=== PATIENT | female | born 1950 | race Caucasian/White ===

== ENCOUNTER 2018-02-04 14:48 | Inpatient (IN) | payer MEDICARE, OTHER, SELFPAY ==
[2018-02-04 14:49] VITALS: BP 133/80; PULSE 98; RESP 16; TEMP 36.8; O2SAT 98; BMI 31.1
--- NOTE | 2018-02-04 15:10 | RAD_ITS ---
STUDY: X-RAY - RIGHT FOOT CLINICAL: Female, 67 years old. Soft tissue wound involving the first metatarsophalangeal joint. TECHNIQUE: 3 view(s) of the foot. COMPARISON: None. FINDINGS: There is a plantar calcaneal spur. Normal visualized subtalar, talonavicular, calcaneocuboid, tarsal and tarsometatarsal articulations. Normal metatarsi. Normal metatarsophalangeal joint of the great toe. Normal tibial and fibular sesamoid bones. Normal interphalangeal joint of the great toe. Normal phalanges of the great toe. Normal second through fifth metatarsophalangeal joints. Normal interphalangeal joints and phalanges of the lesser toes. Soft tissue swelling overlying the medial aspect of the proximal phalanx of the great toe and dorsal aspect of the foot.. RAD/Foot min 3 Views IMPRESSION: Soft tissue swelling overlying the medial aspect of the proximal phalanx of the great toe and dorsal aspect of the foot. Electronically Signed: Mack Browne MD at 16:07 EDT Tel [phone], Service support ,
--- NOTE | 2018-02-04 15:14 | ED.RN ---
REDDNESS TO RT GREAT TOE YESTERDAY. THIS MORNING TOE SWOLLEN AND SORE.
[2018-02-04 15:44] LABS: Absolute Neutrophil Count 8.3 X10^3/uL (2.0-7.7); Basophil# 0.01 X10^3/uL; Basophil% 0.1 % (0-1); Hematocrit 36.9 % (37-47); Lymphocyte % 10.5 % (19-41); Mean Corp Hgb Conc 29.8 g/gl (32-36); Mean Corpuscular Hgb 24.6 pg (27.0-32.0); Mean Corpuscular Volume 82.4 fL (81-99); Mean Platelet Vol. 8.3 fl (6.2-12.0); Monocyte# 1.04 X10^3/uL; Monocyte% 9.9 % (0-10); Neutrophil # 8.25 X10^3/uL (2.7-7.7); Neutrophil % 78.3 % (47-70); Platelet Count 312 K/mm3 (150-450); RBC Distribution Width CV 15.8 % (11.6-14.6); RBC Distribution Width SD 47.7 fl (35.1-43.9); Red Blood Count 4.48 M/mm3 (4.2-5.4); White Blood Count 10.5 K/mm3 (4.4-11.0)
[2018-02-04 15:54] LABS: Anion Gap 7 (5-15); BUN 12 mg/dL (7-18); BUN/Creat Ratio 16.1 RATIO (10-20); Calcium,Total 9.3 mg/dL (8.5-10.1); Chloride 98 mmol/L (98-107); Creatinine, Serum 0.74 mg/dL (0.55-1.02); EST Glomerular Filtration Rate 82 mL/min (>60); Est Glom Filt Rate - Afr Amer 100 mL/min (>60); Estimated Creatinine Clearance 42.59 ml/min; Glucose 198 mg/dL (74-106); Sodium Level 136 mmol/L (136-145)
[2018-02-04 16:07] LABS: POSITIVE COUNT NO; POSITIVE DIFFERENTIAL NO; POSITIVE MORPHOLOGY NO
--- NOTE | 2018-02-04 16:25 | ED.VISSUMM ---
- ER Visit Summary Date of Service: 02/04/18 Chief Complaint: Right foot redness and pain History of Present Illness: The patient is a 67 F diabetic female who presents with redness swelling and pain of her right foot. She first noticed it yesterday but it is significantly worse today. She has noticed redness pain and swelling over her right foot at the base of the great toe. She has also noted some mild redness overlying the left foot at the base of the great toe as well as over the left elbow. No history of prior similar symptoms. She denies any systemic symptoms such as fevers nausea vomiting diarrhea. She does not recall any injuries. No history of gout. Physical Examination: Afebrile vitals are stable Moist mucous membranes Heart regular rate and rhythm Lungs are clear Abdomen soft Patient has bilateral symmetric pedal edema she has palpable dorsalis pedis pulses there is significant erythema overlying the right first MTP joint and an area of fluctuance concerning for abscess over the medial side of the right great toe and first MTP she does have good short arc range of motion There is mild erythema over the medial left foot and first MTP as well with mild tenderness but active full range of motion brisk capillary refill Mild erythema over the left elbow active full range of motion without pain no swelling Normal right upper extremity Test Results: Laboratory studies notable for CRP of 65.8. White blood cell count normal. ESR and uric acid are pending at the time of this dictation. Right foot x-ray shows soft tissue swelling of the medial side of the proximal phalanx of the great toe and dorsum of the foot Emergency Department Course and Treatment: Patient has a polyarthritis. Given her exam findings at the right first MTP I am concerned for possible septic arthritis. The patient was empirically treated with Zosyn. Cultures were also obtained. I spoke to Dr. Hammond, podiatry ultrasound sonographer who will see the patient in consult and patient will be admitted to the hospitalist service. Treatment Plan: [] Disposition: Admit Impression: Polyarthritis Cellulitis right foot Possible septic arthritis of right first MTP This note was generated with [employer] dictation software. It may contain incorrect words, spelling, and punctuation that were not noted in review of the chart prior to signing ED Disposition - Plan for ED Patient: Chief Complaint: Wound Referrals: Baron Pike Chi, MD [Primary Care Provider] -
[2018-02-04 16:26] LABS: Erythrocyte Sedimentation Rate 42 mm/hr (0-30)
--- NOTE | 2018-02-04 16:28 | PCM.HP.STD ---
Problem List (1) Infectious arthritis Status: Acute (2) Obesity (BMI 30.0-34.9) Status: Chronic (3) ELDER (obstructive sleep apnea) Status: Chronic (4) COPD (chronic obstructive pulmonary disease) Status: Chronic Qualifiers: COPD type: unspecified COPD Qualified Code(s): J44.9 - Chronic obstructive pulmonary disease, unspecified (5) Neuropathic pain Status: Chronic (6) Allergic rhinitis Status: Chronic Qualifiers: Allergic rhinitis trigger: unspecified Allergic rhinitis seasonality: unspecified seasonality Qualified Code(s): J30.9 - Allergic rhinitis, unspecified (7) Asthma Status: Chronic Qualifiers: Asthma severity: unspecified severity Asthma persistence: unspecified Asthma complication type: unspecified Qualified Code(s): J45.909 - Unspecified asthma, uncomplicated (8) Osteoarthritis Status: Chronic Qualifiers: Osteoarthritis location: unspecified site Osteoarthritis type: unspecified Qualified Code(s): M19.90 - Unspecified osteoarthritis, unspecified site (9) Hyperlipidemia Status: Chronic Qualifiers: Hyperlipidemia type: unspecified Qualified Code(s): E78.5 - Hyperlipidemia, unspecified (10) Hypertension Status: Chronic Qualifiers: Hypertension type: essential hypertension Qualified Code(s): I10 - Essential (primary) hypertension (11) Type 2 diabetes mellitus Status: Chronic Qualifiers: 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: with punch press operator use Diabetes mellitus complication status: with unspecified complications Qualified Code(s): E11.8 - Type 2 diabetes mellitus with unspecified complications; Z79.4 - transaction processor (current) use of insulin History of Present Illness Date of Admission: 02/04/18 Chief Complaint: BL 1st MTP redness, pain, edema, L elbow pain The patient is a 67 y/o F w/ PMHx: Obesity, Chronic COPD/Asthma, HTN, HLD, Allergic Rhinitis, ELDER, GERD, Tobacco use who presents to the [facility] ED on 02/04/18 with history of onset over the last 48 hours of initially R 1st MTP edema, pain, redness and mildly fluctuant region followed by onset L 1st MTP redness, pain, edema in addition to L elbow pain although no associated redness or marked edema without fever or chills. In the ED work-up included T 98.3, heart rate 98, BP 133/80, respiratory rate 16, 98% on room air, CBC with WBC 10.5, hemoglobin 11, platelet 312 with left shift, ESR 42, BMP with glucose 198, CRP 65.8, blood culture ?2 pending per ED, Plain film of the foot with soft tissue edema overlying the medial aspect of the proximal phalanx of the great toe and dorsal aspect of the foot. In the ED patient administered Zosyn therapy. In the ED podiatry consulted and planned in ED aspiration of R 1st MTP and I+D of fluctuant region. Past Medical History Past Medical History (Chronic Problems): Chronic Problems (Last Reviewed 11/22/17 @ 13:19 by Sherie Alves) Obesity (BMI 30.0-34.9) (Chronic) HERNANDEZ (dyspnea on exertion) (Chronic) ELDER (obstructive sleep apnea) (Chronic) COPD (chronic obstructive pulmonary disease) (Chronic) Neuropathic pain (Chronic) Allergic rhinitis (Chronic) Asthma (Chronic) Mild asthma (Chronic) Osteoarthritis (Chronic) Hyperlipidemia (Chronic) Hypertension (Chronic) Type 2 diabetes mellitus (Chronic) Allergies No Known Allergies Allergy (Verified 02/04/18 14:51) Home Medications: Ambulatory Orders Medication Instructions Recorded Atorvastatin Calcium [Lipitor] 80 mg PO QHS 01/18/17 Cyanocobalamin [Vitamin B12] 1,000 mcg PO DAILY@0800 01/18/17 Estropipate [Ogen (G)] 0.75 mg PO DAILY 01/18/17 Lisinopril [Prinivil] 10 mg PO DAILY 01/18/17 Montelukast [Singulair] 10 mg PO DAILY 01/18/17 Triamterene 37.5MG/Hctz 25MG 1 cap PO DAILY 01/18/17 [Dyazide (G)] Verapamil HCl [Verapamil ER] 240 mg PO DAILY 01/18/17 gabapentin 300 mg capsule 600 mg PO TID cap 08/23/17 metformin 1,000 mg tablet 1,000 mg PO BIDCM tab 08/23/17 multivitamin tablet 1 tab PO QAM 08/23/17 Glimepiride [Amaryl] 4 mg PO BID 09/18/17 Hydrocodone/Acetaminophen [[place] 1 each PO BID 09/18/17 5-325 Tablet] Loratadine 10 mg PO DAILY 09/18/17 Ibuprofen [Motrin] 800 mg PO TID PRN PRN 02/04/18 Lidocaine [Lidoderm Patch] 1 patch TRANSDERM. DAILY 02/04/18 Methenamine Hippurate 1 tab PO QHS 02/04/18 Novolin N 35 - 40 units SQ DINNER 02/04/18 Omeprazole [Omeprazole] 20 mg PO DAILY 02/04/18 Victoza 1.2 units SQ BREAKFAST 02/04/18 Surgical History: - - Hysterectomy, tonsillectomy, appendectomy, BLTL. 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 Tobacco Use: Non-smoker Alcohol: None Drugs: None - *Family History Maternal History Items: Diabetes, Pulmonary Disease Paternal History Items: - - Patient notes father with possible history of Crohn's disease. Sibling History Items: Diabetes, Heart Disease, - - ELDER Review of Systems Constitutional: Reports: Malaise, Weakness, Fatigue. Denies: Chills, Fever, Weight Change HEENT: Denies: Head Aches, Sinus Congestion, Sinus Drainage Cardiovascular: Denies: Chest Pain, Palpitations Respiratory: Denies: Cough, Shortness of breath at rest, Sputum production Gastrointestinal: Denies: Abdominal Pain, Nausea, Vomiting Genitourinary: Denies: Dysuria Musculoskeletal: Reports: Arm Pain, Foot Pain, Joint stiffness, Joint swelling, Joint Tenderness. Denies: Joint Pain Skin: Reports: Skin Changes. Denies: Rash, Wounds Neurological: Denies: Numbness, Tingling, Focal weakness Psychiatric: Denies: Anxiety, Depression, Homicidal Ideations, Suicidal Ideations Hematologic/ Lymphatic: Denies: Easy Bruising, Easy Bleeding VTE Information - Inpt Only VTE Present on Admission: No VTE Mechan Device Prophylaxis: SCD's VTE Pharm Prophylaxis ordered?: Yes Patient Problems: Active and Suspected Problems (Last Reviewed 11/22/17 @ 13:19 by Sherie Alves) Infectious arthritis (Acute) Subjective: Seated upright in the ED bed, ongoing pain to the extremities. Objective: Physical Examination: General: awake, alert, oriented x 3 and cooperative, seated upright in the ED bed in no apparent distress. Skin: normal color, turgor, no icterus, cyanosis except BL, 1st MTP redness, edema, TTP, R>L, fluctuant region over the R 1st MTP, extremity primarily upper diffuse various staged ecchymoses. HEENT: AT/NC, EOMI, PERRLA, MMM, no carotid bruits or JVD noted. Lungs: CTA bilaterally, moderate effort, mild decrease BL bases, no rales, ronchi or wheezing. Heart: Regular rate and rhythm; no gallop, rub audible. Abdomen: soft, obese, NTTP, ND, normal BS, no HSM. Extremities: no cyanosis, clubbing, see skin, 2+ edema, BL LE ankle to distal barboza, R>L, L elbow TTP and movement, no redness or edema or fluctuance. Neurological: patient awake, alert, oriented x 3; cognitive function intact; pupils equally reactive to light and accomodation; cranial nerves II-XII grossly normal, moving all 4 extremities, no focal deficits, strength moderately globally decreased to severely globally decreased secondary to acute presentation. Psychiatric: affect appears normal, no acute evidence of depressive or anxiety feelings. - Physical Exam Vital Signs Temp Pulse Resp BP Pulse Ox 98.3 F 98 16 133/80 H 98 02/04/18 14:49 02/04/18 14:49 02/04/18 14:49 02/04/18 14:49 02/04/18 14:49 Oxygen Delivery Method Room Air Weight: 170 lb Body Mass Index (BMI) 31.1 Laboratory Tests Past 24 Hrs 02/04/18 02/04/18 15:20 15:20 WBC 10.5 RBC 4.48 Hgb 11.0 L Hct 36.9 L MCV 82.4 MCH 24.6 L MCHC 29.8 L RDW 15.8 H RDW Differential 47.7 H Plt Count 312 MPV 8.3 Immature Gran % (Auto) 0.200 Neut % (Auto) 78.3 H Lymph % (Auto) 10.5 L Wallace % (Auto) 9.9 Eos % (Auto) 1.0 Baso % (Auto) 0.1 Absolute Neuts (auto) 8.3 H Absolute Lymphs (auto) 1.10 Total Counted Not Reportable ESR 42 H Sodium 136 Potassium 4.0 Chloride 98 Carbon Dioxide 31.0 Anion Gap 7 BUN 12 Creatinine 0.74 Estim Creat Clear Calc 42.59 Est GFR (MDRD) Af Amer 100 Est GFR (MDRD) Non-Af 82 BUN/Creatinine Ratio 16.1 Glucose 198 H Calcium 9.3 C-React Prot Ext Range 65.80 H Assessment/Plan Active and Suspected Problems (Last Reviewed 11/22/17 @ 13:19 by Sherie Alves) Infectious arthritis (Acute) The patient is a 67 y/o F w/ PMHx: Obesity, Chronic COPD/Asthma, HTN, HLD, Allergic Rhinitis, ELDER, GERD, Tobacco use who presents to the [facility] ED on 02/04/18 with history of onset over the last 48 hours of initially R 1st MTP edema, pain, redness and mildly fluctuant region followed by onset L 1st MTP redness, pain, edema in addition to L elbow pain although no associated redness or marked edema without fever or chills. (1) Infectious Arthritis, RLE R 1st MTP, L 1st MTP, L Elbow Edema, Redness, Pain complicated by Diabetes mellitus type II, Possible Osteomyelitis: Elevated ESR, CRP, plain film with edema. Pending podiatry aspiration and I+D fluctuant region. Will admit to [facility], maintain on IV vanc and zosyn, requested podiatry to also obtain Wound Cx/MRSA, plan repeat CBC in AM, continue affected extremity elevation above heart when seated and in bed, monitor erythema outline with VS checks, obtain Wound RN consultation, obtain Dr. Hammond consultation, obtain ID consultation, obtain DVT US BL LE. Uric acid pending. (2) Hypertension: Continue home regimen including lisinopril, triamterene, hydrochlorothiazide, verapamil, PRN hydralazine. (3) Hyperlipidemia: Continue home statin regimen. (4) Diabetes mellitus type II w/ neuropathy: Hold oral home regimen, continue home insulin regimen, ADA diet, accu checks w/ ISS, continue home gabapentin regimen, HgbA1c pending. (5) Chronic COPD/Asthma: ATC duonebs, PRN albuterol, HOB, IS parameters, continue home Singulair regimen. (6) Hx Tobacco Abuse: Encouraged continued cessation. (7) Obesity: Weight loss and lifestyle changes encouraged. (8) ELDER: CPAP nightly. (9) DVT Prophylaxis: SCDs, lovenox. Code Visit Inpatient E&M: 53707 Init Hosp L3
--- NOTE | 2018-02-04 16:29 | ED.DCSUM_ITS ---
- ER Visit Summary Date of Service: 02/04/18 Chief Complaint: Right foot redness and pain History of Present Illness: The patient is a 67 F diabetic female who presents with redness swelling and pain of her right foot. She first noticed it yesterday but it is significantly worse today. She has noticed redness pain and swelling over her right foot at the base of the great toe. She has also noted some mild redness overlying the left foot at the base of the great toe as well as over the left elbow. No history of prior similar symptoms. She denies any systemic symptoms such as fevers nausea vomiting diarrhea. She does not recall any injuries. No history of gout. Physical Examination: Afebrile vitals are stable Moist mucous membranes Heart regular rate and rhythm Lungs are clear Abdomen soft Patient has bilateral symmetric pedal edema she has palpable dorsalis pedis pulses there is significant erythema overlying the right first MTP joint and an area of fluctuance concerning for abscess over the medial side of the right great toe and first MTP she does have good short arc range of motion There is mild erythema over the medial left foot and first MTP as well with mild tenderness but active full range of motion brisk capillary refill Mild erythema over the left elbow active full range of motion without pain no swelling Normal right upper extremity Test Results: Laboratory studies notable for CRP of 65.8. White blood cell count normal. ESR and uric acid are pending at the time of this dictation. Right foot x-ray shows soft tissue swelling of the medial side of the proximal phalanx of the great toe and dorsum of the foot Emergency Department Course and Treatment: Patient has a polyarthritis. Given her exam findings at the right first MTP I am concerned for possible septic arthritis. The patient was empirically treated with Zosyn. Cultures were also obtained. I spoke to Dr. Hammond, podiatry youth probation officer who will see the patient in consult and patient will be admitted to the hospitalist service. Treatment Plan: [] Disposition: Admit Impression: Polyarthritis Cellulitis right foot Possible septic arthritis of right first MTP This note was generated with [employer] dictation software. It may contain incorrect words, spelling, and punctuation that were not noted in review of the chart prior to signing ED Disposition - Plan for ED Patient: Chief Complaint: Wound Referrals: Baron Pike Chi, MD [Primary Care Provider] -
--- NOTE | 2018-02-04 16:45 | HP.PCM_ITS ---
Problem List (1) Infectious arthritis Status: Acute (2) Obesity (BMI 30.0-34.9) Status: Chronic (3) ELDER (obstructive sleep apnea) Status: Chronic (4) COPD (chronic obstructive pulmonary disease) Status: Chronic Qualifiers: COPD type: unspecified COPD Qualified Code(s): J44.9 - Chronic obstructive pulmonary disease, unspecified (5) Neuropathic pain Status: Chronic (6) Allergic rhinitis Status: Chronic Qualifiers: Allergic rhinitis trigger: unspecified Allergic rhinitis seasonality: unspecified seasonality Qualified Code(s): J30.9 - Allergic rhinitis, unspecified (7) Asthma Status: Chronic Qualifiers: Asthma severity: unspecified severity Asthma persistence: unspecified Asthma complication type: unspecified Qualified Code(s): J45.909 - Unspecified asthma, uncomplicated (8) Osteoarthritis Status: Chronic Qualifiers: Osteoarthritis location: unspecified site Osteoarthritis type: unspecified Qualified Code(s): M19.90 - Unspecified osteoarthritis, unspecified site (9) Hyperlipidemia Status: Chronic Qualifiers: Hyperlipidemia type: unspecified Qualified Code(s): E78.5 - Hyperlipidemia , unspecified (10) Hypertension Status: Chronic Qualifiers: Hypertension type: essential hypertension Qualified Code(s): I10 - Essential (primary) hypertension (11) Type 2 diabetes mellitus Status: Chronic Qualifiers: Diabetes mellitus mcc insulin use: with mcc use Diabetes mellitus complication status: with unspecified complications Qualified Code(s) : E11.8 - Type 2 diabetes mellitus with unspecified complications; 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 In the ED work-up included T 98.3, heart rate 98 , BP 133/80, respiratory rate 16, 98% on room air, CBC with WBC 10.5, hemoglobin 11, platelet 312 with left shift, ESR 42, BMP with glucose 198, CRP 65.8, blood culture ?2 pending per ED, Plain film of the foot with soft tissue edema overlying the medial aspect of the proximal phalanx of the great toe and dorsal aspect of the foot. In the ED patient administered Zosyn therapy. In the ED podiatry consulted and planned in ED aspiration of R 1st MTP and I+D of fluctuant region. Past Medical History Past Medical History (Chronic Problems): Chronic Problems (Last Reviewed 11/22/17 @ 13:19 by Sherie Alves) Obesity (BMI 30.0-34.9) (Chronic) HERNANDEZ (dyspnea on exertion) (Chronic) ELDER (obstructive sleep apnea) (Chronic) COPD (chronic obstructive pulmonary disease) (Chronic) Neuropathic pain (Chronic) Allergic rhinitis (Chronic) Asthma (Chronic) Mild asthma (Chronic) Osteoarthritis (Chronic) Hyperlipidemia (Chronic) Hypertension (Chronic) Type 2 diabetes mellitus (Chronic) Allergies No Known Allergies Allergy (Verified 02/04/18 14:51) Home Medications: Ambulatory Orders Medication Instructions Recorded Atorvastatin Calcium [Lipitor] 80 mg PO QHS 01/18/17 Cyanocobalamin [Vitamin B12] 1,000 mcg PO DAILY@0800 01/18/17 Estropipate [Ogen (G)] 0.75 mg PO DAILY 01/18/17 Lisinopril [Prinivil] 10 mg PO DAILY 01/18/17 Montelukast [Singulair] 10 mg PO DAILY 01/18/17 Triamterene 37.5MG/Hctz 25MG 1 cap PO DAILY 01/18/17 [Dyazide (G)] Verapamil HCl [Verapamil ER] 240 mg PO DAILY 01/18/17 gabapentin 300 mg capsule 600 mg PO TID cap 08/23/17 metformin 1,000 mg tablet 1,000 mg PO BIDCM tab 08/23/17 multivitamin tablet 1 tab PO QAM 08/23/17 Glimepiride [Amaryl] 4 mg PO BID 09/18/17 Hydrocodone/Acetaminophen [Holbrook 1 each PO BID 09/18/17 5-325 Tablet] Loratadine 10 mg PO DAILY 09/18/17 Ibuprofen [Motrin] 800 mg PO TID PRN PRN 02/04/18 Lidocaine [Lidoderm Patch] 1 patch TRANSDERM. DAILY 02/04/18 Methenamine Hippurate 1 tab PO QHS 02/04/18 Novolin N 35 - 40 units SQ DINNER 02/04/18 Omeprazole [Omeprazole] 20 mg PO DAILY 02/04/18 Victoza 1.2 units SQ BREAKFAST 02/04/18 Surgical History: - - Hysterectomy, tonsillectomy, appendectomy, BLTL. Psychiatric History: No pertinent psych hx RN INFORMATICS History: No pertinent RN INFORMATICS history Lives: Alone Smoking Status: Former smoker - Patient quit in the mid , at least one pack per day since youth prior to this. Tobacco Use: Non-smoker Alcohol: None Drugs: None - *Family History Maternal History Items: Diabetes, Pulmonary Disease Paternal History Items: - - Patient notes father with possible history of Crohn's disease. Sibling History Items: Diabetes, Heart Disease, - - ELDER Review of Systems Constitutional: Reports: Malaise, Weakness, Fatigue. Denies: Chills, Fever, Weight Change HEENT: Denies: Head Aches, Sinus Congestion, Sinus Drainage Cardiovascular: Denies: Chest Pain, Palpitations Respiratory: Denies: Cough, Shortness of breath at rest, Sputum production Gastrointestinal: Denies: Abdominal Pain, Nausea, Vomiting Genitourinary: Denies: Dysuria Musculoskeletal: Reports: Arm Pain, Foot Pain, Joint stiffness, Joint swelling, Joint Tenderness. Denies: Joint Pain Skin: Reports: Skin Changes. Denies: Rash, Wounds Neurological: Denies: Numbness, Tingling, Focal weakness Psychiatric: Denies: Anxiety, Depression, Homicidal Ideations, Suicidal Ideations Hematologic/ Lymphatic: Denies: Easy Bruising, Easy Bleeding VTE Information - Inpt Only VTE Present on Admission: No VTE Mechan Device Prophylaxis: SCD's VTE Pharm Prophylaxis ordered?: Yes Patient Problems: Active and Suspected Problems (Last Reviewed 11/22/17 @ 13:19 by Sherie Alves ) Infectious arthritis (Acute) Subjective: Seated upright in the ED bed, ongoing pain to the extremities. Objective: Physical Examination: General: awake, alert, oriented x 3 and cooperative, seated upright in the ED bed in no apparent distress. Skin: normal color, turgor, no icterus, cyanosis except BL, 1st MTP redness, edema, TTP, R>L, fluctuant region over the R 1st MTP, extremity primarily upper diffuse various staged ecchymoses. HEENT: AT/NC, EOMI, PERRLA, MMM, no carotid bruits or JVD noted. Lungs: CTA bilaterally, moderate effort, mild decrease BL bases, no rales, ronchi or wheezing. Heart: Regular rate and rhythm; no gallop, rub audible. Abdomen: soft, obese, NTTP, ND, normal BS, no HSM. Extremities: no cyanosis, clubbing, see skin, 2+ edema, BL LE ankle to distal barboza, R>L, L elbow TTP and movement, no redness or edema or fluctuance. Neurological: patient awake, alert, oriented x 3; cognitive function intact; pupils equally reactive to light and accomodation; cranial nerves II-XII grossly normal, moving all 4 extremities, no focal deficits, strength moderately globally decreased to severely globally decreased secondary to acute presentation. Psychiatric: affect appears normal, no acute evidence of depressive or anxiety feelings. - Physical Exam Vital Signs Temp Pulse Resp BP Pulse Ox 98.3 F 98 16 133/80 H 98 02/04/18 14:49 02/04/18 14:49 02/04/18 14:49 02/04/18 14:49 02/04/18 14:49 Oxygen Delivery Method Room Air Weight: 170 lb Body Mass Index (BMI) 31.1 Laboratory Tests Past 24 Hrs 02/04/18 02/04/18 15:20 15:20 WBC 10.5 RBC 4.48 Hgb 11.0 L Hct 36.9 L MCV 82.4 MCH 24.6 L MCHC 29.8 L RDW 15.8 H RDW Differential 47.7 H Plt Count 312 MPV 8.3 Immature Gran % (Auto) 0.200 Neut % (Auto) 78.3 H Lymph % (Auto) 10.5 L Cole % (Auto) 9.9 Eos % (Auto) 1.0 Baso % (Auto) 0.1 Absolute Neuts (auto) 8.3 H Absolute Lymphs (auto) 1.10 Total Counted Not Reportable ESR 42 H Sodium 136 Potassium 4.0 Chloride 98 Carbon Dioxide 31.0 Anion Gap 7 BUN 12 Creatinine 0.74 Estim Creat Clear Calc 42.59 Est GFR (MDRD) Af Amer 100 Est GFR (MDRD) Non-Af 82 BUN/Creatinine Ratio 16.1 Glucose 198 H Calcium 9.3 C-React Prot Ext Range 65.80 H Assessment/Plan Active and Suspected Problems (Last Reviewed 11/22/17 @ 13:19 by Sherie Alves ) Infectious arthritis (Acute) The patient is a 67 y/o F w/ PMHx: Obesity, Chronic COPD/Asthma, HTN, HLD, Allergic Rhinitis, ELDER, GERD, Tobacco use who presents to the [facility] ED on 02/04/18 with history of onset over the last 48 hours of initially R 1st MTP edema, pain , redness and mildly fluctuant region followed by onset L 1st MTP redness, pain , edema in addition to L elbow pain although no associated redness or marked edema without fever or chills. (1) Infectious Arthritis, RLE R 1st MTP, L 1st MTP, L Elbow Edema, Redness, Pain complicated by Diabetes mellitus type II, Possible Osteomyelitis: Elevated ESR, CRP, plain film with edema. Pending podiatry aspiration and I+D fluctuant region. Will admit to [facility], maintain on IV vanc and zosyn, requested podiatry to also obtain Wound Cx/MRSA, plan repeat CBC in AM, continue affected extremity elevation above heart when seated and in bed, monitor erythema outline with VS checks, obtain Wound RN consultation, obtain Dr. Hammond consultation, obtain ID consultation, obtain DVT US BL LE. Uric acid pending. (2) Hypertension: Continue home regimen including lisinopril, triamterene, hydrochlorothiazide, verapamil, PRN hydralazine. (3) Hyperlipidemia: Continue home statin regimen. (4) Diabetes mellitus type II w/ neuropathy: Hold oral home regimen, continue home insulin regimen, ADA diet, accu checks w/ ISS, continue home gabapentin regimen, HgbA1c pending. (5) Chronic COPD/Asthma: ATC duonebs, PRN albuterol, HOB, IS parameters, continue home Singulair regimen. (6) Hx Tobacco Abuse: Encouraged continued cessation. (7) Obesity: Weight loss and lifestyle changes encouraged. (8) ELDER: CPAP nightly. (9) DVT Prophylaxis: SCDs, lovenox. Code Visit Inpatient E&M: 17728 Init Hosp L3
[2018-02-04 16:55] LABS: Uric Acid 3.6 mg/dL (2.6-6.0)
--- NOTE | 2018-02-04 18:27 | PN_ITS ---
Patient Problems: Active and Suspected Problems (Last Reviewed 11/22/17 @ 13:19 by Sherie Alves ) Type 2 diabetes mellitus (Acute) Abscess of toe of right foot (Acute) Cellulitis of right foot (Acute) Pain in right toe(s) (Acute) Subjective: This 67 year old diabetic female was consulted to podiatry for red, swollen, and painful right great first toe. Patient's son is in room as well. Patient says she noticed her right great toe becoming slightly red and slightly painful yesterday. However, she says the area got much more red and painful today. She denies any injury to the area or any other history of any wounds or blisters to the area. She does relate she has had gout in her hand in the past, but never in her feet. She has not done anything to treat on her own yet other than take some ibuprofen. She says she has never had anything like this happen in the past either. She denies any feelings currently of nausea, vomiting, fever, or chills. - Physical Exam General: Alert, Oriented x3, Cooperative Extremities: Capillary Refill Less than 3 Seconds - to distal digits of the right foot, No Calf Tenderness - negative gentry and kazt sign, Edema - slight pitting lower extremity edema noted, Peripheral Pulses Normal - DP pulse palpable and PT pulse faintly palpable due to perimalleolar edema Skin: - - Cellulitis to skin overlying proximal half of right hallux and distal 1st metatarsal. There appears to be small area of fluctuance overlying the medial proximal phalanx of the hallux. There are no visible open wounds or ulcers prior to bedside i&d. No increase in warmth appreciated. Musculoskeletal: Tenderness - to cellulitis area and with range of motion of right hallux Neurological: Sensory exam intact to light touch and pain - to lower extremity Psych/Mental Status: Normal Affect, Appropriate Vital Signs Temp Pulse Resp BP Pulse Ox 98.3 F 98 16 133/80 H 98 02/04/18 14:49 02/04/18 14:49 02/04/18 14:49 02/04/18 14:49 02/04/18 14:49 Medical Necessity - Tobacco Use Smoking Status: Former smoker - Patient quit in the mid , at least one pack per day since youth prior to this. Tobacco Use: Non-smoker Assessment/Plan Active and Suspected Problems (Last Reviewed 11/22/17 @ 13:19 by Sherie Alves ) Type 2 diabetes mellitus (Acute) Abscess of toe of right foot (Acute) Cellulitis of right foot (Acute) Pain in right toe(s) (Acute) Abscess right great toe Cellulitis right toe/foot DM2 Pain right great toe/foot Patient was carefully examined and evaluated in the ER with son by her side. Vital signs are currently stable and the patient does not have a raised white count currently. ESR is 42 and CRP is 65.8. Uric acid is within the nomal range. After verbal consent was obtained by the patient, a fulton block was performed using 10 mL of 1% lidocaine plain around the 1st ray. Once complete, the first MPJ was aspirated using a 20 cc syringe. Aerobic and anaerobic cultures were sent from some of the joint fluid for further evaluation as well as MRSA pcr. The remaining fluid in the syringe was then sent for crystal evaluation. Next, attention was directed to the medial area over the fluctuant area overlying the medial proximal phalanx of the hallux. A small stab incision was made with an 11 blade. Some purulence was expressed from the area. Aerobic and anaerobic cultures were taken of this as well and also sent for further evaluation as well as MRSA pcr. The area was then carefully flushed with normal sterile saline after all of the purulence had been expressed. Next the area was packed with 1/4 '' iodoform packing, followed by a dry sterile dressing consisting of gauze and aaron. The area of cellulitis was marked prior to dressing being applied in order to better monitor. X-rays taken of the right foot showed only soft tissue swelling to the area and no signs of soft tissue emphysema. This patient was discussed with both the ER physician as well as the hospitalist. Patient is going to be admitted for further evaluation and IV antibiotics. Hospitalist says she will consult infectious disease, their input is appreciated. Will continue to monitor for culture results. Podiatry will continue to follow this patient while in house. Please contact with any questions or concerns.
--- NOTE | 2018-02-04 18:41 | VDLE_ITS ---
Reason For Study: swelling RIGHT LEFT GSV is normal. GSV is normal. CFV is compressible, spontaneous, phasic, CFV is compressible, spontaneous, phasic, competent and demonstrates normal competent, and demonstrates normal augmentation. augmentation. FV is compressible, spontaneous, phasic, FV is compressible, spontaneous, phasic, competent and demonstrates normal competent and demonstrates normal augmentation. augmentation. POP V is compressible, spontaneous, phasic, POP V is compressible, spontaneous, phasic, competent and demonstrates normal competent and demonstrates normal augmentation. augmentation. T/P Trunk is compressible. T/P Trunk is compressible. PTV is compressible. PTV is compressible. RT PerV is compressible. LT PerV is compressible. Procedure Exam performed portable in patient room. The exam was diagnostic. A preliminary report was called and/or faxed to Laureen WOLFF. Interpretation Summary No evidence for acute deep venous thrombosis bilateral lower extremities with patent and compressible bilateral great saphenous veins. Ordering Physician: Milena Nielson Performed By: Florin Salcedo RVT
[2018-02-04 19:00] LABS: Bedside Glucose 119 mg/dL (70-110)
[2018-02-04 19:03] LABS: Body Fluid QC Type(s) BF2Q
[2018-02-04 19:04] LABS: Source- Body Fluid SYNOVIAL
[2018-02-04 19:09] VITALS: BMI 31.1
[2018-02-04 19:17] VITALS: BMI 30.1
[2018-02-04 19:17] LABS: Magnesium 1.3 mg/dL (1.6-2.6)
[2018-02-04 19:18] VITALS: BP 166/87; PULSE 100; RESP 18; TEMP 36.8; O2SAT 94
[2018-02-04 19:31] VITALS: PULSE 91; RESP 18
[2018-02-04 19:31] LABS: Hemoglobin A1c 8.9 % (4.2-6.3)
[2018-02-04] MEDS: Ipratropium/Albuterol Sulfate 3 ML AMPUL.NEB INHALATION (19:31)
[2018-02-04 20:07] LABS: M R Staph aureus DNA By PCR Negative (Negative); Staph aureus DNA By PCR NEGATIVE (Negative)
[2018-02-04 20:08] LABS: Probe Check PASS; Specimen Processing Control PASS
[2018-02-04] MEDS: 0.9% Normal Saline 1,000 ML 100 ML IV (20:20)
[2018-02-04 20:32] VITALS: BP 137/73; PULSE 98; RESP 16; TEMP 36.9; O2SAT 95
[2018-02-04] MEDS: Morphine 4 MG/ML Syringe IV (20:40)
[2018-02-04] MEDS: Piperacil/Tazobactam 3.375 GM/50 ML ML IV (22:21)
[2018-02-04] MEDS: Atorvastatin Calcium 80 MG Tablet PO (22:21)
--- NOTE | 2018-02-04 22:35 | NURSING ---
BG 64, 4oz and OJ given and peanut butter and crackers given at this time, will recheck BG.
[2018-02-04 22:36] LABS: Bedside Glucose 64 mg/dL (70-110)
[2018-02-04 23:06] LABS: Bedside Glucose 89 mg/dL (70-110)
[2018-02-05] VITALS (26 sets, daily range): BP systolic 98–153; BP diastolic 58–101; PULSE 85–126; RESP 12–35; TEMP 36.3–37.3; O2SAT 82–100
[2018-02-05] MEDS: HYDROcodone Bitartrate/Apap 5/325 Tablet PO ×2 (02:14→07:59)
[2018-02-05 02:31] LABS: Bedside Glucose 109 mg/dL (70-110)
[2018-02-05] MEDS: Ipratropium/Albuterol Sulfate 3 ML AMPUL.NEB INHALATION ×4 (06:28→23:04)
[2018-02-05] MEDS: Piperacil/Tazobactam 3.375 GM/50 ML ML IV ×3 (06:43→21:27)
[2018-02-05] MEDS: Insulin Lispro 100 UNIT/ML INSULN.PEN SC ×4 (06:44→21:41)
[2018-02-05 06:51] LABS: Bedside Glucose 209 mg/dL (70-110)
[2018-02-05] MEDS: Multivitamins,Therapeutic Tablet 1 TABLET PO (07:58)
[2018-02-05] MEDS: Cyanocobalamin 500 MCG Tablet 1000 MCG PO (07:58)
[2018-02-05] MEDS: Gabapentin 300 MG Capsule 600 MG PO ×3 (07:59→17:20)
[2018-02-05 09:54] LABS: Absolute Neutrophil Count 8.8 X10^3/uL (2.0-7.7); Basophil# 0.02 X10^3/uL; Basophil% 0.2 % (0-1); Differential Indicated SCAN CRITERIA MET; Eosinophil# 0.09 X10^3/uL; Eosinophils% 0.9 % (0-5); Hematocrit 33.7 % (37-47); Hemoglobin 10.2 g/dl (12.0-15.0); Lymphocyte % 5.7 % (19-41); Mean Corp Hgb Conc 30.3 g/gl (32-36); Mean Corpuscular Volume 82.6 fL (81-99); Mean Platelet Vol. 8.3 fl (6.2-12.0); Monocyte# 1.02 X10^3/uL; Monocyte% 9.7 % (0-10); Neutrophil # 8.79 X10^3/uL (2.7-7.7); Neutrophil % 83.2 % (47-70); POSITIVE COUNT NO; POSITIVE DIFFERENTIAL YES; POSITIVE MORPHOLOGY NO; Platelet Count 302 K/mm3 (150-450); RBC Distribution Width CV 15.7 % (11.6-14.6); RBC Distribution Width SD 46.7 fl (35.1-43.9); Red Blood Count 4.08 M/mm3 (4.2-5.4); White Blood Count 10.6 K/mm3 (4.4-11.0)
[2018-02-05] MEDS: Verapamil SR 240 MG Tablet PO (10:01)
[2018-02-05] MEDS: Loratadine 10 MG Tablet PO (10:01)
[2018-02-05] MEDS: Pantoprazole Sodium 40 MG Tablet PO (10:01)
[2018-02-05] MEDS: Lidocaine 5% Patch 1 PATCH TOPICAL (10:01)
[2018-02-05] MEDS: Montelukast 10 MG Tablet PO (10:01)
[2018-02-05] MEDS: Triamterene 37.5MG/Hctz 25MG Capsule 1 CAP PO (10:01)
--- NOTE | 2018-02-05 10:01 | PCM.PROGNOTE ---
Patient Problems: Active and Suspected Problems (Last Reviewed 11/22/17 @ 13:19 by Sherie Alves) Pain in right toe(s) (Acute) Cellulitis of right foot (Acute) Abscess of toe of right foot (Acute) Type 2 diabetes mellitus (Acute) Subjective: This 67 year old diabetic female was seen bedside this morning resting comfortably in her bed after being admitted last evening through the ER for cellulitis of the right hallux and distal medial foot as well as abscess overlying medial aspect of proximal phalanx of the hallux. She says she had no issues though the night. 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 She says she has an appetite and continues to deny any feelings of nausea, vomiting, fever, or chills. - Physical Exam General: Alert, Oriented x3, Cooperative Extremities: Capillary Refill Less than 3 Seconds - to distal digits of the right foot, No Calf Tenderness - negative gentry and katz sign, Edema - slight pitting lower extremity edema noted, Peripheral Pulses Normal - DP pulses palpable and PT pulses faintly palpable due to perimalleolar edema Skin: - - Cellulitis still present today in the same area as last evening, but is not as intense as last evening. The area of cellulitis has not spread over night. No purulence was noted today from the bedside I&D site from last evening. Small amount of drainage appreciated to the dressing. No significant increase in warmth noted. No malodor. Musculoskeletal: Tenderness - to area of cellulitis Neurological: Sensory exam intact to light touch and pain - to lower extremity Psych/Mental Status: Normal Affect, Appropriate Vital Signs Temp Pulse Resp BP Pulse Ox 98.6 F 110 H 18 149/71 H 98 02/05/18 08:30 02/05/18 08:30 02/05/18 08:30 02/05/18 08:30 02/05/18 08:30 Oxygen Flow Rate (L/min) 2 Oxygen Delivery Method Nasal Cannula Weight: 74.8 kg Body Mass Index (BMI) 30.1 Intake and Output for Last 24 Hours 02/03/18 02/04/18 02/05/18 23:59 23:59 23:59 Intake Total 944 / 944 1020 / 1020 Output Total 100 / 100 Balance 944 / 944 920 / 920 Microbiology Past 72 Hours 02/04/18 18:08 Gram Stain - Final Fluid - Bursa Body Fluid Culture - Preliminary No growth-Final to follow 02/04/18 18:08 Gram Stain - Final Wound - Right Foot Wound Culture - Preliminary No growth-Final to follow Laboratory Tests Past 24 Hrs 02/04/18 02/04/18 02/05/18 18:08 18:08 09:30 WBC 10.6 RBC 4.08 L Hgb 10.2 L Hct 33.7 L MCV 82.6 MCH 25.0 L MCHC 30.3 L RDW 15.7 H RDW Differential 46.7 H Plt Count 302 MPV 8.3 Immature Gran % (Auto) 0.300 Neut % (Auto) 83.2 H Lymph % (Auto) 5.7 L Charlotte % (Auto) 9.7 Eos % (Auto) 0.9 Baso % (Auto) 0.2 Absolute Neuts (auto) 8.8 H Absolute Lymphs (auto) 0.60 L Total Counted Pending Fluid Crystals SEE PATH REV Fluid Crystal Source SYNOVIAL Fl Crystal Path Review Will follow S.aureus Protein A PCR NEGATIVE MRSA (PCR) Negative POC Glucose 02/05/18 02/05/18 02/04/18 06:38 02:13 22:58 POC Glucose 209 H 109 89 02/04/18 02/04/18 22:20 18:58 POC Glucose 64 L 119 H Medical Necessity - Tobacco Use Smoking Status: Former smoker Tobacco Use: Cigarettes Assessment/Plan Active and Suspected Problems (Last Reviewed 11/22/17 @ 13:19 by Sherie Alves) Pain in right toe(s) (Acute) Cellulitis of right foot (Acute) Abscess of toe of right foot (Acute) Type 2 diabetes mellitus (Acute) Abscess right great toe Cellulitis right toe/foot DM2 Pain right great toe/foot Patient was carefully examined and evaluated bedside again today. Patient remains afebrile. CBC w/diff was ordered this morning and will monitor for results. ESR was 42 and CRP was 65.8 when tested last evening. Uric acid was within the normal range. Area surrounding right great toe was carefully inspected and evaluated again today. The site was carefully cleansed with normal sterile saline. Next, a small amount of 1/4'' iodoform packing was placed in the site of I&D, followed by adaptic, 4x4s, and kerlix. Aerobic and anaerobic cultures from both the 1st MPJ as well as the small abscess to the medial hallux are still pending. Crystal analysis of the 1st MPJ is pending as well. Patient is currently on Vanc and Zosyn. MRSA pcr negative. Infectious disease is on consult and will monitor for report. Medical management per primary team is appreciated. Podiatry will continue to follow this patient and continue to monitor for results. Please contact with any questions or concerns.
--- NOTE | 2018-02-05 10:04 | NURSING ---
wound photo: right great toe
[2018-02-05 10:28] LABS: Pathologist Review Reviewed
[2018-02-05] MEDS: Lisinopril 10 MG Tablet PO (10:42)
[2018-02-05] MEDS: 0.9% Normal Saline 1,000 ML 100 ML IV ×2 (10:42→21:27)
[2018-02-05 10:51] LABS: Bedside Glucose 284 mg/dL (70-110)
--- NOTE | 2018-02-05 11:19 | PCM.HP.ID ---
Problem List (1) Abscess of toe of right foot Status: Acute Reason for Consult: toe infection Consulted by: Dr. Nielson History of Present Illness: The patient is a 67 year old F with h/o DM and presumed gout in hand in past who presented 02/04 with 2 days of progressive R 1st toe redness, pain, swelling, warmth. No inciting trauma. Pain was severe. No drainage. No h/o MRSA infection. No recent abx. Came to ED, podiatry consulted. Aspiration done and purulent abscess was debrided. No fever, some chills prior to admit. Not feeling too much better this AM. On vanc/zosyn. Full ROS performed and neg except as noted above. - Medical History Past Medical History (Chronic Problems): Chronic Problems (Last Reviewed 11/22/17 @ 13:19 by Sherie Alves) Obesity (BMI 30.0-34.9) (Chronic) HERNANDEZ (dyspnea on exertion) (Chronic) ELDER (obstructive sleep apnea) (Chronic) COPD (chronic obstructive pulmonary disease) (Chronic) Neuropathic pain (Chronic) Allergic rhinitis (Chronic) Asthma (Chronic) Mild asthma (Chronic) Osteoarthritis (Chronic) Hyperlipidemia (Chronic) Hypertension (Chronic) Type 2 diabetes mellitus (Chronic) Allergies/Adverse Reactions: Allergies No Known Allergies Allergy (Verified 02/04/18 14:51) Home Medications: Ambulatory Orders Medication Instructions Recorded Atorvastatin Calcium [Lipitor] 80 mg PO QHS 01/18/17 Cyanocobalamin [Vitamin B12] 1,000 mcg PO DAILY@0800 01/18/17 Estropipate [Ogen (G)] 0.75 mg PO DAILY 01/18/17 Lisinopril [Prinivil] 10 mg PO DAILY 01/18/17 Triamterene 37.5MG/Hctz 25MG 1 cap PO DAILY 01/18/17 [Dyazide (G)] Verapamil HCl [Verapamil ER] 240 mg PO DAILY 01/18/17 gabapentin 300 mg capsule 600 mg PO TID cap 08/23/17 metformin 1,000 mg tablet 1,000 mg PO BIDCM tab 08/23/17 multivitamin tablet 1 tab PO DAILY 08/23/17 Glimepiride [Amaryl] 4 mg PO BID 09/18/17 Hydrocodone/Acetaminophen [[place] 1 each PO BID 09/18/17 5-325 Tablet] Loratadine 10 mg PO DAILY 09/18/17 Ascorbic Acid [Vitamin C] 1,000 mg PO QHS 02/04/18 Ibuprofen [Motrin] 800 mg PO TID PRN PRN 02/04/18 Lidocaine [Lidoderm Patch] 1 patch TRANSDERM. DAILY 02/04/18 Methenamine Hippurate 1 tab PO QHS 02/04/18 Novolin N 35 - 40 units SQ DINNER 02/04/18 Omeprazole [Omeprazole] 20 mg PO DAILY 02/04/18 Victoza 1.2 units SQ BREAKFAST 02/04/18 - Social History SMOKING STATUS:: Former smoker Vital Signs Temp Pulse Resp BP Pulse Ox 98.6 F 110 H 18 149/71 H 98 02/05/18 08:30 02/05/18 08:30 02/05/18 08:30 02/05/18 08:30 02/05/18 08:30 Oxygen Flow Rate (L/min) 2 Oxygen Delivery Method Nasal Cannula Weight: 74.8 kg Body Mass Index (BMI) 30.1 Microbiology Past 72 Hours 02/04/18 18:08 Gram Stain - Final Fluid - Bursa Body Fluid Culture - Preliminary No growth-Final to follow 02/04/18 18:08 Gram Stain - Final Wound - Right Foot Wound Culture - Preliminary No growth-Final to follow Laboratory Tests Past 24 Hrs 02/04/18 02/04/18 02/05/18 18:08 18:08 09:30 WBC 10.6 RBC 4.08 L Hgb 10.2 L Hct 33.7 L MCV 82.6 MCH 25.0 L MCHC 30.3 L RDW 15.7 H RDW Differential 46.7 H Plt Count 302 MPV 8.3 Immature Gran % (Auto) 0.300 Neut % (Auto) 83.2 H Lymph % (Auto) 5.7 L [place] % (Auto) 9.7 Eos % (Auto) 0.9 Baso % (Auto) 0.2 Absolute Neuts (auto) 8.8 H Absolute Lymphs (auto) 0.60 L Total Counted Not Reportable Differential Comment COMMENT Fluid Crystals SEE PATH REV Fluid Crystal Source SYNOVIAL Fl Crystal Path Review Reviewed S.aureus Protein A PCR NEGATIVE MRSA (PCR) Negative - Other Studies Radiology: [] reviewed Other Studies: [] Route of nutrition/ use of supplements: [] Nutritional Intake: [] IV Site: [] Allen Catheter: [] - Physical Exam General: Alert, Oriented x3, Cooperative, No apparent distress HEENT: Atraumatic, PERRLA, EOMI Neck: Supple, No Nodes Lungs: Clear to auscultation, Normal air movement Cardiovascular: Regular rate, Regular Rhythm Abdomen: Soft, Non Tender, Non-Distended Extremities: Edema - mild Skin: - - R 1st MTP with redness, swelling. Reviewed photo. IV Site: Peripheral, without redness Neurological: Cranial nerves II-XII grossly intact - Assessment/Plan Antibiotics: [] Assessment/Plan: [] Active and Suspected Problems (Last Reviewed 11/22/17 @ 13:19 by Sherie Alves) Pain in right toe(s) (Acute) Cellulitis of right foot (Acute) Abscess of toe of right foot (Acute) Type 2 diabetes mellitus (Acute) Aspiration and I&D done by Dr. Hammond 02/04 of R 1st toe. Some crystals seen. Gram stain neg for bacteria. Staph aureus pcr neg. On vanc/zosyn. Will continue abx for now while cxs pending. 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 Uric acid was normal. ESR elevated at 42. Will follow, thank you.
--- NOTE | 2018-02-05 11:25 | CON.PCM_ITS ---
Problem List (1) Abscess of toe of right foot Status: Acute Reason for Consult: toe infection Consulted by: Dr. Nielson History of Present Illness: The patient is a 67 year old F with h/o DM and presumed gout in hand in past who presented 02/04 with 2 days of progressive R 1st toe redness, pain, swelling , warmth. No inciting trauma. Pain was severe. No drainage. No h/o MRSA infection. No recent abx. Came to ED, podiatry consulted. Aspiration done and purulent abscess was debrided. No fever, some chills prior to admit. Not feeling too much better this AM. On vanc/zosyn. Full ROS performed and neg except as noted above. - Medical History Past Medical History (Chronic Problems): Chronic Problems (Last Reviewed 11/22/17 @ 13:19 by Sherie Alves) Obesity (BMI 30.0-34.9) (Chronic) HERNANDEZ (dyspnea on exertion) (Chronic) ELDER (obstructive sleep apnea) (Chronic) COPD (chronic obstructive pulmonary disease) (Chronic) Neuropathic pain (Chronic) Allergic rhinitis (Chronic) Asthma (Chronic) Mild asthma (Chronic) Osteoarthritis (Chronic) Hyperlipidemia (Chronic) Hypertension (Chronic) Type 2 diabetes mellitus (Chronic) Allergies/Adverse Reactions: Allergies No Known Allergies Allergy (Verified 02/04/18 14:51) Home Medications: Ambulatory Orders Medication Instructions Recorded Atorvastatin Calcium [Lipitor] 80 mg PO QHS 01/18/17 Cyanocobalamin [Vitamin B12] 1,000 mcg PO DAILY@0800 01/18/17 Estropipate [Ogen (G)] 0.75 mg PO DAILY 01/18/17 Lisinopril [Prinivil] 10 mg PO DAILY 01/18/17 Triamterene 37.5MG/Hctz 25MG 1 cap PO DAILY 01/18/17 [Dyazide (G)] Verapamil HCl [Verapamil ER] 240 mg PO DAILY 01/18/17 gabapentin 300 mg capsule 600 mg PO TID cap 08/23/17 metformin 1,000 mg tablet 1,000 mg PO BIDCM tab 08/23/17 multivitamin tablet 1 tab PO DAILY 08/23/17 Glimepiride [Amaryl] 4 mg PO BID 09/18/17 Hydrocodone/Acetaminophen [[place] 1 each PO BID 09/18/17 5-325 Tablet] Loratadine 10 mg PO DAILY 09/18/17 Ascorbic Acid [Vitamin C] 1,000 mg PO QHS 02/04/18 Ibuprofen [Motrin] 800 mg PO TID PRN PRN 02/04/18 Lidocaine [Lidoderm Patch] 1 patch TRANSDERM. DAILY 02/04/18 Methenamine Hippurate 1 tab PO QHS 02/04/18 Novolin N 35 - 40 units SQ DINNER 02/04/18 Omeprazole [Omeprazole] 20 mg PO DAILY 02/04/18 Victoza 1.2 units SQ BREAKFAST 02/04/18 - Social History SMOKING STATUS:: Former smoker Vital Signs Temp Pulse Resp BP Pulse Ox 98.6 F 110 H 18 149/71 H 98 02/05/18 08:30 02/05/18 08:30 02/05/18 08:30 02/05/18 08:30 02/05/18 08:30 Oxygen Flow Rate (L/min) 2 Oxygen Delivery Method Nasal Cannula Weight: 74.8 kg Body Mass Index (BMI) 30.1 Microbiology Past 72 Hours 02/04/18 18:08 Gram Stain - Final Fluid - Bursa Body Fluid Culture - Preliminary No growth-Final to follow 02/04/18 18:08 Gram Stain - Final Wound - Right Foot Wound Culture - Preliminary No growth-Final to follow Laboratory Tests Past 24 Hrs 02/04/18 02/04/18 02/05/18 18:08 18:08 09:30 WBC 10.6 RBC 4.08 L Hgb 10.2 L Hct 33.7 L MCV 82.6 MCH 25.0 L MCHC 30.3 L RDW 15.7 H RDW Differential 46.7 H Plt Count 302 MPV 8.3 Immature Gran % (Auto) 0.300 Neut % (Auto) 83.2 H Lymph % (Auto) 5.7 L [place] % (Auto) 9.7 Eos % (Auto) 0.9 Baso % (Auto) 0.2 Absolute Neuts (auto) 8.8 H Absolute Lymphs (auto) 0.60 L Total Counted Not Reportable Differential Comment COMMENT Fluid Crystals SEE PATH REV Fluid Crystal Source SYNOVIAL Fl Crystal Path Review Reviewed S.aureus Protein A PCR NEGATIVE MRSA (PCR) Negative - Other Studies Radiology: [] reviewed Other Studies: [] Route of nutrition/ use of supplements: [] Nutritional Intake: [] IV Site: [] Allen Catheter: [] - Physical Exam General: Alert, Oriented x3, Cooperative, No apparent distress HEENT: Atraumatic, PERRLA, EOMI Neck: Supple, No Nodes Lungs: Clear to auscultation, Normal air movement Cardiovascular: Regular rate, Regular Rhythm Abdomen: Soft, Non Tender, Non-Distended Extremities: Edema - mild Skin: - - R 1st MTP with redness, swelling. Reviewed photo. IV Site: Peripheral, without redness Neurological: Cranial nerves II-XII grossly intact - Assessment/Plan Antibiotics: [] Assessment/Plan: [] Active and Suspected Problems (Last Reviewed 11/22/17 @ 13:19 by Sherie Alves ) Pain in right toe(s) (Acute) Cellulitis of right foot (Acute) Abscess of toe of right foot (Acute) Type 2 diabetes mellitus (Acute) Aspiration and I&D done by Dr. Hammond 02/04 of R 1st toe. Some crystals seen. Gram stain neg for bacteria. Staph aureus pcr neg. On vanc/zosyn. Will continue abx for now while cxs pending. 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 Uric acid was normal. ESR elevated at 42. Will follow, thank you.
--- NOTE | 2018-02-05 12:22 | CASEMGMT ---
[facility] Assessment completed. DC PLAN: undetermined. -Pt would like to return home. Awaiting cultures, I/D and podiatry determinations. -Pt has been in TCU in past. May be agreeable to return if wound care/IV antibiotics would be required. -Pt was independent prior to admission, drove. As R foot is affected, [facility] let pt know she may be on driving restriction on dc. Pt states she has friends who can assist. -on Home O2 @ night through [employer]. If oxygen testing shows pt needs 24 hr oxygen, will need new prescription faxed and portability arranged.
--- NOTE | 2018-02-05 13:05 | PN_ITS ---
Patient Problems: Active and Suspected Problems (Last Reviewed 11/22/17 @ 13:19 by Sherie Alves ) Pain in right toe(s) (Acute) Cellulitis of right foot (Acute) Abscess of toe of right foot (Acute) Type 2 diabetes mellitus (Acute) Subjective: Day #2 antibiotics-Vanco and Zosyn All events of the past 24 hours of been reviewed. Afebrile since admission. Straight is high today and for the past almost 12 hours has ranged from 102-110. All lab was personally reviewed. Count at admission was 10.5 with 78% neutrophils. Hemoglobin was 11.0 with an MCV of 82.4 and an RDW of 15.8. The MCV has been decreasing over the past year. ESR is 42. BMP is unremarkable and the creatinine is 0.74. Globin A1c is not adequately controlled at 8.9. Magnesium is low at 1.3. CRP is 65.8. PCR on the wound drainage is negative for staph aureus and negative for MRSA. Gram stain has no organisms of the drainage. Were no cells seen and there were a few crystals. Foot x-ray showed no bony involvement. Today she is complaining of pain in both feet and also pain on the medial aspect of the left elbow in the soft tissue. She has been told in the past she does not have gout because her uric acid was normal. She does not know of any family history of gout. She is On a diuretic. The left forefoot is reddened and warm to touch and she is very tender at the first MTP. Objective: PHYSICAL EXAM: GENERAL: alert, oriented X 3, Cooperative, appears to be having some pain ORAL: dry mucosa, no mucosal lesions NECK: No JVD, supple, trachea midline LUNGS: CTA, symmetric chest expansion HEART: RRR, Normal S1 and S2, no rub, no gallop, NO mm ABDOMEN: soft, NT, ND, BS present, no guarding with palpation EXTREMITIES: no edema, no cyanosis, no calf tenderness SKIN: No rashes, no breakdown. The right foot has been examined twice today by Dr. Palmer and Dr. Hammond and I did not take the dressing down. There is no erythema extending above the dressing which stops at the ankle. The left forefoot is red and and warm to touch. There are no openings in the skin. Patient is very tender to palpation at the first left MTP joint. She has a small area left antecubital fossa medially which is mildly erythematous and tender to palpation. There is no fluctuance. There is no mass. She has good joint movement with no pain. There is no olecranon bursitis present. The redness is in the superficial tissue and not the joint. NEUROLOGIC: no focal neurologic deficits PSYCH: appropriate, normal affect, pleasant - Physical Exam Vital Signs Temp Pulse Resp BP Pulse Ox 98.6 F 110 H 18 149/71 H 98 02/05/18 08:30 02/05/18 08:30 02/05/18 08:30 02/05/18 08:30 02/05/18 08:30 Oxygen Flow Rate (L/min) 2 Oxygen Delivery Method Nasal Cannula Weight: 164 lb 14.492 oz Body Mass Index (BMI) 30.1 Intake and Output for Last 24 Hours 02/03/18 02/04/18 02/05/18 23:59 23:59 23:59 Intake Total 944 / 944 1020 / 1020 Output Total 100 / 100 Balance 944 / 944 920 / 920 Microbiology Past 72 Hours 02/04/18 18:08 Gram Stain - Final Fluid - Bursa Body Fluid Culture - Preliminary No growth-Final to follow 02/04/18 18:08 Gram Stain - Final Wound - Right Foot Wound Culture - Preliminary No growth-Final to follow Laboratory Tests Past 24 Hrs 02/04/18 02/04/18 02/05/18 18:08 18:08 09:30 WBC 10.6 RBC 4.08 L Hgb 10.2 L Hct 33.7 L MCV 82.6 MCH 25.0 L MCHC 30.3 L RDW 15.7 H RDW Differential 46.7 H Plt Count 302 MPV 8.3 Immature Gran % (Auto) 0.300 Neut % (Auto) 83.2 H Lymph % (Auto) 5.7 L [place] % (Auto) 9.7 Eos % (Auto) 0.9 Baso % (Auto) 0.2 Absolute Neuts (auto) 8.8 H Absolute Lymphs (auto) 0.60 L Total Counted Not Reportable Differential Comment COMMENT Fluid Crystals SEE PATH REV Fluid Crystal Source SYNOVIAL Fl Crystal Path Review Reviewed S.aureus Protein A PCR NEGATIVE MRSA (PCR) Negative POC Glucose 02/05/18 02/05/18 02/05/18 10:40 06:38 02:13 POC Glucose 284 H 209 H 109 02/04/18 02/04/18 02/04/18 22:58 22:20 18:58 POC Glucose 89 64 L 119 H Medical Necessity - Tobacco Use Smoking Status: Former smoker Tobacco Use: Cigarettes Assessment/Plan Active and Suspected Problems (Last Reviewed 11/22/17 @ 13:19 by Sherie Alves ) Pain in right toe(s) (Acute) Cellulitis of right foot (Acute) Abscess of toe of right foot (Acute) Type 2 diabetes mellitus (Acute) Impressions 1. Cellulitis of the R foot 2. Acute gout Left foot 3. DM II 4. Obesity 5. COPD 6. Diabetic neuropathy 7. Allergic rhinitis 8. Osteoarthritis 9. Hyperlipidemia 10. Hypertension 11. GERD 12. ELDER Continue current antibiotics-await the final blood and wound cultures to de- escalate antibiotic regimen. Heart a probiotic Prednisone 20 mg daily ?3 days for acute gouty arthritis left foot Toradol 15 mg IV every 6 hours as needed pain-maximum dose of 8 Recheck BMP in the a.m. Start Lovenox for DVT prophylaxis Code Visit Inpatient E&M: 66315 Subs Hosp L2
[2018-02-05 13:25] LABS: Ferritin 63 ng/mL (8-252); Iron 20 ug/dL (50-170); Iron Binding Capacity,Total 323 ug/dL (250-450); PERCENT IRON SATURATION 6.2 % (15.0-55.0)
[2018-02-05] MEDS: Ketorolac 15 MG/ML Vial IV (13:53)
[2018-02-05] MEDS: predniSONE 20 MG Tablet PO (13:54)
[2018-02-05 14:31] LABS: Bedside Glucose 239 mg/dL (70-110)
[2018-02-05 16:50] LABS: Bedside Glucose 257 mg/dL (70-110)
[2018-02-05 20:01] LABS: Bedside Glucose 408 mg/dL (70-110)
--- NOTE | 2018-02-05 20:04 | RRT_ITS ---
Rapid Response Note Rapid response was called about 8:35 PM. Patient seen and examined She looks drowsy, lethargic, very short of breath and respiratory distress. Patient is very hypoxic and put on 100% rebreather. Patient has history of COPD and admitted for right lower extremity infectious arthritis at left first MTP joint with history of obstructive sleep apnea, chronic tobacco use and allergic rhinitis. On exam Patient looks dehydrated with cold and clammy skin. Blood pressure was 153/80, heart rate in 120s. On auscultation, air entry diminished in bilateral lungs. Very dyspneic, tachypneic and hypoxic. Patient was immediately put on BiPAP. DuoNeb, IV Solu-Medrol and ABG gas ordered. ABG shows 7.12, 80/116 at 100% FiO2 14/8, respiratory rate 22 on BiPAP. Discussed with respiratory therapist. Increased IPAP to 18/8. Gradually decreased FiO2 to keep pulse ox more than 90%. Repeat ABG in 1 hour. Labs CBC, CMP, magnesium, d-dimer, chest x-ray portable, EKG and troponin ordered. Patient on Lovenox since admission. Transferred to ICU. IV fluid normal saline 500 bilious bolus ordered In ICU, lactic acid 2.1, troponin 5.67 and second 8.34 . Patient already got Lovenox 1 mg/kg body weight for suspicion of possible PE. Repeat ABG shows 7.37/40 7/139 at 70% FiO2, 20/10; respiratory rate 12/min Advised change BiPAP parameter 15/5 at 50% FiO2 titrated to keep pulse ox more than 90% Lead EKG done shows normal sinus rhythm with no significant ST-T changes suggestive of ischemia. Her previous EKG from January 2017 similar except sinus tachycardia 207 bpm. She had echo in January 2017 shows normal LV size and systolic function with EF 60% no regional wall motion abnormalities. Normal right and left atria. Mild eccentric MR, moderate 2+ TR with PA SP 51 images as to mild pulmonary hypertension. IV fluid normal saline 500 bolus and then 100 mL/h Patient looks comfortable on 2 L of nasal cannula. Denies any chest pain from the beginning. Patient of BiPAP soon will go for CTPA Discussed with Dr. Gonzalez, Plavix loading dose 300 mg, aspirin 325 mg. Patient Problems: Active and Suspected Problems (Last Reviewed 11/22/17 @ 13:19 by Sherie Alves ) Pain in right toe(s) (Acute) Cellulitis of right foot (Acute) Abscess of toe of right foot (Acute) Type 2 diabetes mellitus (Acute) - Physical Exam Vital Signs Temp Pulse Resp BP Pulse Ox 98.3 F 126 H 32 H 153/74 H 98 02/05/18 19:42 02/05/18 19:42 02/05/18 19:48 02/05/18 19:42 02/05/18 19:48 Oxygen Flow Rate (L/min) 2 Oxygen Delivery Method Bi-pap Weight: 164 lb 14.492 oz Body Mass Index (BMI) 30.1 Intake and Output for Last 24 Hours 02/03/18 02/04/18 02/05/18 23:59 23:59 23:59 Intake Total 944 / 944 3770 / 3770 Output Total 850 / 850 Balance 944 / 944 2920 / 2920 Microbiology Past 72 Hours 02/04/18 18:08 Gram Stain - Final Fluid - Bursa Body Fluid Culture - Preliminary No growth-Final to follow 02/04/18 18:08 Gram Stain - Final Wound - Right Foot Wound Culture - Preliminary No growth-Final to follow Laboratory Tests Past 24 Hrs 02/04/18 02/04/18 02/05/18 18:08 18:08 09:30 WBC 10.6 RBC 4.08 L Hgb 10.2 L Hct 33.7 L MCV 82.6 MCH 25.0 L MCHC 30.3 L RDW 15.7 H RDW Differential 46.7 H Plt Count 302 MPV 8.3 Immature Gran % (Auto) 0.300 Neut % (Auto) 83.2 H Lymph % (Auto) 5.7 L [place] % (Auto) 9.7 Eos % (Auto) 0.9 Baso % (Auto) 0.2 Absolute Neuts (auto) 8.8 H Absolute Lymphs (auto) 0.60 L Total Counted Not Reportable Differential Comment COMMENT Iron TIBC Iron Saturation Ferritin Fl Crystal Path Review Reviewed S.aureus Protein A PCR NEGATIVE MRSA (PCR) Negative 02/05/18 09:30 WBC RBC Hgb Hct MCV MCH MCHC RDW RDW Differential Plt Count MPV Immature Gran % (Auto) Neut % (Auto) Lymph % (Auto) [place] % (Auto) Eos % (Auto) Baso % (Auto) Absolute Neuts (auto) Absolute Lymphs (auto) Total Counted Differential Comment Iron 20 L TIBC 323 Iron Saturation 6.2 L Ferrit[place] 63 Fl Crystal Path Review S.aureus Protein A PCR MRSA (PCR) POC Glucose 02/05/18 02/05/18 02/05/18 16:47 14:25 10:40 POC Glucose 257 H 239 H 284 H 02/05/18 02/05/18 02/04/18 06:38 02:13 22:58 POC Glucose 209 H 109 89 02/04/18 22:20 POC Glucose 64 L Assessment/Plan Active and Suspected Problems (Last Reviewed 11/22/17 @ 13:19 by Sherie Alves ) Pain in right toe(s) (Acute) Cellulitis of right foot (Acute) Abscess of toe of right foot (Acute) Type 2 diabetes mellitus (Acute)
[2018-02-05 20:06] LABS: Allen Test POS; Base Excess -3 mmol/L (-2 to +2); Bicarbonate 26.1 mmol/L (22-26); Blood Gas Specimen Type ART; EPAP 8; FI02 100; IPAP 14; PO2 116 mmHG (75-100); RR 22; SITE L Radial; SO2 96 % (95-99); Time Given 1955; Total Carbon Dioxide 28 mmol/L; pH 7.12 (7.35-7.45)
--- NOTE | 2018-02-05 20:20 | EKG12_ITS ---
Test Reason : DYSRHYTHMIA Blood Pressure : / mmHG Vent. Rate : 092 BPM Atrial Rate : 092 BPM P-R Int : 152 ms QRS Dur : 080 ms QT Int : 392 ms P-R-T Axes : 038 040 090 degrees QTc Int : 484 ms Normal sinus rhythm Normal ECG Confirmed by FELIX HOYOS, CHANTE ([id number]), assistant film editor JEFFREY ANGLIN ([id number]) on 02/13/2018 3:33:45 PM Referred By: NANCY Confirmed By:CHANTE WASHINGTON MD
--- NOTE | 2018-02-05 20:20 | NURSING ---
Keisha RN called to let me know that pt. c/o SOB and that pulse ox both on finger and on toe was 50% even when turned up to 5L NC. This nurse went in to evaluate patient who was clearly in respiratory distress. Respirations 28, lethargic, diaphoretic. LS were very tight and very wheezy. CORPORATION OFFICER called at 1938. Dr. Roman ordered 500cc bolus and Patient placed on BiPAP. Transferred to ICU awake, alert and in stable condition.
--- NOTE | 2018-02-05 20:21 | NURSING ---
Pt call light answered by this RN. PT complaining of SOB this RN in to assess pt. PT cyanotic, tachypneic and hypoxic when vital signs taken. Oxygen increased with no relief for PT. Primary RN notified along with RT. Rapid response team called at 1938. See [employer] OPERATOR documentation for further detail.
[2018-02-05] MEDS: Albuterol 2.5 MG/3 ML VIAL.NEB. INHALATION (20:23)
--- NOTE | 2018-02-05 20:30 | RAD_ITS ---
STUDY: X-RAY CHEST REASON FOR EXAM: Female, 67 years old. Respiratory distress TECHNIQUE: Single AP portable view of the chest. COMPARISON: January 18, 2017 chest x-ray FINDINGS: Since prior study there is been interval development of patchy interstitial densities within the right upper lobe predominance in the lung bases. There is no demonstrated pleural abnormality. Normal size heart. Normal mediastinum and cristofer. Normal visualized pulmonary arteries. There is atherosclerotic calcification of the aortic arch with tortuosity. Normal visualized thoracic spine. Normal visualized ribs, clavicles, and shoulders. There is no demonstrated abnormality of the visualized soft tissue structures of the upper abdomen. RAD/Chest 1 View (Portable) IMPRESSION: Interval development of patchy interstitial densities consider asymmetric edema and/or atypical infiltrates. Electronically Signed: Faye Rojas MD at 21:34 EDT Tel , Service support ,
[2018-02-05 20:56] LABS: Absolute Neutrophil Count 13.1 X10^3/uL (2.0-7.7); Basophil# 0.01 X10^3/uL; Basophil% 0.1 % (0-1); Eosinophil# 0.02 X10^3/uL; Eosinophils% 0.1 % (0-5); Hematocrit 35.6 % (37-47); Hemoglobin 10.6 g/dl (12.0-15.0); Lymphocyte % 2.9 % (19-41); Mean Corp Hgb Conc 29.8 g/gl (32-36); Mean Corpuscular Hgb 24.5 pg (27.0-32.0); Mean Corpuscular Volume 82.2 fL (81-99); Mean Platelet Vol. 8.4 fl (6.2-12.0); Monocyte# 0.49 X10^3/uL; Monocyte% 3.5 % (0-10); Neutrophil # 13.07 X10^3/uL (2.7-7.7); Neutrophil % 93.3 % (47-70); Platelet Count 324 K/mm3 (150-450); RBC Distribution Width CV 15.8 % (11.6-14.6); RBC Distribution Width SD 48.1 fl (35.1-43.9); Red Blood Count 4.33 M/mm3 (4.2-5.4)
[2018-02-05 20:57] LABS: Differential Indicated SCAN CRITERIA MET; POSITIVE COUNT NO; POSITIVE DIFFERENTIAL YES; POSITIVE MORPHOLOGY NO
[2018-02-05 21:03] LABS: D-Dimer Quantitative (DVT/PE) 1.88 FEU/ug/m (0.27-0.49)
[2018-02-05 21:22] LABS: ALB/GLOB Ratio 0.5 RATIO (0.9-2.4); AST(SGOT) 44 U/L (15-37); Alanine Aminotransfer ALT/SGPT 19 U/L (13-56); Albumin, Serum 2.3 g/dL (3.2-5.0); Alkaline Phosphatase 96 U/L (45-117); Anion Gap 8 (5-15); BUN 12 mg/dL (7-18); BUN/Creat Ratio 13.7 RATIO (10-20); Calcium,Total 8.1 mg/dL (8.5-10.1); Chloride 99 mmol/L (98-107); Creatinine, Serum 0.88 mg/dL (0.55-1.02); EST Glomerular Filtration Rate 68 mL/min (>60); Est Glom Filt Rate - Afr Amer 82 mL/min (>60); Estimated Creatinine Clearance 48.39 ml/min; Globulin 4.9 g/dL (2.2-4.2); Glucose 363 mg/dL (74-106); Magnesium 2.3 mg/dL (1.6-2.6); Potassium 4.4 mmol/L (3.5-5.1); Protein, Total 7.2 g/dL (6.4-8.2); Sodium Level 134 mmol/L (136-145)
[2018-02-05 21:24] LABS: Anisocytosis 1+; Differential Comment SCANNED; Lactic Acid 2.1 mmol/L (0.4-2.0); Platelet Estimate ADEQUATE (ADEQ); Poikilocytosis RARE
[2018-02-05] MEDS: Menthol/Lanolin/Calamine/Znox 113 GM Tube 1 APPLIC TOPICAL (21:28)
[2018-02-05 21:31] LABS: Allen Test POS; Base Excess 3 mmol/L (-2 to +2); Bicarbonate 27.8 mmol/L (22-26); Blood Gas Specimen Type ART; EPAP 10; FI02 70; IPAP 20; PO2 139 mmHG (75-100); RR 12; SITE L Radial; SO2 99 % (95-99); Time Given 2120; Total Carbon Dioxide 29 mmol/L; pH 7.38 (7.35-7.45)
[2018-02-05] MEDS: MethylPREDNISolone 125 MG/2 ML Vial 60 MG IV (21:40)
[2018-02-05] MEDS: 0.9% NaCl Peripheral Flush Adult/Peds IV (21:43)
[2018-02-05 21:46] LABS: Bedside Glucose 387 mg/dL (70-110)
--- NOTE | 2018-02-05 21:59 | NURSING ---
will address hygiene when pt is more stable, at this time pt still has SOB and Tachypnea.
[2018-02-05] MEDS: Enoxaparin 80 MG/0.8 ML Syringe 70 MG SC (22:02)
[2018-02-05 22:09] LABS: M R Staph aureus DNA By PCR POSITIVE (Negative); Probe Check PASS
[2018-02-06] VITALS (25 sets, daily range): BP systolic 108–145; BP diastolic 59–91; PULSE 84–102; RESP 12–30; TEMP 36.6–36.8; O2SAT 89–100
[2018-02-06 00:46] LABS: Reflex Lactate? Y
[2018-02-06] MEDS: Aspirin E.C. 325 MG Tablet PO (00:56)
[2018-02-06] MEDS: Clopidogrel Bisulfate 300 MG Tablet PO (01:09)
[2018-02-06 01:44] LABS: Lactic Acid 1.9 mmol/L (0.4-2.0)
--- NOTE | 2018-02-06 01:56 | NURSING ---
Pt taken to CT scan by this RN at 0135 and returned to the floor at 0150, pt tolerated the procedure well.
[2018-02-06] MEDS: Ipratropium/Albuterol Sulfate 3 ML AMPUL.NEB INHALATION ×2 (02:41→06:42)
[2018-02-06] MEDS: MethylPREDNISolone 125 MG/2 ML Vial 60 MG IV (05:52)
[2018-02-06] MEDS: Piperacil/Tazobactam 3.375 GM/50 ML ML IV ×2 (05:52→13:42)
[2018-02-06] MEDS: 0.9% NaCl Peripheral Flush Adult/Peds IV ×4 (05:53→09:37)
--- NOTE | 2018-02-06 05:55 | ECHOD_ITS ---
Reason For Study: HIGH TROPONIN Procedure This was a 2D Doppler, Color Flow transthoracic echocardiogram. Exam performed portable in ICU/CCU. Left Ventricle Normal LV size. Mild concentric left ventricular hypertrophy. Left ventricular systolic function is normal. The estimated ejection fraction is 55 %. Transmitral diastolic flow velocities suggest mild (stage 1) diastolic dysfunction (reversed pattern). No regional wall motion abnormalities noted. Right Ventricle Normal RV size. Normal systolic function. Atria Normal left atrium. Normal right atrium. Mitral Valve There is mild mitral annular calcification. Moderate (2+) eccentric mitral valve insufficiency. Tricuspid Valve Normal tricuspid valve. Mild to moderate (1-2+) tricuspid valve insufficiency. Pulmonary artery systolic pressure is 45 mmHg. Mild pulmonary hypertension. Aortic Valve Trisinus/trileaflet aortic valve. Mild focal aortic valve calcification. Mild (1+) eccentric aortic valve insufficiency. Pulmonic Valve Normal pulmonic valve. Great Vessels Calcified aortic root. The pulmonary artery is normal size. Normal inferior vena cava. Pericardium/Pleural No pericardial effusion. MMode/2D Measurements & Calculations LVIDd: 4.6 cm IVSd: 1.2 cm LVOT diam: 2.0 cm LVIDs: 3.8 cm LVPWd: 1.2 cm LVOT area: 3.2 cm2 RVDd: 2.8 cm FS: 17.6 % Ao root diam: 3.3 cm LAV(MOD-bp): 46.8 ml LVAd ap4: 31.6 cm2 LAV(MOD-bp) Indexed: 26.7 ml/m2 EDV(MOD-sp4): 96.6 ml LAV(MOD-sp2): 48.2 ml EDV(sp4-el): 100.4 ml LAV(MOD-sp4): 45.3 ml LVAs ap4: 18.9 cm2 ESV(MOD-sp4): 41.1 ml ESV(sp4-el): 43.3 ml EF(MOD-sp4): 57.5 % EF(sp4-el): 56.9 % SV(MOD-sp4): 55.6 ml SV(sp4-el): 57.1 ml LA A4 area: 17.4 cm2 RA A4 area: 11.6 cm2 Doppler Measurements & Calculations MV E max hernando: 111.2 cm/sec Lat Peak E' Hernando: 9.9 cm/sec Med Peak E' Hernando: 6.2 cm/sec MV A max hernando: 135.4 cm/sec E/E' lat: 11.2 E/E' med: 17.9 MV E/A: 0.82 Ao V2 max: 170.1 cm/sec LV V1 max: 104.0 cm/sec PA V2 max: 109.8 cm/sec Ao max P.6 mmHg LV V1 max P.3 mmHg SAJI(V,D): 2.0 cm2 TR max hernando: 317.2 cm/sec TR max P.4 mmHg Interpretation Summary Normal LV size. Left ventricular systolic function is normal. The estimated ejection fraction is 55 %. Moderate (2+) eccentric mitral valve insufficiency. Pulmonary artery systolic pressure is 45 mmHg. Mild pulmonary hypertension. Mild concentric left ventricular hypertrophy. Ordering Physician: Ryan Roman Referring Physician: KINSEY JOHNSTON CHI Performed By: Karen Whiteside RDCS
[2018-02-06 07:00] LABS: Bedside Glucose 377 mg/dL (70-110)
--- NOTE | 2018-02-06 07:06 | PCM.CONS.C ---
Reason for Consult Date of Consultation: 02/06/18 Reason for Consultation: Abnormal cardiac enzymes and shortness of breath History of Present Illness: The patient is a 67 y/o F w/ PMHx: Obesity, Chronic COPD/Asthma, HTN, HLD, Allergic Rhinitis, ELDER, GERD, Tobacco use who presents to the [facility] ED on 02/04/18 with history of onset over the last 48 hours of initially R 1st MTP edema, pain, redness and mildly fluctuant region followed by onset L 1st MTP redness, pain, edema in addition to L elbow pain although no associated redness or marked edema without fever or chills. In the ED work-up included T 98.3, heart rate 98, BP 133/80, respiratory rate 16, 98% on room air, CBC with WBC 10.5, hemoglobin 11, platelet 312 with left shift, ESR 42, BMP with glucose 198, CRP 65.8, blood culture ?2 pending per ED, Plain film of the foot with soft tissue edema overlying the medial aspect of the proximal phalanx of the great toe and dorsal aspect of the foot. In the ED patient administered Zosyn therapy. In the ED podiatry consulted and planned in ED aspiration of R 1st MTP and I+D of fluctuant region. Patient was noted in the middle of the night to get suddenly short of breath after she went to the bathroom and had to be transferred to the intensive care unit. Cardiac enzymes were obtained and were noted to be elevated to approximately 8. There were no EKG changes and the patient did not complain of any chest pain. Patient had previously been diagnosed with pulmonary hypertension with pulmonary to systolic pressure about 51 mmHg. This morning she is pain-free she is breathing better after having been on BiPAP through the night with occasional rales at the bases. Past Medical History Allergies/Adverse Reactions: Allergies No Known Allergies Allergy (Verified 02/04/18 14:51) Home Medications: Ambulatory Orders Medication Instructions Recorded Atorvastatin Calcium [Lipitor] 80 mg PO QHS 01/18/17 Cyanocobalamin [Vitamin B12] 1,000 mcg PO DAILY@0800 01/18/17 Estropipate [Ogen (G)] 0.75 mg PO DAILY 01/18/17 Lisinopril [Prinivil] 10 mg PO DAILY 01/18/17 Triamterene 37.5MG/Hctz 25MG 1 cap PO DAILY 01/18/17 [Dyazide (G)] Verapamil HCl [Verapamil ER] 240 mg PO DAILY 01/18/17 gabapentin 300 mg capsule 600 mg PO TID cap 08/23/17 metformin 1,000 mg tablet 1,000 mg PO BIDCM tab 08/23/17 multivitamin tablet 1 tab PO DAILY 08/23/17 Glimepiride [Amaryl] 4 mg PO BID 09/18/17 Hydrocodone/Acetaminophen [[place] 1 each PO BID 09/18/17 5-325 Tablet] Loratadine 10 mg PO DAILY 09/18/17 Ascorbic Acid [Vitamin C] 1,000 mg PO QHS 02/04/18 Ibuprofen [Motrin] 800 mg PO TID PRN PRN 02/04/18 Lidocaine [Lidoderm Patch] 1 patch TRANSDERM. DAILY 02/04/18 Methenamine Hippurate 1 tab PO QHS 02/04/18 Novolin N 35 - 40 units SQ DINNER 02/04/18 Omeprazole [Omeprazole] 20 mg PO DAILY 02/04/18 Victoza 1.2 units SQ BREAKFAST 02/04/18 Past Medical History (Chronic Problems): Chronic Problems (Last Reviewed 11/22/17 @ 13:19 by Sherie Alves) Obesity (BMI 30.0-34.9) (Chronic) HERNANDEZ (dyspnea on exertion) (Chronic) ELDER (obstructive sleep apnea) (Chronic) COPD (chronic obstructive pulmonary disease) (Chronic) Neuropathic pain (Chronic) Allergic rhinitis (Chronic) Asthma (Chronic) Mild asthma (Chronic) Osteoarthritis (Chronic) Hyperlipidemia (Chronic) Hypertension (Chronic) Type 2 diabetes mellitus (Chronic) Surgical History: - - Hysterectomy, tonsillectomy, appendectomy, BLTL. 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 Sibling Family History: Family History (Last Reviewed 11/22/17 @ 13:19 by Sherie Alves) Mother Colon cancer History Items: Diabetes, Heart Disease, - - ELDER Lives: Alone Smoking Status: Former smoker Tobacco Use: Cigarettes Alcohol: None Drugs: None Review of Systems - Review of Systems General: Denies: Fever, Night Sweats, Fatigue Cardiovascular: Reports: Shortness of Breath, Shortness of Breath at Rest. Denies: Chest Discomfort, Orthopnea, PND, Peripheral Edema, Palpitations, Lightheadedness, Dizziness, Near Syncope, Syncope Respiratory: Denies: Cough, Sputum Production, Hemoptysis Gastrointestinal: Denies: Hematemesis, Hematochezia, Melena Genitourinary: Denies: Dysuria, Hematuria Skin: Denies: Rash Subjectve: Pleasant lady in no distress Objective: Vital Signs Temp Pulse Resp BP Pulse Ox 97.8 F 102 H 16 145/91 H 99 02/06/18 04:00 02/06/18 07:00 02/06/18 07:00 02/06/18 07:00 02/06/18 07:00 Oxygen Flow Rate (L/min) 4 Oxygen Delivery Method Nasal Cannula Weight: 166 lb 7.184 oz Body Mass Index (BMI) 30.1 Intake and Output for Last 24 Hours 02/04/18 02/05/18 02/06/18 23:59 23:59 23:59 Intake Total 944 / 944 3770 / 3770 2348.6 / 2348.6 Output Total 850 / 850 600 / 600 Balance 944 / 944 2920 / 2920 1748.6 / 1748.6 General: Awake, Alert, Oriented x 3 HEENT: PERRL, EOMI, Sclera Non Icteric Neck: Supple, Good ROM, No Lymph Node Enlargement Lungs: Rales - Alfredo Bases Cardiovascular: Regular Rhythm, Normal S1, Normal S2, No Murmurs, No Rubs, No Gallops Vascular: No Carotid Bruits, Normal Femoral Pulses, Normal Radial Pulses, Normal Dorsalis Pedal Pulse, Normal Posterior Tibial Pulses Abdomen: Bowel Sounds Present, Soft, Non Tender, No HSM, No Organomegaly Extremities: No Cyanosis, No Clubbing, No edema, - - 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 Neurological: No Focal Motor or Sensory Deficit 02/05/18 09:30: WBC 10.6, RBC 4.08 L, Hgb 10.2 L, Hct 33.7 L, MCV 82.6, MCH 25.0 L, MCHC 30.3 L, RDW 15.7 H, RDW Differential 46.7 H, Plt Count 302, MPV 8.3, Immature Gran % (Auto) 0.300, Neut % (Auto) 83.2 H, Lymph % (Auto) 5.7 L, [place] % (Auto) 9.7, Eos % (Auto) 0.9, Baso % (Auto) 0.2, Absolute Neuts (auto) 8.8 H, Total Counted Not Reportable 02/05/18 09:30: Iron 20 L, TIBC 323, Iron Saturation 6.2 L, Ferritin 63 02/05/18 19:54: pH 7.12 L*, Bicarbonate Actual 26.1 H, POC Total CO2 28, Base Excess -3 L, O2 Saturation 96, ABG pCO2 80.0 H*, ABG pO2 116 H, [place] Test POS 02/05/18 20:34: WBC 14.0 H, RBC 4.33, Hgb 10.6 L, Hct 35.6 L, MCV 82.2, MCH 24.5 L, MCHC 29.8 L, RDW 15.8 H, RDW Differential 48.1 H, Plt Count 324, MPV 8.4, Immature Gran % (Auto) 0.100, Neut % (Auto) 93.3 H, Lymph % (Auto) 2.9 L, [place] % (Auto) 3.5, Eos % (Auto) 0.1, Baso % (Auto) 0.1, Absolute Neuts (auto) 13.1 H, Total Counted Not Reportable 02/05/18 20:34: Sodium 134 L, Potassium 4.4, Chloride 99, Carbon Dioxide 27.0, Anion Gap 8, BUN 12, Creatinine 0.88, Est GFR (MDRD) Af Amer 82, Est GFR (MDRD) Non-Af 68, BUN/Creatinine Ratio 13.7, Glucose 363 H, Calcium 8.1 L, Magnesium 2.3, Total Bilirubin 0.50, Troponin I 5.670 H* 02/05/18 20:34: Lactic Acid 2.1 H 02/05/18 20:34: D-Dimer Quant (PE/DVT) 1.88 H* 02/05/18 21:26: pH 7.38, Bicarbonate Actual 27.8 H, POC Total CO2 29, Base Excess 3 H, O2 Saturation 99, ABG pCO2 47.0 H, ABG pO2 139 H, [place] Test POS 02/05/18 23:31: Troponin I 8.340 H* 02/06/18 01:10: Lactic Acid 1.9 02/06/18 03:50: Troponin I 7.690 H* Rhythm: EKG: Sinus rhythm with no acute changes ECHO: Stress Test: Cardiac Cath: PCI: CT Surgery: Holter monitor: EPS: PPM: CXR: Chest CT Scan: No evidence of pulmonary embolism Assessment/Plan 1. Non-ST elevation myocardial infarction. Patient developed acute shortness of breath with evidence of mild pulmonary edema and evidence of non-ST elevation myocardial infarction. Based on this it was felt that the patient should undergo evaluation with a cardiac catheterization. The risk benefits alternatives have been explained to the patient she understands and agrees to proceed this has also been discussed with her son. The patient was loaded with oral clopidogrel as well as aspirin. Depending on the findings further recommendations will be made. 2. Acute pulmonary edema. It appears from the CT scan as well as her physical exam that she may have had an acute pulmonary edema and one needs to exclude significant coronary artery disease as a possible etiology of the above. She will be diuresed with intravenous Lasix and depending on the heart catheterization further recommendations made. 3. Obstructive lung disease pulmonary hypertension. The patient has known pulmonary hypertension by previous echocardiogram the underlying etiology is not entirely clear. She will continue with diuresis and I have taken the liberty of obtaining a pulmonary consultation. Will inform the hospitalist. Thank you for allowing me to participate in the care of your patient. Please don't hesitate to call if any issues arise Addendum. Patient underwent cardiac catheterization this morning which demonstrated the following: Calcified aorta. Calcified left main coronary artery. Distal 70% left main coronary artery stenosis. Proximal high-grade circumflex and then mid total occlusion Left anterior descending artery with 60-70% proximal, and 6070% mid Right coronary artery with 70% mid calcified stenosis and subtotally occluded posterolateral vessel with right to left collaterals Preserved left ventricular systolic function with moderate mitral regurgitation Based on the above angiographic findings it would be preferable for the patient to undergo coronary artery bypass surgery and if that is not possible then high risk intervention would be attempted. The above has been discussed with the interventionalist as well as the cardiac surgeon. The patient will be transferred back to the intensive care unit and then subsequently transferred to [facility] later today.
[2018-02-06] MEDS: Verapamil SR 240 MG Tablet PO (07:12)
[2018-02-06] MEDS: Lisinopril 10 MG Tablet PO (07:12)
--- NOTE | 2018-02-06 07:13 | CON.PCM_ITS ---
Reason for Consult Date of Consultation: 02/06/18 Reason for Consultation: Abnormal cardiac enzymes and shortness of breath History of Present Illness: The patient is a 67 y/o F w/ PMHx: Obesity, Chronic COPD/Asthma, HTN, HLD, Allergic Rhinitis, ELDER, GERD, Tobacco use who presents to the [facility] ED on 02/04/18 with history of onset over the last 48 hours of initially R 1st MTP edema, pain , redness and mildly fluctuant region followed by onset L 1st MTP redness, pain , edema in addition to L elbow pain although no associated redness or marked edema without fever or chills. In the ED work-up included T 98.3, heart rate 98 , BP 133/80, respiratory rate 16, 98% on room air, CBC with WBC 10.5, hemoglobin 11, platelet 312 with left shift, ESR 42, BMP with glucose 198, CRP 65.8, blood culture ?2 pending per ED, Plain film of the foot with soft tissue edema overlying the medial aspect of the proximal phalanx of the great toe and dorsal aspect of the foot. In the ED patient administered Zosyn therapy. In the ED podiatry consulted and planned in ED aspiration of R 1st MTP and I+D of fluctuant region. Patient was noted in the middle of the night to get suddenly short of breath after she went to the bathroom and had to be transferred to the intensive care unit. Cardiac enzymes were obtained and were noted to be elevated to approximately 8. There were no EKG changes and the patient did not complain of any chest pain. Patient had previously been diagnosed with pulmonary hypertension with pulmonary to systolic pressure about 51 mmHg. This morning she is pain-free she is breathing better after having been on BiPAP through the night with occasional rales at the bases. Past Medical History Allergies/Adverse Reactions: Allergies No Known Allergies Allergy (Verified 02/04/18 14:51) Home Medications: Ambulatory Orders Medication Instructions Recorded Atorvastatin Calcium [Lipitor] 80 mg PO QHS 01/18/17 Cyanocobalamin [Vitamin B12] 1,000 mcg PO DAILY@0800 01/18/17 Estropipate [Ogen (G)] 0.75 mg PO DAILY 01/18/17 Lisinopril [Prinivil] 10 mg PO DAILY 01/18/17 Triamterene 37.5MG/Hctz 25MG 1 cap PO DAILY 01/18/17 [Dyazide (G)] Verapamil HCl [Verapamil ER] 240 mg PO DAILY 01/18/17 gabapentin 300 mg capsule 600 mg PO TID cap 08/23/17 metformin 1,000 mg tablet 1,000 mg PO BIDCM tab 08/23/17 multivitamin tablet 1 tab PO DAILY 08/23/17 Glimepiride [Amaryl] 4 mg PO BID 09/18/17 Hydrocodone/Acetaminophen [[place] 1 each PO BID 09/18/17 5-325 Tablet] Loratadine 10 mg PO DAILY 09/18/17 Ascorbic Acid [Vitamin C] 1,000 mg PO QHS 02/04/18 Ibuprofen [Motrin] 800 mg PO TID PRN PRN 02/04/18 Lidocaine [Lidoderm Patch] 1 patch TRANSDERM. DAILY 02/04/18 Methenamine Hippurate 1 tab PO QHS 02/04/18 Novolin N 35 - 40 units SQ DINNER 02/04/18 Omeprazole [Omeprazole] 20 mg PO DAILY 02/04/18 Victoza 1.2 units SQ BREAKFAST 02/04/18 Past Medical History (Chronic Problems): Chronic Problems (Last Reviewed 11/22/17 @ 13:19 by Sherie Alves) Obesity (BMI 30.0-34.9) (Chronic) HERNANDEZ (dyspnea on exertion) (Chronic) ELDER (obstructive sleep apnea) (Chronic) COPD (chronic obstructive pulmonary disease) (Chronic) Neuropathic pain (Chronic) Allergic rhinitis (Chronic) Asthma (Chronic) Mild asthma (Chronic) Osteoarthritis (Chronic) Hyperlipidemia (Chronic) Hypertension (Chronic) Type 2 diabetes mellitus (Chronic) Surgical History: - - Hysterectomy, tonsillectomy, appendectomy, BLTL. 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 Sibling Family History: Family History (Last Reviewed 11/22/17 @ 13:19 by Sherie Alves) Mother Colon cancer History Items: Diabetes, Heart Disease, - - ELDER Lives: Alone Smoking Status: Former smoker Tobacco Use: Cigarettes Alcohol: None Drugs: None Review of Systems - Review of Systems General: Denies: Fever, Night Sweats, Fatigue Cardiovascular: Reports: Shortness of Breath, Shortness of Breath at Rest. Denies: Chest Discomfort, Orthopnea, PND, Peripheral Edema, Palpitations, Lightheadedness, Dizziness, Near Syncope, Syncope Respiratory: Denies: Cough, Sputum Production, Hemoptysis Gastrointestinal: Denies: Hematemesis, Hematochezia, Melena Genitourinary: Denies: Dysuria, Hematuria Skin: Denies: Rash Subjectve: Pleasant lady in no distress Objective: Vital Signs Temp Pulse Resp BP Pulse Ox 97.8 F 102 H 16 145/91 H 99 02/06/18 04:00 02/06/18 07:00 02/06/18 07:00 02/06/18 07:00 02/06/18 07:00 Oxygen Flow Rate (L/min) 4 Oxygen Delivery Method Nasal Cannula Weight: 166 lb 7.184 oz Body Mass Index (BMI) 30.1 Intake and Output for Last 24 Hours 02/04/18 02/05/18 02/06/18 23:59 23:59 23:59 Intake Total 944 / 944 3770 / 3770 2348.6 / 2348.6 Output Total 850 / 850 600 / 600 Balance 944 / 944 2920 / 2920 1748.6 / 1748.6 General: Awake, Alert, Oriented x 3 HEENT: PERRL, EOMI, Sclera Non Icteric Neck: Supple, Good ROM, No Lymph Node Enlargement Lungs: Rales - Alfredo Bases Cardiovascular: Regular Rhythm, Normal S1, Normal S2, No Murmurs, No Rubs, No Gallops Vascular: No Carotid Bruits, Normal Femoral Pulses, Normal Radial Pulses, Normal Dorsalis Pedal Pulse, Normal Posterior Tibial Pulses Abdomen: Bowel Sounds Present, Soft, Non Tender, No HSM, No Organomegaly Extremities: No Cyanosis, No Clubbing, No edema, - - 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 Neurological: No Focal Motor or Sensory Deficit 02/05/18 09:30: WBC 10.6, RBC 4.08 L, Hgb 10.2 L, Hct 33.7 L, MCV 82.6, MCH 25.0 L, MCHC 30.3 L, RDW 15.7 H, RDW Differential 46.7 H, Plt Count 302, MPV 8.3 , Immature Gran % (Auto) 0.300, Neut % (Auto) 83.2 H, Lymph % (Auto) 5.7 L, [place] % (Auto) 9.7, Eos % (Auto) 0.9, Baso % (Auto) 0.2, Absolute Neuts (auto) 8.8 H, Total Counted Not Reportable 02/05/18 09:30: Iron 20 L, TIBC 323, Iron Saturation 6.2 L, Ferritin 63 02/05/18 19:54: pH 7.12 L*, Bicarbonate Actual 26.1 H, POC Total CO2 28, Base Excess -3 L, O2 Saturation 96, ABG pCO2 80.0 H*, ABG pO2 116 H, [place] Test POS 02/05/18 20:34: WBC 14.0 H, RBC 4.33, Hgb 10.6 L, Hct 35.6 L, MCV 82.2, MCH 24.5 L, MCHC 29.8 L, RDW 15.8 H, RDW Differential 48.1 H, Plt Count 324, MPV 8.4 , Immature Gran % (Auto) 0.100, Neut % (Auto) 93.3 H, Lymph % (Auto) 2.9 L, [place] % (Auto) 3.5, Eos % (Auto) 0.1, Baso % (Auto) 0.1, Absolute Neuts (auto) 13.1 H, Total Counted Not Reportable 02/05/18 20:34: Sodium 134 L, Potassium 4.4, Chloride 99, Carbon Dioxide 27.0, Anion Gap 8, BUN 12, Creatinine 0.88, Est GFR (MDRD) Af Amer 82, Est GFR (MDRD) Non-Af 68, BUN/Creatinine Ratio 13.7, Glucose 363 H, Calcium 8.1 L, Magnesium 2.3, Total Bilirubin 0.50, Troponin I 5.670 H* 02/05/18 20:34: Lactic Acid 2.1 H 02/05/18 20:34: D-Dimer Quant (PE/DVT) 1.88 H* 02/05/18 21:26: pH 7.38, Bicarbonate Actual 27.8 H, POC Total CO2 29, Base Excess 3 H, O2 Saturation 99, ABG pCO2 47.0 H, ABG pO2 139 H, [place] Test POS 02/05/18 23:31: Troponin I 8.340 H* 02/06/18 01:10: Lactic Acid 1.9 02/06/18 03:50: Troponin I 7.690 H* Rhythm: EKG: Sinus rhythm with no acute changes ECHO: Stress Test: Cardiac Cath: PCI: CT Surgery: Holter monitor: EPS: PPM: CXR: Chest CT Scan: No evidence of pulmonary embolism Assessment/Plan 1. Non-ST elevation myocardial infarction. Patient developed acute shortness of breath with evidence of mild pulmonary edema and evidence of non-ST elevation myocardial infarction. Based on this it was felt that the patient should undergo evaluation with a cardiac catheterization. The risk benefits alternatives have been explained to the patient she understands and agrees to proceed this has also been discussed with her son. The patient was loaded with oral clopidogrel as well as aspirin. Depending on the findings further recommendations will be made. 2. Acute pulmonary edema. It appears from the CT scan as well as her physical exam that she may have had an acute pulmonary edema and one needs to exclude significant coronary artery disease as a possible etiology of the above. She will be diuresed with intravenous Lasix and depending on the heart catheterization further recommendations made. 3. Obstructive lung disease pulmonary hypertension. The patient has known pulmonary hypertension by previous echocardiogram the underlying etiology is not entirely clear. She will continue with diuresis and I have taken the liberty of obtaining a pulmonary consultation. Will inform the hospitalist. Thank you for allowing me to participate in the care of your patient. Please don't hesitate to call if any issues arise Addendum. Patient underwent cardiac catheterization this morning which demonstrated the following: Calcified aorta. Calcified left main coronary artery. Distal 70% left main coronary artery stenosis. Proximal high-grade circumflex and then mid total occlusion Left anterior descending artery with 60-70% proximal, and 6070% mid Right coronary artery with 70% mid calcified stenosis and subtotally occluded posterolateral vessel with right to left collaterals Preserved left ventricular systolic function with moderate mitral regurgitation Based on the above angiographic findings it would be preferable for the patient to undergo coronary artery bypass surgery and if that is not possible then high risk intervention would be attempted. The above has been discussed with the interventionalist as well as the cardiac surgeon. The patient will be transferred back to the intensive care unit and then subsequently transferred to [facility] later today.
[2018-02-06] MEDS: Furosemide 40 MG/4 ML Vial IV (07:14)
--- NOTE | 2018-02-06 07:27 | PN_ITS ---
Patient Problems: Active and Suspected Problems (Last Reviewed 11/22/17 @ 13:19 by Sherie Alves ) Pain in right toe(s) (Acute) Cellulitis of right foot (Acute) Abscess of toe of right foot (Acute) Type 2 diabetes mellitus (Acute) Subjective: All events of the past 24 hours of been reviewed. 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 Patient denied any chest pain. She did become diaphoretic. She required BiPAP rescue to keep her oxygen saturation above 90% . EKG showed no ST segment elevation. Chest x-ray showed acute pulmonary edema. CTA of the chest showed no pulmonary embolism. Also showed cholelithiasis and small bilateral pleural effusions. Initial troponin was 5.67 and peaked at 8.34. She was transferred to the intensive care unit and Dr. Gonzalez was consulted. She was given a loading dose of clopidogrel and started on Lovenox 1 mg/kg subcu every 12 hours. Antibiotic Day #3-Zosyn and vancomycin TMAX: Afebrile since admission Vital signs: Current vital signs heart rate 102, blood pressure 145/91, respiratory rate 16 she is 99% saturated on a 4 L nasal cannula. Is somewhat anxious and being prepped for cardiac catheterization. Fluid balance: 600 CC overnight, prior to that no I&O ordered Urine output: Weight: 166 pounds and 7.2 ounces All radiologic testing was reviewed: Flash pulmonary edema on stat portable chest x-ray obtained last night All labs were personally reviewed: Microbiology: No growth on the wound culture from the right foot, final pending Telemetry: ECHO: EKG: Subjective: Chest pain or shortness of breath. She is lying flat in bed without any conversational dyspnea or tachypnea. Nice palpitations. Tells me that the throbbing pain in her right great toe has resolved. She has no pain in the left foot today and the left elbow pain has also resolved. She was treated with 1 dose of prednisone and 1 dose of Toradol yesterday. Objective: General: alert, oriented X3, NAD, appropriate with normal affect Neck: supple, trachea midline, carotids have brisk upstroke and normal pulse volume, no JVD, no carotid bruits Lungs: She has crackles in the right base today, symmetric chest expansion, not tachypneic, able to lie flat with no respiratory distress Heart: Regular rate and rhythm, normal S1, normal S2, no murmur, no gallop, no rub, PMI is on the midclavicular line Abdomen: soft, NT, ND, BS's present Extremities: no edema, no calf tenderness, femoral pulses are 3/3 Skin: The redness over the left forefoot is resolving and there is no longer warmth to touch. I can palpate the left first MTP joint without pain. The erythema over the medial left elbow has resolved and she has no pain. I did not examine the wound on the right foot because she is being prepped for a cardiac catheterization. Will examine following the procedure. She tells me the throbbing pain in her right great toe has resolved. - Physical Exam Vital Signs Temp Pulse Resp BP Pulse Ox 97.8 F 102 H 16 145/91 H 99 02/06/18 04:00 02/06/18 07:00 02/06/18 07:00 02/06/18 07:00 02/06/18 07:00 Oxygen Flow Rate (L/min) 4 Oxygen Delivery Method Nasal Cannula Weight: 166 lb 7.184 oz Body Mass Index (BMI) 30.1 Intake and Output for Last 24 Hours 02/04/18 02/05/18 02/06/18 23:59 23:59 23:59 Intake Total 944 / 944 3770 / 3770 2348.6 / 2348.6 Output Total 850 / 850 600 / 600 Balance 944 / 944 2920 / 2920 1748.6 / 1748.6 Microbiology Past 72 Hours 02/04/18 18:08 Gram Stain - Final Fluid - Bursa Body Fluid Culture - Preliminary No growth-Final to follow 02/04/18 18:08 Gram Stain - Final Wound - Right Foot Wound Culture - Preliminary No growth-Final to follow Laboratory Tests Past 24 Hrs 02/04/18 02/05/18 02/05/18 18:08 09:30 09:30 WBC 10.6 RBC 4.08 L Hgb 10.2 L Hct 33.7 L MCV 82.6 MCH 25.0 L MCHC 30.3 L RDW 15.7 H RDW Differential 46.7 H Plt Count 302 MPV 8.3 Immature Gran % (Auto) 0.300 Neut % (Auto) 83.2 H Lymph % (Auto) 5.7 L [place] % (Auto) 9.7 Eos % (Auto) 0.9 Baso % (Auto) 0.2 Absolute Neuts (auto) 8.8 H Absolute Lymphs (auto) 0.60 L Total Counted Not Reportable Differential Comment COMMENT Platelet Estimate Poikilocytosis Anisocytosis D-Dimer Quant (PE/DVT) Specimen Type Sample Site pH Bicarbonate Actual POC Total CO2 Base Excess O2 Saturation O2 % ABG pCO2 ABG pO2 [place] Test Respiration Rate O2 Delivery Device EPAP IPAP Blood Gas Notified Whom Blood Gas Notified Time Sodium Potassium Chloride Carbon Dioxide Anion Gap BUN Creatinine Estim Creat Clear Calc Est GFR (MDRD) Af Amer Est GFR (MDRD) Non-Af BUN/Creatinine Ratio Glucose Lactic Acid Calcium Magnesium Iron 20 L TIBC 323 Iron Saturation 6.2 L Ferritin 63 Total Bilirubin AST ALT Alkaline Phosphatase Troponin I Total Protein Albumin Globulin Albumin/Globulin Ratio Fl Crystal Path Review Reviewed MRSA (PCR) 02/05/18 02/05/18 02/05/18 19:54 20:25 20:34 WBC 14.0 H RBC 4.33 Hgb 10.6 L Hct 35.6 L MCV 82.2 MCH 24.5 L MCHC 29.8 L RDW 15.8 H RDW Differential 48.1 H Plt Count 324 MPV 8.4 Immature Gran % (Auto) 0.100 Neut % (Auto) 93.3 H Lymph % (Auto) 2.9 L [place] % (Auto) 3.5 Eos % (Auto) 0.1 Baso % (Auto) 0.1 Absolute Neuts (auto) 13.1 H Absolute Lymphs (auto) 0.40 L Total Counted Not Reportable Differential Comment SCANNED Platelet Estimate ADEQUATE Poikilocytosis RARE Anisocytosis 1+ D-Dimer Quant (PE/DVT) Specimen Type ART Sample Site L Radial pH 7.12 L* Bicarbonate Actual 26.1 H POC Total CO2 28 Base Excess -3 L O2 Saturation 96 O2 % 100 ABG pCO2 80.0 H* ABG pO2 116 H [place] Test POS Respiration Rate 22 O2 Delivery Device Bi / C PAP EPAP 8 IPAP 14 Blood Gas Notified Whom [facility] Blood Gas Notified Time 1954 Sodium Potassium Chloride Carbon Dioxide Anion Gap BUN Creatinine Estim Creat Clear Calc Est GFR (MDRD) Af Amer Est GFR (MDRD) Non-Af BUN/Creatinine Ratio Glucose Lactic Acid Calcium Magnesium Iron TIBC Iron Saturation Ferritin Total Bilirubin AST ALT Alkaline Phosphatase Troponin I Total Protein Albumin Globulin Albumin/Globulin Ratio Fl Crystal Path Review MRSA (PCR) POSITIVE H 02/05/18 02/05/18 02/05/18 20:34 20:34 20:34 WBC RBC Hgb Hct MCV MCH MCHC RDW RDW Differential Plt Count MPV Immature Gran % (Auto) Neut % (Auto) Lymph % (Auto) [place] % (Auto) Eos % (Auto) Baso % (Auto) Absolute Neuts (auto) Absolute Lymphs (auto) Total Counted Differential Comment Platelet Estimate Poikilocytosis Anisocytosis D-Dimer Quant (PE/DVT) 1.88 H* Specimen Type Sample Site pH Bicarbonate Actual POC Total CO2 Base Excess O2 Saturation O2 % ABG pCO2 ABG pO2 [place] Test Respiration Rate O2 Delivery Device EPAP IPAP Blood Gas Notified Whom Blood Gas Notified Time Sodium 134 L Potassium 4.4 Chloride 99 Carbon Dioxide 27.0 Anion Gap 8 BUN 12 Creatinine 0.88 Estim Creat Clear Calc 48.39 Est GFR (MDRD) Af Amer 82 Est GFR (MDRD) Non-Af 68 BUN/Creatinine Ratio 13.7 Glucose 363 H Lactic Acid 2.1 H Calcium 8.1 L Magnesium 2.3 Iron TIBC Iron Saturation Ferritin Total Bilirubin 0.50 AST 44 H ALT 19 Alkaline Phosphatase 96 Troponin I 5.670 H* Total Protein 7.2 Albumin 2.3 L Globulin 4.9 H Albumin/Globulin Ratio 0.5 L Fl Crystal Path Review MRSA (PCR) 02/05/18 02/05/18 02/06/18 21:26 23:31 01:10 WBC RBC Hgb Hct MCV MCH MCHC RDW RDW Differential Plt Count MPV Immature Gran % (Auto) Neut % (Auto) Lymph % (Auto) [place] % (Auto) Eos % (Auto) Baso % (Auto) Absolute Neuts (auto) Absolute Lymphs (auto) Total Counted Differential Comment Platelet Estimate Poikilocytosis Anisocytosis D-Dimer Quant (PE/DVT) Specimen Type ART Sample Site L Radial pH 7.38 Bicarbonate Actual 27.8 H POC Total CO2 29 Base Excess 3 H O2 Saturation 99 O2 % 70 ABG pCO2 47.0 H ABG pO2 139 H [place] Test POS Respiration Rate 12 O2 Delivery Device Bi / C PAP EPAP 10 IPAP 20 Blood Gas Notified Whom [facility] Blood Gas Notified Time 2120 Sodium Potassium Chloride Carbon Dioxide Anion Gap BUN Creatinine Estim Creat Clear Calc Est GFR (MDRD) Af Amer Est GFR (MDRD) Non-Af BUN/Creatinine Ratio Glucose Lactic Acid 1.9 Calcium Magnesium Iron TIBC Iron Saturation Ferritin Total Bilirubin AST ALT Alkaline Phosphatase Troponin I 8.340 H* Total Protein Albumin Globulin Albumin/Globulin Ratio Fl Crystal Path Review MRSA (PCR) 02/06/18 03:50 WBC RBC Hgb Hct MCV MCH MCHC RDW RDW Differential Plt Count MPV Immature Gran % (Auto) Neut % (Auto) Lymph % (Auto) [place] % (Auto) Eos % (Auto) Baso % (Auto) Absolute Neuts (auto) Absolute Lymphs (auto) Total Counted Differential Comment Platelet Estimate Poikilocytosis Anisocytosis D-Dimer Quant (PE/DVT) Specimen Type Sample Site pH Bicarbonate Actual POC Total CO2 Base Excess O2 Saturation O2 % ABG pCO2 ABG pO2 [place] Test Respiration Rate O2 Delivery Device EPAP IPAP Blood Gas Notified Whom Blood Gas Notified Time Sodium Potassium Chloride Carbon Dioxide Anion Gap BUN Creatinine Estim Creat Clear Calc Est GFR (MDRD) Af Amer Est GFR (MDRD) Non-Af BUN/Creatinine Ratio Glucose Lactic Acid Calcium Magnesium Iron TIBC Iron Saturation Ferritin Total Bilirubin AST ALT Alkaline Phosphatase Troponin I 7.690 H* Total Protein Albumin Globulin Albumin/Globulin Ratio Fl Crystal Path Review MRSA (PCR) POC Glucose 02/06/18 02/05/18 02/05/18 06:55 21:40 19:39 POC Glucose 377 H 387 H 408 H 02/05/18 02/05/18 02/05/18 16:47 14:25 10:40 POC Glucose 257 H 239 H 284 H Medical Necessity - Tobacco Use Smoking Status: Former smoker Tobacco Use: Cigarettes Assessment/Plan Active and Suspected Problems (Last Reviewed 11/22/17 @ 13:19 by Sherie Alves ) Pain in right toe(s) (Acute) Cellulitis of right foot (Acute) Abscess of toe of right foot (Acute) Type 2 diabetes mellitus (Acute) Impressions 1. Cellulitis of the R foot 2. Acute gouty arthritis 3. DM II 4. Obesity 5. COPD 6. Diabetic neuropathy 7. Allergic rhinitis 8. Osteoarthritis 9. Hyperlipidemia 10. Hypertension 11. GERD 12. ELDER 13. NSTEMI with Flash pulmonary edema Continue current antibiotics Patient is being sent for cardiac catheterization today. Will discontinue estrogen supplementation as she has multiple risk factors for coronary artery disease and now and NSTEMI. Will see her again once the cath is concluded and examine the wound. Code Visit Inpatient E&M: 54675 Subs Hosp L3
[2018-02-06] MEDS: 0.9% Normal Saline 1,000 ML 15 ML IV (07:28)
--- NOTE | 2018-02-06 07:54 | PCM.CON.CC ---
Reason for Consult Date of Consultation: 02/06/18 Reason for Consultation: Acute respiratory failure History of Present Illness: The patient is a 67-year-old female, with a history as outlined below, who initially presented to the emergency department on February 04 with right great toe swelling, erythema and pain. The patient was evaluated by podiatry and infectious diseases. Aspiration was completed of an abscess identified in the right great toe. She is currently on antibiotics for the aforementioned along with cellulitis. She also has noted gouty arthritis of her left foot. The patient's hospital course had been uncomplicated until the evening of February 05, at which time, a rapid response was called in response to acute onset shortness of breath/respiratory distress. The patient required initiation of bilevel therapy after an initial arterial blood gas revealed a pH of 7.12 with a corresponding PCO2 of 80. She was noted to have an elevated d-dimer level to 1.88, along with an elevated troponin which peaked at 8.34. A subsequent CTA chest revealed no evidence for pulmonary embolism. There was evidence of both pulmonary edema and small bilateral pleural effusions. The patient was subsequently transferred to the medical intensive care unit. She was evaluated by cardiology this morning. A Allen catheter was placed and she was administered IV Lasix. The patient was then taken to the cardiac catheterization lab for coronary angiography. The patient has a history of COPD and obstructive sleep apnea, for which she follows with me in the pulmonary medicine clinic. I last saw her in November 2017. Pulmonary function testing completed in March 2017 revealed the presence of a mild large airways obstructive ventilatory defect with an associated significant response to aerosolized bronchodilators, hyperinflation, air trapping and a mild reduction in diffuse opacity. The patient was reportedly seen previously by an pharmaceutical analyst and diagnosed with asthma. 6 minute walk test did reveal evidence of significant exertional oxygen desaturation, but did not meet inclusion criteria with use of supplemental oxygen. Patient does have a limited smoking history, having quit completely 24 years ago. She also underwent evaluation with a polysomnogram, which revealed evidence of obstructive sleep apnea. She is currently prescribed bilevel therapy with a pressure setting of 13/9 cm of water with medication. At her last office visit with me, she had demonstrated 100% compliance with its use. The patient does not use supplemental oxygen at her baseline. She is currently prescribed only a rescue inhaler at her baseline. Past Medical History Past Medical History (Chronic Problems): Chronic Problems (Last Reviewed 11/22/17 @ 13:19 by Sherie Alves) Obesity (BMI 30.0-34.9) (Chronic) HERNANDEZ (dyspnea on exertion) (Chronic) ELDER (obstructive sleep apnea) (Chronic) COPD (chronic obstructive pulmonary disease) (Chronic) Neuropathic pain (Chronic) Allergic rhinitis (Chronic) Asthma (Chronic) Mild asthma (Chronic) Osteoarthritis (Chronic) Hyperlipidemia (Chronic) Hypertension (Chronic) Type 2 diabetes mellitus (Chronic) Allergies No Known Allergies Allergy (Verified 02/04/18 14:51) Home Medications: Ambulatory Orders Medication Instructions Recorded Atorvastatin Calcium [Lipitor] 80 mg PO QHS 01/18/17 Cyanocobalamin [Vitamin B12] 1,000 mcg PO DAILY@0800 01/18/17 Estropipate [Ogen (G)] 0.75 mg PO DAILY 01/18/17 Lisinopril [Prinivil] 10 mg PO DAILY 01/18/17 Triamterene 37.5MG/Hctz 25MG 1 cap PO DAILY 01/18/17 [Dyazide (G)] Verapamil HCl [Verapamil ER] 240 mg PO DAILY 01/18/17 gabapentin 300 mg capsule 600 mg PO TID cap 08/23/17 metformin 1,000 mg tablet 1,000 mg PO BIDCM tab 08/23/17 multivitamin tablet 1 tab PO DAILY 08/23/17 Glimepiride [Amaryl] 4 mg PO BID 09/18/17 Hydrocodone/Acetaminophen [[place] 1 each PO BID 09/18/17 5-325 Tablet] Loratadine 10 mg PO DAILY 09/18/17 Ascorbic Acid [Vitamin C] 1,000 mg PO QHS 02/04/18 Ibuprofen [Motrin] 800 mg PO TID PRN PRN 02/04/18 Lidocaine [Lidoderm Patch] 1 patch TRANSDERM. DAILY 02/04/18 Methenamine Hippurate 1 tab PO QHS 02/04/18 Novolin N 35 - 40 units SQ DINNER 02/04/18 Omeprazole [Omeprazole] 20 mg PO DAILY 02/04/18 Victoza 1.2 units SQ BREAKFAST 02/04/18 Surgical History: - - Hysterectomy, tonsillectomy, appendectomy, BLTL. 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 Sibling History Items: Diabetes, Heart Disease, - - ELDER Review of Systems Constitutional: Denies: Chills, Fever, Night Sweats Eyes: Denies: Blurred vision, Double vision HEENT: Denies: Head Aches, Sinus Congestion, Sinus Drainage Cardiovascular: Denies: Chest Pain, Palpitations Respiratory: Reports: Cough, Shortness of Breath. Denies: Shortness of breath at rest, Sputum production Gastrointestinal: Denies: Abdominal Pain, Nausea, Vomiting Genitourinary: Denies: Dysuria Musculoskeletal: Reports: Foot Pain Skin: Reports: Skin Changes Neurological: Denies: Numbness, Tingling, Focal weakness Psychiatric: Denies: Anxiety, Depression, Homicidal Ideations, Suicidal Ideations Hematologic/ Lymphatic: Denies: Easy Bruising, Easy Bleeding Patient Problems: Active and Suspected Problems (Last Reviewed 11/22/17 @ 13:19 by Sherie Alves) Pain in right toe(s) (Acute) Cellulitis of right foot (Acute) Abscess of toe of right foot (Acute) Type 2 diabetes mellitus (Acute) Objective: The patient's most recent lab work, culture data and imaging studies have all been personally reviewed. Wound and blood cultures are pending. Surface echocardiogram dated January 2017 revealed evidence of diastolic dysfunction with preserved ejection fraction. Pulmonary artery systolic pressure was estimated to be 51 mmHg. CTA chest revealed no evidence of pulmonary embolism. There was, nonetheless, evidence of pulmonary edema and small bilateral pleural effusions. - Physical Exam General: Alert, Oriented x3, Cooperative, No apparent distress HEENT: Atraumatic, PERRLA, Normocephalic Oral: No Gingival or Mucosal Lesions/ Ulcerations Neck: Supple, Negative Hepatojugular Reflux, Trachea Midline Lungs: Diminished, - - Bibasilar rales Cardiovascular: Normal S1, Normal S2, No murmurs, No rub noted, No Gallop, Tachycardic Abdomen: Bowel Sounds Present, Soft, Non Tender Extremities: No clubbing, No cyanosis, No edema Skin: - - Wrapped right lower extremity Musculoskeletal: No Muscle Wasting Lymphatic: No Cervical, Supraclavicular, or Inguinal Adenopathy Neurological: Neuro grossly intact Psych/Mental Status: Alert and oriented to time, place, person, mood and affect Vital Signs Temp Pulse Resp BP Pulse Ox 97.8 F 102 H 16 145/91 H 99 02/06/18 04:00 02/06/18 07:00 02/06/18 07:00 02/06/18 07:00 02/06/18 07:00 Oxygen Flow Rate (L/min) 4 Oxygen Delivery Method Nasal Cannula Weight: 166 lb 7.184 oz Body Mass Index (BMI) 30.1 Intake and Output for Last 24 Hours 02/04/18 02/05/18 02/06/18 23:59 23:59 23:59 Intake Total 944 / 944 3770 / 3770 2348.6 / 2348.6 Output Total 850 / 850 600 / 600 Balance 944 / 944 2920 / 2920 1748.6 / 1748.6 Microbiology Past 72 Hours 02/04/18 18:08 Gram Stain - Final Fluid - Bursa Body Fluid Culture - Preliminary No growth-Final to follow 02/04/18 18:08 Gram Stain - Final Wound - Right Foot Wound Culture - Preliminary No growth-Final to follow Laboratory Tests Past 24 Hrs 02/04/18 02/05/18 02/05/18 18:08 09:30 09:30 WBC 10.6 RBC 4.08 L Hgb 10.2 L Hct 33.7 L MCV 82.6 MCH 25.0 L MCHC 30.3 L RDW 15.7 H RDW Differential 46.7 H Plt Count 302 MPV 8.3 Immature Gran % (Auto) 0.300 Neut % (Auto) 83.2 H Lymph % (Auto) 5.7 L [place] % (Auto) 9.7 Eos % (Auto) 0.9 Baso % (Auto) 0.2 Absolute Neuts (auto) 8.8 H Absolute Lymphs (auto) 0.60 L Total Counted Not Reportable Differential Comment COMMENT Platelet Estimate Poikilocytosis Anisocytosis D-Dimer Quant (PE/DVT) Specimen Type Sample Site pH Bicarbonate Actual POC Total CO2 Base Excess O2 Saturation O2 % ABG pCO2 ABG pO2 [place] Test Respiration Rate O2 Delivery Device EPAP IPAP Blood Gas Notified Whom Blood Gas Notified Time Sodium Potassium Chloride Carbon Dioxide Anion Gap BUN Creatinine Estim Creat Clear Calc Est GFR (MDRD) Af Amer Est GFR (MDRD) Non-Af BUN/Creatinine Ratio Glucose Lactic Acid Calcium Magnesium Iron 20 L TIBC 323 Iron Saturation 6.2 L Ferritin 63 Total Bilirubin AST ALT Alkaline Phosphatase Troponin I Total Protein Albumin Globulin Albumin/Globulin Ratio Fl Crystal Path Review Reviewed MRSA (PCR) 02/05/18 02/05/18 02/05/18 19:54 20:25 20:34 WBC 14.0 H RBC 4.33 Hgb 10.6 L Hct 35.6 L MCV 82.2 MCH 24.5 L MCHC 29.8 L RDW 15.8 H RDW Differential 48.1 H Plt Count 324 MPV 8.4 Immature Gran % (Auto) 0.100 Neut % (Auto) 93.3 H Lymph % (Auto) 2.9 L [place] % (Auto) 3.5 Eos % (Auto) 0.1 Baso % (Auto) 0.1 Absolute Neuts (auto) 13.1 H Absolute Lymphs (auto) 0.40 L Total Counted Not Reportable Differential Comment SCANNED Platelet Estimate ADEQUATE Poikilocytosis RARE Anisocytosis 1+ D-Dimer Quant (PE/DVT) Specimen Type ART Sample Site L Radial pH 7.12 L* Bicarbonate Actual 26.1 H POC Total CO2 28 Base Excess -3 L O2 Saturation 96 O2 % 100 ABG pCO2 80.0 H* ABG pO2 116 H [place] Test POS Respiration Rate 22 O2 Delivery Device Bi / C PAP EPAP 8 IPAP 14 Blood Gas Notified Whom HOSP Blood Gas Notified Time 1954 Sodium Potassium Chloride Carbon Dioxide Anion Gap BUN Creatinine Estim Creat Clear Calc Est GFR (MDRD) Af Amer Est GFR (MDRD) Non-Af BUN/Creatinine Ratio Glucose Lactic Acid Calcium Magnesium Iron TIBC Iron Saturation Ferritin Total Bilirubin AST ALT Alkaline Phosphatase Troponin I Total Protein Albumin Globulin Albumin/Globulin Ratio Fl Crystal Path Review MRSA (PCR) POSITIVE H 02/05/18 02/05/18 02/05/18 20:34 20:34 20:34 WBC RBC Hgb Hct MCV MCH MCHC RDW RDW Differential Plt Count MPV Immature Gran % (Auto) Neut % (Auto) Lymph % (Auto) [place] % (Auto) Eos % (Auto) Baso % (Auto) Absolute Neuts (auto) Absolute Lymphs (auto) Total Counted Differential Comment Platelet Estimate Poikilocytosis Anisocytosis D-Dimer Quant (PE/DVT) 1.88 H* Specimen Type Sample Site pH Bicarbonate Actual POC Total CO2 Base Excess O2 Saturation O2 % ABG pCO2 ABG pO2 [place] Test Respiration Rate O2 Delivery Device EPAP IPAP Blood Gas Notified Whom Blood Gas Notified Time Sodium 134 L Potassium 4.4 Chloride 99 Carbon Dioxide 27.0 Anion Gap 8 BUN 12 Creatinine 0.88 Estim Creat Clear Calc 48.39 Est GFR (MDRD) Af Amer 82 Est GFR (MDRD) Non-Af 68 BUN/Creatinine Ratio 13.7 Glucose 363 H Lactic Acid 2.1 H Calcium 8.1 L Magnesium 2.3 Iron TIBC Iron Saturation Ferritin Total Bilirubin 0.50 AST 44 H ALT 19 Alkaline Phosphatase 96 Troponin I 5.670 H* Total Protein 7.2 Albumin 2.3 L Globulin 4.9 H Albumin/Globulin Ratio 0.5 L Fl Crystal Path Review MRSA (PCR) 02/05/18 02/05/18 02/06/18 21:26 23:31 01:10 WBC RBC Hgb Hct MCV MCH MCHC RDW RDW Differential Plt Count MPV Immature Gran % (Auto) Neut % (Auto) Lymph % (Auto) [place] % (Auto) Eos % (Auto) Baso % (Auto) Absolute Neuts (auto) Absolute Lymphs (auto) Total Counted Differential Comment Platelet Estimate Poikilocytosis Anisocytosis D-Dimer Quant (PE/DVT) Specimen Type ART Sample Site L Radial pH 7.38 Bicarbonate Actual 27.8 H POC Total CO2 29 Base Excess 3 H O2 Saturation 99 O2 % 70 ABG pCO2 47.0 H ABG pO2 139 H [place] Test POS Respiration Rate 12 O2 Delivery Device Bi / C PAP EPAP 10 IPAP 20 Blood Gas Notified Whom [facility] Blood Gas Notified Time 212 Sodium Potassium Chloride Carbon Dioxide Anion Gap BUN Creatinine Estim Creat Clear Calc Est GFR (MDRD) Af Amer Est GFR (MDRD) Non-Af BUN/Creatinine Ratio Glucose Lactic Acid 1.9 Calcium Magnesium Iron TIBC Iron Saturation Ferritin Total Bilirubin AST ALT Alkaline Phosphatase Troponin I 8.340 H* Total Protein Albumin Globulin Albumin/Globulin Ratio Fl Crystal Path Review MRSA (PCR) 02/06/18 03:50 WBC RBC Hgb Hct MCV MCH MCHC RDW RDW Differential Plt Count MPV Immature Gran % (Auto) Neut % (Auto) Lymph % (Auto) [place] % (Auto) Eos % (Auto) Baso % (Auto) Absolute Neuts (auto) Absolute Lymphs (auto) Total Counted Differential Comment Platelet Estimate Poikilocytosis Anisocytosis D-Dimer Quant (PE/DVT) Specimen Type Sample Site pH Bicarbonate Actual POC Total CO2 Base Excess O2 Saturation O2 % ABG pCO2 ABG pO2 [place] Test Respiration Rate O2 Delivery Device EPAP IPAP Blood Gas Notified Whom Blood Gas Notified Time Sodium Potassium Chloride Carbon Dioxide Anion Gap BUN Creatinine Estim Creat Clear Calc Est GFR (MDRD) Af Amer Est GFR (MDRD) Non-Af BUN/Creatinine Ratio Glucose Lactic Acid Calcium Magnesium Iron TIBC Iron Saturation Ferritin Total Bilirubin AST ALT Alkaline Phosphatase Troponin I 7.690 H* Total Protein Albumin Globulin Albumin/Globulin Ratio Fl Crystal Path Review MRSA (PCR) POC Glucose 02/06/18 02/05/18 02/05/18 06:55 21:40 19:39 POC Glucose 377 H 387 H 408 H 02/05/18 02/05/18 02/05/18 16:47 14:25 10:40 POC Glucose 257 H 239 H 284 H Clinical Impression(s) from Imaging Studies Foot X-Ray 02/04/18 15:10 IMPRESSION: Soft tissue swelling overlying the medial aspect of the proximal phalanx of the great toe and dorsal aspect of the foot. Electronically Signed: Mack Browne MD at 16:07 EDT Tel [phone], Service support , Chest X-Ray 02/05/18 20:30 IMPRESSION: Interval development of patchy interstitial densities consider asymmetric edema and/or atypical infiltrates. Electronically Signed: Faye Rojas MD at 21:34 EDT Tel , Service support , Chest CTA 02/06/18 21:22 IMPRESSION: No demonstrated pulmonary embolism or arterial dissection. Pulmonary edema and small bilateral pleural effusions. Cholelithiasis. Electronically Signed: Eugenio Novak MD at 2:53 EDT Tel , Service support , Assessment/Plan Active and Suspected Problems (Last Reviewed 11/22/17 @ 13:19 by Sherie Alves) Pain in right toe(s) (Acute) Cellulitis of right foot (Acute) Abscess of toe of right foot (Acute) Type 2 diabetes mellitus (Acute) RECOMMENDATIONS: 1. Proceed with cardiac catheterization 2. As needed aerosol treatments 3. Continue antibiotics 4. Start home BiPAP therapy 13/9 cm of water with naps and nightly 5. Wean supplemental oxygen as tolerated 6. Continue attempts at diuresis IMPRESSIONS: 1. Acute hypoxemic and hypercarbic respiratory failure secondary to flash pulmonary edema The patient had appears to have responded appropriately to the use of bilevel therapy along with diuretics. Her oxygen requirement has been weaned accordingly. Supplemental oxygen can continue to be weaned to maintain a saturation at or above 90%. Continue medical management per cardiology recommendations. 2. Non-ST elevation myocardial infarction Plans for cardiac catheterization this morning. Further recommendations will be forthcoming depending on the outcome of the patient's coronary angiography. 3. Personal history of mild COPD/obstructive sleep apnea Continue as needed aerosol treatments. The patient only utilizes an albuterol rescue inhaler in her home environment. She does not have a baseline supplemental oxygen requirement. Patient does utilize bilevel therapy on a nocturnal basis with a pressure setting of 13/9 cm of water with the modification. Orders have been placed for BiPAP to be utilized with naps and nightly. 4. Right foot abscess/cellulitis Continue antibiotics and local wound care as ordered. 5. Obesity/diabetes/neuropathy/hypertension/hyperlipidemia Complicates care, management, recovery and prognosis. Continue Accu-Cheks and current insulin regimen. ADDENDUM: Cardiac catheterization revealed severe triple-vessel coronary artery disease, which will require surgical intervention. The patient is currently being considered for transfer to a tertiary care facility accordingly. This note was generated with [employer] dictation software. It may contain incorrect words, spelling, and punctuation that were not noted in checking the note before signing. Code Visit Inpatient E&M: 12967 Init Hosp L3
--- NOTE | 2018-02-06 08:04 | CON.PCM_ITS ---
Reason for Consult Date of Consultation: 02/06/18 Reason for Consultation: Acute respiratory failure History of Present Illness: The patient is a 67-year-old female, with a history as outlined below, who initially presented to the emergency department on February 04 with right great toe swelling, erythema and pain. The patient was evaluated by podiatry and infectious diseases. Aspiration was completed of an abscess identified in the right great toe. She is currently on antibiotics for the aforementioned along with cellulitis. She also has noted gouty arthritis of her left foot. The patient's hospital course had been uncomplicated until the evening of February 05, at which time, a rapid response was called in response to acute onset shortness of breath/respiratory distress. The patient required initiation of bilevel therapy after an initial arterial blood gas revealed a pH of 7.12 with a corresponding PCO2 of 80. She was noted to have an elevated d-dimer level to 1.88, along with an elevated troponin which peaked at 8.34. A subsequent CTA chest revealed no evidence for pulmonary embolism. There was evidence of both pulmonary edema and small bilateral pleural effusions. The patient was subsequently transferred to the medical intensive care unit. She was evaluated by cardiology this morning. A Allen catheter was placed and she was administered IV Lasix. The patient was then taken to the cardiac catheterization lab for coronary angiography. The patient has a history of COPD and obstructive sleep apnea, for which she follows with me in the pulmonary medicine clinic. I last saw her in November 2017. Pulmonary function testing completed in March 2017 revealed the presence of a mild large airways obstructive ventilatory defect with an associated significant response to aerosolized bronchodilators, hyperinflation, air trapping and a mild reduction in diffuse opacity. The patient was reportedly seen previously by an leather shaver and diagnosed with asthma. 6 minute walk test did reveal evidence of significant exertional oxygen desaturation, but did not meet inclusion criteria with use of supplemental oxygen. Patient does have a limited smoking history, having quit completely 24 years ago. She also underwent evaluation with a polysomnogram, which revealed evidence of obstructive sleep apnea. She is currently prescribed bilevel therapy with a pressure setting of 13/9 cm of water with medication. At her last office visit with me, she had demonstrated 100% compliance with its use. The patient does not use supplemental oxygen at her baseline. She is currently prescribed only a rescue inhaler at her baseline. Past Medical History Past Medical History (Chronic Problems): Chronic Problems (Last Reviewed 11/22/17 @ 13:19 by Sherie Alves) Obesity (BMI 30.0-34.9) (Chronic) HERNANDEZ (dyspnea on exertion) (Chronic) ELDER (obstructive sleep apnea) (Chronic) COPD (chronic obstructive pulmonary disease) (Chronic) Neuropathic pain (Chronic) Allergic rhinitis (Chronic) Asthma (Chronic) Mild asthma (Chronic) Osteoarthritis (Chronic) Hyperlipidemia (Chronic) Hypertension (Chronic) Type 2 diabetes mellitus (Chronic) Allergies No Known Allergies Allergy (Verified 02/04/18 14:51) Home Medications: Ambulatory Orders Medication Instructions Recorded Atorvastatin Calcium [Lipitor] 80 mg PO QHS 01/18/17 Cyanocobalamin [Vitamin B12] 1,000 mcg PO DAILY@0800 01/18/17 Estropipate [Ogen (G)] 0.75 mg PO DAILY 01/18/17 Lisinopril [Prinivil] 10 mg PO DAILY 01/18/17 Triamterene 37.5MG/Hctz 25MG 1 cap PO DAILY 01/18/17 [Dyazide (G)] Verapamil HCl [Verapamil ER] 240 mg PO DAILY 01/18/17 gabapentin 300 mg capsule 600 mg PO TID cap 08/23/17 metformin 1,000 mg tablet 1,000 mg PO BIDCM tab 08/23/17 multivitamin tablet 1 tab PO DAILY 08/23/17 Glimepiride [Amaryl] 4 mg PO BID 09/18/17 Hydrocodone/Acetaminophen [[place] 1 each PO BID 09/18/17 5-325 Tablet] Loratadine 10 mg PO DAILY 09/18/17 Ascorbic Acid [Vitamin C] 1,000 mg PO QHS 02/04/18 Ibuprofen [Motrin] 800 mg PO TID PRN PRN 02/04/18 Lidocaine [Lidoderm Patch] 1 patch TRANSDERM. DAILY 02/04/18 Methenamine Hippurate 1 tab PO QHS 02/04/18 Novolin N 35 - 40 units SQ DINNER 02/04/18 Omeprazole [Omeprazole] 20 mg PO DAILY 02/04/18 Victoza 1.2 units SQ BREAKFAST 02/04/18 Surgical History: - - Hysterectomy, tonsillectomy, appendectomy, BLTL. 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 Sibling History Items: Diabetes, Heart Disease, - - ELDER Review of Systems Constitutional: Denies: Chills, Fever, Night Sweats Eyes: Denies: Blurred vision, Double vision HEENT: Denies: Head Aches, Sinus Congestion, Sinus Drainage Cardiovascular: Denies: Chest Pain, Palpitations Respiratory: Reports: Cough, Shortness of Breath. Denies: Shortness of breath at rest, Sputum production Gastrointestinal: Denies: Abdominal Pain, Nausea, Vomiting Genitourinary: Denies: Dysuria Musculoskeletal: Reports: Foot Pain Skin: Reports: Skin Changes Neurological: Denies: Numbness, Tingling, Focal weakness Psychiatric: Denies: Anxiety, Depression, Homicidal Ideations, Suicidal Ideations Hematologic/ Lymphatic: Denies: Easy Bruising, Easy Bleeding Patient Problems: Active and Suspected Problems (Last Reviewed 11/22/17 @ 13:19 by Sherie Alves ) Pain in right toe(s) (Acute) Cellulitis of right foot (Acute) Abscess of toe of right foot (Acute) Type 2 diabetes mellitus (Acute) Objective: The patient's most recent lab work, culture data and imaging studies have all been personally reviewed. Wound and blood cultures are pending. Surface echocardiogram dated January 2017 revealed evidence of diastolic dysfunction with preserved ejection fraction. Pulmonary artery systolic pressure was estimated to be 51 mmHg. CTA chest revealed no evidence of pulmonary embolism. There was , nonetheless, evidence of pulmonary edema and small bilateral pleural effusions. - Physical Exam General: Alert, Oriented x3, Cooperative, No apparent distress HEENT: Atraumatic, PERRLA, Normocephalic Oral: No Gingival or Mucosal Lesions/ Ulcerations Neck: Supple, Negative Hepatojugular Reflux, Trachea Midline Lungs: Diminished, - - Bibasilar rales Cardiovascular: Normal S1, Normal S2, No murmurs, No rub noted, No Gallop, Tachycardic Abdomen: Bowel Sounds Present, Soft, Non Tender Extremities: No clubbing, No cyanosis, No edema Skin: - - Wrapped right lower extremity Musculoskeletal: No Muscle Wasting Lymphatic: No Cervical, Supraclavicular, or Inguinal Adenopathy Neurological: Neuro grossly intact Psych/Mental Status: Alert and oriented to time, place, person, mood and affect Vital Signs Temp Pulse Resp BP Pulse Ox 97.8 F 102 H 16 145/91 H 99 02/06/18 04:00 02/06/18 07:00 02/06/18 07:00 02/06/18 07:00 02/06/18 07:00 Oxygen Flow Rate (L/min) 4 Oxygen Delivery Method Nasal Cannula Weight: 166 lb 7.184 oz Body Mass Index (BMI) 30.1 Intake and Output for Last 24 Hours 02/04/18 02/05/18 02/06/18 23:59 23:59 23:59 Intake Total 944 / 944 3770 / 3770 2348.6 / 2348.6 Output Total 850 / 850 600 / 600 Balance 944 / 944 2920 / 2920 1748.6 / 1748.6 Microbiology Past 72 Hours 02/04/18 18:08 Gram Stain - Final Fluid - Bursa Body Fluid Culture - Preliminary No growth-Final to follow 02/04/18 18:08 Gram Stain - Final Wound - Right Foot Wound Culture - Preliminary No growth-Final to follow Laboratory Tests Past 24 Hrs 02/04/18 02/05/18 02/05/18 18:08 09:30 09:30 WBC 10.6 RBC 4.08 L Hgb 10.2 L Hct 33.7 L MCV 82.6 MCH 25.0 L MCHC 30.3 L RDW 15.7 H RDW Differential 46.7 H Plt Count 302 MPV 8.3 Immature Gran % (Auto) 0.300 Neut % (Auto) 83.2 H Lymph % (Auto) 5.7 L [place] % (Auto) 9.7 Eos % (Auto) 0.9 Baso % (Auto) 0.2 Absolute Neuts (auto) 8.8 H Absolute Lymphs (auto) 0.60 L Total Counted Not Reportable Differential Comment COMMENT Platelet Estimate Poikilocytosis Anisocytosis D-Dimer Quant (PE/DVT) Specimen Type Sample Site pH Bicarbonate Actual POC Total CO2 Base Excess O2 Saturation O2 % ABG pCO2 ABG pO2 [place] Test Respiration Rate O2 Delivery Device EPAP IPAP Blood Gas Notified Whom Blood Gas Notified Time Sodium Potassium Chloride Carbon Dioxide Anion Gap BUN Creatinine Estim Creat Clear Calc Est GFR (MDRD) Af Amer Est GFR (MDRD) Non-Af BUN/Creatinine Ratio Glucose Lactic Acid Calcium Magnesium Iron 20 L TIBC 323 Iron Saturation 6.2 L Ferritin 63 Total Bilirubin AST ALT Alkaline Phosphatase Troponin I Total Protein Albumin Globulin Albumin/Globulin Ratio Fl Crystal Path Review Reviewed MRSA (PCR) 02/05/18 02/05/18 02/05/18 19:54 20:25 20:34 WBC 14.0 H RBC 4.33 Hgb 10.6 L Hct 35.6 L MCV 82.2 MCH 24.5 L MCHC 29.8 L RDW 15.8 H RDW Differential 48.1 H Plt Count 324 MPV 8.4 Immature Gran % (Auto) 0.100 Neut % (Auto) 93.3 H Lymph % (Auto) 2.9 L [place] % (Auto) 3.5 Eos % (Auto) 0.1 Baso % (Auto) 0.1 Absolute Neuts (auto) 13.1 H Absolute Lymphs (auto) 0.40 L Total Counted Not Reportable Differential Comment SCANNED Platelet Estimate ADEQUATE Poikilocytosis RARE Anisocytosis 1+ D-Dimer Quant (PE/DVT) Specimen Type ART Sample Site L Radial pH 7.12 L* Bicarbonate Actual 26.1 H POC Total CO2 28 Base Excess -3 L O2 Saturation 96 O2 % 100 ABG pCO2 80.0 H* ABG pO2 116 H [place] Test POS Respiration Rate 22 O2 Delivery Device Bi / C PAP EPAP 8 IPAP 14 Blood Gas Notified Whom HOSP Blood Gas Notified Time 1954 Sodium Potassium Chloride Carbon Dioxide Anion Gap BUN Creatinine Estim Creat Clear Calc Est GFR (MDRD) Af Amer Est GFR (MDRD) Non-Af BUN/Creatinine Ratio Glucose Lactic Acid Calcium Magnesium Iron TIBC Iron Saturation Ferritin Total Bilirubin AST ALT Alkaline Phosphatase Troponin I Total Protein Albumin Globulin Albumin/Globulin Ratio Fl Crystal Path Review MRSA (PCR) POSITIVE H 02/05/18 02/05/18 02/05/18 20:34 20:34 20:34 WBC RBC Hgb Hct MCV MCH MCHC RDW RDW Differential Plt Count MPV Immature Gran % (Auto) Neut % (Auto) Lymph % (Auto) Cid[place] % (Auto) Eos % (Auto) Baso % (Auto) Absolute Neuts (auto) Absolute Lymphs (auto) Total Counted Differential Comment Platelet Estimate Poikilocytosis Anisocytosis D-Dimer Quant (PE/DVT) 1.88 H* Specimen Type Sample Site pH Bicarbonate Actual POC Total CO2 Base Excess O2 Saturation O2 % ABG pCO2 ABG pO2 Wil[place] Test Respiration Rate O2 Delivery Device EPAP IPAP Blood Gas Notified Whom Blood Gas Notified Time Sodium 134 L Potassium 4.4 Chloride 99 Carbon Dioxide 27.0 Anion Gap 8 BUN 12 Creatinine 0.88 Estim Creat Clear Calc 48.39 Est GFR (MDRD) Af Amer 82 Est GFR (MDRD) Non-Af 68 BUN/Creatinine Ratio 13.7 Glucose 363 H Lactic Acid 2.1 H Calcium 8.1 L Magnesium 2.3 Iron TIBC Iron Saturation Ferritin Total Bilirubin 0.50 AST 44 H ALT 19 Alkaline Phosphatase 96 Troponin I 5.670 H* Total Protein 7.2 Albumin 2.3 L Globulin 4.9 H Albumin/Globulin Ratio 0.5 L Fl Crystal Path Review MRSA (PCR) 02/05/18 02/05/18 02/06/18 21:26 23:31 01:10 WBC RBC Hgb Hct MCV MCH MCHC RDW RDW Differential Plt Count MPV Immature Gran % (Auto) Neut % (Auto) Lymph % (Auto) C[place] % (Auto) Eos % (Auto) Baso % (Auto) Absolute Neuts (auto) Absolute Lymphs (auto) Total Counted Differential Comment Platelet Estimate Poikilocytosis Anisocytosis D-Dimer Quant (PE/DVT) Specimen Type ART Sample Site L Radial pH 7.38 Bicarbonate Actual 27.8 H POC Total CO2 29 Base Excess 3 H O2 Saturation 99 O2 % 70 ABG pCO2 47.0 H ABG pO2 139 H Wil[place] Test POS Respiration Rate 12 O2 Delivery Device Bi / C PAP EPAP 10 IPAP 20 Blood Gas Notified Whom [facility] Blood Gas Notified Time 212 Sodium Potassium Chloride Carbon Dioxide Anion Gap BUN Creatinine Estim Creat Clear Calc Est GFR (MDRD) Af Amer Est GFR (MDRD) Non-Af BUN/Creatinine Ratio Glucose Lactic Acid 1.9 Calcium Magnesium Iron TIBC Iron Saturation Ferritin Total Bilirubin AST ALT Alkaline Phosphatase Troponin I 8.340 H* Total Protein Albumin Globulin Albumin/Globulin Ratio Fl Crystal Path Review MRSA (PCR) 02/06/18 03:50 WBC RBC Hgb Hct MCV MCH MCHC RDW RDW Differential Plt Count MPV Immature Gran % (Auto) Neut % (Auto) Lymph % (Auto) C[place] % (Auto) Eos % (Auto) Baso % (Auto) Absolute Neuts (auto) Absolute Lymphs (auto) Total Counted Differential Comment Platelet Estimate Poikilocytosis Anisocytosis D-Dimer Quant (PE/DVT) Specimen Type Sample Site pH Bicarbonate Actual POC Total CO2 Base Excess O2 Saturation O2 % ABG pCO2 ABG pO2 [place] Test Respiration Rate O2 Delivery Device EPAP IPAP Blood Gas Notified Whom Blood Gas Notified Time Sodium Potassium Chloride Carbon Dioxide Anion Gap BUN Creatinine Estim Creat Clear Calc Est GFR (MDRD) Af Amer Est GFR (MDRD) Non-Af BUN/Creatinine Ratio Glucose Lactic Acid Calcium Magnesium Iron TIBC Iron Saturation Ferritin Total Bilirubin AST ALT Alkaline Phosphatase Troponin I 7.690 H* Total Protein Albumin Globulin Albumin/Globulin Ratio Fl Crystal Path Review MRSA (PCR) POC Glucose 02/06/18 02/05/18 02/05/18 06:55 21:40 19:39 POC Glucose 377 H 387 H 408 H 02/05/18 02/05/18 02/05/18 16:47 14:25 10:40 POC Glucose 257 H 239 H 284 H Clinical Impression(s) from Imaging Studies Foot X-Ray 02/04/18 15:10 IMPRESSION: Soft tissue swelling overlying the medial aspect of the proximal phalanx of the great toe and dorsal aspect of the foot. Electronically Signed: Mack Browne MD at 16:07 EDT Tel [phone], Service support , Chest X-Ray 02/05/18 20:30 IMPRESSION: Interval development of patchy interstitial densities consider asymmetric edema and/or atypical infiltrates. Electronically Signed: Faye Rojas MD at 21:34 EDT Tel , Service support , Chest CTA 02/06/18 21:22 IMPRESSION: No demonstrated pulmonary embolism or arterial dissection. Pulmonary edema and small bilateral pleural effusions. Cholelithiasis. Electronically Signed: Eugenio Novak MD at 2:53 EDT Tel , Service support , Assessment/Plan Active and Suspected Problems (Last Reviewed 11/22/17 @ 13:19 by Sherie Alves ) Pain in right toe(s) (Acute) Cellulitis of right foot (Acute) Abscess of toe of right foot (Acute) Type 2 diabetes mellitus (Acute) RECOMMENDATIONS: 1. Proceed with cardiac catheterization 2. As needed aerosol treatments 3. Continue antibiotics 4. Start home BiPAP therapy 13/9 cm of water with naps and nightly 5. Wean supplemental oxygen as tolerated 6. Continue attempts at diuresis IMPRESSIONS: 1. Acute hypoxemic and hypercarbic respiratory failure secondary to flash pulmonary edema The patient had appears to have responded appropriately to the use of bilevel therapy along with diuretics. Her oxygen requirement has been weaned accordingly. Supplemental oxygen can continue to be weaned to maintain a saturation at or above 90%. Continue medical management per cardiology recommendations. 2. Non-ST elevation myocardial infarction Plans for cardiac catheterization this morning. Further recommendations will be forthcoming depending on the outcome of the patient's coronary angiography. 3. Personal history of mild COPD/obstructive sleep apnea Continue as needed aerosol treatments. The patient only utilizes an albuterol rescue inhaler in her home environment. She does not have a baseline supplemental oxygen requirement. Patient does utilize bilevel therapy on a nocturnal basis with a pressure setting of 13/9 cm of water with the modification. Orders have been placed for BiPAP to be utilized with naps and nightly. 4. Right foot abscess/cellulitis Continue antibiotics and local wound care as ordered. 5. Obesity/diabetes/neuropathy/hypertension/hyperlipidemia Complicates care, management, recovery and prognosis. Continue Accu-Cheks and current insulin regimen. ADDENDUM: Cardiac catheterization revealed severe triple-vessel coronary artery disease, which will require surgical intervention. The patient is currently being considered for transfer to a tertiary care facility accordingly. This note was generated with [employer] dictation software. It may contain incorrect words, spelling, and punctuation that were not noted in checking the note before signing. Code Visit Inpatient E&M: 57556 Init Hosp L3
--- NOTE | 2018-02-06 08:33 | CL.D_ITS ---
Patient Name: MARIA LUISA BURGESS Study Date: 02/06/2018 Performing: Brennan Gonzalez MD Ht: 62 inches 157 cm : 1950 Wt: 167.8 lbs 76 kg Age: 67 Gender: female BSA: 1.77 PROCEDURE(S) PERFORMED [id number] CLINICAL PROFILE AND INDICATIONS Indications: ACS <= 24 hrs Heart Failure: Newly Diagnosed: Yes, NYHA Class: 3, Heart Failure Type: Diastolic CONCLUSIONS Severe triple-vessel disease with distal left main disease and preserved ejection fraction with moder ate mitral regurgitation and calcified aorta RECOMMENDATIONS Surgery consult for coronary revascularization DESCRIPTION OF PROCEDURE The patient arrived to the procedure lab. The risks and benefits of the procedure as well as a full d escription of our services here and current unavailability of surgical backup were fully explained to the patient and/or their significant other prior to the catheterization. The Timeout was completed, verifying the correct patient and procedure. The patient's procedural site was prepped and draped in the usual fashion. Local anesthetic was given subcutaneously to right groin region with Lidocaine 2%. Using a modified Seldinger technique, arterial access was obtained via the right femoral artery, a 5 Fr sheath was inserted. Left Coronary Artery selective angiography was performed in multiple views u sing a 5 Fr. JL4 catheter. Right Coronary Artery selective angiography was then performed in multiple views using a 5 Fr. 3DRC (Rudy) catheter. Left Ventriculography was performed in BRADY projection using a 5 Fr. Pigtail catheter. LV to AO pullback pressures were then recorded.The arterial sheath wa s sutured in place with heparinized normal saline under pressure CORONARY ANGIOGRAPHY DOMINANCE: Right Dominant LEFT HEART ASSESSMENT Left Ventricular Ejection Fraction: by LV Gram 55 % Normal LV wall motion Normal Left Ventricular systolic function Moderate mitral regurgitation LEFT MAIN: Moderate calcification, Distal 70% stenosis LEFT ANTERIOR DECENDING ARTERY: Proximal 60-70% stenosis mid 50% stenosis CIRCUMFLEX ARTERY: OSTIAL CIRC: Severe calcification, 70 % Stenosis MID CIRC: is occluded RIGHT CORONARY ARTERY: Moderate calcification MID RCA: 70 % Stenosis RT PLV: is occluded COLLATERAL FLOW: Collateral flow from Right to Left COMPLICATIONS No Complications PROCEDURE MEDICATIONS Versed 1 mg IV Oxygen: 4 L/min via nasal cannula SUMMARY OF HEMODYNAMIC DATA Time AIR REST ECG 07:43:20 AO 135/81 (106) SA 07:55:24 LV 140/4, 25 08:05:03 LV 138/3, 08:05:09 LV 137/6, 31 08:06:23 LVp 137/6, 31 08:06:32 AOp 130/69 (98) 08:06:37 Signed By Brennan Gonzalez MD On 02/06/2018 08:32:30 Brennan Gonzalez MD
--- NOTE | 2018-02-06 08:59 | DS.PCM_ITS ---
Discharge Date and Diagnosis - Problem List Patient Problems: Active and Suspected Problems (Last Reviewed 11/22/17 @ 13:19 by Sherie Alves ) Pain in right toe(s) (Acute) Cellulitis of right foot (Acute) Abscess of toe of right foot (Acute) Type 2 diabetes mellitus (Acute) Date of Admission: 02/04/18 Date of Discharge: 02/06/18 - Primary Discharge Diagnosis Active and Suspected Problems (Last Reviewed 11/22/17 @ 13:19 by Sherie Alves ) NSTEMI Flash pulmonary edema Acute respiratory failure secondary to flash pulmonary edema Triple-vessel coronary artery disease on cardiac catheterization Cellulitis of right foot (Acute) Abscess of toe of right great toe (Acute) Acute gouty arthritis R great toe, Left foot, Left elbow - Secondary Discharge Diagnosis Chronic Problems (Last Reviewed 11/22/17 @ 13:19 by Sherie Alves) Obesity (BMI 30.0-34.9) (Chronic) ELDER (obstructive sleep apnea) (Chronic) compliant with CPAP COPD (chronic obstructive pulmonary disease) (Chronic) Neuropathic pain (Chronic) Allergic rhinitis (Chronic) Asthma (Chronic) Osteoarthritis (Chronic) Hyperlipidemia (Chronic) Hypertension (Chronic) Type 2 diabetes mellitus (Chronic) Hospital Course and Treatment Imaging Results: 02/06/18 05:55 Echo Complete [ECHO] AM (NON MEDS) 02/06/18 21:22 CTA Chest W/WO Contrast [CT] Urgent Consultations 02/04/18 18:41 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 She was started on Vancomycin and Zosyn and consultation was obtained with podiatry. The wound on the R foot was debrided and the drainage was sent for culture and crystals. A PCR on the wound drainage was negative for staph aureus and negative for MRSA. Gram stain had no organisms and no white blood cells. There were a few nondescript crystals on pathology report, no evidence of monosodium urate crystals. She developed redness of the L forefoot with First MTP pain and L medial elbow pain on 02/05/18 and was treated for suspected acute gouty arthritis with 1 dose of Toradol 15 mg and prednisone 20 mg. She had good relief of pain and the erythema and warmth to touch regressed with treatment. Late in the evening on 02/05 she was walking back from the [place] and experienced sudden onset of SOB. She denied CP. CXR showed acute pulmonary edema. EKG showed no ST elevation and troponin was increased at 5.67. She was given 325 mg of aspirin and transferred to the intensive care unit. He was treated with intravenous Lasix but did require BIPAP rescue for a period of time. She had a cardiac catheterization on 02/06 and this showed Severe triple-vessel disease with distal left main disease and preserved ejection fraction of 55%. There was moderate mitral regurgitation. Atrial 4 he was in contact with cardiology at [facility] and she will be transferred for coronary artery bypass grafting. Troponin peaked at 8.34 and is now trending down. There has been no significant cardiac dysrhythmia or ectopy. This note was generated with [employer] dictation software. It may contain incorrect words, spelling, and punctuation that were not noted in checking the note before signing. Home Medications: Medications to take at Discharge Atorvastatin Calcium [Lipitor] 80 mg PO QHS 01/18/17 Cyanocobalamin [Vitamin B12] 1,000 mcg PO DAILY@0800 01/18/17 Estropipate [Ogen (G)] 0.75 mg PO DAILY 01/18/17 Lisinopril [Prinivil] 10 mg PO DAILY 01/18/17 Triamterene 37.5MG/Hctz 25MG [Dyazide (G)] 1 cap PO DAILY 01/18/17 Verapamil HCl [Verapamil ER] 240 mg PO DAILY 01/18/17 gabapentin 300 mg capsule 600 mg PO TID cap 08/23/17 metformin 1,000 mg tablet 1,000 mg PO BIDCM tab 08/23/17 multivitamin tablet 1 tab PO DAILY 08/23/17 Glimepiride [Amaryl] 4 mg PO BID 09/18/17 Hydrocodone/Acetaminophen [[place] 5-325 Tablet] 1 each PO BID 09/18/17 Loratadine 10 mg PO DAILY 09/18/17 Ascorbic Acid [Vitamin C] 1,000 mg PO QHS 02/04/18 Ibuprofen [Motrin] 800 mg PO TID PRN PRN 02/04/18 Lidocaine [Lidoderm Patch] 1 patch TRANSDERM. DAILY 02/04/18 Methenamine Hippurate 1 tab PO QHS 02/04/18 Novolin N 35 - 40 units SQ DINNER 02/04/18 Omeprazole [Omeprazole] 20 mg PO DAILY 02/04/18 Victoza 1.2 units SQ BREAKFAST 02/04/18 Primary Care Physician: Baron Pike Chi, MD [Primary Care Provider] - Disposition: [facility] Minutes spent on discharge:: 45 Patient Condition:: Guarded Medical Necessity - Tobacco Use Smoking Status: Former smoker Tobacco Use: Cigarettes Meaningful Use Info Meaningful Use Diagnoses (Choose all that apply): AMI, CHF - AMI Aspirin given w/in 24hrs of arrival?: Yes ASA at discharge?: Yes Statins at discharge?: Yes Darren/ARB at discharge?: Yes Beta Dao at discharge?: Yes Done w/ Acute PA measure.: Yes - CHF DARREN/ARB ordered at discharge?: Yes Documented LVEF (%): 55 Code Visit Inpatient E&M: 24872 Disch Hosp
[2018-02-06] MEDS: Gabapentin 300 MG Capsule 600 MG PO (09:37)
[2018-02-06] MEDS: Multivitamins,Therapeutic Tablet 1 TABLET PO (09:38)
[2018-02-06] MEDS: Clopidogrel Bisulfate 75 MG Tablet PO (09:38)
[2018-02-06] MEDS: Pantoprazole Sodium 40 MG Tablet PO (09:38)
[2018-02-06] MEDS: Loratadine 10 MG Tablet PO (09:39)
[2018-02-06] MEDS: Montelukast 10 MG Tablet PO (09:39)
[2018-02-06] MEDS: Cyanocobalamin 500 MCG Tablet 1000 MCG PO (09:40)
[2018-02-06] MEDS: Menthol/Lanolin/Calamine/Znox 113 GM Tube 1 APPLIC TOPICAL (09:41)
[2018-02-06] MEDS: Magnesium Oxide 400 MG Tablet PO (09:42)
[2018-02-06] MEDS: predniSONE 20 MG Tablet PO (09:42)
[2018-02-06] MEDS: Enoxaparin 80 MG/0.8 ML Syringe 70 MG SC (09:42)
[2018-02-06] MEDS: Metoprolol Tartrate 25 MG Tablet PO (09:43)
[2018-02-06 10:33] LABS: Vancomycin, Trough Level 8.3 ug/mL (5.0-15.0)
--- NOTE | 2018-02-06 11:25 | PCM.RX.CS ---
Consult Pharmacy has been consulted to manage selected antiobiotic: Vancomycin Type of Consult: Follow-up Suspected Infection: Skin/Soft tissue Prior Doses of Antibiotics Received/Current Regimen: Medications Vancomycin HCl () 500 mg in 100 mls @ 100 mls/hr IV Q12H CAILIN Last Admin: 02/06/18 09:37 Dose: 100 mls/hr Labs: Sodium 134 mmol/L (136-145) L 02/05/18 20:34 Potassium 4.4 mmol/L (3.5-5.1) 02/05/18 20:34 Chloride 99 mmol/L (98-107) 02/05/18 20:34 Carbon Dioxide 27.0 mmol/L (21.0-32.0) 02/05/18 20:34 Anion Gap 8 (5-15) 02/05/18 20:34 BUN 12 mg/dL (7-18) 02/05/18 20:34 Creatinine 0.88 mg/dL (0.55-1.02) 02/05/18 20:34 Est GFR (MDRD) Af Amer 82 mL/min (>60) 02/05/18 20:34 Est GFR (MDRD) Non-Af 68 mL/min (>60) 02/05/18 20:34 BUN/Creatinine Ratio 13.7 RATIO (10-20) 02/05/18 20:34 Glucose 363 mg/dL (74-106) H 02/05/18 20:34 Vancomycin Trough 8.3 ug/mL (5.0-15.0) 02/06/18 09:30 Microbiology: Microbiology 02/04/18 18:08 Wound - Right Foot Gram Stain - Final 02/04/18 18:08 Wound - Right Foot Wound Culture - Preliminary No growth-Final to follow 02/04/18 18:08 Fluid - Bursa Gram Stain - Final 02/04/18 18:08 Fluid - Bursa Body Fluid Culture - Preliminary No growth-Final to follow Weight used for dosin kg Estimated Creatinine Clearance: 48 mL/min Goal Trough: 10-15 mcg/mL Pharmacy Plan for Drug Dosing: Vancomycin trough below goal. Recommend to increase to vancomycin 750mg IV q12h. No re-check ordered for now, patient to be transferred to another facility. Pharmacy Service will continue to monitor and adjust dosing as required.
[2018-02-06] MEDS: Insulin Lispro 100 UNIT/ML INSULN.PEN SC (11:27)
[2018-02-06 11:36] LABS: Bedside Glucose 416 mg/dL (70-110)
--- NOTE | 2018-02-06 15:58 | NURSING ---
report called to Casie WOLFF at [facility] at [phone]
--- NOTE | 2018-02-06 21:22 | CT_ITS ---
STUDY: CTA CHEST REASON FOR EXAM: Female, 67 years old. Dyspnea. Elevated d-dimer RADIATION DOSAGE (If Supplied By Facility): CTDIvol = ( 13.29 ) mGy, DLP = ( 654.43 ) mGycm TECHNIQUE: The examination was performed with the intravenous administration of 75ML ml of Isovue 370 contrast material. Post-processing of the angiographic images was performed, with multiplanar reformation and 3D reconstruction. Individualized dose optimization techniques were used for this CT. COMPARISON: None. FINDINGS: Normal enhancement of the main pulmonary artery and right and left pulmonary arteries. Normal enhancement of the bilateral peripheral pulmonary arteries. There is no demonstrated pulmonary embolism. Normal thoracic aorta and visualized great vessels. There is no demonstrated aortic dissection. Normal heart and pericardium. Normal mediastinum. Normal hilar regions. Normal visualized trachea and bronchi. There is partial atelectasis in the right and left lung lower lobes. There is interstitial thickening in both lungs more prominent in lung bases suggesting pulmonary edema. Small bilateral pleural effusions are noted Normal chest wall structures. There are degenerative changes of thoracic spine. There is a small stone in the gallbladder CT/CTA Chest W/WO Contrast IMPRESSION: No demonstrated pulmonary embolism or arterial dissection. Pulmonary edema and small bilateral pleural effusions. Cholelithiasis. Electronically Signed: Eugenio Novak MD at 2:53 EDT Tel , Service support ,
== END 2018-02-06 16:15 | disposition short-term general hospital (02) | DRG 987 ==
LOC: ED 15:16 → MS2 17:03 → ICU 02-05 20:06
PROVIDERS: Family Medicine; Internal Medicine; Podiatrist; Admitting Provider Internal Medicine; Emergency Provider Emergency Medicine; Family Provider Family Medicine Geriatric Medicine; PCP Family Medicine Geriatric Medicine; Visit Provider Internal Medicine
DX: L02.611 Cutaneous abscess of right foot (principal); I21.4 Non-ST elevation (NSTEMI) myocardial infarction; J81.0 Acute pulmonary edema; J96.01 Acute respiratory failure with hypoxia; I50.30 Unspecified diastolic (congestive) heart failure; L03.031 Cellulitis of right toe; E11.40 Type 2 diabetes mellitus with diabetic neuropathy, unspecified; G47.33 Obstructive sleep apnea (adult) (pediatric); J44.9 Chronic obstructive pulmonary disease, unspecified; E78.5 Hyperlipidemia, unspecified; M19.90 Unspecified osteoarthritis, unspecified site; E66.9 Obesity, unspecified; Z87.891 Personal history of nicotine dependence; Z68.30 Body mass index [BMI] 30.0-30.9, adult; Z71.3 Dietary counseling and surveillance; Z79.899 Other long term (current) drug therapy; Z79.84 Long term (current) use of oral hypoglycemic drugs; K21.9 Gastro-esophageal reflux disease without esophagitis; M10.072 Idiopathic gout, left ankle and foot; I25.10 Atherosclerotic heart disease of native coronary artery without angina pectoris; I11.0 Hypertensive heart disease with heart failure; I34.0 Nonrheumatic mitral (valve) insufficiency
CPT/HCPCS: 36415; 36600; 71045; 71275; 73630; 80048; 80053; 80202; 82728; 82803; 82962; 83036; 83540; 83550; 83605; 83735; 84484; 84550; 85025; 85379; 85652; 86140; 87040; 87070; 87075; 87205; 87640; 87641; 89060; 93005; 93306; 93458; 93970; 94002; 94003; 94640; 99152; 99153; 99283; 99406; J7030; J7040; J7050; Q9967; A4216; C1769; J1940

== ENCOUNTER 2018-02-25 16:45 | Inpatient (IN) | payer MEDICARE, OTHER, SELFPAY ==
--- NOTE | 2018-02-25 16:45 | DT_ITS ---
This patient was seen during an EMR downtime February 18, 2018 - February 25, 2018. This patient may have a combination of paper and electronic documentation or all paper documentation. All documentation is viewable within the e-chart portion of [employer] for each patient visit.
[2018-02-25 17:35] LABS: Bedside Glucose 194 mg/dL (70-110)
[2018-02-25 18:20] VITALS: BP 154/51; PULSE 81; PULSE 89; RESP 18; TEMP 36.8; O2SAT 96; BMI 31.5
--- NOTE | 2018-02-25 18:48 | PCM.HP.STD ---
Problem List (1) Osteomyelitis of left foot Status: Acute (2) Coronary artery disease Status: Acute (3) Diabetes mellitus Status: Chronic (4) Obesity Status: Chronic (5) Neuropathic pain Status: Chronic (6) ELDER (obstructive sleep apnea) Status: Chronic (7) COPD (chronic obstructive pulmonary disease) Status: Chronic Qualifiers: (8) Allergic rhinitis Status: Chronic Qualifiers: (9) Asthma Status: Chronic Qualifiers: (10) Osteoarthritis Status: Chronic Qualifiers: (11) Hyperlipidemia Status: Chronic Qualifiers: (12) Hypertension Status: Chronic Qualifiers: History of Present Illness Date of Admission: 02/25/18 Chief Complaint: Here for rehabilitation, strengthening, wound care, intravenous antibiotics, prior to discharge home. The patient is a 67 year old Female with below past medical history with followin02/06/2018 Heart cath at [facility] showed severe triple vessel disease, peak troponin 8.34. Transferred to [facility] for consideration of bypass surgery. ERNESTO showed mild to moderate mitral regurgitation. Left great toe repeat incision and drainage, bone cultures sent. 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 02/15/2018 Dr. Ludwig performed CABG x 3. Post-operative course complicated by anemia requiring 5 units PRBC transfusion. Left upper extremity doppler ultrasound showed left upper extremity DVT treated with coumadin. ?Rectovaginal fistula on CT scan of abdomen/pelvis, recommended colonoscopy as outpatient. 02/25/2018 Admit to TCU for rehabilitation, strengthening, wound care, intravenous antibiotics, prior to discharge home alone. Past Medical History Past Medical History (Chronic Problems): Chronic Problems (Last Reviewed 11/22/17 @ 13:19 by Sherie Alves) Diabetes mellitus (Chronic) Obesity (Chronic) Neuropathic pain (Chronic) Obesity (BMI 30.0-34.9) (Chronic) HERNANDEZ (dyspnea on exertion) (Chronic) ELDER (obstructive sleep apnea) (Chronic) COPD (chronic obstructive pulmonary disease) (Chronic) Neuropathic pain (Chronic) Allergic rhinitis (Chronic) Asthma (Chronic) Mild asthma (Chronic) Osteoarthritis (Chronic) Hyperlipidemia (Chronic) Hypertension (Chronic) Type 2 diabetes mellitus (Chronic) Medical History: Medical History (Last Reviewed 11/22/17 @ 13:19 by Sherie Alves) Suspected sleep apnea (Acute) G47.30 Fall (Acute) W19.XXXA COPD (chronic obstructive pulmonary disease) (Chronic) J44.9 Neuropathic pain (Chronic) Allergic rhinitis (Chronic) J30.9 Asthma (Chronic) J45.909 Community acquired pneumonia (Acute) J18.9 Rhabdomyolysis (Acute) M62.82 Acute kidney injury (Acute) N17.9 Mild asthma (Chronic) J45.998 Osteoarthritis (Chronic) M19.90 Hyperlipidemia (Chronic) E78.5 Hypertension (Chronic) I10 Type 2 diabetes mellitus (Chronic) E11.9 Abnormal echocardiogram R93.1 Cardiomegaly I51.7 GERD (gastroesophageal reflux disease) K21.9 Hypertriglyceridemia E78.1 Hypoxia R09.02 ELDER (obstructive sleep apnea) G47.33 Tobacco use Z72.0 Vitamin D deficiency E55.9 Allergies No Known Allergies Allergy (Verified 02/04/18 14:51) Home Medications: Ambulatory Orders Medication Instructions Recorded Atorvastatin Calcium [Lipitor] 80 mg PO QHS 01/18/17 Cyanocobalamin [Vitamin B12] 1,000 mcg PO DAILY@0800 01/18/17 Estropipate [Ogen (G)] 0.75 mg PO DAILY 01/18/17 Lisinopril [Prinivil] 10 mg PO DAILY 01/18/17 Triamterene 37.5MG/Hctz 25MG 1 cap PO DAILY 01/18/17 [Dyazide (G)] Verapamil HCl [Verapamil ER] 240 mg PO DAILY 01/18/17 gabapentin 300 mg capsule 600 mg PO TID cap 08/23/17 metformin 1,000 mg tablet 1,000 mg PO BIDCM tab 08/23/17 multivitamin tablet 1 tab PO DAILY 08/23/17 Glimepiride [Amaryl] 4 mg PO BID 09/18/17 Hydrocodone/Acetaminophen [Pinon 1 each PO BID 09/18/17 5-325 Tablet] Loratadine 10 mg PO DAILY 09/18/17 Ascorbic Acid [Vitamin C] 1,000 mg PO QHS 02/04/18 Ibuprofen [Motrin] 800 mg PO TID PRN PRN 02/04/18 Lidocaine [Lidoderm Patch] 1 patch TRANSDERM. DAILY 02/04/18 Methenamine Hippurate 1 tab PO QHS 02/04/18 Novolin N 35 - 40 units SQ DINNER 02/04/18 Omeprazole [Omeprazole] 20 mg PO DAILY 02/04/18 Victoza 1.2 units SQ BREAKFAST 02/04/18 Surgical History: Surgical History (Last Reviewed 11/22/17 @ 13:19 by Sherie Alves) H/O adenoidectomy Z90.89 History of appendectomy Z90.49 History of carpal tunnel release Z98.890 History of hysterectomy Z90.710 History of tonsillectomy Z90.89 Surgical History: appendectomy, coronary bypass surgery - X 5., hysterectomy, tonsillectomy, - - Bilateral tubal ligation. 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 Sibling Family History: Family History (Last Reviewed 11/22/17 @ 13:19 by Sherie Alves) Mother Colon cancer History Items: Diabetes, Heart Disease, - - ELDER Review of Systems Constitutional: Denies: Chills, Fever, Weight Change HEENT: Denies: Head Aches, Sinus Congestion, Sinus Drainage Cardiovascular: Denies: Chest Pain, Palpitations Respiratory: Denies: Cough, Shortness of breath at rest, Sputum production Gastrointestinal: Denies: Abdominal Pain, Nausea, Vomiting Genitourinary: Denies: Dysuria Musculoskeletal: Denies: Joint Pain, Joint Tenderness Skin: Denies: Rash, Wounds Neurological: Denies: Numbness, Tingling, Focal weakness Psychiatric: Denies: Anxiety, Depression, Homicidal Ideations, Suicidal Ideations Hematologic/ Lymphatic: Denies: Easy Bruising, Easy Bleeding VTE Information - Inpt Only VTE Present on Admission: Yes VTE Mechan Device Prophylaxis: Knee High JAMIN Hose VTE Pharm Prophylaxis ordered?: No Reason prophylaxis not ordered:: Treatment Not Indicated Patient Problems: Active and Suspected Problems (Last Reviewed 11/22/17 @ 13:19 by Sherie Alves) Osteomyelitis of left foot (Acute) Coronary artery disease (Acute) - Physical Exam General: Alert, Oriented x3, Cooperative HEENT: Atraumatic, PERRLA, EOMI, Normocephalic Neck: Supple, No JVD, Negative Carotid Bruits Lungs: Clear to auscultation, Normal air movement Cardiovascular: Regular rate, No murmurs Abdomen: Bowel Sounds Present, Soft, Non Tender Extremities: No edema, Capillary Refill Less than 3 Seconds Skin: Ulcer/ Wound - Per Wound Team., Skin Tear - per Wound Team., Incision - Per Wound Team. Musculoskeletal: No Tenderness to Palpation of Joints or Extremities Neurological: Cranial nerves II-XII grossly intact Psych/Mental Status: Normal Affect, Appropriate Vital Signs Temp Pulse Resp BP Pulse Ox 98.3 F 81 18 154/51 H 96 02/25/18 18:20 02/25/18 18:20 02/25/18 18:20 02/25/18 18:20 02/25/18 18:20 Oxygen Flow Rate (L/min) 2 Oxygen Delivery Method Nasal Cannula Weight: 80.739 kg Body Mass Index (BMI) 31.5 POC Glucose 02/25/18 17:32 POC Glucose 194 H Assessment/Plan All Active Problems (Last Reviewed 11/22/17 @ 13:19 by Sherie Alves) Osteomyelitis of left foot (Acute) Coronary artery disease (Acute) Pain in right toe(s) (Acute) Cellulitis of right foot (Acute) Abscess of toe of right foot (Acute) Type 2 diabetes mellitus (Acute) Infectious arthritis (Acute) Hypoxia (Acute) Suspected sleep apnea (Acute) Fall (Acute) Community acquired pneumonia (Acute) Rhabdomyolysis (Acute) Acute kidney injury (Acute) 67 year old female with below past medical history hospitalized for CABG x 3, complicated by post-operative anemia, left foot osteomyelitis, admitted to TCU with debility, here for rehabilitation, strengthening, prior to discharge home alone. Debility - PT/OT. Pain - Tylenol 1000MG Q8H PRN mild pain, Oxycodone 5MG Q6H PRN severe pain, Lidoderm 1 patch daily to right lower back. Bowel - Miralax 17GM daily, Senna/colace 2 tablets BID, Dulcolax 10MG DC daily PRN. Pneumonia vaccination - Administer Prevnar 13 and/or Pneumovax 23 as necessary. DVT prophylaxis - Not necessary, already on warfarin. Vitamin C deficiency - Vitamin C 500MG BID. Coronary Artery Disease s/p CABG x 5 - Coreg 6.25MG BID, Lisinopril 5MG daily, Aspirin 81MG daily, Plavix 75MG daily. Left foot osteomyelitis - Cefazolin 2GM IV Q8H, Voriconazole 200MG Q12H, ID following. Vitamin B12 deficiency - B12 1000MCG daily. Iron deficiency anemia - Ferrex 150MG twice daily. COPD - Advair 250/50MG 1 puff BID, Duoneb 3ML TID. Folate deficiency - Folic Acid 1MG daily. Edema - Lasix 40MG daily. Neuropathic pain - Gabapentin 600MG TID. Diabetes Mellitus II - Glimepiride 8MG daily, Levemir 20 units QHS, Humalog 22, 18, 18. Allergic Rhinitis - Loratadine 10MG daily. Insomnia - Melatonin 3MG QHS. Recurrent UTI - Methenamine 1GM QHS. Tinea corporis - Nystatin powder BID groin. GERD - Pantoprazole 40MG daily. LUE DVT - Warfarin 2.5MG daily, follow INR.
--- NOTE | 2018-02-25 18:59 | HP.PCM_ITS ---
Problem List (1) Osteomyelitis of left foot Status: Acute (2) Coronary artery disease Status: Acute (3) Diabetes mellitus Status: Chronic (4) Obesity Status: Chronic (5) Neuropathic pain Status: Chronic (6) ELDER (obstructive sleep apnea) Status: Chronic (7) COPD (chronic obstructive pulmonary disease) Status: Chronic Qualifiers: (8) Allergic rhinitis Status: Chronic Qualifiers: (9) Asthma Status: Chronic Qualifiers: (10) Osteoarthritis Status: Chronic Qualifiers: (11) Hyperlipidemia Status: Chronic Qualifiers: (12) Hypertension Status: Chronic Qualifiers: History of Present Illness Date of Admission: 02/25/18 Chief Complaint: Here for rehabilitation, strengthening, wound care, intravenous antibiotics, prior to discharge home. The patient is a 67 year old Female with below past medical history with followin02/06/2018 Heart cath at [facility] showed severe triple vessel disease, peak troponin 8.34. Transferred to [facility] for consideration of bypass surgery. ERNESTO showed mild to moderate mitral regurgitation. Left great toe repeat incision and drainage, bone cultures sent. 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 02/15/2018 Dr. Ludwig performed CABG x 3. Post-operative course complicated by anemia requiring 5 units PRBC transfusion. Left upper extremity doppler ultrasound showed left upper extremity DVT treated with coumadin. ?Rectovaginal fistula on CT scan of abdomen/pelvis, recommended colonoscopy as outpatient. 02/25/2018 Admit to TCU for rehabilitation, strengthening, wound care, intravenous antibiotics, prior to discharge home alone. Past Medical History Past Medical History (Chronic Problems): Chronic Problems (Last Reviewed 11/22/17 @ 13:19 by Sherie Alves) Diabetes mellitus (Chronic) Obesity (Chronic) Neuropathic pain (Chronic) Obesity (BMI 30.0-34.9) (Chronic) HERNANDEZ (dyspnea on exertion) (Chronic) ELDER (obstructive sleep apnea) (Chronic) COPD (chronic obstructive pulmonary disease) (Chronic) Neuropathic pain (Chronic) Allergic rhinitis (Chronic) Asthma (Chronic) Mild asthma (Chronic) Osteoarthritis (Chronic) Hyperlipidemia (Chronic) Hypertension (Chronic) Type 2 diabetes mellitus (Chronic) Medical History: Medical History (Last Reviewed 11/22/17 @ 13:19 by Sherie Alves) Suspected sleep apnea (Acute) G47.30 Fall (Acute) W19.XXXA COPD (chronic obstructive pulmonary disease) (Chronic) J44.9 Neuropathic pain (Chronic) Allergic rhinitis (Chronic) J30.9 Asthma (Chronic) J45.909 Community acquired pneumonia (Acute) J18.9 Rhabdomyolysis (Acute) M62.82 Acute kidney injury (Acute) N17.9 Mild asthma (Chronic) J45.998 Osteoarthritis (Chronic) M19.90 Hyperlipidemia (Chronic) E78.5 Hypertension (Chronic) I10 Type 2 diabetes mellitus (Chronic) E11.9 Abnormal echocardiogram R93.1 Cardiomegaly I51.7 GERD (gastroesophageal reflux disease) K21.9 Hypertriglyceridemia E78.1 Hypoxia R09.02 ELDER (obstructive sleep apnea) G47.33 Tobacco use Z72.0 Vitamin D deficiency E55.9 Allergies No Known Allergies Allergy (Verified 02/04/18 14:51) Home Medications: Ambulatory Orders Medication Instructions Recorded Atorvastatin Calcium [Lipitor] 80 mg PO QHS 01/18/17 Cyanocobalamin [Vitamin B12] 1,000 mcg PO DAILY@0800 01/18/17 Estropipate [Ogen (G)] 0.75 mg PO DAILY 01/18/17 Lisinopril [Prinivil] 10 mg PO DAILY 01/18/17 Triamterene 37.5MG/Hctz 25MG 1 cap PO DAILY 01/18/17 [Dyazide (G)] Verapamil HCl [Verapamil ER] 240 mg PO DAILY 01/18/17 gabapentin 300 mg capsule 600 mg PO TID cap 08/23/17 metformin 1,000 mg tablet 1,000 mg PO BIDCM tab 08/23/17 multivitamin tablet 1 tab PO DAILY 08/23/17 Glimepiride [Amaryl] 4 mg PO BID 09/18/17 Hydrocodone/Acetaminophen [[place] 1 each PO BID 09/18/17 5-325 Tablet] Loratadine 10 mg PO DAILY 09/18/17 Ascorbic Acid [Vitamin C] 1,000 mg PO QHS 02/04/18 Ibuprofen [Motrin] 800 mg PO TID PRN PRN 02/04/18 Lidocaine [Lidoderm Patch] 1 patch TRANSDERM. DAILY 02/04/18 Methenamine Hippurate 1 tab PO QHS 02/04/18 Novolin N 35 - 40 units SQ DINNER 02/04/18 Omeprazole [Omeprazole] 20 mg PO DAILY 02/04/18 Victoza 1.2 units SQ BREAKFAST 02/04/18 Surgical History: Surgical History (Last Reviewed 11/22/17 @ 13:19 by Sherie Alves) H/O adenoidectomy Z90.89 History of appendectomy Z90.49 History of carpal tunnel release Z98.890 History of hysterectomy Z90.710 History of tonsillectomy Z90.89 Surgical History: appendectomy, coronary bypass surgery - X 5., hysterectomy, tonsillectomy, - - Bilateral tubal ligation. 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 Sibling Family History: Family History (Last Reviewed 11/22/17 @ 13:19 by Sherie Alves) Mother Colon cancer History Items: Diabetes, Heart Disease, - - ELDER Review of Systems Constitutional: Denies: Chills, Fever, Weight Change HEENT: Denies: Head Aches, Sinus Congestion, Sinus Drainage Cardiovascular: Denies: Chest Pain, Palpitations Respiratory: Denies: Cough, Shortness of breath at rest, Sputum production Gastrointestinal: Denies: Abdominal Pain, Nausea, Vomiting Genitourinary: Denies: Dysuria Musculoskeletal: Denies: Joint Pain, Joint Tenderness Skin: Denies: Rash, Wounds Neurological: Denies: Numbness, Tingling, Focal weakness Psychiatric: Denies: Anxiety, Depression, Homicidal Ideations, Suicidal Ideations Hematologic/ Lymphatic: Denies: Easy Bruising, Easy Bleeding VTE Information - Inpt Only VTE Present on Admission: Yes VTE Mechan Device Prophylaxis: Knee High JAMIN Hose VTE Pharm Prophylaxis ordered?: No Reason prophylaxis not ordered:: Treatment Not Indicated Patient Problems: Active and Suspected Problems (Last Reviewed 11/22/17 @ 13:19 by Sherie Alves ) Osteomyelitis of left foot (Acute) Coronary artery disease (Acute) - Physical Exam General: Alert, Oriented x3, Cooperative HEENT: Atraumatic, PERRLA, EOMI, Normocephalic Neck: Supple, No JVD, Negative Carotid Bruits Lungs: Clear to auscultation, Normal air movement Cardiovascular: Regular rate, No murmurs Abdomen: Bowel Sounds Present, Soft, Non Tender Extremities: No edema, Capillary Refill Less than 3 Seconds Skin: Ulcer/ Wound - Per Wound Team., Skin Tear - per Wound Team., Incision - Per Wound Team. Musculoskeletal: No Tenderness to Palpation of Joints or Extremities Neurological: Cranial nerves II-XII grossly intact Psych/Mental Status: Normal Affect, Appropriate Vital Signs Temp Pulse Resp BP Pulse Ox 98.3 F 81 18 154/51 H 96 02/25/18 18:20 02/25/18 18:20 02/25/18 18:20 02/25/18 18:20 02/25/18 18:20 Oxygen Flow Rate (L/min) 2 Oxygen Delivery Method Nasal Cannula Weight: 80.739 kg Body Mass Index (BMI) 31.5 POC Glucose 02/25/18 17:32 POC Glucose 194 H Assessment/Plan All Active Problems (Last Reviewed 11/22/17 @ 13:19 by Sherie Alves) Osteomyelitis of left foot (Acute) Coronary artery disease (Acute) Pain in right toe(s) (Acute) Cellulitis of right foot (Acute) Abscess of toe of right foot (Acute) Type 2 diabetes mellitus (Acute) Infectious arthritis (Acute) Hypoxia (Acute) Suspected sleep apnea (Acute) Fall (Acute) Community acquired pneumonia (Acute) Rhabdomyolysis (Acute) Acute kidney injury (Acute) 67 year old female with below past medical history hospitalized for CABG x 3, complicated by post-operative anemia, left foot osteomyelitis, admitted to TCU with debility, here for rehabilitation, strengthening, prior to discharge home alone. * Debility - PT/OT. * Pain - Tylenol 1000MG Q8H PRN mild pain, Oxycodone 5MG Q6H PRN severe pain, Lidoderm 1 patch daily to right lower back. * Bowel - Miralax 17GM daily, Senna/colace 2 tablets BID, Dulcolax 10MG MT daily PRN. * Pneumonia vaccination - Administer Prevnar 13 and/or Pneumovax 23 as necessary. * DVT prophylaxis - Not necessary, already on warfarin. * Vitamin C deficiency - Vitamin C 500MG BID. * Coronary Artery Disease s/p CABG x 5 - Coreg 6.25MG BID, Lisinopril 5MG daily , Aspirin 81MG daily, Plavix 75MG daily. * Left foot osteomyelitis - Cefazolin 2GM IV Q8H, Voriconazole 200MG Q12H, ID following. * Vitamin B12 deficiency - B12 1000MCG daily. * Iron deficiency anemia - Ferrex 150MG twice daily. * COPD - Advair 250/50MG 1 puff BID, Duoneb 3ML TID. * Folate deficiency - Folic Acid 1MG daily. * Edema - Lasix 40MG daily. * Neuropathic pain - Gabapentin 600MG TID. * Diabetes Mellitus II - Glimepiride 8MG daily, Levemir 20 units QHS, Humalog 22 , 18, 18. * Allergic Rhinitis - Loratadine 10MG daily. * Insomnia - Melatonin 3MG QHS. * Recurrent UTI - Methenamine 1GM QHS. * Tinea corporis - Nystatin powder BID groin. * GERD - Pantoprazole 40MG daily. * LUE DVT - Warfarin 2.5MG daily, follow INR.
[2018-02-25 21:05] LABS: Bedside Glucose 303 mg/dL (70-110)
[2018-02-25] MEDS: MELATONIN 3 MG TABLET PO (21:16)
[2018-02-25] MEDS: oxyCODONE 5 MG Tablet PO (21:16)
[2018-02-25] MEDS: Cefazolin 2 GM in 0.9% Normal Saline 100 ML IV (21:35)
[2018-02-25] MEDS: Gabapentin 300 MG Capsule 600 MG PO (21:43)
[2018-02-25] MEDS: Carvedilol 6.25 MG Tablet PO (21:43)
[2018-02-25] MEDS: Ascorbic Acid 500 MG Tablet PO (21:43)
[2018-02-25 21:48] VITALS: BMI 31.5
[2018-02-25] MEDS: Voriconazole 200 MG Tablet PO (22:51)
[2018-02-26] MEDS: Cefazolin 2 GM in 0.9% Normal Saline 100 ML IV ×3 (04:55→22:22)
[2018-02-26] MEDS: 0.9% NaCl PICC Flush IV ×3 (04:56→22:22)
[2018-02-26 05:22] LABS: Absolute Lymphocyte Count 0.72 X10^3/ul (0.83-4.51); Absolute Neutrophil Count 5.2 X10^3/uL (2.0-7.7); Basophil# 0.01 X10^3/uL; Basophil% 0.1 % (0-1); Eosinophil# 0.05 X10^3/uL; Eosinophils% 0.7 % (0-5); Hematocrit 22.7 % (37-47); Hemoglobin 6.7 g/dl (12.0-15.0); Lymphocyte # 0.72 X10^3/ul (4.0); Lymphocyte % 10.3 % (19-41); Mean Corp Hgb Conc 29.5 g/gl (32-36); Mean Corpuscular Hgb 26.7 pg (27.0-32.0); Mean Corpuscular Volume 90.4 fL (81-99); Mean Platelet Vol. 7.7 fl (6.2-12.0); Monocyte# 1.02 X10^3/uL; Monocyte% 14.6 % (0-10); Neutrophil # 5.18 X10^3/uL (2.7-7.7); Neutrophil % 73.9 % (47-70); Platelet Count 460 K/mm3 (150-450); RBC Distribution Width SD 53.5 fl (35.1-43.9); Red Blood Count 2.51 M/mm3 (4.2-5.4)
[2018-02-26 05:29] LABS: International Normalized Ratio 1.3; Prothrombin Time (Protime)PT. 16.6 SECONDS (11.7-14.9)
[2018-02-26 05:35] LABS: POSITIVE COUNT NO; POSITIVE DIFFERENTIAL NO; POSITIVE MORPHOLOGY NO
[2018-02-26 05:46] LABS: Anion Gap 8 (5-15); BUN 14 mg/dL (7-18); BUN/Creat Ratio 26.5 RATIO (10-20); Chloride 101 mmol/L (98-107); Creatinine, Serum 0.53 mg/dL (0.55-1.02); EST Glomerular Filtration Rate 122 mL/min (>60); Est Glom Filt Rate - Afr Amer 148 mL/min (>60); Glucose 172 mg/dL (74-106); Potassium 3.7 mmol/L (3.5-5.1); Sodium Level 141 mmol/L (136-145)
[2018-02-26] MEDS: Carvedilol 6.25 MG Tablet PO ×2 (05:54→18:41)
[2018-02-26] MEDS: Loratadine 10 MG Tablet PO (05:54)
[2018-02-26] MEDS: Ascorbic Acid 500 MG Tablet PO ×2 (05:54→22:21)
[2018-02-26] MEDS: Glimepiride 4 MG Tablet 8 MG PO (05:55)
[2018-02-26] MEDS: Pantoprazole Sodium 40 MG Tablet PO (05:55)
[2018-02-26] MEDS: Clopidogrel Bisulfate 75 MG Tablet PO (05:55)
[2018-02-26] MEDS: Lisinopril 5 MG Tablet PO (05:55)
[2018-02-26] MEDS: Furosemide 40 MG Tablet PO (05:59)
[2018-02-26] MEDS: Lidocaine 5% Patch 1 PATCH TOPICAL (06:01)
[2018-02-26] MEDS: oxyCODONE 5 MG Tablet PO ×3 (06:05→23:14)
[2018-02-26] MEDS: Nystatin Powder 15gm Bottle 1 APPLIC TOPICAL ×2 (06:05→22:32)
[2018-02-26 06:55] LABS: Bedside Glucose 171 mg/dL (70-110)
[2018-02-26] MEDS: Ipratropium/Albuterol Sulfate 3 ML AMPUL.NEB INHALATION (07:35)
[2018-02-26 07:57] VITALS: PULSE 78; RESP 21; O2SAT 95
[2018-02-26] MEDS: Aspirin E.C. 81 MG Tablet PO (08:07)
[2018-02-26] MEDS: Gabapentin 300 MG Capsule 600 MG PO ×3 (08:08→18:41)
[2018-02-26] MEDS: Cyanocobalamin 500 MCG Tablet 1000 MCG PO (08:08)
[2018-02-26] MEDS: Voriconazole 200 MG Tablet PO ×2 (08:08→22:22)
[2018-02-26] MEDS: Folic Acid 1 MG Tablet PO (08:08)
[2018-02-26] MEDS: Iron Polysaccharide Complex 150 MG CAPSULE PO ×2 (08:09→22:20)
[2018-02-26] MEDS: Insulin Lispro 100 UNIT/ML INSULN.PEN 18 UNIT SC ×2 (08:16→14:13)
--- NOTE | 2018-02-26 08:26 | RAD_ITS ---
STUDY: X-RAY CHEST REASON FOR EXAM: Female, 67 years old. CONGESTION AND CRACKLING SOUNDS. HX OF RECENT BYPASS SURGERY ABOUT 1 1/2 WEEKS AGO. HX OF RECENT HEART ATTACK. TECHNIQUE: Single AP portable view of the chest. COMPARISON: February 05, 2018 FINDINGS: There is a new right PICC line in place. There are new bilateral pleural effusions, small. There is improved aeration of the lungs with residual mildly prominent interstitial markings in the right upper lobe. There is bibasilar atelectasis. Normal size heart. Normal mediastinum and cristofer. Normal visualized pulmonary arteries. There is atherosclerotic calcification of the aortic arch with tortuosity. Normal visualized thoracic spine. Normal visualized ribs, clavicles, and shoulders. There is no demonstrated abnormality of the visualized soft tissue structures of the upper abdomen. RAD/Chest 1 View (Portable) IMPRESSION: There are new bilateral pleural effusions, small. There is improved aeration of the lungs with residual mildly prominent interstitial markings in the right upper lobe. There is bibasilar atelectasis. Electronically Signed: Karishma Hidalgo MD at 9:07 EDT , Service support ,
--- NOTE | 2018-02-26 08:49 | NURSING ---
Addendum entered by Lucrecia Scott 02/26/18 11:14: Dr. Pike made aware of CXR results, NNO. 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 Abdirahman Rhodes CNP from cardiology dept at [facility] called and updated on LLE incision, stated to have wound care nurse follow wound and continue to monitor for any worsening. Also updated on blood transfusion and cxr results. NO for CBC, CMP and itraconazole level to be drawn tomorrow and results faxed to ID physician, Dr. Cordero @ . May call Abdirahman Rhodes CNP (cardiology) with any changes at , fax . Original Note: Pt. CBC results reviewed by Dr. Pike, NO to infuse 2 units PRBC with 40units lasix in between units. Patient also has crackles throughout BL lungs, Dr. Pike made aware, NO for CXR. Dressing changed to Right foot and LLE, incision to LLE with areas of bruising, edema, warmth and tenderness, area to distal end of incision, near ankle, small open areas draining small amount of sanguinous drainage. pulses palpable, extremity warm and pink. Wound nurse consulted. Will continue to monitor.
[2018-02-26] MEDS: Tuberculin,Purif.prot.deriv. 50 TU/ML Vial 5 ML ID (11:26)
[2018-02-26 11:36] LABS: Bedside Glucose 155 mg/dL (70-110)
--- NOTE | 2018-02-26 11:43 | NURSING ---
Addendum entered by Casie Hartman 02/26/18 22:33: Patient returned from TN3 at this time via bed. Patient received 2 units of blood with lasix in between. No issues with transfusion. BP 137/69 P 84 R 18 &97.8 O2 98 on 2 liters. Original Note: 16f conroy catheter inserted with 10mL balloon. Patient tolerated procedure well. Clear, light yellow urine return in tubing. Sterile technique maintained. Report called to NEW Fermin on MS3. Patient left via bed to [facility] at 1145.
[2018-02-26] MEDS: Insulin Lispro 100 UNIT/ML INSULN.PEN 22 UNIT SC (12:33)
[2018-02-26] MEDS: Senna/Docusate Sodium 1 Tablet 2 TABLET PO (18:41)
[2018-02-26] MEDS: MELATONIN 3 MG TABLET PO (22:21)
[2018-02-26 22:26] LABS: Bedside Glucose 284 mg/dL (70-110)
[2018-02-26] MEDS: Fluticasone/Salmeterol 232-14 Inhaler 1 PUFF IH (22:31)
[2018-02-26 22:35] VITALS: BP 137/69; PULSE 84; RESP 18; TEMP 36.6; O2SAT 98
[2018-02-27] MEDS: Cefazolin 2 GM in 0.9% Normal Saline 100 ML IV ×3 (06:40→22:00)
[2018-02-27] MEDS: 0.9% NaCl PICC Flush IV ×3 (06:40→22:00)
[2018-02-27] MEDS: 0.9% NaCl IVPB Med Flush (250 mL) 15 ML IV (06:40)
[2018-02-27] MEDS: Ascorbic Acid 500 MG Tablet PO ×2 (06:51→18:29)
[2018-02-27] MEDS: Carvedilol 6.25 MG Tablet PO ×2 (06:51→18:29)
[2018-02-27] MEDS: Clopidogrel Bisulfate 75 MG Tablet PO (06:52)
[2018-02-27] MEDS: Glimepiride 4 MG Tablet 8 MG PO (06:52)
[2018-02-27] MEDS: Furosemide 40 MG Tablet PO (06:52)
[2018-02-27] MEDS: Lisinopril 5 MG Tablet PO (06:52)
[2018-02-27] MEDS: Lidocaine 5% Patch 1 PATCH TOPICAL (06:53)
[2018-02-27] MEDS: Loratadine 10 MG Tablet PO (06:53)
[2018-02-27] MEDS: Pantoprazole Sodium 40 MG Tablet PO (06:53)
[2018-02-27] MEDS: Voriconazole 200 MG Tablet PO ×2 (06:57→18:29)
[2018-02-27] MEDS: Fluticasone/Salmeterol 232-14 Inhaler 1 PUFF IH ×2 (06:58→18:30)
[2018-02-27] MEDS: Nystatin Powder 15gm Bottle 1 APPLIC TOPICAL ×2 (06:58→17:10)
[2018-02-27] MEDS: oxyCODONE 5 MG Tablet PO ×3 (07:01→22:05)
[2018-02-27 07:05] VITALS: BP 170/77; PULSE 81
[2018-02-27 07:11] LABS: Bedside Glucose 202 mg/dL (70-110)
[2018-02-27 07:17] LABS: International Normalized Ratio 1.2; Prothrombin Time (Protime)PT. 15.3 SECONDS (11.7-14.9)
[2018-02-27 07:20] VITALS: PULSE 79; RESP 20; O2SAT 96
[2018-02-27] MEDS: Ipratropium/Albuterol Sulfate 3 ML AMPUL.NEB INHALATION ×3 (07:25→20:00)
[2018-02-27 07:38] LABS: Absolute Lymphocyte Count 0.68 X10^3/ul (0.83-4.51); Absolute Neutrophil Count 5.5 X10^3/uL (2.0-7.7); Basophil# 0.01 X10^3/uL; Basophil% 0.1 % (0-1); Eosinophil# 0.03 X10^3/uL; Eosinophils% 0.4 % (0-5); Hematocrit 28.3 % (37-47); Hemoglobin 8.7 g/dl (12.0-15.0); Lymphocyte # 0.68 X10^3/ul (4.0); Lymphocyte % 9.4 % (19-41); Mean Corp Hgb Conc 30.7 g/gl (32-36); Mean Corpuscular Hgb 27.4 pg (27.0-32.0); Mean Platelet Vol. 8.3 fl (6.2-12.0); Monocyte# 1.01 X10^3/uL; Monocyte% 13.9 % (0-10); Neutrophil # 5.52 X10^3/uL (2.7-7.7); Neutrophil % 75.9 % (47-70); Platelet Count 423 K/mm3 (150-450); RBC Distribution Width CV 17.9 % (11.6-14.6); RBC Distribution Width SD 52.8 fl (35.1-43.9); Red Blood Count 3.18 M/mm3 (4.2-5.4); White Blood Count 7.3 K/mm3 (4.4-11.0)
[2018-02-27 07:41] LABS: ALB/GLOB Ratio 0.5 RATIO (0.9-2.4); AST(SGOT) 12 U/L (15-37); Alanine Aminotransfer ALT/SGPT < 6 U/L (13-56); Albumin, Serum 1.9 g/dL (3.2-5.0); Alkaline Phosphatase 74 U/L (45-117); Anion Gap 5 (5-15); BUN 12 mg/dL (7-18); BUN/Creat Ratio 22.7 RATIO (10-20); Calcium,Total 8.3 mg/dL (8.5-10.1); Chloride 101 mmol/L (98-107); Creatinine, Serum 0.53 mg/dL (0.55-1.02); EST Glomerular Filtration Rate 122 mL/min (>60); Est Glom Filt Rate - Afr Amer 148 mL/min (>60); Globulin 3.8 g/dL (2.2-4.2); Glucose 197 mg/dL (74-106); Potassium 3.9 mmol/L (3.5-5.1); Protein, Total 5.7 g/dL (6.4-8.2); Sodium Level 141 mmol/L (136-145)
[2018-02-27 07:42] LABS: POSITIVE COUNT NO; POSITIVE DIFFERENTIAL NO; POSITIVE MORPHOLOGY NO
[2018-02-27] MEDS: Folic Acid 1 MG Tablet PO (08:40)
[2018-02-27] MEDS: Aspirin E.C. 81 MG Tablet PO (08:40)
[2018-02-27] MEDS: Cyanocobalamin 500 MCG Tablet 1000 MCG PO (08:40)
[2018-02-27] MEDS: Gabapentin 300 MG Capsule 600 MG PO ×3 (08:41→18:28)
[2018-02-27] MEDS: Insulin Lispro 100 UNIT/ML INSULN.PEN 18 UNIT SC ×2 (08:41→11:51)
[2018-02-27] MEDS: Iron Polysaccharide Complex 150 MG CAPSULE PO ×2 (08:41→18:29)
[2018-02-27] MEDS: Insulin Lispro 100 UNIT/ML INSULN.PEN 22 UNIT SC (08:44)
[2018-02-27] MEDS: Acetaminophen 500 MG Tablet 1000 MG PO (11:32)
[2018-02-27 11:56] LABS: Bedside Glucose 164 mg/dL (70-110)
[2018-02-27 13:38] VITALS: PULSE 73; RESP 18
[2018-02-27 15:51] VITALS: BP 169/61; PULSE 84; RESP 20; TEMP 36.7; O2SAT 98
[2018-02-27 17:06] LABS: Bedside Glucose 149 mg/dL (70-110)
[2018-02-27] MEDS: Menthol/Lanolin/Calamine/Znox 113 GM Tube 1 APPLIC TOPICAL ×2 (17:10→22:00)
--- NOTE | 2018-02-27 17:50 | NURSING ---
Dr Pike aware of 1.2. orders to increase Coumadin to 3mg.
[2018-02-27 20:00] VITALS: PULSE 76; RESP 18
[2018-02-27 21:01] LABS: Bedside Glucose 280 mg/dL (70-110)
[2018-02-27] MEDS: MELATONIN 3 MG TABLET PO (22:00)
[2018-02-28] MEDS: Cefazolin 2 GM in 0.9% Normal Saline 100 ML IV ×3 (05:14→21:06)
[2018-02-28] MEDS: 0.9% NaCl IVPB Med Flush (250 mL) 15 ML IV (05:14)
[2018-02-28] MEDS: 0.9% NaCl PICC Flush IV ×3 (05:14→21:06)
[2018-02-28] MEDS: Fluticasone/Salmeterol 232-14 Inhaler 1 PUFF IH ×2 (05:15→17:17)
[2018-02-28] MEDS: Loratadine 10 MG Tablet PO (05:22)
[2018-02-28] MEDS: Furosemide 40 MG Tablet PO (05:23)
[2018-02-28] MEDS: Pantoprazole Sodium 40 MG Tablet PO (05:23)
[2018-02-28] MEDS: Lisinopril 5 MG Tablet PO (05:23)
[2018-02-28] MEDS: Glimepiride 4 MG Tablet 8 MG PO (05:23)
[2018-02-28] MEDS: Carvedilol 6.25 MG Tablet PO ×2 (05:23→17:17)
[2018-02-28] MEDS: Clopidogrel Bisulfate 75 MG Tablet PO (05:23)
[2018-02-28] MEDS: Menthol/Lanolin/Calamine/Znox 113 GM Tube 1 APPLIC TOPICAL ×3 (05:23→20:18)
[2018-02-28] MEDS: Nystatin Powder 15gm Bottle 1 APPLIC TOPICAL ×2 (05:23→17:22)
[2018-02-28] MEDS: Ascorbic Acid 500 MG Tablet PO ×2 (05:23→17:18)
[2018-02-28] MEDS: Lidocaine 5% Patch 1 PATCH TOPICAL (05:24)
[2018-02-28] MEDS: Voriconazole 200 MG Tablet PO ×2 (05:30→20:17)
[2018-02-28 06:31] LABS: International Normalized Ratio 1.3
[2018-02-28 06:56] LABS: Bedside Glucose 192 mg/dL (70-110)
[2018-02-28 07:20] VITALS: PULSE 75; RESP 16; O2SAT 98
[2018-02-28] MEDS: Ipratropium/Albuterol Sulfate 3 ML AMPUL.NEB INHALATION ×2 (07:20→15:30)
[2018-02-28] MEDS: oxyCODONE 5 MG Tablet PO ×3 (08:24→22:10)
[2018-02-28] MEDS: Folic Acid 1 MG Tablet PO (08:29)
[2018-02-28] MEDS: Cyanocobalamin 500 MCG Tablet 1000 MCG PO (08:29)
[2018-02-28] MEDS: Aspirin E.C. 81 MG Tablet PO (08:30)
[2018-02-28] MEDS: Insulin Lispro 100 UNIT/ML INSULN.PEN 22 UNIT SC (08:30)
[2018-02-28] MEDS: Gabapentin 300 MG Capsule 600 MG PO ×3 (08:30→17:16)
[2018-02-28] MEDS: Iron Polysaccharide Complex 150 MG CAPSULE PO ×2 (08:30→17:15)
--- NOTE | 2018-02-28 08:36 | NURSING ---
pain to lle 610, oxyir adm
[2018-02-28 11:15] LABS: Bedside Glucose 189 mg/dL (70-110)
[2018-02-28] MEDS: Insulin Lispro 100 UNIT/ML INSULN.PEN 18 UNIT SC ×2 (11:57→17:21)
[2018-02-28] MEDS: Acetaminophen 500 MG Tablet 1000 MG PO (12:02)
--- NOTE | 2018-02-28 13:15 | CASEMGMT ---
Plan of care meeting held. Resident present as well as resident family. No discharge date set at this time. Resident to continue with further care and treatment on the Transitional Care Unit at this time. Resident plans to discharge home alone at time of discharge. Support given. Will continue to follow. Skye MILLER, DUAL RATE DEALER
[2018-02-28 15:15] VITALS: BP 133/72; PULSE 90; RESP 18; TEMP 37.1
[2018-02-28 15:34] VITALS: PULSE 90; RESP 18; O2SAT 98
[2018-02-28 16:55] LABS: Bedside Glucose 194 mg/dL (70-110)
[2018-02-28] MEDS: Senna/Docusate Sodium 1 Tablet 2 TABLET PO (17:17)
[2018-02-28 20:46] LABS: Bedside Glucose 208 mg/dL (70-110)
[2018-02-28] MEDS: MELATONIN 3 MG TABLET PO (21:13)
[2018-03-01] MEDS: Fluticasone/Salmeterol 232-14 Inhaler 1 PUFF IH ×2 (05:07→17:23)
[2018-03-01] MEDS: Clopidogrel Bisulfate 75 MG Tablet PO (05:08)
[2018-03-01] MEDS: Glimepiride 4 MG Tablet 8 MG PO (05:09)
[2018-03-01] MEDS: Loratadine 10 MG Tablet PO (05:09)
[2018-03-01] MEDS: Carvedilol 6.25 MG Tablet PO ×2 (05:09→17:23)
[2018-03-01] MEDS: Senna/Docusate Sodium 1 Tablet 2 TABLET PO ×2 (05:09→17:22)
[2018-03-01] MEDS: Furosemide 40 MG Tablet PO (05:09)
[2018-03-01] MEDS: Ascorbic Acid 500 MG Tablet PO ×2 (05:10→17:22)
[2018-03-01] MEDS: Lisinopril 5 MG Tablet PO (05:10)
[2018-03-01] MEDS: Menthol/Lanolin/Calamine/Znox 113 GM Tube 1 APPLIC TOPICAL ×3 (05:11→21:08)
[2018-03-01] MEDS: Lidocaine 5% Patch 1 PATCH TOPICAL (05:11)
[2018-03-01] MEDS: Pantoprazole Sodium 40 MG Tablet PO (05:11)
[2018-03-01] MEDS: Nystatin Powder 15gm Bottle 1 APPLIC TOPICAL ×2 (05:11→17:23)
[2018-03-01] MEDS: 0.9% NaCl PICC Flush IV ×4 (05:12→21:09)
[2018-03-01 05:30] LABS: International Normalized Ratio 1.4; Prothrombin Time (Protime)PT. 17.1 SECONDS (11.7-14.9)
[2018-03-01] MEDS: Cefazolin 2 GM in 0.9% Normal Saline 100 ML IV ×3 (05:34→21:12)
[2018-03-01] MEDS: Voriconazole 200 MG Tablet PO ×2 (05:34→18:00)
[2018-03-01] MEDS: 0.9% NaCl IVPB Med Flush (250 mL) 15 ML IV ×2 (05:35→14:14)
[2018-03-01 06:47] VITALS: PULSE 84; RESP 16; O2SAT 97
[2018-03-01] MEDS: Ipratropium/Albuterol Sulfate 3 ML AMPUL.NEB INHALATION ×3 (06:47→19:35)
[2018-03-01 06:51] LABS: Bedside Glucose 238 mg/dL (70-110)
[2018-03-01] MEDS: Cyanocobalamin 500 MCG Tablet 1000 MCG PO (08:06)
[2018-03-01] MEDS: Iron Polysaccharide Complex 150 MG CAPSULE PO ×2 (08:06→17:20)
[2018-03-01] MEDS: Folic Acid 1 MG Tablet PO (08:06)
[2018-03-01] MEDS: Aspirin E.C. 81 MG Tablet PO (08:06)
[2018-03-01] MEDS: Gabapentin 300 MG Capsule 600 MG PO ×3 (08:06→17:21)
[2018-03-01] MEDS: Insulin Lispro 100 UNIT/ML INSULN.PEN 22 UNIT SC (08:07)
[2018-03-01] MEDS: oxyCODONE 5 MG Tablet PO ×3 (08:09→21:07)
--- NOTE | 2018-03-01 10:40 | CASEMGMT ---
Brief interview for mental status (BIMS) and resident mood interview (PHQ-9) completed on this day. BIMS score 15. PHQ-9 score 11/13.
[2018-03-01 11:16] LABS: Bedside Glucose 225 mg/dL (70-110)
[2018-03-01] MEDS: Insulin Lispro 100 UNIT/ML INSULN.PEN 18 UNIT SC ×2 (11:34→17:21)
[2018-03-01 13:00] VITALS: PULSE 81; RESP 16
[2018-03-01] MEDS: Acetaminophen 500 MG Tablet 1000 MG PO (13:01)
[2018-03-01 15:27] VITALS: BP 112/54; PULSE 86; RESP 18; TEMP 36.2; O2SAT 97
[2018-03-01 16:51] LABS: Bedside Glucose 165 mg/dL (70-110)
[2018-03-01 19:35] VITALS: PULSE 101; RESP 16; O2SAT 94
[2018-03-01 20:32] VITALS: O2SAT 91
[2018-03-01 20:51] LABS: Bedside Glucose 270 mg/dL (70-110)
[2018-03-01] MEDS: MELATONIN 3 MG TABLET PO (21:08)
[2018-03-02] MEDS: 0.9% NaCl PICC Flush IV ×5 (05:06→21:23)
[2018-03-02] MEDS: Lidocaine 5% Patch 1 PATCH TOPICAL (05:12)
[2018-03-02] MEDS: Loratadine 10 MG Tablet PO (05:13)
[2018-03-02] MEDS: Menthol/Lanolin/Calamine/Znox 113 GM Tube 1 APPLIC TOPICAL ×3 (05:13→21:23)
[2018-03-02] MEDS: Carvedilol 6.25 MG Tablet PO ×2 (05:13→17:09)
[2018-03-02] MEDS: Furosemide 40 MG Tablet PO (05:13)
[2018-03-02] MEDS: Glimepiride 4 MG Tablet 8 MG PO (05:13)
[2018-03-02] MEDS: Fluticasone/Salmeterol 232-14 Inhaler 1 PUFF IH ×2 (05:13→17:09)
[2018-03-02] MEDS: Nystatin Powder 15gm Bottle 1 APPLIC TOPICAL ×2 (05:13→17:11)
[2018-03-02] MEDS: Pantoprazole Sodium 40 MG Tablet PO (05:14)
[2018-03-02] MEDS: Clopidogrel Bisulfate 75 MG Tablet PO (05:14)
[2018-03-02] MEDS: Lisinopril 5 MG Tablet PO (05:14)
[2018-03-02] MEDS: Senna/Docusate Sodium 1 Tablet 2 TABLET PO ×2 (05:14→17:12)
[2018-03-02] MEDS: Ascorbic Acid 500 MG Tablet PO ×2 (05:14→17:13)
[2018-03-02] MEDS: Cefazolin 2 GM in 0.9% Normal Saline 100 ML IV ×3 (05:27→21:23)
[2018-03-02 05:30] LABS: International Normalized Ratio 1.4; Prothrombin Time (Protime)PT. 16.9 SECONDS (11.7-14.9)
[2018-03-02 06:56] LABS: Bedside Glucose 190 mg/dL (70-110)
[2018-03-02 07:08] VITALS: PULSE 76; RESP 18; O2SAT 99
[2018-03-02] MEDS: Ipratropium/Albuterol Sulfate 3 ML AMPUL.NEB INHALATION ×2 (07:08→13:26)
[2018-03-02] MEDS: Aspirin E.C. 81 MG Tablet PO (07:58)
[2018-03-02] MEDS: Cyanocobalamin 500 MCG Tablet 1000 MCG PO (07:58)
[2018-03-02] MEDS: Folic Acid 1 MG Tablet PO (07:58)
[2018-03-02] MEDS: Gabapentin 300 MG Capsule 600 MG PO ×3 (07:58→17:08)
[2018-03-02] MEDS: Voriconazole 200 MG Tablet PO ×2 (07:59→21:23)
[2018-03-02] MEDS: Iron Polysaccharide Complex 150 MG CAPSULE PO ×2 (07:59→17:07)
[2018-03-02] MEDS: Insulin Lispro 100 UNIT/ML INSULN.PEN 22 UNIT SC (08:00)
[2018-03-02] MEDS: oxyCODONE 5 MG Tablet PO ×3 (09:04→21:35)
[2018-03-02 12:01] LABS: Bedside Glucose 124 mg/dL (70-110)
[2018-03-02] MEDS: Insulin Lispro 100 UNIT/ML INSULN.PEN 18 UNIT SC (12:02)
[2018-03-02] MEDS: Acetaminophen 500 MG Tablet 1000 MG PO ×2 (12:09→20:15)
[2018-03-02 13:26] VITALS: PULSE 88; RESP 18
[2018-03-02] MEDS: 0.9% NaCl IVPB Med Flush (250 mL) 15 ML IV (15:43)
[2018-03-02 15:44] VITALS: BP 146/72; PULSE 89; RESP 20; TEMP 36.8; O2SAT 93
[2018-03-02 17:01] LABS: Bedside Glucose 104 mg/dL (70-110)
[2018-03-02 19:55] VITALS: PULSE 88; RESP 17
[2018-03-02 20:11] LABS: Bedside Glucose 264 mg/dL (70-110)
[2018-03-02] MEDS: MELATONIN 3 MG TABLET PO (21:24)
[2018-03-03] MEDS: oxyCODONE 5 MG Tablet PO (04:04)
[2018-03-03] MEDS: 0.9% NaCl PICC Flush IV ×2 (04:11→05:45)
[2018-03-03 04:31] LABS: International Normalized Ratio 1.4; Prothrombin Time (Protime)PT. 16.9 SECONDS (11.7-14.9)
[2018-03-03] MEDS: Lidocaine 5% Patch 1 PATCH TOPICAL (05:42)
[2018-03-03] MEDS: Fluticasone/Salmeterol 232-14 Inhaler 1 PUFF IH (05:42)
[2018-03-03] MEDS: Furosemide 40 MG Tablet PO (05:44)
[2018-03-03] MEDS: Glimepiride 4 MG Tablet 8 MG PO (05:44)
[2018-03-03] MEDS: Loratadine 10 MG Tablet PO (05:44)
[2018-03-03] MEDS: Carvedilol 6.25 MG Tablet PO (05:44)
[2018-03-03] MEDS: Menthol/Lanolin/Calamine/Znox 113 GM Tube 1 APPLIC TOPICAL ×2 (05:44→13:20)
[2018-03-03] MEDS: Lisinopril 5 MG Tablet PO (05:45)
[2018-03-03] MEDS: Voriconazole 200 MG Tablet PO (05:45)
[2018-03-03] MEDS: Clopidogrel Bisulfate 75 MG Tablet PO (05:45)
[2018-03-03] MEDS: Pantoprazole Sodium 40 MG Tablet PO (05:45)
[2018-03-03] MEDS: Nystatin Powder 15gm Bottle 1 APPLIC TOPICAL (05:45)
[2018-03-03] MEDS: Ascorbic Acid 500 MG Tablet PO (05:45)
[2018-03-03] MEDS: Senna/Docusate Sodium 1 Tablet 2 TABLET PO (05:45)
[2018-03-03] MEDS: Cefazolin 2 GM in 0.9% Normal Saline 100 ML IV ×2 (05:52→13:43)
[2018-03-03 06:50] LABS: Bedside Glucose 198 mg/dL (70-110)
[2018-03-03 07:24] VITALS: PULSE 94; RESP 18; O2SAT 94
[2018-03-03] MEDS: Ipratropium/Albuterol Sulfate 3 ML AMPUL.NEB INHALATION ×2 (07:24→13:33)
[2018-03-03] MEDS: Folic Acid 1 MG Tablet PO (08:16)
[2018-03-03] MEDS: Aspirin E.C. 81 MG Tablet PO (08:16)
[2018-03-03] MEDS: Iron Polysaccharide Complex 150 MG CAPSULE PO (08:16)
[2018-03-03] MEDS: Gabapentin 300 MG Capsule 600 MG PO ×2 (08:16→11:49)
[2018-03-03] MEDS: Cyanocobalamin 500 MCG Tablet 1000 MCG PO (08:18)
[2018-03-03] MEDS: Insulin Lispro 100 UNIT/ML INSULN.PEN 22 UNIT SC (08:18)
[2018-03-03 11:21] LABS: Bedside Glucose 140 mg/dL (70-110)
[2018-03-03] MEDS: Insulin Lispro 100 UNIT/ML INSULN.PEN 18 UNIT SC (11:47)
[2018-03-03 13:33] VITALS: PULSE 98; RESP 18
[2018-03-03] MEDS: 0.9% NaCl IVPB Med Flush (250 mL) 15 ML IV (13:43)
[2018-03-03 13:51] LABS: Bedside Glucose 161 mg/dL (70-110)
--- NOTE | 2018-03-03 14:17 | NURSING ---
Addendum entered by Lucrecia Scott 03/03/18 17:51: Patient admitted to MS 308 for dx of BL pleural effusions, UTI, osteomyelitis and febrile infection. Original Note: Upon entering patient's room patient appears flushed and respirations rapid. Vitals 151/87, 105, 89% 2L, 22, 101.0. LSCTA, diminished in bases. HR regular rhythm and tachycardic. 2+ edema to BLLE, patient feels hot to touch and is diaphoretic. Patient denies any nausea, coughing or malaise. C/O lethargy. Dr. Pike made aware, order to sent to ER for evaluation. Patient left via bed to ER at 1410. Patients son, Saurabh, made aware. Report called to NEW Brunner in ER. Orders sent.
--- NOTE | 2018-03-04 07:57 | PCM.DC.SUM ---
Discharge Date and Diagnosis Date of Admission: 02/25/18 Date of Discharge: 03/03/18 - Primary Discharge Diagnosis Fever. - Secondary Discharge Diagnosis Chronic Problems (Last Reviewed 11/22/17 @ 13:19 by Sherie Alves) Coronary artery disease (Chronic) Diabetes mellitus (Chronic) Obesity (Chronic) Neuropathic pain (Chronic) Obesity (BMI 30.0-34.9) (Chronic) HERNANDEZ (dyspnea on exertion) (Chronic) ELDER (obstructive sleep apnea) (Chronic) COPD (chronic obstructive pulmonary disease) (Chronic) Neuropathic pain (Chronic) Allergic rhinitis (Chronic) Asthma (Chronic) Mild asthma (Chronic) Osteoarthritis (Chronic) Hyperlipidemia (Chronic) Hypertension (Chronic) Type 2 diabetes mellitus (Chronic) Hospital Course and Treatment Consultations 02/25/18 Consult: Onc/Wound/demolitionist Routine Comment: Reason for Consult:: rt toe abcess post i&d, lt leg hematoma, stage III pressure ulcer Operations: None Procedures: None Summary of Care Provided: The patient is a 67 year old Female with below past medical history hospitalized for CABG x 3, complicated by post-operative anemia, left foot osteomyelitis, admitted to TCU with debility, here for rehabilitation, strengthening, prior to discharge home alone. 03/03/2018 Resident developed fever, already on intravenous antibiotics for cellulitis of leg. Discharge to [facility] Emergency Department for admission to hospital. Discharge Diet: No Restrictions Discharge Activity: Use Walker Weight Bearing Status: Weight bearing as tolerated Call your doctor if you observe: Fever of 101 or Higher, Inability to urinate, Inability to have a bowel movement, Shortness of breath, Chest pain, Uncontrolled pain Home Medications: Medications to take at Discharge Cyanocobalamin [Vitamin B12] 1,000 mcg PO DAILY@0800 01/18/17 Lisinopril [Prinivil] 5 mg PO DAILY 01/18/17 gabapentin 300 mg capsule 600 mg PO TID cap 08/23/17 Glimepiride [Amaryl] 8 mg PO DAILY 09/18/17 Loratadine 10 mg PO DAILY 09/18/17 Lidocaine [Lidoderm Patch] 1 patch TRANSDERM. DAILY 02/04/18 Acetaminophen [Non-Aspirin Pain Relief] 1,000 mg PO Q8 03/04/18 Ascorbic Acid [Vitamin C] 500 mg PO BIDCM 03/04/18 Aspirin E.C. [Ecotrin] 81 mg PO DAILY@0800 03/04/18 Benzocaine/Menthol [Cepacol Sore Throat Lozenge] 1 lozenge MM Q2H PRN PRN 03/04/18 Bisacodyl [Dulcolax] 10 mg RECTAL DAILY PRN PRN 03/04/18 Carvedilol [Coreg] 6.25 mg PO BID 03/04/18 Cefazolin Sodium in 0.9 % NaCl [Cefazolin 2 G/100 ml-0.9% NaCl] 2 gm IV Q8 03/04/18 Clopidogrel Bisulfate [Plavix] 75 mg PO DAILY 03/04/18 Fluticasone/Salmeterol [Fluticasone-Salmeterol 232-14] 1 each IH BID 03/04/18 Folic Acid 1 mg PO DAILY@0800 03/04/18 Furosemide [Lasix] 40 mg PO DAILY 03/04/18 Glucagon [(None)] 1 mg IM X1 PRN 03/04/18 Insulin Detemir [Levemir (BKC)] 20 units SC QHS 03/04/18 Insulin Lispro [Humalog KwikPen] 18 unit SQ DAILY@1200 03/04/18 Insulin Lispro [Humalog KwikPen] 18 unit SQ DAILY@1700 03/04/18 Insulin Lispro [Humalog KwikPen] 22 unit SQ BREAKFAST 03/04/18 Ipratropium/Albuterol Sulfate [Duoneb] 3 ml INHALATION TID 03/04/18 Iron Polysaccharide Complex [Ferrex 150] 150 mg PO BID 03/04/18 Melatonin 3 mg PO QHS 03/04/18 Menthol/Lanolin/Calamine/Znox [Calmoseptine Ointment] 1 applic TP TID 03/04/18 Nystatin Powder [Mycostatin Powder] 1 applic TOPICAL BID 03/04/18 Oxycodone [Oxyir] 5 mg PO Q6H PRN PRN 03/04/18 Pantoprazole Sodium [Protonix] 40 mg PO DAILY 03/04/18 Polyethylene Glycol 3350 [Miralax] 17 gm PO DAILY 03/04/18 Senna/Docusate Sodium [Senokot-S, Iqra-Colace] 2 tablet PO BID 03/04/18 Voriconazole [Vfend] 200 mg PO Q12H 03/04/18 Warfarin [Coumadin (PBKC)] 3 mg PO DAILY 03/04/18 Primary Care Physician: Baron Pike Chi, MD [Primary Care Provider] - Please follow up with your Primary Care Physician in: After Hospitalization/TCU. Please Follow Up With: Mehran Rhodes When: 2 weeks Please Follow Up With: Dr. Saurabh Cordero III When: 2 weeks Please Follow Up With: Dr Gonzalez Disposition: Acute care Hospital Minutes spent on discharge:: 30 Patient Condition:: Guarded Medical Necessity - Tobacco Use Smoking Status: Former smoker Tobacco Use: Non-smoker Meaningful Use Info Meaningful Use Diagnoses (Choose all that apply): None applicable
--- NOTE | 2018-03-07 09:38 | MDS.RN ---
Information for the mds was obtained from review of the clinical record, interview of resident, staff, and direct observation of resident's care.
== END 2018-03-03 17:45 | disposition short-term general hospital (02) | DRG 949 ==
PROVIDERS: Admitting Provider Family Medicine Geriatric Medicine; Family Provider Family Medicine Geriatric Medicine; PCP Family Medicine Geriatric Medicine; Visit Provider Family Medicine Geriatric Medicine
DX: Z48.812 Encounter for surgical aftercare following surgery on the circulatory system (principal); L89.893 Pressure ulcer of other site, stage 3; M86.8X7 Other osteomyelitis, ankle and foot; I82.622 Acute embolism and thrombosis of deep veins of left upper extremity; I25.10 Atherosclerotic heart disease of native coronary artery without angina pectoris; E11.621 Type 2 diabetes mellitus with foot ulcer; D50.9 Iron deficiency anemia, unspecified; B35.4 Tinea corporis; K21.9 Gastro-esophageal reflux disease without esophagitis; J44.9 Chronic obstructive pulmonary disease, unspecified; E66.9 Obesity, unspecified; G47.33 Obstructive sleep apnea (adult) (pediatric); E78.5 Hyperlipidemia, unspecified; I10 Essential (primary) hypertension; M19.90 Unspecified osteoarthritis, unspecified site; Z95.1 Presence of aortocoronary bypass graft; Z68.31 Body mass index [BMI] 31.0-31.9, adult; Z71.3 Dietary counseling and surveillance; Z87.891 Personal history of nicotine dependence
CPT/HCPCS: 36430; 71045; 80048; 80053; 82962; 85025; 85610; 86850; 86900; 86920; 86922; 94640; 97110; 97116; 97162; 97166; 97530; 97535; 97802; J7040; J7050; P9016; A4216; J1940

== ENCOUNTER 2018-02-26 12:01 | Outpatient (CLI) | payer SELFPAY ==
[2018-02-26] VITALS (10 sets, daily range): BP systolic 137–153; BP diastolic 53–71; PULSE 84–92; RESP 17–22; TEMP 36.2–37.5; O2SAT 97–99
[2018-02-26] MEDS: 0.9% NaCl PICC Flush IV ×3 (14:11→21:35)
--- NOTE | 2018-02-26 14:24 | NURSING ---
blood initiated at 1411 and this RN stayed in room with pt. for first 15 minutes while blood infused at 15cc/hr. Then, rate increased to 120cc/hr
--- NOTE | 2018-02-26 17:10 | NURSING ---
1st unit PRBC transfused. Antibiotic that was due at 1400 now hung. Lasix will be given followed by another unit of PRBC's.
[2018-02-26] MEDS: Furosemide 40 MG/4 ML Vial IV (18:33)
--- NOTE | 2018-02-26 19:38 | NURSING ---
This RN checked pt's BGT prior to eating dinner. Humalog not on unit for patient to be given. also, noted on NOV that 1799 Humalog had been charted on previously by another nurse. This RN called TCU and spoke with NEW Mccurdy and notified her of same. also notified that last unit is up and running and pt will return when completed.
--- NOTE | 2018-02-26 21:46 | NURSING ---
report called to gabi in tcu
[2018-03-05 12:15] LABS: Bedside Glucose 161 mg/dL (70-110)
== END 2018-02-26 21:55 | disposition skilled nursing facility (03) ==
LOC: MS3OUT 12:03 → MS3 12:03
PROVIDERS: Family Provider Family Medicine Geriatric Medicine; PCP Family Medicine Geriatric Medicine; Visit Provider Family Medicine Geriatric Medicine
DX: D64.9 Anemia, unspecified (principal); R32 Unspecified urinary incontinence; L89.90 Pressure ulcer of unspecified site, unspecified stage
CPT/HCPCS: 36430; 82962; 86850; 86900; 86920; 86922; J7040; P9016; A4216; J1940

== ENCOUNTER 2018-03-03 14:14 | Inpatient (IN) | payer MEDICARE, OTHER, SELFPAY ==
[2018-03-03] VITALS (11 sets, daily range): BP systolic 127–161; BP diastolic 46–56; PULSE 86–101; RESP 24–28; TEMP 36.9–38.6; O2SAT 90–98; BMI 29.5; BMI 29.2
--- NOTE | 2018-03-03 14:43 | EKG12_ITS ---
Test Reason : GEN ILL Blood Pressure : / mmHG Vent. Rate : 100 BPM Atrial Rate : 100 BPM P-R Int : 150 ms QRS Dur : 080 ms QT Int : 356 ms P-R-T Axes : 046 082 088 degrees QTc Int : 459 ms Normal sinus rhythm Nonspecific ST and T wave abnormality Abnormal ECG Confirmed by BRITTON HOYOS, ARASELI ([id number]), sports editor JEFFREY ANGLIN ([id number]) on 03/06/2018 3:53:11 PM Referred By: SUSY Confirmed By:ARASELI JARQUIN MD
--- NOTE | 2018-03-03 14:43 | RAD_ITS ---
STUDY: X-RAY CHEST REASON FOR EXAM: Female, 67 years old. Pre-op open heart with fever TECHNIQUE: Single AP portable view of the chest. COMPARISON: February 26, 2018 chest x-ray FINDINGS: There is persistent blunting of the left costophrenic angle. There is persistent hazy appearance of the right cardiophrenic angle. Sternotomy wires are seen midline. Normal mediastinum and cristofer. Normal visualized pulmonary arteries. There is atherosclerotic calcification of the aortic arch with tortuosity. There are diffuse degenerative changes of the visualized thoracic spine. Normal visualized ribs, clavicles, and shoulders. There is no demonstrated abnormality of the visualized soft tissue structures of the upper abdomen. RAD/Chest 1 View (Portable) IMPRESSION: Findings are suspicious for persistent bilateral pleural effusions lower lobe atelectasis. Status post sternotomy. Electronically Signed: Faye Rojas MD at 15:13 EDT Tel , Service support ,
--- NOTE | 2018-03-03 14:49 | ED.VISSUMM ---
- ER Visit Summary Date of Service: 03/03/18 Chief Complaint: Fever History of Present Illness: The patient is a 67 F presenting with fever, hypoxia. Patient was admitted to the TCU on 02/25/2018. She had CABG on February 15 at [facility]. This was complicated by anemia, osteomyelitis left foot, left upper extremity DVT. She is on IV antibiotics and is being followed by ID. Today noted that she was 88% on 2 L with a temperature of 101. She was sent to the ED for further evaluation. Physical Examination: Vitals are stable. Patient is afebrile. Alert no acute distress. HEENT exam is unremarkable. Neck is supple. Lungs are clear and equal bilaterally. Incision clean dry intact Heart is regular rate and rhythm. Abdomen is soft nontender nondistended. Extremities left calf incision with surrounding erythema, right foot ulcerations. Skin is warm and dry. No focal neurologic deficit. Remainder of exam is unremarkable. Emergency Department Course and Treatment: EKG is sinus rate of 100. Chest x-ray shows bilateral effusions. CBC showed hemoglobin 8.5, hematocrit 27.5. This is stable from previous. Chemistry show sodium 133, glucose 149. INR is 1.5. Urinalysis shows 10-25 white blood cells positive bacteria. Troponin is 0.019. Lactic acid is normal. Blood and urine cultures were sent. Discussed with ID recommends switching cefazolin to cefepime. Discussed with Dr. Hairston for admission. Disposition: Admission Impression: Febrile illness, UTI, right foot osteomyelitis, left lower extremity cellulitis This note was generated with [employer] dictation software. It may contain incorrect words, spelling, and punctuation that were not noted in review of the chart prior to signing ED Disposition - Plan for ED Patient: Chief Complaint: General Illness Referrals: Baron Pike Chi, MD [Primary Care Provider] -
--- NOTE | 2018-03-03 14:52 | ED.DCSUM_ITS ---
- ER Visit Summary Date of Service: 03/03/18 Chief Complaint: Fever History of Present Illness: The patient is a 67 F presenting with fever, hypoxia. Patient was admitted to the TCU on 02/25/2018. She had CABG on February 15 at [facility]. This was complicated by anemia, osteomyelitis left foot, left upper extremity DVT. She is on IV antibiotics and is being followed by ID. Today noted that she was 88% on 2 L with a temperature of 101. She was sent to the ED for further evaluation. Physical Examination: Vitals are stable. Patient is afebrile. Alert no acute distress. HEENT exam is unremarkable. Neck is supple. Lungs are clear and equal bilaterally. Incision clean dry intact Heart is regular rate and rhythm. Abdomen is soft nontender nondistended. Extremities left calf incision with surrounding erythema, right foot ulcerations. Skin is warm and dry. No focal neurologic deficit. Remainder of exam is unremarkable. Emergency Department Course and Treatment: EKG is sinus rate of 100. Chest x- ray shows bilateral effusions. CBC showed hemoglobin 8.5, hematocrit 27.5. This is stable from previous. Chemistry show sodium 133, glucose 149. INR is 1.5. Urinalysis shows 10-25 white blood cells positive bacteria. Troponin is 0.019. Lactic acid is normal. Blood and urine cultures were sent. Discussed with ID recommends switching cefazolin to cefepime. Discussed with Dr. Hairston for admission. Disposition: Admission Impression: Febrile illness, UTI, right foot osteomyelitis, left lower extremity cellulitis This note was generated with [employer] dictation software. It may contain incorrect words, spelling, and punctuation that were not noted in review of the chart prior to signing ED Disposition - Plan for ED Patient: Chief Complaint: General Illness Referrals: Baron Pike Chi, MD [Primary Care Provider] -
[2018-03-03 15:10] LABS: Mucous, Urine 0 SEEN /hpf (<or=2+); Red Blood Cells-Urine 0 SEEN /hpf (0-5)
[2018-03-03 15:18] LABS: Color, Urine Yellow (Yellow); Glucose, Dipstick Normal (Normal); Ketone-Dipstick 5 mg/dl (Negative); Leukocyte Esterase-Dipstick 100 /ul (Negative); Nitrite-Dipstick Negative (Negative); Occult Blood-Urine 25 /ul (Negative); Protein-Dipstick 100 mg/dl (Negative); Specific Gravity, Urine 1.015 (1.002-1.030); Urine Bilirubin Dipstick Negative (Negative); Urine Clarity Clear (Clear); Urine Urobilinogen 4 mg/dl (Normal)
[2018-03-03 15:25] LABS: International Normalized Ratio 1.5; Prothrombin Time (Protime)PT. 18.2 SECONDS (11.7-14.9)
[2018-03-03 15:27] LABS: Absolute Neutrophil Count 8.8 X10^3/uL (2.0-7.7); Basophil# 0.01 X10^3/uL; Basophil% 0.1 % (0-1); Eosinophil# 0.01 X10^3/uL; Eosinophils% 0.1 % (0-5); Hematocrit 27.5 % (37-47); Hemoglobin 8.5 g/dl (12.0-15.0); Lymphocyte % 6.6 % (19-41); Mean Corp Hgb Conc 30.9 g/gl (32-36); Mean Corpuscular Volume 87.3 fL (81-99); Mean Platelet Vol. 8.3 fl (6.2-12.0); Monocyte# 1.08 X10^3/uL; Monocyte% 10.2 % (0-10); Neutrophil # 8.79 X10^3/uL (2.7-7.7); Neutrophil % 82.8 % (47-70); POSITIVE COUNT NO; POSITIVE DIFFERENTIAL NO; POSITIVE MORPHOLOGY NO; Platelet Count 252 K/mm3 (150-450); RBC Distribution Width CV 18.1 % (11.6-14.6); RBC Distribution Width SD 57.2 fl (35.1-43.9); Red Blood Count 3.15 M/mm3 (4.2-5.4); White Blood Count 10.6 K/mm3 (4.4-11.0)
[2018-03-03 15:36] LABS: Bacteria 1+ /hpf (None Seen); Squamous Epithelial Cells - UA 0-5 SEEN /hpf (5-10); White Blood Cells 10-25 SEEN /hpf (0-5)
[2018-03-03 15:44] LABS: Anion Gap 7 (5-15); BUN 12 mg/dL (7-18); BUN/Creat Ratio 21.1 RATIO (10-20); Calcium,Total 8.1 mg/dL (8.5-10.1); Chloride 95 mmol/L (98-107); Creatinine, Serum 0.57 mg/dL (0.55-1.02); EST Glomerular Filtration Rate 112 mL/min (>60); Est Glom Filt Rate - Afr Amer 136 mL/min (>60); Estimated Creatinine Clearance 44.54 ml/min; Glucose 149 mg/dL (74-106); Potassium 3.4 mmol/L (3.5-5.1); Sodium Level 133 mmol/L (136-145)
[2018-03-03 15:51] LABS: Lactic Acid 0.7 mmol/L (0.4-2.0)
--- NOTE | 2018-03-03 18:50 | PCM.HP.STD ---
Problem List (1) Osteomyelitis of left foot Status: Acute Qualifiers: Osteomyelitis type: unspecified type Qualified Code(s): M86.9 - Osteomyelitis, unspecified (2) Coronary artery disease Status: Chronic Qualifiers: Coronary Disease-Associated Artery/Lesion type: unspecified vessel or lesion type Associated angina: without angina (3) Diabetes mellitus Status: Chronic Qualifiers: Diabetes mellitus type: type 2 Diabetes mellitus halfway insulin use: unspecified middle or intermediate school principal insulin use status Diabetes mellitus complication status: with unspecified complications Qualified Code(s): E11.8 - Type 2 diabetes mellitus with unspecified complications (4) Obesity Status: Chronic Qualifiers: Obesity type: unspecified obesity type (5) Neuropathic pain Status: Chronic (6) Cellulitis of right foot Status: Acute (7) Hyperlipidemia Status: Chronic Qualifiers: Hyperlipidemia type: unspecified Qualified Code(s): E78.5 - Hyperlipidemia, unspecified History of Present Illness Date of Admission: 03/03/18 Chief Complaint: Fever and hypoxia The patient is a 67 year old F with past medical history of CAD status post CABG(3 vessel, done in [facility] after transfer from [facility] on February 15), left lower extremity cellulitis as well as right foot osteomyelitis. Patient was admitted to the TCU on 02/25/2018 for rehab. She is being managed with anemia, osteomyelitis of the left foot, left upper extremity DVT. She was brought to the ED with complaints of fever and hypoxia. She is on cefazolin and is being followed by infectious disease. Patient was noted today to have SPO2 of 88% on 2 L of oxygen and with a temperature of 101. She was sent to the ED for evaluation. On arrival to the ED, temperature 98.4, heart rate is 101, blood pressure 153/56, respiratory rate was 28, saturating 93% on 3 L of oxygen. Lab Investigation appeared stable with WBC count of 10.6, Hb 8.5, platelets of 252. INR is 1.5, sodium 133, potassium 3.4 chloride 95, bicarb 31, BUN 12, creatinine 0.57. Lactic acid was 0.7. Urine cultures have been taking in the ED. Past Medical History Past Medical History (Chronic Problems): Chronic Problems (Last Reviewed 11/22/17 @ 13:19 by Sherie Alves) Coronary artery disease (Chronic) Diabetes mellitus (Chronic) Obesity (Chronic) Neuropathic pain (Chronic) Obesity (BMI 30.0-34.9) (Chronic) HERNANDEZ (dyspnea on exertion) (Chronic) ELDER (obstructive sleep apnea) (Chronic) COPD (chronic obstructive pulmonary disease) (Chronic) Neuropathic pain (Chronic) Allergic rhinitis (Chronic) Asthma (Chronic) Mild asthma (Chronic) Osteoarthritis (Chronic) Hyperlipidemia (Chronic) Hypertension (Chronic) Type 2 diabetes mellitus (Chronic) Medical History: Medical History (Last Reviewed 11/22/17 @ 13:19 by Sherie Alves) Suspected sleep apnea (Acute) G47.30 Fall (Acute) W19.XXXA COPD (chronic obstructive pulmonary disease) (Chronic) J44.9 Neuropathic pain (Chronic) Allergic rhinitis (Chronic) J30.9 Asthma (Chronic) J45.909 Community acquired pneumonia (Acute) J18.9 Rhabdomyolysis (Acute) M62.82 Acute kidney injury (Acute) N17.9 Mild asthma (Chronic) J45.998 Osteoarthritis (Chronic) M19.90 Hyperlipidemia (Chronic) E78.5 Hypertension (Chronic) I10 Type 2 diabetes mellitus (Chronic) E11.9 Abnormal echocardiogram R93.1 Cardiomegaly I51.7 GERD (gastroesophageal reflux disease) K21.9 Hypertriglyceridemia E78.1 Hypoxia R09.02 ELDER (obstructive sleep apnea) G47.33 Tobacco use Z72.0 Vitamin D deficiency E55.9 Allergies lisinopril Adverse Reaction (Verified 02/26/18 11:13) Other metronidazole Adverse Reaction (Verified 02/26/18 11:13) Other Home Medications: Ambulatory Orders Medication Instructions Recorded Atorvastatin Calcium [Lipitor] 80 mg PO QHS 01/18/17 Cyanocobalamin [Vitamin B12] 1,000 mcg PO DAILY@0800 01/18/17 Estropipate [Ogen (G)] 0.75 mg PO DAILY 01/18/17 Lisinopril [Prinivil] 10 mg PO DAILY 01/18/17 Triamterene 37.5MG/Hctz 25MG 1 cap PO DAILY 01/18/17 [Dyazide (G)] Verapamil HCl [Verapamil ER] 240 mg PO DAILY 01/18/17 gabapentin 300 mg capsule 600 mg PO TID cap 08/23/17 metformin 1,000 mg tablet 1,000 mg PO BIDCM tab 08/23/17 multivitamin tablet 1 tab PO DAILY 08/23/17 Glimepiride [Amaryl] 4 mg PO BID 09/18/17 Hydrocodone/Acetaminophen [Spencer 1 each PO BID 09/18/17 5-325 Tablet] Loratadine 10 mg PO DAILY 09/18/17 Ascorbic Acid [Vitamin C] 1,000 mg PO QHS 02/04/18 Ibuprofen [Motrin] 800 mg PO TID PRN PRN 02/04/18 Lidocaine [Lidoderm Patch] 1 patch TRANSDERM. DAILY 02/04/18 Methenamine Hippurate 1 tab PO QHS 02/04/18 Novolin N 35 - 40 units SQ DINNER 02/04/18 Omeprazole [Omeprazole] 20 mg PO DAILY 02/04/18 Victoza 1.2 units SQ BREAKFAST 02/04/18 Surgical History: Surgical History (Last Reviewed 11/22/17 @ 13:19 by Sherie Alves) H/O adenoidectomy Z90.89 History of appendectomy Z90.49 History of carpal tunnel release Z98.890 History of hysterectomy Z90.710 History of tonsillectomy Z90.89 Surgical History: appendectomy, coronary bypass surgery - X 5., hysterectomy, tonsillectomy, - - Bilateral tubal ligation. Psychiatric History: No pertinent psych hx HEALTH AND SAFETY COORDINATOR History: No pertinent HEALTH AND SAFETY COORDINATOR history Lives: Care Home Smoking Status: Former smoker Tobacco Use: Non-smoker Alcohol: None Drugs: None - *Family History Maternal Family History: Family History (Last Reviewed 11/22/17 @ 13:19 by Sherie Alves) Mother Colon cancer History Items: Diabetes, Pulmonary Disease Paternal Family History: Family History (Last Reviewed 11/22/17 @ 13:19 by Sherie Alves) Mother Colon cancer History Items: - - Patient notes father with possible history of Crohn's disease. Sibling Family History: Family History (Last Reviewed 11/22/17 @ 13:19 by Sherie Alves) Mother Colon cancer History Items: Diabetes, Heart Disease, - - ELDER Review of Systems Constitutional: Reports: Weakness. Denies: Anorexia, Chills, Fever, Weight Change Eyes: Denies: Blurred vision, Cataracts, Conjunctivae Inflammation, Double vision, Pain, Redness HEENT: Denies: Difficulty Hearing, Difficulty Swallowing, Head Aches, Hearing Changes, Sinus Congestion, Sinus Drainage, Sore Throat Cardiovascular: Reports: Edema. Denies: Chest Pain, Claudication, Orthopnea, Palpitations Respiratory: Denies: Cough, Shortness of breath at rest, Sputum production Gastrointestinal: Denies: Abdominal Pain, Constipation, Hematemesis, Nausea, Vomiting Genitourinary: Denies: Dysuria, Frequency Gynecological: Denies: Breast symptoms, Excessively long or heavy periods Musculoskeletal: Denies: Joint Pain, Joint Tenderness Skin: Denies: Rash, Wounds Neurological: Denies: Numbness, Tingling, Focal weakness Psychiatric: Denies: Anxiety, Depression, Homicidal Ideations, Suicidal Ideations Hematologic/ Lymphatic: Denies: Easy Bruising, Easy Bleeding VTE Information - Inpt Only VTE Present on Admission: No VTE Pharm Prophylaxis ordered?: Yes - Physical Exam General: Alert, Oriented x3, Cooperative, No apparent distress HEENT: Atraumatic, PERRLA, EOMI, Normocephalic Oral: Moist Mucosa Neck: Supple Lungs: Clear to auscultation, Normal air movement Cardiovascular: Regular rate, Regular Rhythm, Normal S1, Normal S2, No murmurs Abdomen: Bowel Sounds Present, Soft, Non Tender, Non-Distended, No Hepato-splenomegaly Extremities: Edema - Bilateral leg edema +3, open wounds on both with dressing, ecchymoses, no purulent discharge. LUE edema Skin: No rashes, No breakdown Musculoskeletal: No Tenderness to Palpation of Joints or Extremities Neurological: Cranial nerves II-XII grossly intact Psych/Mental Status: Normal Affect, Appropriate Vital Signs Temp Pulse Resp BP Pulse Ox 99.9 F H 94 26 H 142/46 H 93 03/03/18 18:29 03/03/18 18:29 03/03/18 18:29 03/03/18 18:29 03/03/18 18:29 Oxygen Flow Rate (L/min) 3 Oxygen Delivery Method Nasal Cannula Weight: 75 kg Body Mass Index (BMI) 29.2 Assessment/Plan All Active Problems (Last Reviewed 11/22/17 @ 13:19 by Sherie Alves) Osteomyelitis of left foot (Acute) Pain in right toe(s) (Acute) Cellulitis of right foot (Acute) Abscess of toe of right foot (Acute) Type 2 diabetes mellitus (Acute) Infectious arthritis (Acute) Hypoxia (Acute) Suspected sleep apnea (Acute) Fall (Acute) Community acquired pneumonia (Acute) Rhabdomyolysis (Acute) Acute kidney injury (Acute) 67 year old F with past medical history of CAD status post CABG(3 vessel, done in [facility] after transfer from [facility] on February 15), left lower extremity cellulitis as well as right foot osteomyelitis. Patient was admitted to the TCU on 02/25/2018 for rehab. She is being managed with anemia, osteomyelitis of the left foot, left upper extremity DVT. She was brought to the ED with complaints of fever and hypoxia. 1. Fever, likely source is from bilateral leg cellulitis with left osteomyelitis, cultures taken by the ED, patient was on cefazolin, discussion of patient by the ED physician with ID, patient to be switched to cefepime Plan: Admit to [facility], monitor on telemetry, IV cefepime and vancomycin(since patient has been admitted in the hospital for almost a week), ID consult, wound consult 2. Left foot osteomyelitis, per records, bone cultures grew coagulase-negative staph aureus, aspergillosis, will continue IV antibiotics, 3. CAD status post three-vessel CABG, continue post CABG precautions and medications 4. Postoperative anemia, status post multiple blood transfusions, hemoglobin is stable at 8.5 5. Left upper extremity DVT, on Coumadin, INR is 1.5, will put on therapeutic Lovenox until INR is therapeutic, continue Coumadin 6. Type 2 DM, will continue home regimen, Accu-Cheks with insulin sliding scale 7. DVT prophylaxis - on coumadin/therapeutic lovenox. Code Visit Inpatient E&M: 15010 Init Hosp L3
[2018-03-03 19:21] LABS: Bedside Glucose 145 mg/dL (70-110)
[2018-03-03] MEDS: Acetaminophen 325 MG Tablet 650 MG PO (19:40)
--- NOTE | 2018-03-03 20:37 | PCM.RX.CS ---
Consult Pharmacy has been consulted to manage selected antiobiotic: Vancomycin Type of Consult: New start Suspected Infection: Osteomyelitis Prior Doses of Antibiotics Received/Current Regimen: Medications Vancomycin HCl 500 mg in 100 mls @ 100 mls/hr IV Q12H CAILIN Vancomycin HCl 1,250 mg/ (Sodium Chloride) 275 mls @ 183.333 mls/hr IV X1 ONE Stop: 03/03/18 21:29 Last Admin: 03/03/18 20:22 Dose: 183.333 mls/hr Labs: Sodium 133 mmol/L (136-145) L 03/03/18 15:07 Potassium 3.4 mmol/L (3.5-5.1) L 03/03/18 15:07 Chloride 95 mmol/L (98-107) L 03/03/18 15:07 Carbon Dioxide 31.0 mmol/L (21.0-32.0) 03/03/18 15:07 Anion Gap 7 (5-15) 03/03/18 15:07 BUN 12 mg/dL (7-18) 03/03/18 15:07 Creatinine 0.57 mg/dL (0.55-1.02) 03/03/18 15:07 Est GFR (MDRD) Af Amer 136 mL/min (>60) 03/03/18 15:07 Est GFR (MDRD) Non-Af 112 mL/min (>60) 03/03/18 15:07 BUN/Creatinine Ratio 21.1 RATIO (10-20) H 03/03/18 15:07 Glucose 149 mg/dL (74-106) H 03/03/18 15:07 Weight used for dosin kg Estimated Creatinine Clearance: 44 Goal Trough: 15-20 mcg/mL Pharmacy Plan for Drug Dosing: Pharmacy Service will continue to monitor and adjust dosing as required. Follow-Up Labs: Trough Vancomycin Labs to be done on [date and time ordered]: 03/05/18 @0516
[2018-03-03] MEDS: Glucerna Shake 120 ML LIQUID PO (21:28)
[2018-03-03 21:30] LABS: Bedside Glucose 140 mg/dL (70-110)
[2018-03-03] MEDS: Enoxaparin 80 MG/0.8 ML Syringe 70 MG SC (21:30)
[2018-03-04] VITALS (13 sets, daily range): BP systolic 137–159; BP diastolic 59–99; PULSE 83–102; RESP 18–24; TEMP 36.6–37.7; O2SAT 95–99
[2018-03-04] MEDS: 0.9% NaCl PICC Flush 10 ML IV (06:52)
[2018-03-04 07:09] LABS: Absolute Lymphocyte Count 0.52 X10^3/ul (0.83-4.51); Absolute Neutrophil Count 8.1 X10^3/uL (2.0-7.7); Differential Indicated SCAN CRITERIA MET; Hematocrit 29.7 % (37-47); Hemoglobin 8.9 g/dl (12.0-15.0); Lymphocyte # 0.52 X10^3/ul (4.0); Lymphocyte % 5.3 % (19-41); Mean Corpuscular Hgb 26.3 pg (27.0-32.0); Mean Corpuscular Volume 87.9 fL (81-99); Monocyte# 1.11 X10^3/uL; Monocyte% 11.4 % (0-10); Neutrophil # 8.12 X10^3/uL (2.7-7.7); Neutrophil % 83.2 % (47-70); POSITIVE COUNT NO; POSITIVE DIFFERENTIAL YES; POSITIVE MORPHOLOGY NO; Platelet Count 245 K/mm3 (150-450); RBC Distribution Width CV 18.1 % (11.6-14.6); RBC Distribution Width SD 57.8 fl (35.1-43.9); Red Blood Count 3.38 M/mm3 (4.2-5.4); White Blood Count 9.8 K/mm3 (4.4-11.0)
[2018-03-04 07:30] LABS: Anion Gap 9 (5-15); BUN 12 mg/dL (7-18); BUN/Creat Ratio 26.5 RATIO (10-20); Calcium,Total 8.3 mg/dL (8.5-10.1); Chloride 99 mmol/L (98-107); Creatinine, Serum 0.45 mg/dL (0.55-1.02); EST Glomerular Filtration Rate 146 mL/min (>60); Est Glom Filt Rate - Afr Amer 177 mL/min (>60); Estimated Creatinine Clearance 44.54 ml/min; Glucose 196 mg/dL (74-106); Potassium 3.7 mmol/L (3.5-5.1); Sodium Level 139 mmol/L (136-145)
[2018-03-04 09:12] LABS: International Normalized Ratio 1.4; Prothrombin Time (Protime)PT. 17.6 SECONDS (11.7-14.9)
--- NOTE | 2018-03-04 09:20 | NURSING ---
LATE ENTRY - 2156 - CAUSEY CATHETER DC'D PER ORDER
--- NOTE | 2018-03-04 09:29 | PCM.PN.HOSP ---
Subjective: Patient with no acute events overnight per self and per nursing report. Patient overnight had no further remarkable fevers. She states ongoing discomfort to bilateral lower extremities which has been similar to prior but otherwise denies any new complaints. Upon further discussion she does deny any worsened pain to the right lower extremity as there was concerns for etiology of her fever as the osteomyelitis. Upon evaluation of other recent issues there was notable ecchymoses and duskiness of the harvesting incisions to the left lower extremity in addition to a very ballotable fluctuant hematoma which has been there for several days per patient report on the anterior barboza lateral to the harvest incisions with patient admitted notable tenderness to palpation of the left lower extremity. Patient does have Conroy catheter in and she states that this has been ongoing secondary to the stage II coccyx ulcer and last change per review of Conroy on 26 February with patient being amenable to discontinuation. Patient denies chills, nausea, emesis, abdominal pain, chest pain or dyspnea. Objective: Physical Examination: General: awake, alert, oriented x 3 and cooperative, seated upright in bed in no apparent distress. Skin: Diffuse thorax and extremity ecchymoses various staged, right lower extremity with great toe wounds with no drainage with tenderness to palpation with chronic osteo-on IV antibiotic therapy, left lower extremity with dusky harvest incisions and lateral to these a very large ballotable fluctuant hematoma, extremely tender to palpation, no current drainage from these incisions, midline chest CABG incision fortunately well-appearing, coccyx with stage II-III ulceration, mild slough. Mildly dryo HEENT: AT/NC, EOMI, PERRLA, mildly dry MM. Lungs: Diminished BS BL, > bases, no rales, ronchi or wheezing. Heart: Regular rate and rhythm; no gallop, rub audible, CABG incision well appearing, SM. Abdomen: soft, NTTP, ND, normal BS, no HSM. Extremities: no cyanosis, clubbing, see skin. Neurological: patient awake, alert, oriented x 3; cognitive function intact; pupils equally reactive to light and accomodation; cranial nerves II-XII grossly normal, moving all 4 extremities except limited secondary to BL LE pain and debility, strength severely globally decreased secondary to recent acute interventions and acute presentation. Psychiatric: affect appears normal, no acute evidence of depressive or anxiety feelings. Vitals/I&O's: Vital Signs Temp Pulse Resp BP Pulse Ox 98.9 F 98 22 H 149/99 H 97 03/04/18 08:51 03/04/18 08:51 03/04/18 08:51 03/04/18 08:51 03/04/18 08:51 Oxygen Flow Rate (L/min) 3 Oxygen Delivery Method Nasal Cannula Weight: 165 lb 5.547 oz Body Mass Index (BMI) 29.2 Intake and Output for Last 24 Hours 03/02/18 03/03/18 03/04/18 23:59 23:59 23:59 Intake Total 784.4 / 784.4 Output Total 1200 / 1200 Balance -415.6 / -415.6 Laboratory Results 03/03/18 19:11: POC Glucose 145 H 03/03/18 21:27: POC Glucose 140 H 03/04/18 06:50: WBC 9.8, RBC 3.38 L, Hgb 8.9 L, Hct 29.7 L, MCV 87.9, MCH 26.3 L, MCHC 30.0 L, RDW 18.1 H, RDW Differential 57.8 H, Plt Count 245, MPV 8.0, Immature Gran % (Auto) 0.100, Neut % (Auto) 83.2 H, Lymph % (Auto) 5.3 L, [place] % (Auto) 11.4 H, Eos % (Auto) 0.0, Baso % (Auto) 0.0, Absolute Neuts (auto) 8.1 H, Absolute Lymphs (auto) 0.52 L, Total Counted Not Reportable, Differential Comment COMMENT 03/04/18 06:50: Sodium 139, Potassium 3.7, Chloride 99, Carbon Dioxide 31.0, Anion Gap 9, BUN 12, Creatinine 0.45 L, Estim Creat Clear Calc 44.54, Est GFR (MDRD) Af Amer 177, Est GFR (MDRD) Non-Af 146, BUN/Creatinine Ratio 26.5 H, Glucose 196 H, Calcium 8.3 L 03/04/18 08:25: PT 17.6 H, INR 1.4 Current Medications Acetaminophen (Tylenol) 650 mg PO Q6H PRN PRN PRN Reason: Mild Pain (1-3)/Temp > 100.7 F Last Admin: 03/03/18 19:40 Dose: 650 mg Albuterol/Ipratropium (Duoneb) 3 ml INHALATION Q4HWA.RT [facility] Last Admin: 03/04/18 06:35 Dose: Not Given Ascorbic Acid (Vitamin C) 500 mg PO BIDCM [facility] Aspirin (Ecotrin) 81 mg PO DAILY@0800 [facility] Bisacodyl (Dulcolax) 5 mg PO DAILY PRN PRN PRN Reason: Constipation Calamine/Phenol (Calmoseptine Ointment) 1 applic TOPICAL TID [facility] PRN Reason: Protocol Carvedilol (Coreg) 6.25 mg PO BID [facility] Clopidogrel Bisulfate (Plavix) 75 mg PO DAILY [facility] Cyanocobalamin (Vitamin B12) 1,000 mcg PO DAILY@0800 [facility] Dextrose (D50w Syringe) 0 gm IV X1 PRN; Protocol PRN Reason: Hypoglycemia Enoxaparin Sodium (Lovenox) 70 mg SC Q12 [facility] Last Admin: 03/03/18 21:30 Dose: 70 mg Folic Acid (Folic Acid) 1 mg PO DAILY@0800 [facility] Furosemide (Lasix) 40 mg PO DAILY [facility] Gabapentin (Neurontin) 600 mg PO TID [facility] Glucagon () 1 mg IM .X1 PRN PRN Reason: Hypoglycemia Vancomycin HCl () 500 mg in 100 mls @ 100 mls/hr IV Q12H [facility] Last Admin: 03/04/18 09:13 Dose: 100 mls/hr Cefepime HCl 2 gm/ Sodium (Chloride) 100 mls @ 200 mls/hr IV Q12 [facility] Insulin Detemir (Levemir (Bkc)) 20 units SC QHS [facility] Insulin Human Lispro (Humalog Kwikpen (Bkc)) 18 unit SC DAILY@1200 [facility] Insulin Human Lispro (Humalog Kwikpen (Bkc)) 0 unit SC ACHS [facility] PRN Reason: Protocol Insulin Human Lispro (Humalog Kwikpen (Bkc)) 18 unit SC DAILY@1700 [facility] Insulin Human Lispro (Humalog Kwikpen (Bkc)) 22 unit SC BREAKFAST [facility] Lidocaine (Lidoderm Patch) 1 patch TOPICAL DAILY [facility] PRN Reason: Protocol Lisinopril (Zestril) 5 mg PO DAILY [facility] Magnesium Hydroxide (Milk Of Magnesia) 30 ml PO DAILY PRN PRN PRN Reason: Constipation Melatonin (Melatonin) 3 mg PO QHS [facility] Non-Formulary Medication (Loratadine [Loratadine]) 10 mg PO DAILY [facility] Nutritional Formula (Lactose Free) (Glucerna Shake) 120 ml PO 4X/DAY [facility] Last Admin: 03/03/18 21:28 Dose: 120 ml Nystatin (Mycostatin Powder) 1 applic TOPICAL BID [facility] PRN Reason: Protocol Ondansetron HCl (Zofran) 4 mg IV Q8H PRN PRN PRN Reason: NAUSEA Oxycodone HCl (Oxyir) 5 mg PO Q6H PRN PRN PRN Reason: PAIN Pantoprazole Sodium (Protonix) 40 mg PO DAILY [facility] Polyethylene Glycol (Miralax) 17 gm PO DAILY [facility] Polysaccharide Iron Complex (Ferrex 150) 150 mg PO BID [facility] Psyllium Hydrophilic Mucilloid (Metamucil) 1 packet PO DAILY PRN PRN PRN Reason: CONSTIPATION Senna/Docusate Sodium (Senokot-S, Iqra-Colace) 2 tablet PO BID [facility] Sodium Chloride () 10 ml IV UD PRN PRN Reason: PICC FLUSH Last Admin: 03/04/18 06:52 Dose: 10 ml Voriconazole (Vfend) 200 mg PO Q12H [facility] Warfarin Sodium (Coumadin (Pbkc)) 3 mg PO DAILY [facility] Medical Necessity - Tobacco Use Smoking Status: Former smoker Tobacco Use: Non-smoker Assessment/Plan All Active Problems (Last Reviewed 11/22/17 @ 13:19 by Sherie Alves) Osteomyelitis of left foot (Acute) Pain in right toe(s) (Acute) Cellulitis of right foot (Acute) Abscess of toe of right foot (Acute) Type 2 diabetes mellitus (Acute) Infectious arthritis (Acute) Hypoxia (Acute) Suspected sleep apnea (Acute) Fall (Acute) Community acquired pneumonia (Acute) Rhabdomyolysis (Acute) Acute kidney injury (Acute) The patient is a 67 y/o F w/ PMHx: Obesity, Chronic COPD/Asthma, HTN, HLD, Allergic Rhinitis, ELDER, GERD, Tobacco use recently quit, Gouty Arthritis, Recent RLE Abscess s/p I+D, Noted TCU LLL ([facility] Osteo, suspect may be in error and RLE especially since grafts harvested LLE), Recent LUE DVT, Recent CAD s/p CABG [facility] 3-vessel 02/15/18 who presents to the [facility] ED from TCU on 03/03/18 w/ onset fever and mild hypoxia while in TCU. (1) Fever, Concern for Acute on Chronic Osteoarthritis, Noted LLE; however, RLE w/ recent I+D and abscess, maintained from [facility] on ancef and voriconazole, re-admitted to [facility] for concern for fever secondary to osteomyelitis, transitioned per ID recommendation to vanc, cefepime and voriconazole continued pending their evaluation; however several possible etiologies for fever while in TCU including LLE hematoma possibly infected, possible infected LLE harvest incisions, possible UTI w/ recently indwelling conroy secondary to stage II-III decubitous ulcer as well as onset loose stools. Dr. Ivory consulted for evaluation of the LLE as concern for harvest incisions and also assessment of possible infected hematoma. May need transfer to [facility] if concern for proximity to harvest incisions. Will await his evaluation, discontinue conroy catheter w/ pending UCx w/ mildly appearing UA, encourage OOB, wound RN evaluation, barrier cream and dressing changes to coccyx, BL LE dressing changes, PRN pain regimen, pending c-diff assay, PT, OT, CM for discharge planning. (2) CAD: Cardiac catheterization [facility] 02/06 w/ severe triple-vessel disease with distal left main disease and preserved ejection fraction of 55% w/ moderate mitral regurgitation, incision well appearing, maintain on aspirin, Plavix, Coreg, lisinopril. (3) Recent LUE DVT: Maintained on coumadin w/ lovenox bridge, obtain INR, site from LLE w/ no increased size of hematoma thus continue this regimen, hold if any concerns per Dr. Ivory. (4) Recent UTI, Noted on TCU Note: Unclear organism: As noted on BSA, d/c conroy, straight cath if needed w/ replacement conroy on if >/=3. (5) Recent Acute Anemia, Blood loss secondary to surgical intervention, Fe deficiency anemia: Admission Hgb 8.5, repeat 8.9, continue Fe supplementation. (6) Hypertension: Continue home regimen including lisinopril, Coreg, Lasix, PRN hydralazine. (7) Hyperlipidemia: Continue home statin regimen. (8) Diabetes mellitus type II w/ neuropathy: Hold oral home regimen, continue home insulin regimen, ADA diet, accu checks w/ ISS, continue home gabapentin regimen. (9) Chronic COPD/Asthma: ATC duonebs, PRN albuterol, HOB, IS parameters, continue home Singulair regimen. (10) Hx Tobacco Abuse: Encouraged continued cessation. (11) Obesity: Weight loss and lifestyle changes encouraged. (12) ELDER: CPAP nightly. (13) GERD: PPI. (14) DVT Prophylaxis: SCDs, lovenox therapeutic regimen and Coumadin bridge. (15) CODE status: Discussed CODE status at length including difference between FULL code, DNR-CCA and DNR-CC status. Following discussions about the differences in these status, requested Full Code. Advanced Care Planning Face to Face Time: 20 minutes. Code Visit Inpatient E&M: 94102 Subs Hosp L3 Procedures: 38155 Advncd Care Plan 30 Min
--- NOTE | 2018-03-04 09:43 | CASEMGMT ---
Addendum entered by Yusra Pierre 03/04/18 10:05: SW spoke w/Joanne in TCU, pt can return to TCU whenever she is ready. SW let pt know, SW let physician know as well. SW will continue to follow. RACHEL Boles, DEZ Original Note: Pt is here from TCU. SW called TCU and left a message. SW spoke w/pt in room in regard to plan. Pt would like to return to TCU at discharge. Pt was here, transferred to [facility], and came to TCU from [facility]. Pt has been there since 02/25/18. SW explained will make sure she is able to return to TCU when ready to leave the hospital. SW will continue to follow. RACHEL Boles, [employer]
[2018-03-04] MEDS: Loratadine 10 MG Tablet PO (10:26)
[2018-03-04] MEDS: Cyanocobalamin 500 MCG Tablet 1000 MCG PO (10:26)
[2018-03-04] MEDS: Aspirin E.C. 81 MG Tablet PO (10:26)
[2018-03-04] MEDS: Ascorbic Acid 500 MG Tablet PO ×2 (10:26→18:26)
[2018-03-04] MEDS: Folic Acid 1 MG Tablet PO (10:26)
[2018-03-04] MEDS: Carvedilol 6.25 MG Tablet PO ×2 (10:27→22:42)
[2018-03-04] MEDS: Furosemide 40 MG Tablet PO (10:27)
[2018-03-04] MEDS: Glucerna Shake 120 ML LIQUID PO ×4 (10:27→22:42)
[2018-03-04] MEDS: Lidocaine 5% Patch 1 PATCH TOPICAL (10:27)
[2018-03-04] MEDS: Iron Polysaccharide Complex 150 MG CAPSULE PO ×2 (10:27→22:42)
[2018-03-04] MEDS: Enoxaparin 80 MG/0.8 ML Syringe 70 MG SC ×2 (10:27→22:43)
[2018-03-04] MEDS: Voriconazole 200 MG Tablet PO ×2 (10:28→22:42)
[2018-03-04] MEDS: Clopidogrel Bisulfate 75 MG Tablet PO (10:28)
[2018-03-04] MEDS: Nystatin Powder 15gm Bottle 1 APPLIC TOPICAL ×2 (10:28→22:45)
[2018-03-04] MEDS: Pantoprazole Sodium 40 MG Tablet PO (10:28)
[2018-03-04] MEDS: Lisinopril 5 MG Tablet PO (10:29)
[2018-03-04] MEDS: Ipratropium/Albuterol Sulfate 3 ML AMPUL.NEB INHALATION ×2 (10:50→19:04)
[2018-03-04 11:20] LABS: Bedside Glucose 192 mg/dL (70-110)
[2018-03-04 12:10] LABS: Bedside Glucose 249 mg/dL (70-110)
[2018-03-04] MEDS: Gabapentin 600 MG Tablet PO ×2 (13:03→18:26)
[2018-03-04] MEDS: Insulin Lispro 100 UNIT/ML INSULN.PEN 18 UNIT SC ×2 (13:04→17:35)
[2018-03-04] MEDS: Insulin Lispro 100 UNIT/ML INSULN.PEN SC ×3 (13:04→22:44)
--- NOTE | 2018-03-04 13:48 | CON.PCM_ITS ---
Problem List (1) Osteomyelitis of left foot Status: Acute Qualifiers: Osteomyelitis type: unspecified type Qualified Code(s): M86.9 - Osteomyelitis, unspecified Reason for Consult: fever Consulted by: Dr. Hairston History of Present Illness: The patient is a 67 year old F with recent admission here and then transfer to [facility] for R foot osteo and CAD requiring CABG. Cxs here of foot were negative. Had surg debridement done there and reported cxs (+) for CoNS and aspergillus, so discharged on ancef and vori to TCU here. Had been doing ok, no issues with chest. R foot healing ok. Developed fever 101.5, hypoxia, and noticed swelling at LLE vein donor site. Transferred to ED and admitted on vanc, cefepime, and vori. Feeling better today. Denies cough or SOB. No abd pain or n/v/d. Full ROS performed and neg except as noted above. - Medical History Past Medical History (Chronic Problems): Chronic Problems (Last Reviewed 11/22/17 @ 13:19 by Sherie Alves) Coronary artery disease (Chronic) Diabetes mellitus (Chronic) Obesity (Chronic) Neuropathic pain (Chronic) Obesity (BMI 30.0-34.9) (Chronic) HERNANDEZ (dyspnea on exertion) (Chronic) ELDER (obstructive sleep apnea) (Chronic) COPD (chronic obstructive pulmonary disease) (Chronic) Neuropathic pain (Chronic) Allergic rhinitis (Chronic) Asthma (Chronic) Mild asthma (Chronic) Osteoarthritis (Chronic) Hyperlipidemia (Chronic) Hypertension (Chronic) Type 2 diabetes mellitus (Chronic) Allergies/Adverse Reactions: Allergies lisinopril Adverse Reaction (Verified 02/26/18 11:13) Other metronidazole Adverse Reaction (Verified 02/26/18 11:13) Other Home Medications: Ambulatory Orders Medication Instructions Recorded Cyanocobalamin [Vitamin B12] 1,000 mcg PO DAILY@0800 01/18/17 Lisinopril [Prinivil] 5 mg PO DAILY 01/18/17 gabapentin 300 mg capsule 600 mg PO TID cap 08/23/17 Glimepiride [Amaryl] 8 mg PO DAILY 09/18/17 Loratadine 10 mg PO DAILY 09/18/17 Lidocaine [Lidoderm Patch] 1 patch TRANSDERM. DAILY 02/04/18 Acetaminophen [Non-Aspirin Pain 1,000 mg PO Q8 03/04/18 Relief] Ascorbic Acid [Vitamin C] 500 mg PO BIDCM 03/04/18 Aspirin E.C. [Ecotrin] 81 mg PO DAILY@0800 03/04/18 Benzocaine/Menthol [Cepacol Sore 1 lozenge MM Q2H PRN PRN 03/04/18 Throat Lozenge] Bisacodyl [Dulcolax] 10 mg RECTAL DAILY PRN PRN 03/04/18 Carvedilol [Coreg] 6.25 mg PO BID 03/04/18 Cefazolin Sodium in 0.9 % NaCl 2 gm IV Q8 03/04/18 [Cefazolin 2 G/100 ml-0.9% NaCl] Clopidogrel Bisulfate [Plavix] 75 mg PO DAILY 03/04/18 Fluticasone/Salmeterol 1 each IH BID 03/04/18 [Fluticasone-Salmeterol 232-14] Folic Acid 1 mg PO DAILY@0800 03/04/18 Furosemide [Lasix] 40 mg PO DAILY 03/04/18 Glucagon [(None)] 1 mg IM X1 PRN 03/04/18 Insulin Detemir [Levemir (BKC)] 20 units SC QHS 03/04/18 Insulin Lispro [Humalog KwikPen] 18 unit SQ DAILY@1200 03/04/18 Insulin Lispro [Humalog KwikPen] 18 unit SQ DAILY@1700 03/04/18 Insulin Lispro [Humalog KwikPen] 22 unit SQ BREAKFAST 03/04/18 Ipratropium/Albuterol Sulfate 3 ml INHALATION TID 03/04/18 [Duoneb] Iron Polysaccharide Complex 150 mg PO BID 03/04/18 [Ferrex 150] Melatonin 3 mg PO QHS 03/04/18 Menthol/Lanolin/Calamine/Znox 1 applic TP TID 03/04/18 [Calmoseptine Ointment] Nystatin Powder [Mycostatin Powder] 1 applic TOPICAL BID 03/04/18 Oxycodone [Oxyir] 5 mg PO Q6H PRN PRN 03/04/18 Pantoprazole Sodium [Protonix] 40 mg PO DAILY 03/04/18 Polyethylene Glycol 3350 [Miralax] 17 gm PO DAILY 03/04/18 Senna/Docusate Sodium [Senokot-S, 2 tablet PO BID 03/04/18 Iqra-Colace] Voriconazole [Vfend] 200 mg PO Q12H 03/04/18 Warfarin [Coumadin (PBKC)] 3 mg PO DAILY 03/04/18 - Social History SMOKING STATUS:: Former smoker Vital Signs Temp Pulse Resp BP Pulse Ox 98.9 F 88 20 H 149/99 H 97 03/04/18 08:51 03/04/18 10:50 03/04/18 10:50 03/04/18 08:51 03/04/18 10:50 Oxygen Flow Rate (L/min) 3 Oxygen Delivery Method Nasal Cannula Weight: 75 kg Body Mass Index (BMI) 29.2 Microbiology Past 72 Hours 03/04/18 08:45 Enteric Bacteriology - Final Stool Laboratory Tests Past 24 Hrs 03/04/18 03/04/18 03/04/18 06:50 06:50 08:25 WBC 9.8 RBC 3.38 L Hgb 8.9 L Hct 29.7 L MCV 87.9 MCH 26.3 L MCHC 30.0 L RDW 18.1 H RDW Differential 57.8 H Plt Count 245 MPV 8.0 Immature Gran % (Auto) 0.100 Neut % (Auto) 83.2 H Lymph % (Auto) 5.3 L [place] % (Auto) 11.4 H Eos % (Auto) 0.0 Baso % (Auto) 0.0 Absolute Neuts (auto) 8.1 H Absolute Lymphs (auto) 0.52 L Total Counted Not Reportable Differential Comment COMMENT PT 17.6 H INR 1.4 Sodium 139 Potassium 3.7 Chloride 99 Carbon Dioxide 31.0 Anion Gap 9 BUN 12 Creatinine 0.45 L Estim Creat Clear Calc 44.54 Est GFR (MDRD) Af Amer 177 Est GFR (MDRD) Non-Af 146 BUN/Creatinine Ratio 26.5 H Glucose 196 H Calcium 8.3 L - Other Studies Radiology: []reviewed Other Studies: [] Route of nutrition/ use of supplements: [] Nutritional Intake: [] IV Site: [] Allen Catheter: [] - Physical Exam General: Alert, Oriented x3, Cooperative, No apparent distress HEENT: Atraumatic, PERRLA, EOMI Neck: Supple, No Nodes Lungs: Clear to auscultation, Normal air movement Cardiovascular: Regular rate, Regular Rhythm Abdomen: Bowel Sounds Present, Soft, Non Tender, Non-Distended Extremities: Peripheral Pulses Normal Skin: Ulcer/ Wound - R foot wound., - - L barboza with large bulla IV Site: PICC Musculoskeletal: No Tenderness to Palpation of Joints or Extremities Neurological: Cranial nerves II-XII grossly intact - Assessment/Plan Antibiotics: [] Assessment/Plan: [] Fever with hypoxia - recent surgery for R foot osteo, cxs from [facility] reportedly ( +) for CoNS and aspergillus, discharged to TCU on ancef/vori. Normal wbc. Feeling better. CXR relatively clear except for some effusions/atelectasis. L barboza with large bulla at vein donor site, Dr. Ivory consulted. Large hematoma could be source of fever as well as nidus of infection. May need debridement. Continue broad empiric coverage with vanc/cefepime/vori. Will follow, thank you.
[2018-03-04] MEDS: Menthol/Lanolin/Calamine/Znox 113 GM Tube 1 APPLIC TOPICAL ×2 (13:56→22:45)
--- NOTE | 2018-03-04 14:41 | CON.PCM_ITS ---
Reason for Consult Date of Consultation: 03/04/18 Reason for Consultation: Hematoma left anteromedial leg with skin necrosis and sacral pressure sore, unstageable, with skin necrosis. REFERRING PHYSICIAN: Dr. Nielson. TAPE FOLDING MACHINE OPERATOR: Dr. Ivory. History of Present Illness: The patient is a 67 year old F who was admitted from TCU because of fever and hypoxia. She had a CABG on 02/15/17 in [place]. She lives in [place] and was sent to TCU post discharge. She has recent history of right osteomyelitis and aspergillus and was sent to TCU on Ancef and Voriconazole. It was noted she had a hematoma left leg in the area of the vein harvesting with skin necrosis. She also has a sacral pressure sore that is unstageable at the present time with overlying skin necrosis. Infectious Diseases is involved and her antibiotics have been changed to Vancomycin, Cefepime, and Voriconazole. I was asked to evaluate this patient for surgical options for treatment. Past Medical History Past Medical History (Chronic Problems): Chronic Problems (Last Reviewed 11/22/17 @ 13:19 by Sherie Alves) Unstageable pressure ulcer of sacral region (Chronic) Coronary artery disease (Chronic) Obesity (Chronic) Neuropathic pain (Chronic) S/P CABG (coronary artery bypass graft) (Chronic) Recent CABG [facility] on 02/15/18, team contact SOUMYA Rhodes. Acute deep vein thrombosis (DVT) of left upper extremity (Chronic) Recent LUE DVT while [facility] s/p CABG. On therapeutic lovenox/coumadin bridge awaiting INR to be therapeutic. Foot osteomyelitis, right (Chronic) Recent R Foot Osteomyelitis, maintained on meropenem and voriconazole for planned addition 6 weeks of treatment per Dr. Palmer direction. Type 2 diabetes mellitus (Chronic) Obesity (BMI 30.0-34.9) (Chronic) HERNANDEZ (dyspnea on exertion) (Chronic) ELDER (obstructive sleep apnea) (Chronic) COPD (chronic obstructive pulmonary disease) (Chronic) Neuropathic pain (Chronic) Allergic rhinitis (Chronic) Asthma (Chronic) Mild asthma (Chronic) Osteoarthritis (Chronic) Hyperlipidemia (Chronic) Hypertension (Chronic) Type 2 diabetes mellitus (Chronic) Medical History: Medical History (Last Reviewed 11/22/17 @ 13:19 by Sherie Alves) Suspected sleep apnea (Acute) G47.30 Fall (Acute) W19.XXXA COPD (chronic obstructive pulmonary disease) (Chronic) J44.9 Neuropathic pain (Chronic) Allergic rhinitis (Chronic) J30.9 Asthma (Chronic) J45.909 Community acquired pneumonia (Acute) J18.9 Rhabdomyolysis (Acute) M62.82 Acute kidney injury (Acute) N17.9 Mild asthma (Chronic) J45.998 Osteoarthritis (Chronic) M19.90 Hyperlipidemia (Chronic) E78.5 Hypertension (Chronic) I10 Type 2 diabetes mellitus (Chronic) E11.9 Abnormal echocardiogram R93.1 Cardiomegaly I51.7 GERD (gastroesophageal reflux disease) K21.9 Hypertriglyceridemia E78.1 Hypoxia R09.02 ELDER (obstructive sleep apnea) G47.33 Tobacco use Z72.0 Vitamin D deficiency E55.9 Allergies lisinopril Adverse Reaction (Verified 02/26/18 11:13) Other metronidazole Adverse Reaction (Verified 02/26/18 11:13) Other Current Medications Acetaminophen (Tylenol) 650 mg PO Q6H PRN PRN PRN Reason: Mild Pain (1-3)/Temp > 100.7 F Last Admin: 03/03/18 19:40 Dose: 650 mg Albuterol/Ipratropium (Duoneb) 3 ml INHALATION Q4HWA.RT [facility] Last Admin: 03/04/18 10:50 Dose: 3 ml [facility]orbic [facility]amin C) [facility] Last Admin: 03/04/18 10:26 Dose: 500 mg Aspirin (Ecotrin) 81 mg PO DAILY@0800 [facility] Last Admin: 03/04/18 10:26 Dose: 81 mg Bisacodyl (Dulcolax) 5 mg PO DAILY PRN PRN PRN Reason: Constipation Calamine/Phenol (Calmoseptine Ointment) 1 applic TOPICAL TID [facility] PRN Reason: Protocol Last Admin: 03/04/18 13:56 Dose: 1 applicatio Carvedilol (Coreg) 6.25 mg PO BID [facility] Last Admin: 03/04/18 10:27 Dose: 6.25 mg Clopidogrel Bisulfate (Plavix) 75 mg PO DAILY [facility] Last Admin: 03/04/18 10:28 Dose: 75 mg Cyanocobalamin (Vitamin B12) 1,000 mcg PO DAILY@0800 [facility] Last Admin: 03/04/18 10:26 Dose: 1,000 mcg Dextrose (D50w Syringe) 0 gm IV X1 PRN; Protocol PRN Reason: Hypoglycemia Enoxaparin Sodium (Lovenox) 70 mg SC Q12 [facility] Last Admin: 03/04/18 10:27 Dose: 70 mg Folic Acid (Folic Acid) 1 mg PO DAILY@0800 [facility] Last Admin: 03/04/18 10:26 Dose: 1 mg Furosemide (Lasix) 40 mg PO DAILY [facility] Last Admin: 03/04/18 10:27 Dose: 40 mg Gabapentin (Neurontin) 600 mg PO TIDCM [facility] Last Admin: 03/04/18 13:03 Dose: 600 mg Glucagon () 1 mg IM .X1 PRN PRN Reason: Hypoglycemia Vancomycin HCl () 500 mg in 100 mls @ 100 mls/hr IV Q12H [facility] Last Admin: 03/04/18 09:13 Dose: 100 mls/hr Cefepime HCl 2 gm/ Sodium (Chloride) 100 mls @ 200 mls/hr IV Q24 [facility] Last Admin: 03/04/18 10:48 Dose: 200 mls/hr Insulin Detemir (Levemir (Bkc)) 20 units SC QHS [facility] Insulin Human Lispro (Humalog Kwikpen (Bkc)) 18 unit SC DAILY@1200 [facility] Last Admin: 03/04/18 13:04 Dose: 18 units Insulin Human Lispro (Humalog Kwikpen (Bkc)) 0 unit SC ACHS [facility] PRN Reason: Protocol Last Admin: 03/04/18 13:04 Dose: 4 units Insulin Human Lispro (Humalog Kwikpen (Bkc)) 18 unit SC DAILY@1700 [facility] Insulin Human Lispro (Humalog Kwikpen (Bkc)) 22 unit SC BREAKFAST [facility] Lidocaine (Lidoderm Patch) 1 patch TOPICAL DAILY [facility] PRN Reason: Protocol Last Admin: 03/04/18 10:27 Dose: 1 patch Lisinopril (Zestril) 5 mg PO DAILY [facility] Last Admin: 03/04/18 10:29 Dose: 5 mg Loratadine (Claritin) 10 mg PO DAILY [facility] Last Admin: 03/04/18 10:26 Dose: 10 mg Magnesium Hydroxide (Milk Of Magnesia) 30 ml PO DAILY PRN PRN PRN Reason: Constipation Melatonin (Melatonin) 3 mg PO QHS [facility] Nutritional Formula (Lactose Free) (Glucerna Shake) 120 ml PO 4X/DAY [facility] Last Admin: 03/04/18 13:56 Dose: 120 ml Nystatin (Mycostatin Powder) 1 applic TOPICAL BID [facility] PRN Reason: Protocol Last Admin: 03/04/18 10:28 Dose: 1 applicatio Ondansetron HCl (Zofran) 4 mg IV Q8H PRN PRN PRN Reason: NAUSEA Oxycodone HCl (Oxyir) 5 mg PO Q6H PRN PRN PRN Reason: PAIN Pantoprazole Sodium (Protonix) 40 mg PO DAILY [facility] Last Admin: 03/04/18 10:28 Dose: 40 mg Polysaccharide Iron Complex (Ferrex 150) 150 mg PO BID [facility] Last Admin: 03/04/18 10:27 Dose: 150 mg Psyllium Hydrophilic Mucilloid (Metamucil) 1 packet PO DAILY PRN PRN PRN Reason: CONSTIPATION Senna/Docusate Sodium (Senokot-S, Iqra-Colace) 2 tablet PO BID [facility] Last Admin: 03/04/18 10:18 Dose: Not Given Sodium Chloride () 10 ml IV UD PRN PRN Reason: PICC FLUSH Last Admin: 03/04/18 06:52 Dose: 10 ml Voriconazole (Vfend) 200 mg PO Q12 [facility] Last Admin: 03/04/18 10:28 Dose: 200 mg Warfarin Sodium (Coumadin (Pbkc)) 3 mg PO DAILY@1700 [facility] Home Medications: Ambulatory Orders Medication Instructions Recorded Cyanocobalamin [Vitamin B12] 1,000 mcg PO DAILY@0800 01/18/17 Lisinopril [Prinivil] 5 mg PO DAILY 01/18/17 gabapentin 300 mg capsule 600 mg PO TID cap 08/23/17 Glimepiride [Amaryl] 8 mg PO DAILY 09/18/17 Loratadine 10 mg PO DAILY 09/18/17 Lidocaine [Lidoderm Patch] 1 patch TRANSDERM. DAILY 02/04/18 Ascorbic Acid [Vitamin C] 500 mg PO BIDCM 03/04/18 Aspirin E.C. [Ecotrin] 81 mg PO DAILY@0800 03/04/18 Carvedilol [Coreg] 6.25 mg PO BID 03/04/18 Clopidogrel Bisulfate [Plavix] 75 mg PO DAILY 03/04/18 Fluticasone/Salmeterol 1 each IH BID 03/04/18 [Fluticasone-Salmeterol 232-14] Folic Acid 1 mg PO DAILY@0800 03/04/18 Furosemide [Lasix] 40 mg PO DAILY 03/04/18 Insulin Detemir [Levemir FlexPen] 20 units SC QHS 03/04/18 Insulin Lispro [Humalog KwikPen] 18 unit SQ DAILY@1200 03/04/18 Insulin Lispro [Humalog KwikPen] 18 unit SQ DAILY@1700 03/04/18 Insulin Lispro [Humalog KwikPen] 22 unit SQ BREAKFAST 03/04/18 Ipratropium/Albuterol Sulfate 3 ml INHALATION TID 03/04/18 [Duoneb] Iron Polysaccharide Complex 150 mg PO BID 03/04/18 [Ferrex 150] Melatonin 3 mg PO QHS 03/04/18 Menthol/Lanolin/Calamine/Znox 1 applic TP TID 03/04/18 [Calmoseptine Ointment] Nystatin Powder [Mycostatin Powder] 1 applic TOPICAL BID 03/04/18 Oxycodone [Oxyir] 5 mg PO Q6H PRN PRN 03/04/18 Pantoprazole Sodium [Protonix] 40 mg PO DAILY 03/04/18 Voriconazole [Vfend] 200 mg PO Q12H 03/04/18 Warfarin [Coumadin] 3 mg PO DAILY 03/04/18 montelukast 10 mg tablet 10 mg PO QPM #30 tab 03/07/18 Acetaminophen [Tylenol Tablet] 650 mg PO Q4H PRN PRN tablet 03/08/18 Enoxaparin [Lovenox] 70 mg SC Q12 syringe 03/08/18 Glucerna Shake 120 ml PO 4X/DAY liquid 03/08/18 Insulin Lispro [Humalog KwikPen] See Protocol SC ACHS insuln.pen 03/08/18 Meropenem [Merrem] 500 mg IV Q6 vial 03/08/18 Nutritional Supplement [Radames - 1 packet PO BIDCM packet 03/08/18 [place]ANGE FLAVOR] Surgical History: Surgical History (Last Reviewed 11/22/17 @ 13:19 by Sherie Alves) H/O adenoidectomy Z90.89 History of appendectomy Z90.49 History of carpal tunnel release Z98.890 History of hysterectomy Z90.710 History of tonsillectomy Z90.89 Surgical History: appendectomy, coronary bypass surgery - X 5., hysterectomy, tonsillectomy, - - Bilateral tubal ligation. Psychiatric History: No pertinent psych hx [employer] WORK[employer] GENER[employer] History: No pertinent [employer] WORK[employer] GENER[employer] history Lives: Jail Smoking Status: Former smoker Tobacco Use: Non-smoker Alcohol: None Drugs: None - *Family History Maternal Family History: Family History (Last Reviewed 11/22/17 @ 13:19 by Sherie Alves) Mother Colon cancer History Items: Diabetes, Pulmonary Disease Paternal Family History: Family History (Last Reviewed 11/22/17 @ 13:19 by Sherie Alves) Mother Colon cancer History Items: - - Patient notes father with possible history of Crohn's disease. Sibling Family History: Family History (Last Reviewed 11/22/17 @ 13:19 by Sherie Alves) Mother Colon cancer History Items: Diabetes, Heart Disease, - - ELDER Review of Systems Comment: Eyes: Denies: Blurred vision, Cataracts, Conjunctivae Inflammation, Double vision, Pain, Redness. HEENT: Denies: Difficulty Hearing, Difficulty Swallowing, Head Aches, Hearing Changes, Sinus Congestion, Sinus Drainage, Sore Throat. Cardiovascular: Reports: Edema. Denies: Chest Pain, Claudication, Orthopnea, Palpitations. Respiratory: Denies: Cough, Shortness of breath at rest, Sputum production. Gastrointestinal: Denies: Abdominal Pain, Constipation , Hematemesis, Nausea, Vomiting. Genitourinary: Denies: Dysuria, Frequency. Gynecological: Denies: Breast symptoms, Excessively long or heavy periods. Musculoskeletal: Denies: Joint Pain, Joint Tenderness. Skin: has hematoma left anterolateral leg with skin necrosis and sacral pressure sore, unstageable, with skin necrosis. Neurological: Denies: Numbness, Tingling, Focal weakness. Psychiatric: Denies: Anxiety, Depression, Homicidal Ideations, Suicidal Ideations. Hematologic/ Lymphatic: Denies: Easy Bruising, Easy Bleeding - Physical Exam General: awake, alert, oriented x 3. Skin: Large hematoma left anteromedial leg with skin necrosis. Involves the recent incision to harvest vein grafts for a CABG. Tender to palpation. No purulent drainage seen. Mild redness seen. Hematoma measures 10 x 6 cm. There is some compromised skin flaps in the area of the incision from the vein harvest. Some skin necrosis seen. On the sacral area is a pressure sore that is unstageable at present. Centrally there is some nonviable tissue and skin necrosis. The periwound area shows some erythema. Measures 9 x 5 cm. No purulent drainage noted. HEENT: EOMI, PERRLA. Throat is clear. Lungs: Diminished breath sounds at the bases. Heart: Regular rate and rhythm. Abdomen: soft, nondistended. Extremities: no cyanosis, clubbing. Mild edema in lower extremities. Has wound dorsum right foot where bone biopsy showed osteomyelitis. Neurological: cranial nerves II-XII grossly intact. Psychiatric: affect appears normal, no acute evidence of depressive or anxiety feelings. Vital Signs Temp Pulse Resp BP Pulse Ox 99.9 F H 102 H 18 159/59 H 95 03/04/18 13:54 03/04/18 13:54 03/04/18 13:54 03/04/18 13:54 03/04/18 13:54 Oxygen Flow Rate (L/min) 3 Oxygen Delivery Method Nasal Cannula Weight: 165 lb 5.547 oz Body Mass Index (BMI) 29.2 Intake and Output for Last 24 Hours 03/02/18 03/03/18 03/04/18 23:59 23:59 23:59 Intake Total 1488.4 / 1488.4 Output Total 1300 / 1300 Balance 188.4 / 188.4 Microbiology Past 72 Hours 03/04/18 08:45 Enteric Bacteriology - Final Stool Laboratory Tests Past 24 Hrs 03/04/18 03/04/18 03/04/18 06:50 06:50 08:25 WBC 9.8 RBC 3.38 L Hgb 8.9 L Hct 29.7 L MCV 87.9 MCH 26.3 L MCHC 30.0 L RDW 18.1 H RDW Differential 57.8 H Plt Count 245 MPV 8.0 Immature Gran % (Auto) 0.100 Neut % (Auto) 83.2 H Lymph % (Auto) 5.[address] [place] % (Auto) 11.4 H Eos % (Auto) 0.0 Baso % (Auto) 0.0 Absolute Neuts (auto) 8.1 H Absolute Lymphs (auto) 0.52 L Total Counted Not Reportable Differential Comment COMMENT PT 17.6 H INR 1.4 Sodium 139 Potassium 3.7 Chloride 99 Carbon Dioxide 31.0 Anion Gap 9 BUN 12 Creatinine 0.45 L Estim Creat Clear Calc 44.54 Est GFR (MDRD) Af Amer 177 Est GFR (MDRD) Non-Af 146 BUN/Creatinine Ratio 26.5 H Glucose 196 H Calcium 8.3 L POC Glucose 03/04/18 03/04/18 03/03/18 11:47 06:40 21:27 POC Glucose 249 H 192 H 140 H 03/03/18 19:11 POC Glucose 145 H Assessment/Plan All Active Problems (Last Reviewed 11/22/17 @ 13:19 by Sherie Alves) Traumatic hematoma of left thigh (Acute) Traumatic hematoma of left lower leg (Acute) Skin necrosis (Acute) Osteomyelitis of left foot (Acute) Acute anemia (Acute) Decubitus ulcer (Acute) Hematoma (Acute) Pain in right toe(s) (Acute) Cellulitis of right foot (Acute) Abscess of toe of right foot (Acute) Infectious arthritis (Acute) Hypoxia (Acute) Suspected sleep apnea (Acute) Fall (Acute) Community acquired pneumonia (Acute) Rhabdomyolysis (Acute) Acute kidney injury (Acute) 1. Hematoma left anteromedial leg with skin necrosis. 2. Sacral pressure sore, Unstageable, with skin necrosis. 3. Recent CABG. 4. Diabetes mellitus. 5. Former smoker. Continue antibiotics with Vancomycin, Cefepime, and Voriconazole. Recommend operative intervention with incision and drainage and excisional debridement of the hematoma and skin necrosis. Will leave the wound open and proceed with wound care with the [facility]. Will send tissue to Pathology for analysis and to Microbiology for culture. If there is a plateau in the healing process, can proceed with delayed closure with skin grafting. Am also concerned about the sacral pressure sore with overlying skin necrosis. It is unstageable at present but I suspect it may involve the underlying muscle. Hopefully not the bone. If bone is involved, a partial ostectomy would be done to evaluate for osteomyelitis. I suspect a Stage IV pressure sore. Tissue that is removed will be sent to Pathology for analysis to rule out carcinoma and to Microbiology for culture. A positive culture may necessitate antibiotic modification. Postop wound care will be with the VAC. Since she is ambulatory, this pressure sore should heal with wound care and antibiotics and nutrition without the need for flap closure in the future. After discharge, can followup at the [facility]ound Center. Anticipate increased metabolic demands from the wounds and the infection. Will check a Prealbumin and encourage nutritional supplementation with protein to help the healing process. Urgent operative intervention is necessary because of the concerns of the recent CABG. Patient is diabetic and is on Coumadin. She is at increased risk for developing wound healing problems in her sternal wound and a sternal wound infection. If so debridement and muscle flap reconstruction may be necessary. That complex surgery would need to be done at a tertiary center ([facility] where the CABG was done). Should alert the Cardiac Surgery team in [place] about the need to proceed with these debridements of the left leg and sacral area. They may want this patient transferred for closer followup of her sternal wound after these debridements. I will plan on the surgery tomorrow. Right now the sternal incision is dry and intact without evidence of any problems at this time. Patient was informed of the risks and complications of the procedure including alternatives to surgery. These were discussed with the patient personally. Patient voices understanding and wishes to proceed. Code Visit Inpatient E&M: 75548 Init Hosp L2 - ICD-10 - S80.12xA, I96, L89.150, Z95.1, E11.9, Z87.891
[2018-03-04] MEDS: Acetaminophen 325 MG Tablet 650 MG PO ×2 (16:37→22:43)
[2018-03-04 16:45] LABS: Bedside Glucose 192 mg/dL (70-110)
[2018-03-04] MEDS: MELATONIN 3 MG TABLET PO (22:42)
[2018-03-04 23:15] LABS: Bedside Glucose 154 mg/dL (70-110)
[2018-03-05] VITALS (18 sets, daily range): BP systolic 122–155; BP diastolic 53–90; PULSE 77–102; RESP 16–20; TEMP 36.3–37.3; O2SAT 95–100; BMI 29.2; BMI 29.5
[2018-03-05] MEDS: oxyCODONE 5 MG Tablet PO ×3 (01:56→23:21)
[2018-03-05 05:49] LABS: International Normalized Ratio 1.4
[2018-03-05 05:54] LABS: Anion Gap 6 (5-15); BUN 10 mg/dL (7-18); BUN/Creat Ratio 28.7 RATIO (10-20); Calcium,Total 8.1 mg/dL (8.5-10.1); Chloride 101 mmol/L (98-107); Creatinine, Serum 0.35 mg/dL (0.55-1.02); EST Glomerular Filtration Rate 197 mL/min (>60); Est Glom Filt Rate - Afr Amer 239 mL/min (>60); Estimated Creatinine Clearance 44.54 ml/min; Glucose 114 mg/dL (74-106); Potassium 3.2 mmol/L (3.5-5.1); Sodium Level 142 mmol/L (136-145)
[2018-03-05] MEDS: Acetaminophen 325 MG Tablet 650 MG PO ×2 (06:10→21:46)
[2018-03-05] MEDS: Menthol/Lanolin/Calamine/Znox 113 GM Tube 1 APPLIC TOPICAL ×3 (06:10→21:41)
[2018-03-05 06:23] LABS: Absolute Lymphocyte Count 0.48 X10^3/ul (0.83-4.51); Basophil# 0.01 X10^3/uL; Basophil% 0.1 % (0-1); Eosinophil# 0.04 X10^3/uL; Eosinophils% 0.5 % (0-5); Hematocrit 29.8 % (37-47); Lymphocyte # 0.48 X10^3/ul (4.0); Lymphocyte % 5.6 % (19-41); Mean Corp Hgb Conc 30.2 g/gl (32-36); Mean Corpuscular Volume 89.5 fL (81-99); Mean Platelet Vol. 8.4 fl (6.2-12.0); Monocyte% 12.8 % (0-10); Neutrophil # 6.98 X10^3/uL (2.7-7.7); Neutrophil % 80.9 % (47-70); Platelet Count 314 K/mm3 (150-450); RBC Distribution Width CV 17.6 % (11.6-14.6); RBC Distribution Width SD 54.5 fl (35.1-43.9); Red Blood Count 3.33 M/mm3 (4.2-5.4); White Blood Count 8.6 K/mm3 (4.4-11.0)
[2018-03-05 06:31] LABS: Differential Indicated SCAN CRITERIA MET; POSITIVE COUNT NO; POSITIVE DIFFERENTIAL YES; POSITIVE MORPHOLOGY NO
[2018-03-05] MEDS: Ipratropium/Albuterol Sulfate 3 ML AMPUL.NEB INHALATION ×2 (06:41→19:07)
--- NOTE | 2018-03-05 07:27 | PCM.PN.HOSP ---
Subjective: Patient overnight with no acute events per self or nursing report aside from difficulty sleeping and continued small loose, soft stools with negative C. difficile assay performed. Patient remains amenable to surgical intervention of the left lower extremity hematoma in addition to the decubitus coccyx ulcer per Dr. Ivory this morning. She notes that her bilateral lower extremity discomfort is constant stable. 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 Patient denies fevers, chills, nausea, emesis, abdominal pain, chest pain or dyspnea. Objective: Physical Examination: General: awake, alert, oriented x 3 and cooperative, seated upright in bed in no apparent distress. Skin: Diffuse thorax and extremity ecchymoses various staged, right lower extremity w/ dressing place (great toe wounds with no drainage), left lower extremity w/ dressing in place (dusky harvest incisions and lateral large ballotable fluctuant hematoma, tender to palpation), midline chest CABG incision well-appearing, coccyx with stage II-III ulceration, mild slough. HEENT: AT/NC, EOMI, PERRLA, MMM. Lungs: Diminished BS BL, > bases, no rales, ronchi or wheezing. Heart: Regular rate and rhythm; no gallop, rub audible, CABG incision well appearing, SM. Abdomen: soft, NTTP, ND, normal BS, no HSM. Extremities: no cyanosis, clubbing, see skin. Neurological: patient awake, alert, oriented x 3; cognitive function intact; pupils equally reactive to light and accomodation; cranial nerves II-XII grossly normal, moving all 4 extremities except limited secondary to BL LE pain and debility, strength severely globally decreased. Psychiatric: affect appears normal, no acute evidence of depressive or anxiety feelings. Vitals/I&O's: Vital Signs Temp Pulse Resp BP Pulse Ox 99.1 F 102 H 20 H 149/90 H 95 03/05/18 02:06 03/05/18 02:06 03/05/18 02:06 03/05/18 02:06 03/05/18 02:06 Oxygen Flow Rate (L/min) 3 Oxygen Delivery Method Nasal Cannula Weight: 165 lb 5.547 oz Body Mass Index (BMI) 29.2 Intake and Output for Last 24 Hours 06/03/04/18 03/05/18 23:59 23:59 23:59 Intake Total 2251.4 / 2251.4 756 / 756 Output Total 1300 / 1300 Balance 951.4 / 951.4 756 / 756 Microbiology Past 72 Hours 03/04/18 16:36 Stool C. difficile DNA Amplification - Final 03/04/18 08:45 Stool Enteric Bacteriology - Final Laboratory Results 03/04/18 06:40: POC Glucose 192 H 03/04/18 06:50: Total Counted Not Reportable, Differential Comment COMMENT 03/04/18 06:50: Sodium 139, Potassium 3.7, Chloride 99, Carbon Dioxide 31.0, Anion Gap 9, BUN 12, Creatinine 0.45 L, Estim Creat Clear Calc 44.54, Est GFR (MDRD) Af Amer 177, Est GFR (MDRD) Non-Af 146, BUN/Creatinine Ratio 26.5 H, Glucose 196 H, Calcium 8.3 L 03/04/18 08:25: PT 17.6 H, INR 1.4 03/04/18 11:47: POC Glucose 249 H 03/04/18 16:23: POC Glucose 192 H 03/04/18 22:34: POC Glucose 154 H 03/05/18 05:18: WBC 8.6, RBC 3.33 L, Hgb 9.0 L, Hct 29.8 L, MCV 89.5, MCH 27.0, MCHC 30.2 L, RDW 17.6 H, RDW Differential 54.5 H, Plt Count 314, MPV 8.4, Immature Gran % (Auto) 0.100, Neut % (Auto) 80.9 H, Lymph % (Auto) 5.6 L, Motley % (Auto) 12.8 H, Eos % (Auto) 0.5, Baso % (Auto) 0.1, Absolute Neuts (auto) 7.0, Absolute Lymphs (auto) 0.48 L, Total Counted Not Reportable 03/05/18 05:18: PT 17.0 H, INR 1.4 03/05/18 05:18: Sodium 142, Potassium 3.2 L, Chloride 101, Carbon Dioxide 35.0 H, Anion Gap 6, BUN 10, Creatinine 0.35 L, Estim Creat Clear Calc 44.54, Est GFR (MDRD) Af Amer 239, Est GFR (MDRD) Non-Af 197, BUN/Creatinine Ratio 28.7 H, Glucose 114 H, Calcium 8.1 L Current Medications Acetaminophen (Tylenol) 650 mg PO Q6H PRN PRN PRN Reason: Mild Pain (1-3)/Temp > 100.7 F Last Admin: 03/05/18 06:10 Dose: 650 mg Albuterol/Ipratropium (Duoneb) 3 ml INHALATION Q4HWA.RT [facility] Last Admin: 03/05/18 06:41 Dose: 3 ml Ascorbic Acid (Vitamin C) 500 mg PO BIDCM [facility] Last Admin: 03/04/18 18:26 Dose: 500 mg Aspirin (Ecotrin) 81 mg PO DAILY@0800 [facility] Last Admin: 03/04/18 10:26 Dose: 81 mg Bisacodyl (Dulcolax) 5 mg PO DAILY PRN PRN PRN Reason: Constipation Calamine/Phenol (Calmoseptine Ointment) 1 applic TOPICAL TID [facility] PRN Reason: Protocol Last Admin: 03/05/18 06:10 Dose: 1 applicatio Carvedilol (Coreg) 6.25 mg PO BID [facility] Last Admin: 03/04/18 22:42 Dose: 6.25 mg Clopidogrel Bisulfate (Plavix) 75 mg PO DAILY [facility] Last Admin: 03/04/18 10:28 Dose: 75 mg Cyanocobalamin (Vitamin B12) 1,000 mcg PO DAILY@0800 [facility] Last Admin: 03/04/18 10:26 Dose: 1,000 mcg Dextrose (D50w Syringe) 0 gm IV X1 PRN; Protocol PRN Reason: Hypoglycemia Enoxaparin Sodium (Lovenox) 70 mg SC Q12 [facility] Last Admin: 03/04/18 22:43 Dose: 70 mg Folic Acid (Folic Acid) 1 mg PO DAILY@0800 [facility] Last Admin: 03/04/18 10:26 Dose: 1 mg Furosemide (Lasix) 40 mg PO DAILY [facility] Last Admin: 03/04/18 10:27 Dose: 40 mg Gabapentin (Neurontin) 600 mg PO TIDCM [facility] Last Admin: 03/04/18 18:26 Dose: 600 mg Glucagon () 1 mg IM .X1 PRN PRN Reason: Hypoglycemia Vancomycin HCl () 500 mg in 100 mls @ 100 mls/hr IV Q12H [facility] Last Admin: 03/04/18 20:48 Dose: 100 mls/hr Cefepime HCl 2 gm/ Sodium (Chloride) 100 mls @ 200 mls/hr IV Q24 [facility] Last Admin: 03/04/18 10:48 Dose: 200 mls/hr Insulin Detemir (Levemir (Bkc)) 20 units SC QHS [facility] Last Admin: 03/04/18 22:44 Dose: 20 u Insulin Human Lispro (Humalog Kwikpen (Bkc)) 18 unit SC DAILY@1200 [facility] Last Admin: 03/04/18 13:04 Dose: 18 units Insulin Human Lispro (Humalog Kwikpen (Bkc)) 0 unit SC ACHS [facility] PRN Reason: Protocol Last Admin: 03/04/18 22:44 Dose: 2 units Insulin Human Lispro (Humalog Kwikpen (Bkc)) 18 unit SC DAILY@1700 [facility] Last Admin: 03/04/18 17:35 Dose: 18 units Insulin Human Lispro (Humalog Kwikpen (Bkc)) 22 unit SC BREAKFAST [facility] Lidocaine (Lidoderm Patch) 1 patch TOPICAL DAILY [facility] PRN Reason: Protocol Last Admin: 03/04/18 10:27 Dose: 1 patch Lisinopril (Zestril) 5 mg PO DAILY [facility] Last Admin: 03/04/18 10:29 Dose: 5 mg Loratadine (Claritin) 10 mg PO DAILY [facility] Last Admin: 03/04/18 10:26 Dose: 10 mg Magnesium Hydroxide (Milk Of Magnesia) 30 ml PO DAILY PRN PRN PRN Reason: Constipation Melatonin (Melatonin) 3 mg PO QHS [facility] Last Admin: 03/04/18 22:42 Dose: 3 mg Nutritional Formula (Lactose Free) (Glucerna Shake) 120 ml PO 4X/DAY [facility] Last Admin: 03/04/18 22:42 Dose: 120 ml Nystatin (Mycostatin Powder) 1 applic TOPICAL BID [facility] PRN Reason: Protocol Last Admin: 03/04/18 22:45 Dose: 1 applicatio Ondansetron HCl (Zofran) 4 mg IV Q8H PRN PRN PRN Reason: NAUSEA Oxycodone HCl (Oxyir) 5 mg PO Q6H PRN PRN PRN Reason: PAIN Last Admin: 03/05/18 01:56 Dose: 5 mg Pantoprazole Sodium (Protonix) 40 mg PO DAILY [facility] Last Admin: 03/04/18 10:28 Dose: 40 mg Polysaccharide Iron Complex (Ferrex 150) 150 mg PO BID [facility] Last Admin: 03/04/18 22:42 Dose: 150 mg Psyllium Hydrophilic Mucilloid (Metamucil) 1 packet PO DAILY PRN PRN PRN Reason: CONSTIPATION Senna/Docusate Sodium (Senokot-S, Iqra-Colace) 2 tablet PO BID [facility] Last Admin: 03/04/18 22:45 Dose: Not Given Sodium Chloride () 10 ml IV UD PRN PRN Reason: PICC FLUSH Last Admin: 03/04/18 06:52 Dose: 10 ml Voriconazole (Vfend) 200 mg PO Q12 [facility] Last Admin: 03/04/18 22:42 Dose: 200 mg Warfarin Sodium (Coumadin (Pbkc)) 3 mg PO DAILY@1700 [facility] Last Admin: 03/04/18 17:34 Dose: 3 mg Medical Necessity - Tobacco Use Smoking Status: Former smoker Tobacco Use: Non-smoker Assessment/Plan All Active Problems (Last Reviewed 11/22/17 @ 13:19 by Sherie Alves) Osteomyelitis of left foot (Acute) Pain in right toe(s) (Acute) Cellulitis of right foot (Acute) Abscess of toe of right foot (Acute) Type 2 diabetes mellitus (Acute) Infectious arthritis (Acute) Hypoxia (Acute) Suspected sleep apnea (Acute) Fall (Acute) Community acquired pneumonia (Acute) Rhabdomyolysis (Acute) Acute kidney injury (Acute) The patient is a 67 y/o F w/ PMHx: Obesity, Chronic COPD/Asthma, HTN, HLD, Allergic Rhinitis, ELDER, GERD, Tobacco use recently quit, Gouty Arthritis, Recent RLE Abscess s/p I+D, Noted TCU LLL ([facility] Osteo, suspect may be in error and RLE especially since grafts harvested LLE), Recent LUE DVT, Recent CAD s/p CABG [facility] 3-vessel 02/15/18 who presents to the [facility] ED from TCU on 03/03/18 w/ onset fever and mild hypoxia while in TCU. (1) Fever, Concern for Acute on Chronic Osteoarthritis, Noted LLE; however, RLE w/ recent I+D and abscess, maintained from [facility] on ancef and voriconazole, re-admitted to [place] for concern for fever secondary to osteomyelitis, transitioned per ID recommendation to vanc, cefepime and voriconazole continued; however several possible etiologies for fever while in TCU including LLE hematoma, possibly infected, possible infected LLE harvest incisions, possible UTI w/ recently indwelling conroy secondary to stage II-III decubitous ulcer as well as onset loose stools with negative follow-up c-diff, likely secondary to abx therapy. Dr. Ivory consulted for evaluation of the LLE as concern for harvest incisions and also assessment of possible infected hematoma w/ planned OR 03/05/18 AM for intervention which was cleared/discussed w/ [facility] CT Surgery Team. 03/04/18 conroy discontinued, wound RN consulted, encourage OOB, barrier cream and dressing changes to coccyx pending surgical intervention, BL LE dressing changes, PRN pain regimen. PT, OT, CM for discharge planning. (2) CAD: Cardiac catheterization [facility] 02/06 w/ severe triple-vessel disease with distal left main disease and preserved ejection fraction of 55% w/ moderate mitral regurgitation, incision well appearing, maintain on aspirin, Plavix, Coreg, lisinopril. (3) Recent LUE DVT: Maintained on coumadin w/ lovenox bridge, obtain INR, site from LLE w/ no increased size of hematoma thus continue this regimen, hold if any concerns per Dr. Ivory. 03/05/18 INR 1.4. (4) Recent UTI, Noted on TCU Note: Unclear organism: As noted on BSA, 03/04/18 d/c conroy, straight cath if needed w/ replacement conroy on if >/=3 or with pending OR. (5) Recent Acute Anemia, Blood loss secondary to surgical intervention, Fe deficiency anemia: Admission Hgb 8.5, repeat 8.9, continue Fe supplementation. (6) Hypertension: Continue home regimen including lisinopril, Coreg, Lasix, PRN hydralazine. (7) Hyperlipidemia: Continue home statin regimen. (8) Diabetes mellitus type II w/ neuropathy: Hold oral home regimen, continue home insulin regimen, ADA diet, accu checks w/ ISS, continue home gabapentin regimen. (9) Chronic COPD/Asthma: ATC duonebs, PRN albuterol, HOB, IS parameters, continue home Singulair regimen. (10) Hx Tobacco Abuse: Encouraged continued cessation. (11) Obesity: Weight loss and lifestyle changes encouraged. (12) ELDER: CPAP nightly. (13) GERD: PPI. (14) DVT Prophylaxis: SCDs, lovenox therapeutic regimen and Coumadin bridge. 03/05/18 INR 1.4. (15) CODE status: Full Code. Code Visit Inpatient E&M: 03370 Subs Hosp L2
--- NOTE | 2018-03-05 07:33 | PN_ITS ---
Subjective: Patient overnight with no acute events per self or nursing report aside from difficulty sleeping and continued small loose, soft stools with negative C. difficile assay performed. Patient remains amenable to surgical intervention of the left lower extremity hematoma in addition to the decubitus coccyx ulcer per Dr. Ivory this morning. She notes that her bilateral lower extremity discomfort is constant stable. 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 Patient denies fevers, chills, nausea, emesis, abdominal pain, chest pain or dyspnea. Objective: Physical Examination: General: awake, alert, oriented x 3 and cooperative, seated upright in bed in no apparent distress. Skin: Diffuse thorax and extremity ecchymoses various staged, right lower extremity w/ dressing place (great toe wounds with no drainage), left lower extremity w/ dressing in place (dusky harvest incisions and lateral large ballotable fluctuant hematoma, tender to palpation), midline chest CABG incision well-appearing, coccyx with stage II-III ulceration, mild slough. HEENT: AT/NC, EOMI, PERRLA, MMM. Lungs: Diminished BS BL, > bases, no rales, ronchi or wheezing. Heart: Regular rate and rhythm; no gallop, rub audible, CABG incision well appearing, SM. Abdomen: soft, NTTP, ND, normal BS, no HSM. Extremities: no cyanosis, clubbing, see skin. Neurological: patient awake, alert, oriented x 3; cognitive function intact; pupils equally reactive to light and accomodation; cranial nerves II-XII grossly normal, moving all 4 extremities except limited secondary to BL LE pain and debility, strength severely globally decreased. Psychiatric: affect appears normal, no acute evidence of depressive or anxiety feelings. Vitals/I&O's: Vital Signs Temp Pulse Resp BP Pulse Ox 99.1 F 102 H 20 H 149/90 H 95 03/05/18 02:06 03/05/18 02:06 03/05/18 02:06 03/05/18 02:06 03/05/18 02:06 Oxygen Flow Rate (L/min) 3 Oxygen Delivery Method Nasal Cannula Weight: 165 lb 5.547 oz Body Mass Index (BMI) 29.2 Intake and Output for Last 24 Hours 06/03/04/18 03/05/18 23:59 23:59 23:59 Intake Total 2251.4 / 2251.4 756 / 756 Output Total 1300 / 1300 Balance 951.4 / 951.4 756 / 756 Microbiology Past 72 Hours 03/04/18 16:36 Stool C. difficile DNA Amplification - Final 03/04/18 08:45 Stool Enteric Bacteriology - Final Laboratory Results 03/04/18 06:40: POC Glucose 192 H 03/04/18 06:50: Total Counted Not Reportable, Differential Comment COMMENT 03/04/18 06:50: Sodium 139, Potassium 3.7, Chloride 99, Carbon Dioxide 31.0, Anion Gap 9, BUN 12, Creatinine 0.45 L, Estim Creat Clear Calc 44.54, Est GFR ( MDRD) Af Amer 177, Est GFR (MDRD) Non-Af 146, BUN/Creatinine Ratio 26.5 H, Glucose 196 H, Calcium 8.3 L 03/04/18 08:25: PT 17.6 H, INR 1.4 03/04/18 11:47: POC Glucose 249 H 03/04/18 16:23: POC Glucose 192 H 03/04/18 22:34: POC Glucose 154 H 03/05/18 05:18: WBC 8.6, RBC 3.33 L, Hgb 9.0 L, Hct 29.8 L, MCV 89.5, MCH 27.0, MCHC 30.2 L, RDW 17.6 H, RDW Differential 54.5 H, Plt Count 314, MPV 8.4, Immature Gran % (Auto) 0.100, Neut % (Auto) 80.9 H, Lymph % (Auto) 5.6 L, Arroyo % (Auto) 12.8 H, Eos % (Auto) 0.5, Baso % (Auto) 0.1, Absolute Neuts (auto) 7.0 , Absolute Lymphs (auto) 0.48 L, Total Counted Not Reportable 03/05/18 05:18: PT 17.0 H, INR 1.4 03/05/18 05:18: Sodium 142, Potassium 3.2 L, Chloride 101, Carbon Dioxide 35.0 H , Anion Gap 6, BUN 10, Creatinine 0.35 L, Estim Creat Clear Calc 44.54, Est GFR (MDRD) Af Amer 239, Est GFR (MDRD) Non-Af 197, BUN/Creatinine Ratio 28.7 H, Glucose 114 H, Calcium 8.1 L Current Medications Acetaminophen (Tylenol) 650 mg PO Q6H PRN PRN PRN Reason: Mild Pain (1-3)/Temp > 100.7 F Last Admin: 03/05/18 06:10 Dose: 650 mg Albuterol/Ipratropium (Duoneb) 3 ml INHALATION Q4HWA.RT [facility] Last Admin: 03/05/18 06:41 Dose: 3 ml Ascorbic Acid (Vitamin C) 500 mg PO BIDCM [facility] Last Admin: 03/04/18 18:26 Dose: 500 mg Aspirin (Ecotrin) 81 mg PO DAILY@0800 [facility] Last Admin: 03/04/18 10:26 Dose: 81 mg Bisacodyl (Dulcolax) 5 mg PO DAILY PRN PRN PRN Reason: Constipation Calamine/Phenol (Calmoseptine Ointment) 1 applic TOPICAL TID [facility] PRN Reason: Protocol Last Admin: 03/05/18 06:10 Dose: 1 applicatio Carvedilol (Coreg) 6.25 mg PO BID [facility] Last Admin: 03/04/18 22:42 Dose: 6.25 mg Clopidogrel Bisulfate (Plavix) 75 mg PO DAILY [facility] Last Admin: 03/04/18 10:28 Dose: 75 mg Cyanocobalamin (Vitamin B12) 1,000 mcg PO DAILY@0800 [facility] Last Admin: 03/04/18 10:26 Dose: 1,000 mcg Dextrose (D50w Syringe) 0 gm IV X1 PRN; Protocol PRN Reason: Hypoglycemia Enoxaparin Sodium (Lovenox) 70 mg SC Q12 [facility] Last Admin: 03/04/18 22:43 Dose: 70 mg Folic Acid (Folic Acid) 1 mg PO DAILY@0800 [facility] Last Admin: 03/04/18 10:26 Dose: 1 mg Furosemide (Lasix) 40 mg PO DAILY [facility] Last Admin: 03/04/18 10:27 Dose: 40 mg Gabapentin (Neurontin) 600 mg PO TIDCM [facility] Last Admin: 03/04/18 18:26 Dose: 600 mg Glucagon () 1 mg IM .X1 PRN PRN Reason: Hypoglycemia Vancomycin HCl () 500 mg in 100 mls @ 100 mls/hr IV Q12H [facility] Last Admin: 03/04/18 20:48 Dose: 100 mls/hr Cefepime HCl 2 gm/ Sodium (Chloride) 100 mls @ 200 mls/hr IV Q24 [facility] Last Admin: 03/04/18 10:48 Dose: 200 mls/hr Insulin Detemir (Levemir (Bkc)) 20 units SC QHS [facility] Last Admin: 03/04/18 22:44 Dose: 20 u Insulin Human Lispro (Humalog Kwikpen (Bkc)) 18 unit SC DAILY@1200 [facility] Last Admin: 03/04/18 13:04 Dose: 18 units Insulin Human Lispro (Humalog Kwikpen (Bkc)) 0 unit SC ACHS [facility] PRN Reason: Protocol Last Admin: 03/04/18 22:44 Dose: 2 units Insulin Human Lispro (Humalog Kwikpen (Bkc)) 18 unit SC DAILY@1700 [facility] Last Admin: 03/04/18 17:35 Dose: 18 units Insulin Human Lispro (Humalog Kwikpen (Bkc)) 22 unit SC BREAKFAST [facility] Lidocaine (Lidoderm Patch) 1 patch TOPICAL DAILY [facility] PRN Reason: Protocol Last Admin: 03/04/18 10:27 Dose: 1 patch Lisinopril (Zestril) 5 mg PO DAILY [facility] Last Admin: 03/04/18 10:29 Dose: 5 mg Loratadine (Claritin) 10 mg PO DAILY [facility] Last Admin: 03/04/18 10:26 Dose: 10 mg Magnesium Hydroxide (Milk Of Magnesia) 30 ml PO DAILY PRN PRN PRN Reason: Constipation Melatonin (Melatonin) 3 mg PO QHS [facility] Last Admin: 03/04/18 22:42 Dose: 3 mg Nutritional Formula (Lactose Free) (Glucerna Shake) 120 ml PO 4X/DAY [facility] Last Admin: 03/04/18 22:42 Dose: 120 ml Nystatin (Mycostatin Powder) 1 applic TOPICAL BID [facility] PRN Reason: Protocol Last Admin: 03/04/18 22:45 Dose: 1 applicatio Ondansetron HCl (Zofran) 4 mg IV Q8H PRN PRN PRN Reason: NAUSEA Oxycodone HCl (Oxyir) 5 mg PO Q6H PRN PRN PRN Reason: PAIN Last Admin: 03/05/18 01:56 Dose: 5 mg Pantoprazole Sodium (Protonix) 40 mg PO DAILY [facility] Last Admin: 03/04/18 10:28 Dose: 40 mg Polysaccharide Iron Complex (Ferrex 150) 150 mg PO BID [facility] Last Admin: 03/04/18 22:42 Dose: 150 mg Psyllium Hydrophilic Mucilloid (Metamucil) 1 packet PO DAILY PRN PRN PRN Reason: CONSTIPATION Senna/Docusate Sodium (Senokot-S, Iqra-Colace) 2 tablet PO BID [facility] Last Admin: 03/04/18 22:45 Dose: Not Given Sodium Chloride () 10 ml IV UD PRN PRN Reason: PICC FLUSH Last Admin: 03/04/18 06:52 Dose: 10 ml Voriconazole (Vfend) 200 mg PO Q12 [facility] Last Admin: 03/04/18 22:42 Dose: 200 mg Warfarin Sodium (Coumadin (Pbkc)) 3 mg PO DAILY@1700 [facility] Last Admin: 03/04/18 17:34 Dose: 3 mg Medical Necessity - Tobacco Use Smoking Status: Former smoker Tobacco Use: Non-smoker Assessment/Plan All Active Problems (Last Reviewed 11/22/17 @ 13:19 by Sherie Alves) Osteomyelitis of left foot (Acute) Pain in right toe(s) (Acute) Cellulitis of right foot (Acute) Abscess of toe of right foot (Acute) Type 2 diabetes mellitus (Acute) Infectious arthritis (Acute) Hypoxia (Acute) Suspected sleep apnea (Acute) Fall (Acute) Community acquired pneumonia (Acute) Rhabdomyolysis (Acute) Acute kidney injury (Acute) The patient is a 67 y/o F w/ PMHx: Obesity, Chronic COPD/Asthma, HTN, HLD, Allergic Rhinitis, ELDER, GERD, Tobacco use recently quit, Gouty Arthritis, Recent RLE Abscess s/p I+D, Noted TCU LLL ([facility] Osteo, suspect may be in error and RLE especially since grafts harvested LLE), Recent LUE DVT, Recent CAD s/p CABG [facility] 3-vessel 02/15/18 who presents to the [facility] ED from TCU on 03/03/18 w/ onset fever and mild hypoxia while in TCU. (1) Fever, Concern for Acute on Chronic Osteoarthritis, Noted LLE; however, RLE w/ recent I+D and abscess, maintained from [facility] on ancef and voriconazole, re- admitted to [place] for concern for fever secondary to osteomyelitis, transitioned per ID recommendation to vanc, cefepime and voriconazole continued; however several possible etiologies for fever while in TCU including LLE hematoma, possibly infected, possible infected LLE harvest incisions, possible UTI w/ recently indwelling conroy secondary to stage II-III decubitous ulcer as well as onset loose stools with negative follow-up c-diff, likely secondary to abx therapy. Dr. Ivory consulted for evaluation of the LLE as concern for harvest incisions and also assessment of possible infected hematoma w/ planned OR AM for intervention which was cleared/discussed w/ [facility] CT Surgery Team. 03/04 conroy discontinued, wound RN consulted, encourage OOB, barrier cream and dressing changes to coccyx pending surgical intervention, BL LE dressing changes , PRN pain regimen. PT, OT, CM for discharge planning. (2) CAD: Cardiac catheterization [facility] 02/06 w/ severe triple-vessel disease with distal left main disease and preserved ejection fraction of 55% w/ moderate mitral regurgitation, incision well appearing, maintain on aspirin, Plavix, Coreg, lisinopril. (3) Recent LUE DVT: Maintained on coumadin w/ lovenox bridge, obtain INR, site from LLE w/ no increased size of hematoma thus continue this regimen, hold if any concerns per Dr. Ivory. 03/05/18 INR 1.4. (4) Recent UTI, Noted on TCU Note: Unclear organism: As noted on BSA, 03/04/18 d/ c conroy, straight cath if needed w/ replacement conroy on if >/=3 or with pending OR. (5) Recent Acute Anemia, Blood loss secondary to surgical intervention, Fe deficiency anemia: Admission Hgb 8.5, repeat 8.9, continue Fe supplementation. (6) Hypertension: Continue home regimen including lisinopril, Coreg, Lasix, PRN hydralazine. (7) Hyperlipidemia: Continue home statin regimen. (8) Diabetes mellitus type II w/ neuropathy: Hold oral home regimen, continue home insulin regimen, ADA diet, accu checks w/ ISS, continue home gabapentin regimen. (9) Chronic COPD/Asthma: ATC duonebs, PRN albuterol, HOB, IS parameters, continue home Singulair regimen. (10) Hx Tobacco Abuse: Encouraged continued cessation. (11) Obesity: Weight loss and lifestyle changes encouraged. (12) ELDER: CPAP nightly. (13) GERD: PPI. (14) DVT Prophylaxis: SCDs, lovenox therapeutic regimen and Coumadin bridge. INR 1.4. (15) CODE status: Full Code. Code Visit Inpatient E&M: 75647 Subs Hosp L2
[2018-03-05 08:08] LABS: Vancomycin, Trough Level 6.8 ug/mL (5.0-15.0)
[2018-03-05 08:30] LABS: Bedside Glucose 109 mg/dL (70-110)
--- NOTE | 2018-03-05 09:21 | NURSING ---
report given to Elodia in [facility] for pre-op.
--- NOTE | 2018-03-05 09:44 | NURSING ---
Pt is currently off unit in surgery per Dr Ivory.
--- NOTE | 2018-03-05 10:00 | PCM.RX.CS ---
Consult Pharmacy has been consulted to manage selected antiobiotic: Vancomycin Type of Consult: Follow-up Suspected Infection: Osteomyelitis Prior Doses of Antibiotics Received/Current Regimen: Vancomycin 500mg IV q12h x4 doses Labs: Sodium 142 mmol/L (136-145) 03/05/18 05:18 Potassium 3.2 mmol/L (3.5-5.1) L 03/05/18 05:18 Chloride 101 mmol/L (98-107) 03/05/18 05:18 Carbon Dioxide 35.0 mmol/L (21.0-32.0) H 03/05/18 05:18 Anion Gap 6 (5-15) 03/05/18 05:18 BUN 10 mg/dL (7-18) 03/05/18 05:18 Creatinine 0.35 mg/dL (0.55-1.02) L 03/05/18 05:18 Est GFR (MDRD) Af Amer 239 mL/min (>60) 03/05/18 05:18 Est GFR (MDRD) Non-Af 197 mL/min (>60) 03/05/18 05:18 BUN/Creatinine Ratio 28.7 RATIO (10-20) H 03/05/18 05:18 Glucose 114 mg/dL (74-106) H 03/05/18 05:18 Vancomycin Trough 6.8 ug/mL (5.0-15.0) 03/05/18 07:30 Microbiology: Microbiology 03/04/18 16:36 Stool C. difficile DNA Amplification - Final 03/04/18 08:45 Stool Enteric Bacteriology - Final Weight used for dosin kg Estimated Creatinine Clearance: 44ml/min Goal Trough: 15-20 mcg/mL Pharmacy Plan for Drug Dosing: Trough came back at 6.8. Recommend increasing Vancomycin dose to 1250mg IV q12h (at 0800,1999) and rechecking trough before the 4th dose Pharmacy Service will continue to monitor and adjust dosing as required. Follow-Up Labs: Trough Vancomycin - 03/07/18 @ 0730 Labs to be done on [date and time ordered]: trough level 03/07/18 at 0730
--- NOTE | 2018-03-05 10:15 | SOF_PTH ---
PATIENT: Venita Smith LOC: [facility] U#:[id number] AGE/SX: 67/F [place] [facility] [place]: Dr. Milena Nielson MD : 1950 BED: 1 DIS: 03/08/2018 SPEC #: [id number] RECD: 03/06/18 06:14 STATUS: MILENA REGlenn #: [id number] MARIA E: 03/05/18 10:[address]: Jermaine Ivory DEPT: SURGICAL PATHOLOGY RECD BY: Dimitri Kraus ENTERED: 03/06/18 06:14 SP TYPE: SOFT TISS OTHR DR: MD Dr. Milena Bagley MD Dr. Robert Leininger, MD Dr. Tai Chi Kwok, MD Tissues: A - Soft tissues, NOS B - Soft tissues, NOS Procedures: Special Stain Group I Surgery Specimen Level III AFB Stain (control) GMS Stain (control) Comments: @ Ordering doctor for BRIDGER edited from to @ jenn BENITEZ at 03/06/18 0615 @ Submitting doctor edited from to @ jenn BENITEZ at 03/06/18 0615 HEADER OPERATION: Excision, pressure sore; surgical preparation left leg PRE-OP DIAGNOSIS: Sacral pressure sore, left leg hematoma with skin necrosis TISSUE SUBMITTED: A ? Soft tissue sacral pressure sore, B ? Soft tissue left leg and thigh MICROSCOPIC DIAGNOSIS A. Soft tissue sacral pressure sore: Pieces of skin and underlying tissue with focal ulceration, acute and chronic inflammation, granulation tissue reaction and abscess formation. Special stains for acid fast bacilli and fungi are negative for organisms; matched controls are appropriate. B. Soft tissue left leg and thigh: Pieces of skin and soft tissue with acute and chronic inflammation, fat necrosis and hemorrhage, clinically hematoma. SJ:renetta 03/07/18 MICROSCOPIC DESCRIPTION Slides are reviewed. GROSS DESCRIPTION A - Received in fixative is one container labeled with the patient's name and designated soft tissue sacral pressure sore. The specimen consists of four variable sized pieces of skin with underlying tissue measuring in aggregate 7 x 6 x 3 cm. Sections do not reveal any mass lesion. Surveyor Helper sections are submitted in two cassettes. B - Received in fixative is one container labeled with the patient's name and designated soft tissue left leg and thigh. The specimen consists of multiple pieces of skin with underlying tissue mixed with blood clot measuring in aggregate 15 x 12 x 4 cm. A few of the pieces show blood clot in the deeper portion of the tissue. Sections reveal focally hemorrhagic cut surfaces. Surveyor Helper sections are submitted in two cassettes. / LACI:renetta 03/06/18 TC:2 CPT: 52313 x2, 21658 x2
--- NOTE | 2018-03-05 13:39 | PCM.IMDPSTOP ---
Immediate Post-Op Note Date of Procedure: 03/05/18 Primary Surgeon/Physician: Jermaine Ivory exceptional student education aide: None Pre-Operative Diagnosis: 1. Hematoma left anteromedial leg with skin necrosis. 2. Sacral pressure sore, Unstageable, with skin necrosis. 3. Recent CABG. 4. Diabetes mellitus. 5. Former smoker. Post-Operative Diagnosis: 1. Hematoma left anteromedial leg with skin necrosis. 2. Sacral pressure sore, Stage IV, with underlying muscle necrosis. 3. Hematoma left medial thigh. 3. Recent CABG. 4. Diabetes mellitus. 5. Former smoker. Surgery/Procedure Performed:: 1. Surgical preparation left anteromedial leg with incison and drainage and excisional debridement hematoma with skin necrosis (286 cm2). 2. Excision sacral pressure sore, Stage IV, with underlying muscle necrosis (64 cm2). 3. Surgical preparation left medial thigh with incision and drainage and excisional debridement hematoma (52 cm2). Description of Surgical Findings:: The patient is a 67 year old F who was admitted from TCU because of fever and hypoxia. She had a CABG on 02/15/17 in [place]. She lives in [place] and was sent to TCU post discharge. She has recent history of right osteomyelitis and aspergillus and was sent to TCU on Ancef and Voriconazole. It was noted she had a hematoma left leg in the area of the vein harvesting with skin necrosis. She also has a sacral pressure sore that is unstageable at the present time with overlying skin necrosis. Infectious Diseases is involved and her antibiotics have been changed to Vancomycin, Cefepime, and Voriconazole. I was asked to evaluate this patient for surgical options for treatment. Today the patient underwent surgical preparation left anteromedial leg with incison and drainage and excisional debridement hematoma with skin necrosis (286 cm2) and excision sacral pressure sore, Stage IV, with underlying muscle necrosis (64 cm2) and surgical preparation left medial thigh with incision and drainage and excisional debridement hematoma (52 cm2). I used Gerald absorbable hemostat (2 vials, one in the left leg and one in the sacral area). Reference Number - [id number]. Lot Number - [id number]. Expiration - October 14, 2022. Size of defect left anteromedial leg - 26 x 11 x 1.5 cm. Size of defect left medial thigh - 13 x 4 x 3 cm. Size of defect sacral area - 8 x 8 x 2 cm. Estimated Blood Loss: 250 ml. Specimen's removed: 1. Hematoma with skin necrosis left anteromedial leg and left medial thigh to Pathology and Microbiology. 2. MRSA Wound DNA by PCR left leg. 3. Sacral pressure sore soft tissue to Pathology and Microbiology. 4. MRSA Wound DNA by PCR sacral area. Drains: None. Type of Anesthesia:: General - Admit VTE Documentation VTE Present on Admission: Yes - Patient is on Coumadin for recent CABG and left arm DVT. VTE Mechan Device Prophylaxis: SCD's VTE Pharm Prophylaxis ordered?: Yes
[2018-03-05 15:07] LABS: Hematocrit 28.3 % (37-47); Hemoglobin 8.4 g/dl (12.0-15.0)
[2018-03-05 15:31] LABS: Bedside Glucose 129 mg/dL (70-110)
[2018-03-05 16:06] LABS: M R Staph aureus DNA By PCR Negative (Negative); Probe Check PASS; Specimen Processing Control PASS; Staph aureus DNA By PCR NEGATIVE (Negative)
[2018-03-05] MEDS: Lisinopril 5 MG Tablet PO (17:42)
[2018-03-05] MEDS: Ascorbic Acid 500 MG Tablet PO (17:42)
[2018-03-05] MEDS: Pantoprazole Sodium 40 MG Tablet PO (17:42)
[2018-03-05] MEDS: Gabapentin 600 MG Tablet PO (17:43)
[2018-03-05] MEDS: Furosemide 40 MG Tablet PO (17:43)
--- NOTE | 2018-03-05 18:45 | PCM.OPRPT ---
Report of Operation Date of Procedure: 03/05/18 Pre-Operative Diagnosis: 1. Hematoma left anteromedial leg with skin necrosis. 2. Sacral pressure sore, Unstageable, with skin necrosis. 3. Recent CABG. 4. Diabetes mellitus. 5. Former smoker. Post-Operative Diagnosis: 1. Hematoma left anteromedial leg with skin necrosis. 2. Sacral pressure sore, Stage IV, with underlying muscle necrosis. 3. Hematoma left medial thigh. 3. Recent CABG. 4. Diabetes mellitus. 5. Former smoker. Surgery/Procedure Performed:: 1. Surgical preparation left anteromedial leg with incison and drainage and excisional debridement hematoma with skin necrosis (286 cm2). 2. Excision sacral pressure sore, Stage IV, with underlying muscle necrosis (64 cm2). 3. Surgical preparation left medial thigh with incision and drainage and excisional debridement hematoma (52 cm2). Description of Surgical Findings:: The patient is a 67 year old F who was admitted from TCU because of fever and hypoxia. She had a CABG on 02/15/17 in [place]. She lives in [place] and was sent to TCU post discharge. She has recent history of right osteomyelitis and aspergillus and was sent to TCU on Ancef and Voriconazole. It was noted she had a hematoma left leg in the area of the vein harvesting with skin necrosis. She also has a sacral pressure sore that is unstageable at the present time with overlying skin necrosis. Infectious Diseases is involved and her antibiotics have been changed to Vancomycin, Cefepime, and Voriconazole. I was asked to evaluate this patient for surgical options for treatment. Patient was informed of the risks and complications of the procedure including alternatives to surgery. These were discussed with the patient personally. Patient voices understanding and wishes to proceed. I used Gerald absorbable hemostat (2 vials, one in the left leg and one in the sacral area). Reference Number - [id number]. Lot Number - [id number]. Expiration - October 14, 2022. Size of defect left anteromedial leg - 26 x 11 x 1.5 cm. Size of defect left medial thigh - 13 x 4 x 3 cm. Size of defect sacral area - 8 x 8 x 2 cm. stone gang sawyer: None Type of Anesthesia:: General Specimen's removed: 1. Hematoma with skin necrosis left anteromedial leg and left medial thigh to Pathology and Microbiology. 2. MRSA Wound DNA by PCR left leg. 3. Sacral pressure sore soft tissue to Pathology and Microbiology. 4. MRSA Wound DNA by PCR sacral area. Drains: None. Estimated Blood Loss (mL): 250 ml. Description of Procedure: Patient was taken to OR in supine position and was placed under general anesthesia. She was then placed in the lateral position and her sacral area and left leg were prepped and draped in the usual fashion. SCD's were placed for DVT prophylaxis. Perioperative antibiotics were given intravenously. Using a scalpel, I excised the sacral pressure around the area of skin necrosis down through the subcutaneous tissue until the underlying muscle was seen. There was evidence of muscle necrosis which was excised. The bone was palpable but not exposed. A layer of viable soft tissue was covering the underlying bone. So no bone was removed today. Half the soft tissue was sent to Pathology for analysis to rule out carcinoma and half the soft tissue was sent to Microbiology for culture. A positive culture may necessitate antibiotic modification. The wound was irrigated with saline. Hemostasis was obtained with electrocautery. The size of the sacral pressure sore defect after excision including necrotic muscle was 8 x 8 x 2 cm. I sprayed Gerald absorbable hemostat into the sacral wound to help minimize drainage issues. Mepitel nonadherent dressing was applied to the wound followed by Kerlix gauze with Betadine followed by dry Kerlix gauze and ABD pad compression dressing. I then made an incision into the hematoma left leg with overlying skin necrosis. A large hematoma clot was evacuated along with some blood. Dissection went down to the muscular fascia. The fascia and muscle were inflamed but viable and there was no evidence of necrotizing process. Some of the fascia was debrided with the rest of the tissue. Hemostasis obtained with electrocautery. The overlying necrotic skin was sharply excised and debrided to make the wound care easier and to minimize infection. I then temporarily placed a sterile towel over the wound as it was difficult to get access to the medial leg where the incisions were located from the current lateral position. At this time the patient was placed in the supine position and the left leg was prepped and draped in the usual fashion. Palpating the incision on the medial aspect of the left leg showed a hematoma with drainage through various areas of the incision. There was some necrotic skin edges as well. The sutures were removed. A large hematoma clot was evacuated along with some blood. Dissection went down to the muscular fascia. The fascia and muscle were inflamed but viable and there was no evidence of necrotizing process. Some of the fascia was debrided with the rest of the tissue. Hemostasis was obtained with electrocautery. There was some fat necrosis that was sharply excised and debrided. The necrotic skin edges were also sharply excised and debrided. The remaining tissue showed good bleeding and viability. There was some bruised skin with a very small skin bridge between the incision wound and the recently debrided hematoma wound. That small bruised skin bridge was also excised to make it one wound instead of two wounds. It will make the VAC placement easier. The size of the complex hematoma wound left anteromedial leg was 26 x 11 x 1.5 cm. There was no exposed bone. When I was getting ready to dress the left leg wound, I checked the proximal aspect of the wound and noted there was a large extension of the hematoma into the medial thigh extending up the groin area. It was suctioned out. However it would be difficult to pack the wound postop which would increase risk of infection. Therefore a separate incision was made in the left medial thigh. This included some bruised skin as well that sharply excised and debrided. Dissection went down to the muscular fascia. The fascia and muscle were inflamed but viable as there was no evidence of necrotizing process. Some of the fascia was debrided with the rest of the tissue. Hemostasis was obtained with electrocautery. Both the left anteromedial leg and left medial thigh wounds were irrigated with saline. The size of the complex hematoma wound left medial thigh was 13 x 4 x 3 cm. I then sprayed Gerald absorbable hemostat into both the leg and thigh wounds to help minimize drainage issues. I then dressed both the leg and thigh wounds with Mepitel nonadherent dressing followed by Kerlix gauze and Betadine followed by dry Kerlix gauze and ABD pads and compression ERAN wraps to help minimize bleeding issues postop. Tissue that was removed was sent to Pathology for analysis to rule out carcinoma as well as to Microbiology for culture. A positive culture may necessitate antibiotic modification. Patient tolerated the procedure well and was sent to PACU in satisfactory condition. She will be sent upstairs for continued postop care. She will continue IV antibiotics. Also encourage nutritional supplementation with protein to help the healing process. Will have her evaluated for an ECF since her wounds are too complex for TCU at this time. After discharge, can followup [facility]. If there is a plateau in the healing process, can proceed with delayed closure with skin grafting. For the sacral pressure sore, fasciocutaneous flaps can also be used. Don't want to use muscles that have to be detached since she is still ambulatory, even though it is done slowly. Grafts/Implants Used: None. - Complications None. - Admit VTE Documentation VTE Present on Admission: Yes - Patient is on Coumadin after recent CABG and left arm DVT. VTE Mechan Device Prophylaxis: SCD's VTE Pharm Prophylaxis ordered?: Yes Code Visit Surgery Charges CPT - 00998 ICD-10 - S80.12xA, I96, Z95.1, E11.9, Z87.891 85907 S81.802A, S80.12xA, I96, Z95.1, E11.9, Z87.891 06571 S81.802A, S80.12xA, I96, Z95.1, E11.9, Z87.891 79145 S81.802A, S80.12xA, I96, Z95.1, E11.9, Z87.891 12999 S71.102A, S70.12xA, Z95.1, E11.9, Z87.891 64930 S70.12xA, Z95.1, E11.9, Z87.891 38662 L89.154, I96, Z95.1, E11.9, Z87.891
--- NOTE | 2018-03-05 20:22 | NURSING ---
Called lab. H&H at 2030 & 0230. Please send vials.
[2018-03-05 21:04] LABS: Hematocrit 26.3 % (37-47); Hemoglobin 7.8 g/dl (12.0-15.0)
[2018-03-05] MEDS: 0.9% NaCl PICC Flush 10 ML IV ×4 (21:40→23:22)
[2018-03-05] MEDS: Carvedilol 6.25 MG Tablet PO (21:41)
[2018-03-05] MEDS: Glucerna Shake 120 ML LIQUID PO (21:41)
[2018-03-05] MEDS: Nystatin Powder 15gm Bottle 1 APPLIC TOPICAL (21:41)
[2018-03-05] MEDS: Voriconazole 200 MG Tablet PO (21:42)
[2018-03-05] MEDS: MELATONIN 3 MG TABLET PO (21:42)
[2018-03-05] MEDS: Insulin Lispro 100 UNIT/ML INSULN.PEN SC (21:42)
[2018-03-05] MEDS: Iron Polysaccharide Complex 150 MG CAPSULE PO (21:42)
[2018-03-05 22:16] LABS: Bedside Glucose 162 mg/dL (70-110)
[2018-03-06] VITALS (19 sets, daily range): BP systolic 100–144; BP diastolic 45–81; PULSE 76–100; RESP 16–18; TEMP 36.7–38.7; O2SAT 92–99
[2018-03-06 03:05] LABS: Absolute Lymphocyte Count 0.52 X10^3/ul (0.83-4.51); Absolute Neutrophil Count 4.8 X10^3/uL (2.0-7.7); Eosinophil# 0.04 X10^3/uL; Eosinophils% 0.7 % (0-5); Hematocrit 24.9 % (37-47); Hemoglobin 7.4 g/dl (12.0-15.0); Lymphocyte # 0.52 X10^3/ul (4.0); Lymphocyte % 8.6 % (19-41); Mean Corp Hgb Conc 29.7 g/gl (32-36); Mean Corpuscular Hgb 26.8 pg (27.0-32.0); Mean Corpuscular Volume 90.2 fL (81-99); Mean Platelet Vol. 8.1 fl (6.2-12.0); Monocyte# 0.68 X10^3/uL; Monocyte% 11.3 % (0-10); Neutrophil % 79.4 % (47-70); POSITIVE COUNT NO; POSITIVE DIFFERENTIAL YES; POSITIVE MORPHOLOGY NO; Platelet Count 217 K/mm3 (150-450); RBC Distribution Width SD 58.5 fl (35.1-43.9); Red Blood Count 2.76 M/mm3 (4.2-5.4)
[2018-03-06 03:06] LABS: Differential Indicated SCAN CRITERIA MET
[2018-03-06 03:17] LABS: International Normalized Ratio 1.3; Prothrombin Time (Protime)PT. 16.2 SECONDS (11.7-14.9)
[2018-03-06] MEDS: oxyCODONE 5 MG Tablet PO ×3 (03:19→23:58)
[2018-03-06] MEDS: 0.9% NaCl PICC Flush 10 ML IV ×7 (03:22→16:57)
[2018-03-06 03:33] LABS: Anion Gap 5 (5-15); BUN 21 mg/dL (7-18); Calcium,Total 7.8 mg/dL (8.5-10.1); Chloride 103 mmol/L (98-107); Creatinine, Serum 0.52 mg/dL (0.55-1.02); EST Glomerular Filtration Rate 123 mL/min (>60); Est Glom Filt Rate - Afr Amer 149 mL/min (>60); Estimated Creatinine Clearance 44.54 ml/min; Glucose 103 mg/dL (74-106); Potassium 4.3 mmol/L (3.5-5.1); Prealbumin 5.9 mg/dL (20.0-40.0); Sodium Level 141 mmol/L (136-145)
[2018-03-06] MEDS: Menthol/Lanolin/Calamine/Znox 113 GM Tube 1 APPLIC TOPICAL ×3 (05:40→22:33)
[2018-03-06] MEDS: Ipratropium/Albuterol Sulfate 3 ML AMPUL.NEB INHALATION ×2 (06:45→14:53)
[2018-03-06 07:31] LABS: Bedside Glucose 66 mg/dL (70-110)
[2018-03-06 07:51] LABS: Bedside Glucose 57 mg/dL (70-110)
[2018-03-06] MEDS: Ascorbic Acid 500 MG Tablet PO ×2 (07:57→16:19)
[2018-03-06] MEDS: Folic Acid 1 MG Tablet PO (07:57)
[2018-03-06] MEDS: Gabapentin 600 MG Tablet PO ×3 (07:58→16:19)
[2018-03-06] MEDS: Aspirin E.C. 81 MG Tablet PO (07:58)
[2018-03-06] MEDS: Cyanocobalamin 500 MCG Tablet 1000 MCG PO (07:58)
[2018-03-06 08:11] LABS: Bedside Glucose 69 mg/dL (70-110)
[2018-03-06 08:31] LABS: Bedside Glucose 70 mg/dL (70-110)
--- NOTE | 2018-03-06 08:44 | PCM.PN.HOSP ---
Subjective: Patient overnight with actually improved pain following intervention surgically day prior with extensive debridement with hemoglobin dropping overnight to low 7.4 with 2 unit PRBC ordered this morning yesterday. Given extensive nature of debridement, patient Plavix, Coumadin and Lovenox were held per discussion with surgeon with plan for evaluation today with VAC placement and restart of regimen especially given recent CABG and DVT if no obvious bleeding. Patient denies fevers, chills, nausea, emesis, abdominal pain, chest pain or dyspnea. Objective: Physical Examination: General: awake, alert, oriented x 3 and cooperative, seated upright in bed, notes actually feeling improved since operative intervention despite extensive nature. Skin: Diffuse thorax and extremity ecchymoses various staged, right lower extremity w/ dressing place (great toe wounds with no drainage), left lower extremity w/ dressing in place (status post I&D and excisional debridement of left anterior medial leg hematoma with skin necrosis 286 cm2 and left medial thigh with I&D and excisional debridement hematoma which extended upward 52 cm2), midline chest CABG incision well-appearing, coccyx with stage IV ulceration upon presentation w/ dressing in place (s/p excisional debridement with noting underlying tissue necrosis 64 cm2). HEENT: AT/NC, EOMI, PERRLA, MMM. Lungs: Diminished BS BL, > bases, no rales, ronchi or wheezing. Heart: Regular rate and rhythm; no gallop, rub audible, CABG incision well appearing, SM. Abdomen: soft, NTTP, ND, normal BS, no HSM. Extremities: no cyanosis, clubbing, see skin. Neurological: patient awake, alert, oriented x 3; cognitive function intact; pupils equally reactive to light and accomodation; cranial nerves II-XII grossly normal, moving all 4 extremities except severely limited secondary to recent OR, dressings, strength severely globally decreased. Psychiatric: affect appears normal, no acute evidence of depressive or anxiety feelings. Vitals/I&O's: Vital Signs Temp Pulse Resp BP Pulse Ox 98.0 F 84 16 112/52 L 92 03/06/18 03:22 03/06/18 07:20 03/06/18 06:46 03/06/18 03:22 03/06/18 06:46 Oxygen Flow Rate (L/min) 2 Oxygen Delivery Method Nasal Cannula Weight: 165 lb 5.547 oz Body Mass Index (BMI) 29.2 Intake and Output for Last 24 Hours 03/04/18 03/05/18 03/06/18 23:59 23:59 23:59 Intake Total 2251.4 / 2251.4 2879 / 2879 192 / 192 Output Total 1300 / 1300 1050 / 1050 100 / 100 Balance 951.4 / 951.4 1829 / 1829 92 / 92 Microbiology Past 72 Hours 03/04/18 16:36 Stool C. difficile DNA Amplification - Final 03/04/18 08:45 Stool Enteric Bacteriology - Final Laboratory Results 03/05/18 14:58: Hgb 8.4 L, Hct 28.3 L 03/05/18 15:20: POC Glucose 129 H 03/05/18 20:44: Hgb 7.8 L, Hct 26.3 L 03/05/18 21:32: POC Glucose 162 H 03/05/18 : S.aureus Protein A PCR NEGATIVE, MRSA (PCR) Negative 03/05/18 : S.aureus Protein A PCR NEGATIVE, MRSA (PCR) Negative 03/06/18 02:40: WBC 6.0, RBC 2.76 L, Hgb 7.4 L, Hct 24.9 L, MCV 90.2, MCH 26.8 L, MCHC 29.7 L, RDW 18.0 H, RDW Differential 58.5 H, Plt Count 217, MPV 8.1, Immature Gran % (Auto) 0.000, Neut % (Auto) 79.4 H, Lymph % (Auto) 8.6 L, [place]ne % (Auto) 11.3 H, Eos % (Auto) 0.7, Baso % (Auto) 0.0, Absolute Neuts (auto) 4.8, Absolute Lymphs (auto) 0.52 L, Total Counted Not Reportable 03/06/18 02:40: PT 16.2 H, INR 1.3 03/06/18 02:40: Sodium 141, Potassium 4.3, Chloride 103, Carbon Dioxide 33.0 H, Anion Gap 5, BUN 21 H, Creatinine 0.52 L, Estim Creat Clear Calc 44.54, Est GFR (MDRD) Af Amer 149, Est GFR (MDRD) Non-Af 123, BUN/Creatinine Ratio 40.0 H, Glucose 103, Calcium 7.8 L, Prealbumin 5.9 L 03/06/18 07:00: Blood Type A POSITIVE, Antibody Screen NEGATIVE, Crossmatch See Detail 03/06/18 07:26: POC Glucose 66 L 03/06/18 07:43: POC Glucose 57 L 03/06/18 08:04: POC Glucose 69 L 03/06/18 08:24: POC Glucose 70 Current Medications Acetaminophen (Tylenol) 650 mg PO Q6H PRN PRN PRN Reason: Mild Pain (1-3)/Temp > 100.7 F Last Admin: 03/05/18 21:46 Dose: 650 mg Albuterol/Ipratropium (Duoneb) 3 ml INHALATION Q4HWA.RT [facility] Last Admin: 03/06/18 06:45 Dose: 3 ml Ascorbic Acid (Vitamin C) 500 mg PO BIDCM [facility] Last Admin: 03/06/18 07:57 Dose: 500 mg Aspirin (Ecotrin) 81 mg PO DAILY@0800 [facility] Last Admin: 03/06/18 07:58 Dose: 81 mg Bisacodyl (Dulcolax) 5 mg PO DAILY PRN PRN PRN Reason: Constipation Calamine/Phenol (Calmoseptine Ointment) 1 applic TOPICAL TID [facility] PRN Reason: Protocol Last Admin: 03/06/18 05:40 Dose: 1 applicatio Carvedilol (Coreg) 6.25 mg PO BID [facility] Last Admin: 03/05/18 21:41 Dose: 6.25 mg Clopidogrel Bisulfate (Plavix) 75 mg PO DAILY [facility] Last Admin: 03/04/18 10:28 Dose: 75 mg Cyanocobalamin (Vitamin B12) 1,000 mcg PO DAILY@0800 [facility] Last Admin: 03/06/18 07:58 Dose: 1,000 mcg Dextrose (D50w Syringe) 0 gm IV X1 PRN; Protocol PRN Reason: Hypoglycemia Enoxaparin Sodium (Lovenox) 70 mg SC Q12 [facility] Last Admin: 03/05/18 14:15 Dose: Not Given Folic Acid (Folic Acid) 1 mg PO DAILY@0800 [facility] Last Admin: 03/06/18 07:57 Dose: 1 mg Furosemide (Lasix) 40 mg PO DAILY [facility] Last Admin: 03/05/18 17:43 Dose: 40 mg Gabapentin (Neurontin) 600 mg PO TIDCM [facility] Last Admin: 03/06/18 07:58 Dose: 600 mg Glucagon () 1 mg IM .X1 PRN PRN Reason: Hypoglycemia Hydromorphone HCl (Dilaudid Inj) 1 mg IV Q4H PRN PRN PRN Reason: SEVERE PAIN (6-06/26) Cefepime HCl 2 gm/ Sodium (Chloride) 100 mls @ 200 mls/hr IV Q12 [facility] Last Admin: 03/05/18 21:42 Dose: 200 mls/hr Vancomycin HCl 1,250 mg/ (Sodium Chloride) 275 mls @ 183.333 mls/hr IV Q12H [facility] Last Admin: 03/06/18 07:55 Dose: 183.333 mls/hr Insulin Detemir (Levemir (Bkc)) 20 units SC QHS [facility] Last Admin: 03/05/18 21:42 Dose: 20 u Insulin Human Lispro (Humalog Kwikpen (Bkc)) 18 unit SC DAILY@1200 [facility] Last Admin: 03/05/18 15:33 Dose: Not Given Insulin Human Lispro (Humalog Kwikpen (Bkc)) 0 unit SC ACHS [facility] PRN Reason: Protocol Last Admin: 03/06/18 07:31 Dose: Not Given Insulin Human Lispro (Humalog Kwikpen (Bkc)) 18 unit SC DAILY@1700 [facility] Last Admin: 03/05/18 15:34 Dose: Not Given Insulin Human Lispro (Humalog Kwikpen (Bkc)) 22 unit SC BREAKFAST [facility] Last Admin: 03/06/18 07:31 Dose: Not Given Lidocaine (Lidoderm Patch) 1 patch TOPICAL DAILY [facility] PRN Reason: Protocol Last Admin: 03/05/18 15:51 Dose: Not Given Lisinopril (Zestril) 5 mg PO DAILY [facility] Last Admin: 03/05/18 17:42 Dose: 5 mg Loratadine (Claritin) 10 mg PO DAILY [facility] Last Admin: 03/05/18 15:52 Dose: Not Given Magnesium Hydroxide (Milk Of Magnesia) 30 ml PO DAILY PRN PRN PRN Reason: Constipation Melatonin (Melatonin) 3 mg PO QHS [facility] Last Admin: 03/05/18 21:42 Dose: 3 mg Nutritional Formula (Radames - [place] Flavor) 1 packet PO BIDCM [facility] Last Admin: 03/06/18 07:57 Dose: 1 packet Nutritional Formula (Lactose Free) (Glucerna Shake) 120 ml PO 4X/DAY [facility] Last Admin: 03/05/18 21:41 Dose: 120 ml Nystatin (Mycostatin Powder) 1 applic TOPICAL BID [facility] PRN Reason: Protocol Last Admin: 03/05/18 21:41 Dose: 1 applicatio Ondansetron HCl (Zofran) 4 mg IV Q8H PRN PRN PRN Reason: NAUSEA Oxycodone HCl (Oxyir) 5 - 10 mg PO Q4H PRN PRN PRN Reason: PAIN Last Admin: 03/06/18 03:19 Dose: 10 mg Pantoprazole Sodium (Protonix) 40 mg PO DAILY [facility] Last Admin: 03/05/18 17:42 Dose: 40 mg Polysaccharide Iron Complex (Ferrex 150) 150 mg PO BID [facility] Last Admin: 03/05/18 21:42 Dose: 150 mg Psyllium Hydrophilic Mucilloid (Metamucil) 1 packet PO DAILY PRN PRN PRN Reason: CONSTIPATION Senna/Docusate Sodium (Senokot-S, Iqra-Colace) 2 tablet PO BID [facility] Last Admin: 03/05/18 21:43 Dose: Not Given Sodium Chloride () 10 ml IV UD PRN PRN Reason: PICC FLUSH Last Admin: 03/06/18 03:25 Dose: 10 ml Voriconazole (Vfend) 200 mg PO Q12 [facility] Last Admin: 03/05/18 21:42 Dose: 200 mg Warfarin Sodium (Coumadin (Pbkc)) 3 mg PO DAILY@1700 [facility] Last Admin: 03/04/18 17:34 Dose: 3 mg Medical Necessity - Tobacco Use Smoking Status: Former smoker Tobacco Use: Non-smoker Assessment/Plan All Active Problems (Last Reviewed 11/22/17 @ 13:19 by Sherie Alves) Osteomyelitis of left foot (Acute) Pain in right toe(s) (Acute) Cellulitis of right foot (Acute) Abscess of toe of right foot (Acute) Type 2 diabetes mellitus (Acute) Infectious arthritis (Acute) Hypoxia (Acute) Suspected sleep apnea (Acute) Fall (Acute) Community acquired pneumonia (Acute) Rhabdomyolysis (Acute) Acute kidney injury (Acute) The patient is a 67 y/o F w/ PMHx: Obesity, Chronic COPD/Asthma, HTN, HLD, Allergic Rhinitis, ELDER, GERD, Tobacco use recently quit, Gouty Arthritis, Recent RLE Abscess s/p I+D, Noted TCU LLL ([facility] Osteo, suspect may be in error and RLE especially since grafts harvested LLE), Recent LUE DVT, Recent CAD s/p CABG [facility] 3-vessel 02/15/18 who presents to the [facility] ED from TCU on 03/03/18 w/ onset fever and mild hypoxia while in TCU. (1) Fever suspected Secondary to Coccyx Decubitous Ulcer Stage IV and Potentially Infected LLE Anteriomedial and Left Medial Thigh Hematoma: Initially upon admission suspected secondary to RLE recently noted osteomyelitis; however, upon further evaluation more concern for above noted. Patient transitioned per ID recommendation to vanc, cefepime and voriconazole, Dr. Ivory consulted for evaluation of the LLE as concern for harvest incisions and also assessment of possible infected hematoma, OR 03/05/18 AM with extensive debridements with I&D and excisional debridement of hematoma of the left anterior medial leg and left medial thigh secondary to extension of hematoma upward in addition to excision of coccyx pressure sore stage IV with noted underlying muscle necrosis, wound RN consulted with planned VAC placement, postoperative anemia acute on chronic with 2 unit PRBC to be ordered now, will await wound RN evaluation of sites to assure no bleeding prior to restart Lovenox and Coumadin bridge as well as Plavix which was reviewed with Dr. Ivory. Conroy currently in place secondary to extensive nature of coccyx debridement. Encourage out of bed, barrier cream, pain regimen, PT, OT, CM for plan discharge to TCU once clinically appropriate. Will await operative cultures to determine alterations to antibiotic therapy, possibly transition back to Ancef and voriconazole for osteomyelitis of the right great toe and foot. (2) Acute on Chronic Anemia/Fe Deficiency anemia secondary to Operative Blood Loss: Hemoglobin postoperatively 7.4, given recent cardiac interventions to unit PRBC ordered and pending for demonstration, wound RN will closely evaluate regions following dressing takedown prior to initiating Plavix, Coumadin and Lovenox bridge which was discussed with Dr. Ivory. Patient is high risk given recent CABG and DVT if necessary to remain off these agents. Continue iron supplementation. (3) CAD: Cardiac catheterization [facility] 02/06 w/ severe triple-vessel disease with distal left main disease and preserved ejection fraction of 55% w/ moderate mitral regurgitation, incision well appearing, currently holding Plavix given recent severity of operative intervention and anemia but given recent CABG will need to restart once dressing takedown this morning. Continue aspirin, Coreg, lisinopril. (3) Recent LUE DVT: Early holding Coumadin w/ lovenox bridge in [place] to recent severity of operative intervention needs and anemia, 03/05/18 INR 1.4-->03/06/18 INR 1.3, held dose 03/05/18 secondary to OR. Pending dressing takedown and plan to restart if appearance appropriate as discussed with Dr. Ivory and wound RN. (4) Recent UTI, Noted on TCU Note: Unclear organism in outside hospital, 03/04/18 d/c conroy, however, extensive debridement of the coccyx region performed therefore Conroy replaced on 03/05/18. (5) Hypertension: Continue home regimen including lisinopril, Coreg, Lasix, PRN hydralazine. (6) Hyperlipidemia: Continue home statin regimen. (7) Diabetes mellitus type II w/ neuropathy: Hold oral home regimen, continue home insulin regimen, ADA diet, accu checks w/ ISS, continue home gabapentin regimen. (8) Chronic COPD/Asthma: ATC duonebs, PRN albuterol, HOB, IS parameters, continue home Singulair regimen. (9) Hx Tobacco Abuse: Encouraged continued cessation. (10) Obesity: Weight loss and lifestyle changes encouraged. (11) ELDER: CPAP nightly. (12) GERD: PPI. (13) DVT Prophylaxis: SCDs, hold bridge pending dressing takedown this AM, restart if well appearing given high risk w/ recent DVT and CABG. (14) CODE status: Full Code. Code Visit Inpatient E&M: 02415 Subs Hosp L3
--- NOTE | 2018-03-06 08:57 | PN_ITS ---
Subjective: Patient overnight with actually improved pain following intervention surgically day prior with extensive debridement with hemoglobin dropping overnight to low 7.4 with 2 unit PRBC ordered this morning yesterday. Given extensive nature of debridement, patient Plavix, Coumadin and Lovenox were held per discussion with surgeon with plan for evaluation today with VAC placement and restart of regimen especially given recent CABG and DVT if no obvious bleeding. Patient denies fevers, chills, nausea, emesis, abdominal pain, chest pain or dyspnea. Objective: Physical Examination: General: awake, alert, oriented x 3 and cooperative, seated upright in bed, notes actually feeling improved since operative intervention despite extensive nature. Skin: Diffuse thorax and extremity ecchymoses various staged, right lower extremity w/ dressing place (great toe wounds with no drainage), left lower extremity w/ dressing in place (status post I&D and excisional debridement of left anterior medial leg hematoma with skin necrosis 286 cm2 and left medial thigh with I&D and excisional debridement hematoma which extended upward 52 cm2) , midline chest CABG incision well-appearing, coccyx with stage IV ulceration upon presentation w/ dressing in place (s/p excisional debridement with noting underlying tissue necrosis 64 cm2). HEENT: AT/NC, EOMI, PERRLA, MMM. Lungs: Diminished BS BL, > bases, no rales, ronchi or wheezing. Heart: Regular rate and rhythm; no gallop, rub audible, CABG incision well appearing, SM. Abdomen: soft, NTTP, ND, normal BS, no HSM. Extremities: no cyanosis, clubbing, see skin. Neurological: patient awake, alert, oriented x 3; cognitive function intact; pupils equally reactive to light and accomodation; cranial nerves II-XII grossly normal, moving all 4 extremities except severely limited secondary to recent OR, dressings, strength severely globally decreased. Psychiatric: affect appears normal, no acute evidence of depressive or anxiety feelings. Vitals/I&O's: Vital Signs Temp Pulse Resp BP Pulse Ox 98.0 F 84 16 112/52 L 92 03/06/18 03:22 03/06/18 07:20 03/06/18 06:46 03/06/18 03:22 03/06/18 06:46 Oxygen Flow Rate (L/min) 2 Oxygen Delivery Method Nasal Cannula Weight: 165 lb 5.547 oz Body Mass Index (BMI) 29.2 Intake and Output for Last 24 Hours 03/04/18 03/05/18 03/06/18 23:59 23:59 23:59 Intake Total 2251.4 / 2251.4 2879 / 2879 192 / 192 Output Total 1300 / 1300 1050 / 1050 100 / 100 Balance 951.4 / 951.4 1829 / 1829 92 / 92 Microbiology Past 72 Hours 03/04/18 16:36 Stool C. difficile DNA Amplification - Final 03/04/18 08:45 Stool Enteric Bacteriology - Final Laboratory Results 03/05/18 14:58: Hgb 8.4 L, Hct 28.3 L 03/05/18 15:20: POC Glucose 129 H 03/05/18 20:44: Hgb 7.8 L, Hct 26.3 L 03/05/18 21:32: POC Glucose 162 H 03/05/18 : S.aureus Protein A PCR NEGATIVE, MRSA (PCR) Negative 03/05/18 : S.aureus Protein A PCR NEGATIVE, MRSA (PCR) Negative 03/06/18 02:40: WBC 6.0, RBC 2.76 L, Hgb 7.4 L, Hct 24.9 L, MCV 90.2, MCH 26.8 L , MCHC 29.7 L, RDW 18.0 H, RDW Differential 58.5 H, Plt Count 217, MPV 8.1, Immature Gran % (Auto) 0.000, Neut % (Auto) 79.4 H, Lymph % (Auto) 8.6 L, Garland % (Auto) 11.3 H, Eos % (Auto) 0.7, Baso % (Auto) 0.0, Absolute Neuts (auto) 4.8 , Absolute Lymphs (auto) 0.52 L, Total Counted Not Reportable 03/06/18 02:40: PT 16.2 H, INR 1.3 03/06/18 02:40: Sodium 141, Potassium 4.3, Chloride 103, Carbon Dioxide 33.0 H, Anion Gap 5, BUN 21 H, Creatinine 0.52 L, Estim Creat Clear Calc 44.54, Est GFR (MDRD) Af Amer 149, Est GFR (MDRD) Non-Af 123, BUN/Creatinine Ratio 40.0 H, Glucose 103, Calcium 7.8 L, Prealbumin 5.9 L 03/06/18 07:00: Blood Type A POSITIVE, Antibody Screen NEGATIVE, Crossmatch See Detail 03/06/18 07:26: POC Glucose 66 L 03/06/18 07:43: POC Glucose 57 L 03/06/18 08:04: POC Glucose 69 L 03/06/18 08:24: POC Glucose 70 Current Medications Acetaminophen (Tylenol) 650 mg PO Q6H PRN PRN PRN Reason: Mild Pain (1-3)/Temp > 100.7 F Last Admin: 03/05/18 21:46 Dose: 650 mg Albuterol/Ipratropium (Duoneb) 3 ml INHALATION Q4HWA.RT [facility] Last Admin: 03/06/18 06:45 Dose: 3 ml Ascorbic Acid (Vitamin C) 500 mg PO BIDCM [facility] Last Admin: 03/06/18 07:57 Dose: 500 mg Aspirin (Ecotrin) 81 mg PO DAILY@0800 [facility] Last Admin: 03/06/18 07:58 Dose: 81 mg Bisacodyl (Dulcolax) 5 mg PO DAILY PRN PRN PRN Reason: Constipation Calamine/Phenol (Calmoseptine Ointment) 1 applic TOPICAL TID [facility] PRN Reason: Protocol Last Admin: 03/06/18 05:40 Dose: 1 applicatio Carvedilol (Coreg) 6.25 mg PO BID [facility] Last Admin: 03/05/18 21:41 Dose: 6.25 mg Clopidogrel Bisulfate (Plavix) 75 mg PO DAILY [facility] Last Admin: 03/04/18 10:28 Dose: 75 mg Cyanocobalamin (Vitamin B12) 1,000 mcg PO DAILY@0800 [facility] Last Admin: 03/06/18 07:58 Dose: 1,000 mcg Dextrose (D50w Syringe) 0 gm IV X1 PRN; Protocol PRN Reason: Hypoglycemia Enoxaparin Sodium (Lovenox) 70 mg SC Q12 [facility] Last Admin: 03/05/18 14:15 Dose: Not Given Folic Acid (Folic Acid) 1 mg PO DAILY@0800 [facility] Last Admin: 03/06/18 07:57 Dose: 1 mg Furosemide (Lasix) 40 mg PO DAILY [facility] Last Admin: 03/05/18 17:43 Dose: 40 mg Gabapentin (Neurontin) 600 mg PO TIDCM [facility] Last Admin: 03/06/18 07:58 Dose: 600 mg Glucagon () 1 mg IM .X1 PRN PRN Reason: Hypoglycemia Hydromorphone HCl (Dilaudid Inj) 1 mg IV Q4H PRN PRN PRN Reason: SEVERE PAIN (6-06/26) Cefepime HCl 2 gm/ Sodium (Chloride) 100 mls @ 200 mls/hr IV Q12 [facility] Last Admin: 03/05/18 21:42 Dose: 200 mls/hr Vancomycin HCl 1,250 mg/ (Sodium Chloride) 275 mls @ 183.333 mls/hr IV Q12H [facility] Last Admin: 03/06/18 07:55 Dose: 183.333 mls/hr Insulin Detemir (Levemir (Bkc)) 20 units SC QHS [facility] Last Admin: 03/05/18 21:42 Dose: 20 u Insulin Human Lispro (Humalog Kwikpen (Bkc)) 18 unit SC DAILY@1200 [facility] Last Admin: 03/05/18 15:33 Dose: Not Given Insulin Human Lispro (Humalog Kwikpen (Bkc)) 0 unit SC ACHS [facility] PRN Reason: Protocol Last Admin: 03/06/18 07:31 Dose: Not Given Insulin Human Lispro (Humalog Kwikpen (Bkc)) 18 unit SC DAILY@1700 [facility] Last Admin: 03/05/18 15:34 Dose: Not Given Insulin Human Lispro (Humalog Kwikpen (Bkc)) 22 unit SC BREAKFAST [facility] Last Admin: 03/06/18 07:31 Dose: Not Given Lidocaine (Lidoderm Patch) 1 patch TOPICAL DAILY [facility] PRN Reason: Protocol Last Admin: 03/05/18 15:51 Dose: Not Given Lisinopril (Zestril) 5 mg PO DAILY [facility] Last Admin: 03/05/18 17:42 Dose: 5 mg Loratadine (Claritin) 10 mg PO DAILY [facility] Last Admin: 03/05/18 15:52 Dose: Not Given Magnesium Hydroxide (Milk Of Magnesia) 30 ml PO DAILY PRN PRN PRN Reason: Constipation Melatonin (Melatonin) 3 mg PO QHS [facility] Last Admin: 03/05/18 21:42 Dose: 3 mg Nutritional Formula (Radames - [place] Flavor) 1 packet PO BIDCM [facility] Last Admin: 03/06/18 07:57 Dose: 1 packet Nutritional Formula (Lactose Free) (Glucerna Shake) 120 ml PO 4X/DAY [facility] Last Admin: 03/05/18 21:41 Dose: 120 ml Nystatin (Mycostatin Powder) 1 applic TOPICAL BID [facility] PRN Reason: Protocol Last Admin: 03/05/18 21:41 Dose: 1 applicatio Ondansetron HCl (Zofran) 4 mg IV Q8H PRN PRN PRN Reason: NAUSEA Oxycodone HCl (Oxyir) 5 - 10 mg PO Q4H PRN PRN PRN Reason: PAIN Last Admin: 03/06/18 03:19 Dose: 10 mg Pantoprazole Sodium (Protonix) 40 mg PO DAILY [facility] Last Admin: 03/05/18 17:42 Dose: 40 mg Polysaccharide Iron Complex (Ferrex 150) 150 mg PO BID [facility] Last Admin: 03/05/18 21:42 Dose: 150 mg Psyllium Hydrophilic Mucilloid (Metamucil) 1 packet PO DAILY PRN PRN PRN Reason: CONSTIPATION Senna/Docusate Sodium (Senokot-S, Iqra-Colace) 2 tablet PO BID [facility] Last Admin: 03/05/18 21:43 Dose: Not Given Sodium Chloride () 10 ml IV UD PRN PRN Reason: PICC FLUSH Last Admin: 03/06/18 03:25 Dose: 10 ml Voriconazole (Vfend) 200 mg PO Q12 [facility] Last Admin: 03/05/18 21:42 Dose: 200 mg Warfarin Sodium (Coumadin (Pbkc)) 3 mg PO DAILY@1700 [facility] Last Admin: 03/04/18 17:34 Dose: 3 mg Medical Necessity - Tobacco Use Smoking Status: Former smoker Tobacco Use: Non-smoker Assessment/Plan All Active Problems (Last Reviewed 11/22/17 @ 13:19 by Sherie Alves) Osteomyelitis of left foot (Acute) Pain in right toe(s) (Acute) Cellulitis of right foot (Acute) Abscess of toe of right foot (Acute) Type 2 diabetes mellitus (Acute) Infectious arthritis (Acute) Hypoxia (Acute) Suspected sleep apnea (Acute) Fall (Acute) Community acquired pneumonia (Acute) Rhabdomyolysis (Acute) Acute kidney injury (Acute) The patient is a 67 y/o F w/ PMHx: Obesity, Chronic COPD/Asthma, HTN, HLD, Allergic Rhinitis, ELDER, GERD, Tobacco use recently quit, Gouty Arthritis, Recent RLE Abscess s/p I+D, Noted TCU LLL ([facility] Osteo, suspect may be in error and RLE especially since grafts harvested LLE), Recent LUE DVT, Recent CAD s/p CABG [facility] 3-vessel 02/15/18 who presents to the [facility] ED from TCU on 03/03/18 w/ onset fever and mild hypoxia while in TCU. (1) Fever suspected Secondary to Coccyx Decubitous Ulcer Stage IV and Potentially Infected LLE Anteriomedial and Left Medial Thigh Hematoma: Initially upon admission suspected secondary to RLE recently noted osteomyelitis ; however, upon further evaluation more concern for above noted. Patient transitioned per ID recommendation to vanc, cefepime and voriconazole, Dr. Ivory consulted for evaluation of the LLE as concern for harvest incisions and also assessment of possible infected hematoma, OR 03/05/18 AM with extensive debridements with I&D and excisional debridement of hematoma of the left anterior medial leg and left medial thigh secondary to extension of hematoma upward in addition to excision of coccyx pressure sore stage IV with noted underlying muscle necrosis, wound RN consulted with planned VAC placement, postoperative anemia acute on chronic with 2 unit PRBC to be ordered now, will await wound RN evaluation of sites to assure no bleeding prior to restart Lovenox and Coumadin bridge as well as Plavix which was reviewed with Dr. Ivory. Conroy currently in place secondary to extensive nature of coccyx debridement. Encourage out of bed, barrier cream, pain regimen, PT, OT, CM for plan discharge to TCU once clinically appropriate. Will await operative cultures to determine alterations to antibiotic therapy, possibly transition back to Ancef and voriconazole for osteomyelitis of the right great toe and foot. (2) Acute on Chronic Anemia/Fe Deficiency anemia secondary to Operative Blood Loss: Hemoglobin postoperatively 7.4, given recent cardiac interventions to unit PRBC ordered and pending for demonstration, wound RN will closely evaluate regions following dressing takedown prior to initiating Plavix, Coumadin and Lovenox bridge which was discussed with Dr. Ivory. Patient is high risk given recent CABG and DVT if necessary to remain off these agents. Continue iron supplementation. (3) CAD: Cardiac catheterization [facility] 02/06 w/ severe triple-vessel disease with distal left main disease and preserved ejection fraction of 55% w/ moderate mitral regurgitation, incision well appearing, currently holding Plavix given recent severity of operative intervention and anemia but given recent CABG will need to restart once dressing takedown this morning. Continue aspirin, Coreg, lisinopril. (3) Recent LUE DVT: Early holding Coumadin w/ lovenox bridge in [place] to recent severity of operative intervention needs and anemia, 03/05/18 INR 1.4-->03/06/18 INR 1.3, held dose 03/05/18 secondary to OR. Pending dressing takedown and plan to restart if appearance appropriate as discussed with Dr. Ivory and wound RN. (4) Recent UTI, Noted on TCU Note: Unclear organism in outside hospital, d/c conroy, however, extensive debridement of the coccyx region performed therefore Conroy replaced on 03/05/18. (5) Hypertension: Continue home regimen including lisinopril, Coreg, Lasix, PRN hydralazine. (6) Hyperlipidemia: Continue home statin regimen. (7) Diabetes mellitus type II w/ neuropathy: Hold oral home regimen, continue home insulin regimen, ADA diet, accu checks w/ ISS, continue home gabapentin regimen. (8) Chronic COPD/Asthma: ATC duonebs, PRN albuterol, HOB, IS parameters, continue home Singulair regimen. (9) Hx Tobacco Abuse: Encouraged continued cessation. (10) Obesity: Weight loss and lifestyle changes encouraged. (11) ELDER: CPAP nightly. (12) GERD: PPI. (13) DVT Prophylaxis: SCDs, hold bridge pending dressing takedown this AM, restart if well appearing given high risk w/ recent DVT and CABG. (14) CODE status: Full Code. Code Visit Inpatient E&M: 27742 Subs Hosp L3
[2018-03-06] MEDS: Carvedilol 6.25 MG Tablet PO (09:18)
[2018-03-06] MEDS: Lidocaine 5% Patch 1 PATCH TOPICAL (09:18)
[2018-03-06] MEDS: Furosemide 40 MG Tablet PO (09:19)
[2018-03-06] MEDS: Pantoprazole Sodium 40 MG Tablet PO (09:19)
[2018-03-06] MEDS: Loratadine 10 MG Tablet PO (09:19)
[2018-03-06] MEDS: Iron Polysaccharide Complex 150 MG CAPSULE PO ×2 (09:20→22:27)
[2018-03-06] MEDS: Lisinopril 5 MG Tablet PO (09:20)
[2018-03-06] MEDS: Voriconazole 200 MG Tablet PO ×2 (09:20→22:26)
[2018-03-06] MEDS: Nystatin Powder 15gm Bottle 1 APPLIC TOPICAL ×2 (09:21→22:36)
[2018-03-06] MEDS: Glucerna Shake 120 ML LIQUID PO ×3 (09:23→22:39)
[2018-03-06] MEDS: Enoxaparin 80 MG/0.8 ML Syringe 70 MG SC ×2 (11:47→22:26)
[2018-03-06] MEDS: Insulin Lispro 100 UNIT/ML INSULN.PEN SC ×3 (11:48→22:34)
[2018-03-06] MEDS: Clopidogrel Bisulfate 75 MG Tablet PO (11:49)
--- NOTE | 2018-03-06 11:56 | NURSING ---
wound photo: left medial thigh
--- NOTE | 2018-03-06 11:56 | NURSING ---
wound photo: left medial lower leg
[2018-03-06] MEDS: HYDROmorphone 1 MG/ML Syringe IV (11:57)
--- NOTE | 2018-03-06 11:57 | NURSING ---
wound photo: left lateral lower leg
--- NOTE | 2018-03-06 11:57 | NURSING ---
wound photo: right great toe
--- NOTE | 2018-03-06 11:58 | NURSING ---
wound photo: sacrum
[2018-03-06 12:01] LABS: Bedside Glucose 171 mg/dL (70-110)
--- NOTE | 2018-03-06 12:13 | CASEMGMT ---
Social Work Note RN Julia and NEW Erazo updated this worker that Dr. Nielson is agreeable for pt to go to LTACH at discharge. SW updated NEW Guzman of this. NEW Guzman states understanding and she will meet with pt. Plan: LTACH vs. TCU Angely Juan [employer]ICATION[employer] ENGINE[employer], [employer]ER
--- NOTE | 2018-03-06 12:46 | OP.PCM_ITS ---
Report of Operation Date of Procedure: 03/05/18 Pre-Operative Diagnosis: 1. Hematoma left anteromedial leg with skin necrosis. 2. Sacral pressure sore, Unstageable, with skin necrosis. 3. Recent CABG. 4. Diabetes mellitus. 5. Former smoker. Post-Operative Diagnosis: 1. Hematoma left anteromedial leg with skin necrosis. 2. Sacral pressure sore, Stage IV, with underlying muscle necrosis. 3. Hematoma left medial thigh. 3. Recent CABG. 4. Diabetes mellitus. 5. Former smoker. Surgery/Procedure Performed:: 1. Surgical preparation left anteromedial leg with incison and drainage and excisional debridement hematoma with skin necrosis (286 cm2). 2. Excision sacral pressure sore, Stage IV, with underlying muscle necrosis (64 cm2). 3. Surgical preparation left medial thigh with incision and drainage and excisional debridement hematoma (52 cm2). Description of Surgical Findings:: The patient is a 67 year old F who was admitted from TCU because of fever and hypoxia. She had a CABG on 02/15/17 in [place]. She lives in [place] and was sent to TCU post discharge. She has recent history of right osteomyelitis and aspergillus and was sent to TCU on Ancef and Voriconazole. It was noted she had a hematoma left leg in the area of the vein harvesting with skin necrosis. She also has a sacral pressure sore that is unstageable at the present time with overlying skin necrosis. Infectious Diseases is involved and her antibiotics have been changed to Vancomycin, Cefepime, and Voriconazole. I was asked to evaluate this patient for surgical options for treatment. Patient was informed of the risks and complications of the procedure including alternatives to surgery. These were discussed with the patient personally. Patient voices understanding and wishes to proceed. I used Gerald absorbable hemostat (2 vials, one in the left leg and one in the sacral area). Reference Number - [id number]. Lot Number - [id number]. Expiration - October 14, 2022. Size of defect left anteromedial leg - 26 x 11 x 1.5 cm. Size of defect left medial thigh - 13 x 4 x 3 cm. Size of defect sacral area - 8 x 8 x 2 cm. pilot manager: None Type of Anesthesia:: General Specimen's removed: 1. Hematoma with skin necrosis left anteromedial leg and left medial thigh to Pathology and Microbiology. 2. MRSA Wound DNA by PCR left leg. 3. Sacral pressure sore soft tissue to Pathology and Microbiology. 4. MRSA Wound DNA by PCR sacral area. Drains: None. Estimated Blood Loss (mL): 250 ml. Description of Procedure: Patient was taken to OR in supine position and was placed under general anesthesia. She was then placed in the lateral position and her sacral area and left leg were prepped and draped in the usual fashion. SCD's were placed for DVT prophylaxis. Perioperative antibiotics were given intravenously. Using a scalpel, I excised the sacral pressure around the area of skin necrosis down through the subcutaneous tissue until the underlying muscle was seen. There was evidence of muscle necrosis which was excised. The bone was palpable but not exposed. A layer of viable soft tissue was covering the underlying bone. So no bone was removed today. Half the soft tissue was sent to Pathology for analysis to rule out carcinoma and half the soft tissue was sent to Microbiology for culture. A positive culture may necessitate antibiotic modification. The wound was irrigated with saline. Hemostasis was obtained with electrocautery. The size of the sacral pressure sore defect after excision including necrotic muscle was 8 x 8 x 2 cm. I sprayed Gerald absorbable hemostat into the sacral wound to help minimize drainage issues. Mepitel nonadherent dressing was applied to the wound followed by Kerlix gauze with Betadine followed by dry Kerlix gauze and ABD pad compression dressing. I then made an incision into the hematoma left leg with overlying skin necrosis. A large hematoma clot was evacuated along with some blood. Dissection went down to the muscular fascia. The fascia and muscle were inflamed but viable and there was no evidence of necrotizing process. Some of the fascia was debrided with the rest of the tissue. Hemostasis obtained with electrocautery. The overlying necrotic skin was sharply excised and debrided to make the wound care easier and to minimize infection. I then temporarily placed a sterile towel over the wound as it was difficult to get access to the medial leg where the incisions were located from the current lateral position. At this time the patient was placed in the supine position and the left leg was prepped and draped in the usual fashion. Palpating the incision on the medial aspect of the left leg showed a hematoma with drainage through various areas of the incision. There was some necrotic skin edges as well. The sutures were removed. A large hematoma clot was evacuated along with some blood. Dissection went down to the muscular fascia. The fascia and muscle were inflamed but viable and there was no evidence of necrotizing process. Some of the fascia was debrided with the rest of the tissue. Hemostasis was obtained with electrocautery. There was some fat necrosis that was sharply excised and debrided. The necrotic skin edges were also sharply excised and debrided. The remaining tissue showed good bleeding and viability. There was some bruised skin with a very small skin bridge between the incision wound and the recently debrided hematoma wound. That small bruised skin bridge was also excised to make it one wound instead of two wounds. It will make the VAC placement easier. The size of the complex hematoma wound left anteromedial leg was 26 x 11 x 1.5 cm. There was no exposed bone. When I was getting ready to dress the left leg wound, I checked the proximal aspect of the wound and noted there was a large extension of the hematoma into the medial thigh extending up the groin area. It was suctioned out. However it would be difficult to pack the wound postop which would increase risk of infection. Therefore a separate incision was made in the left medial thigh. This included some bruised skin as well that sharply excised and debrided. Dissection went down to the muscular fascia. The fascia and muscle were inflamed but viable as there was no evidence of necrotizing process. Some of the fascia was debrided with the rest of the tissue. Hemostasis was obtained with electrocautery. Both the left anteromedial leg and left medial thigh wounds were irrigated with saline. The size of the complex hematoma wound left medial thigh was 13 x 4 x 3 cm. I then sprayed Gerald absorbable hemostat into both the leg and thigh wounds to help minimize drainage issues. I then dressed both the leg and thigh wounds with Mepitel nonadherent dressing followed by Kerlix gauze and Betadine followed by dry Kerlix gauze and ABD pads and compression ERAN wraps to help minimize bleeding issues postop. Tissue that was removed was sent to Pathology for analysis to rule out carcinoma as well as to Microbiology for culture. A positive culture may necessitate antibiotic modification. Patient tolerated the procedure well and was sent to PACU in satisfactory condition. She will be sent upstairs for continued postop care. She will continue IV antibiotics. Also encourage nutritional supplementation with protein to help the healing process. Will have her evaluated for an ECF since her wounds are too complex for TCU at this time. After discharge, can followup at the [facility]. If there is a plateau in the healing process, can proceed with delayed closure with skin grafting. For the sacral pressure sore, fasciocutaneous flaps can also be used. Don't want to use muscles that have to be detached since she is still ambulatory, even though it is done slowly. Grafts/Implants Used: None. - Complications None. - Admit VTE Documentation VTE Present on Admission: Yes - Patient is on Coumadin after recent CABG and left arm DVT. VTE Mechan Device Prophylaxis: SCD's VTE Pharm Prophylaxis ordered?: Yes Code Visit Surgery Charges CPT - 45648 ICD-10 - S80.12xA, I96, Z95.1, E11.9, Z87.891 94503 S81.802A, S80.12xA, I96, Z95.1, E11.9, Z87.891 75151 S81.802A, S80.12xA, I96, Z95.1, E11.9, Z87.891 84976 S81.802A, S80.12xA, I96, Z95.1, E11.9, Z87.891 29472 S71.102A, S70.12xA, Z95.1, E11.9, Z87.891 76160 S70.12xA, Z95.1, E11.9, Z87.891 03481 L89.154, I96, Z95.1, E11.9, Z87.891
--- NOTE | 2018-03-06 13:26 | CASEMGMT ---
RN CM Note. Referral received for LTAC evaluation by physician. Attempted to discuss LTAC options with pt, however she is sleepy, arouses to verbal stimulus, but falls back asleep. unable to participate at this time. -LTAC Packet printed. -Will attempt to see pt again later today to discuss LTAC referral. Zane VERAS RN ACM
--- NOTE | 2018-03-06 13:46 | PCM.PN.ID ---
Subjective: Pain controlled s/p debridement. Low fever this afternoon. Feeling ok. - Physical Exam General: Alert, Cooperative Lungs: Clear to auscultation, Normal air movement Cardiovascular: Regular rate, Regular Rhythm Abdomen: Soft, Non Tender, Non-Distended Skin: Ulcer/ Wound - reviewed photos Vital Signs Temp Pulse Resp BP Pulse Ox 100.3 F H 94 16 105/52 L 94 03/06/18 13:10 03/06/18 13:10 03/06/18 13:10 03/06/18 13:10 03/06/18 13:10 Oxygen Flow Rate (L/min) 2 Oxygen Delivery Method Nasal Cannula Weight: 75 kg Body Mass Index (BMI) 29.2 Intake and Output for Last 24 Hours 03/04/18 03/05/18 03/06/18 23:59 23:59 23:59 Intake Total 2251.4 / 2251.4 2879 / 2879 992 / 992 Output Total 1300 / 1300 1050 / 1050 275 / 275 Balance 951.4 / 951.4 1829 / 1829 717 / 717 Microbiology Past 72 Hours 03/05/18 Unknown Gram Stain - Final Biopsy - Leg, Left Wound Culture - Preliminary No growth-Final to follow 03/05/18 Unknown Gram Stain - Final Biopsy - Other Wound Culture - Preliminary GNR lactose loading unit operator powder charging 03/04/18 16:36 C. difficile DNA Amplification - Final Stool 03/04/18 08:45 Enteric Bacteriology - Final Stool Laboratory Tests Past 24 Hrs 03/05/18 03/05/18 03/05/18 14:58 20:44 Unknown WBC RBC Hgb 8.4 L 7.8 L Hct 28.3 L 26.3 L MCV MCH MCHC RDW RDW Differential Plt Count MPV Immature Gran % (Auto) Neut % (Auto) Lymph % (Auto) [place] % (Auto) Eos % (Auto) Baso % (Auto) Absolute Neuts (auto) Absolute Lymphs (auto) Total Counted PT INR Sodium Potassium Chloride Carbon Dioxide Anion Gap BUN Creatinine Estim Creat Clear Calc Est GFR (MDRD) Af Amer Est GFR (MDRD) Non-Af BUN/Creatinine Ratio Glucose Calcium Prealbumin S.aureus Protein A PCR NEGATIVE MRSA (PCR) Negative Blood Type Antibody Screen Crossmatch 03/05/18 03/06/18 03/06/18 Unknown 02:40 02:40 WBC 6.0 RBC 2.76 L Hgb 7.4 L Hct 24.9 L MCV 90.2 MCH 26.8 L MCHC 29.7 L RDW 18.0 H RDW Differential 58.5 H Plt Count 217 MPV 8.1 Immature Gran % (Auto) 0.000 Neut % (Auto) 79.4 H Lymph % (Auto) 8.6 L [place] % (Auto) 11.3 H Eos % (Auto) 0.7 Baso % (Auto) 0.0 Absolute Neuts (auto) 4.8 Absolute Lymphs (auto) 0.52 L Total Counted Not Reportable PT 16.2 H INR 1.3 Sodium Potassium Chloride Carbon Dioxide Anion Gap BUN Creatinine Estim Creat Clear Calc Est GFR (MDRD) Af Amer Est GFR (MDRD) Non-Af BUN/Creatinine Ratio Glucose Calcium Prealbumin S.aureus Protein A PCR NEGATIVE MRSA (PCR) Negative Blood Type Antibody Screen Crossmatch 03/06/18 03/06/18 02:40 07:00 WBC RBC Hgb Hct MCV MCH MCHC RDW RDW Differential Plt Count MPV Immature Gran % (Auto) Neut % (Auto) Lymph % (Auto) [place] % (Auto) Eos % (Auto) Baso % (Auto) Absolute Neuts (auto) Absolute Lymphs (auto) Total Counted PT INR Sodium 141 Potassium 4.3 Chloride 103 Carbon Dioxide 33.0 H Anion Gap 5 BUN 21 H Creatinine 0.52 L Estim Creat Clear Calc 44.54 Est GFR (MDRD) Af Amer 149 Est GFR (MDRD) Non-Af 123 BUN/Creatinine Ratio 40.0 H Glucose 103 Calcium 7.8 L Prealbumin 5.9 L S.aureus Protein A PCR MRSA (PCR) Blood Type A POSITIVE Antibody Screen NEGATIVE Crossmatch See Detail POC Glucose 03/06/18 03/06/18 03/06/18 11:46 08:24 08:04 POC Glucose 171 H 70 69 L 03/06/18 03/06/18 03/05/18 07:43 07:26 21:32 POC Glucose 57 L 66 L 162 H 03/05/18 15:20 POC Glucose 129 H Medical Necessity - Tobacco Use Smoking Status: Former smoker Tobacco Use: Non-smoker Route of nutrition/ use of supplements: [] Nutritional Intake: [] IV Site: [] Allen Catheter: [] - Assessment/Plan Antibiotics: [] Assessment/Plan: [] Fever with hypoxia - recent surgery for R foot osteo, cxs from [facility] (+) for CoNS and aspergillus, discharged to TCU on ancef/vori. Now s/p debridement 03/[address] Ivory of sacral ulcer with necrotic tissue seen and LLE for hematoma around vein donor site. Cxs pending. Cont vanc and vori. Will change cefepime to zosyn for anaerobic coverage given depth of sacral involvement Will follow, d/w Dr. Nielson
--- NOTE | 2018-03-06 14:34 | CASEMGMT ---
NEW Note: second attempt to discuss LTAC with pt. She is arousable but falls back to sleep quickly. Unable to participate fully in conversation @ this time. Will defer until tomorrow am. Zane VERAS RN ACM
[2018-03-06] MEDS: Acetaminophen 325 MG Tablet 650 MG PO (15:26)
[2018-03-06 15:30] LABS: Bedside Glucose 146 mg/dL (70-110)
[2018-03-06] MEDS: Piperacil/Tazobactam 3.375 GM/50 ML ML IV ×2 (15:31→22:26)
[2018-03-06 16:29] LABS: Lactic Acid 0.7 mmol/L (0.4-2.0)
[2018-03-06 16:50] LABS: Bedside Glucose 169 mg/dL (70-110)
--- NOTE | 2018-03-06 19:35 | PCM.PN.SRG ---
Subjective: Postop #1 Patient is resting quietly. VAC is applied. - Physical Exam General: Alert, Oriented x3 HEENT: PERRLA, EOMI Neck: Supple Skin: Ulcer/ Wound - multiple wounds are stable. No further evidence of bleeding. VAC applied today., Incision - Sternal incision is dry and intact. Neurological: Cranial nerves II-XII grossly intact Psych/Mental Status: Normal Affect, Appropriate Vital Signs Temp Pulse Resp BP Pulse Ox 99.6 F H 87 18 100/49 L 94 03/06/18 18:30 03/06/18 18:30 03/06/18 18:30 03/06/18 18:30 03/06/18 18:30 Oxygen Flow Rate (L/min) 2 Oxygen Delivery Method Nasal Cannula Weight: 165 lb 5.547 oz Body Mass Index (BMI) 29.2 Intake and Output for Last 24 Hours 03/04/18 03/05/18 03/06/18 23:59 23:59 23:59 Intake Total 2251.4 / 2251.4 2879 / 2879 2903 / 2903 Output Total 1300 / 1300 1050 / 1050 475 / 475 Balance 951.4 / 951.4 1829 / 1829 2428 / 2428 Microbiology Past 72 Hours 03/05/18 Unknown Gram Stain - Final Biopsy - Leg, Left Wound Culture - Preliminary No growth-Final to follow 03/05/18 Unknown Gram Stain - Final Biopsy - Other Wound Culture - Preliminary GNR lactose soap inspector 03/04/18 16:36 C. difficile DNA Amplification - Final Stool 03/04/18 08:45 Enteric Bacteriology - Final Stool Laboratory Tests Past 24 Hrs 03/05/18 03/06/18 03/06/18 20:44 02:40 02:40 WBC 6.0 RBC 2.76 L Hgb 7.8 L 7.4 L Hct 26.3 L 24.9 L MCV 90.2 MCH 26.8 L MCHC 29.7 L RDW 18.0 H RDW Differential 58.5 H Plt Count 217 MPV 8.1 Immature Gran % (Auto) 0.000 Neut % (Auto) 79.4 H Lymph % (Auto) 8.6 L [place] % (Auto) 11.3 H Eos % (Auto) 0.7 Baso % (Auto) 0.0 Absolute Neuts (auto) 4.8 Absolute Lymphs (auto) 0.52 L Total Counted Not Reportable PT 16.2 H INR 1.3 Sodium Potassium Chloride Carbon Dioxide Anion Gap BUN Creatinine Estim Creat Clear Calc Est GFR (MDRD) Af Amer Est GFR (MDRD) Non-Af BUN/Creatinine Ratio Glucose Lactic Acid Calcium Prealbumin Blood Type Antibody Screen Crossmatch 03/06/18 03/06/18 03/06/18 02:40 07:00 15:30 WBC RBC Hgb Hct MCV MCH MCHC RDW RDW Differential Plt Count MPV Immature Gran % (Auto) Neut % (Auto) Lymph % (Auto) [place] % (Auto) Eos % (Auto) Baso % (Auto) Absolute Neuts (auto) Absolute Lymphs (auto) Total Counted PT INR Sodium 141 Potassium 4.3 Chloride 103 Carbon Dioxide 33.0 H Anion Gap 5 BUN 21 H Creatinine 0.52 L Estim Creat Clear Calc 44.54 Est GFR (MDRD) Af Amer 149 Est GFR (MDRD) Non-Af 123 BUN/Creatinine Ratio 40.0 H Glucose 103 Lactic Acid 0.7 Calcium 7.8 L Prealbumin 5.9 L Blood Type A POSITIVE Antibody Screen NEGATIVE Crossmatch See Detail POC Glucose 03/06/18 03/06/18 03/06/18 16:17 15:25 11:46 POC Glucose 169 H 146 H 171 H 03/06/18 03/06/18 03/06/18 08:24 08:04 07:43 POC Glucose 70 69 L 57 L 03/06/18 03/05/18 07:26 21:32 POC Glucose 66 L 162 H Medical Necessity - Tobacco Use Smoking Status: Former smoker Tobacco Use: Non-smoker Assessment/Plan All Active Problems (Last Reviewed 11/22/17 @ 13:19 by Sherie Alves) Osteomyelitis of left foot (Acute) Pain in right toe(s) (Acute) Cellulitis of right foot (Acute) Abscess of toe of right foot (Acute) Type 2 diabetes mellitus (Acute) Infectious arthritis (Acute) Hypoxia (Acute) Suspected sleep apnea (Acute) Fall (Acute) Community acquired pneumonia (Acute) Rhabdomyolysis (Acute) Acute kidney injury (Acute) 1. Hematoma left anteromedial leg with skin necrosis. 2. Sacral pressure sore, Stage IV, with underlying muscle necrosis. 3. Hematoma left medial thigh. 4. Recent CABG. 5. Diabetes mellitus. 6. Former smoker. 7. s/p surgical preparation left anteromedial leg with incison and drainage and excisional debridement hematoma with skin necrosis (286 cm2) and excision sacral pressure sore, Stage IV, with underlying muscle necrosis (64 cm2) and surgical preparation left medial thigh with incision and drainage and excisional debridement hematoma (52 cm2). 8. Anemia of chronic disease, acute on chronic. Patient has extensive wounds and infected sacral pressure sore. Continue antibiotics with Vancomycin and Voriconazole. The Cefepime was stopped and Zosyn was added. Her sternal incision is dry and intact. She is at increased risk for wound healing problems and sternal wound infection. Will observe closely. If so debridement and muscle flap reconstruction may be necessary. That complex surgery would need to be done at a tertiary center ([facility] where the CABG was done). VAC was applied today. To be changed three times per week at 150 mmHg continuous suction. Prealbumin very low at 5.9. Encourage nutritional supplementation with protein to help the healing process. Her care is too complex to go back to TCU at this time. Recommend a skilled facility. LTAC evaluation in process. Her Hgb this morning was low at 7.4. She had extensive hematoma blood loss and operative blood loss along with IV dilution. Receiving PRBC today.
[2018-03-06 21:21] LABS: Bedside Glucose 159 mg/dL (70-110)
[2018-03-07] VITALS (12 sets, daily range): BP systolic 104–157; BP diastolic 58–65; PULSE 80–98; RESP 16–18; TEMP 36.7–37.3; O2SAT 94–96
[2018-03-07 05:36] LABS: International Normalized Ratio 1.4; Prothrombin Time (Protime)PT. 17.1 SECONDS (11.7-14.9)
[2018-03-07 05:46] LABS: Anion Gap 6 (5-15); BUN 30 mg/dL (7-18); BUN/Creat Ratio 42.8 RATIO (10-20); Calcium,Total 7.7 mg/dL (8.5-10.1); Chloride 101 mmol/L (98-107); EST Glomerular Filtration Rate 88 mL/min (>60); Est Glom Filt Rate - Afr Amer 107 mL/min (>60); Estimated Creatinine Clearance 44.54 ml/min; Glucose 150 mg/dL (74-106); Potassium 4.4 mmol/L (3.5-5.1); Sodium Level 137 mmol/L (136-145)
[2018-03-07] MEDS: Menthol/Lanolin/Calamine/Znox 113 GM Tube 1 APPLIC TOPICAL ×2 (06:01→14:45)
[2018-03-07] MEDS: Piperacil/Tazobactam 3.375 GM/50 ML ML IV (06:01)
[2018-03-07] MEDS: 0.9% NaCl PICC Flush 10 ML IV ×4 (06:02→09:58)
[2018-03-07 06:50] LABS: Absolute Lymphocyte Count 0.58 X10^3/ul (0.83-4.51); Absolute Neutrophil Count 6.9 X10^3/uL (2.0-7.7); Basophil# 0.01 X10^3/uL; Basophil% 0.1 % (0-1); Eosinophil# 0.05 X10^3/uL; Eosinophils% 0.6 % (0-5); Hematocrit 28.9 % (37-47); Hemoglobin 8.7 g/dl (12.0-15.0); Lymphocyte # 0.58 X10^3/ul (4.0); Lymphocyte % 6.8 % (19-41); Mean Corp Hgb Conc 30.1 g/gl (32-36); Mean Corpuscular Hgb 27.4 pg (27.0-32.0); Mean Corpuscular Volume 90.9 fL (81-99); Mean Platelet Vol. 8.3 fl (6.2-12.0); Monocyte# 0.99 X10^3/uL; Monocyte% 11.6 % (0-10); Neutrophil % 80.7 % (47-70); Platelet Count 229 K/mm3 (150-450); RBC Distribution Width CV 17.4 % (11.6-14.6); RBC Distribution Width SD 54.6 fl (35.1-43.9); Red Blood Count 3.18 M/mm3 (4.2-5.4); White Blood Count 8.6 K/mm3 (4.4-11.0)
[2018-03-07 06:53] LABS: Differential Indicated SCAN CRITERIA MET; POSITIVE COUNT NO; POSITIVE DIFFERENTIAL YES; POSITIVE MORPHOLOGY NO
[2018-03-07 06:56] LABS: Bedside Glucose 124 mg/dL (70-110)
[2018-03-07] MEDS: Folic Acid 1 MG Tablet PO (08:13)
[2018-03-07] MEDS: Gabapentin 600 MG Tablet PO ×3 (08:13→17:08)
[2018-03-07] MEDS: Ascorbic Acid 500 MG Tablet PO ×2 (08:14→17:08)
[2018-03-07] MEDS: Cyanocobalamin 500 MCG Tablet 1000 MCG PO (08:15)
[2018-03-07] MEDS: Aspirin E.C. 81 MG Tablet PO (08:15)
[2018-03-07 08:30] LABS: Bedside Glucose 117 mg/dL (70-110)
[2018-03-07 09:25] LABS: Vancomycin, Trough Level 21.6 ug/mL (5.0-15.0)
[2018-03-07] MEDS: oxyCODONE 5 MG Tablet PO ×2 (09:54→22:14)
[2018-03-07] MEDS: Glucerna Shake 120 ML LIQUID PO ×4 (09:54→22:17)
[2018-03-07] MEDS: Carvedilol 6.25 MG Tablet PO ×2 (09:54→22:18)
[2018-03-07] MEDS: Lidocaine 5% Patch 1 PATCH TOPICAL (09:54)
[2018-03-07] MEDS: Pantoprazole Sodium 40 MG Tablet PO (09:55)
[2018-03-07] MEDS: Loratadine 10 MG Tablet PO (09:55)
[2018-03-07] MEDS: Iron Polysaccharide Complex 150 MG CAPSULE PO ×2 (09:55→22:14)
[2018-03-07] MEDS: Furosemide 40 MG Tablet PO (09:55)
[2018-03-07] MEDS: Clopidogrel Bisulfate 75 MG Tablet PO (09:56)
[2018-03-07] MEDS: Voriconazole 200 MG Tablet PO ×2 (09:56→22:13)
[2018-03-07] MEDS: Nystatin Powder 15gm Bottle 1 APPLIC TOPICAL ×2 (09:56→22:15)
[2018-03-07] MEDS: Lisinopril 5 MG Tablet PO (09:57)
[2018-03-07] MEDS: Enoxaparin 80 MG/0.8 ML Syringe 70 MG SC ×2 (09:57→22:16)
--- NOTE | 2018-03-07 10:28 | PCM.PN.HOSP ---
Subjective: Patient overnight no acute events per self and per nursing report. With improvement of vital signs following PRBC administration in addition to improve mental status following de-escalation of IV narcotic therapy. Some concern day prior for possible sepsis however patient as noted vital signs improved and mental status improved following IV narcotic therapy alterations. Fever did occur during PRBC administration but patient has been afebrile since evening prior now. Patient denies chills, nausea, emesis, abdominal pain, chest pain or dyspnea. Still loose stools but negative c-diff assay, likely secondary to abx with changes today, monitor for improvement. Objective: Physical Examination: General: awake, alert, oriented x 3 and cooperative, seated upright in bed, NAD. Skin: Diffuse thorax and extremity ecchymoses various staged, right lower extremity w/ dressing in place (great toe wounds with no drainage), left lower extremity w/ VAC in place (status post I&D and excisional debridement of left anterior medial leg hematoma with skin necrosis 286 cm2 and left medial thigh with I&D and excisional debridement hematoma which extended upward 52 cm2), midline chest CABG incision well-appearing, coccyx with stage IV ulceration upon presentation w/ now VAC in place (s/p excisional debridement with noting underlying tissue necrosis 64 cm2). HEENT: AT/NC, EOMI, PERRLA, MMM. Lungs: Diminished BS BL, > bases, no rales, ronchi or wheezing. Heart: Regular rate and rhythm; no gallop, rub audible, CABG incision well appearing, SM. Abdomen: soft, NTTP, ND, normal BS, no HSM. Extremities: no cyanosis, clubbing, see skin. Neurological: patient awake, alert, oriented x 3; cognitive function intact; pupils equally reactive to light and accomodation; cranial nerves II-XII grossly normal, moving all 4 extremities except severely limited secondary to recent OR, dressings, strength severely globally decreased. Psychiatric: affect appears normal, no acute evidence of depressive or anxiety feelings. Vitals/I&O's: Vital Signs Temp Pulse Resp BP Pulse Ox 98.7 F 98 18 157/65 H 95 03/07/18 09:50 03/07/18 09:50 03/07/18 09:50 03/07/18 09:50 03/07/18 09:50 Oxygen Flow Rate (L/min) 2 Oxygen Delivery Method Nasal Cannula Weight: 165 lb 5.547 oz Body Mass Index (BMI) 29.2 Intake and Output for Last 24 Hours 03/05/18 03/06/18 03/07/18 23:59 23:59 23:59 Intake Total 2879 / 2879 2903 / 2903 1046 / 1046 Output Total 1050 / 1050 475 / 475 500 / 500 Balance 1829 / 1829 2428 / 2428 546 / 546 Microbiology Past 72 Hours 03/05/18 Unknown Biopsy - Other Gram Stain - Final 03/05/18 Unknown Biopsy - Other Wound Culture - Preliminary Escherichia coli 03/05/18 Unknown Biopsy - Other Anaerobic Culture - Preliminary Checking for anaerobes, further studies to follow. 03/05/18 Unknown Biopsy - Leg, Left Gram Stain - Final 03/05/18 Unknown Biopsy - Leg, Left Wound Culture - Preliminary No growth-Final to follow 03/05/18 Unknown Biopsy - Leg, Left Anaerobic Culture - Preliminary No growth in 48 hours. 03/04/18 16:36 Stool C. difficile DNA Amplification - Final 03/04/18 08:45 Stool Enteric Bacteriology - Final Laboratory Results 03/06/18 07:00: Blood Type A POSITIVE, Antibody Screen NEGATIVE, Crossmatch See Detail 03/06/18 11:46: POC Glucose 171 H 03/06/18 15:25: POC Glucose 146 H 03/06/18 15:30: Lactic Acid 0.7 03/06/18 16:17: POC Glucose 169 H 03/06/18 21:12: POC Glucose 159 H 03/07/18 05:10: WBC 8.6, RBC 3.18 L, Hgb 8.7 L, Hct 28.9 L, MCV 90.9, MCH 27.4, MCHC 30.1 L, RDW 17.4 H, RDW Differential 54.6 H, Plt Count 229, MPV 8.3, Immature Gran % (Auto) 0.200, Neut % (Auto) 80.7 H, Lymph % (Auto) 6.8 L, [place] % (Auto) 11.6 H, Eos % (Auto) 0.6, Baso % (Auto) 0.1, Absolute Neuts (auto) 6.9, Absolute Lymphs (auto) 0.58 L, Total Counted Not Reportable 03/07/18 05:10: PT 17.1 H, INR 1.4 03/07/18 05:10: Sodium 137, Potassium 4.4, Chloride 101, Carbon Dioxide 30.0, Anion Gap 6, BUN 30 H, Creatinine 0.70, Estim Creat Clear Calc 44.54, Est GFR (MDRD) Af Amer 107, Est GFR (MDRD) Non-Af 88, BUN/Creatinine Ratio 42.8 H, Glucose 150 H, Calcium 7.7 L 03/07/18 06:35: POC Glucose 124 H 03/07/18 08:11: POC Glucose 117 H 03/07/18 08:34: Vancomycin Trough 21.6 H Current Medications Acetaminophen (Tylenol) 650 mg PO Q4H PRN PRN PRN Reason: fever, pain Albuterol/Ipratropium (Duoneb) 3 ml INHALATION Q4HWA.RT [facility] Last Admin: 03/07/18 07:10 Dose: Not Given Ascorbic Acid (Vitamin C) 500 mg PO BIDCM [facility] Last Admin: 03/07/18 08:14 Dose: 500 mg Aspirin (Ecotrin) 81 mg PO DAILY@0800 [facility] Last Admin: 03/07/18 08:15 Dose: 81 mg Bisacodyl (Dulcolax) 5 mg PO DAILY PRN PRN PRN Reason: Constipation Calamine/Phenol (Calmoseptine Ointment) 1 applic TOPICAL TID [facility] PRN Reason: Protocol Last Admin: 03/07/18 06:01 Dose: 1 applicatio Carvedilol (Coreg) 6.25 mg PO BID [facility] Last Admin: 03/07/18 09:54 Dose: 6.25 mg Clopidogrel Bisulfate (Plavix) 75 mg PO DAILY [facility] Last Admin: 03/07/18 09:56 Dose: 75 mg Cyanocobalamin (Vitamin B12) 1,000 mcg PO DAILY@0800 [facility] Last Admin: 03/07/18 08:15 Dose: 1,000 mcg Dextrose (D50w Syringe) 0 gm IV X1 PRN; Protocol PRN Reason: Hypoglycemia Enoxaparin Sodium (Lovenox) 70 mg SC Q12 [facility] Last Admin: 03/07/18 09:57 Dose: 70 mg Folic Acid (Folic Acid) 1 mg PO DAILY@0800 [facility] Last Admin: 03/07/18 08:13 Dose: 1 mg Furosemide (Lasix) 40 mg PO DAILY [facility] Last Admin: 03/07/18 09:55 Dose: 40 mg Gabapentin (Neurontin) 600 mg PO TIDCM [facility] Last Admin: 03/07/18 08:13 Dose: 600 mg Glucagon () 1 mg IM .X1 PRN PRN Reason: Hypoglycemia Hydromorphone HCl (Dilaudid Inj) 0.5 mg IV Q4H PRN PRN PRN Reason: SEVERE PAIN (6-10/10) Meropenem 500 mg/ Sodium (Chloride) 60 mls @ 100 mls/hr IV Q8 [facility] Insulin Detemir (Levemir (Bkc)) 20 units SC QHS [facility] Last Admin: 03/06/18 22:40 Dose: 20 u Insulin Human Lispro (Humalog Kwikpen (Bkc)) 18 unit SC DAILY@1200 [facility] Last Admin: 03/06/18 11:48 Dose: Not Given Insulin Human Lispro (Humalog Kwikpen (Bkc)) 0 unit SC ACHS [facility] PRN Reason: Protocol Last Admin: 03/07/18 08:14 Dose: Not Given Insulin Human Lispro (Humalog Kwikpen (Bkc)) 18 unit SC DAILY@1700 [facility] Last Admin: 03/06/18 16:18 Dose: Not Given Insulin Human Lispro (Humalog Kwikpen (Bkc)) 22 unit SC BREAKFAST [facility] Last Admin: 03/07/18 08:14 Dose: Not Given Lidocaine (Lidoderm Patch) 1 patch TOPICAL DAILY [facility] PRN Reason: Protocol Last Admin: 03/07/18 09:54 Dose: 1 patch Lisinopril (Zestril) 5 mg PO DAILY [facility] Last Admin: 03/07/18 09:57 Dose: 5 mg Loratadine (Claritin) 10 mg PO DAILY [facility] Last Admin: 03/07/18 09:55 Dose: 10 mg Magnesium Hydroxide (Milk Of Magnesia) 30 ml PO DAILY PRN PRN PRN Reason: Constipation Melatonin (Melatonin) 3 mg PO QHS [facility] Last Admin: 03/07/18 00:01 Dose: Not Given Nutritional Formula (Radames - Walsh Flavor) 1 packet PO BIDCM [facility] Last Admin: 03/07/18 08:13 Dose: 1 packet Nutritional Formula (Lactose Free) (Glucerna Shake) 120 ml PO 4X/DAY [facility] Last Admin: 03/07/18 09:54 Dose: 120 ml Nystatin (Mycostatin Powder) 1 applic TOPICAL BID [facility] PRN Reason: Protocol Last Admin: 03/07/18 09:56 Dose: 1 applicatio Ondansetron HCl (Zofran) 4 mg IV Q8H PRN PRN PRN Reason: NAUSEA Oxycodone HCl (Oxyir) 5 - 10 mg PO Q4H PRN PRN PRN Reason: PAIN Last Admin: 03/07/18 09:54 Dose: 5 mg Pantoprazole Sodium (Protonix) 40 mg PO DAILY [facility] Last Admin: 03/07/18 09:55 Dose: 40 mg Polysaccharide Iron Complex (Ferrex 150) 150 mg PO BID [facility] Last Admin: 03/07/18 09:55 Dose: 150 mg Psyllium Hydrophilic Mucilloid (Metamucil) 1 packet PO DAILY PRN PRN PRN Reason: CONSTIPATION Senna/Docusate Sodium (Senokot-S, Iqra-Colace) 2 tablet PO BID [facility] Last Admin: 03/07/18 09:56 Dose: Not Given Sodium Chloride () 10 ml IV UD PRN PRN Reason: PICC FLUSH Last Admin: 03/07/18 09:58 Dose: 10 ml Voriconazole (Vfend) 200 mg PO Q12 [facility] Last Admin: 03/07/18 09:56 Dose: 200 mg Warfarin Sodium (Coumadin (Pbkc)) 3 mg PO DAILY@1700 [facility] Last Admin: 03/06/18 16:19 Dose: 3 mg Medical Necessity - Tobacco Use Smoking Status: Former smoker Tobacco Use: Non-smoker Assessment/Plan All Active Problems (Last Reviewed 11/22/17 @ 13:19 by Sherie Alves) Osteomyelitis of left foot (Acute) Pain in right toe(s) (Acute) Cellulitis of right foot (Acute) Abscess of toe of right foot (Acute) Type 2 diabetes mellitus (Acute) Infectious arthritis (Acute) Hypoxia (Acute) Suspected sleep apnea (Acute) Fall (Acute) Community acquired pneumonia (Acute) Rhabdomyolysis (Acute) Acute kidney injury (Acute) The patient is a 67 y/o F w/ PMHx: Obesity, Chronic COPD/Asthma, HTN, HLD, Allergic Rhinitis, ELDER, GERD, Tobacco use recently quit, Gouty Arthritis, Recent RLE Abscess s/p I+D, Noted TCU LLL ([facility], suspect may be in error and RLE especially since grafts harvested LLE), Recent LUE DVT, Recent CAD s/p CABG [facility] 3-vessel 02/15/18 who presents to the [facility] ED from TCU on 03/03/18 w/ onset fever and mild hypoxia while in TCU. (1) Fever suspected Secondary to ESBL Coccyx Decubitous Ulcer Stage IV and LLE Anteriomedial and Left Medial Thigh Hematoma (Currently appears non-infected hematoma): Initially upon admission suspected secondary to RLE recently noted osteomyelitis; however, upon further evaluation more concern for above noted. Patient transitioned per ID recommendation to vanc, cefepime and voriconazole, Dr. Ivory consulted for evaluation of the LLE as concern for harvest incisions and also assessment of possible infected hematoma, OR 03/05/18 AM with extensive debridements with I&D and excisional debridement of hematoma of the left anterior medial leg and left medial thigh secondary to extension of hematoma upward in addition to excision of coccyx pressure sore stage IV with noted underlying muscle necrosis, wound RN consulted with planned VAC placement, postoperative anemia acute on chronic with 2 unit PRBC administered w/ improvement, Wound RN 03/06/18 VAC placement w/ dressing take down without any evidence acute bleeding, restarted on coumadin/lovenox bridge and also plavix. CC CT team updated on extent of intervention based on visualization of tissue damage in the OR and again deferred transfer to [facility]. Wound Cx currently Coccyx regimen w/ ESBL-->given concurrent R foot osteomyelitis-->per ID transition 03/07/18 to meropenem and continued voriconazole, discontinued vanc and zosyn (had been transitioned day prior from cefepime). Conroy currently in place secondary to extensive nature of coccyx debridement. Encourage out of bed, barrier cream, pain regimen, PT, OT, CM for plan discharge to LTAC given extent of needs. (2) Acute on Chronic Anemia/Fe Deficiency anemia secondary to Operative Blood Loss: Hemoglobin postoperatively 7.4, given recent cardiac interventions 03/06/18 PRBC 2 u administered, 03/07/18 Hgb 8.7 improved, BP improved. Wound RN 03/06/18 VAC placement w/ dressing take down without any evidence acute bleeding, restarted on coumadin/lovenox bridge and also plavix. Continue iron supplementation. Trend CBC. (3) CAD: Cardiac catheterization [facility] 02/06 w/ severe triple-vessel disease with distal left main disease and preserved ejection fraction of 55% w/ moderate mitral regurgitation, incision well appearing. Wound RN 03/06/18 VAC placement w/ dressing take down without any evidence acute bleeding, restarted on coumadin/lovenox bridge and also plavix, continue aspirin, Coreg, lisinopril also. (3) Recent LUE DVT: Early holding Coumadin w/ lovenox bridge in [place] to recent severity of operative intervention needs and anemia, 03/05/18 INR 1.4-->03/06/18 INR 1.3, held dose 03/05/18 secondary to OR. Wound RN 03/06/18 VAC placement w/ dressing take down without any evidence acute bleeding, restarted on coumadin/lovenox bridge and also plavix. (4) Recent UTI, Noted on TCU Note: Unclear organism in outside hospital, 03/04/18 d/c conroy, however, extensive debridement of the coccyx region performed therefore Conroy replaced on 03/05/18. (5) Hypertension: Continue home regimen including lisinopril, Coreg, Lasix, PRN hydralazine. (6) Hyperlipidemia: Continue home statin regimen. (7) Diabetes mellitus type II w/ neuropathy: Hold oral home regimen, continue home insulin regimen, ADA diet, accu checks w/ ISS, continue home gabapentin regimen. (8) Chronic COPD/Asthma: ATC duonebs, PRN albuterol, HOB, IS parameters, continue home Singulair regimen. (9) Hx Tobacco Abuse: Encouraged continued cessation. (10) Obesity: Weight loss and lifestyle changes encouraged. (11) ELDER: CPAP nightly. (12) GERD: PPI. (13) DVT Prophylaxis: SCDs, Wound RN 03/06/18 VAC placement w/ dressing take down without any evidence acute bleeding, restarted on coumadin/lovenox bridge and also plavix. (14) CODE status: Full Code.
--- NOTE | 2018-03-07 10:35 | PN_ITS ---
Subjective: Patient overnight no acute events per self and per nursing report. With improvement of vital signs following PRBC administration in addition to improve mental status following de-escalation of IV narcotic therapy. Some concern day prior for possible sepsis however patient as noted vital signs improved and mental status improved following IV narcotic therapy alterations. Fever did occur during PRBC administration but patient has been afebrile since evening prior now. Patient denies chills, nausea, emesis, abdominal pain, chest pain or dyspnea. Still loose stools but negative c-diff assay, likely secondary to abx with changes today, monitor for improvement. Objective: Physical Examination: General: awake, alert, oriented x 3 and cooperative, seated upright in bed, NAD. Skin: Diffuse thorax and extremity ecchymoses various staged, right lower extremity w/ dressing in place (great toe wounds with no drainage), left lower extremity w/ VAC in place (status post I&D and excisional debridement of left anterior medial leg hematoma with skin necrosis 286 cm2 and left medial thigh with I&D and excisional debridement hematoma which extended upward 52 cm2), midline chest CABG incision well-appearing, coccyx with stage IV ulceration upon presentation w/ now VAC in place (s/p excisional debridement with noting underlying tissue necrosis 64 cm2). HEENT: AT/NC, EOMI, PERRLA, MMM. Lungs: Diminished BS BL, > bases, no rales, ronchi or wheezing. Heart: Regular rate and rhythm; no gallop, rub audible, CABG incision well appearing, SM. Abdomen: soft, NTTP, ND, normal BS, no HSM. Extremities: no cyanosis, clubbing, see skin. Neurological: patient awake, alert, oriented x 3; cognitive function intact; pupils equally reactive to light and accomodation; cranial nerves II-XII grossly normal, moving all 4 extremities except severely limited secondary to recent OR, dressings, strength severely globally decreased. Psychiatric: affect appears normal, no acute evidence of depressive or anxiety feelings. Vitals/I&O's: Vital Signs Temp Pulse Resp BP Pulse Ox 98.7 F 98 18 157/65 H 95 03/07/18 09:50 03/07/18 09:50 03/07/18 09:50 03/07/18 09:50 03/07/18 09:50 Oxygen Flow Rate (L/min) 2 Oxygen Delivery Method Nasal Cannula Weight: 165 lb 5.547 oz Body Mass Index (BMI) 29.2 Intake and Output for Last 24 Hours 03/05/18 03/06/18 03/07/18 23:59 23:59 23:59 Intake Total 2879 / 2879 2903 / 2903 1046 / 1046 Output Total 1050 / 1050 475 / 475 500 / 500 Balance 1829 / 1829 2428 / 2428 546 / 546 Microbiology Past 72 Hours 03/05/18 Unknown Biopsy - Other Gram Stain - Final 03/05/18 Unknown Biopsy - Other Wound Culture - Preliminary Escherichia coli 03/05/18 Unknown Biopsy - Other Anaerobic Culture - Preliminary Checking for anaerobes, further studies to follow. 03/05/18 Unknown Biopsy - Leg, Left Gram Stain - Final 03/05/18 Unknown Biopsy - Leg, Left Wound Culture - Preliminary No growth-Final to follow 03/05/18 Unknown Biopsy - Leg, Left Anaerobic Culture - Preliminary No growth in 48 hours. 03/04/18 16:36 Stool C. difficile DNA Amplification - Final 03/04/18 08:45 Stool Enteric Bacteriology - Final Laboratory Results 03/06/18 07:00: Blood Type A POSITIVE, Antibody Screen NEGATIVE, Crossmatch See Detail 03/06/18 11:46: POC Glucose 171 H 03/06/18 15:25: POC Glucose 146 H 03/06/18 15:30: Lactic Acid 0.7 03/06/18 16:17: POC Glucose 169 H 03/06/18 21:12: POC Glucose 159 H 03/07/18 05:10: WBC 8.6, RBC 3.18 L, Hgb 8.7 L, Hct 28.9 L, MCV 90.9, MCH 27.4, MCHC 30.1 L, RDW 17.4 H, RDW Differential 54.6 H, Plt Count 229, MPV 8.3, Immature Gran % (Auto) 0.200, Neut % (Auto) 80.7 H, Lymph % (Auto) 6.8 L, [place] % (Auto) 11.6 H, Eos % (Auto) 0.6, Baso % (Auto) 0.1, Absolute Neuts (auto) 6.9 , Absolute Lymphs (auto) 0.58 L, Total Counted Not Reportable 03/07/18 05:10: PT 17.1 H, INR 1.4 03/07/18 05:10: Sodium 137, Potassium 4.4, Chloride 101, Carbon Dioxide 30.0, Anion Gap 6, BUN 30 H, Creatinine 0.70, Estim Creat Clear Calc 44.54, Est GFR ( MDRD) Af Amer 107, Est GFR (MDRD) Non-Af 88, BUN/Creatinine Ratio 42.8 H, Glucose 150 H, Calcium 7.7 L 03/07/18 06:35: POC Glucose 124 H 03/07/18 08:11: POC Glucose 117 H 03/07/18 08:34: Vancomycin Trough 21.6 H Current Medications Acetaminophen (Tylenol) 650 mg PO Q4H PRN PRN PRN Reason: fever, pain Albuterol/Ipratropium (Duoneb) 3 ml INHALATION Q4HWA.RT [facility] Last Admin: 03/07/18 07:10 Dose: Not Given Ascorbic Acid (Vitamin C) 500 mg PO BIDCM [facility] Last Admin: 03/07/18 08:14 Dose: 500 mg Aspirin (Ecotrin) 81 mg PO DAILY@0800 [facility] Last Admin: 03/07/18 08:15 Dose: 81 mg Bisacodyl (Dulcolax) 5 mg PO DAILY PRN PRN PRN Reason: Constipation Calamine/Phenol (Calmoseptine Ointment) 1 applic TOPICAL TID [facility] PRN Reason: Protocol Last Admin: 03/07/18 06:01 Dose: 1 applicatio Carvedilol (Coreg) 6.25 mg PO BID [facility] Last Admin: 03/07/18 09:54 Dose: 6.25 mg Clopidogrel Bisulfate (Plavix) 75 mg PO DAILY [facility] Last Admin: 03/07/18 09:56 Dose: 75 mg Cyanocobalamin (Vitamin B12) 1,000 mcg PO DAILY@0800 [facility] Last Admin: 03/07/18 08:15 Dose: 1,000 mcg Dextrose (D50w Syringe) 0 gm IV X1 PRN; Protocol PRN Reason: Hypoglycemia Enoxaparin Sodium (Lovenox) 70 mg SC Q12 [facility] Last Admin: 03/07/18 09:57 Dose: 70 mg Folic Acid (Folic Acid) 1 mg PO DAILY@0800 [facility] Last Admin: 03/07/18 08:13 Dose: 1 mg Furosemide (Lasix) 40 mg PO DAILY [facility] Last Admin: 03/07/18 09:55 Dose: 40 mg Gabapentin (Neurontin) 600 mg PO TIDCM [facility] Last Admin: 03/07/18 08:13 Dose: 600 mg Glucagon () 1 mg IM .X1 PRN PRN Reason: Hypoglycemia Hydromorphone HCl (Dilaudid Inj) 0.5 mg IV Q4H PRN PRN PRN Reason: SEVERE PAIN (6-10/10) Meropenem 500 mg/ Sodium (Chloride) 60 mls @ 100 mls/hr IV Q8 [facility] Insulin Detemir (Levemir (Bkc)) 20 units SC QHS [facility] Last Admin: 03/06/18 22:40 Dose: 20 u Insulin Human Lispro (Humalog Kwikpen (Bkc)) 18 unit SC DAILY@1200 [facility] Last Admin: 03/06/18 11:48 Dose: Not Given Insulin Human Lispro (Humalog Kwikpen (Bkc)) 0 unit SC ACHS [facility] PRN Reason: Protocol Last Admin: 03/07/18 08:14 Dose: Not Given Insulin Human Lispro (Humalog Kwikpen (Bkc)) 18 unit SC DAILY@1700 [facility] Last Admin: 03/06/18 16:18 Dose: Not Given Insulin Human Lispro (Humalog Kwikpen (Bkc)) 22 unit SC BREAKFAST [facility] Last Admin: 03/07/18 08:14 Dose: Not Given Lidocaine (Lidoderm Patch) 1 patch TOPICAL DAILY [facility] PRN Reason: Protocol Last Admin: 03/07/18 09:54 Dose: 1 patch Lisinopril (Zestril) 5 mg PO DAILY [facility] Last Admin: 03/07/18 09:57 Dose: 5 mg Loratadine (Claritin) 10 mg PO DAILY [facility] Last Admin: 03/07/18 09:55 Dose: 10 mg Magnesium Hydroxide (Milk Of Magnesia) 30 ml PO DAILY PRN PRN PRN Reason: Constipation Melatonin (Melatonin) 3 mg PO QHS [facility] Last Admin: 03/07/18 00:01 Dose: Not Given Nutritional Formula (Radames - [place] Flavor) 1 packet PO BIDCM [facility] Last Admin: 03/07/18 08:13 Dose: 1 packet Nutritional Formula (Lactose Free) (Glucerna Shake) 120 ml PO 4X/DAY [facility] Last Admin: 03/07/18 09:54 Dose: 120 ml Nystatin (Mycostatin Powder) 1 applic TOPICAL BID [facility] PRN Reason: Protocol Last Admin: 03/07/18 09:56 Dose: 1 applicatio Ondansetron HCl (Zofran) 4 mg IV Q8H PRN PRN PRN Reason: NAUSEA Oxycodone HCl (Oxyir) 5 - 10 mg PO Q4H PRN PRN PRN Reason: PAIN Last Admin: 03/07/18 09:54 Dose: 5 mg Pantoprazole Sodium (Protonix) 40 mg PO DAILY [facility] Last Admin: 03/07/18 09:55 Dose: 40 mg Polysaccharide Iron Complex (Ferrex 150) 150 mg PO BID [facility] Last Admin: 03/07/18 09:55 Dose: 150 mg Psyllium Hydrophilic Mucilloid (Metamucil) 1 packet PO DAILY PRN PRN PRN Reason: CONSTIPATION Senna/Docusate Sodium (Senokot-S, Iqra-Colace) 2 tablet PO BID [facility] Last Admin: 03/07/18 09:56 Dose: Not Given Sodium Chloride () 10 ml IV UD PRN PRN Reason: PICC FLUSH Last Admin: 03/07/18 09:58 Dose: 10 ml Voriconazole (Vfend) 200 mg PO Q12 [facility] Last Admin: 03/07/18 09:56 Dose: 200 mg Warfarin Sodium (Coumadin (Pbkc)) 3 mg PO DAILY@1700 [facility] Last Admin: 03/06/18 16:19 Dose: 3 mg Medical Necessity - Tobacco Use Smoking Status: Former smoker Tobacco Use: Non-smoker Assessment/Plan All Active Problems (Last Reviewed 11/22/17 @ 13:19 by Sherie Alves) Osteomyelitis of left foot (Acute) Pain in right toe(s) (Acute) Cellulitis of right foot (Acute) Abscess of toe of right foot (Acute) Type 2 diabetes mellitus (Acute) Infectious arthritis (Acute) Hypoxia (Acute) Suspected sleep apnea (Acute) Fall (Acute) Community acquired pneumonia (Acute) Rhabdomyolysis (Acute) Acute kidney injury (Acute) The patient is a 67 y/o F w/ PMHx: Obesity, Chronic COPD/Asthma, HTN, HLD, Allergic Rhinitis, ELDER, GERD, Tobacco use recently quit, Gouty Arthritis, Recent RLE Abscess s/p I+D, Noted TCU LLL ([facility] Osteo, suspect may be in error and RLE especially since grafts harvested LLE), Recent LUE DVT, Recent CAD s/p CABG [facility] 3-vessel 02/15/18 who presents to the [facility] ED from TCU on 03/03/18 w/ onset fever and mild hypoxia while in TCU. (1) Fever suspected Secondary to ESBL Coccyx Decubitous Ulcer Stage IV and LLE Anteriomedial and Left Medial Thigh Hematoma (Currently appears non-infected hematoma): Initially upon admission suspected secondary to RLE recently noted osteomyelitis; however, upon further evaluation more concern for above noted. Patient transitioned per ID recommendation to vanc, cefepime and voriconazole, Dr. Ivory consulted for evaluation of the LLE as concern for harvest incisions and also assessment of possible infected hematoma, OR 03/05/18 AM with extensive debridements with I&D and excisional debridement of hematoma of the left anterior medial leg and left medial thigh secondary to extension of hematoma upward in addition to excision of coccyx pressure sore stage IV with noted underlying muscle necrosis, wound RN consulted with planned VAC placement, postoperative anemia acute on chronic with 2 unit PRBC administered w/ improvement, Wound RN 03/06/18 VAC placement w/ dressing take down without any evidence acute bleeding, restarted on coumadin/lovenox bridge and also plavix. CC CT team updated on extent of intervention based on visualization of tissue damage in the OR and again deferred transfer to [facility]. Wound Cx currently Coccyx regimen w/ ESBL-->given concurrent R foot osteomyelitis-->per ID transition 03/07 to meropenem and continued voriconazole, discontinued vanc and zosyn (had been transitioned day prior from cefepime). Conroy currently in place secondary to extensive nature of coccyx debridement. Encourage out of bed, barrier cream , pain regimen, PT, OT, CM for plan discharge to LTAC given extent of needs. (2) Acute on Chronic Anemia/Fe Deficiency anemia secondary to Operative Blood Loss: Hemoglobin postoperatively 7.4, given recent cardiac interventions PRBC 2 u administered, 03/07/18 Hgb 8.7 improved, BP improved. Wound RN VAC placement w/ dressing take down without any evidence acute bleeding, restarted on coumadin/lovenox bridge and also plavix. Continue iron supplementation. Trend CBC. (3) CAD: Cardiac catheterization [facility] 02/06 w/ severe triple-vessel disease with distal left main disease and preserved ejection fraction of 55% w/ moderate mitral regurgitation, incision well appearing. Wound RN 03/06/18 VAC placement w / dressing take down without any evidence acute bleeding, restarted on coumadin/ lovenox bridge and also plavix, continue aspirin, Coreg, lisinopril also. (3) Recent LUE DVT: Early holding Coumadin w/ lovenox bridge in [place] to recent severity of operative intervention needs and anemia, 03/05/18 INR 1.4-->03/06/18 INR 1.3, held dose 03/05/18 secondary to OR. Wound RN 03/06/18 VAC placement w/ dressing take down without any evidence acute bleeding, restarted on coumadin/ lovenox bridge and also plavix. (4) Recent UTI, Noted on TCU Note: Unclear organism in outside hospital, d/c conroy, however, extensive debridement of the coccyx region performed therefore Conroy replaced on 03/05/18. (5) Hypertension: Continue home regimen including lisinopril, Coreg, Lasix, PRN hydralazine. (6) Hyperlipidemia: Continue home statin regimen. (7) Diabetes mellitus type II w/ neuropathy: Hold oral home regimen, continue home insulin regimen, ADA diet, accu checks w/ ISS, continue home gabapentin regimen. (8) Chronic COPD/Asthma: ATC duonebs, PRN albuterol, HOB, IS parameters, continue home Singulair regimen. (9) Hx Tobacco Abuse: Encouraged continued cessation. (10) Obesity: Weight loss and lifestyle changes encouraged. (11) ELDER: CPAP nightly. (12) GERD: PPI. (13) DVT Prophylaxis: SCDs, Wound RN 03/06/18 VAC placement w/ dressing take down without any evidence acute bleeding, restarted on coumadin/lovenox bridge and also plavix. (14) CODE status: Full Code.
--- NOTE | 2018-03-07 10:37 | PCM.PN.ID ---
Subjective: Pain controlled, no fever, no n/v/d with iv abx. - Physical Exam General: Alert, Cooperative Lungs: Clear to auscultation, Normal air movement Cardiovascular: Regular rate, Regular Rhythm Abdomen: Soft, Non Tender, Non-Distended Skin: Ulcer/ Wound - wound vac in place Vital Signs Temp Pulse Resp BP Pulse Ox 98.7 F 98 18 157/65 H 95 03/07/18 09:50 03/07/18 09:50 03/07/18 09:50 03/07/18 09:50 03/07/18 09:50 Oxygen Flow Rate (L/min) 2 Oxygen Delivery Method Nasal Cannula Weight: 75 kg Body Mass Index (BMI) 29.2 Intake and Output for Last 24 Hours 03/05/18 03/06/18 03/07/18 23:59 23:59 23:59 Intake Total 2879 / 2879 2903 / 2903 1046 / 1046 Output Total 1050 / 1050 475 / 475 500 / 500 Balance 1829 / 1829 2428 / 2428 546 / 546 Microbiology Past 72 Hours 03/05/18 Unknown Gram Stain - Final Biopsy - Other Wound Culture - Preliminary Escherichia coli Anaerobic Culture - Preliminary Checking for anaerobes, further studies to follow. 03/05/18 Unknown Gram Stain - Final Biopsy - Leg, Left Wound Culture - Preliminary No growth-Final to follow Anaerobic Culture - Preliminary No growth in 48 hours. 03/04/18 16:36 C. difficile DNA Amplification - Final Stool 03/04/18 08:45 Enteric Bacteriology - Final Stool Laboratory Tests Past 24 Hrs 03/06/18 03/06/18 03/07/18 07:00 15:30 05:10 WBC 8.6 RBC 3.18 L Hgb 8.7 L Hct 28.9 L MCV 90.9 MCH 27.4 MCHC 30.1 L RDW 17.4 H RDW Differential 54.6 H Plt Count 229 MPV 8.3 Immature Gran % (Auto) 0.200 Neut % (Auto) 80.7 H Lymph % (Auto) 6.8 L [place] % (Auto) 11.6 H Eos % (Auto) 0.6 Baso % (Auto) 0.1 Absolute Neuts (auto) 6.9 Absolute Lymphs (auto) 0.58 L Total Counted Not Reportable PT INR Sodium Potassium Chloride Carbon Dioxide Anion Gap BUN Creatinine Estim Creat Clear Calc Est GFR (MDRD) Af Amer Est GFR (MDRD) Non-Af BUN/Creatinine Ratio Glucose Lactic Acid 0.7 Calcium Vancomycin Trough Blood Type A POSITIVE Antibody Screen NEGATIVE Crossmatch See Detail 03/07/18 03/07/18 03/07/18 05:10 05:10 08:34 WBC RBC Hgb Hct MCV MCH MCHC RDW RDW Differential Plt Count MPV Immature Gran % (Auto) Neut % (Auto) Lymph % (Auto) [place] % (Auto) Eos % (Auto) Baso % (Auto) Absolute Neuts (auto) Absolute Lymphs (auto) Total Counted PT 17.1 H INR 1.4 Sodium 137 Potassium 4.4 Chloride 101 Carbon Dioxide 30.0 Anion Gap 6 BUN 30 H Creatinine 0.70 Estim Creat Clear Calc 44.54 Est GFR (MDRD) Af Amer 107 Est GFR (MDRD) Non-Af 88 BUN/Creatinine Ratio 42.8 H Glucose 150 H Lactic Acid Calcium 7.7 L Vancomycin Trough 21.6 H Blood Type Antibody Screen Crossmatch POC Glucose 03/07/18 03/07/18 03/06/18 08:11 06:35 21:12 POC Glucose 117 H 124 H 159 H 03/06/18 03/06/18 03/06/18 16:17 15:25 11:46 POC Glucose 169 H 146 H 171 H Medical Necessity - Tobacco Use Smoking Status: Former smoker Tobacco Use: Non-smoker Route of nutrition/ use of supplements: [] Nutritional Intake: [] IV Site: [] Allen Catheter: [] - Assessment/Plan Antibiotics: [] Assessment/Plan: [] Fever with hypoxia - recent surgery for R foot osteo, cxs from [facility] (+) for CoNS and aspergillus, discharged to TCU on ancef/vori. Now s/p debridement 03/[address] Ivory of sacral ulcer with necrotic tissue seen and LLE for hematoma around vein donor site. Cx from sacrum with ESBL ecoli. No growth of MRSA. Will stop vanc. Change zosyn to meropenem. Will follow, d/w Dr. Nielson
--- NOTE | 2018-03-07 10:46 | CASEMGMT ---
NEW RUBALCAVA discussed discharge plans with the patient. Patient is agreeable to LTACH [facility]. Referral sent to [facility]. Patient requested RN CM update her son. VM left requesting return call to son. NEW CM will continue to follow this patient and plan for a safe discharge.
[2018-03-07] MEDS: Insulin Lispro 100 UNIT/ML INSULN.PEN SC ×3 (11:40→22:17)
[2018-03-07 11:50] LABS: Bedside Glucose 278 mg/dL (70-110)
--- NOTE | 2018-03-07 11:50 | CASEMGMT ---
Social Work Note Pt is now going to LTACH at discharge. SW placed a call to Joanne in TCU and left her a message to update her that pt will be going to LTACH at discharge. Plan: [facility] [employer], [employer]
[2018-03-07] MEDS: Acetaminophen 325 MG Tablet 650 MG PO (11:51)
[2018-03-07 17:15] LABS: Bedside Glucose 164 mg/dL (70-110)
[2018-03-07] MEDS: MELATONIN 3 MG TABLET PO (22:14)
[2018-03-07 22:35] LABS: Bedside Glucose 235 mg/dL (70-110)
[2018-03-08] VITALS (7 sets, daily range): BP systolic 145–154; BP diastolic 58–63; PULSE 76–85; RESP 16–18; TEMP 36.8–37.2; O2SAT 77–99
[2018-03-08] MEDS: 0.9% NaCl PICC Flush 10 ML IV ×3 (06:11→06:13)
[2018-03-08 06:39] LABS: Absolute Lymphocyte Count 0.64 X10^3/ul (0.83-4.51); Eosinophil# 0.05 X10^3/uL; Eosinophils% 0.8 % (0-5); Hematocrit 29.3 % (37-47); Hemoglobin 8.7 g/dl (12.0-15.0); Lymphocyte # 0.64 X10^3/ul (4.0); Mean Corp Hgb Conc 29.7 g/gl (32-36); Mean Corpuscular Hgb 26.6 pg (27.0-32.0); Mean Corpuscular Volume 89.6 fL (81-99); Mean Platelet Vol. 8.2 fl (6.2-12.0); Monocyte# 0.73 X10^3/uL; Monocyte% 11.4 % (0-10); Neutrophil # 4.97 X10^3/uL (2.7-7.7); Neutrophil % 77.6 % (47-70); Platelet Count 215 K/mm3 (150-450); RBC Distribution Width CV 17.2 % (11.6-14.6); RBC Distribution Width SD 55.9 fl (35.1-43.9); Red Blood Count 3.27 M/mm3 (4.2-5.4); White Blood Count 6.4 K/mm3 (4.4-11.0)
[2018-03-08 06:47] LABS: POSITIVE COUNT NO; POSITIVE DIFFERENTIAL NO; POSITIVE MORPHOLOGY NO
[2018-03-08 06:54] LABS: International Normalized Ratio 1.4; Prothrombin Time (Protime)PT. 16.7 SECONDS (11.7-14.9)
[2018-03-08 06:57] LABS: Anion Gap 5 (5-15); BUN 28 mg/dL (7-18); BUN/Creat Ratio 51.9 RATIO (10-20); Chloride 100 mmol/L (98-107); Creatinine, Serum 0.54 mg/dL (0.55-1.02); EST Glomerular Filtration Rate 119 mL/min (>60); Est Glom Filt Rate - Afr Amer 145 mL/min (>60); Estimated Creatinine Clearance 44.54 ml/min; Glucose 139 mg/dL (74-106); Potassium 4.6 mmol/L (3.5-5.1); Sodium Level 138 mmol/L (136-145)
--- NOTE | 2018-03-08 09:50 | TREXTCAR_ITS ---
- Diet 03/05/18 13:52 Diet: Carbohydrate Controlled Is pt able to select menu?: Yes - Routine Orders/Code Status Enema Type: Fleetz Enema Frequency: Daily PRN Suppository Type: Dulcolax 10mg Suppository Frequency: Daily PRN O2 Liters per Minute: 2 O2 Frequency: Continuous Keep PO Greater than or Equal to (%): 92 Routine Lab Work: - - Repeat CBC, BMP weekly and fax to Dr. Palmer Infectious Disease. Code Status: Full Code - Wound(s) coccyx Wound Type: Surgical Incision Dressing Change: ABDs/ Kerlix/ Mepitel left great toe Wound Type: post op incision and suture punctures left barboza donor site Wound Type: Surgical Incision Dressing Change: Now with wound VAC s/p I+D bottom of left leg precious Wound Type: Stasis Ulcer Dressing Change: Now with wound VAC s/p I+D close to stitched/stapled area mid barboza lateral Dressing Change: Now with Wound VAC s/p I+D lateral to stitched area left barboza Dressing Change: Now w/ Wound VAC s/p I+D large raised ecchymotic area left lateral barboza Wound Type: Hematoma Dressing Change: Now w/ Wound VAC s/p I+D midline/chest Wound Type: Surgical Incision sub sternal/ 2 old lilliana sites Wound Type: Puncture left elbow crease Wound Type: scab rt wrist Wound Type: Abrasion rt posterior upper arm Wound Type: Skin Tear left leg Wound Type: Surgical Incision Dressing Change: Now w/ Wound VAC s/p I+D Rt foot Wound Type: Surgical Incision Dressing Change: Dry dressing. Lt upper arm Wound Type: Skin Tear sacrum Wound Type: Pressure Injury Dressing Change: applied KCI wound VAC left medial thigh Wound Type: open surgical wound s/p excision hematoma Dressing Change: applied KCI wound VAC left lower leg Wound Type: open surgical wound s/p excision hematoma Dressing Change: KCI wound VAC right great toe Wound Type: Neuropathic/Diabetic Foot Ulcer Dressing Change: Dry Sterile Dressing RIGHT ELBOW Wound Type: Skin Tear - Suggestions for Active Care Change Position every (hours): 2 Hours to sit in a chair: 6 Times a day to sit in chair: 3 - Therapies Weight Bearing: Full weight bearing Physical Therapy: Eval and Treat Occupational Therapy: Eval and Treat - Problem/Diagnosis (1) Hematoma Status: Acute Comment: LLE Anteriomedial and Left Medial Thigh Hematoma ( Currently appears non-infected hematoma, operative cultures without growth) s/p notable I+D w/ VAC placement. Current Visit: Yes (2) Decubitus ulcer Status: Acute Comment: ESBL Coccyx Decubitous Ulcer Stage IV s/p I+D with VAC placement. Continued on Meropenem regimen per ID recommendation x 6 weeks additional to concurrently treat R Foot Osteomyelitis. Current Visit: Yes (3) Acute anemia Status: Acute Comment: Post-operatively Hgb decrease, s/p 2 u PRBC. Current Visit: Yes (4) Foot osteomyelitis, right Status: Chronic Comment: Recent R Foot Osteomyelitis, maintained on meropenem and voriconazole for planned addition 6 weeks of treatment per Dr. Palmer direction. Current Visit: Yes (5) S/P CABG (coronary artery bypass graft) Status: Chronic Comment: Recent CABG [facility] on 02/15/18, team contact SOUMYA Rhodes. Current Visit: Yes (6) Acute deep vein thrombosis (DVT) of left upper extremity Status: Chronic Comment: Recent LUE DVT while at [facility] s/p CABG. On therapeutic lovenox/coumadin bridge awaiting INR to be therapeutic. Current Visit: Yes (7) Coronary artery disease Status: Chronic Current Visit: No (8) Obesity Status: Chronic Current Visit: No (9) Neuropathic pain Status: Chronic Current Visit: No (10) Type 2 diabetes mellitus Status: Chronic Current Visit: No (11) Obesity (BMI 30.0-34.9) Status: Chronic Current Visit: No (12) ELDER (obstructive sleep apnea) Status: Chronic Current Visit: No (13) COPD (chronic obstructive pulmonary disease) Status: Chronic Current Visit: No (14) Allergic rhinitis Status: Chronic Current Visit: No (15) Asthma Status: Chronic Current Visit: No (16) Hyperlipidemia Status: Chronic Current Visit: No (17) Hypertension Status: Chronic Current Visit: No - Allergies/Procedures Done in Hospital Allergies/Adverse Reactions: Allergies lisinopril Adverse Reaction (Verified 02/26/18 11:13) Other metronidazole Adverse Reaction (Verified 02/26/18 11:13) Other Procedures: - - 1. Surgical preparation left anteromedial leg with incison and drainage and excisional debridement hematoma with skin necrosis (286 cm2). 2. Excision sacral pressure sore, Stage IV, with underlying muscle necrosis (64 cm2). 3. Surgical preparation left medial thigh with incision and drainage and excisional debridement hematoma (52 cm2). - Type of Care/Length of Stay Estimated LOS: Convalescent Care Less Than 30 days Type of Care Needed: LTAC Rehab Potential: Fair Prognosis: Fair - Additional Orders/Day of Discharge Additional Orders: (1) Wound care directions: Coccyx Wound VAC: 150 mmHg low continuous suction (LCS) MWF regimen (place upon admission). LLE and Thigh Wound VAC: 150 mmHg LCS MWF regimen (place upon admission). R Foot: Dry dressing daily. Midline chest s/p CABG: Open to air. (2) Fall precautions. (3 ) HOB > 30. (4) q 2 position changes, off loading coccyx regimen, heel protector boots, continue to maintain on low airloss mattress, OOB-->chair with all meals and OOB with therapies. (5) CPAP q HS. (6) Antibiotic regimen: Planned continuation Voriconazole and Meropenem per ID Dr. Palmer recommendation x 6 weeks (may contact him if any questions or concerns). (7) Continue power port care per facility protocol. (8) Continue INR trending w/ coumadin/lovenox bridging AND discontinue lovenox once INR therapeutic for recent LUE DVT while at [facility] for CABG. (9) UPDATE: Patient has had loose stools with antibiotic therapies and c-diff assays obtained were negative of note. H&P will serve as current which was dated: 03/03/18 Day of Discharge: 03/08/18 - Dietary and Speech Recommendations Dietitian Recommendations/Changes: Recommend continuing carbohydrate controlled diet. Continue 1 packet Radames BID for wound healing- must be ordered from pharmacy. - Follow Up Care Primary Care Physician: Baron Pike Chi, MD [Primary Care Provider] - Please follow up with your Primary Care Physician in: Follow-up within 1-2 days LTAC discharge. Please Follow Up With: Abdirahman Rhodes (GEOLOGICAL TECHNICIAN [facility] Cardi[facility]oracic Team) When: Follow-up 1 week. Please Follow Up With: Saurabh Pike III When: Follow-up 1 week. Please Follow Up With: Brennan Gonzalez MD When: Follow-up 4 weeks. Please Follow Up With: Jermaine Ivory MD When: Follow-up 2-4 weeks.
--- NOTE | 2018-03-08 10:05 | PCM.DC.SUM ---
Discharge Date and Diagnosis - Problem List Patient Problems: Active and Suspected Problems (Last Reviewed 11/22/17 @ 13:19 by Sherie Alves) Acute anemia (Acute) Post-operatively Hgb decrease, s/p 2 u PRBC. Decubitus ulcer (Acute) ESBL Coccyx Decubitous Ulcer Stage IV s/p I+D with VAC placement. Continued on Meropenem regimen per ID recommendation x 6 weeks additional to concurrently treat R Foot Osteomyelitis. Hematoma (Acute) LLE Anteriomedial and Left Medial Thigh Hematoma (Currently appears non-infected hematoma, operative cultures without growth) s/p notable I+D w/ VAC placement. Date of Admission: 03/03/18 Date of Discharge: 03/08/18 - Primary Discharge Diagnosis Active and Suspected Problems (Last Reviewed 11/22/17 @ 13:19 by Sherie Alves) (1) Fever suspected Secondary to ESBL Coccyx Decubitous Ulcer Stage IV and LLE Anteriomedial and Left Medial Thigh Hematoma (Non-infected, cultures without growth) (2) Acute on Chronic Anemia/Fe Deficiency anemia secondary to Operative Blood Loss (3) CAD s/p recent CABG x 3 02/06/18 [facility] (3) Recent LUE DVT on Coumadin/Lovenox bridge (4) Recent UTI, Noted on TCU Note, Unclear organism in outside hospital (5) Hypertension (6) Hyperlipidemia (7) Diabetes mellitus type II w/ neuropathy (8) Chronic COPD/Asthma (9) Hx Tobacco Abuse (10) Obesity (11) ELDER (12) GERD - Secondary Discharge Diagnosis Chronic Problems (Last Reviewed 11/22/17 @ 13:19 by Sherie Alves) Coronary artery disease (Chronic) Obesity (Chronic) Neuropathic pain (Chronic) S/P CABG (coronary artery bypass graft) (Chronic) Recent CABG Main on 02/15/18, team contact SOUMYA Rhodes. Acute deep vein thrombosis (DVT) of left upper extremity (Chronic) Recent LUE DVT while at [facility] s/p CABG. On therapeutic lovenox/coumadin bridge awaiting INR to be therapeutic. Foot osteomyelitis, right (Chronic) Recent R Foot Osteomyelitis, maintained on meropenem and voriconazole for planned addition 6 weeks of treatment per Dr. Palmer direction. Type 2 diabetes mellitus (Chronic) Obesity (BMI 30.0-34.9) (Chronic) HERNANDEZ (dyspnea on exertion) (Chronic) ELDER (obstructive sleep apnea) (Chronic) COPD (chronic obstructive pulmonary disease) (Chronic) Neuropathic pain (Chronic) Allergic rhinitis (Chronic) Asthma (Chronic) Mild asthma (Chronic) Osteoarthritis (Chronic) Hyperlipidemia (Chronic) Hypertension (Chronic) Type 2 diabetes mellitus (Chronic) Hospital Course and Treatment Consultations 03/03/18 19:16 Consult: Onc/Wound/music promoter Routine Comment: Plastic Surgery Dr. Ivory Operations: None, - - 03/05/18 Dr. Ivory: 1. Surgical preparation left anteromedial leg with incison and drainage and excisional debridement hematoma with skin necrosis (286 cm2). 2. Excision sacral pressure sore, Stage IV, with underlying muscle necrosis (64 cm2). 3. Surgical preparation left medial thigh with incision and drainage and excisional debridement hematoma (52 cm2). Procedures: Blood transfusion Summary of Care Provided: The patient is a 67 y/o F w/ PMHx: Obesity, Chronic COPD/Asthma, HTN, HLD, Allergic Rhinitis, ELDER, GERD, Tobacco use recently quit, Gouty Arthritis, Recent RLE Abscess s/p I+D, Noted TCU LLL ([facility] Osteo, suspect may be in error and RLE especially since grafts harvested LLE), Recent LUE DVT, Recent CAD s/p CABG [facility] 3-vessel 02/15/18 who presented to the [facility] ED from TCU on 03/03/18 w/ onset fever and mild hypoxia while in TCU. Initially upon admission suspected secondary to RLE recently noted osteomyelitis; however, upon further evaluation more concern for above noted. Patient transitioned per ID recommendation to vanc, cefepime and voriconazole, Dr. Ivory consulted for evaluation of the LLE as concern for harvest incisions and also assessment of possible infected hematoma, OR 03/05/18 AM with extensive debridements with I&D and excisional debridement of hematoma of the left anterior medial leg and left medial thigh secondary to extension of hematoma upward in addition to excision of coccyx pressure sore stage IV with noted underlying muscle necrosis, wound RN consulted with planned VAC placement, postoperative anemia acute on chronic with 2 unit PRBC administered w/ improvement, Wound RN 03/06/18 VAC placement w/ dressing take down without any evidence acute bleeding, restarted on coumadin/lovenox bridge and also plavix. CC CT team updated on extent of intervention based on visualization of tissue damage in the OR and again deferred transfer to [facility]. Wound Cx currently Coccyx regimen w/ ESBL-->given concurrent R foot osteomyelitis-->per ID transition 03/07/18 to meropenem and continued voriconazole for planned 6 weeks additional treatment w/ discontinued vanc and zosyn (had been transitioned day prior from cefepime). Allen currently in place secondary to extensive nature of coccyx debridement. Hemoglobin postoperatively 7.4, given recent cardiac interventions 03/06/18 PRBC 2 u administered, 03/07/18 Hgb 8.7 improved, BP improved. Wound RN 03/06/18 VAC placement w/ dressing take down without any evidence acute bleeding, restarted on coumadin/lovenox bridge and also plavix. Continued iron supplementation. Recent LUE DVT, held 03/05 dosing plavix, coumadin and lovenox for OR w/ Wound RN 03/06/18 VAC placement w/ dressing take down without any evidence acute bleeding, restarted on coumadin/lovenox bridge and also plavix. Patient evaluated per CM, SW, PT, OT with decision for LTAC transition given complexity of patient wounds, VAC change needs and prolonged antibiotic therapies. DAY OF DISCHARGE PROGRESS NOTE: Subjective: Patient without acute event overnight per self and nursing report. Patient notes pain to the left lower extremity and coccyx region is manageable and she is using oral pain regimen. She has had no fevers over the last 24 hours, pain controlled, no evidence of bleeding w/ stable Hgb s/p PRBC following OR. Patient denies fever, chills, nausea, emesis, abdominal pain, chest pain or dyspnea. Patient agreeable to discharge to LTAC. Patient will be discharged with follow-up with primary care physician, her [facility] Cardiothoracic team in addition to local [facility] for shelter and Dr. Ivory, Plastic Surgery. Objective: T 98.9, heart rate 80, BP 151/58, respiratory rate 16, 99% on 2 L nasal cannula. Physical Examination: General: awake, alert, oriented x 3 and cooperative, seated upright in bed, NAD. Skin: Diffuse thorax and extremity ecchymoses various staged, right lower extremity w/ dressing in place (great toe wounds with no drainage), left lower extremity w/ VAC in place (status post I&D and excisional debridement of left anterior medial leg hematoma with skin necrosis 286 cm2 and left medial thigh with I&D and excisional debridement hematoma which extended upward 52 cm2), midline chest CABG incision well-appearing, coccyx with stage IV ulceration upon presentation w/ now VAC in place (s/p excisional debridement with noting underlying tissue necrosis 64 cm2). HEENT: AT/NC, EOMI, PERRLA, MMM. Lungs: Diminished BS BL, > bases, no rales, ronchi or wheezing. Heart: Regular rate and rhythm; no gallop, rub audible, CABG incision well appearing, SM. Abdomen: soft, NTTP, ND, normal BS, no HSM. Extremities: no cyanosis, clubbing, see skin. Neurological: patient awake, alert, oriented x 3; cognitive function intact; pupils equally reactive to light and accomodation; cranial nerves II-XII grossly normal, moving all 4 extremities except severely limited secondary to recent OR, dressings, strength severely globally decreased. Psychiatric: affect appears normal, no acute evidence of depressive or anxiety feelings. Assessment and Plan: Please see hospital summary above. Home Medications: Medications to take at Discharge Cyanocobalamin [Vitamin B12] 1,000 mcg PO DAILY@0800 01/18/17 Lisinopril [Prinivil] 5 mg PO DAILY 01/18/17 gabapentin 300 mg capsule 600 mg PO TID cap 08/23/17 Glimepiride [Amaryl] 8 mg PO DAILY 09/18/17 Loratadine 10 mg PO DAILY 09/18/17 Lidocaine [Lidoderm Patch] 1 patch TRANSDERM. DAILY 02/04/18 Ascorbic Acid [Vitamin C] 500 mg PO BIDCM 03/04/18 Aspirin E.C. [Ecotrin] 81 mg PO DAILY@0800 03/04/18 Carvedilol [Coreg] 6.25 mg PO BID 03/04/18 Clopidogrel Bisulfate [Plavix] 75 mg PO DAILY 03/04/18 Fluticasone/Salmeterol [Fluticasone-Salmeterol 232-14] 1 each IH BID 03/04/18 Folic Acid 1 mg PO DAILY@0800 03/04/18 Furosemide [Lasix] 40 mg PO DAILY 03/04/18 Insulin Detemir [Levemir FlexPen] 20 units SC QHS 03/04/18 Insulin Lispro [Humalog KwikPen] 18 unit SQ DAILY@1200 03/04/18 Insulin Lispro [Humalog KwikPen] 18 unit SQ DAILY@1700 03/04/18 Insulin Lispro [Humalog KwikPen] 22 unit SQ BREAKFAST 03/04/18 Ipratropium/Albuterol Sulfate [Duoneb] 3 ml INHALATION TID 03/04/18 Iron Polysaccharide Complex [Ferrex 150] 150 mg PO BID 03/04/18 Melatonin 3 mg PO QHS 03/04/18 Menthol/Lanolin/Calamine/Znox [Calmoseptine Ointment] 1 applic TP TID 03/04/18 Nystatin Powder [Mycostatin Powder] 1 applic TOPICAL BID 03/04/18 Oxycodone [Oxyir] 5 mg PO Q6H PRN PRN 03/04/18 Pantoprazole Sodium [Protonix] 40 mg PO DAILY 03/04/18 Voriconazole [Vfend] 200 mg PO Q12H 03/04/18 Warfarin [Coumadin] 3 mg PO DAILY 03/04/18 montelukast 10 mg tablet 10 mg PO QPM #30 tab 03/07/18 Acetaminophen [Tylenol Tablet] 650 mg PO Q4H PRN PRN tablet 03/08/18 Enoxaparin [Lovenox] 70 mg SC Q12 syringe 03/08/18 Glucerna Shake 120 ml PO 4X/DAY liquid 03/08/18 Insulin Lispro [Humalog KwikPen] See Protocol SC ACHS insuln.pen 03/08/18 Meropenem [Merrem] 500 mg IV Q6 vial 03/08/18 Nutritional Supplement [Radames - ORANGE FLAVOR] 1 packet PO BIDCM packet 03/08/18 Primary Care Physician: Baron Pike Chi, MD [Primary Care Provider] - Please follow up with your Primary Care Physician in: Follow-up within 1-2 days LTAC discharge. Please Follow Up With: Abdirahman Rhodes (WEATHER ALGORITHM SCIENTIST [facility] Cardiothoracic Team) When: Follow-up 1 week. Please Follow Up With: Saurabh Pike III When: Follow-up 1 week. Please Follow Up With: Brennan Gonzalez MD When: Follow-up 4 weeks. Please Follow Up With: Jermaine Ivory MD When: Follow-up 2-4 weeks. Disposition: [facility] Minutes spent on discharge:: 40 Patient Condition:: Fair Medical Necessity - Tobacco Use Smoking Status: Former smoker Tobacco Use: Non-smoker Meaningful Use Info Meaningful Use Diagnoses (Choose all that apply): None applicable Code Visit Inpatient E&M: 10546 Disch Hosp
--- NOTE | 2018-03-08 10:08 | NURSING ---
bS WAS 139 PER LAB DRAW THIS MORNING.
[2018-03-08] MEDS: Pantoprazole Sodium 40 MG Tablet PO (10:09)
[2018-03-08] MEDS: Aspirin E.C. 81 MG Tablet PO (10:09)
[2018-03-08] MEDS: Carvedilol 6.25 MG Tablet PO (10:12)
[2018-03-08] MEDS: Clopidogrel Bisulfate 75 MG Tablet PO (10:12)
[2018-03-08] MEDS: Folic Acid 1 MG Tablet PO (10:12)
[2018-03-08] MEDS: Lisinopril 5 MG Tablet PO (10:12)
[2018-03-08] MEDS: Loratadine 10 MG Tablet PO (10:12)
[2018-03-08] MEDS: Enoxaparin 80 MG/0.8 ML Syringe 70 MG SC (10:13)
[2018-03-08] MEDS: Nystatin Powder 15gm Bottle 1 APPLIC TOPICAL (10:15)
[2018-03-08] MEDS: Glucerna Shake 120 ML LIQUID PO (10:15)
[2018-03-08] MEDS: Iron Polysaccharide Complex 150 MG CAPSULE PO (10:16)
[2018-03-08] MEDS: Furosemide 40 MG Tablet PO (10:16)
[2018-03-08] MEDS: Voriconazole 200 MG Tablet PO (10:17)
[2018-03-08] MEDS: Gabapentin 600 MG Tablet PO ×2 (10:18→13:14)
[2018-03-08] MEDS: Ascorbic Acid 500 MG Tablet PO (10:19)
--- NOTE | 2018-03-08 10:29 | CASEMGMT ---
Social Work Note Pt is being discharged to [facility] today. DENNY set up transportation through [facility] via ambulance/cot for 1:00pm. Transportation form on folder and copy in pt's chart. NEW Vazquez updated pt that pt will be discharged today and of transportation time. DENNY updated Charge Nurse Madina and NEW Blanc of transportation time. DENNY placed a call to pt's son Saurabh to update him that pt will be transferred today and of transportation time. Saurabh asked this worker to send him an email with address of [facility]. aSurabh provided his email [email or web address]. DENNY sent Pollo an email informing him on [facility] address and phone number. Saurabh denied additional needs or concerns at this time. Plan: Pt to discharge to [facility] today through [facility] via ambulance/cot at 1:00pm. Angely Juan MSW, MACHINE FEEDER [employer]OCK
--- NOTE | 2018-03-08 10:32 | CASEMGMT ---
Patient to be discharged today to LTACH. Odalis Baez updated and here at facility. Discharge instructions faxed to Annita Jacobo. DENNY Juan setup transport and updated cynthia Wiley regarding discharge to LTACH and transport setup for at 1300. RN CM updated patient regarding discharge to LTACH and transport setup for 1300. RN CM will continue to monitor patient and plan for a safe discharge.
--- NOTE | 2018-03-08 10:44 | CASEMGMT ---
Social Work Note DENNY received call from Vanesa who is covering for TCU today and for next week. Vanesa asked this worker when pt should be able to come back to TCU. DENNY informed Vanesa that this worker had called Joanne yesterday and left her a message informing her that pt will be going to LTACH at discharge. DENNY informed Vanesa as well that pt will be discharged to LTACH today. Vanesa states understanding and that she will take pt off TCU list. Plan: Pt to discharge to [facility] at 1:00pm through [facility] via ambulance/cot Angely Juan MSW, CAPONIZER
[2018-03-08] MEDS: Insulin Lispro 100 UNIT/ML INSULN.PEN 18 UNIT SC (13:11)
[2018-03-08] MEDS: Insulin Lispro 100 UNIT/ML INSULN.PEN SC (13:12)
[2018-03-08] MEDS: oxyCODONE 5 MG Tablet PO (13:13)
--- NOTE | 2018-03-08 13:28 | NURSING ---
Was heading in to remove the wound VAC prior to patient going to the LTAC. Squad here now. Since wound VAC dressing needs changed today anyway, left dressing in place. Just unhooked wound VAC. dressing will be removed and changed at the LTAC. NEW Blanc states she will be calling report to the LTAC and will let them know that the dressings will need changed. They will need to assess the wounds anyway.
[2018-03-08 13:31] LABS: Bedside Glucose 225 mg/dL (70-110)
--- NOTE | 2018-03-08 13:53 | NURSING ---
This nurse gave report to Liz WOLFF at [facility] at approximately 1320. Dr. Acosta wanted pt to leave with rafiq, to keep in.
== END 2018-03-08 13:30 | DRG 901 ==
LOC: ED 16:50 → MS3 17:33
PROVIDERS: Surgery; Admitting Provider Internal Medicine; Emergency Provider Emergency Medicine; Family Provider Family Medicine Geriatric Medicine; PCP Family Medicine Geriatric Medicine; Visit Provider Family Medicine
PROC: 0JBP0ZZ Excision of Left Lower Leg Subcutaneous Tissue and Fascia, Open Approach (ICD-10-PCS; CPT 15999; principal; 2018-03-05 10:00)
PROC: 0JBP0ZZ Excision of Left Lower Leg Subcutaneous Tissue and Fascia, Open Approach (ICD-10-PCS; 2018-03-05 10:00)
DX: L76.32 Postprocedural hematoma of skin and subcutaneous tissue following other procedure (principal); L89.154 Pressure ulcer of sacral region, stage 4; M86.671 Other chronic osteomyelitis, right ankle and foot; D62 Acute posthemorrhagic anemia; I96 Gangrene, not elsewhere classified; I82.622 Acute embolism and thrombosis of deep veins of left upper extremity; E11.40 Type 2 diabetes mellitus with diabetic neuropathy, unspecified; E11.69 Type 2 diabetes mellitus with other specified complication; J44.9 Chronic obstructive pulmonary disease, unspecified; M10.9 Gout, unspecified; I10 Essential (primary) hypertension; K21.9 Gastro-esophageal reflux disease without esophagitis; I25.10 Atherosclerotic heart disease of native coronary artery without angina pectoris; E78.5 Hyperlipidemia, unspecified; Z79.01 Long term (current) use of anticoagulants; G47.33 Obstructive sleep apnea (adult) (pediatric); Z79.4 Long term (current) use of insulin; Z95.1 Presence of aortocoronary bypass graft; Z87.891 Personal history of nicotine dependence; D50.9 Iron deficiency anemia, unspecified; E66.9 Obesity, unspecified; Z68.29 Body mass index [BMI] 29.0-29.9, adult; Z79.899 Other long term (current) drug therapy; Z87.440 Personal history of urinary (tract) infections
CPT/HCPCS: 36415; 71045; 80048; 80202; 81001; 82962; 83605; 84134; 84484; 85014; 85018; 85025; 85610; 86850; 86900; 86920; 86922; 87040; 87070; 87075; 87076; 87077; 87086; 87102; 87106; 87186; 87205; 87206; 87493; 87506; 87640; 88304; 88305; 88312; 93005; 94640; 97162; 97166; 97530; 97802; 99282; J2185; J7040; J7050; P9016; A4216; J2405

== ENCOUNTER 2018-05-03 20:03 | Inpatient (IN) | payer MEDICARE, OTHER, SELFPAY ==
[2018-05-03] VITALS (8 sets, daily range): BP systolic 84–108; BP diastolic 44–57; PULSE 97–110; RESP 18–24; TEMP 37.5–38.4; O2SAT 93–99; BMI 28.0
[2018-05-03] MEDS: Acetaminophen 500 MG Tablet 1000 MG PO (20:51)
[2018-05-03] MEDS: 0.9% Normal Saline 1,000 ML 999 ML IV ×2 (20:51→21:34)
[2018-05-03] MEDS: fentaNYL 100 MCG/2 ML Ampul 25 MCG IV (20:51)
[2018-05-03 21:11] LABS: ALB/GLOB Ratio 0.3 RATIO (0.9-2.4); AST(SGOT) 13 U/L (15-37); Alanine Aminotransfer ALT/SGPT 9 U/L (13-56); Albumin, Serum 1.6 g/dL (3.2-5.0); Alkaline Phosphatase 102 U/L (45-117); Anion Gap 10 (5-15); BUN 31 mg/dL (7-18); BUN/Creat Ratio 46.7 RATIO (10-20); Calcium,Total 8.2 mg/dL (8.5-10.1); Chloride 103 mmol/L (98-107); Creatinine, Serum 0.66 mg/dL (0.55-1.02); EST Glomerular Filtration Rate 94 mL/min (>60); Est Glom Filt Rate - Afr Amer 114 mL/min (>60); Estimated Creatinine Clearance 40.63 ml/min; Globulin 4.6 g/dL (2.2-4.2); Glucose 179 mg/dL (74-106); Potassium 4.2 mmol/L (3.5-5.1); Protein, Total 6.2 g/dL (6.4-8.2); Sodium Level 136 mmol/L (136-145)
[2018-05-03 21:41] LABS: Mucous, Urine 0 SEEN /hpf (<or=2+); Squamous Epithelial Cells - UA 0 SEEN /hpf (5-10)
[2018-05-03 21:45] LABS: Absolute Lymphocyte Count 1.29 X10^3/ul (0.83-4.51); Absolute Neutrophil Count 10.2 X10^3/uL (2.0-7.7); Basophil# 0.02 X10^3/uL; Basophil% 0.2 % (0-1); Eosinophil# 0.02 X10^3/uL; Eosinophils% 0.2 % (0-5); Hematocrit 24.8 % (37-47); Hemoglobin 7.4 g/dl (12.0-15.0); Lymphocyte # 1.29 X10^3/ul (4.0); Lymphocyte % 10.2 % (19-41); Mean Corp Hgb Conc 29.8 g/gl (32-36); Mean Platelet Vol. 8.1 fl (6.2-12.0); Monocyte% 7.9 % (0-10); Neutrophil # 10.23 X10^3/uL (2.7-7.7); Platelet Count 498 K/mm3 (150-450); RBC Distribution Width CV 18.1 % (11.6-14.6); RBC Distribution Width SD 55.8 fl (35.1-43.9); Red Blood Count 2.85 M/mm3 (4.2-5.4); White Blood Count 12.6 K/mm3 (4.4-11.0)
[2018-05-03 21:46] LABS: Color, Urine Brown (Yellow); Glucose, Dipstick Normal (Normal); Ketone-Dipstick 15 mg/dl (Negative); Leukocyte Esterase-Dipstick 500 /ul (Negative); Nitrite-Dipstick Negative (Negative); Occult Blood-Urine 250 /ul (Negative); Protein-Dipstick 500 mg/dl (Negative); Urine Bilirubin Dipstick Negative (Negative); Urine Clarity Turbid (Clear); Urine Urobilinogen Normal (Normal); Urine pH 6.5 (5.0 - 8.0)
[2018-05-03 21:46] LABS: POSITIVE COUNT NO; POSITIVE DIFFERENTIAL NO; POSITIVE MORPHOLOGY NO
[2018-05-03 21:50] LABS: International Normalized Ratio 1.6; Prothrombin Time (Protime)PT. 18.6 SECONDS (11.7-14.9)
[2018-05-03 21:51] LABS: Partial Thromboplast Time 28.9 Seconds (24.1-36.2)
[2018-05-03 22:08] LABS: Red Blood Cells-Urine > 100 SEEN /hpf (0-5)
[2018-05-03 22:13] LABS: Bacteria 4+ /hpf (None Seen); Calcium Oxalate Crystals Ur 1+ /hpf (<or=2+); White Blood Cells >100 SEEN /hpf (0-5)
[2018-05-03 22:37] LABS: Lactic Acid 1.4 mmol/L (0.4-2.0)
--- NOTE | 2018-05-03 22:38 | ED.VISSUMM ---
- ER Visit Summary Date of Service: 05/03/18 Chief Complaint: Fever History of Present Illness: The patient is a [address] Pike. She has a very complicated recent medical history. She had been admitted to the hospital and found to have osteomyelitis of her right foot. During this hospitalization she had an [place] and was transferred to [facility] where she underwent a 5 vessel bypass on February 15. Following this the graft site in her left leg became infected and she had a hematoma. She has essentially been bedridden since that time and has had a decubitus ulcer that is required debridement and has been infected. Patient reports that she has had a fever that began today. She has had a poor appetite for 1-2 weeks. She denies any obvious source for the fever. She does not have a sore throat or cough. No chest pain or shortness of breath. No abdominal pain, nausea, vomiting, or diarrhea. She is a catheter in place. She denies any headache. She does complain of generalized weakness. Physical Examination: Vitals: 101.2, 88/44, 110, 20, 93% on room air which is not hypoxic. General: Well-nourished and well-developed. Chronically ill-appearing. Head: Normocephalic atraumatic. Neck: Supple, no lymphadenopathy. No JVD. Nontender. Cardiovascular: Tachycardic regular rhythm with no murmur. No murmurs. Respiratory: No respiratory distress. Clear to auscultation bilaterally. Her sternotomy incision is clean, dry, intact. There is no erythema. Abdominal: Soft, nontender, nondistended, normal bowel sounds. No guarding, rebound, or peritoneal signs. Back: Nontender. Extremities: Nontender, no edema. Skin: 10 x 10 cm decubitus ulcer with purulent drainage. She has incision to the medial left leg that is healing well with minimal erythema. There is an healing wound to her right great toe that is healing well with minimal erythema.. Neurologic: Alert and oriented ?3. Cranial nerves II through XII are intact. Normal strength and sensation. Psych: Normal affect. Test Results: EKG sinus tachycardia [address] changes. CBC is more for a hemoglobin of 7.4 hematocrit 24.8, white count of 12.6, platelets of 498, segmented neutrophils 81, lymphs at the 10. Chem-7 is more for glucose 179, BUN 31, calcium 8.2. LFTs marked for an albumin 1.6, 4.6, protein 6.2, AST of 13. INR is 1.6. PTT is 28.9. Allen catheter was changed to temperature catheter and urine was obtained following this. There are greater than 100 white blood cells, greater than 100 red blood cells, 4+ bacteria, and calcium oxalate crystals. Troponin is negative. Chest x-ray shows poor inspiration. Bibasilar airspace disease which could represent infiltrate. Lactic acid was 1.4. Emergency Department Course and Treatment: Patient was given 30 cc/kg bolus of normal saline. She is given Zosyn and vancomycin IV. She was given Tylenol p.o. She was typed and crossed for 2 units of packed red blood cells. Had a prolonged discussion with the patient and the family about her wishes if she was worsening. At this time she does want to be full code. Treatment Plan: Patient was discussed with Dr. Holder. She will be admitted to the hospital for further relation and treatment. Disposition: Admitted in serious condition. Impression: 1. Severe sepsis. 2. UTI. 3. Decubitus ulcer. 4. Anemia. 5. Critical care time 30 minutes. This note was generated with [employer] dictation software. It may contain incorrect words, spelling, and punctuation that were not noted in review of the chart prior to signing ED Disposition - Plan for ED Patient: Chief Complaint: Alt LOC Referrals: Baron Pike Chi, MD [Primary Care Provider] -
--- NOTE | 2018-05-03 22:45 | ED.DCSUM_ITS ---
- ER Visit Summary Date of Service: 05/03/18 Chief Complaint: Fever History of Present Illness: The patient is a [address] Pike. She has a very complicated recent medical history. She had been admitted to the hospital and found to have osteomyelitis of her right foot. During this hospitalization she had an [place] and was transferred to [facility] where she underwent a 5 vessel bypass on February 15. Following this the graft site in her left leg became infected and she had a hematoma. She has essentially been bedridden since that time and has had a decubitus ulcer that is required debridement and has been infected. Patient reports that she has had a fever that began today. She has had a poor appetite for 1-2 weeks. She denies any obvious source for the fever. She does not have a sore throat or cough. No chest pain or shortness of breath. No abdominal pain, nausea, vomiting, or diarrhea. She is a catheter in place. She denies any headache. She does complain of generalized weakness. Physical Examination: Vitals: 101.2, 88/44, 110, 20, 93% on room air which is not hypoxic. General: Well-nourished and well-developed. Chronically ill-appearing. Head: Normocephalic atraumatic. Neck: Supple, no lymphadenopathy. No JVD. Nontender. Cardiovascular: Tachycardic regular rhythm with no murmur. No murmurs. Respiratory: No respiratory distress. Clear to auscultation bilaterally. Her sternotomy incision is clean, dry, intact. There is no erythema. Abdominal: Soft, nontender, nondistended, normal bowel sounds. No guarding, rebound, or peritoneal signs. Back: Nontender. Extremities: Nontender, no edema. Skin: 10 x 10 cm decubitus ulcer with purulent drainage. She has incision to the medial left leg that is healing well with minimal erythema. There is an healing wound to her right great toe that is healing well with minimal erythema.. Neurologic: Alert and oriented ?3. Cranial nerves II through XII are intact. Normal strength and sensation. Psych: Normal affect. Test Results: EKG sinus tachycardia [address] changes. CBC is more for a hemoglobin of 7.4 hematocrit 24.8, white count of 12.6, platelets of 498, segmented neutrophils 81, lymphs at the 10. Chem-7 is more for glucose 179 , BUN 31, calcium 8.2. LFTs marked for an albumin 1.6, 4.6, protein 6.2 , AST of 13. INR is 1.6. PTT is 28.9. Allen catheter was changed to temperature catheter and urine was obtained following this. There are greater than 100 white blood cells, greater than 100 red blood cells, 4+ bacteria, and calcium oxalate crystals. Troponin is negative. Chest x-ray shows poor inspiration. Bibasilar airspace disease which could represent infiltrate. Lactic acid was 1.4. Emergency Department Course and Treatment: Patient was given 30 cc/kg bolus of normal saline. She is given Zosyn and vancomycin IV. She was given Tylenol p.o. She was typed and crossed for 2 units of packed red blood cells. Had a prolonged discussion with the patient and the family about her wishes if she was worsening. At this time she does want to be full code. Treatment Plan: Patient was discussed with Dr. Holder. She will be admitted to the hospital for further relation and treatment. Disposition: Admitted in serious condition. Impression: 1. Severe sepsis. 2. UTI. 3. Decubitus ulcer. 4. Anemia. 5. Critical care time 30 minutes. This note was generated with [employer] dictation software. It may contain incorrect words, spelling, and punctuation that were not noted in review of the chart prior to signing ED Disposition - Plan for ED Patient: Chief Complaint: Alt LOC Referrals: Baron Pike Chi, MD [Primary Care Provider] -
[2018-05-03] MEDS: 0.9% Normal Saline 1,000 ML 250 ML IV (23:20)
--- NOTE | 2018-05-03 23:35 | PCM.HP.STD ---
Problem List (1) Sepsis associated hypotension Status: Acute (2) UTI (urinary tract infection) Status: Acute (3) Anemia Status: Acute (4) DVT (deep venous thrombosis) Status: Acute (5) CAD (coronary artery disease) Status: Acute History of Present Illness Date of Admission: 05/03/18 Chief Complaint: Sepsis secondary to UTI The patient is a 67 year old female w/ h/o CAD s/p 5-vessel CABG, LUE DVT, anemia, and osteomyelitis of right foot admitted for sepsis secondary to UTI. She is unable to provide any history and history is provided by her family. They found her minimally responsive at the [facility]. They also noted that she has been having decrease PO intake for the past few days. She chose not to eat because food did not fit her taste. Nothing appeared to make her more or less responsive despite encourage from family. Her remained minimally responsive until arrival in the ED s/p treatment with IVF. She recently had NV and was transferred to [facility] where she had 5 vessel bypass in February which was complicated by graft site infection and hematoma. She has been bedbound and developed decubitus ulcer s/p debridement. Past Medical History Past Medical History (Chronic Problems): Chronic Problems (Last Updated 03/19/18 @ 16:03 by Liz Hawkins) Atherosclerotic heart disease of [place] coronary artery without angina pectoris (Chronic) CABG x5 - LE to LAD, SVG to diag, SVG to OM1, SVG to OM2, SVG to PDA @[facility] Main on 02/15/18 Nonrheumatic mitral valve regurgitation (Chronic) Stage IV pressure ulcer of sacral region (Chronic) Unstageable pressure ulcer of sacral region (Chronic) Obesity (Chronic) Neuropathic pain (Chronic) S/P CABG (coronary artery bypass graft) (Chronic ~02/15/18) Recent CABG x5 - LE to LAD, SVG to diag, SVG to OM1, SVG to OM2, SVG to PDA @[facility] Main on 02/15/18, team contact SOUMYA Rhodes. Acute deep vein thrombosis (DVT) of left upper extremity (Chronic) Recent LUE DVT while at [facility] s/p CABG. On therapeutic lovenox/coumadin bridge awaiting INR to be therapeutic. Foot osteomyelitis, right (Chronic) Recent R Foot Osteomyelitis, maintained on meropenem and voriconazole for planned addition 6 weeks of treatment per Dr. Palmer direction. Type 2 diabetes mellitus (Chronic) Obesity (BMI 30.0-34.9) (Chronic) HERNANDEZ (dyspnea on exertion) (Chronic) ELDER (obstructive sleep apnea) (Chronic) COPD (chronic obstructive pulmonary disease) (Chronic) Neuropathic pain (Chronic) Allergic rhinitis (Chronic) Asthma (Chronic) Mild asthma (Chronic) Osteoarthritis (Chronic) Hyperlipidemia (Chronic) Hypertension (Chronic) Type 2 diabetes mellitus (Chronic) Medical History: Medical History (Last Reviewed 05/04/18 @ 02:22 by Lorne Holder MD) Atherosclerotic heart disease of [place] coronary artery without angina pectoris (Chronic) I25.10 CABG x5 - LE to LAD, SVG to diag, SVG to OM1, SVG to OM2, SVG to PDA @[facility] Main on 02/15/18 Nonrheumatic mitral valve regurgitation (Chronic) I34.0 Suspected sleep apnea (Acute) G47.30 COPD (chronic obstructive pulmonary disease) (Chronic) J44.9 Neuropathic pain (Chronic) Allergic rhinitis (Chronic) J30.9 Asthma (Chronic) J45.909 Acute kidney injury (Acute) N17.9 Mild asthma (Chronic) J45.998 Osteoarthritis (Chronic) M19.90 Hyperlipidemia (Chronic) E78.5 Hypertension (Chronic) I10 Type 2 diabetes mellitus (Chronic) E11.9 Abnormal echocardiogram R93.1 Cardiomegaly I51.7 GERD (gastroesophageal reflux disease) K21.9 Hypertriglyceridemia E78.1 Hypoxia R09.02 ELDER (obstructive sleep apnea) G47.33 Tobacco use Z72.0 Vitamin D deficiency E55.9 Community acquired pneumonia (Inactive) J18.9 Fall (Inactive) W19.XXXA Rhabdomyolysis (Inactive) M62.82 Allergies lisinopril Adverse Reaction (Verified 02/26/18 11:13) Other metronidazole Adverse Reaction (Verified 02/26/18 11:13) Other Home Medications: Ambulatory Orders Medication Instructions Recorded Lisinopril [Prinivil] 5 mg PO DAILY 01/18/17 gabapentin 300 mg capsule 600 mg PO TID cap 08/23/17 Loratadine 10 mg PO DAILY 09/18/17 Ascorbic Acid [Vitamin C] 500 mg PO BIDCM 03/04/18 Carvedilol [Coreg] 6.25 mg PO BID 03/04/18 Clopidogrel Bisulfate [Plavix] 75 mg PO DAILY 03/04/18 Folic Acid 1 mg PO DAILY@0800 03/04/18 Furosemide [Lasix] 40 mg PO DAILY 03/04/18 Insulin Detemir [Levemir FlexPen] 10 units SC QHS 03/04/18 Insulin Lispro [Humalog KwikPen] 9 unit SQ DAILY@1200 03/04/18 Insulin Lispro [Humalog KwikPen] 9 unit SQ DAILY@1700 03/04/18 Insulin Lispro [Humalog KwikPen] 11 unit SQ BREAKFAST 03/04/18 Ipratropium/Albuterol Sulfate 3 ml INHALATION Q2H PRN 03/04/18 [Duoneb] Iron Polysaccharide Complex 150 mg PO BID 03/04/18 [Ferrex 150] Melatonin 3 mg PO QHS 03/04/18 Nystatin Powder [Mycostatin Powder] 1 applic TOPICAL BID 03/04/18 Oxycodone [Oxyir] 5 mg PO Q4H PRN PRN 03/04/18 Benzocaine/Menthol [Cepacol Sore 1 lozenge MM PRN PRN 05/03/18 Throat Lozenge] Bisacodyl 10 mg RC PRN PRN 05/03/18 Ciprofloxacin [Cipro] 500 mg PO Q12H 05/03/18 Cyanocobalamin (Vitamin B-12) 1,000 mcg PO DAILY 05/03/18 [B-12] Dicyclomine HCl 10 mg PO Q6H PRN 05/03/18 Fluticasone/Vilanterol [Breo 1 puff PO DAILY 05/03/18 Ellipta 200-25 Mcg INH] Glipizide [Glucotrol] 20 mg PO DAILY 05/03/18 Insulin Lispro [Humalog KwikPen] See Protocol SC ACHS 05/03/18 Megestrol Acetate 10 ml PO BID 05/03/18 Metronidazole 500 mg PO TID 05/03/18 Mirtazapine 7.5 mg PO QHS 05/03/18 Nutritional Supplement [Radames - 1 packet PO BIDCM 05/03/18 ORANGE FLAVOR] Warfarin Sodium [Coumadin] 5 mg PO DAILY 05/03/18 Surgical History: Surgical History (Last Reviewed 05/04/18 @ 02:23 by Lorne Holder MD) S/P CABG (coronary artery bypass graft) (Chronic) Onset Date: ~02/15/18 Z95.1 Recent CABG x5 - LE to LAD, SVG to diag, SVG to OM1, SVG to OM2, SVG to PDA @[facility] on 02/15/18, team contact SOUMYA Rhodes. H/O adenoidectomy Z90.89 History of appendectomy Z90.49 History of carpal tunnel release Z98.890 History of hysterectomy Z90.710 History of tonsillectomy Z90.89 Surgical History: appendectomy, coronary bypass surgery - X 5., hysterectomy, tonsillectomy, - - Bilateral tubal ligation. 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 Sibling Family History: Family History (Last Reviewed 11/22/17 @ 13:19 by Sherie Alves) Mother Colon cancer History Items: Diabetes, Heart Disease, - - ELDER Review of Systems Constitutional: Reports: Malaise, Fatigue. Denies: Chills, Fever, Weight Change HEENT: Denies: Head Aches, Sinus Congestion, Sinus Drainage Cardiovascular: Denies: Chest Pain, Palpitations Respiratory: Denies: Cough, Shortness of breath at rest, Sputum production Gastrointestinal: Denies: Abdominal Pain, Nausea, Vomiting Genitourinary: Denies: Dysuria Musculoskeletal: Denies: Joint Pain, Joint Tenderness Skin: Denies: Rash, Wounds Neurological: Denies: Numbness, Tingling, Focal weakness Psychiatric: Denies: Anxiety, Depression, Homicidal Ideations, Suicidal Ideations Hematologic/ Lymphatic: Denies: Easy Bruising, Easy Bleeding VTE Information - Inpt Only VTE Present on Admission: No VTE Mechan Device Prophylaxis: SCD's VTE Pharm Prophylaxis ordered?: Yes Patient Problems: Active and Suspected Problems (Last Updated 03/19/18 @ 16:03 by Liz Hawkins) Sepsis associated hypotension (Acute) UTI (urinary tract infection) (Acute) Anemia (Acute) DVT (deep venous thrombosis) (Acute) CAD (coronary artery disease) (Acute) - Physical Exam General: Alert, Cooperative, - - Ill-appearing HEENT: Atraumatic, PERRLA, EOMI, Normocephalic Neck: Supple, No JVD, Negative Carotid Bruits Lungs: Clear to auscultation, Normal air movement Cardiovascular: No murmurs, Murmur - II/ systolic murmur, Tachycardic Abdomen: Bowel Sounds Present, Soft, Non Tender Extremities: No edema, Capillary Refill Less than 3 Seconds Skin: No rashes, Ulcer/ Wound - 10x10 decubitus ulcer with drainage, Skin Tear - Left medial incision with tissue granulation Musculoskeletal: No Tenderness to Palpation of Joints or Extremities Neurological: Cranial nerves II-XII grossly intact Psych/Mental Status: Normal Affect, Appropriate Vital Signs Temp Pulse Resp BP Pulse Ox 99.5 F H 97 18 108/55 L 99 05/03/18 23:15 05/03/18 23:14 05/03/18 23:14 05/03/18 23:14 05/03/18 23:14 Oxygen Flow Rate (L/min) 2 Oxygen Delivery Method Nasal Cannula Weight: 67.4 kg Body Mass Index (BMI) 28.0 Laboratory Tests Past 24 Hrs 05/03/18 05/03/18 05/03/18 20:15 21:34 21:36 WBC 12.6 H RBC 2.85 L Hgb 7.4 L Hct 24.8 L MCV 87.0 MCH 26.0 L MCHC 29.8 L RDW 18.1 H RDW Differential 55.8 H Plt Count 498 H MPV 8.1 Immature Gran % (Auto) 0.500 Neut % (Auto) 81.0 H Lymph % (Auto) 10.2 L [place] % (Auto) 7.9 Eos % (Auto) 0.2 Baso % (Auto) 0.2 Absolute Neuts (auto) 10.2 H Absolute Lymphs (auto) 1.29 Total Counted Not Reportable PT INR APTT Sodium 136 Potassium 4.2 Chloride 103 Carbon Dioxide 23.0 Anion Gap 10 BUN 31 H Creatinine 0.66 Estim Creat Clear Calc 40.63 Est GFR (MDRD) Af Amer 114 Est GFR (MDRD) Non-Af 94 BUN/Creatinine Ratio 46.7 H Glucose 179 H Lactic Acid Calcium 8.2 L Total Bilirubin 0.40 AST 13 L ALT 9 L Alkaline Phosphatase 102 Troponin I < 0.015 Total Protein 6.2 L Albumin 1.6 L Globulin 4.6 H Albumin/Globulin Ratio 0.3 L Urine Color Brown Urine Clarity Turbid Urine pH 6.5 Ur Specific [place] 1.020 Urine Protein 500 H Urine Glucose (UA) Normal Urine Ketones 15 H Urine Occult Blood 250 H Urine Nitrite Negative Urine Bilirubin Negative Urine Urobilinogen Normal Ur Leukocyte Esterase 500 H Urine RBC > 100 SEEN Urine WBC >100 SEEN Ur Squamous Epith Cells 0 SEEN Calcium Oxalate Crystal 1+ Urine Bacteria 4+ Urine Mucus 0 SEEN Blood Type Antibody Screen Crossmatch 05/03/18 05/03/18 05/03/18 21:36 21:36 22:18 WBC RBC Hgb Hct MCV MCH MCHC RDW RDW Differential Plt Count MPV Immature Gran % (Auto) Neut % (Auto) Lymph % (Auto) [place] % (Auto) Eos % (Auto) Baso % (Auto) Absolute Neuts (auto) Absolute Lymphs (auto) Total Counted PT 18.6 H INR 1.6 APTT 28.9 Sodium Potassium Chloride Carbon Dioxide Anion Gap BUN Creatinine Estim Creat Clear Calc Est GFR (MDRD) Af Amer Est GFR (MDRD) Non-Af BUN/Creatinine Ratio Glucose Lactic Acid 1.4 Calcium Total Bilirubin AST ALT Alkaline Phosphatase Troponin I Total Protein Albumin Globulin Albumin/Globulin Ratio Urine Color Urine Clarity Urine pH Ur Specific [place] Urine Protein Urine Glucose (UA) Urine Ketones Urine Occult Blood Urine Nitrite Urine Bilirubin Urine Urobilinogen Ur Leukocyte Esterase Urine RBC Urine WBC Ur Squamous Epith Cells Calcium Oxalate Crystal Urine Bacteria Urine Mucus Blood Type Cancelled Antibody Screen Cancelled Crossmatch See Detail 05/03/18 22:50 WBC RBC Hgb Hct MCV MCH MCHC RDW RDW Differential Plt Count MPV Immature Gran % (Auto) Neut % (Auto) Lymph % (Auto) [place] % (Auto) Eos % (Auto) Baso % (Auto) Absolute Neuts (auto) Absolute Lymphs (auto) Total Counted PT INR APTT Sodium Potassium Chloride Carbon Dioxide Anion Gap BUN Creatinine Estim Creat Clear Calc Est GFR (MDRD) Af Amer Est GFR (MDRD) Non-Af BUN/Creatinine Ratio Glucose Lactic Acid Calcium Total Bilirubin AST ALT Alkaline Phosphatase Troponin I Total Protein Albumin Globulin Albumin/Globulin Ratio Urine Color Urine Clarity Urine pH Ur Specific [place] Urine Protein Urine Glucose (UA) Urine Ketones Urine Occult Blood Urine Nitrite Urine Bilirubin Urine Urobilinogen Ur Leukocyte Esterase Urine RBC Urine WBC Ur Squamous Epith Cells Calcium Oxalate Crystal Urine Bacteria Urine Mucus Blood Type Pending Antibody Screen Pending Crossmatch See Detail Assessment/Plan All Active Problems (Last Updated 03/19/18 @ 16:03 by Liz Hawkins) Sepsis associated hypotension (Acute) UTI (urinary tract infection) (Acute) Anemia (Acute) DVT (deep venous thrombosis) (Acute) CAD (coronary artery disease) (Acute) Open wound of left thigh (Acute) Open wound of left lower extremity (Acute) Traumatic hematoma of left thigh (Acute) Traumatic hematoma of left lower leg (Acute) Skin necrosis (Acute) Osteomyelitis of left foot (Acute) Acute anemia (Acute) Decubitus ulcer (Acute) Hematoma (Acute) Pain in right toe(s) (Acute) Cellulitis of right foot (Acute) Abscess of toe of right foot (Acute) Infectious arthritis (Acute) Hypoxia (Acute) Suspected sleep apnea (Acute) Acute kidney injury (Acute) 67 year old female w/ h/o CAD s/p 5-vessel CABG, LUE DVT, anemia, and osteomyelitis of right foot admitted for sepsis secondary to UTI. 1) Sepsis secondary UTI: Hypotension is responsive to aggressive fluid resuscitation. S/p 30cc/kg NS bolus. Lactate wnl Cultures pending. C/w zosyn and vancomycin given recent hospitalization / [facility]dc / [place]roy cath. 2) Acute on chronic normocytic anemia: No e/o bleeding. Suspect secondary to critical illness. Transfuse 2 units PRBC. Will get retic, iron, B12 / folate. Serial H and H. 3) LUE DVT: C/w coumadin. Will get INR in AM. 4) CAD s/p CABG: Resume home meds. Monitor.
[2018-05-03] MEDS: Morphine 4 MG/ML Syringe IV (23:37)
[2018-05-03] MEDS: Vancomycin IV 1,000 MG/200 ML BAG 200 MG IV (23:37)
--- NOTE | 2018-05-03 23:53 | NURSING ---
Rut sanchez rn aware that pt ok for floor at this time.
[2018-05-04] VITALS (26 sets, daily range): BP systolic 77–130; BP diastolic 38–70; PULSE 75–98; RESP 16–20; TEMP 36.4–36.9; O2SAT 98–100; BMI 25.4
[2018-05-04 02:41] LABS: Immature Platelet Fraction 0.5 % (1.0-7.9); RET-HE 24.4 pg (30-35); Reticulocyte Count 1.68 % (0.5-1.5)
--- NOTE | 2018-05-04 03:36 | PCM.RX.CS ---
Consult Pharmacy has been consulted to manage selected antiobiotic: Vancomycin Type of Consult: New start Suspected Infection: Sepsis Labs: Sodium 136 mmol/L (136-145) 05/03/18 20:15 Potassium 4.2 mmol/L (3.5-5.1) 05/03/18 20:15 Chloride 103 mmol/L (98-107) 05/03/18 20:15 Carbon Dioxide 23.0 mmol/L (21.0-32.0) 05/03/18 20:15 Anion Gap 10 (5-15) 05/03/18 20:15 BUN 31 mg/dL (7-18) H 05/03/18 20:15 Creatinine 0.66 mg/dL (0.55-1.02) 05/03/18 20:15 Est GFR (MDRD) Af Amer 114 mL/min (>60) 05/03/18 20:15 Est GFR (MDRD) Non-Af 94 mL/min (>60) 05/03/18 20:15 BUN/Creatinine Ratio 46.7 RATIO (10-20) H 05/03/18 20:15 Glucose 179 mg/dL (74-106) H 05/03/18 20:15 Estimated Creatinine Clearance: 40.63 Goal Trough: 15-20 mcg/mL Pharmacy Plan for Drug Dosing: Pharmacy Service will continue to monitor and adjust dosing as required. Medications Piperacillin Sod/Tazobactam Sod (Zosyn) 3.375 gm in 50 mls @ 12.5 mls/hr IV Q8 CAILIN Vancomycin HCl () 500 mg in 100 mls @ 100 mls/hr IV Q12H CAILIN Follow-Up Labs: Trough Vancomycin Labs to be done on [date and time ordered]: 05/05 @ 1130
[2018-05-04 03:51] LABS: Iron 23 ug/dL (50-170); Iron Binding Capacity,Total 223 ug/dL (250-450); PERCENT IRON SATURATION 10.3 % (15.0-55.0)
[2018-05-04] MEDS: 0.9% Normal Saline 1,000 ML 100 ML IV ×3 (06:03→22:20)
[2018-05-04] MEDS: Albuterol 2.5 MG/3 ML VIAL.NEB. INHALATION ×3 (06:42→19:23)
[2018-05-04] MEDS: Budesonide Respules 0.5 MG/2 ML AMPUL.NEB. INHALATION ×2 (06:44→19:23)
[2018-05-04] MEDS: Piperacil/Tazobactam 3.375 GM/50 ML ML IV ×3 (07:16→22:22)
[2018-05-04] MEDS: Gabapentin 300 MG Capsule 600 MG PO ×2 (07:16→22:22)
[2018-05-04 07:31] LABS: Bedside Glucose 209 mg/dL (70-110)
--- NOTE | 2018-05-04 07:40 | NURSING ---
Pt RT arm IV noted to be leaking, difficult to flush, d/c at this time.
[2018-05-04 09:02] LABS: Absolute Lymphocyte Count 0.93 X10^3/ul (0.83-4.51); Basophil# 0.02 X10^3/uL; Basophil% 0.2 % (0-1); Eosinophil# 0.04 X10^3/uL; Eosinophils% 0.5 % (0-5); Hemoglobin 10.3 g/dl (12.0-15.0); Lymphocyte # 0.93 X10^3/ul (4.0); Lymphocyte % 10.6 % (19-41); Mean Corp Hgb Conc 31.2 g/gl (32-36); Mean Corpuscular Hgb 27.1 pg (27.0-32.0); Mean Corpuscular Volume 86.8 fL (81-99); Mean Platelet Vol. 8.1 fl (6.2-12.0); Monocyte# 0.84 X10^3/uL; Monocyte% 9.5 % (0-10); Neutrophil # 6.95 X10^3/uL (2.7-7.7); Neutrophil % 78.9 % (47-70); Platelet Count 418 K/mm3 (150-450); RBC Distribution Width CV 17.3 % (11.6-14.6); RBC Distribution Width SD 52.9 fl (35.1-43.9); White Blood Count 8.8 K/mm3 (4.4-11.0)
[2018-05-04 09:03] LABS: POSITIVE COUNT NO; POSITIVE DIFFERENTIAL NO; POSITIVE MORPHOLOGY NO
[2018-05-04 09:08] LABS: International Normalized Ratio 1.5; Prothrombin Time (Protime)PT. 18.1 SECONDS (11.7-14.9)
[2018-05-04 09:12] LABS: Anion Gap 10 (5-15); BUN 28 mg/dL (7-18); Calcium,Total 7.9 mg/dL (8.5-10.1); Chloride 107 mmol/L (98-107); Creatinine, Serum 0.56 mg/dL (0.55-1.02); EST Glomerular Filtration Rate 114 mL/min (>60); Est Glom Filt Rate - Afr Amer 138 mL/min (>60); Estimated Creatinine Clearance 44.54 ml/min; Glucose 217 mg/dL (74-106); Potassium 3.9 mmol/L (3.5-5.1); Sodium Level 138 mmol/L (136-145)
--- NOTE | 2018-05-04 10:21 | CASEMGMT ---
Addendum entered by Angely Juan 05/04/18 11:05: Green sheet on pt's chart in the event pt is medically cleared to discharge over the weekend. Original Note: Addendum entered by Angely Juan 05/04/18 10:48: DENNY placed a call to [facility] and spoke with Vin WOLFF. Vin WOLFF states that pt was on skilled side at [facility]. Vin states that pt hasn't been at [facility] for very long. He states less than two weeks. DENNY informed Vin that pt plans to return to [facility] once medically cleared. Vin states understanding. Original Note: Social Work Note Pt is listed as being from [facility]. SW in to speak with pt. Pt confirms that she is from [facility] and her plan is to return there at discharge. Plan: Return to [facility] Angely Juan SPIRAL [employer] WINDER, DENTAL SERVICE CHIEF
[2018-05-04] MEDS: Folic Acid 1 MG Tablet PO (10:36)
[2018-05-04] MEDS: glipiZIDE 10 MG Tablet 20 MG PO (10:37)
[2018-05-04] MEDS: Ascorbic Acid 500 MG Tablet PO ×2 (10:37→19:51)
[2018-05-04] MEDS: Iron Polysaccharide Complex 150 MG CAPSULE PO ×2 (10:38→22:22)
[2018-05-04] MEDS: Megestrol Acetate 400 MG/10 ML UDC PO ×2 (10:38→22:23)
[2018-05-04] MEDS: Loratadine 10 MG Tablet PO (10:38)
[2018-05-04] MEDS: Carvedilol 6.25 MG Tablet PO ×2 (10:38→22:22)
[2018-05-04] MEDS: Cyanocobalamin 500 MCG Tablet 1000 MCG PO (10:39)
[2018-05-04] MEDS: Clopidogrel Bisulfate 75 MG Tablet PO (10:39)
[2018-05-04] MEDS: Lisinopril 5 MG Tablet PO (10:39)
[2018-05-04] MEDS: oxyCODONE 5 MG Tablet PO (11:03)
--- NOTE | 2018-05-04 13:14 | PCM.PROGNOTE ---
<Galina Balderas - Last Filed: 05/04/18 14:04> Patient Problems: Active and Suspected Problems (Last Reviewed 05/04/18 @ 02:22 by Lorne Holder MD) Sepsis associated hypotension (Acute) UTI (urinary tract infection) (Acute) Anemia (Acute) DVT (deep venous thrombosis) (Acute) CAD (coronary artery disease) (Acute) Subjective: Patient seen and examined. Denies current complaints. Denies fever, chills. Denies nausea. Denies urinary symptoms. - Physical Exam General: Alert, Oriented x3, Cooperative, No apparent distress HEENT: Atraumatic, PERRLA, EOMI, Normocephalic Oral: Moist Mucosa Neck: Supple, No JVD, Negative Carotid Bruits Lungs: Clear to auscultation, Normal air movement Cardiovascular: Regular rate, Regular Rhythm, Normal S1, Normal S2, Murmur Abdomen: Bowel Sounds Present, Soft, Non Tender, Non-Distended Extremities: No edema, Capillary Refill Less than 3 Seconds Skin: - - Coccyx decubital ulcer, dressing clean dry and intact. Musculoskeletal: No Tenderness to Palpation of Joints or Extremities Neurological: Cranial nerves II-XII grossly intact, Neuro grossly intact Psych/Mental Status: Normal Affect, Appropriate Vital Signs Temp Pulse Resp BP Pulse Ox 97.5 F L 87 18 130/70 H 100 05/04/18 09:06 05/04/18 09:06 05/04/18 09:06 05/04/18 09:06 05/04/18 09:08 Oxygen Flow Rate (L/min) 2 Oxygen Delivery Method Nasal Cannula Weight: 143 lb 4.807 oz Body Mass Index (BMI) 25.4 Intake and Output for Last 24 Hours 05/02/18 05/03/18 05/04/18 23:59 23:59 23:59 Intake Total 902 / 902 Output Total 150 / 150 Balance 752 / 752 Microbiology Past 72 Hours 05/04/18 10:30 Stool Occult Blood (YANCY) - Final Stool Occult Blood Positive Laboratory Tests Past 24 Hrs 05/04/18 05/04/18 05/04/18 08:46 08:46 08:46 WBC 8.8 RBC 3.80 L Hgb 10.3 L Hct 33.0 L MCV 86.8 MCH 27.1 MCHC 31.2 L RDW 17.3 H RDW Differential 52.9 H Plt Count 418 MPV 8.1 Immature Gran % (Auto) 0.300 Neut % (Auto) 78.9 H Lymph % (Auto) 10.6 L Hall % (Auto) 9.5 Eos % (Auto) 0.5 Baso % (Auto) 0.2 Absolute Neuts (auto) 7.0 Absolute Lymphs (auto) 0.93 Total Counted Not Reportable PT 18.1 H INR 1.5 Sodium 138 Potassium 3.9 Chloride 107 Carbon Dioxide 21.0 Anion Gap 10 BUN 28 H Creatinine 0.56 Estim Creat Clear Calc 44.54 Est GFR (MDRD) Af Amer 138 Est GFR (MDRD) Non-Af 114 BUN/Creatinine Ratio 50.0 H Glucose 217 H Calcium 7.9 L Vitamin B12 05/04/18 08:46 WBC RBC Hgb Hct MCV MCH MCHC RDW RDW Differential Plt Count MPV Immature Gran % (Auto) Neut % (Auto) Lymph % (Auto) Hall % (Auto) Eos % (Auto) Baso % (Auto) Absolute Neuts (auto) Absolute Lymphs (auto) Total Counted PT INR Sodium Potassium Chloride Carbon Dioxide Anion Gap BUN Creatinine Estim Creat Clear Calc Est GFR (MDRD) Af Amer Est GFR (MDRD) Non-Af BUN/Creatinine Ratio Glucose Calcium Vitamin B12 Pending POC Glucose 05/04/18 07:22 POC Glucose 209 H Medical Necessity - Tobacco Use Smoking Status: Former smoker Assessment/Plan All Active Problems (Last Reviewed 05/04/18 @ 02:22 by Lorne Holder MD) Sepsis associated hypotension (Acute) UTI (urinary tract infection) (Acute) Anemia (Acute) DVT (deep venous thrombosis) (Acute) CAD (coronary artery disease) (Acute) Open wound of left thigh (Acute) Open wound of left lower extremity (Acute) Traumatic hematoma of left thigh (Acute) Traumatic hematoma of left lower leg (Acute) Skin necrosis (Acute) Osteomyelitis of left foot (Acute) Acute anemia (Acute) Decubitus ulcer (Acute) Hematoma (Acute) Pain in right toe(s) (Acute) Cellulitis of right foot (Acute) Abscess of toe of right foot (Acute) Infectious arthritis (Acute) Hypoxia (Acute) Suspected sleep apnea (Acute) Acute kidney injury (Acute) 1. Acute sepsis secondary to gram-negative UTI vs chronic decubital coccyx ulcer-Allen changed out in ER. Continue IV Zosyn. Urine cultures showing gram-negative stevenson, final pending. Blood cultures pending. Leukocytosis resolved. Patient has been afebrile overnight. Patient has chronic Allen due to chronic coccyx decubital ulcer which is extensive. 2. Chronic coccyx decubital ulcer, present on admission-patient has multiple other areas of wounds as well including right heel, left medial barboza. Continue daily and as needed dressing changes. Wound RN consult. Frequent position changing. Nursing notes drainage from coccyx ulcer which was previously debrided by Dr. Ivory 03/05/2018. Consult Dr. Ivory. Send culture. Patient has a history of ESBL positive wound culture from coccyx. Consult infectious disease. 3. Acute on chronic iron deficiency anemia, anemia of chronic disease-transfused with 2 units packed red blood cells. Stool positive for occult blood. Trend CBC. If hemoglobin continues to drop, consider surgery consult. Continue Coumadin for now. Patient's hemoglobin has ranged from 68 since February 2018. Prior to this, her hemoglobin was 10-13. Continue iron supplementation. 4. Recent left upper extremity DVT-continue Coumadin. Unclear when DVT was initially diagnosed. 5. CAD status post three-vessel CABG-Continue Plavix, carvedilol, Coumadin. 6. Hypertension-continue home regimen including lisinopril, carvedilol, Lasix. 7. Hyperlipidemia-continue statin. 8. Type 2 diabetes mellitus-hold home oral regimen. Accu-Cheks before meals at bedtime with sliding scale insulin. 9. Diabetic neuropathy-continue home gabapentin regimen. 10. Chronic COPD/asthma-DuoNeb aerosols as needed. Continue home Singulair regimen. 11. Tobacco dependence-encourage smoking cessation. 12. Obstructive sleep apnea-continue CPAP nightly. 13. GERD-continue PPI. DVT prophylaxis-Coumadin. This patient was seen by LUCIE Jim under the supervision of Dr. Landrum. <Scott Landrum - Last Filed: 05/04/18 15:18> - Physical Exam Vital Signs Temp Pulse Resp BP Pulse Ox 97.8 F 86 16 97/49 L 99 05/04/18 14:42 05/04/18 14:42 05/04/18 14:42 05/04/18 14:42 08/18/18 14:42 Oxygen Flow Rate (L/min) 2 Oxygen Delivery Method Nasal Cannula Weight: 65 kg Body Mass Index (BMI) 25.4 Intake and Output for Last 24 Hours 05/02/18 05/03/18 05/04/18 23:59 23:59 23:59 Intake Total 2257 / 2257 Output Total 400 / 400 Balance 1857 / 1857 Microbiology Past 72 Hours 05/04/18 10:30 Stool Occult Blood (YANCY) - Final Stool Occult Blood Positive Laboratory Tests Past 24 Hrs 05/04/18 05/04/18 05/04/18 08:46 08:46 08:46 WBC 8.8 RBC 3.80 L Hgb 10.3 L Hct 33.0 L MCV 86.8 MCH 27.1 MCHC 31.2 L RDW 17.3 H RDW Differential 52.9 H Plt Count 418 MPV 8.1 Immature Gran % (Auto) 0.300 Neut % (Auto) 78.9 H Lymph % (Auto) 10.6 L Hall % (Auto) 9.5 Eos % (Auto) 0.5 Baso % (Auto) 0.2 Absolute Neuts (auto) 7.0 Absolute Lymphs (auto) 0.93 Total Counted Not Reportable PT 18.1 H INR 1.5 Sodium 138 Potassium 3.9 Chloride 107 Carbon Dioxide 21.0 Anion Gap 10 BUN 28 H Creatinine 0.56 Estim Creat Clear Calc 44.54 Est GFR (MDRD) Af Amer 138 Est GFR (MDRD) Non-Af 114 BUN/Creatinine Ratio 50.0 H Glucose 217 H Calcium 7.9 L Vitamin B12 05/04/18 08:46 WBC RBC Hgb Hct MCV MCH MCHC RDW RDW Differential Plt Count MPV Immature Gran % (Auto) Neut % (Auto) Lymph % (Auto) Hall % (Auto) Eos % (Auto) Baso % (Auto) Absolute Neuts (auto) Absolute Lymphs (auto) Total Counted PT INR Sodium Potassium Chloride Carbon Dioxide Anion Gap BUN Creatinine Estim Creat Clear Calc Est GFR (MDRD) Af Amer Est GFR (MDRD) Non-Af BUN/Creatinine Ratio Glucose Calcium Vitamin B12 Pending POC Glucose 05/04/18 07:22 POC Glucose 209 H Assessment/Plan This patient was seen in conjunction with LUCIE Jim. I have independently interviewed and examined the patient and reviewed pertinent historical, laboratory, and other data. Please refer to LUCIE Jim note for details of this patient's presentation, findings, and recommendations. I have reviewed LUCIE Jim note and concur with documented findings. In brief, patient 67-year-old F with multiple comorbidities admitted admitted with progressive generalized weakness and fever and assessment of sepsis secondary to UTI was made. Patient admitted to a monitored bed for subsequent management Physical Examination: GENERAL: Flat affect HEENT: Clear conjunctiva, NECK; supple, normal thyroid, CHEST: Diminished to auscultation HEART: Regular S1 S2, BOXING PROMOTER: Awake; no lateralizing signs. Assessment: 1. Sepsis secondary to UTI due to the presence of Allen catheter present on admission 2. Stage III coccyx decubitus ulcer 3. Anemia secondary to anemia of chronic disorder 4. DVT involving the left upper extremity diagnosed in February 2018 5. CAD with previous three-vessel CABG currently recommended medication 6. Essential hypertension 7. Dyslipidemia 8. Diabetes mellitus type 2 with complications including diabetic nephropathy 9. COPD 10. Bronchial asthma 11. Tobacco dependence 12. Obstructive sleep apnea 13. GERD 14. Tobacco dependence 15. DVT prophylaxis is on Coumadin no need for additional measures Advanced planning: Patient CODE STATUS was discussed with him she wishes to remain full code at this point time spent on discussion 16 minutes Recommendations: 1. I have discussed the results of my overview and impressions with the patient 2. Options for management were reviewed Code Visit Inpatient E&M: 16917 Subs Hosp L3 Procedures: 62825 Advncd Care Plan 30 Min
[2018-05-04] MEDS: Glucerna Shake 120 ML LIQUID PO ×3 (13:46→22:21)
[2018-05-04] MEDS: Vancomycin IV 500 MG/100 ML BAG 100 MG IV (13:46)
[2018-05-04 17:00] LABS: Bedside Glucose 266 mg/dL (70-110)
[2018-05-04] MEDS: Insulin Lispro 100 UNIT/ML INSULN.PEN SC ×2 (19:53→22:23)
[2018-05-04] MEDS: Mirtazapine 15 MG Tablet 7.5 MG PO (22:22)
[2018-05-04] MEDS: MELATONIN 3 MG TABLET PO (22:23)
[2018-05-04 23:11] LABS: Bedside Glucose 277 mg/dL (70-110)
[2018-05-05] VITALS (12 sets, daily range): BP systolic 113–142; BP diastolic 65–69; PULSE 84–100; RESP 16–20; TEMP 36.6–37.3; O2SAT 95–96
[2018-05-05] MEDS: 0.9% NaCl Peripheral Flush Adult/Peds IV ×2 (00:08→17:33)
[2018-05-05] MEDS: Vancomycin IV 500 MG/100 ML BAG 100 MG IV ×2 (00:08→12:11)
[2018-05-05 06:31] LABS: Hematocrit 27.7 % (37-47); Hemoglobin 8.6 g/dl (12.0-15.0); Mean Corpuscular Hgb 26.7 pg (27.0-32.0); Mean Platelet Vol. 8.3 fl (6.2-12.0); Platelet Count 393 K/mm3 (150-450); RBC Distribution Width CV 17.2 % (11.6-14.6); RBC Distribution Width SD 51.9 fl (35.1-43.9); Red Blood Count 3.22 M/mm3 (4.2-5.4); White Blood Count 7.3 K/mm3 (4.4-11.0)
[2018-05-05 06:36] LABS: Anion Gap 9 (5-15); BUN 22 mg/dL (7-18); BUN/Creat Ratio 59.1 RATIO (10-20); Calcium,Total 7.6 mg/dL (8.5-10.1); Chloride 109 mmol/L (98-107); Creatinine, Serum 0.37 mg/dL (0.55-1.02); EST Glomerular Filtration Rate 183 mL/min (>60); Est Glom Filt Rate - Afr Amer 222 mL/min (>60); Estimated Creatinine Clearance 44.54 ml/min; Glucose 230 mg/dL (74-106); Potassium 3.4 mmol/L (3.5-5.1); Sodium Level 139 mmol/L (136-145)
[2018-05-05] MEDS: Gabapentin 300 MG Capsule 600 MG PO ×3 (06:38→22:16)
[2018-05-05] MEDS: 0.9% Normal Saline 1,000 ML 100 ML IV ×2 (06:39→17:35)
[2018-05-05] MEDS: Piperacil/Tazobactam 3.375 GM/50 ML ML IV ×3 (06:39→22:08)
[2018-05-05 06:44] LABS: Scan Indicated on CBC? Y/N NO
[2018-05-05 07:00] LABS: Bedside Glucose 210 mg/dL (70-110)
[2018-05-05] MEDS: Albuterol 2.5 MG/3 ML VIAL.NEB. INHALATION ×2 (07:09→12:55)
[2018-05-05] MEDS: Budesonide Respules 0.5 MG/2 ML AMPUL.NEB. INHALATION (07:09)
[2018-05-05] MEDS: Clopidogrel Bisulfate 75 MG Tablet PO (09:17)
[2018-05-05] MEDS: Loratadine 10 MG Tablet PO (09:17)
[2018-05-05] MEDS: Lisinopril 5 MG Tablet PO (09:17)
[2018-05-05] MEDS: Carvedilol 6.25 MG Tablet PO ×2 (09:17→22:13)
[2018-05-05] MEDS: glipiZIDE 10 MG Tablet 20 MG PO (09:17)
[2018-05-05] MEDS: Cyanocobalamin 500 MCG Tablet 1000 MCG PO (09:17)
[2018-05-05] MEDS: Ascorbic Acid 500 MG Tablet PO ×2 (09:17→17:35)
[2018-05-05] MEDS: Folic Acid 1 MG Tablet PO (09:17)
[2018-05-05] MEDS: Glucerna Shake 120 ML LIQUID PO ×2 (09:18→22:13)
[2018-05-05] MEDS: Insulin Lispro 100 UNIT/ML INSULN.PEN SC ×4 (09:18→22:13)
[2018-05-05] MEDS: Megestrol Acetate 400 MG/10 ML UDC PO ×2 (09:18→22:15)
--- NOTE | 2018-05-05 09:45 | PCM.PROGNOTE ---
<Galina Balderas - Last Filed: 05/05/18 11:41> Patient Problems: Active and Suspected Problems (Last Reviewed 05/04/18 @ 02:22 by Lorne Holder MD) Sepsis associated hypotension (Acute) UTI (urinary tract infection) (Acute) Anemia (Acute) DVT (deep venous thrombosis) (Acute) CAD (coronary artery disease) (Acute) Subjective: Patient seen and examined. Drowsy on assessment. States she is supple overnight. Denies current complaints. Denies fever, chills. - Physical Exam General: - - Drowsy, no apparent distress. HEENT: Atraumatic, PERRLA, EOMI, Normocephalic Neck: Supple, No JVD, Negative Carotid Bruits Lungs: Clear to auscultation, Normal air movement Cardiovascular: Regular rate, Regular Rhythm, Normal S1, Normal S2, Murmur Abdomen: Bowel Sounds Present, Soft, Non Tender, Non-Distended Extremities: No clubbing, No cyanosis, No edema, Capillary Refill Less than 3 Seconds Skin: - - Sacral ulcer clean, dry, intact. Multiple wounds including left lower extremity, bilateral heels, bilateral arms. Musculoskeletal: No Tenderness to Palpation of Joints or Extremities Neurological: Cranial nerves II-XII grossly intact, Neuro grossly intact Psych/Mental Status: Normal Affect, Appropriate Vital Signs Temp Pulse Resp BP Pulse Ox 98.5 F 89 18 115/65 96 05/05/18 09:00 05/05/18 09:00 05/05/18 09:00 05/05/18 09:00 05/05/18 09:00 Oxygen Flow Rate (L/min) 1 Oxygen Delivery Method Nasal Cannula Weight: 143 lb 4.807 oz Body Mass Index (BMI) 25.4 Intake and Output for Last 24 Hours 05/03/18 05/04/18 05/05/18 23:59 23:59 23:59 Intake Total 3297 / 3297 1146 / 1146 Output Total 650 / 650 1230 / 1230 Balance 2647 / 2647 -84 / -84 Microbiology Past 72 Hours 05/04/18 15:00 C. difficile DNA Amplification - Final Stool 05/04/18 10:30 Stool Occult Blood (YANCY) - Final Stool Occult Blood Positive Laboratory Tests Past 24 Hrs 05/05/18 05/05/18 05:00 05:00 WBC 7.3 RBC 3.22 L Hgb 8.6 L Hct 27.7 L MCV 86.0 MCH 26.7 L MCHC 31.0 L RDW 17.2 H RDW Differential 51.9 H Plt Count 393 MPV 8.3 Sodium 139 Potassium 3.4 L Chloride 109 H Carbon Dioxide 21.0 Anion Gap 9 BUN 22 H Creatinine 0.37 L Estim Creat Clear Calc 44.54 Est GFR (MDRD) Af Amer 222 Est GFR (MDRD) Non-Af 183 BUN/Creatinine Ratio 59.1 H Glucose 230 H Calcium 7.6 L POC Glucose 05/05/18 05/04/18 05/04/18 06:43 22:17 16:58 POC Glucose 210 H 277 H 266 H Medical Necessity - Tobacco Use Smoking Status: Former smoker Assessment/Plan All Active Problems (Last Reviewed 05/04/18 @ 02:22 by Lorne Holder MD) Sepsis associated hypotension (Acute) UTI (urinary tract infection) (Acute) Anemia (Acute) DVT (deep venous thrombosis) (Acute) CAD (coronary artery disease) (Acute) Open wound of left thigh (Acute) Open wound of left lower extremity (Acute) Traumatic hematoma of left thigh (Acute) Traumatic hematoma of left lower leg (Acute) Skin necrosis (Acute) Osteomyelitis of left foot (Acute) Acute anemia (Acute) Decubitus ulcer (Acute) Hematoma (Acute) Pain in right toe(s) (Acute) Cellulitis of right foot (Acute) Abscess of toe of right foot (Acute) Infectious arthritis (Acute) Hypoxia (Acute) Suspected sleep apnea (Acute) Acute kidney injury (Acute) 1. Acute sepsis secondary to gram-negative UTI vs chronic decubital coccyx ulcer-Allen changed out in ER. Continue IV Zosyn. Urine cultures showing gram-negative stevenson, final pending. Blood cultures pending. Leukocytosis resolved. Patient has been afebrile overnight. Patient has chronic Allen due to chronic coccyx decubital ulcer which is extensive. 2. Chronic stage III coccyx decubital ulcer, present on admission-patient has multiple other areas of wounds as well including right heel, left medial barboza. Continue daily and as needed dressing changes. Wound RN consult. Frequent position changing. Nursing notes drainage from coccyx ulcer which was previously debrided by Dr. Ivory 03/05/2018. Consult Dr. Ivory. Wound culture pending. Patient has a history of ESBL positive wound culture from coccyx. Consult infectious disease. 3. Acute on chronic iron deficiency anemia, anemia of chronic disease-transfused with 2 units packed red blood cells. Stool positive for occult blood. Trend CBC. If hemoglobin continues to drop, consider surgery consult. Continue Coumadin for now. Patient's hemoglobin has ranged from 6-8 since February 2018. Prior to this, her hemoglobin was 10-13. Continue iron supplementation. 4. Recent left upper extremity DVT-continue Coumadin. Unclear when DVT was initially diagnosed, appears to be in February 2018. 5. CAD status post three-vessel CABG-Continue Plavix, carvedilol, Coumadin. 6. Hypertension-continue home regimen including lisinopril, carvedilol, Lasix. 7. Hyperlipidemia-continue statin. 8. Type 2 diabetes mellitus-hold home oral regimen. Accu-Cheks before meals at bedtime with sliding scale insulin. 9. Diabetic neuropathy-continue home gabapentin regimen. 10. Chronic COPD/asthma-DuoNeb aerosols as needed. Continue home Singulair regimen. 11. Tobacco dependence-encourage smoking cessation. 12. Obstructive sleep apnea-continue CPAP nightly. 13. GERD-continue PPI. DVT prophylaxis-Coumadin. This patient was seen by LUCIE Jim under the supervision of Dr. Landrum. <Scott Landrum - Last Filed: 05/05/18 11:52> - Physical Exam Vital Signs Temp Pulse Resp BP Pulse Ox 98.5 F 94 18 115/65 96 05/05/18 09:00 05/05/18 11:06 05/05/18 09:00 05/05/18 09:00 05/05/18 09:00 Oxygen Flow Rate (L/min) 1 Oxygen Delivery Method Nasal Cannula Weight: 65 kg Body Mass Index (BMI) 25.4 Intake and Output for Last 24 Hours 05/03/18 05/04/18 05/05/18 23:59 23:59 23:59 Intake Total 3297 / 3297 1146 / 1146 Output Total 650 / 650 1230 / 1230 Balance 2647 / 2647 -84 / -84 Microbiology Past 72 Hours 05/04/18 14:50 Gram Stain - Final Wound - Sacral Wound Culture - Preliminary GNR lactose brewmaster GNR lactose brewmaster#2 05/04/18 15:00 C. difficile DNA Amplification - Final Stool 05/04/18 10:30 Stool Occult Blood (YANCY) - Final Stool Occult Blood Positive Laboratory Tests Past 24 Hrs 05/05/18 05/05/18 05/05/18 05:00 05:00 11:05 WBC 7.3 RBC 3.22 L Hgb 8.6 L Hct 27.7 L MCV 86.0 MCH 26.7 L MCHC 31.0 L RDW 17.2 H RDW Differential 51.9 H Plt Count 393 MPV 8.3 Sodium 139 Potassium 3.4 L Chloride 109 H Carbon Dioxide 21.0 Anion Gap 9 BUN 22 H Creatinine 0.37 L Estim Creat Clear Calc 44.54 Est GFR (MDRD) Af Amer 222 Est GFR (MDRD) Non-Af 183 BUN/Creatinine Ratio 59.1 H Glucose 230 H Calcium 7.6 L Vancomycin Trough Pending POC Glucose 05/05/18 05/04/18 05/04/18 06:43 22:17 16:58 POC Glucose 210 H 277 H 266 H Assessment/Plan This patient was seen in conjunction with LUCIE Jim. I have independently interviewed and examined the patient and reviewed pertinent historical, laboratory, and other data. Please refer to LUCIE Jim note for details of this patient's presentation, findings, and recommendations. I have reviewed LUCIE Jim note and concur with documented findings. In brief, patient 67-year-old F with multiple comorbidities admitted admitted with progressive generalized weakness and fever and assessment of sepsis secondary to UTI was made. Patient admitted to a monitored bed for subsequent management 05/05/2019; patient wound cultures and urine cultures both growing gram negative rods final identification and sensitivities pending Physical Examination: GENERAL: Flat affect HEENT: Clear conjunctiva, NECK; supple, normal thyroid, CHEST: Diminished to auscultation HEART: Regular S1 S2, WASHERY ENGINEER: Awake; no lateralizing signs. Assessment: 1. Sepsis secondary to UTI due to the presence of Allen catheter present on admission 2. Stage III coccyx decubitus ulcer 3. Anemia secondary to anemia of chronic disorder 4. DVT involving the left upper extremity diagnosed in February 2018 5. CAD with previous three-vessel CABG currently recommended medication 6. Essential hypertension 7. Dyslipidemia 8. Diabetes mellitus type 2 with complications including diabetic nephropathy 9. COPD 10. Bronchial asthma 11. Tobacco dependence 12. Obstructive sleep apnea 13. GERD 14. Tobacco dependence 15. DVT prophylaxis is on Coumadin no need for additional measures Advanced planning: Patient CODE STATUS was discussed with him she wishes to remain full code at this point time spent on discussion 16 minutes Recommendations: 1. I have discussed the results of my overview and impressions with the patient 2. Options for management were reviewed Code Visit Inpatient E&M: 11469 Subs Hosp L3
[2018-05-05 12:08] LABS: Vancomycin, Trough Level 6.7 ug/mL (5.0-15.0)
[2018-05-05] MEDS: oxyCODONE 5 MG Tablet PO ×3 (12:11→22:18)
[2018-05-05 12:35] LABS: Bedside Glucose 263 mg/dL (70-110)
[2018-05-05 16:36] LABS: Bedside Glucose 231 mg/dL (70-110)
[2018-05-05 17:28] LABS: Hematocrit 30.8 % (37-47); Hemoglobin 9.6 g/dl (12.0-15.0)
[2018-05-05] MEDS: Ferrous Sulfate 325 MG Tablet PO (17:38)
--- NOTE | 2018-05-05 21:09 | PCM.RX.CS ---
Consult Pharmacy has been consulted to manage selected antiobiotic: Vancomycin Type of Consult: Follow-up Suspected Infection: Sepsis Labs: Sodium 139 mmol/L (136-145) 05/05/18 05:00 Potassium 3.4 mmol/L (3.5-5.1) L 05/05/18 05:00 Chloride 109 mmol/L (98-107) H 05/05/18 05:00 Carbon Dioxide 21.0 mmol/L (21.0-32.0) 05/05/18 05:00 Anion Gap 9 (5-15) 05/05/18 05:00 BUN 22 mg/dL (7-18) H 05/05/18 05:00 Creatinine 0.37 mg/dL (0.55-1.02) L 05/05/18 05:00 Est GFR (MDRD) Af Amer 222 mL/min (>60) 05/05/18 05:00 Est GFR (MDRD) Non-Af 183 mL/min (>60) 05/05/18 05:00 BUN/Creatinine Ratio 59.1 RATIO (10-20) H 05/05/18 05:00 Glucose 230 mg/dL (74-106) H 05/05/18 05:00 Vancomycin Trough 6.7 ug/mL (5.0-15.0) 05/05/18 11:05 Microbiology: Microbiology 05/04/18 14:50 Wound - Sacral Gram Stain - Final 05/04/18 14:50 Wound - Sacral Wound Culture - Preliminary GNR lactose feather shaper GNR lactose feather shaper#2 05/04/18 15:00 Stool C. difficile DNA Amplification - Final 05/04/18 10:30 Stool Stool Occult Blood (YANCY) - Final Occult Blood Positive Estimated Creatinine Clearance: 44.54 Goal Trough: 15-20 mcg/mL Pharmacy Plan for Drug Dosing: Pharmacy Service will continue to monitor and adjust dosing as required. Medications Vancomycin HCl 1,250 mg/ (Sodium Chloride) 275 mls @ 167 mls/hr IV Q12H [facility] Follow-Up Labs: Trough Vancomycin Labs to be done on [date and time ordered]: 05/07 @ 1400
[2018-05-05] MEDS: MELATONIN 3 MG TABLET PO (22:16)
[2018-05-05] MEDS: Mirtazapine 15 MG Tablet 7.5 MG PO (22:16)
[2018-05-05 22:30] LABS: Bedside Glucose 301 mg/dL (70-110)
[2018-05-06] VITALS (8 sets, daily range): BP systolic 114–138; BP diastolic 65–76; PULSE 87–97; RESP 16–20; TEMP 36.4–36.9; O2SAT 95–97
[2018-05-06 05:33] LABS: Mean Corpuscular Hgb 26.8 pg (27.0-32.0); Mean Corpuscular Volume 86.3 fL (81-99); Mean Platelet Vol. 8.1 fl (6.2-12.0); Platelet Count 379 K/mm3 (150-450); RBC Distribution Width CV 17.4 % (11.6-14.6); RBC Distribution Width SD 53.4 fl (35.1-43.9); Red Blood Count 3.36 M/mm3 (4.2-5.4); White Blood Count 7.2 K/mm3 (4.4-11.0)
[2018-05-06 05:43] LABS: Scan Indicated on CBC? Y/N NO
[2018-05-06 05:45] LABS: Anion Gap 10 (5-15); BUN 15 mg/dL (7-18); BUN/Creat Ratio 53.8 RATIO (10-20); Calcium,Total 7.7 mg/dL (8.5-10.1); Chloride 112 mmol/L (98-107); Creatinine, Serum 0.28 mg/dL (0.55-1.02); EST Glomerular Filtration Rate 255 mL/min (>60); Est Glom Filt Rate - Afr Amer 309 mL/min (>60); Estimated Creatinine Clearance 44.54 ml/min; Glucose 264 mg/dL (74-106); Potassium 4.1 mmol/L (3.5-5.1); Sodium Level 141 mmol/L (136-145)
[2018-05-06] MEDS: 0.9% Normal Saline 1,000 ML 100 ML IV ×2 (06:03→16:46)
[2018-05-06] MEDS: 0.9% NaCl Peripheral Flush Adult/Peds IV (06:05)
[2018-05-06] MEDS: Piperacil/Tazobactam 3.375 GM/50 ML ML IV (06:07)
[2018-05-06] MEDS: Gabapentin 300 MG Capsule 600 MG PO ×2 (06:10→14:27)
[2018-05-06] MEDS: Albuterol 2.5 MG/3 ML VIAL.NEB. INHALATION (06:58)
[2018-05-06] MEDS: Budesonide Respules 0.5 MG/2 ML AMPUL.NEB. INHALATION (06:58)
[2018-05-06 07:01] LABS: Bedside Glucose 271 mg/dL (70-110)
[2018-05-06] MEDS: glipiZIDE 10 MG Tablet 20 MG PO (08:30)
[2018-05-06] MEDS: Folic Acid 1 MG Tablet PO (08:30)
[2018-05-06] MEDS: Ferrous Sulfate 325 MG Tablet PO ×2 (08:30→16:51)
[2018-05-06] MEDS: Ascorbic Acid 500 MG Tablet PO ×2 (08:31→16:51)
[2018-05-06] MEDS: Carvedilol 6.25 MG Tablet PO (08:31)
[2018-05-06] MEDS: Megestrol Acetate 400 MG/10 ML UDC PO (08:31)
[2018-05-06] MEDS: Loratadine 10 MG Tablet PO (08:31)
[2018-05-06] MEDS: oxyCODONE 5 MG Tablet PO ×2 (08:32→14:41)
[2018-05-06] MEDS: Clopidogrel Bisulfate 75 MG Tablet PO (08:32)
[2018-05-06] MEDS: Lisinopril 5 MG Tablet PO (08:32)
[2018-05-06] MEDS: Cyanocobalamin 500 MCG Tablet 1000 MCG PO (08:32)
[2018-05-06] MEDS: Insulin Lispro 100 UNIT/ML INSULN.PEN SC ×2 (08:34→16:47)
[2018-05-06] MEDS: Glucerna Shake 120 ML LIQUID PO ×3 (08:45→16:51)
[2018-05-06 09:31] LABS: Vitamin B12 > 2000 pg/mL (211-911)
--- NOTE | 2018-05-06 09:51 | NURSING ---
wound photo: left leg
--- NOTE | 2018-05-06 09:52 | NURSING ---
wound photo: left lateral lower leg
--- NOTE | 2018-05-06 09:52 | NURSING ---
wound photo: sacrum
--- NOTE | 2018-05-06 09:53 | NURSING ---
wound photo: right heel
--- NOTE | 2018-05-06 11:17 | CASEMGMT ---
Addendum entered by Angely Foster 05/06/18 11:41: This RN CM received call back from Colette at [facility] and she states that Dr. Antunez, plastic surgeon, is who debrided pt's wounds while at [facility]. Pt states that that is correct at this time. Seble DOOLEY aware at this time and voices understanding. Rossy WOLFF CM Original Note: Per Seble DOOLEY, pt may need to go to [facility] instead of back to SNF. This RN CM to room to speak with pt regarding same and pt states that she was discharged from there a week ago and is not sure that she would like to go back at this time. Pt states that she had a debridement with a plastic surgeon while at [facility] and states would like that physician to do the debridement that Seble DOOLEY and Phillip Wound nurse, state that pt needs again at this time. Pt states adamantly that she does not want Dr. Ivory to be consulted here. Pt cannot remember the name of the physician at [facility] at this time. This RN CM placed call to [facility] to verify which physician completed debridement there and they are to call this RN CM back. Rossy WOLFF CM
[2018-05-06 11:36] LABS: Bedside Glucose 303 mg/dL (70-110)
--- NOTE | 2018-05-06 11:58 | PCM.HP.ID ---
Problem List (1) UTI (urinary tract infection) Status: Acute (2) Stage IV pressure ulcer of sacral region Status: Chronic Reason for Consult: fever Consulted by: Dr. Soto History of Present Illness: The patient is a 67 year old F with DM and CAD and recent prolonged hospital stays. Got CABG. Treated for R foot osteo, then infections in LLE and sacrum. Had ESBL in sacrum from cx here at [facility]. At [facility] in [place], completed course of meropenem and voriconazole. Treated for LLE infection wound cx (+) Acinetobacter. CT scans at [facility] showed possible cholecystitis and possible intra-abd abscess near bladder. Surgery followed, abd exam was benign, and no intervention was thought to be necessary. Discharged on po abx to [facility]. Now with several days of poor appetite, acute onset confusion, sent to ED. Cxs sent, started on vanc/zosyn. Feeling better today. Full ROS performed and neg except as noted above. - Medical History Past Medical History (Chronic Problems): Chronic Problems (Last Reviewed 05/04/18 @ 02:22 by Lorne Holder MD) Atherosclerotic heart disease of [place] coronary artery without angina pectoris (Chronic) CABG x5 - LE to LAD, SVG to diag, SVG to OM1, SVG to OM2, SVG to PDA @[facility] on 02/15/18 Nonrheumatic mitral valve regurgitation (Chronic) Stage IV pressure ulcer of sacral region (Chronic) Unstageable pressure ulcer of sacral region (Chronic) Obesity (Chronic) Neuropathic pain (Chronic) S/P CABG (coronary artery bypass graft) (Chronic ~02/15/18) Recent CABG x5 - LE to LAD, SVG to diag, SVG to OM1, SVG to OM2, SVG to PDA @[facility] on 02/15/18, team contact SOUMYA Rhodes. Acute deep vein thrombosis (DVT) of left upper extremity (Chronic) Recent LUE DVT while at [facility] s/p CABG. On therapeutic lovenox/coumadin bridge awaiting INR to be therapeutic. Foot osteomyelitis, right (Chronic) Recent R Foot Osteomyelitis, maintained on meropenem and voriconazole for planned addition 6 weeks of treatment per Dr. Palmer direction. Type 2 diabetes mellitus (Chronic) Obesity (BMI 30.0-34.9) (Chronic) HERNANDEZ (dyspnea on exertion) (Chronic) ELDER (obstructive sleep apnea) (Chronic) COPD (chronic obstructive pulmonary disease) (Chronic) Neuropathic pain (Chronic) Allergic rhinitis (Chronic) Asthma (Chronic) Mild asthma (Chronic) Osteoarthritis (Chronic) Hyperlipidemia (Chronic) Hypertension (Chronic) Type 2 diabetes mellitus (Chronic) Allergies/Adverse Reactions: Allergies lisinopril Adverse Reaction (Verified 02/26/18 11:13) Other metronidazole Adverse Reaction (Verified 02/26/18 11:13) Other Home Medications: Ambulatory Orders Medication Instructions Recorded Lisinopril [Prinivil] 5 mg PO DAILY 01/18/17 gabapentin 300 mg capsule 600 mg PO TID cap 08/23/17 Loratadine 10 mg PO DAILY 09/18/17 Ascorbic Acid [Vitamin C] 500 mg PO BIDCM 03/04/18 Carvedilol [Coreg] 6.25 mg PO BID 03/04/18 Clopidogrel Bisulfate [Plavix] 75 mg PO DAILY 03/04/18 Folic Acid 1 mg PO DAILY@0800 03/04/18 Furosemide [Lasix] 40 mg PO DAILY 03/04/18 Insulin Detemir [Levemir FlexPen] 10 units SC QHS 03/04/18 Insulin Lispro [Humalog KwikPen] 9 unit SQ DAILY@1200 03/04/18 Insulin Lispro [Humalog KwikPen] 9 unit SQ DAILY@1700 03/04/18 Insulin Lispro [Humalog KwikPen] 11 unit SQ BREAKFAST 03/04/18 Ipratropium/Albuterol Sulfate 3 ml INHALATION Q2H PRN 03/04/18 [Duoneb] Iron Polysaccharide Complex 150 mg PO BID 03/04/18 [Ferrex 150] Melatonin 3 mg PO QHS 03/04/18 Nystatin Powder [Mycostatin Powder] 1 applic TOPICAL BID 03/04/18 Oxycodone [Oxyir] 5 mg PO Q4H PRN PRN 03/04/18 Benzocaine/Menthol [Cepacol Sore 1 lozenge MM PRN PRN 05/03/18 Throat Lozenge] Bisacodyl 10 mg RC PRN PRN 05/03/18 Ciprofloxacin [Cipro] 500 mg PO Q12H 05/03/18 Cyanocobalamin (Vitamin B-12) 1,000 mcg PO DAILY 05/03/18 [B-12] Dicyclomine HCl 10 mg PO Q6H PRN 05/03/18 Fluticasone/Vilanterol [Breo 1 puff PO DAILY 05/03/18 Ellipta 200-25 Mcg INH] Glipizide [Glucotrol] 20 mg PO DAILY 05/03/18 Insulin Lispro [Humalog KwikPen] See Protocol SC ACHS 05/03/18 Megestrol Acetate 10 ml PO BID 05/03/18 Metronidazole 500 mg PO TID 05/03/18 Mirtazapine 7.5 mg PO QHS 05/03/18 Nutritional Supplement [Radames - 1 packet PO BIDCM 05/03/18 ORANGE FLAVOR] Warfarin Sodium [Coumadin] 5 mg PO DAILY 05/03/18 - Social History SMOKING STATUS:: Former smoker Vital Signs Temp Pulse Resp BP Pulse Ox 97.6 F L 94 20 H 136/76 H 96 05/06/18 08:55 05/06/18 11:00 05/06/18 08:55 05/06/18 08:55 05/06/18 08:55 Oxygen Flow Rate (L/min) 1 Oxygen Delivery Method Nasal Cannula Weight: 65 kg Body Mass Index (BMI) 25.4 Microbiology Past 72 Hours 05/04/18 14:50 Gram Stain - Final Wound - Sacral Wound Culture - Preliminary GNR lactose grease remover Gram negative stevenson 05/04/18 15:00 C. difficile DNA Amplification - Final Stool 05/04/18 10:30 Stool Occult Blood (YANCY) - Final Stool Occult Blood Positive Laboratory Tests Past 24 Hrs 05/04/18 05/05/18 05/05/18 08:46 11:05 17:15 WBC RBC Hgb 9.6 L Hct 30.8 L MCV MCH MCHC RDW RDW Differential Plt Count MPV Sodium Potassium Chloride Carbon Dioxide Anion Gap BUN Creatinine Estim Creat Clear Calc Est GFR (MDRD) Af Amer Est GFR (MDRD) Non-Af BUN/Creatinine Ratio Glucose Calcium Vitamin B12 > 2000 H Vancomycin Trough 6.7 05/06/18 05/06/18 05:05 05:05 WBC 7.2 RBC 3.36 L Hgb 9.0 L Hct 29.0 L MCV 86.3 MCH 26.8 L MCHC 31.0 L RDW 17.4 H RDW Differential 53.4 H Plt Count 379 MPV 8.1 Sodium 141 Potassium 4.1 Chloride 112 H Carbon Dioxide 19.0 L Anion Gap 10 BUN 15 Creatinine 0.28 L Estim Creat Clear Calc 44.54 Est GFR (MDRD) Af Amer 309 Est GFR (MDRD) Non-Af 255 BUN/Creatinine Ratio 53.8 H Glucose 264 H Calcium 7.7 L Vitamin B12 Vancomycin Trough - Other Studies Radiology: [] reviewed Other Studies: [] Route of nutrition/ use of supplements: [] Nutritional Intake: [] IV Site: [] Allen Catheter: [] - Physical Exam General: Alert, Oriented x3, Cooperative, No apparent distress HEENT: Atraumatic, PERRLA, EOMI Neck: Supple, No Nodes Lungs: Clear to auscultation, Normal air movement Cardiovascular: Regular rate, Regular Rhythm Abdomen: Soft, Non Tender, Non-Distended Extremities: No edema Skin: - - Reviewed photos of sacrum, LLE, and R foot IV Site: Peripheral, without redness Musculoskeletal: No Tenderness to Palpation of Joints or Extremities Neurological: Cranial nerves II-XII grossly intact - Assessment/Plan Antibiotics: [] Assessment/Plan: [] Active and Suspected Problems (Last Reviewed 05/04/18 @ 02:22 by Lorne Holder MD) Sepsis associated hypotension (Acute) UTI (urinary tract infection) (Acute) Anemia (Acute) DVT (deep venous thrombosis) (Acute) CAD (coronary artery disease) (Acute) Infected sacral ulcer -check CT scan of abd/pelvis which will also check her ? abd abscess. Will need surg debridement, transferred planned. Wound cx with GNR. Stop vanc. Change zosyn to meropenem given h/o ESBL. complicated uti - Ucx with esbl ecoli and MDR klebs, possible CRE. Will treat with meropenem and give dose of fosfomycin. Will follow, thank you.
--- NOTE | 2018-05-06 14:50 | PCM.PROGNOTE ---
<Glaina Balderas - Last Filed: 05/06/18 15:14> Patient Problems: Active and Suspected Problems (Last Reviewed 05/04/18 @ 02:22 by Lorne Holder MD) Sepsis associated hypotension (Acute) UTI (urinary tract infection) (Acute) Anemia (Acute) DVT (deep venous thrombosis) (Acute) CAD (coronary artery disease) (Acute) Subjective: Patient seen and examined. Denies current complaints. Wishes to return to [facility] if she requires debridement or LTAC. - Physical Exam General: Oriented x3, Cooperative HEENT: Atraumatic, PERRLA, EOMI, Normocephalic Neck: Supple, No JVD, Negative Carotid Bruits Lungs: Clear to auscultation, Normal air movement Cardiovascular: Regular rate, Regular Rhythm, Normal S1, Normal S2, Murmur Abdomen: Bowel Sounds Present, Soft, Non Tender, Non-Distended Extremities: No clubbing, No cyanosis, No edema, Capillary Refill Less than 3 Seconds Skin: - - Sacral ulcer clean, dry, intact. Multiple wounds including left lower extremity, bilateral heels, bilateral arms. Musculoskeletal: No Tenderness to Palpation of Joints or Extremities Neurological: Cranial nerves II-XII grossly intact, Neuro grossly intact Psych/Mental Status: Flat Affect Vital Signs Temp Pulse Resp BP Pulse Ox 97.6 F L 94 20 H 136/76 H 96 05/06/18 08:55 05/06/18 11:00 05/06/18 08:55 05/06/18 08:55 05/06/18 08:55 Oxygen Flow Rate (L/min) 1 Oxygen Delivery Method Nasal Cannula Weight: 143 lb 4.807 oz Body Mass Index (BMI) 25.4 Intake and Output for Last 24 Hours 05/04/18 05/05/18 05/06/18 23:59 23:59 23:59 Intake Total 3297 / 3297 4143 / 4143 876.7 / 876.7 Output Total 650 / 650 2405 / 2405 670 / 670 Balance 2647 / 2647 1738 / 1738 206.7 / 206.7 Microbiology Past 72 Hours 05/04/18 14:50 Gram Stain - Final Wound - Sacral Wound Culture - Preliminary GNR lactose business banking officer Gram negative stevenson 05/04/18 15:00 C. difficile DNA Amplification - Final Stool 05/04/18 10:30 Stool Occult Blood (YANCY) - Final Stool Occult Blood Positive Laboratory Tests Past 24 Hrs 05/04/18 05/05/18 05/06/18 08:46 17:15 05:05 WBC 7.2 RBC 3.36 L Hgb 9.6 L 9.0 L Hct 30.8 L 29.0 L MCV 86.3 MCH 26.8 L MCHC 31.0 L RDW 17.4 H RDW Differential 53.4 H Plt Count 379 MPV 8.1 Sodium Potassium Chloride Carbon Dioxide Anion Gap BUN Creatinine Estim Creat Clear Calc Est GFR (MDRD) Af Amer Est GFR (MDRD) Non-Af BUN/Creatinine Ratio Glucose Calcium Vitamin B12 > 2000 H 05/06/18 05:05 WBC RBC Hgb Hct MCV MCH MCHC RDW RDW Differential Plt Count MPV Sodium 141 Potassium 4.1 Chloride 112 H Carbon Dioxide 19.0 L Anion Gap 10 BUN 15 Creatinine 0.28 L Estim Creat Clear Calc 44.54 Est GFR (MDRD) Af Amer 309 Est GFR (MDRD) Non-Af 255 BUN/Creatinine Ratio 53.8 H Glucose 264 H Calcium 7.7 L Vitamin B12 POC Glucose 05/06/18 05/06/18 05/05/18 11:24 06:53 22:11 POC Glucose 303 H 271 H 301 H 05/05/18 16:30 POC Glucose 231 H Medical Necessity - Tobacco Use Smoking Status: Former smoker Assessment/Plan All Active Problems (Last Reviewed 05/04/18 @ 02:22 by Lorne Holder MD) Sepsis associated hypotension (Acute) UTI (urinary tract infection) (Acute) Anemia (Acute) DVT (deep venous thrombosis) (Acute) CAD (coronary artery disease) (Acute) Open wound of left thigh (Acute) Open wound of left lower extremity (Acute) Traumatic hematoma of left thigh (Acute) Traumatic hematoma of left lower leg (Acute) Skin necrosis (Acute) Osteomyelitis of left foot (Acute) Acute anemia (Acute) Decubitus ulcer (Acute) Hematoma (Acute) Pain in right toe(s) (Acute) Cellulitis of right foot (Acute) Abscess of toe of right foot (Acute) Infectious arthritis (Acute) Hypoxia (Acute) Suspected sleep apnea (Acute) Acute kidney injury (Acute) 1. Acute sepsis secondary to E. coli, Klebsiella, positive ESBL UTI vs chronic decubital coccyx ulcer-Allen changed out in ER. Patient has chronic Allen due to chronic coccyx decubital ulcer which is extensive. ID following. Fosfomycin ?1. IV meropenem. 2. 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 Continue daily and as needed dressing changes. Wound RN consult. Frequent position changing. Nursing notes drainage from coccyx ulcer which was previously debrided by Dr. Ivory 03/05/2018. Dr. Ivory not available for consult. Dr. Antunez at [facility] performed original debridement and patient wishes to return to [facility] to see him for further debridement. Infectious disease consulted. Antibiotics changed to IV meropenem. Wound culture showing GNR. Begin transfer to [facility] for further wound debridement. Anticipate further need for LTAC following debridement. 3. Acute on chronic iron deficiency anemia, anemia of chronic disease-transfused with 2 units packed red blood cells. Stool positive for occult blood. Trend CBC. If hemoglobin continues to drop, consider surgery consult. Continue Coumadin for now. Patient's hemoglobin has ranged from 6-8 since February 2018. Prior to this, her hemoglobin was 10-13. Continue iron supplementation. 4. Recent left upper extremity DVT-continue Coumadin. Unclear when DVT was initially diagnosed, appears to be in February 2018. 5. CAD status post three-vessel CABG-Continue Plavix, carvedilol, Coumadin. 6. Hypertension-continue home regimen including lisinopril, carvedilol, Lasix. 7. Hyperlipidemia-continue statin. 8. Type 2 diabetes mellitus-hold home oral regimen. Accu-Cheks before meals at bedtime with sliding scale insulin. 9. Diabetic neuropathy-continue home gabapentin regimen. 10. Chronic COPD/asthma-DuoNeb aerosols as needed. Continue home Singulair regimen. 11. Tobacco dependence-encourage smoking cessation. 12. Obstructive sleep apnea-continue CPAP nightly. 13. GERD-continue PPI. DVT prophylaxis-Coumadin. This patient was seen by Galina Balderas NP-Mihaela under the supervision of Dr. Soto. <Ravi Soto - Last Filed: 05/06/18 15:40> - Physical Exam General: Oriented x3, Cooperative HEENT: Atraumatic, PERRLA, Normocephalic Lungs: Clear to auscultation, Normal air movement, No rhonchi, No wheeze Cardiovascular: Regular rate, Regular Rhythm, Normal S1, Normal S2 Abdomen: Bowel Sounds Present, Non Tender, Non-Distended Extremities: No edema, No Calf Tenderness Skin: - Musculoskeletal: No Tenderness to Palpation of Joints or Extremities, No Muscle Wasting Neurological: Cranial nerves II-XII grossly intact, Neuro grossly intact Vital Signs Temp Pulse Resp BP Pulse Ox 36.4 C L 94 20 H 136/76 H 96 05/06/18 08:55 05/06/18 11:00 05/06/18 08:55 05/06/18 08:55 05/06/18 08:55 Oxygen Flow Rate (L/min) 1 Oxygen Delivery Method Nasal Cannula Weight: 65 kg Body Mass Index (BMI) 25.4 Intake and Output for Last 24 Hours 05/04/18 05/05/18 05/06/18 23:59 23:59 23:59 Intake Total 3297 / 3297 4143 / 4143 876.7 / 876.7 Output Total 650 / 650 2405 / 2405 670 / 670 Balance 2647 / 2647 1738 / 1738 206.7 / 206.7 Microbiology Past 72 Hours 05/04/18 14:50 Gram Stain - Final Wound - Sacral Wound Culture - Preliminary GNR lactose business banking officer Gram negative stevenson 05/04/18 15:00 C. difficile DNA Amplification - Final Stool 05/04/18 10:30 Stool Occult Blood (YANCY) - Final Stool Occult Blood Positive Laboratory Tests Past 24 Hrs 05/04/18 05/05/18 05/06/18 08:46 17:15 05:05 WBC 7.2 RBC 3.36 L Hgb 9.6 L 9.0 L Hct 30.8 L 29.0 L MCV 86.3 MCH 26.8 L MCHC 31.0 L RDW 17.4 H RDW Differential 53.4 H Plt Count 379 MPV 8.1 Sodium Potassium Chloride Carbon Dioxide Anion Gap BUN Creatinine Estim Creat Clear Calc Est GFR (MDRD) Af Amer Est GFR (MDRD) Non-Af BUN/Creatinine Ratio Glucose Calcium Vitamin B12 > 2000 H 05/06/18 05:05 WBC RBC Hgb Hct MCV MCH MCHC RDW RDW Differential Plt Count MPV Sodium 141 Potassium 4.1 Chloride 112 H Carbon Dioxide 19.0 L Anion Gap 10 BUN 15 Creatinine 0.28 L Estim Creat Clear Calc 44.54 Est GFR (MDRD) Af Amer 309 Est GFR (MDRD) Non-Af 255 BUN/Creatinine Ratio 53.8 H Glucose 264 H Calcium 7.7 L Vitamin B12 POC Glucose 05/06/18 05/06/18 05/05/18 11:24 06:53 22:11 POC Glucose 303 H 271 H 301 H 05/05/18 16:30 POC Glucose 231 H Assessment/Plan Patient seen and examined independently. Data reviewed. I agree with the above note by the nurse practitioner. 1. Sepsis: 2/2 infected decubitus ulcer 2. Infected stage III-IV decubitus ulcer +GNR x2, ID and sensitivities pending. on Meropenam patient needs further debridement. Patient declining to see Dr. Ivory again, preferring Dr. Antunez at [facility]. Called [facility] and patient was accepted by Dr. Calderon, hospitalist, once PRS coverage ensured. 3. Anemia: likely d/t chronic dz (decubitus ulcer and healing leg wounds) transfused 2 units iron low. B12 and Folate ok. ferritin 63 (on 02/05/18) started on FeSO4 on the . no acute transfusion needs at this time 4.Debility patient has essentially been bed-bound since her CABG in January pt asked if her healing will occur faster at [facility] rather than here. I told her it will be months before her decubitus ulcer heals and that she will have a long period of getting stronger. I told her that she will need to be an active participant in her therapy recovery once released by surgery to do so. Greater than 40 minutes of which greater than 50% of the time was coordinating her care for transfer to [facility]. Code Visit Inpatient E&M: 29583 Subs Hosp L3
--- NOTE | 2018-05-06 15:25 | PCM.DC.SUM ---
<Galina Balderas - Last Filed: 05/06/18 15:38> Discharge Date and Diagnosis Date of Admission: 05/03/18 Date of Discharge: 05/06/18 - Primary Discharge Diagnosis Active and Suspected Problems (Last Reviewed 05/04/18 @ 02:22 by Lorne Holder MD) 1. Acute sepsis secondary to E. coli, Klebsiella, positive ESBL UTI 2. Chronic stage III-IV coccyx decubitus ulcer, Gram neg +, present on admission 3. 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 Acute deep vein thrombosis (DVT) of left upper extremity (Chronic) Recent LUE DVT while at [facility] s/p CABG. On therapeutic lovenox/coumadin bridge awaiting INR to be therapeutic. Foot osteomyelitis, right (Chronic) Recent R Foot Osteomyelitis, maintained on meropenem and voriconazole for planned addition 6 weeks of treatment per Dr. Palmer direction. Type 2 diabetes mellitus (Chronic) Obesity (BMI 30.0-34.9) (Chronic) HERNANDEZ (dyspnea on exertion) (Chronic) ELDER (obstructive sleep apnea) (Chronic) COPD (chronic obstructive pulmonary disease) (Chronic) Neuropathic pain (Chronic) Allergic rhinitis (Chronic) Asthma (Chronic) Mild asthma (Chronic) Osteoarthritis (Chronic) Hyperlipidemia (Chronic) Hypertension (Chronic) Type 2 diabetes mellitus (Chronic) Hospital Course and Treatment Imaging Results: Diagnostic Data Chest X-Ray 05/03/18 20:34 IMPRESSION: Bibasilar airspace disease could represent infiltrate Electronically Signed: Sekou Aguirre DO at 21:17 EDT Tel , Service support , Consultations 05/04/18 13:28 Consult: Onc/Wound/optical instrument inspector Routine Comment: Reason for Consult:: mult wounds, large coccyx wound Dr. Palmer- ID Operations: None Procedures: None Summary of Care Provided: The patient is a 67 year old F admitted 05/03/2018 due to sepsis secondary to UTI. 1. Acute sepsis secondary to E. coli, Klebsiella, positive ESBL UTI vs chronic decubital coccyx ulcer-Allen changed out in ER. Patient has chronic Allen due to chronic coccyx decubital ulcer which is extensive. ID following. Fosfomycin ?1. IV meropenem. 2. 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 Continue daily and as needed dressing changes. Wound RN consult. Frequent position changing. Nursing notes drainage from coccyx ulcer which was previously debrided by Dr. Ivory 03/05/2018. Dr. Ivory not available for consult. Dr. Antunez at [facility] performed original debridement and patient wishes to return to [facility] to see him for further debridement. Infectious disease consulted. Antibiotics changed to IV meropenem. Wound culture showing GNR. Begin transfer to [facility] for further wound debridement. Anticipate further need for LTAC following debridement. 3. Acute on chronic iron deficiency anemia, anemia of chronic disease-transfused with 2 units packed red blood cells. Stool positive for occult blood. Trend CBC. If hemoglobin continues to drop, consider surgery consult. Continue Coumadin for now. Patient's hemoglobin has ranged from 6-8 since February 2018. Prior to this, her hemoglobin was 10-13. Continue iron supplementation. 4. Recent left upper extremity DVT-continue Coumadin. Unclear when DVT was initially diagnosed, appears to be in February 2018. 5. CAD status post three-vessel CABG-Continue Plavix, carvedilol, Coumadin. 6. Hypertension-continue home regimen including lisinopril, carvedilol, Lasix. 7. Hyperlipidemia-continue statin. 8. Type 2 diabetes mellitus-hold home oral regimen. Accu-Cheks before meals at bedtime with sliding scale insulin. 9. Diabetic neuropathy-continue home gabapentin regimen. 10. Chronic COPD/asthma-DuoNeb aerosols as needed. Continue home Singulair regimen. 11. Tobacco dependence-encourage smoking cessation. 12. Obstructive sleep apnea-continue CPAP nightly. 13. GERD-continue PPI. General: Oriented x3, Cooperative HEENT: Atraumatic, PERRLA, EOMI, Normocephalic Neck: Supple, No JVD, Negative Carotid Bruits Lungs: Clear to auscultation, Normal air movement Cardiovascular: Regular rate, Regular Rhythm, Normal S1, Normal S2, Murmur Abdomen: Bowel Sounds Present, Soft, Non Tender, Non-Distended Extremities: No clubbing, No cyanosis, No edema, Capillary Refill Less than 3 Seconds Skin: - - Sacral ulcer clean, dry, intact. Multiple wounds including left lower extremity, bilateral heels, bilateral arms. Musculoskeletal: No Tenderness to Palpation of Joints or Extremities Neurological: Cranial nerves II-XII grossly intact, Neuro grossly intact Psych/Mental Status: Flat Affect Patient seen exam prior to discharge. Physical assessment as above. Patient stable for transfer to [facility] for further evaluation and treatment. This patient was seen by LUCIE Jim under the supervision of Dr. Soto. Home Medications: Medications to take at Discharge Lisinopril [Prinivil] 5 mg PO DAILY 01/18/17 gabapentin 300 mg capsule 600 mg PO TID cap 08/23/17 Loratadine 10 mg PO DAILY 09/18/17 Ascorbic Acid [Vitamin C] 500 mg PO BIDCM 03/04/18 Carvedilol [Coreg] 6.25 mg PO BID 03/04/18 Clopidogrel Bisulfate [Plavix] 75 mg PO DAILY 03/04/18 Folic Acid 1 mg PO DAILY@0800 03/04/18 Furosemide [Lasix] 40 mg PO DAILY 03/04/18 Insulin Detemir [Levemir FlexPen] 10 units SC QHS 03/04/18 Insulin Lispro [Humalog KwikPen] 9 unit SQ DAILY@1200 03/04/18 Insulin Lispro [Humalog KwikPen] 9 unit SQ DAILY@1700 03/04/18 Insulin Lispro [Humalog KwikPen] 11 unit SQ BREAKFAST 03/04/18 Ipratropium/Albuterol Sulfate [Duoneb] 3 ml INHALATION Q2H PRN 03/04/18 Iron Polysaccharide Complex [Ferrex 150] 150 mg PO BID 03/04/18 Melatonin 3 mg PO QHS 03/04/18 Nystatin Powder [Mycostatin Powder] 1 applic TOPICAL BID 03/04/18 Oxycodone [Oxyir] 5 mg PO Q4H PRN PRN 03/04/18 Benzocaine/Menthol [Cepacol Sore Throat Lozenge] 1 lozenge MM PRN PRN 05/03/18 Bisacodyl 10 mg RC PRN PRN 05/03/18 Ciprofloxacin [Cipro] 500 mg PO Q12H 05/03/18 Cyanocobalamin (Vitamin B-12) [B-12] 1,000 mcg PO DAILY 05/03/18 Dicyclomine HCl 10 mg PO Q6H PRN 05/03/18 Fluticasone/Vilanterol [Breo Ellipta 200-25 Mcg INH] 1 puff PO DAILY 05/03/18 Glipizide [Glucotrol] 20 mg PO DAILY 05/03/18 Insulin Lispro [Humalog KwikPen] See Protocol SC ACHS 05/03/18 Megestrol Acetate 10 ml PO BID 05/03/18 Metronidazole 500 mg PO TID 05/03/18 Mirtazapine 7.5 mg PO QHS 05/03/18 Nutritional Supplement [Radames - ORANGE FLAVOR] 1 packet PO BIDCM 05/03/18 Warfarin Sodium [Coumadin] 5 mg PO DAILY 05/03/18 Primary Care Physician: Baron Pike Chi, MD [Primary Care Provider] - Within 2 Weeks Disposition: Acute care Hospital Minutes spent on discharge:: 35 Patient Condition:: Stable Medical Necessity - Tobacco Use Smoking Status: Former smoker Meaningful Use Info Meaningful Use Diagnoses (Choose all that apply): None applicable <Ravi Soto - Last Filed: 05/06/18 15:43> Discharge Date and Diagnosis - Primary Discharge Diagnosis Active and Suspected Problems (Last Reviewed 05/04/18 @ 02:22 by Lorne Holder MD) Sepsis associated hypotension (Acute) UTI (urinary tract infection) (Acute) Anemia (Acute) DVT (deep venous thrombosis) (Acute) CAD (coronary artery disease) (Acute) - Secondary Discharge Diagnosis Chronic Problems (Last Reviewed 05/04/18 @ 02:22 by Lorne Holder MD) Atherosclerotic heart disease of [place] coronary artery without angina pectoris (Chronic) CABG x5 - LE to LAD, SVG to diag, SVG to OM1, SVG to OM2, SVG to PDA @[facility] on 02/15/18 Nonrheumatic mitral valve regurgitation (Chronic) Stage IV pressure ulcer of sacral region (Chronic) Unstageable pressure ulcer of sacral region (Chronic) Obesity (Chronic) Neuropathic pain (Chronic) S/P CABG (coronary artery bypass graft) (Chronic ~02/15/18) Recent CABG x5 - LE to LAD, SVG to diag, SVG to OM1, SVG to OM2, SVG to PDA @[facility] on 02/15/18, team contact CH[employer] PROGRAM MANAGER Abdirahman Rhodes. Acute deep vein thrombosis (DVT) of left upper extremity (Chronic) Recent LUE DVT while at [facility] s/p CABG. On therapeutic lovenox/coumadin bridge awaiting INR to be therapeutic. Foot osteomyelitis, right (Chronic) Recent R Foot Osteomyelitis, maintained on meropenem and voriconazole for planned addition 6 weeks of treatment per Dr. Palmer direction. Type 2 diabetes mellitus (Chronic) Obesity (BMI 30.0-34.9) (Chronic) HERNANDEZ (dyspnea on exertion) (Chronic) ELDER (obstructive sleep apnea) (Chronic) COPD (chronic obstructive pulmonary disease) (Chronic) Neuropathic pain (Chronic) Allergic rhinitis (Chronic) Asthma (Chronic) Mild asthma (Chronic) Osteoarthritis (Chronic) Hyperlipidemia (Chronic) Hypertension (Chronic) Type 2 diabetes mellitus (Chronic) Hospital Course and Treatment Imaging Results: 05/06/18 10:12 CT Abd [Abdomen/Pelvis WITH Contrast] [CT] Routine Consultations 05/04/18 13:28 Consult: Onc/Wound/optical instrument inspector Routine Comment: Reason for Consult:: mult wounds, large coccyx wound Operations: None Procedures: None Summary of Care Provided: Patient seen and examined independently. Data reviewed. I agree with the above note by the nurse practitioner. The patient is a 67 year old F presents with sepsis. 1. Sepsis: 2/2 infected decubitus ulcer 2. Infected stage III-IV decubitus ulcer +GNR x2, ID and sensitivities pending. on Meropenam patient needs further debridement. Patient declining to see Dr. Ivory again, preferring Dr. Antunez at [facility]. Called [facility] and patient was accepted by Dr. Calderon, hospitalist, once PRS coverage ensured. 3. Anemia: likely d/t chronic dz (decubitus ulcer and healing leg wounds) transfused 2 units iron low. B12 and Folate ok. ferritin 63 (on 02/05/18) started on FeSO4 on the . no acute transfusion needs at this time 4.Debility patient has essentially been bed-bound since her CABG in January pt asked if her healing will occur faster at [facility] rather than here. I told her it will be months before her decubitus ulcer heals and that she will have a long period of getting stronger. I told her that she will need to be an active participant in her therapy recovery once released by surgery to do so.[] Discharge Diet: No Restrictions Discharge Activity: - - activity as tolerated Weight Bearing Status: Weight bearing as tolerated Call your doctor if your incision/area has: Continuous Slow Oozing, Sudden Increased Bleeding, Increased Pain/ Swelling, Increased Redness, Foul Smelling Discharge Call your doctor if you observe: Fever of 101 or Higher Disposition: Acute care Hospital Minutes spent on discharge:: 45 Patient Condition:: Stable Meaningful Use Info Meaningful Use Diagnoses (Choose all that apply): None applicable Code Visit Inpatient E&M: 07902 Disch Hosp
--- NOTE | 2018-05-06 16:22 | NURSING ---
called and gave report to Kina @ [facility].
[2018-05-06 17:05] LABS: Bedside Glucose 294 mg/dL (70-110)
== END 2018-05-06 17:53 | disposition short-term general hospital (02) | DRG 698 ==
LOC: ED 23:44 → PCU 23:52
PROVIDERS: Internal Medicine; Nurse Practitioner Family; Admitting Provider Internal Medicine; Emergency Provider Emergency Medicine; Family Provider Family Medicine Geriatric Medicine; PCP Family Medicine Geriatric Medicine
DX: T83.511A Infection and inflammatory reaction due to indwelling urethral catheter, initial encounter (principal); A41.9 Sepsis, unspecified organism; L89.154 Pressure ulcer of sacral region, stage 4; M86.8X7 Other osteomyelitis, ankle and foot; N39.0 Urinary tract infection, site not specified; I25.10 Atherosclerotic heart disease of native coronary artery without angina pectoris; Z95.1 Presence of aortocoronary bypass graft; Z79.4 Long term (current) use of insulin; Z87.891 Personal history of nicotine dependence; Z86.718 Personal history of other venous thrombosis and embolism; D50.9 Iron deficiency anemia, unspecified; I10 Essential (primary) hypertension; E78.5 Hyperlipidemia, unspecified; E11.40 Type 2 diabetes mellitus with diabetic neuropathy, unspecified; G47.33 Obstructive sleep apnea (adult) (pediatric); I25.2 Old myocardial infarction; R19.5 Other fecal abnormalities; B96.20 Unspecified Escherichia coli [E. coli] as the cause of diseases classified elsewhere; B96.1 Klebsiella pneumoniae [K. pneumoniae] as the cause of diseases classified elsewhere; E11.69 Type 2 diabetes mellitus with other specified complication; J44.9 Chronic obstructive pulmonary disease, unspecified; M19.90 Unspecified osteoarthritis, unspecified site; Z79.01 Long term (current) use of anticoagulants; Z79.899 Other long term (current) drug therapy; K21.9 Gastro-esophageal reflux disease without esophagitis
CPT/HCPCS: 36415; 51702; 71045; 74177; 80048; 80053; 80202; 81001; 82274; 82607; 82746; 82962; 83540; 83550; 83605; 84484; 85014; 85018; 85025; 85027; 85045; 85610; 85730; 86850; 86900; 86920; 86922; 87040; 87070; 87077; 87086; 87088; 87186; 87205; 87493; 93005; 94640; 94762; 97110; 97163; 97166; 97802; 99285; J1756; J2185; J7030; J7040; J7050; P9016; Q9967; A4216

== ENCOUNTER 2018-10-04 06:39 | Inpatient (IN) | payer MEDICARE, OTHER, SELFPAY ==
[2018-10-04] VITALS (35 sets, daily range): BP systolic 98–140; BP diastolic 50–72; PULSE 67–87; RESP 12–33; TEMP 35.9–38.5; O2SAT 80–100; BMI 35.9; BMI 32.4
--- NOTE | 2018-10-04 06:53 | EKG12_ITS ---
Test Reason : SOB Blood Pressure : / mmHG Vent. Rate : 083 BPM Atrial Rate : 083 BPM P-R Int : 164 ms QRS Dur : 090 ms QT Int : 374 ms P-R-T Axes : 042 062 052 degrees QTc Int : 439 ms Normal sinus rhythm RSR' or QR pattern in V1 suggests right ventricular conduction delay Borderline ECG Confirmed by BRITTON HOYOS, ARASELI ([id number]), acquisition editor BRANDEE GRACIA ([id number]) on 10/07/2018 9:41:15 AM Referred By: MARTHA Confirmed By:ARASELI JARQUIN MD
[2018-10-04 07:10] LABS: Bedside Glucose 165 mg/dL (70-110)
--- NOTE | 2018-10-04 07:10 | RAD_ITS ---
STUDY: X-RAY CHEST REASON FOR EXAM: Female, 68 years old. Sepsis TECHNIQUE: 1 view COMPARISON: May 03, 2018 FINDINGS: Platelike atelectatic changes in the right lung base and a small right-sided effusion. Mild cardiomegaly. Evidence of previous CABG with median sternotomy wires. A PICC line through the right subclavian vein has its tip in the superior vena cava. Normal visualized thoracic spine. Normal visualized ribs, clavicles, and shoulders. There is no demonstrated abnormality of the visualized soft tissue structures of the upper abdomen. RAD/Chest 1 View (Portable) IMPRESSION: Platelike atelectatic changes in the right lung base and a small right-sided pleural effusion. Electronically Signed: Johan Garcia MD at 7:42 EST Tel , Service support ,
[2018-10-04 07:24] LABS: Absolute Lymphocyte Count 0.81 X10^3/ul (0.83-4.51); Absolute Neutrophil Count 4.4 X10^3/uL (2.0-7.7); Basophil# 0.01 X10^3/uL; Basophil% 0.2 % (0-1); Eosinophil# 0.07 X10^3/uL; Eosinophils% 1.2 % (0-5); Hematocrit 29.9 % (37-47); Hemoglobin 9.2 g/dl (12.0-15.0); Lymphocyte # 0.81 X10^3/ul (4.0); Lymphocyte % 13.6 % (19-41); Mean Corp Hgb Conc 30.8 g/gl (32-36); Mean Corpuscular Hgb 31.4 pg (27.0-32.0); Mean Platelet Vol. 8.6 fl (6.2-12.0); Monocyte# 0.63 X10^3/uL; Monocyte% 10.6 % (0-10); Neutrophil # 4.41 X10^3/uL (2.7-7.7); Neutrophil % 74.1 % (47-70); Platelet Count 210 K/mm3 (150-450); RBC Distribution Width CV 15.6 % (11.6-14.6); RBC Distribution Width SD 58.1 fl (35.1-43.9); Red Blood Count 2.93 M/mm3 (4.2-5.4)
[2018-10-04 07:25] LABS: POSITIVE COUNT NO; POSITIVE DIFFERENTIAL NO; POSITIVE MORPHOLOGY NO
[2018-10-04 07:26] LABS: International Normalized Ratio 1.9; Prothrombin Time (Protime)PT. 21.5 SECONDS (11.7-14.9)
[2018-10-04 07:27] LABS: Partial Thromboplast Time 48.8 Seconds (24.1-36.2)
[2018-10-04 07:37] LABS: ALB/GLOB Ratio 0.5 RATIO (0.9-2.4); AST(SGOT) 8 U/L (15-37); Alanine Aminotransfer ALT/SGPT 13 U/L (13-56); Alkaline Phosphatase 245 U/L (45-117); Anion Gap 7 (5-15); BUN 46 mg/dL (7-18); Calcium,Total 9.1 mg/dL (8.5-10.1); Chloride 108 mmol/L (98-107); Creatinine, Serum 0.51 mg/dL (0.55-1.02); EST Glomerular Filtration Rate 127 mL/min (>60); Est Glom Filt Rate - Afr Amer 153 mL/min (>60); Estimated Creatinine Clearance 43.92 ml/min; Globulin 3.9 g/dL (2.2-4.2); Glucose 159 mg/dL (74-106); Potassium 4.6 mmol/L (3.5-5.1); Protein, Total 5.9 g/dL (6.4-8.2); Sodium Level 144 mmol/L (136-145)
[2018-10-04 07:40] LABS: Lactic Acid 0.3 mmol/L (0.4-2.0)
[2018-10-04] MEDS: Piperacil/Tazobactam 3.375 GM/50 ML ML IV ×3 (07:44→21:08)
[2018-10-04] MEDS: 0.9% Normal Saline 1,000 ML IV.SOLN. 1000 ML IV (07:44)
[2018-10-04 07:50] LABS: Base Excess 3 mmol/L (-2 to +2); Bicarbonate 30.1 mmol/L (22-26); Blood Gas Specimen Type ART; O2 Delivery Device Nasal Can; PO2 85 mmHG (75-100); SITE R Radial; SO2 94 % (95-99); Time Given 739; Total Carbon Dioxide 32 mmol/L; pCO2 68.4 mmHg (35-45); pH 7.25 (7.35-7.45)
--- NOTE | 2018-10-04 08:11 | ED.VISSUMM ---
- ER Visit Summary Date of Service: 10/04/18 Chief Complaint: Altered mental status History of Present Illness: The patient is a 68 F who presents from [facility]. She has a history of diabetes, hypertension, hyperlipidemia, coronary disease, COPD, obstructive sleep apnea, bilateral leg and sacral ulcers as well as cellulitis and right foot osteomyelitis. She was previously admitted at [facility]. I am awaiting records from that facility. It sounds like she has had multiple infections with multidrug-resistant organisms. She has a PICC line in place, but is not currently on IV antibiotics. Patient had an altered mental status which came on gradually over the night last night. Family says this is a departure from her new baseline since admission at [facility]. History is limited due to patient lethargy. It sounds like she had a fever and some trouble breathing. Family says she is DNR Comfort Care arrest, DO NOT INTUBATE. Physical Examination: Blood pressure 127/66 and heart rate 85. Respiratory rate 33. 95% on 6 L nasal cannula. Temperature is 101.3. Patient is lethargic. She is awake but only oriented to person. She moves all extremities. Mucous membranes are dry. HEENT exam otherwise unremarkable. Lungs are diminished in all baeza. Abdomen soft and nontender. Patient has a colostomy that appears unremarkable. Multiple skin ulcers and wounds including her bilateral arms, bilateral lower legs, worse on the left side as well as her sacral region. Allen catheter is in place and there is cloudy yellow urine in the catheter. Test Results: EKG showed sinus rhythm at a rate of 83. Hemoglobin 9.2, glucose 159, BUN 46, creatinine 0.51. Alkaline phosphatase 245, INR 1.9, PTT 48.8. Urinalysis pending. Troponin normal. Lactate normal. Cultures pending. ABG showed a pH of 7.25, CO2 was 68 and O2 is 94. Chest x-ray showed right-sided atelectasis and a small pleural effusion but was otherwise unremarkable. Emergency Department Course and Treatment: Patient triggered a sepsis alert based on her temperature and respiratory rate. She was placed on a monitor. She was placed on 6 L by nasal cannula and her oxygen saturation improved to 95%. Allen catheter was exchanged. Records from [facility] were requested. I initiated the sepsis orders and fluid bolus. She was started on Zosyn and vancomycin. Patient's ABG showed a respiratory acidosis and she was treated with BiPAP. She tolerated this well. Fever resolved. Patient did not have a leukocytosis and her lactate was normal. Troponin normal. Workup was all fairly unremarkable. Urinalysis and cultures are pending. Again, patient is DNR Comfort Care arrest, DO NOT INTUBATE. Patient was discussed with the hospitalist and will be admitted to the PCU for further care. Treatment Plan: As above Disposition: Admission Impression: 1. Respiratory failure 2. Sepsis 3. UTI 4. Sacral and lower extremity ulcers 5. Anemia 6. Right upper extremity DVT history 7. Diabetes This note was generated with [employer] dictation software. It may contain incorrect words, spelling, and punctuation that were not noted in review of the chart prior to signing ED Disposition - Plan for ED Patient: Chief Complaint: Shortness of Breath Referrals: Tong Willis MD [Primary Care Provider] -
--- NOTE | 2018-10-04 08:16 | NURSING ---
DR PARVIN JACINTO
[2018-10-04 08:22] LABS: Mucous, Urine 0 SEEN /hpf (<or=2+)
--- NOTE | 2018-10-04 08:24 | ED.DCSUM_ITS ---
- ER Visit Summary Date of Service: 10/04/18 Chief Complaint: Altered mental status History of Present Illness: The patient is a 68 F who presents from [facility]. She has a history of diabetes, hypertension, hyperlipidemia, coronary disease, COPD, obstructive sleep apnea, bilateral leg and sacral ulcers as well as cellulitis and right foot osteomyelitis. She was previously admitted at [facility]. I am awaiting records from that facility. It sounds like she has had multiple infections with multidrug-resistant organisms. She has a PICC line in place, but is not currently on IV antibiotics. Patient had an altered mental status which came on gradually over the night last night. Family says this is a departure from her new baseline since admission at [facility]. History is limited due to patient lethargy. It sounds like she had a fever and some trouble breathing. Family says she is DNR Comfort Care arrest, DO NOT INTUBATE. Physical Examination: Blood pressure 127/66 and heart rate 85. Respiratory rate 33. 95% on 6 L nasal cannula. Temperature is 101.3. Patient is lethargic. She is awake but only oriented to person. She moves all extremities. Mucous membranes are dry. HEENT exam otherwise unremarkable. Lungs are diminished in all baeza. Abdomen soft and nontender. Patient has a colostomy that appears unremarkable. Multiple skin ulcers and wounds including her bilateral arms, bilateral lower legs, worse on the left side as well as her sacral region. Allen catheter is in place and there is cloudy yellow urine in the catheter. Test Results: EKG showed sinus rhythm at a rate of 83. Hemoglobin 9.2, glucose 159, BUN 46, creatinine 0.51. Alkaline phosphatase 245, INR 1.9, PTT 48.8. Urinalysis pending. Troponin normal. Lactate normal. Cultures pending. ABG showed a pH of 7.25, CO2 was 68 and O2 is 94. Chest x-ray showed right-sided atelectasis and a small pleural effusion but was otherwise unremarkable. Emergency Department Course and Treatment: Patient triggered a sepsis alert based on her temperature and respiratory rate. She was placed on a monitor. She was placed on 6 L by nasal cannula and her oxygen saturation improved to 95%. Allen catheter was exchanged. Records from [facility] were requested. I initiated the sepsis orders and fluid bolus. She was started on Zosyn and vancomycin. Patient's ABG showed a respiratory acidosis and she was treated with BiPAP. She tolerated this well. Fever resolved. Patient did not have a leukocytosis and her lactate was normal. Troponin normal. Workup was all fairly unremarkable. Urinalysis and cultures are pending. Again, patient is DNR Comfort Care arrest, DO NOT INTUBATE. Patient was discussed with the hospitalist and will be admitted to the PCU for further care. Treatment Plan: As above Disposition: Admission Impression: 1. Respiratory failure 2. Sepsis 3. UTI 4. Sacral and lower extremity ulcers 5. Anemia 6. Right upper extremity DVT history 7. Diabetes This note was generated with [employer] dictation software. It may contain incorrect words, spelling, and punctuation that were not noted in review of the chart prio r to signing ED Disposition - Plan for ED Patient: Chief Complaint: Shortness of Breath Referrals: Tong Willis MD [Primary Care Provider] -
--- NOTE | 2018-10-04 08:26 | HP.PCM_ITS ---
Problem List (1) Sepsis associated hypotension Status: Acute (2) UTI (urinary tract infection) Status: Acute (3) Anemia Status: Chronic (4) DVT (deep venous thrombosis) Status: Chronic (5) CAD (coronary artery disease) Status: Chronic (6) Atherosclerotic heart disease of [place] coronary artery without angina pectoris Status: Chronic Comment: CABG x5 - LE to LAD, SVG to diag, SVG to OM1, SVG to OM2, SVG to PDA @[facility] on 02/15/18 (7) Nonrheumatic mitral valve regurgitation Status: Chronic (8) Stage IV pressure ulcer of sacral region Status: Chronic (9) Open wound of left thigh Status: Acute Comment: open surgical hematoma wound left medial thigh (10) Open wound of left lower extremity Status: Acute Comment: open surgical hematoma wound left anteromedial leg (11) Traumatic hematoma of left thigh Status: Chronic (12) Traumatic hematoma of left lower leg Status: Chronic (13) Skin necrosis Status: Acute (14) Unstageable pressure ulcer of sacral region Status: Chronic (15) Osteomyelitis of left foot Status: Chronic Qualifiers: Osteomyelitis type: unspecified type Qualified Code(s): M86.9 - Osteomyelitis, unspecified (16) Obesity Status: Chronic Qualifiers: Obesity type: unspecified obesity type (17) Neuropathic pain Status: Chronic (18) S/P CABG (coronary artery bypass graft) Status: Chronic Comment: Recent CABG x5 - LE to LAD, SVG to diag, SVG to OM1, SVG to OM2, SVG to PDA @[facility] on 02/15/18, team contact SOUMYA Rhodes. (19) Acute deep vein thrombosis (DVT) of left upper extremity Status: Chronic Comment: Recent LUE DVT while at [facility] s/p CABG. On therapeutic lovenox/coumadin bridge awaiting INR to be therapeutic. (20) Acute anemia Status: Chronic Comment: Post-operatively Hgb decrease, s/p 2 u PRBC. (21) Decubitus ulcer Status: Chronic Comment: ESBL Coccyx Decubitous Ulcer Stage IV s/p I+D with VAC placement. Continued on Meropenem regimen per ID recommendation x 6 weeks additional to concurrently treat R Foot Osteomyelitis. (22) Foot osteomyelitis, right Status: Chronic Comment: Recent R Foot Osteomyelitis, maintained on meropenem and voriconazole for planned addition 6 weeks of treatment per Dr. Palmer direction. (23) Pain in right toe(s) Status: Chronic (24) Abscess of toe of right foot Status: Acute (25) Type 2 diabetes mellitus Status: Chronic (26) Obesity (BMI 30.0-34.9) Status: Chronic (27) Infectious arthritis Status: Acute (28) Hypoxia Status: Acute (29) HERNANDEZ (dyspnea on exertion) Status: Chronic (30) ELDER (obstructive sleep apnea) Status: Chronic (31) Suspected sleep apnea Status: Acute (32) COPD (chronic obstructive pulmonary disease) Status: Chronic Qualifiers: (33) Neuropathic pain Status: Chronic (34) Allergic rhinitis Status: Chronic Qualifiers: (35) Asthma Status: Chronic Qualifiers: (36) Acute kidney injury Status: Chronic (37) Mild asthma Status: Chronic (38) Osteoarthritis Status: Chronic Qualifiers: (39) Hyperlipidemia Status: Chronic Qualifiers: Hyperlipidemia type: unspecified Qualified Code(s): E78.5 - Hyperlipidemia, unspecified (40) Hypertension Status: Chronic Qualifiers: (41) Type 2 diabetes mellitus Status: Chronic Qualifiers: Diabetes mellitus prison insulin use: with superintendent [employer] use Diabetes mellitus complication status: with unspecified complications Qualified Code(s): E11.8 - Type 2 diabetes mellitus with unspecified complications; Z79.4 - USP (current) use of insulin History of Present Illness Date of Admission: 10/04/18 Chief Complaint: Decreased level of sensorium The patient is a 68 year old F with multiple significant comorbidities including CAD status post CABG, 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 Patient was found to be significantly lethargic on admission with hypercapnia was placed on BiPAP. Urinalysis was consistent with acute cystitis. Chest x-ray demonstrated Platelike atelectatic changes in the right lung base and a small right-sided pleural effusion the patient was also found to have multiple infected skin excoriations. Admitted to a monitored bed for subsequent management Past Medical History Past Medical History (Chronic Problems): Chronic Problems (Last Reviewed 05/04/18 @ 02:22 by Lorne Holder MD) Anemia (Chronic) DVT (deep venous thrombosis) (Chronic) CAD (coronary artery disease) (Chronic) Atherosclerotic heart disease of [place] coronary artery without angina pectoris (Chronic) CABG x5 - LE to LAD, SVG to diag, SVG to OM1, SVG to OM2, SVG to PDA @[facility] on 02/15/18 Nonrheumatic mitral valve regurgitation (Chronic) Stage IV pressure ulcer of sacral region (Chronic) Traumatic hematoma of left thigh (Chronic) Traumatic hematoma of left lower leg (Chronic) Unstageable pressure ulcer of sacral region (Chronic) Osteomyelitis of left foot (Chronic) Obesity (Chronic) Neuropathic pain (Chronic) S/P CABG (coronary artery bypass graft) (Chronic ~02/15/18) Recent CABG x5 - LE to LAD, SVG to diag, SVG to OM1, SVG to OM2, SVG to PDA @[facility] on 02/15/18, team contact ORDER ENTRY Abdirahman Rhodes. Acute deep vein thrombosis (DVT) of left upper extremity (Chronic) Recent LUE DVT while at [facility] s/p CABG. On therapeutic lovenox/coumadin bridge awaiting INR to be therapeutic. Acute anemia (Chronic) Post-operatively Hgb decrease, s/p 2 u PRBC. Decubitus ulcer (Chronic) ESBL Coccyx Decubitous Ulcer Stage IV s/p I+D with VAC placement. Continued on Meropenem regimen per ID recommendation x 6 weeks additional to concurrently treat R Foot Osteomyelitis. Foot osteomyelitis, right (Chronic) Recent R Foot Osteomyelitis, maintained on meropenem and voriconazole for planned addition [address] weeks of treatment per Dr. Palmer direction. Pain in right toe(s) (Chronic) Type 2 diabetes mellitus (Chronic) Obesity (BMI 30.0-34.9) (Chronic) HERNANDEZ (dyspnea on exertion) (Chronic) ELDER (obstructive sleep apnea) (Chronic) COPD (chronic obstructive pulmonary disease) (Chronic) Neuropathic pain (Chronic) Allergic rhinitis (Chronic) Asthma (Chronic) Acute kidney injury (Chronic) Mild asthma (Chronic) Osteoarthritis (Chronic) Hyperlipidemia (Chronic) Hypertension (Chronic) Type 2 diabetes mellitus (Chronic) Medical History: Medical History (Last Reviewed 05/04/18 @ 02:22 by Lorne Holder MD) Atherosclerotic heart disease of [place] coronary artery without angina pectoris (Chronic) I25.10 CABG x5 - LE to LAD, SVG to diag, SVG to OM1, SVG to OM2, SVG to PDA @[facility] on 02/15/18 Nonrheumatic mitral valve regurgitation (Chronic) I34.0 Suspected sleep apnea (Acute) G47.30 COPD (chronic obstructive pulmonary disease) (Chronic) J44.9 Neuropathic pain (Chronic) Allergic rhinitis (Chronic) J30.9 Asthma (Chronic) J45.909 Acute kidney injury (Chronic) N17.9 Mild asthma (Chronic) J45.998 Osteoarthritis (Chronic) M19.90 Hyperlipidemia (Chronic) E78.5 Hypertension (Chronic) I10 Type 2 diabetes mellitus (Chronic) E11.9 Abnormal echocardiogram R93.1 Cardiomegaly I51.7 GERD (gastroesophageal reflux disease) K21.9 Hypertriglyceridemia E78.1 Hypoxia R09.02 ELDER (obstructive sleep apnea) G47.33 Tobacco use Z72.0 Vitamin D deficiency E55.9 History of hysterectomy Z90.710 Community acquired pneumonia (Inactive) J18.9 Fall (Inactive) W19.XXXA Rhabdomyolysis (Inactive) M62.82 Allergies lisinopril Adverse Reaction (Verified 02/26/18 11:13) Other metronidazole Adverse Reaction (Verified 10/04/18 06:47) Other Home Medications: Ambulatory Orders Medication Instructions Recorded gabapentin 300 mg capsule 600 mg PO TID cap 08/23/17 Ascorbic Acid [Vitamin C] 500 mg PO BIDCM 03/04/18 Carvedilol [Coreg] 12.5 mg PO BID 03/04/18 Folic Acid 1 mg PO DAILY@0800 03/04/18 Iron Polysaccharide Complex 150 mg PO BID 03/04/18 [Ferrex 150] Melatonin 3 mg PO QHS 03/04/18 Bisacodyl 10 mg RC PRN PRN 05/03/18 Glipizide [Glucotrol] 20 mg PO DAILY 05/03/18 Insulin Lispro [Humalog KwikPen] See Protocol SC ACHS 05/03/18 Megestrol Acetate 10 ml PO BID 05/03/18 Mirtazapine 7.5 mg PO QHS 05/03/18 Nutritional Supplement [Radames - 1 packet PO BIDCM 05/03/18 ORANGE FLAVOR] Warfarin Sodium [Coumadin] 3 mg PO DAILY 05/03/18 Amiodarone HCl 400 mg PO DAILY 10/04/18 Dextrose [Glucose Gel] 37.5 gm PO PRN PRN 10/04/18 Docusate Sodium [Colace] 100 mg PO BID 10/04/18 Fentanyl 1 each TD QODAY 10/04/18 Gluc Cerda/Chondro Cerda A/Vit C/Mn 3 each PO DAILY 10/04/18 [Glucosamine Chondroitin Tab] Glucagon,Human Recombinant 1 mg IJ PRN PRN 10/04/18 [Glucagen] Insulin Glargine,Hum.rec.anlog 10 unit SQ DAILY 10/04/18 [Lantus] Insulin Glargine,Hum.rec.anlog 25 unit SQ QHS 10/04/18 [Lantus] Ipratropium/Albuterol Sulfate 3 ml IH Q2H PRN PRN 10/04/18 [Iprat-Albut 0.5-3(2.5) mg/3 ml] Magnesium Hydroxide [Milk of 30 ml PO DAILY PRN PRN 10/04/18 Magnesia] Mineral Oil 133 ml RC DAILY PRN PRN 10/04/18 Multivitamin [Once Daily] 1 each PO DAILY 10/04/18 Oxycodone HCl/Acetaminophen 2 tablet PO Q4H PRN PRN 10/04/18 [Percocet 5/325] Polyethylene Glycol 1450 17 gm PO DAILY 10/04/18 Zinc Sulfate 220 mg PO DAILY 10/04/18 Surgical History: Surgical History (Last Reviewed 05/04/18 @ 02:23 by Lorne Holder MD) S/P CABG (coronary artery bypass graft) (Chronic) Onset Date: ~02/15/18 Z95.1 Recent CABG x5 - LE to LAD, SVG to diag, SVG to OM1, SVG to OM2, SVG to PDA @[facility] on 02/15/18, team contact SOUMYA Rhodes. H/O adenoidectomy Z90.89 History of appendectomy Z90.49 History of carpal tunnel release Z98.890 History of tonsillectomy Z90.89 Surgical History: appendectomy, coronary bypass surgery - X 5., hysterectomy, tonsillectomy, - - Bilateral tubal ligation. Psychiatric History: No pertinent psych hx DIE BARBER History: No pertinent DIE BARBER history Smoking Status: Former smoker - *Family History Maternal Family History: Family History (Last Reviewed 10/04/18 @ 13:47 by Scott Landrum MD) Mother Colon cancer History Items: Diabetes, Pulmonary Disease Paternal Family History: Family History (Last Reviewed 10/04/18 @ 13:47 by Scott Landrum MD) Mother Colon cancer History Items: - - Patient notes father with possible history of Crohn's disease. Sibling Family History: Family History (Last Reviewed 10/04/18 @ 13:47 by Scott Landrum MD) Mother Colon cancer History Items: Diabetes, Heart Disease, - - ELDER Review of Systems Unable to obtain accurate/complete ROS d/t: Increased level of sensorium VTE Information - Inpt Only VTE Present on Admission: No Objective: GENERAL: Dyspneic at rest on BiPAP HEENT: Atraumatic; moist oral mucosa EYES; Anicteric, Normal Conjunctiva NECK; supple, normal thyroid, no distended JVD. RESPIRATORY: Diminished to auscultation bilaterally, CARDIOVASCULAR: Regular S1 S2, GI: soft, non-tender, normoactive bowel sounds, : No Renal angle tenderness; EXTREMITIES: No edema, no clubbing, no cyanosis. MUSCULOSKELETAL: No Joint Tenderness; no muscle waisting NEURO: Awake; no lateralizing signs. SKIN: Areas of sleeping wounds on both lower extremities as well as the lower part of her sternum at the site of her CABG incision PSYCH; Normal affect - Physical Exam Vital Signs Temp Pulse Resp BP Pulse Ox 98.9 F 78 27 H 117/60 98 10/04/18 07:41 10/04/18 07:40 10/04/18 07:40 10/04/18 07:40 10/04/18 07:40 Oxygen Flow Rate (L/min) 6 Oxygen Delivery Method Nasal Cannula Weight: 92 kg Body Mass Index (BMI) 35.9 Finger Stick Blood Glucose 165 Laboratory Tests Past 24 Hrs 10/04/18 10/04/18 10/04/18 06:50 06:50 06:50 WBC 6.0 RBC 2.93 L Hgb 9.2 L Hct 29.9 L MCV 102.0 H MCH 31.4 MCHC 30.8 L RDW 15.6 H RDW Differential 58.1 H Plt Count 210 MPV 8.6 Immature Gran % (Auto) 0.300 Neut % (Auto) 74.1 H Lymph % (Auto) 13.6 L Glynn % (Auto) 10.6 H Eos % (Auto) 1.2 Baso % (Auto) 0.2 Absolute Neuts (auto) 4.4 Absolute Lymphs (auto) 0.81 L Total Counted Not Reportable PT 21.5 H INR 1.9 APTT 48.8 H Specimen Type Sample Site pH Bicarbonate Actual POC Total CO2 Base Excess O2 Saturation ABG pCO2 ABG pO2 O2 Delivery Device Liter Flow Blood Gas Notified Whom Blood Gas Notified Time Sodium 144 Potassium 4.6 Chloride 108 H Carbon Dioxide 29.0 Anion Gap 7 BUN 46 H Creatinine 0.51 L Estim Creat Clear Calc 43.92 Est GFR (MDRD) Af Amer 153 Est GFR (MDRD) Non-Af 127 BUN/Creatinine Ratio 90.0 H Glucose 159 H Lactic Acid Calcium 9.1 Total Bilirubin 0.30 AST 8 L ALT 13 Alkaline Phosphatase 245 H Troponin I 0.033 Total Protein 5.9 L Albumin 2.0 L Globulin 3.9 Albumin/Globulin Ratio 0.5 L Urine Color Urine Clarity Urine pH Ur Specific [place] Urine Protein Urine Glucose (UA) Urine Ketones Urine Occult Blood Urine Nitrite Urine Bilirubin Urine Urobilinogen Ur Leukocyte Esterase Urine RBC Urine WBC Ur Squamous Epith Cells Urine Bacteria Urine Mucus 10/04/18 10/04/18 10/04/18 07:10 07:40 08:05 WBC RBC Hgb Hct MCV MCH MCHC RDW RDW Differential Plt Count MPV Immature Gran % (Auto) Neut % (Auto) Lymph % (Auto) Glynn % (Auto) Eos % (Auto) Baso % (Auto) Absolute Neuts (auto) Absolute Lymphs (auto) Total Counted PT INR APTT Specimen Type ART Sample Site R Radial pH 7.25 L Bicarbonate Actual 30.1 H POC Total CO2 32 Base Excess 3 H O2 Saturation 94 L ABG pCO2 68.4 H* ABG pO2 85 O2 Delivery Device Nasal Can Liter Flow 6.0 Blood Gas Notified Whom ED Blood Gas Notified Time 739 Sodium Potassium Chloride Carbon Dioxide Anion Gap BUN Creatinine Estim Creat Clear Calc Est GFR (MDRD) Af Amer Est GFR (MDRD) Non-Af BUN/Creatinine Ratio Glucose Lactic Acid 0.3 L Calcium Total Bilirubin AST ALT Alkaline Phosphatase Troponin I Total Protein Albumin Globulin Albumin/Globulin Ratio Urine Color Pending Urine Clarity Pending Urine pH Pending Ur Specific [place] Pending Urine Protein Pending Urine Glucose (UA) Pending Urine Ketones Pending Urine Occult Blood Pending Urine Nitrite Pending Urine Bilirubin Pending Urine Urobilinogen Pending Ur Leukocyte Esterase Pending Urine RBC Pending Urine WBC Pending Ur Squamous Epith Cells Pending Urine Bacteria Pending Urine Mucus Pending POC Glucose 10/04/18 06:55 POC Glucose 165 H Assessment/Plan All Active Problems (Last Reviewed 05/04/18 @ 02:22 by Lorne Holder MD) Sepsis associated hypotension (Acute) UTI (urinary tract infection) (Acute) Open wound of left thigh (Acute) Open wound of left lower extremity (Acute) Skin necrosis (Acute) Hematoma (Resolved) Cellulitis of right foot (Resolved) Abscess of toe of right foot (Acute) Infectious arthritis (Acute) Hypoxia (Acute) Suspected sleep apnea (Acute) Patient is a 68-year-old lady with multiple comorbidities admitted with decreased level of sensorium 1. Acute metabolic encephalopathy secondary to respiratory failure with hypercapnia patient placed on noninvasive ventilation BiPAP 2. Hypoxemic and hypercapnic respiratory failure possibly precipitated by patient multiple psychotropic medications in the setting of COPD, obstructive sleep apnea and possible obesity hypoventilation,patient was placed on noninvasive ventilation consult placed to Dr. Barnes with pulmonary/critical care. His notes and recommendations reviewed 3. Sepsis secondary to UTI due to the presence of Allen catheter present on admission 4. Stage III coccyx decubitus ulcer: Consult placed to wound care nurse dressing changes 5. Anemia secondary to anemia of chronic disorder: Monitoring H&H with plans to transfuse if patient becomes symptomatic or hemoglobin falls below 7 6. DVT involving the left upper extremity diagnosed in February 2018; patient is on systemic anticoagulation with warfarin 7. CAD with previous three-vessel CABG currently recommended medication 8. Essential hypertension-blood pressure controlled, home medications continued with dose adjustment as needed 9. Dyslipidemia 10. 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 COPD 12. Obstructive sleep apnea 13. Obesity hypoventilation syndrome 14. GERD 15. DVT prophylaxis on Coumadin Advance planning; did discuss with the family regarding her advanced directives as well as CODE STATUS. Did explain the various modalities involved ( FULL CODE, DNR CCA, DNR CCA with no intubation, and DNR CC ) family wishes for patient to remain DNR CCA no intubation do also like us to consider hospice consultation if patient condition does not improve within 48 hours of her admission. Time spent on [id number] discussion 22 minutes. Code Visit Inpatient E&M: 89198 Init Hosp L3 Procedures: 65796 Advncd Care Plan 30 Min
--- NOTE | 2018-10-04 08:30 | NURSING ---
PCU STEPDOWN KITTOE RESP FAILURE, SEPSIS
[2018-10-04 08:33] LABS: Color, Urine Yellow (Yellow); Glucose, Dipstick Normal (Normal); Ketone-Dipstick Negative (Negative); Leukocyte Esterase-Dipstick 500 /ul (Negative); Nitrite-Dipstick Negative (Negative); Occult Blood-Urine 150 /ul (Negative); Protein-Dipstick 30 mg/dl (Negative); Specific Gravity, Urine 1.015 (1.002-1.030); Urine Bilirubin Dipstick Negative (Negative); Urine Clarity Sl. Cloudy (Clear); Urine Urobilinogen Normal (Normal)
[2018-10-04 08:49] LABS: Bacteria 1+ /hpf (None Seen); Red Blood Cells-Urine 10-25 SEEN /hpf (0-5); Squamous Epithelial Cells - UA 0-5 SEEN /hpf (5-10); White Blood Cells 25-50 SEEN /hpf (0-5)
--- NOTE | 2018-10-04 08:54 | PCM.CONS.GEN ---
Reason for Consult Date of Consultation: 10/04/18 History of Present Illness: The patient is a 68-year-old female, with a history as outlined below, who presented to the emergency department on October 04 in an encephalopathic state. 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 The patient is currently residing in a intermediate facility. The patient's family reported that she was less responsive beginning yesterday evening. While the patient does have known obstructive sleep apnea and was previously prescribed nocturnal BiPAP therapy, they admit that she has been noncompliant with its use. On presentation to the emergency department, the patient was noted to be febrile with a temperature of 38.5 ?C. She was, nevertheless, hemodynamically stable. Initial laboratory evaluation revealed no evidence of a leukocytosis. INR was noted to be 1.9. Arterial blood gas obtained on 6 L/min revealed a pH of 7.25 with a corresponding PCO2 of 68 and PO2 of 85. Chemistry profile was largely unremarkable. Lactate was within normal limits. Troponin was negative. Urinalysis revealed negative nitrites, positive leukocyte esterase, 25-50 white blood cells and 1+ urine bacteria. The patient does currently have a right upper extremity PICC line in place. The patient has a history of COPD and obstructive sleep apnea, for which she follows with me in the pulmonary medicine clinic. I last saw her in November 2017. Pulmonary function testing completed in March 2017 revealed the presence of a mild large airways obstructive ventilatory defect with an associated significant response to aerosolized bronchodilators, hyperinflation, air trapping and a mild reduction in diffuse opacity. The patient was reportedly seen previously by an bar staff and diagnosed with asthma. 6 minute walk test did reveal evidence of significant exertional oxygen desaturation, but did not meet inclusion criteria with use of supplemental oxygen. The patient does have a limited smoking history, having quit completely 24 years ago. She also underwent evaluation with a polysomnogram, which revealed evidence of obstructive sleep apnea. She is currently prescribed bilevel therapy with a pressure setting of 13/9 cm of water with medication. At her last office visit with me, she had demonstrated 100% compliance with its use. Past Medical History Past Medical History (Chronic Problems): Chronic Problems (Last Reviewed 05/04/18 @ 02:22 by Lorne Holder MD) Atherosclerotic heart disease of [place] coronary artery without angina pectoris (Chronic) CABG x5 - LE to LAD, SVG to diag, SVG to OM1, SVG to OM2, SVG to PDA @[facility] on 02/15/18 Nonrheumatic mitral valve regurgitation (Chronic) Stage IV pressure ulcer of sacral region (Chronic) Unstageable pressure ulcer of sacral region (Chronic) Obesity (Chronic) Neuropathic pain (Chronic) S/P CABG (coronary artery bypass graft) (Chronic ~02/15/18) Recent CABG x5 - LE to LAD, SVG to diag, SVG to OM1, SVG to OM2, SVG to PDA @[facility] on 02/15/18, team contact SOUMYA Rhodes. Acute deep vein thrombosis (DVT) of left upper extremity (Chronic) Recent LUE DVT while at [facility] s/p CABG. On therapeutic lovenox/coumadin bridge awaiting INR to be therapeutic. Foot osteomyelitis, right (Chronic) Recent R Foot Osteomyelitis, maintained on meropenem and voriconazole for planned addition 6 weeks of treatment per Dr. Palmer direction. Type 2 diabetes mellitus (Chronic) Obesity (BMI 30.0-34.9) (Chronic) HERNANDEZ (dyspnea on exertion) (Chronic) ELDER (obstructive sleep apnea) (Chronic) COPD (chronic obstructive pulmonary disease) (Chronic) Neuropathic pain (Chronic) Allergic rhinitis (Chronic) Asthma (Chronic) Mild asthma (Chronic) Osteoarthritis (Chronic) Hyperlipidemia (Chronic) Hypertension (Chronic) Type 2 diabetes mellitus (Chronic) Medical History: Medical History (Last Reviewed 05/04/18 @ 02:22 by Lorne Holder MD) Atherosclerotic heart disease of [place] coronary artery without angina pectoris (Chronic) I25.10 CABG x5 - LE to LAD, SVG to diag, SVG to OM1, SVG to OM2, SVG to PDA @[facility] on 02/15/18 Nonrheumatic mitral valve regurgitation (Chronic) I34.0 Suspected sleep apnea (Acute) G47.30 COPD (chronic obstructive pulmonary disease) (Chronic) J44.9 Neuropathic pain (Chronic) Allergic rhinitis (Chronic) J30.9 Asthma (Chronic) J45.909 Acute kidney injury (Acute) N17.9 Mild asthma (Chronic) J45.998 Osteoarthritis (Chronic) M19.90 Hyperlipidemia (Chronic) E78.5 Hypertension (Chronic) I10 Type 2 diabetes mellitus (Chronic) E11.9 Abnormal echocardiogram R93.1 Cardiomegaly I51.7 GERD (gastroesophageal reflux disease) K21.9 Hypertriglyceridemia E78.1 Hypoxia R09.02 ELDER (obstructive sleep apnea) G47.33 Tobacco use Z72.0 Vitamin D deficiency E55.9 History of hysterectomy Z90.710 Community acquired pneumonia (Inactive) J18.9 Fall (Inactive) W19.XXXA Rhabdomyolysis (Inactive) M62.82 Allergies lisinopril Adverse Reaction (Verified 10/04/18 08:46) Other metronidazole Adverse Reaction (Verified 10/04/18 08:46) Other Home Medications: Ambulatory Orders Medication Instructions Recorded gabapentin 300 mg capsule 600 mg PO TID cap 08/23/17 Ascorbic Acid [Vitamin C] 500 mg PO BIDCM 03/04/18 Carvedilol [Coreg] 12.5 mg PO BID 03/04/18 Folic Acid 1 mg PO DAILY@0800 03/04/18 Iron Polysaccharide Complex 150 mg PO BID 03/04/18 [Ferrex 150] Melatonin 3 mg PO QHS 03/04/18 Bisacodyl 10 mg RC PRN PRN 05/03/18 Glipizide [Glucotrol] 20 mg PO DAILY 05/03/18 Insulin Lispro [Humalog KwikPen] See Protocol SC ACHS 05/03/18 Megestrol Acetate 10 ml PO BID 05/03/18 Mirtazapine 7.5 mg PO QHS 05/03/18 Nutritional Supplement [Radames - 1 packet PO BIDCM 05/03/18 ORANGE FLAVOR] Warfarin Sodium [Coumadin] 3 mg PO DAILY 05/03/18 Amiodarone HCl 400 mg PO DAILY 10/04/18 Dextrose [Glucose Gel] 37.5 gm PO PRN PRN 10/04/18 Docusate Sodium [Colace] 100 mg PO BID 10/04/18 Fentanyl 1 each TD QODAY 10/04/18 Gluc Cerda/Chondro Cerda A/Vit C/Mn 3 each PO DAILY 10/04/18 [Glucosamine Chondroitin Tab] Glucagon,Human Recombinant 1 mg IJ PRN PRN 10/04/18 [Glucagen] Insulin Glargine,Hum.rec.anlog 10 unit SQ DAILY 10/04/18 [Lantus] Insulin Glargine,Hum.rec.anlog 25 unit SQ QHS 10/04/18 [Lantus] Ipratropium/Albuterol Sulfate 3 ml IH Q2H PRN PRN 10/04/18 [Iprat-Albut 0.5-3(2.5) mg/3 ml] Magnesium Hydroxide [Milk of 30 ml PO DAILY PRN PRN 10/04/18 Magnesia] Mineral Oil 133 ml RC DAILY PRN PRN 10/04/18 Multivitamin [Once Daily] 1 each PO DAILY 10/04/18 Oxycodone HCl/Acetaminophen 2 tablet PO Q4H PRN PRN 10/04/18 [Percocet 5/325] Polyethylene Glycol 1450 17 gm PO DAILY 10/04/18 Zinc Sulfate 220 mg PO DAILY 10/04/18 Surgical History: Surgical History (Last Reviewed 05/04/18 @ 02:23 by Lorne Holder MD) S/P CABG (coronary artery bypass graft) (Chronic) Onset Date: ~02/15/18 Z95.1 Recent CABG x5 - LE to LAD, SVG to diag, SVG to OM1, SVG to OM2, SVG to PDA @[facility] on 02/15/18, team contact SOUMYA Rhodes. H/O adenoidectomy Z90.89 History of appendectomy Z90.49 History of carpal tunnel release Z98.890 History of tonsillectomy Z90.89 Surgical History: appendectomy, coronary bypass surgery - X 5., hysterectomy, tonsillectomy, - - Bilateral tubal ligation. Psychiatric History: No pertinent psych hx CS ASSOCIATE History: No pertinent CS ASSOCIATE history Smoking Status: Former smoker - *Family History Maternal Family History: Family History (Last Reviewed 11/22/17 @ 13:19 by Sherie Alves) Mother Colon cancer History Items: Diabetes, Pulmonary Disease Paternal Family History: Family History (Last Reviewed 11/22/17 @ 13:19 by Sherie Alves) Mother Colon cancer History Items: - - Patient notes father with possible history of Crohn's disease. Sibling Family History: Family History (Last Reviewed 11/22/17 @ 13:19 by Sherie Alves) Mother Colon cancer History Items: Diabetes, Heart Disease, - - ELDER Review of Systems Unable to obtain accurate/complete ROS d/t: Due to the patient's encephalopathic state Objective: The patient's most recent lab work, culture data and imaging studies have all been personally reviewed. - Physical Exam General: Lethargic, - - Will open eyes transiently and attempt to answer questions, only to fall quickly back to sleep. Quite ill in appearance HEENT: Atraumatic, PERRLA, Normocephalic Oral: Dry Mucosa Neck: Supple, No Nodes, Trachea Midline Lungs: No rhonchi, No wheeze, No rales, Diminished Cardiovascular: Regular rate, Regular Rhythm, Normal S1, Normal S2 Abdomen: Bowel Sounds Present, Soft, Non Tender, Obese Extremities: No clubbing, No cyanosis, No edema Skin: - - Multiple skin ulcers/wounds noted on bilateral upper extremities, lower extremities and sacrum. Musculoskeletal: No Muscle Wasting Lymphatic: No Cervical, Supraclavicular, or Inguinal Adenopathy Neurological: - - No focal neurological deficits. Vital Signs Temp Pulse Resp BP Pulse Ox 36.8 C 77 21 H 140/68 H 100 10/04/18 08:27 10/04/18 08:46 10/04/18 08:46 10/04/18 08:46 10/04/18 08:46 Oxygen Flow Rate (L/min) 6 Oxygen Delivery Method Bi-pap Weight: 202 lb 13.204 oz Body Mass Index (BMI) 35.9 Finger Stick Blood Glucose 165 Laboratory Tests Past 24 Hrs 10/04/18 10/04/18 10/04/18 06:50 06:50 06:50 WBC 6.0 RBC 2.93 L Hgb 9.2 L Hct 29.9 L MCV 102.0 H MCH 31.4 MCHC 30.8 L RDW 15.6 H RDW Differential 58.1 H Plt Count 210 MPV 8.6 Immature Gran % (Auto) 0.300 Neut % (Auto) 74.1 H Lymph % (Auto) 13.6 L Cecil % (Auto) 10.6 H Eos % (Auto) 1.2 Baso % (Auto) 0.2 Absolute Neuts (auto) 4.4 Absolute Lymphs (auto) 0.81 L Total Counted Not Reportable PT 21.5 H INR 1.9 APTT 48.8 H Specimen Type Sample Site pH Bicarbonate Actual POC Total CO2 Base Excess O2 Saturation ABG pCO2 ABG pO2 O2 Delivery Device Liter Flow Blood Gas Notified Whom Blood Gas Notified Time Sodium 144 Potassium 4.6 Chloride 108 H Carbon Dioxide 29.0 Anion Gap 7 BUN 46 H Creatinine 0.51 L Estim Creat Clear Calc 43.92 Est GFR (MDRD) Af Amer 153 Est GFR (MDRD) Non-Af 127 BUN/Creatinine Ratio 90.0 H Glucose 159 H Lactic Acid Calcium 9.1 Total Bilirubin 0.30 AST 8 L ALT 13 Alkaline Phosphatase 245 H Troponin I 0.033 Total Protein 5.9 L Albumin 2.0 L Globulin 3.9 Albumin/Globulin Ratio 0.5 L Urine Color Urine Clarity Urine pH Ur Specific Maud Urine Protein Urine Glucose (UA) Urine Ketones Urine Occult Blood Urine Nitrite Urine Bilirubin Urine Urobilinogen Ur Leukocyte Esterase Urine RBC Urine WBC Ur Squamous Epith Cells Urine Bacteria Urine Mucus 10/04/18 10/04/18 10/04/18 07:10 07:40 08:05 WBC RBC Hgb Hct MCV MCH MCHC RDW RDW Differential Plt Count MPV Immature Gran % (Auto) Neut % (Auto) Lymph % (Auto) Cecil % (Auto) Eos % (Auto) Baso % (Auto) Absolute Neuts (auto) Absolute Lymphs (auto) Total Counted PT INR APTT Specimen Type ART Sample Site R Radial pH 7.25 L Bicarbonate Actual 30.1 H POC Total CO2 32 Base Excess 3 H O2 Saturation 94 L ABG pCO2 68.4 H* ABG pO2 85 O2 Delivery Device Nasal Can Liter Flow 6.0 Blood Gas Notified Whom ED Blood Gas Notified Time 739 Sodium Potassium Chloride Carbon Dioxide Anion Gap BUN Creatinine Estim Creat Clear Calc Est GFR (MDRD) Af Amer Est GFR (MDRD) Non-Af BUN/Creatinine Ratio Glucose Lactic Acid 0.3 L Calcium Total Bilirubin AST ALT Alkaline Phosphatase Troponin I Total Protein Albumin Globulin Albumin/Globulin Ratio Urine Color Yellow Urine Clarity Sl. Cloudy Urine pH 6.0 Ur Specific Maud 1.015 Urine Protein 30 H Urine Glucose (UA) Normal Urine Ketones Negative Urine Occult Blood 150 H Urine Nitrite Negative Urine Bilirubin Negative Urine Urobilinogen Normal Ur Leukocyte Esterase 500 H Urine RBC 10-25 SEEN Urine WBC 25-50 SEEN Ur Squamous Epith Cells 0-5 SEEN Urine Bacteria 1+ Urine Mucus 0 SEEN POC Glucose 10/04/18 06:55 POC Glucose 165 H Clinical Impression(s) from Imaging Studies Chest X-Ray 10/04/18 07:10 IMPRESSION: Platelike atelectatic changes in the right lung base and a small right-sided pleural effusion. Electronically Signed: Johan Garcia MD at 7:42 EST Tel , Service support , Assessment/Plan All Active Problems (Last Reviewed 05/04/18 @ 02:22 by Lorne Holder MD) Sepsis associated hypotension (Acute) UTI (urinary tract infection) (Acute) Anemia (Acute) DVT (deep venous thrombosis) (Acute) CAD (coronary artery disease) (Acute) Open wound of left thigh (Acute) Open wound of left lower extremity (Acute) Traumatic hematoma of left thigh (Acute) Traumatic hematoma of left lower leg (Acute) Skin necrosis (Acute) Osteomyelitis of left foot (Acute) Acute anemia (Acute) Decubitus ulcer (Acute) Hematoma (Acute) Pain in right toe(s) (Acute) Cellulitis of right foot (Acute) Abscess of toe of right foot (Acute) Infectious arthritis (Acute) Hypoxia (Acute) Suspected sleep apnea (Acute) Acute kidney injury (Acute) RECOMMENDATIONS: 1. Transition from BiPAP to AVAPS with a target tidal volume of 400 mL's. 2. Continue broad-spectrum antibiotics, pending repeat infectious workup. 3. Wean supplemental oxygen as tolerated. 4. Avoid sedating medications. 5. Consider removal of right upper extremity PICC line 6. Continue scheduled bronchodilators. IMPRESSIONS: 1. Acute hypoxemic and hypercarbic respiratory failure While the patient does have known mild COPD, obstructive sleep apnea and possible obesity hypoventilation, she was not previously known by me to require supplemental oxygen. However, the patient's family reported to me this morning, that she has been utilizing supplemental oxygen in the intermediate facility on a continuous basis. The patient's plain film chest x-ray did not reveal findings concerning for an acute infectious process. I agree with continuing BiPAP support. However, I am going to transition the patient over to AVAPS to ensure adequate minute ventilation. Continue to wean supplemental oxygen. 2. Sepsis with sources that include urinary tract and necrotic soft tissue ulcers The patient has been placed on broad-spectrum antibiotics. She is currently hemodynamically stable. Would ask wound nurse to come evaluate patient. I am concerned that she has progressive necrotic soft tissue infections along with a potential urinary source of infection. Continue supplemental IV fluids for now, given the patient's encephalopathic state. 3. Metabolic encephalopathy Likely secondary to underlying infectious processes along with relative state of hypercarbia on presentation. Anticipate improvement in the patient's CO2 retention with AVAPS utilization. Antibiotics will be continued to address the patient's possible infectious processes. Would recommend holding sedating medications, including the patient's transdermal fentanyl patch. 4. Personal history of mild obstructive lung disease and obstructive sleep apnea Continue scheduled bronchodilators and noninvasive positive pressure ventilation as noted above. 5. Coronary artery disease status post CABG/obesity/neuropathy/chronic pain syndrome/diabetes mellitus/chronic anticoagulation Complicates care, management, recovery and prognosis. Recommend holding sedating medications, including transdermal fentanyl patch. Agree with Lantus and sliding scale insulin coverage. 6. CODE STATUS I did discuss this with the patient's family at the bedside. They have again confirmed that the patient is in fact a DNR CCA without plans for intubation. They also indicated to me that if the patient does not improve clinically over the next 24-48 hours with antibiotics, that they would then consider potential referral to hospice with subsequent implementation of comfort care measures. This note was generated with [employer] dictation software. It may contain incorrect words, spelling, and punctuation that were not noted in checking the note before signing. Code Visit Inpatient E&M: 82301 Init Hosp L3
--- NOTE | 2018-10-04 08:58 | CON.PCM_ITS ---
Reason for Consult Date of Consultation: 10/04/18 History of Present Illness: The patient is a 68-year-old female, with a history as outlined below, who presented to the emergency department on October 04 in an encephalopathic state. 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 The patient is currently residing in a longterm facility. The patient's family reported that she was less responsive beginning yesterday evening. While the patient does have known obstructive sleep apnea and was previously prescribed nocturnal BiPAP therapy, they admit that she has been noncompliant with its use. On presentation to the emergency department, the patient was noted to be febrile with a temperature of 38.5 ?C. She was, nevertheless, hemodynamically stable. Initial laboratory evaluation revealed no evidence of a leukocytosis. INR was noted to be 1.9. Arterial blood gas obtained on 6 L/min revealed a pH of 7.25 with a corresponding PCO2 of 68 and PO2 of 85. Chemistry profile was largely un remarkable. Lactate was within normal limits. Troponin was negative. Urinalysis revealed negative nitrites, positive leukocyte esterase, 25-50 white blood cells and 1+ urine bacteria. The patient does currently have a right upper extremity PICC line in place. The patient has a history of COPD and obstructive sleep apnea, for which she follows with me in the pulmonary medicine clinic. I last saw her in November 2017. Pulmonary function testing completed in March 2017 revealed the presence of a mild large airways obstructive ventilatory defect with an associated significant response to aerosolized bronchodilators, hyperinflation, air trapping and a mild reduction in diffuse opacity. The patient was reportedly seen previously by an licensed optical dispenser and diagnosed with asthma. 6 minute walk test did reveal evidence of significant exertional oxygen desaturation, but did not meet inclusion criteria with use of supplemental oxygen. The patient does have a limited smoking history, having quit completely 24 years ago. She also underwent evaluation with a polysomnogram, which revealed evidence of obstructive sleep apnea. She is currently prescribed bilevel therapy with a pressure setting of 13/9 cm of water with medication. At her last office visit with me, she had demonstrated 100% compliance with its use. 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 Acute deep vein thrombosis (DVT) of left upper extremity (Chronic) Recent LUE DVT while at [facility] s/p CABG. On therapeutic lovenox/coumadin bridge awaiting INR to be therapeutic. Foot osteomyelitis, right (Chronic) Recent R Foot Osteomyelitis, maintained on meropenem and voriconazole for planned addition 6 weeks of treatment per Dr. Palmer direction. Type 2 diabetes mellitus (Chronic) Obesity (BMI 30.0-34.9) (Chronic) HERNANDEZ (dyspnea on exertion) (Chronic) ELDER (obstructive sleep apnea) (Chronic) COPD (chronic obstructive pulmonary disease) (Chronic) Neuropathic pain (Chronic) Allergic rhinitis (Chronic) Asthma (Chronic) Mild asthma (Chronic) Osteoarthritis (Chronic) Hyperlipidemia (Chronic) Hypertension (Chronic) Type 2 diabetes mellitus (Chronic) Medical History: Medical History (Last Reviewed 05/04/18 @ 02:22 by Lorne Holder MD) Atherosclerotic heart disease of [place] coronary artery without angina pectoris (Chronic) I25.10 CABG x5 - LE to LAD, SVG to diag, SVG to OM1, SVG to OM2, SVG to PDA @[facility] on 02/15/18 Nonrheumatic mitral valve regurgitation (Chronic) I34.0 Suspected sleep apnea (Acute) G47.30 COPD (chronic obstructive pulmonary disease) (Chronic) J44.9 Neuropathic pain (Chronic) Allergic rhinitis (Chronic) J30.9 Asthma (Chronic) J45.909 Acute kidney injury (Acute) N17.9 Mild asthma (Chronic) J45.998 Osteoarthritis (Chronic) M19.90 Hyperlipidemia (Chronic) E78.5 Hypertension (Chronic) I10 Type 2 diabetes mellitus (Chronic) E11.9 Abnormal echocardiogram R93.1 Cardiomegaly I51.7 GERD (gastroesophageal reflux disease) K21.9 Hypertriglyceridemia E78.1 Hypoxia R09.02 ELDER (obstructive sleep apnea) G47.33 Tobacco use Z72.0 Vitamin D deficiency E55.9 History of hysterectomy Z90.710 Community acquired pneumonia (Inactive) J18.9 Fall (Inactive) W19.XXXA Rhabdomyolysis (Inactive) M62.82 Allergies lisinopril Adverse Reaction (Verified 10/04/18 08:46) Other metronidazole Adverse Reaction (Verified 10/04/18 08:46) Other Home Medications: Ambulatory Orders Medication Instructions Recorded gabapentin 300 mg capsule 600 mg PO TID cap 08/23/17 Ascorbic Acid [Vitamin C] 500 mg PO BIDCM 03/04/18 Carvedilol [Coreg] 12.5 mg PO BID 03/04/18 Folic Acid 1 mg PO DAILY@0800 03/04/18 Iron Polysaccharide Complex 150 mg PO BID 03/04/18 [Ferrex 150] Melatonin 3 mg PO QHS 03/04/18 Bisacodyl 10 mg RC PRN PRN 05/03/18 Glipizide [Glucotrol] 20 mg PO DAILY 05/03/18 Insulin Lispro [Humalog KwikPen] See Protocol SC ACHS 05/03/18 Megestrol Acetate 10 ml PO BID 05/03/18 Mirtazapine 7.5 mg PO QHS 05/03/18 Nutritional Supplement [Radames - 1 packet PO BIDCM 05/03/18 ORANGE FLAVOR] Warfarin Sodium [Coumadin] 3 mg PO DAILY 05/03/18 Amiodarone HCl 400 mg PO DAILY 10/04/18 Dextrose [Glucose Gel] 37.5 gm PO PRN PRN 10/04/18 Docusate Sodium [Colace] 100 mg PO BID 10/04/18 Fentanyl 1 each TD QODAY 10/04/18 Gluc Cerda/Chondro Cerda A/Vit C/Mn 3 each PO DAILY 10/04/18 [Glucosamine Chondroitin Tab] Glucagon,Human Recombinant 1 mg IJ PRN PRN 10/04/18 [Glucagen] Insulin Glargine,Hum.rec.anlog 10 unit SQ DAILY 10/04/18 [Lantus] Insulin Glargine,Hum.rec.anlog 25 unit SQ QHS 10/04/18 [Lantus] Ipratropium/Albuterol Sulfate 3 ml IH Q2H PRN PRN 10/04/18 [Iprat-Albut 0.5-3(2.5) mg/3 ml] Magnesium Hydroxide [Milk of 30 ml PO DAILY PRN PRN 10/04/18 Magnesia] Mineral Oil 133 ml RC DAILY PRN PRN 10/04/18 Multivitamin [Once Daily] 1 each PO DAILY 10/04/18 Oxycodone HCl/Acetaminophen 2 tablet PO Q4H PRN PRN 10/04/18 [Percocet 5/325] Polyethylene Glycol 1450 17 gm PO DAILY 10/04/18 Zinc Sulfate 220 mg PO DAILY 10/04/18 Surgical History: Surgical History (Last Reviewed 05/04/18 @ 02:23 by Lorne Holder MD) S/P CABG (coronary artery bypass graft) (Chronic) Onset Date: ~02/15/18 Z95.1 Recent CABG x5 - LE to LAD, SVG to diag, SVG to OM1, SVG to OM2, SVG to PDA @[facility] on 02/15/18, team contact SOUMYA Rhodes. H/O adenoidectomy Z90.89 History of appendectomy Z90.49 History of carpal tunnel release Z98.890 History of tonsillectomy Z90.89 Surgical History: appendectomy, coronary bypass surgery - X 5., hysterectomy, tonsillectomy, - - Bilateral tubal ligation. Psychiatric History: No pertinent psych hx [employer] History: No pertinent [employer] history Smoking Status: Former smoker - *Family History Maternal Family History: Family History (Last Reviewed 11/22/17 @ 13:19 by Sherie Alves) Mother Colon cancer History Items: Diabetes, Pulmonary Disease Paternal Family History: Family History (Last Reviewed 11/22/17 @ 13:19 by Sherie Alves) Mother Colon cancer History Items: - - Patient notes father with possible history of Crohn's disease. Sibling Family History: Family History (Last Reviewed 11/22/17 @ 13:19 by Sherie Alves) Mother Colon cancer History Items: Diabetes, Heart Disease, - - ELDER Review of Systems Unable to obtain accurate/complete ROS d/t: Due to the patient's encephalopathic state Objective: The patient's most recent lab work, culture data and imaging studies have all been personally reviewed. - Physical Exam General: Lethargic, - - Will open eyes transiently and attempt to answer questions, only to fall quickly back to sleep. Quite ill in appearance HEENT: Atraumatic, PERRLA, Normocephalic Oral: Dry Mucosa Neck: Supple, No Nodes, Trachea Midline Lungs: No rhonchi, No wheeze, No rales, Diminished Cardiovascular: Regular rate, Regular Rhythm, Normal S1, Normal S2 Abdomen: Bowel Sounds Present, Soft, Non Tender, Obese Extremities: No clubbing, No cyanosis, No edema Skin: - - Multiple skin ulcers/wounds noted on bilateral upper extremities, lower extremities and sacrum. Musculoskeletal: No Muscle Wasting Lymphatic: No Cervical, Supraclavicular, or Inguinal Adenopathy Neurological: - - No focal neurological deficits. Vital Signs Temp Pulse Resp BP Pulse Ox 36.8 C 77 21 H 140/68 H 100 10/04/18 08:27 10/04/18 08:46 10/04/18 08:46 10/04/18 08:46 10/04/18 08:46 Oxygen Flow Rate (L/min) 6 Oxygen Delivery Method Bi-pap Weight: 202 lb 13.204 oz Body Mass Index (BMI) 35.9 Finger Stick Blood Glucose 165 Laboratory Tests Past 24 Hrs 10/04/18 10/04/18 10/04/18 06:50 06:50 06:50 WBC 6.0 RBC 2.93 L Hgb 9.2 L Hct 29.9 L MCV 102.0 H MCH 31.4 MCHC 30.8 L RDW 15.6 H RDW Differential 58.1 H Plt Count 210 MPV 8.6 Immature Gran % (Auto) 0.300 Neut % (Auto) 74.1 H Lymph % (Auto) 13.6 L [place] % (Auto) 10.6 H Eos % (Auto) 1.2 Baso % (Auto) 0.2 Absolute Neuts (auto) 4.4 Absolute Lymphs (auto) 0.81 L Total Counted Not Reportable PT 21.5 H INR 1.9 APTT 48.8 H Specimen Type Sample Site pH Bicarbonate Actual POC Total CO2 Base Excess O2 Saturation ABG pCO2 ABG pO2 O2 Delivery Device Liter Flow Blood Gas Notified Whom Blood Gas Notified Time Sodium 144 Potassium 4.6 Chloride 108 H Carbon Dioxide 29.0 Anion Gap 7 BUN 46 H Creatinine 0.51 L Estim Creat Clear Calc 43.92 Est GFR (MDRD) Af Amer 153 Est GFR (MDRD) Non-Af 127 BUN/Creatinine Ratio 90.0 H Glucose 159 H Lactic Acid Calcium 9.1 Total Bilirubin 0.30 AST 8 L ALT 13 Alkaline Phosphatase 245 H Troponin I 0.033 Total Protein 5.9 L Albumin 2.0 L Globulin 3.9 Albumin/Globulin Ratio 0.5 L Urine Color Urine Clarity Urine pH Ur Specific Paia Urine Protein Urine Glucose (UA) Urine Ketones Urine Occult Blood Urine Nitrite Urine Bilirubin Urine Urobilinogen Ur Leukocyte Esterase Urine RBC Urine WBC Ur Squamous Epith Cells Urine Bacteria Urine Mucus 10/04/18 10/04/18 10/04/18 07:10 07:40 08:05 WBC RBC Hgb Hct MCV MCH MCHC RDW RDW Differential Plt Count MPV Immature Gran % (Auto) Neut % (Auto) Lymph % (Auto) [place] % (Auto) Eos % (Auto) Baso % (Auto) Absolute Neuts (auto) Absolute Lymphs (auto) Total Counted PT INR APTT Specimen Type ART Sample Site R Radial pH 7.25 L Bicarbonate Actual 30.1 H POC Total CO2 32 Base Excess 3 H O2 Saturation 94 L ABG pCO2 68.4 H* ABG pO2 85 O2 Delivery Device Nasal Can Liter Flow 6.0 Blood Gas Notified Whom ED Blood Gas Notified Time 739 Sodium Potassium Chloride Carbon Dioxide Anion Gap BUN Creatinine Estim Creat Clear Calc Est GFR (MDRD) Af Amer Est GFR (MDRD) Non-Af BUN/Creatinine Ratio Glucose Lactic Acid 0.3 L Calcium Total Bilirubin AST ALT Alkaline Phosphatase Troponin I Total Protein Albumin Globulin Albumin/Globulin Ratio Urine Color Yellow Urine Clarity Sl. Cloudy Urine pH 6.0 Ur Specific Paia 1.015 Urine Protein 30 H Urine Glucose (UA) Normal Urine Ketones Negative Urine Occult Blood 150 H Urine Nitrite Negative Urine Bilirubin Negative Urine Urobilinogen Normal Ur Leukocyte Esterase 500 H Urine RBC 10-25 SEEN Urine WBC 25-50 SEEN Ur Squamous Epith Cells 0-5 SEEN Urine Bacteria 1+ Urine Mucus 0 SEEN POC Glucose 10/04/18 06:55 POC Glucose 165 H Clinical Impression(s) from Imaging Studies Chest X-Ray 10/04/18 07:10 IMPRESSION: Platelike atelectatic changes in the right lung base and a small right-sided pleural effusion. Electronically Signed: Johan Garcia MD at 7:42 EST Tel , Service support , Assessment/Plan All Active Problems (Last Reviewed 05/04/18 @ 02:22 by Lorne Holder MD) Sepsis associated hypotension (Acute) UTI (urinary tract infection) (Acute) Anemia (Acute) DVT (deep venous thrombosis) (Acute) CAD (coronary artery disease) (Acute) Open wound of left thigh (Acute) Open wound of left lower extremity (Acute) Traumatic hematoma of left thigh (Acute) Traumatic hematoma of left lower leg (Acute) Skin necrosis (Acute) Osteomyelitis of left foot (Acute) Acute anemia (Acute) Decubitus ulcer (Acute) Hematoma (Acute) Pain in right toe(s) (Acute) Cellulitis of right foot (Acute) Abscess of toe of right foot (Acute) Infectious arthritis (Acute) Hypoxia (Acute) Suspected sleep apnea (Acute) Acute kidney injury (Acute) RECOMMENDATIONS: 1. Transition from BiPAP to AVAPS with a target tidal volume of 400 mL's. 2. Continue broad-spectrum antibiotics, pending repeat infectious workup. 3. Wean supplemental oxygen as tolerated. 4. Avoid sedating medications. 5. Consider removal of right upper extremity PICC line 6. Continue scheduled bronchodilators. IMPRESSIONS: 1. Acute hypoxemic and hypercarbic respiratory failure While the patient does have known mild COPD, obstructive sleep apnea and possible obesity hypoventilation, she was not previously known by me to require supplemental oxygen. However, the patient's family reported to me this morning, that she has been utilizing supplemental oxygen in the longterm facility on a continuous basis. The patient's plain film chest x-ray did not reveal findings concerning for an acute infectious process. I agree with continuing BiPAP support. However, I am going to transition the patient over to AVAPS to ensure adequate minute ventilation. Continue to wean supplemental oxygen. 2. Sepsis with sources that include urinary tract and necrotic soft tissue ulcers The patient has been placed on broad-spectrum antibiotics. She is currently hemodynamically stable. Would ask wound nurse to come evaluate patient. I am concerned that she has progressive necrotic soft tissue infections along with a potential urinary source of infection. Continue supplemental IV fluids for now, given the patient's encephalopathic state. 3. Metabolic encephalopathy Likely secondary to underlying infectious processes along with relative state of hypercarbia on presentation. Anticipate improvement in the patient's CO2 retention with AVAPS utilization. Antibiotics will be continued to address the patient's possible infectious processes. Would recommend holding sedating medications, including the patient's transdermal fentanyl patch. 4. Personal history of mild obstructive lung disease and obstructive sleep apnea Continue scheduled bronchodilators and noninvasive positive pressure ventilation as noted above. 5. Coronary artery disease status post CABG/obesity/neuropathy/chronic pain syndrome/diabetes mellitus/chronic anticoagulation Complicates care, management, recovery and prognosis. Recommend holding sedatin g medications, including transdermal fentanyl patch. Agree with Lantus and sliding scale insulin coverage. 6. CODE STATUS I did discuss this with the patient's family at the bedside. They have again confirmed that the patient is in fact a DNR CCA without plans for intubation. They also indicated to me that if the patient does not improve clinically over the next 24-48 hours with antibiotics, that they would then consider potential referral to hospice with subsequent implementation of comfort care measures. This note was generated with [employer]ung[employer] dictation software. It may contain incorrect words, spelling, and punctuation that were not noted in checking the note before signing. Code Visit Inpatient E&M: 88786 Init Hosp L3
--- NOTE | 2018-10-04 10:25 | RAD_ITS ---
STUDY: X-RAY CHEST REASON FOR EXAM: Female, 68 years old. PICC line placement. TECHNIQUE: Single AP portable view of the chest. COMPARISON: Comparison is made with prior examination dated October 04, 2018 at 7:21 AM. FINDINGS: A right-sided PICC line catheter is in situ. The tip is at the junction of the superior vena cava and right. This is unchanged. EKG electrodes are seen as well. Stable appearance of the atelectasis and/or infiltrate in the right lower lobe with a blunting of the right costophrenic angle. Stable changes of left lung base as well. Sternal cerclage wires and vascular clips are present from a prior sternotomy and coronary artery bypass graft procedure (CABG). Normal mediastinum and cristofer. Normal visualized pulmonary arteries. There is atherosclerotic calcification of the aortic arch with tortuosity. Normal visualized thoracic spine. Calcific tendinitis of the right shoulder joint. Degenerative changes of the left shoulder joint. There is no demonstrated abnormality of the visualized soft tissue structures of the upper abdomen. RAD/CXR for Line Placement IMPRESSION: Stable examination. The PICC line catheter is unchanged. Electronically Signed: Mack Browne MD at 10:57 EST Tel [phone], Service support ,
--- NOTE | 2018-10-04 11:00 | PCM.RX.CS ---
Consult Pharmacy has been consulted to manage selected antiobiotic: Vancomycin Type of Consult: New start Suspected Infection: Other Prior Doses of Antibiotics Received/Current Regimen: Received 1500mg IV x1 in E.R. today at 08:41 Labs: Sodium 144 mmol/L (136-145) 10/04/18 06:50 Potassium 4.6 mmol/L (3.5-5.1) 10/04/18 06:50 Chloride 108 mmol/L (98-107) H 10/04/18 06:50 Carbon Dioxide 29.0 mmol/L (21.0-32.0) 10/04/18 06:50 Anion Gap 7 (5-15) 10/04/18 06:50 BUN 46 mg/dL (7-18) H 10/04/18 06:50 Creatinine 0.51 mg/dL (0.55-1.02) L 10/04/18 06:50 Est GFR (MDRD) Af Amer 153 mL/min (>60) 10/04/18 06:50 Est GFR (MDRD) Non-Af 127 mL/min (>60) 10/04/18 06:50 BUN/Creatinine Ratio 90.0 RATIO (10-20) H 10/04/18 06:50 Glucose 159 mg/dL (74-106) H 10/04/18 06:50 Microbiology: Microbiology 10/04/18 08:50 Mucosa - Nose Influenza Types A,B Direct FA (YANCY) - Final 10/04/18 08:35 Urine Catheter - Catheter Legionella Antigen - Final 10/04/18 08:35 Urine Catheter - Catheter Streptococcus pneumoniae Antigen (M - Final Weight used for dosin kg Estimated Creatinine Clearance: 44 ml/min Goal Trough: 15-20 mcg/mL Pharmacy Plan for Drug Dosing: Plan is to continue with 500mg IV q12h to start 12 hours after the dose given in E.R. Obtain a trough before the 4th total dose. Pharmacy Service will continue to monitor and adjust dosing as required. Follow-Up Labs: Trough Vancomycin Labs to be done on [date and time ordered]: 10/05/18 20:30
--- NOTE | 2018-10-04 11:03 | NURSING ---
Hx of [id number]- Strict Contact Precautions through entirety of stay.
--- NOTE | 2018-10-04 11:27 | CASEMGMT ---
Addendum entered by Rut Macdonald 10/04/18 14:27: SW called Dilcia at [facility] and let her know the plan. Rut SAUCEDO PROTOTYPE MACHINIST Original Note: Patient is from [facility]. Per Dr Barnes the plan is to see if patient improves in 24 hours and if not Hospice may be consulted. Rut SAUCEDO MSW
[2018-10-04 11:41] LABS: Bedside Glucose 133 mg/dL (70-110)
--- NOTE | 2018-10-04 13:00 | NURSING ---
pt remains on continuous bipap, pulse ox mainting 99-100%. Pt is very drowsy, she will awaken to her name but falls back to sleep quickly. pt unable to comprehend teaching at this time. will monitor. vss. SR on tele. safety precautions maintained.
[2018-10-04] MEDS: Ipratropium/Albuterol Sulfate 3 ML AMPUL.NEB INHALATION ×2 (13:42→18:46)
--- NOTE | 2018-10-04 14:07 | NURSING ---
wound photo: sacrum
--- NOTE | 2018-10-04 14:08 | NURSING ---
wound photo: left lower leg
--- NOTE | 2018-10-04 14:09 | NURSING ---
wound photo: Left lower leg
--- NOTE | 2018-10-04 14:10 | NURSING ---
wound photo: sternum
--- NOTE | 2018-10-04 14:11 | NURSING ---
wound photo: left posterior lower leg
--- NOTE | 2018-10-04 14:12 | NURSING ---
wound photo: left hand and wrist
--- NOTE | 2018-10-04 15:39 | PCM.RX.CS ---
Consult Pharmacy has been consulted to manage selected antiobiotic: Tobramycin Type of Consult: New start Suspected Infection: Other Labs: Sodium 144 mmol/L (136-145) 10/04/18 06:50 Potassium 4.6 mmol/L (3.5-5.1) 10/04/18 06:50 Chloride 108 mmol/L (98-107) H 10/04/18 06:50 Carbon Dioxide 29.0 mmol/L (21.0-32.0) 10/04/18 06:50 Anion Gap 7 (5-15) 10/04/18 06:50 BUN 46 mg/dL (7-18) H 10/04/18 06:50 Creatinine 0.51 mg/dL (0.55-1.02) L 10/04/18 06:50 Est GFR (MDRD) Af Amer 153 mL/min (>60) 10/04/18 06:50 Est GFR (MDRD) Non-Af 127 mL/min (>60) 10/04/18 06:50 BUN/Creatinine Ratio 90.0 RATIO (10-20) H 10/04/18 06:50 Glucose 159 mg/dL (74-106) H 10/04/18 06:50 Microbiology: Microbiology 10/04/18 12:10 Wound - Sacral Gram Stain - Final 10/04/18 08:56 Mucosa - Nasopharyngeal Respiratory Panel (PCR) - Final 10/04/18 08:50 Mucosa - Nose Influenza Types A,B Direct FA (YANCY) - Final 10/04/18 08:35 Urine Catheter - Catheter Legionella Antigen - Final 10/04/18 08:35 Urine Catheter - Catheter Streptococcus pneumoniae Antigen (M - Final Weight used for dosin.4 kg - IDEAL BODY WEIGHT Estimated Creatinine Clearance: 44 ML/MIN Goal Trough: Other - UNDETECTABLE LEVEL DESIRED Pharmacy Plan for Drug Dosing: Tobramycin initially dosed at the once daily 5 mg/kg (using ideal body weight of 52.4kg) IV q24h. A trough will be obtained 30 minutes prior to the 2nd dose tomorrow. An undetectable level is desired so that dosing can proceed at q24h. Pharmacy Service will continue to monitor and adjust dosing as required. Follow-Up Labs: Trough Tobramycin - ONCE DAILY TROUGH Labs to be done on [date and time ordered]: 10/05/18 at 11:00 before the dose at 11:30
--- NOTE | 2018-10-04 15:41 | NURSING ---
Addendum entered by Magi Grant 10/04/18 16:33: pt is also much more awake and alert, sitting up in the bed, talking to her family. she answers questions appropriately. she denies any shortness of breath or pain. Original Note: Pt transferred onto a [facility] specialty mattress per wound care recommendations. Pt also taken off of bipap and placed on 3L NC, pulse ox has maintained at 100% for 10 minutes so far. will monitor.
[2018-10-04 16:15] LABS: Bedside Glucose 137 mg/dL (70-110)
[2018-10-04] MEDS: Amiodarone 200 MG Tablet 400 MG PO (16:39)
[2018-10-04] MEDS: Ascorbic Acid 500 MG Tablet PO (16:40)
[2018-10-04] MEDS: Famotidine 20 MG Tablet PO (16:40)
[2018-10-04] MEDS: 0.9% Normal Saline 1,000 ML 100 ML IV (19:44)
[2018-10-04] MEDS: Vancomycin IV 500 MG/100 ML BAG 100 MG IV (21:08)
[2018-10-04] MEDS: Insulin Lispro 100 UNIT/ML INSULN.PEN SC (21:34)
[2018-10-04] MEDS: Megestrol Acetate 400 MG/10 ML UDC PO (21:35)
[2018-10-04] MEDS: Iron Polysaccharide Complex 150 MG CAPSULE PO (21:35)
[2018-10-04] MEDS: Carvedilol 12.5 MG Tablet PO (21:35)
[2018-10-04] MEDS: MELATONIN 3 MG TABLET PO (21:35)
[2018-10-04] MEDS: Mirtazapine 15 MG Tablet 7.5 MG PO (21:35)
[2018-10-04] MEDS: guaiFENesin 1,200 MG Tablet 1200 MG PO (21:35)
[2018-10-04 21:56] LABS: Bedside Glucose 206 mg/dL (70-110)
[2018-10-05] VITALS (17 sets, daily range): BP systolic 92–122; BP diastolic 52–64; PULSE 64–83; RESP 12–18; TEMP 36.6–36.9; O2SAT 94–99
[2018-10-05] MEDS: Ipratropium/Albuterol Sulfate 3 ML AMPUL.NEB INHALATION ×4 (00:41→19:16)
[2018-10-05] MEDS: Piperacil/Tazobactam 3.375 GM/50 ML ML IV ×3 (05:04→21:43)
[2018-10-05 05:28] LABS: International Normalized Ratio 2.4; Prothrombin Time (Protime)PT. 26.5 SECONDS (11.7-14.9)
[2018-10-05 05:29] LABS: Anion Gap 6 (5-15); BUN 48 mg/dL (7-18); BUN/Creat Ratio 99.4 RATIO (10-20); Calcium,Total 8.5 mg/dL (8.5-10.1); Chloride 110 mmol/L (98-107); Creatinine, Serum 0.48 mg/dL (0.55-1.02); EST Glomerular Filtration Rate 135 mL/min (>60); Est Glom Filt Rate - Afr Amer 164 mL/min (>60); Estimated Creatinine Clearance 43.92 ml/min; Glucose 119 mg/dL (74-106); Magnesium 1.7 mg/dL (1.6-2.6); Potassium 4.3 mmol/L (3.5-5.1); Sodium Level 144 mmol/L (136-145)
--- NOTE | 2018-10-05 06:06 | PN_ITS ---
Subjective: The patient was seen and examined at the bedside this morning. Events from the last 24 hours have been reviewed. The patient is currently afebrile, hemodynamically stable and maintaining appropriate oxygen saturations on 2 L/min via nasal cannula. The patient did tolerate BiPAP overnight. She is more alert and interactive as compared to previous. Objective: The patient's most recent lab work, culture data and imaging studies have all been personally reviewed. VRE was identified for the patient's blood culture da medardo October 04. Urine culture is currently pending. Strep and urine Legionella antigens were both negative. Respiratory viral panel was negative. Wound culture is currently pending. - Physical Exam General: Alert, Cooperative, No apparent distress HEENT: Atraumatic, PERRLA, Normocephalic Oral: No Gingival or Mucosal Lesions/ Ulcerations Neck: Supple, No Nodes, Trachea Midline Lungs: No rhonchi, No wheeze, No rales, Diminished Cardiovascular: Regular rate, Regular Rhythm, Normal S1, Normal S2, No murmurs Abdomen: Bowel Sounds Present, Soft, Non Tender, Obese Extremities: No clubbing, No cyanosis, No edema Skin: - - No significant change from previous. Wounds are currently wrapped/dressed. Musculoskeletal: No Muscle Wasting Lymphatic: No Cervical, Supraclavicular, or Inguinal Adenopathy Neurological: Neuro grossly intact Psych/Mental Status: Normal Affect, Appropriate Vital Signs Temp Pulse Resp BP Pulse Ox 36.9 C 65 18 92/52 L 96 10/05/18 02:13 10/05/18 03:26 10/05/18 03:09 10/05/18 02:13 10/05/18 03:09 Oxygen Flow Rate (L/min) 2 Oxygen Delivery Method Bi-pap Weight: 182 lb 15.739 oz Body Mass Index (BMI) 32.4 Finger Stick Blood Glucose 165 Intake and Output for Last 24 Hours 10/03/18 10/04/18 10/05/18 23:59 23:59 23:59 Intake Total 1920 / 1920 2104.7 / 2104.7 Output Total 275 / 275 400 / 400 Balance 1645 / 1645 1704.7 / 1704.7 Microbiology Past 72 Hours 10/04/18 07:10 Bacteria Detection (PCR) - Preliminary Blood Culture (Wb) - Central Line Enterococcus faecium Monika/vanB Resistance Marker Blood Culture - Preliminary 10/04/18 12:10 Gram Stain - Final Wound - Sacral 10/04/18 08:56 Respiratory Panel (PCR) - Final Mucosa - Nasopharyngeal 10/04/18 08:50 Influenza Types A,B Direct FA (YANCY) - Final Mucosa - Nose 10/04/18 08:35 Legionella Antigen - Final Urine Catheter - Catheter 10/04/18 08:35 Streptococcus pneumoniae Antigen (M - Final Urine Catheter - Catheter Laboratory Tests Past 24 Hrs 10/04/18 10/04/18 10/04/18 06:50 06:50 06:50 WBC 6.0 RBC 2.93 L Hgb 9.2 L Hct 29.9 L MCV 102.0 H MCH 31.4 MCHC 30.8 L RDW 15.6 H RDW Differential 58.1 H Plt Count 210 MPV 8.6 Immature Gran % (Auto) 0.300 Neut % (Auto) 74.1 H Lymph % (Auto) 13.6 L [place] % (Auto) 10.6 H Eos % (Auto) 1.2 Baso % (Auto) 0.2 Absolute Neuts (auto) 4.4 Absolute Lymphs (auto) 0.81 L Total Counted Not Reportable PT 21.5 H INR 1.9 APTT 48.8 H Specimen Type Sample Site pH Bicarbonate Actual POC Total CO2 Base Excess O2 Saturation ABG pCO2 ABG pO2 O2 Delivery Device Liter Flow Blood Gas Notified Whom Blood Gas Notified Time Sodium 144 Potassium 4.6 Chloride 108 H Carbon Dioxide 29.0 Anion Gap 7 BUN 46 H Creatinine 0.51 L Estim Creat Clear Calc 43.92 Est GFR (MDRD) Af Amer 153 Est GFR (MDRD) Non-Af 127 BUN/Creatinine Ratio 90.0 H Glucose 159 H Lactic Acid Calcium 9.1 Magnesium Total Bilirubin 0.30 AST 8 L ALT 13 Alkaline Phosphatase 245 H Troponin I 0.033 Total Protein 5.9 L Albumin 2.0 L Globulin 3.9 Albumin/Globulin Ratio 0.5 L Urine Color Urine Clarity Urine pH Ur Specific [place] Urine Protein Urine Glucose (UA) Urine Ketones Urine Occult Blood Urine Nitrite Urine Bilirubin Urine Urobilinogen Ur Leukocyte Esterase Urine RBC Urine WBC Ur Squamous Epith Cells Urine Bacteria Urine Mucus 10/04/18 10/04/18 10/04/18 07:10 07:40 08:05 WBC RBC Hgb Hct MCV MCH MCHC RDW RDW Differential Plt Count MPV Immature Gran % (Auto) Neut % (Auto) Lymph % (Auto) [place] % (Auto) Eos % (Auto) Baso % (Auto) Absolute Neuts (auto) Absolute Lymphs (auto) Total Counted PT INR APTT Specimen Type ART Sample Site R Radial pH 7.25 L Bicarbonate Actual 30.1 H POC Total CO2 32 Base Excess 3 H O2 Saturation 94 L ABG pCO2 68.4 H* ABG pO2 85 O2 Delivery Device Nasal Can Liter Flow 6.0 Blood Gas Notified Whom ED MD Blood Gas Notified Time 739 Sodium Potassium Chloride Carbon Dioxide Anion Gap BUN Creatinine Estim Creat Clear Calc Est GFR (MDRD) Af Amer Est GFR (MDRD) Non-Af BUN/Creatinine Ratio Glucose Lactic Acid 0.3 L Calcium Magnesium Total Bilirubin AST ALT Alkaline Phosphatase Troponin I Total Protein Albumin Globulin Albumin/Globulin Ratio Urine Color Yellow Urine Clarity Sl. Cloudy Urine pH 6.0 Ur Specific [place] 1.015 Urine Protein 30 H Urine Glucose (UA) Normal Urine Ketones Negative Urine Occult Blood 150 H Urine Nitrite Negative Urine Bilirubin Negative Urine Urobilinogen Normal Ur Leukocyte Esterase 500 H Urine RBC 10-25 SEEN Urine WBC 25-50 SEEN Ur Squamous Epith Cells 0-5 SEEN Urine Bacteria 1+ Urine Mucus 0 SEEN 10/05/18 10/05/18 05:00 05:00 WBC RBC Hgb Hct MCV MCH MCHC RDW RDW Differential Plt Count MPV Immature Gran % (Auto) Neut % (Auto) Lymph % (Auto) [place] % (Auto) Eos % (Auto) Baso % (Auto) Absolute Neuts (auto) Absolute Lymphs (auto) Total Counted PT 26.5 H INR 2.4 APTT Specimen Type Sample Site pH Bicarbonate Actual POC Total CO2 Base Excess O2 Saturation ABG pCO2 ABG pO2 O2 Delivery Device Liter Flow Blood Gas Notified Whom Blood Gas Notified Time Sodium 144 Potassium 4.3 Chloride 110 H Carbon Dioxide 28.0 Anion Gap 6 BUN 48 H Creatinine 0.48 L Estim Creat Clear Calc 43.92 Est GFR (MDRD) Af Amer 164 Est GFR (MDRD) Non-Af 135 BUN/Creatinine Ratio 99.4 H Glucose 119 H Lactic Acid Calcium 8.5 Magnesium 1.7 Total Bilirubin AST ALT Alkaline Phosphatase Troponin I Total Protein Albumin Globulin Albumin/Globulin Ratio Urine Color Urine Clarity Urine pH Ur Specific [place] Urine Protein Urine Glucose (UA) Urine Ketones Urine Occult Blood Urine Nitrite Urine Bilirubin Urine Urobilinogen Ur Leukocyte Esterase Urine RBC Urine WBC Ur Squamous Epith Cells Urine Bacteria Urine Mucus POC Glucose 10/04/18 10/04/18 10/04/18 21:33 16:08 11:17 POC Glucose 206 H 137 H 133 H 10/04/18 06:55 POC Glucose 165 H Clinical Impression(s) from Imaging Studies Chest X-Ray 10/04/18 07:10 IMPRESSION: Platelike atelectatic changes in the right lung base and a small right-sided pleural effusion. Electronically Signed: Johan Garcia MD at 7:42 EST Tel , Service support , Chest X-Ray 10/04/18 10:25 IMPRESSION: Stable examination. The PICC line catheter is unchanged. Electronically Signed: Mack Browne MD at 10:57 EST Tel [phone], Service support , Medical Necessity - Tobacco Use Smoking Status: Former smoker Assessment/Plan All Active Problems (Last Reviewed 05/04/18 @ 02:22 by Lorne Holder MD) Sepsis associated hypotension (Acute) UTI (urinary tract infection) (Acute) Open wound of left thigh (Acute) Open wound of left lower extremity (Acute) Skin necrosis (Acute) Hematoma (Resolved) Cellulitis of right foot (Resolved) Abscess of toe of right foot (Acute) Infectious arthritis (Acute) Hypoxia (Acute) Suspected sleep apnea (Acute) RECOMMENDATIONS: 1. Continue PAP therapy with naps and nightly. 2. Recommend continuation of antibiotics under the discretion of infectious diseases. 3. Wean supplemental oxygen as tolerated. Encourage incentive spirometer use. 4. Avoid sedating medications. 5. Continue scheduled bronchodilators. 6. Discontinue supplemental IV fluids. IMPRESSIONS: 1. Acute hypoxemic and hypercarbic respiratory failure While the patient does have known mild COPD, obstructive sleep apnea and possible obesity hypoventilation, she was not previously known by me to require supplemental oxygen. However, the patient's family reported to me this morning, that she has been utilizing supplemental oxygen in the [facility] facility on a continuous basis. The patient's plain film chest x-ray did not reveal findings concerning for an acute infectious process. Hypoxia and CO2 retention may have been the consequence of increased metabolic demands in the setting of #2. This has since improved with noninvasive positive pressure ventilation and by addressing the patient's underlying infectious processes. 2. Sepsis with sources that include urinary tract and necrotic soft tissue ulcers The patient has been placed on broad-spectrum antibiotics. She is currently hemodynamically stable. She does have a positive blood culture for VRE. I would strongly recommend discussing antimicrobial coverage with infectious diseases at this time. Continue supplemental IV fluids can be discontinued. 3. Metabolic encephalopathy Improved. Likely secondary to underlying infectious processes along with relative state of hypercarbia on presentation. The patient has responded to noninvasive positive pressure ventilation and antibiotics accordingly. Would plan to continue to hold sedating medications. 4. Personal history of mild obstructive lung disease and obstructive sleep apnea Continue scheduled bronchodilators and noninvasive positive pressure ventilation as noted above. 5. Coronary artery disease status post CABG/obesity/neuropathy/chronic pain syndrome/diabetes mellitus/chronic anticoagulation Complicates care, management, recovery and prognosis. Recommend holding sedating medications, including transdermal fentanyl patch. Agree with Lantus and sliding scale insulin coverage. 6. CODE STATUS I did discuss this with the patient's family at the bedside. They have again confirmed that the patient is in fact a DNR CCA without plans for intubation. They also indicated to me that if the patient does not improve clinically over the next 24-48 hours with antibiotics, that they would then consider potential referral to hospice with subsequent implementation of comfort care measures. This note was generated with [employer] dictation software. It may contain incorrect words, spelling, and punctuation that were not noted in checking the note before signing. Code Visit Inpatient E&M: 64755 Subs Hosp L2
[2018-10-05] MEDS: 0.9% Normal Saline 1,000 ML 100 ML IV ×2 (06:26→21:44)
[2018-10-05 07:00] LABS: Bedside Glucose 101 mg/dL (70-110)
[2018-10-05] MEDS: Vancomycin IV 500 MG/100 ML BAG 100 MG IV (09:12)
[2018-10-05] MEDS: Polyethylene Glycol 3350 17 GM PACKET PO (09:30)
[2018-10-05] MEDS: Amiodarone 200 MG Tablet 400 MG PO (09:32)
[2018-10-05] MEDS: Multivitamins,Therapeutic Tablet 1 TABLET PO (09:32)
[2018-10-05] MEDS: guaiFENesin 1,200 MG Tablet 1200 MG PO ×2 (09:32→21:39)
[2018-10-05] MEDS: Famotidine 20 MG Tablet PO (09:32)
[2018-10-05] MEDS: Megestrol Acetate 400 MG/10 ML UDC PO ×2 (09:32→21:40)
[2018-10-05] MEDS: Iron Polysaccharide Complex 150 MG CAPSULE PO ×2 (09:32→21:40)
[2018-10-05] MEDS: Folic Acid 1 MG Tablet PO (09:32)
[2018-10-05] MEDS: Docusate Sodium 100 MG Capsule PO (09:32)
[2018-10-05] MEDS: Carvedilol 12.5 MG Tablet PO ×2 (09:32→21:40)
[2018-10-05] MEDS: Ascorbic Acid 500 MG Tablet PO ×2 (09:33→18:18)
--- NOTE | 2018-10-05 10:02 | CASEMGMT ---
SW spoke w/physician, if pt does not need hospice referral, will still be here through the weekend. RACHEL Boles, LACQUERER
--- NOTE | 2018-10-05 11:00 | CON.PCM_ITS ---
Problem List (1) Sepsis Status: Acute Reason for Consult: sepsis Consulted by: Dr. Landrum History of Present Illness: The patient is a 68 year old F who presented from [facility] with several days of lethargy, not feeling well. She had prolonged hospital stay, starting in [place] around January with R heel osteo, then transfer to [place] for CABG, complicated by LLE vein donor site infection, then complicated by sacral osteo. 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 That ostomy-associated infection was also infected for a period of time. Throughout this 7-8 month-long course she has had XDR bacteria including CRE klebsiella, AcB, and VRE. Was treated with vabomere, minocycline, and linezolid as well as many other abx. Had some thrombocytopenia with linezolid. Ultimately given lack of improvement and limited other surgical options, pt was discharged from [facility] to [facility] closer to family in [place] area, to take 2 more weeks of minocycline and augmentin. Per family, wounds have shown slow improvement and overall has been doing well. Now admitted to [place], started on vanc/tobra/zosyn, remains lethargic and unable to answer questions. ROS unobtainable. Fever over 101 here. Family reports picc remains in place from previous hospital stay. 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 on 02/15[facility], team contact SOUMYA Rhodes. Acute deep vein thrombosis (DVT) of left upper extremity (Chronic) Recent LUE DVT while at [facility] s/p CABG. On therapeutic lovenox/coumadin bridge awaiting INR to be therapeutic. Acute anemia (Chronic) Post-operatively Hgb decrease, s/p 2 u PRBC. Decubitus ulcer (Chronic) ESBL Coccyx Decubitous Ulcer Stage IV s/p I+D with VAC placement. Continued on Meropenem regimen per ID recommendation x 6 weeks additional to concurrently treat R Foot Osteomyelitis. Foot osteomyelitis, right (Chronic) Recent R Foot Osteomyelitis, maintained on meropenem and voriconazole for planned addition 6 weeks of treatment per Dr. Palmer direction. Pain in right toe(s) (Chronic) Type 2 diabetes mellitus (Chronic) Obesity (BMI 30.0-34.9) (Chronic) HERNANDEZ (dyspnea on exertion) (Chronic) ELDER (obstructive sleep apnea) (Chronic) COPD (chronic obstructive pulmonary disease) (Chronic) Neuropathic pain (Chronic) Allergic rhinitis (Chronic) Asthma (Chronic) Acute kidney injury (Chronic) Mild asthma (Chronic) Osteoarthritis (Chronic) Hyperlipidemia (Chronic) Hypertension (Chronic) Type 2 diabetes mellitus (Chronic) Allergies/Adverse Reactions: Allergies lisinopril Adverse Reaction (Verified 10/04/18 08:46) Other metronidazole Adverse Reaction (Verified 10/04/18 08:46) Other Home Medications: Ambulatory Orders Medication Instructions Recorded gabapentin 300 mg capsule 600 mg PO TID cap 08/23/17 Ascorbic Acid [Vitamin C] 500 mg PO BIDCM 03/04/18 Carvedilol [Coreg] 12.5 mg PO BID 03/04/18 Folic Acid 1 mg PO DAILY@0800 03/04/18 Iron Polysaccharide Complex 150 mg PO BID 03/04/18 [Ferrex 150] Melatonin 3 mg PO QHS 03/04/18 Bisacodyl 10 mg RC PRN PRN 05/03/18 Glipizide [Glucotrol] 20 mg PO DAILY 05/03/18 Insulin Lispro [Humalog KwikPen] See Protocol SC ACHS 05/03/18 Megestrol Acetate 10 ml PO BID 05/03/18 Mirtazapine 7.5 mg PO QHS 05/03/18 Nutritional Supplement [Radames - 1 packet PO BIDCM 05/03/18 ORANGE FLAVOR] Warfarin Sodium [Coumadin] 3 mg PO DAILY 05/03/18 Amiodarone HCl 400 mg PO DAILY 10/04/18 Dextrose [Glucose Gel] 37.5 gm PO PRN PRN 10/04/18 Docusate Sodium [Colace] 100 mg PO BID 10/04/18 Fentanyl 1 each TD QODAY 10/04/18 Gluc Cerda/Chondro Cerda A/Vit C/Mn 3 each PO DAILY 10/04/18 [Glucosamine Chondroitin Tab] Glucagon,Human Recombinant 1 mg IJ PRN PRN 10/04/18 [Glucagen] Insulin Glargine,Hum.rec.anlog 10 unit SQ DAILY 10/04/18 [Lantus] Insulin Glargine,Hum.rec.anlog 25 unit SQ QHS 10/04/18 [Lantus] Ipratropium/Albuterol Sulfate 3 ml IH Q2H PRN PRN 10/04/18 [Iprat-Albut 0.5-3(2.5) mg/3 ml] Magnesium Hydroxide [Milk of 30 ml PO DAILY PRN PRN 10/04/18 Magnesia] Mineral Oil 133 ml RC DAILY PRN PRN 10/04/18 Multivitamin [Once Daily] 1 each PO DAILY 10/04/18 Oxycodone HCl/Acetaminophen 2 tablet PO Q4H PRN PRN 10/04/18 [Percocet 5/325] Polyethylene Glycol 1450 17 gm PO DAILY 10/04/18 Zinc Sulfate 220 mg PO DAILY 10/04/18 - Social History SMOKING STATUS:: Former smoker Vital Signs Temp Pulse Resp BP Pulse Ox 98 F 70 16 105/55 L 98 10/05/18 09:17 10/05/18 09:17 10/05/18 09:17 10/05/18 09:17 10/05/18 09:17 Oxygen Flow Rate (L/min) 2 Oxygen Delivery Method Nasal Cannula Weight: 83 kg Body Mass Index (BMI) 32.4 Finger Stick Blood Glucose 165 Microbiology Past 72 Hours 10/04/18 07:10 Bacteria Detection (PCR) - Final Blood Culture (Wb) - Central Line Enterococcus faecium Monika/vanB Resistance Marker Blood Culture - Preliminary Enterococcus faecium 10/04/18 12:10 Gram Stain - Final Wound - Sacral 10/04/18 08:56 Respiratory Panel (PCR) - Final Mucosa - Nasopharyngeal 10/04/18 08:50 Influenza Types A,B Direct FA (YANCY) - Final Mucosa - Nose 10/04/18 08:35 Legionella Antigen - Final Urine Catheter - Catheter 10/04/18 08:35 Streptococcus pneumoniae Antigen (M - Final Urine Catheter - Catheter Laboratory Tests Past 24 Hrs 10/05/18 10/05/18 05:00 05:00 PT 26.5 H INR 2.4 Sodium 144 Potassium 4.3 Chloride 110 H Carbon Dioxide 28.0 Anion Gap 6 BUN 48 H Creatinine 0.48 L Estim Creat Clear Calc 43.92 Est GFR (MDRD) Af Amer 164 Est GFR (MDRD) Non-Af 135 BUN/Creatinine Ratio 99.4 H Glucose 119 H Calcium 8.5 Magnesium 1.7 - Other Studies Radiology: [] reviewed Other Studies: [] Route of nutrition/ use of supplements: [] Nutritional Intake: [] IV Site: [] Allen Catheter: [] - Physical Exam General: Lethargic HEENT: Atraumatic, PERRLA, EOMI Neck: Supple, No Nodes Lungs: Clear to auscultation, Normal air movement, Diminished Cardiovascular: No murmurs, Tachycardic Abdomen: Soft, Non Tender, Non-Distended Extremities: Edema Skin: Ulcer/ Wound - reviewed photos, sacral ulcer is largest, does show overall improvement IV Site: PICC, without redness Musculoskeletal: No Tenderness to Palpation of Joints or Extremities Neurological: Cranial nerves II-XII grossly intact - Assessment/Plan Antibiotics: [] Assessment/Plan: [] sepsis with h/o prolonged hospital stay recently for XDR sacral osteo and abd fistula which was surgically repaired and ostomy placed - worsening at [facility] does correlate with her completing her course of minocycline and augmentin, but sacral wound overall improved. CXR relatively clear, UA with some inflammation. Primary concern would be for deeper intra-abd or pelvic infection, new urinary infection, or line infection related to picc having been left in place for what appears to be a very extended period of time. Vanc/tobra/zosyn are reasonable at this time. Thank you, will follow, d/w her family at bedside.
--- NOTE | 2018-10-05 11:06 | PCM.PN.ID ---
Patient Problems: Active and Suspected Problems (Last Reviewed 05/04/18 @ 02:22 by Lorne Holder MD) Sepsis (Acute) - Physical Exam Vital Signs Temp Pulse Resp BP Pulse Ox 98 F 70 16 105/55 L 98 10/05/18 09:17 10/05/18 09:17 10/05/18 09:17 10/05/18 09:17 10/05/18 09:17 Oxygen Flow Rate (L/min) 2 Oxygen Delivery Method Nasal Cannula Weight: 83 kg Body Mass Index (BMI) 32.4 Finger Stick Blood Glucose 165 Intake and Output for Last 24 Hours 10/03/18 10/04/18 10/05/18 23:59 23:59 23:59 Intake Total 1920 / 1920 2104.7 / 2104.7 Output Total 275 / 275 400 / 400 Balance 1645 / 1645 1704.7 / 1704.7 Microbiology Past 72 Hours 10/04/18 07:10 Bacteria Detection (PCR) - Final Blood Culture (Wb) - Central Line Enterococcus faecium Monika/vanB Resistance Marker Blood Culture - Preliminary Enterococcus faecium 10/04/18 12:10 Gram Stain - Final Wound - Sacral 10/04/18 08:56 Respiratory Panel (PCR) - Final Mucosa - Nasopharyngeal 10/04/18 08:50 Influenza Types A,B Direct FA (YANCY) - Final Mucosa - Nose 10/04/18 08:35 Legionella Antigen - Final Urine Catheter - Catheter 10/04/18 08:35 Streptococcus pneumoniae Antigen (M - Final Urine Catheter - Catheter Laboratory Tests Past 24 Hrs 10/05/18 10/05/18 05:00 05:00 PT 26.5 H INR 2.4 Sodium 144 Potassium 4.3 Chloride 110 H Carbon Dioxide 28.0 Anion Gap 6 BUN 48 H Creatinine 0.48 L Estim Creat Clear Calc 43.92 Est GFR (MDRD) Af Amer 164 Est GFR (MDRD) Non-Af 135 BUN/Creatinine Ratio 99.4 H Glucose 119 H Calcium 8.5 Magnesium 1.7 POC Glucose 10/05/18 10/04/18 10/04/18 06:53 21:33 16:08 POC Glucose 101 206 H 137 H 10/04/18 11:17 POC Glucose 133 H Medical Necessity - Tobacco Use Smoking Status: Former smoker Route of nutrition/ use of supplements: [] Nutritional Intake: [] IV Site: [] Allen Catheter: [] - Assessment/Plan Antibiotics: [] Assessment/Plan: [] Reviewed cx data which shows VRE in Bcx. Will stop vanc and tobra. Start dapto at 8mg/kg. Check CK with AM labs. Will order picc removal if peripheral access can be obtained, send tip for cx and check repeat bcx. If family wishes to continue aggressive care over the next few days, would also recommend ERNESTO and abd/pelvic CT w/wo contrast. D/w nursing.
[2018-10-05 11:36] LABS: Bedside Glucose 198 mg/dL (70-110)
[2018-10-05 11:42] LABS: Tobramycin Once Daily Trough 1.4 ug/mL (<1.0)
[2018-10-05] MEDS: Insulin Lispro 100 UNIT/ML INSULN.PEN SC ×3 (12:06→21:41)
--- NOTE | 2018-10-05 12:19 | PN_ITS ---
<Galina Balderas - Last Filed: 10/05/18 12:40> Patient Problems: Active and Suspected Problems (Last Reviewed 05/04/18 @ 02:22 by Lorne Holder MD) Sepsis (Acute) Subjective: Patient seen and examined. More alert. Denies current complaints. Family at bedside. - Physical Exam General: Alert, Oriented x3, Cooperative HEENT: Atraumatic, PERRLA, EOMI, Normocephalic Neck: Supple, No JVD, Negative Carotid Bruits Lungs: Clear to auscultation, Diminished Cardiovascular: Regular rate, Regular Rhythm, Normal S1, Normal S2, No murmurs Abdomen: Bowel Sounds Present, Soft, Non Tender, Non-Distended, Obese Extremities: No clubbing, No cyanosis, No edema, Capillary Refill Less than 3 Seconds Skin: - - Chronic sacral ulcer, dressing intact. Left lower extremity dressings clean dry and intact. Left hand and wrist skin tears. Musculoskeletal: No Tenderness to Palpation of Joints or Extremities Neurological: Cranial nerves II-XII grossly intact, Neuro grossly intact Psych/Mental Status: Normal Affect, Appropriate Vital Signs Temp Pulse Resp BP Pulse Ox 98 F 70 16 105/55 L 98 10/05/18 09:17 10/05/18 09:17 10/05/18 09:17 10/05/18 09:17 10/05/18 09:17 Oxygen Flow Rate (L/min) 2 Oxygen Delivery Method Nasal Cannula Weight: 182 lb 15.739 oz Body Mass Index (BMI) 32.4 Finger Stick Blood Glucose 165 Intake and Output for Last 24 Hours 10/03/18 10/04/18 10/05/18 23:59 23:59 23:59 Intake Total 1920 / 1920 3340.7 / 3340.7 Output Total 275 / 275 400 / 400 Balance 1645 / 1645 2940.7 / 2940.7 Microbiology Past 72 Hours 10/04/18 07:10 Bacteria Detection (PCR) - Final Blood Culture (Wb) - Central Line Enterococcus faecium Monika/vanB Resistance Marker Blood Culture - Preliminary Enterococcus faecium 10/04/18 12:10 Gram Stain - Final Wound - Sacral 10/04/18 08:56 Respiratory Panel (PCR) - Final Mucosa - Nasopharyngeal 10/04/18 08:50 Influenza Types A,B Direct FA (YANCY) - Final Mucosa - Nose 10/04/18 08:35 Legionella Antigen - Final Urine Catheter - Catheter 10/04/18 08:35 Streptococcus pneumoniae Antigen (M - Final Urine Catheter - Catheter Laboratory Tests Past 24 Hrs 10/05/18 10/05/18 10/05/18 05:00 05:00 11:00 PT 26.5 H INR 2.4 Sodium 144 Potassium 4.3 Chloride 110 H Carbon Dioxide 28.0 Anion Gap 6 BUN 48 H Creatinine 0.48 L Estim Creat Clear Calc 43.92 Est GFR (MDRD) Af Amer 164 Est GFR (MDRD) Non-Af 135 BUN/Creatinine Ratio 99.4 H Glucose 119 H Calcium 8.5 Magnesium 1.7 Tobramycin Trough 1.4 H* POC Glucose 10/05/18 10/05/18 10/04/18 11:15 06:53 21:33 POC Glucose 198 H 101 206 H 10/04/18 16:08 POC Glucose 137 H Medical Necessity - Tobacco Use Smoking Status: Former smoker Assessment/Plan All Active Problems (Last Reviewed 05/04/18 @ 02:22 by Lorne Holder MD) Sepsis (Acute) Sepsis associated hypotension (Acute) UTI (urinary tract infection) (Acute) Open wound of left thigh (Acute) Open wound of left lower extremity (Acute) Skin necrosis (Acute) Hematoma (Resolved) Cellulitis of right foot (Resolved) Abscess of toe of right foot (Acute) Infectious arthritis (Acute) Hypoxia (Acute) Suspected sleep apnea (Acute) 1. Acute sepsis secondary to enterococcus faecium/VRE bacteremia with suspected source UTI-ID following. Started on daptomycin 8 mg/kg and IV zosyn. . Follow labs. PICC line to be removed. Send PICC line tip for cultures and repeat blood cultures. ID recommending ERNESTO and abdomen/pelvic CT w/wo contrast if fam tim wishes to continue aggressive treatment. Wound and urine cultures pending. 2. Acute on chronic hypoxic and hypercarbic respiratory failure-patient has recently been using supplemental oxygen at [facility]. Chest x-ray unremarkable. Influenza a and respiratory panel negative. Suspect respiratory failure due to increased metabolic demands secondary to #1. Continue to treat underlying infectious process. Continue supplement oxygen to maintain O2 at or above 90%. Avoid sedating regimen. Albuterol DuoNeb aerosol. BiPAP nightly and with naps. Respiratory status complicated by obesity hypoventilation syndrome, chronic COPD, ELDER. 3. Acute metabolic encephalopathy secondary to #1/#2-improved. Continue treatment as noted above. 4. Chronic stage III coccyx decubital ulcer, present on admission-patient underwent debridement in the past followed by LTAC stay which she was discharge to SNF 09/09/18. Wound RN consult. Dressing changes per orders. Wound culture pending. 5. Acute on chronic recurrent UTI with chronic conroy-history of cultures positive for E. coli, Klebsiella, +ESBL. Urine culture pending. Continue antibiotics per #1. 6. Chronic iron deficiency anemia, anemia of chronic disease-Stable. Continue iron supplementation. 4. History of left upper extremity DVT, February 2018-continue Coumadin. 5. CAD status post three-vessel CABG-Continue Plavix, carvedilol, Coumadin. 6. Hypertension-stable, continue home regimen. 7. Hyperlipidemia-continue statin. 8. Type 2 diabetes mellitus-hold home oral regimen. Accu-Cheks before meals at bedtime with sliding scale insulin. 9. Diabetic neuropathy-continue home gabapentin regimen. 10. Chronic COPD/asthma-DuoNeb aerosols as needed. Continue home Singulair regimen. 11. Tobacco dependence-encourage smoking cessation. 12. Obstructive sleep apnea-continue BIPAP nightly. 13. GERD-continue PPI. DVT prophylaxis-coumadin This patient was seen by LUCIE Jim under the supervision of Dr. Landrum. <Scott Landrum - Last Filed: 10/05/18 14:42> - Physical Exam Vital Signs Temp Pulse Resp BP Pulse Ox 98 F 70 16 105/55 L 97 10/05/18 09:17 10/05/18 13:30 10/05/18 13:30 10/05/18 09:17 10/05/18 13:30 Oxygen Flow Rate (L/min) 2 Oxygen Delivery Method Nasal Cannula Weight: 83 kg Body Mass Index (BMI) 32.4 Finger Stick Blood Glucose 165 Intake and Output for Last 24 Hours 10/03/18 10/04/18 10/05/18 23:59 23:59 23:59 Intake Total 1920 / 1920 3340.7 / 3340.7 Output Total 275 / 275 400 / 400 Balance 1645 / 1645 2940.7 / 2940.7 Microbiology Past 72 Hours 10/04/18 12:10 Gram Stain - Final Wound - Sacral Wound Culture - Preliminary Mixed Gram Pos & Gram Neg Org 10/04/18 07:10 Bacteria Detection (PCR) - Final Blood Culture (Wb) - Central Line Enterococcus faecium Monika/vanB Resistance Marker Blood Culture - Preliminary Enterococcus faecium 10/04/18 08:56 Respiratory Panel (PCR) - Final Mucosa - Nasopharyngeal 10/04/18 08:50 Influenza Types A,B Direct FA (YANCY) - Final Mucosa - Nose 10/04/18 08:35 Legionella Antigen - Final Urine Catheter - Catheter 10/04/18 08:35 Streptococcus pneumoniae Antigen (M - Final Urine Catheter - Catheter Laboratory Tests Past 24 Hrs 10/05/18 10/05/18 10/05/18 05:00 05:00 11:00 PT 26.5 H INR 2.4 Sodium 144 Potassium 4.3 Chloride 110 H Carbon Dioxide 28.0 Anion Gap 6 BUN 48 H Creatinine 0.48 L Estim Creat Clear Calc 43.92 Est GFR (MDRD) Af Amer 164 Est GFR (MDRD) Non-Af 135 BUN/Creatinine Ratio 99.4 H Glucose 119 H Calcium 8.5 Magnesium 1.7 Tobramycin Trough 1.4 H* POC Glucose 10/05/18 10/05/18 10/04/18 11:15 06:53 21:33 POC Glucose 198 H 101 206 H 10/04/18 16:08 POC Glucose 137 H Assessment/Plan This patient was seen in conjunction with LUCIE Jim . I have independently interviewed and examined the patient and reviewed pertinent historical, laboratory, and other data. Please refer to LUCIE Jim note for details of this patient's presentation, findings, and recommendations. I have reviewed LUCIE Jim note and concur with documented findings. In brief, patient is a 68-year-old lady with multiple comorbidities admitted with decreased level of sensorium Physical Examination: GENERAL: Not in distress HEENT: Atraumatic; moist oral mucosa EYES; Anicteric, Normal Conjunctiva NECK; supple, normal thyroid, no distended JVD. RESPIRATORY: Diminished to auscultation bilaterally, CARDIOVASCULAR: Regular S1 S2, SKIN: Areas of sleeping wounds on both lower extremities as well as the lower part of her sternum at the site of her CABG incision Assessment: 1. Acute metabolic encephalopathy secondary to respiratory failure with hypercapnia patient placed on noninvasive ventilation BiPAP 2. Hypoxemic and hypercapnic respiratory failure possibly precipitated by sivakumar torres multiple psychotropic medications in the setting of COPD, obstructive sleep apnea and possible obesity hypoventilation, 3. Sepsis secondary to UTI due to the presence of Conroy catheter present on admission 4. Stage III coccyx decubitus ulcer: Consult placed to wound care nurse dressing changes 5. Anemia secondary to anemia of chronic disorder 6. DVT involving the left upper extremity diagnosed in February 2018 7. CAD with previous three-vessel CABG 8. Essential hypertension-blood pressure controlled 9. Dyslipidemia 10. 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 COPD 12. Obstructive sleep apnea 13. Obesity hypoventilation syndrome 14. GERD 15. DVT prophylaxis on Coumadin Recommendations: 1. I have discussed the results of my overview and impressions with the patient 2. Options for management were reviewed Microbiology 10/04/18 12:10 Gram Stain - Final Wound - Sacral Wound Culture - Preliminary Mixed Gram Pos & Gram Neg Org 10/04/18 07:10 Bacteria Detection (PCR) - Final Blood Culture (Wb) - Central Line Enterococcus faecium Monika/vanB Resistance Marker Blood Culture - Preliminary Enterococcus faecium 10/04/18 08:56 Respiratory Panel (PCR) - Final Mucosa - Nasopharyngeal Code Visit Inpatient E&M: 30236 Subs Hosp L3
--- NOTE | 2018-10-05 12:41 | NURSING ---
Called [facility] for PICC placement. Due to weather patient will not be able to receive new PICC line until tomorrow.
[2018-10-05] MEDS: Acetaminophen 325 MG Tablet 650 MG PO (15:36)
[2018-10-05 18:26] LABS: Bedside Glucose 172 mg/dL (70-110)
[2018-10-05] MEDS: MELATONIN 3 MG TABLET PO (21:39)
[2018-10-05] MEDS: Mirtazapine 15 MG Tablet 7.5 MG PO (21:39)
[2018-10-05 21:50] LABS: Bedside Glucose 254 mg/dL (70-110)
[2018-10-06] VITALS (16 sets, daily range): BP systolic 115–163; BP diastolic 56–78; PULSE 67–95; RESP 12–32; TEMP 36.6–37.6; O2SAT 94–98
[2018-10-06] MEDS: Ipratropium/Albuterol Sulfate 3 ML AMPUL.NEB INHALATION ×3 (01:03→20:06)
[2018-10-06 06:21] LABS: Hematocrit 26.9 % (37-47); Hemoglobin 8.3 g/dl (12.0-15.0); Mean Corp Hgb Conc 30.9 g/gl (32-36); Mean Corpuscular Volume 100.4 fL (81-99); Mean Platelet Vol. 8.7 fl (6.2-12.0); Platelet Count 220 K/mm3 (150-450); RBC Distribution Width CV 15.5 % (11.6-14.6); RBC Distribution Width SD 56.3 fl (35.1-43.9); Red Blood Count 2.68 M/mm3 (4.2-5.4)
[2018-10-06 06:23] LABS: Scan Indicated on CBC? Y/N NO
[2018-10-06 06:31] LABS: Anion Gap 8 (5-15); BUN 43 mg/dL (7-18); BUN/Creat Ratio 92.1 RATIO (10-20); CPK Total, Creatine Kinase 34 U/L (26-192); Calcium,Total 8.3 mg/dL (8.5-10.1); Chloride 110 mmol/L (98-107); Creatinine, Serum 0.47 mg/dL (0.55-1.02); EST Glomerular Filtration Rate 141 mL/min (>60); Est Glom Filt Rate - Afr Amer 170 mL/min (>60); Estimated Creatinine Clearance 43.92 ml/min; Glucose 172 mg/dL (74-106); Potassium 4.3 mmol/L (3.5-5.1); Sodium Level 144 mmol/L (136-145)
[2018-10-06] MEDS: Piperacil/Tazobactam 3.375 GM/50 ML ML IV ×3 (06:59→22:06)
[2018-10-06 07:02] LABS: International Normalized Ratio 2.7; Prothrombin Time (Protime)PT. 28.5 SECONDS (11.7-14.9)
[2018-10-06 07:16] LABS: Bedside Glucose 152 mg/dL (70-110)
--- NOTE | 2018-10-06 07:25 | PCM.PROGNOTE ---
Patient Problems: Active and Suspected Problems (Last Reviewed 05/04/18 @ 02:22 by Lorne Holder MD) Sepsis (Acute) Subjective: The patient was seen and examined at the bedside this morning. Events from the last 24 hours have been reviewed. The patient is currently afebrile, hemodynamically stable and maintaining appropriate oxygen saturations on 2 L/min via nasal cannula. The patient tolerated BiPAP overnight. She is currently resting comfortably in bed. Objective: The patient's most recent lab work, culture data and imaging studies have all been personally reviewed. VRE was identified for the patient's blood culture dated October 04. Urine culture is currently pending. Strep and urine Legionella antigens were both negative. Respiratory viral panel was negative. Wound culture is currently pending. - Physical Exam General: Alert, Cooperative, No apparent distress HEENT: Atraumatic, PERRLA, Normocephalic Oral: No Gingival or Mucosal Lesions/ Ulcerations Neck: Supple, No Nodes, Trachea Midline Lungs: No rhonchi, No wheeze, No rales, Diminished Cardiovascular: Regular rate, Regular Rhythm, Normal S1, Normal S2, No murmurs Abdomen: Bowel Sounds Present, Soft, Non Tender, Obese Extremities: No clubbing, No cyanosis, No edema Skin: - - No significant change from previous. Musculoskeletal: No Muscle Wasting Lymphatic: No Cervical, Supraclavicular, or Inguinal Adenopathy Neurological: Cranial nerves II-XII grossly intact, Neuro grossly intact Psych/Mental Status: Normal Affect, Appropriate Vital Signs Temp Pulse Resp BP Pulse Ox 36.6 C 69 18 115/56 L 98 10/06/18 03:25 10/06/18 03:25 10/06/18 03:25 10/06/18 03:25 10/06/18 04:54 Oxygen Flow Rate (L/min) 2 Oxygen Delivery Method Nasal Cannula Weight: 182 lb 15.739 oz Body Mass Index (BMI) 32.4 Finger Stick Blood Glucose 165 Intake and Output for Last 24 Hours 10/04/18 10/05/18 10/06/18 23:59 23:59 23:59 Intake Total 0 / 1920 5206.7 / 5206.7 745 / 745 Output Total 275 / 275 1925 / 1925 600 / 600 Balance 1645 / 1645 3281.7 / 3281.7 145 / 145 Microbiology Past 72 Hours 10/04/18 12:10 Gram Stain - Final Wound - Sacral Wound Culture - Preliminary Mixed Gram Pos & Gram Neg Org 10/04/18 07:10 Bacteria Detection (PCR) - Final Blood Culture (Wb) - Central Line Enterococcus faecium Monika/vanB Resistance Marker Blood Culture - Preliminary Enterococcus faecium 10/04/18 08:56 Respiratory Panel (PCR) - Final Mucosa - Nasopharyngeal 10/04/18 08:50 Influenza Types A,B Direct FA (YANCY) - Final Mucosa - Nose 10/04/18 08:35 Legionella Antigen - Final Urine Catheter - Catheter 10/04/18 08:35 Streptococcus pneumoniae Antigen (M - Final Urine Catheter - Catheter Laboratory Tests Past 24 Hrs 10/05/18 10/06/18 10/06/18 11:00 05:02 05:02 WBC RBC Hgb Hct MCV MCH MCHC RDW RDW Differential Plt Count MPV PT 28.5 H INR 2.7 Sodium 144 Potassium 4.3 Chloride 110 H Carbon Dioxide 26.0 Anion Gap 8 BUN 43 H Creatinine 0.47 L Estim Creat Clear Calc 43.92 Est GFR (MDRD) Af Amer 170 Est GFR (MDRD) Non-Af 141 BUN/Creatinine Ratio 92.1 H Glucose 172 H Calcium 8.3 L Total Creatine Kinase 34 Tobramycin Trough 1.4 H* 10/06/18 05:02 WBC 5.0 RBC 2.68 L Hgb 8.3 L Hct 26.9 L MCV 100.4 H MCH 31.0 MCHC 30.9 L RDW 15.5 H RDW Differential 56.3 H Plt Count 220 MPV 8.7 PT INR Sodium Potassium Chloride Carbon Dioxide Anion Gap BUN Creatinine Estim Creat Clear Calc Est GFR (MDRD) Af Amer Est GFR (MDRD) Non-Af BUN/Creatinine Ratio Glucose Calcium Total Creatine Kinase Tobramycin Trough POC Glucose 10/06/18 10/05/18 10/05/18 07:03 21:23 17:18 POC Glucose 152 H 254 H 172 H 10/05/18 11:15 POC Glucose 198 H Clinical Impression(s) from Imaging Studies Chest X-Ray 10/04/18 07:10 IMPRESSION: Platelike atelectatic changes in the right lung base and a small right-sided pleural effusion. Electronically Signed: Johan Garcia MD at 7:42 EST Tel , Service support , Chest X-Ray 10/04/18 10:25 IMPRESSION: Stable examination. The PICC line catheter is unchanged. Electronically Signed: Mack Browne MD at 10:57 EST Tel [phone], Service support , Medical Necessity - Tobacco Use Smoking Status: Former smoker Assessment/Plan All Active Problems (Last Reviewed 05/04/18 @ 02:22 by Lorne Holder MD) Sepsis (Acute) Sepsis associated hypotension (Acute) UTI (urinary tract infection) (Acute) Open wound of left thigh (Acute) Open wound of left lower extremity (Acute) Skin necrosis (Acute) Hematoma (Resolved) Cellulitis of right foot (Resolved) Abscess of toe of right foot (Acute) Infectious arthritis (Acute) Hypoxia (Acute) Suspected sleep apnea (Acute) RECOMMENDATIONS: 1. Continue PAP therapy with naps and nightly. 2. Recommend continuation of antibiotics under the discretion of infectious diseases. 3. Wean supplemental oxygen as tolerated. Encourage incentive spirometer use. 4. Avoid sedating medications. 5. Continue scheduled bronchodilators. IMPRESSIONS: 1. Acute hypoxemic and hypercarbic respiratory failure While the patient does have known mild COPD, obstructive sleep apnea and possible obesity hypoventilation, she was not previously known by me to require supplemental oxygen. However, the patient's family reported to me this morning, that she has been utilizing supplemental oxygen in the long term facility on a continuous basis. The patient's plain film chest x-ray did not reveal findings concerning for an acute infectious process. Hypoxia and CO2 retention may have been the consequence of increased metabolic demands in the setting of #2. This has since improved with noninvasive positive pressure ventilation and by addressing the patient's underlying infectious processes. 2. Sepsis with sources that include urinary tract and necrotic soft tissue ulcers The patient has been placed on broad-spectrum antibiotics. She is currently hemodynamically stable. She does have a positive blood culture for VRE. Continue antimicrobial coverage per infectious diseases recommendations. 3. Metabolic encephalopathy Improved. Likely secondary to underlying infectious processes along with relative state of hypercarbia on presentation. The patient has responded to noninvasive positive pressure ventilation and antibiotics accordingly. Would plan to continue to hold sedating medications. 4. Personal history of mild obstructive lung disease and obstructive sleep apnea Continue scheduled bronchodilators and noninvasive positive pressure ventilation as noted above. 5. Coronary artery disease status post CABG/obesity/neuropathy/chronic pain syndrome/diabetes mellitus/chronic anticoagulation Complicates care, management, recovery and prognosis. Recommend holding sedating medications, including transdermal fentanyl patch. Agree with Lantus and sliding scale insulin coverage. 6. CODE STATUS DNR CCA without intubation. This note was generated with [employer] dictation software. It may contain incorrect words, spelling, and punctuation that were not noted in checking the note before signing. Code Visit Inpatient E&M: 87020 Subs Hosp L2
--- NOTE | 2018-10-06 07:29 | PN_ITS ---
Patient Problems: Active and Suspected Problems (Last Reviewed 05/04/18 @ 02:22 by Lorne Holder MD) Sepsis (Acute) Subjective: The patient was seen and examined at the bedside this morning. Events from the last 24 hours have been reviewed. The patient is currently afebrile, hemodynamically stable and maintaining appropriate oxygen saturations on 2 L/min via nasal cannula. The patient tolerated BiPAP overnight. She is currently resting comfortably in bed. Objective: The patient's most recent lab work, culture data and imaging studies have all been personally reviewed. VRE was identified for the patient's blood culture dated October 04. Urine culture is currently pending. Strep and urine Legion bryn antigens were both negative. Respiratory viral panel was negative. Wound culture is currently pending. - Physical Exam General: Alert, Cooperative, No apparent distress HEENT: Atraumatic, PERRLA, Normocephalic Oral: No Gingival or Mucosal Lesions/ Ulcerations Neck: Supple, No Nodes, Trachea Midline Lungs: No rhonchi, No wheeze, No rales, Diminished Cardiovascular: Regular rate, Regular Rhythm, Normal S1, Normal S2, No murmurs Abdomen: Bowel Sounds Present, Soft, Non Tender, Obese Extremities: No clubbing, No cyanosis, No edema Skin: - - No significant change from previous. Musculoskeletal: No Muscle Wasting Lymphatic: No Cervical, Supraclavicular, or Inguinal Adenopathy Neurological: Cranial nerves II-XII grossly intact, Neuro grossly intact Psych/Mental Status: Normal Affect, Appropriate Vital Signs Temp Pulse Resp BP Pulse Ox 36.6 C 69 18 115/56 L 98 10/06/18 03:25 10/06/18 03:25 10/06/18 03:25 10/06/18 03:25 10/06/18 04:54 Oxygen Flow Rate (L/min) 2 Oxygen Delivery Method Nasal Cannula Weight: 182 lb 15.739 oz Body Mass Index (BMI) 32.4 Finger Stick Blood Glucose 165 Intake and Output for Last 24 Hours 10/04/18 10/05/18 10/06/18 23:59 23:59 23:59 Intake Total 1919 / 0 5206.7 / 5206.7 745 / 745 Output Total 275 / 275 192 / 1925 600 / 600 Balance 1645 / 1645 3281.7 / 3281.7 145 / 145 Microbiology Past 72 Hours 10/04/18 12:10 Gram Stain - Final Wound - Sacral Wound Culture - Preliminary Mixed Gram Pos & Gram Neg Org 10/04/18 07:10 Bacteria Detection (PCR) - Final Blood Culture (Wb) - Central Line Enterococcus faecium Monika/vanB Resistance Marker Blood Culture - Preliminary Enterococcus faecium 10/04/18 08:56 Respiratory Panel (PCR) - Final Mucosa - Nasopharyngeal 10/04/18 08:50 Influenza Types A,B Direct FA (YANCY) - Final Mucosa - Nose 10/04/18 08:35 Legionella Antigen - Final Urine Catheter - Catheter 10/04/18 08:35 Streptococcus pneumoniae Antigen (M - Final Urine Catheter - Catheter Laboratory Tests Past 24 Hrs 10/05/18 10/06/18 10/06/18 11:00 05:02 05:02 WBC RBC Hgb Hct MCV MCH MCHC RDW RDW Differential Plt Count MPV PT 28.5 H INR 2.7 Sodium 144 Potassium 4.3 Chloride 110 H Carbon Dioxide 26.0 Anion Gap 8 BUN 43 H Creatinine 0.47 L Estim Creat Clear Calc 43.92 Est GFR (MDRD) Af Amer 170 Est GFR (MDRD) Non-Af 141 BUN/Creatinine Ratio 92.1 H Glucose 172 H Calcium 8.3 L Total Creatine Kinase 34 Tobramycin Trough 1.4 H* 10/06/18 05:02 WBC 5.0 RBC 2.68 L Hgb 8.3 L Hct 26.9 L MCV 100.4 H MCH 31.0 MCHC 30.9 L RDW 15.5 H RDW Differential 56.3 H Plt Count 220 MPV 8.7 PT INR Sodium Potassium Chloride Carbon Dioxide Anion Gap BUN Creatinine Estim Creat Clear Calc Est GFR (MDRD) Af Amer Est GFR (MDRD) Non-Af BUN/Creatinine Ratio Glucose Calcium Total Creatine Kinase Tobramycin Trough POC Glucose 10/06/18 10/05/18 10/05/18 07:03 21:23 17:18 POC Glucose 152 H 254 H 172 H 10/05/18 11:15 POC Glucose 198 H Clinical Impression(s) from Imaging Studies Chest X-Ray 10/04/18 07:10 IMPRESSION: Platelike atelectatic changes in the right lung base and a small right-sided pleural effusion. Electronically Signed: Johan Garcia MD at 7:42 EST Tel , Service support , Chest X-Ray 10/04/18 10:25 IMPRESSION: Stable examination. The PICC line catheter is unchanged. Electronically Signed: Mack Browne MD at 10:57 EST Tel [phone], Service support , Medical Necessity - Tobacco Use Smoking Status: Former smoker Assessment/Plan All Active Problems (Last Reviewed 05/04/18 @ 02:22 by Lorne Holder MD) Sepsis (Acute) Sepsis associated hypotension (Acute) UTI (urinary tract infection) (Acute) Open wound of left thigh (Acute) Open wound of left lower extremity (Acute) Skin necrosis (Acute) Hematoma (Resolved) Cellulitis of right foot (Resolved) Abscess of toe of right foot (Acute) Infectious arthritis (Acute) Hypoxia (Acute) Suspected sleep apnea (Acute) RECOMMENDATIONS: 1. Continue PAP therapy with naps and nightly. 2. Recommend continuation of antibiotics under the discretion of infectious diseases. 3. Wean supplemental oxygen as tolerated. Encourage incentive spirometer use. 4. Avoid sedating medications. 5. Continue scheduled bronchodilators. IMPRESSIONS: 1. Acute hypoxemic and hypercarbic respiratory failure While the patient does have known mild COPD, obstructive sleep apnea and possible obesity hypoventilation, she was not previously known by me to require supplemental oxygen. However, the patient's family reported to me this morning, that she has been utilizing supplemental oxygen in the alf facility on a continuous basis. The patient's plain film chest x-ray did not reveal findings concerning for an acute infectious process. Hypoxia and CO2 retention may have been the consequence of increased metabolic demands in the setting of #2. This has since improved with noninvasive positive pressure ventilation and by addressing the patient's underlying infectious processes. 2. Sepsis with sources that include urinary tract and necrotic soft tissue ulcers The patient has been placed on broad-spectrum antibiotics. She is currently hemodynamically stable. She does have a positive blood culture for VRE. Continue antimicrobial coverage per infectious diseases recommendations. 3. Metabolic encephalopathy Improved. Likely secondary to underlying infectious processes along with relative state of hypercarbia on presentation. The patient has responded to noninvasive positive pressure ventilation and antibiotics accordingly. Would plan to continue to hold sedating medications. 4. Personal history of mild obstructive lung disease and obstructive sleep apnea Continue scheduled bronchodilators and noninvasive positive pressure ventilation as noted above. 5. Coronary artery disease status post CABG/obesity/neuropathy/chronic pain syndrome/diabetes mellitus/chronic anticoagulation Complicates care, management, recovery and prognosis. Recommend holding sedating medications, including transdermal fentanyl patch. Agree with Lantus and sliding scale insulin coverage. 6. CODE STATUS DNR CCA without intubation. This note was generated with [employer] dictation software. It may contain incorrect words, spelling, and punctuation that were not noted in checking the note before signing. Code Visit Inpatient E&M: 90863 Subs Hosp L2
[2018-10-06] MEDS: Iron Polysaccharide Complex 150 MG CAPSULE PO ×2 (09:37→22:03)
[2018-10-06] MEDS: Folic Acid 1 MG Tablet PO (09:37)
[2018-10-06] MEDS: Amiodarone 200 MG Tablet 400 MG PO (09:37)
[2018-10-06] MEDS: guaiFENesin 1,200 MG Tablet 1200 MG PO ×2 (09:37→22:05)
[2018-10-06] MEDS: Megestrol Acetate 400 MG/10 ML UDC PO ×2 (09:37→22:05)
[2018-10-06] MEDS: Carvedilol 12.5 MG Tablet PO ×2 (09:37→22:03)
[2018-10-06] MEDS: Multivitamins,Therapeutic Tablet 1 TABLET PO (09:37)
[2018-10-06] MEDS: Ascorbic Acid 500 MG Tablet PO ×2 (09:37→16:11)
[2018-10-06] MEDS: Famotidine 20 MG Tablet PO (09:37)
[2018-10-06] MEDS: Polyethylene Glycol 3350 17 GM PACKET PO (09:37)
[2018-10-06] MEDS: Insulin Lispro 100 UNIT/ML INSULN.PEN SC ×4 (09:38→22:03)
[2018-10-06 11:11] LABS: Bedside Glucose 211 mg/dL (70-110)
--- NOTE | 2018-10-06 12:10 | NURSING ---
Roly RN phoned to place PICC. Per answering service, they are unable to come out d/t weather. They will phone tomorrow with ETA.
--- NOTE | 2018-10-06 12:24 | PCM.PROGNOTE ---
<Galina Balderas - Last Filed: 10/06/18 12:28> Patient Problems: Active and Suspected Problems (Last Reviewed 05/04/18 @ 02:22 by Lorne Holder MD) Sepsis (Acute) Subjective: Patient seen and examined. Feels well. No acute events overnight. Denies current complaints. - Physical Exam General: Alert, Oriented x3, Cooperative, No apparent distress HEENT: Atraumatic, PERRLA, EOMI, Normocephalic Neck: Supple, No JVD, Negative Carotid Bruits Lungs: Clear to auscultation, Diminished Cardiovascular: Regular rate, Regular Rhythm, Normal S1, Normal S2, No murmurs Abdomen: Bowel Sounds Present, Soft, Non Tender, Non-Distended, Obese Extremities: No clubbing, No cyanosis, No edema, Capillary Refill Less than 3 Seconds Skin: - - Chronic sacral ulcer, dressing intact. Left lower extremity dressings clean dry and intact. Left hand and wrist skin tears. Musculoskeletal: No Tenderness to Palpation of Joints or Extremities Neurological: Cranial nerves II-XII grossly intact, Neuro grossly intact Psych/Mental Status: Normal Affect, Appropriate Vital Signs Temp Pulse Resp BP Pulse Ox 98.0 F 77 14 144/78 H 96 10/06/18 09:40 10/06/18 11:00 10/06/18 09:40 10/06/18 09:40 10/06/18 09:40 Oxygen Flow Rate (L/min) 2 Oxygen Delivery Method Nasal Cannula Weight: 182 lb 15.739 oz Body Mass Index (BMI) 32.4 Finger Stick Blood Glucose 165 Intake and Output for Last 24 Hours 10/04/18 10/05/18 10/06/18 23:59 23:59 23:59 Intake Total 1919 / 1919 5206.7 / 5206.7 1199.9 / 1199.9 Output Total 275 / 275 1925 / 1925 1000 / 1000 Balance 1645 / 1645 3281.7 / 3281.7 199.9 / 199.9 Microbiology Past 72 Hours 10/04/18 12:10 Gram Stain - Final Wound - Sacral Wound Culture - Preliminary Gram negative stevenson Gram negative stevenson#2 Gram negative stevenson#3 Gram positive organism Gram positive organism#2 10/04/18 07:10 Bacteria Detection (PCR) - Final Blood Culture (Wb) - Central Line Enterococcus faecium Monika/vanB Resistance Marker Blood Culture - Final Vancomycin Resist. E. faecium 10/04/18 08:56 Respiratory Panel (PCR) - Final Mucosa - Nasopharyngeal 10/04/18 08:50 Influenza Types A,B Direct FA (YANCY) - Final Mucosa - Nose 10/04/18 08:35 Legionella Antigen - Final Urine Catheter - Catheter 10/04/18 08:35 Streptococcus pneumoniae Antigen (M - Final Urine Catheter - Catheter Laboratory Tests Past 24 Hrs 10/06/18 10/06/18 10/06/18 05:02 05:02 05:02 WBC 5.0 RBC 2.68 L Hgb 8.3 L Hct 26.9 L MCV 100.4 H MCH 31.0 MCHC 30.9 L RDW 15.5 H RDW Differential 56.3 H Plt Count 220 MPV 8.7 PT 28.5 H INR 2.7 Sodium 144 Potassium 4.3 Chloride 110 H Carbon Dioxide 26.0 Anion Gap 8 BUN 43 H Creatinine 0.47 L Estim Creat Clear Calc 43.92 Est GFR (MDRD) Af Amer 170 Est GFR (MDRD) Non-Af 141 BUN/Creatinine Ratio 92.1 H Glucose 172 H Calcium 8.3 L Total Creatine Kinase 34 POC Glucose 10/06/18 10/06/18 10/05/18 11:00 07:03 21:23 POC Glucose 211 H 152 H 254 H 10/05/18 17:18 POC Glucose 172 H Medical Necessity - Tobacco Use Smoking Status: Former smoker Assessment/Plan All Active Problems (Last Reviewed 05/04/18 @ 02:22 by Lorne Holder MD) Sepsis (Acute) Sepsis associated hypotension (Acute) UTI (urinary tract infection) (Acute) Open wound of left thigh (Acute) Open wound of left lower extremity (Acute) Skin necrosis (Acute) Hematoma (Resolved) Cellulitis of right foot (Resolved) Abscess of toe of right foot (Acute) Infectious arthritis (Acute) Hypoxia (Acute) Suspected sleep apnea (Acute) 1. Acute sepsis secondary to enterococcus faecium/VRE bacteremia with suspected multi source including UTI/central line/sacral wound-ID following. Started on daptomycin 8 mg/kg and IV zosyn. . Follow labs. PICC line to be removed. Send PICC line tip for cultures and repeat blood cultures. ID recommending ERNESTO and abdomen/pelvic CT w/wo contrast if family wishes to continue aggressive treatment. Wound culture preliminary showing multiple gram-negative and gram-positive organisms. Urine culture pending. 2. Acute on chronic hypoxic and hypercarbic respiratory failure-patient has recently been using supplemental oxygen at [facility]. Chest x-ray unremarkable. Influenza a and respiratory panel negative. Suspect respiratory failure due to increased metabolic demands secondary to #1. Continue to treat underlying infectious process. Continue supplement oxygen to maintain O2 at or above 90%. Avoid sedating regimen. Albuterol DuoNeb aerosol. BiPAP nightly and with naps. Respiratory status complicated by obesity hypoventilation syndrome, chronic COPD, ELDER. 3. Acute metabolic encephalopathy secondary to #1/#2-improved. Continue treatment as noted above. 4. Chronic stage III coccyx decubital ulcer, present on admission-patient underwent debridement in the past followed by LTAC stay which she was discharge to [facility] 09/09/18. Wound RN consult. Dressing changes per orders. Wound culture preliminary result with multiple gram-negative and gram-positive organisms. 5. Acute on chronic recurrent UTI with chronic conroy-history of cultures positive for E. coli, Klebsiella, +ESBL. Urine culture pending. Continue antibiotics per #1. 6. Chronic iron deficiency anemia, anemia of chronic disease-Stable. Continue iron supplementation. 4. History of left upper extremity DVT, February 2018-continue Coumadin. 5. CAD status post three-vessel CABG-Continue Plavix, carvedilol, Coumadin. 6. Hypertension-stable, continue home regimen. 7. Hyperlipidemia-continue statin. 8. Type 2 diabetes mellitus-hold home oral regimen. Accu-Cheks before meals at bedtime with sliding scale insulin. 9. Diabetic neuropathy-continue home gabapentin regimen. 10. Chronic COPD/asthma-DuoNeb aerosols as needed. Continue home Singulair regimen. 11. Tobacco dependence-encourage smoking cessation. 12. Obstructive sleep apnea-continue BIPAP nightly. 13. GERD-continue PPI. DVT prophylaxis-coumadin This patient was seen by LUCIE Jim under the supervision of Dr. Landrum. <Scott Landrum - Last Filed: 10/06/18 13:04> - Physical Exam Vital Signs Temp Pulse Resp BP Pulse Ox 98.0 F 77 14 144/78 H 96 10/06/18 09:40 10/06/18 11:00 10/06/18 09:40 10/06/18 09:40 10/06/18 09:40 Oxygen Flow Rate (L/min) 2 Oxygen Delivery Method Nasal Cannula Weight: 83 kg Body Mass Index (BMI) 32.4 Finger Stick Blood Glucose 165 Intake and Output for Last 24 Hours 10/04/18 10/05/18 10/06/18 23:59 23:59 23:59 Intake Total 0 / 1920 5206.7 / 5206.7 1199.9 / 1199.9 Output Total 275 / 275 5 / 1925 1000 / 1000 Balance 1645 / 1645 3281.7 / 3281.7 199.9 / 199.9 Microbiology Past 72 Hours 10/04/18 07:45 Blood Culture - Preliminary Blood Culture (Wb) - Left Forearm No growth in 48 hours. 10/04/18 12:10 Gram Stain - Final Wound - Sacral Wound Culture - Preliminary Gram negative stevenson Gram negative stevenson#2 Gram negative stevenson#3 Gram positive organism Gram positive organism#2 10/04/18 07:10 Bacteria Detection (PCR) - Final Blood Culture (Wb) - Central Line Enterococcus faecium Monika/vanB Resistance Marker Blood Culture - Final Vancomycin Resist. E. faecium 10/04/18 08:56 Respiratory Panel (PCR) - Final Mucosa - Nasopharyngeal 10/04/18 08:50 Influenza Types A,B Direct FA (YANCY) - Final Mucosa - Nose 10/04/18 08:35 Legionella Antigen - Final Urine Catheter - Catheter 10/04/18 08:35 Streptococcus pneumoniae Antigen (M - Final Urine Catheter - Catheter Laboratory Tests Past 24 Hrs 10/06/18 10/06/18 10/06/18 05:02 05:02 05:02 WBC 5.0 RBC 2.68 L Hgb 8.3 L Hct 26.9 L MCV 100.4 H MCH 31.0 MCHC 30.9 L RDW 15.5 H RDW Differential 56.3 H Plt Count 220 MPV 8.7 PT 28.5 H INR 2.7 Sodium 144 Potassium 4.3 Chloride 110 H Carbon Dioxide 26.0 Anion Gap 8 BUN 43 H Creatinine 0.47 L Estim Creat Clear Calc 43.92 Est GFR (MDRD) Af Amer 170 Est GFR (MDRD) Non-Af 141 BUN/Creatinine Ratio 92.1 H Glucose 172 H Calcium 8.3 L Total Creatine Kinase 34 POC Glucose 10/06/18 10/06/18 10/05/18 11:00 07:03 21:23 POC Glucose 211 H 152 H 254 H 10/05/18 17:18 POC Glucose 172 H Assessment/Plan This patient was seen in conjunction with LUCIE Jim . I have independently interviewed and examined the patient and reviewed pertinent historical, laboratory, and other data. Please refer to LUCIE Jim note for details of this patient's presentation, findings, and recommendations. I have reviewed LUCIE Jim note and concur with documented findings. In brief, patient is a 68-year-old lady with multiple comorbidities admitted with decreased level of sensorium and assessment of sepsis as well as acute metabolic encephalopathy with respiratory failure made admitted to monitored bed 10/06/2018: Patient blood cultures so far positive for VRE antibiotic regimen adjusted by Dr. Palmer with infectious disease with discontinuation of vancomycin and initiation of daptomycin. Recommended for patient undergo further evaluation with a ERNESTO as well as CT of the abdomen and pelvis Physical Examination: GENERAL: Not in distress HEENT: Atraumatic; moist oral mucosa EYES; Anicteric, Normal Conjunctiva NECK; supple, normal thyroid, no distended JVD. RESPIRATORY: Diminished to auscultation bilaterally, CARDIOVASCULAR: Regular S1 S2, SKIN: Areas of sleeping wounds on both lower extremities as well as the lower part of her sternum at the site of her CABG incision Assessment: 1. Acute metabolic encephalopathy secondary to respiratory failure with hypercapnia patient placed on noninvasive ventilation BiPAP 2. Hypoxemic and hypercapnic respiratory failure possibly precipitated by patient multiple psychotropic medications in the setting of COPD, obstructive sleep apnea and possible obesity hypoventilation, 3. Sepsis secondary to UTI due to the presence of Conroy catheter present on admission 4. Stage III coccyx decubitus ulcer: Consult placed to wound care nurse dressing changes 5. Anemia secondary to anemia of chronic disorder 6. DVT involving the left upper extremity diagnosed in February 2018 7. CAD with previous three-vessel CABG 8. Essential hypertension-blood pressure controlled 9. Dyslipidemia 10. 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 COPD 12. Obstructive sleep apnea 13. Obesity hypoventilation syndrome 14. GERD 15. DVT prophylaxis on Coumadin Recommendations: 1. I have discussed the results of my overview and impressions with the patient 2. Options for management were reviewed Microbiology 10/04/18 07:45 Blood Culture - Preliminary Blood Culture (Wb) - Left Forearm No growth in 48 hours. 10/04/18 12:10 Gram Stain - Final Wound - Sacral Wound Culture - Preliminary Gram negative stevenson Gram negative stevenson#2 Gram negative stevenson#3 Gram positive organism Gram positive organism#2 10/04/18 07:10 Bacteria Detection (PCR) - Final Blood Culture (Wb) - Central Line Enterococcus faecium Monika/vanB Resistance Marker Blood Culture - Final Vancomycin Resist. E. faecium Code Visit Inpatient E&M: 60485 Subs Hosp L3
--- NOTE | 2018-10-06 12:30 | CT_ITS ---
STUDY: CT ABDOMEN AND PELVIS WITH AND WITHOUT CONTRAST REASON FOR EXAM: Female, 68 years old. Sepsis, bacteremia. Unknown source RADIATION DOSAGE (If Supplied By Facility): CTDIvol = ( 22.45 ) mGy, DLP = ( 2114.34 ) mGycm TECHNIQUE: Transaxial images were obtained from the dome of the diaphragm to the symphysis pubis without oral contrast. 100 ml of Isovue 300 contrast was administered. Sagittal and coronal images were reconstructed. Individualized dose optimization techniques were used for this CT. COMPARISON: 05/06/2018 FINDINGS: Airspace disease bilaterally; right greater than left. Bilateral compressive consolidation. Mild to moderate cardiomegaly Hepatomegaly is noted. There is a hypodense rounded structure in the left lobe measuring 4 x 3.8 cm. Probable hemangioma. There are multiple gallstones. Normal spleen. Normal pancreas. Normal bilateral adrenal glands. Mild atrophy of both kidneys with prominent bilateral perinephric fat stranding, likely age-related. Stable from prior exam. Exophytic left renal cyst in the upper pole, stable. No evidence of stones or obstruction. There is a small hiatal hernia. Visualized small and large bowel are within normal limits. Stable diverticulosis. Left lower quadrant ostomy. Nonvisualized appendix There is diffuse atherosclerotic calcification of the abdominal aorta, without a demonstrated aneurysm. Normal inferior vena cava. Normal retroperitoneum. Bladder demonstrates Allen catheter. Underdistended. Possible wall thickening. Diffuse mild anasarca There are diffuse degenerative changes of the visualized lumbar spine. CT/CT Abd/Pelvis W/WO Contrast IMPRESSION: 1. Stable liver hemangioma. Otherwise, unremarkable liver 2. Stable left renal cyst. Continued bilateral perinephric fat stranding however, likely age-related in nature. No evidence of acute obstruction 3. Bibasilar airspace disease; right greater than left with small effusion 4. Left lower quadrant ostomy 5. Under distended bladder with Allen catheter. Wall thickening. 6. Anasarca Electronically Signed: Sekou Aguirre DO at 15:31 EST Tel , Service support ,
[2018-10-06 16:50] LABS: Bedside Glucose 161 mg/dL (70-110)
[2018-10-06] MEDS: 0.9% Normal Saline 1,000 ML 100 ML IV (22:03)
[2018-10-06] MEDS: Docusate Sodium 100 MG Capsule PO (22:03)
[2018-10-06] MEDS: Mirtazapine 15 MG Tablet 7.5 MG PO (22:05)
[2018-10-06] MEDS: MELATONIN 3 MG TABLET PO (22:05)
[2018-10-06] MEDS: Acetaminophen 325 MG Tablet 650 MG PO (22:06)
[2018-10-06 22:20] LABS: Bedside Glucose 160 mg/dL (70-110)
[2018-10-07] VITALS (11 sets, daily range): BP systolic 120–183; BP diastolic 60–86; PULSE 67–86; RESP 16–20; TEMP 36–36.6; O2SAT 94–99; BMI 32.4
--- NOTE | 2018-10-07 02:46 | CPS ---
pt refused bipap tonight , offered x2
[2018-10-07] MEDS: Piperacil/Tazobactam 3.375 GM/50 ML ML IV ×3 (05:57→21:06)
[2018-10-07] MEDS: 0.9% Normal Saline 1,000 ML 100 ML IV ×2 (05:57→17:44)
[2018-10-07 06:30] LABS: Hematocrit 29.3 % (37-47); Hemoglobin 9.2 g/dl (12.0-15.0); Mean Corp Hgb Conc 31.4 g/gl (32-36); Mean Corpuscular Hgb 31.4 pg (27.0-32.0); Mean Platelet Vol. 8.4 fl (6.2-12.0); Platelet Count 275 K/mm3 (150-450); RBC Distribution Width SD 52.6 fl (35.1-43.9); Red Blood Count 2.93 M/mm3 (4.2-5.4); White Blood Count 6.1 K/mm3 (4.4-11.0)
[2018-10-07 06:38] LABS: Anion Gap 8 (5-15); BUN 29 mg/dL (7-18); BUN/Creat Ratio 73.6 RATIO (10-20); Calcium,Total 8.3 mg/dL (8.5-10.1); Chloride 111 mmol/L (98-107); Creatinine, Serum 0.39 mg/dL (0.55-1.02); EST Glomerular Filtration Rate 171 mL/min (>60); Est Glom Filt Rate - Afr Amer 207 mL/min (>60); Estimated Creatinine Clearance 43.92 ml/min; Glucose 91 mg/dL (74-106); Potassium 3.7 mmol/L (3.5-5.1); Sodium Level 144 mmol/L (136-145)
[2018-10-07 06:43] LABS: Scan Indicated on CBC? Y/N NO
[2018-10-07 06:47] LABS: International Normalized Ratio 3.1; Prothrombin Time (Protime)PT. 32.3 SECONDS (11.7-14.9)
[2018-10-07 07:56] LABS: Bedside Glucose 81 mg/dL (70-110)
--- NOTE | 2018-10-07 09:46 | ECHOL_ITS ---
Version 2 Reason For Study: Bacteremia Procedure This was a limited 2D transthoracic echocardiogram. Exam performed portable in patient room. Left Ventricle Normal LV size. Left ventricular systolic function is normal. The estimated ejection fraction is 60 %. No regional wall motion abnormalities noted. Right Ventricle Normal RV size. Normal systolic function. Atria Normal left atrium. Normal right atrium. Mitral Valve Normal mitral valve. Mild (1+) eccentric mitral valve insufficiency. Tricuspid Valve Normal tricuspid valve. Aortic Valve Trisinus/trileaflet aortic valve. Mild focal aortic valve calcification. Pulmonic Valve Normal pulmonic valve. Great Vessels Normal aortic root. The pulmonary artery is normal size. Normal inferior vena cava. Pericardium/Pleural No pericardial effusion. MMode/2D Measurements & Calculations LVIDd: 5.1 cm IVSd: 1.2 cm LA dimension: 4.1 cm LVIDs: 3.9 cm LVPWd: 0.94 cm FS: 24.9 % Interpretation Summary Normal LV size. Left ventricular systolic function is normal. The estimated ejection fraction is 60 %. Mild focal aortic valve calcification. There is no evidence of a mass or vegetation. This does not rule out endocarditis. Ordering Physician: LUCIE Jim Referring Physician: Tong Willis Performed By: Michael South RCS
[2018-10-07] MEDS: Famotidine 20 MG Tablet PO (10:42)
[2018-10-07] MEDS: Folic Acid 1 MG Tablet PO (10:42)
[2018-10-07] MEDS: Iron Polysaccharide Complex 150 MG CAPSULE PO ×2 (10:42→21:06)
[2018-10-07] MEDS: guaiFENesin 1,200 MG Tablet 1200 MG PO ×2 (10:42→21:06)
[2018-10-07] MEDS: Amiodarone 200 MG Tablet 400 MG PO (10:43)
[2018-10-07] MEDS: Multivitamins,Therapeutic Tablet 1 TABLET PO (10:43)
[2018-10-07] MEDS: Ascorbic Acid 500 MG Tablet PO ×2 (10:43→18:24)
[2018-10-07] MEDS: Carvedilol 12.5 MG Tablet PO ×2 (10:43→21:06)
[2018-10-07] MEDS: Docusate Sodium 100 MG Capsule PO ×2 (10:43→21:06)
[2018-10-07] MEDS: Megestrol Acetate 400 MG/10 ML UDC PO ×2 (10:44→21:06)
[2018-10-07] MEDS: Polyethylene Glycol 3350 17 GM PACKET PO (10:44)
--- NOTE | 2018-10-07 10:54 | PCM.PROGNOTE ---
Patient Problems: Active and Suspected Problems (Last Reviewed 05/04/18 @ 02:22 by Lorne Holder MD) Sepsis (Acute) Subjective: Patient did okay overnight. Patient has remained afebrile and saturating well on 2-3 L nasal cannula. Patient did not use BiPAP therapy overnight. Patient reports she is subjectively unchanged compared to previous. - Physical Exam General: Alert, Oriented x3, Cooperative, No apparent distress, - - Obese. No conversational dyspnea HEENT: Atraumatic, PERRLA, EOMI, Normocephalic, - - No scleral icterus or injection noted. Oral: Moist Mucosa, No Gingival or Mucosal Lesions/ Ulcerations Neck: Supple, No JVD, No Nodes, Trachea Midline Lungs: No rhonchi, No wheeze, No rales, Diminished Cardiovascular: Regular rate, Regular Rhythm, Normal S1, Normal S2, No murmurs, No rub noted, No Gallop Abdomen: Bowel Sounds Present, Soft, Non Tender, Non-Distended, Obese Extremities: No clubbing, No cyanosis, No edema Skin: - - Ecchymosis with multiple layers of healing. Dermal atrophy appreciated. Musculoskeletal: No Tenderness to Palpation of Joints or Extremities Lymphatic: No Cervical, Supraclavicular, or Inguinal Adenopathy Neurological: Cranial nerves II-XII grossly intact, Neuro grossly intact Psych/Mental Status: Normal Affect, Appropriate Vital Signs Temp Pulse Resp BP Pulse Ox 36.1 C L 72 18 183/86 H 94 10/07/18 08:00 10/07/18 08:00 10/07/18 08:00 10/07/18 08:00 10/07/18 08:19 Oxygen Flow Rate (L/min) 3 Oxygen Delivery Method Nasal Cannula Weight: 83 kg Body Mass Index (BMI) 32.4 Finger Stick Blood Glucose 165 Intake and Output for Last 24 Hours 10/05/18 10/06/18 10/07/18 23:59 23:59 23:59 Intake Total 5206.7 / 5206.7 2682.8 / 2682.8 659.4 / 659.4 Output Total 1925 / 1925 2650 / 2650 625 / 625 Balance 3281.7 / 3281.7 32.8 / 32.8 34.4 / 34.4 Microbiology Past 72 Hours 10/04/18 12:10 Gram Stain - Final Wound - Sacral Wound Culture - Preliminary Klebsiella pneumoniae sp pneum Acinetobacter baumannii Escherichia coli Staphylococcus haemolyticus Corynebacterium striatum 10/04/18 08:05 Urine Culture - Final Urine Catheter - Catheter GNR lactose retail visual merchandiser GNR lactose retail visual merchandiser#2 Gram positive organism Gram positive organism#2 Yeast Like Organism 10/04/18 07:45 Blood Culture - Preliminary Blood Culture (Wb) - Left Forearm No growth in 48 hours. 10/04/18 07:10 Bacteria Detection (PCR) - Final Blood Culture (Wb) - Central Line Enterococcus faecium Monika/vanB Resistance Marker Blood Culture - Final Vancomycin Resist. E. faecium 10/04/18 08:56 Respiratory Panel (PCR) - Final Mucosa - Nasopharyngeal 10/04/18 08:50 Influenza Types A,B Direct FA (YANCY) - Final Mucosa - Nose 10/04/18 08:35 Legionella Antigen - Final Urine Catheter - Catheter 10/04/18 08:35 Streptococcus pneumoniae Antigen (M - Final Urine Catheter - Catheter Laboratory Tests Past 24 Hrs 10/07/18 10/07/18 10/07/18 05:47 05:47 05:47 WBC 6.1 RBC 2.93 L Hgb 9.2 L Hct 29.3 L MCV 100.0 H MCH 31.4 MCHC 31.4 L RDW 15.0 H RDW Differential 52.6 H Plt Count 275 MPV 8.4 PT 32.3 H INR 3.1 Sodium 144 Potassium 3.7 Chloride 111 H Carbon Dioxide 25.0 Anion Gap 8 BUN 29 H Creatinine 0.39 L Estim Creat Clear Calc 43.92 Est GFR (MDRD) Af Amer 207 Est GFR (MDRD) Non-Af 171 BUN/Creatinine Ratio 73.6 H Glucose 91 Calcium 8.3 L POC Glucose 10/07/18 10/06/18 10/06/18 06:55 22:01 16:11 POC Glucose 81 160 H 161 H 10/06/18 11:00 POC Glucose 211 H Clinical Impression(s) from Imaging Studies Abdomen/Pelvis CT 10/06/18 12:30 IMPRESSION: 1. Stable liver hemangioma. Otherwise, unremarkable liver 2. Stable left renal cyst. Continued bilateral perinephric fat stranding however, likely age-related in nature. No evidence of acute obstruction 3. Bibasilar airspace disease; right greater than left with small effusion 4. Left lower quadrant ostomy 5. Under distended bladder with Allen catheter. Wall thickening. 6. Anasarca Electronically Signed: Sekou Aguirre DO at 15:31 EST Tel , Service support , Medical Necessity - Tobacco Use Smoking Status: Former smoker Assessment/Plan All Active Problems (Last Reviewed 05/04/18 @ 02:22 by Lorne Holder MD) Sepsis (Acute) Sepsis associated hypotension (Acute) UTI (urinary tract infection) (Acute) Open wound of left thigh (Acute) Open wound of left lower extremity (Acute) Skin necrosis (Acute) Hematoma (Resolved) Cellulitis of right foot (Resolved) Abscess of toe of right foot (Acute) Infectious arthritis (Acute) Hypoxia (Acute) Suspected sleep apnea (Acute) RECOMMENDATIONS: 1. Continue PAP therapy with naps and nightly. 2. Recommend continuation of antibiotics under the discretion of infectious diseases. 3. Wean supplemental oxygen as tolerated. Encourage incentive spirometer use. 4. Avoid sedating medications. 5. Continue scheduled bronchodilators. IMPRESSIONS: 1. Acute hypoxemic and hypercarbic respiratory failure While the patient does have known mild COPD, obstructive sleep apnea and possible obesity hypoventilation, she was not previously known by me to require supplemental oxygen. However, the patient's family reported to me this morning, that she has been utilizing supplemental oxygen in the long term facility on a continuous basis. The patient's plain film chest x-ray did not reveal findings concerning for an acute infectious process. Patient did not use BiPAP overnight. Stressed to the patient the importance of using BiPAP to avoid future complications. 2. Sepsis with sources that include urinary tract and necrotic soft tissue ulcers The patient has been placed on broad-spectrum antibiotics. She is currently hemodynamically stable. She does have a positive blood culture for VRE. Continue antimicrobial coverage per infectious diseases recommendations. Patient reportedly to have a transthoracic echocardiogram for evaluation later this morning. 3. Metabolic encephalopathy Resolved. She did appear to be at baseline mentation during my evaluation. Likely secondary to underlying infectious processes along with relative state of hypercarbia on presentation. The patient has responded to noninvasive positive pressure ventilation and antibiotics accordingly. Would continue to hold sedating medications if possible. Delirium protocol. 4. Personal history of mild obstructive lung disease and obstructive sleep apnea Continue scheduled bronchodilators and noninvasive positive pressure ventilation as noted above. 5. Coronary artery disease status post CABG/obesity/neuropathy/chronic pain syndrome/diabetes mellitus/chronic anticoagulation Complicates care, management, recovery and prognosis. Recommend holding sedating medications, including transdermal fentanyl patch. Agree with Lantus and sliding scale insulin coverage. 6. CODE STATUS DNR CCA without intubation. Code Visit Inpatient E&M: 61821 Subs Hosp L2
--- NOTE | 2018-10-07 11:00 | PN_ITS ---
Patient Problems: Active and Suspected Problems (Last Reviewed 05/04/18 @ 02:22 by Lorne Holder MD) Sepsis (Acute) Subjective: Patient did okay overnight. Patient has remained afebrile and saturating well on 2-3 L nasal cannula. Patient did not use BiPAP therapy overnight. Patient reports she is subjectively unchanged compared to previous. - Physical Exam General: Alert, Oriented x3, Cooperative, No apparent distress, - - Obese. No conversational dyspnea HEENT: Atraumatic, PERRLA, EOMI, Normocephalic, - - No scleral icterus or injection noted. Oral: Moist Mucosa, No Gingival or Mucosal Lesions/ Ulcerations Neck: Supple, No JVD, No Nodes, Trachea Midline Lungs: No rhonchi, No wheeze, No rales, Diminished Cardiovascular: Regular rate, Regular Rhythm, Normal S1, Normal S2, No murmurs, No rub noted, No Gallop Abdomen: Bowel Sounds Present, Soft, Non Tender, Non-Distended, Obese Extremities: No clubbing, No cyanosis, No edema Skin: - - Ecchymosis with multiple layers of healing. Dermal atrophy appreciated. Musculoskeletal: No Tenderness to Palpation of Joints or Extremities Lymphatic: No Cervical, Supraclavicular, or Inguinal Adenopathy Neurological: Cranial nerves II-XII grossly intact, Neuro grossly intact Psych/Mental Status: Normal Affect, Appropriate Vital Signs Temp Pulse Resp BP Pulse Ox 36.1 C L 72 18 183/86 H 94 10/07/18 08:00 10/07/18 08:00 10/07/18 08:00 10/07/18 08:00 10/07/18 08:19 Oxygen Flow Rate (L/min) 3 Oxygen Delivery Method Nasal Cannula Weight: 83 kg Body Mass Index (BMI) 32.4 Finger Stick Blood Glucose 165 Intake and Output for Last 24 Hours 10/05/18 10/06/18 10/07/18 23:59 23:59 23:59 Intake Total 5206.7 / 5206.7 2682.8 / 2682.8 659.4 / 659.4 Output Total 1925 / 1925 2650 / 2650 625 / 625 Balance 3281.7 / 3281.7 32.8 / 32.8 34.4 / 34.4 Microbiology Past 72 Hours 10/04/18 12:10 Gram Stain - Final Wound - Sacral Wound Culture - Preliminary Klebsiella pneumoniae sp pneum Acinetobacter baumannii Escherichia coli Staphylococcus haemolyticus Corynebacterium striatum 10/04/18 08:05 Urine Culture - Final Urine Catheter - Catheter GNR lactose continuous yarn dyeing machine operator GNR lactose continuous yarn dyeing machine operator#2 Gram positive organism Gram positive organism#2 Yeast Like Organism 10/04/18 07:45 Blood Culture - Preliminary Blood Culture (Wb) - Left Forearm No growth in 48 hours. 10/04/18 07:10 Bacteria Detection (PCR) - Final Blood Culture (Wb) - Central Line Enterococcus faecium Monika/vanB Resistance Marker Blood Culture - Final Vancomycin Resist. E. faecium 10/04/18 08:56 Respiratory Panel (PCR) - Final Mucosa - Nasopharyngeal 10/04/18 08:50 Influenza Types A,B Direct FA (YANCY) - Final Mucosa - Nose 10/04/18 08:35 Legionella Antigen - Final Urine Catheter - Catheter 10/04/18 08:35 Streptococcus pneumoniae Antigen (M - Final Urine Catheter - Catheter Laboratory Tests Past 24 Hrs 10/07/18 10/07/18 10/07/18 05:47 05:47 05:47 WBC 6.1 RBC 2.93 L Hgb 9.2 L Hct 29.3 L MCV 100.0 H MCH 31.4 MCHC 31.4 L RDW 15.0 H RDW Differential 52.6 H Plt Count 275 MPV 8.4 PT 32.3 H INR 3.1 Sodium 144 Potassium 3.7 Chloride 111 H Carbon Dioxide 25.0 Anion Gap 8 BUN 29 H Creatinine 0.39 L Estim Creat Clear Calc 43.92 Est GFR (MDRD) Af Amer 207 Est GFR (MDRD) Non-Af 171 BUN/Creatinine Ratio 73.6 H Glucose 91 Calcium 8.3 L POC Glucose 10/07/18 10/06/18 10/06/18 06:55 22:01 16:11 POC Glucose 81 160 H 161 H 10/06/18 11:00 POC Glucose 211 H Clinical Impression(s) from Imaging Studies Abdomen/Pelvis CT 10/06/18 12:30 IMPRESSION: 1. Stable liver hemangioma. Otherwise, unremarkable liver 2. Stable left renal cyst. Continued bilateral perinephric fat stranding however, likely age-related in nature. No evidence of acute obstruction 3. Bibasilar airspace disease; right greater than left with small effusion 4. Left lower quadrant ostomy 5. Under distended bladder with Allen catheter. Wall thickening. 6. Anasarca Electronically Signed: Sekou Aguirre DO at 15:31 EST Tel , Service support , Medical Necessity - Tobacco Use Smoking Status: Former smoker Assessment/Plan All Active Problems (Last Reviewed 05/04/18 @ 02:22 by Lorne Holder MD) Sepsis (Acute) Sepsis associated hypotension (Acute) UTI (urinary tract infection) (Acute) Open wound of left thigh (Acute) Open wound of left lower extremity (Acute) Skin necrosis (Acute) Hematoma (Resolved) Cellulitis of right foot (Resolved) Abscess of toe of right foot (Acute) Infectious arthritis (Acute) Hypoxia (Acute) Suspected sleep apnea (Acute) RECOMMENDATIONS: 1. Continue PAP therapy with naps and nightly. 2. Recommend continuation of antibiotics under the discretion of infectious diseases. 3. Wean supplemental oxygen as tolerated. Encourage incentive spirometer use. 4. Avoid sedating medications. 5. Continue scheduled bronchodilators. IMPRESSIONS: 1. Acute hypoxemic and hypercarbic respiratory failure While the patient does have known mild COPD, obstructive sleep apnea and possible obesity hypoventilation, she was not previously known by me to require supplemental oxygen. However, the patient's family reported to me this morning, that she has been utilizing supplemental oxygen in the assisted facility on a continuous basis. The patient's plain film chest x-ray did not reveal findings concerning for an acute infectious process. Patient did not use BiPAP overnight. Stressed to the patient the importance of using BiPAP to avoid future complications. 2. Sepsis with sources that include urinary tract and necrotic soft tissue ulcers The patient has been placed on broad-spectrum antibiotics. She is currently hemodynamically stable. She does have a positive blood culture for VRE. Continue antimicrobial coverage per infectious diseases recommendations. Patient reportedly to have a transthoracic echocardiogram for evaluation later this morning. 3. Metabolic encephalopathy Resolved. She did appear to be at baseline mentation during my evaluation. Likely secondary to underlying infectious processes along with relative state of hypercarbia on presentation. The patient has responded to noninvasive positive pressure ventilation and antibiotics accordingly. Would continue to hold sedating medications if possible. Delirium protocol. 4. Personal history of mild obstructive lung disease and obstructive sleep apnea Continue scheduled bronchodilators and noninvasive positive pressure ventilation as noted above. 5. Coronary artery disease status post CABG/obesity/neuropathy/chronic pain syndrome/diabetes mellitus/chronic anticoagulation Complicates care, management, recovery and prognosis. Recommend holding sedating medications, including transdermal fentanyl patch. Agree with Lantus and sliding scale insulin coverage. 6. CODE STATUS DNR CCA without intubation. Code Visit Inpatient E&M: 47944 Subs Hosp L2
[2018-10-07 12:10] LABS: Bedside Glucose 81 mg/dL (70-110)
--- NOTE | 2018-10-07 13:20 | PN.ID_ITS ---
Patient Problems: Active and Suspected Problems (Last Reviewed 05/04/18 @ 02:22 by Lorne Holder MD) Sepsis (Acute) Subjective: Feeling better, no fever, denies abd pain. Picc to be removed and new one placed today. - Physical Exam General: Alert, Cooperative, No apparent distress Lungs: Clear to auscultation, Normal air movement Cardiovascular: Regular rate, Regular Rhythm Abdomen: Soft, Non Tender, Non-Distended Extremities: Edema Skin: Ulcer/ Wound - reviewed photos Vital Signs Temp Pulse Resp BP Pulse Ox 97.0 F L 72 18 183/86 H 94 10/07/18 08:00 10/07/18 08:00 10/07/18 08:00 10/07/18 08:00 10/07/18 08:19 Oxygen Flow Rate (L/min) 3 Oxygen Delivery Method Nasal Cannula Weight: 83 kg Body Mass Index (BMI) 32.4 Finger Stick Blood Glucose 165 Intake and Output for Last 24 Hours 10/05/18 10/06/18 10/07/18 23:59 23:59 23:59 Intake Total 5206.7 / 5206.7 2682.8 / 2682.8 659.4 / 659.4 Output Total 1925 / 1925 2650 / 2650 625 / 625 Balance 3281.7 / 3281.7 32.8 / 32.8 34.4 / 34.4 Microbiology Past 72 Hours 10/04/18 12:10 Gram Stain - Final Wound - Sacral Wound Culture - Preliminary Klebsiella pneumoniae sp pneum Acinetobacter baumannii Escherichia coli Staphylococcus haemolyticus Corynebacterium striatum Anaerobic Culture - Preliminary Checking for anaerobes, further studies to follow. 10/04/18 08:05 Urine Culture - Final Urine Catheter - Catheter GNR lactose transmission maintenance supervisor GNR lactose transmission maintenance supervisor#2 Gram positive organism Gram positive organism#2 Yeast Like Organism 10/04/18 07:45 Blood Culture - Preliminary Blood Culture (Wb) - Left Forearm No growth in 48 hours. 10/04/18 07:10 Bacteria Detection (PCR) - Final Blood Culture (Wb) - Central Line Enterococcus faecium Monika/vanB Resistance Marker Blood Culture - Final Vancomycin Resist. E. faecium 10/04/18 08:56 Respiratory Panel (PCR) - Final Mucosa - Nasopharyngeal 10/04/18 08:50 Influenza Types A,B Direct FA (YANCY) - Final Mucosa - Nose 10/04/18 08:35 Legionella Antigen - Final Urine Catheter - Catheter 10/04/18 08:35 Streptococcus pneumoniae Antigen (M - Final Urine Catheter - Catheter Laboratory Tests Past 24 Hrs 10/07/18 10/07/18 10/07/18 05:47 05:47 05:47 WBC 6.1 RBC 2.93 L Hgb 9.2 L Hct 29.3 L MCV 100.0 H MCH 31.4 MCHC 31.4 L RDW 15.0 H RDW Differential 52.6 H Plt Count 275 MPV 8.4 PT 32.3 H INR 3.1 Sodium 144 Potassium 3.7 Chloride 111 H Carbon Dioxide 25.0 Anion Gap 8 BUN 29 H Creatinine 0.39 L Estim Creat Clear Calc 43.92 Est GFR (MDRD) Af Amer 207 Est GFR (MDRD) Non-Af 171 BUN/Creatinine Ratio 73.6 H Glucose 91 Calcium 8.3 L POC Glucose 10/07/18 10/07/18 10/06/18 11:52 06:55 22:01 POC Glucose 81 81 160 H 10/06/18 16:11 POC Glucose 161 H Medical Necessity - Tobacco Use Smoking Status: Former smoker Route of nutrition/ use of supplements: [] Nutritional Intake: [] IV Site: [] Allen Catheter: [] - Assessment/Plan Antibiotics: [] Assessment/Plan: [] VRE bacteremia associated with picc - picc removal today. New picc placed at same time. Will check repeat bcx. Continue dapto at 8mg/kg qday. Clinically much improved. CK normal on last check. CT does not show any intra-abd abscess. TTE pending. May need ERNESTO this admit depending on goals of care. 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 Wound cx here with mild purulence and growth of klebs, ESBL ecoli, CoNS, and AcB. On zosyn. Will talk with pharmacy to see if we can add oral minocycline which has helped for the AcB in the past and may still be effective. Will follow, d/w Dr. Alvarez and wound care
--- NOTE | 2018-10-07 14:25 | PCM.PROGNOTE ---
<Galina Balderas - Last Filed: 10/07/18 14:32> Patient Problems: Active and Suspected Problems (Last Reviewed 05/04/18 @ 02:22 by Lorne Holder MD) Sepsis (Acute) Subjective: Patient seen and examined. No acute events overnight. Patient denies current complaints. Discussed with patient palliative/hospice services. She is open to this however once to see what infectious disease recommends regarding prognosis. Denies current complaints. - Physical Exam General: Alert, Oriented x3, Cooperative HEENT: Atraumatic, PERRLA, EOMI, Normocephalic Neck: Supple, No JVD, Negative Carotid Bruits Lungs: Clear to auscultation, Diminished Cardiovascular: Regular rate, Regular Rhythm, Normal S1, Normal S2, No murmurs Abdomen: Bowel Sounds Present, Soft, Non Tender, Non-Distended, Obese Extremities: No clubbing, No cyanosis, No edema, Capillary Refill Less than 3 Seconds Skin: - - Chronic sacral ulcer, dressing intact. Left lower extremity dressings clean dry and intact. Left hand and wrist skin tears. Musculoskeletal: No Tenderness to Palpation of Joints or Extremities Neurological: Cranial nerves II-XII grossly intact, Motor Exam 5/5 strength throughout Psych/Mental Status: Normal Affect, Appropriate Vital Signs Temp Pulse Resp BP Pulse Ox 97.0 F L 72 18 183/86 H 94 10/07/18 08:00 10/07/18 08:00 10/07/18 08:00 10/07/18 08:00 10/07/18 08:19 Oxygen Flow Rate (L/min) 3 Oxygen Delivery Method Nasal Cannula Weight: 182 lb 15.739 oz Body Mass Index (BMI) 32.4 Finger Stick Blood Glucose 165 Intake and Output for Last 24 Hours 10/05/18 10/06/18 10/07/18 23:59 23:59 23:59 Intake Total 5206.7 / 5206.7 2682.8 / 2682.8 659.4 / 659.4 Output Total 1925 / 1925 2650 / 2650 625 / 625 Balance 3281.7 / 3281.7 32.8 / 32.8 34.4 / 34.4 Microbiology Past 72 Hours 10/04/18 12:10 Gram Stain - Final Wound - Sacral Wound Culture - Preliminary Klebsiella pneumoniae sp pneum Acinetobacter baumannii Escherichia coli Staphylococcus haemolyticus Corynebacterium striatum Anaerobic Culture - Preliminary Checking for anaerobes, further studies to follow. 10/04/18 08:05 Urine Culture - Final Urine Catheter - Catheter GNR lactose document management consultant GNR lactose document management consultant#2 Gram positive organism Gram positive organism#2 Yeast Like Organism 10/04/18 07:45 Blood Culture - Preliminary Blood Culture (Wb) - Left Forearm No growth in 48 hours. 10/04/18 07:10 Bacteria Detection (PCR) - Final Blood Culture (Wb) - Central Line Enterococcus faecium Monika/vanB Resistance Marker Blood Culture - Final Vancomycin Resist. E. faecium 10/04/18 08:56 Respiratory Panel (PCR) - Final Mucosa - Nasopharyngeal Laboratory Tests Past 24 Hrs 10/07/18 10/07/18 10/07/18 05:47 05:47 05:47 WBC 6.1 RBC 2.93 L Hgb 9.2 L Hct 29.3 L MCV 100.0 H MCH 31.4 MCHC 31.4 L RDW 15.0 H RDW Differential 52.6 H Plt Count 275 MPV 8.4 PT 32.3 H INR 3.1 Sodium 144 Potassium 3.7 Chloride 111 H Carbon Dioxide 25.0 Anion Gap 8 BUN 29 H Creatinine 0.39 L Estim Creat Clear Calc 43.92 Est GFR (MDRD) Af Amer 207 Est GFR (MDRD) Non-Af 171 BUN/Creatinine Ratio 73.6 H Glucose 91 Calcium 8.3 L POC Glucose 10/07/18 10/07/18 10/06/18 11:52 06:55 22:01 POC Glucose 81 81 160 H 10/06/18 16:11 POC Glucose 161 H Medical Necessity - Tobacco Use Smoking Status: Former smoker Assessment/Plan All Active Problems (Last Reviewed 05/04/18 @ 02:22 by Lorne Holder MD) Sepsis (Acute) Sepsis associated hypotension (Acute) UTI (urinary tract infection) (Acute) Open wound of left thigh (Acute) Open wound of left lower extremity (Acute) Skin necrosis (Acute) Hematoma (Resolved) Cellulitis of right foot (Resolved) Abscess of toe of right foot (Acute) Infectious arthritis (Acute) Hypoxia (Acute) Suspected sleep apnea (Acute) 1. Acute sepsis secondary to enterococcus faecium/VRE bacteremia with suspected multi source including UTI/central line/sacral wound-ID following. ID suspecting PICC line source. Started on daptomycin 8 mg/kg and IV zosyn. . Follow labs. PICC line removed today. PICC sent for cultures. Repeat blood cultures pending. ID recommending TTE and abdomen/pelvic CT w/wo contrast if family wishes to continue aggressive treatment. CT does not show intra-abdominal abscess. Wound culture preliminary showing multiple organisms including Klebsiella, Acinetobacter, E. coli, Staphylococcus hemolyticus, Corynebacterium. Urine culture growing multiple organisms, preliminary gram-positive, GNR lactose document management consultant, yeastlike organism. 2. Acute on chronic hypoxic and hypercarbic respiratory failure-patient has recently been using supplemental oxygen at [facility]. Chest x-ray unremarkable. Influenza a and respiratory panel negative. Suspect respiratory failure due to increased metabolic demands secondary to #1. Continue to treat underlying infectious process. Continue supplement oxygen to maintain O2 at or above 90%. Avoid sedating regimen. Albuterol DuoNeb aerosol. BiPAP nightly and with naps. Respiratory status complicated by obesity hypoventilation syndrome, chronic COPD, ELDER. 3. Acute metabolic encephalopathy secondary to #1/#2-improved. Continue treatment as noted above. 4. Chronic stage III coccyx decubital ulcer, present on admission-patient underwent debridement in the past followed by LTAC stay which she was discharge to [facility] 09/09/18. Wound RN consult. Dressing changes per orders. Wound culture preliminary showing multiple organisms including Klebsiella, Acinetobacter, E. coli, Staphylococcus hemolyticus, Corynebacterium. 5. Acute on chronic recurrent UTI with chronic conroy-history of cultures positive for E. coli, Klebsiella, +ESBL. Urine culture pending. Continue antibiotics per #1. 6. Chronic iron deficiency anemia, anemia of chronic disease-Stable. Continue iron supplementation. 4. History of left upper extremity DVT, February 2018-continue Coumadin. 5. CAD status post three-vessel CABG-Continue Plavix, carvedilol, Coumadin. 6. Hypertension-stable, continue home regimen. 7. Hyperlipidemia-continue statin. 8. Type 2 diabetes mellitus-hold home oral regimen. Accu-Cheks before meals at bedtime with sliding scale insulin. 9. Diabetic neuropathy-continue home gabapentin regimen. 10. Chronic COPD/asthma-DuoNeb aerosols as needed. Continue home Singulair regimen. 11. Tobacco dependence-encourage smoking cessation. 12. Obstructive sleep apnea-continue BIPAP nightly. 13. GERD-continue PPI. DVT prophylaxis-coumadin Discharge planning: Discussed with patient palliative/hospice services. She is going to think about this, will discuss further. This patient was seen by LUCIE Jim under the supervision of Dr. Alvarez. <Han Alvarez F - Last Filed: 10/07/18 16:29> - Physical Exam Vital Signs Temp Pulse Resp BP Pulse Ox 97.0 F L 69 18 183/86 H 94 10/07/18 08:00 10/07/18 15:00 10/07/18 08:00 10/07/18 08:00 10/07/18 08:19 Oxygen Flow Rate (L/min) 3 Oxygen Delivery Method Nasal Cannula Weight: 182 lb 15.739 oz Body Mass Index (BMI) 32.4 Finger Stick Blood Glucose 165 Intake and Output for Last 24 Hours 10/05/18 10/06/18 10/07/18 23:59 23:59 23:59 Intake Total 5206.7 / 5206.7 2682.8 / 2682.8 659.4 / 659.4 Output Total 1925 / 1925 2650 / 2650 625 / 625 Balance 3281.7 / 3281.7 32.8 / 32.8 34.4 / 34.4 Microbiology Past 72 Hours 10/07/18 12:05 Gram Stain - Final Other - Pic 10/04/18 12:10 Gram Stain - Final Wound - Sacral Wound Culture - Preliminary Klebsiella pneumoniae sp pneum Acinetobacter baumannii Escherichia coli Staphylococcus haemolyticus Corynebacterium striatum Anaerobic Culture - Preliminary Checking for anaerobes, further studies to follow. 10/04/18 08:05 Urine Culture - Final Urine Catheter - Catheter GNR lactose document management consultant GNR lactose document management consultant#2 Gram positive organism Gram positive organism#2 Yeast Like Organism 10/04/18 07:45 Blood Culture - Preliminary Blood Culture (Wb) - Left Forearm No growth in 48 hours. 10/04/18 07:10 Bacteria Detection (PCR) - Final Blood Culture (Wb) - Central Line Enterococcus faecium Monika/vanB Resistance Marker Blood Culture - Final Vancomycin Resist. E. faecium 10/04/18 08:56 Respiratory Panel (PCR) - Final Mucosa - Nasopharyngeal Laboratory Tests Past 24 Hrs 10/07/18 10/07/1810/07/19 05:47 05:47 05:47 WBC 6.1 RBC 2.93 L Hgb 9.2 L Hct 29.3 L MCV 100.0 H MCH 31.4 MCHC 31.4 L RDW 15.0 H RDW Differential 52.6 H Plt Count 275 MPV 8.4 PT 32.3 H INR 3.1 Sodium 144 Potassium 3.7 Chloride 111 H Carbon Dioxide 25.0 Anion Gap 8 BUN 29 H Creatinine 0.39 L Estim Creat Clear Calc 43.92 Est GFR (MDRD) Af Amer 207 Est GFR (MDRD) Non-Af 171 BUN/Creatinine Ratio 73.6 H Glucose 91 Calcium 8.3 L POC Glucose 10/07/18 10/07/18 10/06/18 11:52 06:55 22:01 POC Glucose 81 81 160 H 10/06/18 16:11 POC Glucose 161 H Code Visit Addendum: Dr. Alvarez I personally examined the patient and reviewed the chart. I agree with the above. 68-year-old female with an extensive past medical history, presenting with multiple non-healing wounds on her sternum from her previous sternotomy, as well as her buttock. Cultures from these wounds are growing Acinetobacter as well as a resistant E. coli and a Klebsiella. Blood cultures on 10/04/2018 grew VRE. She had her PICC line replaced and her old removed and the tip sent for culture and if she is currently on daptomycin and Zosyn per infectious disease. She will likely need long-term antibiotics as well as wound care and given her other chronic comorbidities she is unlikely to achieve any meaningful healing. For the moment we will plan to continue IV antibiotics via PICC and monitor for clearance and improvement of infections [facility]. Inpatient E&M: 61380 Subs Hosp L2
--- NOTE | 2018-10-07 14:31 | PN_ITS ---
<Galina Balderas - Last Filed: 10/07/18 14:32> Patient Problems: Active and Suspected Problems (Last Reviewed 05/04/18 @ 02:22 by Lorne Holder MD) Sepsis (Acute) Subjective: Patient seen and examined. No acute events overnight. Patient denies current complaints. Discussed with patient palliative/hospice services. She is open to this however once to see what infectious disease recommends regarding prognosis. Denies current complaints. - Physical Exam General: Alert, Oriented x3, Cooperative HEENT: Atraumatic, PERRLA, EOMI, Normocephalic Neck: Supple, No JVD, Negative Carotid Bruits Lungs: Clear to auscultation, Diminished Cardiovascular: Regular rate, Regular Rhythm, Normal S1, Normal S2, No murmurs Abdomen: Bowel Sounds Present, Soft, Non Tender, Non-Distended, Obese Extremities: No clubbing, No cyanosis, No edema, Capillary Refill Less than 3 Seconds Skin: - - Chronic sacral ulcer, dressing intact. Left lower extremity dressings clean dry and intact. Left hand and wrist skin tears. Musculoskeletal: No Tenderness to Palpation of Joints or Extremities Neurological: Cranial nerves II-XII grossly intact, Motor Exam 5/5 strength throughout Psych/Mental Status: Normal Affect, Appropriate Vital Signs Temp Pulse Resp BP Pulse Ox 97.0 F L 72 18 183/86 H 94 10/07/18 08:00 10/07/18 08:00 10/07/18 08:00 10/07/18 08:00 10/07/18 08:19 Oxygen Flow Rate (L/min) 3 Oxygen Delivery Method Nasal Cannula Weight: 182 lb 15.739 oz Body Mass Index (BMI) 32.4 Finger Stick Blood Glucose 165 Intake and Output for Last 24 Hours 10/05/18 10/06/18 10/07/18 23:59 23:59 23:59 Intake Total 5206.7 / 5206.7 2682.8 / 2682.8 659.4 / 659.4 Output Total 1925 / 1925 2650 / 2650 625 / 625 Balance 3281.7 / 3281.7 32.8 / 32.8 34.4 / 34.4 Microbiology Past 72 Hours 10/04/18 12:10 Gram Stain - Final Wound - Sacral Wound Culture - Preliminary Klebsiella pneumoniae sp pneum Acinetobacter baumannii Escherichia coli Staphylococcus haemolyticus Corynebacterium striatum Anaerobic Culture - Preliminary Checking for anaerobes, further studies to follow. 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 10/04/18 07:10 Bacteria Detection (PCR) - Final Blood Culture (Wb) - Central Line Enterococcus faecium Monika/vanB Resistance Marker Blood Culture - Final Vancomycin Resist. E. faecium 10/04/18 08:56 Respiratory Panel (PCR) - Final Mucosa - Nasopharyngeal Laboratory Tests Past 24 Hrs 10/07/18 10/07/18 10/07/18 05:47 05:47 05:47 WBC 6.1 RBC 2.93 L Hgb 9.2 L Hct 29.3 L MCV 100.0 H MCH 31.4 MCHC 31.4 L RDW 15.0 H RDW Differential 52.6 H Plt Count 275 MPV 8.4 PT 32.3 H INR 3.1 Sodium 144 Potassium 3.7 Chloride 111 H Carbon Dioxide 25.0 Anion Gap 8 BUN 29 H Creatinine 0.39 L Estim Creat Clear Calc 43.92 Est GFR (MDRD) Af Amer 207 Est GFR (MDRD) Non-Af 171 BUN/Creatinine Ratio 73.6 H Glucose 91 Calcium 8.3 L POC Glucose 10/07/18 10/07/18 10/06/18 11:52 06:55 22:01 POC Glucose 81 81 160 H 10/06/18 16:11 POC Glucose 161 H Medical Necessity - Tobacco Use Smoking Status: Former smoker Assessment/Plan All Active Problems (Last Reviewed 05/04/18 @ 02:22 by Lorne Holder MD) Sepsis (Acute) Sepsis associated hypotension (Acute) UTI (urinary tract infection) (Acute) Open wound of left thigh (Acute) Open wound of left lower extremity (Acute) Skin necrosis (Acute) Hematoma (Resolved) Cellulitis of right foot (Resolved) Abscess of toe of right foot (Acute) Infectious arthritis (Acute) Hypoxia (Acute) Suspected sleep apnea (Acute) 1. Acute sepsis secondary to enterococcus faecium/VRE bacteremia with suspected multi source including UTI/central line/sacral wound-ID following. ID suspecting PICC line source. Started on daptomycin 8 mg/kg and IV zosyn. . Follow labs. PICC line removed today. PICC sent for cultures. Repeat blood cultures pending. ID recommending TTE and abdomen/pelvic CT w/wo contrast if family wishes to continue aggressive treatment. CT does not show intra- abdominal abscess. Wound culture preliminary showing multiple organisms including Klebsiella, Acinetobacter, E. coli, Staphylococcus hemolyticus, Cor ynebacterium. 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 2. Acute on chronic hypoxic and hypercarbic respiratory failure-patient has recently been using supplemental oxygen at [facility]. Chest x-ray unremarkable. Influenza a and respiratory panel negative. Suspect respiratory failure due to increased metabolic demands secondary to #1. Continue to treat underlying infectious process. Continue supplement oxygen to maintain O2 at or above 90%. Avoid sedating regimen. Albuterol DuoNeb aerosol. BiPAP nightly and with naps. Respiratory status complicated by obesity hypoventilation syndrome, chronic COPD, ELDER. 3. Acute metabolic encephalopathy secondary to #1/#2-improved. Continue treatment as noted above. 4. Chronic stage III coccyx decubital ulcer, present on admission-patient underwent debridement in the past followed by LT[facility] stay which she was discharge to [facility] 09/09/18. Wound RN consult. Dressing changes per orders. Wound culture preliminary showing multiple organisms including Klebsiella, Acinetobacter, E. coli, Staphylococcus hemolyticus, Corynebacterium. 5. Acute on chronic recurrent UTI with chronic conroy-history of cultures positive for E. coli, Klebsiella, +ESBL. Urine culture pending. Continue antibiotics per #1. 6. Chronic iron deficiency anemia, anemia of chronic disease-Stable. Continue iron supplementation. 4. History of left upper extremity DVT, February 2018-continue Coumadin. 5. CAD status post three-vessel CABG-Continue Plavix, carvedilol, Coumadin. 6. Hypertension-stable, continue home regimen. 7. Hyperlipidemia-continue statin. 8. Type 2 diabetes mellitus-hold home oral regimen. Accu-Cheks before meals at bedtime with sliding scale insulin. 9. Diabetic neuropathy-continue home gabapentin regimen. 10. Chronic COPD/asthma-DuoNeb aerosols as needed. Continue home Singulair regimen. 11. Tobacco dependence-encourage smoking cessation. 12. Obstructive sleep apnea-continue BIPAP nightly. 13. GERD-continue PPI. DVT prophylaxis-coumadin Discharge planning: Discussed with patient palliative/hospice services. She is going to think about this, will discuss further. This patient was seen by LUCIE Jim under the supervision of Dr. Alvarez. <Han Alvarez F - Last Filed: 10/07/18 16:29> - Physical Exam Vital Signs Temp Pulse Resp BP Pulse Ox 97.0 F L 69 18 183/86 H 94 10/07/18 08:00 10/07/18 15:00 10/07/18 08:00 10/07/18 08:00 10/07/18 08:19 Oxygen Flow Rate (L/min) 3 Oxygen Delivery Method Nasal Cannula Weight: 182 lb 15.739 oz Body Mass Index (BMI) 32.4 Finger Stick Blood Glucose 165 Intake and Output for Last 24 Hours 10/05/18 10/06/18 10/07/18 23:59 23:59 23:59 Intake Total 5206.7 / 5206.7 2682.8 / 2682.8 659.4 / 659.4 Output Total 1925 / 1925 2650 / 2650 625 / 625 Balance 3281.7 / 3281.7 32.8 / 32.8 34.4 / 34.4 Microbiology Past 72 Hours 10/07/18 12:05 Gram Stain - Final Other - Pic 10/04/18 12:10 Gram Stain - Final Wound - Sacral Wound Culture - Preliminary Klebsiella pneumoniae sp pneum Acinetobacter baumannii Escherichia coli Staphylococcus haemolyticus Corynebacterium striatum Anaerobic Culture - Preliminary Checking for anaerobes, further studies to follow. 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 10/04/18 07:10 Bacteria Detection (PCR) - Final Blood Culture (Wb) - Central Line Enterococcus faecium Monika/vanB Resistance Marker Blood Culture - Final Vancomycin Resist. E. faecium 10/04/18 08:56 Respiratory Panel (PCR) - Final Mucosa - Nasopharyngeal Laboratory Tests Past 24 Hrs 01/10/07/18 10/07/18 05:47 05:47 05:47 WBC 6.1 RBC 2.93 L Hgb 9.2 L Hct 29.3 L MCV 100.0 H MCH 31.4 MCHC 31.4 L RDW 15.0 H RDW Differential 52.6 H Plt Count 275 MPV 8.4 PT 32.3 H INR 3.1 Sodium 144 Potassium 3.7 Chloride 111 H Carbon Dioxide 25.0 Anion Gap 8 BUN 29 H Creatinine 0.39 L Estim Creat Clear Calc 43.92 Est GFR (MDRD) Af Amer 207 Est GFR (MDRD) Non-Af 171 BUN/Creatinine Ratio 73.6 H Glucose 91 Calcium 8.3 L POC Glucose 10/07/18 10/07/18 10/06/18 11:52 06:55 22:01 POC Glucose 81 81 160 H 10/06/18 16:11 POC Glucose 161 H Code Visit Addendum: Dr. Alvarez I personally examined the patient and reviewed the chart. I agree with the above . 68-year-old female with an extensive past medical history, presenting with multiple non-healing wounds on her sternum from her previous sternotomy, as well as her buttock. Cultures from these wounds are growing Acinetobacter as well as a resistant E. coli and a Klebsiella. Blood cultures on 10/04/2018 grew VRE. She had her PICC line replaced and her old removed and the tip sent for culture and if she is currently on daptomycin and Zosyn per infectious disease. She will likely need long-term antibiotics as well as wound care and given her other chronic comorbidities she is unlikely to achieve any meaningful healing. For the moment we will plan to continue IV antibiotics via PICC and monitor for clearance and improvement of infections prior to discharging back to the [facility] facility. Inpatient E&M: 06074 Subs Hosp L2
--- NOTE | 2018-10-07 14:54 | NURSING ---
venus in place
[2018-10-07] MEDS: Acetaminophen 325 MG Tablet 650 MG PO (15:03)
--- NOTE | 2018-10-07 15:24 | NURSING ---
wound photo: left lower leg (anterior/medial)
--- NOTE | 2018-10-07 15:25 | NURSING ---
wound photo: left lower leg (anterior/lateral)
--- NOTE | 2018-10-07 15:26 | NURSING ---
wound photo: left lower leg (posterior)
--- NOTE | 2018-10-07 15:27 | NURSING ---
wound photo: sacrum
[2018-10-07] MEDS: Ipratropium/Albuterol Sulfate 3 ML AMPUL.NEB INHALATION (15:36)
[2018-10-07] MEDS: oxyCODONE 5 MG Tablet PO ×2 (16:05→22:41)
[2018-10-07] MEDS: Minocycline 100 MG Capsule 200 MG PO (16:06)
[2018-10-07 17:31] LABS: Bedside Glucose 63 mg/dL (70-110)
[2018-10-07 18:21] LABS: Bedside Glucose 95 mg/dL (70-110)
[2018-10-07] MEDS: MELATONIN 3 MG TABLET PO (21:06)
[2018-10-07] MEDS: Mirtazapine 15 MG Tablet 7.5 MG PO (21:06)
[2018-10-07 23:06] LABS: Bedside Glucose 143 mg/dL (70-110)
[2018-10-08 02:58] VITALS: PULSE 64
[2018-10-08 03:05] VITALS: BP 119/59; PULSE 65; RESP 22; TEMP 36.8; O2SAT 99
[2018-10-08] MEDS: 0.9% Normal Saline 1,000 ML 100 ML IV (03:26)
[2018-10-08 04:48] LABS: Hematocrit 29.8 % (37-47); Hemoglobin 9.1 g/dl (12.0-15.0); Mean Corp Hgb Conc 30.5 g/gl (32-36); Mean Corpuscular Volume 101.4 fL (81-99); Mean Platelet Vol. 8.3 fl (6.2-12.0); Platelet Count 257 K/mm3 (150-450); RBC Distribution Width CV 15.4 % (11.6-14.6); RBC Distribution Width SD 54.5 fl (35.1-43.9); Red Blood Count 2.94 M/mm3 (4.2-5.4); White Blood Count 5.4 K/mm3 (4.4-11.0)
[2018-10-08 04:57] LABS: Anion Gap 5 (5-15); BUN 30 mg/dL (7-18); BUN/Creat Ratio 82.2 RATIO (10-20); Calcium,Total 8.2 mg/dL (8.5-10.1); Chloride 110 mmol/L (98-107); Creatinine, Serum 0.36 mg/dL (0.55-1.02); EST Glomerular Filtration Rate 187 mL/min (>60); Est Glom Filt Rate - Afr Amer 226 mL/min (>60); Estimated Creatinine Clearance 43.92 ml/min; Glucose 102 mg/dL (74-106); Potassium 3.8 mmol/L (3.5-5.1); Sodium Level 144 mmol/L (136-145)
[2018-10-08 04:58] LABS: International Normalized Ratio 3.8
[2018-10-08 04:59] LABS: Scan Indicated on CBC? Y/N NO
[2018-10-08] MEDS: 0.9% NaCl PICC Flush IV ×2 (05:01→14:52)
[2018-10-08] MEDS: Piperacil/Tazobactam 3.375 GM/50 ML ML IV ×2 (05:23→13:33)
[2018-10-08] MEDS: oxyCODONE 5 MG Tablet PO ×2 (05:23→13:20)
--- NOTE | 2018-10-08 05:32 | CPS ---
refused all night
[2018-10-08 06:53] VITALS: PULSE 61
[2018-10-08 06:55] LABS: Bedside Glucose 84 mg/dL (70-110)
--- NOTE | 2018-10-08 09:51 | PCM.PROGNOTE ---
Patient Problems: Active and Suspected Problems (Last Reviewed 05/04/18 @ 02:22 by Lorne Holder MD) Sepsis (Acute) Subjective: Patient did okay overnight from a respiratory standpoint. Patient did refuse placement of BiPAP therapy. Patient reports no subjective change compared to previous. Objective: Echocardiogram showed an EF of 60% with no evidence of mass or vegetation. - Physical Exam General: Alert, Oriented x3, Cooperative, No apparent distress, - - Obese. No conversational dyspnea noted. HEENT: Atraumatic, PERRLA, EOMI, Normocephalic, - - Nasal cannula in place Oral: Moist Mucosa, No Gingival or Mucosal Lesions/ Ulcerations, - - Crowded posterior pharynx Neck: Supple, No Nodes, Trachea Midline Lungs: No rhonchi, No wheeze, No rales, Diminished Cardiovascular: Regular rate, Regular Rhythm, Normal S1, Normal S2, No murmurs, No rub noted, No Gallop Abdomen: Bowel Sounds Present, Soft, Non Tender, Obese Extremities: No cyanosis, Edema Skin: - - No significant change compared to previous Musculoskeletal: No Tenderness to Palpation of Joints or Extremities Lymphatic: No Cervical, Supraclavicular, or Inguinal Adenopathy Neurological: Cranial nerves II-XII grossly intact, Neuro grossly intact Psych/Mental Status: Appropriate, Flat Affect Vital Signs Temp Pulse Resp BP Pulse Ox 36.8 C 61 22 H 119/59 L 99 10/08/18 03:05 10/08/18 06:53 10/08/18 03:05 10/08/18 03:05 10/08/18 03:05 Oxygen Flow Rate (L/min) 3 Oxygen Delivery Method Nasal Cannula Weight: 83 kg Body Mass Index (BMI) 32.4 Finger Stick Blood Glucose 165 Intake and Output for Last 24 Hours 10/06/18 10/07/18 10/08/18 23:59 23:59 23:59 Intake Total 2682.8 / 2682.8 2476.4 / 2476.4 1740 / 1740 Output Total 2650 / 2650 1600 / 1600 600 / 600 Balance 32.8 / 32.8 876.4 / 876.4 1140 / 1140 Microbiology Past 72 Hours 10/04/18 12:10 Gram Stain - Final Wound - Sacral Wound Culture - Final Klebsiella pneumoniae sp pneum Acinetobacter baumannii Escherichia coli Staphylococcus haemolyticus Corynebacterium striatum Anaerobic Culture - Preliminary Checking for anaerobes, further studies to follow. 10/07/18 12:05 Gram Stain - Final Other - Pic 10/04/18 08:05 Urine Culture - Final Urine Catheter - Catheter GNR lactose systems analysis manager GNR lactose systems analysis manager#2 Gram positive organism Gram positive organism#2 Yeast Like Organism 10/04/18 07:45 Blood Culture - Preliminary Blood Culture (Wb) - Left Forearm No growth in 48 hours. 10/04/18 07:10 Bacteria Detection (PCR) - Final Blood Culture (Wb) - Central Line Enterococcus faecium Monika/vanB Resistance Marker Blood Culture - Final Vancomycin Resist. E. faecium Laboratory Tests Past 24 Hrs 10/08/18 10/08/18 10/08/18 04:30 04:30 04:30 WBC 5.4 RBC 2.94 L Hgb 9.1 L Hct 29.8 L MCV 101.4 H MCH 31.0 MCHC 30.5 L RDW 15.4 H RDW Differential 54.5 H Plt Count 257 MPV 8.3 PT 38.0 H INR 3.8 H* Sodium 144 Potassium 3.8 Chloride 110 H Carbon Dioxide 29.0 Anion Gap 5 BUN 30 H Creatinine 0.36 L Estim Creat Clear Calc 43.92 Est GFR (MDRD) Af Amer 226 Est GFR (MDRD) Non-Af 187 BUN/Creatinine Ratio 82.2 H Glucose 102 Calcium 8.2 L POC Glucose 10/08/18 10/07/18 10/07/18 06:50 20:48 18:07 POC Glucose 84 143 H 95 10/07/18 10/07/18 17:16 11:52 POC Glucose 63 L 81 Medical Necessity - Tobacco Use Smoking Status: Former smoker Assessment/Plan All Active Problems (Last Reviewed 05/04/18 @ 02:22 by Lorne Holder MD) Sepsis (Acute) Sepsis associated hypotension (Acute) UTI (urinary tract infection) (Acute) Open wound of left thigh (Acute) Open wound of left lower extremity (Acute) Skin necrosis (Acute) Hematoma (Resolved) Cellulitis of right foot (Resolved) Abscess of toe of right foot (Acute) Infectious arthritis (Acute) Hypoxia (Acute) Suspected sleep apnea (Acute) RECOMMENDATIONS: 1. Continue PAP therapy with naps and nightly. 2. Recommend continuation of antibiotics under the discretion of infectious diseases. 3. Wean supplemental oxygen as tolerated. Encourage incentive spirometer use. 4. Avoid sedating medications. 5. Continue scheduled bronchodilators. IMPRESSIONS: 1. Acute hypoxemic and hypercarbic respiratory failure While the patient does have known mild COPD, obstructive sleep apnea and possible obesity hypoventilation, she was not previously known to require supplemental oxygen. Stressed to the patient the importance of using BiPAP to assist in recruitment and to address probable sleep apnea to aid in recovery. Patient voiced understanding, but does not appear to be motivated to use it at this time. 2. Sepsis with sources that include urinary tract and necrotic soft tissue ulcers The patient has been placed on broad-spectrum antibiotics. She is currently hemodynamically stable. She does have a positive blood culture for VRE. Continue antimicrobial coverage per infectious diseases recommendations. Patient may require a ERNESTO if aggressive measures are continued. 3. Metabolic encephalopathy Resolved. She did appear to be at baseline mentation during my evaluation. Likely secondary to underlying infectious processes along with relative state of hypercarbia on presentation. The patient has responded to noninvasive positive pressure ventilation and antibiotics accordingly. Would continue to hold sedating medications if possible. Delirium protocol. 4. Personal history of mild obstructive lung disease and obstructive sleep apnea Continue scheduled bronchodilators and noninvasive positive pressure ventilation as noted above. 5. Coronary artery disease status post CABG/obesity/neuropathy/chronic pain syndrome/diabetes mellitus/chronic anticoagulation Complicates care, management, recovery and prognosis. Recommend holding sedating medications, including transdermal fentanyl patch. Agree with Lantus and sliding scale insulin coverage. 6. CODE STATUS DNR CCA without intubation. Code Visit Inpatient E&M: 52365 Subs Hosp L2
--- NOTE | 2018-10-08 10:18 | PCM.PN.ID ---
Patient Problems: Active and Suspected Problems (Last Reviewed 05/04/18 @ 02:22 by Lorne Holder MD) Sepsis (Acute) Subjective: Feeling better, no fever, no abd pain. - Physical Exam General: Alert, Cooperative, No apparent distress Lungs: Clear to auscultation, Normal air movement Cardiovascular: Regular rate, Regular Rhythm Abdomen: Soft, Non Tender, Non-Distended, - - ostomy in place Skin: Ulcer/ Wound - reviewed photos Vital Signs Temp Pulse Resp BP Pulse Ox 98.2 F 61 22 H 119/59 L 99 10/08/18 03:05 10/08/18 06:53 10/08/18 03:05 10/08/18 03:05 10/08/18 03:05 Oxygen Flow Rate (L/min) 3 Oxygen Delivery Method Nasal Cannula Weight: 83 kg Body Mass Index (BMI) 32.4 Finger Stick Blood Glucose 165 Intake and Output for Last 24 Hours 10/06/18 10/07/18 10/08/18 23:59 23:59 23:59 Intake Total 2682.8 / 2682.8 2476.4 / 2476.4 1740 / 1740 Output Total 2650 / 2650 1600 / 1600 600 / 600 Balance 32.8 / 32.8 876.4 / 876.4 1140 / 1140 Microbiology Past 72 Hours 10/04/18 12:10 Gram Stain - Final Wound - Sacral Wound Culture - Final Klebsiella pneumoniae sp pneum Acinetobacter baumannii Escherichia coli Staphylococcus haemolyticus Corynebacterium striatum Anaerobic Culture - Preliminary Checking for anaerobes, further studies to follow. 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 10/04/18 07:10 Bacteria Detection (PCR) - Final Blood Culture (Wb) - Central Line Enterococcus faecium Monika/vanB Resistance Marker Blood Culture - Final Vancomycin Resist. E. faecium Laboratory Tests Past 24 Hrs 10/08/18 10/08/18 10/08/18 04:30 04:30 04:30 WBC 5.4 RBC 2.94 L Hgb 9.1 L Hct 29.8 L MCV 101.4 H MCH 31.0 MCHC 30.5 L RDW 15.4 H RDW Differential 54.5 H Plt Count 257 MPV 8.3 PT 38.0 H INR 3.8 H* Sodium 144 Potassium 3.8 Chloride 110 H Carbon Dioxide 29.0 Anion Gap 5 BUN 30 H Creatinine 0.36 L Estim Creat Clear Calc 43.92 Est GFR (MDRD) Af Amer 226 Est GFR (MDRD) Non-Af 187 BUN/Creatinine Ratio 82.2 H Glucose 102 Calcium 8.2 L POC Glucose 10/08/18 10/07/18 10/07/18 06:50 20:48 18:07 POC Glucose 84 143 H 95 10/07/18 10/07/18 17:16 11:52 POC Glucose 63 L 81 Medical Necessity - Tobacco Use Smoking Status: Former smoker Route of nutrition/ use of supplements: [] Nutritional Intake: [] IV Site: [] Allen Catheter: [] - Assessment/Plan Antibiotics: [] Assessment/Plan: [] VRE bacteremia associated with picc - picc removal 10/07. New picc placed at same time. Repeat bcx neg since 10/05. Continue dapto at 8mg/kg qday. Clinically much improved. CK normal on last check. CT does not show any intra-abd abscess. TTE showed no veg. Ok for d/c back to facility on dapto with stop date 10/21/18. Weekly bmp, cbc, LFT, CK while on iv abx. Picc to be pulled when iv abx stop. 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 Wound cx here with mild purulence and growth of klebs, ESBL ecoli, CoNS, and AcB. On zosyn, added minocycline. Ok for d/c to facility with po minocycline and augmentin for 4 more weeks (assuming her klebs was sensitive to tetracycline; the micro lab will eval). Will follow, d/w case management social worker and Dr. Alvarez
--- NOTE | 2018-10-08 10:25 | PN.ID_ITS ---
Patient Problems: Active and Suspected Problems (Last Reviewed 05/04/18 @ 02:22 by Lorne Holder MD) Sepsis (Acute) Subjective: Feeling better, no fever, no abd pain. - Physical Exam General: Alert, Cooperative, No apparent distress Lungs: Clear to auscultation, Normal air movement Cardiovascular: Regular rate, Regular Rhythm Abdomen: Soft, Non Tender, Non-Distended, - - ostomy in place Skin: Ulcer/ Wound - reviewed photos Vital Signs Temp Pulse Resp BP Pulse Ox 98.2 F 61 22 H 119/59 L 99 10/08/18 03:05 10/08/18 06:53 10/08/18 03:05 10/08/18 03:05 10/08/18 03:05 Oxygen Flow Rate (L/min) 3 Oxygen Delivery Method Nasal Cannula Weight: 83 kg Body Mass Index (BMI) 32.4 Finger Stick Blood Glucose 165 Intake and Output for Last 24 Hours 10/06/18 10/07/18 10/08/18 23:59 23:59 23:59 Intake Total 2682.8 / 2682.8 2476.4 / 2476.4 1740 / 1740 Output Total 2650 / 2650 1600 / 1600 600 / 600 Balance 32.8 / 32.8 876.4 / 876.4 1140 / 1140 Microbiology Past 72 Hours 10/04/18 12:10 Gram Stain - Final Wound - Sacral Wound Culture - Final Klebsiella pneumoniae sp pneum Acinetobacter baumannii Escherichia coli Staphylococcus haemolyticus Corynebacterium striatum Anaerobic Culture - Preliminary Checking for anaerobes, further studies to follow. 10/07/18 12:05 Gram Stain - Final Other - Pic 10/04/18 08:05 Urine Culture - Final Urine Catheter - Catheter GNR lactose motion picture operator GNR lactose motion picture operator#2 Gram positive organism Gram positive organism#2 Yeast Like Organism 10/04/18 07:45 Blood Culture - Preliminary Blood Culture (Wb) - Left Forearm No growth in 48 hours. 10/04/18 07:10 Bacteria Detection (PCR) - Final Blood Culture (Wb) - Central Line Enterococcus faecium Monika/vanB Resistance Marker Blood Culture - Final Vancomycin Resist. E. faecium Laboratory Tests Past 24 Hrs 10/08/18 10/08/18 10/08/18 04:30 04:30 04:30 WBC 5.4 RBC 2.94 L Hgb 9.1 L Hct 29.8 L MCV 101.4 H MCH 31.0 MCHC 30.5 L RDW 15.4 H RDW Differential 54.5 H Plt Count 257 MPV 8.3 PT 38.0 H INR 3.8 H* Sodium 144 Potassium 3.8 Chloride 110 H Carbon Dioxide 29.0 Anion Gap 5 BUN 30 H Creatinine 0.36 L Estim Creat Clear Calc 43.92 Est GFR (MDRD) Af Amer 226 Est GFR (MDRD) Non-Af 187 BUN/Creatinine Ratio 82.2 H Glucose 102 Calcium 8.2 L POC Glucose 10/08/18 10/07/18 10/07/18 06:50 20:48 18:07 POC Glucose 84 143 H 95 10/07/18 10/07/18 17:16 11:52 POC Glucose 63 L 81 Medical Necessity - Tobacco Use Smoking Status: Former smoker Route of nutrition/ use of supplements: [] Nutritional Intake: [] IV Site: [] Allen Catheter: [] - Assessment/Plan Antibiotics: [] Assessment/Plan: [] VRE bacteremia associated with picc - picc removal 10/07. New picc placed at same time. Repeat bcx neg since 10/05. Continue dapto at 8mg/kg qday. Cli nically much improved. CK normal on last check. CT does not show any intra-abd abscess. TTE showed no veg. Ok for d/c back to facility on dapto with stop date 10/21/18. Weekly bmp, cbc, LFT, CK while on iv abx. Picc to be pulled when iv abx stop. 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 Wound cx here with mild purulence and growth of klebs, ESBL ecoli, CoNS, and AcB. On zosyn, added minocycline. Ok for d/c to facility with po minocycline and augmentin for 4 more weeks (assuming her klebs was sensitive to tetracycline; the micro lab will eval). Will follow, d/w onsite case manager and Dr. Alvarez
[2018-10-08] MEDS: Multivitamins,Therapeutic Tablet 1 TABLET PO (11:12)
[2018-10-08] MEDS: Docusate Sodium 100 MG Capsule PO (11:12)
[2018-10-08] MEDS: Folic Acid 1 MG Tablet PO (11:12)
[2018-10-08] MEDS: Ascorbic Acid 500 MG Tablet PO (11:12)
[2018-10-08] MEDS: Amiodarone 200 MG Tablet 400 MG PO (11:13)
[2018-10-08] MEDS: Polyethylene Glycol 3350 17 GM PACKET PO (11:13)
[2018-10-08] MEDS: Carvedilol 12.5 MG Tablet PO (11:13)
[2018-10-08] MEDS: guaiFENesin 1,200 MG Tablet 1200 MG PO (11:13)
[2018-10-08] MEDS: Iron Polysaccharide Complex 150 MG CAPSULE PO (11:14)
[2018-10-08] MEDS: Megestrol Acetate 400 MG/10 ML UDC PO (11:14)
[2018-10-08] MEDS: Famotidine 20 MG Tablet PO (11:14)
[2018-10-08 11:15] VITALS: BP 136/71; PULSE 65; RESP 15; TEMP 36.8; O2SAT 100
--- NOTE | 2018-10-08 11:16 | PCM.EXTCARCO ---
- Diet 10/07/18 10:23 ADA [Diet: Cardiac: Calorie-Controlled] Is pt able to select menu?: No How many daily calories?: 1800 calorie - Routine Orders/Code Status Enema Type: Fleetz Enema Frequency: Daily PRN Suppository Type: Dulcolax 10mg Suppository Frequency: Daily PRN O2 Liters per Minute: 2-4 O2 Frequency: Continuous Keep PO Greater than or Equal to (%): 90 - Ween as tolerated Routine Lab Work: CBC, BMP, INR, - - Daily INR, BMP, CBC X3 days then Q Week. [facility] - Wound(s) left barboza Wound Type: Pressure Injury right heel Wound Type: Stasis Ulcer coccyx Wound Type: Pressure Injury Dressing Change: Wet to Dry Dressing Left Medial Lower Leg Wound Type: Hematoma Dressing Change: Adaptic Left Post Calf Wound Type: Pressure Injury Dressing Change: AntiMicrobial (Aquacel AG, etc) Left Ant Barboza Wound Type: healing wound Dressing Change: Adaptic Left Inner Thigh Wound Type: healing incision Dressing Change: Adaptic Left Medial Calf Wound Type: healing incision Dressing Change: Adaptic Chest Wound Type: healing surgical incision Dressing Change: adaptic Left Hand Wound Type: Skin Tear Dressing Change: adaptic Left Wrist Wound Type: Skin Tear Dressing Change: adaptic - Suggestions for Active Care Change Position every (hours): 2 - Therapies Physical Therapy: Eval and Treat Occupational Therapy: Eval and Treat - Problem/Diagnosis (1) PICC line infection Status: Acute Current Visit: Yes (2) Sepsis Status: Acute Current Visit: Yes (3) UTI (urinary tract infection) Status: Acute Current Visit: Yes (4) Anemia Status: Chronic Current Visit: No (5) DVT (deep venous thrombosis) Status: Chronic Current Visit: No (6) CAD (coronary artery disease) Status: Chronic Current Visit: No (7) Stage IV pressure ulcer of sacral region Status: Chronic Current Visit: No (8) Obesity Status: Chronic Current Visit: No (9) Type 2 diabetes mellitus Status: Chronic Current Visit: No (10) ELDER (obstructive sleep apnea) Status: Chronic Current Visit: No (11) COPD (chronic obstructive pulmonary disease) Status: Chronic Current Visit: No (12) Hyperlipidemia Status: Chronic Current Visit: No (13) Hypertension Status: Chronic Current Visit: No - Allergies/Procedures Done in Hospital Allergies/Adverse Reactions: Allergies lisinopril Adverse Reaction (Verified 10/04/18 08:46) Other metronidazole Adverse Reaction (Verified 10/04/18 08:46) Other Procedures: 2-D Echocardiogram - Type of Care/Length of Stay Estimated LOS: More Than 30 Days Type of Care Needed: Skilled Rehab Potential: Fair Prognosis: Fair - Additional Orders/Day of Discharge Additional Orders: Hold coumadin 10/08/18 and 10/09/18. Repeat INR X3 days. INR 3.8 at discharge. Resume when less than 3. H&P will serve as current which was dated: 10/04/18 Day of Discharge: 10/08/18 - Dietary and Speech Recommendations Dietitian Recommendations/Changes: Continue cardiac/1800 calorie controlled diet - add low sodium and fluid restriction as indicated. Cont. Radames 1 pkt PO BID at [facility]. - Follow Up Care Primary Care Physician: Tong Willis MD [Primary Care Provider] - Please follow up with your Primary Care Physician in: 1 Week Please Follow Up With: Wound Center When: 1 Week Please Follow Up With: Scott Varghese DO When: Please call to arrange meeting with pt & family regarding palliative/hospic
--- NOTE | 2018-10-08 11:20 | TREXTCA.CO_ITS ---
Addendum entered and electronically signed by LUCIE Jim 10/08/18 11:50: Code Visit Add weekly LFT and CK to labs during IV daptomycin. Can discontinue following completion of IV antibiotics. Wound care: Cleanse all wounds with saline, pat dry. Adaptic to left lower leg wounds. Left hand, wrist and chest. Change Daily. Aquacel AG to sacrum daily. Cover with dry dressing. Mepilex to left post lower leg. Change every 5 days and PRN. Addendum entered and electronically signed by LUCIE Jim 10/08/18 1 1:37: Code Visit Please remove PICC line following IV antibiotic completion 10/21/2018. Original Note: - Diet 10/07/18 10:23 ADA [Diet: Cardiac: Calorie-Controlled] Is pt able to select menu?: No How many daily calories?: 1800 calorie - Routine Orders/Code Status Enema Type: Fleetz Enema Frequency: Daily PRN Suppository Type: Dulcolax 10mg Suppository Frequency: Daily PRN O2 Liters per Minute: 2-4 O2 Frequency: Continuous Keep PO Greater than or Equal to (%): 90 - Ween as tolerated Routine Lab Work: CBC, BMP, INR, - - Daily INR, BMP, CBC X3 days then Q Week. Code Status: [facility] - Wound(s) left cosme Wound Type: Pressure Injury right heel Wound Type: Stasis Ulcer coccyx Wound Type: Pressure Injury Dressing Change: Wet to Dry Dressing Left Medial Lower Leg Wound Type: Hematoma Dressing Change: Adaptic Left Post Calf Wound Type: Pressure Injury Dressing Change: AntiMicrobial (Aquacel AG, etc) Left Ant Cosme Wound Type: healing wound Dressing Change: Adaptic Left Inner Thigh Wound Type: healing incision Dressing Change: Adaptic Left Medial Calf Wound Type: healing incision Dressing Change: Adaptic Chest Wound Type: healing surgical incision Dressing Change: adaptic Left Hand Wound Type: Skin Tear Dressing Change: adaptic Left Wrist Wound Type: Skin Tear Dressing Change: adaptic - Suggestions for Active Care Change Position every (hours): 2 - Therapies Physical Therapy: Eval and Treat Occupational Therapy: Eval and Treat - Problem/Diagnosis (1) PICC line infection Status: Acute Current Visit: Yes (2) Sepsis Status: Acute Current Visit: Yes (3) UTI (urinary tract infection) Status: Acute Current Visit: Yes (4) Anemia Status: Chronic Current Visit: No (5) DVT (deep venous thrombosis) Status: Chronic Current Visit: No (6) CAD (coronary artery disease) Status: Chronic Current Visit: No (7) Stage IV pressure ulcer of sacral region Status: Chronic Current Visit: No (8) Obesity Status: Chronic Current Visit: No (9) Type 2 diabetes mellitus Status: Chronic Current Visit: No (10) ELDER (obstructive sleep apnea) Status: Chronic Current Visit: No (11) COPD (chronic obstructive pulmonary disease) Status: Chronic Current Visit: No (12) Hyperlipidemia Status: Chronic Current Visit: No (13) Hypertension Status: Chronic Current Visit: No - Allergies/Procedures Done in Hospital Allergies/Adverse Reactions: Allergies lisinopril Adverse Reaction (Verified 10/04/18 08:46) Other metronidazole Adverse Reaction (Verified 10/04/18 08:46) Other Procedures: 2-D Echocardiogram - Type of Care/Length of Stay Estimated LOS: More Than 30 Days Type of Care Needed: Skilled Rehab Potential: Fair Prognosis: Fair - Additional Orders/Day of Discharge Additional Orders: Hold coumadin 10/08/18 and 10/09/18. Repeat INR X3 days. INR 3.8 at discharge. Resume when less than 3. H&P will serve as current which was dated: 10/04/18 Day of Discharge: 10/08/18 - Dietary and Speech Recommendations Dietitian Recommendations/Changes: Continue cardiac/1800 calorie controlled diet - add low sodium and fluid restriction as indicated. Cont. Radames 1 pkt [facility] at [facility]. - Follow Up Care Primary Care Physician: Tong Willis MD [Primary Care Provider] - Please follow up with your Primary Care Physician in: 1 Week Please Follow Up With: Wound Center When: 1 Week Please Follow Up With: Scott Varghese DO When: Please call to arrange meeting with pt & family regarding palliative/hospic
--- NOTE | 2018-10-08 11:28 | PCM.DC.SUM ---
<Galina Balderas - Last Filed: 10/08/18 11:53> Discharge Date and Diagnosis Date of Admission: 10/04/18 Date of Discharge: 10/08/18 - Primary Discharge Diagnosis Active and Suspected Problems (Last Reviewed 05/04/18 @ 02:22 by Lorne Holder MD) 1. Acute sepsis secondary to enterococcus faecium/VRE bacteremia as a result of infected PICC line 2. Acute on chronic hypoxic and hypercarbic respiratory failure suspected secondary to increased metabolic demands as a result of #1 complicated by obesity hypoventilation syndrome, chronic COPD, ELDER 3. Acute metabolic encephalopathy secondary to #1/#2 4. Chronic stage III coccyx decubital ulcer, present on admission 5. 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 Acute deep vein thrombosis (DVT) of left upper extremity (Chronic) Recent LUE DVT while at [facility] s/p CABG. On therapeutic lovenox/coumadin bridge awaiting INR to be therapeutic. Acute anemia (Chronic) Post-operatively Hgb decrease, s/p 2 u PRBC. Decubitus ulcer (Chronic) ESBL Coccyx Decubitous Ulcer Stage IV s/p I+D with VAC placement. Continued on Meropenem regimen per ID recommendation x 6 weeks additional to concurrently treat R Foot Osteomyelitis. Foot osteomyelitis, right (Chronic) Recent R Foot Osteomyelitis, maintained on meropenem and voriconazole for planned addition 6 weeks of treatment per Dr. Palmer direction. Pain in right toe(s) (Chronic) Type 2 diabetes mellitus (Chronic) Obesity (BMI 30.0-34.9) (Chronic) HERNANDEZ (dyspnea on exertion) (Chronic) ELDER (obstructive sleep apnea) (Chronic) COPD (chronic obstructive pulmonary disease) (Chronic) Neuropathic pain (Chronic) Allergic rhinitis (Chronic) Asthma (Chronic) Acute kidney injury (Chronic) Mild asthma (Chronic) Osteoarthritis (Chronic) Hyperlipidemia (Chronic) Hypertension (Chronic) Type 2 diabetes mellitus (Chronic) Hospital Course and Treatment Imaging Results: Diagnostic Data Chest X-Ray 10/04/18 10:25 IMPRESSION: Stable examination. The PICC line catheter is unchanged. Electronically Signed: Mack Browne MD at 10:57 EST Tel [phone], Service support , Abdomen/Pelvis CT 10/06/18 12:30 IMPRESSION: 1. Stable liver hemangioma. Otherwise, unremarkable liver 2. Stable left renal cyst. Continued bilateral perinephric fat stranding however, likely age-related in nature. No evidence of acute obstruction 3. Bibasilar airspace disease; right greater than left with small effusion 4. Left lower quadrant ostomy 5. Under distended bladder with Conroy catheter. Wall thickening. 6. Anasarca Electronically Signed: Sekou Aguirre DO at 15:31 EST Tel , Service support , Consultations 10/04/18 09:31 Consult: Onc/Wound/test engineering technician Routine Comment: WOUNDS TO ARM, LEGS, CHEST, COCCYX Reason for Consult:: WOUNDS Dr. Palmer- ID Dr. Barnes/Dr. Coello- Pulmonary Medicine Operations: None Procedures: 2-D Echocardiogram, PICC line placement Summary of Care Provided: The patient is a 68 year old F admitted 10/04/2018 due to decreased level of consciousness. 1. Acute sepsis secondary to enterococcus faecium/VRE bacteremia with PICC line source-ID following. New PICC line placed. Previous PICC line removed 10/07/2018. Repeat blood culture is negative. Patient will continue daptomycin 8 mg/kg with stop date 10/21/2018. PICC line to be removed following IV antibiotic completion. CT abdomen does not show intra-abdominal abscess. Echocardiogram with EF 60%, no evidence of mass or vegetation. Sepsis resolved. 2. Acute on chronic hypoxic and hypercarbic respiratory failure-patient has recently been using supplemental oxygen at . Chest x-ray unremarkable. Influenza and respiratory panel negative. Suspect respiratory failure due to increased metabolic demands secondary to #1. Continue supplement oxygen to maintain O2 at or above 90%. Avoid sedating regimen. Previous fentanyl regimen discontinued. Patient can continue as needed Percocet. Albuterol/DuoNeb aerosol. BiPAP nightly and with naps. Respiratory status complicated by obesity hypoventilation syndrome, chronic COPD, ELDER. 3. Acute metabolic encephalopathy secondary to #1/#2-resolved. 4. Chronic stage III coccyx decubital ulcer, chronic left lower leg wounds, present on admission-patient underwent debridement in the past followed by LTAC stay which she was discharge to 09/09/18. Coccyx wound culture preliminary showing multiple organisms including Klebsiella, Acinetobacter, E. coli, Staphylococcus hemolyticus, Corynebacterium. Cleanse all wounds with saline, pat dry. Adaptic to left lower leg wounds. Left hand, wrist and chest. Change Daily. Aquacel AG to sacrum daily. Cover with dry dressing. Mepilex to left post lower leg. Change every 5 days and PRN. Follow-up with wound center in 1 week. Continue antibiotics at discharge per ID. 5. Acute on chronic recurrent UTI with chronic conryo-history of cultures positive for E. coli, Klebsiella, +ESBL. Urine culture pending. Continue antibiotics per ID. 6. Chronic iron deficiency anemia, anemia of chronic disease-Stable. Continue iron supplementation. 4. History of left upper extremity DVT, February 2018-continue Coumadin. 5. CAD status post three-vessel CABG-Continue Plavix, carvedilol, Coumadin. 6. Hypertension-stable, continue home regimen. 7. Hyperlipidemia-continue statin. 8. Type 2 diabetes mellitus-continue previous oral insulin regimen. 9. Diabetic neuropathy-continue home gabapentin regimen. 10. Chronic COPD/asthma-DuoNeb aerosols as needed. Continue home Singulair regimen. 11. Tobacco dependence-encourage smoking cessation. 12. Obstructive sleep apnea-continue BIPAP nightly. 13. GERD-continue PPI. General: Alert, Oriented x3, Cooperative HEENT: Atraumatic, PERRLA, EOMI, Normocephalic Neck: Supple, No JVD, Negative Carotid Bruits Lungs: Clear to auscultation, Diminished Cardiovascular: Regular rate, Regular Rhythm, Normal S1, Normal S2, No murmurs Abdomen: Bowel Sounds Present, Soft, Non Tender, Non-Distended, Obese Extremities: No clubbing, No cyanosis, No edema, Capillary Refill Less than 3 Seconds Skin: - - Chronic sacral ulcer, dressing intact. Left lower extremity dressings clean dry and intact. Left hand and wrist skin tears. Chronic left lower extremity wounds. Musculoskeletal: No Tenderness to Palpation of Joints or Extremities Neurological: Cranial nerves II-XII grossly intact, Motor Exam 5/5 strength throughout Psych/Mental Status: Normal Affect, Appropriate Patient seen and examined prior to discharge. Physical assessment as noted above. Patient is stable for discharge with follow up recommendations as noted above. Referral made to palliative/hospice at discharge. Long discussion with patient regarding quality of life. Patient agreeable to discussion with palliate/hospice services however would like her family to be present for discussion. This patient was seen by LUCIE Jim under the supervision of Dr. Alvarez. - Physical Exam Vital Signs Temp Pulse Resp BP Pulse Ox 98.2 F 65 15 136/71 H 100 10/08/18 11:15 10/08/18 11:15 10/08/18 11:15 10/08/18 11:15 10/08/18 11:15 Oxygen Flow Rate (L/min) 3 Oxygen Delivery Method Nasal Cannula Weight: 182 lb 15.739 oz Body Mass Index (BMI) 32.4 Finger Stick Blood Glucose 165 Intake and Output for Last 24 Hours 10/06/18 10/07/18 10/08/18 23:59 23:59 23:59 Intake Total 2682.8 / 2682.8 2476.4 / 2476.4 1740 / 1740 Output Total 2650 / 2650 1600 / 1600 600 / 600 Balance 32.8 / 32.8 876.4 / 876.4 1140 / 1140 Microbiology Past 72 Hours 10/04/18 12:10 Gram Stain - Final Wound - Sacral Wound Culture - Final Klebsiella pneumoniae sp pneum Acinetobacter baumannii Escherichia coli Staphylococcus haemolyticus Corynebacterium striatum Anaerobic Culture - Preliminary Checking for anaerobes, further studies to follow. 10/07/18 12:05 Gram Stain - Final Other - Pic 10/04/18 08:05 Urine Culture - Final Urine Catheter - Catheter GNR lactose advertising supervisor GNR lactose advertising supervisor#2 Gram positive organism Gram positive organism#2 Yeast Like Organism 10/04/18 07:45 Blood Culture - Preliminary Blood Culture (Wb) - Left Forearm No growth in 48 hours. 10/04/18 07:10 Bacteria Detection (PCR) - Final Blood Culture (Wb) - Central Line Enterococcus faecium Monika/vanB Resistance Marker Blood Culture - Final Vancomycin Resist. E. faecium Laboratory Tests Past 24 Hrs 10/08/18 10/08/18 10/08/18 04:30 04:30 04:30 WBC 5.4 RBC 2.94 L Hgb 9.1 L Hct 29.8 L MCV 101.4 H MCH 31.0 MCHC 30.5 L RDW 15.4 H RDW Differential 54.5 H Plt Count 257 MPV 8.3 PT 38.0 H INR 3.8 H* Sodium 144 Potassium 3.8 Chloride 110 H Carbon Dioxide 29.0 Anion Gap 5 BUN 30 H Creatinine 0.36 L Estim Creat Clear Calc 43.92 Est GFR (MDRD) Af Amer 226 Est GFR (MDRD) Non-Af 187 BUN/Creatinine Ratio 82.2 H Glucose 102 Calcium 8.2 L POC Glucose 10/08/18 10/07/18 10/07/18 06:50 20:48 18:07 POC Glucose 84 143 H 95 10/07/18 10/07/18 17:16 11:52 POC Glucose 63 L 81 Home Medications: Medications to take at Discharge gabapentin 300 mg capsule 600 mg PO TID cap 08/23/17 Ascorbic Acid [Vitamin C] 500 mg PO BIDCM 03/04/18 Carvedilol [Coreg] 12.5 mg PO BID 03/04/18 Folic Acid 1 mg PO DAILY@0800 03/04/18 Iron Polysaccharide Complex [Ferrex 150] 150 mg PO BID 03/04/18 Melatonin 3 mg PO QHS 03/04/18 Bisacodyl 10 mg RC PRN PRN 05/03/18 Glipizide [Glucotrol] 20 mg PO DAILY 05/03/18 Insulin Lispro [Humalog KwikPen] See Protocol SC ACHS 05/03/18 Megestrol Acetate 10 ml PO BID 05/03/18 Mirtazapine 7.5 mg PO QHS 05/03/18 Nutritional Supplement [Radames - ORANGE FLAVOR] 1 packet PO BIDCM 05/03/18 Warfarin Sodium [Coumadin] 3 mg PO DAILY 05/03/18 Amiodarone HCl 400 mg PO DAILY 10/04/18 Dextrose [Glucose Gel] 37.5 gm PO PRN PRN 10/04/18 Docusate Sodium [Colace] 100 mg PO BID 10/04/18 Gluc Cerda/Chondro Cerda A/Vit C/Mn [Glucosamine Chondroitin Tab] 3 each PO DAILY 10/04/18 Glucagon,Human Recombinant [Glucagen] 1 mg IJ PRN PRN 10/04/18 Insulin Glargine,Hum.rec.anlog [Lantus] 10 unit SQ DAILY 10/04/18 Insulin Glargine,Hum.rec.anlog [Lantus] 25 unit SQ QHS 10/04/18 Ipratropium/Albuterol Sulfate [Iprat-Albut 0.5-3(2.5) mg/3 ml] 3 ml IH Q2H PRN PRN 10/04/18 Magnesium Hydroxide [Milk of Magnesia] 30 ml PO DAILY PRN PRN 10/04/18 Mineral Oil 133 ml RC DAILY PRN PRN 10/04/18 Multivitamin [Once Daily] 1 each PO DAILY 10/04/18 Oxycodone HCl/Acetaminophen [Percocet 5-325] 2 tablet PO Q4H PRN PRN 10/04/18 Polyethylene Glycol 1450 17 gm PO DAILY 10/04/18 Zinc Sulfate 220 mg PO DAILY 10/04/18 Albuterol Aerosols [Ventolin Aerosols] 2.5 mg INHALATION Q2H PRN PRN #0 vial.neb. 10/08/18 Amox/Clavulanate Tablet [Augmentin Tablet] 875 mg PO Q12H #56 tab 10/08/18 DAPTOmycin [Cubicin] 600 mg IV Q24 #12 vial 10/08/18 Ipratropium/Albuterol Sulfate [Duoneb] 3 ml INHALATION Q6H.RT ampul.neb 10/08/18 Minocycline [Minocin] 100 mg PO DAILY #56 cap 10/08/18 Following Prescrptions Were Given to Patient: Amox/Clavulanate Tablet [Augmentin Tablet] 875 mg PO Q12H #56 tab DAPTOmycin [Cubicin] 600 mg IV Q24 #12 vial Minocycline [Minocin] 100 mg PO DAILY #56 cap Primary Care Physician: Tong Willis MD [Primary Care Provider] - Please follow up with your Primary Care Physician in: 1 Week Please Follow Up With: Wound Center When: 1 Week Please Follow Up With: Soctt Varghese DO When: Please call to arrange meeting with pt & family regarding palliative/hospic Disposition: Long-Term facility Minutes spent on discharge:: 35 Patient Condition:: Stable Medical Necessity - Tobacco Use Smoking Status: Former smoker Meaningful Use Info Meaningful Use Diagnoses (Choose all that apply): None applicable <Han Alvarez - Last Filed: 10/08/18 12:22> Discharge Date and Diagnosis - Secondary Discharge Diagnosis Chronic Problems (Last Reviewed 05/04/18 @ 02:22 by Lorne Holder MD) Anemia (Chronic) DVT (deep venous thrombosis) (Chronic) CAD (coronary artery disease) (Chronic) Atherosclerotic heart disease of [place] coronary artery without angina pectoris (Chronic) CABG x5 - LE to LAD, SVG to diag, SVG to OM1, SVG to OM2, SVG to PDA @[facility] on 02/15/18 Nonrheumatic mitral valve regurgitation (Chronic) 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 Acute deep vein thrombosis (DVT) of left upper extremity (Chronic) Recent LUE DVT while at [facility] s/p CABG. On therapeutic lovenox/coumadin bridge awaiting INR to be therapeutic. Acute anemia (Chronic) Post-operatively Hgb decrease, s/p 2 u PRBC. Decubitus ulcer (Chronic) ESBL Coccyx Decubitous Ulcer Stage IV s/p I+D with VAC placement. Continued on Meropenem regimen per ID recommendation x 6 weeks additional to concurrently treat R Foot Osteomyelitis. Foot osteomyelitis, right (Chronic) Recent R Foot Osteomyelitis, maintained on meropenem and voriconazole for planned addition 6 weeks of treatment per Dr. Palmer direction. Pain in right toe(s) (Chronic) Type 2 diabetes mellitus (Chronic) Obesity (BMI 30.0-34.9) (Chronic) HERNANDEZ (dyspnea on exertion) (Chronic) ELDER (obstructive sleep apnea) (Chronic) COPD (chronic obstructive pulmonary disease) (Chronic) Neuropathic pain (Chronic) Allergic rhinitis (Chronic) Asthma (Chronic) Acute kidney injury (Chronic) Mild asthma (Chronic) Osteoarthritis (Chronic) Hyperlipidemia (Chronic) Hypertension (Chronic) Type 2 diabetes mellitus (Chronic) Hospital Course and Treatment Consultations 10/04/18 09:31 Consult: Onc/Wound/test engineering technician Routine Comment: WOUNDS TO ARM, LEGS, CHEST, COCCYX Reason for Consult:: WOUNDS Summary of Care Provided: The patient is a 68 year old F [] - Physical Exam Vital Signs Temp Pulse Resp BP Pulse Ox 98.2 F 65 15 136/71 H 100 10/08/18 11:15 10/08/18 11:15 10/08/18 11:15 10/08/18 11:15 10/08/18 11:15 Oxygen Flow Rate (L/min) 3 Oxygen Delivery Method Nasal Cannula Weight: 182 lb 15.739 oz Body Mass Index (BMI) 32.4 Finger Stick Blood Glucose 165 Intake and Output for Last 24 Hours 10/06/18 10/07/18 10/08/18 23:59 23:59 23:59 Intake Total 2682.8 / 2682.8 2476.4 / 2476.4 1740 / 1740 Output Total 2650 / 2650 1600 / 1600 600 / 600 Balance 32.8 / 32.8 876.4 / 876.4 1140 / 1140 Microbiology Past 72 Hours 10/04/18 12:10 Gram Stain - Final Wound - Sacral Wound Culture - Final Klebsiella pneumoniae sp pneum Acinetobacter baumannii Escherichia coli Staphylococcus haemolyticus Corynebacterium striatum Anaerobic Culture - Preliminary Checking for anaerobes, further studies to follow. 10/07/18 12:05 Gram Stain - Final Other - Pic 10/04/18 08:05 Urine Culture - Final Urine Catheter - Catheter GNR lactose advertising supervisor GNR lactose advertising supervisor#2 Gram positive organism Gram positive organism#2 Yeast Like Organism 10/04/18 07:45 Blood Culture - Preliminary Blood Culture (Wb) - Left Forearm No growth in 48 hours. 10/04/18 07:10 Bacteria Detection (PCR) - Final Blood Culture (Wb) - Central Line Enterococcus faecium Monika/vanB Resistance Marker Blood Culture - Final Vancomycin Resist. E. faecium Laboratory Tests Past 24 Hrs 10/08/18 10/08/18 10/08/18 04:30 04:30 04:30 WBC 5.4 RBC 2.94 L Hgb 9.1 L Hct 29.8 L MCV 101.4 H MCH 31.0 MCHC 30.5 L RDW 15.4 H RDW Differential 54.5 H Plt Count 257 MPV 8.3 PT 38.0 H INR 3.8 H* Sodium 144 Potassium 3.8 Chloride 110 H Carbon Dioxide 29.0 Anion Gap 5 BUN 30 H Creatinine 0.36 L Estim Creat Clear Calc 43.92 Est GFR (MDRD) Af Amer 226 Est GFR (MDRD) Non-Af 187 BUN/Creatinine Ratio 82.2 H Glucose 102 Calcium 8.2 L POC Glucose 10/08/18 10/07/18 10/07/18 06:50 20:48 18:07 POC Glucose 84 143 H 95 10/07/18 17:16 POC Glucose 63 L Code Visit Addendum: Dr. Alvarez I personally examined the patient and reviewed the chart. I agree with the above. 68-year-old female with an extensive past medical history, presenting with multiple non-healing wounds on her sternum from her previous sternotomy, as well as her buttock. Cultures from these wounds are growing Acinetobacter as well as a resistant E. coli and a Klebsiella. Blood cultures on 10/04/2018 grew VRE. She had her PICC line replaced and her old removed and the tip sent for culture and if she is currently on daptomycin and Zosyn per infectious disease. She was cleared by ID for transfer back to her SNF on daptomycin, minocycline and augmentin as described above. I did have a long conversation with her over the last few days about the success of therapy. We discussed hospice as an option which she is receptive to in the future. Inpatient E&M: 47027 Disch Hosp
--- NOTE | 2018-10-08 11:32 | DS.PCM_ITS ---
<Galina Balderas - Last Filed: 10/08/18 11:53> Discharge Date and Diagnosis Date of Admission: 10/04/18 Date of Discharge: 10/08/18 - Primary Discharge Diagnosis Active and Suspected Problems (Last Reviewed 05/04/18 @ 02:22 by Lorne Holder MD) 1. Acute sepsis secondary to enterococcus faecium/VRE bacteremia as a result of infected PICC line 2. Acute on chronic hypoxic and hypercarbic respiratory failure suspected secondary to increased metabolic demands as a result of #1 complicated by obesity hypoventilation syndrome, chronic COPD, ELDER 3. Acute metabolic encephalopathy secondary to #1/#2 4. Chronic stage III coccyx decubital ulcer, present on admission 5. 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 Acute deep vein thrombosis (DVT) of left upper extremity (Chronic) Recent LUE DVT while at [facility] s/p CABG. On therapeutic lovenox/coumadin bridge awaiting INR to be therapeutic. Acute anemia (Chronic) Post-operatively Hgb decrease, s/p 2 u PRBC. Decubitus ulcer (Chronic) ESBL Coccyx Decubitous Ulcer Stage IV s/p I+D with VAC placement. Continued on Meropenem regimen per ID recommendation x 6 weeks additional to concurrently treat R Foot Osteomyelitis. Foot osteomyelitis, right (Chronic) Recent R Foot Osteomyelitis, maintained on meropenem and voriconazole for planned addition 6 weeks of treatment per Dr. Palmer direction. Pain in right toe(s) (Chronic) Type 2 diabetes mellitus (Chronic) Obesity (BMI 30.0-34.9) (Chronic) HERNANDEZ (dyspnea on exertion) (Chronic) ELDER (obstructive sleep apnea) (Chronic) COPD (chronic obstructive pulmonary disease) (Chronic) Neuropathic pain (Chronic) Allergic rhinitis (Chronic) Asthma (Chronic) Acute kidney injury (Chronic) Mild asthma (Chronic) Osteoarthritis (Chronic) Hyperlipidemia (Chronic) Hypertension (Chronic) Type 2 diabetes mellitus (Chronic) Hospital Course and Treatment Imaging Results: Diagnostic Data Chest X-Ray 10/04/18 10:25 IMPRESSION: Stable examination. The PICC line catheter is unchanged. Electronically Signed: Mack Browne MD at 10:57 EST Tel [phone], Service support , Abdomen/Pelvis CT 10/06/18 12:30 IMPRESSION: 1. Stable liver hemangioma. Otherwise, unremarkable liver 2. Stable left renal cyst. Continued bilateral perinephric fat stranding however, likely age-related in nature. No evidence of acute obstruction 3. Bibasilar airspace disease; right greater than left with small effusion 4. Left lower quadrant ostomy 5. Under distended bladder with Conroy catheter. Wall thickening. 6. Anasarca Electronically Signed: Sekou Aguirre DO at 15:31 EST Tel , Service support , Consultations 10/04/18 09:31 Consult: Onc/Wound/rotary envelope machine operator Routine Comment: WOUNDS TO ARM, LEGS, CHEST, COCCYX Reason for Consult:: WOUNDS Dr. Palmer- ID Dr. Barnes/Dr. Coello- Pulmonary Medicine Operations: None Procedures: 2-D Echocardiogram, PICC line placement Summary of Care Provided: The patient is a 68 year old F admitted 10/04/2018 due to decreased level of consciousness. 1. Acute sepsis secondary to enterococcus faecium/VRE bacteremia with PICC line source-ID following. New PICC line placed. Previous PICC line removed 10/07/2018. Repeat blood culture is negative. Patient will continue daptomycin 8 mg/kg with stop date 10/21/2018. PICC line to be removed following IV antibiotic completion. CT abdomen does not show intra-abdominal abscess. Echocardiogram with EF 60%, no evidence of mass or vegetation. Sepsis resolved. 2. Acute on chronic hypoxic and hypercarbic respiratory failure-patient has recently been using supplemental oxygen at [facility]. Chest x-ray unremarkable. Influenza and respiratory panel negative. Suspect respiratory failure due to increased metabolic demands secondary to #1. Continue supplement oxygen to maintain O2 at or above 90%. Avoid sedating regimen. Previous fentanyl regimen discontinued. Patient can continue as needed Percocet. Albuterol/DuoNeb aerosol. BiPAP nightly and with naps. Respiratory status complicated by obesity hypoventilation syndrome, chronic COPD, ELDER. 3. Acute metabolic encephalopathy secondary to #1/#2-resolved. 4. Chronic stage III coccyx decubital ulcer, chronic left lower leg wounds, present on admission-patient underwent debridement in the past followed by LTAC stay which she was discharge to [facility] 09/09/18. Coccyx wound culture preliminary showing multiple organisms including Klebsiella, Acinetobacter, E. coli, Staphylococcus hemolyticus, Corynebacterium. Cleanse all wounds with saline, pat dry. Adaptic to left lower leg wounds. Left hand, wrist and chest. Change Daily. Aquacel AG to sacrum daily. Cover with dry dressing. Mepilex to left post lower leg. Change every 5 days and PRN. Follow-up with wound center in 1 week. Continue antibiotics at discharge per ID. 5. Acute on chronic recurrent UTI with chronic conroy-history of cultures positive for E. coli, Klebsiella, +ESBL. Urine culture pending. Continue antibiotics per ID. 6. Chronic iron deficiency anemia, anemia of chronic disease-Stable. Continue iron supplementation. 4. History of left upper extremity DVT, February 2018-continue Coumadin. 5. CAD status post three-vessel CABG-Continue Plavix, carvedilol, Coumadin. 6. Hypertension-stable, continue home regimen. 7. Hyperlipidemia-continue statin. 8. Type 2 diabetes mellitus-continue previous oral insulin regimen. 9. Diabetic neuropathy-continue home gabapentin regimen. 10. Chronic COPD/asthma-DuoNeb aerosols as needed. Continue home Singulair regimen. 11. Tobacco dependence-encourage smoking cessation. 12. Obstructive sleep apnea-continue BIPAP nightly. 13. GERD-continue PPI. General: Alert, Oriented x3, Cooperative HEENT: Atraumatic, PERRLA, EOMI, Normocephalic Neck: Supple, No JVD, Negative Carotid Bruits Lungs: Clear to auscultation, Diminished Cardiovascular: Regular rate, Regular Rhythm, Normal S1, Normal S2, No murmurs Abdomen: Bowel Sounds Present, Soft, Non Tender, Non-Distended, Obese Extremities: No clubbing, No cyanosis, No edema, Capillary Refill Less than 3 Seconds Skin: - - Chronic sacral ulcer, dressing intact. Left lower extremity dressings clean dry and intact. Left hand and wrist skin tears. Chronic left lower extremity wounds. Musculoskeletal: No Tenderness to Palpation of Joints or Extremities Neurological: Cranial nerves II-XII grossly intact, Motor Exam 5/5 strength throughout Psych/Mental Status: Normal Affect, Appropriate Patient seen and examined prior to discharge. Physical assessment as noted above. Patient is stable for discharge with follow up recommendations as noted above. Referral made to palliative/hospice at discharge. Long discussion with patient regarding quality of life. Patient agreeable to discussion with palliate/hospice services however would like her family to be present for discussion. This patient was seen by LUCIE Jim under the supervision of Dr. Alvarez. - Physical Exam Vital Signs Temp Pulse Resp BP Pulse Ox 98.2 F 65 15 136/71 H 100 10/08/18 11:15 10/08/18 11:15 10/08/18 11:15 10/08/18 11:15 10/08/18 11:15 Oxygen Flow Rate (L/min) 3 Oxygen Delivery Method Nasal Cannula Weight: 182 lb 15.739 oz Body Mass Index (BMI) 32.4 Finger Stick Blood Glucose 165 Intake and Output for Last 24 Hours 10/06/18 10/07/18 10/08/18 23:59 23:59 23:59 Intake Total 2682.8 / 2682.8 2476.4 / 2476.4 1740 / 1740 Output Total 2650 / 2650 1600 / 1600 600 / 600 Balance 32.8 / 32.8 876.4 / 876.4 1140 / 1140 Microbiology Past 72 Hours 10/04/18 12:10 Gram Stain - Final Wound - Sacral Wound Culture - Final Klebsiella pneumoniae sp pneum Acinetobacter baumannii Escherichia coli Staphylococcus haemolyticus Corynebacterium striatum Anaerobic Culture - Preliminary Checking for anaerobes, further studies to follow. 10/07/18 12:05 Gram Stain - Final Other - Pic 10/04/18 08:05 Urine Culture - Final Urine Catheter - Catheter GNR lactose assembly lead person GNR lactose assembly lead person#2 Gram positive organism Gram positive organism#2 Yeast Like Organism 10/04/18 07:45 Blood Culture - Preliminary Blood Culture (Wb) - Left Forearm No growth in 48 hours. 10/04/18 07:10 Bacteria Detection (PCR) - Final Blood Culture (Wb) - Central Line Enterococcus faecium Monika/vanB Resistance Marker Blood Culture - Final Vancomycin Resist. E. faecium Laboratory Tests Past 24 Hrs 10/08/18 10/08/18 10/08/18 04:30 04:30 04:30 WBC 5.4 RBC 2.94 L Hgb 9.1 L Hct 29.8 L MCV 101.4 H MCH 31.0 MCHC 30.5 L RDW 15.4 H RDW Differential 54.5 H Plt Count 257 MPV 8.3 PT 38.0 H INR 3.8 H* Sodium 144 Potassium 3.8 Chloride 110 H Carbon Dioxide 29.0 Anion Gap 5 BUN 30 H Creatinine 0.36 L Estim Creat Clear Calc 43.92 Est GFR (MDRD) Af Amer 226 Est GFR (MDRD) Non-Af 187 BUN/Creatinine Ratio 82.2 H Glucose 102 Calcium 8.2 L POC Glucose 10/08/18 10/07/18 10/07/18 06:50 20:48 18:07 POC Glucose 84 143 H 95 10/07/18 10/07/18 17:16 11:52 POC Glucose 63 L 81 Home Medications: Medications to take at Discharge gabapentin 300 mg capsule 600 mg PO TID cap 08/23/17 Ascorbic Acid [Vitamin C] 500 mg PO BIDCM 03/04/18 Carvedilol [Coreg] 12.5 mg PO BID 03/04/18 Folic Acid 1 mg PO DAILY@0800 03/04/18 Iron Polysaccharide Complex [Ferrex 150] 150 mg PO BID 03/04/18 Melatonin 3 mg PO QHS 03/04/18 Bisacodyl 10 mg RC PRN PRN 05/03/18 Glipizide [Glucotrol] 20 mg PO DAILY 05/03/18 Insulin Lispro [Humalog KwikPen] See Protocol SC ACHS 05/03/18 Megestrol Acetate 10 ml PO BID 05/03/18 Mirtazapine 7.5 mg PO QHS 05/03/18 Nutritional Supplement [Radames - ORANGE FLAVOR] 1 packet PO BIDCM 05/03/18 Warfarin Sodium [Coumadin] 3 mg PO DAILY 05/03/18 Amiodarone HCl 400 mg PO DAILY 10/04/18 Dextrose [Glucose Gel] 37.5 gm PO PRN PRN 10/04/18 Docusate Sodium [Colace] 100 mg PO BID 10/04/18 Gluc Cerda/Chondro Cerda A/Vit C/Mn [Glucosamine Chondroitin Tab] 3 each PO DAILY 10/04/18 Glucagon,Human Recombinant [Glucagen] 1 mg IJ PRN PRN 10/04/18 Insulin Glargine,Hum.rec.anlog [Lantus] 10 unit SQ DAILY 10/04/18 Insulin Glargine,Hum.rec.anlog [Lantus] 25 unit SQ QHS 10/04/18 Ipratropium/Albuterol Sulfate [Iprat-Albut 0.5-3(2.5) mg/3 ml] 3 ml IH Q2H PRN PRN 10/04/18 Magnesium Hydroxide [Milk of Magnesia] 30 ml PO DAILY PRN PRN 10/04/18 Mineral Oil 133 ml RC DAILY PRN PRN 10/04/18 Multivitamin [Once Daily] 1 each PO DAILY 10/04/18 Oxycodone HCl/Acetaminophen [Percocet 5-325] 2 tablet PO Q4H PRN PRN 10/04/18 Polyethylene Glycol 1450 17 gm PO DAILY 10/04/18 Zinc Sulfate 220 mg PO DAILY 10/04/18 Albuterol Aerosols [Ventolin Aerosols] 2.5 mg INHALATION Q2H PRN PRN #0 vial.neb. 10/08/18 Amox/Clavulanate Tablet [Augmentin Tablet] 875 mg PO Q12H #56 tab 10/08/18 DAPTOmycin [Cubicin] 600 mg IV Q24 #12 vial 10/08/18 Ipratropium/Albuterol Sulfate [Duoneb] 3 ml INHALATION Q6H.RT ampul.neb 10/08/18 Minocycline [Minocin] 100 mg PO DAILY #56 cap 10/08/18 Following Prescrptions Were Given to Patient: Amox/Clavulanate Tablet [Augmentin Tablet] 875 mg PO Q12H #56 tab DAPTOmycin [Cubicin] 600 mg IV Q24 #12 vial Minocycline [Minocin] 100 mg PO DAILY #56 cap Primary Care Physician: Tong Willis MD [Primary Care Provider] - Please follow up with your Primary Care Physician in: 1 Week Please Follow Up With: Wound Center When: 1 Week Please Follow Up With: Scott Varghese DO When: Please call to arrange meeting with pt & family regarding pall iative/hospic Disposition: Care Home facility Minutes spent on discharge:: 35 Patient Condition:: Stable Medical Necessity - Tobacco Use Smoking Status: Former smoker Meaningful Use Info Meaningful Use Diagnoses (Choose all that apply): None applicable <Han Alvarez - Last Filed: 10/08/18 12:22> Discharge Date and Diagnosis - Secondary Discharge Diagnosis Chronic Problems (Last Reviewed 05/04/18 @ 02:22 by Lorne Holder MD) Anemia (Chronic) DVT (deep venous thrombosis) (Chronic) CAD (coronary artery disease) (Chronic) Atherosclerotic heart disease of [place] coronary artery without angina pectoris (Chronic) CABG x5 - LE to LAD, SVG to diag, SVG to OM1, SVG to OM2, SVG to PDA @[facility] on 02/15/18 Nonrheumatic mitral valve regurgitation (Chronic) Stage 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 Acute deep vein thrombosis (DVT) of left upper extremity (Chronic) Recent LUE DVT while at [facility] s/p CABG. On therapeutic lovenox/coumadin bridge awaiting INR to be therapeutic. Acute anemia (Chronic) Post-operatively Hgb decrease, s/p 2 u PRBC. Decubitus ulcer (Chronic) ESBL Coccyx Decubitous Ulcer Stage IV s/p I+D with VAC placement. Continued on Meropenem regimen per ID recommendation x 6 weeks additional to concurrently treat R Foot Osteomyelitis. Foot osteomyelitis, right (Chronic) Recent R Foot Osteomyelitis, maintained on meropenem and voriconazole for planned addition 6 weeks of treatment per Dr. Palmer direction. Pain in right toe(s) (Chronic) Type 2 diabetes mellitus (Chronic) Obesity (BMI 30.0-34.9) (Chronic) HERNANDEZ (dyspnea on exertion) (Chronic) ELDER (obstructive sleep apnea) (Chronic) COPD (chronic obstructive pulmonary disease) (Chronic) Neuropathic pain (Chronic) Allergic rhinitis (Chronic) Asthma (Chronic) Acute kidney injury (Chronic) Mild asthma (Chronic) Osteoarthritis (Chronic) Hyperlipidemia (Chronic) Hypertension (Chronic) Type 2 diabetes mellitus (Chronic) Hospital Course and Treatment Consultations 10/04/18 09:31 Consult: Onc/Wound/rotary envelope machine operator Routine Comment: WOUNDS TO ARM, LEGS, CHEST, COCCYX Reason for Consult:: WOUNDS Summary of Care Provided: The patient is a 68 year old F [] - Physical Exam Vital Signs Temp Pulse Resp BP Pulse Ox 98.2 F 65 15 136/71 H 100 10/08/18 11:15 10/08/18 11:15 10/08/18 11:15 10/08/18 11:15 10/08/18 11:15 Oxygen Flow Rate (L/min) 3 Oxygen Delivery Method Nasal Cannula Weight: 182 lb 15.739 oz Body Mass Index (BMI) 32.4 Finger Stick Blood Glucose 165 Intake and Output for Last 24 Hours 10/06/18 10/07/18 10/08/18 23:59 23:59 23:59 Intake Total 2682.8 / 2682.8 2476.4 / 2476.4 1740 / 1740 Output Total 2650 / 2650 1600 / 1600 600 / 600 Balance 32.8 / 32.8 876.4 / 876.4 1140 / 1140 Microbiology Past 72 Hours 10/04/18 12:10 Gram Stain - Final Wound - Sacral Wound Culture - Final Klebsiella pneumoniae sp pneum Acinetobacter baumannii Escherichia coli Staphylococcus haemolyticus Corynebacterium striatum Anaerobic Culture - Preliminary Checking for anaerobes, further studies to follow. 10/07/18 12:05 Gram Stain - Final Other - Pic 10/04/18 08:05 Urine Culture - Final Urine Catheter - Catheter GNR lactose assembly lead person GNR lactose assembly lead person#2 Gram positive organism Gram positive organism#2 Yeast Like Organism 10/04/18 07:45 Blood Culture - Preliminary Blood Culture (Wb) - Left Forearm No growth in 48 hours. 10/04/18 07:10 Bacteria Detection (PCR) - Final Blood Culture (Wb) - Central Line Enterococcus faecium Monika/vanB Resistance Marker Blood Culture - Final Vancomycin Resist. E. faecium Laboratory Tests Past 24 Hrs 10/08/18 10/08/18 10/08/18 04:30 04:30 04:30 WBC 5.4 RBC 2.94 L Hgb 9.1 L Hct 29.8 L MCV 101.4 H MCH 31.0 MCHC 30.5 L RDW 15.4 H RDW Differential 54.5 H Plt Count 257 MPV 8.3 PT 38.0 H INR 3.8 H* Sodium 144 Potassium 3.8 Chloride 110 H Carbon Dioxide 29.0 Anion Gap 5 BUN 30 H Creatinine 0.36 L Estim Creat Clear Calc 43.92 Est GFR (MDRD) Af Amer 226 Est GFR (MDRD) Non-Af 187 BUN/Creatinine Ratio 82.2 H Glucose 102 Calcium 8.2 L POC Glucose 10/08/18 10/07/18 10/07/18 06:50 20:48 18:07 POC Glucose 84 143 H 95 10/07/18 17:16 POC Glucose 63 L Code Visit Addendum: Dr. Alvarez I personally examined the patient and reviewed the chart. I agree with the above. 68-year-old female with an extensive past medical history, presenting with multiple non-healing wounds on her sternum from her previous sternotomy, as well as her buttock. Cultures from these wounds are growing Acinetobacter as well as a resistant E. coli and a Klebsiella. Blood cultures on 10/04/2018 grew VRE. She had her PICC line replaced and her old removed and the tip sent for culture and if she is currently on daptomycin and Zosyn per infectious disease. She was cleared by ID for transfer back to her SNF on daptomycin, minocycline and augmentin as described above. I did have a long conversation with her over the last few days about the success of therapy. We discussed hospice as an option which she is receptive to in the future. Inpatient E&M: 61969 Disch Hosp
--- NOTE | 2018-10-08 11:56 | PHA.DC.MR ---
Pharmacy Service has performed discharge medication reconciliation for this patient upon transfer to [facility]. The patient's discharge medication list was reviewed for discrepancies and discrepancies were resolved. Home Medications gabapentin 300 mg capsule 600 mg PO TID cap 08/23/17 Ascorbic Acid [Vitamin C] 500 mg PO BIDCM 03/04/18 Carvedilol [Coreg] 12.5 mg PO BID 03/04/18 Folic Acid 1 mg PO DAILY@0800 03/04/18 Iron Polysaccharide Complex [Ferrex 150] 150 mg PO BID 03/04/18 Melatonin 3 mg PO QHS 03/04/18 Bisacodyl 10 mg RC PRN PRN 05/03/18 Glipizide [Glucotrol] 20 mg PO DAILY 05/03/18 Insulin Lispro [Humalog KwikPen] See Protocol SC ACHS 05/03/18 Megestrol Acetate 10 ml PO BID 05/03/18 Mirtazapine 7.5 mg PO QHS 05/03/18 Nutritional Supplement [Radames - [place] FLAVOR] 1 packet PO BIDCM 05/03/18 Warfarin Sodium [Coumadin] 3 mg PO DAILY 05/03/18 Amiodarone HCl 400 mg PO DAILY 10/04/18 Dextrose [Glucose Gel] 37.5 gm PO PRN PRN 10/04/18 Docusate Sodium [Colace] 100 mg PO BID 10/04/18 Gluc Cerda/Chondro Cerda A/Vit C/Mn [Glucosamine Chondroitin Tab] 3 each PO DAILY 10/04/18 Glucagon,Human Recombinant [Glucagen] 1 mg IJ PRN PRN 10/04/18 Insulin Glargine,Hum.rec.anlog [Lantus] 10 unit SQ DAILY 10/04/18 Insulin Glargine,Hum.rec.anlog [Lantus] 25 unit SQ QHS 10/04/18 Ipratropium/Albuterol Sulfate [Iprat-Albut 0.5-3(2.5) mg/3 ml] 3 ml IH Q2H PRN PRN 10/04/18 Magnesium Hydroxide [Milk of Magnesia] 30 ml PO DAILY PRN PRN 10/04/18 Mineral Oil 133 ml RC DAILY PRN PRN 10/04/18 Multivitamin [Once Daily] 1 each PO DAILY 10/04/18 Oxycodone HCl/Acetaminophen [Percocet 5-325] 2 tablet PO Q4H PRN PRN 10/04/18 Polyethylene Glycol 1450 17 gm PO DAILY 10/04/18 Zinc Sulfate 220 mg PO DAILY 10/04/18 Albuterol Aerosols [Ventolin Aerosols] 2.5 mg INHALATION Q2H PRN PRN #0 vial.neb. 10/08/18 Amox/Clavulanate Tablet [Augmentin Tablet] 875 mg PO Q12H #56 tab 10/08/18 DAPTOmycin [Cubicin] 600 mg IV Q24 #12 vial 10/08/18 Ipratropium/Albuterol Sulfate [Duoneb] 3 ml INHALATION Q6H.RT ampul.neb 10/08/18 Minocycline [Minocin] 100 mg PO DAILY #56 cap 10/08/18
--- NOTE | 2018-10-08 13:06 | CASEMGMT ---
Social Work DENNY spoke with physician and pt is ready for d/c today with recommendations for hospice/paliative care consult once pt gets to facility. Pt currently residing in the [facility] [place]. DENNY met with pt in room and discussed d/c planning. Pt is agreeable to return to [facility] and has no preference on ambulance company used for transport. DENNY spoke with pt regarding hospice/ palliative consult and pt is agreeable to speak with them but uncertain if she would like services at this time. With permission from pt, son Saurabh called and informed that pt would be d/c today and discussed hospice/palliative referral and pt son is agreeable to this and states he has talked to pt about this in the past. Transportation arranged with [facility] for 3:00 cherry picker operator. Referral made to Perry at [facility] and clinicals faxed. Perry to contact pt son to set up an appointment. Orders faxed to [facility]. Phone call to Chen at [facility] and explained pt will be d/c today at 3pm. Chen is agreeable that pt can return today. DENNY informed Chen of Hospice referral and of physician request for pt to be seen in the wound clinic. Nurse and pt son notified of d/c time. Plan: [facility]
[2018-10-08 13:40] LABS: Bedside Glucose 77 mg/dL (70-110)
[2018-10-08] MEDS: Minocycline 100 MG Capsule PO (14:52)
--- NOTE | 2018-10-08 15:16 | NURSING ---
TRIED TO [facility] REPORT NO ANSWER FROM NURSE SHANK BURNISHER SAID THAT THEY WILL CALL BACK
--- NOTE | 2018-10-08 15:55 | NURSING ---
report called to brenda kamara rn at [facility]
--- OUTSIDE RECORDS SUMMARY | 2018-12-08 14:17 | XMS RPT_ITS ---
:1950 Author Organization [place] Support Name Relationship Address Phone R Unavailable Unavailable Unavailable Karen Smith Unavailable JULES JONES + [place] [address] Street, Gloria Unavailable Unavailable + [place] [address] R Unavailable Unavailable Unavailable Karen Smith Unavailable JULES JONES + [place] [address] Street, Gloria Unavailable Unavailable + [place] [address] R Unavailable Unavailable Unavailable KAREN SMITH Unavailable JULES JONES + [place] [address] [address], GLORIA Unavailable Unavailable + [place] [address] R Unavailable Unavailable Unavailable KAREN SMITH Unavailable JULES JONES + [place] [address] [address], GLORIA Unavailable Unavailable + [place] [address] R Unavailable Unavailable Unavailable KAREN SMITH Unavailable JULES JONES + [place] [address] [address], [place]ORIA Unavailable Unavailable + [place] [address] R Unavailable Unavailable Unavailable KAREN SMITH Unavailable JULES JONES + [place] [address] [address], [place]ORIA Unavailable Unavailable + [place] [address] R Unavailable Unavailable Unavailable KAREN SMITH Unavailable JULES JONES + [place] [address] [address], GLORIA Unavailable Unavailable + [place] [address] R Unavailable Unavailable Unavailable STREET, KAREN Unavailable JULES JONES + [place] [address] [address], GLORIA Unavailable Unavailable + [place] [address] R Unavailable Unavailable Unavailable STREET, KAREN Unavailable JULES [address] + [place] [address] STREET, GLORIA Unavailable Unavailable + [place] [address] R Unavailable Unavailable Unavailable STREET, KAREN Unavailable JULES [address] + [place] [address] [address], GLORIA Unavailable Unavailable + [place] [address] R Unavailable Unavailable Unavailable STREET, KAREN Unavailable JULES [address] + [place] [address] [address], GLORIA Unavailable Unavailable + [place] [address] R Unavailable Unavailable Unavailable STREET, KAREN Unavailable JULES [address] + [place] [address] [address], GLORIA Unavailable Unavailable + [place] [address] R Unavailable Unavailable Unavailable Street, Karen Unavailable JULES [address] + [place] [address] Street, Gloria Unavailable Unavailable + [place] [address] R Unavailable Unavailable Unavailable STREET, KAREN Unavailable JULES DR + [place] [address] [address], GLORIA Unavailable Unavailable + [place] [address] R Unavailable Unavailable Unavailable Street, Karen Unavailable JULES [address] + [place] [address] Street, Gloria Unavailable . + [place] [address] R Unavailable Unavailable Unavailable Street, Karen Unavailable JULES [address] + [place] [address] Street, Gloria Unavailable . + [place] [address] R Unavailable Unavailable Unavailable Street, Karen Unavailable JULES [address] + [place] [address] Street, Gloria Unavailable . + [place] [address] [address], [place] Unavailable Unavailable + STREET, [place] Unavailable Unavailable + STREET, [place] Unavailable Unavailable + STREET, [place] Unavailable Unavailable + STREET, [place] Unavailable Unavailable + R Unavailable Unavailable Unavailable Street, Karen Unavailable JULES JONES + [place] [address] Street, Gloria Unavailable . + [place] [address] [address], [place] Unavailable Unavailable + STREET, [place] Unavailable Unavailable + R Unavailable Unavailable Unavailable Street, Karen Unavailable JULES JONES + [place] [address] Street, Gloria Unavailable Unavailable + [place] [address] R Unavailable Unavailable Unavailable Street, Karen Unavailable JULES JONES + [place] [address] Street, Gloria Unavailable Unavailable + [place] [address] R Unavailable Unavailable Unavailable Street, Karen Unavailable JULES JONES + [place] [address] Street, Gloria Unavailable Unavailable + [place] [address] R Unavailable Unavailable Unavailable Street, Karen Unavailable JULES JONES + [place] [address] Street, Gloria Unavailable Unavailable + [place] [address] R Unavailable Unavailable Unavailable Street, Karen Unavailable JULES JONES + [place] [address] Street, Gloria Unavailable Unavailable + [place] [address] R Unavailable Unavailable Unavailable Street, Karen Unavailable JULES JONES + [place] [address] Street, Gloria Unavailable Unavailable + [place] [address] R Unavailable Unavailable Unavailable Street, Karen Unavailable JULES JONES + [place] [address] Street, Gloria Unavailable Unavailable + [place] [address] R Unavailable Unavailable Unavailable Street, Karen Unavailable JULES JONES + [place] [address] Street, Gloria Unavailable Unavailable + [place] [address] R Unavailable Unavailable Unavailable Street, Karen Unavailable JULES JONES + [place] [address] Street, Gloria Unavailable Unavailable + [place] [address] R Unavailable Unavailable Unavailable Street, aKren Unavailable JULES JONES + [place] [address] Street, Gloria Unavailable Unavailable + [place] [address] R Unavailable Unavailable Unavailable Street, Karen Unavailable JULES JONES + [place] [address] Street, Gloria Unavailable Unavailable + [place] [address] R Unavailable Unavailable Unavailable Street, Karen Unavailable JULES JONES + [place] [address] Street, Gloria Unavailable Unavailable + [place] [address] R Unavailable Unavailable Unavailable Street, Karen Unavailable JULES JONES + [place] [address] Street, Gloria Unavailable Unavailable + [place] [address] [address], [place] Unavailable Unavailable + R Unavailable Unavailable Unavailable STREET, KAREN Unavailable JULES JONES + [place] [address] [address], GLORIA Unavailable Unavailable + [place] [address] [address], [place] Unavailable Unavailable + R Unavailable Unavailable Unavailable STREET, KAREN Unavailable JULES JONES + [place] [address] [address], GLORIA Unavailable Unavailable + [place] [address] R Unavailable Unavailable Unavailable STREET, KAREN Unavailable JULES JONES [phone] [place] [address] [address], GLORIA Unavailable Unavailable + [place] [address] R Unavailable Unavailable Unavailable STREET, KAREN Unavailable JULES DR [phone] [place] [address] [address], GLORIA Unavailable Unavailable + [place] [address] R Unavailable Unavailable Unavailable STREET, KAREN Unavailable JULES [address] + [place] [address] [address], GLORIA Unavailable Unavailable + [place] [address] R Unavailable Unavailable Unavailable STREET, KAREN Unavailable JULES [address] + [place] [address] [address], GLORIA Unavailable Unavailable + [place] [address] R Unavailable Unavailable Unavailable STREET, KAREN Unavailable JULES [address] + [place] [address] [address], GLORIA Unavailable Unavailable + [place] [address] R Unavailable Unavailable Unavailable STREET, KAREN Unavailable JULES [address] + [place] [address] [address], GLORIA Unavailable Unavailable + [place] [address] R Unavailable Unavailable Unavailable STREET, KAREN Unavailable JULES JONES + [place] [address] [address], GLORIA Unavailable Unavailable + [place] [address] R Unavailable Unavailable Unavailable STREET, KAREN Unavailable JULES [address] + [place] [address] STRE[address], GLORIA Unavailable Unavailable + [place] [address] R Unavailable Unavailable Unavailable STREET, KAREN Unavailable JULES DR [phone] [place] [address] [address], GLORIA Unavailable Unavailable + [place] [address] R Unavailable Unavailable Unavailable STREET, KAREN Unavailable JULES [address] + [place] [address] STRE[address], GLORIA Unavailable Unavailable + [place] [address] R Unavailable Unavailable Unavailable Street, Alpa Unavailable Unavailable + [place] [address] [address], KAREN Unavailable JULES JONES [phone] [place] [address] R Unavailable Unavailable Unavailable KAREN SMITH Unavailable JULES JONES + [place] [address] R Unavailable Unavailable Unavailable KAREN SMITH Unavailable JULES JONES + [place] [address] R Unavailable Unavailable Unavailable KAREN SMITH Unavailable JULES JONES [phone] [place] [address] R Unavailable Unavailable Unavailable KAREN SMITH Unavailable JULES DR [phone] [place] [address] R Unavailable Unavailable Unavailable KAREN SMITH Unavailable JULES DR [phone] [place] [address] R Unavailable Unavailable Unavailable Alpa Smith Unavailable Unavailable + [place] [address] KAREN SMITH Unavailable JULES DR [phone] [place] [address] R Unavailable Unavailable Unavailable KAREN SMITH Unavailable JULES JONES + [place] [address] ALPA SMITHE Unavailable Unavailable + [place] [address] R Unavailable Unavailable Unavailable KAREN SMITH Unavailable JULES JONES + [place] [address] R Unavailable Unavailable Unavailable KAREN SMITH Unavailable JULSE JONES + [place] [address] Care Team Providers Name Role Phone Nurse, Surgery Attending Unavailable Shahzad, Baron Chi Referring Unavailable Shahzad, Baron Chi Primary Care Unavailable Al Barnes D.O. Attending Unavailable Shahzad, Barno Chi Referring Unavailable Shahzad, Baron Chi Primary Care Unavailable Rupert Hammond Consulting Unavailable Abel, Ryan Admitting Unavailable Abel, Ryan Attending Unavailable Syeda Palmer Consulting Unavailable Brennan Gonzalez Consulting Unavailable Al Barnes D.O. Consulting Unavailable White, Milena Admitting Unavailable White, Milena Attending Unavailable Shahzad, Baron Chi Primary Care Unavailable White, Milena Consulting Unavailable White, Milena Admitting Unavailable Sementi, Doris Attending Unavailable Shahzad, Baron Chi Primary Care Unavailable Rupert Hammond Consulting Unavailable Syeda Palmer Consulting Unavailable Semenbelen, Doris Consulting Unavailable Abel, Ryan Admitting Unavailable Sementi, Doris Attending Unavailable Shahzad, Baron Chi Primary Care Unavailable Rupert Hammond Consulting Unavailable Spencer, Syeda Consulting Unavailable Carlos, Brennan Consulting Unavailable Al Barnes D.O. Consulting Unavailable Abel, Ryan Consulting Unavailable Abel, Ryan Admitting Unavailable Carlos, Brennan Attending Unavailable Shahzad, Baron Chi Primary Care Unavailable Rupert Hammond Consulting Unavailable Spencer, Syeda Consulting Unavailable Carlos, Brennan Consulting Unavailable Priscila [place].O. Consulting Unavailable Abel, Ryan Consulting Unavailable Abel, Ryan Admitting Unavailable Al Barnes D.O. Attending Unavailable Shahzad, Baron Chi Primary Care Unavailable Rupert Hammond Consulting Unavailable Spencer, Syeda Consulting Unavailable Carlos, [place] Consulting Unavailable Al Barnes D.O. Consulting Unavailable Abel, Ryan Consulting Unavailable Cebul, Syeda Attending Unavailable Shahzad, Baron Chi Admitting Unavailable Shahzad, Baron Chi Attending Unavailable Shahzad, Baron Chi Referring Unavailable Shahzad, Baron Chi Primary Care Unavailable Shahzad, Baron Chi Attending Unavailable Shahzad, Baron Chi Referring Unavailable Shahzad, Baron Chi Primary Care Unavailable Shahzad, Baron Chi Primary Care Unavailable Paintsil, [place] Admitting Unavailable White, Milena Attending Unavailable Spencer, Syeda Consulting Unavailable Slaby, Jermaine Consulting Unavailable Paintsil, [place] Admitting Unavailable Paintsil, [place] Attending Unavailable Shahzad, Baron Chi Primary Care Unavailable Paintsil, [place] Consulting Unavailable Paintsil, [place] Admitting Unavailable White, Milena Attending Unavailable Shahzad, Baron Chi Primary Care Unavailable Spencer, Syeda Consulting Unavailable Slaby, Jermaine Consulting Unavailable White, Milena Consulting Unavailable Paintsil, [place] Admitting Unavailable White, Milena Attending Unavailable Shahzad, Baron Chi Primary Care Unavailable Spencer, Syeda Consulting Unavailable Slaby, Jermaine Consulting Unavailable White, Milena Consulting Unavailable Paintsil, [place] Admitting Unavailable White, Milena Attending Unavailable Shahzad, Baron Chi Primary Care Unavailable Spencer, Syeda Consulting Unavailable Slaby, Jermaine Consulting Unavailable White, Milena Consulting Unavailable Paintsil, [place] Admitting Unavailable Slaby, Jermaine Attending Unavailable Shahzad, Baron Chi Primary Care Unavailable Spencer, Syeda Consulting Unavailable Slaby, Jermaine Consulting Unavailable White, Milena Consulting Unavailable Paintsil, [place] Admitting Unavailable White, Milena Attending Unavailable Shahzad, Baron Chi Primary Care Unavailable Spencer, Syeda Consulting Unavailable Slaby, Jermaine Consulting Unavailable White, Milena Consulting Unavailable Paintsil, [place] Admitting Unavailable White, Milena Attending Unavailable Shahzad, Baron Chi Primary Care Unavailable Spencer, Syeda Consulting Unavailable Slaby, Jermaine Consulting Unavailable White, Milena Consulting Unavailable Brennan Gonzalez Attending Unavailable Paintsil, [place] Admitting Unavailable Slaby, Jermaine Attending Unavailable Shahzad, Baron Chi Primary Care Unavailable Spencer, Syeda Consulting Unavailable Slaby, Jermaine Consulting Unavailable White, Milena Consulting Unavailable Liz Hawkins Attending Unavailable Willis, Tong Attending Unavailable Willis, Tong Attending Unavailable Willis, Tong Attending Unavailable Willis, Tong Attending Unavailable at [facility] Attending Unavailable Willis, Tong Attending Unavailable Willis, Tong Attending Unavailable Willis, Tong Attending Unavailable Shahzad, Baron Chi Primary Care Unavailable Glory, Lorne Admitting Unavailable Spencer, Syeda Consulting Unavailable Ravi Soto Attending Unavailable Glory, Lorne Admitting Unavailable Shahzad, Baron Chi Primary Care Unavailable Glory, Lorne Consulting Unavailable Doris Moulton Attending Unavailable Glory, Lorne Admitting Unavailable Shahzad, Baron Chi Primary Care Unavailable Johnny Landrum Consulting Unavailable Diallo, Johnny Attending Unavailable Glory, Lorne Admitting Unavailable Shahzad, Baron Chi Primary Care Unavailable Johnny Landrum Consulting Unavailable Diallo, Johnny Attending Unavailable Glory, Lorne Admitting Unavailable Shahzad, Baron Chi Primary Care Unavailable Spencer, Syeda Consulting Unavailable Ravi Soto Attending Unavailable Ravi Soto Consulting Unavailable Wendi Melo Attending Unavailable Shahzad, Baron Chi Referring Unavailable Lazaro, Tong Attending Unavailable Willis, Tong Attending Unavailable Willis, Tong Attending Unavailable Willis, Tong Attending Unavailable Lazaro, Tong Primary Care Unavailable Johnny Landrum Admitting Unavailable Al Barnes D.O. Consulting Unavailable Han Alvarez Attending Unavailable Syeda Palmer Consulting Unavailable Johnny Landrum Admitting Unavailable Al Barnes D.O. Attending Unavailable Lazaro, Tong Primary Care Unavailable Al Barnes D.O. Consulting Unavailable Johnny Landrum Consulting Unavailable Johnny Landrum Admitting Unavailable Johnny Landrum Attending Unavailable Lazaro, Tong Primary Care Unavailable Al Barnes D.O. Consulting Unavailable Johnny Landrum Consulting Unavailable Johnny Landrum Admitting Unavailable Al Barnes D.O. Attending Unavailable Lazaro, Tong Primary Care Unavailable Al Barnes D.O. Consulting Unavailable Syeda Palmer Consulting Unavailable Johnny Landrum Consulting Unavailable Diallo, Johnny Admitting Unavailable Galina Balderas NP-C Attending Unavailable [facility] Primary Care Unavailable Priscila [place].O. Consulting Unavailable Syeda Palmer Consulting Unavailable Johnny Landrum Consulting Unavailable Walie, Johnny Admitting Unavailable Al Barnes D.O. Attending Unavailable [facility] Primary Care Unavailable Priscila [place].Zara. Consulting Unavailable Syeda Palmer Consulting Unavailable Johnny Landrum Consulting Unavailable Walie, Johnny Admitting Unavailable LUCIE Jim Attending Unavailable [facility] Primary Care Unavailable Priscila [place].Zara. Consulting Unavailable Syeda Palmer Consulting Unavailable Johnny Landrum Consulting Unavailable Diallo, Johnny Admitting Unavailable LUCIE Jim Attending Unavailable [facility] Primary Care Unavailable Priscila [place].Zara. Consulting Unavailable Syeda Palmer Consulting Unavailable Han Alvarez Consulting Unavailable Johnny Landrum Admitting Unavailable Mario Coello Attending Unavailable [facility] Primary Care Unavailable Priscila [place].Zara. Consulting Unavailable Syeda Palmer Consulting Unavailable Han Alvarez Consulting Unavailable Johnny Landrum Admitting Unavailable Galina Balderas NP-Mihaela Attending Unavailable [facility] Primary Care Unavailable Priscila [place].Zara. Consulting Unavailable Syeda Palmer Consulting Unavailable Han Alvarez Consulting Unavailable Tong Willis Attending Unavailable Johnny Landrum Admitting Unavailable Mario Coello Attending Unavailable [facility] Primary Care Unavailable Priscila [place].Zara. Consulting Unavailable Syeda Palmer Consulting Unavailable Han Alvarez Consulting Unavailable Lazaro Tong Attending Unavailable Shilpa DOSS Admitting Unavailable SHAHZAD, BARON-CHI Primary Care Unavailable ADIN BUSBY Consulting Unavailable NADIR JAMES Attending Unavailable NADIR JAMES Consulting Unavailable CRICKET BEAR Consulting Unavailable Leonor DUARTE Consulting Unavailable EZRA DICKINSON Consulting Unavailable KAREN CORDERO III Consulting Unavailable FABBY KAUR T Consulting Unavailable SAMANTHA BERRIOS Consulting Unavailable LETITIA WILSON Consulting Unavailable CAROLINA CASEY Consulting Unavailable NIC WEI Attending Unavailable SHAHZAD, BARON-CHI Referring Unavailable SHAHZAD, BARON-CHI Primary Care Unavailable Dimitri Smith Attending Unavailable Herbert Antunez Attending Unavailable Frankie Snell Admitting Unavailable Shahzad, Baron-Chi Primary Care Unavailable Antonia Dalal Attending Unavailable Colette Sloan Attending Unavailable Herbert [place] Attending Unavailable Mert Narayanan Attending Unavailable Mert Narayanan Attending Unavailable Mert Narayanan Admitting Unavailable Colette Sloan Attending Unavailable Herbert [place] Attending Unavailable No Family Physician given Primary Care Unavailable PROBLEMS PROBLEMS DATE TYPE CONDITION / CODE ATTENDING STATUS SOURCE 03/18/2018 Unknown R50.9 - Fever, Slaby Jermaine Active [place] unspecified / Community R50.9(ICD-10) Hospital Repository 03/19/2018 Unknown Z48.812 - Shahzad, Baron Chi Active [place] Encounter for [facility] aftercare Repository following surgery on the circulatory system / Z48.812(ICD-10) 02/25/2018 Admitting Unknown / NADIR JAMES Active [place] [facility] UNK[facility] 02/14/2018 Unknown M79.89 - Other Syeda Hayes Active [place] specified soft Community tissue disorders Hospital / M79.89(ICD-10) Repository PROCEDURES PROCEDURES No Procedure Records FoundRESULTS RESULTS CBC W/DIFF Collected: 09/09/2018 Status: F Source: [facility] 4:23 AM [facility] REPOSITORY Order Comment: [place]: M TYPE CODE TESTS RESULT OUT OF RANGE REFERENCE UNITS LAB L200.23120 4.5-11.0 K/CUMM WBC Normal 5.4 LAB L200.74650 3.90-5.30 M/CU MM Low RBC 2.50 LAB L200.10558 11.5-15.5 G/DL Low HGB 8.2 LAB L200.59304 35.0-47.0 % Low HCT 25.6 LAB L200.55109 80.0-99.0 fl High MCV 102.4 LAB L200.64259 32.0-36.0 GM/DL MCHC Normal 32.0 LAB L200.37282 11-14.5 High RDW 17.6 LAB L200.92899 9.4-12.4 Low MPV 9.0 LAB L200.35289 150-450 K/CU MM PLT Normal 232 LAB L200.24473 45-75 % NEUTROPHILS Normal % 72.6 LAB L200.24948 Less than 2 % IMMATURE Normal GRAN % 0.7 LAB L200.07259 20-40 % Low LYMPH % 13.8 LAB L200.46320 2-10 % High MONOCYTE % 10.1 LAB L200.54516 0-5 % EOSINOPHIL Normal % 2.6 LAB L200.41945 0-2 % BASOPHIL % Normal 0.2 LAB L200.90221 2.0-8.3 K/CU MM NEUTROPHIL Normal ABS 3.90 LAB L200.98756 Less than 2 K/CU MM IMMATR GRAN Normal ABS 0.00 LAB L200.46021 0.9-4.4 K/CU MM Low LYMPH ABS 0.80 LAB L200.66136 0.1-1.1 K/CU MM MONO ABS Normal 0.60 LAB L200.89012 0-0.5 K/CU MM EOS ABS Normal 0.10 LAB L200.55037 0-0.2 K/CU MM BASO ABS Normal 0.00 LAB L200.83409 Less than 1 % NRBC Normal 0.0 Performed By: #### L200.83056 #### [facility] [place] [address] CMP Collected: 09/09/2018 Status: F Source: [facility] 4:23 AM [facility] REPOSITORY Order Comment: [place]: TYPE CODE TESTS RESULT OUT OF RANGE REFERENCE UNITS LAB L500.57498 136-145 MMOL/L Normal NA 143 LAB L500.78629 3.5-5.1 MMOL/L Normal K 4.4 LAB L500.81453 98-107 MMOL/L High CL 108 LAB L500.28550 21-32 MMOL/L Normal CO2 29 LAB L500.13209 5-16 MMOL/L Normal AGAP 7 LAB L500.93556 70-100 MG/DL High GLU 251 Result Comment: 70-100- Normal Fasting; 100-125 Impaired Fasting; greater than 126 on more than one result- Diabetes. ADA guidelines. Results may be falsely elevated after the administration of Sulfapyridine. Results may be falsely depressed after the administration of Sulfasalazine. LAB L500.41577 7-26 MG/DL High BUN 68 LAB L500.52794 0.510-0.950 MG/DL Normal CREAT 0.615 Result Comment: Patients receiving either N-Acetylcysteine (NAC) or Metamizole prior to venipuncture, may have falsely depressed results. LAB L500.13075 15-24 High BUN/CREA 111 LAB L500.51986 6.0-8.5 GM/DL Low TP 4.9 LAB L500.91816 3.2-5.0 GM/DL Low ALBUMIN 1.8 LAB L500.89068 2.2-4.2 GM/DL Normal GLOBULIN 3.1 LAB L500.70387 0.8-2.0 Low A/G RATIO 0.6 LAB L500.04092 8.5-10.1 MG/DL Low CALCIUM TOTAL 7.7 LAB L500.60827 0.2-1.0 MG/DL Normal BILI TOTAL 0.2 LAB L500.69642 8-34 U/L Normal SGOT (AST) 23 Result Comment: RESULTS MAY BE FALSELY DEPRESSED AFTER THE ADMINISTRATION OF SULFASALAZINE AND/OR SULFAPYRIDINE. LAB L500.18749 13-61 IU/L Normal SGPT (ALT) 44 Result Comment: RESULTS MAY BE FALSELY DEPRESSED AFTER THE ADMINISTRATION OF SULFASALAZINE AND/OR SULFAPYRIDINE. LAB L500.37277 45-117 U/L High ALK PHOS 248 Performed By: #### L500.74773, L500.04752, L500.21735, L500.91541 #### [facility] [place] [address] GFR EST Collected: 09/09/2018 Status: F Source: [facility] 4:23 AM [facility] REPOSITORY Order Comment: [place]: M TYPE CODE TESTS RESULT OUT OF RANGE REFERENCE UNITS LAB L500.05557 ML/MIN Normal IF non-AFR Greater than AMER 60 LAB L500.10737 ML/MIN Normal IF Greater than AMER 60 Performed By: #### L500.79782, L500.11731, L500.33913, L500.73876 #### [facility] [address] [place] [address] PHOS Collected: 09/09/2018 Status: F Source: [facility] 4:23 AM [facility] REPOSITORY Order Comment: [place]: M TYPE CODE TESTS RESULT OUT OF RANGE REFERENCE UNITS LAB L500.33758 2.5-4.9 MG/DL Normal PHOS 2.8 Performed By: #### L500.92383, L500.49668, L500.39977, L500.73389 #### [facility] [address] [place] [address] MAGNESIUM Collected: 09/09/2018 Status: F Source: [facility] 4:23 AM [facility] REPOSITORY Order Comment: [place]: M TYPE CODE TESTS RESULT OUT OF RANGE REFERENCE UNITS LAB L500.19786 1.6-2.6 MG/DL Normal MAGNESIUM 1.6 Performed By: #### L500.14761, L500.42977, L500.71988, L500.63502 #### [facility] [place] [address] CBC W/DIFF Collected: 09/08/2018 Status: F Source: [facility] 6:28 AM [facility] REPOSITORY Order Comment: [place]: M TYPE CODE TESTS RESULT OUT OF RANGE REFERENCE UNITS LAB L200.47591 4.5-11.0 K/CUMM WBC Normal 5.5 LAB L200.52794 3.90-5.30 M/CU MM Low RBC 2.51 LAB L200.89829 11.5-15.5 G/DL Low HGB 8.3 LAB L200.85502 35.0-47.0 % Low HCT 26.4 LAB L200.12858 80.0-99.0 fl High MCV 105.2 LAB L200.10007 32.0-36.0 GM/DL Low MCHC 31.4 LAB L200.41664 11-14.5 High RDW 18.6 LAB L200.05876 9.4-12.4 Low MPV 9.0 LAB L200.37808 150-450 K/CU MM PLT Normal 203 LAB L200.01984 45-75 % NEUTROPHILS Normal % 72.7 LAB L200.62840 Less than 2 % IMMATURE Normal GRAN % 0.5 LAB L200.60411 20-40 % Low LYMPH % 13.4 LAB L200.27852 2-10 % High MONOCYTE % 11.0 LAB L200.08413 0-5 % EOSINOPHIL Normal % 2.2 LAB L200.61812 0-2 % BASOPHIL % Normal 0.2 LAB L200.78966 2.0-8.3 K/CU MM NEUTROPHIL Normal ABS 4.00 LAB L200.28087 Less than 2 K/CU MM IMMATR GRAN Normal ABS 0.00 LAB L200.85704 0.9-4.4 K/CU MM Low LYMPH ABS 0.70 LAB L200.67021 0.1-1.1 K/CU MM MONO ABS Normal 0.60 LAB L200.18809 0-0.5 K/CU MM EOS ABS Normal 0.10 LAB L200.56087 0-0.2 K/CU MM BASO ABS Normal 0.00 LAB L200.20987 Less than 1 % NRBC Normal 0.0 Performed By: #### L200.49653 #### [facility] [address] [place] [address] PT Collected: 09/08/2018 Status: F Source: [facility] 6:28 AM [facility] REPOSITORY Order Comment: [place]: M TYPE CODE TESTS RESULT OUT OF RANGE REFERENCE UNITS LAB L300.84626 0.9-1.1 High INR 2.85 Result Comment: Recommended PT INR therapeutic range for detention and prophylactic therapy is 2.0 - 3.0. For heart valve and shunt patients the range is 2.5 - 3.5. LAB L300.84664 9.5-12.0 SECONDS High 28.0 PTS Performed By: #### L300.30054 #### [facility] [address] [place] [address] CMP Collected: 09/08/2018 Status: F Source: [facility] 6:28 AM [facility] REPOSITORY Order Comment: [place]: M TYPE CODE TESTS RESULT OUT OF RANGE REFERENCE UNITS LAB L500.88467 136-145 MMOL/L Normal NA 143 LAB L500.65802 3.5-5.1 MMOL/L Normal K 4.7 LAB L500.52191 98-107 MMOL/L Normal CL 107 LAB L500.01717 21-32 MMOL/L Normal CO2 28 LAB L500.36903 5-16 MMOL/L Normal AGAP 8 LAB L500.29266 70-100 MG/DL High GLU 192 Result Comment: 70-100- Normal Fasting; 100-125 Impaired Fasting; greater than 126 on more than one result- Diabetes. ADA guidelines. Results may be falsely elevated after the administration of Sulfapyridine. Results may be falsely depressed after the administration of Sulfasalazine. LAB L500.22479 7-26 MG/DL High BUN 66 LAB L500.89792 0.510-0.950 MG/DL Normal CREAT 0.767 Result Comment: Patients receiving either N-Acetylcysteine (NAC) or Metamizole prior to venipuncture, may have falsely depressed results. LAB L500.60284 15-24 High BUN/CREA 86 LAB L500.69444 6.0-8.5 GM/DL Low TP 4.9 LAB L500.86709 3.2-5.0 GM/DL Low ALBUMIN 1.8 LAB L500.00540 2.2-4.2 GM/DL Normal GLOBULIN 3.1 LAB L500.08507 0.8-2.0 Low A/G RATIO 0.6 LAB L500.69349 8.5-10.1 MG/DL Low CALCIUM TOTAL 8.0 LAB L500.97000 0.2-1.0 MG/DL Normal BILI TOTAL 0.2 LAB L500.40504 8-34 U/L Normal SGOT (AST) 23 Result Comment: RESULTS MAY BE FALSELY DEPRESSED AFTER THE ADMINISTRATION OF SULFASALAZINE AND/OR SULFAPYRIDINE. LAB L500.15191 13-61 IU/L Normal SGPT (ALT) 50 Result Comment: RESULTS MAY BE FALSELY DEPRESSED AFTER THE ADMINISTRATION OF SULFASALAZINE AND/OR SULFAPYRIDINE. LAB L500.19912 45-117 U/L High ALK PHOS 239 Performed By: #### L500.23819, L500.24922 #### [facility] [address] [place] [address] GFR EST Collected: 09/08/2018 Status: F Source: [facility] 6:28 AM [facility] REPOSITORY Order Comment: [place]: M TYPE CODE TESTS RESULT OUT OF RANGE REFERENCE UNITS LAB L500.09505 ML/MIN Normal IF non-AFR Greater than AMER 60 LAB L500.70527 ML/MIN Normal IF Greater than AMER 60 Performed By: #### L500.94685, L500.15401 #### [facility] [address] [place] [address] CBC W/DIFF Collected: 09/07/2018 Status: F Source: [facility] 7:45 AM [facility] REPOSITORY Order Comment: [place]: M TYPE CODE TESTS RESULT OUT OF RANGE REFERENCE UNITS LAB L200.04684 4.5-11.0 K/CUMM WBC Normal 7.3 LAB L200.13152 3.90-5.30 M/CU MM Low RBC 2.42 LAB L200.86029 11.5-15.5 G/DL Low HGB 8.1 LAB L200.08681 35.0-47.0 % Low HCT 25.0 LAB L200.47089 80.0-99.0 fl High MCV 103.3 LAB L200.65663 32.0-36.0 GM/DL MCHC Normal 32.4 LAB L200.96709 11-14.5 High RDW 19.2 LAB L200.88731 9.4-12.4 Low MPV 8.9 LAB L200.07579 150-450 K/CU MM PLT Normal 197 LAB L200.72376 45-75 % High NEUTROPHILS % 77.3 LAB L200.35764 Less than 2 % IMMATURE Normal GRAN % 0.7 LAB L200.60970 20-40 % Low LYMPH % 9.5 LAB L200.08420 2-10 % High MONOCYTE % 10.3 LAB L200.90897 0-5 % EOSINOPHIL Normal % 2.1 LAB L200.18395 0-2 % BASOPHIL % Normal 0.1 LAB L200.72183 2.0-8.3 K/CU MM NEUTROPHIL Normal ABS 5.60 LAB L200.79990 Less than 2 K/CU MM IMMATR GRAN Normal ABS 0.10 LAB L200.16451 0.9-4.4 K/CU MM Low LYMPH ABS 0.70 LAB L200.94438 0.1-1.1 K/CU MM MONO ABS Normal 0.80 LAB L200.05145 0-0.5 K/CU MM EOS ABS Normal 0.20 LAB L200.72826 0-0.2 K/CU MM BASO ABS Normal 0.00 LAB L200.90487 Less than 1 % NRBC Normal 0.0 Performed By: #### L200.42334 #### [facility] [address] [place] [address] PT Collected: 09/07/2018 Status: F Source: [facility] 7:45 AM [facility] REPOSITORY Order Comment: [place]: M TYPE CODE TESTS RESULT OUT OF RANGE REFERENCE UNITS LAB L300.60037 0.9-1.1 High INR 3.58 Result Comment: 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 For heart valve and shunt patients the range is 2.5 - 3.5. LAB L300.28640 9.5-12.0 SECONDS High 34.5 PTS Performed By: #### L300.22331 #### [facility] [address] [place] [address] CMP Collected: 09/07/2018 Status: F Source: [facility] 7:45 AM [facility] REPOSITORY Order Comment: [place]: M TYPE CODE TESTS RESULT OUT OF RANGE REFERENCE UNITS LAB L500.49592 136-145 MMOL/L Normal NA 143 LAB L500.75335 3.5-5.1 MMOL/L Normal K 5.1 LAB L500.20049 98-107 MMOL/L Normal CL 106 LAB L500.01765 21-32 MMOL/L Normal CO2 28 LAB L500.77433 5-16 MMOL/L Normal AGAP 8 LAB L500.18974 70-100 MG/DL Normal GLU 87 Result Comment: 70-100- Normal Fasting; 100-125 Impaired Fasting; greater than 126 on more than one result- Diabetes. ADA guidelines. Results may be falsely elevated after the administration of Sulfapyridine. Results may be falsely depressed after the administration of Sulfasalazine. LAB L500.32878 7-26 MG/DL High BUN 74 LAB L500.51825 0.510-0.950 MG/DL Normal CREAT 0.939 Result Comment: Patients receiving either N-Acetylcysteine (NAC) or Metamizole prior to venipuncture, may have falsely depressed results. LAB L500.24279 15-24 High BUN/CREA 78 LAB L500.88782 6.0-8.5 GM/DL Low TP 4.4 LAB L500.11235 3.2-5.0 GM/DL Low ALBUMIN 1.6 LAB L500.40842 2.2-4.2 GM/DL Normal GLOBULIN 2.8 LAB L500.72164 0.8-2.0 Low A/G RATIO 0.6 LAB L500.81617 8.5-10.1 MG/DL Low CALCIUM TOTAL 8.0 LAB L500.02377 0.2-1.0 MG/DL Normal BILI TOTAL 0.3 LAB L500.59832 8-34 U/L Normal SGOT (AST) 32 Result Comment: RESULTS MAY BE FALSELY DEPRESSED AFTER THE ADMINISTRATION OF SULFASALAZINE AND/OR SULFAPYRIDINE. LAB L500.62358 13-61 IU/L Normal SGPT (ALT) 55 Result Comment: RESULTS MAY BE FALSELY DEPRESSED AFTER THE ADMINISTRATION OF SULFASALAZINE AND/OR SULFAPYRIDINE. LAB L500.58503 45-117 U/L High ALK PHOS 214 Performed By: #### L500.17645, L500.40531 #### [facility] [address] [place] [address] GFR EST Collected: 09/07/2018 Status: F Source: [facility] 7:45 AM [facility] REPOSITORY Order Comment: [place]: TYPE CODE TESTS RESULT OUT OF RANGE REFERENCE UNITS LAB L500.61227 ML/MIN Normal IF non-AFR 59 AMER LAB L500.00511 ML/MIN Normal IF Greater than AMER 60 Performed By: #### L500.14998, L500.93583 #### [facility] [address] [place] [address] PROG.NOTE Observed: 09/06/2018 Status: UNK Source: [facility] 12:06 PM [facility] REPOSITORY [facility] Patient Name: VENITA SMITH [address] [place] [address] Date of : [address] [place] [address] Unit Number: [id number] Progress Note-Physician Patient Status: REG RCR Attending Doctor: Colette Sloan DO Service Date: 09/06/18 1206 Subjective S: (2 ROS minimum) No fever, resting comfortably. Objective (ROS) Physical Exam Neurological / Psychiatric NAD Respiratory Normal Breathing Effort, Clear Lungs Cardiovascular Heart RRR, No M / R / G Gastrointestinal Non Tender, No Mass Skin No Rash, wounds covered Assessment and Plan Conclusion 1. 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 No growth of MRSA. 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 AcB was I to minocycline per [facility] micro lab, but very limited other options. Discharged to [facility] for planned 6 week course but course has been extended. At [facility], taken for partial flap placement 05/31. Bone cx with ESBL ecoli, CRE klebs, E faecium, diphtheroids. No Acinetobacter seen. Wound worsened. 06/07 changed bactrim to vanc. Both CRE and ESBL still sensitive to tetracycline. Gen surg consulted; CT abd/ pelvis showed fistula. Taken to OR 06/24 for resection and ostomy placement by Dr. Sanon. Sacral wound is overall much improved s/p ostomy and TPN. Has been on vanc, meropenem, and minocycline. Abd midline incision started to have persistent inflammation and draining pus. Wound cx with heavy purulence, cx with VRE and CRE klebs. Developed additional sites of pus able to be expressed from incision. CT showed no deeper abscess. 07/10 stopped vanc and meropenem, started linezolid and vabomere for additional coverage. Continuing minocycline. 07/10 overnight developed septic shock complicated by shock liver; LFTs improving but alk phos remains elevated with slower improved. Abd incision doing well now. Cxs neg except for single bcx with CoNS. Now off pressors. Wbc back to normal. Stop date for abx was 08/04/18; this would be a 6 week course starting from her fistula repair and diverting ostomy placement. Now s/p flap placement by Dr. Antunez on 11/16 without gross purulence seen in OR. Surg cx now with XDR AcB, CRE, and C.albicans. Wound with bloody drainage. Given cx and minimal improvement s/p OR, 08/07 restarted abx with colistin, vabomere, and lesli. Requested micro lab do AcB testing for minocycline and colistin. 08/14, more edema, worsened sacral and posterior thigh wounds with some purulence. She is nearly out of antibiotic options and wounds are only worsening. Abx also seem to be causing CA, hyperkalemia. Neph consulted. Added linezolid. 08/15 now with ileus. Breathing better. Stopped colistin. CXR with no new changes. Since then remains on linezolid, vabomere, and fluconazole. Now DNR-CCA. Cr and K doing better off of colistin. Had a long discussion with her son Karen 08/28/18. Wounds on sacrum and calf have worsened overall since her last surgery. She was unable to tolerate colistin. From the infection perspective, I think we are reaching the point of futility. It does not seem there are any other further surgical or medical options. Chance of cure and her resuming a normal life are minimal. It would be reasonable to focus more on quality of life and try to get her closer to home on oral abx (possibly with hospice care). This is made more complicated by her age, good mental status, minimal focal symptoms, and high expectations. 08/30 platelets continue to drop, so stopped linezolid. Discharge plan would be for her to go to [facility] on po minocycline 100mg bid with 200mg loading dose and flagyl 500mg tid for 2 week course. Wounds relatively stable at this point. Rx written and placed in chart. Will continue to follow. D/w wound care nurse. Disclaimer This dictation was created using voice recognition software. Phonetic and/or minor grammatical errors may exist. eSign Date and Time Syeda Palmer MD Verified/Reviewed by 09/06/18 1207 PT Collected: 09/06/2018 Status: F Source: [facility] 5:37 AM [facility] REPOSITORY Order Comment: [place]: M TYPE CODE TESTS RESULT OUT OF RANGE REFERENCE UNITS LAB L300.77663 0.9-1.1 High INR 2.50 Result Comment: Recommended PT INR therapeutic range for detention and prophylactic therapy is 2.0 - 3.0. For heart valve and shunt patients the range is 2.5 - 3.5. LAB L300.26147 9.5-12.0 SECONDS High 24.8 PTS Performed By: #### L300.07863 #### [facility] [address] [place] [id number] CBC W/DIFF Collected: 2018 Status: F Source: [facility] 5:09 AM [facility] REPOSITORY Order Comment: [place]: TYPE CODE TESTS RESULT OUT OF RANGE REFERENCE UNITS LAB L200.17853 4.5-11.0 K/CUMM WBC Normal 7.2 LAB L200.99746 3.90-5.30 M/CU MM Low RBC 2.64 LAB L200.36139 11.5-15.5 G/DL Low HGB 8.8 LAB L200.32349 35.0-47.0 % Low HCT 27.3 LAB L200.21925 80.0-99.0 fl High MCV 103.4 LAB L200.20480 32.0-36.0 GM/DL MCHC Normal 32.2 LAB L200.00633 11-14.5 High RDW 19.9 LAB L200.24198 9.4-12.4 Low MPV 8.6 LAB L200.23604 150-450 K/CU MM PLT Normal 202 LAB L200.69645 45-75 % NEUTROPHILS Normal % 69.4 LAB L200.90347 Less than 2 % IMMATURE Normal GRAN % 0.7 LAB L200.13299 20-40 % Low LYMPH % 16.4 LAB L200.59696 2-10 % High MONOCYTE % 11.4 LAB L200.61116 0-5 % EOSINOPHIL Normal % 1.8 LAB L200.27197 0-2 % BASOPHIL % Normal 0.3 LAB L200.81731 2.0-8.3 K/CU MM NEUTROPHIL Normal ABS 5.00 LAB L200.51030 Less than 2 K/CU MM IMMATR GRAN Normal ABS 0.10 LAB L200.11425 0.9-4.4 K/CU MM LYMPH ABS Normal 1.20 LAB L200.56463 0.1-1.1 K/CU MM MONO ABS Normal 0.80 LAB L200.12210 0-0.5 K/CU MM EOS ABS Normal 0.10 LAB L200.15904 0-0.2 K/CU MM BASO ABS Normal 0.00 LAB L200.42442 Less than 1 % NRBC Normal 0.0 Performed By: #### L200.72518 #### [facility] [address] [place] [address] PT Collected: 2018 Status: F Source: [facility] 5:09 AM [facility] REPOSITORY Order Comment: [place]: M TYPE CODE TESTS RESULT OUT OF RANGE REFERENCE UNITS LAB L300.25892 0.9-1.1 High INR 1.86 Result Comment: 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 For heart valve and shunt patients the range is 2.5 - 3.5. LAB L300.29106 9.5-12.0 SECONDS High 18.8 PTS Performed By: #### L300.36074 #### [facility] [address] [place] [address] CMP Collected: 2018 Status: F Source: [facility] 5:09 AM [facility] REPOSITORY Order Comment: [place]: M TYPE CODE TESTS RESULT OUT OF RANGE REFERENCE UNITS LAB L500.57466 136-145 MMOL/L Normal NA 145 LAB L500.51655 3.5-5.1 MMOL/L Normal K 5.0 LAB L500.88208 98-107 MMOL/L High CL 109 LAB L500.25578 21-32 MMOL/L Normal CO2 28 LAB L500.56630 5-16 MMOL/L Normal AGAP 8 LAB L500.26577 70-100 MG/DL High GLU 116 Result Comment: 70-100- Normal Fasting; 100-125 Impaired Fasting; greater than 126 on more than one result- Diabetes. ADA guidelines. Results may be falsely elevated after the administration of Sulfapyridine. Results may be falsely depressed after the administration of Sulfasalazine. LAB L500.93336 7-26 MG/DL High BUN 61 LAB L500.48692 0.510-0.950 MG/DL Normal CREAT 0.603 Result Comment: Patients receiving either N-Acetylcysteine (NAC) or Metamizole prior to venipuncture, may have falsely depressed results. LAB L500.50049 15-24 High BUN/CREA 102 LAB L500.50469 6.0-8.5 GM/DL Low TP 5.2 LAB L500.77603 3.2-5.0 GM/DL Low ALBUMIN 2.1 LAB L500.74935 2.2-4.2 GM/DL Normal GLOBULIN 3.1 LAB L500.45480 0.8-2.0 Low A/G RATIO 0.7 LAB L500.32484 8.5-10.1 MG/DL Low CALCIUM TOTAL 8.0 LAB L500.64177 0.2-1.0 MG/DL Normal BILI TOTAL 0.2 LAB L500.17848 8-34 U/L Normal SGOT (AST) 24 Result Comment: RESULTS MAY BE FALSELY DEPRESSED AFTER THE ADMINISTRATION OF SULFASALAZINE AND/OR SULFAPYRIDINE. LAB L500.85376 13-61 IU/L Normal SGPT (ALT) 51 Result Comment: RESULTS MAY BE FALSELY DEPRESSED AFTER THE ADMINISTRATION OF SULFASALAZINE AND/OR SULFAPYRIDINE. LAB L500.68863 45-117 U/L High ALK PHOS 231 Performed By: #### L500.84446, L500.78610, L500.95801, L500.91132 #### [facility] [address] [place] [address] GFR EST Collected: 2018 Status: F Source: [facility] 5:09 AM [facility] REPOSITORY Order Comment: [place]: M TYPE CODE TESTS RESULT OUT OF RANGE REFERENCE UNITS LAB L500.43717 ML/MIN Normal IF non-AFR Greater than AMER 60 LAB L500.88768 ML/MIN Normal IF Greater than AMER 60 Performed By: #### L500.05589, L500.41325, L500.55670, L500.17752 #### [facility] [address] [place] [address] PHOS Collected: 2018 Status: F Source: [facility] 5:09 AM [facility] REPOSITORY Order Comment: [place]: M TYPE CODE TESTS RESULT OUT OF RANGE REFERENCE UNITS LAB L500.43661 2.5-4.9 MG/DL Normal PHOS 3.4 Performed By: #### L500.03623, L500.72182, L500.73896, L500.84060 #### [facility] [place] [address] MAGNESIUM Collected: 2018 Status: F Source: [facility] 5:09 AM [facility] REPOSITORY Order Comment: [place]: TYPE CODE TESTS RESULT OUT OF RANGE REFERENCE UNITS LAB L500.04957 1.6-2.6 MG/DL Normal MAGNESIUM 1.7 Performed By: #### L500.02113, L500.77600, L500.61752, L500.09374 #### [facility] [address] [place] [address] PROG.NOTE Observed: 09/04/2018 Status: UNK Source: [facility] 10:39 AM [facility] REPOSITORY [facility] Patient Name: VENITA SMITH [address] [place] [address] Date of : [address] [place], [place] [address] Unit Number: [id number] Progress Note-Physician Patient Status: REG RCR Attending Doctor: Colette Sloan DO Service Date: 09/04/18 1039 Subjective S: (2 ROS minimum) Wound care reports heavy drainage on bed pad today. No fever, no events overnight. Objective (ROS) Physical Exam Neurological / Psychiatric Alert Respiratory Normal Breathing Effort, Clear Lungs Cardiovascular Heart RRR, No M / R / G Gastrointestinal Non Tender, No Mass Skin No Rash (no new rash) Assessment and Plan Conclusion 1. 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 No growth of MRSA. 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 AcB was I to minocycline per [facility] lab, but very limited other options. Discharged to [facility] for planned 6 week course but course has been extended. At [facility], taken for partial flap placement 05/31. Bone cx with ESBL ecoli, CRE klebs, E faecium, diphtheroids. No Acinetobacter seen. Wound worsened. 06/07 changed bactrim to vanc. Both CRE and ESBL still sensitive to tetracycline. Gen surg consulted; CT abd/ pelvis showed fistula. Taken to OR 06/24 for resection and ostomy placement by Dr. Sanon. Sacral wound is overall much improved s/p ostomy and TPN. Has been on vanc, meropenem, and minocycline. Abd midline incision started to have persistent inflammation and draining pus. Wound cx with heavy purulence, cx with VRE and CRE klebs. Developed additional sites of pus able to be expressed from incision. CT showed no deeper abscess. 07/10 stopped vanc and meropenem, started linezolid and vabomere for additional coverage. Continuing minocycline. 07/10 overnight developed septic shock complicated by shock liver; LFTs improving but alk phos remains elevated with slower improved. Abd incision doing well now. Cxs neg except for single bcx with CoNS. Now off pressors. Wbc back to normal. Stop date for abx was 08/04/18; this would be a 6 week course starting from her fistula repair and diverting ostomy placement. Now s/p flap placement by Dr. Antunez on 08/02 without gross purulence seen in OR. Surg cx now with XDR AcB, CRE, and C.albicans. Wound with bloody drainage. Given cx and minimal improvement s/p OR, 08/07 restarted abx with colistin, vabomere, and lesli. Requested micro lab do AcB testing for minocycline and colistin. 08/14, more edema, worsened sacral and posterior thigh wounds with some purulence. She is nearly out of antibiotic options and wounds are only worsening. Abx also seem to be causing CA, hyperkalemia. Neph consulted. Added linezolid. 08/15 now with ileus. Breathing better. Stopped colistin. CXR with no new changes. Since then remains on linezolid, vabomere, and fluconazole. Now DNR-CCA. Cr and K doing better off of colistin. Had a long discussion with her son Karen 08/28/18. Wounds on sacrum and calf have worsened overall since her last surgery. She was unable to tolerate colistin. From the infection perspective, I think we are reaching the point of futility. It does not seem there are any other further surgical or medical options. Chance of cure and her resuming a normal life are minimal. It would be reasonable to focus more on quality of life and try to get her closer to home on oral abx (possibly with hospice care). This is made more complicated by her age, good mental status, minimal focal symptoms, and high expectations. 08/30 platelets continue to drop, so stopped linezolid. Discharge plan would be for her to go to [facility] on po minocycline 100mg bid with 200mg loading dose and flagyl 500mg tid for 2 week course. Wounds relatively stable at this point. Will continue to follow. D/w wound care nurse and block and case maker. Disclaimer This dictation was created using voice recognition software. Phonetic and/or minor grammatical errors may exist. eSign Date and Time Syeda Palmer MD Verified/Reviewed by 09/04/18 1041 PT Collected: 09/04/2018 Status: F Source: [facility] 4:37 AM [facility] REPOSITORY Order Comment: [place]: M TYPE CODE TESTS RESULT OUT OF RANGE REFERENCE UNITS LAB L300.59446 0.9-1.1 High INR 1.58 Result Comment: 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 For heart valve and shunt patients the range is 2.5 - 3.5. LAB L300.64141 9.5-12.0 SECONDS High 16.2 PTS Performed By: #### L300.37006 #### [facility] [place] [address] PT Collected: 09/03/2018 Status: F Source: [facility] 4:11 AM [facility] REPOSITORY Order Comment: [place]: M TYPE CODE TESTS RESULT OUT OF RANGE REFERENCE UNITS LAB L300.98910 0.9-1.1 High INR 1.47 Result Comment: 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 For heart valve and shunt patients the range is 2.5 - 3.5. LAB L300.58960 9.5-12.0 SECONDS High 15.1 PTS Performed By: #### L300.81270 #### [facility] [place] [address] PROG.NOTE Observed: 09/02/2018 Status: UNK Source: [facility] 10:15 AM [facility] REPOSITORY [facility] Patient Name: VENITA SMITH [address] Date of : [address] [place] [address] Unit Number: [id number] Progress Note-Physician Patient Status: REG RCR Attending Doctor: Colette Sloan DO Service Date: 09/02/18 1015 Subjective S: (2 ROS minimum) Feeling ok, wants to be transferred soon if possible. No fever, no abd pain, no SOB. Objective (ROS) Physical Exam Neurological / Psychiatric Alert Respiratory Normal Breathing Effort, Clear Lungs Cardiovascular Heart RRR, No M / R / G Gastrointestinal Non Tender, No Mass Skin ulcers bandaged Assessment and Plan Conclusion 1. 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 No growth of MRSA. 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 AcB was I to minocycline per [facility] micro lab, but very limited other options. Discharged to [facility] for planned 6 week course but course has been extended. At [facility], taken for partial flap placement 05/31. Bone cx with ESBL ecoli, CRE klebs, E faecium, diphtheroids. No Acinetobacter seen. Wound worsened. 06/07 changed bactrim to vanc. Both CRE and ESBL still sensitive to tetracycline. Gen surg consulted; CT abd/ pelvis showed fistula. Taken to OR 06/24 for resection and ostomy placement by Dr. Sanon. Sacral wound is overall much improved s/p ostomy and TPN. Has been on vanc, meropenem, and minocycline. Abd midline incision started to have persistent inflammation and draining pus. Wound cx with heavy purulence, cx with VRE and CRE klebs. Developed additional sites of pus able to be expressed from incision. CT showed no deeper abscess. 07/10 stopped vanc and meropenem, started linezolid and vabomere for additional coverage. Continuing minocycline. 07/10 overnight developed septic shock complicated by shock liver; LFTs improving but alk phos remains elevated with slower improved. Abd incision doing well now. Cxs neg except for single bcx with CoNS. Now off pressors. Wbc back to normal. Stop date for abx was 08/04/18; this would be a 6 week course starting from her fistula repair and diverting ostomy placement. Now s/p flap placement by Dr. Antunez on 08/02 without gross purulence seen in OR. Surg cx now with XDR AcB, CRE, and C.albicans. Wound with bloody drainage. Given cx and minimal improvement s/p OR, 08/07 restarted abx with colistin, vabomere, and lesli. Requested micro lab do AcB testing for minocycline and colistin. 08/14, more edema, worsened sacral and posterior thigh wounds with some purulence. She is nearly out of antibiotic options and wounds are only worsening. Abx also seem to be causing CA, hyperkalemia. Neph consulted. Added linezolid. 08/15 now with ileus. Breathing better. Stopped colistin. CXR with no new changes. Since then remains on linezolid, vabomere, and fluconazole. Now DNR-CCA. Cr and K doing better off of colistin. Had a long discussion with her son Karen 08/28/18. Wounds on sacrum and calf have worsened overall since her last surgery. She was unable to tolerate colistin. From the infection perspective, I think we are reaching the point of futility. It does not seem there are any other further surgical or medical options. Chance of cure and her resuming a normal life are minimal. It would be reasonable to focus more on quality of life and try to get her closer to home on oral abx (possibly with hospice care). This is made more complicated by her age, good mental status, minimal focal symptoms, and high expectations. The son will talk with his mother about overall plan and goals of care. 08/30 platelets continue to drop, so stopped linezolid. Discharge plan would be for her to go to [facility] on po minocycline 100mg bid with 200mg loading dose and flagyl 500mg tid for 2 week course. Wounds relatively stable at this point. Will continue to follow. D/w wound care nurse and block and case maker. Disclaimer This dictation was created using voice recognition software. Phonetic and/or minor grammatical errors may exist. eSign Date and Time Syeda Palmer MD Verified/Reviewed by 09/02/18 1020 CBC W/DIFF Collected: 09/02/2018 Status: F Source: [facility] 4:44 AM [facility] REPOSITORY Order Comment: [place]: M TYPE CODE TESTS RESULT OUT OF RANGE REFERENCE UNITS LAB L200.56620 4.5-11.0 K/CU MM WBC Normal 6.7 LAB L200.26309 3.90-5.30 M/CU MM Low RBC 2.61 LAB L200.96933 11.5-15.5 G/DL Low HGB 8.7 LAB L200.22578 35.0-47.0 % Low HCT 27.3 LAB L200.27473 80.0-99.0 fl High MCV 104.6 LAB L200.20196 32.0-36.0 GM/DL Low MCHC 31.9 LAB L200.64172 11-14.5 High RDW 19.5 LAB L200.68918 9.4-12.4 Low MPV 8.9 LAB L200.75252 150-450 K/CU MM PLT Normal 156 LAB L200.68344 45-75 % NEUTROPHILS Normal % 70.3 LAB L200.64160 Less than 2 % IMMATURE Normal GRAN % 0.6 LAB L200.96509 20-40 % Low LYMPH % 15.8 LAB L200.90172 2-10 % High MONOCYTE % 10.1 LAB L200.03741 0-5 % EOSINOPHIL Normal % 2.5 LAB L200.03489 0-2 % BASOPHIL % Normal 0.7 LAB L200.67252 2.0-8.3 K/CU MM NEUTROPHIL Normal ABS 4.70 LAB L200.10459 Less than 2 K/CU MM IMMATR GRAN Normal ABS 0.00 LAB L200.19451 0.9-4.4 K/CU MM LYMPH ABS Normal 1.10 LAB L200.73229 0.1-1.1 K/CU MM MONO ABS Normal 0.70 LAB L200.00517 0-0.5 K/CU MM EOS ABS Normal 0.20 LAB L200.22572 0-0.2 K/CU MM BASO ABS Normal 0.10 LAB L200.24968 Less than 1 % NRBC Normal 0.0 Performed By: #### L200.11428 #### [facility] [address] [place] [address] PT Collected: 09/02/2018 Status: F Source: [facility] 4:44 AM [facility] REPOSITORY Order Comment: [place]: M TYPE CODE TESTS RESULT OUT OF RANGE REFERENCE UNITS LAB L300.51334 0.9-1.1 High INR 1.47 Result Comment: Recommended PT INR therapeutic range for detention and prophylactic therapy is 2.0 - 3.0. For heart valve and shunt patients the range is 2.5 - 3.5. LAB L300.65068 9.5-12.0 SECONDS High 15.1 PTS Performed By: #### L300.78720 #### [facility] [address] [place] [address] CMP Collected: 09/02/2018 Status: F Source: [facility] 4:44 AM [facility] REPOSITORY Order Comment: [place]: M TYPE CODE TESTS RESULT OUT OF RANGE REFERENCE UNITS LAB L500.69013 136-145 MMOL/L Normal NA 145 LAB L500.83010 3.5-5.1 MMOL/L High K 5.4 LAB L500.55738 98-107 MMOL/L High CL 109 LAB L500.95184 21-32 MMOL/L Normal CO2 27 LAB L500.75302 5-16 MMOL/L Normal AGAP 9 LAB L500.26955 70-100 MG/DL High GLU 103 Result Comment: 70-100- Normal Fasting; 100-125 Impaired Fasting; greater than 126 on more than one result- Diabetes. ADA guidelines. Results may be falsely elevated after the administration of Sulfapyridine. Results may be falsely depressed after the administration of Sulfasalazine. LAB L500.03360 7-26 MG/DL High BUN 61 LAB L500.38941 0.510-0.950 MG/DL Normal CREAT 0.594 Result Comment: Patients receiving either N-Acetylcysteine (NAC) or Metamizole prior to venipuncture, may have falsely depressed results. LAB L500.85875 15-24 High BUN/CREA 102 LAB L500.98880 6.0-8.5 GM/DL Low TP 5.2 LAB L500.02299 3.2-5.0 GM/DL Low ALBUMIN 2.0 LAB L500.16747 2.2-4.2 GM/DL Normal GLOBULIN 3.2 LAB L500.83228 0.8-2.0 Low A/G RATIO 0.6 LAB L500.91302 8.5-10.1 MG/DL Low CALCIUM TOTAL 8.3 LAB L500.78255 0.2-1.0 MG/DL Normal BILI TOTAL 0.2 LAB L500.36402 8-34 U/L High SGOT (AST) 39 Result Comment: RESULTS MAY BE FALSELY DEPRESSED AFTER THE ADMINISTRATION OF SULFASALAZINE AND/OR SULFAPYRIDINE. LAB L500.04239 13-61 IU/L Normal SGPT (ALT) 61 Result Comment: RESULTS MAY BE FALSELY DEPRESSED AFTER THE ADMINISTRATION OF SULFASALAZINE AND/OR SULFAPYRIDINE. LAB L500.54161 45-117 U/L High ALK PHOS 260 Performed By: #### L500.19727, L500.61918, L500.76339, L500.72581, L500.12263 #### [facility] [address] [place] [address] GFR EST Collected: 09/02/2018 Status: F Source: [facility] 4:44 AM [facility] REPOSITORY Order Comment: [place]: M TYPE CODE TESTS RESULT OUT OF RANGE REFERENCE UNITS LAB L500.53987 ML/MIN Normal IF non-AFR Greater than AMER 60 LAB L500.75250 ML/MIN Normal IF Greater than AMER 60 Performed By: #### L500.05222, L500.40110, L500.42273, L500.78187, L500.38983 #### [facility] [address] [place] [address] PHOS Collected: 09/02/2018 Status: F Source: [facility] 4:44 AM [facility] REPOSITORY Order Comment: [place]: M TYPE CODE TESTS RESULT OUT OF RANGE REFERENCE UNITS LAB L500.99188 2.5-4.9 MG/DL Normal PHOS 3.1 Performed By: #### L500.13268, L500.74259, L500.06123, L500.36520, L500.41396 #### [facility] [address] [place] [address] MAGNESIUM Collected: 09/02/2018 Status: F Source: [facility] 4:44 AM [facility] REPOSITORY Order Comment: [place]: M TYPE CODE TESTS RESULT OUT OF RANGE REFERENCE UNITS LAB L500.99658 1.6-2.6 MG/DL Normal MAGNESIUM 1.8 Performed By: #### L500.34181, L500.95728, L500.65840, L500.18385, L500.25619 #### [facility] [address] [place] [id number] TRIG Collected: 09/02/2018 Status: F Source: [facility] 4:44 AM [facility] REPOSITORY Order Comment: [place]: M TYPE CODE TESTS RESULT OUT OF RANGE REFERENCE UNITS LAB L500.17710 30-149 MG/DL High TRIG 200 Result Comment: Patients receiving either N-Acetylcysteine (NAC) or Metamizole prior to venipuncture, may have falsely depressed results. Performed By: #### L500.24546, L500.10572, L500.38317, L500.49311, L500.98957 #### [facility] [address] [place] [address] CBC W/DIFF Collected: 08/31/2018 Status: F Source: [facility] 4:41 AM [facility] REPOSITORY Order Comment: [place]: M TYPE CODE TESTS RESULT OUT OF RANGE REFERENCE UNITS LAB L200.14972 4.5-11.0 K/CU MM WBC Normal 6.9 LAB L200.11696 3.90-5.30 M/CU MM Low RBC 2.54 LAB L200.14477 11.5-15.5 G/DL Low HGB 8.3 LAB L200.35828 35.0-47.0 % Low HCT 26.2 LAB L200.78999 80.0-99.0 fl High MCV 103.1 LAB L200.88755 32.0-36.0 GM/DL Low MCHC 31.7 LAB L200.02180 11-14.5 High RDW 19.2 LAB L200.29123 9.4-12.4 Low MPV 8.8 LAB L200.72860 150-450 K/CU MM PLT Normal 156 LAB L200.67935 45-75 % NEUTROPHILS Normal % 72.1 LAB L200.99354 Less than 2 % IMMATURE Normal GRAN % 0.6 LAB L200.59401 20-40 % Low LYMPH % 15.1 LAB L200.06042 2-10 % MONOCYTE % Normal 9.0 LAB L200.86228 0-5 % EOSINOPHIL Normal % 2.8 LAB L200.23737 0-2 % BASOPHIL % Normal 0.4 LAB L200.39596 2.0-8.3 K/CU MM NEUTROPHIL Normal ABS 5.00 LAB L200.91337 Less than 2 K/CU MM IMMATR GRAN Normal ABS 0.00 LAB L200.85801 0.9-4.4 K/CU MM LYMPH ABS Normal 1.00 LAB L200.84305 0.1-1.1 K/CU MM MONO ABS Normal 0.60 LAB L200.10090 0-0.5 K/CU MM EOS ABS Normal 0.20 LAB L200.73359 0-0.2 K/CU MM BASO ABS Normal 0.00 LAB L200.17470 Less than 1 % NRBC Normal 0.0 Performed By: #### L200.04125 #### [facility] [address] [place] [address] PT Collected: 08/31/2018 Status: F Source: [facility] 4:41 AM [facility] REPOSITORY Order Comment: [place]: M TYPE CODE TESTS RESULT OUT OF RANGE REFERENCE UNITS LAB L300.38086 0.9-1.1 High INR 1.54 Result Comment: Recommended PT INR therapeutic range for detention and prophylactic therapy is 2.0 - 3.0. For heart valve and shunt patients the range is 2.5 - 3.5. LAB L300.10965 9.5-12.0 SECONDS High 15.8 PTS Performed By: #### L300.47102 #### [facility] [address] [place] [address] CMP Collected: 08/31/2018 Status: F Source: [facility] 4:41 AM [facility] REPOSITORY Order Comment: [place]: M TYPE CODE TESTS RESULT OUT OF RANGE REFERENCE UNITS LAB L500.78631 136-145 MMOL/L Normal NA 144 LAB L500.27320 3.5-5.1 MMOL/L High K 5.2 LAB L500.01112 98-107 MMOL/L High CL 109 LAB L500.76674 21-32 MMOL/L Normal CO2 29 LAB L500.32365 5-16 MMOL/L Normal AGAP 6 LAB L500.86794 70-100 MG/DL High GLU 127 Result Comment: 70-100- Normal Fasting; 100-125 Impaired Fasting; greater than 126 on more than one result- Diabetes. ADA guidelines. Results may be falsely elevated after the administration of Sulfapyridine. Results may be falsely depressed after the administration of Sulfasalazine. LAB L500.42222 7-26 MG/DL High BUN 66 LAB L500.30761 0.510-0.950 MG/DL Normal CREAT 0.634 Result Comment: Patients receiving either N-Acetylcysteine (NAC) or Metamizole prior to venipuncture, may have falsely depressed results. LAB L500.66399 15-24 High BUN/CREA 104 LAB L500.14754 6.0-8.5 GM/DL Low TP 5.0 LAB L500.33310 3.2-5.0 GM/DL Low ALBUMIN 2.0 LAB L500.63687 2.2-4.2 GM/DL Normal GLOBULIN 3.0 LAB L500.95663 0.8-2.0 Low A/G RATIO 0.6 LAB L500.04019 8.5-10.1 MG/DL Low CALCIUM TOTAL 8.0 LAB L500.47734 0.2-1.0 MG/DL Normal BILI TOTAL 0.2 LAB L500.79733 8-34 U/L Normal SGOT (AST) 26 Result Comment: RESULTS MAY BE FALSELY DEPRESSED AFTER THE ADMINISTRATION OF SULFASALAZINE AND/OR SULFAPYRIDINE. LAB L500.10932 13-61 IU/L Normal SGPT (ALT) 43 Result Comment: RESULTS MAY BE FALSELY DEPRESSED AFTER THE ADMINISTRATION OF SULFASALAZINE AND/OR SULFAPYRIDINE. LAB L500.26441 45-117 U/L High ALK PHOS 239 Performed By: #### L500.50343, L500.58483 #### [facility] [address] [place] [address] GFR EST Collected: 08/31/2018 Status: F Source: [facility] 4:41 AM [facility] REPOSITORY Order Comment: [place]: M TYPE CODE TESTS RESULT OUT OF RANGE REFERENCE UNITS LAB L500.28195 ML/MIN Normal IF non-AFR Greater than AMER 60 LAB L500.17509 ML/MIN Normal IF Greater than AMER 60 Performed By: #### L500.18892, L500.62717 #### [facility] [address] [place] [address] PROG.NOTE Observed: 08/30/2018 Status: UNK Source: [facility] 9:56 AM [facility] REPOSITORY [facility] Patient Name: VENITA SMITH [facility] Date of : [address] [address] Unit Number: [id number] Progress Note-Physician Patient Status: REG RCR Attending Doctor: Colette Sloan DO Service Date: 08/30/18 0956 Subjective S: (2 ROS minimum) Feeling ok, no fever, no SOB or abd pain. Objective (ROS) Physical Exam Neurological / Psychiatric Alert Respiratory Normal Breathing Effort, Clear Lungs Cardiovascular Heart RRR, No M / R / G Gastrointestinal Non Tender, No Mass Skin wounds stable. Redness on face improved. Assessment and Plan Conclusion 1. 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 No growth of MRSA. 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 AcB was I to minocycline per [facility] lab, but very limited other options. Discharged to [facility] for planned 6 week course but course has been extended. At [facility], taken for partial flap placement 05/31. Bone cx with ESBL ecoli, CRE klebs, E faecium, diphtheroids. No Acinetobacter seen. Wound worsened. 06/07 changed bactrim to vanc. Both CRE and ESBL still sensitive to tetracycline. Gen surg consulted; CT abd/ pelvis showed fistula. Taken to OR 06/24 for resection and ostomy placement by Dr. Sanon. Sacral wound is overall much improved s/p ostomy and TPN. Has been on vanc, meropenem, and minocycline. Abd midline incision started to have persistent inflammation and draining pus. Wound cx with heavy purulence, cx with VRE and CRE klebs. Developed additional sites of pus able to be expressed from incision. CT showed no deeper abscess. 07/10 stopped vanc and meropenem, started linezolid and vabomere for additional coverage. Continuing minocycline. 07/10 overnight developed septic shock complicated by shock liver; LFTs improving but alk phos remains elevated with slower improved. Abd incision doing well now. Cxs neg except for single bcx with CoNS. Now off pressors. Wbc back to normal. Stop date for abx was 08/04/18; this would be a 6 week course starting from her fistula repair and diverting ostomy placement. Now s/p flap placement by Dr. Antunez on 08/02 without gross purulence seen in OR. Surg cx now with XDR AcB, CRE, and C.albicans. Wound with bloody drainage. Given cx and minimal improvement s/p OR, 08/07 restarted abx with colistin, vabomere, and lesli. Requested micro lab do AcB testing for minocycline and colistin. 08/14, more edema, worsened sacral and posterior thigh wounds with some purulence. She is nearly out of antibiotic options and wounds are only worsening. Abx also seem to be causing CA, hyperkalemia. Neph consulted. Added linezolid. 08/15 now with ileus. Breathing better. Stopped colistin. CXR with no new changes. Since then remains on linezolid, vabomere, and fluconazole. Now DNR-CCA. Cr and K doing better off of colistin. Had a long discussion with her son Karen 08/28/18. Wounds on sacrum and calf have worsened since her last surgery. She was unable to tolerate colistin. From the infection perspective, I think we are reaching the point of futility. It does not seem there are any other further surgical or medical options. Chance of cure and her resuming a normal life are minimal. It would be reasonable to focus more on quality of life and try to get her closer to home on oral abx (possibly with hospice care). This is made more complicated by her age, good mental status, minimal focal symptoms, and high expectations. The son will talk with his mother about overall plan and goals of care. 08/30 platelets continue to drop, so will stop linezolid. Will continue to follow. D/w wound care nurse. Disclaimer This dictation was created using voice recognition software. Phonetic and/or minor grammatical errors may exist. eSign Date and Time Syeda Palmer MD Verified/Reviewed by 08/30/18 0958 PT Collected: 08/30/2018 Status: F Source: [facility] 4:19 AM [facility] REPOSITORY Order Comment: [place]: M TYPE CODE TESTS RESULT OUT OF RANGE REFERENCE UNITS LAB L300.98275 0.9-1.1 High INR 1.86 Result Comment: 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 For heart valve and shunt patients the range is 2.5 - 3.5. LAB L300.03592 9.5-12.0 SECONDS High 18.8 PTS Performed By: #### L300.70663 #### [facility] [address] [place] [address] PROG.NOTE Observed: 08/29/2018 Status: UNK Source: [facility] 12:11 PM [facility] REPOSITORY [facility] Patient Name: VENITA SMITH [address] [place] [address] [place] Date of : [address] [address] Unit Number: [id number] Progress Note-Physician Patient Status: REG RCR Attending Doctor: Colette Sloan DO Service Date: 08/29/18 1211 Subjective S: (2 ROS minimum) Feeling about the same today. Denies fever, cough, SOB, pain. Objective (ROS) Physical Exam Neurological / Psychiatric Alert Respiratory Normal Breathing Effort, Clear Lungs Cardiovascular Heart RRR, No M / R / G Gastrointestinal Non Tender, No Mass Skin No Rash, wounds stable Assessment and Plan Conclusion 1. 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 No growth of MRSA. 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 AcB was I to minocycline per [facility] lab, but very limited other options. Discharged to [facility] for planned 6 week course but course has been extended. At [facility], taken for partial flap placement 05/31. Bone cx with ESBL ecoli, CRE klebs, E faecium, diphtheroids. No Acinetobacter seen. Wound worsened. 06/07 changed bactrim to vanc. Both CRE and ESBL still sensitive to tetracycline. Gen surg consulted; CT abd/ pelvis showed fistula. Taken to OR 06/24 for resection and ostomy placement by Dr. Sanon. Sacral wound is overall much improved s/p ostomy and TPN. Has been on vanc, meropenem, and minocycline. Abd midline incision started to have persistent inflammation and draining pus. Wound cx with heavy purulence, cx with VRE and CRE klebs. Developed additional sites of pus able to be expressed from incision. CT showed no deeper abscess. 07/10 stopped vanc and meropenem, started linezolid and vabomere for additional coverage. Continuing minocycline. 07/10 overnight developed septic shock complicated by shock liver; LFTs improving but alk phos remains elevated with slower improved. Abd incision doing well now. Cxs neg except for single bcx with CoNS. Now off pressors. Wbc back to normal. Stop date for abx was 08/04/18; this would be a 6 week course starting from her fistula repair and diverting ostomy placement. Now s/p flap placement by Dr. Antunez on 08/02 without gross purulence seen in OR. Surg cx now with XDR AcB, CRE, and C.albicans. Wound with bloody drainage. Given cx and minimal improvement s/p OR, 08/07 restarted abx with colistin, vabomere, and lesli. Requested micro lab do AcB testing for minocycline and colistin. 08/14, more edema, worsened sacral and posterior thigh wounds with some purulence. She is nearly out of antibiotic options and wounds are only worsening. Abx also seem to be causing CA, hyperkalemia. Neph consulted. Added linezolid. 08/15 now with ileus. Breathing better. Stopped colistin. CXR with no new changes. Since then remains on linezolid, vabomere, and fluconazole. Now DNR-CCA. Cr and K doing better off of colistin. Had a long discussion with her son Karen 08/28/18. Wounds on sacrum and calf have worsened since her last surgery. She was unable to tolerate colistin. From the infection perspective, I think we are reaching the point of futility. It does not seem there are any other further surgical or medical options. Chance of cure and her resuming a normal life are minimal. It would be reasonable to focus more on quality of life and try to get her closer to home on oral abx (possibly with hospice care). This is made more complicated by her age, good mental status, minimal focal symptoms, and high expectations. The son will talk with his mother about overall plan and goals of care. Will continue to follow. D/w wound care nurse and block and case maker. Disclaimer This dictation was created using voice recognition software. Phonetic and/or minor grammatical errors may exist. eSign Date and Time Syeda Palmer MD Verified/Reviewed by 08/29/18 1212 PT Collected: 08/29/2018 Status: F Source: [facility] 5:02 AM [facility] REPOSITORY Order Comment: [place]: M TYPE CODE TESTS RESULT OUT OF RANGE REFERENCE UNITS LAB L300.13194 0.9-1.1 High INR 1.92 Result Comment: Recommended PT INR therapeutic range for detention and prophylactic therapy is 2.0 - 3.0. For heart valve and shunt patients the range is 2.5 - 3.5. LAB L300.24646 9.5-12.0 SECONDS High 19.4 PTS Performed By: #### L300.08642 #### [facility] [address] [place] [address] CBC Collected: 08/29/2018 Status: F Source: [facility] 5:02 AM [facility] REPOSITORY Order Comment: [place]: M TYPE CODE TESTS RESULT OUT OF RANGE REFERENCE UNITS LAB L200.37995 4.5-11.0 K/CU MM Normal WBC 7.7 LAB L200.60485 3.90-5.30 M/CU MM Low RBC 2.69 LAB L200.72571 11.5-15.5 G/DL Low HGB 8.9 LAB L200.97152 35.0-47.0 % Low HCT 27.7 LAB L200.90939 80.0-99.0 fl High MCV 103.0 LAB L200.35539 32.0-36.0 GM/DL Normal MCHC 32.1 LAB L200.02478 11-14.5 High RDW 19.5 LAB L200.62902 9.4-12.4 Low MPV 8.8 LAB L200.49259 150-450 K/CU MM Normal PLT 156 LAB L200.60703 Less than 1 % Normal NRBC 0.0 Performed By: #### L200.62873 #### [facility] [address] [place] [address] BMP Collected: 08/29/2018 Status: F Source: [facility] 5:02 AM [facility] REPOSITORY Order Comment: [place]: M TYPE CODE TESTS RESULT OUT OF RANGE REFERENCE UNITS LAB L500.88310 136-145 MMOL/L Normal NA 143 LAB L500.13672 3.5-5.1 MMOL/L Normal K 5.0 LAB L500.03637 98-107 MMOL/L High CL 108 LAB L500.97056 21-32 MMOL/L Normal CO2 29 LAB L500.84265 5-16 MMOL/L Normal AGAP 7 LAB L500.74298 70-100 MG/DL High GLU 181 Result Comment: 70-100- Normal Fasting; 100-125 Impaired Fasting; greater than 126 on more than one result- Diabetes. ADA guidelines. Results may be falsely elevated after the administration of Sulfapyridine. Results may be falsely depressed after the administration of Sulfasalazine. LAB L500.39203 7-26 MG/DL High BUN 62 LAB L500.31341 0.510-0.950 MG/DL Normal CREAT 0.673 Result Comment: Patients receiving either N-Acetylcysteine (NAC) or Metamizole prior to venipuncture, may have falsely depressed results. LAB L500.50651 15-24 BUN/CREA High 93 LAB L500.19095 8.5-10.1 MG/DL Low CALCIUM TOTAL 8.0 Performed By: #### L500.46862, L500.63615, L500.66202, L500.95638 #### [facility] [address] [place] [address] GFR EST Collected: 08/29/2018 Status: F Source: [facility] 5:02 AM [facility] REPOSITORY Order Comment: [place]: M TYPE CODE TESTS RESULT OUT OF RANGE REFERENCE UNITS LAB L500.90976 ML/MIN Normal IF non-AFR Greater than AMER 60 LAB L500.41342 ML/MIN Normal IF Greater than AMER 60 Performed By: #### L500.44852, L500.42484, L500.01244, L500.10529 #### [facility] [address] [place] [address] PHOS Collected: 08/29/2018 Status: F Source: [facility] 5:02 AM [facility] REPOSITORY Order Comment: [place]: M TYPE CODE TESTS RESULT OUT OF RANGE REFERENCE UNITS LAB L500.63594 2.5-4.9 MG/DL Normal PHOS 3.0 Performed By: #### L500.27828, L500.93088, L500.94246, L500.09161 #### [facility] [address] [place] [address] MAGNESIUM Collected: 08/29/2018 Status: F Source: [facility] 5:02 AM [facility] REPOSITORY Order Comment: [place]: M TYPE CODE TESTS RESULT OUT OF RANGE REFERENCE UNITS LAB L500.78242 1.6-2.6 MG/DL Normal MAGNESIUM 1.7 Performed By: #### L500.77010, L500.67193, L500.58738, L500.08347 #### [facility] [address] [place] [address] PROG.NOTE Observed: 08/28/2018 Status: UNK Source: [facility] 2:49 PM [facility] Patient Name: VENITA SMITH [address] [place] [address] Date of : [address] [address] Unit Number: [id number] Progress Note-Physician Patient Status: REG RCR Attending Doctor: Colette Sloan DO Service Date: 08/28/18 1449 Subjective S: (2 ROS minimum) Feeling ok, no fever, no pain. Eating lunch with no issue. Objective (ROS) Physical Exam Neurological / Psychiatric Alert Respiratory Normal Breathing Effort, Clear Lungs Cardiovascular Heart RRR, No M / R / G Gastrointestinal Non Tender, No Mass Skin reviewed photos Assessment and Plan Conclusion 1. 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 No growth of MRSA. 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 AcB was I to minocycline per [facility], but very limited other options. Discharged to [facility] for planned 6 week course but course has been extended. At [facility], taken for partial flap placement 05/31. Bone cx with ESBL ecoli, CRE klebs, E faecium, diphtheroids. No Acinetobacter seen. Wound worsened. 06/07 changed bactrim to vanc. Both CRE and ESBL still sensitive to tetracycline. Gen surg consulted; CT abd/ pelvis showed fistula. Taken to OR 06/24 for resection and ostomy placement by Dr. Sanon. Sacral wound is overall much improved s/p ostomy and TPN. Has been on vanc, meropenem, and minocycline. Abd midline incision started to have persistent inflammation and draining pus. Wound cx with heavy purulence, cx with VRE and CRE klebs. Developed additional sites of pus able to be expressed from incision. CT showed no deeper abscess. 07/10 stopped vanc and meropenem, started linezolid and vabomere for additional coverage. Continuing minocycline. 07/10 overnight developed septic shock complicated by shock liver; LFTs improving but alk phos remains elevated with slower improved. Abd incision doing well now. Cxs neg except for single bcx with CoNS. Now off pressors. Wbc back to normal. Stop date for abx was 08/04/18; this would be a 6 week course starting from her fistula repair and diverting ostomy placement. Now s/p flap placement by Dr. Antunez on 08/02 without gross purulence seen in OR. Surg cx now with XDR AcB, CRE, and C.albicans. Wound with bloody drainage. Given cx and minimal improvement s/p OR, 08/07 restarted abx with colistin, vabomere, and lesli. Requested micro lab do AcB testing for minocycline and colistin. 08/14, more edema, worsened sacral and posterior thigh wounds with some purulence. She is nearly out of antibiotic options and wounds are only worsening. Abx also seem to be causing CA, hyperkalemia. Neph consulted. Added linezolid. 08/15 now with ileus. Breathing better. Stopped colistin. CXR with no new changes. Since then remains on linezolid, vabomere, and fluconazole. Now DNR-CCA. Cr and K doing better off of colistin. Had a long discussion with her son Karen. Wounds on sacrum and calf have worsened since her last surgery. She was unable to tolerate colistin. From the infection perspective, I think we are reaching the point of futility. It does not seem there are any other further surgical or medical options. Chance of cure and her resuming a normal life are minimal. It would be reasonable to focus more on quality of life and try to get her closer to home on oral abx (possibly with hospice care). This is made more complicated by her age, good mental status, minimal focal symptoms, and high expectations. The son will talk with his mother about overall plan and goals of care. Will continue to follow. D/w wound care nurse and block and case maker. Disclaimer This dictation was created using voice recognition software. Phonetic and/or minor grammatical errors may exist. eSign Date and Time Syeda Palmer MD Verified/Reviewed by 08/28/18 1509 PT Collected: 08/27/2018 Status: F Source: [facility] 4:09 AM [facility] REPOSITORY Order Comment: [place]: M TYPE CODE TESTS RESULT OUT OF RANGE REFERENCE UNITS LAB L300.60681 0.9-1.1 High INR 2.54 Result Comment: 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 For heart valve and shunt patients the range is 2.5 - 3.5. LAB L300.82336 9.5-12.0 SECONDS High 25.1 PTS Performed By: #### L300.28049 #### [facility] [address] [place] [address] MAGNESIUM Collected: 08/27/2018 Status: F Source: [facility] 4:09 AM [facility] REPOSITORY Order Comment: [place]: M TYPE CODE TESTS RESULT OUT OF RANGE REFERENCE UNITS LAB L500.37654 1.6-2.6 MG/DL Normal MAGNESIUM 1.6 Performed By: #### L500.65113 #### [facility] [address] [place] [address] PROG.NOTE Observed: 08/26/2018 Status: UNK Source: [facility] 11:22 AM [facility] Patient Name: VENITA SMITH [address] [facility] [address] Date of : [address] [address] Unit Number: [id number] Progress Note-Physician Patient Status: REG RCR Attending Doctor: Colette Sloan DO Service Date: 08/26/18 1122 Subjective S: (2 ROS minimum) Feeling ok, no fever, no n/v. Objective (ROS) Physical Exam Neurological / Psychiatric Alert Respiratory Normal Breathing Effort, Clear Lungs Cardiovascular Heart RRR, No M / R / G Gastrointestinal Non Tender, No Mass Skin reviewed photos of wounds Assessment and Plan Conclusion 1. 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 No growth of MRSA. 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 AcB was I to minocycline per [facility] lab, but very limited other options. Discharged to [facility] for planned 6 week course but course has been extended. At [facility], taken for partial flap placement 05/31. Bone cx with ESBL ecoli, CRE klebs, E faecium, diphtheroids. No Acinetobacter seen. Wound worsened. 06/07 changed bactrim to vanc. Both CRE and ESBL still sensitive to tetracycline. Gen surg consulted; CT abd/ pelvis showed fistula. Taken to OR 06/24 for resection and ostomy placement by Dr. Sanon. Sacral wound is overall much improved s/p ostomy and TPN. Has been on vanc, meropenem, and minocycline. Abd midline incision started to have persistent inflammation and draining pus. Wound cx with heavy purulence, cx with VRE and CRE klebs. Developed additional sites of pus able to be expressed from incision. CT showed no deeper abscess. 07/10 stopped vanc and meropenem, started linezolid and vabomere for additional coverage. Continuing minocycline. 07/10 overnight developed septic shock complicated by shock liver; LFTs improving but alk phos remains elevated with slower improved. Abd incision doing well now. Cxs neg except for single bcx with CoNS. Now off pressors. Wbc back to normal. Stop date for abx was 08/04/18; this would be a 6 week course starting from her fistula repair and diverting ostomy placement. Now s/p flap placement by Dr. Antunez on 08/02 without gross purulence seen in OR. Surg cx now with XDR AcB, CRE, and C.albicans. Wound with bloody drainage. Given cx and minimal improvement s/p OR, 08/07 restarted abx with colistin, vabomere, and lesli. Requested micro lab do AcB testing for minocycline and colistin. 08/14, more edema, worsened sacral and posterior thigh wounds with some purulence. She is nearly out of antibiotic options and wounds are only worsening. Abx also seem to be causing CA, hyperkalemia. Neph consulted. Added linezolid. 08/15 now with ileus. Breathing better. Stopped colistin. Adjust fluconazole dose. CXR with no new changes. Since then remains on linezolid, vabomere, and fluconazole. Now DNR-CCA. Cr and K doing better off of colistin. Will continue to follow. D/w wound care nurse. Disclaimer This dictation was created using voice recognition software. Phonetic and/or minor grammatical errors may exist. eSign Date and Time Syeda Palmer MD Verified/Reviewed by 08/26/18 1123 CBC W/DIFF Collected: 08/26/2018 Status: F Source: [facility] 4:41 AM [facility] REPOSITORY Order Comment: [place]: M TYPE CODE TESTS RESULT OUT OF RANGE REFERENCE UNITS LAB L200.98974 4.5-11.0 K/CU MM WBC Normal 6.3 LAB L200.14410 3.90-5.30 M/CU MM Low RBC 2.77 LAB L200.12898 11.5-15.5 G/DL Low HGB 8.9 LAB L200.26369 35.0-47.0 % Low HCT 27.7 LAB L200.47019 80.0-99.0 fl High MCV 100.0 LAB L200.24072 32.0-36.0 GM/DL MCHC Normal 32.1 LAB L200.49677 11-14.5 High RDW 19.3 LAB L200.53067 9.4-12.4 Low MPV 8.7 LAB L200.64378 150-450 K/CU MM PLT Normal 170 LAB L200.87812 45-75 % NEUTROPHILS Normal % 67.8 LAB L200.56989 Less than 2 % IMMATURE Normal GRAN % 0.6 LAB L200.17563 20-40 % Low LYMPH % 19.4 LAB L200.80614 2-10 % MONOCYTE % Normal 8.4 LAB L200.16839 0-5 % EOSINOPHIL Normal % 3.3 LAB L200.86899 0-2 % BASOPHIL % Normal 0.5 LAB L200.45783 2.0-8.3 K/CU MM NEUTROPHIL Normal ABS 4.30 LAB L200.88181 Less than 2 K/CU MM IMMATR GRAN Normal ABS 0.00 LAB L200.78332 0.9-4.4 K/CU MM LYMPH ABS Normal 1.20 LAB L200.03465 0.1-1.1 K/CU MM MONO ABS Normal 0.50 LAB L200.06607 0-0.5 K/CU MM EOS ABS Normal 0.20 LAB L200.43252 0-0.2 K/CU MM BASO ABS Normal 0.00 LAB L200.82555 Less than 1 % NRBC Normal 0.0 Performed By: #### L200.83184 #### [facility] [place] [address] PT Collected: 08/26/2018 Status: F Source: [facility] 4:41 AM [facility] REPOSITORY Order Comment: [place]: M TYPE CODE TESTS RESULT OUT OF RANGE REFERENCE UNITS LAB L300.34064 0.9-1.1 High INR 3.30 Result Comment: 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 For heart valve and shunt patients the range is 2.5 - 3.5. LAB L300.25079 9.5-12.0 SECONDS High 32.0 PTS Performed By: #### L300.46149 #### [facility] [place] [address] CMP Collected: 08/26/2018 Status: F Source: [facility] 4:41 AM [facility] REPOSITORY Order Comment: [place]: M TYPE CODE TESTS RESULT OUT OF RANGE REFERENCE UNITS LAB L500.33997 136-145 MMOL/L Normal NA 141 LAB L500.67763 3.5-5.1 MMOL/L Normal K 4.6 LAB L500.68355 98-107 MMOL/L Normal CL 104 LAB L500.48684 21-32 MMOL/L Normal CO2 28 LAB L500.51968 5-16 MMOL/L Normal AGAP 9 LAB L500.35209 70-100 MG/DL High GLU 137 Result Comment: 70-100- Normal Fasting; 100-125 Impaired Fasting; greater than 126 on more than one result- Diabetes. ADA guidelines. Results may be falsely elevated after the administration of Sulfapyridine. Results may be falsely depressed after the administration of Sulfasalazine. LAB L500.65665 7-26 MG/DL High BUN 41 LAB L500.75682 0.510-0.950 MG/DL Normal CREAT 0.606 Result Comment: Patients receiving either N-Acetylcysteine (NAC) or Metamizole prior to venipuncture, may have falsely depressed results. LAB L500.35859 15-24 High BUN/CREA 67 LAB L500.88836 6.0-8.5 GM/DL Low TP 5.2 LAB L500.58007 3.2-5.0 GM/DL Low ALBUMIN 2.0 LAB L500.98414 2.2-4.2 GM/DL Normal GLOBULIN 3.2 LAB L500.96294 0.8-2.0 Low A/G RATIO 0.6 LAB L500.29095 8.5-10.1 MG/DL Low CALCIUM TOTAL 8.1 LAB L500.43040 0.2-1.0 MG/DL Normal BILI TOTAL 0.2 LAB L500.45168 8-34 U/L Normal SGOT (AST) 32 Result Comment: RESULTS MAY BE FALSELY DEPRESSED AFTER THE ADMINISTRATION OF SULFASALAZINE AND/OR SULFAPYRIDINE. LAB L500.94526 13-61 IU/L Normal SGPT (ALT) 40 Result Comment: RESULTS MAY BE FALSELY DEPRESSED AFTER THE ADMINISTRATION OF SULFASALAZINE AND/OR SULFAPYRIDINE. LAB L500.53915 45-117 U/L High ALK PHOS 317 Performed By: #### L500.93315, L500.07711, L500.15926, L500.94728, L500.84882 #### [facility] [address] [place] [address] GFR EST Collected: 08/26/2018 Status: F Source: [facility] 4:41 AM [facility] REPOSITORY Order Comment: [place]: M TYPE CODE TESTS RESULT OUT OF RANGE REFERENCE UNITS LAB L500.02365 ML/MIN Normal IF non-AFR Greater than AMER 60 LAB L500.08937 ML/MIN Normal IF Greater than AMER 60 Performed By: #### L500.82052, L500.94579, L500.45055, L500.45275, L500.22943 #### [facility] [address] [place] [address] PHOS Collected: 08/26/2018 Status: F Source: [facility] 4:41 AM [facility] REPOSITORY Order Comment: [place]: M TYPE CODE TESTS RESULT OUT OF RANGE REFERENCE UNITS LAB L500.25582 2.5-4.9 MG/DL Normal PHOS 3.0 Performed By: #### L500.02291, L500.46280, L500.89601, L500.07099, L500.79952 #### [facility] [address] [place] [address] MAGNESIUM Collected: 08/26/2018 Status: F Source: [facility] 4:41 AM [facility] REPOSITORY Order Comment: [place]: M TYPE CODE TESTS RESULT OUT OF REFERENCE UNITS RANGE LAB L500.45123 1.6-2.6 MG/DL Low MAGNESIUM 1.5 Performed By: #### L500.10135, L500.23437, L500.44500, L500.26470, L500.69418 #### [facility] [address] [place] [address] TRIG Collected: 08/26/2018 Status: F Source: [facility] 4:41 AM [facility] REPOSITORY Order Comment: [place]: M TYPE CODE TESTS RESULT OUT OF RANGE REFERENCE UNITS LAB L500.68862 30-149 MG/DL High TRIG 241 Result Comment: Patients receiving either N-Acetylcysteine (NAC) or Metamizole prior to venipuncture, may have falsely depressed results. Performed By: #### L500.61400, L500.01677, L500.18412, L500.12436, L500.59919 #### [facility] [address] [place] [address] PT Collected: 08/25/2018 Status: F Source: [facility] 5:57 AM [facility] REPOSITORY Order Comment: [place]: M TYPE CODE TESTS RESULT OUT OF RANGE REFERENCE UNITS LAB L300.17928 0.9-1.1 High INR 2.93 Result Comment: 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 For heart valve and shunt patients the range is 2.5 - 3.5. LAB L300.44354 9.5-12.0 SECONDS High 28.7 PTS Performed By: #### L300.59269 #### [facility] [address] [place] [address] CBC W/DIFF Collected: 08/24/2018 Status: F Source: [facility] 4:51 AM [facility] REPOSITORY Order Comment: [place]: M TYPE CODE TESTS RESULT OUT OF RANGE REFERENCE UNITS LAB L200.57461 4.5-11.0 K/CU MM WBC Normal 6.2 LAB L200.23505 3.90-5.30 M/CU MM Low RBC 2.73 LAB L200.37833 11.5-15.5 G/DL Low HGB 9.0 LAB L200.32749 35.0-47.0 % Low HCT 27.1 LAB L200.07610 80.0-99.0 fl High MCV 99.3 LAB L200.48981 32.0-36.0 GM/DL MCHC Normal 33.2 LAB L200.17965 11-14.5 High RDW 19.9 LAB L200.55569 9.4-12.4 Low MPV 8.7 LAB L200.80418 150-450 K/CU MM PLT Normal 192 LAB L200.43904 45-75 % NEUTROPHILS Normal % 67.6 LAB L200.80997 Less than 2 % IMMATURE Normal GRAN % 1.0 LAB L200.24166 20-40 % Low LYMPH % 15.4 LAB L200.42392 2-10 % High MONOCYTE % 11.9 LAB L200.55164 0-5 % EOSINOPHIL Normal % 3.8 LAB L200.55328 0-2 % BASOPHIL % Normal 0.3 LAB L200.44981 2.0-8.3 K/CU MM NEUTROPHIL Normal ABS 4.20 LAB L200.25622 Less than 2 K/CU MM IMMATR GRAN Normal ABS 0.10 LAB L200.77758 0.9-4.4 K/CU MM LYMPH ABS Normal 1.00 LAB L200.51231 0.1-1.1 K/CU MM MONO ABS Normal 0.70 LAB L200.90700 0-0.5 K/CU MM EOS ABS Normal 0.20 LAB L200.35680 0-0.2 K/CU MM BASO ABS Normal 0.00 LAB L200.48858 Less than 1 % NRBC Normal 0.0 Performed By: #### L200.66826 #### [facility] [address] [place] [address] PT Collected: 08/24/2018 Status: F Source: [facility] 4:51 AM [facility] REPOSITORY Order Comment: [place]: M TYPE CODE TESTS RESULT OUT OF RANGE REFERENCE UNITS LAB L300.76481 0.9-1.1 High INR 3.48 Result Comment: Recommended PT INR therapeutic range for detention and prophylactic therapy is 2.0 - 3.0. For heart valve and shunt patients the range is 2.5 - 3.5. LAB L300.24012 9.5-12.0 SECONDS High 33.6 PTS Performed By: #### L300.06975 #### [facility] [address] [place] [address] CMP Collected: 08/24/2018 Status: F Source: [facility] 4:51 AM [facility] REPOSITORY Order Comment: [place]: M TYPE CODE TESTS RESULT OUT OF RANGE REFERENCE UNITS LAB L500.50373 136-145 MMOL/L Normal NA 141 LAB L500.76727 3.5-5.1 MMOL/L Normal K 4.6 LAB L500.02055 98-107 MMOL/L Normal CL 105 LAB L500.20212 21-32 MMOL/L Normal CO2 30 LAB L500.69748 5-16 MMOL/L Normal AGAP 6 LAB L500.56366 70-100 MG/DL High GLU 117 Result Comment: 70-100- Normal Fasting; 100-125 Impaired Fasting; greater than 126 on more than one result- Diabetes. ADA guidelines. Results may be falsely elevated after the administration of Sulfapyridine. Results may be falsely depressed after the administration of Sulfasalazine. LAB L500.18455 7-26 MG/DL High BUN 44 LAB L500.19369 0.510-0.950 MG/DL Normal CREAT 0.735 Result Comment: Patients receiving either N-Acetylcysteine (NAC) or Metamizole prior to venipuncture, may have falsely depressed results. LAB L500.02211 15-24 High BUN/CREA 60 LAB L500.78289 6.0-8.5 GM/DL Low TP 5.3 LAB L500.31154 3.2-5.0 GM/DL Low ALBUMIN 2.0 LAB L500.42862 2.2-4.2 GM/DL Normal GLOBULIN 3.4 LAB L500.31045 0.8-2.0 Low A/G RATIO 0.6 LAB L500.64845 8.5-10.1 MG/DL Low CALCIUM TOTAL 8.1 LAB L500.77194 0.2-1.0 MG/DL Normal BILI TOTAL 0.2 LAB L500.30709 8-34 U/L Normal SGOT (AST) 27 Result Comment: RESULTS MAY BE FALSELY DEPRESSED AFTER THE ADMINISTRATION OF SULFASALAZINE AND/OR SULFAPYRIDINE. LAB L500.29485 13-61 IU/L Normal SGPT (ALT) 28 Result Comment: RESULTS MAY BE FALSELY DEPRESSED AFTER THE ADMINISTRATION OF SULFASALAZINE AND/OR SULFAPYRIDINE. LAB L500.40676 45-117 U/L High ALK PHOS 344 Performed By: #### L500.07624, L500.45921 #### [facility] [address] [place] [address] GFR EST Collected: 08/24/2018 Status: F Source: [facility] 4:51 AM [facility] REPOSITORY Order Comment: [place]: M TYPE CODE TESTS RESULT OUT OF RANGE REFERENCE UNITS LAB L500.59789 ML/MIN Normal IF non-AFR Greater than AMER 60 LAB L500.43066 ML/MIN Normal IF Greater than AMER 60 Performed By: #### L500.62187, L500.15158 #### [facility] [address] [place] [address] PROG.NOTE Observed: 08/23/2018 Status: UNK Source: [facility] 10:05 AM [facility] Patient Name: VENITA SMITH [address] [place] [address] Date of : [address] [address] Unit Number: [id number] Progress Note-Physician Patient Status: REG RCR Attending Doctor: Colette Sloan DO Service Date: 08/23/18 1005 Subjective S: (2 ROS minimum) Feels ok. Ate well this morning. No f/c. Objective (ROS) Nursing Vitals AF 97.1 70 21 158/77 Physical Exam Physical Examination Notes NAD RRR No wheezes. Abd soft, NT No pedal edema RUE PICC with no redness or discharge at the site. Wound pictures from 08/21 reviewed. Diagnostic Data: Lab 24hr (CBC/BMP [facility]) 08/23/18 0415: INR 3.62 H, PT Normal Mean Secs 34.9 H Laboratory Tests Test Result Date Time Blood Gas Specimen Type ARTERIAL 08/14 123 Sample Site R RADIAL 08/14 1238 Patient Temperature (C) 36.4 08/14 1238 pH (7.35 - 7.45) 7.36 08/14 1238 pCO2 (35 - 45 MMHG) 51.5 H 08/14 1238 pO2 (80 - 100 MMHG) 167 H 08/14 1238 HCO3 (22 - 26 MMOL/L) 28.6 H 08/14 1238 Base Excess (-2.0 - 2.0 MMOL/L) 2.4 H 08/14 1238 ABG O2 Sat (Measured) (90 - 100 %) 98.0 08/14 1238 ABG Hemoglobin (11.5 - 15.5 GM/DL) 9.6 L 08/14 1238 ABG Reduced Hgb (0 - 5 %) 0.5 08/14 1238 ABG Carboxyhemoglobin (0 - 10 %) 1.3 08/14 1238 ABG Methemoglobin (0.4 - 1.5 %) 0.2 L 08/14 123 ABG O2 Capacity (mL/dL) 13.1 08/14 123 Adonay Test POSITIVE 08/14 1238 Respiration Rate (PER MIN) 20 08/14 123 Patient Equipment BIPAP 08/14 1238 FiO2 % (%) 55 08/14 1238 Tidal Volume (LITERS) 08/14 123 Chemistry Sodium (136 - 145 MMOL/L) 139 08/22 410 Potassium (3.5 - 5.1 MMOL/L) 4.3 08/22 410 Chloride (98 - 107 MMOL/L) 102 08/22 410 Carbon Dioxide (21 - 32 MMOL/L) 29 08/22 410 Anion Gap (5 - 16 MMOL/L) 7 08/22 410 BUN (7 - 26 MG/DL) 46 H 08/22 410 Creatinine (0.510 - 0.950 MG/DL) 0.779 08/22 410 Est GFR ( Amer) (ML/MIN) Greater than 60 08/22 410 Est GFR (Non-Af Amer) (ML/MIN) Greater than 60 08/22 410 BUN/Creatinine Ratio (15 - 24) 60 H 08/22 410 Glucose (70 - 100 MG/DL) 126 H 08/22 410 Lactic Acid (0.40 - 2.00 MMOL/L) 1.82 07/11 0506 Total Calcium (8.5 - 10.1 MG/DL) 8.2 L 08/22 410 Phosphorus (2.5 - 4.9 MG/DL) 3.0 08/22 410 Magnesium (1.6 - 2.6 MG/DL) 1.6 08/22 410 Total Bilirubin (0.2 - 1.0 MG/DL) 0.3 08/19 435 Direct Bilirubin (0.00 - 0.20 MG/DL) 0.08 08/11 0529 AST (8 - 34 U/L) 19 08/19 435 ALT (13 - 61 IU/L) 14 08/19 435 Alkaline Phosphatase (45 - 117 U/L) 278 H 08/19 435 Troponin I (0.000 - 0.045 NG/ML) 0.025 07/11 1645 Serum Total Protein (6.0 - 8.5 GM/DL) 4.8 L 12/03 0435 Albumin (3.2 - 5.0 GM/DL) 1.7 L 08/19 435 Globulin (2.2 - 4.2 GM/DL) 3.1 08/19 435 Albumin/Globulin Ratio (0.8 - 2.0) 0.6 L 08/19 435 Triglycerides (30 - 149 MG/DL) 214 H 08/19 435 Procalcitonin (0.00 - 0.50 NG/ML) 41.19 H 07/11 0506 Coagulation INR (0.9 - 1.1) 3.62 H 08/23 415 PT Normal Mean Secs (9.5 - 12.0 SECONDS) 34.9 H 08/23 415 APTT (22.0 - 31.5 SECONDS) 39.2 H 07/23 413 Hematology WBC (4.5 - 11.0 K/CU MM) 7.1 08/22 410 RBC (3.90 - 5.30 M/CU MM) 2.79 L 08/22 410 Hgb (11.5 - 15.5 G/DL) 8.9 L 08/22 410 Hct (35.0 - 47.0 %) 27.8 L 08/22 410 MCV (80.0 - 99.0 fl) 99.6 H 08/220 MCHC (32.0 - 36.0 GM/DL) 32.0 08/220 RDW (11 - 14.5) 19.8 H 08/22 410 Plt Count (150 - 450 K/CU MM) 233 08/22 410 MPV (9.4 - 12.4) 8.4 L 08/22 410 Immature Gran % (Auto) (Less than 2 %) 0.7 08/19 435 Abs Immat Gran (auto) (Less than 2 K/CU MM) 0.00 08/19 435 Seg Neutrophils % (45 - 75 %) 67.8 08/19 435 Lymphocytes % (20 - 40 %) 15.5 L 08/19 435 Monocytes % (2 - 10 %) 13.1 H 08/19 435 Eosinophils % (0 - 5 %) 2.5 08/19 435 Basophils % (0 - 2 %) 0.4 08/19 435 Neutrophils # (2.0 - 8.3 K/CU MM) 3.80 08/19 435 Lymphocytes # (0.9 - 4.4 K/CU MM) 0.90 08/19 043 Monocytes # (0.1 - 1.1 K/CU MM) 0.70 08/19 043 Eosinophils # (0 - 0.5 K/CU MM) 0.10 08/19 435 Basophils # (0 - 0.2 K/CU MM) 0.00 08/19 043 Nucleated RBCs (Less than 1 %) 0.0 08/22 0410 Toxicology Vancomycin Trough (15.0 - 20.0 MCG/ML) 16.1 07/09 1456 Random Vancomycin Cancelled 07/09 1400 Zinc (56 - 134 ug/dL) 49 L 08/02 405 Urines Urine Color Rachel 07/11 734 Urine Appearance (CLEAR) Turbid 07/11 734 Urine pH 5.0 07/11 734 Ur Specific [place] (1.005 - 1.030) 1.019 07/11 734 Urine Protein (NEGATIVE) 100 07/11 734 Urine Glucose (UA) 50 07/11 734 Urine Ketones 5 07/11 734 Urine Blood (NEGATIVE) MOD 07/11 734 Urine Nitrite (NEGATIVE) NEGATIVE 07/11 734 Urine Bilirubin NEGATIVE 07/11 734 Urine Urobilinogen NEG 07/11 734 Ur Leukocyte Esterase (NEGATIVE) 500 07/11 734 Urine RBC (0 - 3 RBC/HPF) 47 H 07/11 734 Urine WBC (0 - 5 WBC/HPF) 952 H 07/11 734 Urine WBC Clumps (HPF) MANY 07/11 734 Ur Squamous Epith Cells (0 - 5 EPI/HPF) 2 07/11 734 Urine Bacteria (NONE /HPF) 1+ 07/11 734 Urine Mucus TRACE 07/11 734 Urine Yeast (NONE /HPF) MANY 07/11 734 Recent Impressions RADIOLOGY - PORTABLE CHEST 08/17 0539 Report Impression - Status: SIGNED Entered: 08/17/2018 0649 IMPRESSION: Slight improved aeration left lung base no other change with the exception of mild elevation right hemidiaphragm. Impression By: ALONA ROWAN M.D. RADIOLOGY - ABDOMEN OR KUB 08/21 1306 Report Impression - Status: SIGNED Entered: 08/21/2018 1344 IMPRESSION: No significant interval change. Impression By: ARTURO WARE M.D. Assessment and Plan Conclusion 1. Osteomyelitis 2. Sacral decubitus ulcer, stage IV Pt looks clinically stable. Continue current antibiotics. Will follow. Disclaimer This dictation was created using voice recognition software. Phonetic and/or minor grammatical errors may exist. eSign Date and Time Goldy Chen MD Verified/Reviewed by 08/23/18 1007 PT Collected: 08/23/2018 Status: F Source: [facility] 4:15 AM [facility] REPOSITORY Order Comment: [place]: M TYPE CODE TESTS RESULT OUT OF RANGE REFERENCE UNITS LAB L300.60888 0.9-1.1 High INR 3.62 Result Comment: 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 For heart valve and shunt patients the range is 2.5 - 3.5. LAB L300.05587 9.5-12.0 SECONDS High 34.9 PTS Performed By: #### L300.97606 #### [facility] [place] [address] CBC Collected: 08/22/2018 Status: F Source: [facility] 4:10 AM [facility] REPOSITORY Order Comment: [place]: M TYPE CODE TESTS RESULT OUT OF RANGE REFERENCE UNITS LAB L200.07223 4.5-11.0 K/CU MM Normal WBC 7.1 LAB L200.12441 3.90-5.30 M/CU MM Low RBC 2.79 LAB L200.82617 11.5-15.5 G/DL Low HGB 8.9 LAB L200.38345 35.0-47.0 % Low HCT 27.8 LAB L200.12302 80.0-99.0 fl High MCV 99.6 LAB L200.31171 32.0-36.0 GM/DL Normal MCHC 32.0 LAB L200.01520 11-14.5 High RDW 19.8 LAB L200.71931 9.4-12.4 Low MPV 8.4 LAB L200.14571 150-450 K/CU MM Normal PLT 233 LAB L200.99310 Less than 1 % Normal NRBC 0.0 Performed By: #### L200.22046 #### [facility] [address] [place] [address] PT Collected: 08/22/2018 Status: F Source: [facility] 4:10 AM [facility] REPOSITORY Order Comment: [place]: M TYPE CODE TESTS RESULT OUT OF RANGE REFERENCE UNITS LAB L300.47429 0.9-1.1 High INR 2.99 Result Comment: Recommended PT INR therapeutic range for detention and prophylactic therapy is 2.0 - 3.0. For heart valve and shunt patients the range is 2.5 - 3.5. LAB L300.20977 9.5-12.0 SECONDS High 29.2 PTS Performed By: #### L300.71722 #### [facility] [address] [place] [address] BMP Collected: 08/22/2018 Status: F Source: [facility] 4:10 AM [facility] REPOSITORY Order Comment: [place]: M TYPE CODE TESTS RESULT OUT OF RANGE REFERENCE UNITS LAB L500.18790 136-145 MMOL/L Normal NA 139 LAB L500.07589 3.5-5.1 MMOL/L Normal K 4.3 LAB L500.24004 98-107 MMOL/L Normal CL 102 LAB L500.12607 21-32 MMOL/L Normal CO2 29 LAB L500.13019 5-16 MMOL/L Normal AGAP 7 LAB L500.81510 70-100 MG/DL High GLU 126 Result Comment: 70-100- Normal Fasting; 100-125 Impaired Fasting; greater than 126 on more than one result- Diabetes. ADA guidelines. Results may be falsely elevated after the administration of Sulfapyridine. Results may be falsely depressed after the administration of Sulfasalazine. LAB L500.93951 7-26 MG/DL High BUN 46 LAB L500.01599 0.510-0.950 MG/DL Normal CREAT 0.779 Result Comment: Patients receiving either N-Acetylcysteine (NAC) or Metamizole prior to venipuncture, may have falsely depressed results. LAB L500.33697 15-24 BUN/CREA High 60 LAB L500.91083 8.5-10.1 MG/DL Low CALCIUM TOTAL 8.2 Performed By: #### L500.00918, L500.22197, L500.42194, L500.36128 #### [facility] [address] [place] [address] GFR EST Collected: 08/22/2018 Status: F Source: [facility] 4:10 AM [facility] REPOSITORY Order Comment: [place]: M TYPE CODE TESTS RESULT OUT OF RANGE REFERENCE UNITS LAB L500.48159 ML/MIN Normal IF non-AFR Greater than AMER 60 LAB L500.42259 ML/MIN Normal IF Greater than AMER 60 Performed By: #### L500.45942, L500.51118, L500.74578, L500.35870 #### [facility] [address] [place] [address] PHOS Collected: 08/22/2018 Status: F Source: [facility] 4:10 AM [facility] REPOSITORY Order Comment: [place]: M TYPE CODE TESTS RESULT OUT OF RANGE REFERENCE UNITS LAB L500.40216 2.5-4.9 MG/DL Normal PHOS 3.0 Performed By: #### L500.62702, L500.21771, L500.31433, L500.74903 #### [facility] [address] [place] [address] MAGNESIUM Collected: 08/22/2018 Status: F Source: [facility] 4:10 AM [facility] REPOSITORY Order Comment: [place]: M TYPE CODE TESTS RESULT OUT OF RANGE REFERENCE UNITS LAB L500.73337 1.6-2.6 MG/DL Normal MAGNESIUM 1.6 Performed By: #### L500.22075, L500.69175, L500.82291, L500.57727 #### [facility] [address] [place] [address] PT Collected: 08/21/2018 Status: F Source: [facility] 3:44 PM [facility] REPOSITORY Order Comment: [place]: M TYPE CODE TESTS RESULT OUT OF RANGE REFERENCE UNITS LAB L300.06204 0.9-1.1 High INR 2.79 Result Comment: Recommended PT INR therapeutic range for detention and prophylactic therapy is 2.0 - 3.0. For heart valve and shunt patients the range is 2.5 - 3.5. LAB L300.55827 9.5-12.0 SECONDS High 27.4 PTS Performed By: #### L300.08635 #### [facility] [address] [place] [address] K Collected: 08/20/2018 Status: F Source: [facility] 8:41 AM [facility] REPOSITORY Order Comment: [place]: M TYPE CODE TESTS RESULT OUT OF RANGE REFERENCE UNITS LAB L500.14169 3.5-5.1 MMOL/L High K 5.3 Performed By: #### L500.72678 #### [facility] [address] [place] [address] PT Collected: 08/20/2018 Status: F Source: [facility] 4:07 AM [facility] REPOSITORY Order Comment: [place]: M TYPE CODE TESTS RESULT OUT OF RANGE REFERENCE UNITS LAB L300.82426 0.9-1.1 High INR 2.54 Result Comment: 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 For heart valve and shunt patients the range is 2.5 - 3.5. LAB L300.66423 9.5-12.0 SECONDS High 25.1 PTS Performed By: #### L300.66458 #### [facility] [address] [place] [address] MAGNESIUM Collected: 08/19/2018 Status: F Source: [facility] 8:31 PM [facility] REPOSITORY Order Comment: [place]: M TYPE CODE TESTS RESULT OUT OF RANGE REFERENCE UNITS LAB L500.35511 1.6-2.6 MG/DL Normal MAGNESIUM 2.1 Performed By: #### L500.59789 #### [facility] [address] [place] [address] PROG.NOTE Observed: 08/19/2018 Status: UNK Source: [facility] 11:40 AM [facility] REPOSITORY [facility] Patient Name: VENITA SMITH [address] [place] [address] Date of : [address] [address] Unit Number: [id number] Progress Note-Physician Patient Status: REG RCR Attending Doctor: Colette Sloan DO Service Date: 08/19/18 1140 Subjective S: (2 ROS minimum) Covering for Dr. Palmer. Pt denies f/c. No shortness of breath. Denies abdominal pain. No current complaints. Objective (ROS) Nursing Vitals 97.8 70 20 150/73 98% 2L Physical Exam Physical Examination Notes Alert, oriented, NAD RRR RUE PICC intact. No redness or pus at the PICC site. No w/r/r anterolaterally Abd soft. No tenderness. No pedal edema. Diagnostic Data: Lab 24hr (CBC/BMP [facility]) 08/19/18 0435: [Embedded Image Not Available] Anion Gap 8, Est GFR ( Amer) Greater than 60, Est GFR (Non-Af Amer) Greater than 60 , BUN/Creatinine Ratio 45 H, Glucose 77, Total Calcium 7.8 L, Phosphorus 2.9, Magnesium 1.2 L, Total Bilirubin 0.3, AST 19, ALT 14, Alkaline Phosphatase 278 H, Serum Total Protein 4.8 L, Albumin 1.7 L, Globulin 3.1, Albumin/Globulin Ratio 0.6 L, Triglycerides 214 H, INR 2.10 H, PT Normal Mean Secs 21.1 H, RBC 2.46 L, MCV 98.4, MCHC 33.1, RDW 20.0 H , MPV 8.6 L, Immature Gran % (Auto) 0.7, Abs Immat Gran (auto) 0.00, Seg Neutrophils % 67.8, Lymphocytes % 15.5 L, Monocytes % 13.1 H, Eosinophils % 2.5, Basophils % 0.4, Neutrophils # 3.80, Lymphocytes # 0.90, Monocytes # 0.70, Eosinophils # 0.10, Basophils # 0.00, Nucleated RBCs 0.0 Microbiology (Last) Date/Time Procedure - Status Source Growth 08/15 400 Sputum Culture - CAN SPUTUM Cancelled: NO SPECIMEN RECEIVED 08/15 400 Gram Stain - CAN SPUTUM Cancelled: NO SPECIMEN RECEIVED Assessment and Plan Conclusion 1. Osteomyelitis 2. Sacral decubitus ulcer, stage IV Pt looks clinically stable. Continue current antibiotics. Orders for renewal written. Will follow periodically. Disclaimer This dictation was created using voice recognition software. Phonetic and/or minor grammatical errors may exist. eSign Date and Time Goldy Chen MD Verified/Reviewed by 08/19/18 1146 CBC W/DIFF Collected: 08/19/2018 Status: F Source: [facility] 4:35 AM [facility] REPOSITORY Order Comment: [place]: M TYPE CODE TESTS RESULT OUT OF RANGE REFERENCE UNITS LAB L200.52020 4.5-11.0 K/CU MM WBC Normal 5.7 LAB L200.06044 3.90-5.30 M/CU MM Low RBC 2.46 LAB L200.60538 11.5-15.5 G/DL Low HGB 8.0 LAB L200.87206 35.0-47.0 % Low HCT 24.2 LAB L200.96887 80.0-99.0 fl MCV Normal 98.4 LAB L200.30155 32.0-36.0 GM/DL MCHC Normal 33.1 LAB L200.55270 11-14.5 High RDW 20.0 LAB L200.66132 9.4-12.4 Low MPV 8.6 LAB L200.47997 150-450 K/CU MM PLT Normal 250 LAB L200.01465 45-75 % NEUTROPHILS Normal % 67.8 LAB L200.06956 Less than 2 % IMMATURE Normal GRAN % 0.7 LAB L200.48111 20-40 % Low LYMPH % 15.5 LAB L200.89413 2-10 % High MONOCYTE % 13.1 LAB L200.52607 0-5 % EOSINOPHIL Normal % 2.5 LAB L200.32726 0-2 % BASOPHIL % Normal 0.4 LAB L200.85693 2.0-8.3 K/CU MM NEUTROPHIL Normal ABS 3.80 LAB L200.08198 Less than 2 K/CU MM IMMATR GRAN Normal ABS 0.00 LAB L200.00590 0.9-4.4 K/CU MM LYMPH ABS Normal 0.90 LAB L200.68690 0.1-1.1 K/CU MM MONO ABS Normal 0.70 LAB L200.69341 0-0.5 K/CU MM EOS ABS Normal 0.10 LAB L200.41915 0-0.2 K/CU MM BASO ABS Normal 0.00 LAB L200.08409 Less than 1 % NRBC Normal 0.0 Performed By: #### L200.78679 #### [facility] [address] [place] [address] PT Collected: 08/19/2018 Status: F Source: [facility] 4:35 AM [facility] REPOSITORY Order Comment: [place]: M TYPE CODE TESTS RESULT OUT OF RANGE REFERENCE UNITS LAB L300.25352 0.9-1.1 High INR 2.10 Result Comment: Recommended PT INR therapeutic range for detention and prophylactic therapy is 2.0 - 3.0. For heart valve and shunt patients the range is 2.5 - 3.5. LAB L300.26815 9.5-12.0 SECONDS High 21.1 PTS Performed By: #### L300.67227 #### [facility] [place] [address] CMP Collected: 08/19/2018 Status: F Source: [facility] 4:35 AM [facility] REPOSITORY Order Comment: [place]: M TYPE CODE TESTS RESULT OUT OF RANGE REFERENCE UNITS LAB L500.59747 136-145 MMOL/L Normal NA 140 LAB L500.41433 3.5-5.1 MMOL/L Low K 3.4 LAB L500.52167 98-107 MMOL/L Normal CL 101 LAB L500.71586 21-32 MMOL/L Normal CO2 31 LAB L500.91558 5-16 MMOL/L Normal AGAP 8 LAB L500.84256 70-100 MG/DL Normal GLU 77 Result Comment: 70-100- Normal Fasting; 100-125 Impaired Fasting; greater than 126 on more than one result- Diabetes. ADA guidelines. Results may be falsely elevated after the administration of Sulfapyridine. Results may be falsely depressed after the administration of Sulfasalazine. LAB L500.67177 7-26 MG/DL High BUN 41 LAB L500.61179 0.510-0.950 MG/DL Normal CREAT 0.902 Result Comment: Patients receiving either N-Acetylcysteine (NAC) or Metamizole prior to venipuncture, may have falsely depressed results. LAB L500.65930 15-24 High BUN/CREA 45 LAB L500.35843 6.0-8.5 GM/DL Low TP 4.8 LAB L500.61730 3.2-5.0 GM/DL Low ALBUMIN 1.7 LAB L500.37061 2.2-4.2 GM/DL Normal GLOBULIN 3.1 LAB L500.27237 0.8-2.0 Low A/G RATIO 0.6 LAB L500.15433 8.5-10.1 MG/DL Low CALCIUM TOTAL 7.8 LAB L500.59236 0.2-1.0 MG/DL Normal BILI TOTAL 0.3 LAB L500.57915 8-34 U/L Normal SGOT (AST) 19 Result Comment: RESULTS MAY BE FALSELY DEPRESSED AFTER THE ADMINISTRATION OF SULFASALAZINE AND/OR SULFAPYRIDINE. LAB L500.14866 13-61 IU/L Normal SGPT (ALT) 14 Result Comment: RESULTS MAY BE FALSELY DEPRESSED AFTER THE ADMINISTRATION OF SULFASALAZINE AND/OR SULFAPYRIDINE. LAB L500.49061 45-117 U/L High ALK PHOS 278 Performed By: #### L500.63788, L500.17403, L500.37691, L500.30606, L500.69549 #### [facility] [address] [place] [address] GFR EST Collected: 08/19/2018 Status: F Source: [facility] 4:35 AM [facility] REPOSITORY Order Comment: [place]: M TYPE CODE TESTS RESULT OUT OF RANGE REFERENCE UNITS LAB L500.33604 ML/MIN Normal IF non-AFR Greater than AMER 60 LAB L500.38403 ML/MIN Normal IF Greater than AMER 60 Performed By: #### L500.22332, L500.33913, L500.64899, L500.97945, L500.62823 #### [facility] [address] [place] [address] PHOS Collected: 08/19/2018 Status: F Source: [facility] 4:35 AM [facility] REPOSITORY Order Comment: [place]: M TYPE CODE TESTS RESULT OUT OF RANGE REFERENCE UNITS LAB L500.06471 2.5-4.9 MG/DL Normal PHOS 2.9 Performed By: #### L500.64248, L500.84478, L500.09414, L500.08063, L500.42597 #### [facility] [address] [place] [address] MAGNESIUM Collected: 08/19/2018 Status: F Source: [facility] 4:35 AM [facility] REPOSITORY Order Comment: [place]: M TYPE CODE TESTS RESULT OUT OF REFERENCE UNITS RANGE LAB L500.74051 1.6-2.6 MG/DL Low MAGNESIUM 1.2 Performed By: #### L500.69613, L500.94665, L500.67368, L500.35137, L500.31050 #### [facility] [address] [place] [address] TRIG Collected: 08/19/2018 Status: F Source: [facility] 4:35 AM [facility] REPOSITORY Order Comment: [place]: M TYPE CODE TESTS RESULT OUT OF RANGE REFERENCE UNITS LAB L500.15427 30-149 MG/DL High TRIG 214 Result Comment: Patients receiving either N-Acetylcysteine (NAC) or Metamizole prior to venipuncture, may have falsely depressed results. Performed By: #### L500.65056, L500.19160, L500.92204, L500.23422, L500.19439 #### [facility] [address] [place] [address] PT Collected: 08/18/2018 Status: F Source: [facility] 4:37 AM [facility] REPOSITORY Order Comment: [place]: M TYPE CODE TESTS RESULT OUT OF RANGE REFERENCE UNITS LAB L300.13899 0.9-1.1 High INR 1.91 Result Comment: Recommended PT INR therapeutic range for detention and prophylactic therapy is 2.0 - 3.0. For heart valve and shunt patients the range is 2.5 - 3.5. LAB L300.17416 9.5-12.0 SECONDS High 19.3 PTS Performed By: #### L300.85450 #### [facility] [address] [place] [address] CBC W/DIFF Collected: 08/17/2018 Status: F Source: [facility] 5:44 AM [facility] REPOSITORY Order Comment: [place]: M TYPE CODE TESTS RESULT OUT OF RANGE REFERENCE UNITS LAB L200.72118 4.5-11.0 K/CU MM WBC Normal 5.1 LAB L200.19012 3.90-5.30 M/CU MM Low RBC 2.51 LAB L200.53857 11.5-15.5 G/DL Low HGB 7.9 LAB L200.01019 35.0-47.0 % Low HCT 25.5 LAB L200.18680 80.0-99.0 fl High MCV 101.6 LAB L200.44221 32.0-36.0 GM/DL Low MCHC 31.0 LAB L200.39406 11-14.5 High RDW 21.2 LAB L200.80427 9.4-12.4 Low MPV 8.7 LAB L200.70735 150-450 K/CU MM PLT Normal 265 LAB L200.11256 45-75 % NEUTROPHILS Normal % 70.7 LAB L200.92920 Less than 2 % IMMATURE Normal GRAN % 0.6 LAB L200.58275 20-40 % Low LYMPH % 17.1 LAB L200.88189 2-10 % MONOCYTE % Normal 9.2 LAB L200.65883 0-5 % EOSINOPHIL Normal % 2.0 LAB L200.03110 0-2 % BASOPHIL % Normal 0.4 LAB L200.89890 2.0-8.3 K/CU MM NEUTROPHIL Normal ABS 3.60 LAB L200.16177 Less than 2 K/CU MM IMMATR GRAN Normal ABS 0.00 LAB L200.70134 0.9-4.4 K/CU MM LYMPH ABS Normal 0.90 LAB L200.69288 0.1-1.1 K/CU MM MONO ABS Normal 0.50 LAB L200.48917 0-0.5 K/CU MM EOS ABS Normal 0.10 LAB L200.42709 0-0.2 K/CU MM BASO ABS Normal 0.00 LAB L200.47931 Less than 1 % NRBC Normal 0.0 Performed By: #### L200.94348 #### [facility] [address] [place] [address] PT Collected: 08/17/2018 Status: F Source: [facility] 5:44 AM [facility] REPOSITORY Order Comment: [place]: M TYPE CODE TESTS RESULT OUT OF RANGE REFERENCE UNITS LAB L300.64480 0.9-1.1 High INR 2.44 Result Comment: 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 For heart valve and shunt patients the range is 2.5 - 3.5. LAB L300.68801 9.5-12.0 SECONDS High 24.2 PTS Performed By: #### L300.28945 #### [facility] [address] [place] [address] CMP Collected: 08/17/2018 Status: F Source: [facility] 5:44 AM [facility] REPOSITORY Order Comment: [place]: M TYPE CODE TESTS RESULT OUT OF RANGE REFERENCE UNITS LAB L500.39353 136-145 MMOL/L Normal NA 142 LAB L500.60479 3.5-5.1 MMOL/L Low K 3.3 LAB L500.95433 98-107 MMOL/L Normal CL 103 LAB L500.29544 21-32 MMOL/L Normal CO2 31 LAB L500.89571 5-16 MMOL/L Normal AGAP 8 LAB L500.40533 70-100 MG/DL Normal GLU 97 Result Comment: 70-100- Normal Fasting; 100-125 Impaired Fasting; greater than 126 on more than one result- Diabetes. ADA guidelines. Results may be falsely elevated after the administration of Sulfapyridine. Results may be falsely depressed after the administration of Sulfasalazine. LAB L500.98878 7-26 MG/DL High BUN 37 LAB L500.21265 0.510-0.950 MG/DL Normal CREAT 0.935 Result Comment: Patients receiving either N-Acetylcysteine (NAC) or Metamizole prior to venipuncture, may have falsely depressed results. LAB L500.64086 15-24 High BUN/CREA 40 LAB L500.06710 6.0-8.5 GM/DL Low TP 4.8 LAB L500.36444 3.2-5.0 GM/DL Low ALBUMIN 1.7 LAB L500.75876 2.2-4.2 GM/DL Normal GLOBULIN 3.1 LAB L500.38601 0.8-2.0 Low A/G RATIO 0.6 LAB L500.70866 8.5-10.1 MG/DL Low CALCIUM TOTAL 8.0 LAB L500.79951 0.2-1.0 MG/DL Normal BILI TOTAL 0.3 LAB L500.72389 8-34 U/L Normal SGOT (AST) 20 Result Comment: RESULTS MAY BE FALSELY DEPRESSED AFTER THE ADMINISTRATION OF SULFASALAZINE AND/OR SULFAPYRIDINE. LAB L500.87365 13-61 IU/L Normal SGPT (ALT) 19 Result Comment: RESULTS MAY BE FALSELY DEPRESSED AFTER THE ADMINISTRATION OF SULFASALAZINE AND/OR SULFAPYRIDINE. LAB L500.52395 45-117 U/L High ALK PHOS 256 Performed By: #### L500.32355, L500.84969 #### [facility] [address] [place] [address] GFR EST Collected: 08/17/2018 Status: F Source: [facility] 5:44 AM [facility] REPOSITORY Order Comment: [place]: TYPE CODE TESTS RESULT OUT OF RANGE REFERENCE UNITS LAB L500.78706 ML/MIN Normal IF non-AFR 60 AMER LAB L500.36736 ML/MIN Normal IF Greater than AMER 60 Performed By: #### L500.89353, L500.02135 #### [facility] [address] [place] [address] PROG.NOTE Observed: 08/16/2018 Status: UNK Source: [facility] 10:53 AM [facility] REPOSITORY [facility] Patient Name: VENITA SMITH [address] [place] [address] Date of : [address] [address] Unit Number: [id number] Progress Note-Physician Patient Status: REG RCR Attending Doctor: Colette Sloan DO Service Date: 08/16/18 1053 Subjective S: (2 ROS minimum) Feeling ok. No abd pain. On TPN. Code status changed. No fever. Objective (ROS) Physical Exam Neurological / Psychiatric Alert Respiratory Normal Breathing Effort, Clear Lungs, diminished Cardiovascular tachy Gastrointestinal Non Tender, No Mass Skin sacral ulcer open with mild drainage Assessment and Plan Conclusion 1. 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 No growth of MRSA. 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 AcB was I to minocycline per [facility] lab, but very limited other options. Discharged to [facility] for planned 6 week course but course has been extended. At [facility], taken for partial flap placement 05/31. Bone cx with ESBL ecoli, CRE klebs, E faecium, diphtheroids. No Acinetobacter seen. Wound worsened. 06/07 changed bactrim to vanc. Both CRE and ESBL still sensitive to tetracycline. Gen surg consulted; CT abd/ pelvis showed fistula. Taken to OR 06/24 for resection and ostomy placement by Dr. Sanon. Sacral wound is overall much improved s/p ostomy and TPN. Has been on vanc, meropenem, and minocycline. Abd midline incision started to have persistent inflammation and draining pus. Wound cx with heavy purulence, cx with VRE and CRE klebs. Developed additional sites of pus able to be expressed from incision. CT showed no deeper abscess. 07/10 stopped vanc and meropenem, started linezolid and vabomere for additional coverage. Continuing minocycline. 07/10 overnight developed septic shock complicated by shock liver; LFTs improving but alk phos remains elevated with slower improved. Abd incision doing well now. Cxs neg except for single bcx with CoNS. Now off pressors. Wbc back to normal. Stop date for abx was 08/04/18; this would be a 6 week course starting from her fistula repair and diverting ostomy placement. Now s/p flap placement by Dr. Antunez on 08/02 without gross purulence seen in OR. Surg cx now with XDR AcB, CRE, and C.albicans. Wound with bloody drainage. Given cx and minimal improvement s/p OR, 08/07 restarted abx with colistin, vabomere, and lelsi. Requested micro lab do AcB testing for minocycline and colistin. As she grew the AcB while on lia, doubt this will be an option. Will need close Cr monitoring while on colistin, cr now higher than baseline with elevated K. 08/14, more edema, worsened sacral and posterior thigh wounds with some purulence. She is nearly out of antibiotic options and wounds are only worsening. Abx also seem to be causing CA, hyperkalemia. Neph consulted. Added linezolid. 08/15 now with ileus. Breathing better. Stopped colistin. Adjust fluconazole dose. CXR with no new changes. 08/16 Remains on linezolid, vabomere, and fluconazole. TPN was added. Now DNR-CCA. Cr and K doing better off of colistin. Will continue to follow. D/w wound care nurse. Disclaimer This dictation was created using voice recognition software. Phonetic and/or minor grammatical errors may exist. eSign Date and Time Syeda Palmer MD Verified/Reviewed by 08/16/18 1056 PROG.NEPH Observed: 08/16/2018 Status: UNK Source: [facility] 10:19 AM [facility] Patient Name: VENITA SMITH [facility] [employer] [facility] Date of : [address] [address] Unit Number: [id number] Progress Note-Nephrology Patient Status: REG RCR Attending Doctor: Colette Sloan DO Service Date: 08/16/18 1019 Progress Note-Nephrology([facility]) Subjective Subjective: Resting comfortably. On TPN. No acute events overnight. Objective Vital Signs: Stable Exam: Lungs-clear anteriorly Heart-regular Lower extremity-trace edema Medications: Review Lab Results: Lab 24hr (CBC/BMP [facility]) 08/16/18 0431: [Embedded Image Not Available] Anion Gap 7, Est GFR ( Amer) Greater than 60, Est GFR (Non-Af Amer) 53, BUN/ Creatinine Ratio 37 H, Glucose 67 L, Total Calcium 7.7 L, INR 4.47 H, PT Normal Mean Secs 42.4 H 08/15/18 1350: [Embedded Image Not Available] Assessment/Plan Assessment/Problem List: 1. CA (acute kidney injury) o improved; good urine output o nothing more to add. I will sign off. Please call for questions 2. Hyperkalemia o resolved. o okay to add (standard) potassium in next TPN bag Disclaimer This dictation was created using voice recognition software. Phonetic and/or minor grammatical errors may exist. eSign Date and Time Holden Thrasher MD Verified/Reviewed by 08/16/18 1021 PT Collected: 08/16/2018 Status: F Source: [facility] 4:31 AM [facility] REPOSITORY Order Comment: [place]: M TYPE CODE TESTS RESULT OUT OF RANGE REFERENCE UNITS LAB L300.24788 0.9-1.1 High INR 4.47 Result Comment: Recommended PT INR therapeutic range for detention and prophylactic therapy is 2.0 - 3.0. For heart valve and shunt patients the range is 2.5 - 3.5. LAB L300.79109 9.5-12.0 SECONDS High 42.4 PTS Performed By: #### L300.16197 #### [facility] [address] [place] [address] BMP Collected: 08/16/2018 Status: F Source: [facility] 4:31 AM [facility] REPOSITORY Order Comment: [place]: M TYPE CODE TESTS RESULT OUT OF RANGE REFERENCE UNITS LAB L500.21278 136-145 MMOL/L Normal NA 145 LAB L500.32134 3.5-5.1 MMOL/L Normal K 3.9 LAB L500.07074 98-107 MMOL/L High CL 108 LAB L500.48599 21-32 MMOL/L Normal CO2 30 LAB L500.25595 5-16 MMOL/L Normal AGAP 7 LAB L500.58027 70-100 MG/DL Low GLU 67 Result Comment: 70-100- Normal Fasting; 100-125 Impaired Fasting; greater than 126 on more than one result- Diabetes. ADA guidelines. Results may be falsely elevated after the administration of Sulfapyridine. Results may be falsely depressed after the administration of Sulfasalazine. LAB L500.55214 7-26 MG/DL High BUN 38 LAB L500.16316 0.510-0.950 MG/DL High CREAT 1.040 Result Comment: Patients receiving either N-Acetylcysteine (NAC) or Metamizole prior to venipuncture, may have falsely depressed results. LAB L500.80963 15-24 BUN/CREA High 37 LAB L500.79561 8.5-10.1 MG/DL Low CALCIUM TOTAL 7.7 Performed By: #### L500.62075, L500.34086 #### [facility] [address] [place] [address] GFR EST Collected: 08/16/2018 Status: F Source: [facility] 4:31 AM [facility] REPOSITORY Order Comment: [place]: M TYPE CODE TESTS RESULT OUT OF RANGE REFERENCE UNITS LAB L500.67078 ML/MIN Normal IF non-AFR 53 AMER LAB L500.79862 ML/MIN Normal IF Greater than AMER 60 Performed By: #### L500.80815, L500.42815 #### [facility] [address] [place] [address] PROG.NOTE Observed: 08/15/2018 Status: UNK Source: [facility] 5:01 PM [facility] REPOSITORY [facility] Patient Name: VENITA SMITH [address] [place] [address] Date of : [address] [address] Unit Number: [id number] Progress Note-Physician Patient Status: REG RCR Attending Doctor: Colette Sloan DO Service Date: 08/15/18 1701 Subjective S: (2 ROS minimum) Feeling better, c/o being thirsty. Denies abd pain, no fever. Objective (ROS) Physical Exam Neurological / Psychiatric Alert Respiratory Normal Breathing Effort, Clear Lungs Cardiovascular tachy Gastrointestinal Non Tender, No Mass Skin sacral wound Assessment and Plan Conclusion 1. 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 No growth of MRSA. 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 AcB was I to minocycline per [facility] micro lab, but very limited other options. Discharged to [facility] for planned 6 week course but course has been extended. At [facility], taken for partial flap placement 05/31. Bone cx with ESBL ecoli, CRE klebs, E faecium, diphtheroids. No Acinetobacter seen. Wound worsened. 06/07 changed bactrim to vanc. Both CRE and ESBL still sensitive to tetracycline. Gen surg consulted; CT abd/ pelvis showed fistula. Taken to OR 06/24 for resection and ostomy placement by Dr. Sanon. Sacral wound is overall much improved s/p ostomy and TPN. Has been on vanc, meropenem, and minocycline. Abd midline incision started to have persistent inflammation and draining pus. Wound cx with heavy purulence, cx with VRE and CRE klebs. Developed additional sites of pus able to be expressed from incision. CT showed no deeper abscess. 07/10 stopped vanc and meropenem, started linezolid and vabomere for additional coverage. Continuing minocycline. 07/10 overnight developed septic shock complicated by shock liver; LFTs improving but alk phos remains elevated with slower improved. Abd incision doing well now. Cxs neg except for single bcx with CoNS. Now off pressors. Wbc back to normal. Stop date for abx was 08/04/18; this would be a 6 week course starting from her fistula repair and diverting ostomy placement. Now s/p flap placement by Dr. Antunez on 08/02 without gross purulence seen in OR. Surg cx now with XDR AcB, CRE, and C.albicans. Wound with bloody drainage. Given cx and minimal improvement s/p OR, 08/07 restarted abx with colistin, vabomere, and lesli. Requested micro lab do AcB testing for minocycline and colistin. As she grew the AcB while on lia, doubt this will be an option. Will need close Cr monitoring while on colistin, cr now higher than baseline with elevated K. 08/14, more edema, worsened sacral and posterior thigh wounds with some purulence. She is nearly out of antibiotic options and wounds are only worsening. Abx also seem to be causing CA, hyperkalemia. Neph consulted. Added linezolid. 08/15 now with ileus. Breathing better. Will stop colistin. Adjust fluconazole dose. CXR with no new changes. Will continue to follow. Disclaimer This dictation was created using voice recognition software. Phonetic and/or minor grammatical errors may exist. eSign Date and Time Syeda Palmer MD Verified/Reviewed by 08/15/18 1702 K Collected: 08/15/2018 Status: F Source: [facility] 1:50 PM [facility] REPOSITORY Order Comment: [place]: M TYPE CODE TESTS RESULT OUT OF RANGE REFERENCE UNITS LAB L500.05895 3.5-5.1 MMOL/L Normal K 5.1 Performed By: #### L500.64782 #### [facility] [address] [place] [address] PROG.NEPH Observed: 08/15/2018 Status: UNK Source: [facility] 1:18 PM [facility] REPOSITORY [facility] Patient Name: VENITA SMITH [address] [facility] Date of : [address] [address] Unit Number: [id number] Progress Note-Nephrology Patient Status: REG RCR Attending Doctor: Colette Sloan DO Service Date: 08/15/18 1318 Progress Note-Nephrology([facility]) Subjective Subjective: Seen and examined. Comfortable. Denies shortness of breath. Abdominal distention Objective Vital Signs: Stable Exam: Lungs-decreased at bases Heart-regular Abdomen-distended; bowel sounds sluggish Lower extremity-trace edema Medications: Reviewed Radiology Impressions: Recent Impressions (LAST) RADIOLOGY - ABDOMEN OR KUB 08/15 525 Report Impression - Status: SIGNED Entered: 08/15/2018 0800 IMPRESSION: Gaseous distention of the stomach and small bowel which has progressed. The findings may be related to functional ileus or developing obstruction. Impression By: JAMESON MALLOY M.D. RADIOLOGY - PORTABLE CHEST 08/15 525 Report Impression - Status: SIGNED Entered: 08/15/2018 0754 IMPRESSION: No significant interval change. Impression By: ALEJANDRA HAMMOND M.D. Lab Results: Lab 24hr (CBC/BMP Fishbone) 08/15/18 0437: [Embedded Image Not Available] Anion Gap 8, Est GFR ( Amer) Greater than 60, Est GFR (Non-Af Amer) 51, BUN/ Creatinine Ratio 40 H, Glucose 84, Total Calcium 7.8 L, Phosphorus 5.2 H, Magnesium 1.6, Total Bilirubin 0.3, AST 33, ALT 31, Alkaline Phosphatase 312 H, Serum Total Protein 4.9 L , Albumin 1.8 L, Globulin 3.1, Albumin/Globulin Ratio 0.6 L, INR 7.68 *H, PT Normal Mean Secs 70.0 H, RBC 2.53 L, MCV 105.5 H, MCHC 30.7 L, RDW 23.6 H, MPV 8.9 L, Immature Gran % (Auto) 0.9, Abs Immat Gran (auto) 0.10, Seg Neutrophils % 69.4, Lymphocytes % 15.8 L, Monocytes % 12.1 H, Eosinophils % 1.5, Basophils % 0.3, Neutrophils # 4.50, Lymphocytes # 1.00, Monocytes # 0.80, Eosinophils # 0.10, Basophils # 0.00, Nucleated RBCs 0.0 08/14/18 1350: [Embedded Image Not Available] Assessment/Plan Assessment/Problem List: 1. CA (acute kidney injury) o prerenal, secondary to ERAN inhibitors/diuretics o stable azotemia o off lisinopril o check a.m. labs 2. Hyperkalemia o secondary to ERAN inhibitor/CA/dietary intake o mild/moderate o lisinopril discontinued yesterday o DC potassium in TPN if initiated o recheck potassium now; may consider Kayexalate enema if needed Communication Today with: Discussed with RN Disclaimer This dictation was created using voice recognition software. Phonetic and/or minor grammatical errors may exist. eSign Date and Time Holden Thrasher MD Verified/Reviewed by 08/15/18 1324 FFPL Collected: 08/15/2018 Status: F Source: [facility] 6:45 AM [facility] REPOSITORY TYPE CODE TESTS RESULT OUT OF REFERENCE UNITS RANGE LAB U800.0003 FFPL TRANSFUSED PRODUCT: FRESH FROZEN PLASMA COUNT: 2 CBC W/DIFF Collected: 08/15/2018 Status: F Source: [facility] 4:37 AM [facility] REPOSITORY Order Comment: [place]: TYPE CODE TESTS RESULT OUT OF RANGE REFERENCE UNITS LAB L200.71064 4.5-11.0 K/CU MM WBC Normal 6.5 LAB L200.23793 3.90-5.30 M/CU MM Low RBC 2.53 LAB L200.28371 11.5-15.5 G/DL Low HGB 8.2 LAB L200.87200 35.0-47.0 % Low HCT 26.7 LAB L200.16725 80.0-99.0 fl High MCV 105.5 LAB L200.95817 32.0-36.0 GM/DL Low MCHC 30.7 LAB L200.95301 11-14.5 High RDW 23.6 LAB L200.15195 9.4-12.4 Low MPV 8.9 LAB L200.28452 150-450 K/CU MM PLT Normal 229 LAB L200.30520 45-75 % NEUTROPHILS Normal % 69.4 LAB L200.37293 Less than 2 % IMMATURE Normal GRAN % 0.9 LAB L200.48076 20-40 % Low LYMPH % 15.8 LAB L200.65325 2-10 % High MONOCYTE % 12.1 LAB L200.61270 0-5 % EOSINOPHIL Normal % 1.5 LAB L200.69741 0-2 % BASOPHIL % Normal 0.3 LAB L200.13171 2.0-8.3 K/CU MM NEUTROPHIL Normal ABS 4.50 LAB L200.71071 Less than 2 K/CU MM IMMATR GRAN Normal ABS 0.10 LAB L200.69119 0.9-4.4 K/CU MM LYMPH ABS Normal 1.00 LAB L200.82942 0.1-1.1 K/CU MM MONO ABS Normal 0.80 LAB L200.93183 0-0.5 K/CU MM EOS ABS Normal 0.10 LAB L200.48115 0-0.2 K/CU MM BASO ABS Normal 0.00 LAB L200.42364 Less than 1 % NRBC Normal 0.0 Performed By: #### L200.76260 #### [facility] [address] [place] [address] PT Collected: 08/15/2018 Status: F Source: [facility] 4:37 AM [facility] REPOSITORY Order Comment: [place]: M TYPE CODE TESTS RESULT OUT OF RANGE REFERENCE UNITS LAB L300.76841 0.9-1.1 High alert INR 7.68 Result Comment: CRITICAL VALUE(S) VERIFIED AND CALLED TO AND READ BACK BY TERRIE AGUIRRE AT 0526 08/15/18 BY ANGELIQUE LIM Recommended PT INR therapeutic range for detention and prophylactic therapy is 2.0 - 3.0. For heart valve and shunt patients the range is 2.5 - 3.5. LAB L300.64016 9.5-12.0 SECONDS High 70.0 PTS Performed By: #### L300.88724 #### [facility] [address] [place] [address] CMP Collected: 08/15/2018 Status: F Source: [facility] 4:37 AM [facility] REPOSITORY Order Comment: [place]: TYPE CODE TESTS RESULT OUT OF RANGE REFERENCE UNITS LAB L500.37917 136-145 MMOL/L Normal NA 144 LAB L500.30348 3.5-5.1 MMOL/L High K 5.7 LAB L500.57466 98-107 MMOL/L Normal CL 107 LAB L500.87941 21-32 MMOL/L Normal CO2 28 LAB L500.04659 5-16 MMOL/L Normal AGAP 8 LAB L500.58313 70-100 MG/DL Normal GLU 84 Result Comment: 70-100- Normal Fasting; 100-125 Impaired Fasting; greater than 126 on more than one result- Diabetes. ADA guidelines. Results may be falsely elevated after the administration of Sulfapyridine. Results may be falsely depressed after the administration of Sulfasalazine. LAB L500.48176 7-26 MG/DL High BUN 43 LAB L500.67828 0.510-0.950 MG/DL High CREAT 1.070 Result Comment: Patients receiving either N-Acetylcysteine (NAC) or Metamizole prior to venipuncture, may have falsely depressed results. LAB L500.42528 15-24 High BUN/CREA 40 LAB L500.25009 6.0-8.5 GM/DL Low TP 4.9 LAB L500.81296 3.2-5.0 GM/DL Low ALBUMIN 1.8 LAB L500.66674 2.2-4.2 GM/DL Normal GLOBULIN 3.1 LAB L500.30163 0.8-2.0 Low A/G RATIO 0.6 LAB L500.78980 8.5-10.1 MG/DL Low CALCIUM TOTAL 7.8 LAB L500.07228 0.2-1.0 MG/DL Normal BILI TOTAL 0.3 LAB L500.60170 8-34 U/L Normal SGOT (AST) 33 Result Comment: RESULTS MAY BE FALSELY DEPRESSED AFTER THE ADMINISTRATION OF SULFASALAZINE AND/OR SULFAPYRIDINE. LAB L500.82991 13-61 IU/L Normal SGPT (ALT) 31 Result Comment: RESULTS MAY BE FALSELY DEPRESSED AFTER THE ADMINISTRATION OF SULFASALAZINE AND/OR SULFAPYRIDINE. LAB L500.04677 45-117 U/L High ALK PHOS 312 Performed By: #### L500.32042, L500.19413, L500.97011, L500.86531 #### [facility] [address] [place] [address] GFR EST Collected: 08/15/2018 Status: F Source: [facility] 4:37 AM [facility] REPOSITORY Order Comment: [place]: M TYPE CODE TESTS RESULT OUT OF RANGE REFERENCE UNITS LAB L500.77971 ML/MIN Normal IF non-AFR 51 AMER LAB L500.67895 ML/MIN Normal IF Greater than AMER 60 Performed By: #### L500.77930, L500.68481, L500.52886, L500.04331 #### [facility] [address] [place] [address] PHOS Collected: 08/15/2018 Status: F Source: [facility] 4:37 AM [facility] REPOSITORY Order Comment: [place]: M TYPE CODE TESTS RESULT OUT OF RANGE REFERENCE UNITS LAB L500.94057 2.5-4.9 MG/DL High PHOS 5.2 Performed By: #### L500.01667, L500.35593, L500.54489, L500.50462 #### [facility] [address] [place] [address] MAGNESIUM Collected: 08/15/2018 Status: F Source: [facility] 4:37 AM [facility] REPOSITORY Order Comment: [place]: M TYPE CODE TESTS RESULT OUT OF RANGE REFERENCE UNITS LAB L500.02359 1.6-2.6 MG/DL Normal MAGNESIUM 1.6 Performed By: #### L500.09660, L500.10834, L500.44083, L500.55996 #### [facility] [address] [place] [address] Observed: 08/15/2018 Status: CANCELLED Source: [facility] RESP/SPUT CULT 4:00 AM [facility] REPOSITORY Order Comment: NO SPECIMEN RECEIVED This report has been cancelled K Collected: 08/14/2018 Status: F Source: [facility] 1:50 PM [facility] REPOSITORY Order Comment: [place]: M TYPE CODE TESTS RESULT OUT OF RANGE REFERENCE UNITS LAB L500.76377 3.5-5.1 MMOL/L High K 5.6 Performed By: #### L500.12492 #### [facility] [address] [place] [address] ABGP Collected: 08/14/2018 Status: F Source: [facility] 12:38 PM [facility] REPOSITORY Order Comment: [place]: M Patient's Anticoagulant? UNKNOWN TYPE CODE TESTS RESULT OUT OF RANGE REFERENCE UNITS LAB L100.43849 11.5-15.5 GM/DL Low ABG HGB 9.6 LAB L100.63063 7.35-7.45 ABG Normal PH 7.36 LAB L100.05209 35-45 MMHG High ABG PCO2 51.5 LAB L100.82305 80-100 MMHG High ABG PO2 167 LAB L100.15545 22-26 MMOL/L High ABG HCO3 28.6 LAB L100.05641 -2.0-2.0 MMOL/L High ABG BE 2.4 LAB L100.65019 90-100 % ABG Normal O2HB SAT 98.0 LAB L100.31263 0-10 % ABG Normal COHBA 1.3 LAB L100.84011 0.4-1.5 % Low ABG MET 0.2 LAB L100.00802 0-5 % ABG Normal REDUCED HGB 0.5 LAB L100.35308 mL/dL ABG Normal O2 CAPACITY 13.1 LAB L100.08979 C PT Normal TEMP 36.4 LAB L100.81294 Normal SAMPLE TYPE ARTERIAL LAB L100.42610 R Normal SAMPLE SITE RADIAL LAB L100.54891 Normal EQUIPMENT BIPAP LAB L100.88021 % FIO2 55 Normal LAB L100.05737 PER MIN RESP. 20 Normal RATE LAB L100.59305 TIDAL Normal VOLUME Result Comment: AVAPS 09/07/10 LAB L100.85293 Normal POSITIVE ADONAY TEST Performed By: #### L100.43850 #### [facility] [place] [address] PROG.NOTE Observed: 08/14/2018 Status: UNK Source: [facility] 10:39 AM [facility] REPOSITORY [facility] Patient Name: VENITA SMITH0 [facility] Date of : [address] [address] Unit Number: [id number] Progress Note-Physician Patient Status: REG RCR Attending Doctor: Colette Sloan DO Service Date: 08/14/18 1039 Subjective S: (2 ROS minimum) Required narcan this AM after morphine for wound eval. Now tachypneic. Objective (ROS) Physical Exam Neurological / Psychiatric Dec. Lvl of Conciousness Respiratory diminished, coarse Cardiovascular tachy Gastrointestinal Non Tender, No Mass (ostomy in place) Skin worsened sacral and posterior thigh wound Assessment and Plan Conclusion 1. 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 No growth of MRSA. 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 AcB was I to minocycline per [facility] lab, but very limited other options. Discharged to [facility] for planned 6 week course but course has been extended. At [facility], taken for partial flap placement 05/31. Bone cx with ESBL ecoli, CRE klebs, E faecium, diphtheroids. No Acinetobacter seen. Wound worsened. 06/07 changed bactrim to vanc. Both CRE and ESBL still sensitive to tetracycline. Gen surg consulted; CT abd/ pelvis showed fistula. Taken to OR 06/24 for resection and ostomy placement by Dr. Sanon. Sacral wound is overall much improved s/p ostomy and TPN. Has been on vanc, meropenem, and minocycline. Abd midline incision started to have persistent inflammation and draining pus. Wound cx with heavy purulence, cx with VRE and CRE klebs. Developed additional sites of pus able to be expressed from incision. CT showed no deeper abscess. 07/10 stopped vanc and meropenem, started linezolid and vabomere for additional coverage. Continuing minocycline. 07/10 overnight developed septic shock complicated by shock liver; LFTs improving but alk phos remains elevated with slower improved. Abd incision doing well now. Cxs neg except for single bcx with CoNS. Now off pressors. Wbc back to normal. Stop date for abx was 08/04/18; this would be a 6 week course starting from her fistula repair and diverting ostomy placement. Now s/p flap placement by Dr. Antunez on 08/02 without gross purulence seen in OR. Surg cx now with XDR AcB, CRE, and C.albicans. Wound with bloody drainage. Given cx and minimal improvement s/p OR, 08/07 restarted abx with colistin, vabomere, and lesli. Requested micro lab do AcB testing for minocycline and colistin. As she grew the AcB while on lia, doubt this will be an option. Will need close Cr monitoring while on colistin, cr now higher than baseline with elevated K. This AM, more edema, worsened sacral and posterior thigh wounds with some purulence. She is nearly out of antibiotic options and wounds are only worsening. Abx also seem to be causing CA, hyperkalemia. Neph is being consulted. Now in respiratory distress related to edema and morphine. 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 Will add linezolid, requested wound cx. Will continue to follow. D/w nursing and wound care. Disclaimer This dictation was created using voice recognition software. Phonetic and/or minor grammatical errors may exist. eSign Date and Time Syeda Palmer MD Verified/Reviewed by 08/14/18 1045 ABGP Collected: 08/14/2018 Status: F Source: [facility] 10:04 AM [facility] REPOSITORY Order Comment: [place]: M Patient's Anticoagulant? COUMADIN TYPE CODE TESTS RESULT OUT OF RANGE REFERENCE UNITS LAB L100.80704 11.5-15.5 GM/DL Low ABG HGB 11.4 LAB L100.35602 7.35-7.45 Low alert ABG PH 7.18 Result Comment: CRITICAL VALUE(S) VERIFIED AND CALLED TO AND READ BACK BY Cal GUNN RN AT 1021 08/14/18 BY CORONA PURVIS LAB L100.87846 35-45 MMHG High ABG alert PCO2 82.1 LAB L100.54108 80-100 MMHG Low ABG 57 PO2 LAB L100.96813 22-26 MMOL/L High ABG HCO3 30.5 LAB L100.47746 -2.0-2.0 MMOL/L ABG Normal BE 0.2 LAB L100.32272 90-100 % Low ABG alert O2HB SAT 82.0 LAB L100.16959 0-10 % ABG Normal COHBA 1.9 LAB L100.05294 0.4-1.5 % Low ABG MET 0.1 LAB L100.55754 0-5 % High ABG alert REDUCED HGB 16.0 LAB L100.55399 mL/dL ABG Normal O2 CAPACITY 15.5 LAB L100.61868 C PT Normal TEMP 36.2 LAB L100.85918 Normal SAMPLE TYPE ARTERIAL LAB L100.44969 R Normal SAMPLE SITE RADIAL LAB L100.74133 Normal EQUIPMENT VENTURI MASK LAB L100.25376 % FIO2 50 Normal LAB L100.94593 ADONAY Normal TEST POSITIVE Performed By: #### L100.35744 #### [facility] [address] [place] [address] PT Collected: 08/14/2018 Status: F Source: [facility] 4:37 AM [facility] REPOSITORY Order Comment: [place]: M TYPE CODE TESTS RESULT OUT OF RANGE REFERENCE UNITS LAB L300.90623 0.9-1.1 High alert INR 5.48 Result Comment: CRITICAL VALUE(S) VERIFIED AND CALLED TO AND READ BACK BY TERRIE AGUIRRE AT 0515 08/14/18 BY ANGELIQUE LIM 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 For heart valve and shunt patients the range is 2.5 - 3.5. LAB L300.68531 9.5-12.0 SECONDS High 51.2 PTS Performed By: #### L300.51586 #### [facility] [address] [place] [address] BMP Collected: 08/14/2018 Status: F Source: [facility] 4:37 AM [facility] REPOSITORY Order Comment: [place]: M TYPE CODE TESTS RESULT OUT OF RANGE REFERENCE UNITS LAB L500.23514 136-145 MMOL/L Normal NA 142 LAB L500.90659 3.5-5.1 MMOL/L High K 6.0 LAB L500.03036 98-107 MMOL/L Normal CL 105 LAB L500.64441 21-32 MMOL/L Normal CO2 30 LAB L500.67088 5-16 MMOL/L Normal AGAP 7 LAB L500.96497 70-100 MG/DL High GLU 123 Result Comment: 70-100- Normal Fasting; 100-125 Impaired Fasting; greater than 126 on more than one result- Diabetes. ADA guidelines. Results may be falsely elevated after the administration of Sulfapyridine. Results may be falsely depressed after the administration of Sulfasalazine. LAB L500.16129 7-26 MG/DL High BUN 43 LAB L500.70924 0.510-0.950 MG/DL High CREAT 1.100 Result Comment: Patients receiving either N-Acetylcysteine (NAC) or Metamizole prior to venipuncture, may have falsely depressed results. LAB L500.92911 15-24 BUN/CREA High 39 LAB L500.95612 8.5-10.1 MG/DL Low CALCIUM TOTAL 8.3 Performed By: #### L500.32256, L500.15458 #### [facility] [address] [place] [address] GFR EST Collected: 08/14/2018 Status: F Source: [facility] 4:37 AM [facility] REPOSITORY Order Comment: [place]: M TYPE CODE TESTS RESULT OUT OF RANGE REFERENCE UNITS LAB L500.91007 ML/MIN Normal IF non-AFR 49 AMER LAB L500.10947 ML/MIN Normal IF 60 AMER Performed By: #### L500.22155, L500.76042 #### [facility] [address] [place] [address] FFPL Collected: 08/13/2018 Status: F Source: [facility] 8:13 AM [facility] REPOSITORY TYPE CODE TESTS RESULT OUT OF REFERENCE UNITS RANGE LAB U800.0003 FFPL TRANSFUSED PRODUCT: FRESH FROZEN PLASMA COUNT: 2 PT Collected: 08/13/2018 Status: F Source: [facility] 6:27 AM [facility] REPOS[facility] Order Comment: 0414 SPECIMEN NEEDS REDRAWN; QUESTIONABLE RESULTS TYPE CODE TESTS RESULT OUT OF RANGE REFERENCE UNITS LAB L300.38909 0.9-1.1 High alert INR 9.27 Result Comment: CRITICAL VALUE(S) VERIFIED AND CALLED TO AND READ BACK BY JOANN AT 0716 08/13/18 BY RODRIGUE LANGLEY Recommended PT INR therapeutic range for detention and prophylactic therapy is 2.0 - 3.0. For heart valve and shunt patients the range is 2.5 - 3.5. LAB L300.01164 9.5-12.0 SECONDS High 83.3 PTS Performed By: #### L300.86558 #### [facility] [address] [place] [address] BMP Collected: 08/13/2018 Status: F Source: [facility] 4:14 AM [facility] REPOSITORY Order Comment: [place]: TYPE CODE TESTS RESULT OUT OF RANGE REFERENCE UNITS LAB L500.98659 136-145 MMOL/L Normal NA 142 LAB L500.55592 3.5-5.1 MMOL/L High K 5.8 LAB L500.08304 98-107 MMOL/L Normal CL 107 LAB L500.05431 21-32 MMOL/L Normal CO2 28 LAB L500.03742 5-16 MMOL/L Normal AGAP 7 LAB L500.17067 70-100 MG/DL High GLU 250 Result Comment: 70-100- Normal Fasting; 100-125 Impaired Fasting; greater than 126 on more than one result- Diabetes. ADA guidelines. Results may be falsely elevated after the administration of Sulfapyridine. Results may be falsely depressed after the administration of Sulfasalazine. LAB L500.75623 7-26 MG/DL High BUN 42 LAB L500.01908 0.510-0.950 MG/DL High CREAT 1.100 Result Comment: Patients receiving either N-Acetylcysteine (NAC) or Metamizole prior to venipuncture, may have falsely depressed results. LAB L500.35993 15-24 BUN/CREA High 38 LAB L500.93895 8.5-10.1 MG/DL Low CALCIUM TOTAL 8.0 Performed By: #### L500.76113, L500.81879 #### [facility] [address] [place] [id number] GFR EST Collected: 08/13/2018 Status: F Source: [facility] 4:14 AM [facility] REPOSITORY Order Comment: [place]: M TYPE CODE TESTS RESULT OUT OF RANGE REFERENCE UNITS LAB L500.79742 ML/MIN Normal IF non-AFR 49 AMER LAB L500.42643 ML/MIN Normal IF 60 AMER Performed By: #### L500.32160, L500.92875 #### [facility] [address] [place] [address] PROG.NOTE Observed: 08/12/2018 Status: UNK Source: [facility] 11:35 AM [facility] REPOSITORY [facility] Patient Name: VENITA SMITH [address] [place] [address] Date of : [address] [address] Unit Number: [id number] Progress Note-Physician Patient Status: REG RCR Attending Doctor: Colette Sloan DO Service Date: 08/12/18 1135 Subjective S: (2 ROS minimum) Feeling ok, no fever, no n/v. Wound vac removed. Objective (ROS) Physical Exam Neurological / Psychiatric Alert Respiratory Normal Breathing Effort, Clear Lungs Cardiovascular Heart RRR, No M / R / G Gastrointestinal Non Tender, No Mass Skin No Rash (no new rash) Assessment and Plan Conclusion 1. 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 No growth of MRSA. 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 AcB was I to minocycline per [facility] micro lab, but very limited other options. Discharged to [facility] for planned 6 week course but course has been extended. At [facility], taken for partial flap placement 05/31. Bone cx with ESBL ecoli, CRE klebs, E faecium, diphtheroids. No Acinetobacter seen. Wound worsened. 06/07 changed bactrim to vanc. Both CRE and ESBL still sensitive to tetracycline. Gen surg consulted; CT abd/ pelvis showed fistula. Taken to OR 06/24 for resection and ostomy placement by Dr. Sanon. Sacral wound is overall much improved s/p ostomy and TPN. Has been on vanc, meropenem, and minocycline. Abd midline incision started to have persistent inflammation and draining pus. Wound cx with heavy purulence, cx with VRE and CRE klebs. Developed additional sites of pus able to be expressed from incision. CT showed no deeper abscess. 07/10 stopped vanc and meropenem, started linezolid and vabomere for additional coverage. Continuing minocycline. 07/10 overnight developed septic shock complicated by shock liver; LFTs improving but alk phos remains elevated with slower improved. Abd incision doing well now. Cxs neg except for single bcx with CoNS. Now off pressors. Wbc back to normal. Stop date for abx was 08/04/18; this would be a 6 week course starting from her fistula repair and diverting ostomy placement. Now s/p flap placement by Dr. Antunez on 08/02 without gross purulence seen in OR. Surg cx now with XDR AcB, CRE, and C.albicans. Wound with bloody drainage. Given cx and minimal improvement s/p OR, 08/07 restarted abx with colistin, vabomere, and lesli. Requested micro lab do AcB testing for minocycline and colistin. As she grew the AcB while on lia, doubt this will be an option. Will need close Cr monitoring while on colistin, cr now higher than baseline but stable today Will continue to follow. D/w wound care. Disclaimer This dictation was created using voice recognition software. Phonetic and/or minor grammatical errors may exist. eSign Date and Time Syeda Palmer MD Verified/Reviewed by 08/12/18 1136 CBC W/DIFF Collected: 08/12/2018 Status: F Source: [facility] 4:47 AM [facility] REPOSITORY Order Comment: [place]: M TYPE CODE TESTS RESULT OUT OF RANGE REFERENCE UNITS LAB L200.50770 4.5-11.0 K/CU MM WBC Normal 8.3 LAB L200.14513 3.90-5.30 M/CU MM Low RBC 2.84 LAB L200.37179 11.5-15.5 G/DL Low HGB 9.2 LAB L200.91271 35.0-47.0 % Low HCT 29.3 LAB L200.05290 80.0-99.0 fl High MCV 103.2 LAB L200.52608 32.0-36.0 GM/DL Low MCHC 31.4 LAB L200.16547 11-14.5 High RDW 23.9 LAB L200.89366 9.4-12.4 Low MPV 8.8 LAB L200.33879 150-450 K/CU MM PLT Normal 218 LAB L200.57271 45-75 % NEUTROPHILS Normal % 74.3 LAB L200.60573 Less than 2 % IMMATURE Normal GRAN % 1.7 LAB L200.00369 20-40 % Low LYMPH % 11.9 LAB L200.73123 2-10 % High MONOCYTE % 10.8 LAB L200.91432 0-5 % EOSINOPHIL Normal % 1.1 LAB L200.23276 0-2 % BASOPHIL % Normal 0.2 LAB L200.47963 2.0-8.3 K/CU MM NEUTROPHIL Normal ABS 6.10 LAB L200.56719 Less than 2 K/CU MM IMMATR GRAN Normal ABS 0.10 LAB L200.73914 0.9-4.4 K/CU MM LYMPH ABS Normal 1.00 LAB L200.92937 0.1-1.1 K/CU MM MONO ABS Normal 0.90 LAB L200.01249 0-0.5 K/CU MM EOS ABS Normal 0.10 LAB L200.17498 0-0.2 K/CU MM BASO ABS Normal 0.00 LAB L200.59901 Less than 1 % NRBC Normal 0.0 Performed By: #### L200.35662 #### [facility] [place] [address] CMP Collected: 08/12/2018 Status: F Source: [facility] 4:47 AM [facility] REPOSITORY Order Comment: [place]: TYPE CODE TESTS RESULT OUT OF RANGE REFERENCE UNITS LAB L500.61145 136-145 MMOL/L Normal NA 140 LAB L500.13365 3.5-5.1 MMOL/L High K 5.8 LAB L500.10215 98-107 MMOL/L High CL 108 LAB L500.81302 21-32 MMOL/L Normal CO2 26 LAB L500.78955 5-16 MMOL/L Normal AGAP 6 LAB L500.68437 70-100 MG/DL Low GLU 55 Result Comment: 70-100- Normal Fasting; 100-125 Impaired Fasting; greater than 126 on more than one result- Diabetes. ADA guidelines. Results may be falsely elevated after the administration of Sulfapyridine. Results may be falsely depressed after the administration of Sulfasalazine. LAB L500.51959 7-26 MG/DL High BUN 39 LAB L500.90715 0.510-0.950 MG/DL High CREAT 1.000 Result Comment: Patients receiving either N-Acetylcysteine (NAC) or Metamizole prior to venipuncture, may have falsely depressed results. LAB L500.79075 15-24 High BUN/CREA 39 LAB L500.93590 6.0-8.5 GM/DL Low TP 5.3 LAB L500.94889 3.2-5.0 GM/DL Low ALBUMIN 1.9 LAB L500.30926 2.2-4.2 GM/DL Normal GLOBULIN 3.4 LAB L500.53499 0.8-2.0 Low A/G RATIO 0.6 LAB L500.24384 8.5-10.1 MG/DL Normal CALCIUM TOTAL 8.7 LAB L500.32285 0.2-1.0 MG/DL Normal BILI TOTAL 0.2 LAB L500.13220 8-34 U/L Normal SGOT (AST) 30 Result Comment: RESULTS MAY BE FALSELY DEPRESSED AFTER THE ADMINISTRATION OF SULFASALAZINE AND/OR SULFAPYRIDINE. LAB L500.53756 13-61 IU/L Normal SGPT (ALT) 42 Result Comment: RESULTS MAY BE FALSELY DEPRESSED AFTER THE ADMINISTRATION OF SULFASALAZINE AND/OR SULFAPYRIDINE. LAB L500.45593 45-117 U/L High ALK PHOS 341 Performed By: #### L500.28305, L500.41787, L500.57337, L500.05402 #### [facility] [address] [place] [address] GFR EST Collected: 08/12/2018 Status: F Source: [facility] 4:47 AM [facility] REPOSITORY Order Comment: [place]: M TYPE CODE TESTS RESULT OUT OF RANGE REFERENCE UNITS LAB L500.88496 ML/MIN Normal IF non-AFR 55 AMER LAB L500.84749 ML/MIN Normal IF Greater than AMER 60 Performed By: #### L500.76614, L500.99526, L500.14343, L500.79244 #### [facility] [place] [address] PHOS Collected: 08/12/2018 Status: F Source: [facility] 4:47 AM [facility] REPOSITORY Order Comment: [place]: M TYPE CODE TESTS RESULT OUT OF RANGE REFERENCE UNITS LAB L500.49560 2.5-4.9 MG/DL High PHOS 5.2 Performed By: #### L500.85349, L500.06293, L500.42869, L500.55778 #### [facility] [address] [place] [address] MAGNESIUM Collected: 08/12/2018 Status: F Source: [facility] 4:47 AM [facility] REPOSITORY Order Comment: [place]: M TYPE CODE TESTS RESULT OUT OF RANGE REFERENCE UNITS LAB L500.90788 1.6-2.6 MG/DL Normal MAGNESIUM 1.9 Performed By: #### L500.15733, L500.25307, L500.13139, L500.79756 #### [facility] [address] [place] [address] PT Collected: 08/12/2018 Status: F Source: [facility] 4:47 AM [facility] REPOSITORY Order Comment: [place]: M TYPE CODE TESTS RESULT OUT OF RANGE REFERENCE UNITS LAB L300.67717 0.9-1.1 High alert INR 5.39 Result Comment: CRITICAL VALUE(S) VERIFIED AND CALLED TO AND READ BACK BY AMIE ARVIZU AT 0702 08/12/18 BY NUNO GARCIA 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 For heart valve and shunt patients the range is 2.5 - 3.5. LAB L300.74371 9.5-12.0 SECONDS High 50.4 PTS Performed By: #### L300.53273 #### [facility] [place] [address] PROG.NOTE Observed: 08/11/2018 Status: UNK Source: [facility] 10:27 AM [facility] Patient Name: VENITA SMITH [address] [facility] [address] Date of : [address] [address] Unit Number: [id number] Progress Note-Physician Patient Status: REG RCR Attending Doctor: Colette Sloan DO Service Date: 08/11/18 1027 Subjective S: (2 ROS minimum) Feeling ok, denies fever, no abd pain or n/v. Objective (ROS) Physical Exam Neurological / Psychiatric Alert Respiratory Normal Breathing Effort, Clear Lungs Cardiovascular Heart RRR, No M / R / G Gastrointestinal Non Tender, No Mass Skin No Rash (wound vac over sacrum) Assessment and Plan Conclusion 1. 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 No growth of MRSA. 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 AcB was I to minocycline per [facility] lab, but very limited other options. Discharged to [facility] for planned 6 week course but course has been extended. At [facility], taken for partial flap placement 05/31. Bone cx with ESBL ecoli, CRE klebs, E faecium, diphtheroids. No Acinetobacter seen. Wound worsened. 06/07 changed bactrim to vanc. Both CRE and ESBL still sensitive to tetracycline. Gen surg consulted; CT abd/ pelvis showed fistula. Taken to OR 06/24 for resection and ostomy placement by Dr. Sanon. Sacral wound is overall much improved s/p ostomy and TPN. Has been on vanc, meropenem, and minocycline. Abd midline incision started to have persistent inflammation and draining pus. Wound cx with heavy purulence, cx with VRE and CRE klebs. Developed additional sites of pus able to be expressed from incision. CT showed no deeper abscess. 07/10 stopped vanc and meropenem, started linezolid and vabomere for additional coverage. Continuing minocycline. 07/10 overnight developed septic shock complicated by shock liver; LFTs improving but alk phos remains elevated with slower improved. Abd incision doing well now. Cxs neg except for single bcx with CoNS. Now off pressors. Wbc back to normal. Stop date for abx was 08/04/18; this would be a 6 week course starting from her fistula repair and diverting ostomy placement. Now s/p flap placement by Dr. Antunez on 08/02 without gross purulence seen in OR. Surg cx now with XDR AcB, CRE, and C.albicans. Wound with bloody drainage. Given cx and minimal improvement s/p OR, 08/07 restarted abx with colistin, vabomere, and lesli. Requested micro lab do AcB testing for minocycline and colistin. As she grew the AcB while on lia, doubt this will be an option. Will need close Cr monitoring while on colistin, cr now higher than baseline. Repeat bmp in AM, would consider adding maintenance iv fluids particularly with poor po intake. Will continue to follow. D/w nursing. Disclaimer This dictation was created using voice recognition software. Phonetic and/or minor grammatical errors may exist. eSign Date and Time Syeda Palmer MD Verified/Reviewed by 08/11/18 1029 PT Collected: 08/11/2018 Status: F Source: [facility] 5:29 AM [facility] REPOSITORY Order Comment: [place]: M TYPE CODE TESTS RESULT OUT OF RANGE REFERENCE UNITS LAB L300.50258 0.9-1.1 High INR 3.40 Result Comment: Recommended PT INR therapeutic range for detention and prophylactic therapy is 2.0 - 3.0. For heart valve and shunt patients the range is 2.5 - 3.5. LAB L300.77156 9.5-12.0 SECONDS High 32.9 PTS Performed By: #### L300.31548 #### [facility] [place] [address] BMP Collected: 08/11/2018 Status: F Source: [facility] 5:29 AM [facility] REPOSITORY Order Comment: [place]: M TYPE CODE TESTS RESULT OUT OF RANGE REFERENCE UNITS LAB L500.76902 136-145 MMOL/L Normal NA 140 LAB L500.29744 3.5-5.1 MMOL/L High K 5.7 LAB L500.90384 98-107 MMOL/L Normal CL 106 LAB L500.76970 21-32 MMOL/L Normal CO2 25 LAB L500.01753 5-16 MMOL/L Normal AGAP 10 LAB L500.56092 70-100 MG/DL High GLU 146 Result Comment: 70-100- Normal Fasting; 100-125 Impaired Fasting; greater than 126 on more than one result- Diabetes. ADA guidelines. Results may be falsely elevated after the administration of Sulfapyridine. Results may be falsely depressed after the administration of Sulfasalazine. LAB L500.16154 7-26 MG/DL High BUN 37 LAB L500.18256 0.510-0.950 MG/DL High CREAT 0.951 Result Comment: Patients receiving either N-Acetylcysteine (NAC) or Metamizole prior to venipuncture, may have falsely depressed results. LAB L500.12906 15-24 BUN/CREA High 39 LAB L500.98367 8.5-10.1 MG/DL Low CALCIUM TOTAL 8.2 Performed By: #### L500.27343, L500.99606, L500.85174 #### [facility] [address] [place] [address] GFR EST Collected: 08/11/2018 Status: F Source: [facility] 5:29 AM [facility] REPOSITORY Order Comment: [place]: M TYPE CODE TESTS RESULT OUT OF RANGE REFERENCE UNITS LAB L500.68170 ML/MIN Normal IF non-AFR 58 AMER LAB L500.01283 ML/MIN Normal IF Greater than AMER 60 Performed By: #### L500.81040, L500.74059, L500.66805 #### [facility] [address] [place] [address] LIVER Collected: 08/11/2018 Status: F Source: [facility] 5:29 AM [facility] REPOSITORY Order Comment: [place]: M TYPE CODE TESTS RESULT OUT OF RANGE REFERENCE UNITS LAB L500.52468 6.0-8.5 GM/DL Low TP 5.1 LAB L500.13535 3.2-5.0 GM/DL Low ALBUMIN 1.8 LAB L500.86783 2.2-4.2 GM/DL Normal GLOBULIN 3.3 LAB L500.76424 0.8-2.0 Low A/G RATIO 0.5 LAB L500.24137 0.2-1.0 MG/DL Normal BILI TOTAL 0.2 LAB L500.33967 0.00-0.20 MG/DL Normal BILI DIRECT 0.08 LAB L500.30687 8-34 U/L Normal SGOT (AST) 33 Result Comment: RESULTS MAY BE FALSELY DEPRESSED AFTER THE ADMINISTRATION OF SULFASALAZINE AND/OR SULFAPYRIDINE. LAB L500.57462 13-61 IU/L Normal SGPT (ALT) 42 Result Comment: RESULTS MAY BE FALSELY DEPRESSED AFTER THE ADMINISTRATION OF SULFASALAZINE AND/OR SULFAPYRIDINE. LAB L500.73148 45-117 U/L High ALK PHOS 331 Performed By: #### L500.31103, L500.71198, L500.39953 #### [facility] [address] [place] [address] CBC Collected: 08/10/2018 Status: F Source: [facility] 5:12 AM [facility] REPOSITORY Order Comment: [place]: M TYPE CODE TESTS RESULT OUT OF RANGE REFERENCE UNITS LAB L200.96196 4.5-11.0 K/CU MM Normal WBC 8.3 LAB L200.34247 3.90-5.30 M/CU MM Low RBC 2.49 LAB L200.81275 11.5-15.5 G/DL Low HGB 8.1 LAB L200.63025 35.0-47.0 % Low HCT 25.1 LAB L200.11598 80.0-99.0 fl High MCV 100.8 LAB L200.19679 32.0-36.0 GM/DL Normal MCHC 32.3 LAB L200.13804 11-14.5 High RDW 24.2 LAB L200.42170 9.4-12.4 Low MPV 9.0 LAB L200.84465 150-450 K/CU MM Normal PLT 203 LAB L200.64768 Less than 1 % Normal NRBC 0.5 Performed By: #### L200.71767 #### [facility] [address] [place] [address] PT Collected: 08/10/2018 Status: F Source: [facility] 5:12 AM [facility] REPOSITORY Order Comment: [place]: M TYPE CODE TESTS RESULT OUT OF RANGE REFERENCE UNITS LAB L300.66601 0.9-1.1 High INR 2.65 Result Comment: Recommended PT INR therapeutic range for detention and prophylactic therapy is 2.0 - 3.0. For heart valve and shunt patients the range is 2.5 - 3.5. LAB L300.48792 9.5-12.0 SECONDS High 26.1 PTS Performed By: #### L300.69801 #### [facility] [address] [place] [address] PROG.NOTE Observed: 08/09/2018 Status: UNK Source: [facility] 1:58 PM [facility] REPOSITORY [facility] Patient Name: VENITA SMITH [address] [place] [address] Date of : [address] [address] Unit Number: [id number] Progress Note-Physician Patient Status: REG RCR Attending Doctor: Colette Sloan DO Service Date: 08/09/18 1358 Subjective S: (2 ROS minimum) Resting comfortably, no fever. Objective (ROS) Physical Exam Neurological / Psychiatric NAD Respiratory Normal Breathing Effort, Clear Lungs Cardiovascular tachy Gastrointestinal Non Tender, No Mass Skin wound vac in place Assessment and Plan Conclusion 1. 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 No growth of MRSA. 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 AcB was I to minocycline per [facility] lab, but very limited other options. Discharged to [facility] for planned 6 week course but course has been extended. At [facility], taken for partial flap placement 05/31. Bone cx with ESBL ecoli, CRE klebs, E faecium, diphtheroids. No Acinetobacter seen. Wound worsened. 06/07 changed bactrim to vanc. Both CRE and ESBL still sensitive to tetracycline. Gen surg consulted; CT abd/ pelvis showed fistula. Taken to OR 06/24 for resection and ostomy placement by Dr. Sanon. Sacral wound is overall much improved s/p ostomy and TPN. Has been on vanc, meropenem, and minocycline. Abd midline incision started to have persistent inflammation and draining pus. Wound cx with heavy purulence, cx with VRE and CRE klebs. Developed additional sites of pus able to be expressed from incision. CT showed no deeper abscess. 07/10 stopped vanc and meropenem, started linezolid and vabomere for additional coverage. Continuing minocycline. 07/10 overnight developed septic shock complicated by shock liver; LFTs improving but alk phos remains elevated with slower improved. Abd incision doing well now. Cxs neg except for single bcx with CoNS. Now off pressors. Wbc back to normal. Stop date for abx was 08/04/18; this would be a 6 week course starting from her fistula repair and diverting ostomy placement. Now s/p flap placement by Dr. Antunez on 08/02 without gross purulence seen in OR. Surg cx now with XDR AcB and C.albicans. Wound with bloody drainage. Given cx and minimal improvement s/p OR, 08/07 restarted abx with colistin, vabomere, and lesli. Requested micro lab do AcB testing for minocycline and colistin. As she grew the AcB while on lia, doubt this will be an option. Will need close Cr monitoring while on colistin, so far cr stable Will continue to follow. Disclaimer This dictation was created using voice recognition software. Phonetic and/or minor grammatical errors may exist. eSign Date and Time Syeda Palmer MD Verified/Reviewed by 08/09/18 1359 PT Collected: 08/09/2018 Status: F Source: [facility] 4:03 AM [facility] REPOSITORY Order Comment: [place]: M TYPE CODE TESTS RESULT OUT OF RANGE REFERENCE UNITS LAB L300.79378 0.9-1.1 High INR 1.96 Result Comment: Recommended PT INR therapeutic range for detention and prophylactic therapy is 2.0 - 3.0. For heart valve and shunt patients the range is 2.5 - 3.5. LAB L300.01636 9.5-12.0 SECONDS High 19.8 PTS Performed By: #### L300.54020 #### [facility] [address] [place] [address] CBC W/DIFF Collected: 08/08/2018 Status: F Source: [facility] 4:33 AM [facility] REPOSITORY Order Comment: [place]: M TYPE CODE TESTS RESULT OUT OF RANGE REFERENCE UNITS LAB L200.78795 4.5-11.0 K/CU MM WBC Normal 7.3 LAB L200.14143 3.90-5.30 M/CU MM Low RBC 2.33 LAB L200.82894 11.5-15.5 G/DL Low HGB 7.6 LAB L200.71735 35.0-47.0 % Low HCT 23.3 LAB L200.27419 80.0-99.0 fl High MCV 100.0 LAB L200.93351 32.0-36.0 GM/DL MCHC Normal 32.6 LAB L200.15307 11-14.5 High RDW 22.2 LAB L200.48195 9.4-12.4 Low MPV 9.0 LAB L200.15608 150-450 K/CU MM PLT Normal 166 LAB L200.50130 45-75 % NEUTROPHILS Normal % 67.6 LAB L200.27598 Less than 2 % IMMATURE Normal GRAN % 3.7 LAB L200.57748 20-40 % Low LYMPH % 14.9 LAB L200.88621 2-10 % High MONOCYTE % 12.2 LAB L200.32270 0-5 % EOSINOPHIL Normal % 1.0 LAB L200.65385 0-2 % BASOPHIL % Normal 0.6 LAB L200.60490 2.0-8.3 K/CU MM NEUTROPHIL Normal ABS 4.90 LAB L200.26386 Less than 2 K/CU MM IMMATR GRAN Normal ABS 0.30 LAB L200.04924 0.9-4.4 K/CU MM LYMPH ABS Normal 1.10 LAB L200.80535 0.1-1.1 K/CU MM MONO ABS Normal 0.90 LAB L200.38292 0-0.5 K/CU MM EOS ABS Normal 0.10 LAB L200.33400 0-0.2 K/CU MM BASO ABS Normal 0.00 LAB L200.57075 Less than 1 % NRBC Normal 2.3 Performed By: #### L200.22628 #### [facility] [place] [address] PT Collected: 08/08/2018 Status: F Source: [facility] 4:33 AM [facility] REPOSITORY Order Comment: [place]: M TYPE CODE TESTS RESULT OUT OF RANGE REFERENCE UNITS LAB L300.80792 0.9-1.1 High INR 1.35 Result Comment: Recommended PT INR therapeutic range for detention and prophylactic therapy is 2.0 - 3.0. For heart valve and shunt patients the range is 2.5 - 3.5. LAB L300.11985 9.5-12.0 SECONDS High 14.0 PTS Performed By: #### L300.91298 #### [facility] [address] [place] [address] CMP Collected: 08/08/2018 Status: F Source: [facility] 4:33 AM [facility] REPOSITORY Order Comment: [place]: M TYPE CODE TESTS RESULT OUT OF RANGE REFERENCE UNITS LAB L500.92646 136-145 MMOL/L Normal NA 139 LAB L500.36379 3.5-5.1 MMOL/L High K 5.2 LAB L500.80953 98-107 MMOL/L Normal CL 106 LAB L500.54694 21-32 MMOL/L Normal CO2 27 LAB L500.13801 5-16 MMOL/L Normal AGAP 6 LAB L500.82100 70-100 MG/DL High GLU 198 Result Comment: 70-100- Normal Fasting; 100-125 Impaired Fasting; greater than 126 on more than one result- Diabetes. ADA guidelines. Results may be falsely elevated after the administration of Sulfapyridine. Results may be falsely depressed after the administration of Sulfasalazine. LAB L500.16507 7-26 MG/DL High BUN 28 LAB L500.16648 0.510-0.950 MG/DL Normal CREAT 0.568 Result Comment: Patients receiving either N-Acetylcysteine (NAC) or Metamizole prior to venipuncture, may have falsely depressed results. LAB L500.46955 15-24 High BUN/CREA 48 LAB L500.73440 6.0-8.5 GM/DL Low TP 4.7 LAB L500.16824 3.2-5.0 GM/DL Low ALBUMIN 1.7 LAB L500.03015 2.2-4.2 GM/DL Normal GLOBULIN 3.0 LAB L500.20362 0.8-2.0 Low A/G RATIO 0.6 LAB L500.71388 8.5-10.1 MG/DL Low CALCIUM TOTAL 7.9 LAB L500.92525 0.2-1.0 MG/DL Normal BILI TOTAL 0.2 LAB L500.41309 8-34 U/L Normal SGOT (AST) 22 Result Comment: RESULTS MAY BE FALSELY DEPRESSED AFTER THE ADMINISTRATION OF SULFASALAZINE AND/OR SULFAPYRIDINE. LAB L500.34486 13-61 IU/L Normal SGPT (ALT) 37 Result Comment: RESULTS MAY BE FALSELY DEPRESSED AFTER THE ADMINISTRATION OF SULFASALAZINE AND/OR SULFAPYRIDINE. LAB L500.75108 45-117 U/L High ALK PHOS 339 Performed By: #### L500.90474, L500.77871 #### [facility] [address] [place] [address] GFR EST Collected: 08/08/2018 Status: F Source: [facility] 4:33 AM [facility] REPOSITORY Order Comment: [place]: TYPE CODE TESTS RESULT OUT OF RANGE REFERENCE UNITS LAB L500.47911 ML/MIN Normal IF non-AFR Greater than AMER 60 LAB L500.20916 ML/MIN Normal IF Greater than AMER 60 Performed By: #### L500.32488, L500.35860 #### [facility] [address] [place] [address] PROG.NOTE Observed: 08/07/2018 Status: UNK Source: [facility] 10:08 AM [facility] REPOSITORY [facility] Patient Name: VENITA SMITH [address] [place] [address] Date of : [address] [address] Unit Number: [id number] Progress Note-Physician Patient Status: REG RCR Attending Doctor: Colette Sloan DO Service Date: 08/07/18 1008 Subjective S: (2 ROS minimum) Feeling a little better, no fever, no abd pain or n/v. Objective (ROS) Physical Exam Neurological / Psychiatric Alert Respiratory Normal Breathing Effort, Clear Lungs Cardiovascular tachycardia Gastrointestinal Non Tender, No Mass, ostomy in place Skin reviewed wound photos Assessment and Plan Conclusion 1. 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 No growth of MRSA. 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 AcB was I to minocycline per [facility] lab, but very limited other options. Discharged to [facility] for planned 6 week course but course has been extended. At [facility], taken for partial flap placement 05/31. Bone cx with ESBL ecoli, CRE klebs, E faecium, diphtheroids. No Acinetobacter seen. Wound worsened. 06/07 changed bactrim to vanc. Both CRE and ESBL still sensitive to tetracycline. Gen surg consulted; CT abd/ pelvis showed fistula. Taken to OR 06/24 for resection and ostomy placement by Dr. Sanon. Sacral wound is overall much improved s/p ostomy and TPN. Has been on vanc, meropenem, and minocycline. Abd midline incision started to have persistent inflammation and draining pus. Wound cx with heavy purulence, cx with VRE and CRE klebs. Developed additional sites of pus able to be expressed from incision. CT showed no deeper abscess. 07/10 stopped vanc and meropenem, started linezolid and vabomere for additional coverage. Continuing minocycline. 07/10 overnight developed septic shock complicated by shock liver; LFTs improving but alk phos remains elevated with slower improved. Abd incision doing well now. Cxs neg except for single bcx with CoNS. Now off pressors. Wbc back to normal. Stop date for abx was 08/04/18; this would be a 6 week course starting from her fistula repair and diverting ostomy placement. Now s/p flap placement by Dr. Antunez on 08/02 without gross purulence seen in OR. Surg cx now with XDR AcB and C.albicans. Wound with bloody drainage. Given cx and minimal improvement s/p OR, will restart abx with colistin, vabomere, and lesli. Requested micro lab do AcB testing for minocycline and colistin. As she grew the AcB while on lia, doubt this will be an option. Will need close Cr monitoring while on colistin. Will continue to follow. D/w wound care nurse. Disclaimer This dictation was created using voice recognition software. Phonetic and/or minor grammatical errors may exist. eSign Date and Time Syeda Palmer MD Verified/Reviewed by 08/07/18 1011 PT Collected: 08/07/2018 Status: F Source: [facility] 4:06 AM [facility] REPOSITORY Order Comment: [place]: M TYPE CODE TESTS RESULT OUT OF RANGE REFERENCE UNITS LAB L300.09002 0.9-1.1 High INR 1.18 Result Comment: 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 For heart valve and shunt patients the range is 2.5 - 3.5. LAB L300.53750 9.5-12.0 SECONDS High 12.4 PTS Performed By: #### L300.04633 #### [facility] [address] [place] [address] PT Collected: 08/06/2018 Status: F Source: [facility] 3:56 AM [facility] REPOSITORY Order Comment: [place]: TYPE CODE TESTS RESULT OUT OF RANGE REFERENCE UNITS LAB L300.49181 0.9-1.1 Normal INR 1.08 Result Comment: Recommended PT INR therapeutic range for detention and prophylactic therapy is 2.0 - 3.0. For heart valve and shunt patients the range is 2.5 - 3.5. LAB L300.98438 9.5-12.0 SECONDS Normal PTS 11.4 Performed By: #### L300.24709 #### [facility] [address] [place] [address] PROG.NOTE Observed: 08/05/2018 Status: UNK Source: [facility] 11:09 AM [facility] REPOSITORY [facility] Patient Name: VENITA SMITH [address] [place] [address] Date of : [address] [address] Unit Number: [id number] Progress Note-Physician Patient Status: REG RCR Attending Doctor: Colette Sloan DO Service Date: 08/05/18 1109 Subjective S: (2 ROS minimum) Feeling ok, pain stable, wound vac in place, no fever. Objective (ROS) Physical Exam Neurological / Psychiatric Alert Respiratory Normal Breathing Effort, Clear Lungs Cardiovascular Heart RRR, No M / R / G Gastrointestinal Non Tender, No Mass Skin No Rash Assessment and Plan Conclusion 1. 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 No growth of MRSA. 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 AcB was I to minocycline per [facility], but very limited other options. Discharged to [facility] for planned 6 week course but course has been extended. At [facility], taken for partial flap placement 05/31. Bone cx with ESBL ecoli, CRE klebs, E faecium, diphtheroids. No Acinetobacter seen. Wound worsened. 06/07 changed bactrim to vanc. Both CRE and ESBL still sensitive to tetracycline. Gen surg consulted; CT abd/ pelvis showed fistula. Taken to OR 06/24 for resection and ostomy placement by Dr. Sanon. Sacral wound is overall much improved s/p ostomy and TPN. Has been on vanc, meropenem, and minocycline. Abd midline incision started to have persistent inflammation and draining pus. Wound cx with heavy purulence, cx with VRE and CRE klebs. Developed additional sites of pus able to be expressed from incision. CT showed no deeper abscess. 07/10 stopped vanc and meropenem, started linezolid and vabomere for additional coverage. Continuing minocycline. 07/10 overnight developed septic shock complicated by shock liver; LFTs improving but alk phos remains elevated with slower improved. Abd incision doing well now. Cxs neg except for single bcx with CoNS. Now off pressors. Wbc back to normal. Stop date for abx was 08/04/18; this would be a 6 week course starting from her fistula repair and diverting ostomy placement. Now s/p flap placement by Dr. Antunez on 08/02 without gross purulence seen in OR. Following off of abx. Will continue to follow. D/w wound care nurse. Disclaimer This dictation was created using voice recognition software. Phonetic and/or minor grammatical errors may exist. eSign Date and Time Syeda Palmer MD Verified/Reviewed by 08/05/18 1111 CBC W/DIFF Collected: 08/05/2018 Status: F Source: [facility] 4:55 AM [facility] REPOSITORY Order Comment: [place]: M TYPE CODE TESTS RESULT OUT OF RANGE REFERENCE UNITS LAB L200.16689 4.5-11.0 K/CU MM WBC Normal 6.2 LAB L200.98477 3.90-5.30 M/CU MM Low RBC 2.51 LAB L200.34087 11.5-15.5 G/DL Low HGB 8.0 LAB L200.14109 35.0-47.0 % Low HCT 24.1 LAB L200.60499 80.0-99.0 fl MCV Normal 96.0 LAB L200.48512 32.0-36.0 GM/DL MCHC Normal 33.2 LAB L200.29171 11-14.5 High RDW 20.3 LAB L200.25314 9.4-12.4 Low MPV 8.7 LAB L200.57979 150-450 K/CU MM Low PLT 118 LAB L200.16559 45-75 % NEUTROPHILS Normal % 67.7 LAB L200.26431 Less than 2 % IMMATURE Normal GRAN % 1.0 LAB L200.49473 20-40 % Low LYMPH % 16.8 LAB L200.96282 2-10 % High MONOCYTE % 12.3 LAB L200.46201 0-5 % EOSINOPHIL Normal % 1.9 LAB L200.17780 0-2 % BASOPHIL % Normal 0.3 LAB L200.44886 2.0-8.3 K/CU MM NEUTROPHIL Normal ABS 4.20 LAB L200.61884 Less than 2 K/CU MM IMMATR GRAN Normal ABS 0.10 LAB L200.69900 0.9-4.4 K/CU MM LYMPH ABS Normal 1.00 LAB L200.97465 0.1-1.1 K/CU MM MONO ABS Normal 0.80 LAB L200.65558 0-0.5 K/CU MM EOS ABS Normal 0.10 LAB L200.53290 0-0.2 K/CU MM BASO ABS Normal 0.00 LAB L200.82013 Less than 1 % NRBC Normal 0.0 Performed By: #### L200.69273 #### [facility] [address] [place] [address] PT Collected: 08/05/2018 Status: F Source: [facility] 4:55 AM [facility] REPOSITORY Order Comment: [place]: TYPE CODE TESTS RESULT OUT OF RANGE REFERENCE UNITS LAB L300.18904 0.9-1.1 Normal INR 1.04 Result Comment: 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 For heart valve and shunt patients the range is 2.5 - 3.5. LAB L300.86246 9.5-12.0 SECONDS Normal PTS 11.1 Performed By: #### L300.33091 #### [facility] [address] [place] [address] CMP Collected: 08/05/2018 Status: F Source: [facility] 4:55 AM [facility] REPOSITORY Order Comment: [place]: TYPE CODE TESTS RESULT OUT OF RANGE REFERENCE UNITS LAB L500.31098 136-145 MMOL/L Normal NA 142 LAB L500.53755 3.5-5.1 MMOL/L Normal K 4.8 LAB L500.65722 98-107 MMOL/L Normal CL 107 LAB L500.18465 21-32 MMOL/L Normal CO2 28 LAB L500.13215 5-16 MMOL/L Normal AGAP 7 LAB L500.98466 70-100 MG/DL Low GLU 55 Result Comment: 70-100- Normal Fasting; 100-125 Impaired Fasting; greater than 126 on more than one result- Diabetes. ADA guidelines. Results may be falsely elevated after the administration of Sulfapyridine. Results may be falsely depressed after the administration of Sulfasalazine. LAB L500.51873 7-26 MG/DL High BUN 32 LAB L500.30880 0.510-0.950 MG/DL Low CREAT 0.507 Result Comment: Patients receiving either N-Acetylcysteine (NAC) or Metamizole prior to venipuncture, may have falsely depressed results. LAB L500.66155 15-24 High BUN/CREA 62 LAB L500.92016 6.0-8.5 GM/DL Low TP 4.5 LAB L500.73481 3.2-5.0 GM/DL Low ALBUMIN 1.6 LAB L500.68004 2.2-4.2 GM/DL Normal GLOBULIN 2.9 LAB L500.52340 0.8-2.0 Low A/G RATIO 0.5 LAB L500.51691 8.5-10.1 MG/DL Low CALCIUM TOTAL 7.7 LAB L500.74121 0.2-1.0 MG/DL Normal BILI TOTAL 0.2 LAB L500.94469 8-34 U/L Normal SGOT (AST) 26 Result Comment: RESULTS MAY BE FALSELY DEPRESSED AFTER THE ADMINISTRATION OF SULFASALAZINE AND/OR SULFAPYRIDINE. LAB L500.65128 13-61 IU/L Normal SGPT (ALT) 39 Result Comment: RESULTS MAY BE FALSELY DEPRESSED AFTER THE ADMINISTRATION OF SULFASALAZINE AND/OR SULFAPYRIDINE. LAB L500.69894 45-117 U/L High ALK PHOS 334 Performed By: #### L500.10598, L500.41159, L500.76830, L500.87976, L500.19468 #### [facility] [place] [address] GFR EST Collected: 08/05/2018 Status: F Source: [facility] 4:55 AM [facility] REPOSITORY Order Comment: [place]: M TYPE CODE TESTS RESULT OUT OF RANGE REFERENCE UNITS LAB L500.66816 ML/MIN Normal IF non-AFR Greater than AMER 60 LAB L500.91435 ML/MIN Normal IF Greater than AMER 60 Performed By: #### L500.88452, L500.65923, L500.68841, L500.89642, L500.44045 #### [facility] [address] [place] [address] PHOS Collected: 08/05/2018 Status: F Source: [facility] 4:55 AM [facility] REPOSITORY Order Comment: [place]: M TYPE CODE TESTS RESULT OUT OF RANGE REFERENCE UNITS LAB L500.49015 2.5-4.9 MG/DL Normal PHOS 3.0 Performed By: #### L500.40906, L500.49529, L500.42754, L500.79134, L500.70485 #### [facility] [address] [place] [address] MAGNESIUM Collected: 08/05/2018 Status: F Source: [facility] 4:55 AM [facility] REPOSITORY Order Comment: [place]: M TYPE CODE TESTS RESULT OUT OF RANGE REFERENCE UNITS LAB L500.08558 1.6-2.6 MG/DL Normal MAGNESIUM 2.1 Performed By: #### L500.67688, L500.50108, L500.40312, L500.92861, L500.52687 #### [facility] [address] [place] [address] TRIG Collected: 08/05/2018 Status: F Source: [facility] 4:55 AM [facility] REPOSITORY Order Comment: [place]: M TYPE CODE TESTS RESULT OUT OF RANGE REFERENCE UNITS LAB L500.61733 30-149 MG/DL Normal TRIG 117 Result Comment: Patients receiving either N-Acetylcysteine (NAC) or Metamizole prior to venipuncture, may have falsely depressed results. Performed By: #### L500.93754, L500.38377, L500.36441, L500.41122, L500.38973 #### [facility] [address] [place] [address] PT Collected: 08/04/2018 Status: F Source: [facility] 4:23 AM [facility] REPOSITORY Order Comment: [place]: TYPE CODE TESTS RESULT OUT OF RANGE REFERENCE UNITS LAB L300.31389 0.9-1.1 Normal INR 1.05 Result Comment: 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 For heart valve and shunt patients the range is 2.5 - 3.5. LAB L300.68813 9.5-12.0 SECONDS Normal PTS 11.2 Performed By: #### L300.49518 #### [facility] [address] [place] [address] CBC W/DIFF Collected: 08/03/2018 Status: F Source: [facility] 7:12 AM [facility] REPOSITORY Order Comment: [place]: M TYPE CODE TESTS RESULT OUT OF RANGE REFERENCE UNITS LAB L200.85825 4.5-11.0 K/CU MM WBC Normal 5.5 LAB L200.96496 3.90-5.30 M/CU MM Low RBC 2.55 LAB L200.24891 11.5-15.5 G/DL Low HGB 8.0 LAB L200.87719 35.0-47.0 % Low HCT 24.5 LAB L200.37591 80.0-99.0 fl MCV Normal 96.1 LAB L200.87871 32.0-36.0 GM/DL MCHC Normal 32.7 LAB L200.49343 11-14.5 High RDW 20.9 LAB L200.41927 9.4-12.4 Low MPV 8.2 LAB L200.55557 150-450 K/CU MM Low PLT 125 LAB L200.00695 45-75 % NEUTROPHILS Normal % 68.6 LAB L200.39175 Less than 2 % IMMATURE Normal GRAN % 0.5 LAB L200.34935 20-40 % Low LYMPH % 18.4 LAB L200.31387 2-10 % High MONOCYTE % 10.5 LAB L200.73287 0-5 % EOSINOPHIL Normal % 1.8 LAB L200.10551 0-2 % BASOPHIL % Normal 0.2 LAB L200.32230 2.0-8.3 K/CU MM NEUTROPHIL Normal ABS 3.80 LAB L200.18175 Less than 2 K/CU MM IMMATR GRAN Normal ABS 0.00 LAB L200.77355 0.9-4.4 K/CU MM LYMPH ABS Normal 1.00 LAB L200.41998 0.1-1.1 K/CU MM MONO ABS Normal 0.60 LAB L200.59976 0-0.5 K/CU MM EOS ABS Normal 0.10 LAB L200.77793 0-0.2 K/CU MM BASO ABS Normal 0.00 LAB L200.00504 Less than 1 % NRBC Normal 0.0 Performed By: #### L200.58257 #### [facility] [address] [place] [address] PT Collected: 08/03/2018 Status: F Source: [facility] 7:12 AM [facility] REPOSITORY Order Comment: [place]: TYPE CODE TESTS RESULT OUT OF RANGE REFERENCE UNITS LAB L300.03159 0.9-1.1 Normal INR 1.09 Result Comment: 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 For heart valve and shunt patients the range is 2.5 - 3.5. LAB L300.44035 9.5-12.0 SECONDS Normal PTS 11.7 Performed By: #### L300.10473 #### [facility] [address] [place] [address] CMP Collected: 08/03/2018 Status: F Source: [facility] 5:17 AM [facility] REPOSITORY Order Comment: [place]: M TYPE CODE TESTS RESULT OUT OF RANGE REFERENCE UNITS LAB L500.61070 136-145 MMOL/L Normal NA 140 LAB L500.77694 3.5-5.1 MMOL/L High K 5.2 LAB L500.02660 98-107 MMOL/L High CL 108 LAB L500.53008 21-32 MMOL/L Normal CO2 24 LAB L500.44285 5-16 MMOL/L Normal AGAP 8 LAB L500.61145 70-100 MG/DL High GLU 116 Result Comment: 70-100- Normal Fasting; 100-125 Impaired Fasting; greater than 126 on more than one result- Diabetes. ADA guidelines. Results may be falsely elevated after the administration of Sulfapyridine. Results may be falsely depressed after the administration of Sulfasalazine. LAB L500.62178 7-26 MG/DL High BUN 44 LAB L500.72205 0.510-0.950 MG/DL Low CREAT 0.493 Result Comment: Patients receiving either N-Acetylcysteine (NAC) or Metamizole prior to venipuncture, may have falsely depressed results. LAB L500.27898 15-24 High BUN/CREA 89 LAB L500.44077 6.0-8.5 GM/DL Low TP 4.4 LAB L500.21161 3.2-5.0 GM/DL Low ALBUMIN 1.5 LAB L500.88077 2.2-4.2 GM/DL Normal GLOBULIN 2.9 LAB L500.16797 0.8-2.0 Low A/G RATIO 0.5 LAB L500.52502 8.5-10.1 MG/DL Low CALCIUM TOTAL 7.5 LAB L500.41944 0.2-1.0 MG/DL Normal BILI TOTAL 0.3 LAB L500.29818 8-34 U/L Normal SGOT (AST) 29 Result Comment: RESULTS MAY BE FALSELY DEPRESSED AFTER THE ADMINISTRATION OF SULFASALAZINE AND/OR SULFAPYRIDINE. LAB L500.32732 13-61 IU/L Normal SGPT (ALT) 43 Result Comment: RESULTS MAY BE FALSELY DEPRESSED AFTER THE ADMINISTRATION OF SULFASALAZINE AND/OR SULFAPYRIDINE. LAB L500.48581 45-117 U/L High ALK PHOS 324 Performed By: #### L500.30951, L500.49192 #### [facility] [address] [place] [address] GFR EST Collected: 08/03/2018 Status: F Source: [facility] 5:17 AM [facility] REPOSITORY Order Comment: [place]: M TYPE CODE TESTS RESULT OUT OF RANGE REFERENCE UNITS LAB L500.42422 ML/MIN Normal IF non-AFR Greater than AMER 60 LAB L500.85586 ML/MIN Normal IF Greater than AMER 60 Performed By: #### L500.27497, L500.10016 #### [facility] [address] [place] [address] OR Observed: 08/02/2018 Status: UNK Source: [facility] 1:00 PM [facility] REPOSITORY DATE OF SERVICE: 08/02/2018 PREOPERATIVE DIAGNOSIS: Pressure ulcer sacral area, stage 4. POSTOPERATIVE DIAGNOSIS: Pressure ulcer sacral area, stage 4. OPERATION: 1. Excisional debridement and pulse lavage. 2. Application of an extra-large TheraSkin graft. 3. Application of a wound VAC. SURGEON: Herbert Antunez MD ANESTHESIA: Local with IV sedation. MANAGER SIMULATION: Herbert Antunez MD and Mario Hall ND OPERATIVE FINDING AND INDICATION: The patient has multiple problems. Postoperatively she has been in the hospital since February of this year with multiple pressure ulcers, sacral area, both legs following open heart surgery. She is diabetic with multiple health problems. She first transferred from [facility]. At that time, she had very large open wounds, which included secondary closure on the left leg with application of TheraSkin. She had developed a very large pressure ulcer, which was debrided 1 time and then partially closed. 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 Since the colostomy was performed, the wound started to clean up much better and we treated this sacral area with a few debridements and application of Clorpactin dressings. Wound appeared much alley cleaner and there are some areas where the bone was exposed making it a stage 4 ulcer and measuring about 8 x 10 cm with a depth of about 2 cm with some undermining at the 9 o'clock position for about 3 cm. DESCRIPTION OF PROCEDURE: The patient was brought to the operating room in her own bed, stabilized on the operating table with a beanbag in the left lateral position. The hip and back areas were prepared with Betadine scrub and draped with sterile towels. She was mildly sedated with medications. Xylocaine 1% with epinephrine with 0.5% Marcaine was then infiltrated around the edges and into the base; a total of about 20 mL were used. Once satisfactory anesthesia was obtained, using a sharp curette, all the hyper granulating wound was excised down to the underlying bleeding surfaces. Some of the necrotic slough and tissues were removed. Once the area appeared to be fairly clean, a pulse lavage was carried out to clean up the entire wound. Afterwards, additional debridement was carried out and a second application of pulse lavage was used to clean up the wound. Once the area appeared to be fairly clean, it was partially closed to cover the bone on the sacral area. The rest of the area, which measured about 8 x 10 cm was then covered with an extra-large TheraSkin graft, which was taught in normal saline and then held in place with multiple [facility] PATIENT NAME: VENITA SMITH [address] [place]ner MEDICAL REC #: [id number] [place] [address] ADMIT DATE: DISCHARGE DATE: OPERATIVE REPORT ATTENDING PHY: Herbert Antunez MD precious. Several stabilizing precious were used to keep the graft in position. Satisfactory closure was obtained. Adaptic dressing with a wound VAC was applied to the area and was set at 125 mmHg. ESTIMATED BLOOD LOSS: Estimated blood loss during the procedure was about 20 mL. The patient is now being transferred back to [facility] where she will be followed by her own medications and dressing changes. NARRATION SUMMARY: This is a 67-year-old white female who had undergone an open heart surgery in February of this year, developed multiple medical problems following surgery. Pressure ulcers in the legs as well as heel and sacral area, which had been treated in the past with debridements with secondary closures. The leg wound healed fairly well but the back wounds never closed. The patient had a very large pressure ulcer measuring 10 x 8 cm in size with exposed bone and she was brought to the operating room for secondary closure of the wound. She has been on multiple anticoagulants; her skin is extremely thin and has evidence of areas where she has been ecchymotic all over her body as a result of multiple anticoagulation that she has received. She underwent excisional debridement of the ulcer and application of TheraSkin graft with wound VAC application. She tolerated the procedure well and was kept in the recovery room for some time and later was transferred over to [facility] for further care and treatment. She will be continuing her own medications and dressing changes will be done by the wound nurse in about 4 to 5 days. No complications apparent. General condition improved. Herbert Antunez MD [id number] SSI File#: [id number] Verified/Reviewed by 08/05/18 Abraham LOZANO [facility] PATIENT NAME: VENITA SMITH [facility] Dr. [facility] MEDICAL REC #: [id number] [place] [address] ADMIT DATE: DISCHARGE DATE: OPERATIVE REPORT ATTENDING PHY: Herbert Antunez MD GLUCOSE METER Collected: 08/02/2018 Status: F Source: [facility] 10:29 AM [facility] REPOSITORY TYPE CODE TESTS RESULT OUT OF RANGE REFERENCE UNITS LAB L500.60444 85-125 MG/DL Normal GLUCOSE METER 88 Performed By: #### L500.97191 #### [facility] [address] [place] [address] GLUCOSE METER Collected: 08/02/2018 Status: F Source: [facility] 9:52 AM [facility] REPOSITORY TYPE CODE TESTS RESULT OUT OF REFERENCE UNITS RANGE LAB L500.31471 85-125 MG/DL Low GLUCOSE METER 63 Performed By: #### L500.79143 #### [facility] [address] [place] [address] Observed: 08/02/2018 Status: P Source: [facility] SURG TISSUE 9:21 AM [facility] REPOSITORY Order Comment: [place]: M : SACRAL WOUND RESULTS CALLED TO AND READ BACK BY YOKO WOLFF 6M AT [facility] 08/06/18 BY KIMBERLY DAVIS. THE PATIENT NEEDS TO BE PUT IN ISOLATION RESULTS CALLED TO AND READ BACK BY YOKO WOLFF 6M AT [facility] 08/06/18 BY KIMBERLY DAVIS. THE PATIENT NEEDS TO BE PUT IN ISOLATION RESULTS CALLED TO AND READ BACK BY YOKO WOLFF 6M AT [facility] 08/06/18 BY KIMBERLY DAVIS. THE PATIENT NEEDS TO BE PUT IN ISOLATION RESULTS CALLED TO AND READ BACK BY YOKO WOLFF 6M AT [facility] 08/06/18 BY KIMBERLY DAVIS. THE PATIENT NEEDS TO BE PUT IN ISOLATION THIS BACTERIAL ISOLATE HAS BEEN DETERMINED TO BE A POSSIBLE CRE BY CDC DEFINITION CRE: CARBAPENEN RESISTANT ENTEROBACTERIACEAE REPORT FAXED TO DR. PALMER 08/07/18 1045 BY ASHLYN GRAM STAIN FEW WBC'S NO ORGANISMS SEEN ORGANISM 1: ACINETOBACTER BAUMANNII/HAEMOL QUANTITATION MODERATE ACINETOBACTER BAUMANNII/HAEMOL: REACTION AMIKACIN >32 R AMP/SULBACTAM (UNASYN) >16/8 R CEFEPIME 16 I CEFOTAXIME 32 I CIPROFLOXACIN >4 R GENTAMICIN 8 I TETRACYCLINE >8 R TOBRAMYCIN >8 R TRIMETH/SULFA >2/38 R LEVOFLOXACIN >4 R MEROPENEM >8 R ORGANISM 2: LESLI ALBICANS QUANTITATION RARE ORGANISM 3: KLEBSIELLA PNEUMONIAE QUANTITATION FROM LIQUID MEDIA ONLY CRE POSITIVE KLEBSIELLA PNEUMONIAE: REACTION AMIKACIN 32 I AMPICILLIN >16 R AMP/SULBACTAM (UNASYN) >16/8 R AUGMENTIN (AMOX/K CLVULANATE) >16/8 R CEFAZOLIN >16 R CEFEPIME >16 R CEFOTAXIME >32 R CEFUROXIME >16 R CIPROFLOXACIN >4 R GENTAMICIN <4 S IMIPENEM >8 R ERTAPENEM >4 R PIPERACILLIN/TAZOBACTAM >64 R TETRACYCLINE <4 S TOBRAMYCIN >8 R TRIMETH/SULFA >2/38 R LEVOFLOXACIN >4 R MEROPENEM >8 R MOXIFLOXACIN >4 R Performed By: #### M100.94969, M100.17274 #### [facility] [address] [place] [address] Observed: 08/02/2018 Status: F Source: [facility] CULTURE 9:21 AM [facility] REPOSITORY Order Comment: [place]: M : SACRAL WOUND RESULTS CALLED TO AND READ BACK BY YOKO WOLFF 6M AT [facility] 08/06/18 BY KIMBERLY DAVIS. THE PATIENT NEEDS TO BE PUT IN ISOLATION RESULTS CALLED TO AND READ BACK BY YOKO WOLFF 6M AT [facility] 08/06/18 BY KIMBERLY DAVIS. THE PATIENT NEEDS TO BE PUT IN ISOLATION RESULTS CALLED TO AND READ BACK BY YOKO WOLFF 6M AT [facility] 08/06/18 BY KIMBERLY DAVIS. THE PATIENT NEEDS TO BE PUT IN ISOLATION RESULTS CALLED TO AND READ BACK BY YOKO WOLFF 6M AT [facility] 08/06/18 BY KIMBERLY DAVIS. THE PATIENT NEEDS TO BE PUT IN ISOLATION THIS BACTERIAL ISOLATE HAS BEEN DETERMINED TO BE A POSSIBLE CRE BY CDC DEFINITION CRE: CARBAPENEN RESISTANT ENTEROBACTERIACEAE REPORT FAXED TO DR. PALMER 08/07/18 1045 BY ASHLYN RESULT NO GROWTH OF ANAEROBES Performed By: #### M100.47045, M100.89936 #### [facility] [address] [place] [address] GLUCOSE METER Collected: 08/02/2018 Status: F Source: [facility] 9:12 AM [facility] REPOSITORY TYPE CODE TESTS RESULT OUT OF REFERENCE UNITS RANGE LAB L500.59096 85-125 MG/DL Low GLUCOSE METER 52 Performed By: #### L500.11515 #### [facility] [address] [place] [address] GLUCOSE METER Collected: 08/02/2018 Status: F Source: [facility] 7:01 AM [facility] REPOSITORY TYPE CODE TESTS RESULT OUT OF RANGE REFERENCE UNITS LAB L500.18387 85-125 MG/DL Normal GLUCOSE METER 85 Performed By: #### L500.87329 #### [facility] [place] [address] PT Collected: 08/02/2018 Status: F Source: [facility] 4:05 AM [facility] REPOSITORY Order Comment: [place]: M TYPE CODE TESTS RESULT OUT OF RANGE REFERENCE UNITS LAB L300.46677 0.9-1.1 High INR 1.36 Result Comment: 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 For heart valve and shunt patients the range is 2.5 - 3.5. LAB L300.66864 9.5-12.0 SECONDS High 14.6 PTS Performed By: #### L300.74913 #### [facility] [address] [place] [address] ZINC Collected: 08/02/2018 Status: F Source: [facility] 4:05 AM [facility] REPOSITORY Order Comment: [place]: M TYPE CODE TESTS RESULT OUT OF RANGE REFERENCE UNITS LAB L550.91270 56-134 ug/dL Low ZINC 49 Result Comment: Detection Limit = 5 Performed At: [facility] [address] [id number] Nehemiah Tang [place] [id number] Performed By: #### L550.62489 #### [facility] [address] [id number] CBC W/DIFF Collected: 08/01/2018 Status: F Source: [facility] 4:30 AM [facility] [place] REPOSITORY Order Comment: [place]: M TYPE CODE TESTS RESULT OUT OF RANGE REFERENCE UNITS LAB L200.52476 4.5-11.0 K/CU MM WBC Normal 6.3 LAB L200.95348 3.90-5.30 M/CU MM Low RBC 2.91 LAB L200.23063 11.5-15.5 G/DL Low HGB 9.0 LAB L200.12409 35.0-47.0 % Low HCT 28.7 LAB L200.56180 80.0-99.0 fl MCV Normal 98.6 LAB L200.23113 32.0-36.0 GM/DL Low MCHC 31.4 LAB L200.70840 11-14.5 High RDW 21.4 LAB L200.29556 9.4-12.4 Low MPV 8.5 LAB L200.02727 150-450 K/CU MM PLT Normal 151 LAB L200.11734 45-75 % NEUTROPHILS Normal % 70.5 LAB L200.01694 Less than 2 % IMMATURE Normal GRAN % 0.3 LAB L200.65187 20-40 % Low LYMPH % 18.8 LAB L200.50504 2-10 % MONOCYTE % Normal 8.4 LAB L200.16993 0-5 % EOSINOPHIL Normal % 1.7 LAB L200.79574 0-2 % BASOPHIL % Normal 0.3 LAB L200.04774 2.0-8.3 K/CU MM NEUTROPHIL Normal ABS 4.50 LAB L200.88762 Less than 2 K/CU MM IMMATR GRAN Normal ABS 0.00 LAB L200.32241 0.9-4.4 K/CU MM LYMPH ABS Normal 1.20 LAB L200.87330 0.1-1.1 K/CU MM MONO ABS Normal 0.50 LAB L200.38927 0-0.5 K/CU MM EOS ABS Normal 0.10 LAB L200.72150 0-0.2 K/CU MM BASO ABS Normal 0.00 LAB L200.15492 Less than 1 % NRBC Normal 0.0 Performed By: #### L200.52533 #### [facility] [place] [address] PT Collected: 08/01/2018 Status: F Source: [facility] 4:30 AM [facility] REPOSITORY Order Comment: [place]: TYPE CODE TESTS RESULT OUT OF RANGE REFERENCE UNITS LAB L300.03843 0.9-1.1 High INR 1.43 Result Comment: Recommended PT INR therapeutic range for detention and prophylactic therapy is 2.0 - 3.0. For heart valve and shunt patients the range is 2.5 - 3.5. LAB L300.49869 9.5-12.0 SECONDS High 15.3 PTS Performed By: #### L300.02735 #### [facility] [address] [place] [address] CMP Collected: 08/01/2018 Status: F Source: [facility] 4:30 AM [facility] REPOSITORY Order Comment: [place]: TYPE CODE TESTS RESULT OUT OF RANGE REFERENCE UNITS LAB L500.31444 136-145 MMOL/L Normal NA 141 LAB L500.89172 3.5-5.1 MMOL/L High K 5.2 LAB L500.43738 98-107 MMOL/L Normal CL 105 LAB L500.13320 21-32 MMOL/L Normal CO2 29 LAB L500.12074 5-16 MMOL/L Normal AGAP 6 LAB L500.21686 70-100 MG/DL Low GLU 63 Result Comment: 70-100- Normal Fasting; 100-125 Impaired Fasting; greater than 126 on more than one result- Diabetes. ADA guidelines. Results may be falsely elevated after the administration of Sulfapyridine. Results may be falsely depressed after the administration of Sulfasalazine. LAB L500.02198 7-26 MG/DL High BUN 54 LAB L500.58256 0.510-0.950 MG/DL Normal CREAT 0.537 Result Comment: Patients receiving either N-Acetylcysteine (NAC) or Metamizole prior to venipuncture, may have falsely depressed results. LAB L500.30135 15-24 High BUN/CREA 101 LAB L500.85969 6.0-8.5 GM/DL Low TP 4.8 LAB L500.24563 3.2-5.0 GM/DL Low ALBUMIN 1.7 LAB L500.57214 2.2-4.2 GM/DL Normal GLOBULIN 3.1 LAB L500.38520 0.8-2.0 Low A/G RATIO 0.5 LAB L500.56534 8.5-10.1 MG/DL Low CALCIUM TOTAL 8.1 LAB L500.82717 0.2-1.0 MG/DL Normal BILI TOTAL 0.3 LAB L500.80981 8-34 U/L High SGOT (AST) 36 Result Comment: RESULTS MAY BE FALSELY DEPRESSED AFTER THE ADMINISTRATION OF SULFASALAZINE AND/OR SULFAPYRIDINE. LAB L500.31319 13-61 IU/L Normal SGPT (ALT) 59 Result Comment: RESULTS MAY BE FALSELY DEPRESSED AFTER THE ADMINISTRATION OF SULFASALAZINE AND/OR SULFAPYRIDINE. LAB L500.93048 45-117 U/L High ALK PHOS 383 Performed By: #### L500.82429, L500.55182, L500.75078, L500.95339 #### [facility] [address] [place] [address] GFR EST Collected: 08/01/2018 Status: F Source: [facility] 4:30 AM [facility] REPOSITORY Order Comment: [place]: M TYPE CODE TESTS RESULT OUT OF RANGE REFERENCE UNITS LAB L500.73156 ML/MIN Normal IF non-AFR Greater than AMER 60 LAB L500.12582 ML/MIN Normal IF Greater than AMER 60 Performed By: #### L500.32972, L500.44364, L500.43869, L500.73474 #### [facility] [address] [place] [address] PHOS Collected: 08/01/2018 Status: F Source: [facility] 4:30 AM [facility] REPOSITORY Order Comment: [place]: M TYPE CODE TESTS RESULT OUT OF RANGE REFERENCE UNITS LAB L500.65239 2.5-4.9 MG/DL Normal PHOS 2.8 Performed By: #### L500.69154, L500.71719, L500.71743, L500.03616 #### [facility] [address] [place] [address] MAGNESIUM Collected: 08/01/2018 Status: F Source: [facility] 4:30 AM [facility] REPOSITORY Order Comment: [place]: M TYPE CODE TESTS RESULT OUT OF RANGE REFERENCE UNITS LAB L500.52121 1.6-2.6 MG/DL Normal MAGNESIUM 2.2 Performed By: #### L500.46947, L500.44155, L500.73865, L500.80693 #### [facility] [address] [place] [address] PROG.NOTE Observed: 07/31/2018 Status: UNK Source: [facility] 9:24 AM [facility] [place] REPOSITORY [facility] Patient Name: VENITA SMITH [address] Date of : 48 [address] Unit Number: [id number] Progress Note-Physician Patient Status: REG RCR Attending Doctor: Colette Sloan DO Service Date: 07/31/18923 Subjective S: (2 ROS minimum) Feeling ok, surgery planned for Sunday. No fever, no abd pain. Objective (ROS) Physical Exam Neurological / Psychiatric Alert Respiratory Normal Breathing Effort, Clear Lungs Cardiovascular Heart RRR, No M / R / G Gastrointestinal Non Tender, No Mass Skin No Rash Assessment and Plan Conclusion 1. 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 No growth of MRSA. 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 AcB was I to minocycline per [facility] micro lab, but very limited other options. Discharged to [facility] for planned 6 week course but course has been extended. At [facility], taken for partial flap placement 05/31. Bone cx with ESBL ecoli, CRE klebs, E faecium, diphtheroids. No Acinetobacter seen. Wound worsened. 06/07 changed bactrim to vanc. Both CRE and ESBL still sensitive to tetracycline. Gen surg consulted; CT abd/ pelvis showed fistula. Taken to OR 06/24 for resection and ostomy placement by Dr. Sanon. Sacral wound is overall much improved s/p ostomy and TPN. Has been on vanc, meropenem, and minocycline. Abd midline incision started to have persistent inflammation and draining pus. Wound cx with heavy purulence, cx with VRE and CRE klebs. Developed additional sites of pus able to be expressed from incision. CT showed no deeper abscess. 07/10 stopped vanc and meropenem, started linezolid and vabomere for additional coverage. Continuing minocycline. 07/10 overnight developed septic shock complicated by shock liver; LFTs improving but alk phos remains elevated with slower improved. Abd incision doing well now. Cxs neg except for single bcx with CoNS. Now off pressors. Wbc back to normal. Tentative stop date for abx will be 08/04/18; this would be a 6 week course starting from her fistula repair and diverting ostomy placement. May not be able to tolerate linezolid for that long, will monitor platelets which may be starting to trend down. Any coverage that can be done of her sacral ulcer may help prevent recurrence after discharge; planned for Sunday. Will continue to follow. D/w wound care nurse. Disclaimer This dictation was created using voice recognition software. Phonetic and/or minor grammatical errors may exist. eSign Date and Time Syeda Palmer MD Verified/Reviewed by 07/31/18 0925 PT Collected: 07/31/2018 Status: F Source: [facility] 4:30 AM [facility] REPOSITORY Order Comment: [place]: M TYPE CODE TESTS RESULT OUT OF RANGE REFERENCE UNITS LAB L300.08845 0.9-1.1 High INR 1.80 Result Comment: 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 For heart valve and shunt patients the range is 2.5 - 3.5. LAB L300.47151 9.5-12.0 SECONDS High 19.3 PTS Performed By: #### L300.77081 #### [facility] [address] [place] [address] PT Collected: 07/30/2018 Status: F Source: [facility] 4:14 AM [facility] REPOSITORY Order Comment: [place]: M TYPE CODE TESTS RESULT OUT OF RANGE REFERENCE UNITS LAB L300.16102 0.9-1.1 High INR 2.32 Result Comment: 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 For heart valve and shunt patients the range is 2.5 - 3.5. LAB L300.74176 9.5-12.0 SECONDS High 24.8 PTS Performed By: #### L300.93932 #### [facility] [address] [place] [address] PROG.NOTE Observed: 07/29/2018 Status: UNK Source: [facility] 9:50 AM [facility] REPOSITORY [facility] Patient Name: VENITA SMITH [address] [place] [address] Date of : [address] [place] [id number] Unit Number: [id number] Progress Note-Physician Patient Status: REG RCR Attending Doctor: Colette Sloan DO Service Date: 07/29/18 0950 Subjective S: (2 ROS minimum) Feeling well, no fever, no abd pain. Objective (ROS) Physical Exam Neurological / Psychiatric Alert Respiratory Normal Breathing Effort, Clear Lungs Cardiovascular Heart RRR, No M / R / G Gastrointestinal Non Tender, No Mass, ostomy in place Skin No Rash, decub ulcer bandaged Assessment and Plan Conclusion 1. 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 No growth of MRSA. 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 AcB was I to minocycline per [facility] lab, but very limited other options. Discharged to [facility] for planned 6 week course but course has been extended. At [facility], taken for partial flap placement 05/31. Bone cx with ESBL ecoli, CRE klebs, E faecium, diphtheroids. No Acinetobacter seen. Wound worsened. 06/07 changed bactrim to vanc. Both CRE and ESBL still sensitive to tetracycline. Gen surg consulted; CT abd/ pelvis showed fistula. Taken to OR 06/24 for resection and ostomy placement by Dr. Sanon. Sacral wound is overall much improved s/p ostomy and TPN. Has been on vanc, meropenem, and minocycline. Abd midline incision started to have persistent inflammation and draining pus. Wound cx with heavy purulence, cx with VRE and CRE klebs. Developed additional sites of pus able to be expressed from incision. CT showed no deeper abscess. 07/10 stopped vanc and meropenem, started linezolid and vabomere for additional coverage. Continuing minocycline. 07/10 overnight developed septic shock complicated by shock liver; LFTs improving but alk phos remains elevated with slower improved. Abd incision doing well now. Cxs neg except for single bcx with CoNS. Now off pressors. Wbc back to normal. Tentative stop date for abx will be 08/04/18; this would be a 6 week course starting from her fistula repair and diverting ostomy placement. May not be able to tolerate linezolid for that long, will monitor platelets which may be starting to trend down. Any coverage that can be done of her sacral ulcer may help prevent recurrence after discharge. Will continue to follow. D/w wound care nurse. Disclaimer This dictation was created using voice recognition software. Phonetic and/or minor grammatical errors may exist. eSign Date and Time Syeda Palmer MD Verified/Reviewed by 07/29/18 0951 CBC W/DIFF Collected: 07/29/2018 Status: F Source: [facility] 4:21 AM [facility] REPOSITORY Order Comment: [place]: TYPE CODE TESTS RESULT OUT OF RANGE REFERENCE UNITS LAB L200.26652 4.5-11.0 K/CU MM WBC Normal 5.2 LAB L200.14311 3.90-5.30 M/CU MM Low RBC 2.88 LAB L200.01487 11.5-15.5 G/DL Low HGB 8.9 LAB L200.11613 35.0-47.0 % Low HCT 27.8 LAB L200.31804 80.0-99.0 fl MCV Normal 96.5 LAB L200.15336 32.0-36.0 GM/DL MCHC Normal 32.0 LAB L200.88475 11-14.5 High RDW 20.7 LAB L200.04440 9.4-12.4 Low MPV 8.7 LAB L200.70496 150-450 K/CU MM PLT Normal 160 LAB L200.15299 45-75 % NEUTROPHILS Normal % 62.4 LAB L200.58015 Less than 2 % IMMATURE Normal GRAN % 0.4 LAB L200.33303 20-40 % LYMPH % Normal 23.1 LAB L200.35911 2-10 % High MONOCYTE % 11.4 LAB L200.38288 0-5 % EOSINOPHIL Normal % 2.3 LAB L200.55037 0-2 % BASOPHIL % Normal 0.4 LAB L200.38727 2.0-8.3 K/CU MM NEUTROPHIL Normal ABS 3.20 LAB L200.58253 Less than 2 K/CU MM IMMATR GRAN Normal ABS 0.00 LAB L200.23211 0.9-4.4 K/CU MM LYMPH ABS Normal 1.20 LAB L200.54995 0.1-1.1 K/CU MM MONO ABS Normal 0.60 LAB L200.92525 0-0.5 K/CU MM EOS ABS Normal 0.10 LAB L200.78814 0-0.2 K/CU MM BASO ABS Normal 0.00 LAB L200.06753 Less than 1 % NRBC Normal 0.0 Performed By: #### L200.94637 #### [facility] [address] [place] [address] PT Collected: 07/29/2018 Status: F Source: [facility] 4:21 AM [facility] REPOSITORY Order Comment: [place]: M TYPE CODE TESTS RESULT OUT OF RANGE REFERENCE UNITS LAB L300.07536 0.9-1.1 High INR 2.51 Result Comment: 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 For heart valve and shunt patients the range is 2.5 - 3.5. LAB L300.98293 9.5-12.0 SECONDS High 26.9 PTS Performed By: #### L300.92645 #### [facility] [address] [place] [address] CMP Collected: 07/29/2018 Status: F Source: [facility] 4:21 AM [facility] REPOSITORY Order Comment: [place]: M TYPE CODE TESTS RESULT OUT OF RANGE REFERENCE UNITS LAB L500.86949 136-145 MMOL/L Normal NA 140 LAB L500.74675 3.5-5.1 MMOL/L High K 5.3 LAB L500.72501 98-107 MMOL/L Normal CL 107 LAB L500.57717 21-32 MMOL/L Normal CO2 26 LAB L500.24986 5-16 MMOL/L Normal AGAP 7 LAB L500.20179 70-100 MG/DL High GLU 154 Result Comment: 70-100- Normal Fasting; 100-125 Impaired Fasting; greater than 126 on more than one result- Diabetes. ADA guidelines. Results may be falsely elevated after the administration of Sulfapyridine. Results may be falsely depressed after the administration of Sulfasalazine. LAB L500.15009 7-26 MG/DL High BUN 44 LAB L500.14623 0.510-0.950 MG/DL Normal CREAT 0.519 Result Comment: Patients receiving either N-Acetylcysteine (NAC) or Metamizole prior to venipuncture, may have falsely depressed results. LAB L500.00510 15-24 High BUN/CREA 85 LAB L500.13103 6.0-8.5 GM/DL Low TP 4.7 LAB L500.07930 3.2-5.0 GM/DL Low ALBUMIN 1.6 LAB L500.10481 2.2-4.2 GM/DL Normal GLOBULIN 3.1 LAB L500.78027 0.8-2.0 Low A/G RATIO 0.5 LAB L500.97540 8.5-10.1 MG/DL Low CALCIUM TOTAL 7.8 LAB L500.66520 0.2-1.0 MG/DL Normal BILI TOTAL 0.2 LAB L500.68053 8-34 U/L High SGOT (AST) 51 Result Comment: RESULTS MAY BE FALSELY DEPRESSED AFTER THE ADMINISTRATION OF SULFASALAZINE AND/OR SULFAPYRIDINE. LAB L500.99323 13-61 IU/L High SGPT (ALT) 74 Result Comment: RESULTS MAY BE FALSELY DEPRESSED AFTER THE ADMINISTRATION OF SULFASALAZINE AND/OR SULFAPYRIDINE. LAB L500.69657 45-117 U/L High ALK PHOS 388 Performed By: #### L500.33414, L500.55317, L500.13026, L500.52513, L500.74316 #### [facility] [address] [place] [address] GFR EST Collected: 07/29/2018 Status: F Source: [facility] 4:21 AM [facility] REPOSITORY Order Comment: [place]: M TYPE CODE TESTS RESULT OUT OF RANGE REFERENCE UNITS LAB L500.09799 ML/MIN Normal IF non-AFR Greater than AMER 60 LAB L500.41908 ML/MIN Normal IF Greater than AMER 60 Performed By: #### L500.32774, L500.04554, L500.74992, L500.09455, L500.05245 #### [facility] [address] [place], [place] [id number] PHOS Collected: 07/29/2018 Status: F Source: [facility] 4:21 AM [facility] REPOSITORY Order Comment: [place]: M TYPE CODE TESTS RESULT OUT OF RANGE REFERENCE UNITS LAB L500.04446 2.5-4.9 MG/DL Normal PHOS 2.5 Performed By: #### L500.37742, L500.68467, L500.34252, L500.79250, L500.49240 #### [facility] [address] [place] [address] MAGNESIUM Collected: 07/29/2018 Status: F Source: [facility] 4:21 AM [facility] REPOSITORY Order Comment: [place]: M TYPE CODE TESTS RESULT OUT OF RANGE REFERENCE UNITS LAB L500.67340 1.6-2.6 MG/DL Normal MAGNESIUM 2.0 Performed By: #### L500.39781, L500.77517, L500.05001, L500.59245, L500.85355 #### [facility] [address] [place] [address] TRIG Collected: 07/29/2018 Status: F Source: [facility] 4:21 AM [facility] REPOSITORY Order Comment: [place]: M TYPE CODE TESTS RESULT OUT OF RANGE REFERENCE UNITS LAB L500.45670 30-149 MG/DL High TRIG 214 Result Comment: Patients receiving either N-Acetylcysteine (NAC) or Metamizole prior to venipuncture, may have falsely depressed results. Performed By: #### L500.46385, L500.68500, L500.43341, L500.91530, L500.25704 #### [facility] [address] [place] [address] CBC W/DIFF Collected: 07/27/2018 Status: F Source: [facility] 6:39 AM [facility] REPOSITORY Order Comment: [place]: M TYPE CODE TESTS RESULT OUT OF RANGE REFERENCE UNITS LAB L200.57087 4.5-11.0 K/CU MM WBC Normal 6.9 LAB L200.52032 3.90-5.30 M/CU MM Low RBC 3.42 LAB L200.35908 11.5-15.5 G/DL Low HGB 10.5 LAB L200.53693 35.0-47.0 % Low HCT 33.1 LAB L200.08631 80.0-99.0 fl MCV Normal 96.8 LAB L200.55299 32.0-36.0 GM/DL Low MCHC 31.7 LAB L200.66983 11-14.5 High RDW 21.1 LAB L200.97976 9.4-12.4 Low MPV 8.5 LAB L200.35849 150-450 K/CU MM PLT Normal 210 LAB L200.64498 45-75 % NEUTROPHILS Normal % 65.2 LAB L200.78045 Less than 2 % IMMATURE Normal GRAN % 0.6 LAB L200.93271 20-40 % LYMPH % Normal 20.4 LAB L200.49718 2-10 % High MONOCYTE % 10.9 LAB L200.96894 0-5 % EOSINOPHIL Normal % 2.5 LAB L200.36149 0-2 % BASOPHIL % Normal 0.4 LAB L200.91259 2.0-8.3 K/CU MM NEUTROPHIL Normal ABS 4.50 LAB L200.02740 Less than 2 K/CU MM IMMATR GRAN Normal ABS 0.00 LAB L200.98632 0.9-4.4 K/CU MM LYMPH ABS Normal 1.40 LAB L200.87626 0.1-1.1 K/CU MM MONO ABS Normal 0.80 LAB L200.82778 0-0.5 K/CU MM EOS ABS Normal 0.20 LAB L200.25743 0-0.2 K/CU MM BASO ABS Normal 0.00 LAB L200.11393 Less than 1 % NRBC Normal 0.0 Performed By: #### L200.76702 #### [facility] [address] [place] [address] PT Collected: 07/27/2018 Status: F Source: [facility] 6:39 AM [facility] REPOSITORY Order Comment: [place]: M TYPE CODE TESTS RESULT OUT OF RANGE REFERENCE UNITS LAB L300.59595 0.9-1.1 High INR 3.38 Result Comment: Recommended PT INR therapeutic range for detention and prophylactic therapy is 2.0 - 3.0. For heart valve and shunt patients the range is 2.5 - 3.5. LAB L300.40509 9.5-12.0 SECONDS High 36.2 PTS Performed By: #### L300.66279 #### [facility] [address] [place] [address] CMP Collected: 07/27/2018 Status: F Source: [facility] 6:39 AM [facility] REPOSITORY Order Comment: [place]: M TYPE CODE TESTS RESULT OUT OF RANGE REFERENCE UNITS LAB L500.85277 136-145 MMOL/L Normal NA 140 LAB L500.77605 3.5-5.1 MMOL/L Normal K 5.0 LAB L500.22462 98-107 MMOL/L Normal CL 106 LAB L500.78222 21-32 MMOL/L Normal CO2 25 LAB L500.51898 5-16 MMOL/L Normal AGAP 9 LAB L500.09805 70-100 MG/DL Low alert GLU 47 Result Comment: Critical Result(s) Called at: 07:39:42 on 07/27/2018 by: josafat Padron to and read back by: RENARD SHAH RN 70-100- Normal Fasting; 100-125 Impaired Fasting; greater than 126 on more than one result- Diabetes. ADA guidelines. Results may be falsely elevated after the administration of Sulfapyridine. Results may be falsely depressed after the administration of Sulfasalazine. LAB L500.30213 7-26 MG/DL High BUN 37 LAB L500.07158 0.510-0.950 MG/DL Normal CREAT 0.548 Result Comment: Patients receiving either N-Acetylcysteine (NAC) or Metamizole prior to venipuncture, may have falsely depressed results. LAB L500.15167 15-24 High BUN/CREA 68 LAB L500.31482 6.0-8.5 GM/DL Low TP 5.4 LAB L500.61161 3.2-5.0 GM/DL Low ALBUMIN 1.9 LAB L500.39160 2.2-4.2 GM/DL Normal GLOBULIN 3.5 LAB L500.67488 0.8-2.0 Low A/G RATIO 0.5 LAB L500.55225 8.5-10.1 MG/DL Low CALCIUM TOTAL 8.4 LAB L500.33882 0.2-1.0 MG/DL Normal BILI TOTAL 0.4 LAB L500.16340 8-34 U/L High SGOT (AST) 39 Result Comment: RESULTS MAY BE FALSELY DEPRESSED AFTER THE ADMINISTRATION OF SULFASALAZINE AND/OR SULFAPYRIDINE. LAB L500.36788 13-61 IU/L High SGPT (ALT) 68 Result Comment: RESULTS MAY BE FALSELY DEPRESSED AFTER THE ADMINISTRATION OF SULFASALAZINE AND/OR SULFAPYRIDINE. LAB L500.53488 45-117 U/L High ALK PHOS 456 Performed By: #### L500.80622, L500.90380 #### [facility] [address] [place] [address] GFR EST Collected: 07/27/2018 Status: F Source: [facility] 6:39 AM [facility] REPOSITORY Order Comment: [place]: M TYPE CODE TESTS RESULT OUT OF RANGE REFERENCE UNITS LAB L500.91919 ML/MIN Normal IF non-AFR Greater than AMER 60 LAB L500.00385 ML/MIN Normal IF Greater than AMER 60 Performed By: #### L500.75195, L500.23340 #### [facility] [address] [place] [address] K Collected: 07/26/2018 Status: F Source: [facility] 10:25 AM [facility] REPOSITORY Order Comment: [place]: M TYPE CODE TESTS RESULT OUT OF RANGE REFERENCE UNITS LAB L500.83515 3.5-5.1 MMOL/L High K 5.2 Result Comment: Slight Hemolysis, Result may be falsely increased. Performed By: #### L500.39981 #### [facility] [address] [place] [address] PT Collected: 07/26/2018 Status: F Source: [facility] 4:16 AM [facility] REPOSITORY Order Comment: [place]: M TYPE CODE TESTS RESULT OUT OF RANGE REFERENCE UNITS LAB L300.12352 0.9-1.1 High INR 2.50 Result Comment: 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 For heart valve and shunt patients the range is 2.5 - 3.5. LAB L300.88079 9.5-12.0 SECONDS High 26.8 PTS Performed By: #### L300.65827 #### [facility] [address] [place] [address] PROG.NOTE Observed: 07/25/2018 Status: UNK Source: [facility] 4:59 PM [facility] [place] REPOSITORY [facility] Patient Name: VENITA SMITH [facility] Date of : [address] [address] Unit Number: [id number] Progress Note-Physician Patient Status: REG RCR Attending Doctor: Colette Sloan DO Service Date: 07/25/18 7895 Subjective S: (2 ROS minimum) Feeling well no abd pain, no n/v/d. Objective (ROS) Physical Exam Neurological / Psychiatric Alert Respiratory Normal Breathing Effort, Clear Lungs Cardiovascular tachy Gastrointestinal Non Tender, No Mass Skin abd incision dry and no swelling. Ostomy in place. Assessment and Plan Conclusion 1. 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 No growth of MRSA. 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 AcB was I to minocycline per [facility] micro lab, but very limited other options. Discharged to [facility] for planned 6 week course but course has been extended. At [facility], taken for partial flap placement 05/31. Bone cx with ESBL ecoli, CRE klebs, E faecium, diphtheroids. No Acinetobacter seen. Wound worsened. 06/07 changed bactrim to vanc. Both CRE and ESBL still sensitive to tetracycline. Gen surg consulted; CT abd/ pelvis showed fistula. Taken to OR 06/24 for resection and ostomy placement by Dr. Sanon. Sacral wound is overall much improved s/p ostomy and TPN. Has been on vanc, meropenem, and minocycline. Abd midline incision started to have persistent inflammation and draining pus. Wound cx with heavy purulence, cx with VRE and CRE klebs. Developed additional sites of pus able to be expressed from incision. CT showed no deeper abscess. 07/10 stopped vanc and meropenem, started linezolid and vabomere for additional coverage. Continuing minocycline. 07/10 overnight developed septic shock complicated by shock liver; LFTs improving but alk phos remains elevated with slower improved. Abd incision doing well now. Cxs neg except for single bcx with CoNS. Now off pressors. Wbc back to normal. Tentative stop date for abx will be 08/05/18; this would be a 6 week course starting from her fistula repair and diverting ostomy placement. May not be able to tolerate linezolid for that long, will monitor platelets which may be starting to trend down. Any coverage that can be done of her sacral ulcer may help prevent recurrence after discharge. Will continue to follow. Disclaimer This dictation was created using voice recognition software. Phonetic and/or minor grammatical errors may exist. eSign Date and Time Syeda Palmer MD Verified/Reviewed by 07/25/18 1701 CBC W/DIFF Collected: 07/25/2018 Status: F Source: [facility] 4:41 AM [facility] REPOSITORY Order Comment: [place]: TYPE CODE TESTS RESULT OUT OF RANGE REFERENCE UNITS LAB L200.42369 4.5-11.0 K/CU MM WBC Normal 5.1 LAB L200.80343 3.90-5.30 M/CU MM Low RBC 3.08 LAB L200.97700 11.5-15.5 G/DL Low HGB 9.5 LAB L200.12287 35.0-47.0 % Low HCT 29.3 LAB L200.49790 80.0-99.0 fl MCV Normal 95.1 LAB L200.08569 32.0-36.0 GM/DL MCHC Normal 32.4 LAB L200.60351 11-14.5 High RDW 19.4 LAB L200.70334 9.4-12.4 Low MPV 8.8 LAB L200.23232 150-450 K/CU MM PLT Normal 166 LAB L200.96416 45-75 % NEUTROPHILS Normal % 61.4 LAB L200.80753 Less than 2 % IMMATURE Normal GRAN % 0.8 LAB L200.24724 20-40 % LYMPH % Normal 23.0 LAB L200.50730 2-10 % High MONOCYTE % 12.5 LAB L200.90236 0-5 % EOSINOPHIL Normal % 2.1 LAB L200.42396 0-2 % BASOPHIL % Normal 0.2 LAB L200.21138 2.0-8.3 K/CU MM NEUTROPHIL Normal ABS 3.20 LAB L200.46202 Less than 2 K/CU MM IMMATR GRAN Normal ABS 0.00 LAB L200.32585 0.9-4.4 K/CU MM LYMPH ABS Normal 1.20 LAB L200.71945 0.1-1.1 K/CU MM MONO ABS Normal 0.60 LAB L200.82899 0-0.5 K/CU MM EOS ABS Normal 0.10 LAB L200.64647 0-0.2 K/CU MM BASO ABS Normal 0.00 LAB L200.46470 Less than 1 % NRBC Normal 0.0 Performed By: #### L200.11706 #### [facility] [address] [place] [address] PT Collected: 07/25/2018 Status: F Source: [facility] 4:41 AM [facility] REPOSITORY Order Comment: [place]: M TYPE CODE TESTS RESULT OUT OF RANGE REFERENCE UNITS LAB L300.97819 0.9-1.1 High INR 2.33 Result Comment: 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 For heart valve and shunt patients the range is 2.5 - 3.5. LAB L300.63069 9.5-12.0 SECONDS High 24.9 PTS Performed By: #### L300.06518 #### [facility] [address] [place] [address] CMP Collected: 07/25/2018 Status: F Source: [facility] 4:41 AM [facility] REPOSITORY Order Comment: [place]: M TYPE CODE TESTS RESULT OUT OF RANGE REFERENCE UNITS LAB L500.47283 136-145 MMOL/L Normal NA 138 LAB L500.68701 3.5-5.1 MMOL/L High K 5.4 LAB L500.44586 98-107 MMOL/L Normal CL 105 LAB L500.99912 21-32 MMOL/L Normal CO2 24 LAB L500.40687 5-16 MMOL/L Normal AGAP 8 LAB L500.71179 70-100 MG/DL High GLU 203 Result Comment: 70-100- Normal Fasting; 100-125 Impaired Fasting; greater than 126 on more than one result- Diabetes. ADA guidelines. Results may be falsely elevated after the administration of Sulfapyridine. Results may be falsely depressed after the administration of Sulfasalazine. LAB L500.52315 7-26 MG/DL High BUN 52 LAB L500.58017 0.510-0.950 MG/DL Normal CREAT 0.541 Result Comment: Patients receiving either N-Acetylcysteine (NAC) or Metamizole prior to venipuncture, may have falsely depressed results. LAB L500.63784 15-24 High BUN/CREA 97 LAB L500.00992 6.0-8.5 GM/DL Low TP 4.9 LAB L500.34868 3.2-5.0 GM/DL Low ALBUMIN 1.6 LAB L500.54581 2.2-4.2 GM/DL Normal GLOBULIN 3.2 LAB L500.13470 0.8-2.0 Low A/G RATIO 0.5 LAB L500.99118 8.5-10.1 MG/DL Low CALCIUM TOTAL 8.2 LAB L500.39148 0.2-1.0 MG/DL Normal BILI TOTAL 0.3 LAB L500.82876 8-34 U/L High SGOT (AST) 44 Result Comment: RESULTS MAY BE FALSELY DEPRESSED AFTER THE ADMINISTRATION OF SULFASALAZINE AND/OR SULFAPYRIDINE. LAB L500.09995 13-61 IU/L High SGPT (ALT) 75 Result Comment: RESULTS MAY BE FALSELY DEPRESSED AFTER THE ADMINISTRATION OF SULFASALAZINE AND/OR SULFAPYRIDINE. LAB L500.02498 45-117 U/L High ALK PHOS 483 Performed By: #### L500.80633, L500.12185, L500.10674, L500.13515 #### [facility] [address] [place] [address] GFR EST Collected: 07/25/2018 Status: F Source: [facility] 4:41 AM [facility] REPOSITORY Order Comment: [place]: M TYPE CODE TESTS RESULT OUT OF RANGE REFERENCE UNITS LAB L500.65389 ML/MIN Normal IF non-AFR Greater than AMER 60 LAB L500.50204 ML/MIN Normal IF Greater than AMER 60 Performed By: #### L500.68331, L500.16954, L500.70960, L500.27560 #### [facility] [address] [place] [address] PHOS Collected: 07/25/2018 Status: F Source: [facility] 4:41 AM [facility] REPOSITORY Order Comment: [place]: M TYPE CODE TESTS RESULT OUT OF RANGE REFERENCE UNITS LAB L500.24678 2.5-4.9 MG/DL Normal PHOS 3.3 Performed By: #### L500.84502, L500.44871, L500.51273, L500.87020 #### [facility] [address] [place] [address] MAGNESIUM Collected: 07/25/2018 Status: F Source: [facility] 4:41 AM [facility] REPOSITORY Order Comment: [place]: M TYPE CODE TESTS RESULT OUT OF RANGE REFERENCE UNITS LAB L500.72632 1.6-2.6 MG/DL Normal MAGNESIUM 2.2 Performed By: #### L500.36446, L500.43336, L500.66040, L500.02540 #### [facility] [address] [place] [address] PT Collected: 07/24/2018 Status: F Source: [facility] 4:32 AM [facility] REPOSITORY Order Comment: [place]: M TYPE CODE TESTS RESULT OUT OF RANGE REFERENCE UNITS LAB L300.03335 0.9-1.1 High INR 2.02 Result Comment: Recommended PT INR therapeutic range for detention and prophylactic therapy is 2.0 - 3.0. For heart valve and shunt patients the range is 2.5 - 3.5. LAB L300.23646 9.5-12.0 SECONDS High 21.6 PTS Performed By: #### L300.79894 #### [facility] [address] [place], [place] [address] PT Collected: 07/23/2018 Status: F Source: [facility] 4:13 AM [facility] REPOSITORY Order Comment: [place]: M TYPE CODE TESTS RESULT OUT OF RANGE REFERENCE UNITS LAB L300.92981 0.9-1.1 High INR 2.02 Result Comment: 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 For heart valve and shunt patients the range is 2.5 - 3.5. LAB L300.82843 9.5-12.0 SECONDS High 21.6 PTS Performed By: #### L300.31035, L300.73929 #### [facility] [address] [place] [address] PTT Collected: 07/23/2018 Status: F Source: [facility] 4:13 AM [facility] REPOSITORY Order Comment: [place]: M TYPE CODE TESTS RESULT OUT OF REFERENCE UNITS RANGE LAB L300.87009 22.0-31.5 SECONDS High PTT 39.2 Result Comment: Therapeutic Heparin Reference Range: High Dose: 46-75 seconds (DVT/PE) Low Dose: 39-60 seconds (Acute Coronary Syndrome) For low molecular weight heparin or danaparoid, monitoring is often NOT necessary, but the heparin assay, Xa inhibition assay (send-out) may be used in certain circumstances, as the PTT is generally insensitive to the effect of these agents. Direct thrombin inhibitors are becoming more widely utilized and these drugs are often monitored using the PTT. Performed By: #### L300.24771, L300.38854 #### [facility] [address] [place] [address] PTT Collected: 07/22/2018 Status: F Source: [facility] 5:35 PM [facility] REPOSITORY Order Comment: [place]: M TYPE CODE TESTS RESULT OUT OF REFERENCE UNITS RANGE LAB L300.51131 22.0-31.5 SECONDS High PTT 55.2 Result Comment: Therapeutic Heparin Reference Range: High Dose: 46-75 seconds (DVT/PE) Low Dose: 39-60 seconds (Acute Coronary Syndrome) For low molecular weight heparin or danaparoid, monitoring is often NOT necessary, but the heparin assay, Xa inhibition assay (send-out) may be used in certain circumstances, as the PTT is generally insensitive to the effect of these agents. Direct thrombin inhibitors are becoming more widely utilized and these drugs are often monitored using the PTT. Performed By: #### L300.55670 #### [facility] [address] [place] [address] PT Collected: 07/22/2018 Status: F Source: [facility] 5:35 PM [facility] REPOSITORY Order Comment: [place]: M TYPE CODE TESTS RESULT OUT OF RANGE REFERENCE UNITS LAB L300.95648 0.9-1.1 High INR 2.04 Result Comment: 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 For heart valve and shunt patients the range is 2.5 - 3.5. LAB L300.36292 9.5-12.0 SECONDS High 21.8 PTS Performed By: #### L300.84146 #### [facility] [place] [address] PROG.NOTE Observed: 07/22/2018 Status: UNK Source: [facility] 11:16 AM [facility] Patient Name: VENITA SMITH [address] [place] [address] Date of : [address] [address] Unit Number: [id number] Progress Note-Physician Patient Status: REG RCR Attending Doctor: Colette Sloan DO Service Date: 07/22/18 1116 Subjective S: (2 ROS minimum) Feeling pretty good, no abd pain. No fever. Objective (ROS) Physical Exam Neurological / Psychiatric Alert Respiratory Normal Breathing Effort, Clear Lungs Cardiovascular Heart RRR, No M / R / G Gastrointestinal Non Tender, No Mass Skin Abd incision dry, no swelling. Ostomy in place. Assessment and Plan Conclusion 1. 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 No growth of MRSA. 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 AcB was I to minocycline per [facility] micro lab, but very limited other options. Discharged to [facility] for planned 6 week course but course has been extended. At [facility], taken for partial flap placement 05/31. Bone cx with ESBL ecoli, CRE klebs, E faecium, diphtheroids. No Acinetobacter seen. Wound worsened. 06/07 changed bactrim to vanc. Both CRE and ESBL still sensitive to tetracycline. Gen surg consulted; CT abd/ pelvis showed fistula. Taken to OR 06/24 for resection and ostomy placement by Dr. Sanon. Sacral wound is overall much improved s/p ostomy and TPN. Has been on vanc, meropenem, and minocycline. Abd midline incision started to have persistent inflammation and draining pus. Wound cx with heavy purulence, cx with VRE and CRE klebs. Developed additional sites of pus able to be expressed from incision. CT showed no deeper abscess. 07/10 stopped vanc and meropenem, started linezolid and vabomere for additional coverage. Continuing minocycline. 07/10 overnight developed septic shock complicated by shock liver; LFTs improving but alk phos remains elevated with slower improved. Abd incision doing well now. Cxs neg except for single bcx with CoNS. Now off pressors. Wbc back to normal. Tentative stop date for abx will be 08/05/18; this would be a 6 week course starting from her fistula repair and diverting ostomy placement. May not be able to tolerate linezolid for that long, will monitor platelets. Any coverage that can be done of her sacral ulcer may help prevent recurrence after discharge. Will continue to follow. D/w wound care nurse. Disclaimer This dictation was created using voice recognition software. Phonetic and/or minor grammatical errors may exist. eSign Date and Time Syeda Palmer MD Verified/Reviewed by 07/22/18 1118 PTT Collected: 07/22/2018 Status: F Source: [facility] 11:13 AM [facility] REPOSITORY Order Comment: [place]: M : PLEASE COLLECT CLOSE POSSIBLE TO THE SELECTED TIME : TITRATING A HEPARIN GTT TYPE CODE TESTS RESULT OUT OF REFERENCE UNITS RANGE LAB L300.17526 22.0-31.5 SECONDS High PTT 66.1 Result Comment: Therapeutic Heparin Reference Range: High Dose: 46-75 seconds (DVT/PE) Low Dose: 39-60 seconds (Acute Coronary Syndrome) For low molecular weight heparin or danaparoid, monitoring is often NOT necessary, but the heparin assay, Xa inhibition assay (send-out) may be used in certain circumstances, as the PTT is generally insensitive to the effect of these agents. Direct thrombin inhibitors are becoming more widely utilized and these drugs are often monitored using the PTT. Performed By: #### L300.80605 #### [facility] [place] [address] CBC W/DIFF Collected: 07/22/2018 Status: F Source: [facility] 4:55 AM [facility] REPOSITORY Order Comment: [place]: M TYPE CODE TESTS RESULT OUT OF RANGE REFERENCE UNITS LAB L200.08745 4.5-11.0 K/CU MM WBC Normal 7.1 LAB L200.50370 3.90-5.30 M/CU MM Low RBC 3.11 LAB L200.31578 11.5-15.5 G/DL Low HGB 9.4 LAB L200.60089 35.0-47.0 % Low HCT 29.2 LAB L200.12498 80.0-99.0 fl MCV Normal 93.9 LAB L200.64552 32.0-36.0 GM/DL MCHC Normal 32.2 LAB L200.17772 11-14.5 High RDW 18.8 LAB L200.30737 9.4-12.4 Low MPV 9.2 LAB L200.10539 150-450 K/CU MM PLT Normal 192 LAB L200.37249 45-75 % High NEUTROPHILS % 79.9 LAB L200.03823 Less than 2 % IMMATURE Normal GRAN % 0.6 LAB L200.52172 20-40 % Low LYMPH % 12.5 LAB L200.46762 2-10 % MONOCYTE % Normal 5.5 LAB L200.99438 0-5 % EOSINOPHIL Normal % 1.4 LAB L200.48211 0-2 % BASOPHIL % Normal 0.1 LAB L200.00928 2.0-8.3 K/CU MM NEUTROPHIL Normal ABS 5.70 LAB L200.60887 Less than 2 K/CU MM IMMATR GRAN Normal ABS 0.00 LAB L200.62541 0.9-4.4 K/CU MM LYMPH ABS Normal 0.90 LAB L200.76557 0.1-1.1 K/CU MM MONO ABS Normal 0.40 LAB L200.94275 0-0.5 K/CU MM EOS ABS Normal 0.10 LAB L200.08339 0-0.2 K/CU MM BASO ABS Normal 0.00 LAB L200.58803 Less than 1 % NRBC Normal 0.0 Performed By: #### L200.21329 #### [facility] [address] [place] [address] PTT Collected: 07/22/2018 Status: F Source: [facility] 4:55 AM [facility] REPOSITORY Order Comment: [place]: M : PLEASE DRAW THIS LAB CLOSE TO 0500 POSSIBLE,HEP DRI TYPE CODE TESTS RESULT OUT OF REFERENCE UNITS RANGE LAB L300.12365 22.0-31.5 SECONDS High alert PTT 80.3 Result Comment: CRITICAL VALUE(S) VERIFIED AND CALLED TO AND READ BACK BY BLAYNE WOLFF AT 0559 07/22/18 BY JUANY CARTER Therapeutic Heparin Reference Range: High Dose: 46-75 seconds (DVT/PE) Low Dose: 39-60 seconds (Acute Coronary Syndrome) For low molecular weight heparin or danaparoid, monitoring is often NOT necessary, but the heparin assay, Xa inhibition assay (send-out) may be used in certain circumstances, as the PTT is generally insensitive to the effect of these agents. Direct thrombin inhibitors are becoming more widely utilized and these drugs are often monitored using the PTT. Performed By: #### L300.26949 #### [facility] [address] [place] [address] CMP Collected: 07/22/2018 Status: F Source: [facility] 4:55 AM [facility] REPOSITORY Order Comment: [place]: M TYPE CODE TESTS RESULT OUT OF RANGE REFERENCE UNITS LAB L500.02222 136-145 MMOL/L Normal NA 137 LAB L500.82443 3.5-5.1 MMOL/L Normal K 4.9 LAB L500.05938 98-107 MMOL/L Normal CL 104 LAB L500.49619 21-32 MMOL/L Normal CO2 26 LAB L500.86899 5-16 MMOL/L Normal AGAP 7 LAB L500.35687 70-100 MG/DL High GLU 204 Result Comment: 70-100- Normal Fasting; 100-125 Impaired Fasting; greater than 126 on more than one result- Diabetes. ADA guidelines. Results may be falsely elevated after the administration of Sulfapyridine. Results may be falsely depressed after the administration of Sulfasalazine. LAB L500.67639 7-26 MG/DL High BUN 53 LAB L500.14518 0.510-0.950 MG/DL Normal CREAT 0.646 Result Comment: Patients receiving either N-Acetylcysteine (NAC) or Metamizole prior to venipuncture, may have falsely depressed results. LAB L500.75742 15-24 High BUN/CREA 82 LAB L500.98008 6.0-8.5 GM/DL Low TP 4.7 LAB L500.01610 3.2-5.0 GM/DL Low ALBUMIN 1.6 LAB L500.87848 2.2-4.2 GM/DL Normal GLOBULIN 3.0 LAB L500.70130 0.8-2.0 Low A/G RATIO 0.5 LAB L500.55650 8.5-10.1 MG/DL Low CALCIUM TOTAL 7.8 LAB L500.36587 0.2-1.0 MG/DL Normal BILI TOTAL 0.3 LAB L500.16013 8-34 U/L High SGOT (AST) 52 Result Comment: RESULTS MAY BE FALSELY DEPRESSED AFTER THE ADMINISTRATION OF SULFASALAZINE AND/OR SULFAPYRIDINE. LAB L500.88300 13-61 IU/L High SGPT (ALT) 112 Result Comment: RESULTS MAY BE FALSELY DEPRESSED AFTER THE ADMINISTRATION OF SULFASALAZINE AND/OR SULFAPYRIDINE. LAB L500.29840 45-117 U/L High ALK PHOS 604 Performed By: #### L500.17311, L500.80209, L500.81350, L500.97568 #### [facility] [address] [place] [address] GFR EST Collected: 07/22/2018 Status: F Source: [facility] 4:55 AM [facility] REPOSITORY Order Comment: [place]: M TYPE CODE TESTS RESULT OUT OF RANGE REFERENCE UNITS LAB L500.49357 ML/MIN Normal IF non-AFR Greater than AMER 60 LAB L500.98402 ML/MIN Normal IF Greater than AMER 60 Performed By: #### L500.05481, L500.61141, L500.01046, L500.46030 #### [facility] [address] [place] [address] PHOS Collected: 07/22/2018 Status: F Source: [facility] 4:55 AM [facility] REPOSITORY Order Comment: [place]: M TYPE CODE TESTS RESULT OUT OF RANGE REFERENCE UNITS LAB L500.61725 2.5-4.9 MG/DL Normal PHOS 3.7 Performed By: #### L500.43037, L500.81475, L500.51416, L500.85548 #### [facility] [address] [place], [place] [address] MAGNESIUM Collected: 07/22/2018 Status: F Source: [facility] 4:55 AM [facility] REPOSITORY Order Comment: [place]: M TYPE CODE TESTS RESULT OUT OF RANGE REFERENCE UNITS LAB L500.89908 1.6-2.6 MG/DL Normal MAGNESIUM 2.1 Performed By: #### L500.40498, L500.17272, L500.21940, L500.14768 #### [facility] [address] [place] [address] PTT Collected: 07/21/2018 Status: F Source: [facility] 10:10 PM [facility] REPOSITORY Order Comment: [place]: M TYPE CODE TESTS RESULT OUT OF REFERENCE UNITS RANGE LAB L300.19666 22.0-31.5 SECONDS High alert PTT 84.8 Result Comment: CRITICAL VALUE(S) VERIFIED AND CALLED TO AND READ BACK BY TERRIE AGUIRRE AT 2300 07/21/18 BY VANESSA ENGEL Therapeutic Heparin Reference Range: High Dose: 46-75 seconds (DVT/PE) Low Dose: 39-60 seconds (Acute Coronary Syndrome) For low molecular weight heparin or danaparoid, monitoring is often NOT necessary, but the heparin assay, Xa inhibition assay (send-out) may be used in certain circumstances, as the PTT is generally insensitive to the effect of these agents. Direct thrombin inhibitors are becoming more widely utilized and these drugs are often monitored using the PTT. Performed By: #### L300.69787 #### [facility] [address] [place] [address] PTT Collected: 07/21/2018 Status: F Source: [facility] 2:21 PM [facility] REPOSITORY Order Comment: [place]: M TYPE CODE TESTS RESULT OUT OF REFERENCE UNITS RANGE LAB L300.51373 22.0-31.5 SECONDS High PTT 53.3 Result Comment: Therapeutic Heparin Reference Range: High Dose: 46-75 seconds (DVT/PE) Low Dose: 39-60 seconds (Acute Coronary Syndrome) For low molecular weight heparin or danaparoid, monitoring is often NOT necessary, but the heparin assay, Xa inhibition assay (send-out) may be used in certain circumstances, as the PTT is generally insensitive to the effect of these agents. Direct thrombin inhibitors are becoming more widely utilized and these drugs are often monitored using the PTT. Performed By: #### L300.55869 #### [facility] [address] [place] [address] PTT Collected: 07/21/2018 Status: F Source: [facility] 6:32 AM [facility] REPOSITORY Order Comment: [place]: M TYPE CODE TESTS RESULT OUT OF REFERENCE UNITS RANGE LAB L300.36698 22.0-31.5 SECONDS High alert PTT 96.0 Result Comment: CRITICAL VALUE(S) VERIFIED AND CALLED TO AND READ BACK BY GIORGI AT 0727 07/21/18 BY MERLIN PRUETT Therapeutic Heparin Reference Range: High Dose: 46-75 seconds (DVT/PE) Low Dose: 39-60 seconds (Acute Coronary Syndrome) For low molecular weight heparin or danaparoid, monitoring is often NOT necessary, but the heparin assay, Xa inhibition assay (send-out) may be used in certain circumstances, as the PTT is generally insensitive to the effect of these agents. Direct thrombin inhibitors are becoming more widely utilized and these drugs are often monitored using the PTT. Performed By: #### L300.75162 #### [facility] [address] [place] [address] PTT Collected: 07/20/2018 Status: F Source: [facility] 6:50 PM [facility] REPOSITORY Order Comment: [place]: M TYPE CODE TESTS RESULT OUT OF REFERENCE UNITS RANGE LAB L300.72169 22.0-31.5 SECONDS High PTT 59.7 Result Comment: Therapeutic Heparin Reference Range: High Dose: 46-75 seconds (DVT/PE) Low Dose: 39-60 seconds (Acute Coronary Syndrome) For low molecular weight heparin or danaparoid, monitoring is often NOT necessary, but the heparin assay, Xa inhibition assay (send-out) may be used in certain circumstances, as the PTT is generally insensitive to the effect of these agents. Direct thrombin inhibitors are becoming more widely utilized and these drugs are often monitored using the PTT. Performed By: #### L300.67765 #### [facility] [address] [place] [address] PTT Collected: 07/20/2018 Status: F Source: [facility] 12:02 PM [facility] REPOSITORY Order Comment: [place]: M TYPE CODE TESTS RESULT OUT OF REFERENCE UNITS RANGE LAB L300.01494 22.0-31.5 SECONDS High PTT 54.5 Result Comment: Therapeutic Heparin Reference Range: High Dose: 46-75 seconds (DVT/PE) Low Dose: 39-60 seconds (Acute Coronary Syndrome) For low molecular weight heparin or danaparoid, monitoring is often NOT necessary, but the heparin assay, Xa inhibition assay (send-out) may be used in certain circumstances, as the PTT is generally insensitive to the effect of these agents. Direct thrombin inhibitors are becoming more widely utilized and these drugs are often monitored using the PTT. Performed By: #### L300.72994 #### [facility] [address] [place] [address] PT Collected: 07/20/2018 Status: F Source: [facility] 8:54 AM [facility] REPOSITORY Order Comment: [place]: M TYPE CODE TESTS RESULT OUT OF RANGE REFERENCE UNITS LAB L300.35142 0.9-1.1 High INR 1.69 Result Comment: 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 For heart valve and shunt patients the range is 2.5 - 3.5. LAB L300.13759 9.5-12.0 SECONDS High 18.1 PTS Performed By: #### L300.56718 #### [facility] [address] [place] [address] CBC W/DIFF Collected: 07/20/2018 Status: F Source: [facility] 5:22 AM [facility] REPOSITORY Order Comment: [place]: M TYPE CODE TESTS RESULT OUT OF RANGE REFERENCE UNITS LAB L200.36535 4.5-11.0 K/CU MM WBC Normal 7.5 LAB L200.93177 3.90-5.30 M/CU MM Low RBC 3.16 LAB L200.91877 11.5-15.5 G/DL Low HGB 9.6 LAB L200.95000 35.0-47.0 % Low HCT 29.4 LAB L200.48779 80.0-99.0 fl MCV Normal 93.0 LAB L200.58638 32.0-36.0 GM/DL MCHC Normal 32.7 LAB L200.75699 11-14.5 High RDW 18.4 LAB L200.19930 9.4-12.4 MPV Normal 9.4 LAB L200.71073 150-450 K/CU MM PLT Normal 232 LAB L200.96088 45-75 % NEUTROPHILS Normal % 70.6 LAB L200.30803 Less than 2 % IMMATURE Normal GRAN % 0.9 LAB L200.61995 20-40 % Low LYMPH % 18.9 LAB L200.43077 2-10 % MONOCYTE % Normal 8.2 LAB L200.49671 0-5 % EOSINOPHIL Normal % 1.1 LAB L200.48296 0-2 % BASOPHIL % Normal 0.3 LAB L200.02299 2.0-8.3 K/CU MM NEUTROPHIL Normal ABS 5.30 LAB L200.51754 Less than 2 K/CU MM IMMATR GRAN Normal ABS 0.10 LAB L200.35425 0.9-4.4 K/CU MM LYMPH ABS Normal 1.40 LAB L200.35425 0.1-1.1 K/CU MM MONO ABS Normal 0.60 LAB L200.87910 0-0.5 K/CU MM EOS ABS Normal 0.10 LAB L200.55198 0-0.2 K/CU MM BASO ABS Normal 0.00 LAB L200.46267 Less than 1 % NRBC Normal 0.0 Performed By: #### L200.84244 #### [facility] [address] [place] [address] PT Collected: 07/20/2018 Status: F Source: [facility] 5:22 AM [facility] REPOSITORY Order Comment: [place]: M TYPE CODE TESTS RESULT OUT OF RANGE REFERENCE UNITS LAB L300.86017 0.9-1.1 High INR 1.73 Result Comment: Recommended PT INR therapeutic range for detention and prophylactic therapy is 2.0 - 3.0. For heart valve and shunt patients the range is 2.5 - 3.5. LAB L300.21700 9.5-12.0 SECONDS High 18.5 PTS Performed By: #### L300.68299, L300.80422 #### [facility] [address] [place] [address] PTT Collected: 07/20/2018 Status: F Source: [facility] 5:22 AM [facility] REPOSITORY Order Comment: [place]: M TYPE CODE TESTS RESULT OUT OF REFERENCE UNITS RANGE LAB L300.05773 22.0-31.5 SECONDS High PTT 48.1 Result Comment: Therapeutic Heparin Reference Range: High Dose: 46-75 seconds (DVT/PE) Low Dose: 39-60 seconds (Acute Coronary Syndrome) For low molecular weight heparin or danaparoid, monitoring is often NOT necessary, but the heparin assay, Xa inhibition assay (send-out) may be used in certain circumstances, as the PTT is generally insensitive to the effect of these agents. Direct thrombin inhibitors are becoming more widely utilized and these drugs are often monitored using the PTT. Performed By: #### L300.18238, L300.57347 #### [facility] [address] [place] [address] CMP Collected: 07/20/2018 Status: F Source: [facility] 5:22 AM [facility] REPOSITORY Order Comment: [place]: M TYPE CODE TESTS RESULT OUT OF RANGE REFERENCE UNITS LAB L500.73499 136-145 MMOL/L Normal NA 138 LAB L500.31591 3.5-5.1 MMOL/L Normal K 4.7 LAB L500.17188 98-107 MMOL/L Normal CL 104 LAB L500.25494 21-32 MMOL/L Normal CO2 26 LAB L500.36419 5-16 MMOL/L Normal AGAP 8 LAB L500.39014 70-100 MG/DL High GLU 170 Result Comment: 70-100- Normal Fasting; 100-125 Impaired Fasting; greater than 126 on more than one result- Diabetes. ADA guidelines. Results may be falsely elevated after the administration of Sulfapyridine. Results may be falsely depressed after the administration of Sulfasalazine. LAB L500.91859 7-26 MG/DL High BUN 53 LAB L500.43668 0.510-0.950 MG/DL Low CREAT 0.480 Result Comment: Patients receiving either N-Acetylcysteine (NAC) or Metamizole prior to venipuncture, may have falsely depressed results. LAB L500.49406 15-24 High BUN/CREA 111 LAB L500.35692 6.0-8.5 GM/DL Low TP 5.1 LAB L500.14719 3.2-5.0 GM/DL Low ALBUMIN 1.8 LAB L500.28881 2.2-4.2 GM/DL Normal GLOBULIN 3.3 LAB L500.78215 0.8-2.0 Low A/G RATIO 0.6 LAB L500.82989 8.5-10.1 MG/DL Low CALCIUM TOTAL 8.2 LAB L500.88605 0.2-1.0 MG/DL Normal BILI TOTAL 0.4 LAB L500.41188 8-34 U/L High SGOT (AST) 71 Result Comment: RESULTS MAY BE FALSELY DEPRESSED AFTER THE ADMINISTRATION OF SULFASALAZINE AND/OR SULFAPYRIDINE. LAB L500.23509 13-61 IU/L High SGPT (ALT) 169 Result Comment: RESULTS MAY BE FALSELY DEPRESSED AFTER THE ADMINISTRATION OF SULFASALAZINE AND/OR SULFAPYRIDINE. LAB L500.81102 45-117 U/L High ALK PHOS 827 Performed By: #### L500.13641, L500.97688 #### [facility] [address] [place] [address] GFR EST Collected: 07/20/2018 Status: F Source: [facility] 5:22 AM [facility] REPOSITORY Order Comment: [place]: M TYPE CODE TESTS RESULT OUT OF RANGE REFERENCE UNITS LAB L500.98768 ML/MIN Normal IF non-AFR Greater than AMER 60 LAB L500.76328 ML/MIN Normal IF Greater than AMER 60 Performed By: #### L500.78176, L500.68943 #### [facility] [address] [place] [address] PTT Collected: 07/19/2018 Status: F Source: [facility] 9:34 PM [facility] REPOSITORY Order Comment: [place]: M TYPE CODE TESTS RESULT OUT OF REFERENCE UNITS RANGE LAB L300.07062 22.0-31.5 SECONDS High PTT 43.5 Result Comment: Therapeutic Heparin Reference Range: High Dose: 46-75 seconds (DVT/PE) Low Dose: 39-60 seconds (Acute Coronary Syndrome) For low molecular weight heparin or danaparoid, monitoring is often NOT necessary, but the heparin assay, Xa inhibition assay (send-out) may be used in certain circumstances, as the PTT is generally insensitive to the effect of these agents. Direct thrombin inhibitors are becoming more widely utilized and these drugs are often monitored using the PTT. Performed By: #### L300.24609 #### [facility] [address] [place] [address] PTT Collected: 07/19/2018 Status: F Source: [facility] 3:15 PM [facility] REPOSITORY Order Comment: [place]: TYPE CODE TESTS RESULT OUT OF REFERENCE UNITS RANGE LAB L300.14606 22.0-31.5 SECONDS High PTT 41.0 Result Comment: Therapeutic Heparin Reference Range: High Dose: 46-75 seconds (DVT/PE) Low Dose: 39-60 seconds (Acute Coronary Syndrome) For low molecular weight heparin or danaparoid, monitoring is often NOT necessary, but the heparin assay, Xa inhibition assay (send-out) may be used in certain circumstances, as the PTT is generally insensitive to the effect of these agents. Direct thrombin inhibitors are becoming more widely utilized and these drugs are often monitored using the PTT. Performed By: #### L300.02991 #### [facility] [address] [place] [address] PROG.NOTE Observed: 07/19/2018 Status: UNK Source: [facility] 11:08 AM [facility] Patient Name: VENITA SMITH [address] [place] [address] Date of : [address] [address] Unit Number: [id number] Progress Note-Physician Patient Status: REG RCR Attending Doctor: Colette Sloan DO Service Date: 07/19/18 1108 Subjective S: (2 ROS minimum) No events overnight, no fever. Wounds doing well on dressing change per nursing. Objective (ROS) Physical Exam Neurological / Psychiatric NAD Respiratory Normal Breathing Effort, Clear Lungs Cardiovascular Heart RRR, No M / R / G Gastrointestinal Non Tender, No Mass Skin reviewed wound photos Assessment and Plan Conclusion 1. 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 No growth of MRSA. 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 AcB was I to minocycline per [facility], but very limited other options. Discharged to [facility] for planned 6 week course but course has been extended. At [facility], taken for partial flap placement 05/31. Bone cx with ESBL ecoli, CRE klebs, E faecium, diphtheroids. No Acinetobacter seen. Wound worsened. 06/07 changed bactrim to vanc. Both CRE and ESBL still sensitive to tetracycline. Gen surg consulted; CT abd/ pelvis showed fistula. Taken to OR 06/24 for resection and ostomy placement by Dr. Sanon. Sacral wound is overall much improved s/p ostomy and starting TPN. Has been on vanc, meropenem, and minocycline. Abd midline incision started to have persistent inflammation and draining pus. Wound cx with heavy purulence, cx with VRE and CRE klebs. Developed additional sites of pus able to be expressed from incision. CT showed no deeper abscess. 07/10 stopped vanc and meropenem, started linezolid and vabomere for additional coverage. Continuing minocycline. 07/10 overnight developed septic shock complicated by shock liver; LFTs improving but alk phos remains elevated with slower improved. Abd incision doing well now. Cxs neg except for single bcx with CoNS. Now off pressors. Wbc back to normal. Tentative stop date for abx will be 08/05/18; this would be a 6 week course starting from her fistula repair and diverting ostomy placement. May not be able to tolerate linezolid for that long, will monitor platelets. Any coverage that can be done of her sacral ulcer may help prevent recurrence after discharge. Will continue to follow. D/w wound care nurse. Disclaimer This dictation was created using voice recognition software. Phonetic and/or minor grammatical errors may exist. eSign Date and Time Syeda Palmer MD Verified/Reviewed by 07/19/18 1110 PTT Collected: 07/19/2018 Status: F Source: [facility] 9:10 AM [facility] REPOSITORY Order Comment: [place]: M TYPE CODE TESTS RESULT OUT OF REFERENCE UNITS RANGE LAB L300.97416 22.0-31.5 SECONDS High PTT 39.6 Result Comment: Therapeutic Heparin Reference Range: High Dose: 46-75 seconds (DVT/PE) Low Dose: 39-60 seconds (Acute Coronary Syndrome) For low molecular weight heparin or danaparoid, monitoring is often NOT necessary, but the heparin assay, Xa inhibition assay (send-out) may be used in certain circumstances, as the PTT is generally insensitive to the effect of these agents. Direct thrombin inhibitors are becoming more widely utilized and these drugs are often monitored using the PTT. Performed By: #### L300.46763 #### [facility] [address] [place] [address] PT Collected: 07/19/2018 Status: F Source: [facility] 2:22 AM [facility] REPOSITORY Order Comment: [place]: M TYPE CODE TESTS RESULT OUT OF RANGE REFERENCE UNITS LAB L300.81294 0.9-1.1 High INR 1.49 Result Comment: 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 For heart valve and shunt patients the range is 2.5 - 3.5. LAB L300.48944 9.5-12.0 SECONDS High 15.9 PTS Performed By: #### L300.02074 #### [facility] [address] [place] [address] PTT Collected: 07/19/2018 Status: F Source: [facility] 2:22 AM [facility] REPOSITORY Order Comment: [place]: M TYPE CODE TESTS RESULT OUT OF REFERENCE UNITS RANGE LAB L300.66557 22.0-31.5 SECONDS High PTT 37.8 Result Comment: Therapeutic Heparin Reference Range: High Dose: 46-75 seconds (DVT/PE) Low Dose: 39-60 seconds (Acute Coronary Syndrome) For low molecular weight heparin or danaparoid, monitoring is often NOT necessary, but the heparin assay, Xa inhibition assay (send-out) may be used in certain circumstances, as the PTT is generally insensitive to the effect of these agents. Direct thrombin inhibitors are becoming more widely utilized and these drugs are often monitored using the PTT. Performed By: #### L300.22634 #### [facility] [place] [address] PTT Collected: 07/18/2018 Status: F Source: [facility] 7:48 PM [facility] REPOSITORY Order Comment: [place]: M TYPE CODE TESTS RESULT OUT OF REFERENCE UNITS RANGE LAB L300.87699 22.0-31.5 SECONDS High PTT 32.7 Result Comment: Therapeutic Heparin Reference Range: High Dose: 46-75 seconds (DVT/PE) Low Dose: 39-60 seconds (Acute Coronary Syndrome) For low molecular weight heparin or danaparoid, monitoring is often NOT necessary, but the heparin assay, Xa inhibition assay (send-out) may be used in certain circumstances, as the PTT is generally insensitive to the effect of these agents. Direct thrombin inhibitors are becoming more widely utilized and these drugs are often monitored using the PTT. Performed By: #### L300.55092 #### [facility] [address] [place] [address] PTT Collected: 07/18/2018 Status: F Source: [facility] 11:16 AM [facility] REPOSITORY Order Comment: [place]: M TYPE CODE TESTS RESULT OUT OF RANGE REFERENCE UNITS LAB L300.62587 22.0-31.5 SECONDS Normal PTT 29.9 Result Comment: Therapeutic Heparin Reference Range: High Dose: 46-75 seconds (DVT/PE) Low Dose: 39-60 seconds (Acute Coronary Syndrome) For low molecular weight heparin or danaparoid, monitoring is often NOT necessary, but the heparin assay, Xa inhibition assay (send-out) may be used in certain circumstances, as the PTT is generally insensitive to the effect of these agents. Direct thrombin inhibitors are becoming more widely utilized and these drugs are often monitored using the PTT. Performed By: #### L300.86801 #### [facility] [address] [place] [address] CBC W/DIFF Collected: 07/18/2018 Status: F Source: [facility] 4:21 AM [facility] REPOSITORY Order Comment: [place]: M TYPE CODE TESTS RESULT OUT OF RANGE REFERENCE UNITS LAB L200.37302 4.5-11.0 K/CU MM WBC Normal 7.7 LAB L200.29019 3.90-5.30 M/CU MM Low RBC 3.38 LAB L200.85432 11.5-15.5 G/DL Low HGB 9.8 LAB L200.61792 35.0-47.0 % Low HCT 31.7 LAB L200.49686 80.0-99.0 fl MCV Normal 93.8 LAB L200.35281 32.0-36.0 GM/DL Low MCHC 30.9 LAB L200.53947 11-14.5 High RDW 18.3 LAB L200.10832 9.4-12.4 MPV Normal 9.4 LAB L200.38703 150-450 K/CU MM PLT Normal 255 LAB L200.67053 45-75 % NEUTROPHILS Normal % 70.1 LAB L200.94921 Less than 2 % IMMATURE Normal GRAN % 1.8 LAB L200.52317 20-40 % Low LYMPH % 17.2 LAB L200.64218 2-10 % MONOCYTE % Normal 8.8 LAB L200.21963 0-5 % EOSINOPHIL Normal % 1.8 LAB L200.54834 0-2 % BASOPHIL % Normal 0.3 LAB L200.99802 2.0-8.3 K/CU MM NEUTROPHIL Normal ABS 5.40 LAB L200.37377 Less than 2 K/CU MM IMMATR GRAN Normal ABS 0.10 LAB L200.52107 0.9-4.4 K/CU MM LYMPH ABS Normal 1.30 LAB L200.11619 0.1-1.1 K/CU MM MONO ABS Normal 0.70 LAB L200.68194 0-0.5 K/CU MM EOS ABS Normal 0.10 LAB L200.48550 0-0.2 K/CU MM BASO ABS Normal 0.00 LAB L200.80014 Less than 1 % NRBC Normal 0.0 Performed By: #### L200.01390 #### [facility] [address] [place] [address] PT Collected: 07/18/2018 Status: F Source: [facility] 4:21 AM [facility] REPOSITORY Order Comment: [place]: M TYPE CODE TESTS RESULT OUT OF RANGE REFERENCE UNITS LAB L300.23680 0.9-1.1 High INR 1.25 Result Comment: Recommended PT INR therapeutic range for detention and prophylactic therapy is 2.0 - 3.0. For heart valve and shunt patients the range is 2.5 - 3.5. LAB L300.94687 9.5-12.0 SECONDS High 13.4 PTS Performed By: #### L300.40200, L300.73009 #### [facility] [address] [place] [address] PTT Collected: 07/18/2018 Status: F Source: [facility] 4:21 AM [facility] REPOSITORY Order Comment: [place]: M TYPE CODE TESTS RESULT OUT OF RANGE REFERENCE UNITS LAB L300.91144 22.0-31.5 SECONDS Normal PTT 28.5 Result Comment: Therapeutic Heparin Reference Range: High Dose: 46-75 seconds (DVT/PE) Low Dose: 39-60 seconds (Acute Coronary Syndrome) For low molecular weight heparin or danaparoid, monitoring is often NOT necessary, but the heparin assay, Xa inhibition assay (send-out) may be used in certain circumstances, as the PTT is generally insensitive to the effect of these agents. Direct thrombin inhibitors are becoming more widely utilized and these drugs are often monitored using the PTT. Performed By: #### L300.44005, L300.47285 #### [facility] [address] [place] [address] CMP Collected: 07/18/2018 Status: F Source: [facility] 4:21 AM [facility] REPOSITORY Order Comment: [place]: M TYPE CODE TESTS RESULT OUT OF RANGE REFERENCE UNITS LAB L500.79077 136-145 MMOL/L Normal NA 136 LAB L500.43676 3.5-5.1 MMOL/L Normal K 4.6 LAB L500.25795 98-107 MMOL/L Normal CL 103 LAB L500.10398 21-32 MMOL/L Normal CO2 25 LAB L500.16459 5-16 MMOL/L Normal AGAP 8 LAB L500.52020 70-100 MG/DL High GLU 159 Result Comment: 70-100- Normal Fasting; 100-125 Impaired Fasting; greater than 126 on more than one result- Diabetes. ADA guidelines. Results may be falsely elevated after the administration of Sulfapyridine. Results may be falsely depressed after the administration of Sulfasalazine. LAB L500.76394 7-26 MG/DL High BUN 74 LAB L500.55030 0.510-0.950 MG/DL Normal CREAT 0.534 Result Comment: Patients receiving either N-Acetylcysteine (NAC) or Metamizole prior to venipuncture, may have falsely depressed results. LAB L500.72493 15-24 High BUN/CREA 138 LAB L500.58059 6.0-8.5 GM/DL Low TP 5.2 LAB L500.64258 3.2-5.0 GM/DL Low ALBUMIN 1.8 LAB L500.23985 2.2-4.2 GM/DL Normal GLOBULIN 3.4 LAB L500.67967 0.8-2.0 Low A/G RATIO 0.5 LAB L500.75247 8.5-10.1 MG/DL Normal CALCIUM TOTAL 8.5 LAB L500.42920 0.2-1.0 MG/DL Normal BILI TOTAL 0.5 LAB L500.69238 8-34 U/L High SGOT (AST) 112 Result Comment: RESULTS MAY BE FALSELY DEPRESSED AFTER THE ADMINISTRATION OF SULFASALAZINE AND/OR SULFAPYRIDINE. LAB L500.84166 13-61 IU/L High SGPT (ALT) 215 Result Comment: RESULTS MAY BE FALSELY DEPRESSED AFTER THE ADMINISTRATION OF SULFASALAZINE AND/OR SULFAPYRIDINE. LAB L500.24068 45-117 U/L High ALK PHOS 980 Performed By: #### L500.66508, L500.35268, L500.59650, L500.70757 #### [facility] [place] [address] GFR EST Collected: 07/18/2018 Status: F Source: [facility] 4:21 AM [facility] REPOSITORY Order Comment: [place]: M TYPE CODE TESTS RESULT OUT OF RANGE REFERENCE UNITS LAB L500.08908 ML/MIN Normal IF non-AFR Greater than AMER 60 LAB L500.35850 ML/MIN Normal IF Greater than AMER 60 Performed By: #### L500.13783, L500.24836, L500.63843, L500.97777 #### [facility] [place] [address] PHOS Collected: 07/18/2018 Status: F Source: [facility] 4:21 AM [facility] REPOSITORY Order Comment: [place]: M TYPE CODE TESTS RESULT OUT OF RANGE REFERENCE UNITS LAB L500.25062 2.5-4.9 MG/DL Normal PHOS 3.7 Performed By: #### L500.26284, L500.94948, L500.93686, L500.73664 #### [facility] [address] [place] [address]# [phone] MAGNESIUM Collected: 07/18/2018 Status: F Source: [facility] 4:21 AM [facility] REPOSITORY Order Comment: [place]: M TYPE CODE TESTS RESULT OUT OF RANGE REFERENCE UNITS LAB L500.99395 1.6-2.6 MG/DL Normal MAGNESIUM 2.1 Performed By: #### L500.02465, L500.66668, L500.77281, L500.23509 #### [facility] [address] [place] [address]# [phone] PTT Collected: 07/17/2018 Status: F Source: [facility] 9:37 PM [facility] REPOSITORY Order Comment: [place]: M TYPE CODE TESTS RESULT OUT OF RANGE REFERENCE UNITS LAB L300.57405 22.0-31.5 SECONDS Normal PTT 28.1 Result Comment: Therapeutic Heparin Reference Range: High Dose: 46-75 seconds (DVT/PE) Low Dose: 39-60 seconds (Acute Coronary Syndrome) For low molecular weight heparin or danaparoid, monitoring is often NOT necessary, but the heparin assay, Xa inhibition assay (send-out) may be used in certain circumstances, as the PTT is generally insensitive to the effect of these agents. Direct thrombin inhibitors are becoming more widely utilized and these drugs are often monitored using the PTT. Performed By: #### L300.85311 #### [facility] [address] [place] [address] CBC W/DIFF Collected: 07/17/2018 Status: F Source: [facility] 3:25 PM [facility] REPOSITORY Order Comment: [place]: M TYPE CODE TESTS RESULT OUT OF RANGE REFERENCE UNITS LAB L200.77585 4.5-11.0 K/CU MM WBC Normal 10.1 LAB L200.98786 3.90-5.30 M/CU MM Low RBC 3.36 LAB L200.45468 11.5-15.5 G/DL Low HGB 9.9 LAB L200.35709 35.0-47.0 % Low HCT 31.0 LAB L200.68022 80.0-99.0 fl MCV Normal 92.3 LAB L200.02144 32.0-36.0 GM/DL Low MCHC 31.9 LAB L200.67237 11-14.5 High RDW 18.3 LAB L200.93756 9.4-12.4 Low MPV 9.3 LAB L200.79400 150-450 K/CU MM PLT Normal 275 LAB L200.04918 45-75 % High NEUTROPHILS % 75.4 LAB L200.95575 Less than 2 % IMMATURE Normal GRAN % 1.7 LAB L200.60136 20-40 % Low LYMPH % 13.3 LAB L200.09782 2-10 % MONOCYTE % Normal 7.8 LAB L200.85122 0-5 % EOSINOPHIL Normal % 1.5 LAB L200.40425 0-2 % BASOPHIL % Normal 0.3 LAB L200.12508 2.0-8.3 K/CU MM NEUTROPHIL Normal ABS 7.60 LAB L200.12885 Less than 2 K/CU MM IMMATR GRAN Normal ABS 0.20 LAB L200.23822 0.9-4.4 K/CU MM LYMPH ABS Normal 1.40 LAB L200.22730 0.1-1.1 K/CU MM MONO ABS Normal 0.80 LAB L200.22342 0-0.5 K/CU MM EOS ABS Normal 0.20 LAB L200.67167 0-0.2 K/CU MM BASO ABS Normal 0.00 LAB L200.59997 Less than 1 % NRBC Normal 0.0 Performed By: #### L200.99532 #### [facility] [place] [id number] PT Collected: 07/17/2018 Status: F Source: [facility] 3:25 PM [facility] REPOSITORY Order Comment: [place]: TYPE CODE TESTS RESULT OUT OF RANGE REFERENCE UNITS LAB L300.35315 0.9-1.1 High INR 1.17 Result Comment: 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 For heart valve and shunt patients the range is 2.5 - 3.5. LAB L300.33637 9.5-12.0 SECONDS High 12.5 PTS Performed By: #### L300.72565, L300.67785 #### [facility] [address] [place] [address] PTT Collected: 07/17/2018 Status: F Source: [facility] 3:25 PM [facility] REPOSITORY Order Comment: [place]: TYPE CODE TESTS RESULT OUT OF RANGE REFERENCE UNITS LAB L300.34169 22.0-31.5 SECONDS Normal PTT 26.7 Result Comment: Therapeutic Heparin Reference Range: High Dose: 46-75 seconds (DVT/PE) Low Dose: 39-60 seconds (Acute Coronary Syndrome) For low molecular weight heparin or danaparoid, monitoring is often NOT necessary, but the heparin assay, Xa inhibition assay (send-out) may be used in certain circumstances, as the PTT is generally insensitive to the effect of these agents. Direct thrombin inhibitors are becoming more widely utilized and these drugs are often monitored using the PTT. Performed By: #### L300.75948, L300.41794 #### [facility] [address] [place] [address] PROG.NOTE Observed: 07/17/2018 Status: UNK Source: [facility] 12:04 PM [facility] REPOSITORY [facility] Patient Name: VENITA SMITH [address] [place] [address] Date of : [address] [address] Unit Number: [id number] Progress Note-Physician Patient Status: REG RCR Attending Doctor: Colette Sloan DO Service Date: 07/17/18 1204 Subjective S: (2 ROS minimum) Feeling well, no fever, no abd pain Objective (ROS) Physical Exam Neurological / Psychiatric Alert Respiratory Normal Breathing Effort, Clear Lungs Cardiovascular Heart RRR, No M / R / G Gastrointestinal Non Tender, No Mass Skin no abd incision drainage Assessment and Plan Conclusion 1. 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 No growth of MRSA. 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 AcB was I to minocycline per [facility] lab, but very limited other options. Discharged to [facility] for planned 6 week course but course has been extended. At [facility], taken for partial flap placement 05/31. Bone cx with ESBL ecoli, CRE klebs, E faecium, diphtheroids. No Acinetobacter seen. Wound worsened. 06/07 changed bactrim to vanc. Both CRE and ESBL still sensitive to tetracycline. Gen surg consulted; CT abd/ pelvis showed fistula. Taken to OR 06/24 for resection and ostomy placement by Dr. Saonn. Sacral wound is overall much improved s/p ostomy and starting TPN. Has been on vanc, meropenem, and minocycline. Abd midline incision started to have persistent inflammation and draining pus. Wound cx with heavy purulence, cx with VRE and CRE klebs. Developed additional sites of pus able to be expressed from incision. CT showed no deeper abscess. 07/10 stopped vanc and meropenem, started linezolid and vabomere for additional coverage. Continuing minocycline. 07/10 overnight developed septic shock complicated by shock liver; LFTs improving but alk phos remains elevated. Abd incision looks better. Cxs neg except for single bcx with CoNS. Now off pressors. Wbc back to normal. Tentative stop date for abx will be 08/05/18; this would be a 6 week course starting from her fistula repair and diverting ostomy placement. May not be able to tolerate linezolid for that long, will monitor platelets. Will continue to follow. Disclaimer This dictation was created using voice recognition software. Phonetic and/or minor grammatical errors may exist. eSign Date and Time Syeda Palmer MD Verified/Reviewed by 07/17/18 1207 PT Collected: 07/17/2018 Status: F Source: [facility] 4:22 AM [facility] REPOSITORY Order Comment: [place]: M TYPE CODE TESTS RESULT OUT OF RANGE REFERENCE UNITS LAB L300.47309 0.9-1.1 High INR 1.15 Result Comment: 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 For heart valve and shunt patients the range is 2.5 - 3.5. LAB L300.99238 9.5-12.0 SECONDS High 12.3 PTS Performed By: #### L300.82655 #### [facility] [address] [place] [address] PROG.NOTE Observed: 07/15/2018 Status: UNK Source: [facility] 12:17 PM [facility] REPOSITORY [facility] Patient Name: VENITA SMITH [address] [place] [address] Date of : [address] [address] Unit Number: [id number] Progress Note-Physician Patient Status: REG RCR Attending Doctor: Colette lSoan DO Service Date: 07/15/18 1217 Subjective S: (2 ROS minimum) Feeling better, off pressors, no abd pain. No fever overnight. Objective (ROS) Physical Exam Neurological / Psychiatric Alert Respiratory Normal Breathing Effort, Clear Lungs Cardiovascular Heart RRR, No M / R / G Gastrointestinal Non Tender, No Mass Skin abd incision less red and swollen, unable to express purulence. Assessment and Plan Conclusion 1. 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 No growth of MRSA. 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 AcB was I to minocycline per [facility] lab, but very limited other options. Discharged to [facility] for planned 6 week course but course has been extended. At [facility], taken for partial flap placement 05/31. Bone cx with ESBL ecoli, CRE klebs, E faecium, diphtheroids. No Acinetobacter seen. Wound worsened. 06/07 changed bactrim to vanc. Both CRE and ESBL still sensitive to tetracycline. Gen surg consulted; CT abd/ pelvis showed fistula. Taken to OR 06/24 for resection and ostomy placement by Dr. Sanon. Sacral wound is overall much improved s/p ostomy and starting TPN. Has been on vanc, meropenem, and minocycline. Abd midline incision started to have persistent inflammation and draining pus. Wound cx with heavy purulence, cx with VRE and CRE klebs. Developed additional sites of pus able to be expressed from incision. CT showed no deeper abscess. 07/10 stopped vanc and meropenem, started linezolid and vabomere for additional coverage. Continuing minocycline. 07/10 overnight developed septic shock complicated by shock liver; LFTs improving but alk phos remains elevated. Abd incision looks better. Cxs neg except for single bcx with CoNS. Now off pressors. Wbc normal. Will continue to follow. Disclaimer This dictation was created using voice recognition software. Phonetic and/or minor grammatical errors may exist. eSign Date and Time Syeda Palmer MD Verified/Reviewed by 07/15/18 1220 CBC W/DIFF Collected: 07/15/2018 Status: F Source: [facility] 5:00 AM [facility] REPOSITORY Order Comment: [place]: M TYPE CODE TESTS RESULT OUT OF RANGE REFERENCE UNITS LAB L200.58192 4.5-11.0 K/CU MM WBC Normal 6.4 LAB L200.28806 3.90-5.30 M/CU MM Low RBC 3.43 LAB L200.75677 11.5-15.5 G/DL Low HGB 9.9 LAB L200.37307 35.0-47.0 % Low HCT 31.1 LAB L200.13086 80.0-99.0 fl MCV Normal 90.7 LAB L200.66807 32.0-36.0 GM/DL Low MCHC 31.8 LAB L200.18530 11-14.5 High RDW 17.7 LAB L200.92914 9.4-12.4 MPV Normal 9.6 LAB L200.24520 150-450 K/CU MM PLT Normal 293 LAB L200.68324 45-75 % NEUTROPHILS Normal % 67.7 LAB L200.51566 Less than 2 % IMMATURE Normal GRAN % 2.8 LAB L200.24664 20-40 % Low LYMPH % 17.5 LAB L200.61910 2-10 % MONOCYTE % Normal 9.5 LAB L200.25535 0-5 % EOSINOPHIL Normal % 2.2 LAB L200.32084 0-2 % BASOPHIL % Normal 0.3 LAB L200.03056 2.0-8.3 K/CU MM NEUTROPHIL Normal ABS 4.30 LAB L200.41432 Less than 2 K/CU MM IMMATR GRAN Normal ABS 0.20 LAB L200.30422 0.9-4.4 K/CU MM LYMPH ABS Normal 1.10 LAB L200.60454 0.1-1.1 K/CU MM MONO ABS Normal 0.60 LAB L200.83256 0-0.5 K/CU MM EOS ABS Normal 0.10 LAB L200.21892 0-0.2 K/CU MM BASO ABS Normal 0.00 LAB L200.69523 Less than 1 % NRBC Normal 0.0 Performed By: #### L200.22303 #### [facility] [address] [place] [address] CMP Collected: 07/15/2018 Status: F Source: [facility] 5:00 AM [facility] REPOSITORY Order Comment: [place]: TYPE CODE TESTS RESULT OUT OF RANGE REFERENCE UNITS LAB L500.39283 136-145 MMOL/L Normal NA 138 LAB L500.26075 3.5-5.1 MMOL/L Normal K 4.1 Result Comment: Slight Hemolysis, Result may be falsely increased. LAB L500.04652 98-107 MMOL/L Normal CL 105 LAB L500.68973 21-32 MMOL/L Normal CO2 24 LAB L500.80658 5-16 MMOL/L Normal AGAP 8 LAB L500.38249 70-100 MG/DL High GLU 166 Result Comment: 70-100- Normal Fasting; 100-125 Impaired Fasting; greater than 126 on more than one result- Diabetes. ADA guidelines. Results may be falsely elevated after the administration of Sulfapyridine. Results may be falsely depressed after the administration of Sulfasalazine. LAB L500.65999 7-26 MG/DL High BUN 64 LAB L500.24853 0.510-0.950 MG/DL Normal CREAT 0.535 Result Comment: Patients receiving either N-Acetylcysteine (NAC) or Metamizole prior to venipuncture, may have falsely depressed results. LAB L500.04891 15-24 High BUN/CREA 120 LAB L500.74512 6.0-8.5 GM/DL Low TP 5.0 LAB L500.63546 3.2-5.0 GM/DL Low ALBUMIN 1.7 LAB L500.25440 2.2-4.2 GM/DL Normal GLOBULIN 3.3 LAB L500.00850 0.8-2.0 Low A/G RATIO 0.5 LAB L500.98010 8.5-10.1 MG/DL Low CALCIUM TOTAL 8.2 LAB L500.04968 0.2-1.0 MG/DL Normal BILI TOTAL 0.6 LAB L500.25159 8-34 U/L High SGOT (AST) 82 Result Comment: Slight Hemolysis, Result may be falsely increased. RESULTS MAY BE FALSELY DEPRESSED AFTER THE ADMINISTRATION OF SULFASALAZINE AND/OR SULFAPYRIDINE. LAB L500.08607 13-61 IU/L High SGPT (ALT) 241 Result Comment: RESULTS MAY BE FALSELY DEPRESSED AFTER THE ADMINISTRATION OF SULFASALAZINE AND/OR SULFAPYRIDINE. LAB L500.22571 45-117 U/L High ALK 1308 PHOS Performed By: #### L500.55127, L500.80540, L500.55481, L500.20662 #### [facility] [address] [place] [address] GFR EST Collected: 07/15/2018 Status: F Source: [facility] 5:00 AM [facility] REPOSITORY Order Comment: [place]: M TYPE CODE TESTS RESULT OUT OF RANGE REFERENCE UNITS LAB L500.27152 ML/MIN Normal IF non-AFR Greater than AMER 60 LAB L500.81390 ML/MIN Normal IF Greater than AMER 60 Performed By: #### L500.80577, L500.05810, L500.90131, L500.11146 #### [facility] [address] [place] [address] PHOS Collected: 07/15/2018 Status: F Source: [facility] 5:00 AM [facility] REPOSITORY Order Comment: [place]: M TYPE CODE TESTS RESULT OUT OF RANGE REFERENCE UNITS LAB L500.75611 2.5-4.9 MG/DL Normal PHOS 2.6 Performed By: #### L500.04676, L500.87688, L500.69180, L500.63941 #### [facility] [address] [place] [address] MAGNESIUM Collected: 07/15/2018 Status: F Source: [facility] 5:00 AM [facility] REPOSITORY Order Comment: [place]: M TYPE CODE TESTS RESULT OUT OF RANGE REFERENCE UNITS LAB L500.97773 1.6-2.6 MG/DL Normal MAGNESIUM 1.9 Result Comment: Slight Hemolysis, Result may be falsely increased. Performed By: #### L500.40906, L500.57074, L500.95844, L500.22746 #### [facility] [address] [place] [id number] PT Collected: 07/14/2018 Status: F Source: [facility] 3:54 AM [facility] REPOSITORY Order Comment: [place]: M TYPE CODE TESTS RESULT OUT OF RANGE REFERENCE UNITS LAB L300.87137 0.9-1.1 High INR 2.12 Result Comment: Recommended PT INR therapeutic range for detention and prophylactic therapy is 2.0 - 3.0. For heart valve and shunt patients the range is 2.5 - 3.5. LAB L300.79508 9.5-12.0 SECONDS High 22.7 PTS Performed By: #### L300.78331 #### [facility] [address] [place] [address] PROG.NOTE Observed: 07/13/2018 Status: UNK Source: [facility] 12:42 PM [facility] Patient Name: VENITA SMITH [address] [place] [address] Date of : [address] [address] Unit Number: [id number] Progress Note-Physician Patient Status: REG RCR Attending Doctor: Colette Sloan DO Service Date: 07/13/18 1242 Subjective S: (2 ROS minimum) Feeling better, still on pressors, no abd pain. Objective (ROS) Physical Exam Neurological / Psychiatric Alert Respiratory Normal Breathing Effort, Clear Lungs Cardiovascular No M / R / G, tachy Gastrointestinal Non Tender, No Mass Skin abd incision less red and swollen, minimal purulence today Assessment and Plan Conclusion 1. 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 No growth of MRSA. 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 AcB was I to minocycline per [facility] lab, but very limited other options. Discharged to [facility] for planned 6 week course but course has been extended. At [facility], taken for partial flap placement 05/31. Bone cx with ESBL ecoli, CRE klebs, E faecium, diphtheroids. No Acinetobacter seen. Wound worsened. 06/07 changed bactrim to vanc. Both CRE and ESBL still sensitive to tetracycline, but may need to add colistin eventually. Gen surg consulted; CT abd/pelvis showed fistula. Taken to OR 06/24 for resection and ostomy placement by Dr. Sanon. Sacral wound is overall much improved s /p ostomy and starting TPN. Has been on vanc, meropenem, and minocycline. Abd midline incision developed persistent inflammation and draining pus. Wound cx with heavy purulence, cx with VRE and CRE klebs. Now with additional sites of pus able to be expressed from incision. CT showed no deeper abscess. 07/10 stopped vanc and meropenem, started linezolid and vabomere for additional coverage. Continuing minocycline. 07/10 overnight developed septic shock, still on pressors today, concern for shock liver; LFTs improving but alk phos remains elevated. Abd incision looks a little better. Stop micafungin. Cxs neg except for single bcx with CoNS. Will continue to follow. Disclaimer This dictation was created using voice recognition software. Phonetic and/or minor grammatical errors may exist. eSign Date and Time Syeda Palmer MD Verified/Reviewed by 07/13/18 1244 CBC W/DIFF Collected: 07/13/2018 Status: F Source: [facility] 5:36 AM [facility] REPOSITORY Order Comment: [place]: M TYPE CODE TESTS RESULT OUT OF RANGE REFERENCE UNITS LAB L200.24374 4.5-11.0 K/CU MM WBC Normal 5.2 LAB L200.01474 3.90-5.30 M/CU MM Low RBC 3.39 LAB L200.16462 11.5-15.5 G/DL Low HGB 9.8 LAB L200.53991 35.0-47.0 % Low HCT 29.9 LAB L200.33530 80.0-99.0 fl MCV Normal 88.2 LAB L200.84874 32.0-36.0 GM/DL MCHC Normal 32.8 LAB L200.26216 11-14.5 High RDW 17.0 LAB L200.71750 9.4-12.4 MPV Normal 9.7 LAB L200.30338 150-450 K/CU MM PLT Normal 318 LAB L200.51138 45-75 % High NEUTROPHILS % 76.4 LAB L200.88874 Less than 2 % IMMATURE Normal GRAN % 1.4 LAB L200.32415 20-40 % Low LYMPH % 10.6 LAB L200.50357 2-10 % MONOCYTE % Normal 9.7 LAB L200.35012 0-5 % EOSINOPHIL Normal % 1.5 LAB L200.82890 0-2 % BASOPHIL % Normal 0.4 LAB L200.68808 2.0-8.3 K/CU MM NEUTROPHIL Normal ABS 4.00 LAB L200.79794 Less than 2 K/CU MM IMMATR GRAN Normal ABS 0.10 LAB L200.91231 0.9-4.4 K/CU MM Low LYMPH ABS 0.60 LAB L200.44414 0.1-1.1 K/CU MM MONO ABS Normal 0.50 LAB L200.40531 0-0.5 K/CU MM EOS ABS Normal 0.10 LAB L200.32691 0-0.2 K/CU MM BASO ABS Normal 0.00 LAB L200.89993 Less than 1 % NRBC Normal 0.0 Performed By: #### L200.28821 #### [facility] [address] [place] [address] PT Collected: 07/13/2018 Status: F Source: [facility] 5:36 AM [facility] REPOSITORY Order Comment: [place]: TYPE CODE TESTS RESULT OUT OF RANGE REFERENCE UNITS LAB L300.87110 0.9-1.1 High INR 4.46 Result Comment: Recommended PT INR therapeutic range for detention and prophylactic therapy is 2.0 - 3.0. For heart valve and shunt patients the range is 2.5 - 3.5. LAB L300.25532 9.5-12.0 SECONDS High 47.7 PTS Performed By: #### L300.96136 #### [facility] [address] [place] [address] CMP Collected: 07/13/2018 Status: F Source: [facility] 5:36 AM [facility] REPOSITORY Order Comment: [place]: M TYPE CODE TESTS RESULT OUT OF RANGE REFERENCE UNITS LAB L500.59909 136-145 MMOL/L Normal NA 136 LAB L500.55672 3.5-5.1 MMOL/L Normal K 3.6 LAB L500.76798 98-107 MMOL/L Normal CL 106 LAB L500.92017 21-32 MMOL/L Normal CO2 21 LAB L500.18937 5-16 MMOL/L Normal AGAP 10 LAB L500.71513 70-100 MG/DL High GLU 246 Result Comment: 70-100- Normal Fasting; 100-125 Impaired Fasting; greater than 126 on more than one result- Diabetes. ADA guidelines. Results may be falsely elevated after the administration of Sulfapyridine. Results may be falsely depressed after the administration of Sulfasalazine. LAB L500.83093 7-26 MG/DL High BUN 69 LAB L500.62604 0.510-0.950 MG/DL Normal CREAT 0.665 Result Comment: Patients receiving either N-Acetylcysteine (NAC) or Metamizole prior to venipuncture, may have falsely depressed results. LAB L500.78461 15-24 High BUN/CREA 103 LAB L500.89464 6.0-8.5 GM/DL Low TP 4.9 LAB L500.14599 3.2-5.0 GM/DL Low ALBUMIN 1.6 LAB L500.28074 2.2-4.2 GM/DL Normal GLOBULIN 3.3 LAB L500.59554 0.8-2.0 Low A/G RATIO 0.5 LAB L500.91238 8.5-10.1 MG/DL Low CALCIUM TOTAL 8.2 LAB L500.86261 0.2-1.0 MG/DL High BILI TOTAL 1.6 LAB L500.56683 8-34 U/L High SGOT (AST) 269 Result Comment: RESULTS MAY BE FALSELY DEPRESSED AFTER THE ADMINISTRATION OF SULFASALAZINE AND/OR SULFAPYRIDINE. LAB L500.87754 13-61 IU/L High SGPT (ALT) 539 Result Comment: RESULTS MAY BE FALSELY DEPRESSED AFTER THE ADMINISTRATION OF SULFASALAZINE AND/OR SULFAPYRIDINE. LAB L500.76697 45-117 U/L High ALK 1393 PHOS Performed By: #### L500.48572, L500.01399 #### [facility] [address] [place] [address] GFR EST Collected: 07/13/2018 Status: F Source: [facility] 5:36 AM [facility] REPOSITORY Order Comment: [place]: M TYPE CODE TESTS RESULT OUT OF RANGE REFERENCE UNITS LAB L500.14428 ML/MIN Normal IF non-AFR Greater than AMER 60 LAB L500.78437 ML/MIN Normal IF Greater than AMER 60 Performed By: #### L500.97427, L500.34831 #### [facility] [place] [address] PROG.NOTE Observed: 07/12/2018 Status: UNK Source: [facility] 10:25 AM [facility] REPOSITORY [facility] Patient Name: VENITA SMITH [address] [place] [address] Date of : [address] [address] Unit Number: [id number] Progress Note-Physician Patient Status: REG RCR Attending Doctor: Colette Sloan DO Service Date: 07/12/18 1025 Subjective S: (2 ROS minimum) Feeling better, BP improved, still on pressors. No abd pain. Objective (ROS) Physical Exam Neurological / Psychiatric Alert Respiratory Normal Breathing Effort, Clear Lungs Cardiovascular Heart RRR, No M / R / G Gastrointestinal Non Tender, No Mass Skin midline abd incision with redness, overall less drainage and swelling Assessment and Plan Conclusion 1. 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 No growth of MRSA. 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 AcB was I to minocycline per [facility] lab, but very limited other options. Discharged to [facility] for planned 6 week course but course has been extended. At [facility], taken for partial flap placement 05/31. Bone cx with ESBL ecoli, CRE klebs, E faecium, diphtheroids. No Acinetobacter seen. Wound worsened. 06/07 changed bactrim to vanc. Both CRE and ESBL still sensitive to tetracycline, but may need to add colistin eventually. Gen surg consulted; CT abd/pelvis showed fistula. Taken to OR 06/24 for resection and ostomy placement by Dr. Sanon. Sacral wound is overall much improved s /p ostomy and starting TPN. Has been on vanc, meropenem, and minocycline. Abd midline incision developed persistent inflammation and draining pus. Wound cx with heavy purulence, cx with VRE and CRE klebs. Now with additional sites of pus able to be expressed from incision. CT showed no deeper abscess. 07/10 stopped vanc and meropenem, started linezolid and vabomere for additional coverage. Continuing minocycline. 07/10 overnight developed septic shock, still on pressors today, concern for shock liver; LFTs improving. Abd incision looks a little better. Cont micafungin while bcx pending to cover for possible candidemia. Surgery to eval on Sunday per nursing. Will continue to follow. D/w wound nurse. Disclaimer This dictation was created using voice recognition software. Phonetic and/or minor grammatical errors may exist. eSign Date and Time Syeda Palmer MD Verified/Reviewed by 07/12/18 1028 CBC Collected: 07/12/2018 Status: F Source: [facility] 4:12 AM [facility] REPOSITORY Order Comment: [place]: M TYPE CODE TESTS RESULT OUT OF RANGE REFERENCE UNITS LAB L200.07618 4.5-11.0 K/CU MM Normal WBC 7.4 LAB L200.16798 3.90-5.30 M/CU MM Low RBC 3.54 LAB L200.30484 11.5-15.5 G/DL Low HGB 10.3 LAB L200.68374 35.0-47.0 % Low HCT 31.1 LAB L200.98901 80.0-99.0 fl Normal MCV 87.9 LAB L200.15175 32.0-36.0 GM/DL Normal MCHC 33.1 LAB L200.12968 11-14.5 High RDW 16.7 LAB L200.95186 9.4-12.4 Normal MPV 9.6 LAB L200.00466 150-450 K/CU MM Normal PLT 328 LAB L200.84640 Less than 1 % Normal NRBC 0.0 Performed By: #### L200.37981 #### [facility] [address] [place] [address] PT Collected: 07/12/2018 Status: F Source: [facility] 4:12 AM [facility] REPOSITORY Order Comment: [place]: M TYPE CODE TESTS RESULT OUT OF RANGE REFERENCE UNITS LAB L300.88543 0.9-1.1 High INR 3.49 Result Comment: 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 For heart valve and shunt patients the range is 2.5 - 3.5. LAB L300.11692 9.5-12.0 SECONDS High 37.3 PTS Performed By: #### L300.96971 #### [facility] [address] [place] [address] CMP Collected: 07/12/2018 Status: F Source: [facility] 4:12 AM [facility] REPOSITORY Order Comment: [place]: M TYPE CODE TESTS RESULT OUT OF RANGE REFERENCE UNITS LAB L500.44448 136-145 MMOL/L Normal NA 136 LAB L500.73669 3.5-5.1 MMOL/L Normal K 3.9 LAB L500.61499 98-107 MMOL/L Normal CL 104 LAB L500.62738 21-32 MMOL/L Low CO2 19 LAB L500.51465 5-16 MMOL/L Normal AGAP 13 LAB L500.97163 70-100 MG/DL High GLU 193 Result Comment: 70-100- Normal Fasting; 100-125 Impaired Fasting; greater than 126 on more than one result- Diabetes. ADA guidelines. Results may be falsely elevated after the administration of Sulfapyridine. Results may be falsely depressed after the administration of Sulfasalazine. LAB L500.08728 7-26 MG/DL High BUN 72 LAB L500.80201 0.510-0.950 MG/DL Normal CREAT 0.722 Result Comment: Patients receiving either N-Acetylcysteine (NAC) or Metamizole prior to venipuncture, may have falsely depressed results. LAB L500.52996 15-24 High BUN/CREA 99 LAB L500.78996 6.0-8.5 GM/DL Low TP 5.2 LAB L500.86821 3.2-5.0 GM/DL Low ALBUMIN 1.7 LAB L500.63299 2.2-4.2 GM/DL Normal GLOBULIN 3.5 LAB L500.34721 0.8-2.0 Low A/G RATIO 0.5 LAB L500.51184 8.5-10.1 MG/DL Normal CALCIUM TOTAL 8.5 LAB L500.79730 0.2-1.0 MG/DL High BILI TOTAL 1.7 LAB L500.44995 8-34 U/L High SGOT (AST) 308 Result Comment: RESULTS MAY BE FALSELY DEPRESSED AFTER THE ADMINISTRATION OF SULFASALAZINE AND/OR SULFAPYRIDINE. LAB L500.37079 13-61 IU/L High SGPT (ALT) 768 Result Comment: RESULTS MAY BE FALSELY DEPRESSED AFTER THE ADMINISTRATION OF SULFASALAZINE AND/OR SULFAPYRIDINE. LAB L500.83532 45-117 U/L High ALK 1223 PHOS Performed By: #### L500.45481, L500.46121 #### [facility] [address] [place] [address] GFR EST Collected: 07/12/2018 Status: F Source: [facility] 4:12 AM [facility] REPOSITORY Order Comment: [place]: M TYPE CODE TESTS RESULT OUT OF RANGE REFERENCE UNITS LAB L500.28024 ML/MIN Normal IF non-AFR Greater than AMER 60 LAB L500.44155 ML/MIN Normal IF Greater than AMER 60 Performed By: #### L500.45450, L500.71040 #### [facility] [address] [place] [address] TROPONIN I Collected: 07/11/2018 Status: F Source: [facility] 4:45 PM [facility] REPOSITORY Order Comment: [place]: M TYPE CODE TESTS RESULT OUT OF RANGE REFERENCE UNITS LAB L550.36592 0.000-0.045 NG/ML Normal TROPONIN I 0.025 Performed By: #### L550.94786 #### [facility] [address] [place] [address] PROG.NOTE Observed: 07/11/2018 Status: UNK Source: [facility] 12:15 PM [facility] [place] [facility] Patient Name: STREET,VENITA M [address] [facility] [address] Date of : [address] [place] [address] Unit Number: [id number] Progress Note-Physician Patient Status: REG RCR Attending Doctor: Colette Sloan DO Service Date: 07/11/18 1215 Subjective S: (2 ROS minimum) New septic shock, still requiring pressors. Feeling better this AM, bp improved, abd pain improved. Objective (ROS) Physical Exam Neurological / Psychiatric Alert Respiratory Normal Breathing Effort, Clear Lungs Cardiovascular tachy Gastrointestinal Non Tender, No Mass Skin abd incision with some purulence, overall less red and swollen today. Unable to express pus from superior portion today. Assessment and Plan Conclusion 1. 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 No growth of MRSA. 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 AcB was I to minocycline per [facility] micro lab, but very limited other options. Discharged to [facility] for planned 6 week course but course has been extended. At [facility], taken for partial flap placement 05/31. Bone cx with ESBL ecoli, CRE klebs, E faecium, diphtheroids. No Acinetobacter seen. Wound worsened. 06/07 changed bactrim to vanc. Both CRE and ESBL still sensitive to tetracycline, but may need to add colistin eventually. Gen surg consulted; CT abd/pelvis showed fistula. Taken to OR 06/24 for resection and ostomy placement by Dr. Sanon. Sacral wound is overall much improved s /p ostomy and starting TPN. Has been on vanc, meropenem, and minocycline. Abd midline incision developed persistent inflammation and draining pus. Wound cx with heavy purulence, cx with VRE and CRE klebs. Now with additional sites of pus able to be expressed from incision. CT showed no deeper abscess. 07/10 stopped vanc and meropenem, started linezolid and vabomere for additional coverage. Continuing minocycline. Last night developed septic shock, still on pressors today, concern for shock liver. Abd incision looks a little better, concern for other potential sources of infection including TPN. Will start micafungin while bcx pending to cover for possible candidemia. Surgery to be contacted about incision infection and new shock. Will continue to follow. D/w wound nurse. Disclaimer This dictation was created using voice recognition software. Phonetic and/or minor grammatical errors may exist. eSign Date and Time Syeda Palmer MD Verified/Reviewed by 07/11/18 1218 TROPONIN I Collected: 07/11/2018 Status: F Source: [facility] 10:41 AM [facility] REPOSITORY Order Comment: [place]: M TYPE CODE TESTS RESULT OUT OF RANGE REFERENCE UNITS LAB L550.48470 0.000-0.045 NG/ML Normal TROPONIN I 0.033 Performed By: #### L550.50962 #### [facility] [address] [place] [address] UA COMPLETE Collected: 07/11/2018 Status: F Source: [facility] 7:34 AM [facility] REPOSITORY Order Comment: [place]: M TYPE CODE TESTS RESULT OUT OF REFERENCE UNITS RANGE LAB L600.43680 UA COLOR Normal Rachel LAB L600.62606 CLEAR UA Normal APPEARANCE Turbid LAB L600.99041 1.005-1.030 UA SPEC Normal GRAV 1.019 LAB L600.41956 UA PH Normal 5.0 LAB L600.34049 UA GLUCOSE Normal 50 LAB L600.22714 UA KETONE Normal 5 LAB L600.47815 UA Normal BILIRUBIN NEGATIVE LAB L600.31069 UA Normal UROBILINOGEN NEG LAB L600.74263 NEGATIVE UA PROTEIN Normal 100 LAB L600.27714 NEGATIVE UA BLOOD Normal MOD LAB L600.79992 NEGATIVE UA NITRITE Normal NEGATIVE LAB L600.48455 NEGATIVE UA LK Normal ESTERASE 500 LAB L600.03568 0-5 WBC/HPF UA WBC High 952 LAB L600.01664 0-3 RBC/HPF UA RBC High 47 LAB L600.89596 0-5 EPI/HPF SQUAMOUS Normal EPIS 2 LAB L600.70340 NONE /HPF UA BACTERIA Normal 1+ LAB L600.71443 MUCUS Normal TRACE LAB L600.43496 NONE /HPF UA YEAST Normal MANY LAB L600.36041 HPF WBC CLUMPS Normal MANY Performed By: #### L600.54146 #### [facility] [address] [place] [address] Observed: 07/11/2018 Status: F Source: [facility] URINE CULTURE 7:34 AM [facility] REPOSITORY Order Comment: [place]: M ORGANISM 1: LESLI ALBICANS COLONY COUNT >100,000 Performed By: #### M100.45684 #### [facility] [address] [place] [address] Observed: 07/11/2018 Status: F Source: [facility] BLOOD CULTURE 5:40 AM [facility] REPOSITORY Order Comment: [place]: M : BLOOD CULTURES X2 INITIAL POSITIVE BLOOD CULTURE RESULTS CALLED TO AND READ BACK BY Jeison JUSTICE/Efraín AT 1130 07/12/18 BY DELVIS MALLOY ORGANISM 1: STAPHYLOCOCCUS EPIDERMIDIS STAPHYLOCOCCUS EPIDERMIDIS: REACTION AMPICILLIN 8 R AMP/SULBACTAM (UNASYN) <8/4 R AUGMENTIN (AMOX/K CLVULANATE) >4/2 R CEFAZOLIN <8 R CHLORAMPHENICOL <8 S CLINDAMYCIN <0.5 S ERYTHROMYCIN <0.5 S GENTAMICIN >8 R IMIPENEM >8 R LINEZOLID <1 S OXACILLIN >2 R PENICILLIN 8 R RIFAMPIN <1 S TETRACYCLINE <4 S TRIMETH/SULFA >2/38 R VANCOMYCIN 2 S LEVOFLOXACIN >4 N/R MEROPENEM >8 R DAPTOMYCIN <0.5 S MOXIFLOXACIN 4 I Performed By: #### M050.84746 #### [facility] [address] [place] [address] BCID PCR Collected: 07/11/2018 Status: F Source: [facility] 5:40 AM [facility] REPOSITORY TYPE CODE TESTS RESULT OUT OF REFERENCE UNITS RANGE LAB L770.24687 NOT DETECTD BC Normal ENTEROCOCCUS NOT DETECTED LAB L770.16448 NOT DETECTD BC VAN A/B Normal NOT DETECTED LAB L770.46662 NOT DETECTD BC LISTERIA Normal NOT DETECTED LAB L770.05171 NOT DETECTD BC STAPH High SPE. DETECTED Result Comment: CRITICAL VALUE(S) VERIFIED AND CALLED TO AND READ BACK BY Bola WETZEL/PHARMACIST AT 1258 07/12/18 BY DELVIS MALLOY LAB L770.28103 NOT DETECTD BC STAPH Normal AUREUS NOT DETECTED LAB L770.57124 NOT DETECTD BC MEC A High DETECTED LAB L770.34345 NOT DETECTD BC Normal STREPTOCOCCU NOT DETECTED LAB L770.46552 NOT DETECTD BC BETA STREP Normal B NOT DETECTED LAB L770.48111 NOT DETECTD BC STREP Normal PNEUMO NOT DETECTED LAB L770.02274 NOT DETECTD BC BETA STREP Normal A NOT DETECTED LAB L770.33728 NOT DETECTD BC Normal ACINETOBACTE NOT DETECTED LAB L770.21598 NOT DETECTD ENTEROBACEAE Normal SP NOT DETECTED LAB L770.11349 NOT DETECTD BC ENTER Normal CLOACA NOT DETECTED LAB L770.58973 NOT DETECTD BC E COLI Normal NOT DETECTED LAB L770.16912 NOT DETECTD BC KLEB Normal OXYTOCA NOT DETECTED LAB L770.41822 NOT DETECTD BC KLEB PNEUMO Normal NOT DETECTED LAB L770.52618 NOT DETECTD BC KPC Normal NOT DETECTED LAB L770.32933 NOT DETECTD BC PROTEUS SP. Normal NOT DETECTED LAB L770.16658 NOT DETECTD BC SERRATIA Normal MAR NOT DETECTED LAB L770.37847 NOT DETECTD BC H.INFLUENZA Normal NOT DETECTED LAB L770.63420 NOT DETECTD BC N Normal MENINGITID NOT DETECTED LAB L770.12968 NOT DETECTD BC PSEUDO Normal AERUG NOT DETECTED LAB L770.22372 NOT DETECTD BC C ALBICANS Normal NOT DETECTED LAB L770.82600 NOT DETECTD BC C GLABRATA Normal NOT DETECTED LAB L770.89842 NOT DETECTD BC C KRUSEI Normal NOT DETECTED LAB L770.24496 NOT DETECTD BC C Normal PARAPSILOS NOT DETECTED LAB L770.63270 NOT DETECTD BC C Normal TROPICALIS NOT DETECTED Performed By: #### L770.59432 #### [facility] [address] [place] [address] LACTIC ACID Collected: 07/11/2018 Status: F Source: [facility] 5:06 AM [facility] REPOSITORY Order Comment: [place]: M TYPE CODE TESTS RESULT OUT OF RANGE REFERENCE UNITS LAB L550.94732 0.40-2.00 MMOL/L Normal LACTIC ACID 1.82 Performed By: #### L550.08778 #### [facility] [address] [place] [address] TROPONIN I Collected: 07/11/2018 Status: F Source: [facility] 5:06 AM [facility] REPOSITORY Order Comment: [place]: M TYPE CODE TESTS RESULT OUT OF RANGE REFERENCE UNITS LAB L550.06097 0.000-0.045 NG/ML Normal TROPONIN I 0.041 Performed By: #### L550.31919 #### [facility] [address] [place] [address] PROCALCITONIN Collected: 07/11/2018 Status: F Source: [facility] 5:06 AM [facility] REPOSITORY Order Comment: [place]: M TYPE CODE TESTS RESULT OUT OF REFERENCE UNITS RANGE LAB L550.16077 0.00-0.50 NG/ML PROCALCITONIN High 41.19 Result Comment: PCT CONCENTRATION INTERPRETATION PCT <= 0.5 NG/ML: SYSTEMIC INFECTION (SEPSIS) IS NOT LIKELY. LOCAL BACTERIAL INFECTION IS POSSIBLE. PCT >0.5 AND <= 2.0 NG/ML: SYSTEMIC INFECTION (SEPSIS) IS POSSIBLE, BUT OTHER CONDITIONS ARE KNOWN TO ELEVATE PCT WELL. PCT >2.0 NG/ML: SYSTEMIC INFECTION (SEPSIS) IS LIKELY UNLESS OTHER CAUSES ARE KNOWN. PCT >= 10.0 NG/ML: IMPORTANT SYSTEMIC INFLAMMATORY RESPONSE, ALMOST EXCLUSIVELY DUE TO SEVERE BACTERIAL SEPSIS OR SEPTIC SHOCK Performed By: #### L550.55346 #### [facility] [address] [place] [address] Observed: 07/11/2018 Status: F Source: [facility] BLOOD CULTURE 5:05 AM [facility] REPOSITORY Order Comment: [place]: M : BLOOD CULTURES X2 NO GROWTH AFTER 5 DAYS Performed By: #### M050.50596 #### [facility] [address] [place] [address] CBC W/DIFF Collected: 07/11/2018 Status: F Source: [facility] 4:48 AM [facility] REPOSITORY Order Comment: [place]: M TYPE CODE TESTS RESULT OUT OF RANGE REFERENCE UNITS LAB L200.04529 4.5-11.0 K/CU MM High WBC 23.0 LAB L200.03670 3.90-5.30 M/CU MM Low RBC 3.38 LAB L200.82241 11.5-15.5 G/DL Low HGB 10.0 LAB L200.60954 35.0-47.0 % Low HCT 30.9 LAB L200.54907 80.0-99.0 fl MCV Normal 91.4 LAB L200.00568 32.0-36.0 GM/DL MCHC Normal 32.4 LAB L200.70760 11-14.5 High RDW 16.8 LAB L200.29105 9.4-12.4 MPV Normal 9.5 LAB L200.85015 150-450 K/CU MM PLT Normal 325 LAB L200.46586 45-75 % High NEUTROPHILS % 88.5 LAB L200.58247 Less than 2 % IMMATURE Normal GRAN % 1.9 LAB L200.10161 20-40 % Low LYMPH % 3.1 LAB L200.29737 2-10 % MONOCYTE % Normal 5.9 LAB L200.89167 0-5 % EOSINOPHIL Normal % 0.3 LAB L200.46528 0-2 % BASOPHIL % Normal 0.3 LAB L200.47660 2.0-8.3 K/CU MM High NEUTROPHIL ABS 20.40 LAB L200.80034 Less than 2 K/CU MM IMMATR GRAN Normal ABS 0.40 LAB L200.34374 0.9-4.4 K/CU MM Low LYMPH ABS 0.70 LAB L200.24818 0.1-1.1 K/CU MM High MONO ABS 1.40 LAB L200.58288 0-0.5 K/CU MM EOS ABS Normal 0.10 LAB L200.95427 0-0.2 K/CU MM BASO ABS Normal 0.10 LAB L200.23079 Less than 1 % NRBC Normal 0.0 Performed By: #### L200.51422 #### [facility] [address] [place] [address] PT Collected: 07/11/2018 Status: F Source: [facility] 4:48 AM [facility] REPOSITORY Order Comment: [place]: TYPE CODE TESTS RESULT OUT OF RANGE REFERENCE UNITS LAB L300.84298 0.9-1.1 High INR 2.05 Result Comment: Recommended PT INR therapeutic range for detention and prophylactic therapy is 2.0 - 3.0. For heart valve and shunt patients the range is 2.5 - 3.5. LAB L300.33612 9.5-12.0 SECONDS High 21.9 PTS Performed By: #### L300.75973 #### [facility] [address] [place] [address] CMP Collected: 07/11/2018 Status: F Source: [facility] 4:47 AM [facility] REPOSITORY Order Comment: [place]: TYPE CODE TESTS RESULT OUT OF RANGE REFERENCE UNITS LAB L500.34941 136-145 MMOL/L Normal NA 137 LAB L500.99109 3.5-5.1 MMOL/L Normal K 4.2 LAB L500.01973 98-107 MMOL/L Normal CL 103 LAB L500.98080 21-32 MMOL/L Low CO2 20 LAB L500.02110 5-16 MMOL/L Normal AGAP 14 LAB L500.22599 70-100 MG/DL High GLU 145 Result Comment: 70-100- Normal Fasting; 100-125 Impaired Fasting; greater than 126 on more than one result- Diabetes. ADA guidelines. Results may be falsely elevated after the administration of Sulfapyridine. Results may be falsely depressed after the administration of Sulfasalazine. LAB L500.41441 7-26 MG/DL High BUN 66 LAB L500.03980 0.510-0.950 MG/DL Normal CREAT 0.819 Result Comment: Patients receiving either N-Acetylcysteine (NAC) or Metamizole prior to venipuncture, may have falsely depressed results. LAB L500.11146 15-24 High BUN/CREA 80 LAB L500.64492 6.0-8.5 GM/DL Low TP 4.9 LAB L500.60177 3.2-5.0 GM/DL Low ALBUMIN 1.7 LAB L500.09545 2.2-4.2 GM/DL Normal GLOBULIN 3.2 LAB L500.71098 0.8-2.0 Low A/G RATIO 0.6 LAB L500.55742 8.5-10.1 MG/DL Normal CALCIUM TOTAL 8.8 LAB L500.90283 0.2-1.0 MG/DL High BILI TOTAL 1.2 LAB L500.06107 8-34 U/L High SGOT (AST) 1123 Result Comment: RESULTS MAY BE FALSELY DEPRESSED AFTER THE ADMINISTRATION OF SULFASALAZINE AND/OR SULFAPYRIDINE. LAB L500.49601 13-61 IU/L High SGPT 1361 (ALT) Result Comment: RESULTS MAY BE FALSELY DEPRESSED AFTER THE ADMINISTRATION OF SULFASALAZINE AND/OR SULFAPYRIDINE. LAB L500.88696 45-117 U/L High ALK 1106 PHOS Performed By: #### L500.52656, L500.09717, L500.66273, L500.04108 #### [facility] [address] [place] [address] GFR EST Collected: 07/11/2018 Status: F Source: [facility] 4:47 AM [facility] REPOSITORY Order Comment: [place]: M TYPE CODE TESTS RESULT OUT OF RANGE REFERENCE UNITS LAB L500.56716 ML/MIN Normal IF non-AFR Greater than AMER 60 LAB L500.63737 ML/MIN Normal IF Greater than AMER 60 Performed By: #### L500.24166, L500.83420, L500.13092, L500.70141 #### [facility] [address] [place] [address] PHOS Collected: 07/11/2018 Status: F Source: [facility] 4:47 AM [facility] REPOSITORY Order Comment: [place]: M TYPE CODE TESTS RESULT OUT OF RANGE REFERENCE UNITS LAB L500.86942 2.5-4.9 MG/DL Normal PHOS 3.9 Performed By: #### L500.57962, L500.96852, L500.02050, L500.86443 #### [facility] [address] [place] [address] MAGNESIUM Collected: 07/11/2018 Status: F Source: [facility] 4:47 AM [facility] REPOSITORY Order Comment: [place]: M TYPE CODE TESTS RESULT OUT OF RANGE REFERENCE UNITS LAB L500.62291 1.6-2.6 MG/DL Normal MAGNESIUM 2.0 Performed By: #### L500.12680, L500.99377, L500.41863, L500.62887 #### [facility] [address] [place] [address] PROG.NOTE Observed: 07/10/2018 Status: UNK Source: [facility] 2:39 PM [facility] [place] REPOSITORY [facility] Patient Name: VENITA SMITH [address] Date of : [address] [address] Unit Number: [id number] Progress Note-Physician Patient Status: REG RCR Attending Doctor: Colette Sloan DO Service Date: 07/10/18 1218 Subjective S: (2 ROS minimum) Feeling ok, no fever, no abd pain. Objective (ROS) Physical Exam Neurological / Psychiatric Alert Respiratory Normal Breathing Effort, Clear Lungs Cardiovascular Heart RRR, No M / R / G Gastrointestinal Non Tender, No Mass Skin midline abd incision with purulence of middle part, now able to express as well from superior aspect. Assessment and Plan Conclusion 1. 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 No growth of MRSA. 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 AcB was I to minocycline per [facility] micro lab, but very limited other options. Discharged to [facility] for planned 6 week course but course has been extended. At [facility], taken for partial flap placement 05/31. Bone cx with ESBL ecoli, CRE klebs, E faecium, diphtheroids. No Acinetobacter seen. Wound worsened. 06/07 changed bactrim to vanc. Both CRE and ESBL still sensitive to tetracycline, but may need to add colistin eventually. Gen surg consulted; CT abd/pelvis showed fistula. Taken to OR 06/24 for resection and ostomy placement by Dr. Sanon. Sacral wound is overall much improved s /p ostomy and starting TPN. Has been on vanc, meropenem, and minocycline. Abd midline incision now with persistent inflammation and draining pus. Wound cx with heavy purulence, cx with VRE and CRE klebs. Now with additional sites of pus able to be expressed from incision. CT showed no deeper abscess. Recommend surgical IandD to help with drainage. Will stop vanc and meropenem. Start linezolid and vabomere for additional coverage. Will continue to follow. D/w wound nurse. Disclaimer This dictation was created using voice recognition software. Phonetic and/or minor grammatical errors may exist. eSign Date and Time Syeda Palmer MD Verified/Reviewed by 07/10/18 1441 VANC TROUGH Collected: 07/09/2018 Status: F Source: [facility] 2:56 PM [facility] REPOSITORY Order Comment: [place]: M TYPE CODE TESTS RESULT OUT OF RANGE REFERENCE UNITS LAB L520.05828 15.0-20.0 MCG/ML Normal VANC TROUGH 16.1 Performed By: #### L520.84041 #### [facility] [address] [place] [address] PROG.NOTE Observed: 07/09/2018 Status: UNK Source: [facility] 1:10 PM [facility] [place] REPOSITORY [facility] Patient Name: VENITA SMITH [address] [place] [address] Date of : [address] [place] [address] Unit Number: [id number] Progress Note-Physician Patient Status: REG RCR Attending Doctor: Colette Sloan DO Service Date: 07/09/18 1310 Subjective S: (2 ROS minimum) Feeling ok, says she's tired. No fever. Objective (ROS) Physical Exam Neurological / Psychiatric Alert Respiratory Normal Breathing Effort, Clear Lungs Cardiovascular Heart RRR, No M / R / G Gastrointestinal Non Tender, No Mass Skin able to express some pus from midline abd incision Assessment and Plan Conclusion 1. 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 No growth of MRSA. 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 AcB was I to minocycline per [facility] micro lab, but very limited other options. Discharged to [facility] for planned 6 week course but course has been extended. At [facility], taken for partial flap placement 05/31. Bone cx with ESBL ecoli, CRE klebs, E faecium, diphtheroids. No Acinetobacter seen. Wound worsened. 06/07 changed bactrim to vanc. Both CRE and ESBL still sensitive to tetracycline, but may need to add colistin eventually. Gen surg consulted; CT abd/pelvis showed fistula. Taken to OR 06/24 for resection and ostomy placement by Dr. Sanon. D/w wound nurse, sacral wound is overall much improved s/p ostomy and starting TPN. Continue vanc, meropenem, and minocycline. Pending vanc level. Abd midline incision now with persistent inflammation and draining pus. Wound cx with heavy purulence, cx with GPC and CRE Klebsiella. Given recent surgery and wound cx with stool nicole, concern for deeper involvement. Recommend surgical eval and will order CT scan. Spoke with micro lab and requested susceptibility testing for Avycaz, vabomere, and colistin on this CRE klebs. Will continue to follow. D/w wound nurse. Disclaimer This dictation was created using voice recognition software. Phonetic and/or minor grammatical errors may exist. eSign Date and Time Syeda Palmer MD Verified/Reviewed by 07/09/18 1312 PT Collected: 07/09/2018 Status: F Source: [facility] 4:09 AM [facility] REPOSITORY Order Comment: [place]: TYPE CODE TESTS RESULT OUT OF RANGE REFERENCE UNITS LAB L300.53231 0.9-1.1 High INR 1.41 Result Comment: Recommended PT INR therapeutic range for detention and prophylactic therapy is 2.0 - 3.0. For heart valve and shunt patients the range is 2.5 - 3.5. LAB L300.39267 9.5-12.0 SECONDS High 15.1 PTS Performed By: #### L300.32534 #### [facility] [address] [place] [address] PROG.NOTE Observed: 07/08/2018 Status: UNK Source: [facility] 4:15 PM [facility] REPOSITORY [facility] Patient Name: VENITA SMITH [address] [place] [address] Date of : [address] [place] [address] Unit Number: [id number] Progress Note-Physician Patient Status: REG RCR Attending Doctor: Colette Sloan DO Service Date: 07/08/18 1615 Subjective S: (2 ROS minimum) Feeling ok, no fever, mild abd soreness. Objective (ROS) Physical Exam Neurological / Psychiatric Alert Respiratory Normal Breathing Effort, Clear Lungs Cardiovascular Heart RRR, No M / R / G Gastrointestinal Non Tender, abd incision with swelling, fluctuance, and redness with pus able to be expressed Assessment and Plan Conclusion 1. 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 No growth of MRSA. 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 AcB was I to minocycline per [facility] micro lab, but very limited other options. Discharged to [facility] for planned 6 week course but course has been extended. At [facility], taken for partial flap placement 05/31. Bone cx with ESBL ecoli, CRE klebs, E faecium, diphtheroids. No Acinetobacter seen. Wound worsened. 06/07 changed bactrim to vanc. Both CRE and ESBL still sensitive to tetracycline, but may need to add colistin eventually. Gen surg consulted; CT abd/pelvis showed fistula. Taken to OR 06/24 for resection and ostomy placement by Dr. Sanon. D/w wound nurse, sacral wound is overall much improved s/p ostomy and starting TPN. Continue vanc, meropenem, and minocycline. Pending vanc level tomorrow. Abd midline incision now with inflammation and draining pus. Nursing to page surgery. Wound cx with heavy purulence, cx with GPC, GNR, and GNR. Will continue to follow. D/w wound nurse. Disclaimer This dictation was created using voice recognition software. Phonetic and/or minor grammatical errors may exist. eSign Date and Time Syeda Palmer MD Verified/Reviewed by 07/08/18 1620 PT Collected: 07/08/2018 Status: F Source: [facility] 6:59 AM [facility] [facility] Order Comment: REDRAW; 0545 SPECIMEN DRAWN BY LAB WAS ONLY 1/2 FULL TYPE CODE TESTS RESULT OUT OF RANGE REFERENCE UNITS LAB L300.35849 0.9-1.1 High INR 1.21 Result Comment: 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 For heart valve and shunt patients the range is 2.5 - 3.5. LAB L300.36033 9.5-12.0 SECONDS High 13.0 PTS Performed By: #### L300.35983 #### [facility] [address] [place] [address] CBC W/DIFF Collected: 07/08/2018 Status: F Source: [facility] 5:43 AM [facility] REPOSITORY Order Comment: [place]: TYPE CODE TESTS RESULT OUT OF RANGE REFERENCE UNITS LAB L200.57062 4.5-11.0 K/CU MM WBC Normal 6.9 LAB L200.50379 3.90-5.30 M/CU MM Low RBC 3.27 LAB L200.17060 11.5-15.5 G/DL Low HGB 9.7 LAB L200.50564 35.0-47.0 % Low HCT 29.3 LAB L200.70338 80.0-99.0 fl MCV Normal 89.6 LAB L200.47747 32.0-36.0 GM/DL MCHC Normal 33.1 LAB L200.83685 11-14.5 High RDW 16.3 LAB L200.28224 9.4-12.4 MPV Normal 9.4 LAB L200.50023 150-450 K/CU MM PLT Normal 270 LAB L200.70465 45-75 % NEUTROPHILS Normal % 73.5 LAB L200.82387 Less than 2 % IMMATURE Normal GRAN % 1.6 LAB L200.87533 20-40 % Low LYMPH % 13.7 LAB L200.43806 2-10 % MONOCYTE % Normal 9.7 LAB L200.80754 0-5 % EOSINOPHIL Normal % 0.9 LAB L200.68553 0-2 % BASOPHIL % Normal 0.6 LAB L200.76216 2.0-8.3 K/CU MM NEUTROPHIL Normal ABS 5.10 LAB L200.87265 Less than 2 K/CU MM IMMATR GRAN Normal ABS 0.10 LAB L200.70410 0.9-4.4 K/CU MM LYMPH ABS Normal 1.00 LAB L200.77056 0.1-1.1 K/CU MM MONO ABS Normal 0.70 LAB L200.71874 0-0.5 K/CU MM EOS ABS Normal 0.10 LAB L200.81343 0-0.2 K/CU MM BASO ABS Normal 0.00 LAB L200.59628 Less than 1 % NRBC Normal 0.0 Performed By: #### L200.82421 #### [facility] [address] [place] [address] CMP Collected: 07/08/2018 Status: F Source: [facility] 5:43 [facility] REPOSITORY Order Comment: [place]: M : \ TYPE CODE TESTS RESULT OUT OF RANGE REFERENCE UNITS LAB L500.38259 136-145 MMOL/L Normal NA 137 LAB L500.01225 3.5-5.1 MMOL/L Normal K 4.7 LAB L500.78274 98-107 MMOL/L Normal CL 105 LAB L500.70152 21-32 MMOL/L Normal CO2 22 LAB L500.17019 5-16 MMOL/L Normal AGAP 10 LAB L500.29302 70-100 MG/DL High GLU 182 Result Comment: 70-100- Normal Fasting; 100-125 Impaired Fasting; greater than 126 on more than one result- Diabetes. ADA guidelines. Results may be falsely elevated after the administration of Sulfapyridine. Results may be falsely depressed after the administration of Sulfasalazine. LAB L500.94379 7-26 MG/DL High BUN 50 LAB L500.64767 0.510-0.950 MG/DL Low CREAT 0.399 Result Comment: Patients receiving either N-Acetylcysteine (NAC) or Metamizole prior to venipuncture, may have falsely depressed results. LAB L500.52010 15-24 High BUN/CREA 125 LAB L500.34476 6.0-8.5 GM/DL Low TP 5.1 LAB L500.04868 3.2-5.0 GM/DL Low ALBUMIN 1.6 LAB L500.93466 2.2-4.2 GM/DL Normal GLOBULIN 3.5 LAB L500.81120 0.8-2.0 Low A/G RATIO 0.5 LAB L500.21475 8.5-10.1 MG/DL Normal CALCIUM TOTAL 8.8 LAB L500.61012 0.2-1.0 MG/DL Normal BILI TOTAL 0.2 LAB L500.86127 8-34 U/L Normal SGOT (AST) 18 Result Comment: RESULTS MAY BE FALSELY DEPRESSED AFTER THE ADMINISTRATION OF SULFASALAZINE AND/OR SULFAPYRIDINE. LAB L500.49469 13-61 IU/L Normal SGPT (ALT) 26 Result Comment: RESULTS MAY BE FALSELY DEPRESSED AFTER THE ADMINISTRATION OF SULFASALAZINE AND/OR SULFAPYRIDINE. LAB L500.14894 45-117 U/L High ALK PHOS 135 Performed By: #### L500.01682, L500.35938, L500.51502, L500.37582, L500.35177 #### [facility] [address] [place] [address] GFR EST Collected: 07/08/2018 Status: F Source: [facility] 5:43 AM [facility] REPOSITORY Order Comment: [place]: M : \ TYPE CODE TESTS RESULT OUT OF RANGE REFERENCE UNITS LAB L500.39355 ML/MIN Normal IF non-AFR Greater than AMER 60 LAB L500.07744 ML/MIN Normal IF Greater than AMER 60 Performed By: #### L500.31397, L500.96033, L500.43480, L500.31398, L500.73687 #### [facility] [address] [place] [address] PHOS Collected: 07/08/2018 Status: F Source: [facility] 5:43 AM [facility] REPOSITORY Order Comment: [place]: M : \ TYPE CODE TESTS RESULT OUT OF RANGE REFERENCE UNITS LAB L500.62812 2.5-4.9 MG/DL Normal PHOS 4.1 Performed By: #### L500.82384, L500.08709, L500.75796, L500.51153, L500.27931 #### [facility] [address] [place] [address] MAGNESIUM Collected: 07/08/2018 Status: F Source: [facility] 5:43 AM [facility] REPOSITORY Order Comment: [place]: M : \ TYPE CODE TESTS RESULT OUT OF RANGE REFERENCE UNITS LAB L500.78804 1.6-2.6 MG/DL Normal MAGNESIUM 2.1 Performed By: #### L500.30648, L500.33606, L500.87943, L500.01888, L500.26365 #### [facility] [address] [place] [address] TRIG Collected: 07/08/2018 Status: F Source: [facility] 5:43 AM [facility] REPOSITORY Order Comment: [place]: M : \ TYPE CODE TESTS RESULT OUT OF RANGE REFERENCE UNITS LAB L500.89878 30-149 MG/DL High TRIG 194 Result Comment: Patients receiving either N-Acetylcysteine (NAC) or Metamizole prior to venipuncture, may have falsely depressed results. Performed By: #### L500.17459, L500.46069, L500.59286, L500.45812, L500.29336 #### [facility] [address] [place] [address] PT Collected: 07/07/2018 Status: F Source: [facility] 4:39 AM [facility] REPOSITORY Order Comment: [place]: M TYPE CODE TESTS RESULT OUT OF RANGE REFERENCE UNITS LAB L300.96814 0.9-1.1 Normal INR 1.09 Result Comment: 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 For heart valve and shunt patients the range is 2.5 - 3.5. LAB L300.61002 9.5-12.0 SECONDS Normal PTS 11.7 Performed By: #### L300.33279 #### [facility] [address] [place] [address] PT Collected: 07/06/2018 Status: F Source: [facility] 5:19 AM [facility] REPOSITORY Order Comment: [place]: M TYPE CODE TESTS RESULT OUT OF RANGE REFERENCE UNITS LAB L300.64056 0.9-1.1 Normal INR 1.03 Result Comment: 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 For heart valve and shunt patients the range is 2.5 - 3.5. LAB L300.87947 9.5-12.0 SECONDS Normal PTS 11.0 Performed By: #### L300.26761 #### [facility] [address] [place] [address] CBC W/DIFF Collected: 07/06/2018 Status: F Source: [facility] 5:19 AM [facility] REPOSITORY Order Comment: [place]: M TYPE CODE TESTS RESULT OUT OF RANGE REFERENCE UNITS LAB L200.74358 4.5-11.0 K/CU MM WBC Normal 9.2 LAB L200.28693 3.90-5.30 M/CU MM Low RBC 3.40 LAB L200.90899 11.5-15.5 G/DL Low HGB 9.9 LAB L200.42032 35.0-47.0 % Low HCT 29.2 LAB L200.40173 80.0-99.0 fl MCV Normal 85.9 LAB L200.59778 32.0-36.0 GM/DL MCHC Normal 33.9 LAB L200.01569 11-14.5 High RDW 16.2 LAB L200.90694 9.4-12.4 MPV Normal 9.4 LAB L200.41051 150-450 K/CU MM PLT Normal 253 LAB L200.16453 45-75 % High NEUTROPHILS % 75.7 LAB L200.30859 Less than 2 % IMMATURE Normal GRAN % 1.4 LAB L200.94948 20-40 % Low LYMPH % 12.9 LAB L200.82520 2-10 % MONOCYTE % Normal 9.2 LAB L200.97647 0-5 % EOSINOPHIL Normal % 0.4 LAB L200.45240 0-2 % BASOPHIL % Normal 0.4 LAB L200.26657 2.0-8.3 K/CU MM NEUTROPHIL Normal ABS 7.00 LAB L200.99255 Less than 2 K/CU MM IMMATR GRAN Normal ABS 0.10 LAB L200.52282 0.9-4.4 K/CU MM LYMPH ABS Normal 1.20 LAB L200.88803 0.1-1.1 K/CU MM MONO ABS Normal 0.90 LAB L200.97410 0-0.5 K/CU MM EOS ABS Normal 0.00 LAB L200.97334 0-0.2 K/CU MM BASO ABS Normal 0.00 LAB L200.31743 Less than 1 % NRBC Normal 0.0 Performed By: #### L200.97691 #### [facility] [place] [address] CMP Collected: 07/06/2018 Status: F Source: [facility] 5:19 AM [facility] REPOSITORY Order Comment: [place]: TYPE CODE TESTS RESULT OUT OF RANGE REFERENCE UNITS LAB L500.03890 136-145 MMOL/L Low NA 135 LAB L500.23759 3.5-5.1 MMOL/L Normal K 4.5 LAB L500.59268 98-107 MMOL/L Normal CL 101 LAB L500.99164 21-32 MMOL/L Normal CO2 23 LAB L500.94811 5-16 MMOL/L Normal AGAP 11 LAB L500.73306 70-100 MG/DL High GLU 200 Result Comment: 70-100- Normal Fasting; 100-125 Impaired Fasting; greater than 126 on more than one result- Diabetes. ADA guidelines. Results may be falsely elevated after the administration of Sulfapyridine. Results may be falsely depressed after the administration of Sulfasalazine. LAB L500.87945 7-26 MG/DL High BUN 40 LAB L500.42545 0.510-0.950 MG/DL Low CREAT 0.403 Result Comment: Patients receiving either N-Acetylcysteine (NAC) or Metamizole prior to venipuncture, may have falsely depressed results. LAB L500.20042 15-24 High BUN/CREA 99 LAB L500.95579 6.0-8.5 GM/DL Low TP 4.9 LAB L500.46706 3.2-5.0 GM/DL Low ALBUMIN 1.6 LAB L500.36003 2.2-4.2 GM/DL Normal GLOBULIN 3.3 LAB L500.91968 0.8-2.0 Low A/G RATIO 0.5 LAB L500.04956 8.5-10.1 MG/DL Normal CALCIUM TOTAL 9.1 LAB L500.71640 0.2-1.0 MG/DL Normal BILI TOTAL 0.2 LAB L500.40787 8-34 U/L Normal SGOT (AST) 13 Result Comment: RESULTS MAY BE FALSELY DEPRESSED AFTER THE ADMINISTRATION OF SULFASALAZINE AND/OR SULFAPYRIDINE. LAB L500.40429 13-61 IU/L Normal SGPT (ALT) 16 Result Comment: RESULTS MAY BE FALSELY DEPRESSED AFTER THE ADMINISTRATION OF SULFASALAZINE AND/OR SULFAPYRIDINE. LAB L500.47282 45-117 U/L Normal ALK PHOS 111 Performed By: #### L500.26073, L500.89609 #### [facility] [address] [place] [address] GFR EST Collected: 07/06/2018 Status: F Source: [facility] 5:19 AM [facility] REPOSITORY Order Comment: [place]: M TYPE CODE TESTS RESULT OUT OF RANGE REFERENCE UNITS LAB L500.10125 ML/MIN Normal IF non-AFR Greater than AMER 60 LAB L500.94889 ML/MIN Normal IF Greater than AMER 60 Performed By: #### L500.58481, L500.87890 #### [facility] [address] [place] [address] Observed: 07/05/2018 Status: F Source: [facility] ANAER CULTURE 5:30 PM [facility] REPOSITORY Order Comment: [place]: M RESULT NO GROWTH OF ANAEROBES Performed By: #### M100.73594 #### [facility] [address] [place] [address] Observed: 07/05/2018 Status: F Source: [facility] WOUND CULTURE 4:02 PM [facility] REPOSITORY Order Comment: [place]: M THIS BACTERIAL ISOLATE HAS BEEN DETERMINED TO BE A POSSIBLE CRE BY CDC DEFINITION CRE: CARBAPENEN RESISTANT ENTEROBACTERIACEAE PREVIOUS CRE Streptomycin Synergy Screen S Gentamicin Synergy Screen S PREVIOUS VRE THE PATIENT NEEDS TO BE PUT IN ISOLATION INFECTION CONTROL NOTIFIED 161007/09/18 BY DARBY MACIAS. THIS BACTERIAL ISOLATE HAS BEEN DETERMINED TO BE A POSSIBLE CRE BY CDC DEFINITION CRE: CARBAPENEN RESISTANT ENTEROBACTERIACEAE PREVIOUS CRE Streptomycin Synergy Screen S Gentamicin Synergy Screen S PREVIOUS VRE THE PATIENT NEEDS TO BE PUT IN ISOLATION INFECTION CONTROL NOTIFIED 161007/09/18 BY DARBY MACIAS THIS BACTERIAL ISOLATE HAS BEEN DETERMINED TO BE A POSSIBLE CRE BY CDC DEFINITION CRE: CARBAPENEN RESISTANT ENTEROBACTERIACEAE PREVIOUS CRE Streptomycin Synergy Screen S Gentamicin Synergy Screen S PREVIOUS VRE THE PATIENT NEEDS TO BE PUT IN ISOLATION INFECTION CONTROL NOTIFIED 161007/09/18 BY DARBY MACIAS GRAM STAIN MANY WBC'S NO ORGANISMS SEEN ORGANISM 1: KLEBSIELLA PNEUMONIAE QUANTITATION FEW CRE POSITIVE KLEBSIELLA PNEUMONIAE: REACTION AMIKACIN >32 R AMPICILLIN >16 R AMP/SULBACTAM (UNASYN) >16/8 R AUGMENTIN (AMOX/K CLVULANATE) >16/8 R CEFAZOLIN >16 R CEFEPIME >16 R CEFOTAXIME >32 R CEFUROXIME >16 R CIPROFLOXACIN >4 R GENTAMICIN <4 S IMIPENEM >8 R ERTAPENEM >4 R PIPERACILLIN/TAZOBACTAM >64 R TETRACYCLINE <4 S TOBRAMYCIN >8 R TRIMETH/SULFA >2/38 R LEVOFLOXACIN >4 R MEROPENEM >8 R MOXIFLOXACIN >4 R KLEBSIELLA PNEUMONIAE: REACTION MEROPENEM-VABORBACTAM E-TEST 1.5/8 S ORGANISM 2: VANC. RESISTANT E. FAECIUM QUANTITATION FEW VANC. RESISTANT E. FAECIUM: REACTION AMPICILLIN >8 R CHLORAMPHENICOL <8 S ERYTHROMYCIN >4 R GENTAMICIN SYNERGY SCREEN <500 S LINEZOLID <1 S PENICILLIN >8 R RIFAMPIN 2 I STREPTOMYCIN SYNERGY SCREEN <1000 S TETRACYCLINE >8 R VANCOMYCIN >16 R LEVOFLOXACIN >4 R DAPTOMYCIN 2 S Performed By: #### M100.12472 #### [facility] [address] [place] [address] PROG.NOTE Observed: 07/05/2018 Status: UNK Source: [facility] 10:55 AM [facility] REPOSITORY [facility] Patient Name: VENITA SMITH [address] [place] [address] NW Date of : [address] [address] Unit Number: [id number] Progress Note-Physician Patient Status: REG RCR Attending Doctor: Colette Sloan DO Service Date: 07/05/18 1055 Subjective S: (2 ROS minimum) Feeling ok, abd pain resolved. No fever. Objective (ROS) Physical Exam Neurological / Psychiatric Alert Respiratory Normal Breathing Effort, Clear Lungs Cardiovascular Heart RRR, No M / R / G Gastrointestinal Non Tender, No Mass Skin No Rash Assessment and Plan Conclusion 1. 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 No growth of MRSA. 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 AcB was I to minocycline per [facility] lab, but very limited other options. Discharged to [facility] for planned 6 week course but course has been extended. At [facility], taken for partial flap placement 05/31. Bone cx with ESBL ecoli, CRE klebs, E faecium, diphtheroids. No Acinetobacter seen. Wound worsened. 06/07 changed bactrim to vanc. Both CRE and ESBL still sensitive to tetracycline, but may need to add colistin eventually. Gen surg consulted; CT abd/pelvis showed fistula. Taken to OR 06/24 for resection and ostomy placement by Dr. Sanon. D/w wound nurse, sacral wound is overall much improved s/p ostomy and starting TPN. Continue vanc, meropenem, and minocycline. Pending vanc level this AM. Dose adjusted. Will continue to follow. D/w wound nurse, wound doing much better. Disclaimer This dictation was created using voice recognition software. Phonetic and/or minor grammatical errors may exist. eSign Date and Time Syeda Palmer MD Verified/Reviewed by 07/05/18 1056 VANC TROUGH Collected: 07/05/2018 Status: F Source: [facility] 9:15 AM [facility] REPOSITORY Order Comment: [place]: M TYPE CODE TESTS RESULT OUT OF REFERENCE UNITS RANGE LAB L520.48013 15.0-20.0 MCG/ML High alert VANC TROUGH 21.8 Result Comment: Critical Result(s) Called at: 10:22:29 on 07/05/2018 by: carolina wills to and read back by: KURTIS HUA RN Performed By: #### L520.91164 #### [facility] [address] [place] [address] CBC Collected: 07/05/2018 Status: F Source: [facility] 4:18 AM [facility] REPOSITORY Order Comment: [place]: M TYPE CODE TESTS RESULT OUT OF RANGE REFERENCE UNITS LAB L200.05437 4.5-11.0 K/CU MM Normal WBC 10.0 LAB L200.74344 3.90-5.30 M/CU MM Low RBC 3.37 LAB L200.04559 11.5-15.5 G/DL Low HGB 9.7 LAB L200.45020 35.0-47.0 % Low HCT 29.8 LAB L200.65153 80.0-99.0 fl Normal MCV 88.4 LAB L200.25933 32.0-36.0 GM/DL Normal MCHC 32.6 LAB L200.35601 11-14.5 High RDW 16.2 LAB L200.81653 9.4-12.4 Low MPV 9.2 LAB L200.30339 150-450 K/CU MM Normal PLT 246 LAB L200.00608 Less than 1 % Normal NRBC 0.0 Performed By: #### L200.32054 #### [facility] [place] [address] PT Collected: 07/05/2018 Status: F Source: [facility] 4:18 AM [facility] REPOSITORY Order Comment: [place]: TYPE CODE TESTS RESULT OUT OF RANGE REFERENCE UNITS LAB L300.46996 0.9-1.1 Normal INR 0.98 Result Comment: Recommended PT INR therapeutic range for detention and prophylactic therapy is 2.0 - 3.0. For heart valve and shunt patients the range is 2.5 - 3.5. LAB L300.96089 9.5-12.0 SECONDS Normal PTS 10.5 Performed By: #### L300.71399 #### [facility] [address] [place] [address] CBC W/DIFF Collected: 07/04/2018 Status: F Source: [facility] 3:20 AM [facility] REPOSITORY Order Comment: [place]: M TYPE CODE TESTS RESULT OUT OF RANGE REFERENCE UNITS LAB L200.99803 4.5-11.0 K/CU MM WBC Normal 7.8 LAB L200.44026 3.90-5.30 M/CU MM Low RBC 2.55 LAB L200.29096 11.5-15.5 G/DL Low HGB 7.3 LAB L200.18582 35.0-47.0 % Low HCT 22.9 LAB L200.17241 80.0-99.0 fl MCV Normal 89.8 LAB L200.90737 32.0-36.0 GM/DL Low MCHC 31.9 LAB L200.87221 11-14.5 High RDW 15.8 LAB L200.63921 9.4-12.4 Low MPV 9.3 LAB L200.06861 150-450 K/CU MM PLT Normal 259 LAB L200.30920 45-75 % High NEUTROPHILS % 75.9 LAB L200.43398 Less than 2 % IMMATURE Normal GRAN % 1.4 LAB L200.25614 20-40 % Low LYMPH % 12.0 LAB L200.13338 2-10 % MONOCYTE % Normal 9.8 LAB L200.04870 0-5 % EOSINOPHIL Normal % 0.5 LAB L200.58302 0-2 % BASOPHIL % Normal 0.4 LAB L200.21296 2.0-8.3 K/CU MM NEUTROPHIL Normal ABS 5.90 LAB L200.17757 Less than 2 K/CU MM IMMATR GRAN Normal ABS 0.10 LAB L200.07796 0.9-4.4 K/CU MM LYMPH ABS Normal 0.90 LAB L200.70260 0.1-1.1 K/CU MM MONO ABS Normal 0.80 LAB L200.11051 0-0.5 K/CU MM EOS ABS Normal 0.00 LAB L200.08762 0-0.2 K/CU MM BASO ABS Normal 0.00 LAB L200.18275 Less than 1 % NRBC Normal 0.0 Performed By: #### L200.40521 #### [facility] [address] [place] [address] PT Collected: 07/04/2018 Status: F Source: [facility] 3:20 AM [facility] REPOSITORY Order Comment: [place]: M TYPE CODE TESTS RESULT OUT OF RANGE REFERENCE UNITS LAB L300.41662 0.9-1.1 Normal INR 0.97 Result Comment: 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 For heart valve and shunt patients the range is 2.5 - 3.5. LAB L300.48200 9.5-12.0 SECONDS Normal PTS 10.4 Performed By: #### L300.89135 #### [facility] [address] [place] [address] CMP Collected: 07/04/2018 Status: F Source: [facility] 3:20 AM [facility] REPOSITORY Order Comment: [place]: M TYPE CODE TESTS RESULT OUT OF RANGE REFERENCE UNITS LAB L500.96855 136-145 MMOL/L Normal NA 136 LAB L500.26679 3.5-5.1 MMOL/L High K 5.2 Result Comment: Slight Hemolysis, Result may be falsely increased. LAB L500.62266 98-107 MMOL/L Normal CL 103 LAB L500.87583 21-32 MMOL/L Normal CO2 27 LAB L500.30983 5-16 MMOL/L Normal AGAP 5 LAB L500.46761 70-100 MG/DL High GLU 222 Result Comment: 70-100- Normal Fasting; 100-125 Impaired Fasting; greater than 126 on more than one result- Diabetes. ADA guidelines. Results may be falsely elevated after the administration of Sulfapyridine. Results may be falsely depressed after the administration of Sulfasalazine. LAB L500.34662 7-26 MG/DL High BUN 38 LAB L500.73030 0.510-0.950 MG/DL Low CREAT 0.424 Result Comment: Patients receiving either N-Acetylcysteine (NAC) or Metamizole prior to venipuncture, may have falsely depressed results. LAB L500.82783 15-24 High BUN/CREA 88 LAB L500.14872 6.0-8.5 GM/DL Low TP 4.7 LAB L500.06453 3.2-5.0 GM/DL Low ALBUMIN 1.4 LAB L500.79295 2.2-4.2 GM/DL Normal GLOBULIN 3.3 LAB L500.17519 0.8-2.0 Low A/G RATIO 0.4 LAB L500.23050 8.5-10.1 MG/DL Normal CALCIUM TOTAL 8.9 LAB L500.52913 0.2-1.0 MG/DL Low BILI TOTAL LESS THAN 0.1 LAB L500.78895 8-34 U/L Normal SGOT (AST) 16 Result Comment: Slight Hemolysis, Result may be falsely increased. RESULTS MAY BE FALSELY DEPRESSED AFTER THE ADMINISTRATION OF SULFASALAZINE AND/OR SULFAPYRIDINE. LAB L500.95240 13-61 IU/L Normal SGPT (ALT) 22 Result Comment: RESULTS MAY BE FALSELY DEPRESSED AFTER THE ADMINISTRATION OF SULFASALAZINE AND/OR SULFAPYRIDINE. LAB L500.58760 45-117 U/L Normal ALK PHOS 117 Performed By: #### L500.84648, L500.09384, L500.56772, L500.27265 #### [facility] [address] [place] [address] GFR EST Collected: 07/04/2018 Status: F Source: [place] [address]:20 AM [facility] REPOSITORY Order Comment: [place]: M TYPE CODE TESTS RESULT OUT OF RANGE REFERENCE UNITS LAB L500.46134 ML/MIN Normal IF non-AFR Greater than AMER 60 LAB L500.69973 ML/MIN Normal IF Greater than AMER 60 Performed By: #### L500.07114, L500.61387, L500.77774, L500.48660 #### [facility] [address] [place] [address] PHOS Collected: 07/04/2018 Status: F Source: [facility] 3:20 AM [facility] REPOSITORY Order Comment: [place]: M TYPE CODE TESTS RESULT OUT OF RANGE REFERENCE UNITS LAB L500.09497 2.5-4.9 MG/DL Normal PHOS 3.6 Performed By: #### L500.11169, L500.00665, L500.90989, L500.59929 #### [facility] [address] [place] [address] MAGNESIUM Collected: 07/04/2018 Status: F Source: [facility] 3:20 AM [facility] REPOSITORY Order Comment: [place]: M TYPE CODE TESTS RESULT OUT OF RANGE REFERENCE UNITS LAB L500.83232 1.6-2.6 MG/DL Normal MAGNESIUM 2.0 Result Comment: Slight Hemolysis, Result may be falsely increased. Performed By: #### L500.52902, L500.77036, L500.77144, L500.58540 #### [facility] [address] [place] [address] TROPONIN I Collected: 07/04/2018 Status: F Source: [facility] 3:20 AM [facility] REPOSITORY Order Comment: [place]: M TYPE CODE TESTS RESULT OUT OF RANGE REFERENCE UNITS LAB L550.35630 0.000-0.045 NG/ML Normal TROPONIN I 0.021 Performed By: #### L550.97291 #### [facility] [address] [place] [address] TS Collected: 07/04/2018 Status: F Source: [facility] 3:20 AM [facility] REPOSITORY Order Comment: [place]: M Tranfuse Now? Y Non - Acute Hemorrhage Indication: Hgb <7 g/dL Irradiated: N Washed: N Transfuse slowly @ 60mL/hr x15min, then increase to infuse: Over 4 Hours TYPE CODE TESTS RESULT OUT OF RANGE REFERENCE UNITS LAB B100.0400 A Normal BLOOD TYPE POSITIVE LAB B100.0680 Normal ANTIBODY NEGATIVE SCREEN RBC NO ACT Collected: 07/04/2018 Status: F Source: [facility] 3:20 AM [facility] REPOSITORY TYPE CODE TESTS RESULT OUT OF REFERENCE UNITS RANGE LAB U800.0005 RBC TRANSFUSED NO ACT PRODUCT: RBC NO ACTIVE BLEED COUNT: 2 ZINC Collected: 07/04/2018 Status: F Source: [facility] 3:20 AM [facility] REPOSITORY Order Comment: [place]: M TYPE CODE TESTS RESULT OUT OF RANGE REFERENCE UNITS LAB L550.78655 56-134 ug/dL Low ZINC 48 Result Comment: Detection Limit = 5 Performed At: [facility] [address] [id number] Ceci Franco [place] [id number] Performed By: #### L550.00289 #### [facility] [address] [id number] TROPONIN I Collected: 07/03/2018 Status: F Source: [facility] 9:22 PM [facility] REPOSITORY Order Comment: [place]: M TYPE CODE TESTS RESULT OUT OF RANGE REFERENCE UNITS LAB L550.84020 0.000-0.045 NG/ML Normal TROPONIN I 0.019 Performed By: #### L550.65080 #### [facility] [place] [address] CBC Collected: 07/03/2018 Status: F Source: [facility] 4:24 PM [facility] REPOSITORY Order Comment: [place]: M TYPE CODE TESTS RESULT OUT OF RANGE REFERENCE UNITS LAB L200.96534 4.5-11.0 K/CU MM Normal WBC 9.0 LAB L200.37585 3.90-5.30 M/CU MM Low RBC 2.63 LAB L200.46622 11.5-15.5 G/DL Low HGB 7.5 LAB L200.50715 35.0-47.0 % Low HCT 23.8 LAB L200.43090 80.0-99.0 fl Normal MCV 90.5 LAB L200.06102 32.0-36.0 GM/DL Low MCHC 31.5 LAB L200.37727 11-14.5 High RDW 15.9 LAB L200.62273 9.4-12.4 Low MPV 9.3 LAB L200.65380 150-450 K/CU MM Normal PLT 258 LAB L200.25881 Less than 1 % Normal NRBC 0.0 Performed By: #### L200.32832 #### [facility] [address] [place] [address] TROPONIN I Collected: 07/03/2018 Status: F Source: [facility] 4:24 PM [facility] REPOSITORY Order Comment: [place]: M TYPE CODE TESTS RESULT OUT OF RANGE REFERENCE UNITS LAB L550.35341 0.000-0.045 NG/ML Normal TROPONIN I 0.019 Performed By: #### L550.21309 #### [facility] [address] [place] [address] BMP Collected: 07/03/2018 Status: F Source: [facility] 4:24 PM [facility] REPOSITORY Order Comment: [place]: M TYPE CODE TESTS RESULT OUT OF RANGE REFERENCE UNITS LAB L500.35619 136-145 MMOL/L Low NA 134 LAB L500.43118 3.5-5.1 MMOL/L Normal K 4.8 LAB L500.92021 98-107 MMOL/L Normal CL 100 LAB L500.79107 21-32 MMOL/L Normal CO2 26 LAB L500.73007 5-16 MMOL/L Normal AGAP 7 LAB L500.91661 70-100 MG/DL High GLU 289 Result Comment: 70-100- Normal Fasting; 100-125 Impaired Fasting; greater than 126 on more than one result- Diabetes. ADA guidelines. Results may be falsely elevated after the administration of Sulfapyridine. Results may be falsely depressed after the administration of Sulfasalazine. LAB L500.53832 7-26 MG/DL High BUN 38 LAB L500.55851 0.510-0.950 MG/DL Low CREAT 0.465 Result Comment: Patients receiving either N-Acetylcysteine (NAC) or Metamizole prior to venipuncture, may have falsely depressed results. LAB L500.27920 15-24 High BUN/CREA 81 LAB L500.35459 8.5-10.1 MG/DL Normal CALCIUM TOTAL 8.8 Performed By: #### L500.15906, L500.97156 #### [facility] [place] [id number] GFR EST Collected: 07/03/2018 Status: F Source: [facility] 4:24 PM [facility] REPOSITORY Order Comment: [place]: M TYPE CODE TESTS RESULT OUT OF RANGE REFERENCE UNITS LAB L500.14509 ML/MIN Normal IF non-AFR Greater than AMER 60 LAB L500.19105 ML/MIN Normal IF Greater than AMER 60 Performed By: #### L500.69994, L500.65255 #### [facility] [address] [place] [address] VANC TROUGH Collected: 07/03/2018 Status: F Source: [facility] 11:40 AM [facility] REPOSITORY Order Comment: [place]: M TYPE CODE TESTS RESULT OUT OF REFERENCE UNITS RANGE LAB L520.02417 15.0-20.0 MCG/ML High alert VANC TROUGH 25.6 Result Comment: Critical Result(s) Called at: 12:29:37 on 07/03/2018 by: Cecilia Lindsey to and read back by: ROSALBA Performed By: #### L520.84093 #### [facility] [address] [place] [address] PT Collected: 07/03/2018 Status: F Source: [facility] 4:36 AM [facility] REPOSITORY Order Comment: [place]: M TYPE CODE TESTS RESULT OUT OF RANGE REFERENCE UNITS LAB L300.07751 0.9-1.1 Normal INR 0.97 Result Comment: 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 For heart valve and shunt patients the range is 2.5 - 3.5. LAB L300.28754 9.5-12.0 SECONDS Normal PTS 10.4 Performed By: #### L300.04704 #### [facility] [address] [place] [address] VANC TROUGH Collected: 07/02/2018 Status: F Source: [facility] 1:46 PM [facility] REPOSITORY Order Comment: [place]: M TYPE CODE TESTS RESULT OUT OF REFERENCE UNITS RANGE LAB L520.85425 15.0-20.0 MCG/ML High alert VANC TROUGH 31.6 Result Comment: Critical Result(s) Called at: 14:29:49 on 07/02/2018 by: carolina wills to and read back by: NARDA LOPEZ RN Performed By: #### L520.72609 #### [facility] [address] [place] [address] PROG.NOTE Observed: 07/02/2018 Status: UNK Source: [facility] 12:57 PM [facility] REPOSITORY [facility] Patient Name: VENITA SMITH [address] [place] [address] Date of : [address] [place] [address] Unit Number: [id number] Progress Note-Physician Patient Status: REG RCR Attending Doctor: Colette Sloan DO Service Date: 07/02/18 1257 Subjective S: (2 ROS minimum) Feeling better, no abd pain, no fever. Ostomy with output. Objective (ROS) Physical Exam Neurological / Psychiatric Alert Respiratory Normal Breathing Effort, Clear Lungs Cardiovascular Heart RRR, No M / R / G Gastrointestinal Non Tender, No Mass Skin No Rash Assessment and Plan Conclusion 1. 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 No growth of MRSA. 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 AcB was I to minocycline per [facility] micro lab, but very limited other options. Discharged to [facility] for planned 6 week course but course has been extended. At [facility], taken for partial flap placement 05/31. Bone cx with ESBL ecoli, CRE klebs, E faecium, diphtheroids. No Acinetobacter seen. Wound worsened. 06/07 changed bactrim to vanc. Both CRE and ESBL still sensitive to tetracycline, but may need to add colistin eventually. Gen surg consulted; CT abd/pelvis showed fistula. Taken to OR 06/24 for resection and ostomy placement by Dr. Sanon. D/w wound nurse, sacral wound is overall much improved s/p ostomy and starting TPN. Discussed with wound care nurse. Continue vanc, meropenem, and minocycline. Pending vanc level. Will continue to follow. Disclaimer This dictation was created using voice recognition software. Phonetic and/or minor grammatical errors may exist. eSign Date and Time Syeda Palmer MD Verified/Reviewed by 07/02/18 1258 PT Collected: 07/02/2018 Status: F Source: [facility] 4:21 AM [facility] REPOSITORY Order Comment: [place]: M TYPE CODE TESTS RESULT OUT OF RANGE REFERENCE UNITS LAB L300.48164 0.9-1.1 Normal INR 1.03 Result Comment: 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 For heart valve and shunt patients the range is 2.5 - 3.5. LAB L300.18961 9.5-12.0 SECONDS Normal PTS 11.0 Performed By: #### L300.14261 #### [facility] [place] [address] CBC W/DIFF Collected: 07/01/2018 Status: F Source: [facility] 5:18 AM [facility] REPOSITORY Order Comment: [place]: M TYPE CODE TESTS RESULT OUT OF RANGE REFERENCE UNITS LAB L200.68219 4.5-11.0 K/CU MM WBC Normal 7.8 LAB L200.74720 3.90-5.30 M/CU MM Low RBC 2.88 LAB L200.78678 11.5-15.5 G/DL Low HGB 8.3 LAB L200.52023 35.0-47.0 % Low HCT 25.5 LAB L200.97966 80.0-99.0 fl MCV Normal 88.5 LAB L200.83526 32.0-36.0 GM/DL MCHC Normal 32.5 LAB L200.77753 11-14.5 High RDW 15.7 LAB L200.09492 9.4-12.4 Low MPV 9.0 LAB L200.68060 150-450 K/CU MM PLT Normal 263 LAB L200.70944 45-75 % High NEUTROPHILS % 76.1 LAB L200.25476 Less than 2 % IMMATURE Normal GRAN % 1.4 LAB L200.83370 20-40 % Low LYMPH % 12.0 LAB L200.40023 2-10 % MONOCYTE % Normal 9.7 LAB L200.42496 0-5 % EOSINOPHIL Normal % 0.4 LAB L200.36520 0-2 % BASOPHIL % Normal 0.4 LAB L200.42873 2.0-8.3 K/CU MM NEUTROPHIL Normal ABS 5.90 LAB L200.88154 Less than 2 K/CU MM IMMATR GRAN Normal ABS 0.10 LAB L200.77177 0.9-4.4 K/CU MM LYMPH ABS Normal 0.90 LAB L200.53287 0.1-1.1 K/CU MM MONO ABS Normal 0.80 LAB L200.90038 0-0.5 K/CU MM EOS ABS Normal 0.00 LAB L200.72839 0-0.2 K/CU MM BASO ABS Normal 0.00 LAB L200.66024 Less than 1 % NRBC Normal 0.0 Performed By: #### L200.13567 #### [facility] [address] [place] [address] PT Collected: 07/01/2018 Status: F Source: [facility] 5:18 AM [facility] REPOSITORY Order Comment: [place]: M TYPE CODE TESTS RESULT OUT OF RANGE REFERENCE UNITS LAB L300.73526 0.9-1.1 Normal INR 1.05 Result Comment: Recommended PT INR therapeutic range for detention and prophylactic therapy is 2.0 - 3.0. For heart valve and shunt patients the range is 2.5 - 3.5. LAB L300.27999 9.5-12.0 SECONDS Normal PTS 11.2 Performed By: #### L300.94589 #### [facility] [address] [place] [address] CMP Collected: 07/01/2018 Status: F Source: [facility] 5:18 AM [facility] REPOSITORY Order Comment: [place]: M TYPE CODE TESTS RESULT OUT OF RANGE REFERENCE UNITS LAB L500.80523 136-145 MMOL/L Low NA 135 LAB L500.33688 3.5-5.1 MMOL/L Normal K 4.6 Result Comment: Slight Hemolysis, Result may be falsely increased. LAB L500.14088 98-107 MMOL/L Normal CL 102 LAB L500.84052 21-32 MMOL/L Normal CO2 27 LAB L500.12476 5-16 MMOL/L Normal AGAP 6 LAB L500.06084 70-100 MG/DL High GLU 310 Result Comment: Slight Lipemia, Result may be falsely increased. 70-100- Normal Fasting; 100-125 Impaired Fasting; greater than 126 on more than one result- Diabetes. ADA guidelines. Results may be falsely elevated after the administration of Sulfapyridine. Results may be falsely depressed after the administration of Sulfasalazine. LAB L500.00325 7-26 MG/DL High BUN 32 LAB L500.07106 0.510-0.950 MG/DL Low CREAT 0.327 Result Comment: Patients receiving either N-Acetylcysteine (NAC) or Metamizole prior to venipuncture, may have falsely depressed results. LAB L500.58741 15-24 High BUN/CREA 99 LAB L500.79677 6.0-8.5 GM/DL Low TP 4.4 LAB L500.58908 3.2-5.0 GM/DL Low ALBUMIN 1.3 LAB L500.86666 2.2-4.2 GM/DL Normal GLOBULIN 3.1 LAB L500.80073 0.8-2.0 Low A/G RATIO 0.4 LAB L500.16502 8.5-10.1 MG/DL Low CALCIUM TOTAL 8.4 LAB L500.07580 0.2-1.0 MG/DL Normal BILI TOTAL 0.2 LAB L500.36322 8-34 U/L High SGOT (AST) 62 Result Comment: Slight Hemolysis, Result may be falsely increased. RESULTS MAY BE FALSELY DEPRESSED AFTER THE ADMINISTRATION OF SULFASALAZINE AND/OR SULFAPYRIDINE. LAB L500.29264 13-61 IU/L Normal SGPT (ALT) 58 Result Comment: RESULTS MAY BE FALSELY DEPRESSED AFTER THE ADMINISTRATION OF SULFASALAZINE AND/OR SULFAPYRIDINE. LAB L500.89292 45-117 U/L High ALK PHOS 172 Performed By: #### L500.34138, L500.46116, L500.56257, L500.05468, L500.21378 #### [facility] [address] [place] [address] GFR EST Collected: 07/01/2018 Status: F Source: [facility] 5:18 AM [facility] REPOSITORY Order Comment: [place]: M TYPE CODE TESTS RESULT OUT OF RANGE REFERENCE UNITS LAB L500.06619 ML/MIN Normal IF non-AFR Greater than AMER 60 LAB L500.81125 ML/MIN Normal IF Greater than AMER 60 Performed By: #### L500.82178, L500.62750, L500.61556, L500.91981, L500.45013 #### [facility] [address] [place] [address] PHOS Collected: 07/01/2018 Status: F Source: [facility] 5:18 AM [facility] REPOSITORY Order Comment: [place]: M TYPE CODE TESTS RESULT OUT OF RANGE REFERENCE UNITS LAB L500.08453 2.5-4.9 MG/DL Normal PHOS 3.0 Performed By: #### L500.25228, L500.10847, L500.94641, L500.45443, L500.52096 #### [facility] [address] [place] [address] MAGNESIUM Collected: 07/01/2018 Status: F Source: [facility] 5:18 AM [facility] REPOSITORY Order Comment: [place]: M TYPE CODE TESTS RESULT OUT OF RANGE REFERENCE UNITS LAB L500.22782 1.6-2.6 MG/DL Normal MAGNESIUM 1.8 Result Comment: Slight Hemolysis, Result may be falsely increased. Performed By: #### L500.85977, L500.05686, L500.01694, L500.33512, L500.07091 #### [facility] [address] [place] [address] TRIG Collected: 07/01/2018 Status: F Source: [facility] 5:18 AM [facility] REPOSITORY Order Comment: [place]: M TYPE CODE TESTS RESULT OUT OF RANGE REFERENCE UNITS LAB L500.33479 30-149 MG/DL High TRIG 205 Result Comment: Patients receiving either N-Acetylcysteine (NAC) or Metamizole prior to venipuncture, may have falsely depressed results. Performed By: #### L500.80095, L500.23758, L500.48155, L500.53128, L500.87056 #### [facility] [address] [place] [address] CBC W/DIFF Collected: 06/30/2018 Status: F Source: [facility] 4:04 AM [facility] REPOSITORY Order Comment: [place]: TYPE CODE TESTS RESULT OUT OF RANGE REFERENCE UNITS LAB L200.17655 4.5-11.0 K/CU MM WBC Normal 10.9 LAB L200.74342 3.90-5.30 M/CU MM Low RBC 3.27 LAB L200.29218 11.5-15.5 G/DL Low HGB 9.3 LAB L200.57421 35.0-47.0 % Low HCT 29.4 LAB L200.31508 80.0-99.0 fl MCV Normal 89.9 LAB L200.73535 32.0-36.0 GM/DL Low MCHC 31.6 LAB L200.67001 11-14.5 High RDW 15.5 LAB L200.44840 9.4-12.4 Low MPV 8.9 LAB L200.33056 150-450 K/CU MM PLT Normal 419 LAB L200.64961 45-75 % High NEUTROPHILS % 78.6 LAB L200.54780 Less than 2 % IMMATURE Normal GRAN % 1.6 LAB L200.45705 20-40 % Low LYMPH % 10.8 LAB L200.11239 2-10 % MONOCYTE % Normal 8.3 LAB L200.69048 0-5 % EOSINOPHIL Normal % 0.3 LAB L200.32388 0-2 % BASOPHIL % Normal 0.4 LAB L200.59258 2.0-8.3 K/CU MM High NEUTROPHIL ABS 8.60 LAB L200.17875 Less than 2 K/CU MM IMMATR GRAN Normal ABS 0.20 LAB L200.36736 0.9-4.4 K/CU MM LYMPH ABS Normal 1.20 LAB L200.24526 0.1-1.1 K/CU MM MONO ABS Normal 0.90 LAB L200.67780 0-0.5 K/CU MM EOS ABS Normal 0.00 LAB L200.31402 0-0.2 K/CU MM BASO ABS Normal 0.00 LAB L200.79970 Less than 1 % NRBC Normal 0.0 Performed By: #### L200.24407 #### [facility] [address] [place] [address] PT Collected: 06/30/2018 Status: F Source: [facility] 4:04 AM [facility] REPOSITORY Order Comment: [place]: M TYPE CODE TESTS RESULT OUT OF RANGE REFERENCE UNITS LAB L300.48996 0.9-1.1 Normal INR 1.04 Result Comment: 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 For heart valve and shunt patients the range is 2.5 - 3.5. LAB L300.90771 9.5-12.0 SECONDS Normal PTS 11.1 Performed By: #### L300.32191 #### [facility] [address] [place] [address] CMP Collected: 06/30/2018 Status: F Source: [facility] 4:04 AM [facility] REPOSITORY Order Comment: [place]: M TYPE CODE TESTS RESULT OUT OF RANGE REFERENCE UNITS LAB L500.50611 136-145 MMOL/L Normal NA 137 LAB L500.73630 3.5-5.1 MMOL/L Normal K 4.5 LAB L500.73876 98-107 MMOL/L Normal CL 101 LAB L500.77617 21-32 MMOL/L Normal CO2 27 LAB L500.11821 5-16 MMOL/L Normal AGAP 9 LAB L500.52018 70-100 MG/DL High GLU 236 Result Comment: 70-100- Normal Fasting; 100-125 Impaired Fasting; greater than 126 on more than one result- Diabetes. ADA guidelines. Results may be falsely elevated after the administration of Sulfapyridine. Results may be falsely depressed after the administration of Sulfasalazine. LAB L500.86086 7-26 MG/DL High BUN 31 LAB L500.87761 0.510-0.950 MG/DL Low CREAT 0.386 Result Comment: Patients receiving either N-Acetylcysteine (NAC) or Metamizole prior to venipuncture, may have falsely depressed results. LAB L500.79197 15-24 High BUN/CREA 81 LAB L500.05055 6.0-8.5 GM/DL Low TP 4.8 LAB L500.93150 3.2-5.0 GM/DL Low ALBUMIN 1.5 LAB L500.24285 2.2-4.2 GM/DL Normal GLOBULIN 3.3 LAB L500.72080 0.8-2.0 Low A/G RATIO 0.4 LAB L500.75166 8.5-10.1 MG/DL Normal CALCIUM TOTAL 8.8 LAB L500.85242 0.2-1.0 MG/DL Normal BILI TOTAL 0.2 LAB L500.30231 8-34 U/L Normal SGOT (AST) 15 Result Comment: RESULTS MAY BE FALSELY DEPRESSED AFTER THE ADMINISTRATION OF SULFASALAZINE AND/OR SULFAPYRIDINE. LAB L500.93204 13-61 IU/L Normal SGPT (ALT) 15 Result Comment: RESULTS MAY BE FALSELY DEPRESSED AFTER THE ADMINISTRATION OF SULFASALAZINE AND/OR SULFAPYRIDINE. LAB L500.81496 45-117 U/L Normal ALK PHOS 74 Performed By: #### L500.62987, L500.99700 #### [facility] [address] [place] [address] GFR EST Collected: 06/30/2018 Status: F Source: [facility] 4:04 AM [facility] REPOSITORY Order Comment: [place]: M TYPE CODE TESTS RESULT OUT OF RANGE REFERENCE UNITS LAB L500.03099 ML/MIN Normal IF non-AFR Greater than AMER 60 LAB L500.07051 ML/MIN Normal IF Greater than AMER 60 Performed By: #### L500.10040, L500.18706 #### [facility] [address] [place] [address] PT Collected: 06/29/2018 Status: F Source: [facility] 5:00 AM [facility] REPOSITORY Order Comment: [place]: M TYPE CODE TESTS RESULT OUT OF RANGE REFERENCE UNITS LAB L300.22854 0.9-1.1 Normal INR 1.07 Result Comment: 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 For heart valve and shunt patients the range is 2.5 - 3.5. LAB L300.11844 9.5-12.0 SECONDS Normal PTS 11.5 Performed By: #### L300.60064 #### [facility] [address] [place] [address] K Collected: 06/29/2018 Status: F Source: [facility] 5:00 AM [facility] REPOSITORY Order Comment: [place]: M TYPE CODE TESTS RESULT OUT OF RANGE REFERENCE UNITS LAB L500.82699 3.5-5.1 MMOL/L Normal K 4.3 Performed By: #### L500.98987, L500.43979, L500.02405 #### [facility] [address] [place] [address] PHOS Collected: 06/29/2018 Status: F Source: [facility] 5:00 AM [facility] REPOSITORY Order Comment: [place]: M TYPE CODE TESTS RESULT OUT OF RANGE REFERENCE UNITS LAB L500.95257 2.5-4.9 MG/DL Low PHOS 2.3 Performed By: #### L500.59235, L500.35675, L500.93156 #### [facility] [address] [place] [address] MAGNESIUM Collected: 06/29/2018 Status: F Source: [facility] 5:00 AM [facility] REPOSITORY Order Comment: [place]: M TYPE CODE TESTS RESULT OUT OF RANGE REFERENCE UNITS LAB L500.98205 1.6-2.6 MG/DL Normal MAGNESIUM 1.8 Performed By: #### L500.61344, L500.45115, L500.84469 #### [facility] [address] [place] [address] VANC TROUGH Collected: 06/28/2018 Status: F Source: [facility] 9:59 PM [facility] REPOSITORY Order Comment: [place]: M TYPE CODE TESTS RESULT OUT OF REFERENCE UNITS RANGE LAB L520.57591 15.0-20.0 MCG/ML High alert VANC TROUGH 22.4 Result Comment: Critical Result(s) Called at: 22:48:16 on 06/28/2018 by: Florin Champion to and read back by: George AGUIRRE Performed By: #### L520.18231 #### [facility] [place] [address] PROG.NOTE Observed: 06/28/2018 Status: UNK Source: [facility] 11:23 AM [facility] REPOSITORY [facility] Patient Name: VENITA SMITH [facility] Date of : [address] [address] Unit Number: [id number] Progress Note-Physician Patient Status: REG RCR Attending Doctor: Colette Sloan DO Service Date: 06/28/18 1123 Subjective S: (2 ROS minimum) C/o still abd pain, requesting more pain meds. No fever. Objective (ROS) Physical Exam Neurological / Psychiatric Alert Respiratory Normal Breathing Effort, Clear Lungs Cardiovascular Heart RRR, No M / R / G Gastrointestinal Non Tender, No Mass Skin No Rash, ostomy in place Assessment and Plan Conclusion 1. 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 No growth of MRSA. 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 AcB was I to minocycline per [facility] micro lab, but very limited other options. Discharged to [facility] for planned 6 week course but course has been extended. At [facility], taken for partial flap placement 05/31. Bone cx with ESBL ecoli, CRE klebs, E faecium, diphtheroids. No Acinetobacter seen. Wound worsened. 06/07 changed bactrim to vanc. Both CRE and ESBL still sensitive to tetracycline, but may need to add colistin eventually. Gen surg consulted; CT abd/pelvis showed fistula. Taken to OR 06/24 for resection and ostomy placement by Dr. Sanon. D/w wound nurse, sacral wound is stable at this point, no purulence. Overall much improved. Discussed with wound care nurse. Continue vanc, meropenem, and minocycline. Checking vanc level. Will continue to follow. Disclaimer This dictation was created using voice recognition software. Phonetic and/or minor grammatical errors may exist. eSign Date and Time Syeda Palmer MD Verified/Reviewed by 06/28/18 1124 CBC W/DIFF Collected: 06/28/2018 Status: F Source: [facility] 7:41 AM [facility] REPOSITORY Order Comment: [place]: TYPE CODE TESTS RESULT OUT OF RANGE REFERENCE UNITS LAB L200.54836 4.5-11.0 K/CU MM WBC Normal 9.1 LAB L200.21671 3.90-5.30 M/CU MM Low RBC 3.28 LAB L200.15675 11.5-15.5 G/DL Low HGB 9.5 LAB L200.69616 35.0-47.0 % Low HCT 28.4 LAB L200.40827 80.0-99.0 fl MCV Normal 86.6 LAB L200.45085 32.0-36.0 GM/DL MCHC Normal 33.5 LAB L200.11404 11-14.5 High RDW 15.1 LAB L200.39464 9.4-12.4 Low MPV 8.6 LAB L200.50826 150-450 K/CU MM PLT Normal 342 LAB L200.92188 45-75 % High NEUTROPHILS % 84.2 LAB L200.17243 Less than 2 % IMMATURE Normal GRAN % 1.1 LAB L200.28975 20-40 % Low LYMPH % 7.7 LAB L200.31954 2-10 % MONOCYTE % Normal 6.6 LAB L200.09961 0-5 % EOSINOPHIL Normal % 0.2 LAB L200.63309 0-2 % BASOPHIL % Normal 0.2 LAB L200.63053 2.0-8.3 K/CU MM NEUTROPHIL Normal ABS 7.60 LAB L200.01938 Less than 2 K/CU MM IMMATR GRAN Normal ABS 0.10 LAB L200.06188 0.9-4.4 K/CU MM Low LYMPH ABS 0.70 LAB L200.81129 0.1-1.1 K/CU MM MONO ABS Normal 0.60 LAB L200.97901 0-0.5 K/CU MM EOS ABS Normal 0.00 LAB L200.07778 0-0.2 K/CU MM BASO ABS Normal 0.00 LAB L200.86962 Less than 1 % NRBC Normal 0.0 Performed By: #### L200.71202 #### [facility] [address] [place] [address] CMP Collected: 06/28/2018 Status: F Source: [facility] 7:41 AM [facility] REPOSITORY Order Comment: [place]: TYPE CODE TESTS RESULT OUT OF RANGE REFERENCE UNITS LAB L500.85810 136-145 MMOL/L Low NA 135 LAB L500.93877 3.5-5.1 MMOL/L Normal K 4.3 LAB L500.80797 98-107 MMOL/L Normal CL 102 LAB L500.78405 21-32 MMOL/L Normal CO2 25 LAB L500.79981 5-16 MMOL/L Normal AGAP 7 LAB L500.91162 70-100 MG/DL High GLU 371 Result Comment: 70-100- Normal Fasting; 100-125 Impaired Fasting; greater than 126 on more than one result- Diabetes. ADA guidelines. Results may be falsely elevated after the administration of Sulfapyridine. Results may be falsely depressed after the administration of Sulfasalazine. LAB L500.79715 7-26 MG/DL Normal BUN 22 LAB L500.66619 0.510-0.950 MG/DL Low CREAT 0.304 Result Comment: Patients receiving either N-Acetylcysteine (NAC) or Metamizole prior to venipuncture, may have falsely depressed results. LAB L500.14797 15-24 High BUN/CREA 72 LAB L500.48020 6.0-8.5 GM/DL Low TP 4.7 LAB L500.86882 3.2-5.0 GM/DL Low ALBUMIN 1.4 LAB L500.35457 2.2-4.2 GM/DL Normal GLOBULIN 3.3 LAB L500.70368 0.8-2.0 Low A/G RATIO 0.4 LAB L500.32573 8.5-10.1 MG/DL Low CALCIUM TOTAL 8.1 LAB L500.75814 0.2-1.0 MG/DL Normal BILI TOTAL 0.3 LAB L500.76003 8-34 U/L Low SGOT (AST) 7 Result Comment: RESULTS MAY BE FALSELY DEPRESSED AFTER THE ADMINISTRATION OF SULFASALAZINE AND/OR SULFAPYRIDINE. LAB L500.88576 13-61 IU/L Low SGPT (ALT) 9 Result Comment: RESULTS MAY BE FALSELY DEPRESSED AFTER THE ADMINISTRATION OF SULFASALAZINE AND/OR SULFAPYRIDINE. LAB L500.16232 45-117 U/L Normal ALK PHOS 74 Performed By: #### L500.36557, L500.82858 #### [facility] [address] [place] [address] GFR EST Collected: 06/28/2018 Status: F Source: [facility] 7:41 AM [facility] REPOSITORY Order Comment: [place]: M TYPE CODE TESTS RESULT OUT OF RANGE REFERENCE UNITS LAB L500.27126 ML/MIN Normal IF non-AFR Greater than AMER 60 LAB L500.33028 ML/MIN Normal IF Greater than AMER 60 Performed By: #### L500.95526, L500.65870 #### [facility] [address] [place] [address] PT Collected: 06/28/2018 Status: F Source: [facility] 4:30 AM [facility] REPOSITORY Order Comment: [place]: M TYPE CODE TESTS RESULT OUT OF RANGE REFERENCE UNITS LAB L300.88582 0.9-1.1 Normal INR 1.07 Result Comment: Recommended PT INR therapeutic range for detention and prophylactic therapy is 2.0 - 3.0. For heart valve and shunt patients the range is 2.5 - 3.5. LAB L300.01504 9.5-12.0 SECONDS Normal PTS 11.5 Performed By: #### L300.22444 #### [facility] [address] [place] [address] K Collected: 06/28/2018 Status: F Source: [facility] 4:30 AM [facility] REPOSITORY Order Comment: [place]: M TYPE CODE TESTS RESULT OUT OF RANGE REFERENCE UNITS LAB L500.79220 3.5-5.1 MMOL/L Normal K 4.3 Performed By: #### L500.97463, L500.63886, L500.98933 #### [facility] [address] [place] [address] PHOS Collected: 06/28/2018 Status: F Source: [facility] 4:30 AM [facility] REPOSITORY Order Comment: [place]: M TYPE CODE TESTS RESULT OUT OF RANGE REFERENCE UNITS LAB L500.20480 2.5-4.9 MG/DL Low PHOS 2.3 Performed By: #### L500.49356, L500.64925, L500.78228 #### [facility] [place] [id number] MAGNESIUM Collected: 06/28/2018 Status: F Source: [facility] 4:30 AM [facility] REPOSITORY Order Comment: [place]: M TYPE CODE TESTS RESULT OUT OF RANGE REFERENCE UNITS LAB L500.91213 1.6-2.6 MG/DL Normal MAGNESIUM 1.8 Performed By: #### L500.91643, L500.07127, L500.75228 #### [facility] [address] [place] [address] CBC W/DIFF Collected: 06/27/2018 Status: F Source: [facility] 5:31 AM [facility] REPOSITORY Order Comment: [place]: M TYPE CODE TESTS RESULT OUT OF RANGE REFERENCE UNITS LAB L200.79621 4.5-11.0 K/CU MM WBC Normal 7.3 LAB L200.31108 3.90-5.30 M/CU MM Low RBC 3.24 LAB L200.91394 11.5-15.5 G/DL Low HGB 9.3 LAB L200.57532 35.0-47.0 % Low HCT 29.1 LAB L200.21492 80.0-99.0 fl MCV Normal 89.8 LAB L200.28398 32.0-36.0 GM/DL MCHC Normal 32.0 LAB L200.67977 11-14.5 High RDW 15.0 LAB L200.04143 9.4-12.4 Low MPV 8.6 LAB L200.76185 150-450 K/CU MM PLT Normal 311 LAB L200.96571 45-75 % High NEUTROPHILS % 80.9 LAB L200.53582 Less than 2 % IMMATURE Normal GRAN % 1.2 LAB L200.01535 20-40 % Low LYMPH % 10.2 LAB L200.00562 2-10 % MONOCYTE % Normal 7.3 LAB L200.50143 0-5 % EOSINOPHIL Normal % 0.3 LAB L200.57266 0-2 % BASOPHIL % Normal 0.1 LAB L200.03946 2.0-8.3 K/CU MM NEUTROPHIL Normal ABS 5.90 LAB L200.77594 Less than 2 K/CU MM IMMATR GRAN Normal ABS 0.10 LAB L200.78466 0.9-4.4 K/CU MM Low LYMPH ABS 0.70 LAB L200.82479 0.1-1.1 K/CU MM MONO ABS Normal 0.50 LAB L200.72426 0-0.5 K/CU MM EOS ABS Normal 0.00 LAB L200.44280 0-0.2 K/CU MM BASO ABS Normal 0.00 LAB L200.10481 Less than 1 % NRBC Normal 0.0 Performed By: #### L200.90266 #### [facility] [address] [place] [address] PT Collected: 06/27/2018 Status: F Source: [facility] 5:31 AM [facility] REPOSITORY Order Comment: [place]: M TYPE CODE TESTS RESULT OUT OF RANGE REFERENCE UNITS LAB L300.04681 0.9-1.1 High INR 1.19 Result Comment: 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 For heart valve and shunt patients the range is 2.5 - 3.5. LAB L300.76428 9.5-12.0 SECONDS High 12.7 PTS Performed By: #### L300.66516 #### [facility] [address] [place] [address] CMP Collected: 06/27/2018 Status: F Source: [facility] 5:31 AM [facility] REPOSITORY Order Comment: [place]: M TYPE CODE TESTS RESULT OUT OF RANGE REFERENCE UNITS LAB L500.28416 136-145 MMOL/L Low NA 134 LAB L500.77349 3.5-5.1 MMOL/L Normal K 4.5 LAB L500.28851 98-107 MMOL/L Normal CL 100 LAB L500.31166 21-32 MMOL/L Normal CO2 26 LAB L500.58776 5-16 MMOL/L Normal AGAP 8 LAB L500.36795 70-100 MG/DL High GLU 331 Result Comment: 70-100- Normal Fasting; 100-125 Impaired Fasting; greater than 126 on more than one result- Diabetes. ADA guidelines. Results may be falsely elevated after the administration of Sulfapyridine. Results may be falsely depressed after the administration of Sulfasalazine. LAB L500.39094 7-26 MG/DL Normal BUN 10 LAB L500.53303 0.510-0.950 MG/DL Low CREAT 0.329 Result Comment: Patients receiving either N-Acetylcysteine (NAC) or Metamizole prior to venipuncture, may have falsely depressed results. LAB L500.05660 15-24 High BUN/CREA 31 LAB L500.94193 6.0-8.5 GM/DL Low TP 4.7 LAB L500.03183 3.2-5.0 GM/DL Low ALBUMIN 1.4 LAB L500.83408 2.2-4.2 GM/DL Normal GLOBULIN 3.3 LAB L500.95870 0.8-2.0 Low A/G RATIO 0.4 LAB L500.10540 8.5-10.1 MG/DL Low CALCIUM TOTAL 7.8 LAB L500.55961 0.2-1.0 MG/DL Normal BILI TOTAL 0.4 LAB L500.99780 8-34 U/L Low SGOT (AST) 5 Result Comment: RESULTS MAY BE FALSELY DEPRESSED AFTER THE ADMINISTRATION OF SULFASALAZINE AND/OR SULFAPYRIDINE. LAB L500.14089 13-61 IU/L Low SGPT (ALT) 12 Result Comment: RESULTS MAY BE FALSELY DEPRESSED AFTER THE ADMINISTRATION OF SULFASALAZINE AND/OR SULFAPYRIDINE. LAB L500.73953 45-117 U/L Normal ALK PHOS 77 Performed By: #### L500.02809, L500.39959, L500.12960, L500.51952 #### [facility] [place] [id number] GFR EST Collected: 06/27/2018 Status: F Source: [facility] 5:31 AM [facility] REPOSITORY Order Comment: [place]: M TYPE CODE TESTS RESULT OUT OF RANGE REFERENCE UNITS LAB L500.28572 ML/MIN Normal IF non-AFR Greater than AMER 60 LAB L500.04456 ML/MIN Normal IF Greater than AMER 60 Performed By: #### L500.00371, L500.69894, L500.33918, L500.94994 #### [facility] [address] [place], [place] [address] PHOS Collected: 06/27/2018 Status: F Source: [facility] 5:31 AM [facility] REPOSITORY Order Comment: [place]: M TYPE CODE TESTS RESULT OUT OF RANGE REFERENCE UNITS LAB L500.29306 2.5-4.9 MG/DL Low PHOS 2.4 Performed By: #### L500.47948, L500.37968, L500.08340, L500.83524 #### [facility] [address] [place] [address] MAGNESIUM Collected: 06/27/2018 Status: F Source: [facility] 5:31 AM [facility] REPOSITORY Order Comment: [place]: M TYPE CODE TESTS RESULT OUT OF RANGE REFERENCE UNITS LAB L500.94775 1.6-2.6 MG/DL Normal MAGNESIUM 1.7 Performed By: #### L500.27058, L500.68008, L500.85856, L500.91990 #### [facility] [address] [place] [address] PROG.NOTE Observed: 06/26/2018 Status: UNK Source: [facility] 2:00 PM [facility] Patient Name: VENITA SMITH [address] [place] [address] Date of : [address] [place] [address] Unit Number: [id number] Progress Note-Physician Patient Status: REG RCR Attending Doctor: Colette Sloan DO Service Date: 06/26/18 1400 Subjective S: (2 ROS minimum) Pain slightly better controlled, no fever. Objective (ROS) Physical Exam Neurological / Psychiatric Alert Respiratory Normal Breathing Effort, Clear Lungs Cardiovascular tachy Gastrointestinal Non Tender, No Mass, ostomy in place Skin wound vac in place Assessment and Plan Conclusion 1. 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 No growth of MRSA. 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 AcB was I to minocycline per [facility] micro lab, but very limited other options. Discharged to [facility] for planned 6 week course. At [facility], taken for partial flap placement 05/31. Bone cx with ESBL ecoli, CRE klebs, E faecium, diphtheroids. No Acinetobacter seen. Wound worsened. 06/07 changed bactrim to vanc. Both CRE and ESBL still sensitive to tetracycline, but may need to add colistin eventually. Gen surg consulted; CT abd/pelvis showed fistula. Taken to OR 06/24 for resection and ostomy placement by Dr. Sanon. Vanc trough at [facility]. D/w wound nurse, sacral wound is stable at this point, no purulence. Overall much improved. Discussed with wound care nurse. Continue vanc, meropenem, and minocycline. Will continue to follow. Disclaimer This dictation was created using voice recognition software. Phonetic and/or minor grammatical errors may exist. eSign Date and Time Syeda Palmer MD Verified/Reviewed by 06/26/18 1402 PT Collected: 06/26/2018 Status: F Source: [facility] 4:17 AM [facility] REPOSITORY Order Comment: [place]: M TYPE CODE TESTS RESULT OUT OF RANGE REFERENCE UNITS LAB L300.43510 0.9-1.1 High INR 1.21 Result Comment: Recommended PT INR therapeutic range for detention and prophylactic therapy is 2.0 - 3.0. For heart valve and shunt patients the range is 2.5 - 3.5. LAB L300.30514 9.5-12.0 SECONDS High 12.9 PTS Performed By: #### L300.11495 #### [facility] [address] [place] [address] BMP Collected: 06/26/2018 Status: F Source: [facility] 4:17 AM [facility] REPOSITORY Order Comment: [place]: M TYPE CODE TESTS RESULT OUT OF RANGE REFERENCE UNITS LAB L500.95518 136-145 MMOL/L Normal NA 136 LAB L500.93268 3.5-5.1 MMOL/L Normal K 4.4 LAB L500.99540 98-107 MMOL/L Normal CL 102 LAB L500.93774 21-32 MMOL/L Normal CO2 26 LAB L500.71501 5-16 MMOL/L Normal AGAP 8 LAB L500.86057 70-100 MG/DL High GLU 261 Result Comment: 70-100- Normal Fasting; 100-125 Impaired Fasting; greater than 126 on more than one result- Diabetes. ADA guidelines. Results may be falsely elevated after the administration of Sulfapyridine. Results may be falsely depressed after the administration of Sulfasalazine. LAB L500.77696 7-26 MG/DL Normal BUN 10 LAB L500.96950 0.510-0.950 MG/DL Low CREAT 0.389 Result Comment: Patients receiving either N-Acetylcysteine (NAC) or Metamizole prior to venipuncture, may have falsely depressed results. LAB L500.59024 15-24 BUN/CREA High 25 LAB L500.42820 8.5-10.1 MG/DL Low CALCIUM TOTAL 7.7 Performed By: #### L500.98314, L500.46125 #### [facility] [address] [place] [address] GFR EST Collected: 06/26/2018 Status: F Source: [facility] 4:17 AM [facility] REPOSITORY Order Comment: [place]: TYPE CODE TESTS RESULT OUT OF RANGE REFERENCE UNITS LAB L500.71491 ML/MIN Normal IF non-AFR Greater than AMER 60 LAB L500.93651 ML/MIN Normal IF Greater than AMER 60 Performed By: #### L500.23466, L500.57244 #### [facility] [address] [place] [id number] LTACHCR Observed: 06/25/2018 Status: UNK Source: [facility] 2:11 PM [facility] REPOSITORY DATE OF CONSULTATION: 07/03/2018 REASON FOR CONSULTATION: Ventricular tachycardia. HISTORY OF PRESENT ILLNESS: The patient was a transfer from [facility]. She is a 67-year-old female with a past history of CAD and CABG in February 2018 at [facility]. After her CABG, she developed complications with infected sites where the venous grafts were harvested. She became debilitated and was transferred to [facility] in [place]. She was there for several weeks, was discharged to a custodial and was discharged back to [facility] because of septic picture. She had decubitus ulcers, indwelling Allen catheter, and unable to ambulate. She was transferred to our hospital because of debridement by the plastic surgeon. The treatment could not be done at [facility]. They could not offer her care there. She was discharged and sent here to [facility] for further evaluation by surgeons and treatment. Today, the patient developed 2 episodes of nonsustained ventricular tachycardia, was asymptomatic. Cardiology was consulted for further treatment and evaluation. PAST MEDICAL AND SURGICAL HISTORY: Left lower extremity hematoma, sacral decubitus ulcer, right foot osteomyelitis, CAD, status post CABG, left upper extremity DVT, obesity, diabetes, obstructive sleep apnea, COPD, asthma, hypertension, hyperlipidemia, I and D of the left lower extremity due to a hematoma. SOCIAL HISTORY: The patient denies any alcohol, was a former smoker and denies recreational drug use. REVIEW OF SYSTEMS: Could not be obtained by the patient today. She was extremely fatigued, a little on the lethargic side. Most of the information was obtained through computer documentation. PHYSICAL EXAMINATION: General: The patient briefly alert, in no acute respiratory distress. Neck: No JVD. Lungs: Clear throughout. Cardiac: S1, S2. No murmurs, rubs or gallops. Abdomen: Soft, nontender, bowel sounds present. LABORATORY DATA: White blood count 7.8, hemoglobin 8.3, hematocrit 25.5, platelets 263. Sodium 135, potassium 4.6, BUN 32, creatinine 0.32. VITAL SIGNS: Temperature 96.9, heart rate 72, respirations 16, blood pressure 111/54, normal sinus rhythm. ASSESSMENT: 1. Ventricular tachycardia. Two runs of nonsustained ventricular tachycardia, likely secondary to coronary artery disease and current illnesses. [facility] PATIENT NAME: VENITA SMITH Annita Faulkner MEDICAL REC #: [id number] [place] [address] ADMIT DATE: DISCHARGE DATE: ATTENDING PHY: Colette Sloan DO 2. Coronary artery disease status post coronary artery bypass graft in February 2018. 3. Atrial fibrillation. 4. Hypertension. 5. Hyperlipidemia. 6. Chronic kidney disease stage III. 7. Obstructive sleep apnea. 8. Diabetes mellitus 2. 9. Obesity. 10. Left upper extremity deep venous thrombosis; the patient is already on Coumadin. 11. Extensive sacral decubitus ulcer. PLAN: Add amiodarone 400 mg p.o. daily. We will continue to follow along with the patient. Thank you for allowing us to participate in the care. Tatiana Guerra, PRODUCTION ILLUSTRATOR dictating for MD BRAYDEN Petersen/[id number] SSI File#: [id number] Verified/Reviewed by [facility] PATIENT NAME: VENITA SMITH [facility] Dr. Faulkner MEDICAL REC #: [id number] [place] [address] ADMIT DATE: DISCHARGE DATE: ATTENDING PHY: Colette Sloan DO LTACHCR Observed: 06/25/2018 Status: UNK Source: [facility] 2:11 PM [facility] REPOSITORY DATE OF CONSULTATION: 07/04/2018 CHIEF COMPLAINT: Routine foot care. HISTORY OF PRESENT ILLNESS: This is a 67-year-old female with history of diabetes, coronary artery disease, COPD, hypertension, who is well known to [facility] for previous history of nonhealing sacral decubitus ulcer. Patient is here for IV antibiotic therapy and Wound V.A.C. therapy as well. We are being consulted for routine foot care. PAST MEDICAL HISTORY: Significant for left lower extremity hematoma, right foot osteomyelitis, right upper extremity deep venous thrombosis, right lower extremity cellulitis with skin break down, coronary artery disease, status post CABG, sleep apnea, diabetes, obesity, COPD, asthma, hypertension, hyperlipidemia. FAMILY HISTORY: Colon cancer. SOCIAL HISTORY: No alcohol or drug use. She is a former smoker. REVIEW OF SYSTEMS: Denies any fevers, chills, nausea, vomiting, chest pain, shortness of breath, calf or thigh pain. ALLERGIES: 1. LISINOPRIL. 2. METRONIDAZOLE. MEDICATIONS: Please refer to medication list. PHYSICAL EXAMINATION: Vital signs: Temperature 96.2, respirations 16, heart rate of 79, blood pressure 115/60. Extremities: DP and PT pulses are reduced bilaterally. CFT within normal limits. Mild edema noted to bilateral lower extremities. She has an intact bandage noted to the left lower extremity for a left leg wound that is currently being treated by General Surgery and Wound Care. She has painfully elongated nails 1 through 5 bilaterally. They are thick and mycotic with subungual debris. There is pain with medial as well as lateral compression. No areas of paronychia noted. No areas of maceration. No signs of infection are appreciated. No signs of bacterial infection are appreciated. Muscle strength is reduced to all muscle groups of the bilateral lower extremities. Light touch sensation is intact. ASSESSMENT: 1. Onychomycosis. 2. Pain in limb. MEDICAL DECISION MAKING / TREATMENT PLAN: Findings as well as prognosis were [facility] PATIENT NAME: VENITA SMITH Annita Faulkner MEDICAL REC #: [id number] [place] [id number] ADMIT DATE: DISCHARGE DATE: ATTENDING PHY: Colette Sloan DO discussed in detail with the patient. All questions answered to the patient's apparent satisfaction. The patient was seen in [facility] for local wound care as well as IV antibiotics therapy for an infected stage IV sacral decubitus ulcer. She is seen at the bedside for routine foot care. Nails 1 through 5 bilaterally were debrided in length and thickness without incident. This is done in order to reduce pain as well as inflammation. Her fingernails were also trimmed as a courtesy. We will follow with the patient on an as-needed basis or sooner should problems arise. Thank you for the opportunity to assist with the care of this patient. Neva Prieto DPM [facility]/[id number] SSI File#: [id number] Verified/Reviewed by [facility] PATIENT NAME: VENITA SMITH Annita Faulkner MEDICAL REC #: [id number] [place] [id number] ADMIT DATE: DISCHARGE DATE: ATTENDING PHY: Colette Sloan DO CT ABD/PELV W Observed: 06/25/2018 Status: F Source: [email or web address] 2:[address] [facility] [address] ABD/PELV W ORAL&IV CONTRAST Ordering Physician: Syeda Palmer MD 07/09/2018 4:[address] OF THE ABDOMEN AND PELVIS WITH CONTRAST: Clinical Statement: Drainage from surgical site Comparison: 06/06/2014 FINDINGS: 3.75 mm axial tomographic images were acquired through the abdomen and pelvis following the uneventful intravenous administration 100 cc of Isovue 300 contrast. Enteric contrast was also given. There is continued elevation of the right hemidiaphragm with mild adjacent right lower lobe atelectasis. No pleural or pericardial effusions. There is continued mild intrahepatic biliary dilatation. The common bile duct is not dilated. There is a subcapsular partially enhancing 4.5 x 3.0 cm mass within segment 4A. The spleen and adrenal glands are stable. There is an 8 mm cystic lesion of the body of the pancreas. No pancreatic ductal dilatation. There is a small stone in the neck of the gallbladder. There is a small hiatal hernia. The aorta is calcified with mild mural plaque formation. There is symmetric renal enhancement and left side renal cysts. There is a left side colostomy which is new from before. The small bowel has normal caliber. The proximal colon is normal. There is been resection of the sigmoid colon. The rectal pouch is normal. There is a Allen catheter within a thickened urinary bladder. There are no adnexal masses. There are locules of air along the left upper pelvis subcutaneous fat. No free air. No significant free fluid or fluid collections. There is relatively mild anasarca of the subcutaneous tissue of the thighs and pelvis and left lateral abdomen. IMPRESSION: Status post sigmoid resection with a left side colostomy placement. The bowel is unremarkable appearance. No fluid collections. Mild subcutaneous anasarca. There are locules of air within the subcutaneous fat of the left lateral abdomen. ---- Electronic Signature on File ---- Signed By: Elgin Elizalde MD PhD [email or web address] Dictated: 07/10/2018 8:07 AM Signed: 07/10/2018 8:23 AM Reported By: ELGIN ELIZALDE M.D. Signed By: ELGIN ELIZALDE M.D. PORTABLE CHEST Observed: 06/25/2018 Status: F Source: [facility] 2:11 PM [facility] PORTABLE CHEST Ordering Physician: Colette Sloan DO 07/11/2018 5:06 AM PORTABLE CHEST: Clinical Statement: Hypotension Comparison: 06/05/2018, 05/10/2018 FINDINGS: Portable upright chest radiograph. There is a right upper extremity PICC in unchanged position. Median sternotomy wires and the style surgical clips are again noted. Heart size is normal. The aorta is atherosclerotic and tortuous. The right hemidiaphragm is elevated. There is no focal consolidation or vascular congestion. No pleural effusion or pneumothorax. There is a small hiatal hernia present. Degenerative findings are noted in the spine and AC joints. There are presumably left shoulder joint loose bodies with degenerative changes. IMPRESSION: No acute process. Stat report was dictated and sent to the referring physician. Dictated by Oak Tanner: Reyes Puri DO Reviewed and Signed by: Elgin Elizalde MD PhD ---- Electronic Signature on File ---- Signed By: Elgin Elizalde MD PhD [email or web address] Dictated: 07/11/2018 5:29 AM Signed: 07/11/2018 8:31 AM Reported By: ELGIN ELIZALDE M.D. Signed By: ELGIN ELIZALDE M.D. LTACHCR Observed: 06/25/2018 Status: UNK Source: [facility] 2:11 PM [facility] DATE OF CONSULTATION: 08/14/2018 REASON FOR CONSULTATION: Acute kidney injury and hyperkalemia. HISTORY OF PRESENT ILLNESS: This is a 67-year-old hypertensive lady with a baseline creatinine of 0.5 admitted to [facility] a few weeks ago as a transferred from [facility] for management of nonhealing sacral decubital ulcers. She is being followed by ID, General Surgery, and Plastic Surgery for this. Serum potassium has been in the low to high 5s and this morning was 6 for which Nephrology consultation was requested. Serum creatinine from a baseline of 0.5 has risen to 1.1. She denies knowledge of prior kidney problems. She is on a regular diet. She takes lisinopril 5 mg daily for hypertension. She is on Lasix for respiratory issues. A chest x-ray was ordered this morning, pending at this time. Urine output is good. Presently on BiPAP. Denies severe nausea, vomiting, or diarrhea. PAST MEDICAL HISTORY: 1. Hypertension. 2. Dyslipidemia. 3. Diabetes mellitus. 4. Coronary artery disease, status post CABG. 5. Right foot osteomyelitis. 6. Right upper extremity DVT. 7. Cellulitis. 8. Sacral wound. ALLERGIES: As listed to metronidazole. SOCIAL HISTORY: Nonsmoker. FAMILY HISTORY: Noncontributory. REVIEW OF SYSTEMS: As above. MEDICATIONS: Reviewed. LABS PERTINENT FROM THIS MORNING: Sodium 142, potassium 6, CO2 30, BUN 43, creatinine 1.1, albumin 1.9, calcium 8.3, hemoglobin 9.2, hematocrit 29. Chest x-ray is pending. ABGs: pH 7.18, CO2 82, bicarbonate 30. PHYSICAL EXAM: Vital signs: Blood pressure 109/68, heart rate 92. HEENT: On BiPAP. Lungs: Decreased at bases. Heart: Regular. Lower extremities: Trace edema. [facility] PATIENT NAME: VENITA SMITH [facility] [address] Faulkner MEDICAL REC #: [id number] [place] [address] ADMIT DATE: DISCHARGE DATE: ATTENDING PHY: Colette Sloan DO IMPRESSION: 1. Acute kidney injury, likely prerenal from diuretics and ERAN inhibitors. 2. Hyperkalemia secondary to number 1, ERAN inhibitors, and dietary intake. RECOMMENDATIONS: 1. Discontinue lisinopril. 2. Low potassium diet. 3. Will recheck potassium now and consider Kayexalate if indicated. 4. Agree with obtaining chest x-ray to evaluate lung baeza. May need to modify diuretics. 5. Check morning labs. Thank you for giving me the opportunity to participate in the care of this patient. MD RACHID John/[id number] SSI File#: [id number] Verified/Reviewed by [facility] PATIENT NAME: VENITA SMITH [facility] Dr. Faulkner MEDICAL REC #: [id number] [place] [address] ADMIT DATE: DISCHARGE DATE: ATTENDING PHY: Colette Sloan DO PORTABLE CHEST Observed: 06/25/2018 Status: F Source: [facility] 2:11 PM [facility] PORTABLE CHEST Ordering Physician: Colette Sloan DO 08/14/2018 10:23 AM PORTABLE CHEST: Clinical Statement: Obstruction versus ileus. Comparison: 07/11/2018 FINDINGS: Multiple sternotomy wires are unchanged. Right PICC line is again identified, unchanged. Cardiac silhouette is within normal limits, unchanged. Aortic arch and descending thoracic aorta calcifications are also again identified. There is unchanged elevation of the right hemidiaphragm. The left costophrenic angle is outside the [id number]. The right costophrenic angle is not evaluated due to superimposition of chest leads. Interval new biapical airspace opacities are identified. Left basilar airspace opacities are also identified, new since prior exam. No obvious pneumothorax. Pulmonary vasculature is within normal limits. Degenerative disease of the spine and shoulders are again noted. A few calcifications again project over the left upper arm, likely representing loose bodies. IMPRESSION: 1. Interval new biapical and left basilar airspace opacities. Findings could represent multifocal pneumonia in the appropriate clinical setting. Follow-up to ensure resolution. ---- Electronic Signature on File ---- Signed By: Florence Varela MD [email or web address] Dictated: 08/14/2018 2:01 PM Signed: 08/14/2018 2:05 PM Reported By: FLORENCE VARELA M.D. Signed By: FLORENCE VARELA M.D. ABDOMEN OR KUB Observed: 06/25/2018 Status: F Source: [facility] 2:11 PM [facility] ABDOMEN OR KUB Ordering Physician: Colette Sloan DO 08/14/2018 10:23 AM ABDOMEN/2B (TWO IMAGES): Clinical Statement: Obstruction versus ileus. Comparison: CT abdomen pelvis 07/09/2018. FINDINGS: The right flank is outside the yydrn-pw-luzl of this exam. Several gas-filled mildly distended loops of small bowel are identified. Distended gas-filled stomach is also identified. No supine evidence of intra-abdominal free air. No obvious portal venous gas. A left-sided colostomy is identified. Osseous structures are unchanged when compared to prior exam. There is redemonstration of degenerative changes of the visualized spine, bilateral SI joints and bilateral hip joints. Several surgical clips project over the lower abdomen and upper pelvis; correlate with patient's surgical history. A few sternotomy wires are identified, unchanged. IMPRESSION: Overall evaluation of this exam is suboptimal due to patient body habitus. Additionally, the right flank is outside the bnoac-yj-xebz of this exam. 1. Distended gas-filled stomach. Several gas-filled mildly distended loops of small bowel. Evaluation of the large bowel is noted possible but no obvious distended large bowel loops are identified. Findings concerning for small bowel obstruction. 2. No supine evidence of free air. ---- Electronic Signature on File ---- Signed By: Florence Varela MD [email or web address] Dictated: 08/14/2018 2:05 PM Signed: 08/14/2018 2:09 PM Reported By: FLORENCE VARELA M.D. Signed By: FLORENCE VARELA M.D. PORTABLE CHEST Observed: 06/25/2018 Status: F Source: [facility] 2:11 PM [facility] REPOSITORY PORTABLE CHEST Ordering Physician: Colette Sloan DO 08/15/2018 4:00 AM PORTABLE UPRIGHT CHEST RADIOGRAPH AT 0541 HOURS Clinical Statement: Respiratory failure Comparison: 08/14/2018 FINDINGS: Right PICC line is unchanged in position. The cardiomediastinal silhouette is stable. Atherosclerotic calcifications are present within the aorta. Interstitial prominence with patchy alveolar infiltrates are again seen bilaterally demonstrating no significant change. Pulmonary vasculature is not congested. There are small bilateral pleural effusions. No pneumothorax. IMPRESSION: No significant interval change. ---- Electronic Signature on File ---- Signed By: Demi Hammond MD [email or web address] Dictated: 08/15/2018 7:47 AM Signed: 08/15/2018 7:48 AM Reported By: DEMI HAMMOND M.D. Signed By: DEMI HAMMOND M.D. ABDOMEN OR KUB Observed: 06/25/2018 Status: F Source: [facility] 2:11 PM [facility] ABDOMEN OR KUB Ordering Physician: Colette Sloan DO 08/15/2018 4:00 AM ABDOMEN Clinical Statement: Dilated small bowel loops, abdominal distention FINDINGS: Two portable images of the abdomen were obtained and compared to a prior study dated 08/14/2018. There is gaseous distention of the stomach which is increased from the previous study. There are mildly distended gas-filled small bowel loops also showing slight progression. No abnormal colonic dilatation is seen. IMPRESSION: Gaseous distention of the stomach and small bowel which has progressed. The findings may be related to functional ileus or developing obstruction. ---- Electronic Signature on File ---- Signed By: John Malloy MD FACR [email or web address] Dictated: 08/15/2018 7:52 AM Signed: 08/15/2018 7:54 AM Reported By: JOHN MALLOY M.D. Signed By: JOHN MALLOY M.D. LTACHCR Observed: 06/25/2018 Status: UNK Source: [facility] 2:11 PM [facility] DATE OF CONSULTATION: 08/15/2018 PHYSICIAN REQUESTING CONSULTATION: Colette Sloan DO REASON FOR CONSULTATION: Possible bowel obstruction. HISTORY OF PRESENT ILLNESS: This patient is a 67-year-old female, currently at [facility], who started having some vomiting. X-rays were obtained. A question of a bowel obstruction was noted on the x-rays. Surgical evaluation is now being sought. 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 Significant induration and inflammation were noted at that time. There has been good colostomy output. In fact, during this examination, there is stool and gas in the colostomy bag. Of note, the patient has multiple significant comorbidities, to include sepsis, a large sacral decubitus ulcer. She has been on multiple antibiotics. She is currently DNR comfort care arrest. PAST MEDICAL AND SURGICAL HISTORY: As noted, the patient has a large sacral decubitus ulcer, with osteomyelitis, being on antibiotics. She has a left lower extremity hematoma, right foot osteomyelitis, coronary disease status post coronary artery bypass grafting, left upper extremity DVT, morbid obesity, diabetes, obstructive sleep apnea, COPD, asthma, hypertension, and hyperlipidemia. She has had a colon resection colostomy as noted above. She has had incision and drainage, left lower extremity. She has had debridement, attempts of flap closure, large sacral decubitus. MEDICATIONS: Listed in the MAR and reviewed. ALLERGIES: Listed in the MAR and reviewed. FAMILY HISTORY: Noncontributory. SOCIAL HISTORY: Former smoker, no history of alcohol or drug abuse. SYSTEMS REVIEW: A full systems review was performed, with minimal input from the patient. Most of it was performed by reviewing the chart and discussion with the nursing staff. This includes a review of systemic, endocrine, neurological, HEENT, cardiac, pulmonary, gastrointestinal, genitourinary, and musculoskeletal systems, and there were no additional findings. PHYSICAL EXAMINATION: General: A fairly developed, obese female, lying supine in the hospital bed, [facility] PATIENT NAME: VENITA SMITH [address] [place] [address] Dr. Faulkner [facility] REC #: [id number] [place] [address] ADMIT DATE: DISCHARGE DATE: ATTENDING PHY: LutherColette Consuelo DO somewhat drowsy, arousable, and responding appropriately. HEENT: Anicteric sclerae, no rhinorrhea, no otorrhea, and trachea midline. Lungs: Breath sounds harsh. Cardiovascular: Heart sounds are regular. Abdomen: Globular, soft. Well-healed midline surgical incision. Colostomy is quite viable. There is gas, and green stool in the bag. Bowel sounds are present and normoactive. No palpable organomegaly. Extremities: No long bone deformities. Integumentary: Poor skin turgor. Neurologic: No obvious localizing signs. Vascular and Lymphatic: Equal and symmetrical upper extremity pulses. REVIEW OF RECENT LABS: WBC count of 6.5, hemoglobin of 8.2, and hematocrit of 26.7. Coagulation profile shows an INR of 7.68, PT of 70.0. Chemistry panel shows a potassium of 5.7, creatinine of 1.070. The patient did have abdominal x-ray done today. Multiple dilated loops of small bowel. There is possible functional ileus, or developing obstruction. The patient did have a CT scan of the abdomen and pelvis on July 09, 2018. At that time, bowel appearance was unremarkable. IMPRESSION: Clinical findings are more consistent with ileus rather than a bowel obstruction. In fact, as noted, there is gas and stool output in the colostomy bag. Multiple medical comorbidities as listed in the above history. On the x-rays, there is also significant gaseous distention. This may be related to the ileus, or separate nature of gastroparesis. PLAN/RECOMMENDATIONS: We will start off by placing her on Reglan intravenously. We will see how she responds. We will repeat the x-rays tomorrow. We need to make sure the patient is not on any antidiarrhea medications. If she continues to have nausea, particularly vomiting, we may need to place her on a nasogastric tube. I appreciate the consultation. We will follow this patient with you. Mert Sanon MD CD/[id number] SSI File#: [id number] CC: Colette Sloan DO [facility] PATIENT NAME: VENITA SMITH [facility] Dr. Faulkner MEDICAL REC #: [id number] [place] [address] ADMIT DATE: DISCHARGE DATE: ATTENDING PHY: Colette Sloan DO Verified/Reviewed by [facility] PATIENT NAME: VENITA SMITH [facility] Dr. Faulkner MEDICAL REC #: [id number] [place] [address] ADMIT DATE: DISCHARGE DATE: ATTENDING CESARIO: Colette Sloan DO ABDOMEN 2 VIEWS Observed: 06/25/2018 Status: F Source: [facility] 2:11 PM [facility] ABDOMEN 2 VIEWS Ordering Physician: Colette Sloan DO 08/16/2018 4:00 AM PORTABLE TWO VIEW ABDOMEN Clinical Statement: Bowel obstruction Comparison: 08/15/2018 FINDINGS: The stomach is gas-filled. There are multiple gas-filled loops of small bowel throughout the mid abdomen which are increased in size and number. Gas and fecal material are scattered throughout the colon. Hernia clips are noted in the midabdomen. There is no gross intraperitoneal free air. IMPRESSION: Multiple gas-filled loops of small bowel throughout the mid abdomen are increased in size and number, worrisome for developing obstruction. ---- Electronic Signature on File ---- Signed By: Demi Hammond MD [email or web address] Dictated: 08/16/2018 7:07 AM Signed: 08/16/2018 7:09 AM Reported By: DEMI HAMMOND M.D. Signed By: DEMI HAMMOND M.D. PORTABLE CHEST Observed: 06/25/2018 Status: F Source: [facility] 2:11 PM [facility] PORTABLE CHEST Ordering Physician: Colette Sloan DO 08/16/2018 4:00 AM PORTABLE UPRIGHT CHEST RADIOGRAPH AT 0454 HOURS Clinical Statement: Respiratory failure Comparison: 08/15/2018 FINDINGS: The patient has undergone prior median sternotomy. The cardiac mediastinal silhouette is stable. Atherosclerotic calcifications are present within the aorta. Interstitial prominence with patchy alveolar infiltrates are again seen bilaterally, greatest in the upper lobes and demonstrating no significant change. Pulmonary vasculature is not congested. There is trace right pleural fluid. Lung volumes are decreased. No pneumothorax. IMPRESSION: No significant change. ---- Electronic Signature on File ---- Signed By: Demi Hammond MD [email or web address] Dictated: 08/16/2018 7:09 AM Signed: 08/16/2018 7:11 AM Reported By: DEMI HAMMOND M.D. Signed By: DEMI HAMMOND M.D. ABDOMEN OR KUB Observed: 06/25/2018 Status: F Source: [facility] 2:11 PM [facility] ABDOMEN OR KUB Ordering Physician: Dimitri Smith MD 08/16/2018 6:46 PM KUB OF THE ABDOMEN Clinical Statement: Bowel obstruction. Comparison 08/16/2018 at 0459 hours FINDINGS: The stomach is not distended. There are multiple air-filled large and small bowel loops noted in the lower abdomen and pelvis. Overall these are improved compared with the prior study. There is an ostomy on the left side. Multiple surgical precious are noted overlying the pelvis. Atherosclerotic vascular calcifications are noted. No acute osseous abnormalities are seen. IMPRESSION: Interval improvement. There are mildly dilated air-filled small bowel loops within the pelvis and air and fecal material within the colon but the degree of bowel distention is improved compared with the prior study. Left lower quadrant ileostomy. ---- Electronic Signature on File ---- Signed By: Paulie Omalley MD [email or web address] Dictated: 08/16/2018 8:36 PM Signed: 08/16/2018 8:38 PM Reported By: PAULIE OMALLEY M.D. Signed By: PAULIE OMALLEY M.D. PORTABLE CHEST Observed: 06/25/2018 Status: F Source: [facility] 2:11 PM [facility] PORTABLE CHEST Ordering Physician: Dimitri Smith MD 08/17/2018 6:00 AM SINGLE PORTABLE UPRIGHT CHEST 0549 HOURS Clinical Statement: Shortness of breath Comparison: Chest radiograph 08/16/2018 FINDINGS: There is mild elevation right hemidiaphragm with a small right effusion. Bilateral upper lung interstitial and alveolar infiltrates or atypical edema is again seen greatest involving the upper lungs. There is slight improved aeration left lung base. No other change is seen. IMPRESSION: Slight improved aeration left lung base no other change with the exception of mild elevation right hemidiaphragm. ---- Electronic Signature on File ---- Signed By: Johnny Rowan MD [email or web address] Dictated: 08/17/2018 6:41 AM Signed: 08/17/2018 6:42 AM Reported By: JOHNNY ROWAN M.D. Signed By: JOHNNY ROWAN M.D. ABDOMEN OR KUB Observed: 06/25/2018 Status: F Source: [facility] 2:11 PM [facility] ABDOMEN OR KUB Ordering Physician: Dimitri Smith MD 08/17/2018 6:00 AM PORTABLE SUPINE ABDOMEN Clinical Statement: Bowel obstruction Comparison: Plain film 08/16/2018 FINDINGS: There are probable skin folds involving the right upper quadrant. There is less gas within the stomach. There is a large amount of fecal material within the right through transverse colon. There is mild gaseous distention of small bowel improved. IMPRESSION: There remains a moderate amount of stool throughout the right and transverse colon. Diminished gaseous distention of small bowel. Probable skin fold right upper quadrant however recommend right side up decubitus view to confirm lack of free intraperitoneal air. A report was faxed to the referring physician at the time of the study. ---- Electronic Signature on File ---- Signed By: Johnny Rowan MD [email or web address] Dictated: 08/17/2018 6:43 AM Signed: 08/17/2018 6:46 AM Reported By: JOHNNY ROWAN M.D. Signed By: JOHNNY ROWAN M.D. ABDOMEN OR KUB Observed: 06/25/2018 Status: F Source: [facility] 2:11 PM [facility] ABDOMEN OR KUB Ordering Physician: Colette Sloan DO 08/19/2018 9:57 AM ABDOMEN Clinical Statement: Ileus Comparison: August 17, 2018 FINDINGS: There are multiple gaseous distended loops of bowel with distention of the stomach. No enteric tube is in place. No differential air-fluid levels are demonstrated. No change in the surgical clips. No free air or fluid. IMPRESSION: Persistent gaseous distention of the bowels with no enteric tube in place. ---- Electronic Signature on File ---- Signed By: Gold Ware MD [email or web address] Dictated: 08/19/2018 11:42 AM Signed: 08/19/2018 11:44 AM Reported By: GOLD WARE M.D. Signed By: GOLD WARE M.D. ABDOMEN OR KUB Observed: 06/25/2018 Status: F Source: [facility] 2:11 PM [facility] REPOSITORY ABDOMEN OR KUB Ordering Physician: Dimitri Smith MD 08/21/2018 1:01 PM ABDOMEN Clinical Statement: Bowel obstruction Comparison: August 19, 2018 FINDINGS: There are surgical clips in the pelvis similar to the previous study. Multiple distended loops of bowel again demonstrated. No enteric tube is in position. No free air is demonstrated. IMPRESSION: No significant interval change. ---- Electronic Signature on File ---- Signed By: Gold Ware MD [email or web address] Dictated: 08/21/2018 1:36 PM Signed: 08/21/2018 1:38 PM Reported By: GOLD WARE M.D. Signed By: GOLD WARE M.D. LTACHDS Observed: 06/25/2018 Status: UNK Source: [facility] 2[facility] PM [facility] DATE OF ADMISSION: 06/25/2018 DATE OF DISCHARGE: 09/09/2018 ADMITTING DIAGNOSES: 1. Pressure ulcer, stage 4, sacral area with osteomyelitis. 2. Open wound to the left leg. 3. Coronary artery disease with coronary artery bypass graft. 4. Diabetes, type 2. HOSPITAL COURSE: This unfortunate 68-year-old white female had left our facility after treatment for osteomyelitis in her leg after coronary artery bypass graft. She returned to us for treatment of a stage 4 decubitus ulcer with osteomyelitis. She also suffered from severe malnutrition and complications from tube feeds and TPN on occasion. She also had a problem at some point with ileus which improved. She had several fistulas which were repaired surgically. She had been maintained on multiple antibiotics from infectious disease. She underwent a partial flap placement with debridement in May. Unfortunately, the wounds worsened. Antibiotics were changed. General surgery was consulted. She had an ostomy placement by Dr. Sanon. She continued to have drainage and purulence. Antibiotics were changed several times. She developed septic shock in June complicated by shock liver. She had fistula repair. She had acute kidney injury and hyperkalemia from her antibiotics which were changed. She was finally felt by infectious disease that she was running out of options. The wounds on her sacrum and calf had worsened since her previous surgery. There were several antibiotics she was no longer able to tolerate. Infectious disease stated they felt that they were reaching a point of futility. Chance of cure and regaining a normal life were minimal. It was recommended that hospice be considered and to try to get her closer to home for continued treatment and oral antibiotics. Because of thrombocytopenia, the linezolid was stopped and changed to Vabomere. The plan was to send her to a SNF on minocycline and Flagyl for a 2-week course and then to go home and consider hospice after that. DISCHARGE DIAGNOSES: 1. Stage 4 decubitus ulcer of the sacrum status post debridement, flap with osteomyelitis, failing antibiotic therapy, noted futility of further attempts by infectious disease specialist. 2. She is status post surgery for multiple fistulas. 3. Coronary artery disease status post coronary artery bypass graft with subsequent leg osteomyelitis from infection. 4. Diabetes, insulin-dependent. 5. History of ventricular tachycardia. 6. Hypertension. 7. Severe malnutrition. 8. Debility. DISCHARGE MEDICATIONS: Include: 1. Tylenol 650 every 6 hours as needed. [facility] PATIENT NAME: VENITA SMITH [facility] [address] Dr. Faulkner MEDICAL REC #: [id number] [place] [id number] ADMIT DATE: DISCHARGE DATE:09/09/18 ATTENDING CESARIO: Colette Sloan DO 2. Coumadin 3 mg daily. 3. Carvedilol 6.25 mg twice daily. 4. DuoNeb aerosols. 5. Percocet 5/325 one to 2 every 4 hours as needed. 6. Nutritional supplement daily. 7. MiraLAX 17 g daily as needed. 8. Lantus 25 units subcutaneous daily in the evening and 10 units in the morning. 9. Metoprolol 5 mg IV push every 4 hours as needed for heart rate greater than 110. 10. Reglan 10 mg IV every 8 hours. 11. Lasix 40 mg IV daily. 12. Clorpactin 2 g topically. 13. Vitamin C 500 mg daily. 14. Zinc 220 mg daily. 15. P.r.n. Glucagon, dextrose, and glucose. 16. Megace 400 mg twice daily. 17. Colace 100 mg twice daily. 18. Fentanyl patch 25 mcg every 72 hours. 19. Amiodarone 400 mg daily. 20. Radames packet 1 packet twice daily with meals. 21. Sliding scale Humalog. 22. Folic acid 1 mg daily. 23. Remeron 15 mg at night. 24. Melatonin 3 mg at night as needed. 25. Glucosamine chondroitin sulfate 3 tablets daily. 26. Glipizide 20 mg before breakfast. 27. Gabapentin 300 mg 2 pills 3 times daily. 28. Ferrex 150 mg twice daily. Dimitri Smith MD /[id number] SSI File#: [id number] Verified/Reviewed by [facility] PATIENT NAME: VENITA SMITH [facility] Dr. Faulkner MEDICAL REC #: [id number] [place] [address] ADMIT DATE: DISCHARGE DATE:09/09/18 ATTENDING PHY: Colette Sloan.NOTE Observed: 06/25/2018 Status: UNK Source: [facility] 12:17 PM [facility] Patient Name: VENITA SMITH [facility] Date of : [address] [place] [address] Unit Number: [id number] Progress Note-Physician Patient Status: ADM IN Attending Doctor: Mert Sanon MD Service Date: 06/25/18 1217 Subjective S: (2 ROS minimum) Feeling ok, pain controlled, no fever. Objective (ROS) Nursing Vitals Vital Signs (Last) Result Date Time Pulse Ox 100 06/25 1115 O2 Delivery NASAL CANNULA 06/25 1115 O2 Flow Rate 3 06/25 1115 B/P 120/58 06/25 1115 Temp 97.7 06/25 1115 Pulse 102 06/25 1115 Resp 18 06/25 1115 Physical Exam Neurological / Psychiatric Alert Respiratory Normal Breathing Effort, Clear Lungs Cardiovascular Heart RRR, No M / R / G Gastrointestinal Non Tender, No Mass, ostomy in place Skin sacral wound, probes to bone per wound care, appears clean. Assessment and Plan Conclusion 1. 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 No growth of MRSA. 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 AcB was I to minocycline per [facility] micro lab, but very limited other options. Discharged to [facility] for planned 6 week course. At [facility], taken for partial flap placement 05/31. Bone cx with ESBL ecoli, CRE klebs, E faecium, diphtheroids. No Acinetobacter seen. Wound worsened. 06/07 changed bactrim to vanc. Both CRE and ESBL still sensitive to tetracycline, but may need to add colistin eventually. Gen surg consulted; CT abd/pelvis showed fistula. Taken to OR 06/24 for resection and ostomy placement by Dr. Sanon. Vanc trough at goal. D/w wound nurse, sacral wound is stable at this point, no purulence. Continue vanc, meropenem, and minocycline. Will continue to follow. 2. Colonic fistula Disclaimer This dictation was created using voice recognition software. Phonetic and/or minor grammatical errors may exist. eSign Date and Time Syeda Palmer MD Verified/Reviewed by 06/25/18 [facility].NOTE Observed: 06/25/2018 Status: UNK Source: [facility] 7:09 AM [facility] [place] REPOSITORY [facility] Patient Name: VENITA SMITH [address] [place] [address] Date of : [address] [address] Unit Number: [id number] Pharmacy Note Patient Status: ADM IN Attending Doctor: Mert Sanon MD Service Date: 06/25/18 0709 Pharmacy Note - VANCO INIT Initial Note Subjective: Pharmacy to dose vancomycin Assessment: Patient is a 67 year old Female who was admitted and being treated with vancomycin for osteomyelitis. Pharmacy has been consulted to manage vanco. * Height (cm): 160.02 * BMI (kg/m2): 23.2 * Actual weight (kg): 59.42 LABS 06/25/18 0527: Creatinine 0.398 L CrCl: 74 mL/min Plan: 1. Will dose vancomycin 1 gm ( 16.8 mg/kg based on adjusted body weight) every 12 hours given patient's renal function, age, and weight. 2. Will target goal trough 15-20 for osteomyelitis. 3. Will order trough before fourth dose of this regimen and adjust as necessary. Disclaimer This dictation was created using voice recognition software. Phonetic and/or minor grammatical errors may exist. eSign Date and Time Valerie Marinelli Pharm Verified/Reviewed by 06/25/18 0711 Donald Crawford PharmD CBC W/DIFF Collected: 06/25/2018 Status: F Source: [facility] 5:27 AM [facility] [place] REPOSITORY Order Comment: [place]: TYPE CODE TESTS RESULT OUT OF RANGE REFERENCE UNITS LAB L200.33565 4.5-11.0 K/CU MM WBC Normal 10.0 LAB L200.78098 3.90-5.30 M/CU MM Low RBC 3.66 LAB L200.98190 11.5-15.5 G/DL Low HGB 10.4 LAB L200.68591 35.0-47.0 % Low HCT 32.3 LAB L200.14388 80.0-99.0 fl MCV Normal 88.3 LAB L200.68683 32.0-36.0 GM/DL MCHC Normal 32.2 LAB L200.81801 11-14.5 High RDW 15.3 LAB L200.96285 9.4-12.4 Low MPV 8.7 LAB L200.35920 150-450 K/CU MM PLT Normal 312 LAB L200.09597 45-75 % High NEUTROPHILS % 86.0 LAB L200.61540 Less than 2 % IMMATURE Normal GRAN % 1.6 LAB L200.59103 20-40 % Low LYMPH % 6.6 LAB L200.01665 2-10 % MONOCYTE % Normal 5.5 LAB L200.02819 0-5 % EOSINOPHIL Normal % 0.0 LAB L200.25229 0-2 % BASOPHIL % Normal 0.3 LAB L200.04487 2.0-8.3 K/CU MM High NEUTROPHIL ABS 8.60 LAB L200.95170 Less than 2 K/CU MM IMMATR GRAN Normal ABS 0.20 LAB L200.16931 0.9-4.4 K/CU MM Low LYMPH ABS 0.70 LAB L200.02402 0.1-1.1 K/CU MM MONO ABS Normal 0.60 LAB L200.46943 0-0.5 K/CU MM EOS ABS Normal 0.00 LAB L200.37200 0-0.2 K/CU MM BASO ABS Normal 0.00 LAB L200.29328 Less than 1 % NRBC Normal 0.0 Performed By: #### L200.99828 #### [facility] [address] [place] [address] BMP Collected: 06/25/2018 Status: F Source: [facility] 5:27 AM [facility] REPOSITORY Order Comment: [place]: M TYPE CODE TESTS RESULT OUT OF RANGE REFERENCE UNITS LAB L500.04896 136-145 MMOL/L Normal NA 136 LAB L500.36981 3.5-5.1 MMOL/L Normal K 5.0 LAB L500.53281 98-107 MMOL/L Normal CL 100 LAB L500.92245 21-32 MMOL/L Normal CO2 22 LAB L500.67492 5-16 MMOL/L Normal AGAP 15 LAB L500.05550 70-100 MG/DL High GLU 265 Result Comment: 70-100- Normal Fasting; 100-125 Impaired Fasting; greater than 126 on more than one result- Diabetes. ADA guidelines. Results may be falsely elevated after the administration of Sulfapyridine. Results may be falsely depressed after the administration of Sulfasalazine. LAB L500.76323 7-26 MG/DL Normal BUN 12 LAB L500.43918 0.510-0.950 MG/DL Low CREAT 0.398 Result Comment: Patients receiving either N-Acetylcysteine (NAC) or Metamizole prior to venipuncture, may have falsely depressed results. LAB L500.62276 15-24 BUN/CREA High 30 LAB L500.19709 8.5-10.1 MG/DL Low CALCIUM TOTAL 8.2 Performed By: #### L500.56935, L500.89199 #### [facility] [address] [place] [id number] GFR EST Collected: 06/25/2018 Status: F Source: [facility] 5:27 AM [facility] REPOSITORY Order Comment: [place]: M TYPE CODE TESTS RESULT OUT OF RANGE REFERENCE UNITS LAB L500.15132 ML/MIN Normal IF non-AFR Greater than AMER 60 LAB L500.88910 ML/MIN Normal IF Greater than AMER 60 Performed By: #### L500.98514, L500.51394 #### [facility] [address] [place] [address] SURG Observed: 06/24/2018 Status: F Source: [facility] 6:05 PM [facility] REPOSITORY Patient: VENITA SMITH SPECIMEN: [id number] Collection Date: 06/24/181804 Received: 06/25/18 Status: MILENA Freitas DrCiera: Mert Sanon MD Ph# Othr. Dr.: No Family Physician given Material for Examination: A SIGMOID COLON PRE-OP DIAGNOSIS: COLOVESICAL FISTULA POST-OP DIAGNOSIS: SAME SURGICAL PROCEDURE: LAPAROTOMY, BOWEL RESECTION, COLOSTOMY DIAGNOSIS A. Sigmoid colon, resection: Portion of colon (21.3 cm in length) with: - Defect/hole with surrounding granulation tissue with acute and chronic inflammation, focal areas of fibrosis, vascular congestion and hemorrhage. - Diverticulosis with diverticulitis with perforation in one of the diverticula with surrounding abscess formation. - Adjacent areas of colonic mucosa ulceration with underlying granulation tissue. - Viable resection margins with no inflammation. - Six pericolonic lymph nodes with reactive changes. GROSS DESCRIPTION The specimen is received in formalin and labeled with the patient's name, ID and designated sigmoid colon, is a portion of colon 21.3 cm in length and marginal diameters ranging between 2.7 and 2.9 cm. The serosal surface is spangler-pink, ragged and a defect/hole is identified, 1.5 x 1.0 cm. Grossly, this is 6.0 cm from the nearest margin. The mucosa bulging from this defect had a somewhat brown appearance. Also identified is a possible diverticulum that has perforated the colon wall and has a large red base that forms a ragged cavity, 8.2 cm in greatest dimension. Grossly, this is 7.0 cm from the nearest margin. The mucosa near this possible perforated diverticulum has a red, roughened and ulcerative appearance in an area that is 3.2 cm in greatest dimension. A second area of red roughened mucosa that is ulcerative and may have adjacent pseudopolyps is identified, 3.0 cm in greatest dimension. Grossly, this is 2.5 cm from the nearest margin and is 6.0 cm from the first described red rough and ulcerative mucosa. The red cavity from the perforated diverticulum extends to this area. An additional diverticulum is identified which does not perforate the colon wall. The remainder of the mucosa is unremarkable. Three possible lymph nodes are identified ranging in size from 0.2-0.9 cm. Ghost Writer sections are submitted in cassettes A1 through A10. SECTION SUMMARY: A1. Margins A2. Sections of the defect/hole A3-4. Perforated diverticulum A5. Red ulcerative mucosa near the perforated diverticulum A6-7. Ghost Writer sections of the second described red roughened area [facility] NAME: VENITA SMITH Pathology and Laboratory Medicine UNIT#: [id number] [address]: [address] Equipment Mechanic: Latrice Osorio M.D. [facility] [id number] ROOM/BED: [id number] [place], [facility] : 49 AGE/SEX: 67/F ORD.DR. Sanon,Mert Contreras MD CONTINUED ON NEXT PAGE Patient: VENITA SMITH Unit#: [id number] (continued) SPECIMEN: [id number] GROSS DESCRIPTION A8. Ghost Writer sections of the red roughened area with adjacent unremarkable mucosa A9. Scant possible diverticula A10. 3 possible lymph nodes MICROSCOPIC DESCRIPTION Ten Sruthi stained slides examined. COPIES TO: Mert Sanon MD No Family Physician given Signed Verified/Reviewed by HEIDI QUINTANILLA MD 06/28/18 This dictation was created using voice recognition software. Phonetic and/or minor grammatical errors may exist. [facility] NAME: VENITA SMITH Pathology and Laboratory Medicine UNIT#: [id number] LOC: [address] Equipment Mechanic: Latrice Osorio M.D. [facility] [id number] ROOM/BED: [id number] [employer] : 48 AGE/SEX: 67/F ORD.Mert Quigley MD END OF REPORT OR Observed: 06/24/2018 Status: UNK Source: [facility] 2:05 PM [facility] REPOSITORY DATE OF SERVICE: 06/24/2018 PREOPERATIVE DIAGNOSIS: Colovesical fistula. POSTOPERATIVE DIAGNOSIS: Colovesical fistula. Likely chronic ischemia, ischemic stricture, sigmoid colon, with diverticulitis and inflammation involving the proximal sigmoid extending into the distal descending colon. OPERATION: 1. Exploratory laparotomy. 2. Resection of the sigmoid colon. Augustin's pouch. 3. Splenic flexure takedown. 4. Descending colon colostomy. SURGEON: Mert Sanon MD ANESTHESIA: General anesthesia. PROCEDURE AND FINDINGS: With the patient in a supine position, after appropriate preparation and draping, under general endotracheal anesthesia, a midline incision was made extending from the umbilicus down towards the symphysis pubis. Dissection was carried down through subcutaneous tissue and linea alba. Retractors were then placed. It was immediately determined there was significant induration around the sigmoid colon, urinary bladder, and the pelvic structures. Inflammation extended into the distal descending colon and this was tightly adherent to the pelvic wall and the lateral paracolic gutter. We then proceeded initially with mobilizing the descending colon. The avascular plane of the descending colon was incised towards the indurated area. Once we encountered the indurated area, blunt dissection was performed posteriorly. Dissection was kept close to the bowel wall itself. Eventually we were able to deliver the distal end of the descending colon. Attention was then placed to the sigmoid colon. This was tightly adherent to the posterior wall of the bladder. There was a segment of free sigmoid colon noted laterally down in the pelvis. Attention was placed to this distal segment of sigmoid colon. Again dissection proceeded proximally to free up the bowel from the posterior wall of the bladder. We did encounter the defect in the sigmoid colon leading towards the colovesical fistula. There was significant induration of the posterior wall of the bladder. However, there was no neva fistula noted. There was no actual hole in the bladder noted. There was a perforated segment of the sigmoid colon, chronic, but probably [facility] PATIENT NAME: VENITA SMITH [facility] Dr. [facility]ner MEDICAL REC #: [id number] [place] [address] ADMIT DATE: 06/24/18 DISCHARGE DATE: 06/25/18 OPERATIVE REPORT ATTENDING PHY: Mert Sanon MD related to the fistula formation. Once we were able to take out all the indurated tissue, we were then able to elevate the colon towards midline. The mesentery was then scored. Again dissection was kept close to the bowel itself to decrease any chances of injuring any of the major vascular as well as genitourinary structures. Distal point of transected was then carried at of the rectosigmoid junction. Proximal point of transection was chosen at approximately the mid-descending colon just distal to the left colic vessels. During the dissection process, prior to devascularizing, it was noted that the sigmoid colon was significantly indurated and strictured. Most likely this is from chest ischemia as well as possible recurrent diverticulitis. Specimen was then sent to pathology. Distal and proximal transection was carried out utilizing a DANE stapler and specimen was sent to pathology. The operative field was copiously irrigated. There continued to be some oozing from the raw surfaces of the indurated regions. Hemostasis was achieved utilizing cautery. Attention was then placed to the posterior wall of the bladder. The wall itself appeared to be quite intact. If there was a fistula, this was likely microscopic. There was no actual bladder repair that was indicated. Attention was then placed to the stump of the descending colon. The vascular plane was completed all the way up towards the splenic flexure. To allow for better mobilization, splenic flexure was taken down and the splenic flexure was delivered towards the midline. The stump was then inspected and found to be quite viable. The operative field again was copiously irrigated. Hemostasis was confirmed. A button of skin was then taken out of the left upper quadrant. Both anterior and posterior rectus was incised. Rectus muscle was incised along its fibers and the stump of the descending colon was delivered out of this ostomy site. With sponge, lap, instrument counts correct, with hemostasis confirmed, we elected to leave a drain down in the pelvis. A 19-[place] Agus-Siddiqui was passed down through a separate stab wound and secured to the abdominal wall. Fascia was then approximated with running number 1 PDS, interrupted in two segments. Subcutaneous tissue was copiously irrigated. We elected to close the subcutaneous tissue as there was no gross purulence encountered. Skin was then approximated. The colostomy was immediately matured at bedside. Colostomy bag was then placed. The patient tolerated the procedure well. Blood loss was less than 20 mL. Wound expectancy is clean. There were no complications. [facility] PATIENT NAME: VENITA SMITH [facility] Dr. Faulkner MEDICAL REC #: [id number] [place] [address] ADMIT DATE: 06/24/18 DISCHARGE DATE: 06/25/18 OPERATIVE REPORT ATTENDING PHY: Mert Sanon MD Mert Sanon MD [id number] [facility] File#: [id number] Verified/Reviewed by 06/26/18 1432 [facility] PATIENT NAME: VENITA SMITH [facility] Dr. Faulkner MEDICAL REC #: [id number] [place] [address] ADMIT DATE: 06/24/18 DISCHARGE DATE: 06/25/18 OPERATIVE REPORT ATTENDING PHY: Mert Sanon MD DS Observed: 06/24/2018 Status: UNK Source: [facility] 2:05 [facility] REPOSITORY DATE OF ADMISSION: 06/24/2018 DATE OF DISCHARGE: 06/25/2018 CLINICAL COURSE: The patient is a 67-year-old female, documented to have sepsis from multiple sources. Seen at [address] [place] [address]. Also diagnosed to have a [place] vesical fistula. She was brought to the operating room and underwent sigmoid colon resection, colostomy. Intraoperative course essentially unremarkable. She was subsequently admitted to [facility]. I was notified by [address] [place] [address] that they are capable of taking care of postoperative patients. The patient is therefore being discharged from [facility] to long-term acute care facility, [address]. Mert Sanon MD /[id number] [facility] File#: [id number] Verified/Reviewed by 06/27/[address] [facility] PATIENT NAME: VENITA SMITH [facility] Dr. Faulkner MEDICAL REC #: [id number] [place] [address] ADMIT DATE: 06/24/18 DISCHARGE DATE: 06/25/18 DISCHARGE SUMMARY ATTENDING PHY: Mert Sanon MD PT Collected: 06/24/2018 Status: F Source: [facility] 4:35 AM [facility] REPOSITORY Order Comment: [place]: TYPE CODE TESTS RESULT OUT OF RANGE REFERENCE UNITS LAB L300.22828 0.9-1.1 Normal INR 1.07 Result Comment: Recommended PT INR therapeutic range for detention and prophylactic therapy is 2.0 - 3.0. For heart valve and shunt patients the range is 2.5 - 3.5. LAB L300.82606 9.5-12.0 SECONDS Normal PTS 11.4 Performed By: #### L300.72241 #### [facility] [address] [place] [address] CMP Collected: 06/24/2018 Status: F Source: [facility] 4:35 AM [facility] REPOSITORY Order Comment: [place]: M TYPE CODE TESTS RESULT OUT OF RANGE REFERENCE UNITS LAB L500.62629 136-145 MMOL/L Low NA 134 LAB L500.87697 3.5-5.1 MMOL/L Normal K 4.5 Result Comment: Slight Hemolysis, Result may be falsely increased. LAB L500.47946 98-107 MMOL/L Low CL 97 LAB L500.64416 21-32 MMOL/L Normal CO2 25 LAB L500.67943 5-16 MMOL/L Normal AGAP 12 LAB L500.52453 70-100 MG/DL High GLU 181 Result Comment: 70-100- Normal Fasting; 100-125 Impaired Fasting; greater than 126 on more than one result- Diabetes. ADA guidelines. Results may be falsely elevated after the administration of Sulfapyridine. Results may be falsely depressed after the administration of Sulfasalazine. LAB L500.86968 7-26 MG/DL Normal BUN 15 LAB L500.80264 0.510-0.950 MG/DL Low CREAT 0.340 Result Comment: Patients receiving either N-Acetylcysteine (NAC) or Metamizole prior to venipuncture, may have falsely depressed results. LAB L500.59510 15-24 High BUN/CREA 43 LAB L500.47859 6.0-8.5 GM/DL Low TP 5.0 LAB L500.80162 3.2-5.0 GM/DL Low ALBUMIN 1.6 LAB L500.65315 2.2-4.2 GM/DL Normal GLOBULIN 3.4 LAB L500.16072 0.8-2.0 Low A/G RATIO 0.5 LAB L500.81446 8.5-10.1 MG/DL Low CALCIUM TOTAL 8.3 LAB L500.93644 0.2-1.0 MG/DL Normal BILI TOTAL 0.3 LAB L500.43013 8-34 U/L Normal SGOT (AST) 22 Result Comment: Slight Hemolysis, Result may be falsely increased. RESULTS MAY BE FALSELY DEPRESSED AFTER THE ADMINISTRATION OF SULFASALAZINE AND/OR SULFAPYRIDINE. LAB L500.30894 13-61 IU/L Normal SGPT (ALT) 30 Result Comment: RESULTS MAY BE FALSELY DEPRESSED AFTER THE ADMINISTRATION OF SULFASALAZINE AND/OR SULFAPYRIDINE. LAB L500.67623 45-117 U/L Normal ALK PHOS 89 Performed By: #### L500.38320, L500.10883, L500.43053, L500.91062 #### [facility] [address] [place] [address] GFR EST Collected: 06/24/2018 Status: F Source: [facility] 4:35 AM [facility] REPOSITORY Order Comment: [place]: M TYPE CODE TESTS RESULT OUT OF RANGE REFERENCE UNITS LAB L500.76795 ML/MIN Normal IF non-AFR Greater than AMER 60 LAB L500.27451 ML/MIN Normal IF Greater than AMER 60 Performed By: #### L500.55813, L500.81606, L500.65550, L500.33611 #### [facility] [address] [place] [address] PHOS Collected: 06/24/2018 Status: F Source: [facility] 4:35 AM [facility] REPOSITORY Order Comment: [place]: M TYPE CODE TESTS RESULT OUT OF RANGE REFERENCE UNITS LAB L500.26650 2.5-4.9 MG/DL Normal PHOS 3.5 Performed By: #### L500.13372, L500.75011, L500.08427, L500.21052 #### [facility] [address] [place] [address] MAGNESIUM Collected: 06/24/2018 Status: F Source: [facility] 4:35 AM [facility] REPOSITORY Order Comment: [place]: M TYPE CODE TESTS RESULT OUT OF RANGE REFERENCE UNITS LAB L500.27563 1.6-2.6 MG/DL Normal MAGNESIUM 1.9 Result Comment: Slight Hemolysis, Result may be falsely increased. Performed By: #### L500.96960, L500.63860, L500.44035, L500.80912 #### [facility] [address] [place] [address] CBC W/DIFF Collected: 06/24/2018 Status: F Source: [facility] 4:35 AM [facility] REPOSITORY Order Comment: [place]: M TYPE CODE TESTS RESULT OUT OF REFERENCE UNITS RANGE LAB L200.59122 4.5-11.0 K/CU MM WBC Normal 7.9 LAB L200.69823 3.90-5.30 M/CU MM Low RBC 3.61 LAB L200.60220 11.5-15.5 G/DL Low HGB 10.2 LAB L200.17865 35.0-47.0 % Low HCT 32.3 LAB L200.10994 80.0-99.0 fl MCV Normal 89.5 LAB L200.64111 32.0-36.0 GM/DL Low MCHC 31.6 LAB L200.83104 11-14.5 RDW High 15.4 LAB L200.96684 9.4-12.4 Low MPV 8.6 LAB L200.73768 150-450 K/CU MM PLT Normal 287 LAB L200.37649 45-75 % NEUTROPHILS High % 80.0 LAB L200.86528 0-7 % BAND % High 8.0 LAB L200.11664 % META % Normal 2.0 LAB L200.48184 % MYELOCYTE % Normal 0.0 LAB L200.92238 % Normal PROMYELOCYTE % 0.0 LAB L200.02352 20-40 % Low LYMPH % 8.0 LAB L200.08806 % ATYP LYMPH Normal % 0.0 LAB L200.30637 2-10 % MONOCYTE % Normal 2.0 LAB L200.83122 0-5 % EOSINOPHIL Normal % 0.0 LAB L200.64527 0-2 % BASOPHIL % Normal 0.0 LAB L200.86178 0 % BLAST % Normal 0.0 LAB L200.73083 % OTHER % Normal 0 LAB L200.33448 2.0-8.3 K/CU MM NEUTROPHIL Normal ABS 6.32 LAB L200.24357 K/CU MM BAND ABS Normal 0.63 LAB L200.35895 K/CU MM META ABS Normal 0.16 LAB L200.91755 0.9-4.4 K/CU MM Low LYMPH ABS 0.63 LAB L200.49823 0.1-1.1 K/CU MM MONO ABS Normal 0.16 LAB L200.56049 Less than 1 % NRBC Normal 0.0 LAB L200.47531 HYPO Normal 1+ LAB L200.32656 PLT EST Normal ADEQUATE Performed By: #### L200.06333 #### [facility] [address] [place] [address] TS Collected: 06/24/2018 Status: F Source: [facility] 4:34 AM [facility] REPOSITORY Order Comment: [place]: M Tranfuse Now? N Patient transfused or in the past 3 months: NO Non - Acute Hemorrhage Indication: Other Other Indication: HOLD FOR SURGERY ON Sunday06/24/18 Irradiated: N Washed: N Transfuse slowly @ 60mL/hr x15min, then increase to infuse: Over 4 Hours TYPE CODE TESTS RESULT OUT OF RANGE REFERENCE UNITS LAB B100.0400 A Normal BLOOD TYPE POSITIVE LAB B100.0680 Normal ANTIBODY NEGATIVE SCREEN CBC Collected: 06/23/2018 Status: F Source: [facility] 3:54 AM [facility] REPOSITORY Order Comment: [place]: M TYPE CODE TESTS RESULT OUT OF RANGE REFERENCE UNITS LAB L200.16904 4.5-11.0 K/CU MM Normal WBC 10.8 LAB L200.96382 3.90-5.30 M/CU MM Low RBC 3.59 LAB L200.92288 11.5-15.5 G/DL Low HGB 10.3 LAB L200.30506 35.0-47.0 % Low HCT 31.5 LAB L200.45515 80.0-99.0 fl Normal MCV 87.7 LAB L200.80250 32.0-36.0 GM/DL Normal MCHC 32.7 LAB L200.82666 11-14.5 High RDW 14.9 LAB L200.51241 9.4-12.4 Low MPV 8.5 LAB L200.59544 150-450 K/CU MM Normal PLT 276 LAB L200.31196 Less than 1 % Normal NRBC 0.0 Performed By: #### L200.37885 #### [facility] [place] [address] PT Collected: 06/23/2018 Status: F Source: [facility] 3:54 AM [facility] REPOSITORY Order Comment: [place]: M TYPE CODE TESTS RESULT OUT OF RANGE REFERENCE UNITS LAB L300.53642 0.9-1.1 Normal INR 1.06 Result Comment: 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 For heart valve and shunt patients the range is 2.5 - 3.5. LAB L300.47927 9.5-12.0 SECONDS Normal PTS 11.3 Performed By: #### L300.00576 #### [facility] [place] [address] PT Collected: 06/22/2018 Status: F Source: [facility] 5:55 AM [facility] REPOSITORY Order Comment: [place]: M TYPE CODE TESTS RESULT OUT OF RANGE REFERENCE UNITS LAB L300.23216 0.9-1.1 Normal INR 1.03 Result Comment: 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 For heart valve and shunt patients the range is 2.5 - 3.5. LAB L300.96892 9.5-12.0 SECONDS Normal PTS 11.0 Performed By: #### L300.68165 #### [facility] [address] [place] [address] PROG.NOTE Observed: 06/21/2018 Status: UNK Source: [facility] 9:40 AM [facility] REPOSITORY [facility] Patient Name: VENITA SMITH [address] [place] [address] Date of : [address] [address] Unit Number: [id number] Progress Note-Physician Patient Status: REG RCR Attending Doctor: Colette Sloan DO Service Date: 06/21/18 0940 Subjective S: (2 ROS minimum) Feeling ok, no abd pain, no fever. Objective (ROS) Physical Exam Neurological / Psychiatric Alert Respiratory Normal Breathing Effort, Clear Lungs Cardiovascular tachy Gastrointestinal Non Tender, No Mass Skin No Rash, wound vac in place Assessment and Plan Conclusion 1. 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 No growth of MRSA. 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 AcB was I to minocycline per [facility] lab, but very limited other options. Had planned on 6 week course of abx, picc in place, stop date 06/21. Now s/p partial flap placement 05/31. Bone cx with ESBL ecoli, CRE klebs, E faecium, diphtheroids. No Acinetobacter seen. Wound doing worse. 06/07 changed bactrim to vanc. Both CRE and ESBL still sensitive to tetracycline, but may need to add colistin. Gen surg consulted; CT abd/pelvis now shows fistula. 06/17 planned surgical repair and diverting ostomy placement, delayed now due to elevated INR. Vanc trough elevated, dose adjusted. Vanc trough now at goal. D/w wound nurse, sacral wound is stable at this point. Will continue to follow. Disclaimer This dictation was created using voice recognition software. Phonetic and/or minor grammatical errors may exist. eSign Date and Time Syeda Palmer MD Verified/Reviewed by 06/21/18 0942 PT Collected: 06/21/2018 Status: F Source: [facility] 5:30 AM [facility] REPOSITORY Order Comment: [place]: M TYPE CODE TESTS RESULT OUT OF RANGE REFERENCE UNITS LAB L300.88804 0.9-1.1 Normal INR 1.05 Result Comment: Recommended PT INR therapeutic range for detention and prophylactic therapy is 2.0 - 3.0. For heart valve and shunt patients the range is 2.5 - 3.5. LAB L300.00755 9.5-12.0 SECONDS Normal PTS 11.2 Performed By: #### L300.04615 #### [facility] [address] [place] [address] CBC Collected: 06/21/2018 Status: F Source: [facility] 5:29 AM [facility] REPOSITORY Order Comment: [place]: M TYPE CODE TESTS RESULT OUT OF RANGE REFERENCE UNITS LAB L200.48489 4.5-11.0 K/CU MM Normal WBC 8.2 LAB L200.12528 3.90-5.30 M/CU MM Normal RBC 3.98 LAB L200.97853 11.5-15.5 G/DL Normal HGB 11.5 Result Comment: Repeated and verified. LAB L200.43748 35.0-47.0 % Low HCT 34.1 LAB L200.85398 80.0-99.0 fl Normal MCV 85.7 LAB L200.62295 32.0-36.0 GM/DL Normal MCHC 33.7 LAB L200.57485 11-14.5 High RDW 14.6 LAB L200.04349 9.4-12.4 Low MPV 8.6 LAB L200.05744 150-450 K/CU MM Normal PLT 300 LAB L200.19112 Less than 1 % Normal NRBC 0.0 Performed By: #### L200.03968 #### [facility] [address]# [phone] CBC W/DIFF Collected: 06/20/2018 Status: F Source: [facility] 4:03 AM [facility] REPOSITORY Order Comment: [place]: TYPE CODE TESTS RESULT OUT OF RANGE REFERENCE UNITS LAB L200.05729 4.5-11.0 K/CU MM WBC Normal 5.2 LAB L200.46504 3.90-5.30 M/CU MM Low RBC 2.73 LAB L200.46204 11.5-15.5 G/DL Low HGB 7.4 LAB L200.59562 35.0-47.0 % Low HCT 24.6 LAB L200.73148 80.0-99.0 fl MCV Normal 90.1 LAB L200.61471 32.0-36.0 GM/DL Low MCHC 30.1 LAB L200.11510 11-14.5 High RDW 14.9 LAB L200.99078 9.4-12.4 Low MPV 8.4 LAB L200.65411 150-450 K/CU MM PLT Normal 257 LAB L200.37943 45-75 % NEUTROPHILS Normal % 72.1 LAB L200.42409 Less than 2 % IMMATURE Normal GRAN % 0.6 LAB L200.05820 20-40 % Low LYMPH % 16.7 LAB L200.57368 2-10 % MONOCYTE % Normal 9.8 LAB L200.14071 0-5 % EOSINOPHIL Normal % 0.8 LAB L200.89108 0-2 % BASOPHIL % Normal 0.0 LAB L200.11957 2.0-8.3 K/CU MM NEUTROPHIL Normal ABS 3.80 LAB L200.18757 Less than 2 K/CU MM IMMATR GRAN Normal ABS 0.00 LAB L200.16810 0.9-4.4 K/CU MM LYMPH ABS Normal 0.90 LAB L200.82899 0.1-1.1 K/CU MM MONO ABS Normal 0.50 LAB L200.97318 0-0.5 K/CU MM EOS ABS Normal 0.00 LAB L200.42756 0-0.2 K/CU MM BASO ABS Normal 0.00 LAB L200.65605 Less than 1 % NRBC Normal 0.0 Performed By: #### L200.10011 #### [facility] [address] [place] [address] PT Collected: 06/20/2018 Status: F Source: [facility] 4:03 AM [facility] REPOSITORY Order Comment: [place]: M TYPE CODE TESTS RESULT OUT OF RANGE REFERENCE UNITS LAB L300.45332 0.9-1.1 Normal INR 1.07 Result Comment: Recommended PT INR therapeutic range for detention and prophylactic therapy is 2.0 - 3.0. For heart valve and shunt patients the range is 2.5 - 3.5. LAB L300.83459 9.5-12.0 SECONDS Normal PTS 11.4 Performed By: #### L300.40638 #### [facility] [address] [place] [id number] CMP Collected: 06/20/2018 Status: F Source: [facility] 4:03 AM [facility] REPOSITORY Order Comment: [place]: M TYPE CODE TESTS RESULT OUT OF RANGE REFERENCE UNITS LAB L500.29863 136-145 MMOL/L Normal NA 137 LAB L500.20223 3.5-5.1 MMOL/L Normal K 4.4 LAB L500.99748 98-107 MMOL/L Normal CL 102 LAB L500.16821 21-32 MMOL/L Normal CO2 25 LAB L500.32767 5-16 MMOL/L Normal AGAP 10 LAB L500.76109 70-100 MG/DL High GLU 141 Result Comment: 70-100- Normal Fasting; 100-125 Impaired Fasting; greater than 126 on more than one result- Diabetes. ADA guidelines. Results may be falsely elevated after the administration of Sulfapyridine. Results may be falsely depressed after the administration of Sulfasalazine. LAB L500.56025 7-26 MG/DL Normal BUN 23 LAB L500.14089 0.510-0.950 MG/DL Low CREAT 0.346 Result Comment: Patients receiving either N-Acetylcysteine (NAC) or Metamizole prior to venipuncture, may have falsely depressed results. LAB L500.80036 15-24 High BUN/CREA 68 LAB L500.25863 6.0-8.5 GM/DL Low TP 4.6 LAB L500.87152 3.2-5.0 GM/DL Low ALBUMIN 1.4 LAB L500.50044 2.2-4.2 GM/DL Normal GLOBULIN 3.2 LAB L500.14667 0.8-2.0 Low A/G RATIO 0.4 LAB L500.14011 8.5-10.1 MG/DL Low CALCIUM TOTAL 8.0 LAB L500.37485 0.2-1.0 MG/DL Normal BILI TOTAL 0.4 LAB L500.41134 8-34 U/L Normal SGOT (AST) 15 Result Comment: RESULTS MAY BE FALSELY DEPRESSED AFTER THE ADMINISTRATION OF SULFASALAZINE AND/OR SULFAPYRIDINE. LAB L500.35900 13-61 IU/L Normal SGPT (ALT) 32 Result Comment: RESULTS MAY BE FALSELY DEPRESSED AFTER THE ADMINISTRATION OF SULFASALAZINE AND/OR SULFAPYRIDINE. LAB L500.46257 45-117 U/L Normal ALK PHOS 83 Performed By: #### L500.21527, L500.32845 #### [facility] [address] [place] [address] GFR EST Collected: 06/20/2018 Status: F Source: [facility] 4:03 AM [facility] REPOSITORY Order Comment: [place]: M TYPE CODE TESTS RESULT OUT OF RANGE REFERENCE UNITS LAB L500.52666 ML/MIN Normal IF non-AFR Greater than AMER 60 LAB L500.71299 ML/MIN Normal IF Greater than AMER 60 Performed By: #### L500.46827, L500.38151 #### [facility] [address] [place] [address] VANC TROUGH Collected: 06/20/2018 Status: F Source: [facility] 4:03 AM [facility] REPOSITORY Order Comment: [place]: M TYPE CODE TESTS RESULT OUT OF RANGE REFERENCE UNITS LAB L520.88555 15.0-20.0 MCG/ML Normal VANC TROUGH 15.1 Performed By: #### L520.66760 #### [facility] [address] [place], [place] [id number] TS Collected: 06/20/2018 Status: F Source: [facility] 4:03 AM [facility] REPOSITORY Order Comment: RBC ready - called to KEVIN ON 6M at 1541 06/20/18 by CAROLE ANGLIN [place]: M Tranfuse Now? Y Non - Acute Hemorrhage Indication: Hgb <7 g/dL Irradiated: N Washed: N Transfuse slowly @ 60mL/hr x15min, then increase to infuse: Over 4 Hours TYPE CODE TESTS RESULT OUT OF RANGE REFERENCE UNITS LAB B100.0400 A Normal BLOOD TYPE POSITIVE LAB B100.0680 Normal ANTIBODY NEGATIVE SCREEN RBC NO ACT Collected: 06/20/2018 Status: F Source: [facility] 4:03 AM [facility] REPOSITORY TYPE CODE TESTS RESULT OUT OF REFERENCE UNITS RANGE LAB U800.0005 RBC TRANSFUSED NO ACT PRODUCT: RBC NO ACTIVE BLEED COUNT: 2 PROG.NOTE Observed: 06/19/2018 Status: UNK Source: [facility] 4:43 PM [facility] REPOSITORY [facility] Patient Name: VENITA SMITH [facility] [employer] [facility] [place] Date of : [address] [address] Unit Number: [id number] Progress Note-Physician Patient Status: REG RCR Attending Doctor: Colette Sloan DO Service Date: 06/19/18 1643 Subjective S: (2 ROS minimum) Feeling ok, no fever, no abd pain Objective (ROS) Physical Exam Neurological / Psychiatric Alert Respiratory Normal Breathing Effort, Clear Lungs Cardiovascular Heart RRR, No M / R / G Gastrointestinal Non Tender, No Mass Skin No Rash (no new rash) Assessment and Plan Conclusion 1. 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 No growth of MRSA. 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 AcB was I to minocycline per [facility] lab, but very limited other options. Had planned on 6 week course of abx, picc in place, stop date 06/21. Now s/p partial flap placement 05/31. Bone cx with ESBL ecoli, CRE klebs, E faecium, diphtheroids. No Acinetobacter seen. Wound doing worse. 9/21 changed bactrim to vanc. Both CRE and ESBL still sensitive to tetracycline, but may need to add colistin. Gen surg consulted; CT abd/pelvis now shows fistula. 06/17 planned surgical repair and diverting ostomy placement, delayed now due to elevated INR. Vanc trough elevated, dose adjusted. Repeat trough tomorrow. Will continue to follow. Disclaimer This dictation was created using voice recognition software. Phonetic and/or minor grammatical errors may exist. eSign Date and Time Syeda Palmer MD Verified/Reviewed by 06/19/18 1644 PT Collected: 06/19/2018 Status: F Source: [facility] 4:32 AM [facility] REPOSITORY Order Comment: [place]: M TYPE CODE TESTS RESULT OUT OF RANGE REFERENCE UNITS LAB L300.64965 0.9-1.1 High INR 1.56 Result Comment: 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 For heart valve and shunt patients the range is 2.5 - 3.5. LAB L300.39662 9.5-12.0 SECONDS High 16.7 PTS Performed By: #### L300.78743 #### [facility] [address] [place] [address] VANC TROUGH Collected: 06/18/2018 Status: F Source: [facility] 1:41 PM [facility] REPOSITORY Order Comment: [place]: M TYPE CODE TESTS RESULT OUT OF RANGE REFERENCE UNITS LAB L520.24001 15.0-20.0 MCG/ML Normal VANC TROUGH 17.0 Performed By: #### L520.79828 #### [facility] [address] [place] [address] PT Collected: 06/18/2018 Status: F Source: [facility] 9:00 AM [facility] REPOSITORY Order Comment: [place]: M TYPE CODE TESTS RESULT OUT OF RANGE REFERENCE UNITS LAB L300.56715 0.9-1.1 High INR 2.83 Result Comment: Recommended PT INR therapeutic range for detention and prophylactic therapy is 2.0 - 3.0. For heart valve and shunt patients the range is 2.5 - 3.5. LAB L300.89818 9.5-12.0 SECONDS High 30.3 PTS Performed By: #### L300.08772 #### [facility] [address] [place] [address] VANC TROUGH Collected: 06/18/2018 Status: F Source: [facility] 9:00 AM [facility] REPOSITORY Order Comment: [place]: M TYPE CODE TESTS RESULT OUT OF REFERENCE UNITS RANGE LAB L520.31929 15.0-20.0 MCG/ML High alert VANC TROUGH 20.3 Result Comment: Critical Result(s) Called at: 09:47:42 on 06/18/2018 by: carolina wills to and read back by: VANESSA GUNN RN Performed By: #### L520.47358 #### [facility] [address] [place] [address] PT Collected: 06/18/2018 Status: F Source: [facility] 4:13 AM [facility] REPOSITORY Order Comment: [place]: M TYPE CODE TESTS RESULT OUT OF RANGE REFERENCE UNITS LAB L300.85771 0.9-1.1 High INR 2.64 Result Comment: Recommended PT INR therapeutic range for detention and prophylactic therapy is 2.0 - 3.0. For heart valve and shunt patients the range is 2.5 - 3.5. LAB L300.55439 9.5-12.0 SECONDS High 28.3 PTS Performed By: #### L300.68248 #### [facility] [address] [place] [address] PROG.NOTE Observed: 06/17/2018 Status: UNK Source: [facility] 2:36 PM [facility] Patient Name: VENITA SMITH [address] [place] [address] Date of : [address] [address] Unit Number: [id number] Progress Note-Physician Patient Status: REG RCR Attending Doctor: Colette Sloan DO Service Date: 06/17/18 1436 Subjective S: (2 ROS minimum) Feeling ok, surgery was cancelled due to stooling. No fever. Objective (ROS) Physical Exam Neurological / Psychiatric Alert Respiratory Normal Breathing Effort, Clear Lungs Cardiovascular Heart RRR, No M / R / G Gastrointestinal Non Tender, No Mass Skin No Rash Assessment and Plan Conclusion 1. 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 No growth of MRSA. 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 AcB was I to minocycline per [facility], but very limited other options. Had planned on 6 week course of abx, picc in place, stop date 06/21. Now s/p partial flap placement 05/31. Bone cx with ESBL ecoli, CRE klebs, E faecium, diphtheroids. No Acinetobacter seen. Wound doing worse. 06/07 changed bactrim to vanc. Both CRE and ESBL still sensitive to tetracycline, but may need to add colistin. Gen surg consulted; CT abd/pelvis now shows fistula. 06/17 planned surgical repair and diverting ostomy placement, delayed now to 06/19. Vanc trough elevated, dose adjusted. Will continue to follow. Disclaimer This dictation was created using voice recognition software. Phonetic and/or minor grammatical errors may exist. eSign Date and Time Syeda Palmer MD Verified/Reviewed by 06/17/18 1437 PT Collected: 06/17/2018 Status: F Source: [facility] 4:11 AM [facility] REPOSITORY Order Comment: [place]: M TYPE CODE TESTS RESULT OUT OF RANGE REFERENCE UNITS LAB L300.83596 0.9-1.1 High INR 1.69 Result Comment: Recommended PT INR therapeutic range for detention and prophylactic therapy is 2.0 - 3.0. For heart valve and shunt patients the range is 2.5 - 3.5. LAB L300.81748 9.5-12.0 SECONDS High 18.1 PTS Performed By: #### L300.91872 #### [facility] [address] [place] [address] CBC W/DIFF Collected: 06/17/2018 Status: F Source: [facility] 4:11 AM [facility] REPOSITORY Order Comment: [place]: M TYPE CODE TESTS RESULT OUT OF REFERENCE UNITS RANGE LAB L200.60214 4.5-11.0 K/CU MM WBC Normal 9.0 LAB L200.68392 3.90-5.30 M/CU MM Low RBC 2.98 LAB L200.33884 11.5-15.5 G/DL Low HGB 8.2 LAB L200.08574 35.0-47.0 % Low HCT 26.1 LAB L200.36586 80.0-99.0 fl MCV Normal 87.6 LAB L200.22104 32.0-36.0 GM/DL Low MCHC 31.4 LAB L200.42247 11-14.5 RDW High 14.9 LAB L200.43473 9.4-12.4 Low MPV 8.5 LAB L200.97074 150-450 K/CU MM PLT Normal 291 LAB L200.39001 45-75 % NEUTROPHILS High % 81.1 LAB L200.76233 Less than 2 % IMMATURE Normal GRAN % 0.6 LAB L200.62989 20-40 % Low LYMPH % 9.3 LAB L200.58831 2-10 % MONOCYTE % Normal 8.3 LAB L200.47463 0-5 % EOSINOPHIL Normal % 0.4 LAB L200.67675 0-2 % BASOPHIL % Normal 0.3 LAB L200.41911 2.0-8.3 K/CU MM NEUTROPHIL Normal ABS 7.30 LAB L200.61913 Less than 2 K/CU MM IMMATR GRAN Normal ABS 0.10 LAB L200.00341 0.9-4.4 K/CU MM Low LYMPH ABS 0.80 LAB L200.53464 0.1-1.1 K/CU MM MONO ABS Normal 0.80 LAB L200.33841 0-0.5 K/CU MM EOS ABS Normal 0.00 LAB L200.25476 0-0.2 K/CU MM BASO ABS Normal 0.00 LAB L200.93991 Less than 1 % NRBC Normal 0.0 LAB L200.98553 POLY Normal 1+ LAB L200.53445 HYPO Normal 1+ LAB L200.65130 POIK Normal 1+ LAB L200.15435 PLT EST Normal ADEQUATE LAB L200.04642 PLT MORPH Normal LARGE FORMS NOTED Performed By: #### L200.82125 #### [facility] [address] [id number] CMP Collected: 06/17/2018 Status: F Source: [facility] 4:11 AM [facility] REPOSITORY Order Comment: [place]: M TYPE CODE TESTS RESULT OUT OF RANGE REFERENCE UNITS LAB L500.73429 136-145 MMOL/L Low NA 134 LAB L500.02922 3.5-5.1 MMOL/L Normal K 4.8 LAB L500.21741 98-107 MMOL/L Normal CL 99 LAB L500.51119 21-32 MMOL/L Normal CO2 24 LAB L500.41811 5-16 MMOL/L Normal AGAP 11 LAB L500.24746 70-100 MG/DL High GLU 211 Result Comment: 70-100- Normal Fasting; 100-125 Impaired Fasting; greater than 126 on more than one result- Diabetes. ADA guidelines. Results may be falsely elevated after the administration of Sulfapyridine. Results may be falsely depressed after the administration of Sulfasalazine. LAB L500.08293 7-26 MG/DL High BUN 30 LAB L500.40427 0.510-0.950 MG/DL Low CREAT 0.394 Result Comment: Patients receiving either N-Acetylcysteine (NAC) or Metamizole prior to venipuncture, may have falsely depressed results. LAB L500.45171 15-24 High BUN/CREA 76 LAB L500.42916 6.0-8.5 GM/DL Low TP 4.9 LAB L500.15127 3.2-5.0 GM/DL Low ALBUMIN 1.4 LAB L500.99532 2.2-4.2 GM/DL Normal GLOBULIN 3.5 LAB L500.98878 0.8-2.0 Low A/G RATIO 0.4 LAB L500.90930 8.5-10.1 MG/DL Low CALCIUM TOTAL 8.0 LAB L500.24943 0.2-1.0 MG/DL Normal BILI TOTAL 0.5 LAB L500.66220 8-34 U/L High SGOT (AST) 38 Result Comment: RESULTS MAY BE FALSELY DEPRESSED AFTER THE ADMINISTRATION OF SULFASALAZINE AND/OR SULFAPYRIDINE. LAB L500.81576 13-61 IU/L Normal SGPT (ALT) 51 Result Comment: RESULTS MAY BE FALSELY DEPRESSED AFTER THE ADMINISTRATION OF SULFASALAZINE AND/OR SULFAPYRIDINE. LAB L500.97632 45-117 U/L Normal ALK PHOS 95 Performed By: #### L500.89938, L500.79023, L500.03005, L500.82051 #### [facility] [place] [address] GFR EST Collected: 06/17/2018 Status: F Source: [facility] 4:11 AM [facility] REPOSITORY Order Comment: [place]: M TYPE CODE TESTS RESULT OUT OF RANGE REFERENCE UNITS LAB L500.29945 ML/MIN Normal IF non-AFR Greater than AMER 60 LAB L500.67263 ML/MIN Normal IF Greater than AMER 60 Performed By: #### L500.93798, L500.38017, L500.02308, L500.13776 #### [facility] [address] [place] [address] PHOS Collected: 06/17/2018 Status: F Source: [facility] 4:11 AM [facility] REPOSITORY Order Comment: [place]: M TYPE CODE TESTS RESULT OUT OF RANGE REFERENCE UNITS LAB L500.42887 2.5-4.9 MG/DL Normal PHOS 3.5 Performed By: #### L500.65598, L500.77893, L500.11207, L500.44890 #### [facility] [address] [place] [address] MAGNESIUM Collected: 06/17/2018 Status: F Source: [facility] 4:11 AM [facility] REPOSITORY Order Comment: [place]: M TYPE CODE TESTS RESULT OUT OF RANGE REFERENCE UNITS LAB L500.92314 1.6-2.6 MG/DL Normal MAGNESIUM 1.7 Performed By: #### L500.44487, L500.46588, L500.69806, L500.38727 #### [facility] [address] [place] [address] CBC Collected: 06/16/2018 Status: F Source: [facility] 3:59 AM [facility] REPOSITORY Order Comment: [place]: M TYPE CODE TESTS RESULT OUT OF RANGE REFERENCE UNITS LAB L200.18178 4.5-11.0 K/CU MM High WBC 11.5 LAB L200.82805 3.90-5.30 M/CU MM Low RBC 3.10 LAB L200.47138 11.5-15.5 G/DL Low HGB 8.4 LAB L200.82392 35.0-47.0 % Low HCT 27.7 LAB L200.36141 80.0-99.0 fl Normal MCV 89.4 LAB L200.62910 32.0-36.0 GM/DL Low MCHC 30.3 LAB L200.94603 11-14.5 High RDW 15.4 LAB L200.18414 9.4-12.4 Low MPV 8.6 LAB L200.42103 150-450 K/CU MM Normal PLT 326 LAB L200.71318 Less than 1 % Normal NRBC 0.0 Performed By: #### L200.01572 #### [facility] [address] [place] [address] PT Collected: 06/16/2018 Status: F Source: [facility] 3:59 AM [facility] REPOSITORY Order Comment: [place]: M TYPE CODE TESTS RESULT OUT OF RANGE REFERENCE UNITS LAB L300.56743 0.9-1.1 High INR 1.37 Result Comment: 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 For heart valve and shunt patients the range is 2.5 - 3.5. LAB L300.47150 9.5-12.0 SECONDS High 14.7 PTS Performed By: #### L300.49471 #### [facility] [address] [place] [address] BMP Collected: 06/16/2018 Status: F Source: [facility] 3:58 AM [facility] REPOSITORY Order Comment: [place]: M TYPE CODE TESTS RESULT OUT OF RANGE REFERENCE UNITS LAB L500.45104 136-145 MMOL/L Normal NA 136 LAB L500.87060 3.5-5.1 MMOL/L Normal K 4.6 LAB L500.62720 98-107 MMOL/L Normal CL 102 LAB L500.39205 21-32 MMOL/L Normal CO2 24 LAB L500.52592 5-16 MMOL/L Normal AGAP 10 LAB L500.93130 70-100 MG/DL High GLU 139 Result Comment: 70-100- Normal Fasting; 100-125 Impaired Fasting; greater than 126 on more than one result- Diabetes. ADA guidelines. Results may be falsely elevated after the administration of Sulfapyridine. Results may be falsely depressed after the administration of Sulfasalazine. LAB L500.83388 7-26 MG/DL High BUN 33 LAB L500.48391 0.510-0.950 MG/DL Low CREAT 0.397 Result Comment: Patients receiving either N-Acetylcysteine (NAC) or Metamizole prior to venipuncture, may have falsely depressed results. LAB L500.65724 15-24 BUN/CREA High 83 LAB L500.58411 8.5-10.1 MG/DL Low CALCIUM TOTAL 8.1 Performed By: #### L500.00279, L500.94415 #### [facility] [address] [place] [address] GFR EST Collected: 06/16/2018 Status: F Source: [facility] 3:58 AM [facility] REPOSITORY Order Comment: [place]: M TYPE CODE TESTS RESULT OUT OF RANGE REFERENCE UNITS LAB L500.10030 ML/MIN Normal IF non-AFR Greater than AMER 60 LAB L500.59079 ML/MIN Normal IF Greater than AMER 60 Performed By: #### L500.05668, L500.03140 #### [facility] [address] [place] [address] PT Collected: 06/15/2018 Status: F Source: [facility] 4:14 AM [facility] REPOSITORY Order Comment: [place]: M TYPE CODE TESTS RESULT OUT OF RANGE REFERENCE UNITS LAB L300.43110 0.9-1.1 High INR 1.76 Result Comment: Recommended PT INR therapeutic range for detention and prophylactic therapy is 2.0 - 3.0. For heart valve and shunt patients the range is 2.5 - 3.5. LAB L300.25528 9.5-12.0 SECONDS High 18.8 PTS Performed By: #### L300.35236 #### [facility] [address] [place] [address] PROG.NOTE Observed: 06/14/2018 Status: UNK Source: [facility] 10:30 AM [facility] REPOSITORY [facility] Patient Name: VENITA SMITH [address] Date of : [address] [address] Unit Number: [id number] Progress Note-Physician Patient Status: REG RCR Attending Doctor: Colette Sloan DO Service Date: 06/14/18 1030 Subjective S: (2 ROS minimum) Feeling ok, no abd pain. OR planned for Sunday. No fever. Objective (ROS) Physical Exam Neurological / Psychiatric Alert Respiratory Normal Breathing Effort, Clear Lungs Cardiovascular Heart RRR, No M / R / G Gastrointestinal Non Tender, No Mass Skin no new rash Assessment and Plan Conclusion 1. 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 No growth of MRSA. 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 AcB was I to minocycline per [facility] [facility] lab, but very limited other options. Had planned on 6 week course of abx, picc in place, stop date 06/21. Now s/p partial flap placement 05/31. Bone cx with ESBL ecoli, CRE klebs, E faecium, diphtheroids. No Acinetobacter seen. Wound doing worse. 06/07 changed bactrim to vanc. Both CRE and ESBL still sensitive to tetracycline, but may need to add colistin. Gen surg consulted; CT abd/pelvis now shows fistula. 06/17 planned surgical repair and diverting ostomy placement. Vanc trough elevated, dose adjusted. Will continue to follow. Disclaimer This dictation was created using voice recognition software. Phonetic and/or minor grammatical errors may exist. eSign Date and Time Syeda Palmer MD Verified/Reviewed by 06/14/18 1031 CBC Collected: 06/13/2018 Status: F Source: [facility] 4:12 AM [facility] REPOSITORY Order Comment: [place]: M TYPE CODE TESTS RESULT OUT OF RANGE REFERENCE UNITS LAB L200.33137 4.5-11.0 K/CU MM Normal WBC 7.6 LAB L200.23091 3.90-5.30 M/CU MM Low RBC 3.50 LAB L200.20339 11.5-15.5 G/DL Low HGB 9.9 LAB L200.72909 35.0-47.0 % Low HCT 30.5 LAB L200.51022 80.0-99.0 fl Normal MCV 87.1 LAB L200.44742 32.0-36.0 GM/DL Normal MCHC 32.5 LAB L200.49827 11-14.5 High RDW 15.4 LAB L200.01095 9.4-12.4 Low MPV 8.4 LAB L200.10223 150-450 K/CU MM Normal PLT 361 LAB L200.45620 Less than 1 % Normal NRBC 0.0 Performed By: #### L200.37096 #### [facility] [address] [place] [address] PT Collected: 06/13/2018 Status: F Source: [facility] 4:12 AM [facility] REPOSITORY Order Comment: [place]: M TYPE CODE TESTS RESULT OUT OF RANGE REFERENCE UNITS LAB L300.67613 0.9-1.1 High INR 2.02 Result Comment: Recommended PT INR therapeutic range for detention and prophylactic therapy is 2.0 - 3.0. For heart valve and shunt patients the range is 2.5 - 3.5. LAB L300.37473 9.5-12.0 SECONDS High 21.6 PTS Performed By: #### [id number] #### [facility] [address] [place] [address] BMP Collected: 06/13/2018 Status: F Source: [facility] 4:12 AM [facility] REPOSITORY Order Comment: [place]: M TYPE CODE TESTS RESULT OUT OF RANGE REFERENCE UNITS LAB L500.77266 136-145 MMOL/L Normal NA 138 LAB L500.36603 3.5-5.1 MMOL/L Normal K 4.8 LAB L500.98868 98-107 MMOL/L Normal CL 102 LAB L500.72734 21-32 MMOL/L Normal CO2 25 LAB L500.59001 5-16 MMOL/L Normal AGAP 10 LAB L500.71428 70-100 MG/DL High GLU 112 Result Comment: 70-100- Normal Fasting; 100-125 Impaired Fasting; greater than 126 on more than one result- Diabetes. ADA guidelines. Results may be falsely elevated after the administration of Sulfapyridine. Results may be falsely depressed after the administration of Sulfasalazine. LAB L500.25297 7-26 MG/DL High BUN 37 LAB L500.33821 0.510-0.950 MG/DL Low CREAT 0.347 Result Comment: Patients receiving either N-Acetylcysteine (NAC) or Metamizole prior to venipuncture, may have falsely depressed results. LAB L500.36844 15-24 High BUN/CREA 107 LAB L500.40281 8.5-10.1 MG/DL Normal CALCIUM TOTAL 9.0 Performed By: #### L500.99612, L500.88513 #### [facility] [place] [address] GFR EST Collected: 06/13/2018 Status: F Source: [facility] 4:12 AM [facility] REPOSITORY Order Comment: [place]: TYPE CODE TESTS RESULT OUT OF RANGE REFERENCE UNITS LAB L500.88585 ML/MIN Normal IF non-AFR Greater than AMER 60 LAB L500.71254 ML/MIN Normal IF Greater than AMER 60 Performed By: #### L500.74721, L500.49440 #### [facility] [address] [place] [address] PROG.NOTE Observed: 06/12/2018 Status: UNK Source: [facility] 3:55 PM [facility] REPOSITORY [facility] Patient Name: VENITA SMITH [address] [place] [address] Date of : [address] [address] Unit Number: [id number] Progress Note-Physician Patient Status: REG RCR Attending Doctor: Colette Sloan DO Service Date: 06/12/18 1555 Subjective S: (2 ROS minimum) Feeling ok, no abd pain, no fever. Objective (ROS) Physical Exam Neurological / Psychiatric Alert Respiratory Normal Breathing Effort, Clear Lungs Cardiovascular Heart RRR, No M / R / G Gastrointestinal Non Tender, No Mass Skin No Rash (no new rash) Assessment and Plan Conclusion 1. 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 No growth of MRSA. 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 AcB was I to minocycline per [facility], but very limited other options. Had planned on 6 week course of abx, picc in place, stop date 06/21. Now s/p partial flap placement 05/31. Bone cx with ESBL ecoli, CRE klebs, E faecium, diphtheroids. No Acinetobacter seen. Wound doing worse. 06/07 changed bactrim to vanc. Both CRE and ESBL still sensitive to tetracycline, but may need to add colistin. Gen surg consulted; CT abd/pelvis now shows fistula. May need surgical repair and diverting ostomy placement. Vanc trough elevated, dose adjusted. Will continue to follow. Disclaimer This dictation was created using voice recognition software. Phonetic and/or minor grammatical errors may exist. eSign Date and Time Syeda Palmer MD Verified/Reviewed by 06/12/18 1556 PT Collected: 06/12/2018 Status: F Source: [facility] 4:10 AM [facility] REPOSITORY Order Comment: [place]: M TYPE CODE TESTS RESULT OUT OF RANGE REFERENCE UNITS LAB L300.33099 0.9-1.1 High INR 1.66 Result Comment: Recommended PT INR therapeutic range for detention and prophylactic therapy is 2.0 - 3.0. For heart valve and shunt patients the range is 2.5 - 3.5. LAB L300.01750 9.5-12.0 SECONDS High 17.8 PTS Performed By: #### L300.16346 #### [facility] [address] [place] [address] VANC TROUGH Collected: 06/11/2018 Status: F Source: [facility] 2:32 PM [facility] REPOSITORY Order Comment: [place]: M TYPE CODE TESTS RESULT OUT OF REFERENCE UNITS RANGE LAB L520.45538 15.0-20.0 MCG/ML High alert VANC TROUGH 22.6 Result Comment: Critical Result(s) Called at: 15:24:07 on 06/11/2018 by: Florin Champion to and read back by: Consuelo HUA Performed By: #### L520.80324 #### [facility] [place] [address] PROG.NOTE Observed: 06/11/2018 Status: UNK Source: [facility] 12:53 PM [facility] REPOSITORY [facility] Patient Name: VENITA SMITH [address] Date of : [address] [address] Unit Number: [id number] Progress Note-Physician Patient Status: REG RCR Attending Doctor: Colette Sloan DO Service Date: 06/11/18 1253 Subjective S: (2 ROS minimum) No abd pain. No fever, feeling ok. Objective (ROS) Physical Exam Neurological / Psychiatric Alert Respiratory Normal Breathing Effort, Clear Lungs Cardiovascular Heart RRR, No M / R / G Gastrointestinal Non Tender, No Mass Skin No Rash (wound vac) Assessment and Plan Conclusion 1. 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 No growth of MRSA. 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 AcB was I to minocycline per [facility] [facility], but very limited other options. Had planned on 6 week course of abx, picc in place, stop date 06/21. Now s/p partial flap placement 05/31. Bone cx with ESBL ecoli, CRE klebs, E faecium, diphtheroids. No Acinetobacter seen. Wound doing worse. 06/07 changed bactrim to vanc. Both CRE and ESBL still sensitive to tetracycline, but may need to add colistin. Gen surg consulted; CT abd/pelvis now shows fistula. May need surgical repair and diverting ostomy placement. Vanc trough at goal, will follow weekly. Will continue to follow. Disclaimer This dictation was created using voice recognition software. Phonetic and/or minor grammatical errors may exist. eSign Date and Time Syeda Palmer MD Verified/Reviewed by 06/11/18 1254 PT Collected: 06/11/2018 Status: F Source: [facility] 4:03 AM [facility] REPOSITORY Order Comment: [place]: M TYPE CODE TESTS RESULT OUT OF RANGE REFERENCE UNITS LAB L300.83035 0.9-1.1 High INR 1.59 Result Comment: Recommended PT INR therapeutic range for detention and prophylactic therapy is 2.0 - 3.0. For heart valve and shunt patients the range is 2.5 - 3.5. LAB L300.73153 9.5-12.0 SECONDS High 17.0 PTS Performed By: #### L300.91942 #### [facility] [address] [place] [address] PROG.NOTE Observed: 06/10/2018 Status: UNK Source: [facility] 2:33 PM [facility] REPOSITORY [facility] Patient Name: VENITA SMITH [address] [place] [address] Date of : [address] [address] Unit Number: [id number] Progress Note-Physician Patient Status: REG RCR Attending Doctor: Colette Sloan DO Service Date: 06/10/18 1433 Subjective S: (2 ROS minimum) Feeling fine, no fever, no abd pain. Objective (ROS) Physical Exam Neurological / Psychiatric Alert Respiratory Normal Breathing Effort, Clear Lungs Cardiovascular Heart RRR, No M / R / G Gastrointestinal Non Tender, No Mass Skin wound vac in place Assessment and Plan Conclusion 1. 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 No growth of MRSA. 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 AcB was I to minocycline per [place] [facility], but very limited other options. Had planned on 6 week course of abx, picc in place, stop date 06/21. Now s/p partial flap placement 05/31. Bone cx with ESBL ecoli, CRE klebs, E faecium, diphtheroids. No Acinetobacter seen. Wound doing worse. 06/07 changed bactrim to vanc. Both CRE and ESBL still sensitive to tetracycline, but may need to add colistin. Gen surg consulted; CT abd/pelvis ordered to work-up possible fistula. Vanc trough at goal. Will continue to follow. Disclaimer This dictation was created using voice recognition software. Phonetic and/or minor grammatical errors may exist. eSign Date and Time Syeda Palmer MD Verified/Reviewed by 06/10/18 1435 GLU Collected: 06/10/2018 Status: F Source: [facility] 12:21 PM [facility] REPOSITORY Order Comment: [place]: M TYPE CODE TESTS RESULT OUT OF RANGE REFERENCE UNITS LAB L500.19431 70-100 MG/DL High GLU 391 Result Comment: 70-100- Normal Fasting; 100-125 Impaired Fasting; greater than 126 on more than one result- Diabetes. ADA guidelines. Results may be falsely elevated after the administration of Sulfapyridine. Results may be falsely depressed after the administration of Sulfasalazine. Performed By: #### L500.78857 #### [facility] [address] [place] [address] CMP Collected: 06/10/2018 Status: F Source: [facility] 5:10 AM [facility] REPOSITORY Order Comment: [place]: M TYPE CODE TESTS RESULT OUT OF RANGE REFERENCE UNITS LAB L500.25585 136-145 MMOL/L Normal NA 138 LAB L500.50821 3.5-5.1 MMOL/L Normal K 4.9 LAB L500.68200 98-107 MMOL/L Normal CL 105 LAB L500.68019 21-32 MMOL/L Normal CO2 23 LAB L500.35881 5-16 MMOL/L Normal AGAP 10 LAB L500.21626 70-100 MG/DL High GLU 140 Result Comment: 70-100- Normal Fasting; 100-125 Impaired Fasting; greater than 126 on more than one result- Diabetes. ADA guidelines. Results may be falsely elevated after the administration of Sulfapyridine. Results may be falsely depressed after the administration of Sulfasalazine. LAB L500.78683 7-26 MG/DL High BUN 37 LAB L500.79721 0.510-0.950 MG/DL Low CREAT 0.312 Result Comment: Patients receiving either N-Acetylcysteine (NAC) or Metamizole prior to venipuncture, may have falsely depressed results. LAB L500.85376 15-24 High BUN/CREA 119 LAB L500.62622 6.0-8.5 GM/DL Low TP 5.2 LAB L500.72342 3.2-5.0 GM/DL Low ALBUMIN 1.7 LAB L500.58644 2.2-4.2 GM/DL Normal GLOBULIN 3.5 LAB L500.78451 0.8-2.0 Low A/G RATIO 0.5 LAB L500.71291 8.5-10.1 MG/DL Normal CALCIUM TOTAL 8.6 LAB L500.71335 0.2-1.0 MG/DL Normal BILI TOTAL 0.3 LAB L500.94663 8-34 U/L Normal SGOT (AST) 13 Result Comment: RESULTS MAY BE FALSELY DEPRESSED AFTER THE ADMINISTRATION OF SULFASALAZINE AND/OR SULFAPYRIDINE. LAB L500.96775 13-61 IU/L Normal SGPT (ALT) 32 Result Comment: RESULTS MAY BE FALSELY DEPRESSED AFTER THE ADMINISTRATION OF SULFASALAZINE AND/OR SULFAPYRIDINE. LAB L500.86626 45-117 U/L Normal ALK PHOS 87 Performed By: #### L500.49023, L500.23553, L500.77016, L500.13649 #### [facility] [address] [place] [address] GFR EST Collected: 06/10/2018 Status: F Source: [facility] 5:10 AM [facility] REPOSITORY Order Comment: [place]: M TYPE CODE TESTS RESULT OUT OF RANGE REFERENCE UNITS LAB L500.07806 ML/MIN Normal IF non-AFR Greater than AMER 60 LAB L500.83045 ML/MIN Normal IF Greater than AMER 60 Performed By: #### L500.85259, L500.08105, L500.52819, L500.26205 #### [facility] [address] [place] [address] PHOS Collected: 06/10/2018 Status: F Source: [facility] 5:10 AM [facility] REPOSITORY Order Comment: [place]: M TYPE CODE TESTS RESULT OUT OF RANGE REFERENCE UNITS LAB L500.73799 2.5-4.9 MG/DL Normal PHOS 3.4 Performed By: #### L500.07694, L500.25190, L500.32078, L500.79720 #### [facility] [address] [place] [address] MAGNESIUM Collected: 06/10/2018 Status: F Source: [facility] 5:10 AM [facility] REPOSITORY Order Comment: [place]: M TYPE CODE TESTS RESULT OUT OF RANGE REFERENCE UNITS LAB L500.52831 1.6-2.6 MG/DL Normal MAGNESIUM 2.1 Performed By: #### L500.35547, L500.36938, L500.20077, L500.21258 #### [facility] [address] [place] [address] PT Collected: 06/10/2018 Status: F Source: [facility] 5:09 AM [facility] REPOSITORY Order Comment: [place]: M TYPE CODE TESTS RESULT OUT OF RANGE REFERENCE UNITS LAB L300.11413 0.9-1.1 High INR 1.47 Result Comment: Recommended PT INR therapeutic range for detention and prophylactic therapy is 2.0 - 3.0. For heart valve and shunt patients the range is 2.5 - 3.5. LAB L300.44160 9.5-12.0 SECONDS High 15.7 PTS Performed By: #### L300.28968 #### [facility] [address] [place] [address] CBC W/DIFF Collected: 06/10/2018 Status: F Source: [facility] 5:09 AM [facility] REPOSITORY Order Comment: [place]: M TYPE CODE TESTS RESULT OUT OF RANGE REFERENCE UNITS LAB L200.27261 4.5-11.0 K/CU MM WBC Normal 10.3 LAB L200.98214 3.90-5.30 M/CU MM Low RBC 3.28 LAB L200.90057 11.5-15.5 G/DL Low HGB 9.1 LAB L200.56288 35.0-47.0 % Low HCT 29.7 LAB L200.45397 80.0-99.0 fl MCV Normal 90.5 LAB L200.12636 32.0-36.0 GM/DL Low MCHC 30.6 LAB L200.78223 11-14.5 High RDW 16.5 LAB L200.11755 9.4-12.4 Low MPV 8.3 LAB L200.02298 150-450 K/CU MM PLT Normal 322 LAB L200.44442 45-75 % High NEUTROPHILS % 78.8 LAB L200.16692 Less than 2 % IMMATURE Normal GRAN % 0.9 LAB L200.66090 20-40 % Low LYMPH % 11.0 LAB L200.53432 2-10 % MONOCYTE % Normal 8.2 LAB L200.47699 0-5 % EOSINOPHIL Normal % 0.8 LAB L200.06471 0-2 % BASOPHIL % Normal 0.3 LAB L200.72538 2.0-8.3 K/CU MM NEUTROPHIL Normal ABS 8.10 LAB L200.15261 Less than 2 K/CU MM IMMATR GRAN Normal ABS 0.10 LAB L200.40719 0.9-4.4 K/CU MM LYMPH ABS Normal 1.10 LAB L200.31554 0.1-1.1 K/CU MM MONO ABS Normal 0.90 LAB L200.20850 0-0.5 K/CU MM EOS ABS Normal 0.10 LAB L200.53247 0-0.2 K/CU MM BASO ABS Normal 0.00 LAB L200.74200 Less than 1 % NRBC Normal 0.0 Performed By: #### L200.09684 #### [facility] [address] [place] [address] PT Collected: 06/09/2018 Status: F Source: [facility] 2:13 AM [facility] REPOSITORY Order Comment: [place]: M TYPE CODE TESTS RESULT OUT OF RANGE REFERENCE UNITS LAB L300.99763 0.9-1.1 High INR 1.33 Result Comment: 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 For heart valve and shunt patients the range is 2.5 - 3.5. LAB L300.34660 9.5-12.0 SECONDS High 14.2 PTS Performed By: #### L300.19244 #### [facility] [address] [place] [address] BMP Collected: 06/09/2018 Status: F Source: [facility] 2:13 AM [facility] REPOSITORY Order Comment: [place]: M TYPE CODE TESTS RESULT OUT OF RANGE REFERENCE UNITS LAB L500.36846 136-145 MMOL/L Normal NA 136 LAB L500.83108 3.5-5.1 MMOL/L Normal K 4.1 LAB L500.65429 98-107 MMOL/L Normal CL 103 LAB L500.90596 21-32 MMOL/L Normal CO2 23 LAB L500.03839 5-16 MMOL/L Normal AGAP 10 LAB L500.54431 70-100 MG/DL High GLU 284 Result Comment: 70-100- Normal Fasting; 100-125 Impaired Fasting; greater than 126 on more than one result- Diabetes. ADA guidelines. Results may be falsely elevated after the administration of Sulfapyridine. Results may be falsely depressed after the administration of Sulfasalazine. LAB L500.81721 7-26 MG/DL High BUN 47 LAB L500.29247 0.510-0.950 MG/DL Low CREAT 0.465 Result Comment: Patients receiving either N-Acetylcysteine (NAC) or Metamizole prior to venipuncture, may have falsely depressed results. LAB L500.22925 15-24 High BUN/CREA 101 LAB L500.99920 8.5-10.1 MG/DL Normal CALCIUM TOTAL 8.7 Performed By: #### L500.32026, L500.11791 #### [facility] [address] [place] [address] GFR EST Collected: 06/09/2018 Status: F Source: [facility] 2:13 AM [facility] REPOSITORY Order Comment: [place]: M TYPE CODE TESTS RESULT OUT OF RANGE REFERENCE UNITS LAB L500.53389 ML/MIN Normal IF non-AFR Greater than AMER 60 LAB L500.67642 ML/MIN Normal IF Greater than AMER 60 Performed By: #### L500.84420, L500.62665 #### [facility] [address] [place] [address] VANC TROUGH Collected: 06/09/2018 Status: F Source: [facility] 2:13 AM [facility] REPOSITORY Order Comment: [place]: M TYPE CODE TESTS RESULT OUT OF RANGE REFERENCE UNITS LAB L520.79525 15.0-20.0 MCG/ML Normal VANC TROUGH 15.9 Performed By: #### L520.06392 #### [facility] [address] [place] [address] CBC W/DIFF Collected: 06/08/2018 Status: F Source: [facility] 7:03 AM [facility] REPOSITORY Order Comment: [place]: M TYPE CODE TESTS RESULT OUT OF RANGE REFERENCE UNITS LAB L200.89754 4.5-11.0 K/CU MM WBC Normal 8.5 LAB L200.89385 3.90-5.30 M/CU MM Low RBC 3.36 LAB L200.93978 11.5-15.5 G/DL Low HGB 9.5 LAB L200.68278 35.0-47.0 % Low HCT 29.8 LAB L200.16183 80.0-99.0 fl MCV Normal 88.7 LAB L200.88140 32.0-36.0 GM/DL Low MCHC 31.9 LAB L200.71858 11-14.5 High RDW 16.6 LAB L200.94897 9.4-12.4 Low MPV 8.3 LAB L200.93245 150-450 K/CU MM PLT Normal 348 LAB L200.22067 45-75 % High NEUTROPHILS % 76.4 LAB L200.63407 Less than 2 % IMMATURE Normal GRAN % 0.6 LAB L200.32408 20-40 % Low LYMPH % 14.4 LAB L200.01482 2-10 % MONOCYTE % Normal 7.7 LAB L200.38639 0-5 % EOSINOPHIL Normal % 0.8 LAB L200.16439 0-2 % BASOPHIL % Normal 0.1 LAB L200.00568 2.0-8.3 K/CU MM NEUTROPHIL Normal ABS 6.50 LAB L200.89507 Less than 2 K/CU MM IMMATR GRAN Normal ABS 0.10 LAB L200.23247 0.9-4.4 K/CU MM LYMPH ABS Normal 1.20 LAB L200.48811 0.1-1.1 K/CU MM MONO ABS Normal 0.70 LAB L200.26148 0-0.5 K/CU MM EOS ABS Normal 0.10 LAB L200.64247 0-0.2 K/CU MM BASO ABS Normal 0.00 LAB L200.38333 Less than 1 % NRBC Normal 0.0 Performed By: #### L200.61685 #### [facility] [address]# [phone] PT Collected: 06/08/2018 Status: F Source: [facility] 7:03 AM [facility] REPOSITORY Order Comment: [place]: M TYPE CODE TESTS RESULT OUT OF RANGE REFERENCE UNITS LAB L300.79601 0.9-1.1 High INR 1.21 Result Comment: Recommended PT INR therapeutic range for detention and prophylactic therapy is 2.0 - 3.0. For heart valve and shunt patients the range is 2.5 - 3.5. LAB L300.81899 9.5-12.0 SECONDS High 12.9 PTS Performed By: #### L300.80599 #### [facility] [address]# [phone] CMP Collected: 06/08/2018 Status: F Source: [facility] 7:03 AM [facility] REPOSITORY Order Comment: [place]: M TYPE CODE TESTS RESULT OUT OF RANGE REFERENCE UNITS LAB L500.91654 136-145 MMOL/L Normal NA 136 LAB L500.20943 3.5-5.1 MMOL/L Normal K 5.0 LAB L500.93789 98-107 MMOL/L Normal CL 101 LAB L500.74987 21-32 MMOL/L Normal CO2 25 LAB L500.64651 5-16 MMOL/L Normal AGAP 10 LAB L500.32195 70-100 MG/DL High GLU 112 Result Comment: 70-100- Normal Fasting; 100-125 Impaired Fasting; greater than 126 on more than one result- Diabetes. ADA guidelines. Results may be falsely elevated after the administration of Sulfapyridine. Results may be falsely depressed after the administration of Sulfasalazine. LAB L500.11219 7-26 MG/DL High BUN 46 LAB L500.97346 0.510-0.950 MG/DL Low CREAT 0.462 Result Comment: Patients receiving either N-Acetylcysteine (NAC) or Metamizole prior to venipuncture, may have falsely depressed results. LAB L500.16703 15-24 High BUN/CREA 100 LAB L500.41012 6.0-8.5 GM/DL Low TP 5.8 LAB L500.30829 3.2-5.0 GM/DL Low ALBUMIN 1.9 LAB L500.33006 2.2-4.2 GM/DL Normal GLOBULIN 3.9 LAB L500.87098 0.8-2.0 Low A/G RATIO 0.5 LAB L500.34240 8.5-10.1 MG/DL Normal CALCIUM TOTAL 9.0 LAB L500.12004 0.2-1.0 MG/DL Normal BILI TOTAL 0.3 LAB L500.04401 8-34 U/L Normal SGOT (AST) 16 Result Comment: RESULTS MAY BE FALSELY DEPRESSED AFTER THE ADMINISTRATION OF SULFASALAZINE AND/OR SULFAPYRIDINE. LAB L500.08362 13-61 IU/L Normal SGPT (ALT) 41 Result Comment: RESULTS MAY BE FALSELY DEPRESSED AFTER THE ADMINISTRATION OF SULFASALAZINE AND/OR SULFAPYRIDINE. LAB L500.15282 45-117 U/L Normal ALK PHOS 95 Performed By: #### L500.90247, L500.26628 #### [facility] [address] [place] [address] GFR EST Collected: 06/08/2018 Status: F Source: [facility] 7:03 AM [facility] REPOSITORY Order Comment: [place]: TYPE CODE TESTS RESULT OUT OF RANGE REFERENCE UNITS LAB L500.79192 ML/MIN Normal IF non-AFR Greater than AMER 60 LAB L500.08087 ML/MIN Normal IF Greater than AMER 60 Performed By: #### L500.72158, L500.54812 #### [facility] [address] [place] [address] PROG.NOTE Observed: 06/07/2018 Status: UNK Source: [facility] 11:28 AM [facility] REPOSITORY [facility] Patient Name: VENITA SMITH [address] [place] [address] Date of : [address] [address] Unit Number: [id number] Progress Note-Physician Patient Status: REG RCR Attending Doctor: Colette Sloan DO Service Date: 06/07/18 1128 Subjective S: (2 ROS minimum) Feeling ok, no fever, no abd pain, no n/v. Objective (ROS) Physical Exam Neurological / Psychiatric Alert Respiratory Normal Breathing Effort, Clear Lungs Cardiovascular Heart RRR, No M / R / G Gastrointestinal Non Tender, No Mass Skin wound vac Assessment and Plan Conclusion 1. 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 No growth of MRSA. 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 AcB was I to minocycline per [facility], but very limited other options. Had planned on 6 week course of abx, picc in place, stop date 06/21. Now s/p partial flap placement 05/31. Bone cx with ESBL ecoli, CRE klebs, E faecium, diphtheroids. No Acinetobacter seen. Wound doing worse. Will change bactrim to vanc. Both CRE and ESBL still sensitive to tetracycline, but may need to add colistin. Will continue to follow. Disclaimer This dictation was created using voice recognition software. Phonetic and/or minor grammatical errors may exist. eSign Date and Time Syeda Palmer MD Verified/Reviewed by 06/07/18 1138 PT Collected: 06/07/2018 Status: F Source: [facility] 4:21 AM [facility] REPOSITORY Order Comment: [place]: M TYPE CODE TESTS RESULT OUT OF RANGE REFERENCE UNITS LAB L300.07458 0.9-1.1 Normal INR 1.09 Result Comment: 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 For heart valve and shunt patients the range is 2.5 - 3.5. LAB L300.84749 9.5-12.0 SECONDS Normal PTS 11.7 Performed By: #### L300.17196 #### [facility] [address] [place] [address] CBC Collected: 06/07/2018 Status: F Source: [facility] 4:21 AM [facility] REPOSITORY Order Comment: [place]: M TYPE CODE TESTS RESULT OUT OF RANGE REFERENCE UNITS LAB L200.40064 4.5-11.0 K/CU MM Normal WBC 9.0 LAB L200.42025 3.90-5.30 M/CU MM Low RBC 3.61 LAB L200.37697 11.5-15.5 G/DL Low HGB 10.1 Result Comment: Repeated and verified. LAB L200.22407 35.0-47.0 % Low HCT 31.5 LAB L200.39721 80.0-99.0 fl Normal MCV 87.3 LAB L200.95903 32.0-36.0 GM/DL Normal MCHC 32.1 LAB L200.58839 11-14.5 High RDW 16.0 LAB L200.64312 9.4-12.4 Low MPV 8.7 LAB L200.67718 150-450 K/CU MM Normal PLT 361 LAB L200.53604 Less than 1 % Normal NRBC 0.3 Performed By: #### L200.63890 #### [facility] [address]# [phone] CBC W/DIFF Collected: 06/06/2018 Status: F Source: [facility] 4:29 AM [facility] REPOSITORY Order Comment: [place]: TYPE CODE TESTS RESULT OUT OF RANGE REFERENCE UNITS LAB L200.06966 4.5-11.0 K/CU MM WBC Normal 9.1 LAB L200.10856 3.90-5.30 M/CU MM Low RBC 2.52 LAB L200.33440 11.5-15.5 G/DL Low HGB 7.0 LAB L200.51655 35.0-47.0 % Low HCT 22.5 LAB L200.45611 80.0-99.0 fl MCV Normal 89.3 LAB L200.59376 32.0-36.0 GM/DL Low MCHC 31.1 LAB L200.89944 11-14.5 High RDW 15.9 LAB L200.80867 9.4-12.4 Low MPV 8.6 LAB L200.26209 150-450 K/CU MM PLT Normal 309 LAB L200.26010 45-75 % High NEUTROPHILS % 78.1 LAB L200.51945 Less than 2 % IMMATURE Normal GRAN % 1.0 LAB L200.21451 20-40 % Low LYMPH % 12.6 LAB L200.18060 2-10 % MONOCYTE % Normal 7.8 LAB L200.54677 0-5 % EOSINOPHIL Normal % 0.4 LAB L200.40362 0-2 % BASOPHIL % Normal 0.1 LAB L200.79138 2.0-8.3 K/CU MM NEUTROPHIL Normal ABS 7.10 LAB L200.89716 Less than 2 K/CU MM IMMATR GRAN Normal ABS 0.10 LAB L200.40539 0.9-4.4 K/CU MM LYMPH ABS Normal 1.20 LAB L200.24074 0.1-1.1 K/CU MM MONO ABS Normal 0.70 LAB L200.52035 0-0.5 K/CU MM EOS ABS Normal 0.00 LAB L200.20629 0-0.2 K/CU MM BASO ABS Normal 0.00 LAB L200.84518 Less than 1 % NRBC Normal 0.0 Performed By: #### L200.83789 #### [facility] [address] [place] [address] PT Collected: 06/06/2018 Status: F Source: [facility] 4:29 AM [facility] REPOSITORY Order Comment: [place]: M TYPE CODE TESTS RESULT OUT OF RANGE REFERENCE UNITS LAB L300.43328 0.9-1.1 Normal INR 1.08 Result Comment: Recommended PT INR therapeutic range for detention and prophylactic therapy is 2.0 - 3.0. For heart valve and shunt patients the range is 2.5 - 3.5. LAB L300.30354 9.5-12.0 SECONDS Normal PTS 11.6 Performed By: #### L300.34897 #### [facility] [address] [place] [address] CMP Collected: 06/06/2018 Status: F Source: [facility] 4:29 AM [facility] REPOSITORY Order Comment: [place]: M TYPE CODE TESTS RESULT OUT OF RANGE REFERENCE UNITS LAB L500.91193 136-145 MMOL/L Normal NA 137 LAB L500.37119 3.5-5.1 MMOL/L Normal K 4.8 LAB L500.74859 98-107 MMOL/L Normal CL 103 LAB L500.96933 21-32 MMOL/L Normal CO2 26 LAB L500.60270 5-16 MMOL/L Normal AGAP 9 LAB L500.77055 70-100 MG/DL High GLU 177 Result Comment: 70-100- Normal Fasting; 100-125 Impaired Fasting; greater than 126 on more than one result- Diabetes. ADA guidelines. Results may be falsely elevated after the administration of Sulfapyridine. Results may be falsely depressed after the administration of Sulfasalazine. LAB L500.53701 7-26 MG/DL High BUN 47 LAB L500.29996 0.510-0.950 MG/DL Low CREAT 0.466 Result Comment: Patients receiving either N-Acetylcysteine (NAC) or Metamizole prior to venipuncture, may have falsely depressed results. LAB L500.42147 15-24 High BUN/CREA 101 LAB L500.58293 6.0-8.5 GM/DL Low TP 5.2 LAB L500.58012 3.2-5.0 GM/DL Low ALBUMIN 1.8 LAB L500.68421 2.2-4.2 GM/DL Normal GLOBULIN 3.4 LAB L500.43471 0.8-2.0 Low A/G RATIO 0.5 LAB L500.87936 8.5-10.1 MG/DL Normal CALCIUM TOTAL 8.7 LAB L500.71101 0.2-1.0 MG/DL Normal BILI TOTAL 0.2 LAB L500.12973 8-34 U/L Normal SGOT (AST) 18 Result Comment: RESULTS MAY BE FALSELY DEPRESSED AFTER THE ADMINISTRATION OF SULFASALAZINE AND/OR SULFAPYRIDINE. LAB L500.76971 13-61 IU/L Normal SGPT (ALT) 48 Result Comment: RESULTS MAY BE FALSELY DEPRESSED AFTER THE ADMINISTRATION OF SULFASALAZINE AND/OR SULFAPYRIDINE. LAB L500.80756 45-117 U/L Normal ALK PHOS 95 Performed By: #### L500.19064, L500.94178 #### [facility] [place] [address] GFR EST Collected: 06/06/2018 Status: F Source: [facility] 4:29 AM [facility] REPOSITORY Order Comment: [place]: TYPE CODE TESTS RESULT OUT OF RANGE REFERENCE UNITS LAB L500.72817 ML/MIN Normal IF non-AFR Greater than AMER 60 LAB L500.11487 ML/MIN Normal IF Greater than AMER 60 Performed By: #### L500.88724, L500.30371 #### [facility] [place] [address] TS Collected: 06/06/2018 Status: F Source: [facility] 4:29 AM [facility] REPOSITORY Order Comment: [place]: M Tranfuse Now? Y Non - Acute Hemorrhage Indication: Hgb<8 wTransfus Dependent Irradiated: N Washed: N Transfuse slowly @ 60mL/hr x15min, then increase to infuse: Over 4 Hours TYPE CODE TESTS RESULT OUT OF RANGE REFERENCE UNITS LAB B100.0400 A Normal BLOOD TYPE POSITIVE LAB B100.0680 Normal ANTIBODY NEGATIVE SCREEN RBC NO ACT Collected: 06/06/2018 Status: F Source: [facility] 4:29 AM [facility] REPOSITORY TYPE CODE TESTS RESULT OUT OF REFERENCE UNITS RANGE LAB U800.0005 RBC TRANSFUSED NO ACT PRODUCT: RBC NO ACTIVE BLEED COUNT: 2 PT Collected: 06/05/2018 Status: F Source: [facility] 4:23 AM [facility] REPOSITORY Order Comment: [place]: M TYPE CODE TESTS RESULT OUT OF RANGE REFERENCE UNITS LAB L300.04228 0.9-1.1 Normal INR 1.03 Result Comment: Recommended PT INR therapeutic range for detention and prophylactic therapy is 2.0 - 3.0. For heart valve and shunt patients the range is 2.5 - 3.5. LAB L300.28694 9.5-12.0 SECONDS Normal PTS 11.0 Performed By: #### L300.87142 #### [facility] [address] [place] [address] PT Collected: 06/04/2018 Status: F Source: [facility] 4:17 AM [facility] REPOSITORY Order Comment: [place]: M TYPE CODE TESTS RESULT OUT OF RANGE REFERENCE UNITS LAB L300.79531 0.9-1.1 Normal INR 0.99 Result Comment: Recommended PT INR therapeutic range for detention and prophylactic therapy is 2.0 - 3.0. For heart valve and shunt patients the range is 2.5 - 3.5. LAB L300.62406 9.5-12.0 SECONDS Normal PTS 10.6 Performed By: #### L300.39036 #### [facility] [address] [place] [address] PROG.NOTE Observed: 06/03/2018 Status: UNK Source: [facility] 10:16 AM [facility] Patient Name: VENITA SMITH [address] [place] [address] Date of : [address] [address] Unit Number: [id number] Progress Note-Physician Patient Status: REG RCR Attending Doctor: Colette Sloan DO Service Date: 06/03/18 1016 Subjective S: (2 ROS minimum) Feeling well, ate breakfast, no abd pain, no fever Objective (ROS) Physical Exam Neurological / Psychiatric Alert Respiratory Normal Breathing Effort, Clear Lungs Cardiovascular Heart RRR, No M / R / G Gastrointestinal Non Tender, No Mass Skin no new rash Assessment and Plan Conclusion 1. Osteomyelitis Sacral cx with ESBL ecoli and MDR Acinetobacter. No growth of MRSA. 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 Treat with meropenem for ESBL and anaerobe coverage, will use bactrim and minocycline for Acinetobacter and CRE klebs. AcB was I to minocycline per [facility], but very limited other options. Given clinical stability, will avoid using colistin at this time. Plan on 6 week course of abx, picc in place, stop date 06/21/18. Developed fever and shock s/p flap placement 05/31. Bcx neg. Wbc back to normal, off pressors. Seems most likely reaction to surgical procedure. No sign of new infection. Will continue to follow. Disclaimer This dictation was created using voice recognition software. Phonetic and/or minor grammatical errors may exist. eSign Date and Time Syeda Palmer MD Verified/Reviewed by 06/03/18 1016 CBC W/DIFF Collected: 06/03/2018 Status: F Source: [facility] 4:59 AM [facility] REPOSITORY Order Comment: [place]: M TYPE CODE TESTS RESULT OUT OF RANGE REFERENCE UNITS LAB L200.11857 4.5-11.0 K/CU MM WBC Normal 8.4 LAB L200.70528 3.90-5.30 M/CU MM Low RBC 2.69 LAB L200.60843 11.5-15.5 G/DL Low HGB 7.2 LAB L200.51995 35.0-47.0 % Low HCT 23.2 LAB L200.85156 80.0-99.0 fl MCV Normal 86.2 LAB L200.19436 32.0-36.0 GM/DL Low MCHC 31.0 LAB L200.55889 11-14.5 High RDW 15.8 LAB L200.59346 9.4-12.4 Low MPV 8.5 LAB L200.73749 150-450 K/CU MM PLT Normal 283 LAB L200.69139 45-75 % High NEUTROPHILS % 80.2 LAB L200.95473 Less than 2 % IMMATURE Normal GRAN % 0.5 LAB L200.80607 20-40 % Low LYMPH % 12.1 LAB L200.84859 2-10 % MONOCYTE % Normal 6.6 LAB L200.36210 0-5 % EOSINOPHIL Normal % 0.5 LAB L200.53107 0-2 % BASOPHIL % Normal 0.1 LAB L200.45985 2.0-8.3 K/CU MM NEUTROPHIL Normal ABS 6.70 LAB L200.85320 Less than 2 K/CU MM IMMATR GRAN Normal ABS 0.00 LAB L200.89238 0.9-4.4 K/CU MM LYMPH ABS Normal 1.00 LAB L200.82201 0.1-1.1 K/CU MM MONO ABS Normal 0.60 LAB L200.80626 0-0.5 K/CU MM EOS ABS Normal 0.00 LAB L200.27780 0-0.2 K/CU MM BASO ABS Normal 0.00 LAB L200.84075 Less than 1 % NRBC Normal 0.2 Performed By: #### L200.89583 #### [facility] [address] [place], [place] [id number] PT Collected: 06/03/2018 Status: F Source: [facility] 4:59 AM [facility] REPOSITORY Order Comment: [place]: TYPE CODE TESTS RESULT OUT OF RANGE REFERENCE UNITS LAB L300.92870 0.9-1.1 Normal INR 1.05 Result Comment: 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 For heart valve and shunt patients the range is 2.5 - 3.5. LAB L300.31818 9.5-12.0 SECONDS Normal PTS 11.2 Performed By: #### L300.40607 #### [facility] [address] [place] [address] CMP Collected: 06/03/2018 Status: F Source: [facility] 4:59 AM [facility] REPOSITORY Order Comment: [place]: M TYPE CODE TESTS RESULT OUT OF RANGE REFERENCE UNITS LAB L500.79488 136-145 MMOL/L Normal NA 138 LAB L500.75436 3.5-5.1 MMOL/L Normal K 4.6 LAB L500.65204 98-107 MMOL/L Normal CL 106 LAB L500.49119 21-32 MMOL/L Normal CO2 24 LAB L500.11334 5-16 MMOL/L Normal AGAP 8 LAB L500.75895 70-100 MG/DL High GLU 245 Result Comment: 70-100- Normal Fasting; 100-125 Impaired Fasting; greater than 126 on more than one result- Diabetes. ADA guidelines. Results may be falsely elevated after the administration of Sulfapyridine. Results may be falsely depressed after the administration of Sulfasalazine. LAB L500.33424 7-26 MG/DL High BUN 31 LAB L500.14734 0.510-0.950 MG/DL Low CREAT 0.376 Result Comment: Patients receiving either N-Acetylcysteine (NAC) or Metamizole prior to venipuncture, may have falsely depressed results. LAB L500.29267 15-24 High BUN/CREA 82 LAB L500.26120 6.0-8.5 GM/DL Low TP 5.3 LAB L500.09808 3.2-5.0 GM/DL Low ALBUMIN 1.7 LAB L500.81319 2.2-4.2 GM/DL Normal GLOBULIN 3.6 LAB L500.61604 0.8-2.0 Low A/G RATIO 0.5 LAB L500.17077 8.5-10.1 MG/DL Low CALCIUM TOTAL 8.0 LAB L500.60781 0.2-1.0 MG/DL Normal BILI TOTAL 0.2 LAB L500.78495 8-34 U/L High SGOT (AST) 45 Result Comment: RESULTS MAY BE FALSELY DEPRESSED AFTER THE ADMINISTRATION OF SULFASALAZINE AND/OR SULFAPYRIDINE. LAB L500.60605 13-61 IU/L High SGPT (ALT) 82 Result Comment: RESULTS MAY BE FALSELY DEPRESSED AFTER THE ADMINISTRATION OF SULFASALAZINE AND/OR SULFAPYRIDINE. LAB L500.20060 45-117 U/L Normal ALK PHOS 113 Performed By: #### L500.66580, L500.59772, L500.28901, L500.39256 #### [facility] [address] [place] [address] GFR EST Collected: 06/03/2018 Status: F Source: [facility] 4:59 AM [facility] REPOSITORY Order Comment: [place]: M TYPE CODE TESTS RESULT OUT OF RANGE REFERENCE UNITS LAB L500.58810 ML/MIN Normal IF non-AFR Greater than AMER 60 LAB L500.95737 ML/MIN Normal IF Greater than AMER 60 Performed By: #### L500.91801, L500.88375, L500.26108, L500.67582 #### [facility] [address] [place] [address] PHOS Collected: 06/03/2018 Status: F Source: [facility] 4:59 AM [facility] REPOSITORY Order Comment: [place]: M TYPE CODE TESTS RESULT OUT OF RANGE REFERENCE UNITS LAB L500.86816 2.5-4.9 MG/DL Normal PHOS 2.9 Performed By: #### L500.18910, L500.82399, L500.40429, L500.50950 #### [facility] [address] [place] [address] MAGNESIUM Collected: 06/03/2018 Status: F Source: [facility] 4:59 AM [facility] REPOSITORY Order Comment: [place]: M TYPE CODE TESTS RESULT OUT OF RANGE REFERENCE UNITS LAB L500.64104 1.6-2.6 MG/DL Normal MAGNESIUM 1.8 Performed By: #### L500.10068, L500.56609, L500.42614, L500.85449 #### [facility] [address] [place] [address] PROG.NOTE Observed: 06/02/2018 Status: UNK Source: [facility] 11:44 AM [facility] REPOSITORY [facility] Patient Name: VENITA SMITH [address] [place] [address] Date of : [address] [address] Unit Number: [id number] Progress Note-Physician Patient Status: REG RCR Attending Doctor: Colette Sloan DO Service Date: 06/02/18 1144 Subjective S: (2 ROS minimum) Feeling fine, no fever, no abd pain, off pressors. Objective (ROS) Physical Exam Neurological / Psychiatric Alert Respiratory Normal Breathing Effort, Clear Lungs Cardiovascular Heart RRR, No M / R / G Gastrointestinal Non Tender, No Mass Skin No Rash (no new rash) Assessment and Plan Conclusion 1. Osteomyelitis Sacral cx with ESBL ecoli and MDR Acinetobacter. No growth of MRSA. 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 Treat with meropenem for ESBL and anaerobe coverage, will use bactrim and minocycline for Acinetobacter and CRE klebs. AcB was I to minocycline per [facility], but very limited other options. Given clinical stability, will avoid using colistin at this time. Plan on 6 week course of abx, picc in place, stop date 06/21/18. Developed fever and shock s/p flap placement 05/31. Bcx neg. Wbc back to normal, off pressors. Seems most likely reaction to surgical procedure. No sign of new infection. Will continue to follow. Disclaimer This dictation was created using voice recognition software. Phonetic and/or minor grammatical errors may exist. eSign Date and Time Syeda Palmer MD Verified/Reviewed by 06/02/18 1146 CBC W/DIFF Collected: 06/02/2018 Status: F Source: [facility] 5:59 AM [facility] REPOSITORY Order Comment: [place]: M TYPE CODE TESTS RESULT OUT OF RANGE REFERENCE UNITS LAB L200.56504 4.5-11.0 K/CU MM WBC Normal 10.2 LAB L200.76497 3.90-5.30 M/CU MM Low RBC 2.62 LAB L200.71038 11.5-15.5 G/DL Low HGB 7.1 LAB L200.64519 35.0-47.0 % Low HCT 22.6 LAB L200.27548 80.0-99.0 fl MCV Normal 86.3 LAB L200.57299 32.0-36.0 GM/DL Low MCHC 31.4 LAB L200.24033 11-14.5 High RDW 16.0 LAB L200.55505 9.4-12.4 Low MPV 8.5 LAB L200.17047 150-450 K/CU MM PLT Normal 265 LAB L200.94250 45-75 % High NEUTROPHILS % 80.0 LAB L200.04066 Less than 2 % IMMATURE Normal GRAN % 0.8 LAB L200.91919 20-40 % Low LYMPH % 10.9 LAB L200.92113 2-10 % MONOCYTE % Normal 7.8 LAB L200.33809 0-5 % EOSINOPHIL Normal % 0.3 LAB L200.13775 0-2 % BASOPHIL % Normal 0.2 LAB L200.37722 2.0-8.3 K/CU MM NEUTROPHIL Normal ABS 8.20 LAB L200.35038 Less than 2 K/CU MM IMMATR GRAN Normal ABS 0.10 LAB L200.30592 0.9-4.4 K/CU MM LYMPH ABS Normal 1.10 LAB L200.15167 0.1-1.1 K/CU MM MONO ABS Normal 0.80 LAB L200.22235 0-0.5 K/CU MM EOS ABS Normal 0.00 LAB L200.73599 0-0.2 K/CU MM BASO ABS Normal 0.00 LAB L200.25816 Less than 1 % NRBC Normal 0.0 Performed By: #### L200.30884 #### [facility] [place] [address] CMP Collected: 06/02/2018 Status: F Source: [facility] 5:59 AM [facility] REPOSITORY Order Comment: [place]: TYPE CODE TESTS RESULT OUT OF RANGE REFERENCE UNITS LAB L500.84366 136-145 MMOL/L Normal NA 138 LAB L500.90364 3.5-5.1 MMOL/L Normal K 4.6 LAB L500.32622 98-107 MMOL/L Normal CL 106 LAB L500.96918 21-32 MMOL/L Normal CO2 22 LAB L500.36490 5-16 MMOL/L Normal AGAP 10 LAB L500.71310 70-100 MG/DL High GLU 187 Result Comment: 70-100- Normal Fasting; 100-125 Impaired Fasting; greater than 126 on more than one result- Diabetes. ADA guidelines. Results may be falsely elevated after the administration of Sulfapyridine. Results may be falsely depressed after the administration of Sulfasalazine. LAB L500.77988 7-26 MG/DL High BUN 30 LAB L500.84778 0.510-0.950 MG/DL Low CREAT 0.463 Result Comment: Patients receiving either N-Acetylcysteine (NAC) or Metamizole prior to venipuncture, may have falsely depressed results. LAB L500.17574 15-24 High BUN/CREA 65 LAB L500.02882 6.0-8.5 GM/DL Low TP 5.2 LAB L500.11184 3.2-5.0 GM/DL Low ALBUMIN 1.6 LAB L500.06833 2.2-4.2 GM/DL Normal GLOBULIN 3.6 LAB L500.61398 0.8-2.0 Low A/G RATIO 0.5 LAB L500.35212 8.5-10.1 MG/DL Low CALCIUM TOTAL 8.2 LAB L500.31968 0.2-1.0 MG/DL Normal BILI TOTAL 0.3 LAB L500.33348 8-34 U/L High SGOT (AST) 35 Result Comment: RESULTS MAY BE FALSELY DEPRESSED AFTER THE ADMINISTRATION OF SULFASALAZINE AND/OR SULFAPYRIDINE. LAB L500.26147 13-61 IU/L High SGPT (ALT) 67 Result Comment: RESULTS MAY BE FALSELY DEPRESSED AFTER THE ADMINISTRATION OF SULFASALAZINE AND/OR SULFAPYRIDINE. LAB L500.99727 45-117 U/L Normal ALK PHOS 109 Performed By: #### L500.72898, L500.48021 #### [facility] [address] [place] [address] GFR EST Collected: 06/02/2018 Status: F Source: [facility] 5:59 AM [facility] REPOSITORY Order Comment: [place]: M TYPE CODE TESTS RESULT OUT OF RANGE REFERENCE UNITS LAB L500.58392 ML/MIN Normal IF non-AFR Greater than AMER 60 LAB L500.22984 ML/MIN Normal IF Greater than AMER 60 Performed By: #### L500.43736, L500.64654 #### [facility] [address] [place] [address] K Collected: 06/01/2018 Status: F Source: [facility] 6:24 PM [facility] REPOSITORY Order Comment: [place]: M TYPE CODE TESTS RESULT OUT OF RANGE REFERENCE UNITS LAB L500.97267 3.5-5.1 MMOL/L High K 5.6 Result Comment: Slight Hemolysis, Result may be falsely increased. Performed By: #### L500.31473 #### [facility] [address] [place] [address] PROG.NOTE Observed: 06/01/2018 Status: UNK Source: [facility] 10:07 AM [facility] REPOSITORY [facility] Patient Name: VENITA SMITH [address] [place] [address] Date of : [address] [address] Unit Number: [id number] Progress Note-Physician Patient Status: REG RCR Attending Doctor: Colette Slaon DO Service Date: 06/01/18 1007 Subjective S: (2 ROS minimum) Fever and hypotension last night s/p OR. Remains on levophed. Feeling fine this AM. Denies fever, no cough or SOB. No abd pain. Objective (ROS) Physical Exam Neurological / Psychiatric Alert Respiratory Normal Breathing Effort, Clear Lungs Cardiovascular Heart RRR, No M / R / G Gastrointestinal Non Tender, No Mass Skin wound vac in place Assessment and Plan Conclusion 1. Osteomyelitis On Sun 10:22a May 24, [address] abd/pelvis report from [facility] placed in chart along with updated cx data. Some diverticulitis but no abscess seen. Sacral cx with ESBL ecoli and MDR Acinetobacter. Surgery following for debridement. Not a candidate for diverting ostomy per gen surg. Very limited options based on cx results. No growth of MRSA. 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 Treat with meropenem for ESBL and anaerobe coverage, will use bactrim and minocycline for Acinetobacter and CRE klebs. AcB was I to minocycline per [facility], but very limited other options. Given clinical stability, will avoid using colistin at this time. Plan on 6 week course of abx, picc in place, stop date 06/21/18. Now with fever and shock s/p flap placement 05/31. Bcx sent. BP and fever improved. Still on levophed. Feeling fine this AM. Given single dose of dapto last night for empiric vre coverage. Will continue to follow. D/w nursing. Disclaimer This dictation was created using voice recognition software. Phonetic and/or minor grammatical errors may exist. eSign Date and Time Syeda Palmer MD Verified/Reviewed by 06/01/18 1009 PT Collected: 06/01/2018 Status: F Source: [facility] 7:53 AM [facility] REPOSITORY Order Comment: [place]: M TYPE CODE TESTS RESULT OUT OF RANGE REFERENCE UNITS LAB L300.49410 0.9-1.1 High INR 1.15 Result Comment: 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 For heart valve and shunt patients the range is 2.5 - 3.5. LAB L300.96986 9.5-12.0 SECONDS High 12.3 PTS Performed By: #### L300.95856 #### [facility] [address] [place] [address] CMP Collected: 06/01/2018 Status: F Source: [facility] 7:53 AM [facility] REPOSITORY Order Comment: [place]: M TYPE CODE TESTS RESULT OUT OF RANGE REFERENCE UNITS LAB L500.36866 136-145 MMOL/L Normal NA 138 LAB L500.92033 3.5-5.1 MMOL/L High alert K 6.1 Result Comment: Slight Hemolysis, Result may be falsely increased. Critical Result(s) Called at: 09:26:19 on 06/01/2018 by: carolina wills to and read back by: arvind shah rn LAB L500.97752 98-107 MMOL/L Normal CL 106 LAB L500.50473 21-32 MMOL/L Normal CO2 21 LAB L500.94355 5-16 MMOL/L Normal AGAP 10 LAB L500.91718 70-100 MG/DL High GLU 116 Result Comment: 70-100- Normal Fasting; 100-125 Impaired Fasting; greater than 126 on more than one result- Diabetes. ADA guidelines. Results may be falsely elevated after the administration of Sulfapyridine. Results may be falsely depressed after the administration of Sulfasalazine. LAB L500.87573 7-26 MG/DL High BUN 44 LAB L500.07989 0.510-0.950 MG/DL Normal CREAT 0.531 Result Comment: Patients receiving either N-Acetylcysteine (NAC) or Metamizole prior to venipuncture, may have falsely depressed results. LAB L500.69930 15-24 High BUN/CREA 83 LAB L500.10573 6.0-8.5 GM/DL Low TP 5.8 LAB L500.06000 3.2-5.0 GM/DL Low ALBUMIN 1.9 LAB L500.31072 2.2-4.2 GM/DL Normal GLOBULIN 3.9 LAB L500.66751 0.8-2.0 Low A/G RATIO 0.5 LAB L500.14068 8.5-10.1 MG/DL Normal CALCIUM TOTAL 9.0 LAB L500.53396 0.2-1.0 MG/DL Normal BILI TOTAL 0.3 LAB L500.55419 8-34 U/L High SGOT (AST) 61 Result Comment: Slight Hemolysis, Result may be falsely increased. RESULTS MAY BE FALSELY DEPRESSED AFTER THE ADMINISTRATION OF SULFASALAZINE AND/OR SULFAPYRIDINE. LAB L500.48480 13-61 IU/L High SGPT (ALT) 72 Result Comment: RESULTS MAY BE FALSELY DEPRESSED AFTER THE ADMINISTRATION OF SULFASALAZINE AND/OR SULFAPYRIDINE. LAB L500.23156 45-117 U/L High ALK PHOS 119 Performed By: #### L500.23899, L500.99933 #### [facility] [place] [address] GFR EST Collected: 06/01/2018 Status: F Source: [facility] 7:53 AM [facility] REPOSITORY Order Comment: [place]: M TYPE CODE TESTS RESULT OUT OF RANGE REFERENCE UNITS LAB L500.45897 ML/MIN Normal IF non-AFR Greater than AMER 60 LAB L500.09340 ML/MIN Normal IF Greater than AMER 60 Performed By: #### L500.91547, L500.31670 #### [facility] [place] [address] CBC W/DIFF Collected: 06/01/2018 Status: F Source: [facility] 7:52 AM [facility] REPOSITORY Order Comment: [place]: M TYPE CODE TESTS RESULT OUT OF RANGE REFERENCE UNITS LAB L200.29101 4.5-11.0 K/CU MM High WBC 19.5 LAB L200.33316 3.90-5.30 M/CU MM Low RBC 3.07 LAB L200.50245 11.5-15.5 G/DL Low HGB 8.3 LAB L200.64813 35.0-47.0 % Low HCT 27.2 LAB L200.09542 80.0-99.0 fl MCV Normal 88.6 LAB L200.28746 32.0-36.0 GM/DL Low MCHC 30.5 LAB L200.53774 11-14.5 High RDW 16.5 LAB L200.32412 9.4-12.4 Low MPV 8.4 LAB L200.80164 150-450 K/CU MM PLT Normal 342 LAB L200.66025 45-75 % High NEUTROPHILS % 79.1 LAB L200.25805 Less than 2 % IMMATURE Normal GRAN % 0.8 LAB L200.86754 20-40 % Low LYMPH % 9.1 LAB L200.67025 2-10 % High MONOCYTE % 10.5 LAB L200.23824 0-5 % EOSINOPHIL Normal % 0.3 LAB L200.17149 0-2 % BASOPHIL % Normal 0.2 LAB L200.18731 2.0-8.3 K/CU MM High NEUTROPHIL ABS 15.40 LAB L200.51138 Less than 2 K/CU MM IMMATR GRAN Normal ABS 0.20 LAB L200.25642 0.9-4.4 K/CU MM LYMPH ABS Normal 1.80 LAB L200.97923 0.1-1.1 K/CU MM High MONO ABS 2.00 LAB L200.45529 0-0.5 K/CU MM EOS ABS Normal 0.10 LAB L200.11814 0-0.2 K/CU MM BASO ABS Normal 0.00 LAB L200.34144 Less than 1 % NRBC Normal 0.0 Performed By: #### L200.25864 #### [facility] [address] [place] [address] K Collected: 05/31/2018 Status: F Source: [facility] 9:27 PM [facility] REPOSITORY Order Comment: [place]: M TYPE CODE TESTS RESULT OUT OF RANGE REFERENCE UNITS LAB L500.59918 3.5-5.1 MMOL/L High K 6.0 Performed By: #### L500.72841 #### [facility] [address] [place] [address] LACTIC ACID Collected: 05/31/2018 Status: F Source: [facility] 9:27 PM [facility] REPOSITORY Order Comment: [place]: M TYPE CODE TESTS RESULT OUT OF RANGE REFERENCE UNITS LAB L550.62211 0.40-2.00 MMOL/L Normal LACTIC ACID 1.56 Performed By: #### L550.49877 #### [facility] [address] [place] [id number] Observed: 05/31/2018 Status: F Source: [facility] BLOOD CULTURE 8:31 PM [facility] REPOSITORY Order Comment: [place]: M : BLOOD CULTURES FROM TWO SITES NO GROWTH AFTER 5 DAYS Performed By: #### M050.87735 #### [facility] [address] [place] [address] [id number] Observed: 05/31/2018 Status: F Source: [facility] BLOOD CULTURE 8:27 PM [facility] REPOSITORY Order Comment: [place]: M : BLOOD CULTURES FROM TWO SITES NO GROWTH AFTER 5 DAYS Performed By: #### M050.71286 #### [facility] [address] [place], [place] [id number] CBC Collected: 05/31/2018 Status: F Source: [facility] 7:09 PM [facility] REPOSITORY Order Comment: [place]: M TYPE CODE TESTS RESULT OUT OF RANGE REFERENCE UNITS LAB L200.58507 4.5-11.0 K/CU MM Normal WBC 9.9 LAB L200.52299 3.90-5.30 M/CU MM Low RBC 2.81 LAB L200.00866 11.5-15.5 G/DL Low HGB 7.6 LAB L200.60438 35.0-47.0 % Low HCT 24.6 LAB L200.74123 80.0-99.0 fl Normal MCV 87.5 LAB L200.70151 32.0-36.0 GM/DL Low MCHC 30.9 LAB L200.67014 11-14.5 High RDW 16.5 LAB L200.21232 9.4-12.4 Low MPV 8.6 LAB L200.35953 150-450 K/CU MM Normal PLT 271 LAB L200.00745 Less than 1 % Normal NRBC 0.0 Performed By: #### L200.80262 #### [facility] [address] [place] [address] CMP Collected: 05/31/2018 Status: F Source: [facility] 7:09 PM [facility] REPOSITORY Order Comment: [place]: TYPE CODE TESTS RESULT OUT OF RANGE REFERENCE UNITS LAB L500.20279 136-145 MMOL/L Normal NA 137 LAB L500.52624 3.5-5.1 MMOL/L High alert K 6.2 Result Comment: Critical Result(s) Called at: 20:06:03 on 05/31/2018 by: SALMA HE to and read back by: Mora MALIK LAB L500.23415 98-107 MMOL/L Normal CL 104 LAB L500.71565 21-32 MMOL/L Normal CO2 21 LAB L500.86681 5-16 MMOL/L Normal AGAP 12 LAB L500.83804 70-100 MG/DL High GLU 185 Result Comment: 70-100- Normal Fasting; 100-125 Impaired Fasting; greater than 126 on more than one result- Diabetes. ADA guidelines. Results may be falsely elevated after the administration of Sulfapyridine. Results may be falsely depressed after the administration of Sulfasalazine. LAB L500.54678 7-26 MG/DL High BUN 52 LAB L500.78303 0.510-0.950 MG/DL Normal CREAT 0.594 Result Comment: Patients receiving either N-Acetylcysteine (NAC) or Metamizole prior to venipuncture, may have falsely depressed results. LAB L500.33139 15-24 High BUN/CREA 88 LAB L500.45389 6.0-8.5 GM/DL Low TP 5.4 LAB L500.18592 3.2-5.0 GM/DL Low ALBUMIN 1.9 LAB L500.19927 2.2-4.2 GM/DL Normal GLOBULIN 3.5 LAB L500.20326 0.8-2.0 Low A/G RATIO 0.6 LAB L500.27690 8.5-10.1 MG/DL Normal CALCIUM TOTAL 8.6 LAB L500.91559 0.2-1.0 MG/DL Normal BILI TOTAL 0.2 LAB L500.48194 8-34 U/L Normal SGOT (AST) 29 Result Comment: RESULTS MAY BE FALSELY DEPRESSED AFTER THE ADMINISTRATION OF SULFASALAZINE AND/OR SULFAPYRIDINE. LAB L500.04917 13-61 IU/L Normal SGPT (ALT) 49 Result Comment: RESULTS MAY BE FALSELY DEPRESSED AFTER THE ADMINISTRATION OF SULFASALAZINE AND/OR SULFAPYRIDINE. LAB L500.71260 45-117 U/L Normal ALK PHOS 101 Performed By: #### L500.98998, L500.67350 #### [facility] [address] [place] [address] GFR EST Collected: 05/31/2018 Status: F Source: [facility] 7:09 PM [facility] REPOSITORY Order Comment: [place]: TYPE CODE TESTS RESULT OUT OF RANGE REFERENCE UNITS LAB L500.37990 ML/MIN Normal IF non-AFR Greater than AMER 60 LAB L500.97065 ML/MIN Normal IF Greater than AMER 60 Performed By: #### L500.42597, L500.58742 #### [facility] [address] [place] [address] Observed: 05/31/2018 Status: F Source: [facility] SURG TISSUE 11:33 AM [facility] REPOSITORY Order Comment: [place]: M : #2 SACRAL BONE CULTURE THIS BACTERIAL ISOLATE HAS BEEN DETERMINED TO BE A POSSIBLE CRE BY CDC DEFINITION CRE: CARBAPENEN RESISTANT ENTEROBACTERIACEAE PREVIOUS POSITIVE FROM [facility] CRITICAL VALUE(S) VERIFIED AND CALLED TO AND READ BACK BY JOHNNY Agrawal AT 1418 06/02/18 BY DELVIS MALLOY THIS BACTERIAL ISOLATE HAS BEEN CONFIRMED TO BE AN ESBL CONSUMER INSIGHT ANALYST ESBL EXTENDED SPECTRUM BETA-LACTAMASE R* RESISTANCE DUE TO EXTENDED SPECTRUM BETA-LACTAMASE (ESBL) RESULTS CALLED TO AND READ BACK BY MILDRED WOLFF 6M AT 115306/03/18 BY KIMBERLY DAVIS THE PATIENT NEEDS TO BE PUT IN ISOLATION THIS BACTERIAL ISOLATE HAS BEEN DETERMINED TO BE A POSSIBLE CRE BY CDC DEFINITION CRE: CARBAPENEN RESISTANT ENTEROBACTERIACEAE PREVIOUS POSITIVE FROM [facility] CRITICAL VALUE(S) VERIFIED AND CALLED TO AND READ BACK BY JOHNNY Vanegas6M AT 141706/02/18 BY DELVIS MALLOY THIS BACTERIAL ISOLATE HAS BEEN CONFIRMED TO BE AN ESBL CONSUMER INSIGHT ANALYST ESBL EXTENDED SPECTRUM BETA-LACTAMASE R* RESISTANCE DUE TO EXTENDED SPECTRUM BETA-LACTAMASE (ESBL) RESULTS CALLED TO AND READ BACK BY MILDRED WOLFF 6M AT 115306/03/18 BY KIMBERLY DAVIS THE PATIENT NEEDS TO BE PUT IN ISOLATION THIS BACTERIAL ISOLATE HAS BEEN DETERMINED TO BE A POSSIBLE CRE BY CDC DEFINITION CRE: CARBAPENEN RESISTANT ENTEROBACTERIACEAE PREVIOUS POSITIVE FROM [facility] CRITICAL VALUE(S) VERIFIED AND CALLED TO AND READ BACK BY JOHNNY Mchugh/6M AT 141706/02/18 BY DELVIS MALLOY Streptomycin Synergy Screen S Gentamicin Synergy Screen S THIS BACTERIAL ISOLATE HAS BEEN CONFIRMED TO BE AN ESBL CONSUMER INSIGHT ANALYST ESBL EXTENDED SPECTRUM BETA-LACTAMASE R* RESISTANCE DUE TO EXTENDED SPECTRUM BETA-LACTAMASE (ESBL) RESULTS CALLED TO AND READ BACK BY MILDRED WOLFF 6M AT 115306/03/18 BY KIMBERLY DAVIS. THE PATIENT NEEDS TO BE PUT IN ISOLATION THIS BACTERIAL ISOLATE HAS BEEN DETERMINED TO BE A POSSIBLE CRE BY CDC DEFINITION CRE: CARBAPENEN RESISTANT ENTEROBACTERIACEAE PREVIOUS POSITIVE FROM [facility] CRITICAL VALUE(S) VERIFIED AND CALLED TO AND READ BACK BY JOHNNY Mchugh/6M AT 141706/02/18 BY DELVIS MALLOY Streptomycin Synergy Screen S Gentamicin Synergy Screen S IM RELEAST PER DR ANTUNEZ THIS BACTERIAL ISOLATE HAS BEEN CONFIRMED TO BE AN ESBL CONSUMER INSIGHT ANALYST ESBL EXTENDED SPECTRUM BETA-LACTAMASE R* RESISTANCE DUE TO EXTENDED SPECTRUM BETA-LACTAMASE (ESBL) RESULTS CALLED TO AND READ BACK BY MILDRED WOLFF 6M AT 115306/03/18 BY KIMBERLY DAVIS THE PATIENT NEEDS TO BE PUT IN ISOLATION THIS BACTERIAL ISOLATE HAS BEEN DETERMINED TO BE A POSSIBLE CRE BY CDC DEFINITION CRE: CARBAPENEN RESISTANT ENTEROBACTERIACEAE PREVIOUS POSITIVE FROM [facility] CRITICAL VALUE(S) VERIFIED AND CALLED TO AND READ BACK BY JOHNNY Mchugh/6M AT 141706/02/18 BY DELVIS MALLOY GRAM STAIN RARE WBC'S NO ORGANISMS SEEN * This is a corrected result. * A prior result that was reported as final has been changed. ORGANISM 1: KLEBSIELLA PNEUMONIAE QUANTITATION FEW CRE POSITIVE KLEBSIELLA PNEUMONIAE: REACTION AMIKACIN >32 R AMPICILLIN >16 R AMP/SULBACTAM (UNASYN) >16/8 R AUGMENTIN (AMOX/K CLVULANATE) >16/8 R CEFAZOLIN >16 R CEFEPIME >16 R CEFOTAXIME >32 R CEFUROXIME >16 R CIPROFLOXACIN >4 R GENTAMICIN <4 S IMIPENEM >8 R ERTAPENEM >4 R PIPERACILLIN/TAZOBACTAM >64 R TETRACYCLINE <4 S TOBRAMYCIN >8 R TRIMETH/SULFA >2/38 R LEVOFLOXACIN >4 R MEROPENEM >8 R MOXIFLOXACIN >4 R ORGANISM 2: ESCHERICHIA COLI QUANTITATION RARE ESCHERICHIA COLI: REACTION AMPICILLIN >16 R* AMP/SULBACTAM (UNASYN) <8/4 S AUGMENTIN (AMOX/K CLVULANATE) <8/4 S CEFAZOLIN >16 R* CEFEPIME <4 R* CEFOTAXIME 16 ESBL CEFUROXIME >16 R* CIPROFLOXACIN >4 R GENTAMICIN <4 S IMIPENEM <1 S ERTAPENEM <2 S PIPERACILLIN/TAZOBACTAM <16 S TETRACYCLINE <4 S TOBRAMYCIN <4 S TRIMETH/SULFA >2/38 R LEVOFLOXACIN >4 R MEROPENEM <1 S MOXIFLOXACIN >4 R ORGANISM 3: ENTEROCOCCUS FAECIUM QUANTITATION FEW ENTEROCOCCUS FAECIUM: REACTION AMPICILLIN >8 R CHLORAMPHENICOL <8 S ERYTHROMYCIN 2 I GENTAMICIN SYNERGY SCREEN <500 S IMIPENEM >8 N/R LINEZOLID 2 S PENICILLIN >8 R RIFAMPIN 2 I STREPTOMYCIN SYNERGY SCREEN <1000 S TETRACYCLINE >8 R VANCOMYCIN 1 S LEVOFLOXACIN >4 R DAPTOMYCIN 2 S ORGANISM 4: DIPHTHEROIDS QUANTITATION FEW ID TO FOLLOW NOT VIABLE FOR SENSITIVITY Performed By: #### M100.24038, M100.84421 #### [facility] [address]# [phone] Observed: 05/31/2018 Status: F Source: [facility] C[facility] 11:33 AM [facility] REPOSITORY Order Comment: [place]: M : #2 SACRAL BONE CULTURE THIS BACTERIAL ISOLATE HAS BEEN DETERMINED TO BE A POSSIBLE CRE BY CDC DEFINITION CRE: CARBAPENEN RESISTANT ENTEROBACTERIACEAE PREVIOUS POSITIVE FROM [facility] CRITICAL VALUE(S) VERIFIED AND CALLED TO AND READ BACK BY JOHNNY Agrawal AT 141706/02/18 BY DELVIS MALLOY THIS BACTERIAL ISOLATE HAS BEEN CONFIRMED TO BE AN ESBL CONSUMER INSIGHT ANALYST ESBL EXTENDED SPECTRUM BETA-LACTAMASE R* RESISTANCE DUE TO EXTENDED SPECTRUM BETA-LACTAMASE (ESBL) RESULTS CALLED TO AND READ BACK BY MILDRED WOLFF 6M AT 115306/03/18 BY KIMBERLY DAVIS THE PATIENT NEEDS TO BE PUT IN ISOLATION THIS BACTERIAL ISOLATE HAS BEEN DETERMINED TO BE A POSSIBLE CRE BY CDC DEFINITION CRE: CARBAPENEN RESISTANT ENTEROBACTERIACEAE PREVIOUS POSITIVE FROM [facility] CRITICAL VALUE(S) VERIFIED AND CALLED TO AND READ BACK BY JOHNNY Agrawal AT 141706/02/18 BY DELVIS MALLOY THIS BACTERIAL ISOLATE HAS BEEN CONFIRMED TO BE AN ESBL CONSUMER INSIGHT ANALYST ESBL EXTENDED SPECTRUM BETA-LACTAMASE R* RESISTANCE DUE TO EXTENDED SPECTRUM BETA-LACTAMASE (ESBL) RESULTS CALLED TO AND READ BACK BY MILDRED WOLFF 6M AT 115306/03/18 BY KIMBERLY DAVIS THE PATIENT NEEDS TO BE PUT IN ISOLATION THIS BACTERIAL ISOLATE HAS BEEN DETERMINED TO BE A POSSIBLE CRE BY CDC DEFINITION CRE: CARBAPENEN RESISTANT ENTEROBACTERIACEAE PREVIOUS POSITIVE FROM [facility] CRITICAL VALUE(S) VERIFIED AND CALLED TO AND READ BACK BY JOHNNY Agrawal AT 141706/02/18 BY DELVIS MALLOY Streptomycin Synergy Screen S Gentamicin Synergy Screen S THIS BACTERIAL ISOLATE HAS BEEN CONFIRMED TO BE AN ESBL CONSUMER INSIGHT ANALYST ESBL EXTENDED SPECTRUM BETA-LACTAMASE R* RESISTANCE DUE TO EXTENDED SPECTRUM BETA-LACTAMASE (ESBL) RESULTS CALLED TO AND READ BACK BY MILDRED WOLFF 6M AT 115306/03/18 BY KIMBERLY DAVIS THE PATIENT NEEDS TO BE PUT IN ISOLATION THIS BACTERIAL ISOLATE HAS BEEN DETERMINED TO BE A POSSIBLE CRE BY CDC DEFINITION CRE: CARBAPENEN RESISTANT ENTEROBACTERIACEAE PREVIOUS POSITIVE FROM [facility] CRITICAL VALUE(S) VERIFIED AND CALLED TO AND READ BACK BY JOHNNY Agrawal AT 141706/02/18 BY DELVIS MALLOY Streptomycin Synergy Screen S Gentamicin Synergy Screen S IM RELEAST PER DR ANTUNEZ THIS BACTERIAL ISOLATE HAS BEEN CONFIRMED TO BE AN ESBL CONSUMER INSIGHT ANALYST ESBL EXTENDED SPECTRUM BETA-LACTAMASE R* RESISTANCE DUE TO EXTENDED SPECTRUM BETA-LACTAMASE (ESBL) RESULTS CALLED TO AND READ BACK BY MILDRED WOLFF 6M AT 1154 06/03/18 BY KIMBERLY DAVIS THE PATIENT NEEDS TO BE PUT IN ISOLATION THIS BACTERIAL ISOLATE HAS BEEN DETERMINED TO BE A POSSIBLE CRE BY CDC DEFINITION CRE: CARBAPENEN RESISTANT ENTEROBACTERIACEAE PREVIOUS POSITIVE FROM [facility] CRITICAL VALUE(S) VERIFIED AND CALLED TO AND READ BACK BY JOHNNY Vanegas6M AT 1418 06/02/18 BY DELVIS MALLOY RESULT NO GROWTH OF ANAEROBES Performed By: #### M100.77386, M100.40616 #### [facility] [address] [place] [address] SURG Observed: 05/31/2018 Status: F Source: [facility] 11:19 AM [facility] REPOSITORY Patient: VENITA SMITH SPECIMEN: [id number] Collection Date: 05/31/181118 Received: 05/31/18 Status: [facility] Dr.: Herbert Antunez MD Ph# Othr. .: No Family Physician given Material for Examination: A PRESSURE SACRAL ULCER PRE-OP DIAGNOSIS: SACRAL DECUBITUS ULCER POST-OP DIAGNOSIS: SAME SURGICAL PROCEDURE: EXCISION SACRAL DECUBITUS ULCER WITH MYOCUTANEOUS FLAP DIAGNOSIS A. Pressure sacral ulcer, excision: Fragments of fibrous tissue with ulceration, exhibiting areas of necrosis, severe inflammation, surface fibrinous inflammatory exudate and granulation tissue. COMMENT AFB stain is negative for acid fast microorganisms. GMS-F stain is negative for fungal microorganisms. GROSS DESCRIPTION The specimen is received in formalin and labeled with the patient's name, ID and designated sacral pressure ulcer, are fragments of owusu-spangler tissue, 7.0 x 5.2 x 1.0 cm. Cut section has a owusu-spangler appearance. Ghost Writer sections are submitted in cassette A1. MICROSCOPIC DESCRIPTION One Sruthi stained slide, one AFB stained slide and one GMS- F stained slide with adequate positive controls are examined. COPIES TO: Herbert Antunez MD No Family Physician given Signed Verified/Reviewed by HEIDI QUINTANILLA MD 06/04/18 This dictation was created using voice recognition software. Phonetic and/or minor grammatical errors may exist. [facility] NAME: VENITA SMITH Pathology and Laboratory Medicine UNIT#: [id number] LOC: [facility] Communication Equipment Mechanic: Latrice Osorio M.D. [id number] ROOM/BED: Anita Margarita [facility] : 48 AGE/SEX: 67/F ORD.Herbert Musa MD END OF REPORT PT Collected: 05/31/2018 Status: F Source: [facility] 4:02 AM [facility] REPOSITORY Order Comment: [place]: TYPE CODE TESTS RESULT OUT OF RANGE REFERENCE UNITS LAB L300.73963 0.9-1.1 High INR 1.15 Result Comment: 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 For heart valve and shunt patients the range is 2.5 - 3.5. LAB L300.72512 9.5-12.0 SECONDS High 12.3 PTS Performed By: #### L300.84099 #### [facility] [address] [place] [address]# [phone] OR Observed: 05/31/2018 Status: UNK Source: [facility] 12:00 AM [facility] REPOSITORY DATE OF SERVICE: 05/31/2018 PREOPERATIVE DIAGNOSIS: Sacral decubitus ulcer, stage 4. POSTOPERATIVE DIAGNOSIS: Sacral decubitus ulcer, stage 4. OPERATION: Excision of sacral ulcer with ostectomy and a myocutaneous flap. SURGEON: Herbert Antunez MD ANESTHESIA: Local with IV sedation. ANESTHETISTS: Dr. Antunez and Dr. Flores. OPERATIVE FINDINGS AND INDICATION: Patient has a large necrotic ulcer on the sacral area measuring about 12 x 11 cm in size which had been present for several months as it is a result of her surgery and postoperative debridement starting in February of this year. This has been debrided several times. Also had a wound VAC applied recently. The wound still has some slough and necrotic tissue present. This required additional debridement. DESCRIPTION OF PROCEDURE: Patient was brought to the operating room. She was sedated with IV medication, turned in a lateral position, and was stabilized on the operating table with rodriguez bags. Back area was prepared with Betadine scrub and draped with sterile towels. Xylocaine 1% with epinephrine and 0.5% Marcaine was infiltrated around the ulcer as well as the flap area until satisfactory anesthesia was obtained. Using electrocautery the skin edges of the ulcer as well as the necrotic tissue from the sacral area were removed. All the infected bone was removed and sent for culture and sensitivity examination. Skin edges were sharply debrided until the area appeared to be clean. All the slough and the necrotic tissue was removed from the base of the ulcer. Once the area appeared to be clean, the central part of the wound which had bone exposed required some closure with a muscle flap. A large myocutaneous flap was then marked on the left hip and it was divided down to the skin and subcutaneous tissue. Then the muscle was divided and muscle was from the underlying attachments and the skin muscle flap was advanced medially and inferiorly to close the defect on the sacral area. This flap was able to close with the tissue which had some bone exposed and some slough which was removed. There was a small area on the right gluteal area which was left open because the flap could not be moved all the way down to close the entire area. Closure was carried out in layers using 0 Vicryl for deeper and subcutaneous tissues. Skin edges on the flap were closed with ____ precious. The rest of the flap was then advanced and sutured to the underlying muscle as well as on the left gluteal area so that it would close most of the flap. At the end of the procedure the defect was about 10 x 6 cm in size. The rest of the area was well covered with the muscle flap. Estimated blood loss was about 75 mL. The patient tolerated the procedure well and [facility] PATIENT NAME: VENITA SMITH [facility] Dr. [facility] MEDICAL REC #: [id number] [place] [address] ADMIT DATE: DISCHARGE DATE: OPERATIVE REPORT ATTENDING PHY: Herbert Antunez MD left the operating room in good condition. NARRATION SUMMARY: The patient was brought from [facility] where she had been staying for some time as a result of previous surgery which was coronary artery bypass graft which was done February 15 of this year, followed by staying at a custodial where she developed some wounds on the leg as well as on the sacral area. These wounds on the legs had been closed with tissue closure as well as some TheraSkin graft application, but the sacral ulcer was very large and necrotic which required some wound VAC therapy and until it appeared to be somewhat alley cleaner. Patient was then brought to the hospital from [facility] for surgery. The surgery was carried out under sedation and local anesthesia. She tolerated the procedure well. Most of the flap was able to close about two-third of the ulcer. The bone was completely covered with the flap. Some areas of the right gluteal area were left open as they could not be closed with the flap. Patient tolerated the procedure well and was then transferred back to [facility] for further care and treatment. FINAL DIAGNOSES: 1. Coronary artery disease. 2. Diabetes mellitus, type 2. 3. Sacral ulcer, stage 4. 4. Peripheral vascular disease. FINAL DISPOSITION: Improved. No complication. Herbert Antunez MD [id number] [facility] File#: [id number] Disclaimer - This document may contain phonetic, minor grammatical errors, or errors due to voice quality. Verified/Reviewed by 06/03/18 Liliane LOZANO [facility] PATIENT NAME: VENITA SMITH [facility] Dr. [place]ner MEDICAL REC #: [id number] [place] [address] ADMIT DATE: DISCHARGE DATE: OPERATIVE REPORT ATTENDING PHY: Herbert Antunez MD PT Collected: 05/30/2018 Status: F Source: [facility] 4:42 AM [facility] REPOSITORY Order Comment: [place]: TYPE CODE TESTS RESULT OUT OF RANGE REFERENCE UNITS LAB L300.84009 0.9-1.1 High INR 1.36 Result Comment: Recommended PT INR therapeutic range for detention and prophylactic therapy is 2.0 - 3.0. For heart valve and shunt patients the range is 2.5 - 3.5. LAB L300.71153 9.5-12.0 SECONDS High 14.6 PTS Performed By: #### L300.17050 #### [facility] [address] [place] [address] CBC W/DIFF Collected: 05/30/2018 Status: F Source: [facility] 4:42 AM [facility] REPOSITORY Order Comment: [place]: M TYPE CODE TESTS RESULT OUT OF RANGE REFERENCE UNITS LAB L200.01649 4.5-11.0 K/CU MM WBC Normal 9.5 LAB L200.50102 3.90-5.30 M/CU MM Low RBC 3.06 LAB L200.13314 11.5-15.5 G/DL Low HGB 8.3 LAB L200.57079 35.0-47.0 % Low HCT 27.0 LAB L200.23343 80.0-99.0 fl MCV Normal 88.2 LAB L200.41299 32.0-36.0 GM/DL Low MCHC 30.7 LAB L200.06374 11-14.5 High RDW 16.8 LAB L200.92354 9.4-12.4 Low MPV 8.5 LAB L200.67527 150-450 K/CU MM PLT Normal 300 LAB L200.69812 45-75 % NEUTROPHILS Normal % 73.7 LAB L200.23355 Less than 2 % IMMATURE Normal GRAN % 0.5 LAB L200.68883 20-40 % Low LYMPH % 14.3 LAB L200.44501 2-10 % High MONOCYTE % 10.4 LAB L200.27259 0-5 % EOSINOPHIL Normal % 0.9 LAB L200.55897 0-2 % BASOPHIL % Normal 0.2 LAB L200.32486 2.0-8.3 K/CU MM NEUTROPHIL Normal ABS 7.00 LAB L200.31615 Less than 2 K/CU MM IMMATR GRAN Normal ABS 0.10 LAB L200.36175 0.9-4.4 K/CU MM LYMPH ABS Normal 1.40 LAB L200.87471 0.1-1.1 K/CU MM MONO ABS Normal 1.00 LAB L200.02256 0-0.5 K/CU MM EOS ABS Normal 0.10 LAB L200.96483 0-0.2 K/CU MM BASO ABS Normal 0.00 LAB L200.35644 Less than 1 % NRBC Normal 0.2 Performed By: #### L200.51524 #### [facility] [address] [place] [address] BMP Collected: 05/30/2018 Status: F Source: [facility] 4:42 AM [facility] REPOSITORY Order Comment: [place]: TYPE CODE TESTS RESULT OUT OF RANGE REFERENCE UNITS LAB L500.54200 136-145 MMOL/L Normal NA 138 LAB L500.20219 3.5-5.1 MMOL/L Normal K 4.8 LAB L500.70783 98-107 MMOL/L High CL 108 LAB L500.54359 21-32 MMOL/L Normal CO2 22 LAB L500.76500 5-16 MMOL/L Normal AGAP 8 LAB L500.10110 70-100 MG/DL Normal GLU 85 Result Comment: 70-100- Normal Fasting; 100-125 Impaired Fasting; greater than 126 on more than one result- Diabetes. ADA guidelines. Results may be falsely elevated after the administration of Sulfapyridine. Results may be falsely depressed after the administration of Sulfasalazine. LAB L500.66796 7-26 MG/DL High BUN 47 LAB L500.51785 0.510-0.950 MG/DL Low CREAT 0.434 Result Comment: Patients receiving either N-Acetylcysteine (NAC) or Metamizole prior to venipuncture, may have falsely depressed results. LAB L500.52464 15-24 High BUN/CREA 108 LAB L500.03687 8.5-10.1 MG/DL Normal CALCIUM TOTAL 8.8 Performed By: #### L500.60089, L500.98565 #### [facility] [place] [address] GFR EST Collected: 05/30/2018 Status: F Source: [facility] 4:42 AM [facility] REPOSITORY Order Comment: [place]: M TYPE CODE TESTS RESULT OUT OF RANGE REFERENCE UNITS LAB L500.35054 ML/MIN Normal IF non-AFR Greater than AMER 60 LAB L500.75330 ML/MIN Normal IF Greater than AMER 60 Performed By: #### L500.41100, L500.71196 #### [facility] [place] [id number] PT Collected: 05/29/2018 Status: F Source: [facility] 4:26 AM [facility] REPOSITORY Order Comment: [place]: M TYPE CODE TESTS RESULT OUT OF RANGE REFERENCE UNITS LAB L300.25659 0.9-1.1 High INR 1.75 Result Comment: 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 For heart valve and shunt patients the range is 2.5 - 3.5. LAB L300.84494 9.5-12.0 SECONDS High 18.7 PTS Performed By: #### L300.48855 #### [facility] [address] [place] [address] PROG.NOTE Observed: 05/28/2018 Status: UNK Source: [facility] 12:20 PM [facility] Patient Name: VENITA SMITH [address] [place] [address] Date of : [address] [place] [address] Unit Number: [id number] Progress Note-Physician Patient Status: REG RCR Attending Doctor: Colette Sloan DO Service Date: 05/28/18 1220 Subjective S: (2 ROS minimum) Covering for Dr. Palmer. No f/c. Denies any new problems. Sacral pain reasonably controlled. No diarrhea. Denies any vaginal discharge. Objective (ROS) Nursing Vitals 98.5 84 20 92/50 Physical Exam Physical Examination Notes NAD RUE PICC intact RRR No w/r/r anterolaterally. Abd soft, NT Wound documentation reviewed. Diagnostic Data: Lab 24hr (CBC/BMP Fishbone) 05/28/18416: INR 2.02 H, PT Normal Mean Secs 21.6 H Microbiology (Last) Date/Time Procedure - Status Source Growth 05/23 1307 Miscellaneous Culture - COMP VAGINAL KLEBSIELLA PNEUMONIAE VANC. RESISTANT E. FAECIUM 05/23 1307 Gram Stain - COMP VAGINAL 05/22 1829 Body Fluid Culture - CAN BF OTHER Cancelled: NO SPECIMEN REC'D WRONG ORDER PER GEOVANNA 05/22 1829 Gram Stain - CAN BF OTHER Cancelled: NO SPECIMEN REC'D WRONG ORDER PER [facility] Lab 48hr (CBC/BMP Fishbone) 05/28/18416: INR 2.02 H, PT Normal Mean Secs 21.6 H 05/27/18413: [Embedded Image Not Available] Anion Gap 11, Est GFR ( Amer) Greater than 60, Est GFR (Non-Af Amer) Greater than 60, BUN/Creatinine Ratio 93 H, Glucose 137 H, Total Calcium 8.6, Phosphorus 3.3, Magnesium 2.0, Total Bilirubin 0.2, AST 29, ALT 69 H, Alkaline Phosphatase 100, Serum Total Protein 5.6 L, Albumin 1.9 L, Globulin 3.7, Albumin/Globulin Ratio 0.5 L, INR 1.87 H, PT Normal Mean Secs 20.0 H, RBC 3.10 L, MCV 85.5, MCHC 32.5, RDW 16.9 H, MPV 8.6 L, Immature Gran % (Auto) 0.7, Abs Immat Gran (auto) 0.10, Seg Neutrophils % 82.4 H, Lymphocytes % 8.6 L, Monocytes % 7.3, Eosinophils % 0.8, Basophils % 0.2, Neutrophils # 12.60 H, Lymphocytes # 1.30, Monocytes # 1.10, Eosinophils # 0.10, Basophils # 0.00, Nucleated RBCs 0.0 Assessment and Plan Conclusion 1. Sacral decubitus ulcer, stage IV 2. Osteomyelitis 3. Complicated UTI (urinary tract infection) Remains on meropenem, minocycline, and Bactrim. Vaginal discharge culture noted. Pt looks stable clinically. She denies any further vaginal discharge. Nurse also unaware of any discharge. Continue current antibiotics. Disclaimer This dictation was created using voice recognition software. Phonetic and/or minor grammatical errors may exist. eSign Date and Time Goldy Chen MD Verified/Reviewed by 05/28/18 1223 PT Collected: 05/28/2018 Status: F Source: [facility] 4:17 AM [facility] REPOSITORY Order Comment: [place]: M TYPE CODE TESTS RESULT OUT OF RANGE REFERENCE UNITS LAB L300.16246 0.9-1.1 High INR 2.02 Result Comment: 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 For heart valve and shunt patients the range is 2.5 - 3.5. LAB L300.28582 9.5-12.0 SECONDS High 21.6 PTS Performed By: #### L300.16086 #### [facility] [place] [address] CBC W/DIFF Collected: 05/27/2018 Status: F Source: [facility] 4:14 AM [facility] REPOSITORY Order Comment: [place]: M TYPE CODE TESTS RESULT OUT OF RANGE REFERENCE UNITS LAB L200.43032 4.5-11.0 K/CU MM High WBC 15.3 LAB L200.02593 3.90-5.30 M/CU MM Low RBC 3.10 LAB L200.21232 11.5-15.5 G/DL Low HGB 8.6 LAB L200.40088 35.0-47.0 % Low HCT 26.5 LAB L200.92129 80.0-99.0 fl MCV Normal 85.5 LAB L200.81976 32.0-36.0 GM/DL MCHC Normal 32.5 LAB L200.91681 11-14.5 High RDW 16.9 LAB L200.43640 9.4-12.4 Low MPV 8.6 LAB L200.99264 150-450 K/CU MM PLT Normal 326 LAB L200.37605 45-75 % High NEUTROPHILS % 82.4 LAB L200.35949 Less than 2 % IMMATURE Normal GRAN % 0.7 LAB L200.59515 20-40 % Low LYMPH % 8.6 LAB L200.02863 2-10 % MONOCYTE % Normal 7.3 LAB L200.67114 0-5 % EOSINOPHIL Normal % 0.8 LAB L200.68380 0-2 % BASOPHIL % Normal 0.2 LAB L200.91878 2.0-8.3 K/CU MM High NEUTROPHIL ABS 12.60 LAB L200.18679 Less than 2 K/CU MM IMMATR GRAN Normal ABS 0.10 LAB L200.75349 0.9-4.4 K/CU MM LYMPH ABS Normal 1.30 LAB L200.46091 0.1-1.1 K/CU MM MONO ABS Normal 1.10 LAB L200.80840 0-0.5 K/CU MM EOS ABS Normal 0.10 LAB L200.20659 0-0.2 K/CU MM BASO ABS Normal 0.00 LAB L200.11157 Less than 1 % NRBC Normal 0.0 Performed By: #### L200.11110 #### [facility] [place] [address] CMP Collected: 05/27/2018 Status: F Source: [facility] 4:14 AM [facility] REPOSITORY Order Comment: [place]: TYPE CODE TESTS RESULT OUT OF RANGE REFERENCE UNITS LAB L500.35083 136-145 MMOL/L Normal NA 138 LAB L500.18636 3.5-5.1 MMOL/L Normal K 4.8 LAB L500.72822 98-107 MMOL/L Normal CL 105 LAB L500.84586 21-32 MMOL/L Normal CO2 21 LAB L500.69674 5-16 MMOL/L Normal AGAP 11 LAB L500.97193 70-100 MG/DL High GLU 137 Result Comment: 70-100- Normal Fasting; 100-125 Impaired Fasting; greater than 126 on more than one result- Diabetes. ADA guidelines. Results may be falsely elevated after the administration of Sulfapyridine. Results may be falsely depressed after the administration of Sulfasalazine. LAB L500.54291 7-26 MG/DL High BUN 42 LAB L500.06659 0.510-0.950 MG/DL Low CREAT 0.453 Result Comment: Patients receiving either N-Acetylcysteine (NAC) or Metamizole prior to venipuncture, may have falsely depressed results. LAB L500.89982 15-24 High BUN/CREA 93 LAB L500.22538 6.0-8.5 GM/DL Low TP 5.6 LAB L500.35558 3.2-5.0 GM/DL Low ALBUMIN 1.9 LAB L500.08089 2.2-4.2 GM/DL Normal GLOBULIN 3.7 LAB L500.80716 0.8-2.0 Low A/G RATIO 0.5 LAB L500.78662 8.5-10.1 MG/DL Normal CALCIUM TOTAL 8.6 LAB L500.14567 0.2-1.0 MG/DL Normal BILI TOTAL 0.2 LAB L500.05920 8-34 U/L Normal SGOT (AST) 29 Result Comment: RESULTS MAY BE FALSELY DEPRESSED AFTER THE ADMINISTRATION OF SULFASALAZINE AND/OR SULFAPYRIDINE. LAB L500.45907 13-61 IU/L High SGPT (ALT) 69 Result Comment: RESULTS MAY BE FALSELY DEPRESSED AFTER THE ADMINISTRATION OF SULFASALAZINE AND/OR SULFAPYRIDINE. LAB L500.63830 45-117 U/L Normal ALK PHOS 100 Performed By: #### L500.35189, L500.86201, L500.65984, L500.66379 #### [facility] [address] [place] [address] GFR EST Collected: 05/27/2018 Status: F Source: [facility] 4:14 AM [facility] REPOSITORY Order Comment: [place]: M TYPE CODE TESTS RESULT OUT OF RANGE REFERENCE UNITS LAB L500.73019 ML/MIN Normal IF non-AFR Greater than AMER 60 LAB L500.87086 ML/MIN Normal IF Greater than AMER 60 Performed By: #### L500.46431, L500.87470, L500.23999, L500.63456 #### [facility] [place] [address] PHOS Collected: 05/27/2018 Status: F Source: [facility] 4:14 AM [facility] REPOSITORY Order Comment: [place]: M TYPE CODE TESTS RESULT OUT OF RANGE REFERENCE UNITS LAB L500.08440 2.5-4.9 MG/DL Normal PHOS 3.3 Performed By: #### L500.75901, L500.61240, L500.53021, L500.08444 #### [facility] [address] [place] [address] MAGNESIUM Collected: 05/27/2018 Status: F Source: [facility] 4:14 AM [facility] REPOSITORY Order Comment: [place]: M TYPE CODE TESTS RESULT OUT OF RANGE REFERENCE UNITS LAB L500.18024 1.6-2.6 MG/DL Normal MAGNESIUM 2.0 Performed By: #### L500.38109, L500.47157, L500.54877, L500.39827 #### [facility] [address] [place] [address] PT Collected: 05/27/2018 Status: F Source: [facility] 4:14 AM [facility] REPOSITORY Order Comment: [place]: M TYPE CODE TESTS RESULT OUT OF RANGE REFERENCE UNITS LAB L300.39392 0.9-1.1 High INR 1.87 Result Comment: 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 For heart valve and shunt patients the range is 2.5 - 3.5. LAB L300.16178 9.5-12.0 SECONDS High 20.0 PTS Performed By: #### L300.60708 #### [facility] [address] [place] [address] PT Collected: 05/26/2018 Status: F Source: [facility] 5:12 AM [facility] REPOSITORY Order Comment: [place]: M TYPE CODE TESTS RESULT OUT OF RANGE REFERENCE UNITS LAB L300.80881 0.9-1.1 High INR 1.80 Result Comment: 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 For heart valve and shunt patients the range is 2.5 - 3.5. LAB L300.42777 9.5-12.0 SECONDS High 19.3 PTS Performed By: #### L300.42698 #### [facility] [address] [place] [address] PT Collected: 05/25/2018 Status: F Source: [facility] 5:36 AM [facility] REPOSITORY Order Comment: [place]: M TYPE CODE TESTS RESULT OUT OF RANGE REFERENCE UNITS LAB L300.36520 0.9-1.1 High INR 2.20 Result Comment: Recommended PT INR therapeutic range for detention and prophylactic therapy is 2.0 - 3.0. For heart valve and shunt patients the range is 2.5 - 3.5. LAB L300.84867 9.5-12.0 SECONDS High 23.5 PTS Performed By: #### L300.38066 #### [facility] [address] [place] [address] CBC W/DIFF Collected: 05/25/2018 Status: F Source: [facility] 5:36 AM [facility] REPOSITORY Order Comment: [place]: M TYPE CODE TESTS RESULT OUT OF RANGE REFERENCE UNITS LAB L200.55567 4.5-11.0 K/CU MM WBC Normal 10.9 LAB L200.76734 3.90-5.30 M/CU MM Low RBC 3.12 LAB L200.80028 11.5-15.5 G/DL Low HGB 8.4 LAB L200.05247 35.0-47.0 % Low HCT 27.6 LAB L200.22588 80.0-99.0 fl MCV Normal 88.5 LAB L200.70688 32.0-36.0 GM/DL Low MCHC 30.4 LAB L200.68191 11-14.5 High RDW 17.1 LAB L200.40265 9.4-12.4 Low MPV 8.5 LAB L200.10376 150-450 K/CU MM PLT Normal 318 LAB L200.78391 45-75 % High NEUTROPHILS % 77.3 LAB L200.42719 Less than 2 % IMMATURE Normal GRAN % 0.5 LAB L200.55221 20-40 % Low LYMPH % 12.4 LAB L200.40052 2-10 % MONOCYTE % Normal 8.5 LAB L200.90907 0-5 % EOSINOPHIL Normal % 1.0 LAB L200.01816 0-2 % BASOPHIL % Normal 0.3 LAB L200.32701 2.0-8.3 K/CU MM High NEUTROPHIL ABS 8.40 LAB L200.13593 Less than 2 K/CU MM IMMATR GRAN Normal ABS 0.10 LAB L200.43458 0.9-4.4 K/CU MM LYMPH ABS Normal 1.40 LAB L200.92265 0.1-1.1 K/CU MM MONO ABS Normal 0.90 LAB L200.26681 0-0.5 K/CU MM EOS ABS Normal 0.10 LAB L200.39050 0-0.2 K/CU MM BASO ABS Normal 0.00 LAB L200.94026 Less than 1 % NRBC Normal 0.0 Performed By: #### L200.21079 #### [facility] [address] [place] [address] CMP Collected: 05/25/2018 Status: F Source: [facility] 5:36 AM [facility] REPOSITORY Order Comment: [place]: TYPE CODE TESTS RESULT OUT OF RANGE REFERENCE UNITS LAB L500.36302 136-145 MMOL/L Normal NA 136 LAB L500.28844 3.5-5.1 MMOL/L Normal K 5.0 LAB L500.34557 98-107 MMOL/L Normal CL 106 LAB L500.67892 21-32 MMOL/L Low CO2 20 LAB L500.70587 5-16 MMOL/L Normal AGAP 10 LAB L500.36032 70-100 MG/DL Normal GLU 91 Result Comment: 70-100- Normal Fasting; 100-125 Impaired Fasting; greater than 126 on more than one result- Diabetes. ADA guidelines. Results may be falsely elevated after the administration of Sulfapyridine. Results may be falsely depressed after the administration of Sulfasalazine. LAB L500.69915 7-26 MG/DL High BUN 46 LAB L500.22435 0.510-0.950 MG/DL Low CREAT 0.453 Result Comment: Patients receiving either N-Acetylcysteine (NAC) or Metamizole prior to venipuncture, may have falsely depressed results. LAB L500.81774 15-24 High BUN/CREA 102 LAB L500.34838 6.0-8.5 GM/DL Low TP 5.4 LAB L500.89268 3.2-5.0 GM/DL Low ALBUMIN 1.9 LAB L500.47748 2.2-4.2 GM/DL Normal GLOBULIN 3.5 LAB L500.66740 0.8-2.0 Low A/G RATIO 0.5 LAB L500.12888 8.5-10.1 MG/DL Normal CALCIUM TOTAL 8.8 LAB L500.70036 0.2-1.0 MG/DL Normal BILI TOTAL 0.2 LAB L500.52505 8-34 U/L Normal SGOT (AST) 31 Result Comment: RESULTS MAY BE FALSELY DEPRESSED AFTER THE ADMINISTRATION OF SULFASALAZINE AND/OR SULFAPYRIDINE. LAB L500.47167 13-61 IU/L High SGPT (ALT) 73 Result Comment: RESULTS MAY BE FALSELY DEPRESSED AFTER THE ADMINISTRATION OF SULFASALAZINE AND/OR SULFAPYRIDINE. LAB L500.18688 45-117 U/L Normal ALK PHOS 99 Performed By: #### L500.29542, L500.93909 #### [facility] [place] [address] GFR EST Collected: 05/25/2018 Status: F Source: [facility] 5:36 AM [facility] REPOSITORY Order Comment: [place]: M TYPE CODE TESTS RESULT OUT OF RANGE REFERENCE UNITS LAB L500.88192 ML/MIN Normal IF non-AFR Greater than AMER 60 LAB L500.62663 ML/MIN Normal IF Greater than AMER 60 Performed By: #### L500.48848, L500.17041 #### [facility] [place] [address] PROG.NOTE Observed: 05/24/2018 Status: UNK Source: [facility] 10:20 AM [facility] REPOSITORY [facility] Patient Name: VENITA SMITH [facility] Date of : [address] [address] Unit Number: [id number] Progress Note-Physician Patient Status: REG RCR Attending Doctor: Colette Sloan DO Service Date: 05/24/18 1020 Subjective S: (2 ROS minimum) Feeling well, no fever, no abd pain, no n/v/d. Had some vaginal bleeding but no purulent discharge like last admission. Objective (ROS) Physical Exam Neurological / Psychiatric Alert Respiratory Normal Breathing Effort, Clear Lungs Cardiovascular Heart RRR, No M / R / G Gastrointestinal Non Tender, No Mass Skin No Rash, sacral wound dressed Assessment and Plan Conclusion 1. Osteomyelitis CT abd/pelvis report from [facility] placed in chart along with updated cx data. Some diverticulitis but no abscess seen. Sacral cx with ESBL ecoli and MDR Acinetobacter. Surgery following for debridement. Not a candidate for diverting ostomy per gen surg. Very limited options based on cx results. No growth of MRSA. 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 Treat with meropenem for ESBL and anaerobe coverage, will use bactrim and minocycline for Acinetobacter and CRE klebs. AcB was I to minocycline per [facility], but very limited other options. Given clinical stability, will avoid using colistin at this time. Plan on 6 week course of abx, picc in place, stop date 06/21/18. Will continue to follow. I think trying to keep her here as long as possible would be beneficial given how quickly and severely she worsened at last ECF. D/w wound care. 2. Complicated UTI (urinary tract infection) Associated with chronic allen. Updated Ucx results at [facility] showing with ESBL ecoli and CRE klebsiella pneumonia. Resolved s/p course of fosfomycin. Disclaimer This dictation was created using voice recognition software. Phonetic and/or minor grammatical errors may exist. eSign Date and Time Syeda Palmer MD Verified/Reviewed by 05/24/18 1022 PT Collected: 05/24/2018 Status: F Source: [facility] 4:06 AM [facility] REPOSITORY Order Comment: [place]: M TYPE CODE TESTS RESULT OUT OF RANGE REFERENCE UNITS LAB L300.23715 0.9-1.1 High INR 3.17 Result Comment: Recommended PT INR therapeutic range for detention and prophylactic therapy is 2.0 - 3.0. For heart valve and shunt patients the range is 2.5 - 3.5. LAB L300.06276 9.5-12.0 SECONDS High 33.9 PTS Performed By: #### L300.27260 #### [facility] [address] [place] [address] Observed: 05/23/2018 Status: F Source: [facility] MISC CULTURE 1:07 PM [facility] REPOSITORY Order Comment: [place]: Streptomycin Synergy Screen S Gentamicin Synergy Screen S RESULTS CALLED TO AND READ BACK BY [facility] AT 1245 05/26/18 BY KIMBERLY DAVIS THE PATIENT NEEDS TO BE PUT IN ISOLATION THIS BACTERIAL ISOLATE HAS BEEN DETERMINED TO BE A POSSIBLE CRE BY CDC DEFINITION CRE: CARBAPENEN RESISTANT ENTEROBACTERIACEAE HAD PREVIOUS NOT BEING SENT TO [facility] THE PATIENT NEEDS TO BE PUT IN ISOLATION CRITICAL VALUE(S) VERIFIED AND CALLED TO AND READ BACK BY MI AT 1015 05/27/18 BY DELVIS MALLOY Streptomycin Synergy Screen S Gentamicin Synergy Screen S RESULTS CALLED TO AND READ BACK BY [facility] AT 1245 05/26/18 BY KIMBERLY DAVIS THE PATIENT NEEDS TO BE PUT IN ISOLATION GRAM STAIN MODERATE WBC'S RARE GRAM POSITIVE COCCI ORGANISM 1: KLEBSIELLA PNEUMONIAE QUANTITATION MODERATE CRE POSITIVE KLEBSIELLA PNEUMONIAE: REACTION AMIKACIN 32 I AMPICILLIN >16 R AMP/SULBACTAM (UNASYN) >16/8 R AUGMENTIN (AMOX/K CLVULANATE) >16/8 R CEFAZOLIN >16 R CEFEPIME >16 R CEFOTAXIME >32 R CEFUROXIME >16 R CIPROFLOXACIN >4 R GENTAMICIN <4 S IMIPENEM >8 R ERTAPENEM >4 R PIPERACILLIN/TAZOBACTAM >64 R TETRACYCLINE 8 I TOBRAMYCIN >8 R TRIMETH/SULFA >2/38 R LEVOFLOXACIN >4 R MEROPENEM >8 R MOXIFLOXACIN >4 R ORGANISM 2: VANC. RESISTANT E. FAECIUM QUANTITATION MODERATE VANC. RESISTANT E. FAECIUM: REACTION AMPICILLIN >8 R CHLORAMPHENICOL <8 S ERYTHROMYCIN >4 R GENTAMICIN SYNERGY SCREEN <500 S LINEZOLID 2 S PENICILLIN >8 R RIFAMPIN 2 I STREPTOMYCIN SYNERGY SCREEN <1000 S TETRACYCLINE >8 R VANCOMYCIN >16 R LEVOFLOXACIN >4 R DAPTOMYCIN 2 S Performed By: #### M100.15309 #### [facility] [address] [place] [address] CBC W/DIFF Collected: 05/23/2018 Status: F Source: [facility] 4:38 AM [facility] REPOSITORY Order Comment: [place]: TYPE CODE TESTS RESULT OUT OF RANGE REFERENCE UNITS LAB L200.72335 4.5-11.0 K/CU MM WBC Normal 8.1 LAB L200.15586 3.90-5.30 M/CU MM Low RBC 3.19 LAB L200.98393 11.5-15.5 G/DL Low HGB 8.5 LAB L200.06231 35.0-47.0 % Low HCT 27.7 LAB L200.06875 80.0-99.0 fl MCV Normal 86.8 LAB L200.79867 32.0-36.0 GM/DL Low MCHC 30.7 LAB L200.27853 11-14.5 High RDW 16.9 LAB L200.22012 9.4-12.4 Low MPV 8.6 LAB L200.72290 150-450 K/CU MM PLT Normal 326 LAB L200.49094 45-75 % High NEUTROPHILS % 76.0 LAB L200.55404 Less than 2 % IMMATURE Normal GRAN % 0.6 LAB L200.81062 20-40 % Low LYMPH % 14.3 LAB L200.14407 2-10 % MONOCYTE % Normal 7.6 LAB L200.66349 0-5 % EOSINOPHIL Normal % 1.1 LAB L200.79239 0-2 % BASOPHIL % Normal 0.4 LAB L200.94266 2.0-8.3 K/CU MM NEUTROPHIL Normal ABS 6.20 LAB L200.62522 Less than 2 K/CU MM IMMATR GRAN Normal ABS 0.10 LAB L200.63534 0.9-4.4 K/CU MM LYMPH ABS Normal 1.20 LAB L200.09775 0.1-1.1 K/CU MM MONO ABS Normal 0.60 LAB L200.55908 0-0.5 K/CU MM EOS ABS Normal 0.10 LAB L200.14210 0-0.2 K/CU MM BASO ABS Normal 0.00 LAB L200.12375 Less than 1 % NRBC Normal 0.0 Performed By: #### L200.17978 #### [facility] [address] [place] [address] PT Collected: 05/23/2018 Status: F Source: [facility] 4:38 AM [facility] REPOSITORY Order Comment: [place]: M TYPE CODE TESTS RESULT OUT OF RANGE REFERENCE UNITS LAB L300.91855 0.9-1.1 High INR 3.01 Result Comment: Recommended PT INR therapeutic range for detention and prophylactic therapy is 2.0 - 3.0. For heart valve and shunt patients the range is 2.5 - 3.5. LAB L300.12503 9.5-12.0 SECONDS High 32.2 PTS Performed By: #### L300.33862 #### [facility] [address] [place] [address] CMP Collected: 05/23/2018 Status: F Source: [facility] 4:38 AM [facility] REPOSITORY Order Comment: [place]: M TYPE CODE TESTS RESULT OUT OF RANGE REFERENCE UNITS LAB L500.44466 136-145 MMOL/L Low NA 135 LAB L500.00690 3.5-5.1 MMOL/L Normal K 4.8 LAB L500.89848 98-107 MMOL/L Normal CL 106 LAB L500.87189 21-32 MMOL/L Normal CO2 21 LAB L500.35120 5-16 MMOL/L Normal AGAP 9 LAB L500.40121 70-100 MG/DL High GLU 214 Result Comment: 70-100- Normal Fasting; 100-125 Impaired Fasting; greater than 126 on more than one result- Diabetes. ADA guidelines. Results may be falsely elevated after the administration of Sulfapyridine. Results may be falsely depressed after the administration of Sulfasalazine. LAB L500.08828 7-26 MG/DL High BUN 41 LAB L500.49199 0.510-0.950 MG/DL Low CREAT 0.418 Result Comment: Patients receiving either N-Acetylcysteine (NAC) or Metamizole prior to venipuncture, may have falsely depressed results. LAB L500.34963 15-24 High BUN/CREA 98 LAB L500.12774 6.0-8.5 GM/DL Low TP 5.4 LAB L500.28334 3.2-5.0 GM/DL Low ALBUMIN 1.9 LAB L500.07898 2.2-4.2 GM/DL Normal GLOBULIN 3.5 LAB L500.64371 0.8-2.0 Low A/G RATIO 0.5 LAB L500.78925 8.5-10.1 MG/DL Normal CALCIUM TOTAL 8.7 LAB L500.00127 0.2-1.0 MG/DL Normal BILI TOTAL 0.2 LAB L500.73597 8-34 U/L High SGOT (AST) 38 Result Comment: RESULTS MAY BE FALSELY DEPRESSED AFTER THE ADMINISTRATION OF SULFASALAZINE AND/OR SULFAPYRIDINE. LAB L500.78865 13-61 IU/L High SGPT (ALT) 88 Result Comment: RESULTS MAY BE FALSELY DEPRESSED AFTER THE ADMINISTRATION OF SULFASALAZINE AND/OR SULFAPYRIDINE. LAB L500.05701 45-117 U/L Normal ALK PHOS 100 Performed By: #### L500.74756, L500.90358 #### [facility] [address] [place] [address] GFR EST Collected: 05/23/2018 Status: F Source: [facility] 4:38 AM [facility] REPOSITORY Order Comment: [place]: M TYPE CODE TESTS RESULT OUT OF RANGE REFERENCE UNITS LAB L500.36968 ML/MIN Normal IF non-AFR Greater than AMER 60 LAB L500.51219 ML/MIN Normal IF Greater than AMER 60 Performed By: #### L500.48092, L500.74034 #### [facility] [address] [place], [place] [id number] Observed: 05/22/2018 Status: CANCELLED Source: [facility] BODY FLD 6:29 PM [facility] REPOSITORY Order Comment: NO SPECIMEN REC'D WRONG ORDER PER GEOVANNA This report has been cancelled PROG.NOTE Observed: 05/22/2018 Status: UNK Source: [facility] 2[facility]05 PM [facility] Patient Name: VENITA SMITH [employer] [facility] Date of : [address] [address] Unit Number: [id number] Progress Note-Physician Patient Status: REG RCR Attending Doctor: Colette Sloan DO Service Date: 05/22/18 1405 Subjective S: (2 ROS minimum) Feeling well, no fever, no abd pain, no n/v/d. Objective (ROS) Physical Exam Neurological / Psychiatric Alert Respiratory Normal Breathing Effort, Clear Lungs Cardiovascular Heart RRR, No M / R / G Gastrointestinal Non Tender, No Mass Skin No Rash, sacral wound vac Assessment and Plan Conclusion 1. Osteomyelitis On Sun 10:13a May 10, [address] abd/pelvis report from [facility] placed in chart along with updated cx data. Some diverticulitis but no abscess seen. Sacral cx with ESBL ecoli and MDR Acinetobacter. Surgery following for debridement. Not a candidate for diverting ostomy per gen surg. Very limited options based on cx results. No growth of MRSA. 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 Treat with meropenem for ESBL and anaerobe coverage, will use bactrim and minocycline for Acinetobacter and CRE klebs. AcB was I to minocycline per [facility], but very limited other options. Given clinical stability, will avoid using colistin at this time. Plan on 6 week course of abx, picc in place, stop date 06/21/18. Will continue to follow. 2. Complicated UTI (urinary tract infection) Associated with chronic allen. Updated Ucx results at [facility] showing with ESBL ecoli and CRE klebsiella pneumonia. Resolved s/p course of fosfomycin. Disclaimer This dictation was created using voice recognition software. Phonetic and/or minor grammatical errors may exist. eSign Date and Time Syeda Palmer MD Verified/Reviewed by 05/22/18 8497 PT Collected: 05/22/2018 Status: F Source: [facility] 4:11 AM [facility] REPOSITORY Order Comment: [place]: M TYPE CODE TESTS RESULT OUT OF RANGE REFERENCE UNITS LAB L300.10410 0.9-1.1 High INR 2.65 Result Comment: Recommended PT INR therapeutic range for detention and prophylactic therapy is 2.0 - 3.0. For heart valve and shunt patients the range is 2.5 - 3.5. LAB L300.78860 9.5-12.0 SECONDS High 28.4 PTS Performed By: #### L300.91945 #### [facility] [address]# [phone] CBC W/DIFF Collected: 05/21/2018 Status: F Source: [facility] 4:21 AM [facility] REPOSITORY Order Comment: [place]: M TYPE CODE TESTS RESULT OUT OF RANGE REFERENCE UNITS LAB L200.51419 4.5-11.0 K/CU MM WBC Normal 7.0 LAB L200.92743 3.90-5.30 M/CU MM Low RBC 3.22 LAB L200.18809 11.5-15.5 G/DL Low HGB 8.8 LAB L200.74399 35.0-47.0 % Low HCT 27.7 LAB L200.32222 80.0-99.0 fl MCV Normal 86.0 LAB L200.35072 32.0-36.0 GM/DL Low MCHC 31.8 LAB L200.39377 11-14.5 High RDW 17.0 LAB L200.59013 9.4-12.4 Low MPV 8.4 LAB L200.76499 150-450 K/CU MM PLT Normal 323 LAB L200.88493 45-75 % NEUTROPHILS Normal % 70.3 LAB L200.14939 Less than 2 % IMMATURE Normal GRAN % 0.7 LAB L200.64029 20-40 % Low LYMPH % 17.7 LAB L200.09850 2-10 % MONOCYTE % Normal 9.7 LAB L200.25796 0-5 % EOSINOPHIL Normal % 1.3 LAB L200.00750 0-2 % BASOPHIL % Normal 0.3 LAB L200.15237 2.0-8.3 K/CU MM NEUTROPHIL Normal ABS 4.90 LAB L200.40863 Less than 2 K/CU MM IMMATR GRAN Normal ABS 0.10 LAB L200.32613 0.9-4.4 K/CU MM LYMPH ABS Normal 1.20 LAB L200.46678 0.1-1.1 K/CU MM MONO ABS Normal 0.70 LAB L200.68163 0-0.5 K/CU MM EOS ABS Normal 0.10 LAB L200.46130 0-0.2 K/CU MM BASO ABS Normal 0.00 LAB L200.05779 Less than 1 % NRBC Normal 0.0 Performed By: #### L200.53756 #### [facility] [address] [place] [address] PT Collected: 05/21/2018 Status: F Source: [facility] 4:21 AM [facility] REPOSITORY Order Comment: [place]: M TYPE CODE TESTS RESULT OUT OF RANGE REFERENCE UNITS LAB L300.11677 0.9-1.1 High INR 2.42 Result Comment: Recommended PT INR therapeutic range for detention and prophylactic therapy is 2.0 - 3.0. For heart valve and shunt patients the range is 2.5 - 3.5. LAB L300.97841 9.5-12.0 SECONDS High 25.9 PTS Performed By: #### L300.68669 #### [facility] [address] [place] [address] CMP Collected: 05/21/2018 Status: F Source: [facility] 4:21 AM [facility] REPOSITORY Order Comment: [place]: M TYPE CODE TESTS RESULT OUT OF RANGE REFERENCE UNITS LAB L500.19914 136-145 MMOL/L Low NA 135 LAB L500.20306 3.5-5.1 MMOL/L Normal K 4.9 LAB L500.76756 98-107 MMOL/L Normal CL 104 LAB L500.66535 21-32 MMOL/L Normal CO2 21 LAB L500.64045 5-16 MMOL/L Normal AGAP 10 LAB L500.32681 70-100 MG/DL High GLU 154 Result Comment: 70-100- Normal Fasting; 100-125 Impaired Fasting; greater than 126 on more than one result- Diabetes. ADA guidelines. Results may be falsely elevated after the administration of Sulfapyridine. Results may be falsely depressed after the administration of Sulfasalazine. LAB L500.70448 7-26 MG/DL High BUN 31 LAB L500.46619 0.510-0.950 MG/DL Low CREAT 0.405 Result Comment: Patients receiving either N-Acetylcysteine (NAC) or Metamizole prior to venipuncture, may have falsely depressed results. LAB L500.54447 15-24 High BUN/CREA 77 LAB L500.66137 6.0-8.5 GM/DL Low TP 5.6 LAB L500.20548 3.2-5.0 GM/DL Low ALBUMIN 1.9 LAB L500.84494 2.2-4.2 GM/DL Normal GLOBULIN 3.7 LAB L500.78444 0.8-2.0 Low A/G RATIO 0.5 LAB L500.01975 8.5-10.1 MG/DL Normal CALCIUM TOTAL 8.8 LAB L500.83684 0.2-1.0 MG/DL Normal BILI TOTAL 0.2 LAB L500.81933 8-34 U/L High SGOT (AST) 58 Result Comment: RESULTS MAY BE FALSELY DEPRESSED AFTER THE ADMINISTRATION OF SULFASALAZINE AND/OR SULFAPYRIDINE. LAB L500.44183 13-61 IU/L High SGPT (ALT) 99 Result Comment: RESULTS MAY BE FALSELY DEPRESSED AFTER THE ADMINISTRATION OF SULFASALAZINE AND/OR SULFAPYRIDINE. LAB L500.44423 45-117 U/L Normal ALK PHOS 101 Performed By: #### L500.42632, L500.03475 #### [facility] [address] [place] [address] GFR EST Collected: 05/21/2018 Status: F Source: [facility] 4:21 AM [facility] REPOSITORY Order Comment: [place]: M TYPE CODE TESTS RESULT OUT OF RANGE REFERENCE UNITS LAB L500.23071 ML/MIN Normal IF non-AFR Greater than AMER 60 LAB L500.84008 ML/MIN Normal IF Greater than AMER 60 Performed By: #### L500.92143, L500.37676 #### [facility] [address] [place] [address] CBC W/DIFF Collected: 05/20/2018 Status: F Source: [facility] 4:43 AM [facility] REPOSITORY Order Comment: [place]: M TYPE CODE TESTS RESULT OUT OF RANGE REFERENCE UNITS LAB L200.39917 4.5-11.0 K/CU MM WBC Normal 8.1 LAB L200.10654 3.90-5.30 M/CU MM Low RBC 3.38 LAB L200.48397 11.5-15.5 G/DL Low HGB 9.2 LAB L200.99705 35.0-47.0 % Low HCT 29.0 LAB L200.33991 80.0-99.0 fl MCV Normal 85.8 LAB L200.36600 32.0-36.0 GM/DL Low MCHC 31.7 LAB L200.46669 11-14.5 High RDW 17.1 LAB L200.92936 9.4-12.4 Low MPV 8.6 LAB L200.68897 150-450 K/CU MM PLT Normal 330 LAB L200.48444 45-75 % NEUTROPHILS Normal % 73.3 LAB L200.57442 Less than 2 % IMMATURE Normal GRAN % 0.5 LAB L200.57981 20-40 % Low LYMPH % 14.4 LAB L200.24959 2-10 % High MONOCYTE % 10.5 LAB L200.33851 0-5 % EOSINOPHIL Normal % 0.9 LAB L200.04136 0-2 % BASOPHIL % Normal 0.4 LAB L200.24402 2.0-8.3 K/CU MM NEUTROPHIL Normal ABS 5.90 LAB L200.51918 Less than 2 K/CU MM IMMATR GRAN Normal ABS 0.00 LAB L200.41838 0.9-4.4 K/CU MM LYMPH ABS Normal 1.20 LAB L200.55836 0.1-1.1 K/CU MM MONO ABS Normal 0.90 LAB L200.85680 0-0.5 K/CU MM EOS ABS Normal 0.10 LAB L200.85167 0-0.2 K/CU MM BASO ABS Normal 0.00 LAB L200.31082 Less than 1 % NRBC Normal 0.0 Performed By: #### L200.19921 #### [facility] [address] [place] [address] PT Collected: 05/20/2018 Status: F Source: [facility] 4:43 AM [facility] REPOSITORY Order Comment: [place]: M TYPE CODE TESTS RESULT OUT OF RANGE REFERENCE UNITS LAB L300.14553 0.9-1.1 High INR 2.34 Result Comment: 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 For heart valve and shunt patients the range is 2.5 - 3.5. LAB L300.57652 9.5-12.0 SECONDS High 25.0 PTS Performed By: #### L300.02707 #### [facility] [address] [place] [address] CMP Collected: 05/20/2018 Status: F Source: [facility] 4:43 AM [facility] REPOSITORY Order Comment: [place]: M TYPE CODE TESTS RESULT OUT OF RANGE REFERENCE UNITS LAB L500.11392 136-145 MMOL/L Low NA 134 LAB L500.04539 3.5-5.1 MMOL/L Normal K 4.6 LAB L500.46109 98-107 MMOL/L Normal CL 103 LAB L500.71161 21-32 MMOL/L Low CO2 20 LAB L500.36346 5-16 MMOL/L Normal AGAP 11 LAB L500.86692 70-100 MG/DL High GLU 235 Result Comment: 70-100- Normal Fasting; 100-125 Impaired Fasting; greater than 126 on more than one result- Diabetes. ADA guidelines. Results may be falsely elevated after the administration of Sulfapyridine. Results may be falsely depressed after the administration of Sulfasalazine. LAB L500.08249 7-26 MG/DL High BUN 34 LAB L500.86551 0.510-0.950 MG/DL Low CREAT 0.441 Result Comment: Patients receiving either N-Acetylcysteine (NAC) or Metamizole prior to venipuncture, may have falsely depressed results. LAB L500.16973 15-24 High BUN/CREA 77 LAB L500.94530 6.0-8.5 GM/DL Low TP 5.7 LAB L500.39314 3.2-5.0 GM/DL Low ALBUMIN 1.9 LAB L500.95762 2.2-4.2 GM/DL Normal GLOBULIN 3.8 LAB L500.08091 0.8-2.0 Low A/G RATIO 0.5 LAB L500.48493 8.5-10.1 MG/DL Low CALCIUM TOTAL 8.4 LAB L500.06812 0.2-1.0 MG/DL Normal BILI TOTAL 0.2 LAB L500.50712 8-34 U/L High SGOT (AST) 90 Result Comment: RESULTS MAY BE FALSELY DEPRESSED AFTER THE ADMINISTRATION OF SULFASALAZINE AND/OR SULFAPYRIDINE. LAB L500.52196 13-61 IU/L High SGPT (ALT) 122 Result Comment: RESULTS MAY BE FALSELY DEPRESSED AFTER THE ADMINISTRATION OF SULFASALAZINE AND/OR SULFAPYRIDINE. LAB L500.82998 45-117 U/L Normal ALK PHOS 105 Performed By: #### L500.39467, L500.02345, L500.58760, L500.63010 #### [facility] [address] [place] [address] GFR EST Collected: 05/20/2018 Status: F Source: [facility] 4:43 AM [facility] REPOSITORY Order Comment: [place]: M TYPE CODE TESTS RESULT OUT OF RANGE REFERENCE UNITS LAB L500.47376 ML/MIN Normal IF non-AFR Greater than AMER 60 LAB L500.72739 ML/MIN Normal IF Greater than AMER 60 Performed By: #### L500.74030, L500.66442, L500.71279, L500.71445 #### [facility] [address] [place] [address] PHOS Collected: 05/20/2018 Status: F Source: [facility] 4:43 AM [facility] REPOSITORY Order Comment: [place]: M TYPE CODE TESTS RESULT OUT OF RANGE REFERENCE UNITS LAB L500.29222 2.5-4.9 MG/DL Normal PHOS 3.0 Performed By: #### L500.46803, L500.81816, L500.96000, L500.39327 #### [facility] [address] [place] [address] MAGNESIUM Collected: 05/20/2018 Status: F Source: [place] [address]:43 AM [facility] REPOSITORY Order Comment: [place]: M TYPE CODE TESTS RESULT OUT OF RANGE REFERENCE UNITS LAB L500.01109 1.6-2.6 MG/DL Normal MAGNESIUM 1.9 Performed By: #### L500.28770, L500.03130, L500.76842, L500.18378 #### [facility] [address] [place] [address] Observed: 05/19/2018 Status: F Source: [facility] BLOOD CULTURE 1:30 PM [facility] REPOSITORY Order Comment: [place]: M NO GROWTH AFTER 5 DAYS Performed By: #### M050.48756 #### [facility] [address] [place] [address] Observed: 05/19/2018 Status: F Source: [facility] BLOOD CULTURE 1:30 PM [facility] REPOSITORY Order Comment: [place]: M NO GROWTH AFTER 5 DAYS Performed By: #### M050.55081 #### [facility] [address] [place] [address] CBC W/DIFF Collected: 05/19/2018 Status: F Source: [facility] 4:26 AM [facility] REPOSITORY Order Comment: [place]: M TYPE CODE TESTS RESULT OUT OF RANGE REFERENCE UNITS LAB L200.64735 4.5-11.0 K/CU MM WBC Normal 9.6 LAB L200.22094 3.90-5.30 M/CU MM Low RBC 3.26 LAB L200.42274 11.5-15.5 G/DL Low HGB 8.8 LAB L200.51199 35.0-47.0 % Low HCT 27.9 LAB L200.21313 80.0-99.0 fl MCV Normal 85.6 LAB L200.37449 32.0-36.0 GM/DL Low MCHC 31.5 LAB L200.33731 11-14.5 High RDW 17.2 LAB L200.56493 9.4-12.4 Low MPV 8.6 LAB L200.48303 150-450 K/CU MM PLT Normal 289 LAB L200.05699 45-75 % High NEUTROPHILS % 76.7 LAB L200.13159 Less than 2 % IMMATURE Normal GRAN % 0.7 LAB L200.97226 20-40 % Low LYMPH % 12.8 LAB L200.24226 2-10 % MONOCYTE % Normal 8.8 LAB L200.63073 0-5 % EOSINOPHIL Normal % 0.7 LAB L200.56645 0-2 % BASOPHIL % Normal 0.3 LAB L200.42333 2.0-8.3 K/CU MM NEUTROPHIL Normal ABS 7.40 LAB L200.40263 Less than 2 K/CU MM IMMATR GRAN Normal ABS 0.10 LAB L200.08173 0.9-4.4 K/CU MM LYMPH ABS Normal 1.20 LAB L200.06611 0.1-1.1 K/CU MM MONO ABS Normal 0.80 LAB L200.24573 0-0.5 K/CU MM EOS ABS Normal 0.10 LAB L200.71998 0-0.2 K/CU MM BASO ABS Normal 0.00 LAB L200.62797 Less than 1 % NRBC Normal 0.0 Performed By: #### L200.69171 #### [facility] [address] [place] [address] PT Collected: 05/19/2018 Status: F Source: [facility] 4:26 AM [facility] REPOSITORY Order Comment: [place]: M TYPE CODE TESTS RESULT OUT OF RANGE REFERENCE UNITS LAB L300.47057 0.9-1.1 High INR 2.00 Result Comment: 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 For heart valve and shunt patients the range is 2.5 - 3.5. LAB L300.33891 9.5-12.0 SECONDS High 21.4 PTS Performed By: #### L300.00109 #### [facility] [address] [place] [address] CMP Collected: 05/19/2018 Status: F Source: [facility] 4:26 AM [facility] REPOSITORY Order Comment: [place]: M TYPE CODE TESTS RESULT OUT OF RANGE REFERENCE UNITS LAB L500.55125 136-145 MMOL/L Normal NA 136 LAB L500.71085 3.5-5.1 MMOL/L Normal K 4.6 LAB L500.89399 98-107 MMOL/L Normal CL 105 LAB L500.76824 21-32 MMOL/L Low CO2 20 LAB L500.61396 5-16 MMOL/L Normal AGAP 11 LAB L500.04516 70-100 MG/DL High GLU 177 Result Comment: 70-100- Normal Fasting; 100-125 Impaired Fasting; greater than 126 on more than one result- Diabetes. ADA guidelines. Results may be falsely elevated after the administration of Sulfapyridine. Results may be falsely depressed after the administration of Sulfasalazine. LAB L500.53698 7-26 MG/DL High BUN 43 LAB L500.19253 0.510-0.950 MG/DL Normal CREAT 0.595 Result Comment: Patients receiving either N-Acetylcysteine (NAC) or Metamizole prior to venipuncture, may have falsely depressed results. LAB L500.88782 15-24 High BUN/CREA 72 LAB L500.61547 6.0-8.5 GM/DL Low TP 5.6 LAB L500.41288 3.2-5.0 GM/DL Low ALBUMIN 1.8 LAB L500.11323 2.2-4.2 GM/DL Normal GLOBULIN 3.8 LAB L500.08341 0.8-2.0 Low A/G RATIO 0.5 LAB L500.04845 8.5-10.1 MG/DL Normal CALCIUM TOTAL 8.6 LAB L500.76300 0.2-1.0 MG/DL Normal BILI TOTAL 0.2 LAB L500.56685 8-34 U/L High SGOT (AST) 49 Result Comment: RESULTS MAY BE FALSELY DEPRESSED AFTER THE ADMINISTRATION OF SULFASALAZINE AND/OR SULFAPYRIDINE. LAB L500.68719 13-61 IU/L High SGPT (ALT) 87 Result Comment: RESULTS MAY BE FALSELY DEPRESSED AFTER THE ADMINISTRATION OF SULFASALAZINE AND/OR SULFAPYRIDINE. LAB L500.43276 45-117 U/L Normal ALK PHOS 98 Performed By: #### L500.07389, L500.81802 #### [facility] [address] [place] [address] GFR EST Collected: 05/19/2018 Status: F Source: [facility] 4:26 AM [facility] REPOSITORY Order Comment: [place]: M TYPE CODE TESTS RESULT OUT OF RANGE REFERENCE UNITS LAB L500.50927 ML/MIN Normal IF non-AFR Greater than AMER 60 LAB L500.08055 ML/MIN Normal IF Greater than AMER 60 Performed By: #### L500.16680, L500.43414 #### [facility] [address] [place] [address] PT Collected: 05/18/2018 Status: F Source: [facility] 4:12 AM [facility] REPOSITORY Order Comment: [place]: M TYPE CODE TESTS RESULT OUT OF RANGE REFERENCE UNITS LAB L300.74259 0.9-1.1 High INR 1.74 Result Comment: 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 For heart valve and shunt patients the range is 2.5 - 3.5. LAB L300.24551 9.5-12.0 SECONDS High 18.6 PTS Performed By: #### L300.11207 #### [facility] [address] [place] [address] CBC W/DIFF Collected: 05/18/2018 Status: F Source: [facility] 4:12 AM [facility] REPOSITORY Order Comment: [place]: M TYPE CODE TESTS RESULT OUT OF RANGE REFERENCE UNITS LAB L200.42550 4.5-11.0 K/CU MM High WBC 12.5 LAB L200.95590 3.90-5.30 M/CU MM Low RBC 3.47 LAB L200.73873 11.5-15.5 G/DL Low HGB 9.3 LAB L200.26014 35.0-47.0 % Low HCT 29.8 LAB L200.13327 80.0-99.0 fl MCV Normal 85.9 LAB L200.87794 32.0-36.0 GM/DL Low MCHC 31.2 LAB L200.85009 11-14.5 High RDW 17.9 LAB L200.99104 9.4-12.4 Low MPV 8.7 LAB L200.71678 150-450 K/CU MM PLT Normal 321 LAB L200.41272 45-75 % High NEUTROPHILS % 80.0 LAB L200.48472 Less than 2 % IMMATURE Normal GRAN % 0.7 LAB L200.52897 20-40 % Low LYMPH % 9.0 LAB L200.75284 2-10 % MONOCYTE % Normal 9.5 LAB L200.88350 0-5 % EOSINOPHIL Normal % 0.6 LAB L200.12666 0-2 % BASOPHIL % Normal 0.2 LAB L200.61099 2.0-8.3 K/CU MM High NEUTROPHIL ABS 10.00 LAB L200.02288 Less than 2 K/CU MM IMMATR GRAN Normal ABS 0.10 LAB L200.48227 0.9-4.4 K/CU MM LYMPH ABS Normal 1.10 LAB L200.53533 0.1-1.1 K/CU MM High MONO ABS 1.20 LAB L200.92712 0-0.5 K/CU MM EOS ABS Normal 0.10 LAB L200.31876 0-0.2 K/CU MM BASO ABS Normal 0.00 LAB L200.71031 Less than 1 % NRBC Normal 0.0 Performed By: #### L200.52323 #### [facility] [address] [place] [address] CMP Collected: 05/18/2018 Status: F Source: [facility] 4:12 AM [facility] REPOSITORY Order Comment: [place]: TYPE CODE TESTS RESULT OUT OF RANGE REFERENCE UNITS LAB L500.54045 136-145 MMOL/L Low NA 133 LAB L500.33306 3.5-5.1 MMOL/L Normal K 4.9 LAB L500.87117 98-107 MMOL/L Normal CL 102 LAB L500.74551 21-32 MMOL/L Normal CO2 21 LAB L500.15636 5-16 MMOL/L Normal AGAP 10 LAB L500.06882 70-100 MG/DL High GLU 129 Result Comment: 70-100- Normal Fasting; 100-125 Impaired Fasting; greater than 126 on more than one result- Diabetes. ADA guidelines. Results may be falsely elevated after the administration of Sulfapyridine. Results may be falsely depressed after the administration of Sulfasalazine. LAB L500.07877 7-26 MG/DL High BUN 44 LAB L500.07718 0.510-0.950 MG/DL Normal CREAT 0.564 Result Comment: Patients receiving either N-Acetylcysteine (NAC) or Metamizole prior to venipuncture, may have falsely depressed results. LAB L500.67881 15-24 High BUN/CREA 78 LAB L500.05838 6.0-8.5 GM/DL Low TP 5.4 LAB L500.48567 3.2-5.0 GM/DL Low ALBUMIN 1.9 LAB L500.56766 2.2-4.2 GM/DL Normal GLOBULIN 3.5 LAB L500.40409 0.8-2.0 Low A/G RATIO 0.5 LAB L500.65123 8.5-10.1 MG/DL Normal CALCIUM TOTAL 8.9 LAB L500.41898 0.2-1.0 MG/DL Normal BILI TOTAL 0.2 LAB L500.25541 8-34 U/L High SGOT (AST) 74 Result Comment: RESULTS MAY BE FALSELY DEPRESSED AFTER THE ADMINISTRATION OF SULFASALAZINE AND/OR SULFAPYRIDINE. LAB L500.80392 13-61 IU/L High SGPT (ALT) 95 Result Comment: RESULTS MAY BE FALSELY DEPRESSED AFTER THE ADMINISTRATION OF SULFASALAZINE AND/OR SULFAPYRIDINE. LAB L500.10843 45-117 U/L Normal ALK PHOS 100 Performed By: #### L500.53750, L500.20691 #### [facility] [address] [place] [address] GFR EST Collected: 05/18/2018 Status: F Source: [facility] 4:12 AM [facility] REPOSITORY Order Comment: [place]: M TYPE CODE TESTS RESULT OUT OF RANGE REFERENCE UNITS LAB L500.22748 ML/MIN Normal IF non-AFR Greater than AMER 60 LAB L500.19393 ML/MIN Normal IF Greater than AMER 60 Performed By: #### L500.41536, L500.88125 #### [facility] [address] [place] [address] PT Collected: 05/17/2018 Status: F Source: [facility] 3:59 AM [facility] REPOSITORY Order Comment: [place]: M TYPE CODE TESTS RESULT OUT OF RANGE REFERENCE UNITS LAB L300.64726 0.9-1.1 High INR 1.56 Result Comment: Recommended PT INR therapeutic range for detention and prophylactic therapy is 2.0 - 3.0. For heart valve and shunt patients the range is 2.5 - 3.5. LAB L300.99723 9.5-12.0 SECONDS High 16.7 PTS Performed By: #### L300.71477 #### [facility] [address] [place] [address] K Collected: 05/16/2018 Status: F Source: [facility] 5:20 PM [facility] REPOSITORY Order Comment: [place]: M TYPE CODE TESTS RESULT OUT OF RANGE REFERENCE UNITS LAB L500.46365 3.5-5.1 MMOL/L Normal K 4.6 Performed By: #### L500.68525 #### [facility] [address] [place] [address] PROG.NOTE Observed: 05/16/2018 Status: UNK Source: [facility] 4:37 PM [facility] REPOSITORY [facility] Patient Name: VENITA SMITH [address] [place] [address] Date of : [address] [address] Unit Number: [id number] Progress Note-Physician Patient Status: REG RCR Attending Doctor: Colette Sloan DO Service Date: 05/16/18 1637 See Addendum Subjective S: (2 ROS minimum) Pt has no new complaints. She denies f/c. Ongoing stable sacral pain. No palpitations. Objective (ROS) Physical Exam Physical Examination Notes NAD RRR RUE PICC intact No wheezes. Breathing nonlabored Abd soft, NT Diagnostic Data: Lab 24hr (CBC/BMP Fishbone) 05/16/18 0439: [Embedded Image Not Available] Anion Gap 11, Est GFR ( Amer) Greater than 60, Est GFR (Non-Af Amer) Greater than 60, BUN/Creatinine Ratio 94 H, Glucose 261 H, Total Calcium 8.9, Total Bilirubin 0.2, AST 85 H, ALT 80 H, Alkaline Phosphatase 97, Serum Total Protein 5.9 L, Albumin 1.9 L, Globulin 4.0, Albumin/Globulin Ratio 0.5 L, INR 1.40 H, PT Normal Mean Secs 15.0 H, RBC 3.48 L, MCV 83.9, MCHC 32.5, RDW 17.4 H, MPV 9.2 L, Immature Gran % (Auto) 0.6, Abs Immat Gran (auto) 0.00, Seg Neutrophils % 72.7, Lymphocytes % 13.6 L, Monocytes % 11.9 H, Eosinophils % 0.9, Basophils % 0.3, Neutrophils # 5.10, Lymphocytes # 1.00, Monocytes # 0.80, Eosinophils # 0.10, Basophils # 0.00, Nucleated RBCs 0.0, Platelet Estimate ADEQUATE Assessment and Plan Conclusion 1. Sacral decubitus ulcer, stage IV 2. Osteomyelitis 3. Complicated UTI (urinary tract infection) Currently on meropenem, minocycline, and Bactrim. Potassium of 5.4 noted. Discussed with charge nurse. Pt on Bactrim. Would like to continue this if potassium is able to be brought down. I asked the charge nurse to address with the primary service. group home antibiotics. Notified by pharmacy that IV minocycline may be in short supply soon. If so, then may have to substitute oral minocycline temporarily. Pt looks stable. ADDENDUM: GOLDY CHEN on 05/16/18 at 1639 Vitals: AF 72 18 101/56 97% Disclaimer This dictation was created using voice recognition software. Phonetic and/or minor grammatical errors may exist. eSign Date and Time Goldy Chen MD Verified/Reviewed by 05/16/18 1640 PT Collected: 05/16/2018 Status: F Source: [facility] 4:39 AM [facility] REPOSITORY Order Comment: [place]: M TYPE CODE TESTS RESULT OUT OF RANGE REFERENCE UNITS LAB L300.56826 0.9-1.1 High INR 1.40 Result Comment: Recommended PT INR therapeutic range for detention and prophylactic therapy is 2.0 - 3.0. For heart valve and shunt patients the range is 2.5 - 3.5. LAB L300.61621 9.5-12.0 SECONDS High 15.0 PTS Performed By: #### L300.53191 #### [facility] [address] [place] [address] CBC W/DIFF Collected: 05/16/2018 Status: F Source: [facility] 4:39 AM [facility] REPOSITORY Order Comment: [place]: TYPE CODE TESTS RESULT OUT OF RANGE REFERENCE UNITS LAB L200.91822 4.5-11.0 K/CU MM Normal WBC 7.0 LAB L200.69855 3.90-5.30 M/CU MM Low RBC 3.48 LAB L200.29243 11.5-15.5 G/DL Low HGB 9.5 LAB L200.68343 35.0-47.0 % Low HCT 29.2 LAB L200.60506 80.0-99.0 fl Normal MCV 83.9 LAB L200.25297 32.0-36.0 GM/DL Normal MCHC 32.5 LAB L200.88016 11-14.5 High RDW 17.4 LAB L200.21008 9.4-12.4 Low MPV 9.2 LAB L200.23671 150-450 K/CU MM Normal PLT 342 Result Comment: Confirmed by slide estimate. LAB L200.36852 45-75 % NEUTROPHILS Normal % 72.7 LAB L200.10733 Less than % 2 IMMATURE Normal GRAN % 0.6 LAB L200.36211 20-40 % Low LYMPH % 13.6 LAB L200.31696 2-10 % High MONOCYTE % 11.9 LAB L200.37296 0-5 % EOSINOPHIL Normal % 0.9 LAB L200.36236 0-2 % BASOPHIL % Normal 0.3 LAB L200.56895 2.0-8.3 K/CU MM NEUTROPHIL Normal ABS 5.10 LAB L200.52135 Less than K/CU MM 2 IMMATR GRAN Normal ABS 0.00 LAB L200.48437 0.9-4.4 K/CU MM LYMPH ABS Normal 1.00 LAB L200.22145 0.1-1.1 K/CU MM MONO ABS Normal 0.80 LAB L200.63935 0-0.5 K/CU MM EOS ABS Normal 0.10 LAB L200.99889 0-0.2 K/CU MM BASO ABS Normal 0.00 LAB L200.30838 Less than % 1 NRBC Normal 0.0 LAB L200.93152 PLT EST Normal ADEQUATE Performed By: #### [id number] #### [facility] [address] [place] [address] CMP Collected: 05/16/2018 Status: F Source: [facility] 4:39 AM [facility] REPOSITORY Order Comment: [place]: M TYPE CODE TESTS RESULT OUT OF RANGE REFERENCE UNITS LAB L500.66033 136-145 MMOL/L Low NA 133 LAB L500.39664 3.5-5.1 MMOL/L High K 5.4 Result Comment: Slight Hemolysis, Result may be falsely increased. LAB L500.44682 98-107 MMOL/L Normal CL 101 LAB L500.96375 21-32 MMOL/L Normal CO2 22 LAB L500.71228 5-16 MMOL/L Normal AGAP 11 LAB L500.28456 70-100 MG/DL High GLU 261 Result Comment: 70-100- Normal Fasting; 100-125 Impaired Fasting; greater than 126 on more than one result- Diabetes. ADA guidelines. Results may be falsely elevated after the administration of Sulfapyridine. Results may be falsely depressed after the administration of Sulfasalazine. LAB L500.45409 7-26 MG/DL High BUN 34 LAB L500.15593 0.510-0.950 MG/DL Low CREAT 0.361 Result Comment: Patients receiving either N-Acetylcysteine (NAC) or Metamizole prior to venipuncture, may have falsely depressed results. LAB L500.46349 15-24 High BUN/CREA 94 LAB L500.57709 6.0-8.5 GM/DL Low TP 5.9 LAB L500.11718 3.2-5.0 GM/DL Low ALBUMIN 1.9 LAB L500.69801 2.2-4.2 GM/DL Normal GLOBULIN 4.0 LAB L500.10390 0.8-2.0 Low A/G RATIO 0.5 LAB L500.82514 8.5-10.1 MG/DL Normal CALCIUM TOTAL 8.9 LAB L500.16761 0.2-1.0 MG/DL Normal BILI TOTAL 0.2 LAB L500.18490 8-34 U/L High SGOT (AST) 85 Result Comment: Slight Hemolysis, Result may be falsely increased. RESULTS MAY BE FALSELY DEPRESSED AFTER THE ADMINISTRATION OF SULFASALAZINE AND/OR SULFAPYRIDINE. LAB L500.67372 13-61 IU/L High SGPT (ALT) 80 Result Comment: RESULTS MAY BE FALSELY DEPRESSED AFTER THE ADMINISTRATION OF SULFASALAZINE AND/OR SULFAPYRIDINE. LAB L500.45192 45-117 U/L Normal ALK PHOS 97 Performed By: #### L500.20459, L500.77974 #### [facility] [address] [place] [address] GFR EST Collected: 05/16/2018 Status: F Source: [facility] 4:39 AM [facility] REPOSITORY Order Comment: [place]: M TYPE CODE TESTS RESULT OUT OF RANGE REFERENCE UNITS LAB L500.65029 ML/MIN Normal IF non-AFR Greater than AMER 60 LAB L500.20473 ML/MIN Normal IF Greater than AMER 60 Performed By: #### L500.57740, L500.20572 #### [facility] [address] [place] [address] PT Collected: 05/15/2018 Status: F Source: [facility] 4:29 AM [facility] REPOSITORY Order Comment: [place]: M TYPE CODE TESTS RESULT OUT OF RANGE REFERENCE UNITS LAB L300.09040 0.9-1.1 High INR 1.38 Result Comment: Recommended PT INR therapeutic range for detention and prophylactic therapy is 2.0 - 3.0. For heart valve and shunt patients the range is 2.5 - 3.5. LAB L300.64582 9.5-12.0 SECONDS High 14.8 PTS Performed By: #### L300.83781 #### [facility] [address] [place] [address] PT Collected: 05/14/2018 Status: F Source: [facility] 5:57 AM [facility] REPOSITORY Order Comment: [place]: M TYPE CODE TESTS RESULT OUT OF RANGE REFERENCE UNITS LAB L300.08301 0.9-1.1 High INR 1.43 Result Comment: 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 For heart valve and shunt patients the range is 2.5 - 3.5. LAB L300.65201 9.5-12.0 SECONDS High 15.3 PTS Performed By: #### L300.59363 #### [facility] [address] [place] [address] PROG.NOTE Observed: 05/13/2018 Status: UNK Source: [facility] 1:59 PM [facility] Patient Name: VENITA SMITH [address] [facility] Date of : [address] [address] Unit Number: [id number] Progress Note-Physician Patient Status: REG RCR Attending Doctor: Colette Sloan DO Service Date: 05/13/18 1359 Subjective S: (2 ROS minimum) Covering for Dr. Palmer. Pt denies f/c. No abdominal pain. Does have pain in the sacral area which is stable. Denies any acute complaints today. Objective (ROS) Nursing Vitals 97.3 98 16 121/59 99% Physical Exam Physical Examination Notes NAD RRR RUE PICC intact. No wheezes. Breathing nonlabored. Abd soft, NT No pedal edema. Most recent wound photos reviewed in bedside chart. Diagnostic Data: Lab 24hr ([facility] 05/13/18 0513: [Embedded Image Not Available] Anion Gap 10, Est GFR ( Amer) Greater than 60, Est GFR (Non-Af Amer) Greater than 60, BUN/Creatinine Ratio 54 H, Glucose 195 H, Total Calcium 8.6, Phosphorus 2.9, Magnesium 1.8, Total Bilirubin 0.2, AST 18, ALT 13, Alkaline Phosphatase 77, Serum Total Protein 5.3 L, Albumin 1.6 L, Globulin 3.7, Albumin/Globulin Ratio 0.4 L, INR 1.50 H, PT Normal Mean Secs 16.1 H 05/13/18 0506: [Embedded Image Not Available] RBC 3.66 L, MCV 85.2, MCHC 31.1 L, RDW 17.1 H, MPV 8.7 L, Immature Gran % (Auto) 0.4, Abs Immat Gran (auto) 0.00, Seg Neutrophils % 77.4 H, Lymphocytes % 13.4 L, Monocytes % 7.9, Eosinophils % 0.6, Basophils % 0.3, Neutrophils # 7.20, Lymphocytes # 1.30, Monocytes # 0.70, Eosinophils # 0.10, Basophils # 0.00, Nucleated RBCs 0.0 Assessment and Plan Conclusion 1. Sacral decubitus ulcer, stage IV 2. Osteomyelitis 3. Complicated UTI (urinary tract infection) Currently on meropenem, minocycline, and Bactrim. Continue current therapy. psychologist antibiotics. Pt looks stable. Disclaimer This dictation was created using voice recognition software. Phonetic and/or minor grammatical errors may exist. eSign Date and Time Goldy Chen MD Verified/Reviewed by 05/13/18 1405 PT Collected: 05/13/2018 Status: F Source: [facility] 5:13 AM [facility] REPOSITORY Order Comment: [place]: M TYPE CODE TESTS RESULT OUT OF RANGE REFERENCE UNITS LAB L300.30103 0.9-1.1 High INR 1.50 Result Comment: 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 For heart valve and shunt patients the range is 2.5 - 3.5. LAB L300.56694 9.5-12.0 SECONDS High 16.1 PTS Performed By: #### L300.36399 #### [facility] [address] [place] [address] CMP Collected: 05/13/2018 Status: F Source: [facility] 5:13 AM [facility] REPOSITORY Order Comment: [place]: M TYPE CODE TESTS RESULT OUT OF RANGE REFERENCE UNITS LAB L500.38634 136-145 MMOL/L Low NA 135 LAB L500.35857 3.5-5.1 MMOL/L Normal K 4.5 LAB L500.98289 98-107 MMOL/L Normal CL 103 LAB L500.87426 21-32 MMOL/L Normal CO2 22 LAB L500.83719 5-16 MMOL/L Normal AGAP 10 LAB L500.53417 70-100 MG/DL High GLU 195 Result Comment: 70-100- Normal Fasting; 100-125 Impaired Fasting; greater than 126 on more than one result- Diabetes. ADA guidelines. Results may be falsely elevated after the administration of Sulfapyridine. Results may be falsely depressed after the administration of Sulfasalazine. LAB L500.93000 7-26 MG/DL Normal BUN 22 LAB L500.79305 0.510-0.950 MG/DL Low CREAT 0.406 Result Comment: Patients receiving either N-Acetylcysteine (NAC) or Metamizole prior to venipuncture, may have falsely depressed results. LAB L500.45107 15-24 High BUN/CREA 54 LAB L500.31043 6.0-8.5 GM/DL Low TP 5.3 LAB L500.38000 3.2-5.0 GM/DL Low ALBUMIN 1.6 LAB L500.98546 2.2-4.2 GM/DL Normal GLOBULIN 3.7 LAB L500.24230 0.8-2.0 Low A/G RATIO 0.4 LAB L500.45519 8.5-10.1 MG/DL Normal CALCIUM TOTAL 8.6 LAB L500.52243 0.2-1.0 MG/DL Normal BILI TOTAL 0.2 LAB L500.29898 8-34 U/L Normal SGOT (AST) 18 Result Comment: RESULTS MAY BE FALSELY DEPRESSED AFTER THE ADMINISTRATION OF SULFASALAZINE AND/OR SULFAPYRIDINE. LAB L500.31505 13-61 IU/L Normal SGPT (ALT) 13 Result Comment: RESULTS MAY BE FALSELY DEPRESSED AFTER THE ADMINISTRATION OF SULFASALAZINE AND/OR SULFAPYRIDINE. LAB L500.42522 45-117 U/L Normal ALK PHOS 77 Performed By: #### L500.40466, L500.59276, L500.83278, L500.94566 #### [facility] [address] [place] [address] GFR EST Collected: 05/13/2018 Status: F Source: [facility] 5:13 AM [facility] REPOSITORY Order Comment: [place]: M TYPE CODE TESTS RESULT OUT OF RANGE REFERENCE UNITS LAB L500.99262 ML/MIN Normal IF non-AFR Greater than AMER 60 LAB L500.75397 ML/MIN Normal IF Greater than AMER 60 Performed By: #### L500.69854, L500.53112, L500.61891, L500.69442 #### [facility] [address] [place] [address] PHOS Collected: 05/13/2018 Status: F Source: [facility] 5:13 AM [facility] REPOSITORY Order Comment: [place]: M TYPE CODE TESTS RESULT OUT OF RANGE REFERENCE UNITS LAB L500.92870 2.5-4.9 MG/DL Normal PHOS 2.9 Performed By: #### L500.42544, L500.58951, L500.39562, L500.56716 #### [facility] [address] [place] [address] MAGNESIUM Collected: 05/13/2018 Status: F Source: [facility] 5:13 AM [facility] [place] REPOSITORY Order Comment: [place]: M TYPE CODE TESTS RESULT OUT OF RANGE REFERENCE UNITS LAB L500.11866 1.6-2.6 MG/DL Normal MAGNESIUM 1.8 Performed By: #### L500.57226, L500.74958, L500.25998, L500.83607 #### [facility] [address] [place] [address] CBC W/DIFF Collected: 05/13/2018 Status: F Source: [facility] 5:06 AM [facility] REPOSITORY Order Comment: [place]: M TYPE CODE TESTS RESULT OUT OF RANGE REFERENCE UNITS LAB L200.72231 4.5-11.0 K/CU MM WBC Normal 9.3 LAB L200.34903 3.90-5.30 M/CU MM Low RBC 3.66 LAB L200.53807 11.5-15.5 G/DL Low HGB 9.7 LAB L200.60103 35.0-47.0 % Low HCT 31.2 LAB L200.35989 80.0-99.0 fl MCV Normal 85.2 LAB L200.81768 32.0-36.0 GM/DL Low MCHC 31.1 LAB L200.32073 11-14.5 High RDW 17.1 LAB L200.53510 9.4-12.4 Low MPV 8.7 LAB L200.40928 150-450 K/CU MM PLT Normal 294 LAB L200.72247 45-75 % High NEUTROPHILS % 77.4 LAB L200.44489 Less than 2 % IMMATURE Normal GRAN % 0.4 LAB L200.27194 20-40 % Low LYMPH % 13.4 LAB L200.95738 2-10 % MONOCYTE % Normal 7.9 LAB L200.55933 0-5 % EOSINOPHIL Normal % 0.6 LAB L200.49783 0-2 % BASOPHIL % Normal 0.3 LAB L200.17776 2.0-8.3 K/CU MM NEUTROPHIL Normal ABS 7.20 LAB L200.35357 Less than 2 K/CU MM IMMATR GRAN Normal ABS 0.00 LAB L200.27187 0.9-4.4 K/CU MM LYMPH ABS Normal 1.30 LAB L200.21821 0.1-1.1 K/CU MM MONO ABS Normal 0.70 LAB L200.40533 0-0.5 K/CU MM EOS ABS Normal 0.10 LAB L200.44315 0-0.2 K/CU MM BASO ABS Normal 0.00 LAB L200.14800 Less than 1 % NRBC Normal 0.0 Performed By: #### L200.33411 #### [facility] [address] [place] [address] PT Collected: 05/12/2018 Status: F Source: [facility] 5:45 AM [facility] REPOSITORY Order Comment: [place]: M TYPE CODE TESTS RESULT OUT OF RANGE REFERENCE UNITS LAB L300.97087 0.9-1.1 High INR 1.46 Result Comment: 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 For heart valve and shunt patients the range is 2.5 - 3.5. LAB L300.90935 9.5-12.0 SECONDS High 15.6 PTS Performed By: #### L300.31593 #### [facility] [address] [place] [address] CBC W/DIFF Collected: 05/11/2018 Status: F Source: [facility] 8:34 AM [facility] REPOSITORY Order Comment: [place]: M TYPE CODE TESTS RESULT OUT OF RANGE REFERENCE UNITS LAB L200.28314 4.5-11.0 K/CU MM WBC Normal 8.1 LAB L200.70269 3.90-5.30 M/CU MM Low RBC 3.04 LAB L200.80008 11.5-15.5 G/DL Low HGB 8.2 LAB L200.75931 35.0-47.0 % Low HCT 26.5 LAB L200.88866 80.0-99.0 fl MCV Normal 87.2 LAB L200.34609 32.0-36.0 GM/DL Low MCHC 30.9 LAB L200.21053 11-14.5 High RDW 17.5 LAB L200.25199 9.4-12.4 Low MPV 8.6 LAB L200.01792 150-450 K/CU MM PLT Normal 368 LAB L200.66998 45-75 % NEUTROPHILS Normal % 74.6 LAB L200.30621 Less than 2 % IMMATURE Normal GRAN % 0.5 LAB L200.11691 20-40 % Low LYMPH % 15.7 LAB L200.85680 2-10 % MONOCYTE % Normal 8.1 LAB L200.98518 0-5 % EOSINOPHIL Normal % 0.9 LAB L200.12174 0-2 % BASOPHIL % Normal 0.2 LAB L200.04787 2.0-8.3 K/CU MM NEUTROPHIL Normal ABS 6.10 LAB L200.11313 Less than 2 K/CU MM IMMATR GRAN Normal ABS 0.00 LAB L200.08942 0.9-4.4 K/CU MM LYMPH ABS Normal 1.30 LAB L200.76597 0.1-1.1 K/CU MM MONO ABS Normal 0.70 LAB L200.38000 0-0.5 K/CU MM EOS ABS Normal 0.10 LAB L200.20459 0-0.2 K/CU MM BASO ABS Normal 0.00 LAB L200.78240 Less than 1 % NRBC Normal 0.0 Performed By: #### L200.66009 #### [facility] [address] [place] [address] PT Collected: 05/11/2018 Status: F Source: [facility] 8:34 AM [facility] REPOSITORY Order Comment: [place]: TYPE CODE TESTS RESULT OUT OF RANGE REFERENCE UNITS LAB L300.39609 0.9-1.1 High INR 1.33 Result Comment: Recommended PT INR therapeutic range for detention and prophylactic therapy is 2.0 - 3.0. For heart valve and shunt patients the range is 2.5 - 3.5. LAB L300.73134 9.5-12.0 SECONDS High 14.2 PTS Performed By: #### L300.69732 #### [facility] [address] [place] [address] [facility] Collected: 05/11/2018 Status: F Source: [facility] 8:34 AM [facility] REPOSITORY Order Comment: [place]: M TYPE CODE TESTS RESULT OUT OF RANGE REFERENCE UNITS LAB L500.44178 136-145 MMOL/L Low NA 135 LAB L500.48115 3.5-5.1 MMOL/L Normal K 4.5 LAB L500.33804 98-107 MMOL/L Normal CL 102 LAB L500.30306 21-32 MMOL/L Normal CO2 23 LAB L500.89330 5-16 MMOL/L Normal AGAP 11 LAB L500.00578 70-100 MG/DL High GLU 286 Result Comment: 70-100- Normal Fasting; 100-125 Impaired Fasting; greater than 126 on more than one result- Diabetes. ADA guidelines. Results may be falsely elevated after the administration of Sulfapyridine. Results may be falsely depressed after the administration of Sulfasalazine. LAB L500.82949 7-26 MG/DL Normal BUN 17 LAB L500.83129 0.510-0.950 MG/DL Low CREAT 0.317 Result Comment: Patients receiving either N-Acetylcysteine (NAC) or Metamizole prior to venipuncture, may have falsely depressed results. LAB L500.35781 15-24 High BUN/CREA 54 LAB L500.88424 6.0-8.5 GM/DL Low TP 5.5 LAB L500.57580 3.2-5.0 GM/DL Low ALBUMIN 1.7 LAB L500.73348 2.2-4.2 GM/DL Normal GLOBULIN 3.8 LAB L500.55581 0.8-2.0 Low A/G RATIO 0.4 LAB L500.83618 8.5-10.1 MG/DL Low CALCIUM TOTAL 8.4 LAB L500.67451 0.2-1.0 MG/DL Normal BILI TOTAL 0.3 LAB L500.05328 8-34 U/L Normal SGOT (AST) 15 Result Comment: RESULTS MAY BE FALSELY DEPRESSED AFTER THE ADMINISTRATION OF SULFASALAZINE AND/OR SULFAPYRIDINE. LAB L500.68395 13-61 IU/L Low SGPT (ALT) 12 Result Comment: RESULTS MAY BE FALSELY DEPRESSED AFTER THE ADMINISTRATION OF SULFASALAZINE AND/OR SULFAPYRIDINE. LAB L500.74113 45-117 U/L Normal ALK PHOS 84 Performed By: #### L500.53858, L500.90234 #### [facility] [address] [place] [address] GFR EST Collected: 05/11/2018 Status: F Source: [facility] 8:34 AM [facility] REPOSITORY Order Comment: [place]: M TYPE CODE TESTS RESULT OUT OF RANGE REFERENCE UNITS LAB L500.55373 ML/MIN Normal IF non-AFR Greater than AMER 60 LAB L500.05217 ML/MIN Normal IF Greater than AMER 60 Performed By: #### L500.39419, L500.85253 #### [facility] [address] [place] [address] PT Collected: 05/10/2018 Status: F Source: [facility] 6:49 PM [facility] REPOSITORY Order Comment: [place]: M TYPE CODE TESTS RESULT OUT OF RANGE REFERENCE UNITS LAB L300.23212 0.9-1.1 High INR 1.46 Result Comment: 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 For heart valve and shunt patients the range is 2.5 - 3.5. LAB L300.51288 9.5-12.0 SECONDS High 15.6 PTS Performed By: #### L300.95710 #### [facility] [address] [place] [address] PROG.NOTE Observed: 05/10/2018 Status: UNK Source: [facility] 10:01 AM [facility] Patient Name: VENITA SMITH [address] [place] [address] Date of : [address] [address] Unit Number: [id number] Progress Note-Physician Patient Status: REG RCR Attending Doctor: Colette Sloan DO Service Date: 05/10/18 1001 Subjective S: (2 ROS minimum) Moved to [facility], feeling ok, no fever, no abd pain. Family at bedside. Objective (ROS) Physical Exam Neurological / Psychiatric Alert Respiratory Normal Breathing Effort, Clear Lungs Cardiovascular Heart RRR, No M / R / G Gastrointestinal Non Tender, No Mass Skin wound vac over sacrum Assessment and Plan Conclusion 1. Osteomyelitis CT abd/pelvis report from [facility] placed in chart along with updated cx data. Some diverticulitis but no abscess seen. Sacral cx with ESBL ecoli and MDR Acinetobacter. Surgery following for debridement. Not a candidate for diverting ostomy per gen surg. Very limited options based on cx results. No growth of MRSA. 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 Treat with meropenem for ESBL and anaerobe coverage, will use bactrim and minocycline for Acinetobacter. AcB was I to minocycline per [facility], but very limited other options. Given clinical stability, will avoid using colistin at this time. Plan on 6 week course of abx, will order picc. Discussed with wound care and family. This is a very difficult situation. Abx alone most likely cannot fix this infection, but not currently a surgical candidate for debridement or ostomy. This will put her at risk of further antibiotic resistance which means worsening infection and increased risk of toxicity from the (very limited) next line antibiotic options. Nutrition is poor, likely due to infection and multiple abx, and this makes healing of the sacrum more difficult as well as breakdown at other sites. Will continue to follow. 2. Complicated UTI (urinary tract infection) Associated with chronic allen. Updated Ucx results at [facility] showing with ESBL ecoli and CRE klebsiella pneumonia. Changed zosyn to meropenem for esbl coverage. Given dose of fosfomycin at [facility] on 05/06, will need repeat dose on 05/09 and 05/12 to complete course. Confusion resolved. Recommend changing allen if not done this admission. At [place], requested klebsiella be tested for Zerbaxa susceptibility. Will order final dose of fosfomycin while she is at [facility]. Disclaimer This dictation was created using voice recognition software. Phonetic and/or minor grammatical errors may exist. eSign Date and Time Syeda Palmer MD Verified/Reviewed by 05/10/18 1013 CBC W/DIFF Collected: 05/10/2018 Status: F Source: [facility] 4:28 AM [facility] REPOSITORY Order Comment: [place]: M TYPE CODE TESTS RESULT OUT OF RANGE REFERENCE UNITS LAB L200.16831 4.5-11.0 K/CU MM WBC Normal 9.2 LAB L200.86247 3.90-5.30 M/CU MM Low RBC 3.62 LAB L200.81541 11.5-15.5 G/DL Low HGB 9.7 LAB L200.53805 35.0-47.0 % Low HCT 30.7 LAB L200.27924 80.0-99.0 fl MCV Normal 84.8 LAB L200.87761 32.0-36.0 GM/DL Low MCHC 31.6 LAB L200.10514 11-14.5 High RDW 17.5 LAB L200.29569 9.4-12.4 Low MPV 8.4 LAB L200.56661 150-450 K/CU MM PLT Normal 340 LAB L200.03853 45-75 % High NEUTROPHILS % 79.9 LAB L200.74034 Less than 2 % IMMATURE Normal GRAN % 0.5 LAB L200.72868 20-40 % Low LYMPH % 9.6 LAB L200.36232 2-10 % MONOCYTE % Normal 9.1 LAB L200.06264 0-5 % EOSINOPHIL Normal % 0.7 LAB L200.77019 0-2 % BASOPHIL % Normal 0.2 LAB L200.73315 2.0-8.3 K/CU MM NEUTROPHIL Normal ABS 7.30 LAB L200.57037 Less than 2 K/CU MM IMMATR GRAN Normal ABS 0.10 LAB L200.85388 0.9-4.4 K/CU MM LYMPH ABS Normal 0.90 LAB L200.18496 0.1-1.1 K/CU MM MONO ABS Normal 0.80 LAB L200.43901 0-0.5 K/CU MM EOS ABS Normal 0.10 LAB L200.89349 0-0.2 K/CU MM BASO ABS Normal 0.00 LAB L200.25317 Less than 1 % NRBC Normal 0.0 Performed By: #### L200.24116 #### [facility] [place] [address] PT Collected: 05/10/2018 Status: F Source: [facility] 4:28 AM [facility] REPOSITORY Order Comment: [place]: M TYPE CODE TESTS RESULT OUT OF RANGE REFERENCE UNITS LAB L300.71456 0.9-1.1 High INR 1.50 Result Comment: 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 For heart valve and shunt patients the range is 2.5 - 3.5. LAB L300.60338 9.5-12.0 SECONDS High 16.1 PTS Performed By: #### L300.30967 #### [facility] [address] [place] [address] CMP Collected: 05/10/2018 Status: F Source: [facility] 4:28 AM [facility] REPOSITORY Order Comment: [place]: M TYPE CODE TESTS RESULT OUT OF RANGE REFERENCE UNITS LAB L500.58831 136-145 MMOL/L Normal NA 136 LAB L500.69080 3.5-5.1 MMOL/L Normal K 4.2 LAB L500.80673 98-107 MMOL/L Normal CL 101 LAB L500.08053 21-32 MMOL/L Normal CO2 24 LAB L500.19170 5-16 MMOL/L Normal AGAP 10 LAB L500.86094 70-100 MG/DL High GLU 274 Result Comment: 70-100- Normal Fasting; 100-125 Impaired Fasting; greater than 126 on more than one result- Diabetes. ADA guidelines. Results may be falsely elevated after the administration of Sulfapyridine. Results may be falsely depressed after the administration of Sulfasalazine. LAB L500.47079 7-26 MG/DL Normal BUN 11 LAB L500.14789 0.510-0.950 MG/DL Low CREAT 0.329 Result Comment: Patients receiving either N-Acetylcysteine (NAC) or Metamizole prior to venipuncture, may have falsely depressed results. LAB L500.47173 15-24 High BUN/CREA 33 LAB L500.74736 6.0-8.5 GM/DL Low TP 5.1 LAB L500.88560 3.2-5.0 GM/DL Low ALBUMIN 1.6 LAB L500.97408 2.2-4.2 GM/DL Normal GLOBULIN 3.5 LAB L500.84255 0.8-2.0 Low A/G RATIO 0.5 LAB L500.77359 8.5-10.1 MG/DL Low CALCIUM TOTAL 8.1 LAB L500.92279 0.2-1.0 MG/DL Normal BILI TOTAL 0.3 LAB L500.36640 8-34 U/L Normal SGOT (AST) 13 Result Comment: RESULTS MAY BE FALSELY DEPRESSED AFTER THE ADMINISTRATION OF SULFASALAZINE AND/OR SULFAPYRIDINE. LAB L500.31051 13-61 IU/L Normal SGPT (ALT) 13 Result Comment: RESULTS MAY BE FALSELY DEPRESSED AFTER THE ADMINISTRATION OF SULFASALAZINE AND/OR SULFAPYRIDINE. LAB L500.65075 45-117 U/L Normal ALK PHOS 88 Performed By: #### L500.00665, L500.63857, L500.65326, L500.33655 #### [facility] [address] [place] [address] GFR EST Collected: 05/10/2018 Status: F Source: [facility] 4:28 AM [facility] REPOSITORY Order Comment: [place]: M TYPE CODE TESTS RESULT OUT OF RANGE REFERENCE UNITS LAB L500.99516 ML/MIN Normal IF non-AFR Greater than AMER 60 LAB L500.70442 ML/MIN Normal IF Greater than AMER 60 Performed By: #### L500.01284, L500.72661, L500.51413, L500.87240 #### [facility] [address] [place] [address] PHOS Collected: 05/10/2018 Status: F Source: [facility] 4:28 AM [facility] REPOSITORY Order Comment: [place]: M TYPE CODE TESTS RESULT OUT OF RANGE REFERENCE UNITS LAB L500.13546 2.5-4.9 MG/DL Normal PHOS 3.0 Performed By: #### L500.64062, L500.21831, L500.40767, L500.86098 #### [facility] [address] [place] [address] MAGNESIUM Collected: 05/10/2018 Status: F Source: [facility] 4:28 AM [facility] REPOSITORY Order Comment: [place]: M TYPE CODE TESTS RESULT OUT OF RANGE REFERENCE UNITS LAB L500.69769 1.6-2.6 MG/DL Normal MAGNESIUM 1.6 Performed By: #### L500.55728, L500.98926, L500.20343, L500.39776 #### [facility] [address] [place] [address] ZINC Collected: 05/10/2018 Status: F Source: [facility] 4:28 AM [facility] REPOSITORY Order Comment: [place]: M TYPE CODE TESTS RESULT OUT OF RANGE REFERENCE UNITS LAB L550.66986 56-134 ug/dL Low ZINC 52 Result Comment: Detection Limit = 5 Performed At: [facility] [id number] Ceci Franco [place] [id number] Performed By: #### L550.21925 #### [facility] [address] [address] LTACH HP Observed: 05/09/2018 Status: UNK Source: [facility] 7:42 PM [facility] REPOSITORY CHIEF COMPLAINT: Infected extensive decubitus ulcer on the sacrum stage 4. HISTORY OF PRESENT ILLNESS: This unfortunate 67-year-old white female with a history of diabetes, coronary artery disease, chronic obstructive pulmonary disease, hypertension who had been discharged from [facility] just less than a month ago and was [facility] back to the hospital [facility] to [facility] because of a nonhealing worsening stage 4 sacral decubitus ulcer. She also had a complicated UTI. She was growing an extended spectrum beta lactamase E. coli and CRE klebsiella pneumoniae. The culture from the decubitus ulcer showed the E. coli and also multidrug resistant Acinetobacter. She was started on a number of antibiotics including meropenem, fosfomycin, Bactrim, and minocycline. Plastic surgery was consulted and a flap closure was recommended when the patient was stable and medically clear, but at the time with her nutritional status being severely poor and the active infection and recent cardiac surgery, she was a poor candidate for surgery at this time. General surgery was also consulted for a possible diverting ileostomy, but again the patient was felt to be too poor a surgical candidate at this time. Because of the need for IV antibiotics for long-term and wound VAC, she was transferred to [facility] long-term acute care hospital. PAST MEDICAL HISTORY: Includes left lower extremity hematoma, right foot osteomyelitis, left upper extremity DVT, left lower extremity cellulitis with skin breakdown, coronary artery disease status post coronary bypass graft this past February, sleep apnea, diabetes, obesity, COPD, asthma, hypertension, hyperlipidemia. FAMILY HISTORY: Colon cancer. SOCIAL HISTORY: No alcohol or drugs, but she is a former smoker. REVIEW OF SYSTEMS: As above. ALLERGIES: LISINOPRIL and METRONIDAZOLE. MEDICATIONS: Her medications on arrival here included: 1. Tylenol 650 mg every 6 hours as needed. 2. OxyIR 5 mg every 4 hours as needed. 3. Breo 200/25 one inhalation daily. 4. Coreg 6.25 mg twice daily. 5. Plavix 75 mg daily. 6. Ferrex 150 mg twice daily. 7. Folic acid 1 mg daily. 8. Lasix 40 mg daily. 9. Neurontin 600 mg 3 times a day. 10. Glipizide 20 mg daily. 11. Radames 1 pack at twice daily. 12. Lisinopril is listed, but she is also listed as ALLERGIC TO LISINOPRIL, 5 mg daily. [facility] PATIENT NAME: VENITA SMITH [facility] [address] [facility] MEDICAL REC #: [id number] [place] [address] ADMIT DATE: DISCHARGE DATE: ATTENDING PHY: Colette Sloan DO 13. Claritin 10 mg daily. 14. Melatonin 3 mg at bedtime. 15. Vitamin B12 at 1000 mcg daily. 16. Vitamin C 500 mg twice daily. 17. Coumadin 5 mg daily. 18. Remeron 7.5 mg at bedtime. 19. Dulcolax suppository 10 mg daily as needed. 20. Cepacol lozenge every 2 hours as needed for sore throat. 21. Bentyl 10 mg every 6 hours as needed for diarrhea. 22. DuoNeb inhalations every 2 hours as needed for shortness of breath. 23. Nystatin powder topically twice daily. 24. Megace 400 mg twice daily. 25. Meropenem 500 mg every 8 hours as IV. 26. Minocycline 100 mg every 12 hours IV. PHYSICAL EXAMINATION: General: Reveals an elderly white female in no acute distress. Vital Signs: Includes temperature of 97.7, pulse 98, respiratory rate 74, blood pressure 124/60, oxygen is 100% on room air. HEENT: Head is normocephalic/atraumatic. Eyes: EOMI, PERRLA, anicteric sclera. Mucous membranes are moist without lesions. Neck: No JVD, bruits, or thyromegaly. Lymphatics: None noted. Skin: Warm and dry. Back: She does have this extensive wound on her buttocks. Lungs: Clear to auscultation. Heart: Regular rate and rhythm without murmur, gallop, or rub. Abdomen: Soft, nontender, and nondistended without hepatosplenomegaly or masses. Bowel sounds are normoactive. Genitourinary: Deferred. Rectal: Deferred. Neurological: Normal and nonfocal. Extremities: No cyanosis or clubbing. She still has clean dry wraps on her lower extremity and no edema. LABORATORY DATA: Include a white count of 9.2, hemoglobin 9.7, platelets 340. Sodium 136, potassium 4.2, BUN 11, Creatinine 0.329. Glucose of 274, albumin was 1.6, INR was 1.5 today. IMPRESSION: 1. Extensive sacral decubitus ulcer, infected with extended spectrum beta lactamase Escherichia coli and multidrug resistant Acinetobacter. 2. History of complicated UTI with extended-spectrum beta- lactamase Escherichia coli and Carbapenem -resistant Enterobacteriaceae klebsiella. 3. Lower extremity wounds with osteomyelitis. 4. Coronary artery disease, status post coronary artery bypass graft. 5. Diabetes. 6. Hypertension. 7. Chronic obstructive pulmonary disease. 8. Obesity. [facility] PATIENT NAME: VENITA SMITH Annita [facility] MEDICAL REC #: [id number] [place] [address] ADMIT DATE: DISCHARGE DATE: ATTENDING YOSELINY: Colette Sloan DO 9. Deep venous thrombosis upper extremities on anticoagulation with Coumadin, subtherapeutic today. We will continue her current medications. Consults placed with plastics and infectious disease. We will continue to try to maximize her nutrition so as to help get her more likely to be considered a surgical candidate when the time comes for her to be considered for a flap and/or diverting ileostomy. Further measures depending on the patient's course and recommendations by specialists. Dimitri Smith MD /[id number] SSI File#: [id number] Verified/Reviewed by [facility] PATIENT NAME: VENITA SMITH [facility] Dr. Fa[facility]ner MEDICAL REC #: [id number] [place] [address] ADMIT DATE: DISCHARGE DATE: ATTENDING PHY: Colette Sloan DO PORTABLE CHEST Observed: 05/09/2018 Status: F Source: [facility] 7:42 PM [facility] PORTABLE CHEST Ordering Physician: Colette Sloan DO 05/10/2018 5:07 PM PORTABLE UPRIGHT CHEST: Clinical Statement: PICC line placement. Comparison: Portable upright chest 05/03/2018 at 9:05 PM. FINDINGS: Monitor leads overlie the chest. Sternal wires are again noted from previous open heart surgery. There has been interval placement of a right upper extremity PICC line with the tip projecting just below the region of the cavoatrial junction. The cardiac and mediastinal contours are stable. The thoracic aorta is tortuous and atherosclerotic. There is minimal opacity at the right lung base. There is improved aeration of the left lung base. There is slight blunting of the right costophrenic sulcus again shown. Left costophrenic sulcus appears sharp. No congestion or pneumothorax. IMPRESSION: 1. Right upper extremity PICC line tip projecting just below the region of the cavoatrial junction. 2. Mild atelectatic or infiltrative changes at the right lung base with small right pleural effusion. There is improved aeration at the left lung base compared to the previous study. A stat report was sent to the floor the time of dictation. ---- Electronic Signature on File ---- Signed By: Rupert Monique MD [email or web address] Dictated: 05/10/2018 5:33 PM Signed: 05/10/2018 5:35 PM Reported By: RUPERT MONIQUE M.D. Signed By: RUPERT MONIQUE M.D. LTACHCR Observed: 05/09/2018 Status: UNK Source: [facility] 7:42 PM [facility] REPOSITORY DATE OF CONSULTATION: 05/16/2018 CHIEF COMPLAINT: 1. Pressure ulcer, sacral area, stage 4. 2. Open wound of the left leg. 3. Coronary artery disease with coronary artery bypass graft. 4. Diabetes mellitus type 2. HISTORY OF PRESENT ILLNESS: This is a 67-year-old white female who has a history of diabetes mellitus for some time. She underwent coronary artery bypass graft at [facility] on February 15, 2018. Patient had been in the hospital for some time, later was transferred to [facility] in [place] where she was found to have some skin necrosis. Grafts were taken from the left leg as well as because of not being able to move very well, developed a pressure ulcer in the sacral area. The wound was extensively debrided by Dr. Ivory, and patient was then transferred over to [facility] at end of February 2018. She stayed in the hospital for several weeks. The sacral wound was being treated with multiple debridements as well as Wound VAC therapy. Patient also had some Wound VACs applied to the left lower leg open wounds, which were then later taken to surgery by me and secondary closed with some of the incisions, and a small area of wound was then covered with TheraSkin graft. Patient did very well with these wounds, and, at that time, since the wounds were improving, patient was then transferred back to a custodial. She returns to [facility] and was admitted because of shortness of breath and the sacral wound getting worse. After a few days, she was then transferred over to [facility] where she is residing for the present time. We ordered the Wound VAC to be reinstituted, and patient is now being followed for wound care with wound debridement therapy. The leg wound seems to be healing well. PHYSICAL EXAMINATION: General: On exertion, she is alert, somewhat sleepy this morning, was examined. Skin: The pressure ulcer in the sacral area was 12 x 12 cm in size, evidence of skin necrosis around the edges, and some black necrotic tissue was also noted at the base. Extremities: The wounds on the left leg have fairly well healed. There was a very small amount of drainage, and they are being treated with Xeroform gauze dressings at this time. The distal circulation appears to be intact. IMPRESSION: Sacral decubitus ulcer, stage 4, and open wounds of the leg. History of coronary artery bypass graft and diabetes mellitus type 2. PLAN OF TREATMENT: I would continue with the Wound VAC therapy. Once her general condition stabilizes, she may have to go to surgery for an extensive debridement of the wound with most likely a myocutaneous flap to close the defect. That depends on her medical condition and clearance from medical staff for surgery. [facility] MEDICAL REC #: [id number] [place] [address] ADMIT DATE: DISCHARGE DATE: ATTENDING PHY: Colette Sloan DO Herbert Antunez MD [id number] SSI File#: [id number] Verified/Reviewed by [facility] PATIENT NAME: VENITA SMITH Annita Faulk[facility] MEDICAL REC #: [id number] [place] [address] ADMIT DATE: DISCHARGE DATE: ATTENDING PHY: Colette Sloan DO PORTABLE CHEST Observed: 05/09/2018 Status: F Source: [facility] 7:42 PM [facility] PORTABLE CHEST Ordering Physician: Dimitri Smith MD 06/05/2018 10:29 AM CHEST PORTABLE Clinical Statement: Pain. Comparison 05/10/2018. FINDINGS: The right-sided PICC line is in unchanged position. The cardiac and mediastinal contours are stable. The pulmonary vascularity is not congested. No focal areas of consolidation. There is mild elevation of the right hemidiaphragm similar to the prior study. Right costophrenic angle blunting is improved. There are presumed loose bodies and degenerative change related to the left shoulder. IMPRESSION: No acute cardiopulmonary findings. Stable mild elevation of the right hemidiaphragm with interval improvement in small right pleural effusion. ---- Electronic Signature on File ---- Signed By: Paulie Omalley MD [email or web address] Dictated: 06/05/2018 1:26 PM Signed: 06/05/2018 1:28 PM Reported By: PAULIE OMALLEY M.D. Signed By: PAULIE OMALLEY M.D. KNEE AP AND/OR LAT Observed: 05/09/2018 Status: F Source: [facility] 1 OR 2 VW LT 7:42 PM [facility] KNEE AP &/OR LAT 1 OR 2 VW LT Ordering Physician: Colette Sloan DO 06/05/2018 7:04 PM LEFT KNEE TWO VIEWS PORTABLE: Clinical Statement: Pain Comparison: None FINDINGS: There are degenerative changes of the knee mostly involving the medial and patellofemoral compartments. There is narrowing of the compartments and osteophytosis. No joint effusion. No chondrocalcinosis or erosions. Arterial calcifications are present. IMPRESSION: Osteoarthritis mostly involving the medial and patellofemoral compartments. ---- Electronic Signature on File ---- Signed By: Elgin Elizalde MD PhD [email or web address] Dictated: 06/05/2018 9:23 PM Signed: 06/05/2018 9:24 PM Reported By: ELGIN ELIZALDE M.D. Signed By: ELGIN ELIZALDE M.D. CT ABD/PEL W/CONTRAST Observed: 05/09/2018 Status: F Source: [facility] 7:[address] [facility] [address] ABD/PEL W/CONTRAST Ordering Physician: Mert Sanon MD 06/10/2018 5:[address] THE ABDOMEN AND PELVIS WITH CONTRAST: Clinical Statement: Fistula Comparison: 05/06/2018 [facility] FINDINGS: 3.75 mm axial tomographic images were acquired through the abdomen and pelvis following the uneventful intravenous administration of 100 cc of Isovue-300 contrast. The lung bases appear emphysematous. There are no pleural or pericardial effusions. Patient has had a previous sternotomy. There is a large hiatal hernia. Similar to the previous study there is a subcapsular partially enhancing oval-shaped mass measuring 4.6 cm in greatest dimension within segment 4A of the liver. The liver demonstrates mild intrahepatic biliary dilatation. No other lesions. There is a small stone within the gallbladder. The gallbladder is otherwise normal. The spleen and adrenal glands are normal. The pancreas is atrophied with a small cyst of the mid body measuring 6 mm in dimension. The pancreatic duct is not dilated. The aorta is calcified and is mildly aneurysmal below the level of the renal arteries measuring 2.6 cm. There is symmetric renal enhancement with small left side cysts. The stomach and small bowel are normal. The appendix is resected. 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 There is air within the urinary bladder. The left wall of the urinary bladder is indistinguishable from the anterior wall of the vagina. The wall of the urinary bladder is thickened. There is an indwelling Allen catheter. No drainable fluid collections or free air are identified. There is mild presacral edema. There is a large mild stool in the rectum. IMPRESSION: There is a fistulous tract between the right wall of the sigmoid colon and the thickened left wall of the urinary bladder. The rosenthal between the posterior left side of the urinary bladder and the anterior wall of the vagina are indistinguishable. No drainable fluid collection. Mild presacral edema. Small abdominal aortic aneurysm below the renal arteries. Stable subcapsular lesion of segment 4A of the liver. Gallstone. Hiatal hernia. ---- Electronic Signature on File ---- Signed By: Elgin Elizalde MD PhD [email or web address] Dictated: 06/11/2018 10:25 AM Signed: 06/11/2018 10:36 AM Reported By: ELGIN ELIZALDE M.D. Signed By: ELGIN ELIZALDE M.D. DISCH.SUM Observed: 05/09/2018 Status: UNK Source: [facility] 6:10 PM [facility] Patient Name: VENITA [address] [place] [address] Date of : [address] [address] Unit Number: [id number] Discharge Summary Patient Status: ADM IN Attending Doctor: Frankie Snell MD Service Date: 05/09/181809 Discharge Summary Admit Date Admission Date Time: 05/06/18 170 Anticipated Discharge Date 05/09/18 Final Dx/Problem List 1. Sacral decubitus ulcer, stage IV 2. Iron deficiency anemia 3. Diabetes mellitus type 2 in obese 4. HTN (hypertension) 5. Complicated UTI (urinary tract infection) 6. CAD (coronary artery disease) 7. ELDER (obstructive sleep apnea) 8. A/P Complicated UTI 2/2 ESBL E. coli and CRE Klebsiella Sacral decubitus ulcer, stage IV, present on admission; Left heel pressure ulcer, present on admission --per ID cx with ESBL E. coli and MDR Acinetobacter DM-II Debility; weakness; Severe protein calorie malnutrition CAD s/p CABG COPD; ELDER h/o UE DVT Chief Complaint/HPI Direct admit for surgical consultation Reason for Admission Direct admit for surgical consultation Hospital Course Venita Smith is an unfortunate 67-year-old female with a past medical history significant for diabetes, ELDER, COPD, hypertension, hyperlipidemia, coronary artery disease s/p CABG in February of this year which was complicated by the development of right foot osteomyelitis and stage IV sacral decubitus ulcer. She was a direct admit from [facility] for surgical consultation regarding the stage IV sacral decubitus ulcer. She had been admitted at [place] with sepsis secondary to a complicated UTI. Infectious disease, general surgery, and plastic surgery were consulted. Infectious disease did report culture results from [place] showing ESBL E. coli and CRE Klebsiella pneumonia. Culture data from the sacral decubitus ulcer shows ESBL E. coli and MDR Acinetobacter. The patient also has a history of VRE but no signs of current infection. Her current antibiotic regimen includes meropenem, fosfomycin, Bactrim, and minocycline. She did have consultation with plastic surgery and ultimately flap closure would be recommended when patient is medically clear, at this time her active infection, nutritional status, and recent cardiac surgery make her a poor candidate for for surgical intervention at this time. She did have a consultation with general surgery for diverting ileostomy, they also felt she was a poor candidate for surgery at this time. She will need long-term IV antibiotics and wound care. Plastic surgery has ordered wound VAC for the decubitus. She will be transferred to LTAC today for additional care. Vital Signs Vital Signs (Last) Result Date Time Pulse Ox 100 05/09 1619 B/P 142/67 05/09 1619 O2 Delivery NASAL CANNULA 05/09 161 O2 Flow Rate 3L 05/09 1619 Temp 97.7 05/09 1619 Pulse 83 05/09 1619 Resp 16 05/09 1619 Pertinent Physical Findings Gen: frail, elderly, chronicaly ill appearing CV: RRR Resp: CTAB in anterior baeza Abd: soft, NT, ND Ext: pressure ulcer left heel, significant scarring right leg Skin: large 12x12 sacral decubitus ulcer, stage IV Consults General Surgery, Infectious Disease, Plastic surgery Labs/Imaging Lab 72hr (CBC/BMP Fishbone) 05/09/18 1720: Whole Bld Glucose 258 H 05/09/18 1126: Whole Bld Glucose 309 H 05/09/18 0648: Whole Bld Glucose 251 H 05/09/18 0418: [Embedded Image Not Available] Anion Gap 11, Est GFR ( Amer) Greater than 60, Est GFR (Non-Af Amer) Greater than 60, BUN/Creatinine Ratio 30 H, Glucose 244 H, Total Calcium 8.0 L, INR 1.53 H, PT Normal Mean Secs 16.4 H, RBC 3.63 L, MCV 85.4, MCHC 31.3 L, RDW 17.5 H, MPV 8.3 L, Immature Gran % (Auto) 0.4, Abs Immat Gran (auto) 0.00, Seg Neutrophils % 75.2 H, Lymphocytes % 13.4 L, Monocytes % 10.2 H, Eosinophils % 0.7, Basophils % 0.1, Neutrophils # 5.40, Lymphocytes # 1.00, Monocytes # 0.70, Eosinophils # 0.10, Basophils # 0.00, Nucleated RBCs 0.0 05/09/18 0042: Whole Bld Glucose 318 H 05/08/18 2313: Whole Bld Glucose 351 H 05/08/18 2103: Whole Bld Glucose 401 H 05/08/18 1629: Whole Bld Glucose 208 H 05/08/18 1143: Whole Bld Glucose 169 H 05/08/18 0617: Whole Bld Glucose 163 H 05/08/18 0432: [Embedded Image Not Available] INR 1.48 H, PT Normal Mean Secs 15.8 H, RBC 3.82 L, MCV 86.1, MCHC 30.7 L, RDW 17.6 H, MPV 8.1 L, Immature Gran % (Auto) 0.6, Abs Immat Gran (auto) 0.10, Seg Neutrophils % 76.3 H, Lymphocytes % 14.1 L, Monocytes % 7.7, Eosinophils % 1.0, Basophils % 0.3, Neutrophils # 6.10, Lymphocytes # 1.10, Monocytes # 0.60, Eosinophils # 0.10, Basophils # 0.00, Nucleated RBCs 0.0 05/07/18 2114: Whole Bld Glucose 162 H 05/07/18 1705: [Embedded Image Not Available] Anion Gap 9, Est GFR ( Amer) Greater than 60, Est GFR (Non-Af Amer) Greater than 60 , BUN/Creatinine Ratio 35 H, Glucose 200 H, Total Calcium 8.0 L, Iron 21 L, TIBC 116 L, Iron Saturation 18 L, Ferritin 375.6 H, RBC 3.64 L, MCV 85.4, MCHC 30.5 L, RDW 17.4 H, MPV 8.2 L, Nucleated RBCs 0.0 05/07/18 1648: Whole Bld Glucose 225 H 05/07/18 1130: Whole Bld Glucose 212 H 05/07/18 0608: Whole Bld Glucose 301 H 05/06/18 2323: Whole Bld Glucose 325 H 05/06/18 2002: Stl C.difficile Tox PCR NEGATIVE 05/06/18 1935: [Embedded Image Not Available] Anion Gap 9, Est GFR ( Amer) Greater than 60, Est GFR (Non-Af Amer) Greater than 60 , BUN/Creatinine Ratio 52 H, Glucose 293 H, Total Calcium 8.0 L, RBC 3.56 L, MCV 85.7, MCHC 30.5 L, RDW 17.4 H, MPV 8.4 L, Immature Gran % (Auto) 0.5, Abs Immat Gran (auto) 0.10 , Seg Neutrophils % 82.6 H, Lymphocytes % 8.9 L, Monocytes % 7.3, Eosinophils % 0.5, Basophils % 0.2, Neutrophils # 8.40 H, Lymphocytes # 0.90, Monocytes # 0.70, Eosinophils # 0.10, Basophils # 0.00, Nucleated RBCs 0.0 Recent Impressions (72hr) RADIOLOGY - ABDOMEN OR KUB 05/07 820 Report Impression - Status: SIGNED Entered: 05/07/2018 0859 IMPRESSION: Distended nondilated loops of small bowel and colon throughout the abdomen that may reflect a mild ileus. Enteric contrast is seen within the colon. Impression By: ALICJA KOEHLER M.D. Prescriptions Stop taking the following medications: Ciprofloxacin HCl* (Cipro 500MG Tab*) 500 MG TABLET ORAL 2 TIMES DAILY metroNIDAZOLE* (Flagyl Tab*) 500 MG TABLET ORAL EVERY 8 HOURS Continue taking these medications: Insulin Lispro* (humaLOG PEN*) 100 UNIT/1 ML INSULN.PEN 0 UNITS SUBCUTANEOUS* DAILY WITH A MEAL Instructions: ADMINISTER WITH 1ST BITE OF FOOD 151-200=5UNITS 201-250=10 251-300=14 301-350=17 351-400=20 Fluticasone/Vilanterol (Breo Ellipta 200-25 Mcg INH) 1 EACH BLST.W.DEV 1 EACH INHALATION* EVERY DAY Carvedilol* (Coreg 6.25MG Tab*) 6.25 MG TABLET 6.25 MILLIGRAM ORAL 2 TIMES DAILY Clopidogrel Bisulfate* (Plavix 75MG Tab*) 75 MG TABLET 75 MILLIGRAM ORAL EVERY DAY Iron AspglyandPs/C/B12/FA/Ca/Suc* (Ferrex 150 Forte Plus Cap*) 1 EACH CAPSULE 1 CAPSULE ORAL 2 TIMES DAILY Folic Acid* (Folvite 1MG Tab*) 1 MG TABLET 1 MILLIGRAM ORAL EVERY DAY Furosemide* (Lasix 40MG Tab*) 40 MG TABLET 40 MILLIGRAM ORAL ONCE DAILY BEFORE MEALS Gabapentin* (Neurontin Tab*) 600 MG TABLET 600 MILLIGRAM ORAL 3 TIMES DAILY glipIZIDE* (Glucotrol XL Tab*) 10 MG TAB.ER.24 20 MILLIGRAM ORAL EVERY DAY Insulin Lispro* (humaLOG PEN*) 100 UNIT/1 ML INSULN.PEN 9 UNITS SUB-Q EVERY EVENING Insulin Lispro* (humaLOG PEN*) 100 UNIT/1 ML INSULN.PEN 9 UNITS SUBCUTANEOUS* [id number] Insulin Lispro* (humaLOG PEN*) 100 UNIT/1 ML INSULN.PEN 11 UNITS SUB-Q EVERY MORNING Argin/Glut/Cahmb/Collag/Mv-Min (Radames Packet) 1 EACH POWD.PACK 1 EACH ORAL 2 TIMES DAILY Insulin Glargine,Hum.rec.anlog* (Lantus Solostar Pen*) 100 UNITS/ML INSULN.PEN 10 UNITS SUBCUTANEOUS* AT BEDTIME Lisinopril* (Prinivil 5MG Tab*) 5 MG TABLET 5 MILLIGRAM ORAL EVERY DAY Loratadine* (Claritin 10MG Tab*) 10 MG TABLET 10 MILLIGRAM ORAL ONCE DAILY BEFORE MEALS Melatonin* (Melatonin Tab*) 5 MG TABLET 3 MILLIGRAM ORAL AT BEDTIME Cyanocobalamin* (Vitamin B12 (1,000MCG) Tab*) 1,000 MCG TABLET 1,000 MICROGRAM ORAL EVERY DAY Ascorbic Acid* (Vitamin C 500MG Tab*) 500 MG CAPSULE.ER 500 MILLIGRAM ORAL TWICE A DAY BEFORE MEALS Warfarin Sodium* (Coumadin 1MG Tab*) (Unknown Strength) TABLET 5 MILLIGRAM ORAL EVERY EVENING Mirtazapine* (Remeron 15MG Tab*) 15 MG TABLET 7.5 MILLIGRAM ORAL AT BEDTIME Bisacodyl* (Dulcolax 10MG Rectal Supp*) 10 MG SUPP.RECT 10 MILLIGRAM RECTAL EVERY DAY NEEDED as needed for CONSTIPATION Benzocaine/Menth/Cetylpyrd Cl* (Cepacol Sore Throat Lozenge*) 1 EACH LOZENGE 1 LOZENGE MUCOUS MEM EVERY 2 HOURS NEEDED as needed for THROAT Dicyclomine HCl* (Bentyl Cap*) 10 MG CAPSULE 10 MILLIGRAM ORAL [id number] Ipratropium/Albuterol Sulfate* (Duoneb 0.5-3(2.5)MG/3ML Neb*) 3 ML AMPUL.NEB 3 MILLILITER INHALATION* EVERY 2 HOURS NEEDED as needed for SOB Nystatin* (Nystop 100,000U/Gm T.powder*) 60 GM POWDER 1 APPLICATION TOPICAL 2 TIMES DAILY Megestrol Acetate* (Megace Oral Susp*) 400 MG/10 ML ORAL.SUSP 400 MILLIGRAM ORAL 2 TIMES DAILY OxyCODONE* (Oxyir 5MG Tab*) 5 MG TABLET 5 MILLIGRAM ORAL EVERY 4 HOURS NEEDED as needed for PAIN Days = 7 Qty = 14 This prescription has been renewed Referrals Ordered Referrals Primary Care Provide For Providers: Gabriel Pike [address] [place] [address] Condition: Fair Disposition [facility] Acute Hosp Phys Discharge Time Incur(Min) 35 Disclaimer This dictation was created using voice recognition software. Phonetic and/or minor grammatical errors may exist. eSign Date and Time Antonia Dalal DO Verified/Reviewed by 05/09/18 1820 GLUCOSE METER Collected: 05/09/2018 Status: F Source: [facility] 5:20 PM [facility] REPOSITORY TYPE CODE TESTS RESULT OUT OF REFERENCE UNITS RANGE LAB L500.13620 85-125 MG/DL High GLUCOSE METER 258 PROG.NOTE Observed: 05/09/2018 Status: UNK Source: [facility] 12:45 PM [facility] REPOSITORY [facility] Patient Name: VENITA SMITH [facility] [place] Date of : [address] [address] Unit Number: [id number] Progress Note-Physician Patient Status: ADM IN Attending Doctor: Frankie Snell MD Service Date: 05/09/18 1245 Subjective S: (2 ROS minimum) Feeling ok, no rash, no fever, pain controlled. Objective (ROS) Nursing Vitals Vital Signs (Last) Result Date Time Pulse Ox 100 05/09 1222 B/P 132/63 05/09 1222 O2 Delivery NASAL CANNULA 05/09 122 O2 Flow Rate 3L 05/09 122 Temp 98.7 05/09 1222 Pulse 95 05/09 1222 Resp 16 05/09 1222 Physical Exam Neurological / Psychiatric Alert Respiratory Normal Breathing Effort, Clear Lungs Cardiovascular Heart RRR, No M / R / G Gastrointestinal Non Tender, No Mass Skin BLE surg sites healing. Wound vac in place. Allen in place. Assessment and Plan Conclusion 1. Complicated UTI (urinary tract infection) Associated with chronic allen. Updated Ucx results at [place] showing with ESBL ecoli and CRE klebsiella pneumonia. Changed zosyn to meropenem for esbl coverage. Given dose of fosfomycin at [place] on 05/06, will need repeat dose on 05/09 and 05/12 to complete course. Confusion resolved. Recommend changing allen if not done this admission. At [place], requested klebsiella be tested for Zerbaxa susceptibility. Spoke with pharm today and ordered dose of fosfomycin. 2. Sacral decubitus ulcer, stage IV CT abd/pelvis report from [facility] placed in chart along with updated cx data. Some diverticulitis but no abscess seen. Sacral cx with ESBL ecoli and MDR Acinetobacter. Surgery following for debridement and for diverting colostomy. Very limited options based on cx results. No growth of MRSA. 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 Treat with meropenem for ESBL and anaerobe coverage, will use bactrim and minocycline for Acinetobacter. AcB was I to minocycline per [facility], but very limited other options. Given clinical stability, will avoid using colistin at this time. Will follow. Disclaimer This dictation was created using voice recognition software. Phonetic and/or minor grammatical errors may exist. eSign Date and Time Syeda Palmer MD Verified/Reviewed by 05/09/18 1246 GLUCOSE METER Collected: 05/09/2018 Status: F Source: [facility] 11:26 AM [facility] REPOSITORY TYPE CODE TESTS RESULT OUT OF REFERENCE UNITS RANGE LAB L500.07434 85-125 MG/DL High GLUCOSE METER 309 GLUCOSE METER Collected: 05/09/2018 Status: F Source: [facility] 6:48 AM [facility] REPOSITORY TYPE CODE TESTS RESULT OUT OF REFERENCE UNITS RANGE LAB L500.30766 85-125 MG/DL High GLUCOSE METER 251 CBC W/DIFF Collected: 05/09/2018 Status: F Source: [facility] 4:18 AM [facility] REPOSITORY Order Comment: [place]: M TYPE CODE TESTS RESULT OUT OF RANGE REFERENCE UNITS LAB L200.37134 4.5-11.0 K/CU MM WBC Normal 7.2 LAB L200.19498 3.90-5.30 M/CU MM Low RBC 3.63 LAB L200.85626 11.5-15.5 G/DL Low HGB 9.7 LAB L200.64608 35.0-47.0 % Low HCT 31.0 LAB L200.62468 80.0-99.0 fl MCV Normal 85.4 LAB L200.66822 32.0-36.0 GM/DL Low MCHC 31.3 LAB L200.30465 11-14.5 High RDW 17.5 LAB L200.35818 9.4-12.4 Low MPV 8.3 LAB L200.05211 150-450 K/CU MM PLT Normal 350 LAB L200.57754 45-75 % High NEUTROPHILS % 75.2 LAB L200.34728 Less than 2 % IMMATURE Normal GRAN % 0.4 LAB L200.48051 20-40 % Low LYMPH % 13.4 LAB L200.89618 2-10 % High MONOCYTE % 10.2 LAB L200.68347 0-5 % EOSINOPHIL Normal % 0.7 LAB L200.01296 0-2 % BASOPHIL % Normal 0.1 LAB L200.91334 2.0-8.3 K/CU MM NEUTROPHIL Normal ABS 5.40 LAB L200.65822 Less than 2 K/CU MM IMMATR GRAN Normal ABS 0.00 LAB L200.51139 0.9-4.4 K/CU MM LYMPH ABS Normal 1.00 LAB L200.43000 0.1-1.1 K/CU MM MONO ABS Normal 0.70 LAB L200.04235 0-0.5 K/CU MM EOS ABS Normal 0.10 LAB L200.10378 0-0.2 K/CU MM BASO ABS Normal 0.00 LAB L200.19861 Less than 1 % NRBC Normal 0.0 Performed By: #### L200.46667 #### [facility] [address] [place] [address] PT Collected: 05/09/2018 Status: F Source: [facility] 4:18 AM [facility] REPOSITORY Order Comment: [place]: M TYPE CODE TESTS RESULT OUT OF RANGE REFERENCE UNITS LAB L300.79478 0.9-1.1 High INR 1.53 Result Comment: Recommended PT INR therapeutic range for detention and prophylactic therapy is 2.0 - 3.0. For heart valve and shunt patients the range is 2.5 - 3.5. LAB L300.85865 9.5-12.0 SECONDS High 16.4 PTS Performed By: #### L300.29262 #### [facility] [address] [place] [address] BMP Collected: 05/09/2018 Status: F Source: [facility] 4:18 AM [facility] REPOSITORY Order Comment: [place]: M TYPE CODE TESTS RESULT OUT OF RANGE REFERENCE UNITS LAB L500.08158 136-145 MMOL/L Normal NA 138 LAB L500.70947 3.5-5.1 MMOL/L Normal K 4.2 LAB L500.80232 98-107 MMOL/L Normal CL 104 LAB L500.50192 21-32 MMOL/L Normal CO2 23 LAB L500.08083 5-16 MMOL/L Normal AGAP 11 LAB L500.33090 70-100 MG/DL High GLU 244 Result Comment: 70-100- Normal Fasting; 100-125 Impaired Fasting; greater than 126 on more than one result- Diabetes. ADA guidelines. Results may be falsely elevated after the administration of Sulfapyridine. Results may be falsely depressed after the administration of Sulfasalazine. LAB L500.44844 7-26 MG/DL Normal BUN 10 LAB L500.32744 0.510-0.950 MG/DL Low CREAT 0.328 Result Comment: Patients receiving either N-Acetylcysteine (NAC) or Metamizole prior to venipuncture, may have falsely depressed results. LAB L500.13272 15-24 BUN/CREA High 30 LAB L500.95872 8.5-10.1 MG/DL Low CALCIUM TOTAL 8.0 Performed By: #### L500.17933, L500.48399 #### [facility] [place] [address] GFR EST Collected: 05/09/2018 Status: F Source: [facility] 4:18 AM [facility] REPOSITORY Order Comment: [place]: TYPE CODE TESTS RESULT OUT OF RANGE REFERENCE UNITS LAB L500.09617 ML/MIN Normal IF non-AFR Greater than AMER 60 LAB L500.67632 ML/MIN Normal IF Greater than AMER 60 Performed By: #### L500.48222, L500.59437 #### [facility] [address] [place] [address] GLUCOSE METER Collected: 05/09/2018 Status: F Source: [facility] 12:42 AM [facility] REPOSITORY TYPE CODE TESTS RESULT OUT OF REFERENCE UNITS RANGE LAB L500.13852 85-125 MG/DL High GLUCOSE METER 318 GLUCOSE METER Collected: 05/08/2018 Status: F Source: [facility] 11:13 PM [facility] REPOSITORY TYPE CODE TESTS RESULT OUT OF REFERENCE UNITS RANGE LAB L500.27544 85-125 MG/DL High GLUCOSE METER 351 GLUCOSE METER Collected: 05/08/2018 Status: F Source: [facility] 9:03 PM [facility] REPOSITORY TYPE CODE TESTS RESULT OUT OF REFERENCE UNITS RANGE LAB L500.15399 85-125 MG/DL High GLUCOSE METER 401 PROG IMS Observed: 05/08/2018 Status: UNK Source: [facility] 6:16 PM [facility] REPOSITORY [facility] Patient Name: VENITA SMITH [employer] Date of : [address] [address] Unit Number: [id number] Progress Note-Hospitalist Patient Status: ADM IN Attending Doctor: Frankie Snell MD Service Date: 05/08/181815 Chief Complaint Chief Complaint direct admit from [place] for complicated sacral decubitus wound infection Subjective S: (2 ROS minimum) Patient seen and examined at bedside, pain currently controlled, seen with wound care nurse, sacral decub reviewed, patient denies any chest pain or pressure, no shortness of breath, still no appetite, did not touch tray but did drink ensure Objective (ROS) Nursing Vitals Vital Signs (Last) Result Date Time Pulse Ox 100 05/08 1539 B/P 118/62 05/08 1539 O2 Delivery NASAL CANNULA 05/08 153 O2 Flow Rate 3 05/08 1539 Temp 98.7 05/08 1539 Pulse 88 05/08 1539 Resp 16 05/08 1539 General Appearance frail, chronically ill appearing Physical Exam Neurological / Psychiatric Alert, Orientation X1, Orientation X2, Orientation X3, Affect Normal HEENT No Trauma, PERRL Respiratory Normal Breathing Effort, Clear Lungs Cardiovascular Heart RRR, No M / R / G Gastrointestinal Normal Bowel Sounds, Non Tender Skin sacral decub assessed with wound care, 12x12 cm,stage IV pressure ulcer left heel Diagnostic Data: Lab 24hr (CBC/BMP [facility]) 05/08/18 1629: Whole Bld Glucose 208 H 05/08/18 1143: Whole Bld Glucose 169 H 05/08/18 0617: Whole Bld Glucose 163 H 05/08/18 0432: [Embedded Image Not Available] INR 1.48 H, PT Normal Mean Secs 15.8 H, RBC 3.82 L, MCV 86.1, MCHC 30.7 L, RDW 17.6 H, MPV 8.1 L, Immature Gran % (Auto) 0.6, Abs Immat Gran (auto) 0.10, Seg Neutrophils % 76.3 H, Lymphocytes % 14.1 L, Monocytes % 7.7, Eosinophils % 1.0, Basophils % 0.3, Neutrophils # 6.10, Lymphocytes # 1.10, Monocytes # 0.60, Eosinophils # 0.10, Basophils # 0.00, Nucleated RBCs 0.0 05/07/18 2114: Whole Bld Glucose 162 H Assessment and Plan Conclusion 1. Sacral decubitus ulcer, stage IV 2. Iron deficiency anemia 3. Diabetes mellitus type 2 in obese 4. HTN (hypertension) 5. Complicated UTI (urinary tract infection) 6. CAD (coronary artery disease) 7. ELDER (obstructive sleep apnea) 8. A/P Complicated UTI 2/2 ESBL E. coli and CRE Klebsiella --appreciate ID consult --will place patient in isolation --abx per ID --follow labs Sacral decubitus ulcer, stage IV, present on admission; Left heel pressure ulcer, present on admission --per ID cx with ESBL E. coli and MDR Acinetobacter --appreciate ID and gen surg consults --appreciate Plastics consult, they will place wound vac --clinitron bed --limited options at this time for surgery, patient will need treatment for infection, further rehab from CABG --LTACH consult placed DM-II --cont home medications --CCHO diet Debility; weakness; Severe protein calorie malnutrition --PT/OT --ensure QID CAD s/p CABG --cont home meds COPD; ELDER --duonebs scheduled and PRN h/o UE DVT --check INR in the a.m. --will resume coumadin Ongoing Disclaimer This dictation was created using voice recognition software. Phonetic and/or minor grammatical errors may exist. eSign Date and Time Antonia Dalal DO Verified/Reviewed by 05/08/18 1822 GLUCOSE METER Collected: 05/08/2018 Status: F Source: [facility] 4:29 PM [facility] REPOSITORY TYPE CODE TESTS RESULT OUT OF REFERENCE UNITS RANGE LAB L500.51319 85-125 MG/DL High GLUCOSE METER 208 PROG.NOTE Observed: 05/08/2018 Status: UNK Source: [facility] 4:19 PM [facility] Patient Name: VENITA SMITH [facility] Date of : [address] [address] Unit Number: [id number] Progress Note-Physician Patient Status: ADM IN Attending Doctor: Frankie Snell MD Service Date: 05/08/18 1619 Subjective S: (2 ROS minimum) Feeling pretty good, no fever, no n/v. No rash with abx. Objective (ROS) Nursing Vitals Vital Signs (Last) Result Date Time Pulse Ox 100 05/08 1539 B/P 118/62 05/08 1539 O2 Delivery NASAL CANNULA 05/08 153 O2 Flow Rate 3 05/08 1539 Temp 98.7 05/08 1539 Pulse 88 05/08 1539 Resp 16 05/08 1539 Physical Exam Neurological / Psychiatric Alert Respiratory Normal Breathing Effort, Clear Lungs Cardiovascular Heart RRR, No M / R / G Gastrointestinal Non Tender, No Mass Skin sacral ulcer Assessment and Plan Conclusion 1. Complicated UTI (urinary tract infection) Associated with chronic allen. Updated Ucx results at [place] showing with ESBL ecoli and CRE klebsiella pneumonia. Changed zosyn to meropenem for esbl coverage. Given dose of fosfomycin at [place] on 05/06, will need repeat dose on 05/09 and 05/12 to complete course. Confusion resolved. Recommend changing allen if not done this admission. Spoke with micro lab at [place] and requested klebsiella be tested for Zerbaxa susceptibility. 2. Sacral decubitus ulcer, stage IV CT abd/pelvis report from [facility] placed in chart along with updated cx data. Some diverticulitis but no abscess seen. Sacral cx with ESBL ecoli and MDR Acinetobacter. Surgery following for debridement and for diverting colostomy. Very limited options based on cx results. No growth of MRSA. 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 Treat with meropenem for ESBL and anaerobe coverage, will use bactrim and minocycline for Acinetobacter. AcB was I to minocycline per [place] micro lab, but very limited other options. Given clinical stability, will avoid using colistin at this time. Will follow. Disclaimer This dictation was created using voice recognition software. Phonetic and/or minor grammatical errors may exist. eSign Date and Time Syeda Palmer MD Verified/Reviewed by 05/08/18 1624 GLUCOSE METER Collected: 05/08/2018 Status: F Source: [facility] 11:43 AM [facility] REPOSITORY TYPE CODE TESTS RESULT OUT OF REFERENCE UNITS RANGE LAB L500.16901 85-125 MG/DL High GLUCOSE METER 169 GLUCOSE METER Collected: 05/08/2018 Status: F Source: [facility] 6:17 AM [facility] REPOSITORY TYPE CODE TESTS RESULT OUT OF REFERENCE UNITS RANGE LAB L500.75772 85-125 MG/DL High GLUCOSE METER 163 PT Collected: 05/08/2018 Status: F Source: [facility] 4:32 AM [facility] REPOSITORY Order Comment: [place]: M TYPE CODE TESTS RESULT OUT OF RANGE REFERENCE UNITS LAB L300.90339 0.9-1.1 High INR 1.48 Result Comment: Recommended PT INR therapeutic range for detention and prophylactic therapy is 2.0 - 3.0. For heart valve and shunt patients the range is 2.5 - 3.5. LAB L300.10792 9.5-12.0 SECONDS High 15.8 PTS Performed By: #### L300.20362 #### [facility] [address] [place] [address] CBC W/DIFF Collected: 05/08/2018 Status: F Source: [facility] 4:32 AM [facility] REPOSITORY Order Comment: [place]: M TYPE CODE TESTS RESULT OUT OF RANGE REFERENCE UNITS LAB L200.91442 4.5-11.0 K/CU MM WBC Normal 7.9 LAB L200.26714 3.90-5.30 M/CU MM Low RBC 3.82 LAB L200.92040 11.5-15.5 G/DL Low HGB 10.1 LAB L200.03734 35.0-47.0 % Low HCT 32.9 LAB L200.14423 80.0-99.0 fl MCV Normal 86.1 LAB L200.80899 32.0-36.0 GM/DL Low MCHC 30.7 LAB L200.55672 11-14.5 High RDW 17.6 LAB L200.31857 9.4-12.4 Low MPV 8.1 LAB L200.51671 150-450 K/CU MM PLT Normal 359 LAB L200.10199 45-75 % High NEUTROPHILS % 76.3 LAB L200.16262 Less than 2 % IMMATURE Normal GRAN % 0.6 LAB L200.49021 20-40 % Low LYMPH % 14.1 LAB L200.70395 2-10 % MONOCYTE % Normal 7.7 LAB L200.38826 0-5 % EOSINOPHIL Normal % 1.0 LAB L200.23964 0-2 % BASOPHIL % Normal 0.3 LAB L200.86029 2.0-8.3 K/CU MM NEUTROPHIL Normal ABS 6.10 LAB L200.78512 Less than 2 K/CU MM IMMATR GRAN Normal ABS 0.10 LAB L200.95640 0.9-4.4 K/CU MM LYMPH ABS Normal 1.10 LAB L200.46721 0.1-1.1 K/CU MM MONO ABS Normal 0.60 LAB L200.17282 0-0.5 K/CU MM EOS ABS Normal 0.10 LAB L200.47385 0-0.2 K/CU MM BASO ABS Normal 0.00 LAB L200.14817 Less than 1 % NRBC Normal 0.0 Performed By: #### L200.84099 #### [facility] [address] [place] [address] GLUCOSE METER Collected: 05/07/2018 Status: F Source: [facility] 9:14 PM [facility] REPOSITORY TYPE CODE TESTS RESULT OUT OF REFERENCE UNITS RANGE LAB L500.56682 85-125 MG/DL High GLUCOSE METER 162 Observed: 05/07/2018 Status: F Source: [facility] WOUND CULTURE 6:32 PM [facility] REPOSITORY Order Comment: [place]: RESULTS CALLED TO AND READ BACK BY STANISLAV WOLFF 6M AT 104605/10/18 BY KIMBERLY DAVIS. THE PATIENT NEEDS TO BE PUT IN ISOLATION RESULTS CALLED TO AND READ BACK BY STANISLAV WOLFF 6M AT 104605/10/18 BY KIMBERLY DAVIS. THE PATIENT NEEDS TO BE PUT IN ISOLATION RESULTS CALLED TO AND READ BACK BY STANISLAV WOLFF 6M AT 104605/10/18 BY KIMBERLY DAVIS. THE PATIENT NEEDS TO BE PUT IN ISOLATION THIS BACTERIAL ISOLATE HAS BEEN CONFIRMED TO BE AN ESBL CONSUMER INSIGHT ANALYST ESBL EXTENDED SPECTRUM BETA-LACTAMASE R* RESISTANCE DUE TO EXTENDED SPECTRUM BETA-LACTAMASE (ESBL) RESULTS CALLED TO AND READ BACK BY STANISLAV W[place]FF 6M [place] 10405/10/18 BY KIMBERLY DAVIS. THE PATIENT NEEDS TO BE PUT IN ISOLATION THIS BACTERIAL ISOLATE HAS BEEN CONFIRMED TO BE AN ESBL CONSUMER INSIGHT ANALYST ESBL EXTENDED SPECTRUM BETA-LACTAMASE R* RESISTANCE DUE TO EXTENDED SPECTRUM BETA-LACTAMASE (ESBL) THIS BACTERIAL ISOLATE HAS BEEN DETERMINED TO BE A POSSIBLE CRE BY CDC DEFINITION CRE: CARBAPENEN RESISTANT ENTEROBACTERIACEAE SENT TO [facility] FOR CONFIRMATION THIS BACTERIAL ISOLATE HAS BEEN CONFIRMED TO BE AN ESBL CONSUMER INSIGHT ANALYST ESBL EXTENDED SPECTRUM BETA-LACTAMASE R* RESISTANCE DUE TO EXTENDED SPECTRUM BETA-LACTAMASE (ESBL) CRITICAL VALUE(S) VERIFIED AND CALLED TO AND READ BACK BY Mihaela GOMES AT 102305/13/18 BY DELVIS MALLOY RESULTS CALLED TO AND READ BACK BY STANISLAV WOLFF 6M AT 104605/10/18 BY KIMBERLY DAVIS. THE PATIENT NEEDS TO BE PUT IN ISOLATION THIS BACTERIAL ISOLATE HAS BEEN CONFIRMED TO BE AN ESBL CONSUMER INSIGHT ANALYST ESBL EXTENDED SPECTRUM BETA-LACTAMASE R* RESISTANCE DUE TO EXTENDED SPECTRUM BETA-LACTAMASE (ESBL) THIS BACTERIAL ISOLATE HAS BEEN DETERMINED TO BE A POSSIBLE CRE BY CDC DEFINITION CRE: CARBAPENEN RESISTANT ENTEROBACTERIACEAE SENT TO [facility] FOR CONFIRMATION THIS BACTERIAL ISOLATE HAS BEEN CONFIRMED TO BE AN ESBL CONSUMER INSIGHT ANALYST ESBL EXTENDED SPECTRUM BETA-LACTAMASE R* RESISTANCE DUE TO EXTENDED SPECTRUM BETA-LACTAMASE (ESBL) CRITICAL VALUE(S) VERIFIED AND CALLED TO AND READ BACK BY Mihaela GOMES AT 102305/13/18 BY DELVIS MALLOY CONFIRMED BY [facility] RESULTS CALLED TO AND READ BACK BY STANISLAV WOLFF 6M AT 10405/10/18 BY KIMBERLY DAVIS. THE PATIENT NEEDS TO BE PUT IN ISOLATION THIS BACTERIAL ISOLATE HAS BEEN CONFIRMED TO BE AN ESBL CONSUMER INSIGHT ANALYST ESBL EXTENDED SPECTRUM BETA-LACTAMASE R* RESISTANCE DUE TO EXTENDED SPECTRUM BETA-LACTAMASE (ESBL) THIS BACTERIAL ISOLATE HAS BEEN DETERMINED TO BE A POSSIBLE CRE BY CDC DEFINITION CRE: CARBAPENEN RESISTANT ENTEROBACTERIACEAE SENT TO [facility] FOR CONFIRMATION THIS BACTERIAL ISOLATE HAS BEEN CONFIRMED TO BE AN ESBL CONSUMER INSIGHT ANALYST ESBL EXTENDED SPECTRUM BETA-LACTAMASE R* RESISTANCE DUE TO EXTENDED SPECTRUM BETA-LACTAMASE (ESBL) CRITICAL VALUE(S) VERIFIED AND CALLED TO AND READ BACK BY Mihaela GOMES AT 1024 05/13/18 BY DELVIS MALLOY CONFIRMED BY [facility] RESULTS CALLED TO AND READ BACK BY STANISLAV WOLFF 6M AT 10405/10/18 BY DAVIS,KIMBERLY K. THE PATIENT NEEDS TO BE PUT IN ISOLATION THIS BACTERIAL ISOLATE HAS BEEN CONFIRMED TO BE AN ESBL CONSUMER INSIGHT ANALYST ESBL EXTENDED SPECTRUM BETA-LACTAMASE R* RESISTANCE DUE TO EXTENDED SPECTRUM BETA-LACTAMASE (ESBL) THIS BACTERIAL ISOLATE HAS BEEN DETERMINED TO BE A POSSIBLE CRE BY CDC DEFINITION CRE: CARBAPENEN RESISTANT ENTEROBACTERIACEAE SENT TO [facility] FOR CONFIRMATION [facility] GENE DETECTED BY [facility] THIS BACTERIAL ISOLATE HAS BEEN CONFIRMED TO BE AN ESBL CONSUMER INSIGHT ANALYST ESBL EXTENDED SPECTRUM BETA-LACTAMASE R* RESISTANCE DUE TO EXTENDED SPECTRUM BETA-LACTAMASE (ESBL) CRITICAL VALUE(S) VERIFIED AND CALLED TO AND READ BACK BY Mihaela SHAH/Efraín AT 1024 05/13/18 BY DELVIS MALLOY CONFIRMED BY [facility] GRAM STAIN RARE WBC'S RARE GRAM POSITIVE COCCI RARE GRAM NEGATIVE BACILLUS ADDITION OF ESBL CHARGE CONFIRMATION OF [facility] BY [facility] * This is a corrected result. * A prior result that was reported as final has been changed. * This is a corrected result. * A prior result that was reported as final has been changed. ORGANISM 1: ESCHERICHIA COLI QUANTITATION MANY ESCHERICHIA COLI: REACTION AMPICILLIN >16 R* AMP/SULBACTAM (UNASYN) <8/4 S AUGMENTIN (AMOX/K CLVULANATE) <8/4 S CEFAZOLIN >16 R* CEFEPIME <4 R* CEFOTAXIME >32 ESBL CEFUROXIME >16 R* CIPROFLOXACIN >4 R GENTAMICIN <4 S IMIPENEM <1 S ERTAPENEM <2 S PIPERACILLIN/TAZOBACTAM <16 S TETRACYCLINE <4 S TOBRAMYCIN <4 S TRIMETH/SULFA >2/38 R LEVOFLOXACIN >4 R MEROPENEM <1 S MOXIFLOXACIN >4 R ORGANISM 2: ACINETOBACTER BAUMANNII/HAEMOL QUANTITATION MANY ACINETOBACTER BAUMANNII/HAEMOL: REACTION AMP/SULBACTAM (UNASYN) 16/8 I CEFEPIME >16 R CEFOTAXIME 16 I CIPROFLOXACIN >4 R GENTAMICIN <4 S TETRACYCLINE >8 R TOBRAMYCIN <4 S TRIMETH/SULFA <2/38 S LEVOFLOXACIN >4 R MEROPENEM >8 R ORGANISM 3: KLEBSIELLA PNEUMONIAE QUANTITATION MANY CRE POSITIVE KLEBSIELLA PNEUMONIAE: REACTION AMIKACIN 32 I AMPICILLIN >16 R* AMP/SULBACTAM (UNASYN) >16/8 R AUGMENTIN (AMOX/K CLVULANATE) >16/8 R CEFAZOLIN >16 R* CEFEPIME >16 R* CEFOTAXIME >32 ESBL CEFUROXIME >16 R* CIPROFLOXACIN >4 R GENTAMICIN <4 S IMIPENEM >8 R ERTAPENEM >4 R PIPERACILLIN/TAZOBACTAM >64 R TETRACYCLINE <4 S TOBRAMYCIN >8 R TRIMETH/SULFA >2/38 R LEVOFLOXACIN >4 R MEROPENEM >8 R MOXIFLOXACIN >4 R Performed By: #### M100.54310 #### [facility] [address] [place] [address] PROG IMS Observed: 05/07/2018 Status: UNK Source: [facility] 5:14 PM CENTER [facility] Patient Name: VENITA SMITH [address] [place] [address] Date of : [address] [address] Unit Number: [id number] Progress Note-Hospitalist Patient Status: ADM IN Attending Doctor: Frankie Snell MD Service Date: 05/07/18 1714 Chief Complaint Chief Complaint direct admit from [facility] for complicated sacral decubitus wound infection Subjective S: (2 ROS minimum) Patient seen and examined at bedside, is alert and oriented, doesn't she does have pain on her bottom, no chest pain or pressure, no shortness of breath, appetite is okay, does like supplements Objective (ROS) Nursing Vitals Vital Signs (Last) Result Date Time Pulse Ox 98 05/07 1531 B/P 107/64 05/07 1531 O2 Delivery NASAL CANNULA 05/07 1531 O2 Flow Rate 2L 05/07 1531 Temp 99.1 05/07 1531 Pulse 88 05/07 1531 Resp 16 05/07 1531 General Appearance Frail, chronically ill-appearing Physical Exam Neurological / Psychiatric Alert, Orientation X1, Orientation X2, Orientation X3, Depressed Respiratory Normal Breathing Effort, Clear Lungs Cardiovascular Heart RRR, No M / R / G Gastrointestinal Normal Bowel Sounds, Non Tender Skin Warm / Dry Diagnostic Data: Lab 24hr (CBC/BMP [facility]) 05/07/18 1705: Sodium Pending, Potassium Pending, Chloride Pending, Carbon Dioxide Pending, Anion Gap Pending, BUN Pending, Creatinine Pending, BUN/Creatinine Ratio Pending, Glucose Pending, Total Calcium Pending, WBC Pending, RBC Pending, Hgb Pending, Hct Pending, MCV Pending, MCHC Pending, RDW Pending, Plt Count Pending 05/07/18 1648: Whole Bld Glucose 225 H 05/07/18 1130: Whole Bld Glucose 212 H 05/07/18 0608: Whole Bld Glucose 301 H 05/06/18 2323: Whole Bld Glucose 325 H 05/06/18 2002: Stl C.difficile Tox PCR NEGATIVE 05/06/18 1935: [Embedded Image Not Available] Anion Gap 9, Est GFR ( Amer) Greater than 60, Est GFR (Non-Af Amer) Greater than 60 , BUN/Creatinine Ratio 52 H, Glucose 293 H, Total Calcium 8.0 L, RBC 3.56 L, MCV 85.7, MCHC 30.5 L, RDW 17.4 H, MPV 8.4 L, Immature Gran % (Auto) 0.5, Abs Immat Gran (auto) 0.10 , Seg Neutrophils % 82.6 H, Lymphocytes % 8.9 L, Monocytes % 7.3, Eosinophils % 0.5, Basophils % 0.2, Neutrophils # 8.40 H, Lymphocytes # 0.90, Monocytes # 0.70, Eosinophils # 0.10, Basophils # 0.00, Nucleated RBCs 0.0 Assessment and Plan Conclusion 1. Sacral decubitus ulcer, stage IV 2. Iron deficiency anemia 3. Diabetes mellitus type 2 in obese 4. HTN (hypertension) 5. Complicated UTI (urinary tract infection) 6. CAD (coronary artery disease) 7. ELDER (obstructive sleep apnea) 8. A/P Complicated UTI 2/2 ESBL E. coli and MDR Serratia --appreciate ID consult --will place patient in isolation --abx changed to meropenem by ID --follow labs Sacral decubitus ulcer, stage IV, present on admission --per ID cx with ESBL E. coli and MDR Acinetobacter --appreciated ID and gen surg consults --will await plastics consult --clinitron bed DM-II --cont home medications --CCHO diet Debility; weakness; Severe protein calorie malnutrition --PT/OT --ensure QID CAD s/p CABG --cont home meds COPD; ELDER --duonebs scheduled and PRN h/o UE DVT --check INR in the a.m. --coumadin on hold Ongoing Disclaimer This dictation was created using voice recognition software. Phonetic and/or minor grammatical errors may exist. eSign Date and Time Antonia Dalal DO Verified/Reviewed by 05/07/18 2987 CBC Collected: 05/07/2018 Status: F Source: [facility] 5:05 PM [facility] REPOSITORY Order Comment: [place]: M TYPE CODE TESTS RESULT OUT OF RANGE REFERENCE UNITS LAB L200.56371 4.5-11.0 K/CU MM Normal WBC 8.8 LAB L200.90680 3.90-5.30 M/CU MM Low RBC 3.64 LAB L200.30028 11.5-15.5 G/DL Low HGB 9.5 LAB L200.07780 35.0-47.0 % Low HCT 31.1 LAB L200.15153 80.0-99.0 fl Normal MCV 85.4 LAB L200.17218 32.0-36.0 GM/DL Low MCHC 30.5 LAB L200.95639 11-14.5 High RDW 17.4 LAB L200.80511 9.4-12.4 Low MPV 8.2 LAB L200.10566 150-450 K/CU MM Normal PLT 333 LAB L200.12220 Less than 1 % Normal NRBC 0.0 Performed By: #### L200.13503 #### [facility] [address] [place] [address] BMP Collected: 05/07/2018 Status: F Source: [facility] 5:05 PM [facility] REPOSITORY Order Comment: [place]: M TYPE CODE TESTS RESULT OUT OF RANGE REFERENCE UNITS LAB L500.46969 136-145 MMOL/L Normal NA 136 LAB L500.85727 3.5-5.1 MMOL/L Normal K 4.3 LAB L500.91742 98-107 MMOL/L Normal CL 105 LAB L500.87265 21-32 MMOL/L Normal CO2 22 LAB L500.45573 5-16 MMOL/L Normal AGAP 9 LAB L500.54175 70-100 MG/DL High GLU 200 Result Comment: 70-100- Normal Fasting; 100-125 Impaired Fasting; greater than 126 on more than one result- Diabetes. ADA guidelines. Results may be falsely elevated after the administration of Sulfapyridine. Results may be falsely depressed after the administration of Sulfasalazine. LAB L500.54966 7-26 MG/DL Normal BUN 10 LAB L500.46462 0.510-0.950 MG/DL Low CREAT 0.287 Result Comment: Patients receiving either N-Acetylcysteine (NAC) or Metamizole prior to venipuncture, may have falsely depressed results. LAB L500.08287 15-24 BUN/CREA High 35 LAB L500.87854 8.5-10.1 MG/DL Low CALCIUM TOTAL 8.0 Performed By: #### L500.21064, L500.90357, L500.00529, L500.69597 #### [facility] [place] [address] GFR EST Collected: 05/07/2018 Status: F Source: [facility] 5:05 PM [facility] REPOSITORY Order Comment: [place]: TYPE CODE TESTS RESULT OUT OF RANGE REFERENCE UNITS LAB L500.55546 ML/MIN Normal IF non-AFR Greater than AMER 60 LAB L500.83007 ML/MIN Normal IF Greater than AMER 60 Performed By: #### L500.15988, L500.52102, L500.10141, L500.71102 #### [facility] [place] [address] IRON PANEL Collected: 05/07/2018 Status: F Source: [facility] 5:05 PM [facility] REPOSITORY Order Comment: [place]: TYPE CODE TESTS RESULT OUT OF RANGE REFERENCE UNITS LAB L500.86573 50-170 UG/DL Low IRON 21 Result Comment: Patients treated with metal-binding drugs (e.g.deferoxamine) may have depressed iron values, as chelated iron may not properly react in the Siemens iron assay. LAB L500.82994 221-481 UG/DL Low TIBC 116 LAB L500.69546 22-44 % Low IRON SAT 18 Performed By: #### L500.68933, L500.41029, L500.09844, L500.24914 #### [facility] [address] [place] [address] FERR Collected: 05/07/2018 Status: F Source: [facility] 5:05 PM [facility] REPOSITORY Order Comment: [place]: M TYPE CODE TESTS RESULT OUT OF RANGE REFERENCE UNITS LAB L500.40964 8.0-307.0 NG/ML High FERR 375.6 Performed By: #### L500.86119, L500.22337, L500.87545, L500.84168 #### [facility] [address] [place] [address] GLUCOSE METER Collected: 05/07/2018 Status: F Source: [facility] 4:48 PM [facility] TYPE CODE TESTS RESULT OUT OF REFERENCE UNITS RANGE LAB L500.75488 85-125 MG/DL High GLUCOSE METER 225 HP.IMS.CON Observed: 05/07/2018 Status: UNK Source: [facility] 11:44 AM [facility] Patient Name: VENITA SMITH [address] [place] [address] Date of : [address] [address] Unit Number: [id number] CONSULTATION-HandP Patient Status: ADM IN Attending Doctor: Frankie Snell MD Service Date: 05/07/18 1144 See Addendum History of Present Illness Referring Physician Frankie Snell MD Reason for Consult osteo History of Present Illness 67 y/o F with long recent hospital course. Initially presented with [facility] with R foot infection, transferred to [facility] for CABG. Treated for R foot CoNS and aspergillus osteo, then developed LLE infection at CABG site requiring debridement and wound vac placement. Also with sacral infected stage 4 ulcer with surg cx (+) esbl ecoli and bacteroides. Completed course of vori 04/01. Completed course of meropenem. Skin graft placed on LLE after treated for AcB infection. Sacral area debrided 04/18/18. 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 Discharged from [facility] to [facility] on po abx. Returned to [facility] after acute onset of confusion 05/04. Cxs sent, started on vanc/zosyn, changed to meropenem and given dose of fosfomycin 05/06. Now transferred to [facility]. Feeling better, no fever, no abd pain. Full ROS performed and neg except as noted above. Past Medical/Surgical Hx Past Medical History reviewed Family/Social History Family History FATHER, , Age 60+; Cause: Acute Crohn's disease. MOTHER, , Age 60+; Cause: Old age. FH: diabetic complications, Onset: 60+. BROTHER, Age 60+. FH: diabetic complications, Onset: 60+. BROTHER FHx: diabetic complications, Onset: 40-50. Allergies/Home Medications Allergies Coded Allergies: METRONIDAZOLE (From FLAGYL) (Mild, 05/06/18) Home Medications Argin/Glut/Cahmb/Collag/Mv-Min (Radames Packet) 1 EACH POWD.PACK 1 EACH PO BID, Ref 0 ( Reported) Entered as Reported by SARANYA MURILLO on 04/04/18 1147 Last Action: Held on 05/07/18 0128 by WENDI SANDERS Ascorbic Acid* (Vitamin C 500MG Tab*) 500 MG CAPSULE.ER 500 MG PO BIDAC, Ref 0 ( Reported) Entered as Reported by SARANYA MURILLO on 04/04/18 1152 Last Action: Continued on 05/07/18 0124 by WENDI SANDERS Benzocaine/Menth/Cetylpyrd Cl* (Cepacol Sore Throat Lozenge*) 1 EACH LOZENGE 1 JONY MM Q2HPRN PRN THROAT, Ref 0 (Reported) Entered as Reported by SARANYA MURILLO on 04/04/18 1154 Last Action: Held on 05/07/18 0127 by WENDI SANDERS Bisacodyl* (Dulcolax 10MG Rectal Supp*) 10 MG SUPP.RECT 10 MG RC QDAYPRN PRN CONSTIPATION, Ref 0 (Reported) Entered as Reported by SARANYA MURILLO on 04/04/18 1154 Last Action: Held on 05/07/18 012 by WENDI SANDERS Carvedilol* (Coreg 6.25MG Tab*) 6.25 MG TABLET 6.25 MG PO BID, Ref 0 (Reported) Entered as Reported by SARANYA MURILLO on 04/04/18 1140 Last Action: Continued on 05/07/18 012 by WENDI SANDERS Ciprofloxacin HCl* (Cipro 500MG Tab*) 500 MG TABLET 500 MG PO BID, Ref 0 (Reported) Entered as Reported by SARANYA MURILLO on 04/04/18 1141 Last Action: Held on 05/07/18 012 by WENDI SANDERS Clopidogrel Bisulfate* (Plavix 75MG Tab*) 75 MG TABLET 75 MG PO QDAY, Ref 0 (Reported) Entered as Reported by SARANYA MURILLO on 04/04/18 1141 Last Action: Continued on 05/07/18 012 by WENDI SANDERS Cyanocobalamin* (Vitamin B12 (1,000MCG) Tab*) 1,000 MCG TABLET 1,000 MCG PO QDAY, Ref 0 (Reported) Entered as Reported by SARANYA MURILLO on 04/04/18 1151 Last Action: Continued on 05/07/18 012 by WENDI SANDERS Dicyclomine HCl* (Bentyl Cap*) 10 MG CAPSULE 10 MG PO [id number], Ref 0 (Reported) Entered as Reported by SARANYA MURILLO on 04/04/18 1155 Last Action: Continued on 05/07/18 012 by WENDI SANDERS Fluticasone/Vilanterol (Breo Ellipta 200-25 Mcg INH) 1 EACH BLST.W.DEV 1 EACH INH QDAY, Ref 0 (Reported) Entered as Reported by SARANYA MURILLO on 04/04/18 1140 Last Action: Continued on 05/07/18 012 by WENDI SANDERS Folic Acid* (Folvite 1MG Tab*) 1 MG TABLET 1 MG PO QDAY, Ref 0 (Reported) Entered as Reported by SARANYA MURILLO on 04/04/18 1143 Last Action: Continued on 05/07/18 012 by WENDI SANDERS Furosemide* (Lasix 40MG Tab*) 40 MG TABLET 40 MG PO QDAYAC, Ref 0 (Reported) Entered as Reported by SARANYA MURILLO on 04/04/18 1143 Last Action: Continued on 05/07/18126 by WENDI SANDERS Gabapentin* (Neurontin Tab*) 600 MG TABLET 600 MG PO TID, Ref 0 (Reported) Entered as Reported by SARANYA MURILLO on 04/04/18 1144 Last Action: Held on 05/07/18127 by WENDI SANDERS glipIZIDE* (Glucotrol XL Tab*) 10 MG TAB.ER.24 20 MG PO QDAY, Ref 0 (Reported) Entered as Reported by SARANYA MURILLO on 04/04/18 114 Last Action: Held on 05/07/18124 by WENDI SANDERS Insulin Glargine,Hum.rec.anlog* (Lantus Solostar Pen*) 100 UNITS/ML INSULN.PEN 10 UNITS SC QHS, Ref 0 (Reported) Entered as Reported by SARANYA MURILLO on 04/04/18 114 Last Action: Continued on 05/07/18124 by WENDI SANDERS Insulin Lispro* (humaLOG PEN*) 100 UNIT/1 ML INSULN.PEN 0 UNITS SC QDAYWM, Ref 0 ( Reported) ADMINISTER WITH 1ST BITE OF FOOD 151-200=5UNITS 201-250=10 251-300=14 301-350=17 351-400=20 Entered as Reported by SARANYA MURILLO on 04/04/18 1140 Last Action: Continued on 05/07/18125 by WENDI SANDERS Insulin Lispro* (humaLOG PEN*) 100 UNIT/1 ML INSULN.PEN 9 UNITS SQ QPM, Ref 0 (Reported ) Entered as Reported by SARANYA MURILLO on 04/04/18 1145 Last Action: Continued on 05/07/18 012 by WENDI SANDERS Insulin Lispro* (humaLOG PEN*) 100 UNIT/1 ML INSULN.PEN 9 UNITS SC [id number], Ref 0 ( Reported) Entered as Reported by SARANYA MURILLO on 04/04/18 1146 Last Action: Continued on 05/07/18 012 by WENDI SANDERS Insulin Lispro* (humaLOG PEN*) 100 UNIT/1 ML INSULN.PEN 11 UNITS SQ QAM, Ref 0 ( Reported) Entered as Reported by SARANYA MURILLO on 04/04/18 1146 Last Action: Continued on 05/07/18 012 by WENDI SANDERS Ipratropium/Albuterol Sulfate* (Duoneb 0.5-3(2.5)MG/3ML Neb*) 3 ML AMPUL.NEB 3 ML INH Q2HPRN PRN SOB, Ref 0 (Reported) Entered as Reported by SARANYA MURILLO on 04/04/18 1157 Last Action: Held on 05/07/18 012 by WENDI SANDERS Iron AspglyandPs/C/B12/FA/Ca/Suc* (Ferrex 150 Forte Plus Cap*) 1 EACH CAPSULE 1 CAP PO BID , Ref 0 (Reported) Entered as Reported by SARANYA MURILLO on 04/04/18 114 Last Action: Held on 05/07/18 012 by WENDI SANDERS Lisinopril* (Prinivil 5MG Tab*) 5 MG TABLET 5 MG PO QDAY, Ref 0 (Reported) Entered as Reported by SARANYA MURILLO on 04/04/18 114 Last Action: Continued on 05/07/18 012 by WENDI SANDERS Loratadine* (Claritin 10MG Tab*) 10 MG TABLET 10 MG PO QDAYAC, Ref 0 (Reported) Entered as Reported by SARANYA MURILLO on 04/04/18 114 Last Action: Continued on 05/07/18 012 by WENDI SANDERS Megestrol Acetate* (Megace Oral Susp*) 400 MG/10 ML ORAL.SUSP 400 MG PO BID, Ref 0 ( Reported) Entered as Reported by ARIANNA BURNS on 05/06/182251 Last Action: Continued on 05/07/18 012 by WENDI SANDERS Melatonin* (Melatonin Tab*) 5 MG TABLET 3 MG PO QHS, Ref 0 (Reported) Entered as Reported by SARANYA MURILLO on 04/04/18 114 Last Action: Held on 05/07/18 012 by WENDI SANDERS metroNIDAZOLE* (Flagyl Tab*) 500 MG TABLET 500 MG PO Q8H, Ref 0 (Reported) Entered as Reported by ARIANNA BURNS on 05/06/182252 Last Action: Held on 05/07/18 012 by WENDI SANDERS Mirtazapine* (Remeron 15MG Tab*) 15 MG TABLET 7.5 MG PO QHS, Ref 0 (Reported) Entered as Reported by SARANYA MURILLO on 04/04/18 115 Last Action: Continued on 05/07/18127 by WENDI SANDERS Nystatin* (Nystop 100,000U/Gm T.powder*) 60 GM POWDER 1 APPL TP BID, Ref 0 (Reported) Entered as Reported by ARIANNA BURNS on 05/06/182250 Last Action: Continued on 05/07/18123 by WENDI SANDERS OxyCODONE* (Oxyir 5MG Tab*) 5 MG TABLET 5 MG PO Q4HPRN PRN PAIN, Ref 0 (Reported) Entered as Reported by ARIANNA BURNS on 05/06/182234 Last Action: Held on 05/07/18127 by WENDI SANDERS Warfarin Sodium* (Coumadin 1MG Tab*) (Unknown Strength) TABLET 5 MG PO QPM, Ref 0 ( Reported) Entered as Reported by SARANYA MURILLO on 04/04/181152 Last Action: Reviewed on 05/06/182229 by ARIANNA BURNS Discontinued Medications Aspirin* (Aspir 81 MG Tab*) 81 MG TABLET.DR 81 MG PO QDAYWM, Ref 0 (Reported) Discontinued reason: Pt Stopped - No Order Last Action: Discontinued on 05/06/182230 by ARIANNA BURNS Dextrose 50 % in Water* (Dextrose 50%-Water Syringe*) 50 ML DISP.SYRIN 50 ML IV PRN PRN LBS, Ref 0 (Reported) Discontinued reason: Pt Stopped - No Order Last Action: Discontinued on 05/06/182235 by ARIANNA BURNS Doxycycline Hyclate 100 MG CAPSULE 100 MG PO BID, Ref 0 (Reported) Discontinued reason: Pt Stopped - No Order Last Action: Discontinued on 05/06/182223 by ARIANNA BURNS Glucagon* (Glucagon 1MG Vial*) 1 MG/VIAL VIAL 1 MG IM PRN PRN LBS, Ref 0 (Reported) Discontinued reason: Pt Stopped - No Order Last Action: Discontinued on 05/06/182241 by ARIANNA BURNS Ibuprofen* (Motrin 400MG Tab*) 400 MG TABLET 800 MG PO E1OCELK PRN PAIN, Ref 0 ( Reported) Discontinued reason: Pt Stopped - No Order Last Action: Discontinued on 05/06/182232 by ARIANNA BURNS Lidocaine 4 %* (Rohini-Max 4% Topical Cream*) 5 GM CREAM..G. 1 APPL TP QDAY, Ref 0 ( Reported) Discontinued reason: Pt Stopped - No Order Last Action: Discontinued on 05/06/182244 by ARIANNA BURNS Meropenem (Merrem) 500 MG VIAL 500 MG IV Q6HR, Ref 0 (Reported) Discontinued reason: Pt Stopped - No Order Last Action: Discontinued on 05/06/182223 by ARIANNA BURNS Multivits,Ca,Minerals/Iron/FA (Thera-M Tablet) 1 EACH TABLET 1 EACH PO QDAY, Ref 0 ( Reported) Discontinued reason: Pt Stopped - No Order Last Action: Discontinued on 05/06/182249 by ARIANNA BURNS oxyCODONE HCL* (Oxycontin 10MG Sr Tab*) 10 MG TAB.SR.12H 5 MG PO E7WOAFY PAIN, Ref 0 ( Reported) Discontinued reason: Pt Stopped - No Order Last Action: Discontinued on 05/06/182235 by ARIANNA BURNS Pantoprazole* (Protonix 40MG Tab*) 40 MG TABLET.DR 40 MG PO QDAYAC, Ref 0 (Reported) Discontinued reason: Pt Stopped - No Order Last Action: Discontinued on 05/06/182239 by ARIANNA BURNS Polyethylene Glycol 3350* (Miralax Packet*) 17 GM POWD.PACK 17 GM PO QDAY, Ref 0 ( Reported) In at least 8 oz water or juice. Discontinued reason: Pt Stopped - No Order Last Action: Discontinued on 05/06/182239 by ARIANNA BURNS Sennosides/Docusate Sodium* (Senna-S Tab*) 1 EACH TABLET 1 TAB PO BID, Ref 0 (Reported) Discontinued reason: Pt Stopped - No Order Last Action: Discontinued on 05/06/182240 by ARIANNA BURNS Physical Exam Vital Signs Vital Signs (Last) Result Date Time Pulse Ox 97 08/21 0848 B/P 137/78 05/07 848 O2 Delivery NASAL CANNULA 05/07 848 O2 Flow Rate 1 05/07 848 Temp 98.9 05/07 848 Pulse 99 05/07 848 Resp 30 05/07 848 Appearance - PE Appears well, Awake, Alert, No distress Neck - PE Normal inspection, No lymphadenopathy HEENT - PE Head atraumatic, Eyes normal inspection, PERRLA, Mucosa moist Respiratory - PE Lungs sound clear, Respirations non-labored Cardiovascular - PE Rate WNL, Rhythm regular Neurological - PE Alert, Oriented x 3, No motor deficit Adbomen - PE Bowel sounds present, Abdomen soft, Non-tender, No distension Extremity - PE No pedal edema Skin - PE Color normal (Reviewed recent photo sacrum), RLE and LLE incisions well healed. Conclusion / Plan Conclusion 1. Complicated UTI (urinary tract infection) Associated with chronic allen. Ucx at [facility] with ESBL ecoli and MDR serratia. Change zosyn to meropenem for esbl coverage. Given dose of fosfomycin at [facility] on 05/06, will likely need repeat doses. Confusion resolved. 2. Sacral decubitus ulcer, stage IV CT abd/pelvis report from [facility] placed in chart along with updated cx data. Some diverticulitis but no abscess seen. Sacral cx with ESBL ecoli and MDR Acinetobacter. Will repeat cxs here. Surgery following for debridement and for diverting colostomy. Very limited options based on cx results. No growth of MRSA. 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 Will stop vanc. Treat with meropenem for ESBL and anaerobe coverage, will use bactrim and minocycline for Acinetobacter. Will follow, thank you. ADDENDUM: SYEDA PALMER on 05/08/18 at 1619 Correction, urine grew ESBL ecoli and MDR klebsiella. Disclaimer This dictation was created using voice recognition software. Phonetic and/or minor grammatical errors may exist. eSign Date and Time Syeda Palmer MD Verified/Reviewed by 05/08/18 1619 GLUCOSE METER Collected: 05/07/2018 Status: F [facility]POS[facility] TYPE CODE TESTS RESULT OUT OF REFERENCE UNITS RANGE LAB L500.84625 85-125 MG/DL High GLUCOSE METER 212 GLUCOSE METER Collected: 05/07/2018 Status: F Source: [facility] 6:08 AM [facility] REPOSITORY TYPE CODE TESTS RESULT OUT OF REFERENCE UNITS RANGE LAB L500.91508 85-125 MG/DL High GLUCOSE METER 301 GLUCOSE METER Collected: 05/06/2018 Status: F Source: [facility] 11:23 PM [facility] REPOSITORY TYPE CODE TESTS RESULT OUT OF REFERENCE UNITS RANGE LAB L500.53160 85-125 MG/DL High GLUCOSE METER 325 CDIF PCR Collected: 05/06/2018 Status: F Source: [facility] 8:02 PM [facility] REPOSITORY Order Comment: [place]: M TYPE CODE TESTS RESULT OUT OF RANGE REFERENCE UNITS LAB L770.78235 NEGATIVE Normal CDIF NEGATIVE PCR Performed By: #### L770.82636 #### [facility] [address] [place] [address] HP.IMS.ADM Observed: 05/06/2018 Status: UNK Source: [facility] 7:44 PM [facility] Patient Name: VENITA SMITH [address] [facility] Date of : [address] [address] Unit Number: [id number] Admission-HandP Patient Status: ADM IN Attending Doctor: Frankie Snell MD Service Date: 05/06/181943 History of Present Illness Chief Complaint/Present Illness: Transfer from [facility] History of Present Illness Patient is 67-year-old white female, patient had history of CAD and CABG was done 2 months ago at [facility], after that surgery was complicated with infection in the sites were the venous graft were harvested, patient gradually became debilitated and she was transferred to [facility] in [place]. Patient states there are several weeks then she was discharged to custodial after that she was discharged back to the hospital at [facility] because of sepsis picture. Patient had decub ulcers and also indwelling Allen catheter and debility and able to ambulate. Patient case was called to me today for transferred to our hospital because the need of debridement by plastic surgeon and that service is not available at this time according to the hospitalist who took care of her at [facility], the care was rendered for this hospital by the nurse practitioner and Dr. osorio never seen the patient. Patient case was accepted after discussing the case with Dr. Melissa luevano who evaluated the patient before when she was at [facility]. Patient was seen and examined in the floor, she did not have any fever chills nausea vomiting or diarrhea no chest pain or shortness breath. Past Medical/Surgical Hx Past Medical History Left lower extremity hematoma Sacral decubitus ulcer Right foot osteomyelitis CAD Left upper extremity DVT Obesity Diabetes Sleep apnea COPD Allergic rhinitis Asthma Hypertension Hyperlipidemia Past Surgical History CABG - patient says this was done on 02/15/18 [facility]D left lower extremity hematoma Family/Social History Family Hx Other/Comment Mother had colon cancer Substances Denies use of: Alcohol, Tobacco (Former smoker), Recreational Drugs. Advance Directives Advance Directives Full Code Allergies/Home Medications Allergies Coded Allergies: LISINOPRIL (Mild, 05/06/18) METRONIDAZOLE (From FLAGYL) (Mild, 05/06/18) Home Medications Argin/Glut/Cahmb/Collag/Mv-Min (Radames Packet) 1 EACH POWD.PACK 1 EACH PO BID, Ref 0 ( Reported) Entered as Reported by SARANYA MURILLO on 04/04/18 1147 Last Action: No Recorded Action Ascorbic Acid* (Vitamin C 500MG Tab*) 500 MG CAPSULE.ER 500 MG PO QDAY, Ref 0 (Reported ) Entered as Reported by SARANYA MURILLO on 04/04/18 1152 Last Action: No Recorded Action Aspirin* (Aspir 81 MG Tab*) 81 MG TABLET.DR 81 MG PO QDAYWM, Ref 0 (Reported) Entered as Reported by SARANYA MURILLO on 04/04/18 1140 Last Action: No Recorded Action Benzocaine/Menth/Cetylpyrd Cl* (Cepacol Sore Throat Lozenge*) 1 EACH LOZENGE 1 JONY MM Q2HPRN PRN THROAT, Ref 0 (Reported) Entered as Reported by SARANYA MURILLO on 04/04/18 1154 Last Action: No Recorded Action Bisacodyl* (Dulcolax 10MG Rectal Supp*) 10 MG SUPP.RECT 10 MG RC QDAYPRN PRN CONSTIPATION, Ref 0 (Reported) Entered as Reported by SARANYA MURILLO on 04/04/18 1154 Last Action: No Recorded Action Carvedilol* (Coreg 6.25MG Tab*) 6.25 MG TABLET 6.25 MG PO BID, Ref 0 (Reported) Entered as Reported by SARANYA MURILLO on 04/04/18 1140 Last Action: No Recorded Action Ciprofloxacin HCl* (Cipro 500MG Tab*) 500 MG TABLET 500 MG PO BID, Ref 0 (Reported) Entered as Reported by SARANYA MURILLO on 04/04/18 1141 Last Action: No Recorded Action Clopidogrel Bisulfate* (Plavix 75MG Tab*) 75 MG TABLET 75 MG PO QDAY, Ref 0 (Reported) Entered as Reported by SARANYA MURILLO on 04/04/18 114 Last Action: No Recorded Action Cyanocobalamin* (Vitamin B12 (1,000MCG) Tab*) 1,000 MCG TABLET 1,000 MCG PO QDAY, Ref 0 (Reported) Entered as Reported by SARANYA MURILLO on 04/04/18 115 Last Action: No Recorded Action Dextrose 50 % in Water* (Dextrose 50%-Water Syringe*) 50 ML DISP.SYRIN 50 ML IV PRN PRN LBS, Ref 0 (Reported) Entered as Reported by SARANYA MURILLO on 04/04/18 115 Last Action: No Recorded Action Dicyclomine HCl* (Bentyl Cap*) 10 MG CAPSULE 10 MG PO [id number], Ref 0 (Reported) Entered as Reported by SARANYA MURILLO on 04/04/18 115 Last Action: No Recorded Action Doxycycline Hyclate 100 MG CAPSULE 100 MG PO BID, Ref 0 (Reported) Entered as Reported by SARANYA MURILLO on 04/04/18 114 Last Action: No Recorded Action Fluticasone/Vilanterol (Breo Ellipta 200-25 Mcg INH) 1 EACH BLST.W.DEV 1 EACH INH QDAY, Ref 0 (Reported) Entered as Reported by SARANYA MURILLO on 04/04/18 1140 Last Action: No Recorded Action Folic Acid* (Folvite 1MG Tab*) 1 MG TABLET 1 MG PO QDAY, Ref 0 (Reported) Entered as Reported by SARANYA MURILLO on 04/04/18 114 Last Action: No Recorded Action Furosemide* (Lasix 40MG Tab*) 40 MG TABLET 40 MG PO QDAYAC, Ref 0 (Reported) Entered as Reported by SARANYA MURILLO on 04/04/18 114 Last Action: No Recorded Action Gabapentin* (Neurontin Tab*) 600 MG TABLET 600 MG PO TID, Ref 0 (Reported) Entered as Reported by SARANYA MURILLO on 04/04/18 1144 Last Action: No Recorded Action glipIZIDE* (Glucotrol XL Tab*) 10 MG TAB.ER.24 20 MG PO QDAY, Ref 0 (Reported) Entered as Reported by SARANYA MURILLO on 04/04/18 1144 Last Action: No Recorded Action Glucagon* (Glucagon 1MG Vial*) 1 MG/VIAL VIAL 1 MG IM PRN PRN LBS, Ref 0 (Reported) Entered as Reported by SARANYA MURILLO on 04/04/18 1156 Last Action: No Recorded Action Ibuprofen* (Motrin 400MG Tab*) 400 MG TABLET 800 MG PO A6OIBUA PRN PAIN, Ref 0 ( Reported) Entered as Reported by SARANYA MURILLO on 04/04/18 1156 Last Action: No Recorded Action Insulin Glargine,Hum.rec.anlog* (Lantus Solostar Pen*) 100 UNITS/ML INSULN.PEN 10 UNITS SC QHS, Ref 0 (Reported) Entered as Reported by SARANYA MURILLO on 04/04/18 1147 Last Action: No Recorded Action Insulin Lispro* (humaLOG PEN*) 100 UNIT/1 ML INSULN.PEN 0 UNITS SC QDAYWM, Ref 0 ( Reported) ADMINISTER WITH 1ST BITE OF FOOD 151-200=5UNITS 201-250=10 251-300=14 301-350=17 351-400=20 Entered as Reported by SARANYA MURILLO on 04/04/18 1140 Last Action: No Recorded Action Insulin Lispro* (humaLOG PEN*) 100 UNIT/1 ML INSULN.PEN 9 UNITS SQ QPM, Ref 0 (Reported ) Entered as Reported by SARANYA MURILLO on 04/04/18 1145 Last Action: No Recorded Action Insulin Lispro* (humaLOG PEN*) 100 UNIT/1 ML INSULN.PEN 9 UNITS SC [id number], Ref 0 ( Reported) Entered as Reported by SARANYA MURILLO on 04/04/18 1146 Last Action: No Recorded Action Insulin Lispro* (humaLOG PEN*) 100 UNIT/1 ML INSULN.PEN 11 UNITS SQ QAM, Ref 0 ( Reported) Entered as Reported by SARANYA MURILLO on 04/04/18 1146 Last Action: No Recorded Action Ipratropium/Albuterol Sulfate* (Duoneb 0.5-3(2.5)MG/3ML Neb*) 3 ML AMPUL.NEB 3 ML INH Q2HPRN PRN SOB, Ref 0 (Reported) Entered as Reported by SARANYA MURILLO on 04/04/18 1157 Last Action: No Recorded Action Iron AspglyandPs/C/B12/FA/Ca/Suc* (Ferrex 150 Forte Plus Cap*) 1 EACH CAPSULE 1 CAP PO BID , Ref 0 (Reported) Entered as Reported by SARANYA MURILLO on 04/04/18 1143 Last Action: No Recorded Action Lidocaine 4 %* (Rohini-Max 4% Topical Cream*) 5 GM CREAM..G. 1 APPL TP QDAY, Ref 0 ( Reported) Entered as Reported by SARANYA MURILLO on 04/04/18 1141 Last Action: No Recorded Action Lisinopril* (Prinivil 5MG Tab*) 5 MG TABLET 5 MG PO QDAY, Ref 0 (Reported) Entered as Reported by SARANYA MURILLO on 04/04/18 1147 Last Action: No Recorded Action Loratadine* (Claritin 10MG Tab*) 10 MG TABLET 10 MG PO QDAYAC, Ref 0 (Reported) Entered as Reported by SARANYA MURILLO on 04/04/18 1148 Last Action: No Recorded Action Melatonin* (Melatonin Tab*) 5 MG TABLET 3 MG PO QHS, Ref 0 (Reported) Entered as Reported by SARANYA MURILLO on 04/04/18 1148 Last Action: No Recorded Action Meropenem (Merrem) 500 MG VIAL 500 MG IV Q6HR, Ref 0 (Reported) Entered as Reported by SARANYA MURILLO on 04/04/18 1149 Last Action: No Recorded Action Mirtazapine* (Remeron 15MG Tab*) 15 MG TABLET 7.5 MG PO QHS, Ref 0 (Reported) Entered as Reported by SARANYA MURILLO on 04/04/18 1153 Last Action: No Recorded Action Multivits,Ca,Minerals/Iron/FA (Thera-M Tablet) 1 EACH TABLET 1 EACH PO QDAY, Ref 0 ( Reported) Entered as Reported by SARANYA MURILLO on 04/04/18 1151 Last Action: No Recorded Action oxyCODONE HCL* (Oxycontin 10MG Sr Tab*) 10 MG TAB.SR.12H 5 MG PO F0OQTBE PAIN, Ref 0 ( Reported) Entered as Reported by SARANYA MURILLO on 04/04/18 1158 Last Action: No Recorded Action Pantoprazole* (Protonix 40MG Tab*) 40 MG TABLET.DR 40 MG PO QDAYAC, Ref 0 (Reported) Entered as Reported by SARANYA MURILLO on 04/04/18 115 Last Action: No Recorded Action Polyethylene Glycol 3350* (Miralax Packet*) 17 GM POWD.PACK 17 GM PO QDAY, Ref 0 ( Reported) In at least 8 oz water or juice. Entered as Reported by SARANYA MURILLO on 04/04/18 115 Last Action: No Recorded Action Sennosides/Docusate Sodium* (Senna-S Tab*) 1 EACH TABLET 1 TAB PO BID, Ref 0 (Reported) Entered as Reported by SARANYA MURILLO on 04/04/18 115 Last Action: No Recorded Action Warfarin Sodium* (Coumadin 1MG Tab*) (Unknown Strength) TABLET (Unknown Dose) PO QPM, Ref 0 (Reported) HOLD FOR SURGERY PER DR BRUCE SMITH AWARE OF OR AND THAT SHE IS OFF FOR OR Entered as Reported by SARANYA MURILLO on 04/04/18 115 Last Action: No Recorded Action Review of Systems ROS: Other General: Denies fever, chills, night sweats, weight loss, anorexia complaint of generalized debility. Lungs: Denies cough, sputum production, shortness of breath, dyspnea on exertion. Cardiac: Denies angina, palpitations. Abdomen: Denies pain, nausea, vomiting, melena, hematochezia, hematemesis. Genitourinary: Denies dysuria, urgency, frequency. Extremities: Denies swelling cyanosis. Musculoskeletal: Denies current joint pain or tenderness. Neurologic: Denies focal numbness, weakness, tingling. Lymphatic: Denies adenopathy. Hematologic: Denies easy bruising and/or hemorrhage. Skin: Positive for decubitus ulcers Psychiatric: Denies suicidal or homicidal ideation. Physical Exam Vital Signs Vital Signs (Last) Result Date Time Pulse Ox 96 05/06 1934 B/P 133/78 05/06 1934 Temp 98.1 05/06 1934 Pulse 101 05/06 1934 Resp 18 05/06 1934 Physical Exam: General: Patient is alert and oriented x3 and is in no acute respiratory distress. HEENT no eye congestion no ear discharge. Neck is supple no JVD. Lungs: Anteriorly clear to auscultation, no wheezing, rales, or rhonchi. Cardiac: S1-S2 with normal limits Abdomen: Soft, nontender, nondistended multiple ecchymosis from heparin injections. Allen catheter in place Extremities: No cyanosis multiple skin tears in upper extremities, left lower extremity skin tear, multiple healing wounds at the site where the venous grafts were harvested. Skin: Patient had stage IV decub ulcer in the sacral area measured 10 x 10 cm with multiple necrotic tissues and foul smell Neurologic: Cranial nerves from II-XII intact grossly. Psych normal affect. Lymphatic system, no submandibular or anterior cervical lymphadenopathy. Laboratory Tests 05/06 1935 Chemistry Sodium Pending Potassium Pending Chloride Pending Carbon Dioxide Pending Anion Gap Pending BUN Pending Creatinine Pending BUN/Creatinine Ratio Pending Glucose Pending Total Calcium Pending Hematology WBC (4.5 - 11.0 K/CU MM) 10.2 RBC (3.90 - 5.30 M/CU MM) 3.56 L Hgb (11.5 - 15.5 G/DL) 9.3 L Hct (35.0 - 47.0 %) 30.5 L MCV (80.0 - 99.0 fl) 85.7 MCHC (32.0 - 36.0 GM/DL) 30.5 L RDW (11 - 14.5) 17.4 H Plt Count (150 - 450 K/CU MM) 344 MPV (9.4 - 12.4) 8.4 L Immature Gran % (Auto) (Less than 2 %) 0.5 Abs Immat Gran (auto) (Less than 2 K/CU MM) 0.10 Seg Neutrophils % (45 - 75 %) 82.6 H Lymphocytes % (20 - 40 %) 8.9 L Monocytes % (2 - 10 %) 7.3 Eosinophils % (0 - 5 %) 0.5 Basophils % (0 - 2 %) 0.2 Neutrophils # (2.0 - 8.3 K/CU MM) 8.40 H Lymphocytes # (0.9 - 4.4 K/CU MM) 0.90 Monocytes # (0.1 - 1.1 K/CU MM) 0.70 Eosinophils # (0 - 0.5 K/CU MM) 0.10 Basophils # (0 - 0.2 K/CU MM) 0.00 Nucleated RBCs (Less than 1 %) 0.0 Conclusion / Plan Conclusion 1. Decubital ulcer 2. Sacral decubitus ulcer, stage IV Organism 1 ACINETOBACTER BAUMANNII/HAEMOL QUANTITATION FEW Organism 2 STAPHYLOCOCCUS EPIDERMIDIS QUANTITATION FEW Organism 3 ENTEROCOCCUS DURANS/HIRAE QUANTITATION RARE vre 3. Foot osteomyelitis, right 4. Hematoma of left lower extremity 5. Iron deficiency anemia 6. Diabetes mellitus type 2 in obese 7. HTN (hypertension) 8. A/P *Patient will be on IV Zosyn and vancomycin, infection disease was consulted, obtain cultures, check C. difficile since patient has loose stool, consult general surgery for possible need of colostomy to defer the bowels movement from the wound contamination. *Consult wound care, consult plastic surgeon Dr. HERBERT Torres for debridement, I spoke with Dr. Flores in the phone today regarding this patient and he will see her as a consult. *Monitor glucosecontinue Accu-Chek sliding scale *Continue chronic home medications monitor vital signs Expected Stay More than 2 days Disclaimer This dictation was created using voice recognition software. Phonetic and/or minor grammatical errors may exist. eSign Date and Time Frankie Snell MD Verified/Reviewed by 05/08/18 1822 CBC W/DIFF Collected: 05/06/2018 Status: F Source: [facility] 7:35 PM [facility] REPOSITORY Order Comment: [place]: M TYPE CODE TESTS RESULT OUT OF RANGE REFERENCE UNITS LAB L200.28043 4.5-11.0 K/CU MM WBC Normal 10.2 LAB L200.38977 3.90-5.30 M/CU MM Low RBC 3.56 LAB L200.14340 11.5-15.5 G/DL Low HGB 9.3 LAB L200.74014 35.0-47.0 % Low HCT 30.5 LAB L200.31466 80.0-99.0 fl MCV Normal 85.7 LAB L200.06062 32.0-36.0 GM/DL Low MCHC 30.5 LAB L200.15491 11-14.5 High RDW 17.4 LAB L200.71893 9.4-12.4 Low MPV 8.4 LAB L200.37790 150-450 K/CU MM PLT Normal 344 LAB L200.89326 45-75 % High NEUTROPHILS % 82.6 LAB L200.32137 Less than 2 % IMMATURE Normal GRAN % 0.5 LAB L200.72328 20-40 % Low LYMPH % 8.9 LAB L200.05910 2-10 % MONOCYTE % Normal 7.3 LAB L200.45123 0-5 % EOSINOPHIL Normal % 0.5 LAB L200.78270 0-2 % BASOPHIL % Normal 0.2 LAB L200.67074 2.0-8.3 K/CU MM High NEUTROPHIL ABS 8.40 LAB L200.03801 Less than 2 K/CU MM IMMATR GRAN Normal ABS 0.10 LAB L200.91667 0.9-4.4 K/CU MM LYMPH ABS Normal 0.90 LAB L200.24196 0.1-1.1 K/CU MM MONO ABS Normal 0.70 LAB L200.80593 0-0.5 K/CU MM EOS ABS Normal 0.10 LAB L200.95428 0-0.2 K/CU MM BASO ABS Normal 0.00 LAB L200.47365 Less than 1 % NRBC Normal 0.0 Performed By: #### L200.09721 #### [facility] [address] [place] [address] BMP Collected: 05/06/2018 Status: F Source: [facility] 7:35 PM [facility] REPOSITORY Order Comment: [place]: TYPE CODE TESTS RESULT OUT OF RANGE REFERENCE UNITS LAB L500.81951 136-145 MMOL/L Normal NA 137 LAB L500.71795 3.5-5.1 MMOL/L Normal K 4.5 LAB L500.40704 98-107 MMOL/L High CL 110 LAB L500.12174 21-32 MMOL/L Low CO2 18 LAB L500.67191 5-16 MMOL/L Normal AGAP 9 LAB L500.82376 70-100 MG/DL High GLU 293 Result Comment: 70-100- Normal Fasting; 100-125 Impaired Fasting; greater than 126 on more than one result- Diabetes. ADA guidelines. Results may be falsely elevated after the administration of Sulfapyridine. Results may be falsely depressed after the administration of Sulfasalazine. LAB L500.26919 7-26 MG/DL Normal BUN 15 LAB L500.14349 0.510-0.950 MG/DL Low CREAT 0.287 Result Comment: Patients receiving either N-Acetylcysteine (NAC) or Metamizole prior to venipuncture, may have falsely depressed results. LAB L500.57211 15-24 BUN/CREA High 52 LAB L500.26918 8.5-10.1 MG/DL Low CALCIUM TOTAL 8.0 Performed By: #### L500.20184, L500.79674 #### [facility] [address] [place] [address] GFR EST Collected: 05/06/2018 Status: F Source: [facility] 7:35 PM [facility] REPOSITORY Order Comment: [place]: TYPE CODE TESTS RESULT OUT OF RANGE REFERENCE UNITS LAB L500.75932 ML/MIN Normal IF non-AFR Greater than AMER 60 LAB L500.59252 ML/MIN Normal IF Greater than AMER 60 Performed By: #### L500.32436, L500.03976 #### [facility] [place] [address] CR Observed: 05/06/2018 Status: UNK Source: [facility] 5:02 PM [facility] REPOSITORY DATE OF CONSULTATION: 05/06/2018 TIME: 11:59 p.m. CHIEF COMPLAINT: Decubitus ulcer and diarrhea. HISTORY OF CHIEF COMPLAINT: Patient states that she started developing decubitus ulcer in February after undergoing heart surgery. Following her surgery, she was weak and debilitated. Apparently, she had also had some prior surgery on her foot which made ambulation after surgery very difficult and she developed a decubitus ulcer from stasis. Since that time, she has also developed significant diarrhea. Apparently, at outlying institutions, attempts have been made to find the etiology of this and treat it, but this has been unsuccessful and she continues to have uncontrollable diarrhea. She states she does not really have sensation of when a stool was coming. She cannot control herself. She states she has never had a colonoscopy. She also states her appetite is poor. ALLERGIES: Denied. MEDICATIONS: Medication list is reviewed and is extensive. It includes Plavix and multiple medications for her diabetes. PAST MEDICAL HISTORY: Significant for NH, diabetes. She denies any stroke or cancer. PAST SURGICAL HISTORY: Significant for coronary artery bypass surgery, foot surgery. She has had a total abdominal hysterectomy but no GI surgery. SOCIAL HISTORY: She has been going back and forth between a hospital in [place] and a custodial and hospital in [place]. She states she stopped smoking more than 5 years ago and she does not use alcohol. She denies any anginal type chest pain. She has no limitation of her activity due to her cardiac status but is limited by her weakness and previous foot surgery. She denies any shortness of breath, cough productive of dry hemoptysis. She has an indwelling Allen catheter and has had so for several days. She denies any dysuria, pyuria or hematuria to her knowledge. She denies any associated symptomatology. PHYSICAL EXAMINATION: General: Physical examination reveals a well-developed, thin, frail appearing 67-year-old female appearing greater than her chronologic age. She is in no acute distress. Vital Signs: Stable. She is afebrile. Her white count is normal. She is anemic. Platelet count is normal. Proteins have not been checked yet. Clostridium difficile is pending. [facility] PATIENT NAME: VENITA SMITH [facility] Dr. Faulkner MEDICAL REC #: [id number] [place] [address] ADMIT DATE: 05/06/18 DISCHARGE DATE: CONSULTATION REPORT ATTENDING PHY: Frankie Snell MD Skin: Normal turgor, temperature, color and moisture. HEENT: Pupils are equally round and reactive. Sclerae are clear. Neck: Trachea is in the midline. HEART: Regular rate and rhythm. LUNGS: Clear to auscultation. ABDOMEN: Round, obese and soft. There is poor muscle tone. It is flaccid. There are no palpable masses or organomegaly. No surgical scars are identified in the upper abdomen. Bowel sounds are normal in pitch and frequency. MUSCULOSKELETAL: Inspection of the sacral area reveals a large, grade 3-4 ulcer. Measurements done per nursing. She has a diarrheal stool in her diaper which is black, probably due to her iron. RECTAL: Digital rectal examination reveals poor sphincter tone. Patient is asked to tighten and cannot tighten around the examining finger. EXTREMITIES: Appear somewhat wasted. She still has a bandage on her left lower extremity where her vein was harvested. Apparently, this did not heal well either. IMPRESSION: Grade 3-4 large sacral decubitus ulcer with diarrhea of uncertain etiology. DISCUSSION: Patient was seen for the possibility of performing a diverting colostomy. She states she was unaware that this is a possibility. Has never really thought about it as a possibility. I did answer all her questions at this point. I explained to her that this, in theory, would be temporary, but it may be several months to years until she was strong enough to have it reversed depending on how quick she healed and how quick she went for rehab. She does apparently understand that. She states she will think about it and I told her we would discuss this with her further, either myself or another surgeon, in a day or 2. In the meantime, I will get a KUB abdomen just to see where her colon lies in case it is elected to do a transverse diverting loop colostomy and also, we will ask for an enterostomal therapy consultation. Isael Colon DO [id number] SSI File#: [id number] Verified/Reviewed by 05/07/18 0952 LUISA [facility] PATIENT NAME: VENITA SMITH [facility] Dr. Faulkner MEDICAL REC #: [id number] [place] [address] ADMIT DATE: 05/06/18 DISCHARGE DATE: CONSULTATION REPORT ATTENDING PHY: Frankie Snell MD ABDOMEN OR KUB Observed: 05/06/2018 Status: F Source: [facility] 5:02 PM [facility] REPOSITORY ABDOMEN OR KUB Ordering Physician: Isael Colon DO 05/07/2018 8:00 AM SUPINE ABDOMEN: Clinical Statement: Ileus Comparison: CT abdomen and pelvis 05/06/2018 FINDINGS: There are gas-filled loops of small bowel of the abdomen. Contrast stool and gas is seen throughout the colon. The colon is not dilated. No intraperitoneal free air. Vascular calcifications are noted. IMPRESSION: Distended nondilated loops of small bowel and colon throughout the abdomen that may reflect a mild ileus. Enteric contrast is seen within the colon. ---- Electronic Signature on File ---- Signed By: Nadir Koehler MD [email or web address] Dictated: 05/07/2018 8:49 AM Signed: 05/07/2018 8:52 AM Reported By: NADIR KOEHLER M.D. Signed By: NADIR KOEHLER M.D. Observed: 05/06/2018 Status: UNK Source: [facility] 5:02 PM [facility] REPOSITORY DATE OF CONSULTATION: 05/07/2018 CHIEF COMPLAINT: 1. Pressure ulcer, sacral area, stage IV. 2. Open wound of the left lower leg (healing). 3. History of coronary artery bypass graft. HISTORY OF PRESENT ILLNESS: This is a 67-year-old white female who had undergone coronary artery bypass graft done at [facility] on February 15, 2018. She was then transferred over to [facility] where she stayed for some time and was found to have a nonhealing wound on the leg which opened up and started to drain, as well as developed a large pressure ulcer in the sacral area. The patient was seen by, I think, Dr. Ivory, who did extensive debridement to the leg as well as is in the sacral area. She was then transferred over to [facility] where she stayed there for almost 6 weeks to about 2 months. At that time, I did extensive debridements on sacral wounds as well as debridement on the left lower leg wound. Then, she was taken to surgery about a month ago. At that time, I did close the linear wounds, and part of the wound that was open was covered with a TheraSkin graft. Patient was then transferred over to a custodial. Yesterday, she was then brought back to [facility] for extended treatments of her wounds as well as her medical condition. PHYSICAL EXAMINATION: General: She is alert. Vital Signs: Stable. Skin: Examination of the leg wound shows it seemed to be healing very well. The graft was well taken even though it is a TheraSkin, but still has closed the wound, and I would leave that alone. The leg wound can be dressed with Adaptic with no major problem. The patient still has a very large sacral ulcer, measuring about 12 x 121 cm in size, with a depth of about 1 cm. It does seem to extend all the way to the bone and has some slough and some necrotic tissue present. PLAN OF TREATMENT: Patient has been debrided before she was discharged from [facility] and she was supposed to see me at the [facility] which never happened, but since the wound seems to be clean, it can be closed if she is medically cleared. She is on extensive anticoagulant medications which should be stopped or changed into Lovenox so that she can be treated with surgery, and then restarted back on her medications. She can be transferred over to heparin instead of her other anticoagulant which can be stopped prior to surgery. There is a large flap requirement for this large pressure ulcer which can be done if she is medically cleared. Presently, I would recommend patient should have wound VAC therapy which can be changed 3x a week. In the meantime, we will follow the patient medically and the wound care while she is in the hospital. [facility] PATIENT NAME: VENITA SMITH Dr. Faulkner MEDICAL REC #: [id number] [place] [address] ADMIT DATE: 05/06/18 DISCHARGE DATE: CONSULTATION REPORT ATTENDING PHY: Frankie Snell MD, MD [id number] SSI File#: [id number] Verified/Reviewed by 05/09/18 Shaila LOZANO [facility] PATIENT NAME: VENITA SMITH Dr. Faulkner MEDICAL REC #: [id number] [place] [address] ADMIT DATE: 05/06/18 DISCHARGE DATE: CONSULTATION REPORT ATTENDING PHY: Frankie Snell MD CBC W/DIFF Collected: 04/24/2018 Status: F Source: [facility] 4:53 AM [facility] REPOSITORY Order Comment: [place]: TYPE CODE TESTS RESULT OUT OF RANGE REFERENCE UNITS LAB L200.80436 4.5-11.0 K/CU MM WBC Normal 9.9 LAB L200.83445 3.90-5.30 M/CU MM Low RBC 3.09 LAB L200.98172 11.5-15.5 G/DL Low HGB 8.0 LAB L200.92654 35.0-47.0 % Low HCT 25.8 LAB L200.28142 80.0-99.0 fl MCV Normal 83.5 LAB L200.75077 32.0-36.0 GM/DL Low MCHC 31.0 LAB L200.24643 11-14.5 High RDW 17.0 LAB L200.70742 9.4-12.4 Low MPV 8.2 LAB L200.47660 150-450 K/CU MM PLT Normal 250 LAB L200.22841 45-75 % High NEUTROPHILS % 76.0 LAB L200.83632 Less than 2 % IMMATURE Normal GRAN % 0.4 LAB L200.92556 20-40 % Low LYMPH % 11.8 LAB L200.91722 2-10 % High MONOCYTE % 11.1 LAB L200.20149 0-5 % EOSINOPHIL Normal % 0.5 LAB L200.66762 0-2 % BASOPHIL % Normal 0.2 LAB L200.66935 2.0-8.3 K/CU MM NEUTROPHIL Normal ABS 7.60 LAB L200.59414 Less than 2 K/CU MM IMMATR GRAN Normal ABS 0.00 LAB L200.35113 0.9-4.4 K/CU MM LYMPH ABS Normal 1.20 LAB L200.73797 0.1-1.1 K/CU MM MONO ABS Normal 1.10 LAB L200.38920 0-0.5 K/CU MM EOS ABS Normal 0.10 LAB L200.45797 0-0.2 K/CU MM BASO ABS Normal 0.00 LAB L200.07545 Less than 1 % NRBC Normal 0.0 Performed By: #### L200.97131 #### [facility] [address] [place] [address] PT Collected: 04/24/2018 Status: F Source: [facility] 4:53 AM [facility] REPOSITORY Order Comment: [place]: TYPE CODE TESTS RESULT OUT OF RANGE REFERENCE UNITS LAB L300.68345 0.9-1.1 High INR 2.0 Result Comment: 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 For heart valve and shunt patients the range is 2.5 - 3.5. LAB L300.39187 9.4-12.0 SECONDS High 21.4 PTS Performed By: #### L300.62926 #### [facility] [address] [place] [address] CMP Collected: 04/24/2018 Status: F Source: [facility] 4:53 AM [facility] REPOSITORY Order Comment: [place]: M TYPE CODE TESTS RESULT OUT OF RANGE REFERENCE UNITS LAB L500.02993 136-145 MMOL/L Normal NA 136 LAB L500.89987 3.5-5.1 MMOL/L Normal K 4.4 LAB L500.62932 98-107 MMOL/L Normal CL 102 LAB L500.85874 21-32 MMOL/L Normal CO2 27 LAB L500.56400 5-16 MMOL/L Normal AGAP 8 LAB L500.68165 70-100 MG/DL High GLU 209 Result Comment: 70-100- Normal Fasting; 100-125 Impaired Fasting; greater than 126 on more than one result- Diabetes. ADA guidelines. Results may be falsely elevated after the administration of Sulfapyridine. Results may be falsely depressed after the administration of Sulfasalazine. LAB L500.27839 7-26 MG/DL Normal BUN 13 LAB L500.64866 0.510-0.950 MG/DL Low CREAT 0.367 Result Comment: Patients receiving either N-Acetylcysteine (NAC) or Metamizole prior to venipuncture, may have falsely depressed results. LAB L500.60399 15-24 High BUN/CREA 35 LAB L500.04678 6.0-8.5 GM/DL Low TP 5.1 LAB L500.14384 3.2-5.0 GM/DL Low ALBUMIN 1.6 LAB L500.05818 2.2-4.2 GM/DL Normal GLOBULIN 3.5 LAB L500.97992 0.8-2.0 Low A/G RATIO 0.5 LAB L500.14477 8.5-10.1 MG/DL Low CALCIUM TOTAL 7.8 LAB L500.58168 0.2-1.0 MG/DL Normal BILI TOTAL 0.3 LAB L500.57238 8-34 U/L Normal SGOT (AST) 24 Result Comment: RESULTS MAY BE FALSELY DEPRESSED AFTER THE ADMINISTRATION OF SULFASALAZINE AND/OR SULFAPYRIDINE. LAB L500.73937 13-61 IU/L Normal SGPT (ALT) 25 Result Comment: RESULTS MAY BE FALSELY DEPRESSED AFTER THE ADMINISTRATION OF SULFASALAZINE AND/OR SULFAPYRIDINE. LAB L500.54951 45-117 U/L High ALK PHOS 384 Performed By: #### L500.94560, L500.22097 #### [facility] [address] [place] [address] GFR EST Collected: 04/24/2018 Status: F Source: [facility] 4:53 AM [facility] REPOSITORY Order Comment: [place]: M TYPE CODE TESTS RESULT OUT OF RANGE REFERENCE UNITS LAB L500.37674 ML/MIN Normal IF non-AFR Greater than AMER 60 LAB L500.89664 ML/MIN Normal IF Greater than AMER 60 Performed By: #### L500.17838, L500.00026 #### [facility] [address] [place] [address] PROG.NOTE Observed: 04/23/2018 Status: UNK Source: [facility] 12:23 PM [facility] REPOSITORY [facility] Patient Name: VENITA SMITH [address] [place] [address] Date of : [address] [address] Unit Number: [id number] Progress Note-Physician Patient Status: REG RCR Attending Doctor: Dimitri Smith MD Service Date: 04/23/18 1223 Subjective S: (2 ROS minimum) Feeling ok, no fever, no abd pain, no n/v/d. Vaginal drainage improved. Objective (ROS) Physical Exam Neurological / Psychiatric Alert Respiratory Normal Breathing Effort, Clear Lungs Cardiovascular Heart RRR, No M / R / G Gastrointestinal Non Tender, No Mass Skin No Rash, Wound vac over sacrum. LLE healing. Assessment and Plan Conclusion 1. Osteomyelitis Doing well, reviewed labs and vitals. 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 - Completed course of vori 04/01. Completed course of meropenem. Sacral area debrided today 04/18/18. - Repeat CT showed unchanged abd abscess, colitis, and ? cholecystitis. Surgery following , plan on abscess drainage eventually. Plan on at least another month of po cipro and flagyl until abscess can be addressed. - Repeat wound cx of LLE with Acinetobacter, R to meropenem, and gamma strep. Added doxy and cipro due to fever. Now improved and taken to OR 04/05 for LLE closure. Completed course of doxy. LLE doing well. - completed linezolid for VRE in vaginal swab and on ucx. Has improvement in vaginal drainage. Will follow. D/w wound care. ID follow-up with me in next 1-3 weeks, can coordinated with wound care visit. Disclaimer This dictation was created using voice recognition software. Phonetic and/or minor grammatical errors may exist. eSign Date and Time Syeda Palmer MD Verified/Reviewed by 04/23/18 1226 CBC W/DIFF Collected: 04/23/2018 Status: F Source: [facility] 4:38 AM [facility] REPOSITORY Order Comment: [place]: TYPE CODE TESTS RESULT OUT OF RANGE REFERENCE UNITS LAB L200.19095 4.5-11.0 K/CU MM WBC Normal 7.9 LAB L200.11617 3.90-5.30 M/CU MM Low RBC 2.99 LAB L200.55768 11.5-15.5 G/DL Low HGB 7.7 LAB L200.14620 35.0-47.0 % Low HCT 24.7 LAB L200.26538 80.0-99.0 fl MCV Normal 82.6 LAB L200.90446 32.0-36.0 GM/DL Low MCHC 31.2 LAB L200.08406 11-14.5 High RDW 16.5 LAB L200.32281 9.4-12.4 Low MPV 8.0 LAB L200.63662 150-450 K/CU MM PLT Normal 231 LAB L200.31810 45-75 % NEUTROPHILS Normal % 70.4 LAB L200.05970 Less than 2 % IMMATURE Normal GRAN % 0.5 LAB L200.28056 20-40 % Low LYMPH % 15.1 LAB L200.70594 2-10 % High MONOCYTE % 13.4 LAB L200.56561 0-5 % EOSINOPHIL Normal % 0.5 LAB L200.55563 0-2 % BASOPHIL % Normal 0.1 LAB L200.92583 2.0-8.3 K/CU MM NEUTROPHIL Normal ABS 5.60 LAB L200.26777 Less than 2 K/CU MM IMMATR GRAN Normal ABS 0.00 LAB L200.25071 0.9-4.4 K/CU MM LYMPH ABS Normal 1.20 LAB L200.27792 0.1-1.1 K/CU MM MONO ABS Normal 1.10 LAB L200.47623 0-0.5 K/CU MM EOS ABS Normal 0.00 LAB L200.31648 0-0.2 K/CU MM BASO ABS Normal 0.00 LAB L200.45627 Less than 1 % NRBC Normal 0.0 Performed By: #### L200.48026 #### [facility] [address] [place] [address] PT Collected: 04/23/2018 Status: F Source: [facility] 4:38 AM [facility] REPOSITORY Order Comment: [place]: M TYPE CODE TESTS RESULT OUT OF RANGE REFERENCE UNITS LAB L300.65492 0.9-1.1 High INR 2.1 Result Comment: Recommended PT INR therapeutic range for detention and prophylactic therapy is 2.0 - 3.0. For heart valve and shunt patients the range is 2.5 - 3.5. LAB L300.36192 9.4-12.0 SECONDS High 23.2 PTS Performed By: #### L300.67161 #### [facility] [address] [place] [address] CMP Collected: 04/23/2018 Status: F Source: [facility] 4:38 AM [facility] REPOSITORY Order Comment: [place]: M TYPE CODE TESTS RESULT OUT OF RANGE REFERENCE UNITS LAB L500.96245 136-145 MMOL/L Normal NA 136 LAB L500.97542 3.5-5.1 MMOL/L Normal K 4.2 LAB L500.78136 98-107 MMOL/L Normal CL 102 LAB L500.97620 21-32 MMOL/L Normal CO2 26 LAB L500.70334 5-16 MMOL/L Normal AGAP 8 LAB L500.22803 70-100 MG/DL High GLU 183 Result Comment: 70-100- Normal Fasting; 100-125 Impaired Fasting; greater than 126 on more than one result- Diabetes. ADA guidelines. Results may be falsely elevated after the administration of Sulfapyridine. Results may be falsely depressed after the administration of Sulfasalazine. LAB L500.91125 7-26 MG/DL Normal BUN 10 LAB L500.59822 0.510-0.950 MG/DL Low CREAT 0.412 Result Comment: Patients receiving either N-Acetylcysteine (NAC) or Metamizole prior to venipuncture, may have falsely depressed results. LAB L500.22248 15-24 Normal BUN/CREA 24 LAB L500.41597 6.0-8.5 GM/DL Low TP 5.3 LAB L500.78362 3.2-5.0 GM/DL Low ALBUMIN 1.6 LAB L500.42464 2.2-4.2 GM/DL Normal GLOBULIN 3.7 LAB L500.71353 0.8-2.0 Low A/G RATIO 0.4 LAB L500.11143 8.5-10.1 MG/DL Low CALCIUM TOTAL 7.8 LAB L500.14267 0.2-1.0 MG/DL Normal BILI TOTAL 0.4 LAB L500.84748 8-34 U/L High SGOT (AST) 120 Result Comment: RESULTS MAY BE FALSELY DEPRESSED AFTER THE ADMINISTRATION OF SULFASALAZINE AND/OR SULFAPYRIDINE. LAB L500.07080 13-61 IU/L Normal SGPT (ALT) 41 Result Comment: RESULTS MAY BE FALSELY DEPRESSED AFTER THE ADMINISTRATION OF SULFASALAZINE AND/OR SULFAPYRIDINE. LAB L500.79730 45-117 U/L High ALK PHOS 552 Performed By: #### L500.02303, L500.22047 #### [facility] [address] [place] [address] GFR EST Collected: 04/23/2018 Status: F Source: [facility] 4:38 AM [facility] REPOSITORY Order Comment: [place]: M TYPE CODE TESTS RESULT OUT OF RANGE REFERENCE UNITS LAB L500.15363 ML/MIN Normal IF non-AFR Greater than AMER 60 LAB L500.18391 ML/MIN Normal IF Greater than AMER 60 Performed By: #### L500.77884, L500.71100 #### [facility] [address] [place] [address] PT Collected: 04/22/2018 Status: F Source: [facility] 5:44 AM [facility] REPOSITORY Order Comment: [place]: M TYPE CODE TESTS RESULT OUT OF RANGE REFERENCE UNITS LAB L300.49951 0.9-1.1 High INR 2.6 Result Comment: Recommended PT INR therapeutic range for detention and prophylactic therapy is 2.0 - 3.0. For heart valve and shunt patients the range is 2.5 - 3.5. LAB L300.30839 9.4-12.0 SECONDS High 28.2 PTS Performed By: #### L300.21779 #### [facility] [address] [place] [address] PT Collected: 04/21/2018 Status: F Source: [facility] 3:32 PM [facility] REPOSITORY Order Comment: [place]: M TYPE CODE TESTS RESULT OUT OF RANGE REFERENCE UNITS LAB L300.26103 0.9-1.1 High INR 3.1 Result Comment: 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 For heart valve and shunt patients the range is 2.5 - 3.5. LAB L300.18288 9.4-12.0 SECONDS High 34.3 PTS Performed By: #### L300.44277 #### [facility] [address] [place] [address] CBC W/DIFF Collected: 04/20/2018 Status: F Source: [facility] 4:14 AM [facility] REPOSITORY Order Comment: [place]: M TYPE CODE TESTS RESULT OUT OF RANGE REFERENCE UNITS LAB L200.75053 4.5-11.0 K/CU MM WBC Normal 9.8 LAB L200.09061 3.90-5.30 M/CU MM Low RBC 3.06 LAB L200.20553 11.5-15.5 G/DL Low HGB 7.9 LAB L200.07488 35.0-47.0 % Low HCT 25.1 LAB L200.97573 80.0-99.0 fl MCV Normal 82.0 LAB L200.74528 32.0-36.0 GM/DL Low MCHC 31.5 LAB L200.62975 11-14.5 High RDW 16.4 LAB L200.52801 9.4-12.4 Low MPV 8.2 LAB L200.67182 150-450 K/CU MM PLT Normal 263 LAB L200.63087 45-75 % High NEUTROPHILS % 76.0 LAB L200.76139 Less than 2 % IMMATURE Normal GRAN % 0.4 LAB L200.97070 20-40 % Low LYMPH % 13.1 LAB L200.12178 2-10 % MONOCYTE % Normal 9.5 LAB L200.08616 0-5 % EOSINOPHIL Normal % 0.9 LAB L200.45844 0-2 % BASOPHIL % Normal 0.1 LAB L200.05284 2.0-8.3 K/CU MM NEUTROPHIL Normal ABS 7.40 LAB L200.91012 Less than 2 K/CU MM IMMATR GRAN Normal ABS 0.00 LAB L200.04112 0.9-4.4 K/CU MM LYMPH ABS Normal 1.30 LAB L200.27611 0.1-1.1 K/CU MM MONO ABS Normal 0.90 LAB L200.13324 0-0.5 K/CU MM EOS ABS Normal 0.10 LAB L200.30631 0-0.2 K/CU MM BASO ABS Normal 0.00 LAB L200.46370 Less than 1 % NRBC Normal 0.0 Performed By: #### L200.10525 #### [facility] [address] [place] [address] PT Collected: 04/20/2018 Status: F Source: [facility] 4:14 AM [facility] REPOSITORY Order Comment: [place]: TYPE CODE TESTS RESULT OUT OF RANGE REFERENCE UNITS LAB L300.64690 0.9-1.1 High INR 3.3 Result Comment: Recommended PT INR therapeutic range for detention and prophylactic therapy is 2.0 - 3.0. For heart valve and shunt patients the range is 2.5 - 3.5. LAB L300.44673 9.4-12.0 SECONDS High 36.7 PTS Performed By: #### L300.93171 #### [facility] [address] [place] [address] CMP Collected: 04/20/2018 Status: F Source: [facility] 4:14 AM [facility] REPOSITORY Order Comment: [place]: M TYPE CODE TESTS RESULT OUT OF RANGE REFERENCE UNITS LAB L500.52637 136-145 MMOL/L Normal NA 136 LAB L500.04532 3.5-5.1 MMOL/L Normal K 4.0 LAB L500.73896 98-107 MMOL/L Normal CL 101 LAB L500.10645 21-32 MMOL/L Normal CO2 28 LAB L500.24153 5-16 MMOL/L Normal AGAP 7 LAB L500.32834 70-100 MG/DL High GLU 122 Result Comment: 70-100- Normal Fasting; 100-125 Impaired Fasting; greater than 126 on more than one result- Diabetes. ADA guidelines. Results may be falsely elevated after the administration of Sulfapyridine. Results may be falsely depressed after the administration of Sulfasalazine. LAB L500.61465 7-26 MG/DL Normal BUN 20 LAB L500.88563 0.510-0.950 MG/DL Low CREAT 0.429 Result Comment: Patients receiving either N-Acetylcysteine (NAC) or Metamizole prior to venipuncture, may have falsely depressed results. LAB L500.07339 15-24 High BUN/CREA 47 LAB L500.51138 6.0-8.5 GM/DL Low TP 5.0 LAB L500.40396 3.2-5.0 GM/DL Low ALBUMIN 1.5 LAB L500.48371 2.2-4.2 GM/DL Normal GLOBULIN 3.5 LAB L500.20885 0.8-2.0 Low A/G RATIO 0.4 LAB L500.36615 8.5-10.1 MG/DL Low CALCIUM TOTAL 8.0 LAB L500.15842 0.2-1.0 MG/DL Normal BILI TOTAL 0.3 LAB L500.77623 8-34 U/L Normal SGOT (AST) 16 Result Comment: RESULTS MAY BE FALSELY DEPRESSED AFTER THE ADMINISTRATION OF SULFASALAZINE AND/OR SULFAPYRIDINE. LAB L500.53404 13-61 IU/L Low SGPT (ALT) 8 Result Comment: RESULTS MAY BE FALSELY DEPRESSED AFTER THE ADMINISTRATION OF SULFASALAZINE AND/OR SULFAPYRIDINE. LAB L500.13521 45-117 U/L Normal ALK PHOS 76 Performed By: #### L500.76239, L500.91066 #### [facility] [address] [place] [address] GFR EST Collected: 04/20/2018 Status: F Source: [facility] 4:14 AM [facility] REPOSITORY Order Comment: [place]: M TYPE CODE TESTS RESULT OUT OF RANGE REFERENCE UNITS LAB L500.60318 ML/MIN Normal IF non-AFR Greater than AMER 60 LAB L500.55445 ML/MIN Normal IF Greater than AMER 60 Performed By: #### L500.85283, L500.11351 #### [facility] [address] [place] [address] PT Collected: 04/19/2018 Status: F Source: [facility] 4:12 AM [facility] REPOSITORY Order Comment: [place]: M TYPE CODE TESTS RESULT OUT OF RANGE REFERENCE UNITS LAB L300.61515 0.9-1.1 High INR 2.7 Result Comment: Recommended PT INR therapeutic range for detention and prophylactic therapy is 2.0 - 3.0. For heart valve and shunt patients the range is 2.5 - 3.5. LAB L300.07839 9.4-12.0 SECONDS High 29.2 PTS Performed By: #### L300.70060 #### [facility] [address] [place] [address] PROG.NOTE Observed: 04/18/2018 Status: UNK Source: [facility] 12:43 PM [facility] Patient Name: VENITA SMITH [address] [place] [address] Date of : [address] [address] Unit Number: [id number] Progress Note-Physician Patient Status: REG RCR Attending Doctor: Dimitri Smith MD Service Date: 04/18/18 1243 Subjective S: (2 ROS minimum) Feeling ok, debridement this AM. No fever, no abd pain. Still heavy vaginal discharge. Objective (ROS) Physical Exam Neurological / Psychiatric Alert Respiratory Normal Breathing Effort, Clear Lungs Cardiovascular Heart RRR, No M / R / G Gastrointestinal Non Tender, No Mass Skin reviewed photos. LLE doing well. Assessment and Plan Conclusion 1. Osteomyelitis Doing well, reviewed labs and vitals. 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 - Completed course of vori 04/01. Completed course of meropenem. Sacral area debrided today 04/18/18. - Repeat CT showed unchanged abd abscess, colitis, and ? cholecystitis. Surgery following , plan on abscess drainage eventually. Plan on long course of po cipro and flagyl until abscess can be addressed. - Repeat wound cx of LLE with Acinetobacter, R to meropenem, and gamma strep. Added doxy and cipro due to fever. Now improved and taken to OR 04/05 for LLE closure. Completed course of doxy. LLE doing well. - started linezolid for VRE in vaginal swab and on ucx. No improvement in vaginal drainage. Will follow. D/w wound care. Disclaimer This dictation was created using voice recognition software. Phonetic and/or minor grammatical errors may exist. eSign Date and Time Syeda Palmer MD Verified/Reviewed by 04/18/18 1246 CBC W/DIFF Collected: 04/18/2018 Status: F Source: [facility] 4:41 AM [facility] REPOSITORY Order Comment: [place]: M TYPE CODE TESTS RESULT OUT OF RANGE REFERENCE UNITS LAB L200.69426 4.5-11.0 K/CU MM WBC Normal 6.2 LAB L200.26869 3.90-5.30 M/CU MM Low RBC 2.88 LAB L200.31781 11.5-15.5 G/DL Low HGB 7.2 LAB L200.49064 35.0-47.0 % Low HCT 23.8 LAB L200.63648 80.0-99.0 fl MCV Normal 82.6 LAB L200.32040 32.0-36.0 GM/DL Low MCHC 30.3 LAB L200.28372 11-14.5 High RDW 16.3 LAB L200.68967 9.4-12.4 Low MPV 8.4 LAB L200.14156 150-450 K/CU MM PLT Normal 272 LAB L200.64475 45-75 % NEUTROPHILS Normal % 70.7 LAB L200.56559 Less than 2 % IMMATURE Normal GRAN % 0.3 LAB L200.47304 20-40 % Low LYMPH % 18.3 LAB L200.55305 2-10 % MONOCYTE % Normal 9.5 LAB L200.59902 0-5 % EOSINOPHIL Normal % 1.0 LAB L200.94347 0-2 % BASOPHIL % Normal 0.2 LAB L200.24266 2.0-8.3 K/CU MM NEUTROPHIL Normal ABS 4.40 LAB L200.60366 Less than 2 K/CU MM IMMATR GRAN Normal ABS 0.00 LAB L200.13631 0.9-4.4 K/CU MM LYMPH ABS Normal 1.10 LAB L200.12923 0.1-1.1 K/CU MM MONO ABS Normal 0.60 LAB L200.70837 0-0.5 K/CU MM EOS ABS Normal 0.10 LAB L200.08746 0-0.2 K/CU MM BASO ABS Normal 0.00 LAB L200.49631 Less than 1 % NRBC Normal 0.0 Performed By: #### L200.41297 #### [facility] [address] [place] [address] PT Collected: 04/18/2018 Status: F Source: [facility] 4:40 AM [facility] REPOSITORY Order Comment: [place]: M TYPE CODE TESTS RESULT OUT OF RANGE REFERENCE UNITS LAB L300.60783 0.9-1.1 High INR 2.5 Result Comment: 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 For heart valve and shunt patients the range is 2.5 - 3.5. LAB L300.95117 9.4-12.0 SECONDS High 27.5 PTS Performed By: #### L300.29329 #### [facility] [address] [place] [address] CMP Collected: 04/18/2018 Status: F Source: [facility] 4:40 AM [facility] REPOSITORY Order Comment: [place]: M TYPE CODE TESTS RESULT OUT OF RANGE REFERENCE UNITS LAB L500.42496 136-145 MMOL/L Low NA 135 LAB L500.69817 3.5-5.1 MMOL/L Normal K 3.6 LAB L500.80169 98-107 MMOL/L Normal CL 99 LAB L500.23764 21-32 MMOL/L Normal CO2 29 LAB L500.24901 5-16 MMOL/L Normal AGAP 7 LAB L500.44928 70-100 MG/DL High GLU 207 Result Comment: 70-100- Normal Fasting; 100-125 Impaired Fasting; greater than 126 on more than one result- Diabetes. ADA guidelines. Results may be falsely elevated after the administration of Sulfapyridine. Results may be falsely depressed after the administration of Sulfasalazine. LAB L500.18562 7-26 MG/DL Normal BUN 21 LAB L500.23530 0.510-0.950 MG/DL Low CREAT 0.359 Result Comment: Patients receiving either N-Acetylcysteine (NAC) or Metamizole prior to venipuncture, may have falsely depressed results. LAB L500.35909 15-24 High BUN/CREA 58 LAB L500.28310 6.0-8.5 GM/DL Low TP 4.7 LAB L500.77050 3.2-5.0 GM/DL Low ALBUMIN 1.3 LAB L500.68487 2.2-4.2 GM/DL Normal GLOBULIN 3.4 LAB L500.25656 0.8-2.0 Low A/G RATIO 0.4 LAB L500.77246 8.5-10.1 MG/DL Low CALCIUM TOTAL 7.5 LAB L500.58915 0.2-1.0 MG/DL Normal BILI TOTAL 0.2 LAB L500.14258 8-34 U/L Normal SGOT (AST) 13 Result Comment: RESULTS MAY BE FALSELY DEPRESSED AFTER THE ADMINISTRATION OF SULFASALAZINE AND/OR SULFAPYRIDINE. LAB L500.54167 13-61 IU/L Low SGPT (ALT) 8 Result Comment: RESULTS MAY BE FALSELY DEPRESSED AFTER THE ADMINISTRATION OF SULFASALAZINE AND/OR SULFAPYRIDINE. LAB L500.56384 45-117 U/L Normal ALK PHOS 74 Performed By: #### L500.56543, L500.18825 #### [facility] [address] [place] [address] GFR EST Collected: 04/18/2018 Status: F Source: [facility] 4:40 AM [facility] REPOSITORY Order Comment: [place]: M TYPE CODE TESTS RESULT OUT OF RANGE REFERENCE UNITS LAB L500.56770 ML/MIN Normal IF non-AFR Greater than AMER 60 LAB L500.51883 ML/MIN Normal IF Greater than AMER 60 Performed By: #### L500.01737, L500.37704 #### [facility] [address] [place] [address] PT Collected: 04/17/2018 Status: F Source: [facility] 4:35 AM [facility] REPOSITORY Order Comment: [place]: M TYPE CODE TESTS RESULT OUT OF RANGE REFERENCE UNITS LAB L300.50286 0.9-1.1 High INR 2.2 Result Comment: 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 For heart valve and shunt patients the range is 2.5 - 3.5. LAB L300.98827 9.4-12.0 SECONDS High 24.4 PTS Performed By: #### L300.83392 #### [facility] [address] [place] [address] CBC W/DIFF Collected: 04/16/2018 Status: F Source: [facility] 5:05 AM [facility] REPOSITORY Order Comment: [place]: M TYPE CODE TESTS RESULT OUT OF RANGE REFERENCE UNITS LAB L200.11064 4.5-11.0 K/CU MM WBC Normal 8.0 LAB L200.55895 3.90-5.30 M/CU MM Low RBC 3.06 LAB L200.92289 11.5-15.5 G/DL Low HGB 7.9 LAB L200.30250 35.0-47.0 % Low HCT 25.3 LAB L200.83665 80.0-99.0 fl MCV Normal 82.7 LAB L200.63002 32.0-36.0 GM/DL Low MCHC 31.2 LAB L200.98711 11-14.5 High RDW 16.6 LAB L200.69975 9.4-12.4 Low MPV 8.3 LAB L200.04563 150-450 K/CU MM PLT Normal 292 LAB L200.19615 45-75 % NEUTROPHILS Normal % 70.6 LAB L200.67486 Less than 2 % IMMATURE Normal GRAN % 0.4 LAB L200.79252 20-40 % Low LYMPH % 16.5 LAB L200.02865 2-10 % High MONOCYTE % 11.4 LAB L200.67924 0-5 % EOSINOPHIL Normal % 0.8 LAB L200.18574 0-2 % BASOPHIL % Normal 0.3 LAB L200.27181 2.0-8.3 K/CU MM NEUTROPHIL Normal ABS 5.60 LAB L200.62937 Less than 2 K/CU MM IMMATR GRAN Normal ABS 0.00 LAB L200.01791 0.9-4.4 K/CU MM LYMPH ABS Normal 1.30 LAB L200.00332 0.1-1.1 K/CU MM MONO ABS Normal 0.90 LAB L200.04233 0-0.5 K/CU MM EOS ABS Normal 0.10 LAB L200.15401 0-0.2 K/CU MM BASO ABS Normal 0.00 LAB L200.37236 Less than 1 % NRBC Normal 0.0 Performed By: #### L200.60255 #### [facility] [address] [place] [address] PT Collected: 04/16/2018 Status: F Source: [facility] 5:05 AM [facility] REPOSITORY Order Comment: [place]: M TYPE CODE TESTS RESULT OUT OF RANGE REFERENCE UNITS LAB L300.64184 0.9-1.1 High INR 2.3 Result Comment: 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 For heart valve and shunt patients the range is 2.5 - 3.5. LAB L300.69032 9.4-12.0 SECONDS High 25.1 PTS Performed By: #### L300.10647 #### [facility] [address] [place] [address] CMP Collected: 04/16/2018 Status: F Source: [facility] 5:05 AM [facility] REPOSITORY Order Comment: [place]: M TYPE CODE TESTS RESULT OUT OF RANGE REFERENCE UNITS LAB L500.31054 136-145 MMOL/L Normal NA 136 LAB L500.18098 3.5-5.1 MMOL/L Normal K 3.8 LAB L500.90048 98-107 MMOL/L Normal CL 99 LAB L500.57637 21-32 MMOL/L Normal CO2 30 LAB L500.73242 5-16 MMOL/L Normal AGAP 7 LAB L500.93615 70-100 MG/DL High GLU 214 Result Comment: 70-100- Normal Fasting; 100-125 Impaired Fasting; greater than 126 on more than one result- Diabetes. ADA guidelines. Results may be falsely elevated after the administration of Sulfapyridine. Results may be falsely depressed after the administration of Sulfasalazine. LAB L500.91651 7-26 MG/DL Normal BUN 12 LAB L500.30765 0.510-0.950 MG/DL Low CREAT 0.478 Result Comment: Patients receiving either N-Acetylcysteine (NAC) or Metamizole prior to venipuncture, may have falsely depressed results. LAB L500.34253 15-24 High BUN/CREA 25 LAB L500.02897 6.0-8.5 GM/DL Low TP 4.8 LAB L500.85338 3.2-5.0 GM/DL Low ALBUMIN 1.4 LAB L500.02069 2.2-4.2 GM/DL Normal GLOBULIN 3.4 LAB L500.10842 0.8-2.0 Low A/G RATIO 0.4 LAB L500.65008 8.5-10.1 MG/DL Low CALCIUM TOTAL 7.7 LAB L500.67406 0.2-1.0 MG/DL Normal BILI TOTAL 0.3 LAB L500.72656 8-34 U/L Normal SGOT (AST) 12 Result Comment: RESULTS MAY BE FALSELY DEPRESSED AFTER THE ADMINISTRATION OF SULFASALAZINE AND/OR SULFAPYRIDINE. LAB L500.50971 13-61 IU/L Low SGPT (ALT) 9 Result Comment: RESULTS MAY BE FALSELY DEPRESSED AFTER THE ADMINISTRATION OF SULFASALAZINE AND/OR SULFAPYRIDINE. LAB L500.98094 45-117 U/L Normal ALK PHOS 86 Performed By: #### L500.24025, L500.13662 #### [facility] [address] [place] [address] GFR EST Collected: 04/16/2018 Status: F Source: [place] [address]:05 AM [facility] REPOSITORY Order Comment: [place]: M TYPE CODE TESTS RESULT OUT OF RANGE REFERENCE UNITS LAB L500.14129 ML/MIN Normal IF non-AFR Greater than AMER 60 LAB L500.07559 ML/MIN Normal IF Greater than AMER 60 Performed By: #### L500.48717, L500.79062 #### [facility] [place] [address] PROG.NOTE Observed: 04/15/2018 Status: UNK Source: [facility] 10:04 AM [facility] REPOSITORY [facility] Patient Name: VENITA SMITH [address] [facility] Date of : [address] [address] Unit Number: [id number] Progress Note-Physician Patient Status: REG RCR Attending Doctor: Dimitri Smith MD Service Date: 04/15/18 1004 Subjective S: (2 ROS minimum) Feeling well, no fever, no n/v/d or abd pain. Objective (ROS) Physical Exam Neurological / Psychiatric Alert Respiratory Normal Breathing Effort, Clear Lungs Cardiovascular Heart RRR, No M / R / G Gastrointestinal Non Tender, No Mass Skin No Rash, LLE wrapped, wound vac over sacrum Assessment and Plan Conclusion 1. Osteomyelitis Doing well, reviewed labs and vitals. 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 - Completed course of vori 04/01. Will stop meropenem today. May go for debridement of sacrum. - Repeat CT showed unchanged abd abscess, colitis, and ? cholecystitis. Surgery following , plan on abscess drainage eventually. Plan on long course of po cipro and flagyl until abscess can be addressed. - Repeat wound cx of LLE with Acinetobacter, R to meropenem, and gamma strep. Added po doxy and iv cipro due to fever. Now improved and taken to OR 04/05 for LLE closure. Will stop doxy today. - started linezolid for VRE in vaginal swab Will follow. D/w wound care. Disclaimer This dictation was created using voice recognition software. Phonetic and/or minor grammatical errors may exist. eSign Date and Time Syeda Palmer MD Verified/Reviewed by 04/15/18 1006 CBC W/DIFF Collected: 04/15/2018 Status: F Source: [facility] 5:17 AM [facility] REPOSITORY Order Comment: [place]: TYPE CODE TESTS RESULT OUT OF RANGE REFERENCE UNITS LAB L200.45065 4.5-11.0 K/CU MM Normal WBC 5.4 LAB L200.76119 3.90-5.30 M/CU MM Low RBC 3.16 LAB L200.81918 11.5-15.5 G/DL Low HGB 8.2 LAB L200.80691 35.0-47.0 % Low HCT 26.3 LAB L200.13872 80.0-99.0 fl Normal MCV 83.2 LAB L200.27070 32.0-36.0 GM/DL Low MCHC 31.2 LAB L200.80796 11-14.5 High RDW 16.5 LAB L200.63674 9.4-12.4 Low MPV 8.4 LAB L200.69537 150-450 K/CU MM Normal PLT 326 Result Comment: Confirmed by slide estimate. LAB L200.57664 45-75 % NEUTROPHILS Normal % 65.0 LAB L200.85592 Less than % 2 IMMATURE Normal GRAN % 0.6 LAB L200.85934 20-40 % LYMPH % Normal 21.2 LAB L200.10074 2-10 % High MONOCYTE % 11.5 LAB L200.85236 0-5 % EOSINOPHIL Normal % 1.3 LAB L200.18133 0-2 % BASOPHIL % Normal 0.4 LAB L200.36967 2.0-8.3 K/CU MM NEUTROPHIL Normal ABS 3.50 LAB L200.40926 Less than K/CU MM 2 IMMATR GRAN Normal ABS 0.00 LAB L200.05571 0.9-4.4 K/CU MM LYMPH ABS Normal 1.10 LAB L200.38800 0.1-1.1 K/CU MM MONO ABS Normal 0.60 LAB L200.86318 0-0.5 K/CU MM EOS ABS Normal 0.10 LAB L200.17335 0-0.2 K/CU MM BASO ABS Normal 0.00 LAB L200.93316 Less than % 1 NRBC Normal 0.0 LAB L200.01725 HYPO 1+ Normal LAB L200.58819 PLT EST Normal ADEQUATE Performed By: #### [id number] #### [facility] [address] [place] [address] CMP Collected: 04/15/2018 Status: F Source: [facility] 5:17 AM [facility] REPOSITORY Order Comment: [place]: TYPE CODE TESTS RESULT OUT OF RANGE REFERENCE UNITS LAB L500.52422 136-145 MMOL/L Normal NA 137 LAB L500.35630 3.5-5.1 MMOL/L Normal K 4.0 LAB L500.92440 98-107 MMOL/L Normal CL 100 LAB L500.82330 21-32 MMOL/L Normal CO2 27 LAB L500.39195 5-16 MMOL/L Normal AGAP 9 LAB L500.03805 70-100 MG/DL High GLU 148 Result Comment: 70-100- Normal Fasting; 100-125 Impaired Fasting; greater than 126 on more than one result- Diabetes. ADA guidelines. Results may be falsely elevated after the administration of Sulfapyridine. Results may be falsely depressed after the administration of Sulfasalazine. LAB L500.11304 7-26 MG/DL Normal BUN 11 LAB L500.24360 0.510-0.950 MG/DL Low CREAT 0.409 Result Comment: Patients receiving either N-Acetylcysteine (NAC) or Metamizole prior to venipuncture, may have falsely depressed results. LAB L500.27408 15-24 High BUN/CREA 27 LAB L500.18642 6.0-8.5 GM/DL Low TP 5.2 LAB L500.63267 3.2-5.0 GM/DL Low ALBUMIN 1.4 LAB L500.46742 2.2-4.2 GM/DL Normal GLOBULIN 3.8 LAB L500.00594 0.8-2.0 Low A/G RATIO 0.4 LAB L500.88102 8.5-10.1 MG/DL Low CALCIUM TOTAL 7.6 LAB L500.87861 0.2-1.0 MG/DL Normal BILI TOTAL 0.2 LAB L500.90747 8-34 U/L Normal SGOT (AST) 21 Result Comment: RESULTS MAY BE FALSELY DEPRESSED AFTER THE ADMINISTRATION OF SULFASALAZINE AND/OR SULFAPYRIDINE. LAB L500.72363 13-61 IU/L Low SGPT (ALT) 11 Result Comment: RESULTS MAY BE FALSELY DEPRESSED AFTER THE ADMINISTRATION OF SULFASALAZINE AND/OR SULFAPYRIDINE. LAB L500.57211 45-117 U/L Normal ALK PHOS 95 Performed By: #### L500.57122, L500.04720 #### [facility] [address] [place] [address] GFR EST Collected: 04/15/2018 Status: F Source: [facility] 5:17 AM [facility] REPOSITORY Order Comment: [place]: M TYPE CODE TESTS RESULT OUT OF RANGE REFERENCE UNITS LAB L500.87103 ML/MIN Normal IF non-AFR Greater than AMER 60 LAB L500.77502 ML/MIN Normal IF Greater than AMER 60 Performed By: #### L500.94297, L500.40068 #### [facility] [address] [place] [address] PT Collected: 04/15/2018 Status: F Source: [facility] 5:17 AM [facility] REPOSITORY Order Comment: [place]: M TYPE CODE TESTS RESULT OUT OF RANGE REFERENCE UNITS LAB L300.47980 0.9-1.1 High INR 2.1 Result Comment: 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 For heart valve and shunt patients the range is 2.5 - 3.5. LAB L300.04908 9.4-12.0 SECONDS High 22.4 PTS Performed By: #### L300.20610 #### [facility] [address] [place] [address] CBC W/DIFF Collected: 04/14/2018 Status: F Source: [facility] 6:26 AM [facility] REPOSITORY Order Comment: [place]: M TYPE CODE TESTS RESULT OUT OF RANGE REFERENCE UNITS LAB L200.29137 4.5-11.0 K/CU MM WBC Normal 6.1 LAB L200.53427 3.90-5.30 M/CU MM Low RBC 3.17 LAB L200.28536 11.5-15.5 G/DL Low HGB 8.1 LAB L200.15915 35.0-47.0 % Low HCT 26.8 LAB L200.09367 80.0-99.0 fl MCV Normal 84.5 LAB L200.08346 32.0-36.0 GM/DL Low MCHC 30.2 LAB L200.90369 11-14.5 High RDW 16.2 LAB L200.50370 9.4-12.4 Low MPV 8.4 LAB L200.18920 150-450 K/CU MM PLT Normal 308 LAB L200.97614 45-75 % NEUTROPHILS Normal % 69.4 LAB L200.97465 Less than 2 % IMMATURE Normal GRAN % 0.5 LAB L200.07687 20-40 % Low LYMPH % 18.5 LAB L200.20568 2-10 % High MONOCYTE % 10.6 LAB L200.26542 0-5 % EOSINOPHIL Normal % 0.7 LAB L200.60493 0-2 % BASOPHIL % Normal 0.3 LAB L200.11538 2.0-8.3 K/CU MM NEUTROPHIL Normal ABS 4.20 LAB L200.96619 Less than 2 K/CU MM IMMATR GRAN Normal ABS 0.00 LAB L200.42932 0.9-4.4 K/CU MM LYMPH ABS Normal 1.10 LAB L200.26338 0.1-1.1 K/CU MM MONO ABS Normal 0.60 LAB L200.94288 0-0.5 K/CU MM EOS ABS Normal 0.00 LAB L200.36327 0-0.2 K/CU MM BASO ABS Normal 0.00 LAB L200.25325 Less than 1 % NRBC Normal 0.0 Performed By: #### L200.11324 #### [facility] [place] [address] PT Collected: 04/14/2018 Status: F Source: [facility] 6:26 AM [facility] REPOSITORY Order Comment: [place]: TYPE CODE TESTS RESULT OUT OF RANGE REFERENCE UNITS LAB L300.87471 0.9-1.1 High INR 1.7 Result Comment: 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 For heart valve and shunt patients the range is 2.5 - 3.5. LAB L300.35947 9.4-12.0 SECONDS High 18.5 PTS Performed By: #### L300.12678 #### [facility] [address] [place] [address] CBC Collected: 04/13/2018 Status: F Source: [facility] 5:51 AM [facility] REPOSITORY Order Comment: [place]: M TYPE CODE TESTS RESULT OUT OF RANGE REFERENCE UNITS LAB L200.74171 4.5-11.0 K/CU MM Normal WBC 5.7 LAB L200.87077 3.90-5.30 M/CU MM Low RBC 2.93 LAB L200.99925 11.5-15.5 G/DL Low HGB 7.7 LAB L200.07735 35.0-47.0 % Low HCT 24.6 LAB L200.12881 80.0-99.0 fl Normal MCV 84.0 LAB L200.66923 32.0-36.0 GM/DL Low MCHC 31.3 LAB L200.20654 11-14.5 High RDW 16.2 LAB L200.81419 9.4-12.4 Low MPV 8.4 LAB L200.93568 150-450 K/CU MM Normal PLT 266 LAB L200.32699 Less than 1 % Normal NRBC 0.0 Performed By: #### L200.39399 #### [facility] [address] [place] [address] PT Collected: 04/13/2018 Status: F Source: [facility] 5:51 AM [facility] REPOSITORY Order Comment: [place]: M TYPE CODE TESTS RESULT OUT OF RANGE REFERENCE UNITS LAB L300.85319 0.9-1.1 High INR 1.5 Result Comment: 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 For heart valve and shunt patients the range is 2.5 - 3.5. LAB L300.81411 9.4-12.0 SECONDS High 16.5 PTS Performed By: #### L300.65313 #### [facility] [address] [place] [address] [facility] Collected: 04/13/2018 Status: F Source: [facility] 5:51 AM [facility] REPOSITORY Order Comment: [place]: M TYPE CODE TESTS RESULT OUT OF RANGE REFERENCE UNITS LAB L500.55361 136-145 MMOL/L Normal NA 136 LAB L500.25097 3.5-5.1 MMOL/L Normal K 3.9 LAB L500.95803 98-107 MMOL/L Normal CL 98 LAB L500.80779 21-32 MMOL/L Normal CO2 32 LAB L500.06104 5-16 MMOL/L Normal AGAP 6 LAB L500.11315 70-100 MG/DL High GLU 233 Result Comment: 70-100- Normal Fasting; 100-125 Impaired Fasting; greater than 126 on more than one result- Diabetes. ADA guidelines. Results may be falsely elevated after the administration of Sulfapyridine. Results may be falsely depressed after the administration of Sulfasalazine. LAB L500.58482 7-26 MG/DL Normal BUN 22 LAB L500.64189 0.510-0.950 MG/DL Low CREAT 0.389 Result Comment: Patients receiving either N-Acetylcysteine (NAC) or Metamizole prior to venipuncture, may have falsely depressed results. LAB L500.52137 15-24 High BUN/CREA 57 LAB L500.96202 6.0-8.5 GM/DL Low TP 4.6 LAB L500.61016 3.2-5.0 GM/DL Low ALBUMIN 1.3 LAB L500.18384 2.2-4.2 GM/DL Normal GLOBULIN 3.3 LAB L500.28770 0.8-2.0 Low A/G RATIO 0.4 LAB L500.70233 8.5-10.1 MG/DL Low CALCIUM TOTAL 7.6 LAB L500.97272 0.2-1.0 MG/DL Normal BILI TOTAL 0.2 LAB L500.25603 8-34 U/L Normal SGOT (AST) 17 Result Comment: RESULTS MAY BE FALSELY DEPRESSED AFTER THE ADMINISTRATION OF SULFASALAZINE AND/OR SULFAPYRIDINE. LAB L500.75964 13-61 IU/L Low SGPT (ALT) 9 Result Comment: RESULTS MAY BE FALSELY DEPRESSED AFTER THE ADMINISTRATION OF SULFASALAZINE AND/OR SULFAPYRIDINE. LAB L500.45854 45-117 U/L Normal ALK PHOS 93 Performed By: #### L500.68955, L500.04796 #### [facility] [address] [place], [place] [address] GFR EST Collected: 04/13/2018 Status: F Source: [facility] 5:51 AM [facility] REPOSITORY Order Comment: [place]: M TYPE CODE TESTS RESULT OUT OF RANGE REFERENCE UNITS LAB L500.07643 ML/MIN Normal IF non-AFR Greater than AMER 60 LAB L500.46749 ML/MIN Normal IF Greater than AMER 60 Performed By: #### L500.72441, L500.28316 #### [facility] [address] [place] [address] UA COMPLETE Collected: 04/13/2018 Status: F Source: [facility] 5:38 AM [facility] REPOSITORY Order Comment: [place]: M TYPE CODE TESTS RESULT OUT OF REFERENCE UNITS RANGE LAB L600.06021 UA COLOR Normal Yellow LAB L600.12220 CLEAR UA Normal APPEARANCE Hazy LAB L600.84363 1.005-1.030 UA SPEC Normal GRAV 1.010 LAB L600.68854 UA PH Normal 7.0 LAB L600.20402 UA GLUCOSE Normal NEG LAB L600.75678 UA KETONE Normal NEGATIVE LAB L600.56884 UA Normal BILIRUBIN NEGATIVE LAB L600.22815 UA Normal UROBILINOGEN NEG LAB L600.85367 NEGATIVE UA PROTEIN Normal NEGATIVE LAB L600.39146 NEGATIVE UA BLOOD Normal NEGATIVE LAB L600.84189 NEGATIVE UA NITRITE Normal NEGATIVE LAB L600.33450 NEGATIVE UA LK Normal ESTERASE 75 LAB L600.11976 0-5 WBC/HPF UA WBC Normal 4 LAB L600.26287 0-3 RBC/HPF UA RBC Normal 3 LAB L600.77071 0-5 EPI/HPF SQUAMOUS Normal EPIS 0 LAB L600.97556 NONE /HPF UA BACTERIA Normal TRACE LAB L600.42362 MUCUS Normal TRACE LAB L600.72591 0-1 /LPF HYALINE Normal CAST 1 Performed By: #### L600.86580 #### [facility] [address] [place], [place] [address] Observed: 04/12/2018 Status: F Source: [facility] URINE CULTURE 6:00 PM [facility] REPOSITORY Order Comment: [place]: M Streptomycin Synergy Screen S Gentamicin Synergy Screen S RESULTS CALLED TO LTAC/NEW PALACIOS AT 1403 04/16/18 BY VENITA CHO ORGANISM 1: VANC. RESISTANT E. FAECIUM COLONY COUNT 15,000 - 20,000 VANC. RESISTANT E. FAECIUM: REACTION AMPICILLIN >8 R CHLORAMPHENICOL <8 S ERYTHROMYCIN >4 R GENTAMICIN SYNERGY SCREEN <500 S LINEZOLID 2 S NITROFURANTOIN <32 S PENICILLIN >8 R RIFAMPIN >2 R STREPTOMYCIN SYNERGY SCREEN <1000 S VANCOMYCIN >16 R LEVOFLOXACIN >4 R DAPTOMYCIN 2 S Performed By: #### M100.86211 #### [facility] [address] [place] [address] PT Collected: 04/12/2018 Status: F Source: [facility] 4:12 AM [facility] REPOSITORY Order Comment: [place]: M TYPE CODE TESTS RESULT OUT OF RANGE REFERENCE UNITS LAB L300.98941 0.9-1.1 High INR 1.5 Result Comment: 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 For heart valve and shunt patients the range is 2.5 - 3.5. LAB L300.59275 9.4-12.0 SECONDS High 15.7 PTS Performed By: #### L300.08818 #### [facility] [address] [place] [address] CBC W/DIFF Collected: 04/12/2018 Status: F Source: [facility] 4:12 AM [facility] REPOSITORY Order Comment: [place]: M TYPE CODE TESTS RESULT OUT OF RANGE REFERENCE UNITS LAB L200.16010 4.5-11.0 K/CU MM Normal WBC 7.3 LAB L200.59095 3.90-5.30 M/CU MM Low RBC 2.67 LAB L200.59637 11.5-15.5 G/DL Low HGB 7.0 Result Comment: Repeated and verified. LAB L200.44129 35.0-47.0 % Low HCT 22.5 LAB L200.67514 80.0-99.0 fl MCV Normal 84.3 LAB L200.99203 32.0-36.0 GM/DL Low MCHC 31.1 LAB L200.53807 11-14.5 High RDW 16.3 LAB L200.47929 9.4-12.4 Low MPV 8.5 LAB L200.30327 150-450 K/CU MM PLT Normal 272 LAB L200.55351 45-75 % High NEUTROPHILS % 76.0 LAB L200.47058 Less than 2 % IMMATURE Normal GRAN % 0.3 LAB L200.01949 20-40 % Low LYMPH % 13.5 LAB L200.38218 2-10 % MONOCYTE % Normal 8.9 LAB L200.46591 0-5 % EOSINOPHIL Normal % 1.0 LAB L200.07203 0-2 % BASOPHIL % Normal 0.3 LAB L200.45093 2.0-8.3 K/CU MM NEUTROPHIL Normal ABS 5.60 LAB L200.53048 Less than 2 K/CU MM IMMATR GRAN Normal ABS 0.00 LAB L200.47539 0.9-4.4 K/CU MM LYMPH ABS Normal 1.00 LAB L200.73882 0.1-1.1 K/CU MM MONO ABS Normal 0.70 LAB L200.99147 0-0.5 K/CU MM EOS ABS Normal 0.10 LAB L200.81004 0-0.2 K/CU MM BASO ABS Normal 0.00 LAB L200.06672 Less than 1 % NRBC Normal 0.0 Performed By: #### L200.08332 #### [facility] [place] [address] CMP Collected: 04/12/2018 Status: F Source: [facility] 4:12 AM [facility] REPOSITORY Order Comment: [place]: TYPE CODE TESTS RESULT OUT OF RANGE REFERENCE UNITS LAB L500.72041 136-145 MMOL/L Normal NA 138 LAB L500.11742 3.5-5.1 MMOL/L Low K 3.4 LAB L500.56612 98-107 MMOL/L Low CL 97 LAB L500.40317 21-32 MMOL/L High CO2 33 LAB L500.51471 5-16 MMOL/L Normal AGAP 7 LAB L500.21994 70-100 MG/DL High GLU 160 Result Comment: 70-100- Normal Fasting; 100-125 Impaired Fasting; greater than 126 on more than one result- Diabetes. ADA guidelines. Results may be falsely elevated after the administration of Sulfapyridine. Results may be falsely depressed after the administration of Sulfasalazine. LAB L500.83748 7-26 MG/DL Normal BUN 20 LAB L500.42616 0.510-0.950 MG/DL Low CREAT 0.461 Result Comment: Patients receiving either N-Acetylcysteine (NAC) or Metamizole prior to venipuncture, may have falsely depressed results. LAB L500.29153 15-24 High BUN/CREA 43 LAB L500.46940 6.0-8.5 GM/DL Low TP 4.7 LAB L500.00234 3.2-5.0 GM/DL Low ALBUMIN 1.4 LAB L500.77858 2.2-4.2 GM/DL Normal GLOBULIN 3.3 LAB L500.97788 0.8-2.0 Low A/G RATIO 0.4 LAB L500.60580 8.5-10.1 MG/DL Low CALCIUM TOTAL 7.6 LAB L500.26056 0.2-1.0 MG/DL Normal BILI TOTAL 0.3 LAB L500.33906 8-34 U/L Normal SGOT (AST) 13 Result Comment: RESULTS MAY BE FALSELY DEPRESSED AFTER THE ADMINISTRATION OF SULFASALAZINE AND/OR SULFAPYRIDINE. LAB L500.86654 13-61 IU/L Low SGPT (ALT) 9 Result Comment: RESULTS MAY BE FALSELY DEPRESSED AFTER THE ADMINISTRATION OF SULFASALAZINE AND/OR SULFAPYRIDINE. LAB L500.73993 45-117 U/L Normal ALK PHOS 102 Performed By: #### L500.01559, L500.41991 #### [facility] [place] [address] GFR EST Collected: 04/12/2018 Status: F Source: [facility] 4:12 AM [facility] REPOSITORY Order Comment: [place]: TYPE CODE TESTS RESULT OUT OF RANGE REFERENCE UNITS LAB L500.59971 ML/MIN Normal IF non-AFR Greater than AMER 60 LAB L500.24419 ML/MIN Normal IF Greater than AMER 60 Performed By: #### L500.41344, L500.15730 #### [facility] [address] [place] [address] TS Collected: 04/12/2018 Status: F Source: [facility] 4:12 AM [facility] REPOSITORY Order Comment: PCLP ready - called to JEZ at 1106 04/12/18 by MERLIN LINDQUIST [place]: M Patient transfused or in the past 3 months: YES Is This Patient Going To Surgery? N Tranfuse Now? Y Irradiated: N Transfuse slowly @ 60mL/hr x15min, then increase to infuse: Over 4 Hours Non - Acute Hemorrhage Indication: Hgb <7 g/dL TYPE CODE TESTS RESULT OUT OF RANGE REFERENCE UNITS LAB B100.0400 A Normal BLOOD TYPE POSITIVE LAB B100.0680 Normal ANTIBODY NEGATIVE SCREEN RBC NO ACT Collected: 04/12/2018 Status: F Source: [facility] 4:12 AM [facility] TYPE CODE TESTS RESULT OUT OF REFERENCE UNITS RANGE LAB U800.0005 RBC TRANSFUSED NO ACT PRODUCT: RBC NO ACTIVE BLEED COUNT: 1 PROG.NOTE Observed: 04/11/2018 Status: UNK Source: [facility] 12:44 PM [facility] REPOSITORY [facility] Patient Name: VENITA SMITH [address] [place] [address] Date of : [address] [address] Unit Number: [id number] Progress Note-Physician Patient Status: REG RCR Attending Doctor: Dimitri Smith MD Service Date: 04/11/18 1244 See Addendum Subjective S: (2 ROS minimum) Feeling ok, no fever, no n/v/d, minimal abd pain. Objective (ROS) Physical Exam Neurological / Psychiatric Alert Respiratory Normal Breathing Effort, Clear Lungs Cardiovascular Heart RRR, No M / R / G Gastrointestinal No Mass, minimal lower abd tenderness Skin LLE wrapped Assessment and Plan Conclusion 1. Osteomyelitis Doing well, reviewed labs and vitals. 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 - continue meropenem. Plan on at least 6 week course. Completed course of vori 04/01. - Repeat CT showed unchanged abd abscess, colitis, and ? cholecystitis. Surgery following , plan on abscess drainage eventually. Plan on long course of po abx until abscess can be addressed. - Repeat wound cx with Acinetobacter, R to meropenem, and gamma strep. Added po doxy and iv cipro due to fever. Now improved and taken to OR 04/05 for LLE closure. Planned stop date 04/16. - on course of fluc for vaginal discharge. Will follow. 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 No improvement with fluconazole so far. Disclaimer This dictation was created using voice recognition software. Phonetic and/or minor grammatical errors may exist. eSign Date and Time Syeda Palmer MD Verified/Reviewed by 04/11/18 1300 CMP Collected: 04/11/2018 Status: F Source: [facility] 5:47 AM [facility] REPOSITORY Order Comment: [place]: TYPE CODE TESTS RESULT OUT OF RANGE REFERENCE UNITS LAB L500.26544 136-145 MMOL/L Normal NA 139 LAB L500.58465 3.5-5.1 MMOL/L Normal K 3.8 Result Comment: Moderate Hemolysis, Result may be falsely increased. LAB L500.02947 98-107 MMOL/L Normal CL 98 LAB L500.51471 21-32 MMOL/L High CO2 34 LAB L500.72510 5-16 MMOL/L Normal AGAP 7 LAB L500.30905 70-100 MG/DL Low GLU 68 Result Comment: 70-100- Normal Fasting; 100-125 Impaired Fasting; greater than 126 on more than one result- Diabetes. ADA guidelines. Results may be falsely elevated after the administration of Sulfapyridine. Results may be falsely depressed after the administration of Sulfasalazine. LAB L500.65937 7-26 MG/DL Normal BUN 19 LAB L500.97366 0.510-0.950 MG/DL Low CREAT 0.409 Result Comment: Patients receiving either N-Acetylcysteine (NAC) or Metamizole prior to venipuncture, may have falsely depressed results. LAB L500.07076 15-24 High BUN/CREA 46 LAB L500.67513 6.0-8.5 GM/DL Low TP 5.0 LAB L500.36067 3.2-5.0 GM/DL Low ALBUMIN 1.4 LAB L500.03657 2.2-4.2 GM/DL Normal GLOBULIN 3.6 LAB L500.29515 0.8-2.0 Low A/G RATIO 0.4 LAB L500.32699 8.5-10.1 MG/DL Low CALCIUM TOTAL 7.9 LAB L500.00046 0.2-1.0 MG/DL Normal BILI TOTAL 0.4 LAB L500.09823 8-34 U/L Normal SGOT (AST) 23 Result Comment: Moderate Hemolysis, Result may be falsely increased. RESULTS MAY BE FALSELY DEPRESSED AFTER THE ADMINISTRATION OF SULFASALAZINE AND/OR SULFAPYRIDINE. LAB L500.37049 13-61 IU/L Low SGPT (ALT) 8 Result Comment: RESULTS MAY BE FALSELY DEPRESSED AFTER THE ADMINISTRATION OF SULFASALAZINE AND/OR SULFAPYRIDINE. LAB L500.96060 45-117 U/L Normal ALK PHOS 114 Performed By: #### L500.23772, L500.34082 #### [facility] [address] [place] [address] GFR EST Collected: 04/11/2018 Status: F Source: [facility] 5:47 AM [facility] REPOSITORY Order Comment: [place]: M TYPE CODE TESTS RESULT OUT OF RANGE REFERENCE UNITS LAB L500.69319 ML/MIN Normal IF non-AFR Greater than AMER 60 LAB L500.36662 ML/MIN Normal IF Greater than AMER 60 Performed By: #### L500.83864, L500.57566 #### [facility] [address] [place] [address] CBC W/DIFF Collected: 04/11/2018 Status: F Source: [facility] 5:46 AM [facility] REPOSITORY Order Comment: [place]: M TYPE CODE TESTS RESULT OUT OF RANGE REFERENCE UNITS LAB L200.39895 4.5-11.0 K/CU MM WBC Normal 5.4 LAB L200.12713 3.90-5.30 M/CU MM Low RBC 3.02 LAB L200.88842 11.5-15.5 G/DL Low HGB 7.6 LAB L200.09873 35.0-47.0 % Low HCT 25.5 LAB L200.80365 80.0-99.0 fl MCV Normal 84.4 LAB L200.44402 32.0-36.0 GM/DL Low MCHC 29.8 LAB L200.04412 11-14.5 High RDW 16.7 LAB L200.81015 9.4-12.4 Low MPV 8.7 LAB L200.78808 150-450 K/CU MM PLT Normal 269 LAB L200.58363 45-75 % NEUTROPHILS Normal % 71.8 LAB L200.79655 Less than 2 % IMMATURE Normal GRAN % 0.4 LAB L200.66967 20-40 % Low LYMPH % 17.4 LAB L200.85874 2-10 % MONOCYTE % Normal 8.9 LAB L200.22564 0-5 % EOSINOPHIL Normal % 1.1 LAB L200.97386 0-2 % BASOPHIL % Normal 0.4 LAB L200.57690 2.0-8.3 K/CU MM NEUTROPHIL Normal ABS 3.90 LAB L200.44524 Less than 2 K/CU MM IMMATR GRAN Normal ABS 0.00 LAB L200.48429 0.9-4.4 K/CU MM LYMPH ABS Normal 0.90 LAB L200.94728 0.1-1.1 K/CU MM MONO ABS Normal 0.50 LAB L200.67387 0-0.5 K/CU MM EOS ABS Normal 0.10 LAB L200.52794 0-0.2 K/CU MM BASO ABS Normal 0.00 LAB L200.02987 Less than 1 % NRBC Normal 0.0 Performed By: #### L200.07591 #### [facility] [address] [place] [address] PT Collected: 04/11/2018 Status: F Source: [facility] 5:46 AM [facility] REPOSITORY Order Comment: [place]: TYPE CODE TESTS RESULT OUT OF RANGE REFERENCE UNITS LAB L300.38888 0.9-1.1 High INR 1.5 Result Comment: 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 For heart valve and shunt patients the range is 2.5 - 3.5. LAB L300.26682 9.4-12.0 SECONDS High 16.6 PTS Performed By: #### L300.95019 #### [facility] [address] [place] [address] Observed: 04/10/2018 Status: F Source: [facility] BODY FLD 2:25 PM [facility] REPOSITORY Order Comment: [place]: Streptomycin Synergy Screen S Gentamicin Synergy Screen S THE PATIENT NEEDS TO BE PUT IN ISOLATION Streptomycin Synergy Screen S Gentamicin Synergy Screen S THE PATIENT NEEDS TO BE PUT IN ISOLATION RESULTS CALLED TO AND READ BACK BY CATRACHITO RN 6M AT 1010 04/14/18 BY KIMBERLY DAVIS ADDED RIGHT RESULT AFTER RECEIVING SPECIMEN * This is a corrected result. * A prior result that was reported as final has been changed. * This is a corrected result. * A prior result that was reported as final has been changed. GRAM STAIN RARE WBC'S RARE GRAM POSITIVE COCCI RARE GRAM POSITIVE BACILLUS ADDED CALL INFORMATION ORGANISM 1: VANC. RESISTANT E. FAECIUM QUANTITATION MODERATE VANC. RESISTANT E. FAECIUM: REACTION AMPICILLIN >8 R CHLORAMPHENICOL <8 S ERYTHROMYCIN >4 R GENTAMICIN SYNERGY SCREEN <500 S LINEZOLID 2 S PENICILLIN >8 R RIFAMPIN >2 R STREPTOMYCIN SYNERGY SCREEN <1000 S TETRACYCLINE >8 R VANCOMYCIN >16 R LEVOFLOXACIN >4 R DAPTOMYCIN 2 S Performed By: #### M100.34644 #### [facility] [address] [place] [address] PT Collected: 04/10/2018 Status: F Source: [facility] 4:32 AM [facility] REPOSITORY Order Comment: [place]: M TYPE CODE TESTS RESULT OUT OF RANGE REFERENCE UNITS LAB L300.40574 0.9-1.1 High INR 1.8 Result Comment: 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 For heart valve and shunt patients the range is 2.5 - 3.5. LAB L300.41975 9.4-12.0 SECONDS High 19.4 PTS Performed By: #### L300.91977 #### [facility] [address] [place] [address] CBC Collected: 04/09/2018 Status: F Source: [facility] 5:21 AM [facility] REPOSITORY Order Comment: [place]: M TYPE CODE TESTS RESULT OUT OF RANGE REFERENCE UNITS LAB L200.46572 4.5-11.0 K/CU MM Normal WBC 6.0 LAB L200.56107 3.90-5.30 M/CU MM Low RBC 3.53 LAB L200.15871 11.5-15.5 G/DL Low HGB 8.9 LAB L200.61499 35.0-47.0 % Low HCT 29.8 LAB L200.77440 80.0-99.0 fl Normal MCV 84.4 LAB L200.71979 32.0-36.0 GM/DL Low MCHC 29.9 LAB L200.72253 11-14.5 High RDW 16.9 LAB L200.56275 9.4-12.4 Low MPV 8.4 LAB L200.04411 150-450 K/CU MM Normal PLT 244 LAB L200.51735 Less than 1 % Normal NRBC 0.0 Performed By: #### L200.40482 #### [facility] [address] [place] [address] PT Collected: 04/09/2018 Status: F Source: [facility] 5:21 AM [facility] REPOSITORY Order Comment: [place]: M TYPE CODE TESTS RESULT OUT OF RANGE REFERENCE UNITS LAB L300.34970 0.9-1.1 High INR 1.3 Result Comment: Recommended PT INR therapeutic range for detention and prophylactic therapy is 2.0 - 3.0. For heart valve and shunt patients the range is 2.5 - 3.5. LAB L300.56017 9.4-12.0 SECONDS High 14.0 PTS Performed By: #### L300.89959 #### [facility] [address] [place] [address] PROG.NOTE Observed: 04/08/2018 Status: UNK Source: [facility] 12:09 PM [facility] [place] REPOSITORY [facility] Patient Name: VENITA SMITH [address] [place] [address] Date of : [address] [address] Unit Number: [id number] Progress Note-Physician Patient Status: REG RCR Attending Doctor: Dimitri Smith MD Service Date: 04/08/18 1209 Subjective S: (2 ROS minimum) Nursing reports several days of heavy spangler vaginal discharge. Pt denies any pain or itching. No fever. No abd pain. Objective (ROS) Physical Exam Neurological / Psychiatric Alert Respiratory Normal Breathing Effort, Clear Lungs Cardiovascular Heart RRR, No M / R / G Gastrointestinal Non Tender, No Mass Skin No Rash, LLE doing well since OR Assessment and Plan Conclusion 1. Osteomyelitis Plan Doing well, reviewed labs and vitals. 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 - continue meropenem. Plan on at least 6 week course. Completed course of vori 04/01. - CT abd/pelvis showed suspected cholecystitis and pericolic abscess. Surgery consulted, no plans for surgical intervention. Will need repeat abd imaging prior to stopping abx at end of this month, will order for now. - Repeat wound cx with Acinetobacter, R to meropenem, and gamma strep. Added po doxy and iv cipro due to fever. Now improved and taken to OR 04/05 for LLE closure. Planned stop date 04/16. - cx vaginal drainage and give course of fluc to see if this helps Will follow. D/w nursing. Disclaimer This dictation was created using voice recognition software. Phonetic and/or minor grammatical errors may exist. eSign Date and Time Syeda Palmer MD Verified/Reviewed by 04/08/18 1211 PT Collected: 04/08/2018 Status: F Source: [facility] 4:43 AM [facility] REPOSITORY Order Comment: [place]: M TYPE CODE TESTS RESULT OUT OF RANGE REFERENCE UNITS LAB L300.57187 0.9-1.1 Normal INR 1.1 Result Comment: Recommended PT INR therapeutic range for detention and prophylactic therapy is 2.0 - 3.0. For heart valve and shunt patients the range is 2.5 - 3.5. LAB L300.05660 9.4-12.0 SECONDS Normal PTS 12.0 Performed By: #### L300.19396 #### [facility] [address] [place] [address] PT Collected: 04/07/2018 Status: F Source: [facility] 5:36 AM [facility] REPOSITORY Order Comment: [place]: M TYPE CODE TESTS RESULT OUT OF RANGE REFERENCE UNITS LAB L300.80981 0.9-1.1 Normal INR 1.1 Result Comment: Recommended PT INR therapeutic range for detention and prophylactic therapy is 2.0 - 3.0. For heart valve and shunt patients the range is 2.5 - 3.5. LAB L300.74227 9.4-12.0 SECONDS Normal PTS 11.8 Performed By: #### L300.22047 #### [facility] [address] [place] [address] PT Collected: 04/06/2018 Status: F Source: [facility] 5:44 AM [facility] REPOSITORY Order Comment: [place]: M TYPE CODE TESTS RESULT OUT OF RANGE REFERENCE UNITS LAB L300.54050 0.9-1.1 Normal INR 1.1 Result Comment: 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 For heart valve and shunt patients the range is 2.5 - 3.5. LAB L300.47998 9.4-12.0 SECONDS Normal PTS 11.9 Performed By: #### L300.74929 #### [facility] [address] [place] [address] PROG.NOTE Observed: 04/05/2018 Status: UNK Source: [facility] 2:27 PM CENTER CANT REPOSITORY [facility] Patient Name: VENITA SMITH [employer] [facility] Date of : [address] [address] Unit Number: [id number] Progress Note-Physician Patient Status: REG RCR Attending Doctor: Dimitri Smith MD Service Date: 04/05/18 1427 Subjective S: (2 ROS minimum) Feeling ok s/p OR, no fever, no n/v/d or abd pain. Objective (ROS) Physical Exam Neurological / Psychiatric Alert Respiratory Normal Breathing Effort, Clear Lungs Cardiovascular Heart RRR, No M / R / G Gastrointestinal Non Tender, No Mass Skin LLE wrapped. Assessment and Plan Conclusion 1. Osteomyelitis Plan Doing well, reviewed labs and vitals. 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 - continue meropenem. Plan on at least 6 week course. Completed course of vori 04/01. - Transaminitis resolved, but CT abd/pelvis showed suspected cholecystitis and pericolic abscess. Surgery consulted, no plans for surgical intervention. Will need repeat abd imaging prior to stopping abx at end of this month. - Repeat wound cx with Acinetobacter, R to meropenem, and gamma strep. Added po doxy and iv cipro due to fever. Now improved and taken to OR 04/05 for LLE closure. Will follow. Disclaimer This dictation was created using voice recognition software. Phonetic and/or minor grammatical errors may exist. eSign Date and Time Syeda Palmer MD Verified/Reviewed by 04/05/18 1428 GLUCOSE METER Collected: 04/05/2018 Status: F Source: [facility] 11:51 AM [facility] REPOSITORY TYPE CODE TESTS RESULT OUT OF REFERENCE UNITS RANGE LAB L500.35306 85-125 MG/DL High GLUCOSE METER 233 Observed: 04/05/2018 Status: F Source: [facility] SURG TISSUE 10:30 AM [facility] REPOSITORY Order Comment: [place]: M : 2. ANAEROBIC CULTURE LEFT LEG WOUND : 1. AEROBIC CULTURE LEFT LEG WOUND CRITICAL VALUE(S) VERIFIED AND CALLED TO AND READ BACK BY Mihaela SHAH/Efraín AT 1454 04/07/18 BY DELVIS MALLOY CRITICAL VALUE(S) VERIFIED AND CALLED TO AND READ BACK BY Mihaela SHAH/6M AT 1454 04/07/18 BY DELVIS MALLOY CRITICAL VALUE(S) VERIFIED AND CALLED TO AND READ BACK BY Mihaela SHAH/6M AT 1454 18 BY DELVIS MALLOY Streptomycin Synergy Screen S Gentamicin Synergy Screen S THIS ORGANISM IS INTRINSICALLY RESISTANT TO THE ANTIBIOTIC VANCOMYCIN BECAUSE IT CONTAINS THE VAN-C GENOTYPE. GRAM STAIN FEW WBC'S RARE GRAM POSITIVE COCCI ORGANISM 1: ACINETOBACTER BAUMANNII/HAEMOL QUANTITATION FEW ACINETOBACTER BAUMANNII/HAEMOL: REACTION AMIKACIN >32 R AMP/SULBACTAM (UNASYN) 16/8 I CEFEPIME >16 R CEFOTAXIME 32 I CIPROFLOXACIN <1 S GENTAMICIN 8 I TETRACYCLINE <4 S TOBRAMYCIN <4 S TRIMETH/SULFA <2/38 S LEVOFLOXACIN <2 S MEROPENEM >8 R ORGANISM 2: STAPHYLOCOCCUS EPIDERMIDIS QUANTITATION FEW STAPHYLOCOCCUS EPIDERMIDIS: REACTION AMPICILLIN 4 R AMP/SULBACTAM (UNASYN) <8/4 R AUGMENTIN (AMOX/K CLVULANATE) <4/2 R CEFAZOLIN <8 R CHLORAMPHENICOL <8 S CLINDAMYCIN 2 I ERYTHROMYCIN >4 R GENTAMICIN <4 S IMIPENEM <4 R LINEZOLID <1 S OXACILLIN >2 R PENICILLIN 8 R RIFAMPIN <1 S TETRACYCLINE >8 R TRIMETH/SULFA >2/38 R VANCOMYCIN 2 S LEVOFLOXACIN >4 R MEROPENEM <4 R DAPTOMYCIN <0.5 S MOXIFLOXACIN >4 R ORGANISM 3: ENTEROCOCCUS DURANS/HIRAE QUANTITATION RARE ENTEROCOCCUS DURANS/HIRAE: REACTION AMPICILLIN >8 R CHLORAMPHENICOL <8 S ERYTHROMYCIN >4 R GENTAMICIN SYNERGY SCREEN <500 S LINEZOLID <1 S PENICILLIN >8 R RIFAMPIN 2 I STREPTOMYCIN SYNERGY SCREEN <1000 S TETRACYCLINE 8 I VANCOMYCIN >16 R LEVOFLOXACIN >4 R DAPTOMYCIN 2 S Performed By: #### M100.26914, M100.94601 #### [facility] [address] [place] [address] Observed: 04/05/2018 Status: F Source: [facility] CULTURE 10:30 AM [facility] REPOSITORY Order Comment: [place]: M : 2. ANAEROBIC CULTURE LEFT LEG WOUND : 1. AEROBIC CULTURE LEFT LEG WOUND CRITICAL VALUE(S) VERIFIED AND CALLED TO AND READ BACK BY Mihaela GOMES AT 1454 18 BY DELVIS MALLOY CRITICAL VALUE(S) VERIFIED AND CALLED TO AND READ BACK BY Mihaela POST6M AT 1454 18 BY DELVIS MALLOY CRITICAL VALUE(S) VERIFIED AND CALLED TO AND READ BACK BY Mihaela POST6M AT 1454 18 BY DELVIS MALLOY Streptomycin Synergy Screen S Gentamicin Synergy Screen S THIS ORGANISM IS INTRINSICALLY RESISTANT TO THE ANTIBIOTIC VANCOMYCIN BECAUSE IT CONTAINS THE VAN-C GENOTYPE. RESULT NO GROWTH OF ANAEROBES Performed By: #### M100.85074, M100.82831 #### [facility] [address] [place] [address]# [phone] LTACHSP Observed: 04/05/2018 Status: UNK Source: [facility] 8:00 AM [facility] REPOSITORY DATE OF SERVICE: 04/18/2018 SURGEON: Herbert Antunez MD ANESTHESIA: None. PREOPERATIVE DIAGNOSIS: Pressure ulcer sacral area, stage 4. POSTOPERATIVE DIAGNOSIS: Pressure ulcer sacral area, stage 4. OPERATIVE PROCEDURE: Excisional debridement of the skin and subcutaneous tissue and necrotic muscle; area 20 sq cm. OPERATIVE FINDING AND INDICATION: The patient has a very large pressure ulcer in the sacral area with a large amount of soft and necrotic tissue present around the edges as well as at the base, which required some debridement. The ulcer originally measured about 11 x 8 cm in size with a large amount of slough present around the upper skin margin as well as at the base. DESCRIPTION PROCEDURE: The patient was turned over to the lateral side. The area was prepared . Using sharp scissors and forceps, excisional debridement of the skin, subcutaneous tissues, underlying necrotic muscle and deep subcutaneous tissue was carried out. Most of the slough and necrotic tissue which could be removed was done. No active bleeding was encountered except for a very small area of ooze which was controlled with gentle pressure. The rest of the area showed fairly good, clean surfaces, so the rest of the wound was not debrided. A total area subsequently debrided was 20 sq cm. The wound was then dressed. The patient was advised to continue with the wound VAC therapy and we will follow the patient accordingly. At the same time, most of the dressing from the leg was removed, which showed a good healing graft as well as the skin edges, which seems to be getting smaller in closure. We will continue with the dressings and we will follow the patient accordingly and will start with the wound VAC on the sacral area. Herbert Antunez MD [id number] SSI File#: [id number] Verified/Reviewed by [facility] PATIENT NAME: VENITA SMITH [facility] Dr. [address] MEDICAL REC #: [id number] [place] [address] ADMIT DATE: DISCHARGE DATE: ATTENDING PHY: Herbert Antunez MD GLUCOSE METER Collected: 04/05/2018 Status: F Source: [facility] 7:45 AM [facility] REPOSITORY TYPE CODE TESTS RESULT OUT OF REFERENCE UNITS RANGE LAB L500.12536 85-125 MG/DL High GLUCOSE METER 200 OR Observed: 04/05/2018 Status: UNK Source: [facility] 7:30 AM [facility] REPOSITORY DATE OF SERVICE: 04/05/2018 SURGEON: Herbert Antunez MD ANESTHESIA: General endotracheal. MANAGER SIMULATION: Tong Dawson DO, Jacquelyn Marshall, CRNA PREOPERATIVE DIAGNOSES: 1. Open wound of the left thigh size 8 x 2 inches. 2. Open wound of the left lower leg size 8 x 3 inches. 3. Open wound of the left lower leg size 4 x 5 inches. POSTOPERATIVE DIAGNOSES: 1. Open wound of the left thigh size 8 x 2 inches. 2. Open wound of the left lower leg size 8 x 3 inches. 3. Open wound of the left lower leg size 4 x 5 inches. OPERATIVE PROCEDURE: 1. Excisional debridement and secondary closure of wound of the left thigh as a complex wound repair. 2. Debridement and secondary closure wound of the left lower leg as a complex wound repair. 3. Application of TheraSkin graft, extra-large, to the open wound of the left lower leg. OPERATIVE FINDING AND INDICATION: The patient had an open- heart surgery on February 15 of this year, developed wound infection. Veins were harvested in the left lower leg. The wound was debrided at [facility] and then she was transferred over to [facility]. At that time, the surgeon had done extensive debridement with application of a wound VAC therapy. The patient is now being evaluated for debridement and secondary closure of the wound. There are large open wounds measuring 8 x 2 inches on the thigh, 8 x 3 inches in the left lower leg and an open wound measuring about 4 x 5 inches on the middle of the left lower leg where extensive debridement had been carried out DESCRIPTION PROCEDURE: The patient was put supine on the operating table. General endotracheal anesthesia was carried out. The left leg was then thoroughly prepared with betadine scrub and draped with sterile towels and sheets. She was given 1 g of Ancef during the procedure. Using a sharp curette, excisional debridement of the skin, subcutaneous tissues, all the slough and necrotic tissues were removed from the wounds of the left thigh, the left lower leg. A moderate amount of bleeding was encountered which was controlled with electrocoagulation. After the wound was thoroughly debrided, the wound edges were thoroughly irrigated [facility] PATIENT NAME: JESUS SMITH[address] MEDICAL REC #: [id number] [place] [address] ADMIT DATE: DISCHARGE DATE: OPERATIVE REPORT ATTENDING PHY: Herbert Antunez MD with normal saline and then edges were brought together with Nurolon 0 silk tie over dressings over a bolster to keep the wound edges together with minimal tension. Closure was carried out of the thigh with 4x4 gauze sponges on the left lower leg. The open wound was closed with approximating the skin edges and bringing them together with Nurolon sutures over Xeroform gauze and satisfactory closure was obtained. The large open wound of the leg was debrided. We could use a skin graft or TheraSkin. Since the wound was fairly large and the skin graft would have left another open area on the thigh and because of her multiple medical problems, it was decided to not to create at this time but to use TheraSkin which would be a skin substitute to cover the area. An extra-large piece of TheraSkin was then used to cover the entire area on the left lower leg measuring 4 x [address] inches and [address] in place with mattress precious. The other areas were covered with either primary closure or TheraSkin. Sterile dressing with a compression dressing was applied. Estimated blood loss was about 50 mL. The patient tolerated the procedure well and left the operating room in good condition. NARRATION OF SUMMARY: This is a 67-year-old lady who had an open-heart surgery on February 15 at [facility]. Later was transferred to [facility] from [facility] where she had undergone some extensive debridement and large open wounds were noticed. She was kept in [facility] for some time. The wounds were dressed with wound VAC therapy but it appeared that the patient developed some infections. The wound VACs were discontinued as saline compresses were used until the area appeared to be fairly clean. At that time, it was decided the patient can be primarily closed in some areas and the rest of the area can be covered with a skin graft. The patient has been on numerous medications. She is also diabetic with heart problems as well as high blood pressures. Once the patient was stabilized and medically cleared, she was brought back to [facility] where she was taken to surgery as an ambulatory patient, underwent extensive debridement and application of a TheraSkin to a large area and secondary closure of the wounds of the thigh was carried out. The patient did very well. The wound appeared well approximated. Open areas were covered with TheraSkin. The patient tolerated the procedure well and was taken to recovery room for a short time and then was later transferred to [facility] where she will be followed and stayed there at [facility] until she is recovered. The patient also has a pressure ulcer on the sacral area which also may be addressed at a later time. The patient was advised to continue with her own medications and I will change her dressing about 3 days to see the wound effect. Herbert Antunez MD [id number] [facility] PATIENT NAME: VENITA SMITH Annita [address] MEDICAL REC #: [id number] [place] [address] ADMIT DATE: DISCHARGE DATE: OPERATIVE REPORT ATTENDING PHY: Herbert Antunez MD SSI File#: [id number] Verified/Reviewed by 04/08/18 Flavia LOZANO [facility] PATIENT NAME: VENITA SMITH [facility] Dr. [address] MEDICAL REC #: [id number] [place] [address] ADMIT DATE: DISCHARGE DATE: OPERATIVE REPORT ATTENDING PHY: Herbert Antunez MD PT Collected: 04/05/2018 Status: F Source: [facility] 4:09 AM [facility] REPOSITORY Order Comment: [place]: TYPE CODE TESTS RESULT OUT OF RANGE REFERENCE UNITS LAB L300.25117 0.9-1.1 High INR 1.2 Result Comment: 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 For heart valve and shunt patients the range is 2.5 - 3.5. LAB L300.29365 9.4-12.0 SECONDS High 12.4 PTS Performed By: #### L300.05295 #### [facility] [address] [place] [address]# [phone] PT Collected: 04/04/2018 Status: F Source: [facility] 4:20 AM [facility]ENTER [facility]ANT REPOSITORY Order Comment: [place]: M TYPE CODE TESTS RESULT OUT OF RANGE REFERENCE UNITS LAB L300.70595 0.9-1.1 High INR 1.4 Result Comment: 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 For heart valve and shunt patients the range is 2.5 - 3.5. LAB L300.56822 9.4-12.0 SECONDS High 15.3 PTS Performed By: #### L300.30992 #### [facility] [address] [place] [address] CBC Collected: 04/03/2018 Status: F Source: [facility] 4:51 AM [facility] REPOSITORY Order Comment: [place]: M TYPE CODE TESTS RESULT OUT OF RANGE REFERENCE UNITS LAB L200.41693 4.5-11.0 K/CU MM Normal WBC 7.4 LAB L200.68380 3.90-5.30 M/CU MM Low RBC 3.20 LAB L200.49336 11.5-15.5 G/DL Low HGB 8.3 LAB L200.82811 35.0-47.0 % Low HCT 25.7 LAB L200.90640 80.0-99.0 fl Normal MCV 80.3 LAB L200.31315 32.0-36.0 GM/DL Normal MCHC 32.3 LAB L200.43116 11-14.5 High RDW 17.5 LAB L200.24990 9.4-12.4 Low MPV 8.0 LAB L200.37099 150-450 K/CU MM Normal PLT 282 LAB L200.49673 Less than 1 % Normal NRBC 0.0 Performed By: #### L200.30699 #### [facility] [address] [place] [address] PT Collected: 04/03/2018 Status: F Source: [facility] 4:51 AM [facility]ENTER [facility]ANT REPOSITORY Order Comment: [place]: M TYPE CODE TESTS RESULT OUT OF RANGE REFERENCE UNITS LAB L300.01494 0.9-1.1 High INR 1.6 Result Comment: Recommended PT INR therapeutic range for detention and prophylactic therapy is 2.0 - 3.0. For heart valve and shunt patients the range is 2.5 - 3.5. LAB L300.06962 9.4-12.0 SECONDS High 17.5 PTS Performed By: #### L300.82531 #### [facility] [address] [place] [address] PROG.NOTE Observed: 04/02/2018 Status: UNK Source: [facility] 1:21 PM [facility] REPOSITORY [facility] Patient Name: VENITA SMITH [address] [facility] Date of : [address] [place] [address] Unit Number: [id number] Progress Note-Physician Patient Status: REG RCR Attending Doctor: Dimitri Smith MD Service Date: 04/02/18 1321 Subjective S: (2 ROS minimum) Fever to 101.8 last night but asymptomatic, no n/v/d. Objective (ROS) Physical Exam Neurological / Psychiatric Alert Respiratory Normal Breathing Effort, Clear Lungs Cardiovascular Heart RRR, No M / R / G Gastrointestinal Non Tender, No Mass Skin No Rash, LLE wrapped Assessment and Plan Conclusion 1. Osteomyelitis Plan Doing well, reviewed labs and vitals. 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 - continue meropenem. Plan on at least 6 week course. Completed course of vori 04/01. - Transaminitis resolved, but CT abd/pelvis showed suspected cholecystitis and pericolic abscess. Surgery consulted, no plans for surgical intervention. Will need repeat abd imaging prior to stopping abx at end of this month. - Repeat wound cx with Acinetobacter, R to meropenem, and gamma strep. Will add po doxy and iv cipro due to fever. Will follow. Disclaimer This dictation was created using voice recognition software. Phonetic and/or minor grammatical errors may exist. eSign Date and Time Syeda Palmer MD Verified/Reviewed by 04/02/18 1322 CBC Collected: 04/02/2018 Status: F Source: [facility] 4:23 AM [facility] REPOSITORY Order Comment: [place]: M TYPE CODE TESTS RESULT OUT OF RANGE REFERENCE UNITS LAB L200.06582 4.5-11.0 K/CU MM Normal WBC 8.1 LAB L200.87635 3.90-5.30 M/CU MM Low RBC 2.52 LAB L200.06101 11.5-15.5 G/DL Low alert HGB 6.4 Result Comment: Critical result verified and has been called to KANCHAN GOODSON by Angelique Lim on 04/02/18 at 05:31, and has been read back. LAB L200.13757 35.0-47.0 % Low HCT 21.3 LAB L200.17963 80.0-99.0 fl Normal MCV 84.5 LAB L200.31613 32.0-36.0 GM/DL Low MCHC 30.0 LAB L200.90691 11-14.5 High RDW 17.6 LAB L200.93288 9.4-12.4 Low MPV 8.5 LAB L200.58757 150-450 K/CU MM Normal PLT 311 LAB L200.59627 Less than 1 % Normal NRBC 0.0 Performed By: #### L200.06087 #### [facility] [place] [address] TS Collected: 04/02/2018 Status: F Source: [facility] 4:23 AM [facility] REPOSITORY Order Comment: [place]: M Tranfuse Now? Y Irradiated: N Patient transfused or in the past 3 months: UNKNOWN Transfuse slowly @ 120Ml/hr x15min, then increase rate: As Tolerated Acute Hemorrhage Indication: Hgb < 7.0 TYPE CODE TESTS RESULT OUT OF RANGE REFERENCE UNITS LAB B100.0400 A Normal BLOOD TYPE POSITIVE LAB B100.0680 Normal ANTIBODY NEGATIVE SCREEN RBC ACT Collected: 04/02/2018 Status: F Source: [facility] 4:23 AM [facility] REPOSITORY TYPE CODE TESTS RESULT OUT OF REFERENCE UNITS RANGE LAB U800.001 RBC TRANSFUSED ACT PRODUCT: RBC ACTIVE BLEEDING COUNT: 2 PT Collected: 04/02/2018 Status: F Source: [facility] 4:22 AM [facility] REPOSITORY Order Comment: [place]: M TYPE CODE TESTS RESULT OUT OF RANGE REFERENCE UNITS LAB L300.60660 0.9-1.1 High INR 1.5 Result Comment: 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 For heart valve and shunt patients the range is 2.5 - 3.5. LAB L300.91246 9.4-12.0 SECONDS High 16.6 PTS Performed By: #### L300.22163 #### [facility] [address] [place] [address] BMP Collected: 04/02/2018 Status: F Source: [facility] 4:22 AM [facility] REPOSITORY Order Comment: [place]: M TYPE CODE TESTS RESULT OUT OF RANGE REFERENCE UNITS LAB L500.72458 136-145 MMOL/L Low NA 134 LAB L500.76296 3.5-5.1 MMOL/L Normal K 3.8 LAB L500.49075 98-107 MMOL/L Low CL 95 LAB L500.92732 21-32 MMOL/L Normal CO2 28 LAB L500.05000 5-16 MMOL/L Normal AGAP 12 LAB L500.02310 70-100 MG/DL High GLU 173 Result Comment: 70-100- Normal Fasting; 100-125 Impaired Fasting; greater than 126 on more than one result- Diabetes. ADA guidelines. Results may be falsely elevated after the administration of Sulfapyridine. Results may be falsely depressed after the administration of Sulfasalazine. LAB L500.00152 7-26 MG/DL High BUN 36 LAB L500.30000 0.510-0.950 MG/DL Low CREAT 0.472 Result Comment: Patients receiving either N-Acetylcysteine (NAC) or Metamizole prior to venipuncture, may have falsely depressed results. LAB L500.80350 15-24 BUN/CREA High 76 LAB L500.94820 8.5-10.1 MG/DL Low CALCIUM TOTAL 8.0 Performed By: #### L500.46528, L500.69277 #### [facility] [address] [place] [address] GFR EST Collected: 04/02/2018 Status: F Source: [facility] 4:22 AM [facility] REPOSITORY Order Comment: [place]: M TYPE CODE TESTS RESULT OUT OF RANGE REFERENCE UNITS LAB L500.23354 ML/MIN Normal IF non-AFR Greater than AMER 60 LAB L500.89197 ML/MIN Normal IF Greater than AMER 60 Performed By: #### L500.46858, L500.83996 #### [facility] [address] [place] [address] Observed: 04/01/2018 Status: F Source: [facility] BLOOD CULTURE 9:55 PM [facility] REPOSITORY Order Comment: [place]: M : LAB TO DRAW A SET NURSE TO DRAW A SET NO GROWTH AFTER 5 DAYS Performed By: #### M050.77556 #### [facility] [address] [place] [address] Observed: 04/01/2018 Status: F Source: [facility] BLOOD CULTURE 9:50 PM [facility] REPOSITORY Order Comment: [place]: M : LAB TO DRAW A SET NURSE TO DRAW A SET NO GROWTH AFTER 5 DAYS Performed By: #### M050.38968 #### [facility] [address] [place] [address] PROG.NOTE Observed: 04/01/2018 Status: UNK Source: [facility] 2:42 PM [facility] REPOSITORY [facility] Patient Name: VENITA SMITH [address] [place] [address] Date of : [address] [address] Unit Number: [id number] Progress Note-Physician Patient Status: REG RCR Attending Doctor: Dimitri Smith MD Service Date: 04/01/18 1442 Subjective S: (2 ROS minimum) Feeling ok, no fever, no n/v/d. Wound vacs are off LLE. Objective (ROS) Physical Exam Neurological / Psychiatric Alert Respiratory Normal Breathing Effort, Clear Lungs Cardiovascular Heart RRR, No M / R / G Gastrointestinal Non Tender, No Mass Skin No Rash, LLE wrapped Assessment and Plan Conclusion 1. Osteomyelitis Plan Doing well, reviewed labs and vitals. 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 - continue meropenem. Plan on at least 6 week course. Will stop vori today. - Transaminitis resolved, but CT abd/pelvis showed suspected cholecystitis and pericolic abscess. Surgery consulted, no plans for surgical intervention. Will need repeat abd imaging prior to stopping abx at end of this month. - Repeat wound cx with Acinetobacter, R to meropenem, and gamma strep. Will add po doxy. Wounds looking better per nursing. Will follow. Disclaimer This dictation was created using voice recognition software. Phonetic and/or minor grammatical errors may exist. eSign Date and Time Syeda Palmer MD Verified/Reviewed by 04/01/18 1447 PT Collected: 04/01/2018 Status: F Source: [facility] 6:52 AM [facility] REPOSITORY Order Comment: [place]: M TYPE CODE TESTS RESULT OUT OF RANGE REFERENCE UNITS LAB L300.25348 0.9-1.1 High INR 2.2 Result Comment: 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 For heart valve and shunt patients the range is 2.5 - 3.5. LAB L300.76514 9.4-12.0 SECONDS High 24.1 PTS Performed By: #### L300.61632 #### [facility] [address] [place] [address] PT Collected: 03/31/2018 Status: F Source: [facility] 5:54 AM [facility] REPOSITORY Order Comment: [place]: M TYPE CODE TESTS RESULT OUT OF RANGE REFERENCE UNITS LAB L300.01514 0.9-1.1 High INR 3.3 Result Comment: 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 For heart valve and shunt patients the range is 2.5 - 3.5. LAB L300.90057 9.4-12.0 SECONDS High 37.2 PTS Performed By: #### L300.10659 #### [facility] [place] [address] CBC W/DIFF Collected: 03/30/2018 Status: F Source: [facility] 4:59 AM [facility] REPOSITORY Order Comment: [place]: M TYPE CODE TESTS RESULT OUT OF RANGE REFERENCE UNITS LAB L200.39709 4.5-11.0 K/CU MM WBC Normal 7.1 LAB L200.27319 3.90-5.30 M/CU MM Low RBC 2.84 LAB L200.57217 11.5-15.5 G/DL Low HGB 7.4 LAB L200.92328 35.0-47.0 % Low HCT 23.9 LAB L200.83310 80.0-99.0 fl MCV Normal 84.2 LAB L200.34538 32.0-36.0 GM/DL Low MCHC 31.0 LAB L200.59213 11-14.5 High RDW 16.9 LAB L200.04532 9.4-12.4 Low MPV 8.3 LAB L200.22387 150-450 K/CU MM PLT Normal 333 LAB L200.63642 45-75 % NEUTROPHILS Normal % 73.4 LAB L200.60736 Less than 2 % IMMATURE Normal GRAN % 0.3 LAB L200.71409 20-40 % Low LYMPH % 13.8 LAB L200.03107 2-10 % High MONOCYTE % 11.3 LAB L200.89234 0-5 % EOSINOPHIL Normal % 0.9 LAB L200.96928 0-2 % BASOPHIL % Normal 0.3 LAB L200.08887 2.0-8.3 K/CU MM NEUTROPHIL Normal ABS 5.20 LAB L200.52537 Less than 2 K/CU MM IMMATR GRAN Normal ABS 0.00 LAB L200.84721 0.9-4.4 K/CU MM LYMPH ABS Normal 1.00 LAB L200.24178 0.1-1.1 K/CU MM MONO ABS Normal 0.80 LAB L200.55103 0-0.5 K/CU MM EOS ABS Normal 0.10 LAB L200.14674 0-0.2 K/CU MM BASO ABS Normal 0.00 LAB L200.70606 Less than 1 % NRBC Normal 0.0 Performed By: #### L200.79139 #### [facility] [place] [id number] PT Collected: 03/30/2018 Status: F Source: [facility] 4:59 AM [facility] REPOSITORY Order Comment: [place]: TYPE CODE TESTS RESULT OUT OF RANGE REFERENCE UNITS LAB L300.80244 0.9-1.1 High INR 3.7 Result Comment: 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 For heart valve and shunt patients the range is 2.5 - 3.5. LAB L300.16450 9.4-12.0 SECONDS High 41.1 PTS Performed By: #### L300.80944 #### [facility] [address] [place] [address] CMP Collected: 03/30/2018 Status: F Source: [facility] 4:59 AM [facility] REPOSITORY Order Comment: [place]: M TYPE CODE TESTS RESULT OUT OF RANGE REFERENCE UNITS LAB L500.45844 136-145 MMOL/L Low NA 132 LAB L500.49305 3.5-5.1 MMOL/L Normal K 4.2 LAB L500.38462 98-107 MMOL/L Low CL 95 LAB L500.88081 21-32 MMOL/L Normal CO2 29 LAB L500.42575 5-16 MMOL/L Normal AGAP 8 LAB L500.02614 70-100 MG/DL High GLU 190 Result Comment: 70-100- Normal Fasting; 100-125 Impaired Fasting; greater than 126 on more than one result- Diabetes. ADA guidelines. Results may be falsely elevated after the administration of Sulfapyridine. Results may be falsely depressed after the administration of Sulfasalazine. LAB L500.56791 7-26 MG/DL Normal BUN 20 LAB L500.88940 0.510-0.950 MG/DL Low CREAT 0.394 Result Comment: Patients receiving either N-Acetylcysteine (NAC) or Metamizole prior to venipuncture, may have falsely depressed results. LAB L500.99253 15-24 High BUN/CREA 51 LAB L500.42893 6.0-8.5 GM/DL Low TP 5.4 LAB L500.85851 3.2-5.0 GM/DL Low ALBUMIN 1.5 LAB L500.74293 2.2-4.2 GM/DL Normal GLOBULIN 3.9 LAB L500.59759 0.8-2.0 Low A/G RATIO 0.4 LAB L500.53513 8.5-10.1 MG/DL Low CALCIUM TOTAL 7.6 LAB L500.37950 0.2-1.0 MG/DL Normal BILI TOTAL 0.3 LAB L500.34611 8-34 U/L Normal SGOT (AST) 21 Result Comment: RESULTS MAY BE FALSELY DEPRESSED AFTER THE ADMINISTRATION OF SULFASALAZINE AND/OR SULFAPYRIDINE. LAB L500.01383 13-61 IU/L Normal SGPT (ALT) 14 Result Comment: RESULTS MAY BE FALSELY DEPRESSED AFTER THE ADMINISTRATION OF SULFASALAZINE AND/OR SULFAPYRIDINE. LAB L500.46103 45-117 U/L High ALK PHOS 192 Performed By: #### L500.59092, L500.26538 #### [facility] [address] [place] [address] GFR EST Collected: 03/30/2018 Status: F Source: [facility] 4:59 AM [facility] REPOSITORY Order Comment: [place]: TYPE CODE TESTS RESULT OUT OF RANGE REFERENCE UNITS LAB L500.96540 ML/MIN Normal IF non-AFR Greater than AMER 60 LAB L500.65879 ML/MIN Normal IF Greater than AMER 60 Performed By: #### L500.60236, L500.53083 #### [facility] [place] [address] PROG.NOTE Observed: 03/29/2018 Status: UNK Source: [facility] 11:21 AM [facility] REPOSITORY [facility] Patient Name: VENITA SMITH [address] [place] [address] Date of : [address] [address] Unit Number: [id number] Progress Note-Physician Patient Status: REG RCR Attending Doctor: Dimitri Smith MD Service Date: 03/29/18 1121 Subjective S: (2 ROS minimum) No further fever, no abd pain, no n/v/d. Objective (ROS) Physical Exam Neurological / Psychiatric Alert Respiratory Normal Breathing Effort, Clear Lungs Cardiovascular Heart RRR, No M / R / G Gastrointestinal Non Tender, No Mass Skin No Rash Assessment and Plan Conclusion 1. Osteomyelitis Plan Doing well, reviewed labs and vitals. 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 - continue meropenem and voriconazole. Plan on at least 6 week course for both. - vori level at goal - Transaminitis resolved, but CT abd/pelvis showed suspected cholecystitis and pericolic abscess. Surgery consulted, no plans for surgical intervention. Will need repeat abd imaging prior to stopping abx at end of this month. - No further fever. Bcx and ucx neg so far. Feeling ok. Ordered cdiff and wound cx from LLE. If condition worsens, would recommend adding empiric iv vanc. Will follow. Disclaimer This dictation was created using voice recognition software. Phonetic and/or minor grammatical errors may exist. eSign Date and Time Syeda Palmer MD Verified/Reviewed by 03/29/18 1122 PT Collected: 03/29/2018 Status: F Source: [facility] 4:56 AM [facility] REPOSITORY Order Comment: [place]: M TYPE CODE TESTS RESULT OUT OF RANGE REFERENCE UNITS LAB L300.17977 0.9-1.1 High INR 2.6 Result Comment: 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 For heart valve and shunt patients the range is 2.5 - 3.5. LAB L300.95921 9.4-12.0 SECONDS High 28.1 PTS Performed By: #### L300.07750 #### [facility] [address] [place] [address] Observed: 03/28/2018 Status: F Source: [facility] WOUND CULTURE 1:30 PM [facility] REPOSITORY Order Comment: [place]: M RESULTS CALLED TO BLANK/[place] 115103/31/18 BY VENITA CHO RESULTS CALLED TO BLANK/NEW [place] AT 115103/31/18 BY VENITA CHO THIS BACTERIAL ISOLATE HAS BEEN DETERMINED TO BE A POSSIBLE CRE BY CDC DEFINITION CRE: CARBAPENEN RESISTANT ENTEROBACTERIACEAE RESULTS CALLED TO BLANK/NEW [place] AT 115103/31/18 BY VENITA CHO THIS BACTERIAL ISOLATE IS NOT A CRE, BECAUSE IT IS NOT A MEMBER OF THE ENTEROBACTERIACEAE GRAM STAIN FEW WBC'S NO ORGANISMS SEEN * This is a corrected result. * A prior result that was reported as final has been changed. RESULTS CALLED TO AND READ BACK BY DR SAVAGE AT 0911 04/01/18 BY KIMBERLY DAVIS ORGANISM 1: ACINETOBACTER BAUMANNII/HAEMOL QUANTITATION FEW ACINETOBACTER BAUMANNII/HAEMOL: REACTION AMP/SULBACTAM (UNASYN) 16/8 I CEFEPIME >16 R CEFOTAXIME 16 I CIPROFLOXACIN <1 S GENTAMICIN <4 S TETRACYCLINE <4 S TOBRAMYCIN <4 S TRIMETH/SULFA <2/38 S LEVOFLOXACIN <2 S MEROPENEM >8 R ORGANISM 2: GAMMA HEMOLYTIC STREPTOCOCCUS QUANTITATION FEW ID TO FOLLOW NOT VIABLE FOR SENSITIVITY Performed By: #### M100.88203 #### [facility] [address] [place] [address] PROG.NOTE Observed: 03/28/2018 Status: UNK Source: [facility] 1:02 PM [facility] REPOSITORY [facility] Patient Name: VENITA SMITH [address] [place] [address] Date of : [address] [address] Unit Number: [id number] Progress Note-Physician Patient Status: REG RCR Attending Doctor: Dimitri Smith MD Service Date: 03/28/18 1302 Subjective S: (2 ROS minimum) Fever overnight. Feeling ok this AM. Dr. Antunez reports purulence from LLE wound. She denies abd pain. Having ongoing loose stool. Objective (ROS) Physical Exam Neurological / Psychiatric Alert Respiratory Normal Breathing Effort, Clear Lungs Cardiovascular Heart RRR, No M / R / G Gastrointestinal Non Tender, No Mass Skin LLE bandaged Assessment and Plan Conclusion 1. Osteomyelitis Plan Doing well, reviewed labs and vitals. 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 - continue meropenem and voriconazole. Plan on at least 6 week course for both. Requesting additional records from [facility]. - vori level at goal - Transaminitis resolved, but CT abd/pelvis showed suspected cholecystitis and pericolic abscess. Surgery consulted, no plans for surgical intervention. Will need repeat abd imaging prior to stopping abx. - new fever. Bcx and ucx pending. Feeling ok. Will check cdiff and wound cx from LLE. If condition worsens, would recommend adding empiric iv vanc. Will follow. Disclaimer This dictation was created using voice recognition software. Phonetic and/or minor grammatical errors may exist. eSign Date and Time Syeda Palmer MD Verified/Reviewed by 03/28/18 1304 PT Collected: 03/28/2018 Status: F Source: [facility] 4:27 AM [facility] REPOSITORY Order Comment: [place]: M TYPE CODE TESTS RESULT OUT OF RANGE REFERENCE UNITS LAB L300.99927 0.9-1.1 High INR 2.2 Result Comment: Recommended PT INR therapeutic range for detention and prophylactic therapy is 2.0 - 3.0. For heart valve and shunt patients the range is 2.5 - 3.5. LAB L300.21217 9.4-12.0 SECONDS High 24.5 PTS Performed By: #### L300.49530 #### [facility] [address] [place] [address] CBC W/DIFF Collected: 03/28/2018 Status: F Source: [facility] 4:27 AM [facility] REPOSITORY Order Comment: [place]: M TYPE CODE TESTS RESULT OUT OF RANGE REFERENCE UNITS LAB L200.49897 4.5-11.0 K/CU MM WBC Normal 5.8 LAB L200.81327 3.90-5.30 M/CU MM Low RBC 2.66 LAB L200.84367 11.5-15.5 G/DL Low HGB 7.1 LAB L200.20533 35.0-47.0 % Low HCT 22.1 LAB L200.80758 80.0-99.0 fl MCV Normal 83.1 LAB L200.27526 32.0-36.0 GM/DL MCHC Normal 32.1 LAB L200.30470 11-14.5 High RDW 16.9 LAB L200.27321 9.4-12.4 Low MPV 8.3 LAB L200.34146 150-450 K/CU MM PLT Normal 264 LAB L200.96472 45-75 % NEUTROPHILS Normal % 74.9 LAB L200.80101 Less than 2 % IMMATURE Normal GRAN % 0.3 LAB L200.56365 20-40 % Low LYMPH % 11.8 LAB L200.84966 2-10 % High MONOCYTE % 11.9 LAB L200.22008 0-5 % EOSINOPHIL Normal % 0.9 LAB L200.37998 0-2 % BASOPHIL % Normal 0.2 LAB L200.81005 2.0-8.3 K/CU MM NEUTROPHIL Normal ABS 4.30 LAB L200.59096 Less than 2 K/CU MM IMMATR GRAN Normal ABS 0.00 LAB L200.01002 0.9-4.4 K/CU MM Low LYMPH ABS 0.70 LAB L200.82613 0.1-1.1 K/CU MM MONO ABS Normal 0.70 LAB L200.41238 0-0.5 K/CU MM EOS ABS Normal 0.10 LAB L200.71086 0-0.2 K/CU MM BASO ABS Normal 0.00 LAB L200.89111 Less than 1 % NRBC Normal 0.0 Performed By: #### L200.55791 #### [facility] [address] [place] [address] CMP Collected: 03/28/2018 Status: F Source: [facility] 4:27 AM [facility] REPOSITORY Order Comment: [place]: M TYPE CODE TESTS RESULT OUT OF RANGE REFERENCE UNITS LAB L500.21248 136-145 MMOL/L Low NA 133 LAB L500.62241 3.5-5.1 MMOL/L Normal K 4.1 LAB L500.62831 98-107 MMOL/L Low CL 95 LAB L500.10666 21-32 MMOL/L Normal CO2 31 LAB L500.95799 5-16 MMOL/L Normal AGAP 7 LAB L500.96978 70-100 MG/DL High GLU 200 Result Comment: 70-100- Normal Fasting; 100-125 Impaired Fasting; greater than 126 on more than one result- Diabetes. ADA guidelines. Results may be falsely elevated after the administration of Sulfapyridine. Results may be falsely depressed after the administration of Sulfasalazine. LAB L500.72482 7-26 MG/DL Normal BUN 21 LAB L500.82781 0.510-0.950 MG/DL Low CREAT 0.358 Result Comment: Patients receiving either N-Acetylcysteine (NAC) or Metamizole prior to venipuncture, may have falsely depressed results. LAB L500.16834 15-24 High BUN/CREA 59 LAB L500.54347 6.0-8.5 GM/DL Low TP 5.3 LAB L500.63560 3.2-5.0 GM/DL Low ALBUMIN 1.5 LAB L500.78956 2.2-4.2 GM/DL Normal GLOBULIN 3.8 LAB L500.42484 0.8-2.0 Low A/G RATIO 0.4 LAB L500.79809 8.5-10.1 MG/DL Low CALCIUM TOTAL 7.9 LAB L500.04126 0.2-1.0 MG/DL Normal BILI TOTAL 0.4 LAB L500.21776 8-34 U/L Normal SGOT (AST) 28 Result Comment: RESULTS MAY BE FALSELY DEPRESSED AFTER THE ADMINISTRATION OF SULFASALAZINE AND/OR SULFAPYRIDINE. LAB L500.81588 13-61 IU/L Normal SGPT (ALT) 18 Result Comment: RESULTS MAY BE FALSELY DEPRESSED AFTER THE ADMINISTRATION OF SULFASALAZINE AND/OR SULFAPYRIDINE. LAB L500.17361 45-117 U/L High ALK PHOS 189 Performed By: #### L500.49020, L500.51998 #### [facility] [address] [place] [address] GFR EST Collected: 03/28/2018 Status: F Source: [facility] 4:27 AM [facility] REPOSITORY Order Comment: [place]: TYPE CODE TESTS RESULT OUT OF RANGE REFERENCE UNITS LAB L500.50885 ML/MIN Normal IF non-AFR Greater than AMER 60 LAB L500.57392 ML/MIN Normal IF Greater than AMER 60 Performed By: #### L500.21690, L500.94339 #### [facility] [address] [place] [address] Observed: 03/27/2018 Status: F Source: [facility] BLOOD CULTURE 10:00 PM [facility] REPOSITORY Order Comment: [place]: M : BLOOD CULTURES ONE FROM THE PICC AND ONE PHERIPHERAL NO GROWTH AFTER 5 DAYS Performed By: #### M050.91500 #### [facility] [address] [place] [address] Observed: 03/27/2018 Status: F Source: [facility] BLOOD CULTURE 10:00 PM [facility] REPOSITORY Order Comment: [place]: M : BLOOD CULTURES ONE FROM THE PICC AND ONE PHERIPHERAL NO GROWTH AFTER 5 DAYS Performed By: #### M050.57328 #### [facility] [address] [place] [address] Observed: 03/27/2018 Status: F Source: [facility] MEDICAL URINE CULTURE 10:00 PM [facility] REPOSITORY Order Comment: [place]: M : BLOOD CULTURES ONE FROM THE PICC AND ONE PHERIPHERAL URINE RESULT LESS THAN 10,000 COLONIES PER ML Performed By: #### M100.18877 #### [facility] [address] [place] [address] PROG.NOTE Observed: 03/27/2018 Status: UNK Source: [facility] MEDICAL 3:40 PM [facility] REPOSITORY [facility] Patient Name: VENITA SMITH [address] [place] [address] Date of : [address] [address] Unit Number: [id number] Progress Note-Physician Patient Status: REG RCR Attending Doctor: Dimitri Smith MD Service Date: 03/27/18 1540 Subjective S: (2 ROS minimum) No fever, no events overnight Objective (ROS) Physical Exam Neurological / Psychiatric NAD Respiratory Normal Breathing Effort, Clear Lungs Cardiovascular Heart RRR, No M / R / G Gastrointestinal Non Tender, No Mass Skin No Rash Assessment and Plan Conclusion 1. Osteomyelitis Plan Doing well, reviewed labs and vitals. 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 - continue meropenem and voriconazole. Plan on at least 6 week course for both. Requesting additional records from [facility]. - vori level at goal - Transaminitis resolved, but CT abd/pelvis showed suspected cholecystitis and pericolic abscess. Surgery consulted, no plans for surgical intervention. Will need repeat abd imaging prior to stopping abx. - wounds slightly improved since last change per wound care nurse Will follow. Disclaimer This dictation was created using voice recognition software. Phonetic and/or minor grammatical errors may exist. eSign Date and Time Syeda Palmer MD Verified/Reviewed by 03/27/18 1542 CBC Collected: 03/27/2018 Status: F Source: [facility] 8:01 AM [facility] REPOSITORY Order Comment: [place]: M TYPE CODE TESTS RESULT OUT OF RANGE REFERENCE UNITS LAB L200.11986 4.5-11.0 K/CU MM Normal WBC 6.1 LAB L200.65659 3.90-5.30 M/CU MM Low RBC 2.88 LAB L200.22029 11.5-15.5 G/DL Low HGB 7.3 LAB L200.78935 35.0-47.0 % Low HCT 24.6 LAB L200.82888 80.0-99.0 fl Normal MCV 85.4 LAB L200.36901 32.0-36.0 GM/DL Low MCHC 29.7 LAB L200.80420 11-14.5 High RDW 17.5 LAB L200.42990 9.4-12.4 Low MPV 8.5 LAB L200.33929 150-450 K/CU MM Normal PLT 275 LAB L200.83617 Less than 1 % Normal NRBC 0.0 Performed By: #### L200.01125 #### [facility] [address] [place] [address] PT Collected: 03/27/2018 Status: F Source: [facility] 4:22 AM [facility] REPOSITORY Order Comment: [place]: M TYPE CODE TESTS RESULT OUT OF RANGE REFERENCE UNITS LAB L300.47062 0.9-1.1 High INR 2.0 Result Comment: 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 For heart valve and shunt patients the range is 2.5 - 3.5. LAB L300.84039 9.4-12.0 SECONDS High 21.8 PTS Performed By: #### L300.08570 #### [facility] [address] [place] [address] PT Collected: 03/26/2018 Status: F Source: [facility] 4:16 AM [facility] REPOSITORY Order Comment: [place]: M TYPE CODE TESTS RESULT OUT OF RANGE REFERENCE UNITS LAB L300.53263 0.9-1.1 High INR 1.7 Result Comment: Recommended PT INR therapeutic range for detention and prophylactic therapy is 2.0 - 3.0. For heart valve and shunt patients the range is 2.5 - 3.5. LAB L300.68310 9.4-12.0 SECONDS High 18.7 PTS Performed By: #### L300.31678 #### [facility] [address] [place] [address] PROG.NOTE Observed: 03/25/2018 Status: UNK Source: [facility] 2:33 PM [facility] REPOSITORY [facility] Patient Name: VENITA SMITH [address] [place] [address] Date of : [address] [address] Unit Number: [id number] Progress Note-Physician Patient Status: REG RCR Attending Doctor: Dimitri Smith MD Service Date: 03/25/18 1433 Subjective S: (2 ROS minimum) Feeling ok, no abd pain, no n/v/d. No fever. Objective (ROS) Physical Exam Neurological / Psychiatric Alert Respiratory Normal Breathing Effort, Clear Lungs Cardiovascular Heart RRR, No M / R / G Gastrointestinal Non Tender, No Mass Skin No Rash, wound vac over sacrum and LLE x2 Assessment and Plan Conclusion 1. Osteomyelitis Plan Doing well, reviewed labs and vitals. 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 - continue meropenem and voriconazole. Plan on at least 6 week course for both. Requesting additional records from [facility]. - vori level at goal - Transaminitis resolved, but CT abd/pelvis showed suspected cholecystitis and pericolic abscess. Ordered gen surg consult, per report no plans for surgical intervention. - wounds slightly improved since last change per wound care nurse Will follow. Disclaimer This dictation was created using voice recognition software. Phonetic and/or minor grammatical errors may exist. eSign Date and Time Syeda Palmer MD Verified/Reviewed by 03/25/18 1434 PT Collected: 03/25/2018 Status: F Source: [facility] 4:10 AM [facility] REPOSITORY Order Comment: [place]: M TYPE CODE TESTS RESULT OUT OF RANGE REFERENCE UNITS LAB L300.87605 0.9-1.1 High INR 1.6 Result Comment: Recommended PT INR therapeutic range for detention and prophylactic therapy is 2.0 - 3.0. For heart valve and shunt patients the range is 2.5 - 3.5. LAB L300.92797 9.4-12.0 SECONDS High 17.1 PTS Performed By: #### L300.37210 #### [facility] [address] [place] [address] PT Collected: 03/24/2018 Status: F Source: [facility] 5:32 AM [facility] REPOSITORY Order Comment: [place]: M TYPE CODE TESTS RESULT OUT OF RANGE REFERENCE UNITS LAB L300.92462 0.9-1.1 High INR 1.4 Result Comment: 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 For heart valve and shunt patients the range is 2.5 - 3.5. LAB L300.77996 9.4-12.0 SECONDS High 15.4 PTS Performed By: #### L300.80375 #### [facility] [address] [place] [address] CBC W/DIFF Collected: 03/23/2018 Status: F Source: [facility] 4:32 AM [facility] REPOSITORY Order Comment: [place]: M TYPE CODE TESTS RESULT OUT OF RANGE REFERENCE UNITS LAB L200.99895 4.5-11.0 K/CU MM Low WBC 4.4 LAB L200.39780 3.90-5.30 M/CU MM Low RBC 2.91 LAB L200.72922 11.5-15.5 G/DL Low HGB 7.7 LAB L200.99331 35.0-47.0 % Low HCT 24.8 LAB L200.21804 80.0-99.0 fl MCV Normal 85.2 LAB L200.62465 32.0-36.0 GM/DL Low MCHC 31.0 LAB L200.65038 11-14.5 High RDW 17.6 LAB L200.61271 9.4-12.4 Low MPV 8.3 LAB L200.27490 150-450 K/CU MM PLT Normal 260 LAB L200.07272 45-75 % NEUTROPHILS Normal % 72.8 LAB L200.47437 Less than 2 % IMMATURE Normal GRAN % 0.2 LAB L200.00723 20-40 % Low LYMPH % 12.0 LAB L200.91375 2-10 % High MONOCYTE % 13.9 LAB L200.35235 0-5 % EOSINOPHIL Normal % 0.9 LAB L200.78781 0-2 % BASOPHIL % Normal 0.2 LAB L200.02615 2.0-8.3 K/CU MM NEUTROPHIL Normal ABS 3.20 LAB L200.69582 Less than 2 K/CU MM IMMATR GRAN Normal ABS 0.00 LAB L200.51499 0.9-4.4 K/CU MM Low LYMPH ABS 0.50 LAB L200.69541 0.1-1.1 K/CU MM MONO ABS Normal 0.60 LAB L200.51371 0-0.5 K/CU MM EOS ABS Normal 0.00 LAB L200.26149 0-0.2 K/CU MM BASO ABS Normal 0.00 LAB L200.36492 Less than 1 % NRBC Normal 0.0 Performed By: #### L200.10166 #### [facility] [address] [place] [address] PT Collected: 03/23/2018 Status: F Source: [facility] 4:32 AM [facility] REPOSITORY Order Comment: [place]: TYPE CODE TESTS RESULT OUT OF RANGE REFERENCE UNITS LAB L300.55246 0.9-1.1 High INR 1.3 Result Comment: 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 For heart valve and shunt patients the range is 2.5 - 3.5. LAB L300.38162 9.4-12.0 SECONDS High 14.4 PTS Performed By: #### L300.66218 #### [facility] [address] [place] [address] CMP Collected: 03/23/2018 Status: F Source: [facility] 4:32 AM [facility] REPOSITORY Order Comment: [place]: TYPE CODE TESTS RESULT OUT OF RANGE REFERENCE UNITS LAB L500.15151 136-145 MMOL/L Low NA 132 LAB L500.42011 3.5-5.1 MMOL/L Normal K 4.2 LAB L500.91542 98-107 MMOL/L Low CL 95 LAB L500.06816 21-32 MMOL/L Normal CO2 30 LAB L500.42174 5-16 MMOL/L Normal AGAP 7 LAB L500.00122 70-100 MG/DL High GLU 167 Result Comment: 70-100- Normal Fasting; 100-125 Impaired Fasting; greater than 126 on more than one result- Diabetes. ADA guidelines. Results may be falsely elevated after the administration of Sulfapyridine. Results may be falsely depressed after the administration of Sulfasalazine. LAB L500.21930 7-26 MG/DL Normal BUN 19 LAB L500.18028 0.510-0.950 MG/DL Low CREAT 0.397 Result Comment: Patients receiving either N-Acetylcysteine (NAC) or Metamizole prior to venipuncture, may have falsely depressed results. LAB L500.95543 15-24 High BUN/CREA 48 LAB L500.87472 6.0-8.5 GM/DL Low TP 5.5 LAB L500.07072 3.2-5.0 GM/DL Low ALBUMIN 1.5 LAB L500.27314 2.2-4.2 GM/DL Normal GLOBULIN 4.0 LAB L500.58658 0.8-2.0 Low A/G RATIO 0.4 LAB L500.92998 8.5-10.1 MG/DL Low CALCIUM TOTAL 7.9 LAB L500.74916 0.2-1.0 MG/DL Normal BILI TOTAL 0.4 LAB L500.71163 8-34 U/L High SGOT (AST) 103 Result Comment: RESULTS MAY BE FALSELY DEPRESSED AFTER THE ADMINISTRATION OF SULFASALAZINE AND/OR SULFAPYRIDINE. LAB L500.66343 13-61 IU/L Normal SGPT (ALT) 51 Result Comment: RESULTS MAY BE FALSELY DEPRESSED AFTER THE ADMINISTRATION OF SULFASALAZINE AND/OR SULFAPYRIDINE. LAB L500.42810 45-117 U/L High ALK PHOS 266 Performed By: #### L500.67490, L500.21830 #### [facility] [address] [place] [address] GFR EST Collected: 03/23/2018 Status: F Source: [facility] 4:32 AM [facility] REPOSITORY Order Comment: [place]: TYPE CODE TESTS RESULT OUT OF RANGE REFERENCE UNITS LAB L500.93457 ML/MIN Normal IF non-AFR Greater than AMER 60 LAB L500.05517 ML/MIN Normal IF Greater than AMER 60 Performed By: #### L500.68027, L500.46820 #### [facility] [address] [place] [address] PROG.NOTE Observed: 03/22/2018 Status: UNK Source: [facility] 9:51 AM [facility] REPOSITORY [facility] Patient Name: VENITA SMITH [address] [place] [address] Date of : [address] [place], [place] [address] Unit Number: [id number] Progress Note-Physician Patient Status: REG RCR Attending Doctor: Dimitri Smith MD Service Date: 03/22/18 0951 Subjective S: (2 ROS minimum) No fever, no abd pain, no n/v/d. Objective (ROS) Physical Exam Neurological / Psychiatric Alert Respiratory Normal Breathing Effort, Clear Lungs Cardiovascular Heart RRR, No M / R / G Gastrointestinal Non Tender, No Mass Skin No Rash, wound vacs in place Assessment and Plan Conclusion 1. Osteomyelitis Plan Doing well, reviewed labs and vitals. 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 - continue meropenem and voriconazole. Plan on at least 6 week course for both. Requesting additional records from [facility]. - vori level at goal - Transaminitis resolved, but CT abd/pelvis showed suspected cholecystitis and pericolic abscess. Ordered gen surg consult. - no new drainage from wound vacs, but wound care nurse concerned that areas appear to be extending. Will follow. Disclaimer This dictation was created using voice recognition software. Phonetic and/or minor grammatical errors may exist. eSign Date and Time Syeda Palmer MD Verified/Reviewed by 03/22/18 0952 PT Collected: 03/22/2018 Status: F Source: [facility] 4:26 AM [facility] REPOSITORY Order Comment: [place]: TYPE CODE TESTS RESULT OUT OF RANGE REFERENCE UNITS LAB L300.35448 0.9-1.1 High INR 1.3 Result Comment: 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 For heart valve and shunt patients the range is 2.5 - 3.5. LAB L300.65999 9.4-12.0 SECONDS High 13.4 PTS Performed By: #### L300.02590 #### [facility] [address] [place] [address] PROG.NOTE Observed: 03/21/2018 Status: UNK Source: [facility] 11:50 AM [facility] REPOSITORY [facility] Patient Name: VENITA SMITH [address] [place] [address] Date of : [address] [place] [address] Unit Number: [id number] Progress Note-Physician Patient Status: REG RCR Attending Doctor: Dimitri Smith MD Service Date: 03/21/18 1150 Subjective S: (2 ROS minimum) Feeling about the same. Denies fever, no abd pain, no n/v. Objective (ROS) Physical Exam Neurological / Psychiatric Alert Respiratory Normal Breathing Effort, Clear Lungs Cardiovascular Heart RRR, No M / R / G Gastrointestinal Non Tender, No Mass Skin No Rash, wound vacs in place Assessment and Plan Conclusion 1. Osteomyelitis Plan Doing well, reviewed labs and vital. 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 - continue meropenem and voriconazole. Plan on at least 6 week course for both. Requesting additional records from [facility]. - vori level at goal - Transaminitis resolved, but CT abd/pelvis showed suspected cholecystitis and pericolic abscess. Ordered gen surg consult. Will follow. D/w nursing. Disclaimer This dictation was created using voice recognition software. Phonetic and/or minor grammatical errors may exist. eSign Date and Time Syeda Palmer MD Verified/Reviewed by 03/21/18 1152 CBC W/DIFF Collected: 03/21/2018 Status: F Source: [facility] 5:14 AM [facility] REPOSITORY Order Comment: [place]: TYPE CODE TESTS RESULT OUT OF RANGE REFERENCE UNITS LAB L200.49981 4.5-11.0 K/CU MM WBC Normal 8.2 LAB L200.95417 3.90-5.30 M/CU MM Low RBC 3.14 LAB L200.39351 11.5-15.5 G/DL Low HGB 8.4 LAB L200.73033 35.0-47.0 % Low HCT 26.4 LAB L200.53161 80.0-99.0 fl MCV Normal 84.1 LAB L200.46188 32.0-36.0 GM/DL Low MCHC 31.8 LAB L200.57461 11-14.5 High RDW 17.4 LAB L200.38181 9.4-12.4 Low MPV 8.1 LAB L200.62340 150-450 K/CU MM PLT Normal 300 LAB L200.32607 45-75 % High NEUTROPHILS % 82.7 LAB L200.31442 Less than 2 % IMMATURE Normal GRAN % 0.4 LAB L200.26545 20-40 % Low LYMPH % 7.6 LAB L200.15852 2-10 % MONOCYTE % Normal 8.4 LAB L200.30298 0-5 % EOSINOPHIL Normal % 0.7 LAB L200.92332 0-2 % BASOPHIL % Normal 0.2 LAB L200.81793 2.0-8.3 K/CU MM NEUTROPHIL Normal ABS 6.80 LAB L200.35803 Less than 2 K/CU MM IMMATR GRAN Normal ABS 0.00 LAB L200.08442 0.9-4.4 K/CU MM Low LYMPH ABS 0.60 LAB L200.11310 0.1-1.1 K/CU MM MONO ABS Normal 0.70 LAB L200.69489 0-0.5 K/CU MM EOS ABS Normal 0.10 LAB L200.58728 0-0.2 K/CU MM BASO ABS Normal 0.00 LAB L200.34616 Less than 1 % NRBC Normal 0.0 Performed By: #### L200.50424 #### [facility] [address] [place] [address] PT Collected: 03/21/2018 Status: F Source: [facility] 5:14 AM [facility] REPOSITORY Order Comment: [place]: M TYPE CODE TESTS RESULT OUT OF RANGE REFERENCE UNITS LAB L300.84258 0.9-1.1 High INR 1.2 Result Comment: Recommended PT INR therapeutic range for detention and prophylactic therapy is 2.0 - 3.0. For heart valve and shunt patients the range is 2.5 - 3.5. LAB L300.31043 9.4-12.0 SECONDS High 12.3 PTS Performed By: #### L300.34207 #### [facility] [address] [place] [address] CMP Collected: 03/21/2018 Status: F Source: [facility] 5:14 AM [facility] REPOSITORY Order Comment: [place]: M TYPE CODE TESTS RESULT OUT OF RANGE REFERENCE UNITS LAB L500.69988 136-145 MMOL/L Low NA 131 LAB L500.19250 3.5-5.1 MMOL/L Normal K 4.4 LAB L500.91957 98-107 MMOL/L Low CL 92 LAB L500.11109 21-32 MMOL/L Normal CO2 30 LAB L500.62350 5-16 MMOL/L Normal AGAP 8 LAB L500.34531 70-100 MG/DL High GLU 234 Result Comment: 70-100- Normal Fasting; 100-125 Impaired Fasting; greater than 126 on more than one result- Diabetes. ADA guidelines. Results may be falsely elevated after the administration of Sulfapyridine. Results may be falsely depressed after the administration of Sulfasalazine. LAB L500.58431 7-26 MG/DL Normal BUN 13 LAB L500.94048 0.510-0.950 MG/DL Low CREAT 0.390 Result Comment: Patients receiving either N-Acetylcysteine (NAC) or Metamizole prior to venipuncture, may have falsely depressed results. LAB L500.10563 15-24 High BUN/CREA 33 LAB L500.62806 6.0-8.5 GM/DL Low TP 5.7 LAB L500.97808 3.2-5.0 GM/DL Low ALBUMIN 1.6 LAB L500.21365 2.2-4.2 GM/DL Normal GLOBULIN 4.2 LAB L500.25561 0.8-2.0 Low A/G RATIO 0.4 LAB L500.40113 8.5-10.1 MG/DL Low CALCIUM TOTAL 8.4 LAB L500.66326 0.2-1.0 MG/DL Normal BILI TOTAL 0.4 LAB L500.46889 8-34 U/L Normal SGOT (AST) 26 Result Comment: RESULTS MAY BE FALSELY DEPRESSED AFTER THE ADMINISTRATION OF SULFASALAZINE AND/OR SULFAPYRIDINE. LAB L500.98394 13-61 IU/L Normal SGPT (ALT) 40 Result Comment: RESULTS MAY BE FALSELY DEPRESSED AFTER THE ADMINISTRATION OF SULFASALAZINE AND/OR SULFAPYRIDINE. LAB L500.24243 45-117 U/L High ALK PHOS 312 Performed By: #### L500.34919, L500.44709 #### [facility] [address] [place] [address] GFR EST Collected: 03/21/2018 Status: F Source: [facility] 5:14 AM [facility] REPOSITORY Order Comment: [place]: M TYPE CODE TESTS RESULT OUT OF RANGE REFERENCE UNITS LAB L500.39201 ML/MIN Normal IF non-AFR Greater than AMER 60 LAB L500.19581 ML/MIN Normal IF Greater than AMER 60 Performed By: #### L500.09689, L500.36205 #### [facility] [address] [place] [address] HEP A IGM AB Collected: 03/20/2018 Status: F Source: [facility] 9:37 AM [facility] REPOSITORY Order Comment: [place]: M SPECIMEN SOURCE: BLOOD TYPE CODE TESTS RESULT OUT OF REFERENCE UNITS RANGE LAB L540.65078 NONREACTIVE NONREACTIVE Normal HEP A IGM AB Result Comment: RESULTS WERE OBTAINED WITH THE [employer] [facility] XP HEPATITIS A IgM. VALUES OBTAINED WITH DIFFERENT MANUFACTURERS' ASSAY METHODS MAY NOT BE USED INTERCHANGEABLY. These results may be falsely depressed in the presence of Biotin concentrations above 500 ng/ml. Performed By: #### L540.37551, L540.32612, L540.17823, L540.79731 #### [facility] [address] [place] [id number] HBSAG Collected: 03/20/2018 Status: F Source: [facility] 9:37 AM [facility] REPOSITORY Order Comment: [place]: M SPECIMEN SOURCE: BLOOD TYPE CODE TESTS RESULT OUT OF REFERENCE UNITS RANGE LAB L540.71810 NONREACTIVE NONREACTIVE Normal HBSAG Result Comment: RESULTS WERE OBTAINED WITH THE [facility] XP. VALUES OBTAINED WITH DIFFERENT MANUFACTURERS' ASSAY METHODS MAY NOT BE USED INTERCHANGEABLY. Performed By: #### L540.31837, L540.54306, L540.24659, L540.97038 #### [facility] [address] [place] [address] HEP B CORE IGM Collected: 03/20/2018 Status: F Source: [facility] 9:37 AM [facility] REPOSITORY Order Comment: [place]: M SPECIMEN SOURCE: BLOOD TYPE CODE TESTS RESULT OUT OF REFERENCE UNITS RANGE LAB L540.11150 NONREACTIVE NONREACTIVE Normal HEP B CORE IGM Result Comment: RESULTS WERE OBTAINED WITH THE [employer] [facility] XP ANTI-HBC IGM EIA. VALUES OBTAINED WITH DIFFERENT MANUFACTURERS' ASSAY METHODS MAY NOT BE USED INTERCHANGEABLY. These results may be falsely depressed in the presence of Biotin concentrations above 250 ng/ml. Performed By: #### L540.39516, L540.12229, L540.29215, L540.06337 #### [facility] [address] [place] [address] HEPATITIS C AB Collected: 03/20/2018 Status: F Source: [facility] 9:37 AM [facility] REPOSITORY Order Comment: [place]: M SPECIMEN SOURCE: BLOOD TYPE CODE TESTS RESULT OUT OF REFERENCE UNITS RANGE LAB L540.62964 NONREACTIVE NONREACTIVE Normal HCV AB Result Comment: SCREENING TEST NEGATIVE NONREACTIVE HCV ANTIBODY SCREEN IS CONSISTENT WITH NO HCV INFECTION, UNLESS RECENT INFECTION IS SUSPECTED OR OTHER EVIDENCE EXISTS TO INDICATE HCV INFECTION Performed By: #### L540.40889, L540.33431, L540.11048, L540.55479 #### [facility] [address] [place] [address] CBC Collected: 03/20/2018 Status: F Source: [facility] 8:00 AM [facility] REPOSITORY Order Comment: Please redraw, previous one was clotted. TYPE CODE TESTS RESULT OUT OF RANGE REFERENCE UNITS LAB L200.42722 4.5-11.0 K/CU MM Normal WBC 6.7 LAB L200.81561 3.90-5.30 M/CU MM Low RBC 3.13 LAB L200.28670 11.5-15.5 G/DL Low HGB 8.4 LAB L200.73590 35.0-47.0 % Low HCT 26.8 LAB L200.06270 80.0-99.0 fl Normal MCV 85.6 LAB L200.92056 32.0-36.0 GM/DL Low MCHC 31.3 LAB L200.54793 11-14.5 High RDW 17.7 LAB L200.39937 9.4-12.4 Low MPV 8.0 LAB L200.01469 150-450 K/CU MM Normal PLT 297 LAB L200.26019 Less than 1 % Normal NRBC 0.0 Performed By: #### L200.34382 #### [facility] [place] [address] PT Collected: 03/20/2018 Status: F Source: [facility] 8:00 AM [facility] REPOSITORY Order Comment: Please redraw, previous one was clotted. TYPE CODE TESTS RESULT OUT OF RANGE REFERENCE UNITS LAB L300.41644 0.9-1.1 High INR 1.2 Result Comment: 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 For heart valve and shunt patients the range is 2.5 - 3.5. LAB L300.76138 9.4-12.0 SECONDS High 12.3 PTS Performed By: #### L300.07355 #### [facility] [address] [place] [address] PT Collected: 03/19/2018 Status: F Source: [facility] 4:26 AM [facility] REPOSITORY Order Comment: [place]: M TYPE CODE TESTS RESULT OUT OF RANGE REFERENCE UNITS LAB L300.17170 0.9-1.1 High INR 1.2 Result Comment: Recommended PT INR therapeutic range for detention and prophylactic therapy is 2.0 - 3.0. For heart valve and shunt patients the range is 2.5 - 3.5. LAB L300.19311 9.4-12.0 SECONDS High 12.5 PTS Performed By: #### L300.81240 #### [facility] [address] [place] [address] PROG.NOTE Observed: 03/18/2018 Status: UNK Source: [facility] 3:50 PM [facility] REPOSITORY [facility] Patient Name: VENITA SMITH [address] [place] [address] Date of : [address] [place] [address] Unit Number: [id number] Progress Note-Physician Patient Status: REG RCR Attending Doctor: Dimitri Smith MD Service Date: 03/18/18 1550 Subjective S: (2 ROS minimum) Feeling fine, no fever, no issues with picc. Wound vac in place. Objective (ROS) Physical Exam Neurological / Psychiatric Alert Respiratory Normal Breathing Effort, Clear Lungs Cardiovascular Heart RRR, No M / R / G Gastrointestinal Non Tender, No Mass Skin No Rash, wound vacs on LLE and sacrum Assessment and Plan Conclusion 1. Osteomyelitis Plan Doing well, reviewed labs and vital. 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 - continue meropenem and voriconazole. Plan on at least 6 week course for both. Requesting additional records from [facility]. - pending random vori level. - d/w wound care nurse, may need further debridement, surgery following. Will follow. Disclaimer This dictation was created using voice recognition software. Phonetic and/or minor grammatical errors may exist. eSign Date and Time Syeda Palmer MD Verified/Reviewed by 03/18/18 1553 PT Collected: 03/18/2018 Status: F Source: [facility] 4:23 AM [facility] REPOSITORY Order Comment: [place]: M TYPE CODE TESTS RESULT OUT OF RANGE REFERENCE UNITS LAB L300.55466 0.9-1.1 High INR 1.2 Result Comment: Recommended PT INR therapeutic range for detention and prophylactic therapy is 2.0 - 3.0. For heart valve and shunt patients the range is 2.5 - 3.5. LAB L300.32528 9.4-12.0 SECONDS High 12.7 PTS Performed By: #### L300.01519 #### [facility] [address] [place] [address] CBC W/DIFF Collected: 03/18/2018 Status: F Source: [facility] 4:23 AM [facility] REPOSITORY Order Comment: [place]: M TYPE CODE TESTS RESULT OUT OF RANGE REFERENCE UNITS LAB L200.51016 4.5-11.0 K/CU MM WBC Normal 7.5 LAB L200.32778 3.90-5.30 M/CU MM Low RBC 3.19 LAB L200.93050 11.5-15.5 G/DL Low HGB 8.6 LAB L200.85644 35.0-47.0 % Low HCT 27.4 LAB L200.38023 80.0-99.0 fl MCV Normal 85.9 LAB L200.07177 32.0-36.0 GM/DL Low MCHC 31.4 LAB L200.35727 11-14.5 High RDW 17.7 LAB L200.31422 9.4-12.4 Low MPV 8.3 LAB L200.28281 150-450 K/CU MM PLT Normal 350 LAB L200.89819 45-75 % High NEUTROPHILS % 80.5 LAB L200.32352 Less than 2 % IMMATURE Normal GRAN % 0.5 LAB L200.30306 20-40 % Low LYMPH % 9.7 LAB L200.00059 2-10 % MONOCYTE % Normal 8.4 LAB L200.15479 0-5 % EOSINOPHIL Normal % 0.8 LAB L200.54584 0-2 % BASOPHIL % Normal 0.1 LAB L200.93966 2.0-8.3 K/CU MM NEUTROPHIL Normal ABS 6.10 LAB L200.51766 Less than 2 K/CU MM IMMATR GRAN Normal ABS 0.00 LAB L200.35896 0.9-4.4 K/CU MM Low LYMPH ABS 0.70 LAB L200.14491 0.1-1.1 K/CU MM MONO ABS Normal 0.60 LAB L200.99183 0-0.5 K/CU MM EOS ABS Normal 0.10 LAB L200.94209 0-0.2 K/CU MM BASO ABS Normal 0.00 LAB L200.59998 Less than 1 % NRBC Normal 0.0 Performed By: #### L200.41911 #### [facility] [address] [place] [address] LACTIC ACID Collected: 03/18/2018 Status: F Source: [facility] 4:23 AM [facility] REPOSITORY Order Comment: [place]: M TYPE CODE TESTS RESULT OUT OF RANGE REFERENCE UNITS LAB L550.03853 0.40-2.00 MMOL/L Normal LACTIC ACID 0.97 Performed By: #### L550.63256 #### [facility] [address] [place] [address] CMP Collected: 03/18/2018 Status: F Source: [facility] 4:23 AM [facility] REPOSITORY Order Comment: [place]: M TYPE CODE TESTS RESULT OUT OF RANGE REFERENCE UNITS LAB L500.36554 136-145 MMOL/L Normal NA 136 LAB L500.22238 3.5-5.1 MMOL/L Normal K 3.9 LAB L500.36940 98-107 MMOL/L Low CL 97 LAB L500.44110 21-32 MMOL/L Normal CO2 32 LAB L500.03484 5-16 MMOL/L Normal AGAP 6 LAB L500.06615 70-100 MG/DL High GLU 133 Result Comment: 70-100- Normal Fasting; 100-125 Impaired Fasting; greater than 126 on more than one result- Diabetes. ADA guidelines. Results may be falsely elevated after the administration of Sulfapyridine. Results may be falsely depressed after the administration of Sulfasalazine. LAB L500.11000 7-26 MG/DL Normal BUN 12 LAB L500.09857 0.510-0.950 MG/DL Low CREAT 0.385 Result Comment: Patients receiving either N-Acetylcysteine (NAC) or Metamizole prior to venipuncture, may have falsely depressed results. LAB L500.52971 15-24 High BUN/CREA 31 LAB L500.82060 6.0-8.5 GM/DL Low TP 5.8 LAB L500.03365 3.2-5.0 GM/DL Low ALBUMIN 1.6 LAB L500.34046 2.2-4.2 GM/DL Normal GLOBULIN 4.2 LAB L500.34134 0.8-2.0 Low A/G RATIO 0.4 LAB L500.66680 8.5-10.1 MG/DL Normal CALCIUM TOTAL 8.8 LAB L500.11157 0.2-1.0 MG/DL Normal BILI TOTAL 0.4 LAB L500.99369 8-34 U/L High SGOT (AST) 285 Result Comment: RESULTS MAY BE FALSELY DEPRESSED AFTER THE ADMINISTRATION OF SULFASALAZINE AND/OR SULFAPYRIDINE. LAB L500.10738 13-61 IU/L High SGPT (ALT) 180 Result Comment: RESULTS MAY BE FALSELY DEPRESSED AFTER THE ADMINISTRATION OF SULFASALAZINE AND/OR SULFAPYRIDINE. LAB L500.66488 45-117 U/L High ALK PHOS 620 Performed By: #### L500.77647, L500.78919, L500.21890 #### [facility] [place] [address] GFR EST Collected: 03/18/2018 Status: F Source: [facility] 4:23 AM [facility] REPOSITORY Order Comment: [place]: M TYPE CODE TESTS RESULT OUT OF RANGE REFERENCE UNITS LAB L500.61689 ML/MIN Normal IF non-AFR Greater than AMER 60 LAB L500.21039 ML/MIN Normal IF Greater than AMER 60 Performed By: #### L500.44620, L500.70328, L500.13813 #### [facility] [address] [place] [id number] GGT Collected: 03/18/2018 Status: F Source: [facility] 4:23 AM [facility] REPOSITORY Order Comment: [place]: M TYPE CODE TESTS RESULT OUT OF RANGE REFERENCE UNITS LAB L500.61928 5-55 U/L High GGT 969 Performed By: #### L500.59065, L500.29805, L500.41183 #### [facility] [address] [place] [address] PTH INTACT Collected: 03/18/2018 Status: F Source: [facility] 4:23 AM [facility] REPOSITORY Order Comment: [place]: M TYPE CODE TESTS RESULT OUT OF RANGE REFERENCE UNITS LAB [id number] 18.5-88.0 PG/ML Normal PTH INTACT 38.9 Performed By: #### L550.23092 #### [facility] [address] [place] [address] HBSAG Collected: 03/18/2018 Status: F Source: [facility] 4:23 AM [facility] REPOSITORY Order Comment: [place]: M SPECIMEN SOURCE: BLOOD TYPE CODE TESTS RESULT OUT OF REFERENCE UNITS RANGE LAB [id number] NONREACTIVE NONREACTIVE Normal HBSAG Result Comment: RESULTS WERE OBTAINED WITH THE CENTAUR XP. VALUES OBTAINED WITH DIFFERENT MANUFACTURERS' ASSAY METHODS MAY NOT BE USED INTERCHANGEABLY. Performed By: #### L540.85361, L540.07764, L540.14374 #### [facility] [address] [place] [address] HEP B CORE IGM Collected: 03/18/2018 Status: F Source: [facility] 4:23 AM [facility] REPOSITORY Order Comment: [place]: M SPECIMEN SOURCE: BLOOD TYPE CODE TESTS RESULT OUT OF REFERENCE UNITS RANGE LAB L540.96825 NONREACTIVE NONREACTIVE Normal HEP B CORE IGM Result Comment: RESULTS WERE OBTAINED WITH THE [employer]IA CENTAUR XP ANTI-HBC IGM EIA. VALUES OBTAINED WITH DIFFERENT MANUFACTURERS' ASSAY METHODS MAY NOT BE USED INTERCHANGEABLY. These results may be falsely depressed in the presence of Biotin concentrations above 250 ng/ml. Performed By: #### L540.52588, L540.12026, L540.04848 #### [facility] [address] [place] [address] HEP B AB QUANT Collected: 03/18/2018 Status: F Source: [facility] 4:23 AM [facility] REPOSITORY Order Comment: [place]: M SPECIMEN SOURCE: BLOOD TYPE CODE TESTS RESULT OUT OF RANGE REFERENCE UNITS LAB L540.00069 0.00-9.99 mIU/mL Normal HEP B AB LESS THAN QUANT 3.10 Result Comment: STATUS OF IMMUNITY Protective Immunity: greater than or equal to 10 mIU/mL (Traceable to WHO International Reference Preparation) No Protective Immuniity: less than 10 mIU/mL Note: The magnitude of the measured result above the cutoff is not indicative of the total amount of antibody present. Performed By: #### L540.72504, L540.06484, L540.35258 #### [facility] [address] [place] [address] PROCALCITONIN Collected: 03/18/2018 Status: F Source: [facility] 4:23 AM [facility] REPOSITORY Order Comment: PCT SENT TO [facility] 03/18/18 0842 ZORAIDASHARADVICTOR MANUEL TYPE CODE TESTS RESULT OUT OF REFERENCE UNITS RANGE LAB L550.37674 0.00-0.50 NG/ML PROCALCITONIN Normal 0.37 Result Comment: PCT CONCENTRATION INTERPRETATION PCT <= 0.5 NG/ML: SYSTEMIC INFECTION (SEPSIS) IS NOT LIKELY. LOCAL BACTERIAL INFECTION IS POSSIBLE PCT >0.5 AND <=2.0 NG/ML: SYSTEMIC INFECTION (SEPSIS) IS POSSIBLE, BUT OTHER CONDITIONS ARE KNOWN TO ELEVATE PCT WELL PCT >2.0 NG/ML: SYSTEMIC INFECTION (SEPSIS) IS LIKELY UNLESS OTHER CAUSES ARE KNOWN PCT >=10.0 NG/ML: IMPORTANT SYSTEMIC INFLAMMATORY RESPONSE, ALMOST EXCLUSIVELY DUE TO SEVERE BACTERIAL SEPSIS OR SEPTIC SHOCK TEST PERFORMED BY [facility], [address] [place] [address] Performed By: #### L550.77506 #### [facility] [address] [place] [id number] PT Collected: 03/17/2018 Status: F Source: [facility] 5:52 AM [facility] REPOSITORY Order Comment: [place]: M TYPE CODE TESTS RESULT OUT OF RANGE REFERENCE UNITS LAB L300.75879 0.9-1.1 High INR 1.3 Result Comment: 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 For heart valve and shunt patients the range is 2.5 - 3.5. LAB L300.04519 9.4-12.0 SECONDS High 14.4 PTS Performed By: #### L300.41384 #### [facility] [address] [place] [address] CBC Collected: 03/17/2018 Status: F Source: [facility] 5:52 AM [facility] REPOSITORY Order Comment: [place]: M TYPE CODE TESTS RESULT OUT OF RANGE REFERENCE UNITS LAB L200.64420 4.5-11.0 K/CU MM Normal WBC 7.3 LAB L200.55273 3.90-5.30 M/CU MM Low RBC 3.20 LAB L200.96115 11.5-15.5 G/DL Low HGB 8.4 LAB L200.86428 35.0-47.0 % Low HCT 27.7 LAB L200.60353 80.0-99.0 fl Normal MCV 86.6 LAB L200.53415 32.0-36.0 GM/DL Low MCHC 30.3 LAB L200.91736 11-14.5 High RDW 17.7 LAB L200.41275 9.4-12.4 Low MPV 8.2 LAB L200.99359 150-450 K/CU MM Normal PLT 303 LAB L200.31602 Less than 1 % Normal NRBC 0.3 Performed By: #### L200.22967 #### [facility] [address] [place] [address] CMP Collected: 03/17/2018 Status: F Source: [facility] 5:52 AM [facility] REPOSITORY Order Comment: [place]: M TYPE CODE TESTS RESULT OUT OF RANGE REFERENCE UNITS LAB L500.36013 136-145 MMOL/L Normal NA 136 LAB L500.10075 3.5-5.1 MMOL/L Normal K 3.8 LAB L500.95462 98-107 MMOL/L Low CL 97 LAB L500.23406 21-32 MMOL/L Normal CO2 30 LAB L500.83033 5-16 MMOL/L Normal AGAP 9 LAB L500.77824 70-100 MG/DL High GLU 191 Result Comment: 70-100- Normal Fasting; 100-125 Impaired Fasting; greater than 126 on more than one result- Diabetes. ADA guidelines. Results may be falsely elevated after the administration of Sulfapyridine. Results may be falsely depressed after the administration of Sulfasalazine. LAB L500.96011 7-26 MG/DL Normal BUN 12 LAB L500.01526 0.510-0.950 MG/DL Low CREAT 0.461 Result Comment: Patients receiving either N-Acetylcysteine (NAC) or Metamizole prior to venipuncture, may have falsely depressed results. LAB L500.10958 15-24 High BUN/CREA 26 LAB L500.03071 6.0-8.5 GM/DL Low TP 5.4 LAB L500.23421 3.2-5.0 GM/DL Low ALBUMIN 1.6 LAB L500.24527 2.2-4.2 GM/DL Normal GLOBULIN 3.8 LAB L500.38036 0.8-2.0 Low A/G RATIO 0.4 LAB L500.21964 8.5-10.1 MG/DL Low CALCIUM TOTAL 8.1 LAB L500.79434 0.2-1.0 MG/DL Normal BILI TOTAL 0.4 LAB L500.99246 8-34 U/L High SGOT (AST) 846 Result Comment: RESULTS MAY BE FALSELY DEPRESSED AFTER THE ADMINISTRATION OF SULFASALAZINE AND/OR SULFAPYRIDINE. LAB L500.21619 13-61 IU/L High SGPT (ALT) 328 Result Comment: RESULTS MAY BE FALSELY DEPRESSED AFTER THE ADMINISTRATION OF SULFASALAZINE AND/OR SULFAPYRIDINE. LAB L500.18755 45-117 U/L High ALK PHOS 816 Performed By: #### L500.97158, L500.40637 #### [facility] [address] [place] [address] GFR EST Collected: 03/17/2018 Status: F Source: [facility] 5:52 AM [facility] REPOSITORY Order Comment: [place]: M TYPE CODE TESTS RESULT OUT OF RANGE REFERENCE UNITS LAB L500.64242 ML/MIN Normal IF non-AFR Greater than AMER 60 LAB L500.50760 ML/MIN Normal IF Greater than AMER 60 Performed By: #### L500.50669, L500.59673 #### [facility] [address] [place] [address] Observed: 03/17/2018 Status: F Source: [facility] BLOOD CULTURE 1:19 AM [facility] REPOSITORY Order Comment: [place]: M NO GROWTH AFTER 5 DAYS Performed By: #### M050.63883 #### [facility] [address] [place] [address] CMP Collected: 03/16/2018 Status: F Source: [facility] 6:19 AM [facility] REPOSITORY Order Comment: [place]: M TYPE CODE TESTS RESULT OUT OF RANGE REFERENCE UNITS LAB L500.12775 136-145 MMOL/L Normal NA 136 LAB L500.41600 3.5-5.1 MMOL/L Normal K 3.9 LAB L500.83963 98-107 MMOL/L Normal CL 99 LAB L500.68179 21-32 MMOL/L Normal CO2 30 LAB L500.05484 5-16 MMOL/L Normal AGAP 7 LAB L500.76509 70-100 MG/DL High GLU 206 Result Comment: 70-100- Normal Fasting; 100-125 Impaired Fasting; greater than 126 on more than one result- Diabetes. ADA guidelines. Results may be falsely elevated after the administration of Sulfapyridine. Results may be falsely depressed after the administration of Sulfasalazine. LAB L500.88675 7-26 MG/DL Normal BUN 12 LAB L500.06921 0.510-0.950 MG/DL Low CREAT 0.360 Result Comment: Patients receiving either N-Acetylcysteine (NAC) or Metamizole prior to venipuncture, may have falsely depressed results. LAB L500.37274 15-24 High BUN/CREA 33 LAB L500.58182 6.0-8.5 GM/DL Low TP 5.5 LAB L500.22323 3.2-5.0 GM/DL Low ALBUMIN 1.5 LAB L500.05850 2.2-4.2 GM/DL Normal GLOBULIN 4.0 LAB L500.95606 0.8-2.0 Low A/G RATIO 0.4 LAB L500.46433 8.5-10.1 MG/DL Low CALCIUM TOTAL 7.9 LAB L500.21822 0.2-1.0 MG/DL Normal BILI TOTAL 0.3 LAB L500.28411 8-34 U/L Normal SGOT (AST) 18 Result Comment: RESULTS MAY BE FALSELY DEPRESSED AFTER THE ADMINISTRATION OF SULFASALAZINE AND/OR SULFAPYRIDINE. LAB L500.17914 13-61 IU/L Low SGPT (ALT) 11 Result Comment: RESULTS MAY BE FALSELY DEPRESSED AFTER THE ADMINISTRATION OF SULFASALAZINE AND/OR SULFAPYRIDINE. LAB L500.65394 45-117 U/L High ALK PHOS 156 Performed By: #### L500.77780, L500.39015 #### [facility] [address] [place] [address] GFR EST Collected: 03/16/2018 Status: F Source: [facility] 6:19 AM [facility] REPOSITORY Order Comment: [place]: M TYPE CODE TESTS RESULT OUT OF RANGE REFERENCE UNITS LAB L500.10124 ML/MIN Normal IF non-AFR Greater than AMER 60 LAB L500.98518 ML/MIN Normal IF Greater than AMER 60 Performed By: #### L500.46742, L500.30202 #### [facility] [address] [place] [address] CBC W/DIFF Collected: 03/16/2018 Status: F Source: [facility] 6:18 AM [facility] REPOSITORY Order Comment: [place]: M TYPE CODE TESTS RESULT OUT OF RANGE REFERENCE UNITS LAB L200.06544 4.5-11.0 K/CU MM WBC Normal 7.3 LAB L200.51203 3.90-5.30 M/CU MM Low RBC 3.28 LAB L200.03803 11.5-15.5 G/DL Low HGB 8.9 LAB L200.24331 35.0-47.0 % Low HCT 28.3 LAB L200.38592 80.0-99.0 fl MCV Normal 86.3 LAB L200.18290 32.0-36.0 GM/DL Low MCHC 31.4 LAB L200.73311 11-14.5 High RDW 17.7 LAB L200.52601 9.4-12.4 Low MPV 8.2 LAB L200.38228 150-450 K/CU MM PLT Normal 333 LAB L200.20934 45-75 % High NEUTROPHILS % 78.0 LAB L200.65928 Less than 2 % IMMATURE Normal GRAN % 0.5 LAB L200.72214 20-40 % Low LYMPH % 10.4 LAB L200.21195 2-10 % MONOCYTE % Normal 10.0 LAB L200.75134 0-5 % EOSINOPHIL Normal % 0.8 LAB L200.86287 0-2 % BASOPHIL % Normal 0.3 LAB L200.30909 2.0-8.3 K/CU MM NEUTROPHIL Normal ABS 5.70 LAB L200.13221 Less than 2 K/CU MM IMMATR GRAN Normal ABS 0.00 LAB L200.25463 0.9-4.4 K/CU MM Low LYMPH ABS 0.80 LAB L200.70182 0.1-1.1 K/CU MM MONO ABS Normal 0.70 LAB L200.22581 0-0.5 K/CU MM EOS ABS Normal 0.10 LAB L200.59963 0-0.2 K/CU MM BASO ABS Normal 0.00 LAB L200.44280 Less than 1 % NRBC Normal 0.0 Performed By: #### L200.05788 #### [facility] [place] [address] PT Collected: 03/16/2018 Status: F Source: [facility] 6:18 AM [facility] REPOSITORY Order Comment: [place]: M TYPE CODE TESTS RESULT OUT OF RANGE REFERENCE UNITS LAB L300.51614 0.9-1.1 High INR 1.2 Result Comment: 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 For heart valve and shunt patients the range is 2.5 - 3.5. LAB L300.87688 9.4-12.0 SECONDS High 13.3 PTS Performed By: #### L300.56007 #### [facility] [address] [place] [address] UA COMPLETE Collected: 03/16/2018 Status: F Source: [facility] 12:20 AM [facility] REPOSITORY Order Comment: [place]: M TYPE CODE TESTS RESULT OUT OF REFERENCE UNITS RANGE LAB L600.72833 UA COLOR Normal Rachel LAB L600.52321 CLEAR UA Normal APPEARANCE Hazy LAB L600.08352 1.005-1.030 UA SPEC Normal GRAV 1.021 LAB L600.45115 UA PH Normal 7.0 LAB L600.00076 UA GLUCOSE Normal 150 LAB L600.65895 UA KETONE Normal 5 LAB L600.08542 UA Normal BILIRUBIN NEGATIVE LAB L600.03613 UA Normal UROBILINOGEN 4.0 LAB L600.65038 NEGATIVE UA PROTEIN Normal 100 LAB L600.38642 NEGATIVE UA BLOOD Normal NEGATIVE LAB L600.06996 NEGATIVE UA NITRITE Normal NEGATIVE LAB L600.20135 NEGATIVE UA LK Normal ESTERASE NEG LAB L600.04363 0-3 RBC/HPF UA RBC High 41 LAB L600.05848 0-5 EPI/HPF SQUAMOUS Normal EPIS 1 LAB L600.72538 NONE /HPF UA BACTERIA Normal NONE LAB L600.00981 MUCUS Normal TRACE LAB L600.36494 0-1 /LPF HYALINE Normal CAST 1 LAB L600.51247 HPF WBC CLUMPS Normal RARE Performed By: #### L600.00335 #### [facility] [address] [place] [address] Observed: 03/16/2018 Status: F Source: [facility] BLOOD CULTURE 12:20 AM [facility] REPOSITORY Order Comment: [place]: M NO GROWTH AFTER 5 DAYS Performed By: #### M050.30664 #### [facility] [address] [place] [address] PT Collected: 03/15/2018 Status: F Source: [facility] 4:12 AM [facility] REPOSITORY Order Comment: [place]: M TYPE CODE TESTS RESULT OUT OF RANGE REFERENCE UNITS LAB L300.18027 0.9-1.1 High INR 1.3 Result Comment: Recommended PT INR therapeutic range for detention and prophylactic therapy is 2.0 - 3.0. For heart valve and shunt patients the range is 2.5 - 3.5. LAB L300.57970 9.4-12.0 SECONDS High 14.0 PTS Performed By: #### L300.62220 #### [facility] [address] [place] [address] CBC W/DIFF Collected: 03/14/2018 Status: F Source: [facility] 4:09 AM [facility] REPOSITORY Order Comment: [place]: TYPE CODE TESTS RESULT OUT OF RANGE REFERENCE UNITS LAB L200.03960 4.5-11.0 K/CU MM WBC Normal 6.2 LAB L200.43811 3.90-5.30 M/CU MM Low RBC 3.26 LAB L200.78219 11.5-15.5 G/DL Low HGB 8.9 LAB L200.19844 35.0-47.0 % Low HCT 28.4 LAB L200.48570 80.0-99.0 fl MCV Normal 87.1 LAB L200.02801 32.0-36.0 GM/DL Low MCHC 31.3 LAB L200.89111 11-14.5 High RDW 18.4 LAB L200.76986 9.4-12.4 Low MPV 8.4 LAB L200.99508 150-450 K/CU MM PLT Normal 335 LAB L200.17634 45-75 % High NEUTROPHILS % 77.0 LAB L200.18098 Less than 2 % IMMATURE Normal GRAN % 0.6 LAB L200.89713 20-40 % Low LYMPH % 11.6 LAB L200.80286 2-10 % MONOCYTE % Normal 9.5 LAB L200.20333 0-5 % EOSINOPHIL Normal % 1.1 LAB L200.82257 0-2 % BASOPHIL % Normal 0.2 LAB L200.41469 2.0-8.3 K/CU MM NEUTROPHIL Normal ABS 4.80 LAB L200.32060 Less than 2 K/CU MM IMMATR GRAN Normal ABS 0.00 LAB L200.60859 0.9-4.4 K/CU MM Low LYMPH ABS 0.70 LAB L200.00829 0.1-1.1 K/CU MM MONO ABS Normal 0.60 LAB L200.60948 0-0.5 K/CU MM EOS ABS Normal 0.10 LAB L200.62899 0-0.2 K/CU MM BASO ABS Normal 0.00 LAB L200.43383 Less than 1 % NRBC Normal 0.0 Performed By: #### L200.42767 #### [facility] [address] [place] [address] PT Collected: 03/14/2018 Status: F Source: [facility] 4:09 AM [facility] REPOSITORY Order Comment: [place]: M TYPE CODE TESTS RESULT OUT OF RANGE REFERENCE UNITS LAB L300.79523 0.9-1.1 High INR 1.3 Result Comment: Recommended PT INR therapeutic range for detention and prophylactic therapy is 2.0 - 3.0. For heart valve and shunt patients the range is 2.5 - 3.5. LAB L300.19228 9.4-12.0 SECONDS High 14.4 PTS Performed By: #### L300.66198 #### [facility] [address] [place] [address] CMP Collected: 03/14/2018 Status: F Source: [facility] 4:09 AM [facility] REPOSITORY Order Comment: [place]: M TYPE CODE TESTS RESULT OUT OF RANGE REFERENCE UNITS LAB L500.88985 136-145 MMOL/L Normal NA 137 LAB L500.37740 3.5-5.1 MMOL/L Normal K 4.3 LAB L500.32434 98-107 MMOL/L Low CL 97 LAB L500.52820 21-32 MMOL/L Normal CO2 32 LAB L500.33638 5-16 MMOL/L Normal AGAP 8 LAB L500.82690 70-100 MG/DL High GLU 142 Result Comment: 70-100- Normal Fasting; 100-125 Impaired Fasting; greater than 126 on more than one result- Diabetes. ADA guidelines. Results may be falsely elevated after the administration of Sulfapyridine. Results may be falsely depressed after the administration of Sulfasalazine. LAB L500.73361 7-26 MG/DL Normal BUN 20 LAB L500.05387 0.510-0.950 MG/DL Low CREAT 0.435 Result Comment: Patients receiving either N-Acetylcysteine (NAC) or Metamizole prior to venipuncture, may have falsely depressed results. LAB L500.16176 15-24 High BUN/CREA 46 LAB L500.12037 6.0-8.5 GM/DL Low TP 5.3 LAB L500.59819 3.2-5.0 GM/DL Low ALBUMIN 1.5 LAB L500.12216 2.2-4.2 GM/DL Normal GLOBULIN 3.8 LAB L500.80277 0.8-2.0 Low A/G RATIO 0.4 LAB L500.36710 8.5-10.1 MG/DL Normal CALCIUM TOTAL 8.5 LAB L500.10929 0.2-1.0 MG/DL Normal BILI TOTAL 0.2 LAB L500.30912 8-34 U/L Normal SGOT (AST) 14 Result Comment: RESULTS MAY BE FALSELY DEPRESSED AFTER THE ADMINISTRATION OF SULFASALAZINE AND/OR SULFAPYRIDINE. LAB L500.72759 13-61 IU/L Low SGPT LESS (ALT) THAN 6 Result Comment: RESULTS MAY BE FALSELY DEPRESSED AFTER THE ADMINISTRATION OF SULFASALAZINE AND/OR SULFAPYRIDINE. LAB L500.80960 45-117 U/L High ALK PHOS 158 Performed By: #### L500.06485, L500.42753 #### [facility] [address] [place] [address] #### L520.01765 #### [facility] [address] [place] [phone] GFR EST Collected: 03/14/2018 Status: F Source: [facility] 4:09 AM [facility] REPOSITORY Order Comment: [place]: TYPE CODE TESTS RESULT OUT OF RANGE REFERENCE UNITS LAB L500.91718 ML/MIN Normal IF non-AFR Greater than AMER 60 LAB L500.52365 ML/MIN Normal IF Greater than AMER 60 Performed By: #### L500.77408, L500.69685 #### [facility] [address] [place] [address] #### L520.08556 #### [facility] [address] [place] [phone] VORICONAZOLE Collected: 03/14/2018 Status: F Source: [facility] 4:09 AM [facility] REPOSITORY Order Comment: [place]: M TYPE CODE TESTS RESULT OUT OF REFERENCE UNITS RANGE LAB L520.75503 () ug/mL VORICONAZOLE Normal 3.2 Result Comment: The median values for the mean and maxiumum Voriconazole plasma concentrations in individual patients were 2.51 ug/mL (inter-quartile range 1.21 - 4.44 ug/mL) and 3.79 ug/mL (inter-quartile range 2.06 -6.31 ug/mL), respectively. A trough serum concentration greater than 0.5 to 2.0 ug/mL is recommended for treatment of fungal infection, while a trough concentration greater than 0.5 ug/mL is recommended for prophylaxis. Reversible neurotoxicity has been reported in patients with Voriconazole trough concentrations above 5.5 ug/mL. This test was developed and its performance characteristics determined by [facility]. It has not been cleared or approved by the Food and Drug Administration. The FDA has determined that such clearance or approval is not necessary. Performed At: [facility] [id number] Ceci Franco [place] [id number] Performed By: #### L500.51512, L500.26022 #### [facility] [address] [place] [address] #### L520.80462 #### [facility] [id number] PROG.NOTE Observed: 03/13/2018 Status: UNK Source: [facility] 11:11 AM [facility] REPOSITORY [facility] Patient Name: VENITA SMITH [address] [place] [address] Date of : [address] [address] Unit Number: [id number] Progress Note-Physician Patient Status: REG RCR Attending Doctor: Dimitri Smith MD Service Date: 03/13/18 1111 Subjective S: (2 ROS minimum) Feeling well, no fever, no n/v/d. No rash with iv abx. Legs doing well. Objective (ROS) Physical Exam Neurological / Psychiatric Alert Respiratory Normal Breathing Effort, Clear Lungs Cardiovascular Heart RRR, No M / R / G Gastrointestinal Non Tender, No Mass Skin R foot incision healing well. LLE with wound vac. Assessment and Plan Conclusion 1. Osteomyelitis Plan Doing well, reviewed labs and vital. 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 - continue meropenem and voriconazole. Plan on at least 6 week course for both. Requesting additional records from [facility]. - will order random vori level. Will follow. Disclaimer This dictation was created using voice recognition software. Phonetic and/or minor grammatical errors may exist. eSign Date and Time Syeda Palmer MD Verified/Reviewed by 03/13/18 1115 CBC Collected: 03/13/2018 Status: F Source: [facility] 4:09 AM [facility] REPOSITORY Order Comment: [place]: M TYPE CODE TESTS RESULT OUT OF RANGE REFERENCE UNITS LAB L200.82224 4.5-11.0 K/CU MM Normal WBC 7.3 LAB L200.19462 3.90-5.30 M/CU MM Low RBC 3.09 LAB L200.87157 11.5-15.5 G/DL Low HGB 8.3 LAB L200.97133 35.0-47.0 % Low HCT 26.2 LAB L200.34550 80.0-99.0 fl Normal MCV 84.8 LAB L200.48350 32.0-36.0 GM/DL Low MCHC 31.7 LAB L200.06186 11-14.5 High RDW 19.1 LAB L200.38572 9.4-12.4 Low MPV 8.6 LAB L200.19487 150-450 K/CU MM Normal PLT 306 LAB L200.00868 Less than 1 % Normal NRBC 0.0 Performed By: #### L200.13176 #### [facility] [address] [place] [address] BMP Collected: 03/13/2018 Status: F Source: [facility] 4:09 AM [facility] REPOSITORY Order Comment: [place]: M TYPE CODE TESTS RESULT OUT OF RANGE REFERENCE UNITS LAB L500.28123 136-145 MMOL/L Normal NA 138 LAB L500.84765 3.5-5.1 MMOL/L Normal K 4.0 LAB L500.77784 98-107 MMOL/L Normal CL 99 LAB L500.33793 21-32 MMOL/L High CO2 33 LAB L500.83347 5-16 MMOL/L Normal AGAP 7 LAB L500.62256 70-100 MG/DL High GLU 108 Result Comment: 70-100- Normal Fasting; 100-125 Impaired Fasting; greater than 126 on more than one result- Diabetes. ADA guidelines. Results may be falsely elevated after the administration of Sulfapyridine. Results may be falsely depressed after the administration of Sulfasalazine. LAB L500.36741 7-26 MG/DL Normal BUN 17 LAB L500.02886 0.510-0.950 MG/DL Normal CREAT 0.538 Result Comment: Patients receiving either N-Acetylcysteine (NAC) or Metamizole prior to venipuncture, may have falsely depressed results. LAB L500.06784 15-24 BUN/CREA High 32 LAB L500.12509 8.5-10.1 MG/DL Low CALCIUM TOTAL 8.0 Performed By: #### L500.53868, L500.45839 #### [facility] [address] [place] [address] GFR EST Collected: 03/13/2018 Status: F Source: [facility] 4:09 AM [facility] REPOSITORY Order Comment: [place]: M TYPE CODE TESTS RESULT OUT OF RANGE REFERENCE UNITS LAB L500.94065 ML/MIN Normal IF non-AFR Greater than AMER 60 LAB L500.12667 ML/MIN Normal IF Greater than AMER 60 Performed By: #### L500.32301, L500.14721 #### [facility] [address] [place] [address] PT Collected: 03/12/2018 Status: F Source: [facility] 5:36 AM [facility] REPOSITORY Order Comment: [place]: M TYPE CODE TESTS RESULT OUT OF RANGE REFERENCE UNITS LAB L300.90410 0.9-1.1 High INR 1.3 Result Comment: Recommended PT INR therapeutic range for detention and prophylactic therapy is 2.0 - 3.0. For heart valve and shunt patients the range is 2.5 - 3.5. LAB L300.93457 9.4-12.0 SECONDS High 13.7 PTS Performed By: #### L300.38273 #### [facility] [address] [place] [address] CBC Collected: 03/12/2018 Status: F Source: [facility] 5:36 AM [facility] REPOSITORY Order Comment: [place]: M TYPE CODE TESTS RESULT OUT OF RANGE REFERENCE UNITS LAB L200.52874 4.5-11.0 K/CU MM Normal WBC 7.0 LAB L200.32108 3.90-5.30 M/CU MM Low RBC 2.34 LAB L200.09136 11.5-15.5 G/DL Low alert HGB 6.4 Result Comment: Repeated and verified.. Critical result verified and has been called to JOSELO GURERA by Vanessa Engel on 03/12/18 at 06:16, and has been read back. LAB L200.71489 35.0-47.0 % Low HCT 20.3 LAB L200.16093 80.0-99.0 fl Normal MCV 86.8 LAB L200.06738 32.0-36.0 GM/DL Low MCHC 31.5 LAB L200.06034 11-14.5 High RDW 17.8 LAB L200.54933 9.4-12.4 Low MPV 8.7 LAB L200.59451 150-450 K/CU MM Normal PLT 289 LAB L200.98515 Less than 1 % Normal NRBC 0.0 Performed By: #### [id number] #### [facility] [address] [place] [address] BMP Collected: 03/12/2018 Status: F Source: [facility] 5:36 AM [facility] REPOSITORY Order Comment: [place]: M TYPE CODE TESTS RESULT OUT OF RANGE REFERENCE UNITS LAB L500.49146 136-145 MMOL/L Normal NA 137 LAB L500.09713 3.5-5.1 MMOL/L Normal K 3.8 LAB L500.51039 98-107 MMOL/L Normal CL 99 LAB L500.26539 21-32 MMOL/L Normal CO2 30 LAB L500.44812 5-16 MMOL/L Normal AGAP 8 LAB L500.43375 70-100 MG/DL High GLU 155 Result Comment: 70-100- Normal Fasting; 100-125 Impaired Fasting; greater than 126 on more than one result- Diabetes. ADA guidelines. Results may be falsely elevated after the administration of Sulfapyridine. Results may be falsely depressed after the administration of Sulfasalazine. LAB L500.19865 7-26 MG/DL Normal BUN 15 LAB L500.92913 0.510-0.950 MG/DL Low CREAT 0.477 Result Comment: Patients receiving either N-Acetylcysteine (NAC) or Metamizole prior to venipuncture, may have falsely depressed results. LAB L500.03577 15-24 BUN/CREA High 31 LAB L500.59058 8.5-10.1 MG/DL Low CALCIUM TOTAL 7.7 Performed By: #### L500.84590, L500.54145 #### [facility] [address] [place] [address] GFR EST Collected: 03/12/2018 Status: F Source: [facility] 5:36 AM [facility] REPOSITORY Order Comment: [place]: M TYPE CODE TESTS RESULT OUT OF RANGE REFERENCE UNITS LAB L500.31693 ML/MIN Normal IF non-AFR Greater than AMER 60 LAB L500.70521 ML/MIN Normal IF Greater than AMER 60 Performed By: #### L500.73971, L500.29351 #### [facility] [address] [place] [address] TS Collected: 03/12/2018 Status: F Source: [facility] 5:36 AM [facility] REPOSITORY Order Comment: [place]: M Is This Patient Going To Surgery? N Tranfuse Now? Y Irradiated: N Patient transfused or in the past 3 months: NO Transfuse slowly @ 120Ml/hr x15min, then increase rate: As Tolerated Acute Hemorrhage Indication: Hgb < 7.0 TYPE CODE TESTS RESULT OUT OF RANGE REFERENCE UNITS LAB B100.0400 A Normal BLOOD TYPE POSITIVE LAB B100.0680 Normal ANTIBODY NEGATIVE SCREEN PATIENT RETYPE Collected: 03/12/2018 Status: F Source: [facility] 5:36 AM [facility] REPOSITORY Order Comment: [place]: M Is This Patient Going To Surgery? N Tranfuse Now? Y Irradiated: N Patient transfused or in the past 3 months: NO Transfuse slowly @ 120Ml/hr x15min, then increase rate: As Tolerated Acute Hemorrhage Indication: Hgb < 7.0 TYPE CODE TESTS RESULT OUT OF RANGE REFERENCE UNITS LAB B100.43327 A Normal RETYPE POSITIVE INTERP RBC ACT Collected: 03/12/2018 Status: F Source: [facility] 5:36 AM [facility] REPOSITORY TYPE CODE TESTS RESULT OUT OF REFERENCE UNITS RANGE LAB U800.001 RBC TRANSFUSED ACT PRODUCT: RBC ACTIVE BLEEDING COUNT: 2 PT Collected: 03/11/2018 Status: F Source: [facility] 4:37 AM [facility] REPOSITORY Order Comment: [place]: M TYPE CODE TESTS RESULT OUT OF RANGE REFERENCE UNITS LAB L300.77926 0.9-1.1 High INR 1.2 Result Comment: 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 For heart valve and shunt patients the range is 2.5 - 3.5. LAB L300.36016 9.4-12.0 SECONDS High 13.0 PTS Performed By: #### L300.23711 #### [facility] [address] [place] [address] CMP Collected: 03/11/2018 Status: F Source: [facility] 4:37 AM [facility] REPOSITORY Order Comment: [place]: M TYPE CODE TESTS RESULT OUT OF RANGE REFERENCE UNITS LAB L500.63582 136-145 MMOL/L Low NA 133 LAB L500.64079 3.5-5.1 MMOL/L Normal K 3.8 LAB L500.71607 98-107 MMOL/L Low CL 94 LAB L500.98176 21-32 MMOL/L Normal CO2 30 LAB L500.23929 5-16 MMOL/L Normal AGAP 10 LAB L500.50071 70-100 MG/DL High GLU 163 Result Comment: 70-100- Normal Fasting; 100-125 Impaired Fasting; greater than 126 on more than one result- Diabetes. ADA guidelines. Results may be falsely elevated after the administration of Sulfapyridine. Results may be falsely depressed after the administration of Sulfasalazine. LAB L500.61570 7-26 MG/DL Normal BUN 13 LAB L500.73881 0.510-0.950 MG/DL Low CREAT 0.478 Result Comment: Patients receiving either N-Acetylcysteine (NAC) or Metamizole prior to venipuncture, may have falsely depressed results. LAB L500.74180 15-24 High BUN/CREA 27 LAB L500.35494 6.0-8.5 GM/DL Low TP 5.2 LAB L500.35623 3.2-5.0 GM/DL Low ALBUMIN 1.4 LAB L500.42130 2.2-4.2 GM/DL Normal GLOBULIN 3.8 LAB L500.38995 0.8-2.0 Low A/G RATIO 0.4 LAB L500.50018 8.5-10.1 MG/DL Low CALCIUM TOTAL 8.1 LAB L500.04847 0.2-1.0 MG/DL Normal BILI TOTAL 0.3 LAB L500.64568 8-34 U/L Normal SGOT (AST) 18 Result Comment: RESULTS MAY BE FALSELY DEPRESSED AFTER THE ADMINISTRATION OF SULFASALAZINE AND/OR SULFAPYRIDINE. LAB L500.02513 13-61 IU/L Low SGPT (ALT) 7 Result Comment: RESULTS MAY BE FALSELY DEPRESSED AFTER THE ADMINISTRATION OF SULFASALAZINE AND/OR SULFAPYRIDINE. LAB L500.01246 45-117 U/L High ALK PHOS 189 Performed By: #### L500.45191, L500.49970 #### [facility] [address] [place] [address] GFR EST Collected: 03/11/2018 Status: F Source: [facility] 4:37 AM [facility] REPOSITORY Order Comment: [place]: M TYPE CODE TESTS RESULT OUT OF RANGE REFERENCE UNITS LAB L500.75991 ML/MIN Normal IF non-AFR Greater than AMER 60 LAB L500.51731 ML/MIN Normal IF Greater than AMER 60 Performed By: #### L500.38475, L500.19802 #### [facility] [address] [place] [address] PT Collected: 03/10/2018 Status: F Source: [facility] 5:12 AM [facility] REPOSITORY Order Comment: [place]: M TYPE CODE TESTS RESULT OUT OF RANGE REFERENCE UNITS LAB L300.59712 0.9-1.1 High INR 1.2 Result Comment: Recommended PT INR therapeutic range for detention and prophylactic therapy is 2.0 - 3.0. For heart valve and shunt patients the range is 2.5 - 3.5. LAB L300.26461 9.4-12.0 SECONDS High 12.5 PTS Performed By: #### L300.30794 #### [facility] [address] [place] [address] HP.[email or web address] Observed: 03/09/2018 Status: UNK Source: [facility] 9:21 AM [facility] REPOSITORY [facility] Patient Name: VENITA SMITH [address] [facility] Date of : [address] [address] Unit Number: [id number] CONSULTATION-HandP Patient Status: REG RCR Attending Doctor: Dimitri Smith MD Service Date: 03/09/18920 History of Present Illness Referring Physician Dimitri Smith MD Reason for Consult wound infection, osteomyelitis History of Present Illness 67-year-old female with history of diabetes, CAD status post CABG, who was transferred from [facility] to [facility] for ongoing management of a sacral wound infection and right foot osteomyelitis. The patient was being followed by Dr. Palmer at [facility]. Per his report, the patient had right foot osteomyelitis diagnosed in January. She also had concurrent heart disease and underwent CABG at [facility]. She also had a right foot biopsy that reportedly showed coag- negative staph and Aspergillus. Patient was discharged on Ancef and voriconazole to the long-term acute care hospital at [facility]. Patient was readmitted with fever and found to have stage III sacral ulcer and a large left barboza blood-filled bulla next 2 the vein donor site. Patient was taken for incision and debridement of the left lower extremity as well as the sacral wound. Cultures from the sacral wound reportedly grew ESBL Escherichia coli. Cultures from the left leg debridement reportedly were negative. The patient was transferred to [facility] on meropenem and voriconazole. Plan from meropenem was apparently for a 6 week course. Patient currently denies any fevers or chills. No trouble breathing. No abdominal pain. Significant pain at this time. Currently has wound vacs on the sacral area in the left lower extremity. Her left lower extremity wounds are rather extensive. Pictures done in [facility] were reviewed. Past Medical/Surgical Hx Past Medical History Left lower extremity hematoma Sacral decubitus ulcer Right foot osteomyelitis CAD Left upper extremity DVT Obesity Diabetes Sleep apnea COPD Allergic rhinitis Asthma Hypertension Hyperlipidemia Past Surgical History CABG - patient says this was done on 02/15/18 IandD left lower extremity hematoma Allergies/Home Medications Inpatient Medications Sliding scale insulin Acetaminophen 1 g by mouth every 8 hours Aspirin 81 mg by mouth daily Breo 1 puff inhaled daily Carvedilol 6.25 mg by mouth twice a day Plavix 75 mg by mouth daily Lidocaine patch topically daily Ferrex 150 forte 1 capsule by mouth twice a day Folic acid 1 mg by mouth daily Lasix 40 mg by mouth daily Gabapentin 600 mg by mouth 3 times a day Glipizide 20 mg by mouth daily Humalog 18 units subcutaneous twice daily with meals Humalog 22 units subcutaneous before breakfast Ipratropium albuterol 3 mL inhaled 3 times daily Lantus 20 units subcutaneous at bedtime Lisinopril 5 mg by mouth daily Loratadine 10 mg by mouth daily Melatonin 3 mg by mouth at bedtime Meropenem 500 mg IV every 6 hours Pantoprazole 40 mg by mouth before breakfast Nystatin powder topically twice a day Polyethylene glycol 17 g by mouth daily Senna 17.2 mg by mouth twice a day Vitamin B12 1000 g by mouth daily vitamin C 500 mg by mouth twice daily Voriconazole 200 mg by mouth every 12 hours Warfarin 3 mg by mouth daily PRN medications: Bisacodyl Cepacol Dextrose Glucagen Glutose Oxycodone Physical Exam Vital Signs Tmax 99.6 Tcurrent 97 Heart rate 88 Respirations 18 Blood pressure 110/60 Physical Exam Summary Gen.: Alert, oriented, no acute distress. Eyes: No scleral icterus. ENT: Mucous members are moist. Cardiac: Regular rate and rhythm. Systolic murmur. Lungs: clear anterolaterally. Abdomen: soft, nontender, nondistended. Positive bowel sounds. Genitourinary: Allen catheter present. Extremity: Wound VAC over large area of the left lower extremity. Right upper extremity PICC line intact. Skin: Sacral wound VAC. Right great toe dry wound dorsally over the MTP area. No surrounding erythema. Neuro: Speech clear and fluent. Psych: Affect normal. Additional Laboratory Tests Test Result Date Time Chemistry Sodium (136 - 145 MMOL/L) 138 03/09 426 Potassium (3.5 - 5.1 MMOL/L) 4.7 03/09 426 Chloride (98 - 107 MMOL/L) 99 03/09 426 Carbon Dioxide (21 - 32 MMOL/L) 32 03/09 426 Anion Gap (5 - 16 MMOL/L) 7 03/09 426 BUN (7 - 26 MG/DL) 20 03/09 426 Creatinine (0.510 - 0.950 MG/DL) 0.478 L 03/09 426 Est GFR ( Amer) (ML/MIN) Greater than 60 03/09 426 Est GFR (Non-Af Amer) (ML/MIN) Greater than 60 03/09 426 BUN/Creatinine Ratio (15 - 24) 42 H 03/09 426 Glucose (70 - 100 MG/DL) 173 H 03/09 426 Total Calcium (8.5 - 10.1 MG/DL) 7.9 L 03/09 426 Phosphorus (2.5 - 4.9 MG/DL) 2.6 03/09 426 Magnesium (1.6 - 2.6 MG/DL) 1.8 03/09 426 Total Bilirubin (0.2 - 1.0 MG/DL) 0.3 03/09 426 AST (8 - 34 U/L) 20 03/09 426 ALT (13 - 61 IU/L) 12 L 03/09 426 Alkaline Phosphatase (45 - 117 U/L) 236 H 03/09 426 Serum Total Protein (6.0 - 8.5 GM/DL) 5.1 L 03/09 426 Albumin (3.2 - 5.0 GM/DL) 1.4 L 03/09 426 Globulin (2.2 - 4.2 GM/DL) 3.7 03/09 426 Albumin/Globulin Ratio (0.8 - 2.0) 0.4 L 03/09 426 Coagulation INR (0.9 - 1.1) 1.1 03/09 426 PT Normal Mean Secs (9.4 - 12.0 SECONDS) 11.7 03/09 426 Hematology WBC (4.5 - 11.0 K/CU MM) 5.6 03/09 426 RBC (3.90 - 5.30 M/CU MM) 3.38 L 03/09 426 Hgb (11.5 - 15.5 G/DL) 8.9 L 03/09 426 Hct (35.0 - 47.0 %) 30.1 L 03/09 426 MCV (80.0 - 99.0 fl) 89.1 03/09 426 MCHC (32.0 - 36.0 GM/DL) 29.6 L 03/09 426 RDW (11 - 14.5) 17.1 H 03/09 426 Plt Count (150 - 450 K/CU MM) 220 03/09 426 MPV (9.4 - 12.4) 8.4 L 03/09 426 Immature Gran % (Auto) (Less than 2 %) 0.7 03/09 426 Abs Immat Gran (auto) (Less than 2 K/CU MM) 0.00 03/09 426 Seg Neutrophils % (45 - 75 %) 73.9 03/09 426 Lymphocytes % (20 - 40 %) 10.1 L 03/09 426 Monocytes % (2 - 10 %) 13.8 H 03/09 426 Eosinophils % (0 - 5 %) 1.3 03/09 426 Basophils % (0 - 2 %) 0.2 03/09 426 Neutrophils # (2.0 - 8.3 K/CU MM) 4.10 03/09 426 Lymphocytes # (0.9 - 4.4 K/CU MM) 0.60 L 03/09 426 Monocytes # (0.1 - 1.1 K/CU MM) 0.80 03/09 426 Eosinophils # (0 - 0.5 K/CU MM) 0.10 03/09 426 Basophils # (0 - 0.2 K/CU MM) 0.00 03/09 426 Nucleated RBCs (Less than 1 %) 0.0 03/09 426 Toxicology Zinc Pending 03/09 426 Conclusion / Plan Conclusion 1. A/P Plan Sacral decubitus wound infection with ESBL Escherichia coli. Status post debridement. Right foot osteomyelitis with recent bone biopsy showing coag- negative staph and Aspergillus, per report. Large left lower extremity hematoma status post incision and drainage. Cultures reportedly negative. Continue with meropenem and voriconazole. Continue wound care. Patient looks clinically stable. Disclaimer This dictation was created using voice recognition software. Phonetic and/or minor grammatical errors may exist. eSign Date and Time Goldy Chen MD Verified/Reviewed by 03/09/18 0940 PT Collected: 03/09/2018 Status: F Source: [facility] 4:26 AM [facility] REPOSITORY Order Comment: [place]: M TYPE CODE TESTS RESULT OUT OF RANGE REFERENCE UNITS LAB L300.96623 0.9-1.1 Normal INR 1.1 Result Comment: 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 For heart valve and shunt patients the range is 2.5 - 3.5. LAB L300.05850 9.4-12.0 SECONDS Normal PTS 11.7 Performed By: #### L300.23500 #### [facility] [place] [address] CBC W/DIFF Collected: 03/09/2018 Status: F Source: [facility] 4:26 AM [facility] REPOSITORY Order Comment: [place]: M TYPE CODE TESTS RESULT OUT OF RANGE REFERENCE UNITS LAB L200.23374 4.5-11.0 K/CU MM WBC Normal 5.6 LAB L200.24400 3.90-5.30 M/CU MM Low RBC 3.38 LAB L200.82123 11.5-15.5 G/DL Low HGB 8.9 LAB L200.87629 35.0-47.0 % Low HCT 30.1 LAB L200.61932 80.0-99.0 fl MCV Normal 89.1 LAB L200.97176 32.0-36.0 GM/DL Low MCHC 29.6 LAB L200.81113 11-14.5 High RDW 17.1 LAB L200.06369 9.4-12.4 Low MPV 8.4 LAB L200.20655 150-450 K/CU MM PLT Normal 220 LAB L200.51700 45-75 % NEUTROPHILS Normal % 73.9 LAB L200.49712 Less than 2 % IMMATURE Normal GRAN % 0.7 LAB L200.16328 20-40 % Low LYMPH % 10.1 LAB L200.47293 2-10 % High MONOCYTE % 13.8 LAB L200.55563 0-5 % EOSINOPHIL Normal % 1.3 LAB L200.84354 0-2 % BASOPHIL % Normal 0.2 LAB L200.24414 2.0-8.3 K/CU MM NEUTROPHIL Normal ABS 4.10 LAB L200.14996 Less than 2 K/CU MM IMMATR GRAN Normal ABS 0.00 LAB L200.38715 0.9-4.4 K/CU MM Low LYMPH ABS 0.60 LAB L200.74979 0.1-1.1 K/CU MM MONO ABS Normal 0.80 LAB L200.11954 0-0.5 K/CU MM EOS ABS Normal 0.10 LAB L200.34214 0-0.2 K/CU MM BASO ABS Normal 0.00 LAB L200.65850 Less than 1 % NRBC Normal 0.0 Performed By: #### L200.18325 #### [facility] [address] [place] [address] CMP Collected: 03/09/2018 Status: F Source: [facility] 4:26 AM [facility] REPOSITORY Order Comment: [place]: M TYPE CODE TESTS RESULT OUT OF RANGE REFERENCE UNITS LAB L500.74546 136-145 MMOL/L Normal NA 138 LAB L500.66421 3.5-5.1 MMOL/L Normal K 4.7 LAB L500.60884 98-107 MMOL/L Normal CL 99 LAB L500.93614 21-32 MMOL/L Normal CO2 32 LAB L500.09989 5-16 MMOL/L Normal AGAP 7 LAB L500.67567 70-100 MG/DL High GLU 173 Result Comment: 70-100- Normal Fasting; 100-125 Impaired Fasting; greater than 126 on more than one result- Diabetes. ADA guidelines. Results may be falsely elevated after the administration of Sulfapyridine. Results may be falsely depressed after the administration of Sulfasalazine. LAB L500.07351 7-26 MG/DL Normal BUN 20 LAB L500.90187 0.510-0.950 MG/DL Low CREAT 0.478 Result Comment: Patients receiving either N-Acetylcysteine (NAC) or Metamizole prior to venipuncture, may have falsely depressed results. LAB L500.15241 15-24 High BUN/CREA 42 LAB L500.20761 6.0-8.5 GM/DL Low TP 5.1 LAB L500.59982 3.2-5.0 GM/DL Low ALBUMIN 1.4 LAB L500.31747 2.2-4.2 GM/DL Normal GLOBULIN 3.7 LAB L500.89720 0.8-2.0 Low A/G RATIO 0.4 LAB L500.58310 8.5-10.1 MG/DL Low CALCIUM TOTAL 7.9 LAB L500.64577 0.2-1.0 MG/DL Normal BILI TOTAL 0.3 LAB L500.85697 8-34 U/L Normal SGOT (AST) 20 Result Comment: RESULTS MAY BE FALSELY DEPRESSED AFTER THE ADMINISTRATION OF SULFASALAZINE AND/OR SULFAPYRIDINE. LAB L500.14851 13-61 IU/L Low SGPT (ALT) 12 Result Comment: RESULTS MAY BE FALSELY DEPRESSED AFTER THE ADMINISTRATION OF SULFASALAZINE AND/OR SULFAPYRIDINE. LAB L500.47238 45-117 U/L High ALK PHOS 236 Performed By: #### L500.78056, L500.29620, L500.77668, L500.12577 #### [facility] [address] [place] [address] GFR EST Collected: 03/09/2018 Status: F Source: [facility] 4:26 AM [facility] REPOSITORY Order Comment: [place]: M TYPE CODE TESTS RESULT OUT OF RANGE REFERENCE UNITS LAB L500.69998 ML/MIN Normal IF non-AFR Greater than AMER 60 LAB L500.73742 ML/MIN Normal IF Greater than AMER 60 Performed By: #### L500.33504, L500.62724, L500.41609, L500.88711 #### [facility] [address] [place] [address] PHOS Collected: 03/09/2018 Status: F Source: [facility] 4:26 AM [facility] REPOSITORY Order Comment: [place]: M TYPE CODE TESTS RESULT OUT OF RANGE REFERENCE UNITS LAB L500.52247 2.5-4.9 MG/DL Normal PHOS 2.6 Performed By: #### L500.48810, L500.67529, L500.00709, L500.11482 #### [facility] [address] [place] [address] MAGNESIUM Collected: 03/09/2018 Status: F Source: [facility] 4:26 AM [facility] REPOSITORY Order Comment: [place]: M TYPE CODE TESTS RESULT OUT OF RANGE REFERENCE UNITS LAB L500.33962 1.6-2.6 MG/DL Normal MAGNESIUM 1.8 Performed By: #### L500.69933, L500.16991, L500.55993, L500.63429 #### [facility] [address] [place] [address] ZINC Collected: 03/09/2018 Status: F Source: [facility] 4:26 AM [facility] REPOSITORY Order Comment: [place]: M TYPE CODE TESTS RESULT OUT OF RANGE REFERENCE UNITS LAB L550.38340 56-134 ug/dL Normal ZINC 63 Result Comment: Detection Limit = 5 Performed At: [facility] [address] [id number] Ceci Franco MD [id number] Performed By: #### L550.22079 #### [facility] [id number] PT Collected: 03/08/2018 Status: F Source: [facility] 6:23 PM [facility] REPOSITORY Order Comment: [place]: M TYPE CODE TESTS RESULT OUT OF RANGE REFERENCE UNITS LAB L300.95839 0.9-1.1 Normal INR 1.1 Result Comment: 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 For heart valve and shunt patients the range is 2.5 - 3.5. LAB L300.42735 9.4-12.0 SECONDS Normal PTS 12.0 Performed By: #### L300.25862 #### [facility] [address] [place] [address] PORTABLE CHEST Observed: 03/08/2018 Status: F Source: [facility] 2:55 PM [facility] PORTABLE CHEST Ordering Physician: Mik Greenwood 03/09/2018 11:11 AM CHEST PORTABLE Clinical Statement: Respiratory failure. No comparison FINDINGS: The cardiac silhouette is mildly enlarged. Atherosclerotic changes are noted within the aorta. The pulmonary vascularity is not congested. There are small bilateral pleural effusions and associated atelectasis. There is a PICC line entering from the right side which terminates at the cavoatrial junction. IMPRESSION: Cardiomegaly without pulmonary vascular congestion. Small bilateral pleural effusions with associated atelectasis. ---- Electronic Signature on File ---- Signed By: Paulie Omalley MD [email or web address] Dictated: 03/09/2018 2:00 PM Signed: 03/09/2018 2:01 PM Reported By: PAULIE OMALLEY M.D. Signed By: PAULIE OMALLEY M.D. LTACHCR Observed: 03/08/2018 Status: UNK Source: [facility] 2:55 PM [facility] This is a preliminary report only, as the practitioner review and authentication has not occurred. LTACH[facility] Observed: 03/08/2018 Status: UNK Source: [facility] 2:55 PM [facility] DATE OF CONSULTATION: 03/09/2018 REFERRING PHYSICIAN: Dimitri Smith MD REASON FOR REFERRAL: Pulmonary management. HISTORY OF PRESENT ILLNESS: The patient is a 67-year-old female who was transferred from an outside hospital to [facility] for further management of wounds, osteomyelitis. The patient had a CABG done in early February at [facility], from where she was transferred to [facility]. The patient was being managed for left lower extremity cellulitis as well as right foot osteomyelitis. The patient was transferred to the emergency room with complaints of fever and decreased oxygen saturation. The patient was readmitted to the hospital. The patient underwent debridement of the left anteromedial leg with skin necrosis, left medial thigh debridement on March 06. The patient reportedly had significant blood loss, hemoglobin was 7.4, and she was transfused with 2 units of PRBCs. She has a wound VAC in place. The patient denies any chest pain or shortness of breath at rest. PAST MEDICAL HISTORY: Significant for 1. Coronary artery disease. 2. Diabetes. 3. Diabetic neuropathy. 4. Obesity. 5. Asthma. 6. Sleep apnea. 7. COPD. 8. Osteoarthritis. 9. Hyperlipidemia. 10. Hypertension. MEDICATIONS: Reviewed, please refer to MRF. FAMILY HISTORY: Mother had colon cancer. SURGICAL HISTORY: Please reference to the main chart. REVIEW OF SYSTEMS: All 10-systems reviewed. Only those listed in HPI are pertinent. The patient's recent transfer records were reviewed as well. PHYSICAL EXAMINATION: General: Elderly female lying in bed, does not seem to be in any acute distress. Vital Signs: Temperature 97, respirations 18, pulse 88, blood pressure 110/60, oxygen saturation 95% on 2 liters supplemental oxygen. HEENT: Head is normocephalic. Eyes are open, pupils are reactive to light. Extraocular movements are intact. Neck: Supple. There is no JVD. Trachea is midline. [facility] MEDICAL REC #: [id number] [place] [id number] ADMIT DATE: DISCHARGE DATE: ATTENDING PHY: Dimitri Smith MD Chest: Diminished expansion. Lungs: Clear to auscultation. Cardiovascular: Both heart sounds are heard. Regular rate and rhythm. There are no murmurs or rubs. Abdomen: Soft, positive bowel sounds, nontender. No hepatosplenomegaly. Extremities: She has open wounds on both lower extremities. She has skin multiple ecchymotic patches in both upper and lower extremities. Musculoskeletal: There is no joint swelling or joint tenderness. Neurologic: The patient is awake, alert, oriented to time, place, and person. Cranial nerves are intact. Motor strength is normal. Psychiatric: Patient is awake, alert, with normal affect. LABORATORIES: From today CMP Sodium 138, Potassium 4.7, Chloride 99, Bicarbonate 32, BUN 20, Creatinine 0.4, INR 1.1, White cell count 5.6, Hemoglobin 8.9, Hematocrit 30, Platelets 220. IMPRESSION: 1. Sepsis, most likely related to wounds. 2. Left foot osteo. 3. Lower extremity deep venous thrombosis. 4. Asthma. 5. Chronic obstructive pulmonary disease. 6. Hypoxia on presentation. 7. Coronary artery disease, status post coronary artery bypass grafting, complicated with lower extremity infection. 8. Diabetes type 2. 9. History of hypertension. 10. Hyperlipidemia. PLAN: 1. Supplemental oxygen to keep oxygen saturation greater than equal to 92. 2. Check chest x-ray. 3. Wound care. 4. Monitor blood sugars, cover with sliding scale. Goal for blood sugar should be between 120 and 150. 5. Bronchodilators. 6. PDNC. 7. Antibiotics as per infectious disease. 8. Reassess and reevaluate. Thanks for asking me to participate in the care of this patient. If there are any [facility] PATIENT NAME: VENITA SMITH Annita [facility] MEDICAL REC #: [id number] [place] [address] ADMIT DATE: DISCHARGE DATE: ATTENDING PHY: Dimitri Smith MD questions, please feel free to contact me. Mik Greenwood MD /[id number] SSI File#: [id number] [facility] PATIENT NAME: VENITA SMITH [facility]ita [facility] MEDICAL REC #: [id number] [place], [place] [id number] ADMIT DATE: DISCHARGE DATE: ATTENDING PHY: Dimitri Smith MD LTACHCR Observed: 03/08/2018 Status: UNK Source: [facility] 2:55 PM [facility] REPOSITORY DATE OF CONSULTATION: 03/11/2018 CHIEF COMPLAINT: 1. Pressure ulcer sacral area stage 4. 2. Postoperative surgical wound left thigh, involving skin fat and muscle. 3. Postoperative surgical wound left lower leg, involving skin fat and muscle. 4. Diabetes mellitus. 5. Coronary artery bypass graft. HISTORY OF PRESENT ILLNESS: This is a 67-year-old white female who has a long history of diabetes mellitus starting in 1977. Since then, she has been on oral medication. She started having congestive heart failure and recently was diagnosed with acute heart attack. She was taken to surgery at [facility] and underwent a coronary artery bypass graft done. Patient did fairly well. She was then discharged to a custodial where she was noticed to have a large amount of blebs and blisters on her left lower leg, which continued to get deeper as well as on her left thigh. She was taken to surgery by ____ on March 05 and he did an extensive debridement involving the skin, subcutaneous tissues, and muscles of the left lower leg with exposed tendons and bones as well as debriding the wound on the left thigh on the medial side where the veins had been harvested; there has been a very black necrotic area and wound was then debrided and patient was then transferred over to [facility] for further care and treatment. Patient also had a pressure ulcer in the sacral area which was debrided and a wound VAC was applied. Since then, she has evidence of marked bleeding from this area. She is chronically anemic and she appears to be very weak and tired because of loss of blood and the open wounds. PAST HISTORY: 1. History of diabetes mellitus. 2. Coronary artery disease. PHYSICAL EXAMINATION: General: On examination, she appears very thinly built, very weak. Skin: Has bruises all over her body as a result of anticoagulation most likely. She does have some tendency to bleed. She has a chest wound which seems to be healing very nicely with no evidence of infection, drainage, or separation noticed. She has postop wound on the right thigh, which measures about 7 x 3 cm with a depth of about 3 cm, appears to be very deep and dark at this point. There is also a large wound on the left lower leg measuring over 22 x 6 cm in size, extending all the way up to the bone and involving and exposing most of the tendons and paratenon areas. There has been bleeding from this wound. Wound VAC was discontinued on her admission and since then, the dressings have been changed on a daily basis and it continues to ooze fairly large amount of fluid from this area. Patient also has a small wound on the toe which seems to be improving and some tears on the skin on the arm. Sacral area has a fairly large wound which has been debrided and appears to be deep, down to the bone and appears to be a stage 4 at this time. It measures about 5 x 6 cm in size [facility] PATIENT NAME: RAPID RIVERVENITA [address]ner MEDICAL REC #: [id number] [place] [address] ADMIT DATE: DISCHARGE DATE: ATTENDING PHY: Dimitri Smith MD with a depth of about 2 cm. PLAN OF TREATMENT: At this time, I advise the patient should continue with wound VAC therapy on all these areas, which can be changed twice a week on Mondays and and to make the patient comfortable, use some Adaptic underneath, and because of these days I can come over and reexamine the wounds and see the progress. The patient has a long-term problem with healing and may require skin grafting or may be transferred back to ____ for his evaluation and treatment, which he started on March 05. We will follow the patient while she is in the hospital. Herbert Antunez MD [id number] SSI File#: [id number] Disclaimer - This document may contain phonetic, minor grammatical errors, or errors due to voice quality. Verified/Reviewed by [facility] PATIENT NAME: VENITA SMITH [facility] Dr. Faulkner [facility] REC #: [id number] [place] [address] ADMIT DATE: DISCHARGE DATE: ATTENDING PHY: Dimitri Smith MD US ABDOMEN COMPLETE Observed: 03/08/2018 Status: F Source: [facility] 2:55 PM [facility] REPOSITORY US ABDOMEN COMPLETE Ordering Physician: Dimitri Smith MD 03/17/2018 10:02 AM ULTRASOUND ABDOMEN COMPLETE: Clinical Statement: Poor liver function Comparison: None FINDINGS: There is coarsened echotexture of the liver, consistent with fatty metamorphosis and or changes of chronic liver disease. No intrahepatic mass or intrahepatic biliary ductal dilatation is identified. There is sludge within the dependent portion of the gallbladder with possible cholelithiasis. The gallbladder wall measures up to 7 mm in maximum diameter. No significant pericholecystic fluid is identified. The common bile duct is normal in caliber measuring up to 6 mm. The gallbladder however is hydropic. The right and left kidneys are normal in size measuring up to 11.8 and 10.8 cm in length, respectively. There is a subcentimeter cyst extending off of the upper pole of the right kidney. A poorly visualized 2.2 x 1.9 x 2.1 cm lesion extends off of the upper pole of the left kidney, there appears to be internal debris, this may represent a hemorrhagic or proteinaceous cyst, although a more solid component cannot be excluded secondary to poor visualization. The spleen is normal in appearance measuring up to 12 cm in length. There is atherosclerotic calcification along the course of the aorta, which is normal in diameter measuring up to 2.2 cm. There is poor visualization of the inferior vena cava. Bilateral pleural effusions are noted. Pancreas is not enlarged. IMPRESSION: 1. Changes of fatty metamorphosis and or chronic liver disease. 2. Sludge and possible cholelithiasis. Gallbladder wall thickening. Gallbladder is hydropic. No pericholecystic fluid is present. Consider hepatobiliary nuclear medicine scanning to evaluate for cystic duct patency/gallbladder function. 3. A 2.2 cm lesion involving the upper pole of the left kidney, this may represent a proteinaceous or hemorrhagic cyst although there is poor visualization of the lesion, a nonemergent CT abdomen/pelvis is suggested for further evaluation. 4. Bilateral pleural effusions. Dictated by Oak Tanner: Abbe Perez MD Reviewed by Radiologist: Johnny Rowan MD ---- Electronic Signature on File ---- Signed By: Johnny Rowan MD [email or web address] Dictated: 03/17/2018 7:32 PM Signed: 03/18/2018 7:26 AM Reported By: JOHNNY ROWAN M.D. Signed By: JOHNNY ROWAN M.D. DOSETRACK Observed: 03/08/2018 Status: UNK Source: [facility] 2:55 PM [facility] REPOSITORY Test Dose report. Name: ADITYA Cordero Accession Number: [id number] Dose Type: CT Exam: ABPOI-C Max CTDIVol: 25.39 mGy DLP: 1386.57 mGy*cm CT 4 CT ABD/PELV W ORAL IV CONTRAST [id number] [id number] [id number] 6100.8495891027 61.8109622093 966778 6.1 Abdomen Pelvis Abdomen 5.0000 618.5500 1 [id number] [id number] 61.9795807442 229850 6.1 Abdomen Pelvis Abdomen 5.0000 618.5500 1 [id number] 30101.7272246732 4302.1696871128 [id number] 6.1 Abdomen Pelvis Abdomen 25.7848052111 1329.5587521326 40.0000 0.9800 523.5500 800.0000 077310 1 38.41 [facility] PATIENT NAME: VENITA SMITH [address] [facility] MEDICAL REC #: [id number] [place] [address] ADMIT DATE: DISCHARGE DATE: DOSETRACK ATTENDING PHY: Dimitri Smith MD [id number] 6.1 Abdomen Pelvis Abdomen 12.1294501135 57.2693755819 40.0000 0.9800 44.6733 482.3657 524769 1 30.48 [facility] PATIENT NAME: VENITA SMITH [address] Dr[address] [facility]ner MEDICAL REC #: [id number] [place] [address] ADMIT DATE: DISCHARGE DATE: DOSETRACK ATTENDING PHY: Dimitri Smith MD CT ABD/PELV W Observed: 03/08/2018 Status: F Source: [facility] CONTRAST 2:[address] [facility] [address] ABD/PELV W ORAL&IV CONTRAST Ordering Physician: Dimitri Smith MD 03/20/2018 11:[address] ABDOMEN AND PELVIS WITH ORAL AND IV CONTRAST: Clinical Statement: Elevated LFTs. Comparison: Complete abdominal ultrasound 03/17/2018. TECHNIQUE: Contiguous transaxial images were obtained through the abdomen and pelvis following the uneventful administration of 100 cc Isovue-300 intravenously. Oral contrast was also given. Multiplanar reconstructions were created and reviewed by the radiologist on independent workstation. FINDINGS: Images of the lung bases show post surgical changes of sternotomy. There is a 3 cm loculated collection of fluid/cyst within the pericardium anteriorly at the base of the heart. There is a small hiatal hernia. There are small dependently layering bilateral pleural effusions with adjacent lower lobe passive atelectasis. There is mild scarring and/or atelectasis within the right middle lobe and within the lingula along the fissure. There is a 5 cm hypodense lesion in the subcapsular portion of the lateral segment of the left hepatic lobe anteriorly. There is an area of thick, nodular enhancement along the posterior and medial margin of the lesion. There is minimal rim enhancement evident anteriorly. There is a subcentimeter hypodensity within the right hepatic lobe posteriorly. No intrahepatic or extra hepatic bile duct dilatation. The gallbladder is hydropic. The gallbladder wall is thickened and edematous correlating with the appearance on the comparison ultrasound. There is a 6 mm calculus identified in the region of the cystic duct (image #39, oblique coronal reconstructed image). The intrahepatic and extra hepatic bile ducts are not dilated. The pancreas is atrophic but otherwise unremarkable, enhancing normally. No pancreatic duct dilatation or peripancreatic inflammatory changes. There are multiple granulomatous calcifications within the spleen the spleen is borderline enlarged measuring 12.7 cm in length. There are no focal splenic lesions. The adrenal glands are normal in size and configuration. Both kidneys are lobular in contour demonstrating symmetric renal enhancement. There is a symmetric pattern of bilateral perinephric stranding. There is no hydronephrosis. There is a 2.2 cm exophytic cyst at the superior pole of the left kidney. There are a few subcentimeter renal cortical hypodensities which are too small to characterize, likely cysts. There is extensive abscess chronic calcification of the abdominal aorta and iliac arteries. There is mild focal ectasia of the distal abdominal aorta measuring up to 2.7 cm in diameter with tapering at the bifurcation. The stomach is unremarkable. There are no dilated or thickened segments of small bowel. Orally administered contrast had not yet passed into the colon at the time of scanning. There is a moderate amount of fecal material within the right colon. The appendix is not visualized. No pericecal inflammatory changes. No ascites or free air. Within the pelvis, there is significant wall thickening extending along the proximal to mid sigmoid colon with associated pericolonic stranding. There are diverticula within the sigmoid colon. Interposed between the inferior margin of the mid sigmoid colon and extending over the top of the collapsed urinary bladder, there is a thick-walled gas containing collection measuring 4.5 cm. The adjacent urinary bladder is mostly collapsed with a Allen catheter in place. There is a small amount of gas seen within the collapsed urinary bladder anteriorly. The bladder wall appears thickened and there is mild perivesicular stranding. There is presacral soft tissue edema. There is impacted stool within the rectum distended up to 7.8 cm in diameter. The rectal wall appears thickened inferiorly. There is no gas within the rectal wall. There is a decubitus ulcer overlying the lower sacrum and coccyx measuring up to 5 cm transversely and 9 cm craniocaudally. The ulceration extends to the surface of the upper coccyx on sagittal reconstructed images. The cortex appears intact with no bony destructive changes identified to suggest osteomyelitis. There are degenerative changes at multiple levels in the spine. There is subcutaneous soft tissue edema/anasarca noted along the lower flank regions, hips and visualized proximal thighs. IMPRESSION: 1. There are CT findings indicative of acute cholecystitis, with hydropic gallbladder, diffuse thickened, edematous gallbladder wall and a 6 mm calculus in the region of the cystic duct. Correlate with HIDA scan. 2. Sigmoid diverticulosis with significant wall thickening along the proximal to mid sigmoid colon along with pericolonic stranding suggestive of acute diverticulitis. Underlying colonic malignancy would not be excluded. 3. There is a pericolonic thick-walled gas containing collection measuring 4.5 cm adjacent to the mid sigmoid colon and extending over the top of the urinary bladder, suggestive of abscess. 4. Decompressed urinary bladder with a Allen catheter in place. The bladder wall appears circumferentially thickened which may relate to underdistention or cystitis. Gas within the urinary bladder is noted, probably related to catheterization with colovesical fistula not excluded. 5. Sacral decubitus ulcer. This appears to extend to bone in the region of the upper coccyx. No bony resorptive changes are shown to suggest osteomyelitis. 6. Impacted stool within the rectum. 7. Nonspecific perinephric stranding bilaterally which may be chronic. 8. 5 cm subcapsular lesion within the lateral segment left hepatic lobe anteriorly most likely reflective of a cavernous hemangioma. More definitive characterization with dedicated multiphase liver CT or MRI is suggested when clinically feasible. 9. Dependent layering bilateral pleural effusions with adjacent passive atelectasis. 10. Borderline splenomegaly. A report was sent to the floor at the time of dictation. ---- Electronic Signature on File ---- Signed By: Rupert Monique MD [email or web address] Dictated: 03/20/2018 6:20 PM Signed: 03/20/2018 7:00 PM Reported By: RUPERT MONIQUE M.D. Signed By: RUPERT MONIQUE M.D. LTACHCR Observed: 03/08/2018 Status: UNK Source: [facility] 2:55 PM [facility] REPOSITORY DATE OF CONSULTATION: 03/25/2018 REQUESTING PHYSICIAN: Dimitri Smith MD REASON FOR CONSULTATION: Abscess, abdominal. HISTORY OF PRESENT ILLNESS: Patient is a very pleasant 67-year-old female, who has a very complicated recent past medical history. According to the patient, this all started with an infection of the right foot. An I and D was performed with a subsequent heart attack. They got the infection of the foot resolved. She had been transferred to [place]. Once they got the infection resolved, she underwent coronary artery bypass grafting. Subsequently transferred back to her local hospital. Noted to have an infection on her left thigh, most likely from the harvest site for the bypass grafting. Infection was quite extensive, required aggressive debridement, followed by placement of a wound VAC. This did involve the bone and is being managed as active osteomyelitis. On March 20, she was noted to have elevated LFTs. She underwent a CT scan of the abdomen and pelvis. CT of the abdomen and pelvis did show findings consistent with acute cholecystitis with a hydropic gallbladder. Also noted was sigmoid diverticulosis with significant wall thickening along the nutqzzdj-yg-[id number] colon. There is a pericolonic thick wall gas-containing collection measuring 4.5 cm adjacent to the midsigmoid colon. A question is now being raised regarding an intraabdominal abscess and a surgical consultation is now being sought. When seen at bedside, the patient is actually quite comfortable, eating lunch. Denies any abdominal pain. Denies nausea, denies vomiting. She has been eating well recently, has continued to pass flatus and have bowel movements. PAST MEDICAL AND SURGICAL HISTORY: Recent past medical history as noted in the above History of Present Illness. In addition, patient carries the diagnoses of diabetes, diabetic neuropathy, asthma, sleep apnea, COPD, osteoarthritis, hyperlipidemia and hypertension. MEDICATIONS: Listed in the MAR and reviewed. ALLERGIES: Listed in the MAR and reviewed. FAMILY HISTORY: Noncontributory. SOCIAL HISTORY: No recent alcohol, cigarette or drug abuse. SYSTEMS REVIEW: A full systems review was performed to include systemic, endocrine, neurologic, HEENT, cardiac, pulmonary, gastrointestinal, genitourinary, musculoskeletal, integumentary, vascular, as well as psychiatric. There are no new additional findings. [facility] PATIENT NAME: VENITA SMITH [facility] Dr. [facility] MEDICAL REC #: [id number] [place] [address] ADMIT DATE: DISCHARGE DATE: ATTENDING PHY: Dimitri Smith MD PHYSICAL EXAMINATION: General: Fairly-developed, fairly-nourished white female, sitting upright in the hospital bed, eating lunch, in no apparent acute respiratory distress. HEENT: Anicteric sclerae, no rhinorrhea nor otorrhea. Trachea is midline. Chest: Breath sounds harsh but clear. Heart: Heart sounds are regular. Abdomen: Flat, soft. There is no tenderness, no rebound, no guarding, no referred pain. Bowel sounds present and normoactive. Abdomen is completely benign. Extremities: There is a wound VAC on the left thigh. Incisions on the right toe appear to be well healed. Integumentary: Fair skin turgor. Neurologic: No actual localizing signs. Vascular: Equal and symmetric upper extremity pulses. REVIEW OF LABORATORY: WBC count is currently at 4.4. It was 8.7 recently. Hemoglobin is down to 7.7. Chemistry panel was reviewed. She did have mild elevations in her liver enzymes with alkaline phosphatase of 312, improved to 266. Otherwise, liver enzymes are essentially unremarkable. CT scan findings as noted in the History of Present Illness. ASSESSMENT 1. I find no clinical evidence to support a diagnosis of acute cholecystitis, certainly no clinical evidence to support an intraabdominal abscess. 2. Multiple comorbidities as listed above. PLAN/RECOMMENDATIONS: With the abdomen completely benign, with the patient tolerating diet, essentially asymptomatic, and given her multiple comorbidities, I do not believe there is any indication for surgical intervention currently. With the above, not much more to add from a General Surgery standpoint. I appreciated the consult. Please call again if needed. Mert Sanon MD [id number] SSI File#: [id number] CC: Dimitri Smith MD Verified/Reviewed by [facility] PATIENT NAME: VENITA SMITH [address] [facility] [address] [place] MEDICAL REC #: [id number] [place] [address] ADMIT DATE: DISCHARGE DATE: ATTENDING PHY: Dimitri Smith MD DOSETRACK Observed: 03/08/2018 Status: UNK Source: [facility] 2:55 PM [facility] REPOSITORY Test Dose report. Name: ADITYA Cordero Accession Number: [id number] Dose Type: CT Exam: ABDPELOC Max CTDIVol: 21.9 mGy DLP: 1244.98 mGy*cm CT 3 CT ABD/PEL ORAL CONTRAST 1244.98 21.9 21.9 89806 6100 61 [id number] 6.1 Abdomen Pelvis Abdomen 5 618.55 1 55546 6100 61 845717 6.1 Abdomen Pelvis Abdomen 5 618.55 1 955164 27489 4023.528 P5-03722 6.1 Abdomen Pelvis Abdomen 21.9 1244.98 40 0.98 568.55 800 [id number] 1 [facility] PATIENT NAME: VENITA SMITH Dr. [facility] MEDICAL REC #: [id number] [place] [address] ADMIT DATE: DISCHARGE DATE: DOSETRAKERI ATTENDING PHY: Dimitri Smith MD 38.47 [facility] PATIENT NAME: VENITA SMITH Dr. [facility] MEDICAL REC #: [id number] [place] [address] ADMIT DATE: DISCHARGE DATE: DOSETRA ATTENDING PHY: Dimitri Smith MD CT ABD/PEL ORAL Observed: 03/08/2018 Status: F Source: [facility] 2:[address] [facility] [address] ABD/PEL ORAL CONTRAST Ordering Physician: Syeda Palmer MD 04/09/2018 2:[address] ABDOMEN AND PELVIS WITH ORAL CONTRAST ONLY: Clinical Statement: Abdominal abscess follow-up. Comparison: 03/20/2018. TECHNIQUE: 3.75 mm axial slices were obtained through the abdomen and pelvis with oral contrast only. Lack of IV contrast limits evaluation of the solid organs. FINDINGS: The patient is status post median sternotomy. The loculated collection/cyst within the anterior, inferior pericardium is decreased in size from 3 x 2 cm to the current axial dimensions of 2.7 x 1.6 cm. The heart is stable in size. Small bilateral pleural effusions with adjacent consolidation is no significantly changed. Scarring and/or atelectasis is present within the right middle lobe and within the lingula along the fissure. Evaluation of the solid organs and vascular structures is limited due to the lack of IV contrast. The previously described hypodense lesion in the subcapsular portion of the anterior, lateral left hepatic lobe is stable at 5 cm. Lack of IV contrast on the current study limits further comparison. Also, the subcentimeter right hepatic lobe hypodensity is not visualized. The gallbladder remains dilated with thickened, edematous wall. The 6 mm biliary calculus in the region of the cystic duct on image 40 is relatively unchanged in position. There is no intrahepatic or extrahepatic biliary ductal dilatation. The pancreas and pancreatic duct are normal. The spleen measures 13 cm in length. There is no focal splenic lesion. The adrenal glands are normal. The unenhanced kidneys are lobular in contour with chronic-appearing bilateral perinephric stranding. No hydronephrosis. There is a 2.2 cm exophytic cyst at the superior pole of the left kidney. There are also subcentimeter cortical hypodensities bilaterally, too small to accurately characterize, although likely cysts. No urinary calculi. There is a small hiatal hernia. Oral contrast extends to the distal colon. There are no abnormally dilated bowel loops. The appendix is is not definitively identified. Stool is visualized throughout the colon. Impacted stool within the rectum and rectal wall thickening is unchanged. There is significant wall thickening again noted along the sigmoid colon with multiple diverticula and pericolonic stranding appearing relatively stable from the previous study. Air is a gas containing collection again noted along the medial margin of the sigmoid colon, overlying the top of the urinary bladder measuring 4.6 cm with a small air-fluid level suggesting abscess. The adjacent urinary bladder is collapsed with a Allen catheter in place. No intraluminal gas seen within the urinary bladder. There is soft tissue anasarca again shown along the flank regions and hips. Similar to the previous exam. The aorta is nonaneurysmal. There is extensive atherosclerotic calcification throughout the aorta and the larger abdominopelvic arteries. There is no abdominal or pelvic adenopathy. A decubitus ulcer is again noted measuring 5.7 cm in transverse diameter, similar to the previous exam. There is no definite evidence of osteomyelitis. No aggressive osseous lesion is noted. There is grade 1 anterolisthesis of L4 on L5 with associated degenerative disk disease. IMPRESSION: 1. Significant wall thickening along the sigmoid colon with diverticular disease or pericolonic stranding appearing similar to the previous exam. There is a pericolonic abscess collection along the medial margin of the sigmoid colon overlying the top of the urinary bladder which appears stable in size from the previous study. 2. Enlarged gallbladder with gallbladder wall thickening and an apparent calculus in the cystic duct appearing somewhat the previous study suggesting acute cholecystitis. 3. Soft tissue anasarca with small effusions and bibasilar consolidations stable from the prior study. 4. Sacral decubitus ulcer. Dictated by [employer] Tanner: Galina García DO Reviewed by Radiologist: Rupert Monique MD ---- Electronic Signature on File ---- Signed By: Rupert Monique MD [email or web address] Dictated: 04/09/2018 3:38 PM Signed: 04/09/2018 8:45 PM Reported By: RUPERT MONIQUE M.D. Signed By: RUPERT MONIQUE M.D. ABDOMEN OR KUB Observed: 03/08/2018 Status: F Source: [facility] 2:55 PM [facility] ABDOMEN OR KUB Ordering Physician: Dimitri Smith MD 04/12/2018 12:00 PM ABDOMEN/KUB: Clinical Statement: Abdominal pain Comparison: CT abdomen and pelvis 04/09/2018 FINDINGS: There is redemonstration of midline sternotomy wires which remain in place and intact. There is a wound VAC projecting over the left lower hemipelvis. There is a nonobstructive bowel gas pattern. There is gas within the stomach and colon but no pathologically dilated loops of small or large bowel. There remains a moderate amount of colonic stool that remains opacified with enteric contrast from prior CT study 04/09/2018. There is no gross evidence of intra-abdominal free air. IMPRESSION: Nonobstructive bowel gas pattern, moderate amount of retained colonic stool. Dictated by [place] Tanner: Chin Garcia MD Reviewed and Signed by: Demi Hammond MD ---- Electronic Signature on File ---- Signed By: Demi Hammond MD [email or web address] Dictated: 04/12/2018 2:36 PM Signed: 04/12/2018 3:11 PM Reported By: DEMI HAMMOND M.D. Signed By: DEMI HAMMOND M.D. US ABDOMEN COMPLETE Observed: 03/08/2018 Status: F Source: [facility] 2:55 PM [facility] REPOSITORY US ABDOMEN COMPLETE Ordering Physician: Rupert Hoover MD 04/20/2018 6:30 PM ULTRASOUND ABDOMEN COMPLETE: Clinical Statement: Cholecystitis Comparison: Abdominal ultrasound 03/17/2018, CT abdomen pelvis 04/09/2018 FINDINGS: The aorta and IVC are segmentally visualized, appearing normal in caliber. Calcified plaque is seen throughout the aorta. Aorta measures up to 2.4 cm midway. The pancreatic distal body and tail are not well visualized. Otherwise the visualized portions of the pancreas appear unremarkable. The liver measures 16 cm in length. There is a slightly echogenic mass in the right hepatic lobe measuring 5.0 x 4.6 cm x 4.9. There is minimal color flow within and surrounding the mass. No intrahepatic biliary ductal dilatation is shown. The gallbladder is adequately distended and contains sludge. The gallbladder wall measures 2 mm. The common bile duct measures 2 mm. Sonographic Malloy?s sign was negative. The right and left kidneys measure 12 cm and 11 cm in length respectively and demonstrate no evidence for hydronephrosis. Hypoechoic structures compatible cysts are seen in the bilateral kidneys measuring up to 2.2 cm and the left kidney. The spleen measures 11 cm in length and is not enlarged. There is no free abdominal fluid shown. Bilateral pleural effusions are incidentally noted. IMPRESSION: No acute findings. Gallbladder sludge. Similar size of hepatic mass which had the appearance of a hemangioma on CT. Bilateral pleural effusions. ---- Electronic Signature on File ---- Signed By: Oliver Strickland MD [email or web address] Dictated: 04/21/2018 1:45 PM Signed: 04/21/2018 1:53 PM Reported By: OLIVER STRICKLAND M.D. Signed By: OLIVER STRICKLAND M.D. LTACHSP Observed: 03/08/2018 Status: UNK Source: [facility] 2:55 PM [facility] DATE OF SERVICE: 04/22/2018 SURGEON: Herbert Antunez MD ANESTHESIA: None. PREOPERATIVE DIAGNOSIS: Pressure ulcer sacral area stage 4. Size 12 x 8 cm in size. POSTOPERATIVE DIAGNOSIS: Pressure ulcer sacral area stage 4. Size 12 x 8 cm in size. OPERATIVE PROCEDURE: Excisional debridement of skin, subcutaneous tissues, and necrotic muscle in an area of about 20 square cm. OPERATIVE FINDINGS AND INDICATION: Patient had multiple problems with open heart surgery. Had been in the hospital with multiple debridements at [facility], later was transferred to [facility]. She had a large pressure ulcer in the sacral area which had been previously debrided and still had some slough and necrotic tissue present. DESCRIPTION OF PROCEDURE: Patient was kept in the lateral position. Area was prepared and using sharp scissors and forceps excisional debridement of the skin, subcutaneous tissues, and underlying necrotic muscle was carried out. Some of the areas appeared to be clean, some of the areas had some slough and necrotic tissue present. Most of the slough that could easily be removed was done. A total area of about 20 square cm was debrided and patient will be continued on wound VAC therapy. Herbert Antunez MD MN/[id number] SSI File#: [id number] Verified/Reviewed by [facility] PATIENT NAME: VENITA SMITH [facility] Dr. Faulkner [facility] REC #: [id number] [place] [address] ADMIT DATE: DISCHARGE DATE:04/24/18 ATTENDING PHY: Dimitri Smith MD LTACHDS Observed: 03/08/2018 Status: UNK Source: [facility] 2:55 PM [facility] REPOSITORY DATE OF ADMISSION: 03/08/2018 DATE OF DISCHARGE: 04/24/2018 ADMITTING DIAGNOSES: 1. Osteomyelitis. 2. Cellulitis. 3. Coronary artery disease. 4. Diabetes. 5. Neuropathy. 6. Hyperlipidemia. 7. In particular, left lower extremity cellulitis, stage IV decubitus ulcer on the sacrum, infected. 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 The left lower extremity infection required debridement, wound VAC placement, eventual skin grafting and closure. She also developed an infected stage IV sacral ulcer, cultures positive for ESBL Escherichia coli and Bacteroides. She was seen by Infectious Disease. She finished a course of voriconazole by mid-March. She completed a course of meropenem. The sacral ulcer was debrided several times. She had CAT scans of the abdomen due to pain, showing an abdominal abscess, colitis and cholecystitis, acute. Surgery saw her and there were plans for addressing these issues when she was stable. She had repeat wound cultures of her left lower extremity, which grew out Acinetobacter resistant to meropenem and also gamma strep. She also had a vaginal discharge, which tested positive for VRE. She was placed on linezolid for the VRE and completed that. She was also placed on doxycycline and Cipro after she developed a fever. An ongoing problem was anemia due to 2 factors. She had a left upper extremity DVT treated with Coumadin and this caused the leg wound, especially with the wound VAC on, to bleed. Also, she was severely malnourished, had some degree of anorexia even as her abdominal pain lessened. She denied any nausea or vomiting, but had poor nutritional status. She was encouraged to eat as much as she could and drink intermittent food supplements, which she tried to do. She was started on Remeron for appetite stimulation and treatment of depression. Eventually, Megace was also added. This seemed to work a little bit better, but her albumin remained below 2 nearly the entire time she was here. She had problems with hyperglycemia due to her diabetes and this was managed. Repeat ultrasound of her abdomen just prior to discharge seemed to show that the gallbladder was no longer in a state of acute cholecystitis, but still showed gallbladder sludge. She is felt to be ready for discharge by the with plans to send her to the [facility]. DISCHARGE DIAGNOSES: 1. Left lower extremity cellulitis status post debridement, wound VAC therapy and [facility] PATIENT NAME: VENITA SMITH Annita Faulkner MEDICAL REC #: [id number] [place] [address] ADMIT DATE: DISCHARGE DATE:04/24/18 ATTENDING PHY: Dimitri Smith MD skin grafting. 2. History of stage IV decubitus sacral ulcer with infection. 3. Vaginal and urine vancomycin resistant enterococcus. 4. History of Acinetobacter resistant to meropenem. 5. History of extended-spectrum beta-lactamase Escherichia coli. 6. History of coronary artery disease status post coronary artery bypass graft. 7. Severe malnutrition with anorexia despite 2 appetite stimulants. 8. History of stable-appearing intraabdominal abscess, which will need surgical drainage once more stable. 9. History of acute cholecystitis, which now apparently has partially resolved, but still showing gallbladder sludge. 10. History of diabetes with hyperglycemia. 11. Anemia. 12. Left upper extremity deep venous thrombosis on Coumadin, therapeutic today. 13. History of liver hemangioma. 14. Debility. DISCHARGE MEDICATIONS: Include: 1. Dulcolax suppositories 10 mg rectally daily as needed. 2. Breo Ellipta 200/25 one puff daily. 3. Carvedilol 6.25 mg twice daily. 4. Cepacol lozenges for sore throat as needed. 5. Cipro 500 mg p.o. every 12 hours for 28 days. 6. Clopidogrel 75 mg daily. 7. Dextrose p.r.n. hyperglycemia. 8. Dicyclomine 10 mg every 6 hours as needed. 9. Famotidine 20 mg daily. 10. Ferrex 150/1-25 one capsule twice daily. 11. Folic acid 1 mg daily. 12. Furosemide 40 mg daily. 13. Gabapentin 300 mg. She takes 2 pills 3 times daily. 14. Gelfoam as needed for bleeding wounds. 15. Glipizide 5 mg daily. 16. PRN glucagon as needed. 17. PRN Glutose as needed. 18. Humalog sliding scale insulin. 19. Ibuprofen 200 mg 2 every 8 hours as needed orally with food. 20. DuoNeb aerosol every 2 hours as needed. 21. Radames 1 packet twice daily with meals. 22. Lantus insulin 10 units subcutaneously at night. 23. Lisinopril 5 mg daily. 24. Loratadine 10 mg daily. 25. Megace 400 mg twice daily. 26. Melatonin 3 mg at bedtime. 27. Flagyl 500 mg 3 times daily for 4 weeks. 28. Remeron 7.5 mg at bedtime. 29. Oxycodone 5 mg every 4 hours as needed. 30. MiraLAX 17 g daily. 31. Senna 8.6 mg. She takes 2 twice daily. 32. Thera M plus vitamins 1 daily. [facility] PATIENT NAME: VENITA SMITH Dr. Faulkner MEDICAL REC #: [id number] [place] [address] ADMIT DATE: DISCHARGE DATE:04/24/18 ATTENDING PHY: Dimitri Smith MD 33. Vitamin B12 1000 mcg daily. 34. Vitamin C 500 mg twice daily. 35. Coumadin 5 mg daily. Dimitri Smith MD /[id number] SSI File#: [id number] Verified/Reviewed by [facility] PATIENT NAME: VENITA SMITH Dr. Faulkner MEDICAL REC #: [id number] [place] [address] ADMIT DATE: DISCHARGE DATE:04/24/18 ATTENDING PHY: Dimitri Smith MD BEDSIDE GLUCOSE Collected: 03/06/2018 Status: F Source: [facility] 7:43 AM [facility] REPOSITORY TYPE CODE TESTS RESULT OUT OF REFERENCE UNITS RANGE LAB L501.080 70-110 mg/dL Low BEDSIDE GLU 57 Result Comment: MANAGEMENT OF PATIENT CARE PER NURSING PROTOCOL Performed By: #### L501.080 #### [facility] Point of Care [address] [place] [address] BEDSIDE GLUCOSE Collected: 03/06/2018 Status: F Source: [facility] 7:26 AM [facility] REPOSITORY TYPE CODE TESTS RESULT OUT OF REFERENCE UNITS RANGE LAB L501.080 70-110 mg/dL Low BEDSIDE GLU 66 Result Comment: MANAGEMENT OF PATIENT CARE PER NURSING PROTOCOL Performed By: #### L501.080 #### [facility] Point [facility] Care [address] [place] [address] CBC W/DIFF, AUTOMATED Collected: 03/06/2018 Status: F Source: [facility] 2:40 AM [facility] REPOSITORY Order Comment: SPECIMEN OBTAINED FROM LINE DRAW TYPE CODE TESTS RESULT OUT OF RANGE REFERENCE UNITS LAB L100.1000 4.4-11.0 K/mm3 Normal WBC 6.0 LAB L100.1200 4.2-5.4 M/mm3 Low RBC 2.76 LAB L100.1300 12.0-15.0 g/dl Low HGB 7.4 LAB L100.1400 37-47 % Low HCT 24.9 LAB L100.1500 81-99 fL Normal MCV 90.2 LAB L100.1600 27.0-32.0 pg Low MCH 26.8 LAB L100.1700 32-36 g/gl Low MCHC 29.7 LAB L100.1810 11.6-14.6 % High RDW CV 18.0 LAB L100.1820 35.1-43.9 fl High RDW SD 58.5 LAB L100.1900 150-450 K/mm3 Normal PLT 217 LAB L100.2000 6.2-12.0 fl Normal MPV 8.1 LAB L100.2100 47-70 % High NEUT% 79.4 LAB L100.2200 19-41 % Low LY% 8.6 LAB L100.2300 0-10 % High MONO% 11.3 LAB L100.2400 0-5 % Normal EO% 0.7 LAB L100.2500 0-1 % Normal BASO% 0.0 LAB L100.2550 0.0-0.9 % Normal IM GRAN % 0.000 Result Comment: IG% - Immature Granulocytes (promyelocytes, myelocytes and metamyelocytes) > 1% indicates that a LEFT SHIFT is Present. LAB L100.2620 2.0-7.7 X10 3/uL Normal Absolute Neut 4.8 LAB L100.2720 0.83-4.51 X10 3/ul Low Absolute Lymph 0.52 Performed By: #### L100.0100 #### [facility] [address] [place], [place], [id number] BASIC METABOLIC Collected: 03/06/2018 Status: F Source: [facility] PROFILE ([facility]) 2:40 AM [facility] REPOSITORY Order Comment: SPECIMEN OBTAINED FROM LINE DRAW TYPE CODE TESTS RESULT OUT OF RANGE REFERENCE UNITS LAB L501.0100 74-106 mg/dL Normal GLU 103 Result Comment: Fasting Glucose result from 100 to 125 mg/dL suggests IMPAIRED HOMEOSTASIS per A.D.A. criteria. Please note revised GLUCOSE reference range effective 2017. LAB L501.1000 7-18 mg/dL High BUN 21 LAB L501.1100 0.55-1.02 mg/dL Low CREAT,SERUM 0.52 Result Comment: The validity of the calculated GFR AND GFRAA in patients over 70 years has not been determined. Clinical correlation is essential. LAB L501.1110 >60 mL/min Normal EST GFR 123 Result Comment: Non- GFR Calc LAB L501.1115 >60 mL/min Normal EST GFR - AA 149 Result Comment: GFR Calc LAB L501.1255 ml/min Normal Estimated CRCL 44.54 LAB L501.1300 10-20 RATIO High BUN/CRE 40.0 LAB L501.2200 8.5-10 mg/dL Low .1 CA 7.8 LAB L501.5300 136-14 mmol/L Normal 5 NA 141 LAB L501.5600 3.5-5. mmol/L Normal 1 K 4.3 LAB L501.5900 98-107 mmol/L Normal CL 103 LAB L501.6100 21.0-3 mmol/L High 2.0 CO2 33.0 LAB L501.6200 5-15 Normal GAP 5 Performed By: #### L500.2500, L506.0500 #### [facility] [address] [place], [place], [address] PREALBUMIN Collected: 03/06/2018 Status: F Source: [facility] 2:40 AM [facility] REPOSITORY Order Comment: SPECIMEN OBTAINED FROM LINE DRAW TYPE CODE TESTS RESULT OUT OF REFERENCE UNITS RANGE LAB L506.0500 20.0-40.0 mg/dL Low PREALBUMIN 5.9 Performed By: #### L500.2500, L506.0500 #### [facility] [address] [place], [address] PROTHROMBIN TIME W/INR Collected: 03/06/2018 Status: F Source: [facility] 2:40 AM [facility] REPOSITORY Order Comment: SPECIMEN OBTAINED FROM LINE DRAW TYPE CODE TESTS RESULT OUT OF RANGE REFERENCE UNITS LAB L300.4150 11.7-14.9 SECONDS High PROTIME 16.2 LAB L300.4200 Normal INR 1.3 Performed By: #### L300.3900 #### [facility] [address] [place], [address] BEDSIDE GLUCOSE Collected: 03/05/2018 Status: F Source: [facility] 9:32 PM [facility] REPOSITORY TYPE CODE TESTS RESULT OUT OF REFERENCE UNITS RANGE LAB L501.080 70-110 mg/dL High BEDSIDE GLU 162 Result Comment: MANAGEMENT OF PATIENT CARE PER NURSING PROTOCOL Performed By: #### L501.080 #### [facility] Point [facility] [address] [place] [address] HH, HEMOGLOBIN AND Collected: 03/05/2018 Status: F Source: [facility] HEMATOCRIT 8:44 PM [facility] REPOSITORY Order Comment: LINE DRAW TYPE CODE TESTS RESULT OUT OF RANGE REFERENCE UNITS LAB L100.1300 12.0-15.0 g/dl Low HGB 7.8 LAB L100.1400 37-47 % Low HCT 26.3 Performed By: #### L100.0600 #### [facility] [address] [place], [address] BEDSIDE GLUCOSE Collected: 03/05/2018 Status: F Source: [facility] 3:20 PM [facility] REPOSITORY TYPE CODE TESTS RESULT OUT OF REFERENCE UNITS RANGE LAB L501.080 70-110 mg/dL High BEDSIDE GLU 129 Result Comment: MANAGEMENT OF PATIENT CARE PER NURSING PROTOCOL Performed By: #### L501.080 #### [facility] [address] [place] [address] HH, HEMOGLOBIN AND Collected: 03/05/2018 Status: F Source: [facility] HEMATOCRIT 2:58 PM [facility] REPOSITORY TYPE CODE TESTS RESULT OUT OF RANGE REFERENCE UNITS LAB L100.1300 12.0-15.0 g/dl Low HGB 8.4 LAB L100.1400 37-47 % Low HCT 28.3 Performed By: #### L100.0600 #### [facility] [address] [place], [address] BEDSIDE GLUCOSE Collected: 03/05/2018 Status: F Source: [facility] 8:17 AM [facility] REPOSITORY TYPE CODE TESTS RESULT OUT OF RANGE REFERENCE UNITS LAB L501.080 70-110 mg/dL Normal BEDSIDE GLU 109 Result Comment: MANAGEMENT OF PATIENT CARE PER NURSING PROTOCOL Performed By: #### L501.080 #### [facility] [address] [place] [address] VANCOMYCIN, TROUGH Collected: 03/05/2018 Status: F Source: [facility] LEVEL 7:30 AM [facility] REPOSITORY Order Comment: Time Medication is to be Given? 0800 TYPE CODE TESTS RESULT OUT OF RANGE REFERENCE UNITS LAB L501.8820 5.0-15.0 ug/mL Normal VANCO, TROUGH 6.8 Result Comment: VANCOMYCIN STANDARED DRUG THERAPY TROUGH LEVEL: 5.0 - 15.0 mg/L VANCOMYCIN HIGH INTENSITY THERAPY TROUGH LEVEL: 15.0 - 20.0 mg/L High Intensity therapy recommended for serious life threatening infections include: - Meningitis -Endocarditis -Pneumonia (Ventilator/Healtcare Associated) -Sepsis PLEASE CONTACT PHARMACY SERVICES (#[id number]) FOR INTERPRETATION OF RESULTS. Performed By: #### L501.8820 #### [facility] [address] [place], [place], [address] BASIC METABOLIC Collected: 03/05/2018 Status: F Source: [facility] PROFILE (BMP) 5:18 AM [facility] REPOSITORY Order Comment: SPECIMEN OBTAINED FROM LINE DRAW TYPE CODE TESTS RESULT OUT OF RANGE REFERENCE UNITS LAB L501.0100 74-106 mg/dL High GLU 114 Result Comment: Fasting Glucose result from 100 to 125 mg/dL suggests IMPAIRED HOMEOSTASIS per A.D.A. criteria. Please note revised GLUCOSE reference range effective 2017. LAB L501.1000 7-18 mg/dL Normal BUN 10 LAB L501.1100 0.55-1.02 mg/dL Low CREAT,SERUM 0.35 Result Comment: The validity of the calculated GFR AND GFRAA in patients over 70 years has not been determined. Clinical correlation is essential. LAB L501.1110 >60 mL/min Normal EST GFR 197 Result Comment: Non- GFR Calc LAB L501.1115 >60 mL/min Normal EST GFR - AA 239 Result Comment: GFR Calc LAB L501.1255 ml/min Normal Estimated CRCL 44.54 LAB L501.1300 10-20 RATIO High BUN/CRE 28.7 LAB L501.2200 8.5-10 mg/dL Low .1 CA 8.1 LAB L501.5300 136-14 mmol/L Normal 5 NA 142 LAB L501.5600 3.5-5. mmol/L Low 1 K 3.2 LAB L501.5900 98-107 mmol/L Normal CL 101 LAB L501.6100 21.0-3 mmol/L High 2.0 CO2 35.0 LAB L501.6200 5-15 Normal GAP 6 Performed By: #### L500.2500 #### [facility] [address] [place], [place], [address] PROTHROMBIN TIME W/INR Collected: 03/05/2018 Status: F Source: [facility] 5:18 AM [facility] REPOSITORY Order Comment: SPECIMEN OBTAINED FROM LINE DRAW TYPE CODE TESTS RESULT OUT OF RANGE REFERENCE UNITS LAB L300.4150 11.7-14.9 SECONDS High PROTIME 17.0 LAB L300.4200 Normal INR 1.4 Performed By: #### L300.3900 #### [facility] [address] [place], [place], [address] CBC W/DIFF, AUTOMATED Collected: 03/05/2018 Status: F Source: [facility] 5:18 AM [facility] REPOSITORY Order Comment: SPECIMEN OBTAINED FROM LINE DRAW TYPE CODE TESTS RESULT OUT OF RANGE REFERENCE UNITS LAB L100.1000 4.4-11.0 K/mm3 Normal WBC 8.6 LAB L100.1200 4.2-5.4 M/mm3 Low RBC 3.33 LAB L100.1300 12.0-15.0 g/dl Low HGB 9.0 LAB L100.1400 37-47 % Low HCT 29.8 LAB L100.1500 81-99 fL Normal MCV 89.5 LAB L100.1600 27.0-32.0 pg Normal MCH 27.0 LAB L100.1700 32-36 g/gl Low MCHC 30.2 LAB L100.1810 11.6-14.6 % High RDW CV 17.6 LAB L100.1820 35.1-43.9 fl High RDW SD 54.5 LAB L100.1900 150-450 K/mm3 Normal PLT 314 LAB L100.2000 6.2-12.0 fl Normal MPV 8.4 LAB L100.2100 47-70 % High NEUT% 80.9 LAB L100.2200 19-41 % Low LY% 5.6 LAB L100.2300 0-10 % High MONO% 12.8 LAB L100.2400 0-5 % Normal EO% 0.5 LAB L100.2500 0-1 % Normal BASO% 0.1 LAB L100.2550 0.0-0.9 % Normal IM GRAN % 0.100 Result Comment: IG% - Immature Granulocytes (promyelocytes, myelocytes and metamyelocytes) > 1% indicates that a LEFT SHIFT is Present. LAB L100.2620 2.0-7.7 X10 3/uL Normal Absolute Neut 7.0 LAB L100.2720 0.83-4.51 X10 3/ul Low Absolute Lymph 0.48 Performed By: #### L100.0100 #### [facility] [address] [place], [place], [address] MRSA WOUND DNA BY Collected: 03/05/2018 Status: F Source: [facility] PCR 12:00 AM [facility] REPOSITORY Order Comment: Comments: SACRAL PRESSURE SORE Specimen Source? SACRAL PRESSURE SORE TYPE CODE TESTS RESULT OUT OF RANGE REFERENCE UNITS LAB L8200.1100 Negative Normal MRSA Negative RESULT LAB L8200.1150 Negative Normal SA RESULT NEGATIVE Performed By: #### L8200.1075 #### [facility] [place], [place], [address] MRSA WOUND DNA BY Collected: 03/05/2018 Status: F Source: [facility] PCR 12:00 AM [facility] REPOSITORY Order Comment: Comments: LEFT LEG TYPE CODE TESTS RESULT OUT OF RANGE REFERENCE UNITS LAB L8200.1100 Negative Normal MRSA Negative RESULT LAB L8200.1150 Negative Normal SA RESULT NEGATIVE Performed By: #### L8200.1075 #### [facility] [address] [place], [address] BEDSIDE GLUCOSE Collected: 03/04/2018 Status: F Source: [facility] 10:34 PM [facility] REPOSITORY TYPE CODE TESTS RESULT OUT OF REFERENCE UNITS RANGE LAB L501.080 70-110 mg/dL High BEDSIDE GLU 154 Result Comment: MANAGEMENT OF PATIENT CARE PER NURSING PROTOCOL Performed By: #### L501.080 #### [facility] Point [facility] [address] [place] [address] Observed: 03/04/2018 Status: F Source: [facility] CDIFF (MOLECULAR) 4:36 PM [facility] REPOSITORY Is the patient receiving laxatives? N New/unexplained onset of 3 or more stools in past 24 hrs? Y Cdiff-Molecular Normal Reference Range = Negative C. Diff DNA Negative- No toxigenic C. Diff DNA Detected NAAT METHOD Testing was performed using nucleic acid amplification Performed By: #### M100.6796 #### [facility] [address] [place], [place], [address] BEDSIDE GLUCOSE Collected: 03/04/2018 Status: F Source: [facility] 4:23 PM [facility] REPOSITORY TYPE CODE TESTS RESULT OUT OF REFERENCE UNITS RANGE LAB L501.080 70-110 mg/dL High BEDSIDE GLU 192 Result Comment: MANAGEMENT OF PATIENT CARE PER NURSING PROTOCOL Performed By: #### L501.080 #### [facility] [address] [facility] [place], [place] [address] CONSULTATION Observed: 03/04/2018 Status: F Source: [facility] 1:48 PM [facility] REPOSITORY [facility] Medical Records Department [address] [place] [address] Consultation 03/04/18 1341 MR#: [id number] Acct: [id number] Name: VENITA SMITH Rep #: [id number] : 1950 67 From: Syeda Palmer MD PCP: Shahzad HOYOS,Baron Chi Status: ADM IN Y Location: [place] [address] Problem List (1) Osteomyelitis of left foot Status: Acute Qualifiers: Osteomyelitis type: unspecified type Qualified Code(s): M86.9 - Osteomyelitis, unspecified Reason for Consult: fever Consulted by: Dr. Hairston History of Present Illness: The patient is a 67 year old F with recent admission here and then transfer to [facility] for R foot osteo and CAD requiring CABG. Cxs here of foot were negative. Had surg debridement done there and reported cxs (+) for CoNS and aspergillus, so discharged on ancef and vori to TCU here. Had been doing ok, no issues with chest. R foot healing ok. Developed fever 101.5, hypoxia, and noticed swelling at LLE vein donor site. Transferred to ED and admitted on vanc, cefepime, and vori. Feeling better today. Denies cough or SOB. No abd pain or n/v/d. Full ROS performed and neg except as noted above. - Medical History Past Medical History (Chronic Problems): Chronic Problems (Last Reviewed 11/22/17 @ 13:19 by Sherie Alves) Coronary artery disease (Chronic) Diabetes mellitus (Chronic) Obesity (Chronic) Neuropathic pain (Chronic) Obesity (BMI 30.0-34.9) (Chronic) HERNANDEZ (dyspnea on exertion) (Chronic) ELDER (obstructive sleep apnea) (Chronic) COPD (chronic obstructive pulmonary disease) (Chronic) Neuropathic pain (Chronic) Allergic rhinitis (Chronic) Asthma (Chronic) Mild asthma (Chronic) Osteoarthritis (Chronic) Hyperlipidemia (Chronic) Hypertension (Chronic) Type 2 diabetes mellitus (Chronic) Allergies/Adverse Reactions: Allergies lisinopril Adverse Reaction (Verified 02/26/18 11:13) Other metronidazole Adverse Reaction (Verified 02/26/18 11:13) Other Home Medications: Ambulatory Orders Medication Instructions Recorded - Social History SMOKING STATUS:: Former smoker Vital Signs Temp Pulse Resp BP Pulse Ox 98.9 F 88 20 H 149/99 H 97 03/04/18 08:51 03/04/18 10:50 03/04/18 10:50 03/04/18 08:51 03/04/18 10:50 Oxygen Flow Rate (L/min) 3 Oxygen Delivery Method Nasal Cannula Weight: 75 kg Body Mass Index (BMI) 29.2 Microbiology Past 72 Hours 03/04/18 08:45 Enteric Bacteriology - Final Stool Laboratory Tests Past 24 Hrs WBC 9.8 - Other Studies Radiology: []reviewed Other Studies: [] Route of nutrition/ use of supplements: [] Nutritional Intake: [] IV Site: [] Allen Catheter: [] - Physical Exam General: Alert, Oriented x3, Cooperative, No apparent distress HEENT: Atraumatic, PERRLA, EOMI Neck: Supple, No Nodes Lungs: Clear to auscultation, Normal air movement Cardiovascular: Regular rate, Regular Rhythm Abdomen: Bowel Sounds Present, Soft, Non Tender, Non-Distended Extremities: Peripheral Pulses Normal Skin: Ulcer/ Wound - R foot wound., - - L barboza with large bulla IV Site: PICC Musculoskeletal: No Tenderness to Palpation of Joints or Extremities Neurological: Cranial nerves II-XII grossly intact - Assessment/Plan Antibiotics: [] Assessment/Plan: [] Fever with hypoxia - recent surgery for R foot osteo, cxs from [facility] reportedly (+) for CoNS and aspergillus, discharged to TCU on ancef/vori. Normal wbc. Feeling better. CXR relatively clear except for some effusions/atelectasis. L barboza with large bulla at vein donor site, Dr. Iovry consulted. Large hematoma could be source of fever as well as nidus of infection. May need debridement. Continue broad empiric coverage with vanc/cefepime/vori. Will follow, thank you. 03/04/18 1348 <Electronically signed by Syeda Palmer MD> Date Syeda Palmer MD Cosigner Signature (if applicable): Date CC: Jermaine Ivory MD; Syeda Palmer MD; Baron Pike MD Signed BEDSIDE GLUCOSE Collected: 03/04/2018 Status: F Source: JEFRY 11:47 AM [facility] REPOSITORY TYPE CODE TESTS RESULT OUT OF REFERENCE UNITS RANGE LAB L501.080 70-110 mg/dL High BEDSIDE GLU 249 Result Comment: MANAGEMENT OF PATIENT CARE PER NURSING PROTOCOL Performed By: #### L501.080 #### [facility] [place] [address] Observed: 03/04/2018 Status: F Source: JEFRY ENTERIC PATHOGEN 8:45 AM [facility] PANEL STOOL REPOSITORY PANEL STOOL Normal Reference Range = Not Detected Not detected for Campylobacter group, Salmonella species, Shigella species, Vibrio Group, Yersinia enterocolitica, EHEC (Shiga Toxin 1, Shiga Toxin 2), Norovirus Gl/Gll, and Rotavirus A. Other common stool pathogens are not detected on this panel include: Aeromonas/Plesiomonas or parasites. Order testing for these organisms separately if suspected. This is an amplified DNA test which makes it both specific and sensitive. CAMPYLOBACTER Not Detected Salmonella Not Detected Shigella sp. Not Detected Shiga Toxin Not Detected Yersinia Not Detected VIBRIO Not Detected Norovirus Not Detected Rotavirus Not Detected Performed By: #### M100.637 #### [facility] [address] [place], [address] PROTHROMBIN TIME W/INR Collected: 03/04/2018 Status: F Source: SNYDER 8:25 AM [facility] REPOSITORY Order Comment: NURSE DRAW. TYPE CODE TESTS RESULT OUT OF RANGE REFERENCE UNITS LAB L300.4150 11.7-14.9 SECONDS High PROTIME 17.6 LAB L300.4200 Normal INR 1.4 Performed By: #### L300.3900 #### [facility] [address] [place], [address] DISCHARGE SUMMARY Observed: 03/04/2018 Status: F Source: SNYDER 7:59 AM [facility] REPOSITORY [facility] Medical Records Department [address] [place] [address] Discharge Summary 03/04/18 0757 MR#: [id number] Acct: [id number] Name: VENITA SMITH Rep #: [id number] : 1950 67 From: Baron Pike MD PCP: Baron Pike MD, Chi Status: DIS IN Y Location: [place] [id number] Discharge Date and Diagnosis Date of Admission: 02/25/18 Date of Discharge: 03/03/18 - Primary Discharge Diagnosis Fever. - Secondary Discharge Diagnosis Chronic Problems (Last Reviewed 11/22/17 @ 13:19 by Sherie Alves) Coronary artery disease (Chronic) Diabetes mellitus (Chronic) Obesity (Chronic) Neuropathic pain (Chronic) Obesity (BMI 30.0-34.9) (Chronic) HERNANDEZ (dyspnea on exertion) (Chronic) ELDER (obstructive sleep apnea) (Chronic) COPD (chronic obstructive pulmonary disease) (Chronic) Neuropathic pain (Chronic) Allergic rhinitis (Chronic) Asthma (Chronic) Mild asthma (Chronic) Osteoarthritis (Chronic) Hyperlipidemia (Chronic) Hypertension (Chronic) Type 2 diabetes mellitus (Chronic) Hospital Course and Treatment Consultations 02/25/18 Consult: Onc/Wound/research professor Routine Comment: Reason for Consult:: rt toe abcess post i AND d, lt leg hematoma, stage III pressure ulcer Operations: None Procedures: None Summary of Care Provided: The patient is a 67 year old Female with below past medical history hospitalized for CABG x 3, complicated by post-operative anemia, left foot osteomyelitis, admitted to TCU with debility, here for rehabilitation, strengthening, prior to discharge home alone. 03/03/2018 Resident developed fever, already on intravenous antibiotics for cellulitis of leg. Discharge to [facility] for admission to hospital. Discharge Diet: No Restrictions Discharge Activity: Use Walker Weight Bearing Status: Weight bearing as tolerated Call your doctor if you observe: Fever of 101 or Higher, Inability to urinate, Inability to have a bowel movement, Shortness of breath, Chest pain, Uncontrolled pain Home Medications: Medications to take at Discharge Cyanocobalamin [Vitamin B12] 1,000 mcg PO DAILY@0800 01/18/17 Lisinopril [Prinivil] 5 mg PO DAILY 01/18/17 gabapentin 300 mg capsule 600 mg PO TID cap 08/23/17 Glimepiride [Amaryl] 8 mg PO DAILY 09/18/17 Loratadine 10 mg PO DAILY 09/18/17 Lidocaine [Lidoderm Patch] 1 patch TRANSDERM. DAILY 02/04/18 Acetaminophen [Non-Aspirin Pain Relief] 1,000 mg PO Q8 03/04/18 Ascorbic Acid [Vitamin C] 500 mg PO BIDCM 03/04/18 Aspirin E.C. [Ecotrin] 81 mg PO DAILY@0800 03/04/18 Benzocaine/Menthol [Cepacol Sore Throat Lozenge] 1 lozenge MM Q2H PRN PRN 03/04/18 Bisacodyl [Dulcolax] 10 mg RECTAL DAILY PRN PRN 03/04/18 Carvedilol [Coreg] 6.25 mg PO BID 03/04/18 Cefazolin Sodium in 0.9 % NaCl [Cefazolin 2 G/100 ml-0.9% NaCl] 2 gm IV Q8 03/04/18 Clopidogrel Bisulfate [Plavix] 75 mg PO DAILY 03/04/18 Fluticasone/Salmeterol [Fluticasone-Salmeterol 232-14] 1 each IH BID 03/04/18 Folic Acid 1 mg PO DAILY@0800 03/04/18 Furosemide [Lasix] 40 mg PO DAILY 03/04/18 Glucagon [(None)] 1 mg IM X1 PRN 03/04/18 Insulin Detemir [Levemir (BKC)] 20 units SC QHS 03/04/18 Insulin Lispro [Humalog KwikPen] 18 unit SQ DAILY@1200 03/04/18 Insulin Lispro [Humalog KwikPen] 18 unit SQ DAILY@1700 03/04/18 Insulin Lispro [Humalog KwikPen] 22 unit SQ BREAKFAST 03/04/18 Ipratropium/Albuterol Sulfate [Duoneb] 3 ml INHALATION TID 03/04/18 Iron Polysaccharide Complex [Ferrex 150] 150 mg PO BID 03/04/18 Melatonin 3 mg PO QHS 03/04/18 Menthol/Lanolin/Calamine/Znox [Calmoseptine Ointment] 1 applic TP TID 03/04/18 Nystatin Powder [Mycostatin Powder] 1 applic TOPICAL BID 03/04/18 Oxycodone [Oxyir] 5 mg PO Q6H PRN PRN 03/04/18 Pantoprazole Sodium [Protonix] 40 mg PO DAILY 03/04/18 Polyethylene Glycol 3350 [Miralax] 17 gm PO DAILY 03/04/18 Senna/Docusate Sodium [Senokot-S, Iqra-Colace] 2 tablet PO BID 03/04/18 Voriconazole [Vfend] 200 mg PO Q12H 03/04/18 Warfarin [Coumadin (PBKC)] 3 mg PO DAILY 03/04/18 Primary Care Physician: Baron Pike Chi, MD [Primary Care Provider] - Please follow up with your Primary Care Physician in: After Hospitalization/TCU. Please Follow Up With: Mehran Wei When: 2 weeks Please Follow Up With: Dr. Karen Cordero III When: 2 weeks Please Follow Up With: Dr Gonzalez Disposition: Acute care Hospital Minutes spent on discharge:: 30 Patient Condition:: Guarded Medical Necessity - Tobacco Use Smoking Status: Former smoker Tobacco Use: Non-smoker Meaningful Use Info Meaningful Use Diagnoses (Choose all that apply): None applicable 03/04/18 0759 <Electronically signed by Baron Pike MD> Date Baron Pike MD Cosigner Signature (if applicable): Date CC: Baron Pike MD Signed DISCHARGE INSTRUCTION Observed: 03/04/2018 Status: F Source: SNYDER 7:57 AM [facility] REPOSITORY [facility] Medical Records Department [address] [place] [address] Instructions for Home/Discharge Instructions 03/04/18 0755 MR#: [id number] Acct: [id number] Name: VENITA SMITH Rep #: [id number] : 1950 67 From: Baron Pike MD PCP: Baron Pike MD, Chi Status: DIS IN You will use the following diet at home:: No restrictions, Regular Your food should be the consistency of: Regular Your liquids should be the consistency of: Regular/Thin Discharge Activity: Use Walker Weight Bearing Status: Weight bearing as tolerated Call your doctor if you observe: Fever of 101 or Higher, Inability to urinate, Inability to have a bowel movement, Shortness of breath, Chest pain, Uncontrolled pain Allergies/Adverse Reactions: Allergies lisinopril Adverse Reaction (Verified 02/26/18 11:13) Other metronidazole Adverse Reaction (Verified 02/26/18 11:13) Other Medications to take at Discharge Cyanocobalamin [Vitamin B12] 1,000 mcg PO DAILY@0800 01/18/17 Lisinopril [Prinivil] 5 mg PO DAILY 01/18/17 gabapentin 300 mg capsule 600 mg PO TID cap 08/23/17 Glimepiride [Amaryl] 8 mg PO DAILY 09/18/17 Loratadine 10 mg PO DAILY 09/18/17 Lidocaine [Lidoderm Patch] 1 patch TRANSDERM. DAILY 02/04/18 Acetaminophen [Non-Aspirin Pain Relief] 1,000 mg PO Q8 03/04/18 Ascorbic Acid [Vitamin C] 500 mg PO BIDCM 03/04/18 Aspirin E.C. [Ecotrin] 81 mg PO DAILY@0800 03/04/18 Benzocaine/Menthol [Cepacol Sore Throat Lozenge] 1 lozenge MM Q2H PRN PRN 03/04/18 Bisacodyl [Dulcolax] 10 mg RECTAL DAILY PRN PRN 03/04/18 Carvedilol [Coreg] 6.25 mg PO BID 03/04/18 Cefazolin Sodium in 0.9 % NaCl [Cefazolin 2 G/100 ml-0.9% NaCl] 2 gm IV Q8 03/04/18 Clopidogrel Bisulfate [Plavix] 75 mg PO DAILY 03/04/18 Fluticasone/Salmeterol [Fluticasone-Salmeterol 232-14] 1 each IH BID 03/04/18 Folic Acid 1 mg PO DAILY@0800 03/04/18 Furosemide [Lasix] 40 mg PO DAILY 03/04/18 Glucagon [(None)] 1 mg IM X1 PRN 03/04/18 Insulin Detemir [Levemir (BKC)] 20 units SC QHS 03/04/18 Insulin Lispro [Humalog KwikPen] 18 unit SQ DAILY@1200 03/04/18 Insulin Lispro [Humalog KwikPen] 18 unit SQ DAILY@1700 03/04/18 Insulin Lispro [Humalog KwikPen] 22 unit SQ BREAKFAST 03/04/18 Ipratropium/Albuterol Sulfate [Duoneb] 3 ml INHALATION TID 03/04/18 Iron Polysaccharide Complex [Ferrex 150] 150 mg PO BID 03/04/18 Melatonin 3 mg PO QHS 03/04/18 Menthol/Lanolin/Calamine/Znox [Calmoseptine Ointment] 1 applic TP TID 03/04/18 Nystatin Powder [Mycostatin Powder] 1 applic TOPICAL BID 03/04/18 Oxycodone [Oxyir] 5 mg PO Q6H PRN PRN 03/04/18 Pantoprazole Sodium [Protonix] 40 mg PO DAILY 03/04/18 Polyethylene Glycol 3350 [Miralax] 17 gm PO DAILY 03/04/18 Senna/Docusate Sodium [Senokot-S, Iqra-Colace] 2 tablet PO BID 03/04/18 Voriconazole [Vfend] 200 mg PO Q12H 03/04/18 Warfarin [Coumadin (PBKC)] 3 mg PO DAILY 03/04/18 Primary Care Physician: Baron Pike Chi, MD [Primary Care Provider] - Please follow up with your Primary Care Physician in: After Hospitalization/TCU. Please Follow Up With: Mehran Wei When: 2 weeks Please Follow Up With: Dr. Karen Cordero III When: 2 weeks Please Follow Up With: Dr Gonzalez Proposed Discharge Date: 03/03/18 03/04/18 0757 <Electronically signed by Baron Pkie MD> Date Baron Pike MD CC: Baron Pike MD CBC W/DIFF, AUTOMATED Collected: 03/04/2018 Status: F Source: JEFRY 6:50 AM [facility] REPOSITORY TYPE CODE TESTS RESULT OUT OF RANGE REFERENCE UNITS LAB L100.1000 4.4-11.0 K/mm3 Normal WBC 9.8 LAB L100.1200 4.2-5.4 M/mm3 Low RBC 3.38 LAB L100.1300 12.0-15.0 g/dl Low HGB 8.9 LAB L100.1400 37-47 % Low HCT 29.7 LAB L100.1500 81-99 fL Normal MCV 87.9 LAB L100.1600 27.0-32.0 pg Low MCH 26.3 LAB L100.1700 32-36 g/gl Low MCHC 30.0 LAB L100.1810 11.6-14.6 % High RDW CV 18.1 LAB L100.1820 35.1-43.9 fl High RDW SD 57.8 LAB L100.1900 150-450 K/mm3 Normal PLT 245 LAB L100.2000 6.2-12.0 fl Normal MPV 8.0 LAB L100.2100 47-70 % High NEUT% 83.2 LAB L100.2200 19-41 % Low LY% 5.3 LAB L100.2300 0-10 % High MONO% 11.4 LAB L100.2400 0-5 % Normal EO% 0.0 LAB L100.2500 0-1 % Normal BASO% 0.0 LAB L100.2550 0.0-0.9 % Normal IM GRAN % 0.100 Result Comment: IG% - Immature Granulocytes (promyelocytes, myelocytes and metamyelocytes) > 1% indicates that a LEFT SHIFT is Present. LAB L100.2620 2.0-7.7 X10 3/uL High Absolute Neut 8.1 LAB L100.2720 0.83-4.51 X10 3/ul Low Absolute Lymph 0.52 LAB L100.4500 Normal SMEAR COMMENT COMMENT Result Comment: SLIDE SCANNED - LYMPHOPENIA NOTED. Performed By: #### L100.0100 #### [facility] [address] [place], [address] BASIC METABOLIC Collected: 03/04/2018 Status: F Source: SNYDER PROFILE (BMP) 6:50 AM [facility] REPOSITORY TYPE CODE TESTS RESULT OUT OF RANGE REFERENCE UNITS LAB L501.0100 74-106 mg/dL High GLU 196 Result Comment: Fasting Glucose result greater than or equal to 126 mg/dL suggests DIABETES MELLITUS per A.D.A. criteria. Please note revised GLUCOSE reference range effective 2017. LAB L501.1000 7-18 mg/dL Normal BUN 12 LAB L501.1100 0.55-1.02 mg/dL Low CREAT,SERUM 0.45 Result Comment: The validity of the calculated GFR AND GFRAA in patients over 70 years has not been determined. Clinical correlation is essential. LAB L501.1110 >60 mL/min Normal EST GFR 146 Result Comment: Non- GFR Calc LAB L501.1115 >60 mL/min Normal EST GFR - AA 177 Result Comment: GFR Calc LAB L501.1255 ml/min Normal Estimated CRCL 44.54 LAB L501.1300 10-20 RATIO High BUN/CRE 26.5 LAB L501.2200 8.5-10 mg/dL Low .1 CA 8.3 LAB L501.5300 136-14 mmol/L Normal 5 NA 139 LAB L501.5600 3.5-5. mmol/L Normal 1 K 3.7 LAB L501.5900 98-107 mmol/L Normal CL 99 LAB L501.6100 21.0-3 mmol/L Normal 2.0 CO2 31.0 LAB L501.6200 5-15 Normal GAP 9 Performed By: #### L500.2500 #### [facility] [address] [facility] [place], [address] BEDSIDE GLUCOSE Collected: 03/04/2018 Status: F Source: SNYDER 6:40 AM [facility] REPOSITORY TYPE CODE TESTS RESULT OUT OF REFERENCE UNITS RANGE LAB L501.080 70-110 mg/dL High BEDSIDE GLU 192 Result Comment: MANAGEMENT OF PATIENT CARE PER NURSING PROTOCOL Performed By: #### L501.080 #### [facility] Point of Care [address] [place] [address] BEDSIDE GLUCOSE Collected: 03/03/2018 Status: F Source: SNYDER 9:27 PM [facility] REPOSITORY TYPE CODE TESTS RESULT OUT OF REFERENCE UNITS RANGE LAB L501.080 70-110 mg/dL High BEDSIDE GLU 140 Result Comment: MANAGEMENT OF PATIENT CARE PER NURSING PROTOCOL Performed By: #### L501.080 #### [facility] Point of Care [address] [place] [address] HISTORY AND PHYSICAL Observed: 03/03/2018 Status: F Source: SNYDER EXAM 7:14 PM [facility] REPOSITORY [facility] Medical Records Department [address] [place] [address] History and Physical 03/03/18 1850 MR#: [id number] Acct: [id number] Name: VENITA SMITH Rep #: [id number] : 1950 67 From: Michelle Hairston MD PCP: Shahzad HOYOS,Baron Bryant Status: ADM IN Y Location: MS3 DM101-5 Problem List (1) Osteomyelitis of left foot Status: Acute Qualifiers: Osteomyelitis type: unspecified type Qualified Code(s): M86.9 - Osteomyelitis, unspecified (2) Coronary artery disease Status: Chronic Qualifiers: Coronary Disease-Associated Artery/Lesion type: unspecified vessel or lesion type Associated angina: without angina (3) Diabetes mellitus Status: Chronic Qualifiers: Diabetes mellitus type: type 2 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: 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 detention insulin use status Diabetes mellitus complication status: with unspecified complications Qualified Code(s): E11.8 - Type 2 diabetes mellitus with unspecified complications (4) Obesity Status: Chronic Qualifiers: Obesity type: unspecified obesity type (5) Neuropathic pain Status: Chronic (6) Cellulitis of right foot Status: Acute (7) Hyperlipidemia Status: Chronic Qualifiers: Hyperlipidemia type: unspecified Qualified Code(s): E78.5 - Hyperlipidemia, unspecified History of Present Illness Date of Admission: 03/03/18 Chief Complaint: Fever and hypoxia The patient is a 67 year old F with past medical history of CAD status post CABG(3 vessel, done in [facility] after transfer from [facility] on February 15), left lower extremity cellulitis as well as right foot osteomyelitis. Patient was admitted to the TCU on 02/25/2018 for rehab. She is being managed with anemia, osteomyelitis of the left foot, left upper extremity DVT. She was brought to the ED with complaints of fever and hypoxia. She is on cefazolin and is being followed by infectious disease. Patient was noted today to have SPO2 of 88% on 2 L of oxygen and with a temperature of 101. She was sent to the ED for evaluation. On arrival to the ED, temperature 98.4, heart rate is 101, blood pressure 153/56, respiratory rate was 28, saturating 93% on 3 L of oxygen. Lab Investigation appeared stable with WBC count of 10.6, Hb 8.5, platelets of 252. INR is 1.5, sodium 133, potassium 3.4 chloride 95, bicarb 31, BUN 12, creatinine 0.57. Lactic acid was 0.7. Urine cultures have been taking in the ED. Past Medical History Past Medical History (Chronic Problems): Chronic Problems (Last Reviewed 11/22/17 @ 13:19 by Sherie Alves) Coronary artery disease (Chronic) Diabetes mellitus (Chronic) Obesity (Chronic) Neuropathic pain (Chronic) Obesity (BMI 30.0-34.9) (Chronic) HERNANDEZ (dyspnea on exertion) (Chronic) ELDER (obstructive sleep apnea) (Chronic) COPD (chronic obstructive pulmonary disease) (Chronic) Neuropathic pain (Chronic) Allergic rhinitis (Chronic) Asthma (Chronic) Mild asthma (Chronic) Osteoarthritis (Chronic) Hyperlipidemia (Chronic) Hypertension (Chronic) Type 2 diabetes mellitus (Chronic) Medical History: Medical History (Last Reviewed 11/22/17 @ 13:19 by Sherie Alves) Suspected sleep apnea (Acute) G47.30 Fall (Acute) W19.XXXA COPD (chronic obstructive pulmonary disease) (Chronic) J44.9 Neuropathic pain (Chronic) Allergic rhinitis (Chronic) J30.9 Asthma (Chronic) J45.909 Community acquired pneumonia (Acute) J18.9 Rhabdomyolysis (Acute) M62.82 Acute kidney injury (Acute) N17.9 Mild asthma (Chronic) J45.998 Osteoarthritis (Chronic) M19.90 Hyperlipidemia (Chronic) E78.5 Hypertension (Chronic) I10 Type 2 diabetes mellitus (Chronic) E11.9 Abnormal echocardiogram R93.1 Cardiomegaly I51.7 GERD (gastroesophageal reflux disease) K21.9 Hypertriglyceridemia E78.1 Hypoxia R09.02 ELDER (obstructive sleep apnea) G47.33 Tobacco use Z72.0 Vitamin D deficiency E55.9 Allergies lisinopril Adverse Reaction (Verified 02/26/18 11:13) Other metronidazole Adverse Reaction (Verified 02/26/18 11:13) Other Home Medications: Ambulatory Orders Medication Instructions Recorded Atorvastatin Calcium [Lipitor] 80 mg PO QHS 01/18/17 Surgical History: Surgical History (Last Reviewed 11/22/17 @ 13:19 by Sherie Alves) H/O adenoidectomy Z90.89 History of appendectomy Z90.49 History of carpal tunnel release Z98.890 History of hysterectomy Z90.710 History of tonsillectomy Z90.89 Surgical History: appendectomy, coronary bypass surgery - X 5., hysterectomy, tonsillectomy, - - Bilateral tubal ligation. 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 Sibling Family History: Family History (Last Reviewed 11/22/17 @ 13:19 by Sherie Alves) Mother Colon cancer History Items: Diabetes, Heart Disease, - - ELDER Review of Systems Constitutional: Reports: Weakness. Denies: Anorexia, Chills, Fever, Weight Change Eyes: Denies: Blurred vision, Cataracts, Conjunctivae Inflammation, Double vision, Pain, Redness HEENT: Denies: Difficulty Hearing, Difficulty Swallowing, Head Aches, Hearing Changes, Sinus Congestion, Sinus Drainage, Sore Throat Cardiovascular: Reports: Edema. Denies: Chest Pain, Claudication, Orthopnea, Palpitations Respiratory: Denies: Cough, Shortness of breath at rest, Sputum production Gastrointestinal: Denies: Abdominal Pain, Constipation, Hematemesis, Nausea, Vomiting Genitourinary: Denies: Dysuria, Frequency Gynecological: Denies: Breast symptoms, Excessively long or heavy periods Musculoskeletal: Denies: Joint Pain, Joint Tenderness Skin: Denies: Rash, Wounds Neurological: Denies: Numbness, Tingling, Focal weakness Psychiatric: Denies: Anxiety, Depression, Homicidal Ideations, Suicidal Ideations Hematologic/ Lymphatic: Denies: Easy Bruising, Easy Bleeding VTE Information - Inpt Only VTE Present on Admission: No VTE Pharm Prophylaxis ordered?: Yes - Physical Exam General: Alert, Oriented x3, Cooperative, No apparent distress HEENT: Atraumatic, PERRLA, EOMI, Normocephalic Oral: Moist Mucosa Neck: Supple Lungs: Clear to auscultation, Normal air movement Cardiovascular: Regular rate, Regular Rhythm, Normal S1, Normal S2, No murmurs Abdomen: Bowel Sounds Present, Soft, Non Tender, Non-Distended, No Hepato-splenomegaly Extremities: Edema - Bilateral leg edema +3, open wounds on both with dressing, ecchymoses, no purulent discharge. LUE edema Skin: No rashes, No breakdown Musculoskeletal: No Tenderness to Palpation of Joints or Extremities Neurological: Cranial nerves II-XII grossly intact Psych/Mental Status: Normal Affect, Appropriate Vital Signs Temp Pulse Resp BP Pulse Ox 99.9 F H 94 26 H 142/46 H 93 03/03/18 18:29 03/03/18 18:29 03/03/18 18:29 03/03/18 18:29 03/03/18 18:29 Oxygen Flow Rate (L/min) 3 Oxygen Delivery Method Nasal Cannula Weight: 75 kg Body Mass Index (BMI) 29.2 Assessment/Plan All Active Problems (Last Reviewed 11/22/17 @ 13:19 by Sherie Alves) Osteomyelitis of left foot (Acute) Pain in right toe(s) (Acute) Cellulitis of right foot (Acute) Abscess of toe of right foot (Acute) Type 2 diabetes mellitus (Acute) Infectious arthritis (Acute) Hypoxia (Acute) Suspected sleep apnea (Acute) Fall (Acute) Community acquired pneumonia (Acute) Rhabdomyolysis (Acute) Acute kidney injury (Acute) 67 year old F with past medical history of CAD status post CABG(3 vessel, done in [facility] after transfer from [facility] on February 15), left lower extremity cellulitis as well as right foot osteomyelitis. Patient was admitted to the TCU on 02/25/2018 for rehab. She is being managed with anemia, osteomyelitis of the left foot, left upper extremity DVT. She was brought to the ED with complaints of fever and hypoxia. 1. Fever, likely source is from bilateral leg cellulitis with left osteomyelitis, cultures taken by the ED, patient was on cefazolin, discussion of patient by the ED physician with ID, patient to be switched to cefepime Plan: Admit to [facility], monitor on telemetry, IV cefepime and vancomycin(since patient has been admitted in the hospital for almost a week), ID consult, wound consult 2. Left foot osteomyelitis, per records, bone cultures grew coagulase-negative staph aureus, aspergillosis, will continue IV antibiotics, 3. CAD status post three-vessel CABG, continue post CABG precautions and medications 4. Postoperative anemia, status post multiple blood transfusions, hemoglobin is stable at 8.5 5. Left upper extremity DVT, on Coumadin, INR is 1.5, will put on therapeutic Lovenox until INR is therapeutic, continue Coumadin 6. Type 2 DM, will continue home regimen, Accu-Cheks with insulin sliding scale 7. DVT prophylaxis - on coumadin/therapeutic lovenox. Code Visit Inpatient E AND M: [id number] Init Hosp L3 03/03/181913 <Electronically signed by Michelle Hairston MD> Date Michelle Hairston MD Cosigner Signature: Date (if applicable) CC: Michelle Hairston MD; Baron Pike MD Signed BEDSIDE GLUCOSE Collected: 03/03/2018 Status: F Source: SNYDER 7:11 PM [facility] REPOSITORY TYPE CODE TESTS RESULT OUT OF REFERENCE UNITS RANGE LAB L501.080 70-110 mg/dL High BEDSIDE GLU 145 Result Comment: MANAGEMENT OF PATIENT CARE PER NURSING PROTOCOL Performed By: #### L501.080 #### [facility] Point of Care [address] [place] [address] EMERGENCY DEPARTMENT Observed: 03/03/2018 Status: F Source: SNYDER SUMMARY 5:07 PM [facility] REPOSITORY [facility] Medical Records Department [address] [place] [address] Emergency Department Summary 03/03/18 1449 MR#: [id number] Acct: [id number] Name: VENITA SMITH Rep #: [id number] : 1950 67 From: Sherrill Huizar MD PCP: Baron Pike MD, Chi Status: REG ER - ER Visit Summary Date of Service: 03/03/18 Chief Complaint: Fever History of Present Illness: The patient is a 67 F presenting with fever, hypoxia. Patient was admitted to the TCU on 02/25/2018. She had CABG on February 15 at [facility]. This was complicated by anemia, osteomyelitis left foot, left upper extremity DVT. She is on IV antibiotics and is being followed by ID. Today noted that she was 88% on 2 L with a temperature of 101. She was sent to the ED for further evaluation. Physical Examination: Vitals are stable. Patient is afebrile. Alert no acute distress. HEENT exam is unremarkable. Neck is supple. Lungs are clear and equal bilaterally. Incision clean dry intact Heart is regular rate and rhythm. Abdomen is soft nontender nondistended. Extremities left calf incision with surrounding erythema, right foot ulcerations. Skin is warm and dry. No focal neurologic deficit. Remainder of exam is unremarkable. Emergency Department Course and Treatment: EKG is sinus rate of 100. Chest x-ray shows bilateral effusions. CBC showed hemoglobin 8.5, hematocrit 27.5. This is stable from previous. Chemistry show sodium 133, glucose 149. INR is 1.5. Urinalysis shows 10-25 white blood cells positive bacteria. Troponin is 0.019. Lactic acid is normal. Blood and urine cultures were sent. Discussed with ID recommends switching cefazolin to cefepime. Discussed with Dr. Hairston for admission. Disposition: Admission Impression: Febrile illness, UTI, right foot osteomyelitis, left lower extremity cellulitis This note was generated with [employer] dictation software. It may contain incorrect words, spelling, and punctuation that were not noted in review of the chart prior to signing ED Disposition - Plan for ED Patient: Chief Complaint: General Illness Referrals: Baron Pike Chi, MD [Primary Care Provider] - What to do if you have Problems For any increased pain, shortness of breath, bleeding, nausea or vomiting, chest pain, or any unexpected problems, contact your Primary Care Provider. Call [facility] ([phone]) or report to the closest Emergency Room. Call 911 if necessary. 03/03/18 1707 <Electronically signed by Sherrill Huizar MD> Date Sherrill Huizar MD Cosigner Signature (If Indicated): Date CC: Baron Pike MD Observed: 03/03/2018 Status: F Source: JEFRY CULTURE, BLOOD (WB) 3:15 PM [facility] REPOSITORY BC No growth in 5 days. Performed By: #### M200.1000 #### [facility] [place], [address] CBC W/DIFF, AUTOMATED Collected: 03/03/2018 Status: F Source: JEFRY 3:07 PM [facility] REPOSITORY TYPE CODE TESTS RESULT OUT OF RANGE REFERENCE UNITS LAB L100.1000 4.4-11.0 K/mm3 Normal WBC 10.6 LAB L100.1200 4.2-5.4 M/mm3 Low RBC 3.15 LAB L100.1300 12.0-15.0 g/dl Low HGB 8.5 LAB L100.1400 37-47 % Low HCT 27.5 LAB L100.1500 81-99 fL Normal MCV 87.3 LAB L100.1600 27.0-32.0 pg Normal MCH 27.0 LAB L100.1700 32-36 g/gl Low MCHC 30.9 LAB L100.1810 11.6-14.6 % High RDW CV 18.1 LAB L100.1820 35.1-43.9 fl High RDW SD 57.2 LAB L100.1900 150-450 K/mm3 Normal PLT 252 LAB L100.2000 6.2-12.0 fl Normal MPV 8.3 LAB L100.2100 47-70 % High NEUT% 82.8 LAB L100.2200 19-41 % Low LY% 6.6 LAB L100.2300 0-10 % High MONO% 10.2 LAB L100.2400 0-5 % Normal EO% 0.1 LAB L100.2500 0-1 % Normal BASO% 0.1 LAB L100.2550 0.0-0.9 % Normal IM GRAN % 0.200 Result Comment: IG% - Immature Granulocytes (promyelocytes, myelocytes and metamyelocytes) > 1% indicates that a LEFT SHIFT is Present. LAB L100.2620 2.0-7.7 X10 3/uL High Absolute Neut 8.8 LAB L100.2720 0.83-4.51 X10 3/ul Low Absolute Lymph 0.70 Performed By: #### L100.0100 #### [facility] [address] [place], [address] PROTHROMBIN TIME W/INR Collected: 03/03/2018 Status: F Source: SNYDER 3:07 PM [facility] REPOSITORY TYPE CODE TESTS RESULT OUT OF RANGE REFERENCE UNITS LAB L300.4150 11.7-14.9 SECONDS High PROTIME 18.2 LAB L300.4200 Normal INR 1.5 Performed By: #### L300.3900 #### [facility] [address] [place], [address] BASIC METABOLIC Collected: 03/03/2018 Status: F Source: JEFRY PROFILE (BMP) 3:07 PM [facility] REPOSITORY TYPE CODE TESTS RESULT OUT OF RANGE REFERENCE UNITS LAB L501.0100 74-106 mg/dL High GLU 149 Result Comment: Fasting Glucose result greater than or equal to 126 mg/dL suggests DIABETES MELLITUS per A.D.A. criteria. Please note revised GLUCOSE reference range effective 2017. LAB L501.1000 7-18 mg/dL Normal BUN 12 LAB L501.1100 0.55-1.02 mg/dL Normal CREAT,SERUM 0.57 Result Comment: The validity of the calculated GFR AND GFRAA in patients over 70 years has not been determined. Clinical correlation is essential. LAB L501.1110 >60 mL/min Normal EST GFR 112 Result Comment: Non- GFR Calc LAB L501.1115 >60 mL/min Normal EST GFR - AA 136 Result Comment: GFR Calc LAB L501.1255 ml/min Normal Estimated CRCL 44.54 LAB L501.1300 10-20 RATIO High BUN/CRE 21.1 LAB L501.2200 8.5-10 mg/dL Low .1 CA 8.1 LAB L501.5300 136-14 mmol/L Low 5 NA 133 LAB L501.5600 3.5-5. mmol/L Low 1 K 3.4 LAB L501.5900 98-107 mmol/L Low CL 95 LAB L501.6100 21.0-3 mmol/L Normal 2.0 CO2 31.0 LAB L501.6200 5-15 Normal GAP 7 Performed By: #### L500.2500, L501.4010 #### [facility] [address] [place], [address] TROPONIN-I Collected: 03/03/2018 Status: F Source: JEFRY 3:07 PM [facility] REPOSITORY TYPE CODE TESTS RESULT OUT OF RANGE REFERENCE UNITS LAB L501.4010 <0.045 ng/mL Normal 0.019 TROPONIN-I Result Comment: TROPONIN-I EXPECTED VALUES <0.045 Negative 0.045 - 0.590 Consistent with Cardiac Damage > OR = 0.600 Critical Value Not every elevated troponin is indicative of NH. These values should be used with clinical judgement in examining the patient's clinical picture for diagnosis. To establish a diagnosis of NH versus myocardial injury, there must be a demonstrated rise and/or fall in the troponin values, in addition to ischemic symptoms, EKG changes, new regional wall motion abnormality, and/or angiographical evidence. PLEASE NOTE: REFERENCE RANGES EDITED 18 Performed By: #### L500.2500, L501.4010 #### [facility] [address] [place], [address] LACTIC ACID Collected: 03/03/2018 Status: F Source: JEFRY 3:07 PM [facility] REPOSITORY Order Comment: Yes/No query for Sepsis Lactate Rule Y TYPE CODE TESTS RESULT OUT OF RANGE REFERENCE UNITS LAB L503.6005 0.4-2.0 mmol/L Normal LACTIC ACID 0.7 Performed By: #### L503.6005 #### [facility] [address] [place], [address] Observed: 03/03/2018 Status: F Source: JEFRY CULTURE, BLOOD (WB) 3:07 PM [facility] REPOSITORY BC No growth in 5 days. Performed By: #### M200.1000 #### [facility] [address] [place], [address] URINALYSIS, COMPLETE Collected: 03/03/2018 Status: F Source: JEFRY 3:00 PM [facility] REPOSITORY Order Comment: Order Date: 03/03/18 How was Urine Obtained? CATHETER SPECIMEN TYPE CODE TESTS RESULT OUT OF RANGE REFERENCE UNITS LAB L400.3000 Yellow COLOR Normal Yellow LAB L400.3050 Clear Normal CLARITY Clear LAB L400.3200 Normal mg/dl Normal GLUCOSE, UR Normal LAB L400.3300 Negative mg/dL Normal BILIRUBIN URINE Negative LAB L400.3400 Negative mg/dl High 5 KETONE UR LAB L400.3465 1.002-1.030 Normal SP.GR. DIPSTX 1.015 LAB L400.3550 5.0 - 8.0 pH UR Normal 6.0 LAB L400.3600 Negative mg/dl High PROT DIPSTX 100 LAB L400.3700 Normal mg/dl High 4 UROBILI LAB L400.3750 Negative Normal NITRITE UR Negative LAB L400.3780 Negative /ul High 25 OCCULT BLOOD-UR LAB L400.3800 Negative /ul High LEUK ESTERASE 100 LAB L400.4050 0-5 /hpf WBC Normal 10-25 SEEN LAB L400.4100 0-5 /hpf 0 Normal RBC-UA SEEN LAB L400.4150 5-10 /hpf SQUAM Normal EPI 0-5 SEEN LAB L400.4300 None Seen /hpf 1+ Normal BACTERIA LAB L400.4350 <or=2+ /hpf 0 Normal MUCUS, URINE SEEN Performed By: #### L400.0001 #### [facility] [address] [place], [address] Observed: 03/03/2018 Status: F Source: JEFRY CULTURE, URINE 3:00 PM [facility] REPOSITORY Order Date: 03/03/18 Urine Culture Culture exhibits no growth. Performed By: #### M100.0650 #### [facility] [address] [place], [place], [address] CHEST 1 VIEW Observed: 03/03/2018 Status: F Source: JEFRY (PORTABLE) 2:45 PM [facility] REPOSITORY [facility] Imaging Services [address] [place] [address] Chest 1 View (Portable) MR#: [id number] Acct: [id number] Name: VENITA SMITH Rep #: [id number] : 1950 F 67 From: Faye Rojas MD PCP: Shahzad HOYOS,Baron Chi Status: REG ER Study: Chest 1 View (Portable) Date of Exam: 03/03/18 Exam# [id number] Ordering Dr: Sherrill Huizar MD STUDY: X-RAY CHEST REASON FOR EXAM: Female, 67 years old. Pre-op open heart with fever TECHNIQUE: Single AP portable view of the chest. COMPARISON: February 26, 2018 chest x-ray FINDINGS: There is persistent blunting of the left costophrenic angle. There is persistent hazy appearance of the right cardiophrenic angle. Sternotomy wires are seen midline. Normal mediastinum and cristofer. Normal visualized pulmonary arteries. There is atherosclerotic calcification of the aortic arch with tortuosity. There are diffuse degenerative changes of the visualized thoracic spine. Normal visualized ribs, clavicles, and shoulders. There is no demonstrated abnormality of the visualized soft tissue structures of the upper abdomen. RAD/Chest 1 View (Portable) IMPRESSION: Findings are suspicious for persistent bilateral pleural effusions lower lobe atelectasis. Status post sternotomy. 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 [place], [place] [address] BEDSIDE GLUCOSE Collected: 03/03/2018 Status: F Source: JEFRY 11:12 AM [facility] REPOSITORY TYPE CODE TESTS RESULT OUT OF REFERENCE UNITS RANGE LAB L501.080 70-110 mg/dL High BEDSIDE GLU 140 Result Comment: MANAGEMENT OF PATIENT CARE PER NURSING PROTOCOL Performed By: #### L501.080 #### [facility] Point of Care [address] [place] [address] BEDSIDE GLUCOSE Collected: 03/03/2018 Status: F Source: JEFRY 6:39 AM [facility] REPOSITORY TYPE CODE TESTS RESULT OUT OF REFERENCE UNITS RANGE LAB L501.080 70-110 mg/dL High BEDSIDE GLU 198 Result Comment: MANAGEMENT OF PATIENT CARE PER NURSING PROTOCOL Performed By: #### L501.080 #### [facility] Point of Care [address] [place] [address] PROTHROMBIN TIME W/INR Collected: 03/03/2018 Status: F Source: JEFRY 4:05 AM [facility] REPOSITORY TYPE CODE TESTS RESULT OUT OF RANGE REFERENCE UNITS LAB L300.4150 11.7-14.9 SECONDS High PROTIME 16.9 LAB L300.4200 Normal INR 1.4 Performed By: #### L300.3900 #### [facility] [address] [place], [address] BEDSIDE GLUCOSE Collected: 03/02/2018 Status: F Source: JEFRY 8:06 PM [facility] REPOSITORY TYPE CODE TESTS RESULT OUT OF REFERENCE UNITS RANGE LAB L501.080 70-110 mg/dL High BEDSIDE GLU 264 Result Comment: MANAGEMENT OF PATIENT CARE PER NURSING PROTOCOL Performed By: #### L501.080 #### [facility] Point of Care [address] [place] [address] BEDSIDE GLUCOSE Collected: 03/02/2018 Status: F Source: JEFRY 4:49 PM [facility] REPOSITORY TYPE CODE TESTS RESULT OUT OF RANGE REFERENCE UNITS LAB L501.080 70-110 mg/dL Normal BEDSIDE GLU 104 Result Comment: MANAGEMENT OF PATIENT CARE PER NURSING PROTOCOL Performed By: #### L501.080 #### [facility] Point of Care [address] [place] [address] BEDSIDE GLUCOSE Collected: 03/02/2018 Status: F Source: JEFRY 11:54 AM [facility] REPOSITORY TYPE CODE TESTS RESULT OUT OF REFERENCE UNITS RANGE LAB L501.080 70-110 mg/dL High BEDSIDE GLU 124 Result Comment: MANAGEMENT OF PATIENT CARE PER NURSING PROTOCOL Performed By: #### L501.080 #### [facility] Point of Care [address] [place] [address] BEDSIDE GLUCOSE Collected: 03/02/2018 Status: F Source: JEFRY 6:38 AM [facility] REPOSITORY TYPE CODE TESTS RESULT OUT OF REFERENCE UNITS RANGE LAB L501.080 70-110 mg/dL High BEDSIDE GLU 190 Result Comment: MANAGEMENT OF PATIENT CARE PER NURSING PROTOCOL Performed By: #### L501.080 #### [facility] Point of Care [address] [place] [address] PROTHROMBIN TIME W/INR Collected: 03/02/2018 Status: F Source: JEFRY 5:10 AM [facility] REPOSITORY Order Comment: SPECIMEN OBTAINED FROM LINE DRAW TYPE CODE TESTS RESULT OUT OF RANGE REFERENCE UNITS LAB L300.4150 11.7-14.9 SECONDS High PROTIME 16.9 LAB L300.4200 Normal INR 1.4 Performed By: #### L300.3900 #### [facility] [address] [place], [address] BEDSIDE GLUCOSE Collected: 03/01/2018 Status: F Source: JEFRY 8:37 PM [facility] REPOSITORY TYPE CODE TESTS RESULT OUT OF REFERENCE UNITS RANGE LAB L501.080 70-110 mg/dL High BEDSIDE GLU 270 Result Comment: MANAGEMENT OF PATIENT CARE PER NURSING PROTOCOL Performed By: #### L501.080 #### [facility] Point of Care [address] [place] [address] BEDSIDE GLUCOSE Collected: 03/01/2018 Status: F Source: JEFRY 4:45 PM [facility] REPOSITORY TYPE CODE TESTS RESULT OUT OF REFERENCE UNITS RANGE LAB L501.080 70-110 mg/dL High BEDSIDE GLU 165 Result Comment: Dr Orders Followed MANAGEMENT OF PATIENT CARE PER NURSING PROTOCOL Performed By: #### L501.080 #### [facility] Point of Care [address] [place] [address] BEDSIDE GLUCOSE Collected: 03/01/2018 Status: F Source: JEFRY 11:06 AM [facility] REPOSITORY TYPE CODE TESTS RESULT OUT OF REFERENCE UNITS RANGE LAB L501.080 70-110 mg/dL High BEDSIDE GLU 225 Result Comment: Dr Orders Followed MANAGEMENT OF PATIENT CARE PER NURSING PROTOCOL Performed By: #### L501.080 #### [facility] Point of Care [address] [place] [address] BEDSIDE GLUCOSE Collected: 03/01/2018 Status: F Source: JEFRY 6:25 AM [facility] REPOSITORY TYPE CODE TESTS RESULT OUT OF REFERENCE UNITS RANGE LAB L501.080 70-110 mg/dL High BEDSIDE GLU 238 Result Comment: MANAGEMENT OF PATIENT CARE PER NURSING PROTOCOL Performed By: #### L501.080 #### [facility] Point of Care [address] [place] [address] PROTHROMBIN TIME W/INR Collected: 03/01/2018 Status: F Source: JEFRY 5:12 AM [facility] REPOSITORY Order Comment: SPECIMEN OBTAINED FROM LINE DRAW TYPE CODE TESTS RESULT OUT OF RANGE REFERENCE UNITS LAB L300.4150 11.7-14.9 SECONDS High PROTIME 17.1 LAB L300.4200 Normal INR 1.4 Performed By: #### L300.3900 #### [facility] [address] [facility] [address] BEDSIDE GLUCOSE Collected: 02/28/2018 Status: F Source: JEFRY 8:35 PM [facility] REPOSITORY TYPE CODE TESTS RESULT OUT OF REFERENCE UNITS RANGE LAB L501.080 70-110 mg/dL High BEDSIDE GLU 208 Result Comment: MANAGEMENT OF PATIENT CARE PER NURSING PROTOCOL Performed By: #### L501.080 #### [facility] Point of Care [address] [place] [address] BEDSIDE GLUCOSE Collected: 02/28/2018 Status: F Source: JEFRY 4:46 PM [facility] REPOSITORY TYPE CODE TESTS RESULT OUT OF REFERENCE UNITS RANGE LAB L501.080 70-110 mg/dL High BEDSIDE GLU 194 Result Comment: MANAGEMENT OF PATIENT CARE PER NURSING PROTOCOL Performed By: #### L501.080 #### [facility] Point of Care [address] [place] [address] BEDSIDE GLUCOSE Collected: 02/28/2018 Status: F Source: JEFRY 11:02 AM [facility] REPOSITORY TYPE CODE TESTS RESULT OUT OF REFERENCE UNITS RANGE LAB L501.080 70-110 mg/dL High BEDSIDE GLU 189 Result Comment: MANAGEMENT OF PATIENT CARE PER NURSING PROTOCOL Performed By: #### L501.080 #### [facility] Point of Care [address] [place] [address] BEDSIDE GLUCOSE Collected: 02/28/2018 Status: F Source: JEFRY 6:39 AM [facility] REPOSITORY TYPE CODE TESTS RESULT OUT OF REFERENCE UNITS RANGE LAB L501.080 70-110 mg/dL High BEDSIDE GLU 192 Result Comment: MANAGEMENT OF PATIENT CARE PER NURSING PROTOCOL Performed By: #### L501.080 #### [facility] Point of Care [address] [place] [address] PROTHROMBIN TIME W/INR Collected: 02/28/2018 Status: F Source: JEFRY 5:25 AM [facility] REPOSITORY Order Comment: SPECIMEN OBTAINED FROM LINE DRAW TYPE CODE TESTS RESULT OUT OF RANGE REFERENCE UNITS LAB L300.4150 11.7-14.9 SECONDS High PROTIME 16.0 LAB L300.4200 Normal INR 1.3 Performed By: #### L300.3900 #### [facility] [address] [place], [address] BEDSIDE GLUCOSE Collected: 02/27/2018 Status: F Source: JEFRY 8:55 PM [facility] REPOSITORY TYPE CODE TESTS RESULT OUT OF REFERENCE UNITS RANGE LAB L501.080 70-110 mg/dL High BEDSIDE GLU 280 Result Comment: MANAGEMENT OF PATIENT CARE PER NURSING PROTOCOL Performed By: #### L501.080 #### [facility] Point of Care [address] [place] [address] BEDSIDE GLUCOSE Collected: 02/27/2018 Status: F Source: JEFRY 4:57 PM [facility] REPOSITORY TYPE CODE TESTS RESULT OUT OF REFERENCE UNITS RANGE LAB L501.080 70-110 mg/dL High BEDSIDE GLU 149 Result Comment: MANAGEMENT OF PATIENT CARE PER NURSING PROTOCOL Performed By: #### L501.080 #### [facility] Point of Care [address] [place] [address] BEDSIDE GLUCOSE Collected: 02/27/2018 Status: F Source: JEFRY 11:51 AM [facility] REPOSITORY TYPE CODE TESTS RESULT OUT OF REFERENCE UNITS RANGE LAB L501.080 70-110 mg/dL High BEDSIDE GLU 164 Result Comment: Dr Orders Followed MANAGEMENT OF PATIENT CARE PER NURSING PROTOCOL Performed By: #### L501.080 #### [facility] Point of Care [address] [place] [address] BEDSIDE GLUCOSE Collected: 02/27/2018 Status: F Source: SNYDER 6:51 AM [facility] REPOSITORY TYPE CODE TESTS RESULT OUT OF REFERENCE UNITS RANGE LAB L501.080 70-110 mg/dL High BEDSIDE GLU 202 Result Comment: MANAGEMENT OF PATIENT CARE PER NURSING PROTOCOL Performed By: #### L501.080 #### [facility] Point of Care [address] [place] [address] PROTHROMBIN TIME W/INR Collected: 02/27/2018 Status: F Source: SNYDER 6:40 AM [facility] REPOSITORY Order Comment: SPECIMEN OBTAINED FROM LINE DRAW TYPE CODE TESTS RESULT OUT OF RANGE REFERENCE UNITS LAB L300.4150 11.7-14.9 SECONDS High PROTIME 15.3 LAB L300.4200 Normal INR 1.2 Performed By: #### L300.3900 #### [facility] [address] [place], [address] COMPREHENSIVE METABOLIC Collected: 02/27/2018 Status: F Source: JFERY PROFIL 6:40 AM [facility] REPOSITORY Order Comment: SPECIMEN OBTAINED FROM LINE DRAW Comments: itraconazole level (Fax to [phone] TYPE CODE TESTS RESULT OUT OF RANGE REFERENCE UNITS LAB L501.0100 74-106 mg/dL High GLU 197 Result Comment: Fasting Glucose result greater than or equal to 126 mg/dL suggests DIABETES MELLITUS per A.D.A. criteria. Please note revised GLUCOSE reference range effective 2017. LAB L501.1000 7-18 mg/dL Normal BUN 12 LAB L501.1100 0.55-1.02 mg/dL Low CREAT,SERUM 0.53 Result Comment: The validity of the calculated GFR AND GFRAA in patients over 70 years has not been determined. Clinical correlation is essential. LAB L501.1110 >60 mL/min Normal EST GFR 122 Result Comment: Non- GFR Calc LAB L501.1115 >60 mL/min Normal EST GFR - AA 148 Result Comment: GFR Calc LAB L501.1300 10-20 RATIO High BUN/CRE 22.7 LAB L501.1500 6.4-8.2 g/dL Low T PROT 5.7 LAB L501.1800 3.2-5.0 g/dL Low ALB 1.9 LAB L501.1950 2.2-4.2 g/dL Normal GLOB 3.8 LAB L501.2000 0.9-2.4 RATIO Low A/G 0.5 LAB L501.2200 8.5-10.1 mg/dL Low CA 8.3 LAB L501.4100 15-37 U/L Low AST 12 LAB L501.4305 45-117 U/L Normal ALK P 74 LAB L501.4405 13-56 U/L Low ALT < 6 LAB L501.4600 0.20-1.00 mg/dL T Normal BILI 0.60 LAB L501.5300 136-145 mmol/L NA Normal 141 LAB L501.5600 3.5-5.1 mmol/L K Normal 3.9 LAB L501.5900 98-107 mmol/L CL Normal 101 LAB L501.6100 21.0-32.0 mmol/L High CO2 35.0 LAB L501.6200 5-15 Normal GAP 5 Performed By: #### L500.4050 #### [facility] [address] [place], [place], [address] CBC W/DIFF, AUTOMATED Collected: 02/27/2018 Status: F Source: SNYDER 6:40 AM [facility] REPOSITORY Order Comment: Comments: send to Dr. Cordero @ [phone] (ID) SPECIMEN OBTAINED FROM LINE DRAW TYPE CODE TESTS RESULT OUT OF RANGE REFERENCE UNITS LAB L100.1000 4.4-11.0 K/mm3 Normal WBC 7.3 LAB L100.1200 4.2-5.4 M/mm3 Low RBC 3.18 LAB L100.1300 12.0-15.0 g/dl Low HGB 8.7 LAB L100.1400 37-47 % Low HCT 28.3 LAB L100.1500 81-99 fL Normal MCV 89.0 LAB L100.1600 27.0-32.0 pg Normal MCH 27.4 LAB L100.1700 32-36 g/gl Low MCHC 30.7 LAB L100.1810 11.6-14.6 % High RDW CV 17.9 LAB L100.1820 35.1-43.9 fl High RDW SD 52.8 LAB L100.1900 150-450 K/mm3 Normal PLT 423 LAB L100.2000 6.2-12.0 fl Normal MPV 8.3 LAB L100.2100 47-70 % High NEUT% 75.9 LAB L100.2200 19-41 % Low LY% 9.4 LAB L100.2300 0-10 % High MONO% 13.9 LAB L100.2400 0-5 % Normal EO% 0.4 LAB L100.2500 0-1 % Normal BASO% 0.1 LAB L100.2550 0.0-0.9 % Normal IM GRAN % 0.300 Result Comment: IG% - Immature Granulocytes (promyelocytes, myelocytes and metamyelocytes) > 1% indicates that a LEFT SHIFT is Present. LAB L100.2620 2.0-7.7 X10 3/uL Normal Absolute Neut 5.5 LAB L100.2720 0.83-4.51 X10 3/ul Low Absolute Lymph 0.68 Performed By: #### L100.0100 #### [facility] [address] [place], [place], [address] BEDSIDE GLUCOSE Collected: 02/26/2018 Status: F Source: JEFRY 10:20 PM [facility] REPOSITORY TYPE CODE TESTS RESULT OUT OF REFERENCE UNITS RANGE LAB L501.080 70-110 mg/dL High BEDSIDE GLU 284 Result Comment: MANAGEMENT OF PATIENT CARE PER NURSING PROTOCOL Performed By: #### L501.080 #### [facility] [address] [place], [place] [address] BEDSIDE GLUCOSE Collected: 02/26/2018 Status: F Source: SNYDER 5:29 PM [facility] REPOSITORY Order Comment: RESULT(S) PREVIOUSLY REPORTED ON MANUAL REQUISITION DURING DOWNTIME. TYPE CODE TESTS RESULT OUT OF REFERENCE UNITS RANGE LAB L501.080 70-110 mg/dL High BEDSIDE GLU 161 Result Comment: MANAGEMENT OF PATIENT CARE PER NURSING PROTOCOL Performed By: #### L501.080 #### [facility] Point [facility] Care [address] [place], [place] [address] BEDSIDE GLUCOSE Collected: 02/26/2018 Status: F Source: SNYDER 11:24 AM [facility] REPOSITORY TYPE CODE TESTS RESULT OUT OF REFERENCE UNITS RANGE LAB L501.080 70-110 mg/dL High BEDSIDE GLU 155 Result Comment: Dr Solis Followed MANAGEMENT OF PATIENT CARE PER NURSING PROTOCOL Performed By: #### L501.080 #### [facility] Point [facility] [address] [place] [address] TYPE AND SCREEN Collected: 02/26/2018 Status: P Source: SNYDER 9:15 AM [facility] REPOSITORY Order Comment: CMV NEG? N PT IS A NURSE DRAW. Number of units to transfuse: 2 Comments: CABG x5 Is pt's Hgb is </= to 7.0 mg/dl or Hct </= 21%? Y Reason for Ordering Blood: Chronic Are the blood/blood products to be transfused? Y Is the patient having/had surgery? Y Give When? When Ready Irradiated? N Leukodepleted? Y Surgery Date: 02/15/18 Type of Surgery: OTHER TYPE CODE TESTS RESULT OUT OF RANGE REFERENCE UNITS LAB B10.0800 A Normal BLOOD TYPE GEL POSITIVE LAB B100.4000 Normal Antibody NEGATIVE Screen Performed By: #### B101.7450 #### [facility] [address] [place], [place], [address] TYPE AND SCREEN Collected: 02/26/2018 Status: F Source: SNYDER 9:15 AM [facility] REPOSITORY Order Comment: CMV NEG? N PT IS A NURSE DRAW. Number of units to transfuse: 2 Comments: CABG x5 Is pt's Hgb is </= to 7.0 mg/dl or Hct </= 21%? Y Reason for Ordering Blood: Chronic Are the blood/blood products to be transfused? Y Is the patient having/had surgery? Y CMV NEG?* N Give When? When Ready Irradiated? N Leukodepleted? Y Reason for Type AND Screen/Red Cells: ANEMIA Surgery Date: 02/15/18 Other - use comments: . Type of Surgery: OTHER TYPE CODE TESTS RESULT OUT OF RANGE REFERENCE UNITS LAB B10.0800 A Normal BLOOD TYPE GEL POSITIVE LAB B100.4000 Normal Antibody NEGATIVE Screen Performed By: #### B101.7450 #### [facility] [address] [place], [address] rc Collected: 02/26/2018 Status: F Source: SNYDER 9:15 AM [facility] REPOSITORY TYPE CODE TESTS RESULT OUT OF REFERENCE UNITS RANGE LAB U100.0000 [id number] TRANSFUSED PRODUCT: T AND S with Crossmatch, Red Cells COUNT: 2 Performed By: #### U100.0000 #### [facility] - refer to report for specific site CHEST 1 VIEW Observed: 02/26/2018 Status: F Source: SNYDER (PORTABLE) 8:28 AM [facility] REPOSITORY [facility] Imaging Services [address] [place] [address] Chest 1 View (Portable) MR#: [id number] Acct: [id number] Name: VENITA SMITH Rep #: [id number] : 1950 F 67 From: Karishma Hidalgo MD PCP: Baron Pike MD, Chi Status: ADM IN Study: Chest 1 View (Portable) Date of Exam: 02/26/18 Exam# [id number] Ordering Dr: Baron Pike MD STUDY: X-RAY CHEST REASON FOR EXAM: Female, 67 years old. CONGESTION AND CRACKLING SOUNDS. HX OF RECENT BYPASS SURGERY ABOUT 1 1/2 WEEKS AGO. HX OF RECENT HEART ATTACK. TECHNIQUE: Single AP portable view of the chest. COMPARISON: February 05, 2018 FINDINGS: There is a new right PICC line in place. There are new bilateral pleural effusions, small. There is improved aeration of the lungs with residual mildly prominent interstitial markings in the right upper lobe. There is bibasilar atelectasis. Normal size heart. Normal mediastinum and cristofer. Normal visualized pulmonary arteries. There is atherosclerotic calcification of the aortic arch with tortuosity. Normal visualized thoracic spine. Normal visualized ribs, clavicles, and shoulders. There is no demonstrated abnormality of the visualized soft tissue structures of the upper abdomen. RAD/Chest 1 View (Portable) IMPRESSION: There are new bilateral pleural effusions, small. There is improved aeration of the lungs with residual mildly prominent interstitial markings in the right upper lobe. There is bibasilar atelectasis. Electronically Signed: Karishma Hidalgo MD at 9:07 EDT , Service support , CC: Baron Pike MD Broadband Installer: Signed BEDSIDE GLUCOSE Collected: 02/26/2018 Status: F Source: JEFRY 6:44 AM [facility] REPOSITORY TYPE CODE TESTS RESULT OUT OF REFERENCE UNITS RANGE LAB L501.080 70-110 mg/dL High BEDSIDE GLU 171 Result Comment: MANAGEMENT OF PATIENT CARE PER NURSING PROTOCOL Performed By: #### L501.080 #### [facility] Point [place] [address] CBC W/DIFF, AUTOMATED Collected: 02/26/2018 Status: F Source: SNYDER 5:00 AM [facility] REPOSITORY Order Comment: SPECIMEN OBTAINED FROM LINE DRAW TYPE CODE TESTS RESULT OUT OF RANGE REFERENCE UNITS LAB L100.1000 4.4-11.0 K/mm3 Normal WBC 7.0 LAB L100.1200 4.2-5.4 M/mm3 Low RBC 2.51 LAB L100.1300 12.0-15.0 g/dl Low HGB 6.7 LAB L100.1400 37-47 % Low HCT 22.7 LAB L100.1500 81-99 fL Normal MCV 90.4 LAB L100.1600 27.0-32.0 pg Low MCH 26.7 LAB L100.1700 32-36 g/gl Low MCHC 29.5 LAB L100.1810 11.6-14.6 % High RDW CV 18.0 LAB L100.1820 35.1-43.9 fl High RDW SD 53.5 LAB L100.1900 150-450 K/mm3 High PLT 460 LAB L100.2000 6.2-12.0 fl Normal MPV 7.7 LAB L100.2100 47-70 % High NEUT% 73.9 LAB L100.2200 19-41 % Low LY% 10.3 LAB L100.2300 0-10 % High MONO% 14.6 LAB L100.2400 0-5 % Normal EO% 0.7 LAB L100.2500 0-1 % Normal BASO% 0.1 LAB L100.2550 0.0-0.9 % Normal IM GRAN % 0.400 Result Comment: IG% - Immature Granulocytes (promyelocytes, myelocytes and metamyelocytes) > 1% indicates that a LEFT SHIFT is Present. LAB L100.2620 2.0-7.7 X10 3/uL Normal Absolute Neut 5.2 LAB L100.2720 0.83-4.51 X10 3/ul Low Absolute Lymph 0.72 Performed By: #### L100.0100 #### [facility] [address] [place], [place], [address] PROTHROMBIN TIME W/INR Collected: 02/26/2018 Status: F Source: SNYDER 5:00 AM [facility] REPOSITORY Order Comment: SPECIMEN OBTAINED FROM LINE DRAW TYPE CODE TESTS RESULT OUT OF RANGE REFERENCE UNITS LAB L300.4150 11.7-14.9 SECONDS High PROTIME 16.6 LAB L300.4200 Normal INR 1.3 Performed By: #### L300.3900 #### [facility] [address] [place], [address] BASIC METABOLIC Collected: 02/26/2018 Status: F Source: SNYDER PROFILE (BMP) 5:00 AM [facility] REPOSITORY Order Comment: SPECIMEN OBTAINED FROM LINE DRAW TYPE CODE TESTS RESULT OUT OF RANGE REFERENCE UNITS LAB L501.0100 74-106 mg/dL High GLU 172 Result Comment: Fasting Glucose result greater than or equal to 126 mg/dL suggests DIABETES MELLITUS per A.D.A. criteria. Please note revised GLUCOSE reference range effective 2017. LAB L501.1000 7-18 mg/dL Normal BUN 14 LAB L501.1100 0.55-1.02 mg/dL Low CREAT,SERUM 0.53 Result Comment: The validity of the calculated GFR AND GFRAA in patients over 70 years has not been determined. Clinical correlation is essential. LAB L501.1110 >60 mL/min Normal EST GFR 122 Result Comment: Non- GFR Calc LAB L501.1115 >60 mL/min Normal EST GFR - AA 148 Result Comment: GFR Calc LAB L501.1300 10-20 RATIO High BUN/CRE 26.5 LAB L501.2200 8.5-10.1 mg/dL Low CA 8.0 LAB L501.5300 136-145 mmol/L NA Normal 141 LAB L501.5600 3.5-5.1 mmol/L K Normal 3.7 LAB L501.5900 98-107 mmol/L CL Normal 101 LAB L501.6100 21.0-32.0 mmol/L Normal CO2 32.0 LAB L501.6200 5-15 Normal GAP 8 Performed By: #### L500.2500 #### [facility] [address] [place], [address] BEDSIDE GLUCOSE Collected: 02/25/2018 Status: F Source: SNYDER 9:00 PM [facility] REPOSITORY TYPE CODE TESTS RESULT OUT OF REFERENCE UNITS RANGE LAB L501.080 70-110 mg/dL High BEDSIDE GLU 303 Result Comment: MANAGEMENT OF PATIENT CARE PER NURSING PROTOCOL Performed By: #### L501.080 #### [facility] Point [facility] [address] [place] [address] HISTORY AND PHYSICAL Observed: 02/25/2018 Status: F Source: SNYDER EXAM 7:22 PM [facility] REPOSITORY [facility] Medical Records Department [address] [place] [address] History and Physical 02/25/18 1848 MR#: [id number] Acct: [id number] Name: VENITA SMITH Rep #: [id number] : 1950 67 From: Baron Pike MD PCP: Baron Pike MD, Chi Status: ADM IN Y Location: [place] [address] Problem List (1) Osteomyelitis of left foot Status: Acute (2) Coronary artery disease Status: Acute (3) Diabetes mellitus Status: Chronic (4) Obesity Status: Chronic (5) Neuropathic pain Status: Chronic (6) ELDER (obstructive sleep apnea) Status: Chronic (7) COPD (chronic obstructive pulmonary disease) Status: Chronic Qualifiers: (8) Allergic rhinitis Status: Chronic Qualifiers: (9) Asthma Status: Chronic Qualifiers: (10) Osteoarthritis Status: Chronic Qualifiers: (11) Hyperlipidemia Status: Chronic Qualifiers: (12) Hypertension Status: Chronic Qualifiers: History of Present Illness Date of Admission: 02/25/18 Chief Complaint: Here for rehabilitation, strengthening, wound care, intravenous antibiotics, prior to discharge home. The patient is a 67 year old Female with below past medical history with followin02/06/2018 [facility] showed severe triple vessel disease, peak troponin 8.34. Transferred to [facility] for consideration of bypass surgery. ERNESTO showed mild to moderate mitral regurgitation. Left great toe repeat incision and drainage, bone cultures sent. 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 02/15/2018 Dr. James performed CABG x 3. Post-operative course complicated by anemia requiring 5 units PRBC transfusion. Left upper extremity doppler ultrasound showed left upper extremity DVT treated with coumadin. ?Rectovaginal fistula on CT scan of abdomen/pelvis, recommended colonoscopy as outpatient. 02/25/2018 Admit to TCU for rehabilitation, strengthening, wound care, intravenous antibiotics, prior to discharge home alone. Past Medical History Past Medical History (Chronic Problems): Chronic Problems (Last Reviewed 11/22/17 @ 13:19 by Sherie Alves) Diabetes mellitus (Chronic) Obesity (Chronic) Neuropathic pain (Chronic) Obesity (BMI 30.0-34.9) (Chronic) HERNANDEZ (dyspnea on exertion) (Chronic) ELDER (obstructive sleep apnea) (Chronic) COPD (chronic obstructive pulmonary disease) (Chronic) Neuropathic pain (Chronic) Allergic rhinitis (Chronic) Asthma (Chronic) Mild asthma (Chronic) Osteoarthritis (Chronic) Hyperlipidemia (Chronic) Hypertension (Chronic) Type 2 diabetes mellitus (Chronic) Medical History: Medical History (Last Reviewed 11/22/17 @ 13:19 by Sherie Alves) Suspected sleep apnea (Acute) G47.30 Fall (Acute) W19.XXXA COPD (chronic obstructive pulmonary disease) (Chronic) J44.9 Neuropathic pain (Chronic) Allergic rhinitis (Chronic) J30.9 Asthma (Chronic) J45.909 Community acquired pneumonia (Acute) J18.9 Rhabdomyolysis (Acute) M62.82 Acute kidney injury (Acute) N17.9 Mild asthma (Chronic) J45.998 Osteoarthritis (Chronic) M19.90 Hyperlipidemia (Chronic) E78.5 Hypertension (Chronic) I10 Type 2 diabetes mellitus (Chronic) E11.9 Abnormal echocardiogram R93.1 Cardiomegaly I51.7 GERD (gastroesophageal reflux disease) K21.9 Hypertriglyceridemia E78.1 Hypoxia R09.02 ELDER (obstructive sleep apnea) G47.33 Tobacco use Z72.0 Vitamin D deficiency E55.9 Allergies No Known Allergies Allergy (Verified 02/04/18 14:51) Home Medications: Ambulatory Orders Medication Instructions Recorded Atorvastatin Calcium [Lipitor] 80 mg PO QHS 01/18/17 Surgical History: Surgical History (Last Reviewed 11/22/17 @ 13:19 by Sherie Alves) H/O adenoidectomy Z90.89 History of appendectomy Z90.49 History of carpal tunnel release Z98.890 History of hysterectomy Z90.710 History of tonsillectomy Z90.89 Surgical History: appendectomy, coronary bypass surgery - X 5., hysterectomy, tonsillectomy, - - Bilateral tubal ligation. 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 Sibling Family History: Family History (Last Reviewed 11/22/17 @ 13:19 by Sherie Alves) Mother Colon cancer History Items: Diabetes, Heart Disease, - - ELDER Review of Systems Constitutional: Denies: Chills, Fever, Weight Change HEENT: Denies: Head Aches, Sinus Congestion, Sinus Drainage Cardiovascular: Denies: Chest Pain, Palpitations Respiratory: Denies: Cough, Shortness of breath at rest, Sputum production Gastrointestinal: Denies: Abdominal Pain, Nausea, Vomiting Genitourinary: Denies: Dysuria Musculoskeletal: Denies: Joint Pain, Joint Tenderness Skin: Denies: Rash, Wounds Neurological: Denies: Numbness, Tingling, Focal weakness Psychiatric: Denies: Anxiety, Depression, Homicidal Ideations, Suicidal Ideations Hematologic/ Lymphatic: Denies: Easy Bruising, Easy Bleeding VTE Information - Inpt Only VTE Present on Admission: Yes VTE Mechan Device Prophylaxis: Knee High JAMIN Hose VTE Pharm Prophylaxis ordered?: No Reason prophylaxis not ordered:: Treatment Not Indicated Patient Problems: Active and Suspected Problems (Last Reviewed 11/22/17 @ 13:19 by Sherie Alves) Osteomyelitis of left foot (Acute) Coronary artery disease (Acute) - Physical Exam General: Alert, Oriented x3, Cooperative HEENT: Atraumatic, PERRLA, EOMI, Normocephalic Neck: Supple, No JVD, Negative Carotid Bruits Lungs: Clear to auscultation, Normal air movement Cardiovascular: Regular rate, No murmurs Abdomen: Bowel Sounds Present, Soft, Non Tender Extremities: No edema, Capillary Refill Less than 3 Seconds Skin: Ulcer/ Wound - Per Wound Team., Skin Tear - per Wound Team., Incision - Per Wound Team. Musculoskeletal: No Tenderness to Palpation of Joints or Extremities Neurological: Cranial nerves II-XII grossly intact Psych/Mental Status: Normal Affect, Appropriate Vital Signs Temp Pulse Resp BP Pulse Ox 98.3 F 81 18 154/51 H 96 02/25/18 18:20 02/25/18 18:20 02/25/18 18:20 02/25/18 18:20 02/25/18 18:20 Oxygen Flow Rate (L/min) 2 Oxygen Delivery Method Nasal Cannula Weight: 80.739 kg Body Mass Index (BMI) 31.5 POC Glucose POC Glucose 194 H Assessment/Plan All Active Problems (Last Reviewed 11/22/17 @ 13:19 by Sherie Alves) Osteomyelitis of left foot (Acute) Coronary artery disease (Acute) Pain in right toe(s) (Acute) Cellulitis of right foot (Acute) Abscess of toe of right foot (Acute) Type 2 diabetes mellitus (Acute) Infectious arthritis (Acute) Hypoxia (Acute) Suspected sleep apnea (Acute) Fall (Acute) Community acquired pneumonia (Acute) Rhabdomyolysis (Acute) Acute kidney injury (Acute) 67 year old female with below past medical history hospitalized for CABG x 3, complicated by post-operative anemia, left foot osteomyelitis, admitted to TCU with debility, here for rehabilitation, strengthening, prior to discharge home alone. * Debility - PT/OT. * Pain - Tylenol 1000MG Q8H PRN mild pain, Oxycodone 5MG Q6H PRN severe pain, Lidoderm 1 patch daily to right lower back. * Bowel - Miralax 17GM daily, Senna/colace 2 tablets BID, Dulcolax 10MG HI daily PRN. * Pneumonia vaccination - Administer Prevnar 13 and/or Pneumovax 23 as necessary. * DVT prophylaxis - Not necessary, already on warfarin. * Vitamin C deficiency - Vitamin C 500MG BID. * Coronary Artery Disease s/p CABG x 5 - Coreg 6.25MG BID, Lisinopril 5MG daily, Aspirin 81MG daily, Plavix 75MG daily. * Left foot osteomyelitis - Cefazolin 2GM IV Q8H, Voriconazole 200MG Q12H, ID following. * Vitamin B12 deficiency - B12 1000MCG daily. * Iron deficiency anemia - Ferrex 150MG twice daily. * COPD - Advair 250/50MG 1 puff BID, Duoneb 3ML TID. * Folate deficiency - Folic Acid 1MG daily. * Edema - Lasix 40MG daily. * Neuropathic pain - Gabapentin 600MG TID. * Diabetes Mellitus II - Glimepiride 8MG daily, Levemir 20 units QHS, Humalog 22, 18, 18. * Allergic Rhinitis - Loratadine 10MG daily. * Insomnia - Melatonin 3MG QHS. * Recurrent UTI - Methenamine 1GM QHS. * Tinea corporis - Nystatin powder BID groin. * GERD - Pantoprazole 40MG daily. * LUE DVT - Warfarin 2.5MG daily, follow INR. 02/25/181921 <Electronically signed by Baron Pike MD> Date Baron Pike MD Cosigner Signature: Date (if applicable) CC: Baron Pike MD Signed BEDSIDE GLUCOSE Collected: 02/25/2018 Status: F Source: SNYDER 5:32 PM [facility] REPOSITORY TYPE CODE TESTS RESULT OUT OF REFERENCE UNITS RANGE LAB L501.080 70-110 mg/dL High BEDSIDE GLU 194 Result Comment: MANAGEMENT OF PATIENT CARE PER NURSING PROTOCOL Performed By: #### L501.080 #### [facility] Point of Care [address] [place], [place] [address] GLUCOSE METER Collected: 02/25/2018 Status: F Source: [facility] 11:26 AM [facility] REPOSITORY TYPE CODE TESTS RESULT OUT OF REFERENCE UNITS RANGE LAB GLUBL(LOINC 70-99 mg/dL ) High Glucose Meter 266 Performed By: #### GLMET #### [place] [address] GLUCOSE METER Collected: 02/25/2018 Status: F Source: [facility] 7:24 AM [facility] REPOSITORY TYPE CODE TESTS RESULT OUT OF REFERENCE UNITS RANGE LAB GLUBL(LOINC 70-99 mg/dL ) High Glucose Meter 217 Performed By: #### GLMET #### [place] [address] PROTIME Collected: 02/25/2018 Status: F Source: [facility] 4:01 AM [facility] REPOSITORY TYPE CODE TESTS RESULT OUT OF REFERENCE UNITS RANGE LAB PTI(LOINC) 9.3-11.9 sec Prothrombin Time 10.9 LAB INR(LOINC) INR 1.03 Result Comment: Standard Therapy 2.0-3.0 High Dose 2.5-3.5 Performed By: #### PT #### [facility] [address] [place] [address] GLUCOSE METER Collected: 02/24/2018 Status: F Source: [facility] 8:48 PM [facility] REPOSITORY TYPE CODE TESTS RESULT OUT OF REFERENCE UNITS RANGE LAB GLUBL(LOINC 70-99 mg/dL ) High Glucose Meter 218 Performed By: #### GLMET #### [place] [address] GLUCOSE METER Collected: 02/24/2018 Status: F Source: [facility] 4:19 PM [facility] REPOSITORY TYPE CODE TESTS RESULT OUT OF REFERENCE UNITS RANGE LAB GLUBL(LOINC 70-99 mg/dL ) High Glucose Meter 223 Performed By: #### GLMET #### [facility] [address] [place], [place] [address] GLUCOSE METER Collected: 02/24/2018 Status: F Source: [facility] 11:54 AM [facility] REPOSITORY TYPE CODE TESTS RESULT OUT OF REFERENCE UNITS RANGE LAB GLUBL(LOINC 70-99 mg/dL ) High Glucose Meter 276 Result Comment: RN NOTIFIED Performed By: #### GLMET #### [facility] [address] [place], [place] [address] CHEST 2 VIEWS Observed: 02/24/2018 Status: F Source: [facility] 10:46 AM [facility] REPOSITORY Performed at [facility] APPROVED BY: Iglesia Jiménez MD EXAMINATION: CHEST RADIOGRAPH (2 VIEW FRONTAL & LATERAL) Indication: Atherosclerotic heart disease; bypass M: [id number]_3 Comparison: 02/22/2018 RESULT: Lines, tubes, and devices: Right-sided PICC line is unchanged. Lungs and pleura: There are small bilateral pleural effusions with adjacent atelectasis and/or pneumonia. No significant change. No pneumothorax is seen. Cardiomediastinal silhouette: Normal cardiomediastinal silhouette. Other: Bony thorax is unremarkable for the patient's age. IMPRESSION: Small bilateral pleural effusions with adjacent atelectasis and/or pneumonia. No significant change. HEMOGRAM/DIFF Collected: 02/24/2018 Status: F Source: [facility] 8:40 AM [facility] REPOSITORY TYPE CODE TESTS RESULT OUT OF REFERENCE UNITS RANGE LAB WBC(LOINC) 3.98-10.04 thou/cmm WBC 9.77 LAB RBC(LOINC) 3.93-5.22 mil/cmm Low RBC 2.84 LAB HGB(LOINC) 11.2-15.7 g/dL Low Hgb 7.6 LAB HCT(LOINC) 34.1-44.9 % Low Hct 25.3 LAB MCV(LOINC) 79.4-94.8 fl MCV 89.1 LAB MCH(LOINC) 25.6-32.2 pg MCH 26.8 LAB MCHC(LOINC 31.6-34.8 % ) Low MCHC 30.0 LAB RDW(LOINC) 11.7-14.4 % RDW High 17.9 LAB RDWSD(LOIN 36.4-46.3 fl C) RDW SD High 55.8 LAB PLT(LOINC) 182-369 thou/cmm Platelet High 400 LAB MPV(LOINC) 9.4-12.3 fl Low MPV 8.5 LAB SEG(LOINC) % Seg Neutrophil 77.7 LAB IGRE(LOINC % ) Immature Grans 0.90 LAB LYMPH(LOIN % C) Lymphocyte 9.3 LAB MNO(LOINC) % Monocyte 11.3 LAB EOSIN(LOIN % C) Eosinophil 0.6 LAB BASO(LOINC % ) Basophil 0.2 LAB SEGN(LOINC 1.56-6.13 thou/cmm ) Abs. High Neut (ANC) 7.59 LAB IGAB(LOINC 0.00-0.05 thou/cmm ) Abs High Immature Grans 0.09 LAB LYMN(LOINC 1.18-3.74 thou/cmm ) Low Abs. Lymph 0.91 LAB MONON(LOIN 0.27-0.70 thou/cmm C) Abs. High Floyd 1.10 LAB EOSN(LOINC 0.00-0.31 thou/cmm ) Abs. Eosin 0.06 LAB BASON(LOIN 0.01-0.08 thou/cmm C) Abs. Baso 0.02 Performed By: #### CBCD1 #### [place] [address] PROTIME Collected: 02/24/2018 Status: F Source: [facility] 8:40 AM [facility] REPOSITORY TYPE CODE TESTS RESULT OUT OF REFERENCE UNITS RANGE LAB PTI(LOINC) 9.3-11.9 sec Prothrombin Time 10.3 LAB INR(LOINC) INR 0.97 Result Comment: Standard Therapy 2.0-3.0 High Dose 2.5-3.5 Performed By: #### PT #### [place] [address] BASIC PANEL Collected: 02/24/2018 Status: F Source: [facility] 8:40 AM [facility] REPOSITORY TYPE CODE TESTS RESULT OUT OF REFERENCE UNITS RANGE LAB NA(LOINC) 136-145 mEq/L Low Sodium Blood 135 LAB K(LOINC) 3.5-5.1 mEq/L Potassium Blood 4.1 LAB CL(LOINC) 98-107 mEq/L Chloride Blood 100 LAB CO2(LOINC) 21-32 mEq/L CO2 Blood 30 LAB GLU(LOINC) 70-99 mg/dL Glucose High Blood 178 LAB BUN(LOINC) 7-18 mg/dL BUN Blood 16 LAB CREA(LOINC 0.51-0.95 mg/dL ) Creatinine Blood 0.51 LAB CA(LOINC) 8.5-10.1 mg/dL Calcium Blood 8.5 LAB ANGAP(LOIN 8-16 C) Anion Gap 9 Performed By: #### P8 #### [facility] [address] [place] [address] MDRD GFR Collected: 02/24/2018 Status: F Source: [facility] 8:40 AM [facility] REPOSITORY TYPE CODE TESTS RESULT OUT OF RANGE REFERENCE UNITS LAB GFRFN(LOINC >60mL/min/1.73m ) 2 eGFR >60 Result Comment: If the patient is , multiply the result by 1.210. Performed By: #### GFR #### [place] [address] GLUCOSE METER Collected: 02/24/2018 Status: F Source: [facility] 7:47 AM [facility] REPOSITORY TYPE CODE TESTS RESULT OUT OF REFERENCE UNITS RANGE LAB GLUBL(LOINC 70-99 mg/dL ) High Glucose Meter 187 Result Comment: RN NOTIFIED Performed By: #### GLMET #### [place] [address] GLUCOSE METER Collected: 02/23/2018 Status: F Source: [facility] 9:16 PM [facility] REPOSITORY TYPE CODE TESTS RESULT OUT OF REFERENCE UNITS RANGE LAB GLUBL(LOINC 70-99 mg/dL ) High Glucose Meter 228 Result Comment: RN NOTIFIED Performed By: #### GLMET #### [place] [address] GLUCOSE METER Collected: 02/23/2018 Status: F Source: [facility] 4:45 PM [facility] REPOSITORY TYPE CODE TESTS RESULT OUT OF REFERENCE UNITS RANGE LAB GLUBL(LOINC 70-99 mg/dL ) High Glucose Meter 206 Performed By: #### GLMET #### [facility] [address] [place] [address] GLUCOSE METER Collected: 02/23/2018 Status: F Source: [facility] 11:52 AM [facility] REPOSITORY TYPE CODE TESTS RESULT OUT OF REFERENCE UNITS RANGE LAB GLUBL(LOINC 70-99 mg/dL ) High Glucose Meter 149 Performed By: #### GLMET #### [facility] [address] [place] [address] GLUCOSE METER Collected: 02/23/2018 Status: F Source: [facility] 7:30 AM [facility] REPOSITORY TYPE CODE TESTS RESULT OUT OF REFERENCE UNITS RANGE LAB GLUBL(LOINC 70-99 mg/dL ) High Glucose Meter 127 Performed By: #### GLMET #### [facility] [address] [address] PROTIME Collected: 02/23/2018 Status: F Source: [facility] 4:15 AM [facility]ALTH SYSTEM REPOSITORY TYPE CODE TESTS RESULT OUT OF REFERENCE UNITS RANGE LAB PTI(LOINC) 9.3-11.9 sec Prothrombin Time 10.0 LAB INR(LOINC) INR 0.92 Result Comment: Standard Therapy 2.0-3.0 High Dose 2.5-3.5 Performed By: #### PT #### [place] [address] GLUCOSE METER Collected: 02/22/2018 Status: F Source: [facility] 8:18 PM [facility]ALTH SYSTEM REPOSITORY TYPE CODE TESTS RESULT OUT OF REFERENCE UNITS RANGE LAB GLUBL(LOINC 70-99 mg/dL ) High Glucose Meter 153 Performed By: #### GLMET #### [facility] [address] [address] GLUCOSE METER Collected: 02/22/2018 Status: F Source: [facility] 4:15 PM [facility] SYSTEM REPOSITORY TYPE CODE TESTS RESULT OUT OF REFERENCE UNITS RANGE LAB GLUBL(LOINC 70-99 mg/dL ) High Glucose Meter 130 Performed By: #### GLMET #### [facility] [address] [address] PROTIME Collected: 02/22/2018 Status: F Source: [facility] 3:42 PM [facility] REPOSITORY TYPE CODE TESTS RESULT OUT OF REFERENCE UNITS RANGE LAB PTI(LOINC) 9.3-11.9 sec Prothrombin Time 9.9 LAB INR(LOINC) INR 0.92 Result Comment: Standard Therapy 2.0-3.0 High Dose 2.5-3.5 Performed By: #### PT #### [facility] [address] [address] GLUCOSE METER Collected: 02/22/2018 Status: F Source: [facility] 11:51 AM [facility] REPOSITORY TYPE CODE TESTS RESULT OUT OF REFERENCE UNITS RANGE LAB GLUBL(LOINC 70-99 mg/dL ) High Glucose Meter 109 Performed By: #### GLMET #### [facility] [address] [address] US DVT UPPER LEFT Observed: 02/22/2018 Status: F Source: [facility] 10:50 AM [facility] SYSTEM REPOSITORY Performed at [facility] APPROVED BY: Maris Dodge MD LEFT UPPER EXTREMITY DEEP VENOUS DUPLEX DOPPLER ULTRASOUND CLINICAL HISTORY: Left upper extremity pain, edema, and erythema COMPARISON: None TECHNIQUE: [place] scale ultrasound with and without compression, where accessible, color and spectral Doppler with augmentation. Images were obtained and stored in a permanent archive. RESULT: LEFT UPPER EXTREMITY: Deep veins- Internal Jugular vein: Patent and compressible, normal respiratory phasicity Subclavian vein: Patent with normal respiratory phasicity. Axillary vein: Patent and compressible, normal respiratory phasicity Brachial vein: There is occlusive thrombosis of the left brachial vein. 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 A wet reading was sent regarding these findings at the time of this report. CHEST 2 VIEWS Observed: 02/22/2018 Status: F Source: [facility] 10:18 AM [facility] SYSTEM REPOSITORY Performed at [facility] APPROVED BY: Iglesia Jiménez MD EXAMINATION: CHEST RADIOGRAPH (2 VIEW FRONTAL & LATERAL) Indication: Status post bypass surgery M: [id number] Comparison: Chest x-ray 02/18/2018 RESULT: Lines, tubes, and devices: Right-sided PICC line terminates at the cavoatrial junction. Lungs and pleura: There are small bilateral pleural effusions, slightly worsened compared to the prior. There is adjacent atelectasis or developing pneumonia. No pneumothorax. Mild pulmonary vascula r congestion/interstitial edema. Cardiomediastinal silhouette: Normal cardiomediastinal silhouette. Other: Bony thorax is unremarkable for the patient's age. IMPRESSION: Bilateral pleural effusions with adjacent atelectasis or developing pneumonia. This appears slightly worsened compared to the exam [address] PELVIS W/O Observed: 02/22/2018 Status: F Source: [facility] 9:52 AM [facility] SYSTEM REPOSITORY Performed at [facility] APPROVED BY: Elgin Dawson MD Addendum Begins * * * * * * * * ORIGINAL REPORT * * * * * * * * EXAM TITLE: CT OF THE PELVIS WITHOUT IV CONTRAST DATE: 02/22/2018 09:41 COMPARISON: None. CLINICAL INDICATION/HISTORY: Pelvic pain, possible rectovaginal fistula TECHNIQUE: 550 mL of Water-soluble rectal contrast was instilled into the rectum. CT scanning was performed from the iliac crest through the proximal thighs. Sagittal and coronal reconstructions were performed. FINDINGS: The rectum and the extreme distal portion of the sigmoid colon are opacified with contrast. More proximal portions of the sigmoid colon are not well opacified. There is diffuse thickening of the wall of the mid sigmoid colon. The administered rectal contrast did not reach this portion of the sigmoid colon. Directly adjacent to this thickened segment of sigmoi d colon there is an extraluminal gas collection along the left lateral aspect of the bladder measuring 3.3 cm x 2.3 cm suspicious for fistula/abscess. The wall of the bladder is thickened in this area. This collection may also be in continuity with the left aspect of the vaginal cuff. Findings raise suspicion for fistula/abscess arising from the mid sigmoid colon and involving the left wall of the b ladder and possibly vaginal cuff. There is no gas within the bladder. There is a small amount of gas within the vagina. There is diffuse soft tissue anasarca with more prominent edema of the left thigh. There is a mildly enlarged left groin lymph node measuring 2.4 cm x 1.6 cm. Osseous structures are unremarkable. IMPRESSION: Findings suspicious for fistula/abscess arising from the mid sigmoid colon, abutting the left lateral wall of the bladder and possibly involving the left aspect of the vaginal cuff. There is thickening of the mid sigmoid colon at the site of the suspected fistula, which may be due to diverticulitis or mass. The administered rectal contrast did not reach the level of the suspected fistula. A barium enema with water-soluble contrast could be considered to confirm the presence of a fistula. There is diffuse soft tissue anasarca with more prominent edema of the left thigh. Enlarged left inguinal lymph node measuring 2.4 cm x 1.6 cm. This is nonspecific and may be reactive. * * * * * * * * ADDENDUM #1 * * * * * * * * The following should be added to the technique: Contrast: Rectal contrast was administered CT Dose-Length Product: 946.7 mGy*cm CT Dose Reduction Employed: 3. mAs or kVp was manually adjusted based on either the patient size or age. Addendum Ends EXAM TITLE: CT OF THE PELVIS WITHOUT IV CONTRAST DATE: 02/22/2018 09:41 COMPARISON: None. CLINICAL INDICATION/HISTORY: Pelvic pain, possible rectovaginal fistula TECHNIQUE: 550 mL of Water-soluble rectal contrast was instilled into the rectum. CT scanning was performed from the iliac crest through the proximal thighs. Sagittal and coronal reconstructions were performed. FINDINGS: The rectum and the extreme distal portion of the sigmoid colon are opacified with contrast. More proximal portions of the sigmoid colon are not well opacified. There is diffuse thickening of the wall of the mid sigmoid colon. The administered rectal contrast did not reach this portion of the sigmoid colon. Directly adjacent to this thickened segment of sigmoi d colon there is an extraluminal gas collection along the left lateral aspect of the bladder measuring 3.3 cm x 2.3 cm suspicious for fistula/abscess. The wall of the bladder is thickened in this area. This collection may also be in continuity with the left aspect of the vaginal cuff. Findings raise suspicion for fistula/abscess arising from the mid sigmoid colon and involving the left wall of the b ladder and possibly vaginal cuff. There is no gas within the bladder. There is a small amount of gas within the vagina. There is diffuse soft tissue anasarca with more prominent edema of the left thigh. There is a mildly enlarged left groin lymph node measuring 2.4 cm x 1.6 cm. Osseous structures are unremarkable. IMPRESSION: Findings suspicious for fistula/abscess arising from the mid sigmoid colon, abutting the left lateral wall of the bladder and possibly involving the left aspect of the vaginal cuff. There is thickening of the mid sigmoid colon at the site of the suspected fistula, which may be due to diverticulitis or mass. The administered rectal contrast did not reach the level of the suspected fistula. A barium enema with water-soluble contrast could be considered to confirm the presence of a fistula. There is diffuse soft tissue anasarca with more prominent edema of the left thigh. Enlarged left inguinal lymph node measuring 2.4 cm x 1.6 cm. This is nonspecific and may be reactive. GLUCOSE METER Collected: 02/22/2018 Status: F Source: [facility] 7:39 AM [facility] REPOSITORY TYPE CODE TESTS RESULT OUT OF REFERENCE UNITS RANGE LAB GLUBL(LOINC 70-99 mg/dL ) High Glucose Meter 147 Result Comment: RN NOTIFIED Performed By: #### GLMET #### [place] [address] RETICULOCYTE COUNT Collected: 02/22/2018 Status: F Source: [facility] 5:27 AM [facility] REPOSITORY TYPE CODE TESTS RESULT OUT OF REFERENCE UNITS RANGE LAB RETCT(LOIN 1.0-2.1 % C) Reticulocyte High Ct 4.9 LAB RETAS(LOIN 0.038-0.095 mil/cmm C) Absolute High Reticulocyte 0.125 LAB IRF(LOINC) 3.0-15.9 % Immature Retic High Fractions 36.1 LAB RETHE(LOIN 27.9-38.4 pg C) Low Retic Hemoglobin 19.5 Equivalent Performed By: #### RETC1 #### [place] [address] IRON SERUM Collected: 02/22/2018 Status: F Source: [facility] 5:27 AM [facility] REPOSITORY TYPE CODE TESTS RESULT OUT OF RANGE REFERENCE UNITS LAB IRON(LOINC) 50-170 ug/dL Low Iron 18 Serum Performed By: #### IRON #### [place] [address] TYPE AND SCREEN Collected: 02/22/2018 Status: F Source: [facility] 5:27 AM [facility] REPOSITORY TYPE CODE TESTS RESULT OUT OF REFERENCE UNITS RANGE LAB ABO(LOINC) A ABO Group LAB BARREL INSPECTOR(LOINC ) RH Type Positive LAB ABSCR(LOIN C) Antibody NEGATIVE Screen LAB BBCMT(LOIN C) Comment See Below Result Comment: Screen &/or Xmatch expires in 3 days at 12 midnight. Redraw patient at that time. Performed By: #### T&S #### [facility] [address] [address] HEMOGRAM Collected: 02/22/2018 Status: F Source: [facility] 3:35 AM [facility] REPOSITORY TYPE CODE TESTS RESULT OUT OF REFERENCE UNITS RANGE LAB WBC(LOINC) 3.98-10.04 thou/cmm WBC High 10.76 LAB RBC(LOINC) 3.93-5.22 mil/cmm Low RBC 2.49 LAB HGB(LOINC) 11.2-15.7 g/dL Low Hgb alert 6.7 LAB HCT(LOINC) 34.1-44.9 % Low Hct 22.1 LAB MCV(LOINC) 79.4-94.8 fl MCV 88.8 LAB MCH(LOINC) 25.6-32.2 pg MCH 26.9 LAB MCHC(LOINC 31.6-34.8 % ) Low MCHC 30.3 LAB RDW(LOINC) 11.7-14.4 % RDW High 17.4 LAB RDWSD(LOIN 36.4-46.3 fl C) RDW High SD 53.1 LAB PLT(LOINC) 182-369 thou/cmm Platelet 314 LAB MPV(LOINC) 9.4-12.3 fl Low MPV 8.9 LAB NRBCR(LOIN 0.0-0.2 % C) Nucleated RBC % 0.2 LAB NRBCA(LOIN 0.00-0.01 thou/cmm C) High Nucleated RBC 0.02 Absolute Performed By: #### CBC1 #### [facility] [address] [place] [address] BASIC PANEL Collected: 02/22/2018 Status: F Source: [facility] 3:35 AM [facility] REPOSITORY TYPE CODE TESTS RESULT OUT OF REFERENCE UNITS RANGE LAB NA(LOINC) 136-145 mEq/L Sodium Blood 137 LAB K(LOINC) 3.5-5.1 mEq/L Potassium Blood 4.3 LAB CL(LOINC) 98-107 mEq/L Chloride Blood 103 LAB CO2(LOINC) 21-32 mEq/L CO2 Blood 29 LAB GLU(LOINC) 70-99 mg/dL Glucose High Blood 121 LAB BUN(LOINC) 7-18 mg/dL BUN Blood 16 LAB CREA(LOINC 0.51-0.95 mg/dL ) Creatinine Blood 0.70 LAB CA(LOINC) 8.5-10.1 mg/dL Low Calcium Blood 8.4 LAB ANGAP(LOIN 8-16 C) Anion Gap 9 Performed By: #### P8 #### [place] [address] MDRD GFR Collected: 02/22/2018 Status: F Source: [facility] 3:35 AM [facility] REPOSITORY TYPE CODE TESTS RESULT OUT OF RANGE REFERENCE UNITS LAB GFRFN(LOINC >60mL/min/1.73m ) 2 eGFR >60 Result Comment: If the patient is , multiply the result by 1.210. Performed By: #### GFR #### [place] [address] GLUCOSE METER Collected: 02/21/2018 Status: F Source: [facility] 8:27 PM [facility] REPOSITORY TYPE CODE TESTS RESULT OUT OF REFERENCE UNITS RANGE LAB GLUBL(LOINC 70-99 mg/dL ) High Glucose Meter 179 Performed By: #### GLMET #### [place] [address] GLUCOSE METER Collected: 02/21/2018 Status: F Source: [facility] 4:05 PM [facility] REPOSITORY TYPE CODE TESTS RESULT OUT OF REFERENCE UNITS RANGE LAB GLUBL(LOINC 70-99 mg/dL ) High Glucose Meter 133 Performed By: #### GLMET #### [place] [address] GLUCOSE METER Collected: 02/21/2018 Status: F Source: [facility] 11:36 AM [facility] REPOSITORY TYPE CODE TESTS RESULT OUT OF REFERENCE UNITS RANGE LAB GLUBL(LOINC 70-99 mg/dL ) High Glucose Meter 166 Performed By: #### GLMET #### [place] [address] VANCOMYCIN,TROUGH Collected: Status: F Source: [facility] 02/21/2018 8:30 AM [facility] SYSTEM REPOSITORY TYPE CODE TESTS RESULT OUT OF RANGE REFERENCE UNITS LAB VANCT(LOINC 10.0-20.0 mg/L ) 18.3 Vancomycin,T rough Performed By: #### VANCT #### [facility] [address] [address] GLUCOSE METER Collected: 02/21/2018 Status: F Source: [facility] 7:32 AM [facility] REPOSITORY TYPE CODE TESTS RESULT OUT OF REFERENCE UNITS RANGE LAB GLUBL(LOINC 70-99 mg/dL ) High Glucose Meter 201 Performed By: #### GLMET #### [facility] [address] [address] HEMOGRAM Collected: 02/21/2018 Status: F Source: [facility] 6:00 AM [facility] REPOSITORY TYPE CODE TESTS RESULT OUT OF REFERENCE UNITS RANGE LAB WBC(LOINC) 3.98-10.04 thou/cmm WBC High 10.46 LAB RBC(LOINC) 3.93-5.22 mil/cmm Low RBC 2.64 LAB HGB(LOINC) 11.2-15.7 g/dL Low Hgb 7.1 LAB HCT(LOINC) 34.1-44.9 % Low Hct 23.1 LAB MCV(LOINC) 79.4-94.8 fl MCV 87.5 LAB MCH(LOINC) 25.6-32.2 pg MCH 26.9 LAB MCHC(LOINC 31.6-34.8 % ) Low MCHC 30.7 LAB RDW(LOINC) 11.7-14.4 % RDW High 17.1 LAB RDWSD(LOIN 36.4-46.3 fl C) RDW High SD 52.1 LAB PLT(LOINC) 182-369 thou/cmm Platelet 286 LAB MPV(LOINC) 9.4-12.3 fl Low MPV 8.8 LAB NRBCR(LOIN 0.0-0.2 % C) Nucleated RBC % 0.2 LAB NRBCA(LOIN 0.00-0.01 thou/cmm C) High Nucleated RBC 0.02 Absolute Performed By: #### CBC1 #### [facility] [address] [place] [address] BASIC PANEL Collected: 02/21/2018 Status: F Source: [facility] 6:00 [facility] SYSTEM REPOSITORY TYPE CODE TESTS RESULT OUT OF REFERENCE UNITS RANGE LAB NA(LOINC) 136-145 mEq/L Low Sodium Blood 133 LAB K(LOINC) 3.5-5.1 mEq/L Potassium Blood 4.5 LAB CL(LOINC) 98-107 mEq/L Chloride Blood 101 LAB CO2(LOINC) 21-32 mEq/L CO2 Blood 26 LAB GLU(LOINC) 70-99 mg/dL Glucose High Blood 200 LAB BUN(LOINC) 7-18 mg/dL BUN Blood 15 LAB CREA(LOINC 0.51-0.95 mg/dL ) Creatinine Blood 0.57 LAB CA(LOINC) 8.5-10.1 mg/dL Low Calcium Blood 8.4 LAB ANGAP(LOIN 8-16 C) Anion Gap 11 Performed By: #### P8 #### [facility] [address] [place] [address] MDRD GFR Collected: 02/21/2018 Status: F Source: [facility] 6:00 AM [facility] REPOSITORY TYPE CODE TESTS RESULT OUT OF RANGE REFERENCE UNITS LAB GFRFN(LOINC >60mL/min/1.73m ) 2 eGFR >60 Result Comment: If the patient is , multiply the result by 1.210. Performed By: #### GFR #### [place] [address] GLUCOSE METER Collected: 02/21/2018 Status: F Source: [facility] 12:08 AM [facility] REPOSITORY TYPE CODE TESTS RESULT OUT OF REFERENCE UNITS RANGE LAB GLUBL(LOINC 70-99 mg/dL ) High Glucose Meter 138 Performed By: #### GLMET #### [place] [address] GLUCOSE METER Collected: 02/20/2018 Status: F Source: [facility] 10:55 PM [facility] SYSTEM REPOSITORY TYPE CODE TESTS RESULT OUT OF REFERENCE UNITS RANGE LAB GLUBL(LOINC 70-99 mg/dL ) Glucose Meter 99 Performed By: #### GLMET #### [place] [address] GLUCOSE METER Collected: 02/20/2018 Status: F Source: [facility] 10:19 PM [facility] REPOSITORY TYPE CODE TESTS RESULT OUT OF REFERENCE UNITS RANGE LAB GLUBL(LOINC 70-99 mg/dL ) Low Glucose Meter 57 Performed By: #### GLMET #### [place] [address] GLUCOSE METER Collected: 02/20/2018 Status: F Source: [facility] 9:43 PM [facility] SYSTEM REPOSITORY TYPE CODE TESTS RESULT OUT OF REFERENCE UNITS RANGE LAB GLUBL(LOINC 70-99 mg/dL ) Low Glucose Meter <50 Performed By: #### GLMET #### [facility] [address] [place], [place] [address] GLUCOSE METER Collected: 02/20/2018 Status: F Source: [facility] 4:18 PM [facility] SYSTEM REPOSITORY TYPE CODE TESTS RESULT OUT OF REFERENCE UNITS RANGE LAB GLUBL(LOINC 70-99 mg/dL ) High Glucose Meter 114 Result Comment: RN NOTIFIED Performed By: #### GLMET #### [facility] [address] [place], [place] [address] GLUCOSE METER Collected: 02/20/2018 Status: F Source: [facility] 11:31 AM [facility] REPOSITORY TYPE CODE TESTS RESULT OUT OF REFERENCE UNITS RANGE LAB GLUBL(LOINC 70-99 mg/dL ) High Glucose Meter 215 Result Comment: RN NOTIFIED Performed By: #### GLMET #### [place] [address] ASPERGILLUS AG Collected: 02/20/2018 Status: F Source: [facility] 9:40 AM [facility] SYSTEM REPOSITORY TYPE CODE TESTS RESULT OUT OF REFERENCE UNITS RANGE LAB ASPRX(LOIN C) Aspergillus Ag SEE BELOW Result Comment: Asper. Ag Ser,Qual Negative NEGAT Aspergillus galactomannan antigen not detected in this sample. A negative result may indicate that the patient's result is below the detectable level of the assay. Negative results do not rule out the diagnosis of Invasive Aspergillosis. Repeat testing is recommended if the result is negative,but the disease is suspected. Aspergillus Ag,Ser <0.50 Index Index Values are Interpreted as Follows: Negative specimens <0.50 Positive specimens >=0.50 Performing Laboratory: [facility] [address] [place] [address] Performed By: #### ASPRX #### [facility] [address] [place], [place] [address] GLUCOSE METER Collected: 02/20/2018 Status: F Source: [facility] 7:35 AM [facility] REPOSITORY TYPE CODE TESTS RESULT OUT OF REFERENCE UNITS RANGE LAB GLUBL(LOINC 70-99 mg/dL ) High Glucose Meter 174 Result Comment: RN NOTIFIED Performed By: #### GLMET #### [facility] [address] [place] [id number] HEMOGRAM/DIFF Collected: 02/20/2018 Status: F Source: [facility] 5:15 AM [facility] REPOSITORY TYPE CODE TESTS RESULT OUT OF REFERENCE UNITS RANGE LAB WBC(LOINC) 3.98-10.04 thou/cmm WBC High 11.62 LAB RBC(LOINC) 3.93-5.22 mil/cmm Low RBC 2.81 LAB HGB(LOINC) 11.2-15.7 g/dL Low Hgb 7.5 LAB HCT(LOINC) 34.1-44.9 % Low Hct 24.3 LAB MCV(LOINC) 79.4-94.8 fl MCV 86.5 LAB MCH(LOINC) 25.6-32.2 pg MCH 26.7 LAB MCHC(LOINC 31.6-34.8 % ) Low MCHC 30.9 LAB RDW(LOINC) 11.7-14.4 % RDW High 16.9 LAB RDWSD(LOIN 36.4-46.3 fl C) RDW SD High 50.8 LAB PLT(LOINC) 182-369 thou/cmm Platelet 313 LAB MPV(LOINC) 9.4-12.3 fl Low MPV 9.1 LAB SEG(LOINC) % Seg Neutrophil 81.6 LAB IGRE(LOINC % ) Immature Grans 0.80 LAB LYMPH(LOIN % C) Lymphocyte 7.9 LAB MNO(LOINC) % Monocyte 8.8 LAB EOSIN(LOIN % C) Eosinophil 0.6 LAB BASO(LOINC % ) Basophil 0.3 LAB SEGN(LOINC 1.56-6.13 thou/cmm ) Abs. High Neut (ANC) 9.48 LAB IGAB(LOINC 0.00-0.05 thou/cmm ) Abs High Immature Grans 0.09 LAB LYMN(LOINC 1.18-3.74 thou/cmm ) Low Abs. Lymph 0.92 LAB MONON(LOIN 0.27-0.70 thou/cmm C) Abs. High Floyd 1.02 LAB EOSN(LOINC 0.00-0.31 thou/cmm ) Abs. Eosin 0.07 LAB BASON(LOIN 0.01-0.08 thou/cmm C) Abs. Baso 0.03 Performed By: #### CBCD1 #### [place] [address] BASIC PANEL Collected: 02/20/2018 Status: F Source: [facility] 5:15 AM [facility] REPOSITORY TYPE CODE TESTS RESULT OUT OF REFERENCE UNITS RANGE LAB NA(LOINC) 136-145 mEq/L Low Sodium Blood 133 LAB K(LOINC) 3.5-5.1 mEq/L Potassium Blood 3.8 LAB CL(LOINC) 98-107 mEq/L Chloride Blood 102 LAB CO2(LOINC) 21-32 mEq/L CO2 Blood 25 LAB GLU(LOINC) 70-99 mg/dL Glucose High Blood 155 LAB BUN(LOINC) 7-18 mg/dL BUN Blood 11 LAB CREA(LOINC 0.51-0.95 mg/dL ) Creatinine Blood 0.58 LAB CA(LOINC) 8.5-10.1 mg/dL Calcium Blood 8.6 LAB ANGAP(LOIN 8-16 C) Anion Gap 10 Performed By: #### P8 #### [place] [address] MDRD GFR Collected: 02/20/2018 Status: F Source: [facility] 5:15 AM [facility] REPOSITORY TYPE CODE TESTS RESULT OUT OF RANGE REFERENCE UNITS LAB GFRFN(LOINC >60mL/min/1.73m ) 2 eGFR >60 Result Comment: If the patient is , multiply the result by 1.210. Performed By: #### GFR #### [place] [address] GLUCOSE METER Collected: 02/19/2018 Status: F Source: [facility] 10:22 PM [facility] REPOSITORY TYPE CODE TESTS RESULT OUT OF REFERENCE UNITS RANGE LAB GLUBL(LOINC 70-99 mg/dL ) High Glucose Meter 170 Result Comment: RN NOTIFIED Performed By: #### GLMET #### [place] [address] GLUCOSE METER Collected: 02/19/2018 Status: F Source: [facility] 7:53 PM [facility] REPOSITORY TYPE CODE TESTS RESULT OUT OF REFERENCE UNITS RANGE LAB GLUBL(LOINC 70-99 mg/dL ) High Glucose Meter 125 Result Comment: RN NOTIFIED Performed By: #### GLMET #### [facility] [address] [place] [address] GLUCOSE METER Collected: 02/19/2018 Status: F Source: [facility] 4:04 PM [facility] REPOSITORY TYPE CODE TESTS RESULT OUT OF REFERENCE UNITS RANGE LAB GLUBL(LOINC 70-99 mg/dL ) High Glucose Meter 161 Result Comment: RN NOTIFIED Performed By: #### GLMET #### [place] [address] GLUCOSE METER Collected: 02/19/2018 Status: F Source: [facility] 12:14 PM [facility] REPOSITORY TYPE CODE TESTS RESULT OUT OF REFERENCE UNITS RANGE LAB GLUBL(LOINC 70-99 mg/dL ) High Glucose Meter 144 Result Comment: RN NOTIFIED Performed By: #### GLMET #### [place] [address] VANCOMYCIN,TROUGH Collected: Status: F Source: [facility] 02/19/2018 10:00 AM [facility] SYSTEM REPOSITORY TYPE CODE TESTS RESULT OUT OF RANGE REFERENCE UNITS LAB VANCT(LOINC 10.0-20.0 mg/L ) Low < 0.8 Vancomycin,T rough Performed By: #### VANCT #### [place] [address] GLUCOSE METER Collected: 02/19/2018 Status: F Source: [facility] 7:52 AM [facility] REPOSITORY TYPE CODE TESTS RESULT OUT OF REFERENCE UNITS RANGE LAB GLUBL(LOINC 70-99 mg/dL ) High Glucose Meter 106 Result Comment: RN NOTIFIED Performed By: #### GLMET #### [place] [address] GLUCOSE METER Collected: 02/19/2018 Status: F Source: [facility] 5:34 AM [facility] REPOSITORY TYPE CODE TESTS RESULT OUT OF REFERENCE UNITS RANGE LAB GLUBL(LOINC 70-99 mg/dL ) High Glucose Meter 137 Result Comment: RN NOTIFIED Performed By: #### GLMET #### [place] [address] BASIC PANEL Collected: 02/19/2018 Status: F Source: [facility] 5:30 AM [facility] REPOSITORY TYPE CODE TESTS RESULT OUT OF REFERENCE UNITS RANGE LAB NA(LOINC) 136-145 mEq/L Low Sodium Blood 135 LAB K(LOINC) 3.5-5.1 mEq/L Potassium Blood 4.1 LAB CL(LOINC) 98-107 mEq/L Chloride Blood 105 LAB CO2(LOINC) 21-32 mEq/L CO2 Blood 26 LAB GLU(LOINC) 70-99 mg/dL Glucose High Blood 126 LAB BUN(LOINC) 7-18 mg/dL BUN Blood 10 LAB CREA(LOINC 0.51-0.95 mg/dL ) Creatinine Blood 0.60 LAB CA(LOINC) 8.5-10.1 mg/dL Low Calcium Blood 8.0 LAB ANGAP(LOIN 8-16 C) Anion Gap 8 Performed By: #### P8 #### [facility] [address] [place] [address] MDRD GFR Collected: 02/19/2018 Status: F Source: [facility] 5:30 AM [facility] REPOSITORY TYPE CODE TESTS RESULT OUT OF RANGE REFERENCE UNITS LAB GFRFN(LOINC >60mL/min/1.73m ) 2 eGFR >60 Result Comment: If the patient is , multiply the result by 1.210. Performed By: #### GFR #### [facility] [address] [place] [address] HEMOGRAM Collected: 02/19/2018 Status: F Source: [facility] 5:30 [facility] SYSTEM REPOSITORY TYPE CODE TESTS RESULT OUT OF REFERENCE UNITS RANGE LAB WBC(LOINC) 3.98-10.04 thou/cmm WBC 9.55 LAB RBC(LOINC) 3.93-5.22 mil/cmm Low RBC 2.59 LAB HGB(LOINC) 11.2-15.7 g/dL Low alert Hgb 7.0 LAB HCT(LOINC) 34.1-44.9 % Low Hct 22.3 LAB MCV(LOINC) 79.4-94.8 fl MCV 86.1 LAB MCH(LOINC) 25.6-32.2 pg MCH 27.0 LAB MCHC(LOINC) 31.6-34.8 % Low MCHC 31.4 LAB RDW(LOINC) 11.7-14.4 % High RDW 16.6 LAB RDWSD(LOINC 36.4-46.3 fl ) High RDW SD 49.4 LAB PLT(LOINC) 182-369 thou/cmm Platelet 236 LAB MPV(LOINC) 9.4-12.3 fl Low MPV 8.9 Performed By: #### CBC1 #### [facility] [address] [place] [address] GLUCOSE METER Collected: 02/18/2018 Status: F Source: [facility] 11:15 PM [facility] REPOSITORY TYPE CODE TESTS RESULT OUT OF REFERENCE UNITS RANGE LAB GLUBL(LOINC 70-99 mg/dL ) High Glucose Meter 143 Result Comment: RN NOTIFIED Performed By: #### GLMET #### [facility] [address] [place] [address] GLUCOSE METER Collected: 02/18/2018 Status: F Source: [facility] 7:57 PM [facility] REPOSITORY TYPE CODE TESTS RESULT OUT OF REFERENCE UNITS RANGE LAB GLUBL(LOINC 70-99 mg/dL ) High Glucose Meter 175 Result Comment: RN NOTIFIED Performed By: #### GLMET #### [facility] [address] [place] [address] GLUCOSE METER Collected: 02/18/2018 Status: F Source: [facility] 6:38 PM [facility] REPOSITORY TYPE CODE TESTS RESULT OUT OF REFERENCE UNITS RANGE LAB GLUBL(LOINC 70-99 mg/dL ) High Glucose Meter 185 Result Comment: RN NOTIFIED Performed By: #### GLMET #### [facility] [address] [place] [address] GLUCOSE METER Collected: 02/18/2018 Status: F Source: [facility] 5:10 PM [facility] REPOSITORY TYPE CODE TESTS RESULT OUT OF REFERENCE UNITS RANGE LAB GLUBL(LOINC 70-99 mg/dL ) Glucose Meter 70 Result Comment: RN NOTIFIED Performed By: #### GLMET #### [facility] [address] [place] [address] GLUCOSE METER Collected: 02/18/2018 Status: F Source: [facility] 4:20 PM [facility] REPOSITORY TYPE CODE TESTS RESULT OUT OF REFERENCE UNITS RANGE LAB GLUBL(LOINC 70-99 mg/dL ) Glucose Meter 71 Result Comment: RN NOTIFIED Performed By: #### GLMET #### [facility] [address] [place] [address] GLUCOSE METER Collected: 02/18/2018 Status: F Source: [facility] 12:08 PM [facility] REPOSITORY TYPE CODE TESTS RESULT OUT OF REFERENCE UNITS RANGE LAB GLUBL(LOINC 70-99 mg/dL ) High Glucose Meter 129 Performed By: #### GLMET #### [facility] [address] [place], [place] [address] GLUCOSE METER Collected: 02/18/2018 Status: F Source: [facility] 8:00 AM [facility] REPOSITORY TYPE CODE TESTS RESULT OUT OF REFERENCE UNITS RANGE LAB GLUBL(LOINC 70-99 mg/dL ) High Glucose Meter 138 Result Comment: RN NOTIFIED Performed By: #### GLMET #### [facility] [address] [place], [place] [address] CHEST 1 VIEW Observed: 02/18/2018 Status: F Source: [facility] 5:58 AM [facility] REPOSITORY Performed at [facility] APPROVED BY: Alpesh Florian MD EXAM TITLE: CHEST 1 VIEW DATE: 02/18/2018 05:38 INDICATION: Status post coronary artery bypass graft. COMPARISON: 02/17/2018 at 05 43 Portable frontal view of the chest shows right internal jugular venous sheath in place. Intact median sternotomy wires. Heart size is upper limits of normal. Improving aeration at the lung bases with trace bilateral pleural effusions. Remainder lungs is clear. IMPRESSION: Improving aeration at the lung bases. HEMOGRAM/DIFF Collected: 02/18/2018 Status: F Source: [facility] 5:56 AM [facility] REPOSITORY TYPE CODE TESTS RESULT OUT OF REFERENCE UNITS RANGE LAB WBC(LOINC) 3.98-10.04 thou/cmm WBC High 10.76 LAB RBC(LOINC) 3.93-5.22 mil/cmm Low RBC 2.59 LAB HGB(LOINC) 11.2-15.7 g/dL Low Hgb 7.1 LAB HCT(LOINC) 34.1-44.9 % Low Hct 21.7 LAB MCV(LOINC) 79.4-94.8 fl MCV 83.8 LAB MCH(LOINC) 25.6-32.2 pg MCH 27.4 LAB MCHC(LOINC 31.6-34.8 % ) MCHC 32.7 LAB RDW(LOINC) 11.7-14.4 % RDW High 16.4 LAB RDWSD(LOIN 36.4-46.3 fl C) RDW SD High 48.8 LAB PLT(LOINC) 182-369 thou/cmm Platelet 211 LAB MPV(LOINC) 9.4-12.3 fl Low MPV 9.0 LAB SEG(LOINC) % Seg Neutrophil 83.2 LAB IGRE(LOINC % ) Immature Grans 1.10 LAB LYMPH(LOIN % C) Lymphocyte 6.6 LAB MNO(LOINC) % Monocyte 8.4 LAB EOSIN(LOIN % C) Eosinophil 0.4 LAB BASO(LOINC % ) Basophil 0.3 LAB SEGN(LOINC 1.56-6.13 thou/cmm ) Abs. High Neut (ANC) 8.95 LAB IGAB(LOINC 0.00-0.05 thou/cmm ) Abs High Immature Grans 0.12 LAB LYMN(LOINC 1.18-3.74 thou/cmm ) Low Abs. Lymph 0.71 LAB MONON(LOIN 0.27-0.70 thou/cmm C) Abs. High Floyd 0.90 LAB EOSN(LOINC 0.00-0.31 thou/cmm ) Abs. Eosin 0.04 LAB BASON(LOIN 0.01-0.08 thou/cmm C) Abs. Baso 0.03 Performed By: #### CBCD1 #### [place] [address] GLUCOSE METER Collected: 02/18/2018 Status: F Source: [facility] 5:54 AM [facility] REPOSITORY TYPE CODE TESTS RESULT OUT OF REFERENCE UNITS RANGE LAB GLUBL(LOINC 70-99 mg/dL ) High Glucose Meter 128 Result Comment: RN NOTIFIED Performed By: #### GLMET #### [address] [address] GLUCOSE METER Collected: 02/17/2018 Status: F Source: [facility] 11:39 PM [facility] REPOSITORY TYPE CODE TESTS RESULT OUT OF REFERENCE UNITS RANGE LAB GLUBL(LOINC 70-99 mg/dL ) High Glucose Meter 125 Performed By: #### GLMET #### [place] [address] GLUCOSE METER Collected: 02/17/2018 Status: F Source: [facility] 8:14 PM [facility] REPOSITORY TYPE CODE TESTS RESULT OUT OF REFERENCE UNITS RANGE LAB GLUBL(LOINC 70-99 mg/dL ) High Glucose Meter 115 Performed By: #### GLMET #### [facility] [address] [place] [address] GLUCOSE METER Collected: 02/17/2018 Status: F Source: [facility] 4:19 PM [facility] REPOSITORY TYPE CODE TESTS RESULT OUT OF REFERENCE UNITS RANGE LAB GLUBL(LOINC 70-99 mg/dL ) Glucose Meter 80 Performed By: #### GLMET #### [facility] [address] [place] [address] GLUCOSE METER Collected: 02/17/2018 Status: F Source: [facility] 11:51 AM [facility] REPOSITORY TYPE CODE TESTS RESULT OUT OF REFERENCE UNITS RANGE LAB GLUBL(LOINC 70-99 mg/dL ) High Glucose Meter 150 Result Comment: RN NOTIFIED Performed By: #### GLMET #### [facility] [address] [place] [address] GLUCOSE METER Collected: 02/17/2018 Status: F Source: [facility] 7:52 AM [facility] REPOSITORY TYPE CODE TESTS RESULT OUT OF REFERENCE UNITS RANGE LAB GLUBL(LOINC 70-99 mg/dL ) High Glucose Meter 121 Result Comment: RN NOTIFIED Performed By: #### GLMET #### [facility] [address] [place] [address] HEMOGRAM Collected: 02/17/2018 Status: F Source: [facility] 6:00 AM [facility] REPOSITORY TYPE CODE TESTS RESULT OUT OF REFERENCE UNITS RANGE LAB WBC(LOINC) 3.98-10.04 thou/cmm High WBC 11.00 LAB RBC(LOINC) 3.93-5.22 mil/cmm Low RBC 2.68 LAB HGB(LOINC) 11.2-15.7 g/dL Low Hgb 7.3 LAB HCT(LOINC) 34.1-44.9 % Low Hct 22.4 LAB MCV(LOINC) 79.4-94.8 fl MCV 83.6 LAB MCH(LOINC) 25.6-32.2 pg MCH 27.2 LAB MCHC(LOINC) 31.6-34.8 % MCHC 32.6 LAB RDW(LOINC) 11.7-14.4 % High RDW 16.5 LAB RDWSD(LOINC 36.4-46.3 fl ) High RDW SD 48.9 LAB PLT(LOINC) 182-369 thou/cmm Low Platelet 181 LAB MPV(LOINC) 9.4-12.3 fl Low MPV 9.3 Performed By: #### CBC1 #### [place] [address] BASIC PANEL Collected: 02/17/2018 Status: F Source: [facility] 6:00 AM [facility] REPOSITORY TYPE CODE TESTS RESULT OUT OF REFERENCE UNITS RANGE LAB NA(LOINC) 136-145 mEq/L Low Sodium Blood 134 LAB K(LOINC) 3.5-5.1 mEq/L Potassium Blood 4.0 LAB CL(LOINC) 98-107 mEq/L Chloride Blood 106 LAB CO2(LOINC) 21-32 mEq/L CO2 Blood 23 LAB GLU(LOINC) 70-99 mg/dL Glucose High Blood 109 LAB BUN(LOINC) 7-18 mg/dL BUN Blood 11 LAB CREA(LOINC 0.51-0.95 mg/dL ) Creatinine Blood 0.60 LAB CA(LOINC) 8.5-10.1 mg/dL Low Calcium Blood 7.5 LAB ANGAP(LOIN 8-16 C) Anion Gap 9 Performed By: #### P8 #### [place] [address] MAGNESIUM BLOOD Collected: 02/17/2018 Status: F Source: [facility] 6:00 [facility] REPOSITORY TYPE CODE TESTS RESULT OUT OF REFERENCE UNITS RANGE LAB MAG(LOINC) 1.6-2.6 mg/dL Magnesium Blood 2.1 Performed By: #### MAG #### [place] [address] MDRD GFR Collected: 02/17/2018 Status: F Source: [facility] 6:00 [facility] REPOSITORY TYPE CODE TESTS RESULT OUT OF RANGE REFERENCE UNITS LAB GFRFN(LOINC >60mL/min/1.73m ) 2 eGFR >60 Result Comment: If the patient is , multiply the result by 1.210. Performed By: #### GFR #### [place] [address] CHEST 1 VIEW Observed: 02/17/2018 Status: F Source: [facility] 5:57 AM [facility] REPOSITORY Performed at [facility] APPROVED BY: Jermaine Mike MD Exam: Portable view of the chest dated 02/17/2018 05:37. Indication: Status post CABG. Comparison: 02/16/2018. Findings: Cardiac leads are on the patient. The [place]Nehemias catheter has been removed. There is a right internal jugular sheath terminating near the upper SVC. Left chest tube unchanged in position. No visible pneumothorax. Mild pleural and parenchymal opacities persist at the lung bases. Median sternotomy wires are present. Cardiac and mediastinal contours are unchanged. IMPRESSION: 1. No visible pneumothorax. 2. Mild bibasilar pleural/parenchymal disease. GLUCOSE METER Collected: 02/17/2018 Status: F Source: [facility] 5:56 AM [facility] REPOSITORY TYPE CODE TESTS RESULT OUT OF REFERENCE UNITS RANGE LAB GLUBL(LOINC 70-99 mg/dL ) High Glucose Meter 116 Performed By: #### GLMET #### [place] [address] GLUCOSE METER Collected: 02/17/2018 Status: F Source: [facility] 3:01 AM [facility] REPOSITORY TYPE CODE TESTS RESULT OUT OF REFERENCE UNITS RANGE LAB GLUBL(LOINC 70-99 mg/dL ) High Glucose Meter 167 Performed By: #### GLMET #### [facility] [address] [place] [address] GLUCOSE METER Collected: 02/17/2018 Status: F Source: [facility] 1:37 AM [facility] REPOSITORY TYPE CODE TESTS RESULT OUT OF REFERENCE UNITS RANGE LAB GLUBL(LOINC 70-99 mg/dL ) High Glucose Meter 187 Performed By: #### GLMET #### [place] [address] RBC PRODUCTS Collected: 02/16/2018 Status: F Source: [facility] 8:10 PM [facility] REPOSITORY TYPE CODE TESTS RESULT OUT OF REFERENCE UNITS RANGE LAB UNIT1(LOINC ) Xmatch Unit 1 see below Result Comment: Compatible Performed By: #### RBCPS #### [place] [address] GLUCOSE METER Collected: 02/16/2018 Status: F Source: [facility] 8:04 PM [facility] REPOSITORY TYPE CODE TESTS RESULT OUT OF REFERENCE UNITS RANGE LAB GLUBL(LOINC 70-99 mg/dL ) Glucose Meter 91 Result Comment: RN NOTIFIED Performed By: #### GLMET #### [facility] [address] [place] [address] HGB Collected: 02/16/2018 Status: F Source: [facility] 6:26 PM [facility] REPOSITORY TYPE CODE TESTS RESULT OUT OF RANGE REFERENCE UNITS LAB HGBI(LOINC) 11.2-15.7 g/dL Low alert Hgb 6.7 Performed By: #### HGBI #### [facility] [address] [place] [address] HCT Collected: 02/16/2018 Status: F Source: [facility] 6:26 PM [facility] REPOSITORY TYPE CODE TESTS RESULT OUT OF RANGE REFERENCE UNITS LAB HCTI(LOINC) 34.1-44.9 % Low Hct 20.9 Performed By: #### HCTI #### [place] [address] GLUCOSE METER Collected: 02/16/2018 Status: F Source: [facility] 6:00 PM [facility] REPOSITORY TYPE CODE TESTS RESULT OUT OF REFERENCE UNITS RANGE LAB GLUBL(LOINC 70-99 mg/dL ) High Glucose Meter 114 Result Comment: RN NOTIFIED Performed By: #### GLMET #### [facility] [address] [place] [address] GLUCOSE METER Collected: 02/16/2018 Status: F Source: [facility] 4:05 PM [facility] REPOSITORY TYPE CODE TESTS RESULT OUT OF REFERENCE UNITS RANGE LAB GLUBL(LOINC 70-99 mg/dL ) High Glucose Meter 134 Result Comment: RN NOTIFIED Performed By: #### GLMET #### [facility] [address] [place] [address] GLUCOSE METER Collected: 02/16/2018 Status: F Source: [facility] 2:00 PM [facility] REPOSITORY TYPE CODE TESTS RESULT OUT OF REFERENCE UNITS RANGE LAB GLUBL(LOINC 70-99 mg/dL ) High Glucose Meter 134 Result Comment: RN NOTIFIED Performed By: #### GLMET #### [place] [address] RBC PRODUCTS Collected: 02/16/2018 Status: F Source: [facility] 12:50 PM [facility] REPOSITORY TYPE CODE TESTS RESULT OUT OF REFERENCE UNITS RANGE LAB UNIT1(LOINC ) Xmatch Unit 1 see below Result Comment: Compatible Performed By: #### RBCPS #### [facility] [address] [place] [address] GLUCOSE METER Collected: 02/16/2018 Status: F Source: [facility] 12:07 PM [facility] REPOSITORY TYPE CODE TESTS RESULT OUT OF REFERENCE UNITS RANGE LAB GLUBL(LOINC 70-99 mg/dL ) High Glucose Meter 152 Result Comment: RN NOTIFIED Performed By: #### GLMET #### [facility] [address] [place] [address] BLOOD GAS ARTERIAL Collected: 02/16/2018 Status: F Source: [facility] 12:00 PM [facility] REPOSITORY TYPE CODE TESTS RESULT OUT OF REFERENCE UNITS RANGE LAB TEMPA(LOIN C) Temperature 37.0 LAB PH(LOINC) 7.350-7.450 pH Arterial 7.405 LAB PCO2(LOINC 36.0-46.0 mm Hg ) Low PCO2 Arterial 34.9 LAB PO2(LOINC) 85.0-96.0 mm Hg PO2 High Arterial 155.4 LAB HCO3A(LOIN 22.0-26.0 mEq/L C) Low HCO3- 21.4 LAB O2%A(LOINC 95.0-98.0 % ) O2% Sat High Arterial 98.8 LAB BASEX(LOIN -2.5 to 2.5 mEq/L C) Base Excess -3.1 LAB FIO2(LOINC % ) FIO2 28 Performed By: #### ABG #### [place] [address] HGB Collected: 02/16/2018 Status: F Source: [facility] 12:00 PM [facility] REPOSITORY TYPE CODE TESTS RESULT OUT OF RANGE REFERENCE UNITS LAB HGBI(LOINC) 11.2-15.7 g/dL Low alert Hgb 5.9 Performed By: #### HGBI #### [facility] [address] [place] [address] HCT Collected: 02/16/2018 Status: F Source: [facility] 12:00 PM [facility] REPOSITORY TYPE CODE TESTS RESULT OUT OF RANGE REFERENCE UNITS LAB HCTI(LOINC) 34.1-44.9 % Low alert Hct 18.9 Performed By: #### HCTI #### [facility] [address] [place] [address] GLUCOSE METER Collected: 02/16/2018 Status: F Source: [facility] 9:57 AM [facility] REPOSITORY TYPE CODE TESTS RESULT OUT OF REFERENCE UNITS RANGE LAB GLUBL(LOINC 70-99 mg/dL ) High Glucose Meter 151 Result Comment: RN NOTIFIED Performed By: #### GLMET #### [facility] [address] [place] [address] GLUCOSE METER Collected: 02/16/2018 Status: F Source: [facility] 8:09 AM [facility] REPOSITORY TYPE CODE TESTS RESULT OUT OF REFERENCE UNITS RANGE LAB GLUBL(LOINC 70-99 mg/dL ) High Glucose Meter 120 Result Comment: RN NOTIFIED Performed By: #### GLMET #### [facility] [address] [place] [address] RBC PRODUCTS Collected: 02/16/2018 Status: F Source: [facility] 7:53 AM [facility] REPOSITORY TYPE CODE TESTS RESULT OUT OF REFERENCE UNITS RANGE LAB UNIT1(LOINC ) Xmatch Unit 1 see below Result Comment: Compatible Performed By: #### RBCPS #### [facility] [address] [place] [address] CHEST 1 VIEW Observed: 02/16/2018 Status: F Source: [facility] 6:45 AM [facility] REPOSITORY Performed at [facility] APPROVED BY: Richmond Hayden MD EXAMINATION: CHEST RADIOGRAPH (SINGLE VIEW AP OR PA) Clinical History: Status post CABG M: [id number] Comparison: 02/15/2018 RESULT: Lines, tubes, and devices: Right IJ approach [place]Nehemias catheter with tip at pulmonary outflow tract level. Left-sided chest tube and mediastinal drain unchanged. Sternotomy wires. Multiple leads and wires overlie the chest and left upper abdomen. Lungs and pleura: There is a small left pleural effusion with mild coexisting left basilar airspace disease. No pneumothorax. Cardiomediastinal silhouette: Heart size is stable. There are atherosclerotic calcifications of the aorta. Other: Bony structures unchanged. IMPRESSION: Small left pleural effusion with mild coexisting left basilar airspace disease. Support devices as noted. BASIC PANEL Collected: 02/16/2018 Status: F Source: [facility] 5:50 AM [facility] REPOSITORY TYPE CODE TESTS RESULT OUT OF REFERENCE UNITS RANGE LAB NA(LOINC) 136-145 mEq/L Sodium Blood 140 LAB K(LOINC) 3.5-5.1 mEq/L Potassium Blood 4.1 LAB CL(LOINC) 98-107 mEq/L Chloride High Blood 110 LAB CO2(LOINC) 21-32 mEq/L CO2 Blood 25 LAB GLU(LOINC) 70-99 mg/dL Glucose High Blood 132 LAB BUN(LOINC) 7-18 mg/dL BUN Blood 11 LAB CREA(LOINC 0.51-0.95 mg/dL ) Creatinine Blood 0.71 LAB CA(LOINC) 8.5-10.1 mg/dL Low Calcium Blood 7.0 LAB ANGAP(LOIN 8-16 C) Anion Gap 9 Performed By: #### P8 #### [place] [address] MAGNESIUM BLOOD Collected: 02/16/2018 Status: F Source: [facility] 5:50 AM [facility] REPOSITORY TYPE CODE TESTS RESULT OUT OF REFERENCE UNITS RANGE LAB MAG(LOINC) 1.6-2.6 mg/dL Magnesium Blood 2.0 Performed By: #### MAG #### [place] [address] MDRD GFR Collected: 02/16/2018 Status: F Source: [facility] 5:50 AM [facility] REPOSITORY TYPE CODE TESTS RESULT OUT OF RANGE REFERENCE UNITS LAB GFRFN(LOINC >60mL/min/1.73m ) 2 eGFR >60 Result Comment: If the patient is , multiply the result by 1.210. Performed By: #### GFR #### [place] [address] HEMOGRAM Collected: 02/16/2018 Status: F Source: [facility] 5:50 AM [facility] REPOSITORY TYPE CODE TESTS RESULT OUT OF REFERENCE UNITS RANGE LAB WBC(LOINC) 3.98-10.04 thou/cmm WBC High 10.07 LAB RBC(LOINC) 3.93-5.22 mil/cmm Low RBC 2.08 LAB HGB(LOINC) 11.2-15.7 g/dL Low Hgb alert 5.5 LAB HCT(LOINC) 34.1-44.9 % Low Hct alert 17.1 LAB MCV(LOINC) 79.4-94.8 fl MCV 82.2 LAB MCH(LOINC) 25.6-32.2 pg MCH 26.4 LAB MCHC(LOINC 31.6-34.8 % ) MCHC 32.2 LAB RDW(LOINC) 11.7-14.4 % RDW High 15.9 LAB RDWSD(LOIN 36.4-46.3 fl C) RDW High SD 46.5 LAB PLT(LOINC) 182-369 thou/cmm Platelet 185 LAB MPV(LOINC) 9.4-12.3 fl Low MPV 9.2 LAB NRBCR(LOIN 0.0-0.2 % C) Nucleated RBC % 0.2 LAB NRBCA(LOIN 0.00-0.01 thou/cmm C) High Nucleated RBC 0.02 Absolute Performed By: #### CBC1 #### [facility] [address] [place] [address] GLUCOSE METER Collected: 02/16/2018 Status: F Source: [facility] 5:45 AM [facility] REPOSITORY TYPE CODE TESTS RESULT OUT OF REFERENCE UNITS RANGE LAB GLUBL(LOINC 70-99 mg/dL ) High Glucose Meter 147 Performed By: #### GLMET #### [facility] [address] [place] [address] GLUCOSE METER Collected: 02/16/2018 Status: F Source: [facility] 2:41 AM [facility] REPOSITORY TYPE CODE TESTS RESULT OUT OF REFERENCE UNITS RANGE LAB GLUBL(LOINC 70-99 mg/dL ) High Glucose Meter 143 Performed By: #### GLMET #### [place] [address] GLUCOSE METER Collected: 02/15/2018 Status: F Source: [facility] 11:56 PM [facility] REPOSITORY TYPE CODE TESTS RESULT OUT OF REFERENCE UNITS RANGE LAB GLUBL(LOINC 70-99 mg/dL ) High Glucose Meter 152 Performed By: #### GLMET #### [facility] [address] [place] [address] GLUCOSE METER Collected: 02/15/2018 Status: F Source: [facility] 10:49 PM [facility] REPOSITORY TYPE CODE TESTS RESULT OUT OF REFERENCE UNITS RANGE LAB GLUBL(LOINC 70-99 mg/dL ) High Glucose Meter 165 Performed By: #### GLMET #### [facility] [address] [place] [address] GLUCOSE METER Collected: 02/15/2018 Status: F Source: [facility] 8:45 PM [facility] REPOSITORY TYPE CODE TESTS RESULT OUT OF REFERENCE UNITS RANGE LAB GLUBL(LOINC 70-99 mg/dL ) High Glucose Meter 142 Performed By: #### GLMET #### [place] [address] BLOOD GAS ARTERIAL Collected: 02/15/2018 Status: F Source: [facility] 8:25 PM [facility] REPOSITORY TYPE CODE TESTS RESULT OUT OF REFERENCE UNITS RANGE LAB TEMPA(LOIN C) Temperature 39.5 LAB PH(LOINC) 7.350-7.450 pH Arterial 7.365 LAB PCO2(LOINC 36.0-46.0 mm Hg ) PCO2 Arterial 41.1 LAB PO2(LOINC) 85.0-96.0 mm Hg PO2 High Arterial 126.1 LAB HCO3A(LOIN 22.0-26.0 mEq/L C) HCO3- 22.4 LAB O2%A(LOINC 95.0-98.0 % ) O2% Sat Arterial 97.9 LAB BASEX(LOIN -2.5 to 2.5 mEq/L C) Base Excess -2.2 LAB FIO2(LOINC % ) FIO2 40 Performed By: #### ABG #### [place] [address] O2% MEASURED VENOUS Collected: 02/15/2018 Status: F Source: [facility] 8:11 PM [facility] REPOSITORY TYPE CODE TESTS RESULT OUT OF REFERENCE UNITS RANGE LAB O2%MV(LOINC 70.0-80.0 % ) Low O2% Measured 51.7 Venous Performed By: #### O2%MV #### [place] [address] Observed: 02/15/2018 Status: F Source: [facility] 7:40 PM HEALTH SYSTEM RESPIRATORY REPOSITORY Test performed at [facility] No growth Few WBC No organisms seen Performed By: #### C_RES #### [place] [address] BLOOD GAS ARTERIAL Collected: 02/15/2018 Status: F Source: [facility] 7:02 PM [facility] REPOSITORY TYPE CODE TESTS RESULT OUT OF REFERENCE UNITS RANGE LAB FIO2(LOINC % ) FIO2 Value Not Given LAB TEMPA(LOIN C) Temperature 39.4 LAB PH(LOINC) 7.350-7.450 Low pH Arterial 7.335 LAB PCO2(LOINC 36.0-46.0 mm Hg ) PCO2 High Arterial 46.2 LAB PO2(LOINC) 85.0-96.0 mm Hg PO2 High Arterial 134.4 LAB HCO3A(LOIN 22.0-26.0 mEq/L C) HCO3- 23.5 LAB O2%A(LOINC 95.0-98.0 % ) O2% Sat High Arterial 98.1 LAB BASEX(LOIN -2.5 to 2.5 mEq/L C) Base Excess -1.7 Performed By: #### ABG #### [place] [address] URINALYSIS, REFLEX Collected: 02/15/2018 Status: F Source: [facility] 6:30 PM [facility] REPOSITORY TYPE CODE TESTS RESULT OUT OF RANGE REFERENCE UNITS LAB COLOR(LOIN C) Urine Color DK YELLOW LAB APPUR(LOIN C) Urine Appearance CLOUDY LAB GLUUR(LOIN Negative mg/dL C) Glucose Urine NEGATIVE LAB KETON(LOIN Negative mg/dL C) Ketone Urine NEGATIVE LAB HGBUR(LOIN Negative C) Hemoglobin,Urin NEGATIVE e LAB PROTU(LOIN Negative mg/dL C) Abnormal Protein Urine TRACE LAB NITR(LOINC Negative ) Nitrite reflex NEGATIVE LAB BILIU(LOIN Negative C) Abnormal Bilirubin Urine see below Result Comment: Detected (Unable to confirm). LAB SPG(LOINC) 1.005-1.030 Specific 1.030 [place], Ur LAB PHUR(LOINC) 5.0-8.0 pH,Urine 5.0 LAB UROBI(LOINC) 0.0-1.0 EU/dL Urobilinogen,Ur 1.0 LAB LEUKR(LOINC) Negative Leukocyte NEGATIVE esterase LAB RBCU1(LOINC) 0.0-5.0 /hpf RBC,Urine 2.1 LAB WBCR(LOINC) 0.00-5.00 /hpf WBC, High reflex 14.20 LAB EPIT1(LOINC) 0.0-5.0 /hpf Ep Cells Urine 4.5 LAB BACT1(LOINC) None Bacteria Urine NONE LAB REFLX(LOINC) Reflex Comment see below Result Comment: A urine culture has been ordered based on established laboratory criteria. LAB HYCA1(LOINC) 0.0-1.0 /lpf Hyaline Cast 0.0-1 Performed By: #### URIN #### [place] [address] PROCALCITONIN Collected: 02/15/2018 Status: F Source: [facility] 6:30 PM [facility] SYSTEM REPOSITORY TYPE CODE TESTS RESULT OUT OF REFERENCE UNITS RANGE LAB PRCAS(LOIN ng/mL C) Procalcitonin 4.27 Result Comment: Levels <0.50 ng/mL represent a low risk of severe sepsis and/or septic shock, while levels >2.00 ng/mL represent an elevated risk of severe sepsis and/or septic shock. Levels <0.50 ng/mL do not exclude infection, as infections or systemic infections in early stages (<6hrs) can be associated with low concentrations. Levels between 0.50-2.00 ng/mL should be interpreted in the clinical context of the patient, as a variety of conditions such as mathew, trauma, surgery and severe cardiogenic shock can cause procalcitonin elevations. Performed By: #### PRCAS #### [place] [address] Observed: 02/15/2018 Status: F Source: [facility] URINE 6:30 PM HEALTH SYSTEM REPOSITORY Test performed at [facility] No growth Performed By: #### C_URI #### [place] [address] Observed: 02/15/2018 Status: F Source: [facility] [employer] BLOOD 6:30 PM HEALTH SYSTEM REPOSITORY Test performed at [facility] No growth Performed By: #### C_BLO #### [place] [address] GLUCOSE METER Collected: 02/15/2018 Status: F Source: [facility] 5:30 PM HEALTH SYSTEM REPOSITORY TYPE CODE TESTS RESULT OUT OF REFERENCE UNITS RANGE LAB GLUBL(LOINC 70-99 mg/dL ) Glucose Meter 86 Performed By: #### GLMET #### [facility] [address] [place] [id number] Observed: 02/15/2018 Status: F Source: [facility] CULT BLOOD 5:15 PM HEALTH SYSTEM REPOSITORY Test performed at [facility] No growth Performed By: #### C_BLO #### [facility] 1 [place] [address] GLUCOSE METER Collected: 02/15/2018 Status: F Source: [facility] 4:33 PM [facility]ALTH SYSTEM REPOSITORY TYPE CODE TESTS RESULT OUT OF REFERENCE UNITS RANGE LAB GLUBL(LOINC 70-99 mg/dL ) Glucose Meter 99 Result Comment: RN NOTIFIED Performed By: #### GLMET #### [facility] [address] [place] [address] O2% MEASURED VENOUS Collected: 02/15/2018 Status: F Source: [facility] 4:23 PM HEALTH SYSTEM REPOSITORY TYPE CODE TESTS RESULT OUT OF REFERENCE UNITS RANGE LAB O2%MV(LOINC 70.0-80.0 % ) Low O2% Measured 39.3 Venous Performed By: #### O2%MV #### [facility] [address] [place] [address] GLUCOSE METER Collected: 02/15/2018 Status: F Source: [facility] 3:31 PM HEALTH SYSTEM REPOSITORY TYPE CODE TESTS RESULT OUT OF REFERENCE UNITS RANGE LAB GLUBL(LOINC 70-99 mg/dL ) High Glucose Meter 128 Result Comment: RN NOTIFIED Performed By: #### GLMET #### [facility] [address] [place] [address] CHEST 1 VIEW Observed: 02/15/2018 Status: F Source: [facility] 2:53 PM HEALTH SYSTEM REPOSITORY Performed at [facility] APPROVED BY: Dennis Amin MD PORTABLE FRONTAL CHEST, 1439 HOURS: CLINICAL INDICATION: Status post CABG. COMPARISON: Chest radiograph 02/07/[address] chest study 12/07/2017. Multiple wires and tubes overlie the chest. There is an endotracheal tube in profile with the tracheal airway terminating approximately 3 cm above the beth. There is an enteric tube extending into t he stomach. The tip is not included. There is a right internal jugular [place] catheter terminating in profile with the pulmonary outflow tract. There is a left thoracostomy tube and possible mediastinal drain. Lung volumes are diminished with accentuation of infrahilar bronchovascular markings. There is left basilar opacity. The lateral costophrenic angles are clear. The cardiac and mediastinal silhouette appears stable.. There are findings of median sternotomy. IMPRESSION: Status post median sternotomy. Left basilar opacity suggesting postoperative atelectasis. Life-support equipment as noted. A wet reading is made available at time of dictation as requested. BLOOD GAS ARTERIAL Collected: 02/15/2018 Status: F Source: [facility] 2:45 [facility] SYSTEM REPOSITORY TYPE CODE TESTS RESULT OUT OF REFERENCE UNITS RANGE LAB FIO2(LOINC % ) FIO2 Value Not Given LAB TEMPA(LOIN C) Temperature 37.0 LAB PH(LOINC) 7.350-7.450 Low pH Arterial alert 7.189 LAB PCO2(LOINC 36.0-46.0 mm Hg ) PCO2 High Arterial 64.4 LAB PO2(LOINC) 85.0-96.0 mm Hg PO2 High Arterial 100.0 LAB HCO3A(LOIN 22.0-26.0 mEq/L C) HCO3- 24.0 LAB O2%A(LOINC 95.0-98.0 % ) O2% Sat Arterial 95.8 LAB BASEX(LOIN -2.5 to 2.5 mEq/L C) Base Excess -4.6 Performed By: #### ABG #### [place] [address] BASIC PANEL Collected: 02/15/2018 Status: F Source: [facility] 2:[address] [place] [address] SYSTEM REPOSITORY TYPE CODE TESTS RESULT OUT OF REFERENCE UNITS RANGE LAB NA(LOINC) 136-145 mEq/L Sodium Blood 142 LAB K(LOINC) 3.5-5.1 mEq/L Potassium Blood 3.6 LAB CL(LOINC) 98-107 mEq/L Chloride High Blood 110 LAB CO2(LOINC) 21-32 mEq/L CO2 Blood 27 LAB GLU(LOINC) 70-99 mg/dL Glucose High Blood 133 LAB BUN(LOINC) 7-18 mg/dL BUN Blood 9 LAB CREA(LOINC 0.51-0.95 mg/dL ) Creatinine Blood 0.53 LAB CA(LOINC) 8.5-10.1 mg/dL Low Calcium Blood 7.3 LAB ANGAP(LOIN 8-16 C) Anion Gap 9 Performed By: #### P8 #### [facility] [address] [place] [address] MAGNESIUM BLOOD Collected: 02/15/2018 Status: F Source: [facility] 2:45 PM [facility]ALTH SYSTEM REPOSITORY TYPE CODE TESTS RESULT OUT OF REFERENCE UNITS RANGE LAB MAG(LOINC) 1.6-2.6 mg/dL Magnesium Blood 2.4 Performed By: #### MAG #### [facility] [address] [place] [address] MDRD GFR Collected: 02/15/2018 Status: F Source: [facility] 2:45 PM [facility]ALTH SYSTEM REPOSITORY TYPE CODE TESTS RESULT OUT OF RANGE REFERENCE UNITS LAB GFRFN(LOINC >60mL/min/1.73m ) 2 eGFR >60 Result Comment: If the patient is , multiply the result by 1.210. Performed By: #### GFR #### [facility] [address] [place] [address] PROTIME Collected: 02/15/2018 Status: F Source: [facility] 2: PM [facility]ALTH SYSTEM REPOSITORY TYPE CODE TESTS RESULT OUT OF REFERENCE UNITS RANGE LAB PTI(LOINC) 9.3-11.9 sec Prothrombin Time 11.2 LAB INR(LOINC) INR 1.07 Result Comment: Standard Therapy 2.0-3.0 High Dose 2.5-3.5 Performed By: #### PT #### [facility] [address] [place] [address] ACTIVATED PTT Collected: 02/15/2018 Status: F Source: [facility] 2:45 PM [facility]ALTH SYSTEM REPOSITORY TYPE CODE TESTS RESULT OUT OF REFERENCE UNITS RANGE LAB APTT(LOINC 22.0-34.0 sec ) Activated PTT 28.2 Performed By: #### APTT #### [facility] [address] [place] [address] HEMOGRAM Collected: 02/15/2018 Status: F Source: [facility] 2:45 PM [facility]ALTH SYSTEM REPOSITORY TYPE CODE TESTS RESULT OUT OF REFERENCE UNITS RANGE LAB WBC(LOINC) 3.98-10.04 thou/cmm WBC High alert 27.46 LAB RBC(LOINC) 3.93-5.22 mil/cmm Low RBC 3.76 LAB HGB(LOINC) 11.2-15.7 g/dL Low Hgb 9.7 LAB HCT(LOINC) 34.1-44.9 % Low Hct 31.7 LAB MCV(LOINC) 79.4-94.8 fl MCV 84.3 LAB MCH(LOINC) 25.6-32.2 pg MCH 25.8 LAB MCHC(LOINC 31.6-34.8 % ) Low MCHC 30.6 LAB RDW(LOINC) 11.7-14.4 % RDW High 15.5 LAB RDWSD(LOIN 36.4-46.3 fl C) RDW High SD 46.5 LAB PLT(LOINC) 182-369 thou/cmm Platelet 278 LAB MPV(LOINC) 9.4-12.3 fl Low MPV 8.6 LAB NRBCR(LOIN 0.0-0.2 % C) Nucleated RBC % 0.1 LAB NRBCA(LOIN 0.00-0.01 thou/cmm C) High Nucleated RBC 0.02 Absolute Performed By: #### CBC1 #### [place] [address] GLUCOSE METER Collected: 02/15/2018 Status: F Source: [facility] 2:35 PM [facility]ALTH SYSTEM REPOSITORY TYPE CODE TESTS RESULT OUT OF REFERENCE UNITS RANGE LAB GLUBL(LOINC 70-99 mg/dL ) High Glucose Meter 135 Performed By: #### GLMET #### [place] [address] CG8 ARTERIAL PANEL Collected: 02/15/2018 Status: F Source: [facility] (I-STAT) 1:00 PM [facility]ALTH SYSTEM REPOSITORY TYPE CODE TESTS RESULT OUT OF REFERENCE UNITS RANGE LAB PHISA(LOIN 7.350-7.450 C) Low pH (i-STAT) 7.270 LAB PC2IA(LOIN 35.0-45.0 mm Hg C) PCO2 High (i-STAT) 56.1 LAB PO2IA(LOIN 80.0-105.0 mm Hg C) PO2 High (i-STAT) 466.0 LAB HC3IA(LOIN 22.0-26.0 mmol/L C) HCO3- (i-STAT) 25.7 LAB BSXIA(LOIN -2.0 to 3.0 mmol/L C) Base Excess (i-STAT) -1.0 LAB SO2IA(LOIN 95.0-98.0 % C) O2% Sat. High (i-STAT) 100.0 LAB TC2IA(LOIN 23-27 mmol/L C) Total CO2 (i-STAT) 27 LAB GLUIA(LOIN 70-99 mg/dL C) Glucose High (i-STAT) 234 LAB NAI2A(LOIN 138-146 mmol/L C) Sodium (i-STAT) 139 LAB KIS2A(LOIN 3.5-4.9 mmol/L C) Potassium 3.6 (i-STAT) LAB ICALA(LOIN 4.5-5.3 mg/dL C) Ionized Calcium (iSTAT) 4.7 LAB HCTIA(LOIN 38-51 %PCV C) Low Hematocrit 22 (i-STAT) LAB HGBIA(LOIN 12.0-17.0 g/dL C) Low Hemoglobin 7.5 (i-STAT) Performed By: #### CG8IA #### [place] [address] ACT ARTERIAL PANEL Collected: 02/15/2018 Status: F Source: [facility] (I-STAT) 1:00 PM [facility]ALTH SYSTEM REPOSITORY TYPE CODE TESTS RESULT OUT OF REFERENCE UNITS RANGE LAB ACTAI(LOINC 74-137 sec ) [place] ACT ( 125 i-STAT) Performed By: #### ACTIA #### [place] [address] PLATELET Collected: 02/15/2018 Status: F Source: [facility] 12:35 PM [facility]ALTH SYSTEM REPOSITORY TYPE CODE TESTS RESULT OUT OF REFERENCE UNITS RANGE LAB PLTI(LOINC) 182-369 thou/cmm Platelet 256 Performed By: #### PLTI #### [place] [address] FIBRINOGEN Collected: 02/15/2018 Status: F Source: [facility] 12:35 PM [facility]ALTH SYSTEM REPOSITORY TYPE CODE TESTS RESULT OUT OF REFERENCE UNITS RANGE LAB FIB(LOINC) 180-430 mg/dl Fibrinogen 311 Performed By: #### FIB #### [place] [address] CG8 VENOUS PANEL Collected: 02/15/2018 Status: F Source: [facility] (I-STAT) 12:34 PM [facility]ALTH SYSTEM REPOSITORY TYPE CODE TESTS RESULT OUT OF REFERENCE UNITS RANGE LAB PHISV(LOIN 7.310-7.410 C) pH (i-STAT) 7.314 LAB PC2IV(LOIN 41.0-51.0 mm Hg C) PCO2 (i-STAT) 48.3 LAB PO2IV(LOIN 20.0-50.0 mm Hg C) PO2 (i-STAT) 36.0 LAB HC3IV(LOIN 23.0-28.0 mmol/L C) HCO3- (i-STAT) 24.5 LAB BSXIV(LOIN -2.0 to 3.0 mmol/L C) Base Excess (i-STAT) -2.0 LAB SO2IV(LOIN 35.0-85.0 % C) O2% Sat. (i-STAT) 63.0 LAB TC2IV(LOIN 24-29 mmol/L C) Total CO2 (i-STAT) 26 LAB GLUIV(LOIN 70-99 mg/dL C) Glucose High (i-STAT) 266 LAB NAI2V(LOIN 138-146 mmol/L C) Sodium (i-STAT) 139 LAB KIS2V(LOIN 3.5-4.9 mmol/L C) Potassium 4.1 (i-STAT) LAB ICALV(LOIN 4.5-5.3 mg/dL C) Low Ionized Calcium (iSTAT) 4.1 LAB HCTIV(LOIN 38-51 %PCV C) Low alert Hematocrit 18 (i-STAT) LAB HGBIV(LOIN 12.0-17.0 g/dL C) Low alert Hemoglobin 6.1 (i-STAT) Performed By: #### CG8IV #### [place] [address] GLUCOSE METER Collected: 02/15/2018 Status: F Source: [facility] 6:59 AM [facility]ALTH SYSTEM REPOSITORY TYPE CODE TESTS RESULT OUT OF REFERENCE UNITS RANGE LAB GLUBL(LOINC 70-99 mg/dL ) Glucose Meter 92 Result Comment: RN NOTIFIED MD NOTIFIED Performed By: #### GLMET #### [address] [address] HGB A1C Collected: 02/15/2018 Status: F Source: [facility] 4:45 AM [facility]ALTH SYSTEM REPOSITORY TYPE CODE TESTS RESULT OUT OF RANGE REFERENCE UNITS LAB A1C5(LOINC) 4.2-6.3 % High Hgb A1c 8.3 Result Comment: Method is National Glycohemoglobin Standardization Program (NGSP) compliant. LAB ESAVG(LOINC) mg/dl Est. Avg Glucose 192 Performed By: #### HA1C #### [facility] [address] [place] [address] GLUCOSE METER Collected: 02/14/2018 Status: F Source: [facility] 8:23 PM [facility]ALTH SYSTEM REPOSITORY TYPE CODE TESTS RESULT OUT OF REFERENCE UNITS RANGE LAB GLUBL(LOINC 70-99 mg/dL ) High Glucose Meter 136 Performed By: #### GLMET #### [place] [address] ABO/RH CONFIRMATION Collected: 02/14/2018 Status: F Source: [facility] 6:10 PM [facility]ALTH SYSTEM REPOSITORY TYPE CODE TESTS RESULT OUT OF REFERENCE UNITS RANGE LAB ABO(LOINC) A ABO Group LAB BARREL INSPECTOR(LOINC) RH Type Positive Performed By: #### ABOCK #### [place] [address] GLUCOSE METER Collected: 02/14/2018 Status: F Source: [facility] 4:50 PM [facility]ALTH SYSTEM REPOSITORY TYPE CODE TESTS RESULT OUT OF REFERENCE UNITS RANGE LAB GLUBL(LOINC 70-99 mg/dL ) Glucose Meter 79 Result Comment: RN NOTIFIED Performed By: #### GLMET #### [place] [address] HEMOGRAM Collected: 02/14/2018 Status: F Source: [facility] 1:30 PM [facility] SYSTEM REPOSITORY TYPE CODE TESTS RESULT OUT OF REFERENCE UNITS RANGE LAB WBC(LOINC) 3.98-10.04 thou/cmm WBC 9.94 LAB RBC(LOINC) 3.93-5.22 mil/cmm Low RBC 3.84 LAB HGB(LOINC) 11.2-15.7 g/dL Low Hgb 9.5 LAB HCT(LOINC) 34.1-44.9 % Low Hct 31.5 LAB MCV(LOINC) 79.4-94.8 fl MCV 82.0 LAB MCH(LOINC) 25.6-32.2 pg Low MCH 24.7 LAB MCHC(LOINC) 31.6-34.8 % Low MCHC 30.2 LAB RDW(LOINC) 11.7-14.4 % High RDW 16.3 LAB RDWSD(LOINC 36.4-46.3 fl ) High RDW SD 47.8 LAB PLT(LOINC) 182-369 thou/cmm Platelet 273 LAB MPV(LOINC) 9.4-12.3 fl Low MPV 8.6 Performed By: #### CBC1 #### [place] [address] PROTIME Collected: 02/14/2018 Status: F Source: [facility] 1[facility] REPOSITORY TYPE CODE TESTS RESULT OUT OF REFERENCE UNITS RANGE LAB PTI(LOINC) 9.3-11.9 sec Prothrombin Time 10.0 LAB INR(LOINC) INR 0.93 Result Comment: Standard Therapy 2.0-3.0 High Dose 2.5-3.5 Performed By: #### PT #### [place] [address] ACTIVATED PTT Collected: 02/14/2018 Status: F Source: [facility] 1:[facility] REPOSITORY TYPE CODE TESTS RESULT OUT OF REFERENCE UNITS RANGE LAB APTT(LOINC 22.0-34.0 sec ) Activated PTT 31.4 Performed By: #### APTT #### [place] [address] BASIC PANEL Collected: 02/14/2018 Status: F Source: [address] [facility] SYSTEM REPOSITORY TYPE CODE TESTS RESULT OUT OF REFERENCE UNITS RANGE LAB NA(LOINC) 136-145 mEq/L Low Sodium Blood 133 LAB K(LOINC) 3.5-5.1 mEq/L Potassium Blood 3.8 LAB CL(LOINC) 98-107 mEq/L Chloride Blood 101 LAB CO2(LOINC) 21-32 mEq/L CO2 Blood 28 LAB GLU(LOINC) 70-99 mg/dL Glucose High Blood 159 LAB BUN(LOINC) 7-18 mg/dL BUN Blood 11 LAB CREA(LOINC 0.51-0.95 mg/dL ) Creatinine Blood 0.51 LAB CA(LOINC) 8.5-10.1 mg/dL Calcium Blood 8.6 LAB ANGAP(LOIN 8-16 C) Anion Gap 8 Performed By: #### P8 #### [place] [address] MDRD GFR Collected: 02/14/2018 Status: F Source: [facility] 1:30 PM [facility] SYSTEM REPOSITORY TYPE CODE TESTS RESULT OUT OF RANGE REFERENCE UNITS LAB GFRFN(LOINC >60mL/min/1.73m ) 2 eGFR >60 Result Comment: If the patient is , multiply the result by 1.210. Performed By: #### GFR #### [place] [address] TYPE AND SCREEN Collected: 02/14/2018 Status: F Source: [facility] 1:30 PM [facility]ALTH SYSTEM REPOSITORY TYPE CODE TESTS RESULT OUT OF REFERENCE UNITS RANGE LAB ABO(LOINC) A ABO Group LAB BARREL INSPECTOR(LOINC ) RH Type Positive LAB ABSCR(LOIN C) Antibody NEGATIVE Screen LAB BBCMT(LOIN C) Comment See Below Result Comment: Screen &/or Xmatch expires in 3 days at 12 midnight. Redraw patient at that time. Performed By: #### T&S #### [place] [address] RBC PRODUCTS Collected: 02/14/2018 Status: F Source: [facility] 1:30 PM [facility]ALTH SYSTEM REPOSITORY TYPE CODE TESTS RESULT OUT OF REFERENCE UNITS RANGE LAB UNIT1(LOINC ) Xmatch Unit 1 see below Result Comment: Compatible LAB UNIT2(LOINC) Xmatch Unit 2 see below Result Comment: Compatible Performed By: #### RBCPS #### [place] [address] GLUCOSE METER Collected: 02/14/2018 Status: F Source: [facility] 11:50 AM [facility]ALTH SYSTEM REPOSITORY TYPE CODE TESTS RESULT OUT OF REFERENCE UNITS RANGE LAB GLUBL(LOINC 70-99 mg/dL ) High Glucose Meter 208 Result Comment: RN NOTIFIED Performed By: #### GLMET #### [place] [address] URINALYSIS, REFLEX Collected: 02/14/2018 Status: F Source: [facility] 11:40 AM [facility]ALTH SYSTEM REPOSITORY TYPE CODE TESTS RESULT OUT OF RANGE REFERENCE UNITS LAB COLOR(LOIN C) Urine Color YELLOW LAB APPUR(LOIN C) Urine Appearance CLOUDY LAB GLUUR(LOIN Negative mg/dL C) Abnormal Glucose Urine 500 LAB KETON(LOIN Negative mg/dL C) Ketone Urine NEGATIVE LAB HGBUR(LOIN Negative C) Abnormal Hemoglobin,Urin MODERATE e LAB PROTU(LOIN Negative mg/dL C) Abnormal Protein Urine TRACE LAB NITR(LOINC Negative ) Nitrite reflex NEGATIVE LAB BILIU(LOIN Negative C) Bilirubin Urine NEGATIVE LAB SPG(LOINC) 1.005-1.030 Specific 1.020 [place], Ur LAB PHUR(LOINC 5.0-8.0 ) pH,Urine 7.5 LAB UROBI(LOIN 0.0-1.0 EU/dL C) Urobilinogen,Ur 1.0 LAB LEUKR(LOIN Negative C) Abnormal Leukocyte LARGE esterase LAB RBCU1(LOIN 0.0-5.0 /hpf C) High RBC,Urine 7.0-12 LAB WBCR(LOINC 0.00-5.00 /hpf ) High WBC, reflex 201.40 LAB EPIT1(LOIN 0.0-5.0 /hpf C) High Ep Cells Urine 5.9 LAB BACT1(LOIN None C) Abnormal Bacteria Urine 2+ LAB HYCA1(LOIN 0.0-1.0 /lpf C) High Hyaline Cast 1.3 LAB REFLX(LOIN C) Reflex Comment see below Result Comment: A urine culture has been ordered based on established laboratory criteria. Performed By: #### URIN #### [place] [address] Observed: 02/14/2018 Status: F Source: [facility] CULT URINE 11:40 AM [facility]ALTH SYSTEM REPOSITORY Test performed at [facility] <10,000 CFU/ML mixed growth. No further identification or susceptibility testing will be performed. Please submit a new specimen. Plates will be held for 5 days. Performed By: #### C_URI #### [place] [address] GLUCOSE METER Collected: 02/14/2018 Status: F Source: [facility] 7:12 AM [facility]ALTH SYSTEM REPOSITORY TYPE CODE TESTS RESULT OUT OF REFERENCE UNITS RANGE LAB GLUBL(LOINC 70-99 mg/dL ) High Glucose Meter 197 Result Comment: RN NOTIFIED Performed By: #### GLMET #### [facility] [address] [place], [place] [address] GLUCOSE METER Collected: 02/13/2018 Status: F Source: [facility] 11:23 PM [facility] SYSTEM REPOSITORY TYPE CODE TESTS RESULT OUT OF REFERENCE UNITS RANGE LAB GLUBL(LOINC 70-99 mg/dL ) High Glucose Meter 210 Performed By: #### GLMET #### [facility] [address] [place], [place] [address] GLUCOSE METER Collected: 02/13/2018 Status: F Source: [facility] 9:08 PM [facility] SYSTEM REPOSITORY TYPE CODE TESTS RESULT OUT OF REFERENCE UNITS RANGE LAB GLUBL(LOINC 70-99 mg/dL ) Glucose Meter 71 Result Comment: RN NOTIFIED Performed By: #### GLMET #### [facility] [address] [place], [place] [address] GLUCOSE METER Collected: 02/13/2018 Status: F Source: [facility] 8:37 PM [facility] SYSTEM REPOSITORY TYPE CODE TESTS RESULT OUT OF REFERENCE UNITS RANGE LAB GLUBL(LOINC 70-99 mg/dL ) Low Glucose Meter 59 Performed By: #### GLMET #### [facility] [address] [place], [place] [address] GLUCOSE METER Collected: 02/13/2018 Status: F Source: [facility] 7:30 PM [facility] SYSTEM REPOSITORY TYPE CODE TESTS RESULT OUT OF REFERENCE UNITS RANGE LAB GLUBL(LOINC 70-99 mg/dL ) Low Glucose Meter 50 Performed By: #### GLMET #### [facility] [address] [place], [place] [address] BLOOD GAS ARTERIAL Collected: 02/13/2018 Status: F Source: [facility] 4:30 PM [facility] SYSTEM REPOSITORY TYPE CODE TESTS RESULT OUT OF REFERENCE UNITS RANGE LAB TEMPA(LOIN C) Temperature 37.0 LAB PH(LOINC) 7.350-7.450 pH Arterial 7.406 LAB PCO2(LOINC 36.0-46.0 mm Hg ) PCO2 Arterial 44.1 LAB PO2(LOINC) 85.0-96.0 mm Hg Low PO2 Arterial 62.2 LAB HCO3A(LOIN 22.0-26.0 mEq/L C) HCO3- High 27.1 LAB O2%A(LOINC 95.0-98.0 % ) Low O2% Sat Arterial 90.1 LAB BASEX(LOIN -2.5 to 2.5 mEq/L C) Base Excess 2.1 LAB FIO2(LOINC % ) FIO2 21 Performed By: #### ABG #### [facility] [address] [place] [address] GLUCOSE METER Collected: 02/13/2018 Status: F Source: [facility] 4:22 PM [facility] SYSTEM REPOSITORY TYPE CODE TESTS RESULT OUT OF REFERENCE UNITS RANGE LAB GLUBL(LOINC 70-99 mg/dL ) High Glucose Meter 111 Performed By: #### GLMET #### [facility] [address] [place] [address] 12 LEAD ELECTROCARDIOGRAM Observed: 02/13/2018 Status: F Source: [facility] 3:33 PM [facility] REPOSITORY [facility] Cardiovascular Services [address] [place] [id number] 12 Lead EKG 02/06/18 0033 MR#: [id number] Acct: [id number] Name: VENITA SMITH Rep #: [id number] : 1950 67 From: Tong Escamilla MD Attending Dr: Ryan Roman MD Status: DIS IN Ordering Dr: Ryan Roman MD Date: 02/05/18 Location: ICU Sex: F C Admitted: 02/04/18 Test Reason : DYSRHYTHMIA Blood Pressure : / mmHG Vent. Rate : 092 BPM Atrial Rate : 092 BPM P-R Int : 152 ms QRS Dur : 080 ms QT Int : 392 ms P-R-T Axes : 038 040 090 degrees QTc Int : 484 ms Normal sinus rhythm Normal ECG Confirmed by FELIX HOYOS, TONG ([id number]), acquisitions editor JEFFREY ANGLIN ([id number]) on 02/13/2018 3:33:45 PM Referred By: ABEL Confirmed By:TONG ESCAMILLA MD 02/13/18 1533 Date Tong Escamilla MD CC: Ryan Roman MD; Baron Pike MD Signed GLUCOSE METER Collected: 02/13/2018 Status: F Source: [facility] 11:21 AM [facility] SYSTEM REPOSITORY TYPE CODE TESTS RESULT OUT OF REFERENCE UNITS RANGE LAB GLUBL(LOINC 70-99 mg/dL ) High Glucose Meter 104 Performed By: #### GLMET #### [facility] [address] [place] [address] GLUCOSE METER Collected: 02/13/2018 Status: F Source: [facility] 7:19 AM [facility] SYSTEM REPOSITORY TYPE CODE TESTS RESULT OUT OF REFERENCE UNITS RANGE LAB GLUBL(LOINC 70-99 mg/dL ) Glucose Meter 83 Performed By: #### GLMET #### [facility] [address] [place] [address] GLUCOSE METER Collected: 02/12/2018 Status: F Source: [facility] 8:22 PM [facility] SYSTEM REPOSITORY TYPE CODE TESTS RESULT OUT OF REFERENCE UNITS RANGE LAB GLUBL(LOINC 70-99 mg/dL ) High Glucose Meter 118 Performed By: #### GLMET #### [facility] [address] [place] [address] GLUCOSE METER Collected: 02/12/2018 Status: F Source: [facility] 4:19 PM [facility] SYSTEM REPOSITORY TYPE CODE TESTS RESULT OUT OF REFERENCE UNITS RANGE LAB GLUBL(LOINC 70-99 mg/dL ) High Glucose Meter 151 Result Comment: RN NOTIFIED Performed By: #### GLMET #### [place] [address] Observed: 02/12/2018 Status: F Source: [facility] ROD 4:00 PM [facility] SYSTEM [facility] REPOSITORY Test performed at [facility] No anaerobic organisms cultured Rare WBC No organisms seen ORGANISM: Staphylococcus lugdunensis (ID: 1) Rare ORGANISM: Aspergillus species not fumigatus (ID: 2) Rare No further identification to follow. Plates will be held for 5 days. Performed By: #### C_ANA #### [facility] [address] [place] [address] Observed: 02/12/2018 Status: F Source: [facility] ROD 3:45 PM [facility] REPOSITORY Test performed at [facility] No growth Few WBC No organisms seen Performed By: #### C_ANA #### [place] [address] Observed: 02/12/2018 Status: F Source: [facility] CULT AND SMR ROD 3:45 PM [facility] REPOSITORY Test performed at [facility] No growth Few WBC No organisms seen Performed By: #### C_ANA #### [facility] [address] [place] [address] GLUCOSE METER Collected: 02/12/2018 Status: F Source: [facility] 11:31 AM [facility] SYSTEM REPOSITORY TYPE CODE TESTS RESULT OUT OF REFERENCE UNITS RANGE LAB GLUBL(LOINC 70-99 mg/dL ) High Glucose Meter 146 Result Comment: RN NOTIFIED Performed By: #### GLMET #### [facility] [address] [place] [address] GLUCOSE METER Collected: 02/12/2018 Status: F Source: [facility] 5:58 AM [facility] SYSTEM REPOSITORY TYPE CODE TESTS RESULT OUT OF REFERENCE UNITS RANGE LAB GLUBL(LOINC 70-99 mg/dL ) High Glucose Meter 182 Performed By: #### GLMET #### [place] [address] GLUCOSE METER Collected: 02/12/2018 Status: F Source: [facility] 3:10 AM [facility] SYSTEM REPOSITORY TYPE CODE TESTS RESULT OUT OF REFERENCE UNITS RANGE LAB GLUBL(LOINC 70-99 mg/dL ) High Glucose Meter 135 Performed By: #### GLMET #### [place] [address] SURGICAL TISSUE EXAM Observed: 02/12/2018 Status: F Source: [facility] 12:00 AM [facility] SYSTEM REPOSITORY Test performed at [place] [address] NAME: VENITA SMITH REQUESTING: FABBY KAUR D.P.M. COPY TO: HOLLIS MAGDALENO FINAL DIAGNOSIS: HALLUX BONE, EXCISION - FRAGMENT OF BONE AND ATTACHED FIBROVASCULAR TISSUES WITH AREAS OF ACUTE AND CHRONIC INFLAMMATION AND NECROSIS. OPERATIVE PROCEDURE: Debridement subq tissue lower extremity each additional 20 sq. cm or part thereof CLINICAL INFORMATION: Wound abscess, initial counter [[id number]] GROSS DESCRIPTION: Hallux bone Received in formalin labeled hallux bone is a minute segment of spangler-red hemorrhagic and softened bone which measures 0.6 x 0.4 x 0.2 cm. It is totally submitted in one cassette. BMP:liane KWONG M.D., PATHOLOGIST (Electronic signature on file) Signed out: 02/14/2018 14:18 PRINTED: 02/14/2018 Page 1 of 1 Performed By: #### SURG #### [facility] [address] [place], [place] [address] GLUCOSE METER Collected: 02/11/2018 Status: F Source: [facility] 8:15 PM [facility] SYSTEM REPOSITORY TYPE CODE TESTS RESULT OUT OF REFERENCE UNITS RANGE LAB GLUBL(LOINC 70-99 mg/dL ) High Glucose Meter 189 Performed By: #### GLMET #### [facility] [address], [place] [address] GLUCOSE METER Collected: 02/11/2018 Status: F Source: [facility] 4:51 PM [facility]ALTH [facility] REPOSITORY TYPE CODE TESTS RESULT OUT OF REFERENCE UNITS RANGE LAB GLUBL(LOINC 70-99 mg/dL ) Glucose Meter 80 Result Comment: RN NOTIFIED Performed By: #### GLMET #### [facility] [address], [place] [address] GLUCOSE METER Collected: 02/11/2018 Status: F Source: [facility] 4:23 PM [facility] REPOSITORY TYPE CODE TESTS RESULT OUT OF REFERENCE UNITS RANGE LAB GLUBL(LOINC 70-99 mg/dL ) Low Glucose Meter 58 Result Comment: RN NOTIFIED Performed By: #### GLMET #### [facility] [address], [place] [address] GLUCOSE METER Collected: 02/11/2018 Status: F Source: [facility] 11:56 AM [facility]ALTH [facility] REPOSITORY TYPE CODE TESTS RESULT OUT OF REFERENCE UNITS RANGE LAB GLUBL(LOINC 70-99 mg/dL ) High Glucose Meter 308 Result Comment: RN NOTIFIED Performed By: #### GLMET #### [facility] [facility] [address], [place] [address] GLUCOSE METER Collected: 02/11/2018 Status: F Source: [facility] 7:37 AM [facility] REPOSITORY TYPE CODE TESTS RESULT OUT OF REFERENCE UNITS RANGE LAB GLUBL(LOINC 70-99 mg/dL ) High Glucose Meter 188 Result Comment: RN NOTIFIED Performed By: #### GLMET #### [address] [address] HEMOGRAM/DIFF Collected: 02/11/2018 Status: F Source: [facility] 6:38 AM [facility] REPOSITORY TYPE CODE TESTS RESULT OUT OF REFERENCE UNITS RANGE LAB WBC(LOINC) 3.98-10.04 thou/cmm WBC High 10.47 LAB RBC(LOINC) 3.93-5.22 mil/cmm RBC 4.14 LAB HGB(LOINC) 11.2-15.7 g/dL Low Hgb 10.5 LAB HCT(LOINC) 34.1-44.9 % Low Hct 33.9 LAB MCV(LOINC) 79.4-94.8 fl MCV 81.9 LAB MCH(LOINC) 25.6-32.2 pg Low MCH 25.4 LAB MCHC(LOINC 31.6-34.8 % ) Low MCHC 31.0 LAB RDW(LOINC) 11.7-14.4 % RDW High 15.9 LAB RDWSD(LOIN 36.4-46.3 fl C) RDW SD High 46.8 LAB PLT(LOINC) 182-369 thou/cmm Platelet 263 LAB MPV(LOINC) 9.4-12.3 fl Low MPV 8.8 LAB SEG(LOINC) % Seg Neutrophil 77.1 LAB IGRE(LOINC % ) Immature Grans 0.50 LAB LYMPH(LOIN % C) Lymphocyte 11.7 LAB MNO(LOINC) % Monocyte 8.5 LAB EOSIN(LOIN % C) Eosinophil 2.1 LAB BASO(LOINC % ) Basophil 0.1 LAB SEGN(LOINC 1.56-6.13 thou/cmm ) Abs. High Neut (ANC) 8.07 LAB IGAB(LOINC 0.00-0.05 thou/cmm ) Abs Immature Grans 0.05 LAB LYMN(LOINC 1.18-3.74 thou/cmm ) Abs. Lymph 1.22 LAB MONON(LOIN 0.27-0.70 thou/cmm C) Abs. High Floyd 0.89 LAB EOSN(LOINC 0.00-0.31 thou/cmm ) Abs. Eosin 0.22 LAB BASON(LOIN 0.01-0.08 thou/cmm C) Abs. Baso 0.01 Performed By: #### CBCD1 #### [facility] [address] [place] [id number] BASIC PANEL Collected: 02/11/2018 Status: F Source: [facility] 6:38 AM [facility] REPOSITORY TYPE CODE TESTS RESULT OUT OF REFERENCE UNITS RANGE LAB NA(LOINC) 136-145 mEq/L Low Sodium Blood 134 LAB K(LOINC) 3.5-5.1 mEq/L Potassium Blood 4.1 LAB CL(LOINC) 98-107 mEq/L Chloride Blood 100 LAB CO2(LOINC) 21-32 mEq/L CO2 Blood 32 LAB GLU(LOINC) 70-99 mg/dL Glucose High Blood 169 LAB BUN(LOINC) 7-18 mg/dL BUN Blood 13 LAB CREA(LOINC 0.51-0.95 mg/dL ) Creatinine Blood 0.62 LAB CA(LOINC) 8.5-10.1 mg/dL Calcium Blood 8.8 LAB ANGAP(LOIN 8-16 C) Low Anion Gap 6 Performed By: #### P8 #### [place] [address] MDRD GFR Collected: 02/11/2018 Status: F Source: [facility] 6:38 AM [facility] REPOSITORY TYPE CODE TESTS RESULT OUT OF RANGE REFERENCE UNITS LAB GFRFN(LOINC >60mL/min/1.73m ) 2 eGFR >60 Result Comment: If the patient is , multiply the result by 1.210. Performed By: #### GFR #### [place] [address] GLUCOSE METER Collected: 02/10/2018 Status: F Source: [facility] 10:01 PM [facility] REPOSITORY TYPE CODE TESTS RESULT OUT OF REFERENCE UNITS RANGE LAB GLUBL(LOINC 70-99 mg/dL ) High Glucose Meter 124 Result Comment: RN NOTIFIED Performed By: #### GLMET #### [place] [address] GLUCOSE METER Collected: 02/10/2018 Status: F Source: [facility] 8:09 PM [facility] REPOSITORY TYPE CODE TESTS RESULT OUT OF REFERENCE UNITS RANGE LAB GLUBL(LOINC 70-99 mg/dL ) Low Glucose Meter 65 Performed By: #### GLMET #### [place] [address] GLUCOSE METER Collected: 02/10/2018 Status: F Source: [facility] 4:57 PM [facility] REPOSITORY TYPE CODE TESTS RESULT OUT OF REFERENCE UNITS RANGE LAB GLUBL(LOINC 70-99 mg/dL ) High Glucose Meter 103 Performed By: #### GLMET #### [facility] [address], [place] [address] GLUCOSE METER Collected: 02/10/2018 Status: F Source: [facility] 11:02 AM [facility] REPOSITORY TYPE CODE TESTS RESULT OUT OF REFERENCE UNITS RANGE LAB GLUBL(LOINC 70-99 mg/dL ) High Glucose Meter 291 Result Comment: RN NOTIFIED Performed By: #### GLMET #### [facility] [address], [place] [address] GLUCOSE METER Collected: 02/10/2018 Status: F Source: [facility] 7:35 AM [facility] REPOSITORY TYPE CODE TESTS RESULT OUT OF REFERENCE UNITS RANGE LAB GLUBL(LOINC 70-99 mg/dL ) High Glucose Meter 157 Result Comment: RN NOTIFIED Performed By: #### GLMET #### [facility] [address] [place], [place] [address] GLUCOSE METER Collected: 02/09/2018 Status: F Source: [facility] 7:56 PM [facility] REPOSITORY TYPE CODE TESTS RESULT OUT OF REFERENCE UNITS RANGE LAB GLUBL(LOINC 70-99 mg/dL ) High Glucose Meter 136 Performed By: #### GLMET #### [facility] [address], [place] [address] GLUCOSE METER Collected: 02/09/2018 Status: F Source: [facility] 4:16 PM [facility] REPOSITORY TYPE CODE TESTS RESULT OUT OF REFERENCE UNITS RANGE LAB GLUBL(LOINC 70-99 mg/dL ) High Glucose Meter 229 Performed By: #### GLMET #### [facility] [address] [place], [place] [address] GLUCOSE METER Collected: 02/09/2018 Status: F Source: [facility] 11:15 AM [facility] REPOSITORY TYPE CODE TESTS RESULT OUT OF REFERENCE UNITS RANGE LAB GLUBL(LOINC 70-99 mg/dL ) High Glucose Meter 334 Result Comment: RN NOTIFIED Performed By: #### GLMET #### [facility] [address], [place] [address] GLUCOSE METER Collected: 02/09/2018 Status: F Source: [facility] 7:24 AM [facility] REPOSITORY TYPE CODE TESTS RESULT OUT OF REFERENCE UNITS RANGE LAB GLUBL(LOINC 70-99 mg/dL ) High Glucose Meter 220 Result Comment: RN NOTIFIED Performed By: #### GLMET #### [facility] [address] [place] [address] VANCOMYCIN,TROUGH Collected: Status: F Source: [facility] 02/08/2018 9:39 PM [facility] REPOSITORY TYPE CODE TESTS RESULT OUT OF RANGE REFERENCE UNITS LAB VANCT(LOINC 10.0-20.0 mg/L ) 18.8 Vancomycin,T rough Performed By: #### VANCT #### [facility] [address] [place] [address] GLUCOSE METER Collected: 02/08/2018 Status: F Source: [facility] 8:24 PM [facility] REPOSITORY TYPE CODE TESTS RESULT OUT OF REFERENCE UNITS RANGE LAB GLUBL(LOINC 70-99 mg/dL ) High Glucose Meter 166 Performed By: #### GLMET #### [facility] [address] [place] [address] GLUCOSE METER Collected: 02/08/2018 Status: F Source: [facility] 4:24 PM [facility] REPOSITORY TYPE CODE TESTS RESULT OUT OF REFERENCE UNITS RANGE LAB GLUBL(LOINC 70-99 mg/dL ) High Glucose Meter 173 Performed By: #### GLMET #### [facility] [address] [place] [address] ARTERIAL UP/LOW/REST/MANUEVER Observed: 02/08/2018 Status: F Source: [facility] 12:20 PM [facility] SYSTEM REPOSITORY Performed at [facility] APPROVED BY: JOSI MUNOZ MD EXAM TITLE: BILATERAL LOWER EXTREMITY DOM AND PVR DATE:02/08/2018 12:00 CLINICAL INDICATION/HISTORY: Atherosclerotic heart disease TECHNIQUE: FINDINGS: When looking the right lower extremity, the pressure the right PT is 196 the pressure the right DP is 181. The pressure the right brachial arteries 157. This correlates an index of 1.21 the right PT a nd 1.12 to the right DP. When looking the tracing the level the ankle, the patient is a sharp upstroke, prompt down stroke, loss of dicrotic notch. When looking the left lower extremity, the pressure the left PT is 189 the pressure the left DP is 197. The pressure the left brachial arteries 162. This correlates an index of 1.17 at the left PT and 1.2 to the left DP. When looking the tracing the level the ankle, the patient is a sharp upstroke, prompt downstroke, and loss of dicrotic notch. IMPRESSION: On the basis noninvasive vascular study, the patient has an index of 1.21 the right and 1.22 on the left. This correlates with minimal evidence of significant peripheral vascular disease bilaterally. GLUCOSE METER Collected: 02/08/2018 Status: F Source: [facility] 10:58 AM [facility] REPOSITORY TYPE CODE TESTS RESULT OUT OF REFERENCE UNITS RANGE LAB GLUBL(LOINC 70-99 mg/dL ) High Glucose Meter 285 Performed By: #### GLMET #### [facility] [address] [place] [address] GLUCOSE METER Collected: 02/08/2018 Status: F Source: [facility] 7:50 AM [facility] REPOSITORY TYPE CODE TESTS RESULT OUT OF REFERENCE UNITS RANGE LAB GLUBL(LOINC 70-99 mg/dL ) High Glucose Meter 209 Performed By: #### GLMET #### [facility] [address] [place] [address] CDVI B MODE Observed: 02/08/2018 Status: F Source: [facility] 7:34 AM [facility] REPOSITORY Performed at [facility] APPROVED BY: JOSI MUNOZ MD EXAM TITLE: BILATERAL CAROTID ULTRASOUND DATE:02/08/2018 07:18 CLINICAL INDICATION/HISTORY: Preop CABG TECHNIQUE: Technologist note made of a tortuous distal ICA bilaterally FINDINGS: When looking the right carotid system, maximum velocity in the right common carotid artery 79 cm/s the proximal common carotid artery. In the internal carotid artery the maximum velocities 138 cm/s the distal internal carotid artery. This correlates the ratio of 2.35. There is a very mild degree of calcific plaque in the right carotid system. The vertebral arteries antegrade. When looking the left carotid system, maximum velocity in left common carotid artery is 68 cm/s the distal common carotid artery. In the internal carotid artery the maximum velocities 122 cm/s the mid internal carotid artery. This correlates the ratio 1.78. There is very mild degree of calcific plaque in the left carotid system. Incidentally the velocity at the level the carotid bulb is 22 cm/s on the left. The vertebral arteries antegrade the left. IMPRESSION: On the basis noninvasive vascular study, by velocity criteria alone, there is a 50-69% stenosis of the right internal carotid artery. I suspect velocities may be elevated secondary to tortuosity as the re does not appear to be significant calcific disease. By velocity criteria, there is less than 50% stenosis of the left internal carotid artery. The vertebral arteries are antegrade. Observed: 02/07/2018 Status: F Source: [facility] CULT URINE 9:14 PM [facility]ALTH SYSTEM REPOSITORY Test performed at [facility] No growth Performed By: #### C_URI #### [place] [address] GLUCOSE METER Collected: 02/07/2018 Status: F Source: [facility] 8:39 PM [facility] SYSTEM REPOSITORY TYPE CODE TESTS RESULT OUT OF REFERENCE UNITS RANGE LAB GLUBL(LOINC 70-99 mg/dL ) High Glucose Meter 298 Performed By: #### GLMET #### [place] [address] Observed: 02/07/2018 Status: F Source: [facility] MRSA SCREEN 4:51 PM [facility] REPOSITORY Test performed at [facility] ORGANISM: Methicillin Resist S.aureus (ID: 1) MRSA Nasal Colonization Present Performed By: #### MRSA #### [place] [address] GLUCOSE METER Collected: 02/07/2018 Status: F Source: [facility] 4:32 PM [facility] REPOSITORY TYPE CODE TESTS RESULT OUT OF REFERENCE UNITS RANGE LAB GLUBL(LOINC 70-99 mg/dL ) Glucose Meter 86 Performed By: #### GLMET #### [place] [address] CHEST 1 VIEW Observed: 02/07/2018 Status: F Source: [facility] 1:43 PM [facility] REPOSITORY Performed at [facility] APPROVED BY: Maris Dodge MD EXAM TITLE: CHEST 1 VIEW DATE: 02/07/2018 13:36 INDICATION: Presurgical assessment. Patient states she had a heart attack COMPARISON: None. FINDINGS: The lungs are clear. There is no pleural effusion. Heart is not enlarged. Osseous structures are intact. IMPRESSION: No acute process. GLUCOSE METER Collected: 02/07/2018 Status: F Source: [facility] 11:34 AM [facility] REPOSITORY TYPE CODE TESTS RESULT OUT OF REFERENCE UNITS RANGE LAB GLUBL(LOINC 70-99 mg/dL ) High Glucose Meter 390 Result Comment: RN NOTIFIED Performed By: #### GLMET #### [facility] [address], [place] [address] VENOUS DUPLEX LOWER Observed: 02/07/2018 Status: F Source: [facility] 10:01 AM [facility] REPOSITORY [facility] Cardiovascular Services [address] [address] Venous Duplex US - Alfredo Extrem 02/05/18 1041 MR#: [id number] Acct: [id number] Name: VENITA SMITH Rep #: [id number] : 1950 67 From: Syeda Hayes MD [facility]ending [facility] DIS IN Ordering Dr: Milena Nielson Date: 02/04/18 Location: ICU Sex: F C Admitted: 02/04/18 Reason For Study: swelling RIGHT LEFT GSV is normal. GSV is normal. CFV is compressible, spontaneous, phasic, CFV is compressible, spontaneous, phasic, competent and demonstrates normal competent, and demonstrates normal augmentation. augmentation. FV is compressible, spontaneous, phasic, FV is compressible, spontaneous, phasic, competent and demonstrates normal competent and demonstrates normal augmentation. augmentation. POP V is compressible, spontaneous, phasic, POP V is compressible, spontaneous, phasic, competent and demonstrates normal competent and demonstrates normal augmentation. augmentation. T/P Trunk is compressible. T/P Trunk is compressible. PTV is compressible. PTV is compressible. RT PerV is compressible. LT PerV is compressible. Procedure Exam performed portable in patient room. The exam was diagnostic. A preliminary report was called and/or faxed to Laureen WOLFF. Interpretation Summary No evidence for acute deep venous thrombosis bilateral lower extremities with patent and compressible bilateral great saphenous veins. Ordering Physician: Milena Nielson Performed By: Florin Salcedo RVT 02/07/18 1001 Date ySeda Hayes MD CC: Milena Nielson; Ryan Roman MD; Baron Pike MD Date Dictated: 02/05/18 1041 Date Transcribed: 02/07/18 1001 Broadband Installer: Signed URINALYSIS, REFLEX Collected: 02/07/2018 Status: F Source[facility] 9:12 AM [facility] REPOSITORY TYPE CODE TESTS RESULT OUT OF RANGE REFERENCE UNITS LAB BACT1(LOIN None C) Abnormal Bacteria Urine 2+ LAB RETUB(LOIN 0-5 /hpf C) Renal Abnormal Tubular Cells 2-5 LAB COLOR(LOIN C) Urine Color YELLOW LAB APPUR(LOIN C) Urine Appearance TURBID LAB GLUUR(LOIN Negative mg/dL C) Glucose Urine NEGATIVE LAB KETON(LOIN Negative mg/dL C) Ketone Urine NEGATIVE LAB HGBUR(LOIN Negative C) Abnormal Hemoglobin,Urin LARGE e LAB PROTU(LOIN Negative mg/dL C) Abnormal Protein Urine TRACE LAB NITR(LOINC Negative ) Nitrite reflex NEGATIVE LAB BILIU(LOIN Negative C) Bilirubin Urine NEGATIVE LAB SPG(LOINC) 1.005-1.030 Specific 1.019 [place], Ur LAB PHUR(LOINC 5.0-8.0 ) pH,Urine 6.5 LAB UROBI(LOIN 0.0-1.0 EU/dL C) Urobilinogen,Ur 1.0 LAB LEUKR(LOIN Negative C) Abnormal Leukocyte LARGE esterase LAB RBCU1(LOIN 0.0-5.0 /hpf C) RBC,Urine 0.2.4 LAB WBCR(LOINC 0.00-5.00 /hpf ) High WBC, reflex 684.20 LAB EPIT1(LOIN 0.0-5.0 /hpf C) Ep Cells Urine 4.4 LAB HYCA1(LOIN 0.0-1.0 /lpf C) Hyaline Cast 0.4 LAB REFLX(LOIN C) Reflex Comment see below Result Comment: A urine culture has been ordered based on established laboratory criteria. Performed By: #### URIN #### [facility] [address], [place] [address] GLUCOSE METER Collected: 02/07/2018 Status: F Source: [facility] 7:20 AM [facility] REPOSITORY TYPE CODE TESTS RESULT OUT OF REFERENCE UNITS RANGE LAB GLUBL(LOINC 70-99 mg/dL ) High Glucose Meter 332 Result Comment: RN NOTIFIED Performed By: #### GLMET #### [facility] [address], [place] [address] HEMOGRAM/DIFF Collected: 02/07/2018 Status: F Source: [facility] 6:19 AM [facility] REPOSITORY TYPE CODE TESTS RESULT OUT OF REFERENCE UNITS RANGE LAB WBC(LOINC) 3.98-10.04 thou/cmm WBC 10.03 LAB RBC(LOINC) 3.93-5.22 mil/cmm Low RBC 3.89 LAB HGB(LOINC) 11.2-15.7 g/dL Low Hgb 9.6 LAB HCT(LOINC) 34.1-44.9 % Low Hct 31.8 LAB MCV(LOINC) 79.4-94.8 fl MCV 81.7 LAB MCH(LOINC) 25.6-32.2 pg Low MCH 24.7 LAB MCHC(LOINC 31.6-34.8 % ) Low MCHC 30.2 LAB RDW(LOINC) 11.7-14.4 % RDW High 15.7 LAB RDWSD(LOIN 36.4-46.3 fl C) RDW SD High 46.4 LAB PLT(LOINC) 182-369 thou/cmm Platelet 328 LAB MPV(LOINC) 9.4-12.3 fl Low MPV 8.8 LAB SEG(LOINC) % Seg Neutrophil 79.1 LAB IGRE(LOINC % ) Immature Grans 0.60 LAB LYMPH(LOIN % C) Lymphocyte 9.1 LAB MNO(LOINC) % Monocyte 11.0 LAB EOSIN(LOIN % C) Eosinophil 0.1 LAB BASO(LOINC % ) Basophil 0.1 LAB SEGN(LOINC 1.56-6.13 thou/cmm ) Abs. High Neut (ANC) 7.93 LAB IGAB(LOINC 0.00-0.05 thou/cmm ) Abs High Immature Grans 0.06 LAB LYMN(LOINC 1.18-3.74 thou/cmm ) Low Abs. Lymph 0.91 LAB MONON(LOIN 0.27-0.70 thou/cmm C) Abs. High Floyd 1.10 LAB EOSN(LOINC 0.00-0.31 thou/cmm ) Abs. Eosin 0.01 LAB BASON(LOIN 0.01-0.08 thou/cmm C) Abs. Baso 0.01 Performed By: #### CBCD1 #### [place] [address] BASIC PANEL Collected: 02/07/2018 Status: F Source: [facility] 6:19 AM [facility] REPOSITORY TYPE CODE TESTS RESULT OUT OF REFERENCE UNITS RANGE LAB NA(LOINC) 136-145 mEq/L Low Sodium Blood 135 LAB K(LOINC) 3.5-5.1 mEq/L Low Potassium Blood 3.4 LAB CL(LOINC) 98-107 mEq/L Chloride Blood 100 LAB CO2(LOINC) 21-32 mEq/L CO2 Blood 30 LAB GLU(LOINC) 70-99 mg/dL Glucose High Blood 309 LAB BUN(LOINC) 7-18 mg/dL BUN High Blood 25 LAB CREA(LOINC 0.51-0.95 mg/dL ) Creatinine Blood 0.70 LAB CA(LOINC) 8.5-10.1 mg/dL Calcium Blood 8.8 LAB ANGAP(LOIN 8-16 C) Anion Gap 8 Performed By: #### P8 #### [place] [address] MAGNESIUM BLOOD Collected: 02/07/2018 Status: F Source: [facility] 6:19 AM [facility] REPOSITORY TYPE CODE TESTS RESULT OUT OF REFERENCE UNITS RANGE LAB MAG(LOINC) 1.6-2.6 mg/dL Magnesium Blood 2.0 Performed By: #### MAG #### [place] [address] PHOSPHORUS BLOOD Collected: 02/07/2018 Status: F Source: [facility] 6:19 AM [facility] REPOSITORY TYPE CODE TESTS RESULT OUT OF REFERENCE UNITS RANGE LAB PHOS(LOINC 2.5-4.9 mg/dL ) Low Phosphorus Blood 2.1 Performed By: #### PHOS #### [facility] [address] [place] [address] VANCOMYCIN,RANDOM Collected: Status: F Source: [facility] 02/07/2018 6:19 AM [facility] SYSTEM REPOSITORY TYPE CODE TESTS RESULT OUT OF RANGE REFERENCE UNITS LAB VANCR(LOINC mg/L ) 18.8 Vancomycin,R andom Result Comment: Trough 10.0-20.0 mg/L Peak 18.0-40.0 mg/L Performed By: #### VANCR #### [place] [address] MDRD GFR Collected: 02/07/2018 Status: F Source: [facility] 6:19 AM [facility] REPOSITORY TYPE CODE TESTS RESULT OUT OF RANGE REFERENCE UNITS LAB GFRFN(LOINC >60mL/min/1.73m ) 2 eGFR >60 Result Comment: If the patient is , multiply the result by 1.210. Performed By: #### GFR #### [place] [address] HGB A1C Collected: 02/07/2018 Status: F Source: [facility] 6:19 AM [facility] REPOSITORY TYPE CODE TESTS RESULT OUT OF RANGE REFERENCE UNITS LAB A1C5(LOINC) 4.2-6.3 % High Hgb A1c 8.0 Result Comment: Method is National Glycohemoglobin Standardization Program (NGSP) compliant. LAB ESAVG(LOINC) mg/dl Est. Avg Glucose 183 Performed By: #### HA1C #### [place] [address] FREE T3 Collected: 02/07/2018 Status: F Source: [facility] 6:00 AM [facility] REPOSITORY TYPE CODE TESTS RESULT OUT OF RANGE REFERENCE UNITS LAB FT3A(LOINC) 2.2-4.0 pg/ml Low Free T3 2.1 Performed By: #### FT3A #### [place] [address] GLUCOSE METER Collected: 02/06/2018 Status: F Source: [facility] 10:49 PM [facility] REPOSITORY TYPE CODE TESTS RESULT OUT OF REFERENCE UNITS RANGE LAB GLUBL(LOINC 70-99 mg/dL ) High Glucose Meter >400 Result Comment: RN NOTIFIED Performed By: #### GLMET #### [facility] [address], [place] [address] ECHOCARDIOGRAM COMPLETE Observed: 02/06/2018 Status: F Source: [facility] 11:54 AM [facility] REPOSITORY [facility] Cardiovascular Services [address] [place] [address] Echo Complete 02/06/18 1001 MR#: [id number] Acct: [id number] Name: VENITA SMITH Rep #: [id number] : 1950 67 From: Brennan Gonzalez MD Attending Dr: Ryan Roman MD Status: ADM IN Ordering Dr: Ryan Roman MD Date: 02/06/18 Location: ICU Sex: F C Admitted: 02/04/18 Reason For Study: HIGH TROPONIN Procedure This was a 2D Doppler, Color Flow transthoracic echocardiogram. Exam performed portable in ICU/CCU. Left Ventricle Normal LV size. Mild concentric left ventricular hypertrophy. Left ventricular systolic function is normal. The estimated ejection fraction is 55 %. Transmitral diastolic flow velocities suggest mild (stage 1) diastolic dysfunction (reversed pattern). No regional wall motion abnormalities noted. Right Ventricle Normal RV size. Normal systolic function. Atria Normal left atrium. Normal right atrium. Mitral Valve There is mild mitral annular calcification. Moderate (2+) eccentric mitral valve insufficiency. Tricuspid Valve Normal tricuspid valve. Mild to moderate (1-2+) tricuspid valve insufficiency. Pulmonary artery systolic pressure is 45 mmHg. Mild pulmonary hypertension. Aortic Valve Trisinus/trileaflet aortic valve. Mild focal aortic valve calcification. Mild (1+) eccentric aortic valve insufficiency. Pulmonic Valve Normal pulmonic valve. Great Vessels Calcified aortic root. The pulmonary artery is normal size. Normal inferior vena cava. Pericardium/Pleural No pericardial effusion. MMode/2D Measurements AND Calculations LVIDd: 4.6 cm IVSd: 1.2 cm LVOT diam: 2.0 cm LVIDs: 3.8 cm LVPWd: 1.2 cm LVOT area: 3.2 cm2 RVDd: 2.8 cm FS: 17.6 % Ao root diam: 3.3 cm LAV(MOD-bp): 46.8 ml LVAd ap4: 31.6 cm2 LAV(MOD-bp) Indexed: 26.7 ml/m2 EDV(MOD-sp4): 96.6 ml LAV(MOD-sp2): 48.2 ml EDV(sp4-el): 100.4 ml LAV(MOD-sp4): 45.3 ml LVAs ap4: 18.9 cm2 ESV(MOD-sp4): 41.1 ml ESV(sp4-el): 43.3 ml EF(MOD-sp4): 57.5 % EF(sp4-el): 56.9 % SV(MOD-sp4): 55.6 ml SV(sp4-el): 57.1 ml LA A4 area: 17.4 cm2 RA A4 area: 11.6 cm2 Doppler Measurements AND Calculations MV E max augie: 111.2 cm/sec Lat Peak E' Augie: 9.9 cm/sec Med Peak E' Augie: 6.2 cm/sec MV A max augie: 135.4 cm/sec E/E' lat: 11.2 E/E' med: 17.9 MV E/A: 0.82 Ao V2 max: 170.1 cm/sec LV V1 max: 104.0 cm/sec PA V2 max: 109.8 cm/sec Ao max P.6 mmHg LV V1 max P.3 mmHg SAJI(V,D): 2.0 cm2 TR max augie: 317.2 cm/sec TR max P.4 mmHg Interpretation Summary Normal LV size. Left ventricular systolic function is normal. The estimated ejection fraction is 55 %. Moderate (2+) eccentric mitral valve insufficiency. Pulmonary artery systolic pressure is 45 mmHg. Mild pulmonary hypertension. Mild concentric left ventricular hypertrophy. Ordering Physician: Ryan Roman Referring Physician: BARON PIKE CHI Performed By: Karen Whiteside RDCS 02/06/18 1153 Date Brennan Gonzalez MD CC: Ryan Roman MD; Baron Pike MD Date Dictated: 02/06/18 1001 Date Transcribed: 02/06/18 1153 Broadband Installer: Signed BEDSIDE GLUCOSE Collected: 02/06/2018 Status: F Source: [facility] 11:26 AM [facility] REPOSITORY TYPE CODE TESTS RESULT OUT OF REFERENCE UNITS RANGE LAB L501.080 70-110 mg/dL High BEDSIDE GLU 416 Result Comment: MANAGEMENT OF PATIENT CARE PER NURSING PROTOCOL Performed By: #### L501.080 #### [facility] Point of Care [address] [place] [address] CONSULTATION Observed: 02/06/2018 Status: F Source: [facility] 10:57 AM [facility] REPOSITORY [facility] Medical Records Department [address] [place] [address] Consultation 02/06/18 0754 MR#: [id number] Acct: [id number] Name: VENITA SMITH Rep #: [id number] : 1950 67 From: Al Barnes DO PCP: Baron Pike MD, Chi Status: ADM IN Y Location: ICU ICU01-1 Reason for Consult Date of Consultation: 02/06/18 Reason for Consultation: Acute respiratory failure History of Present Illness: The patient is a 67-year-old female, with a history as outlined below, who initially presented to the emergency department on February 04 with right great toe swelling, erythema and pain. The patient was evaluated by podiatry and infectious diseases. Aspiration was completed of an abscess identified in the right great toe. She is currently on antibiotics for the aforementioned along with cellulitis. She also has noted gouty arthritis of her left foot. The patient's hospital course had been uncomplicated until the evening of February 05, at which time, a rapid response was called in response to acute onset shortness of breath/respiratory distress. The patient required initiation of bilevel therapy after an initial arterial blood gas revealed a pH of 7.12 with a corresponding PCO2 of 80. She was noted to have an elevated d-dimer level to 1.88, along with an elevated troponin which peaked at 8.34. A subsequent CTA chest revealed no evidence for pulmonary embolism. There was evidence of both pulmonary edema and small bilateral pleural effusions. The patient was subsequently transferred to the medical intensive care unit. She was evaluated by cardiology this morning. A Allen catheter was placed and she was administered IV Lasix. The patient was then taken to the cardiac catheterization lab for coronary angiography. The patient has a history of COPD and obstructive sleep apnea, for which she follows with me in the pulmonary medicine clinic. I last saw her in November 2017. Pulmonary function testing completed in March 2017 revealed the presence of a mild large airways obstructive ventilatory defect with an associated significant response to aerosolized bronchodilators, hyperinflation, air trapping and a mild reduction in diffuse opacity. The patient was reportedly seen previously by an assistant site manager and diagnosed with asthma. 6 minute walk test did reveal evidence of significant exertional oxygen desaturation, but did not meet inclusion criteria with use of supplemental oxygen. Patient does have a limited smoking history, having quit completely 24 years ago. She also underwent evaluation with a polysomnogram, which revealed evidence of obstructive sleep apnea. She is currently prescribed bilevel therapy with a pressure setting of 13/9 cm of water with medication. At her last office visit with me, she had demonstrated 100% compliance with its use. The patient does not use supplemental oxygen at her baseline. She is currently prescribed only a rescue inhaler at her baseline. Past Medical History Past Medical History (Chronic Problems): Chronic Problems (Last Reviewed 11/22/17 @ 13:19 by Sherie Alves) Obesity (BMI 30.0-34.9) (Chronic) HERNANDEZ (dyspnea on exertion) (Chronic) ELDER (obstructive sleep apnea) (Chronic) COPD (chronic obstructive pulmonary disease) (Chronic) Neuropathic pain (Chronic) Allergic rhinitis (Chronic) Asthma (Chronic) Mild asthma (Chronic) Osteoarthritis (Chronic) Hyperlipidemia (Chronic) Hypertension (Chronic) Type 2 diabetes mellitus (Chronic) Allergies No Known Allergies Allergy (Verified 02/04/18 14:51) Home Medications: Ambulatory Orders Medication Instructions Recorded Atorvastatin Calcium [Lipitor] 80 mg PO QHS 01/18/17 Surgical History: - - Hysterectomy, tonsillectomy, appendectomy, BLTL. 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 Sibling History Items: Diabetes, Heart Disease, - - ELDER Review of Systems Constitutional: Denies: Chills, Fever, Night Sweats Eyes: Denies: Blurred vision, Double vision HEENT: Denies: Head Aches, Sinus Congestion, Sinus Drainage Cardiovascular: Denies: Chest Pain, Palpitations Respiratory: Reports: Cough, Shortness of Breath. Denies: Shortness of breath at rest, Sputum production Gastrointestinal: Denies: Abdominal Pain, Nausea, Vomiting Genitourinary: Denies: Dysuria Musculoskeletal: Reports: Foot Pain Skin: Reports: Skin Changes Neurological: Denies: Numbness, Tingling, Focal weakness Psychiatric: Denies: Anxiety, Depression, Homicidal Ideations, Suicidal Ideations Hematologic/ Lymphatic: Denies: Easy Bruising, Easy Bleeding Patient Problems: Active and Suspected Problems (Last Reviewed 11/22/17 @ 13:19 by Sherie Alves) Pain in right toe(s) (Acute) Cellulitis of right foot (Acute) Abscess of toe of right foot (Acute) Type 2 diabetes mellitus (Acute) Objective: The patient's most recent lab work, culture data and imaging studies have all been personally reviewed. Wound and blood cultures are pending. Surface echocardiogram dated January 2017 revealed evidence of diastolic dysfunction with preserved ejection fraction. Pulmonary artery systolic pressure was estimated to be 51 mmHg. CTA chest revealed no evidence of pulmonary embolism. There was, nonetheless, evidence of pulmonary edema and small bilateral pleural effusions. - Physical Exam General: Alert, Oriented x3, Cooperative, No apparent distress HEENT: Atraumatic, PERRLA, Normocephalic Oral: No Gingival or Mucosal Lesions/ Ulcerations Neck: Supple, Negative Hepatojugular Reflux, Trachea Midline Lungs: Diminished, - - Bibasilar rales Cardiovascular: Normal S1, Normal S2, No murmurs, No rub noted, No Gallop, Tachycardic Abdomen: Bowel Sounds Present, Soft, Non Tender Extremities: No clubbing, No cyanosis, No edema Skin: - - Wrapped right lower extremity Musculoskeletal: No Muscle Wasting Lymphatic: No Cervical, Supraclavicular, or Inguinal Adenopathy Neurological: Neuro grossly intact Psych/Mental Status: Alert and oriented to time, place, person, mood and affect Vital Signs Temp Pulse Resp BP Pulse Ox 97.8 F 102 H 16 145/91 H 99 02/06/18 04:00 02/06/18 07:00 02/06/18 07:00 02/06/18 07:00 02/06/18 07:00 Oxygen Flow Rate (L/min) 4 Oxygen Delivery Method Nasal Cannula Weight: 166 lb 7.184 oz Body Mass Index (BMI) 30.1 Intake and Output for Last 24 Hours Intake Total 944 / 944 3770 / 3770 2348.6 / 2348.6 Output Total 850 / 850 600 / 600 Balance 944 / 944 2920 / 2920 1748.6 / 1748.6 Microbiology Past 72 Hours 02/04/18 18:08 Gram Stain - Final Laboratory Tests Past 24 Hrs WBC 10.6 WBC 14.0 H RBC 4.33 Hgb 10.6 L Hct 35.6 L MCV 82.2 MCH 24.5 L MCHC 29.8 L WBC RBC Hgb Hct MCV MCH MCHC RDW RDW Differential Plt Count MPV Immature Gran % (Auto) POC Glucose POC Glucose 377 H 387 H 408 H POC Glucose 257 H 239 H 284 H Clinical Impression(s) from Imaging Studies Foot X-Ray 02/04/18 15:10 IMPRESSION: Soft tissue swelling overlying the medial aspect of the proximal phalanx of the great toe and dorsal aspect of the foot. Electronically Signed: Mack Browne MD at 16:07 EDT Tel [phone], Service support , Chest X-Ray 02/05/18 20:30 IMPRESSION: Interval development of patchy interstitial densities consider asymmetric edema and/or atypical infiltrates. Electronically Signed: Faye Rojas MD at 21:34 EDT Tel , Service support , Chest CTA 02/06/18 21:22 IMPRESSION: No demonstrated pulmonary embolism or arterial dissection. Pulmonary edema and small bilateral pleural effusions. Cholelithiasis. Electronically Signed: Eugenio Novak MD at 2:53 EDT Tel , Service support , Assessment/Plan Active and Suspected Problems (Last Reviewed 11/22/17 @ 13:19 by Sherie Yensho) Pain in right toe(s) (Acute) Cellulitis of right foot (Acute) Abscess of toe of right foot (Acute) Type 2 diabetes mellitus (Acute) RECOMMENDATIONS: 1. Proceed with cardiac catheterization 2. As needed aerosol treatments 3. Continue antibiotics 4. Start home BiPAP therapy 13/9 cm of water with naps and nightly 5. Wean supplemental oxygen as tolerated 6. Continue attempts at diuresis IMPRESSIONS: 1. Acute hypoxemic and hypercarbic respiratory failure secondary to flash pulmonary edema The patient had appears to have responded appropriately to the use of bilevel therapy along with diuretics. Her oxygen requirement has been weaned accordingly. Supplemental oxygen can continue to be weaned to maintain a saturation at or above 90%. Continue medical management per cardiology recommendations. 2. Non-ST elevation myocardial infarction Plans for cardiac catheterization this morning. Further recommendations will be forthcoming depending on the outcome of the patient's coronary angiography. 3. Personal history of mild COPD/obstructive sleep apnea Continue as needed aerosol treatments. The patient only utilizes an albuterol rescue inhaler in her home environment. She does not have a baseline supplemental oxygen requirement. Patient does utilize bilevel therapy on a nocturnal basis with a pressure setting of 13/9 cm of water with the modification. Orders have been placed for BiPAP to be utilized with naps and nightly. 4. Right foot abscess/cellulitis Continue antibiotics and local wound care as ordered. 5. Obesity/diabetes/neuropathy/hypertension/hyperlipidemia Complicates care, management, recovery and prognosis. Continue Accu-Cheks and current insulin regimen. ADDENDUM: Cardiac catheterization revealed severe triple-vessel coronary artery disease, which will require surgical intervention. The patient is currently being considered for transfer to a tertiary care facility accordingly. This note was generated with [employer] dictation software. It may contain incorrect words, spelling, and punctuation that were not noted in checking the note before signing. Code Visit Inpatient E AND M: [id number] Init Hosp L3 02/06/18 1057 <Electronically signed by Al Barnes DO> Date Al Barnes DO Cosigner Signature (if applicable): Date CC: VERONIKA Hammond; Brennan Gonzalez MD; Al Barnes D.O.; Syeda Palmer MD; Baron Pike MD Signed CONSULTATION Observed: 02/06/2018 Status: F Source: SNYDER 10:55 AM [facility] [place] REPOSITORY [facility] Medical Records Department [address] [place] [address] Consultation 02/06/18 0706 MR#: [id number] Acct: [id number] Name: VENITA SMITH Rep #: [id number] : 1950 67 From: Brennan Gonzalez MD PCP: Baron Pike MD, Chi Status: ADM IN Y Location: ICU ICU01-1 Reason for Consult Date of Consultation: 02/06/18 Reason for Consultation: Abnormal cardiac enzymes and shortness of breath History of Present Illness: The patient is a 67 y/o F w/ PMHx: Obesity, Chronic COPD/Asthma, HTN, HLD, Allergic Rhinitis, ELDER, GERD, Tobacco use who presents to the [facility] ED on 02/04/18 with history of onset over the last 48 hours of initially R 1st MTP edema, pain, redness and mildly fluctuant region followed by onset L 1st MTP redness, pain, edema in addition to L elbow pain although no associated redness or marked edema without fever or chills. In the ED work-up included T 98.3, heart rate 98, BP 133/80, respiratory rate 16, 98% on room air, CBC with WBC 10.5, hemoglobin 11, platelet 312 with left shift, ESR 42, BMP with glucose 198, CRP 65.8, blood culture 2 pending per ED, Plain film of the foot with soft tissue edema overlying the medial aspect of the proximal phalanx of the great toe and dorsal aspect of the foot. In the ED patient administered Zosyn therapy. In the ED podiatry consulted and planned in ED aspiration of R 1st MTP and I+D of fluctuant region. Patient was noted in the middle of the night to get suddenly short of breath after she went to the bathroom and had to be transferred to the intensive care unit. Cardiac enzymes were obtained and were noted to be elevated to approximately 8. There were no EKG changes and the patient did not complain of any chest pain. Patient had previously been diagnosed with pulmonary hypertension with pulmonary to systolic pressure about 51 mmHg. This morning she is pain-free she is breathing better after having been on BiPAP through the night with occasional rales at the bases. Past Medical History Allergies/Adverse Reactions: Allergies No Known Allergies Allergy (Verified 02/04/18 14:51) Home Medications: Ambulatory Orders Medication Instructions Recorded Atorvastatin Calcium [Lipitor] 80 mg PO QHS 01/18/17 Past Medical History (Chronic Problems): Chronic Problems (Last Reviewed 11/22/17 @ 13:19 by Sherie Alves) Obesity (BMI 30.0-34.9) (Chronic) HERNANDEZ (dyspnea on exertion) (Chronic) ELDER (obstructive sleep apnea) (Chronic) COPD (chronic obstructive pulmonary disease) (Chronic) Neuropathic pain (Chronic) Allergic rhinitis (Chronic) Asthma (Chronic) Mild asthma (Chronic) Osteoarthritis (Chronic) Hyperlipidemia (Chronic) Hypertension (Chronic) Type 2 diabetes mellitus (Chronic) Surgical History: - - Hysterectomy, tonsillectomy, appendectomy, BLTL. 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 Sibling Family History: Family History (Last Reviewed 11/22/17 @ 13:19 by Sherie Alves) Mother Colon cancer History Items: Diabetes, Heart Disease, - - ELDER Lives: Alone Smoking Status: Former smoker Tobacco Use: Cigarettes Alcohol: None Drugs: None Review of Systems - Review of Systems General: Denies: Fever, Night Sweats, Fatigue Cardiovascular: Reports: Shortness of Breath, Shortness of Breath at Rest. Denies: Chest Discomfort, Orthopnea, PND, Peripheral Edema, Palpitations, Lightheadedness, Dizziness, Near Syncope, Syncope Respiratory: Denies: Cough, Sputum Production, Hemoptysis Gastrointestinal: Denies: Hematemesis, Hematochezia, Melena Genitourinary: Denies: Dysuria, Hematuria Skin: Denies: Rash Subjectve: Pleasant lady in no distress Objective: Vital Signs Temp Pulse Resp BP Pulse Ox 97.8 F 102 H 16 145/91 H 99 02/06/18 04:00 02/06/18 07:00 02/06/18 07:00 02/06/18 07:00 02/06/18 07:00 Oxygen Flow Rate (L/min) 4 Oxygen Delivery Method Nasal Cannula Weight: 166 lb 7.184 oz Body Mass Index (BMI) 30.1 Intake and Output for Last 24 Hours Intake Total 944 / 944 3770 / 3770 2348.6 / 2348.6 Output Total 850 / 850 600 / 600 Balance 944 / 944 2920 / 2920 1748.6 / 1748.6 General: Awake, Alert, Oriented x 3 HEENT: PERRL, EOMI, Sclera Non Icteric Neck: Supple, Good ROM, No Lymph Node Enlargement Lungs: Rales - Alfredo Bases Cardiovascular: Regular Rhythm, Normal S1, Normal S2, No Murmurs, No Rubs, No Gallops Vascular: No Carotid Bruits, Normal Femoral Pulses, Normal Radial Pulses, Normal Dorsalis Pedal Pulse, Normal Posterior Tibial Pulses Abdomen: Bowel Sounds Present, Soft, Non Tender, No HSM, No Organomegaly Extremities: No Cyanosis, No Clubbing, No edema, - - 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 Neurological: No Focal Motor or Sensory Deficit 02/05/18 09:30: WBC 10.6, RBC 4.08 L, Hgb 10.2 L, Hct 33.7 L, MCV 82.6, MCH 25.0 L, MCHC 30.3 L, RDW 15.7 H, RDW Differential 46.7 H, Plt Count 302, MPV 8.3, Immature Gran % (Auto) 0.300, Neut % (Auto) 83.2 H, Lymph % (Auto) 5.7 L, Floyd % (Auto) 9.7, Eos % (Auto) 0.9, Baso % (Auto) 0.2, Absolute Neuts (auto) 8.8 H, Total Counted Not Reportable 02/05/18 09:30: Iron 20 L, TIBC 323, Iron Saturation 6.2 L, Ferritin 63 02/05/18 19:54: pH 7.12 L*, Bicarbonate Actual 26.1 H, POC Total CO2 28, Base Excess -3 L, O2 Saturation 96, ABG pCO2 80.0 H*, ABG pO2 116 H, Adonay Test POS 02/05/18 20:34: WBC 14.0 H, RBC 4.33, Hgb 10.6 L, Hct 35.6 L, MCV 82.2, MCH 24.5 L, MCHC 29.8 L, RDW 15.8 H, RDW Differential 48.1 H, Plt Count 324, MPV 8.4, Immature Gran % (Auto) 0.100, Neut % (Auto) 93.3 H, Lymph % (Auto) 2.9 L, Floyd % (Auto) 3.5, Eos % (Auto) 0.1, Baso % (Auto) 0.1, Absolute Neuts (auto) 13.1 H, Total Counted Not Reportable 02/05/18 20:34: Sodium 134 L, Potassium 4.4, Chloride 99, Carbon Dioxide 27.0, Anion Gap 8, BUN 12, Creatinine 0.88, Est GFR (MDRD) Af Amer 82, Est GFR (MDRD) Non-Af 68, BUN/Creatinine Ratio 13.7, Glucose 363 H, Calcium 8.1 L, Magnesium 2.3, Total Bilirubin 0.50, Troponin I 5.670 H* 02/05/18 20:34: Lactic Acid 2.1 H 02/05/18 20:34: D-Dimer Quant (PE/DVT) 1.88 H* 02/05/18 21:26: pH 7.38, Bicarbonate Actual 27.8 H, POC Total CO2 29, Base Excess 3 H, O2 Saturation 99, ABG pCO2 47.0 H, ABG pO2 139 H, Adonay Test POS 02/05/18 23:31: Troponin I 8.340 H* 02/06/18 01:10: Lactic Acid 1.9 02/06/18 03:50: Troponin I 7.690 H* Rhythm: EKG: Sinus rhythm with no acute changes ECHO: Stress Test: Cardiac Cath: PCI: CT Surgery: Holter monitor: EPS: PPM: CXR: Chest CT Scan: No evidence of pulmonary embolism Assessment/Plan 1. Non-ST elevation myocardial infarction. Patient developed acute shortness of breath with evidence of mild pulmonary edema and evidence of non-ST elevation myocardial infarction. Based on this it was felt that the patient should undergo evaluation with a cardiac catheterization. The risk benefits alternatives have been explained to the patient she understands and agrees to proceed this has also been discussed with her son. The patient was loaded with oral clopidogrel as well as aspirin. Depending on the findings further recommendations will be made. 2. Acute pulmonary edema. It appears from the CT scan as well as her physical exam that she may have had an acute pulmonary edema and one needs to exclude significant coronary artery disease as a possible etiology of the above. She will be diuresed with intravenous Lasix and depending on the heart catheterization further recommendations made. 3. Obstructive lung disease pulmonary hypertension. The patient has known pulmonary hypertension by previous echocardiogram the underlying etiology is not entirely clear. She will continue with diuresis and I have taken the liberty of obtaining a pulmonary consultation. Will inform the hospitalist. Thank you for allowing me to participate in the care of your patient. Please don't hesitate to call if any issues arise Addendum. Patient underwent cardiac catheterization this morning which demonstrated the following: Calcified aorta. Calcified left main coronary artery. Distal 70% left main coronary artery stenosis. Proximal high-grade circumflex and then mid total occlusion Left anterior descending artery with 60-70% proximal, and 6070% mid Right coronary artery with 70% mid calcified stenosis and subtotally occluded posterolateral vessel with right to left collaterals Preserved left ventricular systolic function with moderate mitral regurgitation Based on the above angiographic findings it would be preferable for the patient to undergo coronary artery bypass surgery and if that is not possible then high risk intervention would be attempted. The above has been discussed with the interventionalist as well as the cardiac surgeon. The patient will be transferred back to the intensive care unit and then subsequently transferred to [facility] later today. 02/06/18 1055 <Electronically signed by Brennan Gonzalez MD> Date Brennan Gonzalez MD Cosigner Signature (if applicable): Date CC: VERONIKA Hammond; Brennan Gonzalez MD; Al Barnes D.O.; Syeda Palmer MD; Baron Pike MD Signed DISCHARGE SUMMARY Observed: 02/06/2018 Status: F Source: JEFRY 9:53 AM [facility] [place] REPOSITORY [facility] Medical Records Department [address] [place] [address] Discharge Summary 02/06/18 0859 MR#: [id number] Acct: [id number] Name: VENITA SMITH Rep #: [id number] : 1950 67 From: Consuelo Moulton DO PCP: Shahzad HOYOS,Baron Bryant Status: ADM IN Y Location: ICU ICU01-1 ADDENDUM by Doris Moulton on 02/06/18 at 0953 02/06/18 0953 <Electronically signed by Consuelo Moulton DO> Date Consuelo Moulton DO cc: Nino Carrington MD; Doris Moulton; Brennan Gonzalez MD; Al Barnes D.O.; Sean Murphy MD; Baron Pike MD * Signed Discharge Date and Diagnosis - Problem List Patient Problems: Active and Suspected Problems (Last Reviewed 11/22/17 @ 13:19 by Sherie Alves) Pain in right toe(s) (Acute) Cellulitis of right foot (Acute) Abscess of toe of right foot (Acute) Type 2 diabetes mellitus (Acute) Date of Admission: 02/04/18 Date of Discharge: 02/06/18 - Primary Discharge Diagnosis Active and Suspected Problems (Last Reviewed 11/22/17 @ 13:19 by Sherie Alves) NSTEMI Flash pulmonary edema Acute respiratory failure secondary to flash pulmonary edema Triple-vessel coronary artery disease on cardiac catheterization Cellulitis of right foot (Acute) Abscess of toe of right great toe (Acute) Acute gouty arthritis R great toe, Left foot, Left elbow - Secondary Discharge Diagnosis Chronic Problems (Last Reviewed 11/22/17 @ 13:19 by Sherie Alves) Obesity (BMI 30.0-34.9) (Chronic) ELDER (obstructive sleep apnea) (Chronic) compliant with CPAP COPD (chronic obstructive pulmonary disease) (Chronic) Neuropathic pain (Chronic) Allergic rhinitis (Chronic) Asthma (Chronic) Osteoarthritis (Chronic) Hyperlipidemia (Chronic) Hypertension (Chronic) Type 2 diabetes mellitus (Chronic) Hospital Course and Treatment Imaging Results: 02/06/18 05:55 Echo Complete [ECHO] AM (NON MEDS) 02/06/18 21:22 CTA Chest W/WO Contrast [CT] Urgent Consultations 02/04/18 18:41 Consult: Onc/Wound/research professor Routine Comment: Operations: None Procedures: Cardiac catheterization Summary of Care Provided: The patient is a 67 year old F with a past medical history of diabetes mellitus type 2, hypertension, hyperlipidemia, asthma, neuropathy, osteoarthritis, GERD, obstructive sleep apnea (compliant with CPAP) and obesity who was admitted to the hospital with cellulitis and abscess of the R foot. She was started on Vancomycin and Zosyn and consultation was obtained with podiatry. The wound on the R foot was debrided and the drainage was sent for culture and crystals. A PCR on the wound drainage was negative for staph aureus and negative for MRSA. Gram stain had no organisms and no white blood cells. There were a few nondescript crystals on pathology report, no evidence of monosodium urate crystals. She developed redness of the L forefoot with First MTP pain and L medial elbow pain on 02/05/18 and was treated for suspected acute gouty arthritis with 1 dose of Toradol 15 mg and prednisone 20 mg. She had good relief of pain and the erythema and warmth to touch regressed with treatment. Late in the evening on 02/05 she was walking back from the [place] and experienced sudden onset of SOB. She denied CP. CXR showed acute pulmonary edema. EKG showed no ST elevation and troponin was increased at 5.67. She was given 325 mg of aspirin and transferred to the intensive care unit. He was treated with intravenous Lasix but did require BIPAP rescue for a period of time. She had a cardiac catheterization on 02/06 and this showed Severe triple-vessel disease with distal left main disease and preserved ejection fraction of 55%. There was moderate mitral regurgitation. Atrial 4 he was in contact with cardiology at [facility] and she will be transferred for coronary artery bypass grafting. Troponin peaked at 8.34 and is now trending down. There has been no significant cardiac dysrhythmia or ectopy. This note was generated with [employer] dictation software. It may contain incorrect words, spelling, and punctuation that were not noted in checking the note before signing. Home Medications: Medications to take at Discharge Atorvastatin Calcium [Lipitor] 80 mg PO QHS 01/18/17 Cyanocobalamin [Vitamin B12] 1,000 mcg PO DAILY@0800 01/18/17 Estropipate [Ogen (G)] 0.75 mg PO DAILY 01/18/17 Lisinopril [Prinivil] 10 mg PO DAILY 01/18/17 Triamterene 37.5MG/Hctz 25MG [Dyazide (G)] 1 cap PO DAILY 01/18/17 Verapamil HCl [Verapamil ER] 240 mg PO DAILY 01/18/17 gabapentin 300 mg capsule 600 mg PO TID cap 08/23/17 metformin 1,000 mg tablet 1,000 mg PO BIDCM tab 08/23/17 multivitamin tablet 1 tab PO DAILY 08/23/17 Glimepiride [Amaryl] 4 mg PO BID 09/18/17 Hydrocodone/Acetaminophen [[place] 5-325 Tablet] 1 each PO BID 09/18/17 Loratadine 10 mg PO DAILY 09/18/17 Ascorbic Acid [Vitamin C] 1,000 mg PO QHS 02/04/18 Ibuprofen [Motrin] 800 mg PO TID PRN PRN 02/04/18 Lidocaine [Lidoderm Patch] 1 patch TRANSDERM. DAILY 02/04/18 Methenamine Hippurate 1 tab PO QHS 02/04/18 Novolin N 35 - 40 units SQ DINNER 02/04/18 Omeprazole [Omeprazole] 20 mg PO DAILY 02/04/18 Victoza 1.2 units SQ BREAKFAST 02/04/18 Primary Care Physician: Baron Pike Chi, MD [Primary Care Provider] - Disposition: Acute care Hospital - [facility] Minutes spent on discharge:: 45 Patient Condition:: Guarded Medical Necessity - Tobacco Use Smoking Status: Former smoker Tobacco Use: Cigarettes Meaningful Use Info Meaningful Use Diagnoses (Choose all that apply): AMI, CHF - AMI Aspirin given w/in 24hrs of arrival?: Yes ASA at discharge?: Yes Statins at discharge?: Yes Eran/ARB at discharge?: Yes Beta Dao at discharge?: Yes Done w/ Acute NH measure.: Yes - CHF ERAN/ARB ordered at discharge?: Yes Documented LVEF (%): 55 Code Visit Inpatient CHICA: [id number] Disch Hosp 02/06/18 0933 <Electronically signed by Consuelo Moulton DO> Date Consuelo Moulton DO Cosigner Signature (if applicable): Date CC: Nino Carrington MD; Doris Moulton; Brennan Gonzalez MD; Al Barnes D.O.; Sean Murphy MD; Baron Pike MD Signed VANCOMYCIN, TROUGH Collected: 02/06/2018 Status: F Source: JEFRY LEVEL 9:30 AM [facility] REPOSITORY Order Comment: Time Medication is to be Given? 0800 TYPE CODE TESTS RESULT OUT OF RANGE REFERENCE UNITS LAB L501.8820 5.0-15.0 ug/mL Normal VANCO, TROUGH 8.3 Result Comment: VANCOMYCIN STANDARED DRUG THERAPY TROUGH LEVEL: 5.0 - 15.0 mg/L VANCOMYCIN HIGH INTENSITY THERAPY TROUGH LEVEL: 15.0 - 20.0 mg/L High Intensity therapy recommended for serious life threatening infections include: - Meningitis -Endocarditis -Pneumonia (Ventilator/Healtcare Associated) -Sepsis PLEASE CONTACT PHARMACY SERVICES (#[id number]) FOR INTERPRETATION OF RESULTS. Performed By: #### L501.8820 #### [facility] [address] [place], [address] BEDSIDE GLUCOSE Collected: 02/06/2018 Status: F Source: JEFRY 6:55 AM [facility] REPOSITORY TYPE CODE TESTS RESULT OUT OF REFERENCE UNITS RANGE LAB L501.080 70-110 mg/dL High BEDSIDE GLU 377 Result Comment: MANAGEMENT OF PATIENT CARE PER NURSING PROTOCOL Performed By: #### L501.080 #### [facility] Point of Care [address] [place], [place] [id number] TROPONIN-I Collected: 02/06/2018 Status: F Source: JEFRY 3:50 AM [facility] REPOSITORY Order Comment: 'TROP' Serial specimen #1, #2 or #3: 3 'TROP' Serial specimen #1, #2, #3, or #4: 3 TYPE CODE TESTS RESULT OUT OF RANGE REFERENCE UNITS LAB L501.4010 <0.045 ng/mL High alert 7.690 TROPONIN-I Result Comment: Critical Result(s) Called at: 04:34:15 02/06/2018 by: SADIE COLBERT TO [facility] TROPONIN-I EXPECTED VALUES <0.045 Negative 0.045 - 0.590 Consistent with Cardiac Damage > OR = 0.600 Critical Value Not every elevated troponin is indicative of NH. These values should be used with clinical judgement in examining the patient's clinical picture for diagnosis. To establish a diagnosis of NH versus myocardial injury, there must be a demonstrated rise and/or fall in the troponin values, in addition to ischemic symptoms, EKG changes, new regional wall motion abnormality, and/or angiographical evidence. PLEASE NOTE: REFERENCE RANGES EDITED 18 Performed By: #### L501.4010 #### [facility] [address] [facility] [facility] [place], [place], [address] LACTIC ACID Collected: 02/06/2018 Status: F Source: JEFRY 1:10 AM [facility] REPOSITORY TYPE CODE TESTS RESULT OUT OF RANGE REFERENCE UNITS LAB L503.6005 0.4-2.0 mmol/L Normal LACTIC ACID 1.9 Performed By: #### L503.6005 #### [facility] [address] [place], [address] TROPONIN-I Collected: 02/05/2018 Status: F Source: JEFRY 11:31 PM [facility] REPOSITORY Order Comment: 'TROP' Serial specimen #1, #2 or #3: 2 'TROP' Serial specimen #1, #2, #3, or #4: 2 TYPE CODE TESTS RESULT OUT OF RANGE REFERENCE UNITS LAB L501.4010 <0.045 ng/mL High alert 8.340 TROPONIN-I Result Comment: Critical Result(s) Called at: 00:06:47 02/06/2018 by: YOGESH BORGESHEIM TROPONIN-I EXPECTED VALUES <0.045 Negative 0.045 - 0.590 Consistent with Cardiac Damage > OR = 0.600 Critical Value Not every elevated troponin is indicative of NH. These values should be used with clinical judgement in examining the patient's clinical picture for diagnosis. To establish a diagnosis of NH versus myocardial injury, there must be a demonstrated rise and/or fall in the troponin values, in addition to ischemic symptoms, EKG changes, new regional wall motion abnormality, and/or angiographical evidence. PLEASE NOTE: REFERENCE RANGES EDITED 18 Performed By: #### L501.4010 #### [facility] [address] [place], [address] BEDSIDE GLUCOSE Collected: 02/05/2018 Status: F Source: SNYDER 9:40 PM [facility] REPOSITORY TYPE CODE TESTS RESULT OUT OF REFERENCE UNITS RANGE LAB L501.080 70-110 mg/dL High BEDSIDE GLU 387 Result Comment: MANAGEMENT OF PATIENT CARE PER NURSING PROTOCOL Performed By: #### L501.080 #### [facility] Point of Care [address] [place], [place] [address] BLOOD GASES BY CPS Collected: 02/05/2018 Status: F Source: SNYDER 9:26 PM [facility] REPOSITORY TYPE CODE TESTS RESULT OUT OF RANGE REFERENCE UNITS LAB L9000.9990 Normal BLD GAS TYPE ART LAB L9001.1000 Normal SITE L Radial LAB L9001.1010 Normal ADONAY TEST POS LAB L9001.1050 O2 Normal Delivery Dev Bi / C PAP LAB L9001.1070 RR Normal 12 LAB L9001.1074 Normal FI02 70 LAB L9001.1088 Normal IPAP 20 LAB L9001.1090 Normal EPAP 10 LAB L9001.1104 Normal Results To HOSP MD LAB L9001.1105 Normal Time Given 0 LAB L9001.1110 7.35-7.45 pH Normal - I-STAT 7.38 LAB L9001.1210 35-45 mmHg High pCO2 - ISTAT 47.0 LAB L9001.1310 75-100 mmHG High PO2 I-STAT 139 LAB L9001.2300 22-26 mmol/L High HCO3 ISTAT 27.8 LAB L9001.2400 -2 to +2 mmol/L High BE ISTAT 3 LAB L9001.2415 mmol/L Normal TOTAL CO2 29 ISTAT LAB L9001.2425 95-99 % Normal SO2 ISTAT 99 Performed By: #### L9000.0800 #### [facility] Point of Care [address] [place] [address] CTA CHEST W/WO Observed: 02/05/2018 Status: F Source: SNYDER CONTRAST 9:23 PM [facility] REPOSITORY [facility] Imaging Services [address] [place] [address] CTA Chest W/WO Contrast MR#: [id number] Acct: [id number] Name: VENITA SMITH Rep #: [id number] : 1950 F 67 From: Eugenio Novak MD PCP: Baron Pike MD, Chi Status: ADM IN Study: CTA Chest W/WO Contrast Date of Exam: 02/06/18 Exam# [id number] Ordering Dr: Ryan Roman MD STUDY: CTA CHEST REASON FOR EXAM: Female, 67 years old. Dyspnea. Elevated d-dimer RADIATION DOSAGE (If Supplied By Facility): CTDIvol = ( 13.29 ) mGy, DLP = ( 654.43 ) mGycm TECHNIQUE: The examination was performed with the intravenous administration of 75ML ml of Isovue 370 contrast material. Post-processing of the angiographic images was performed, with multiplanar reformation and 3D reconstruction. Individualized dose optimization techniques were used for this CT. COMPARISON: None. FINDINGS: Normal enhancement of the main pulmonary artery and right and left pulmonary arteries. Normal enhancement of the bilateral peripheral pulmonary arteries. There is no demonstrated pulmonary embolism. Normal thoracic aorta and visualized great vessels. There is no demonstrated aortic dissection. Normal heart and pericardium. Normal mediastinum. Normal hilar regions. Normal visualized trachea and bronchi. There is partial atelectasis in the right and left lung lower lobes. There is interstitial thickening in both lungs more prominent in lung bases suggesting pulmonary edema. Small bilateral pleural effusions are noted Normal chest wall structures. There are degenerative changes of thoracic spine. There is a small stone in the gallbladder CT/CTA Chest W/WO Contrast IMPRESSION: No demonstrated pulmonary embolism or arterial dissection. Pulmonary edema and small bilateral pleural effusions. Cholelithiasis. Electronically Signed: Eugenio Novak MD at 2:53 EDT Tel , Service support , CC: Ryan Roman MD; Baron Pike MD Broadband Installer: Signed CBC W/DIFF, AUTOMATED Collected: 02/05/2018 Status: F Source: JEFRY 8:34 PM [facility] REPOSITORY TYPE CODE TESTS RESULT OUT OF RANGE REFERENCE UNITS LAB L100.1000 4.4-11.0 K/mm3 High WBC 14.0 LAB L100.1200 4.2-5.4 M/mm3 Normal RBC 4.33 LAB L100.1300 12.0-15.0 g/dl Low HGB 10.6 LAB L100.1400 37-47 % Low HCT 35.6 LAB L100.1500 81-99 fL Normal MCV 82.2 LAB L100.1600 27.0-32.0 pg Low MCH 24.5 LAB L100.1700 32-36 g/gl Low MCHC 29.8 LAB L100.1810 11.6-14.6 % High RDW CV 15.8 LAB L100.1820 35.1-43.9 fl High RDW SD 48.1 LAB L100.1900 150-450 K/mm3 Normal PLT 324 LAB L100.2000 6.2-12.0 fl Normal MPV 8.4 LAB L100.2100 47-70 % High NEUT% 93.3 LAB L100.2200 19-41 % Low LY% 2.9 LAB L100.2300 0-10 % Normal MONO% 3.5 LAB L100.2400 0-5 % Normal EO% 0.1 LAB L100.2500 0-1 % Normal BASO% 0.1 LAB L100.2550 0.0-0.9 % Normal IM GRAN % 0.100 Result Comment: IG% - Immature Granulocytes (promyelocytes, myelocytes and metamyelocytes) > 1% indicates that a LEFT SHIFT is Present. LAB L100.2620 2.0-7.7 X10 3/uL High Absolute Neut 13.1 LAB L100.2720 0.83-4.51 X10 3/ul Low Absolute Lymph 0.40 LAB L100.4500 Normal SMEAR COMMENT SCANNED Result Comment: 1+ BANDS NOTED ON SLIDE REVIEW LAB L100.5500 ADEQ Normal PLT EST ADEQUATE LAB L100.7300 Normal 1+ ANISO LAB L100.7400 Normal RARE POIK Performed By: #### L100.0100 #### [facility] [address] [place], [address] D-DIMER QUANTITATIVE Collected: 02/05/2018 Status: F Source: JEFRY (DVT/PE) 8:34 PM [facility] REPOSITORY TYPE CODE TESTS RESULT OUT OF RANGE REFERENCE UNITS LAB L300.8000 0.27-0.49 FEU/ug/m High alert D-DIMER 1.88 QUANT Result Comment: D-Dimer ELEVATED (>0.49): Additional studies and clinical assessments are indicated to conclude diagnosis of: Deep Vein Thrombosis (DVT) or Pulmonary Embolism (PE) CRITICAL VALUE VERIFIED. CALLED TO [facility] 02/05/18 2102 Afsaneh Pedersen. RESULTS READ BACK BY SAME. Performed By: #### L300.8000 #### [facility] [address] [place], [place], [address] COMPREHENSIVE METABOLIC Collected: 02/05/2018 Status: F Source: JEFRY PROFIL 8:34 PM [facility] REPOSITORY TYPE CODE TESTS RESULT OUT OF RANGE REFERENCE UNITS LAB L501.0100 74-106 mg/dL High GLU 363 Result Comment: Glucose result greater than or equal to 200 mg/dL suggests DIABETES MELLITUS per A.D.A. criteria. Please note revised GLUCOSE reference range effective 2017. LAB L501.1000 7-18 mg/dL Normal BUN 12 LAB L501.1100 0.55-1.02 mg/dL Normal CREAT,SERUM 0.88 Result Comment: The validity of the calculated GFR AND GFRAA in patients over 70 years has not been determined. Clinical correlation is essential. LAB L501.1110 >60 mL/min Normal EST GFR 68 Result Comment: Non- GFR Calc LAB L501.1115 >60 mL/min Normal EST GFR - AA 82 Result Comment: GFR Calc LAB L501.1255 ml/min Normal Estimated CRCL 48.39 LAB L501.1300 10-20 RATIO Normal BUN/CRE 13.7 LAB L501.1500 6.4-8. g/dL Normal 2 T PROT 7.2 LAB L501.1800 3.2-5. g/dL Low 0 ALB 2.3 LAB L501.1950 2.2-4. g/dL High 2 GLOB 4.9 LAB L501.2000 0.9-2. RATIO Low 4 A/G 0.5 LAB L501.2200 8.5-10 mg/dL Low .1 CA 8.1 LAB L501.4100 15-37 U/L High AST 44 LAB L501.4305 45-117 U/L Normal ALK P 96 LAB L501.4405 13-56 U/L Normal ALT 19 LAB L501.4600 0.20-1 mg/dL Normal .00 T BILI 0.50 LAB L501.5300 136-14 mmol/L Low 5 NA 134 LAB L501.5600 3.5-5. mmol/L Normal 1 K 4.4 LAB L501.5900 98-107 mmol/L Normal CL 99 LAB L501.6100 21.0-3 mmol/L Normal 2.0 CO2 27.0 LAB L501.6200 5-15 Normal GAP 8 Performed By: #### L500.4050, L501.4010, L501.5200 #### [facility] [address] [place], [place], [address] TROPONIN-I Collected: 02/05/2018 Status: F Source: SNYDER 8:34 PM [facility] REPOSITORY TYPE CODE TESTS RESULT OUT OF RANGE REFERENCE UNITS LAB L501.4010 <0.045 ng/mL High alert 5.670 TROPONIN-I Result Comment: Critical Result(s) Called at: 21:20:21 02/05/2018 by: Arleth VILA TROPONIN-I EXPECTED VALUES <0.045 Negative 0.045 - 0.590 Consistent with Cardiac Damage > OR = 0.600 Critical Value Not every elevated troponin is indicative of NH. These values should be used with clinical judgement in examining the patient's clinical picture for diagnosis. To establish a diagnosis of NH versus myocardial injury, there must be a demonstrated rise and/or fall in the troponin values, in addition to ischemic symptoms, EKG changes, new regional wall motion abnormality, and/or angiographical evidence. PLEASE NOTE: REFERENCE RANGES EDITED 18 Performed By: #### L500.4050, L501.4010, L501.5200 #### [facility] [address] [place], [address] MAGNESIUM Collected: 02/05/2018 Status: F Source: SNYDER 8:34 PM [facility] REPOSITORY TYPE CODE TESTS RESULT OUT OF RANGE REFERENCE UNITS LAB L501.5200 1.6-2.6 mg/dL Normal MG 2.3 Performed By: #### L500.4050, L501.4010, L501.5200 #### [facility] [address] [place], [address] LACTIC ACID Collected: 02/05/2018 Status: F Source: SNYDER 8:34 PM [facility] REPOSITORY Order Comment: Yes/No query for Sepsis Lactate Rule Y TYPE CODE TESTS RESULT OUT OF REFERENCE UNITS RANGE LAB L503.6005 0.4-2.0 mmol/L High LACTIC ACID 2.1 Result Comment: Critical Result(s) Called at: 21:24:07 02/05/2018 by: Arleth VILA Performed By: #### L503.6005 #### [facility] [address] [place], [address] M R STAPH AUREUS Collected: 02/05/2018 Status: F Source: SNYDER DNA BY PCR 8:25 PM [facility] REPOSITORY Order Comment: RESULTS CALLED TO SABINO 02/05/18 2210 Brittaney Terrell. REPORT READ BACK BY SAME. TYPE CODE TESTS RESULT OUT OF REFERENCE UNITS RANGE LAB L8200.1100 Negative High MRSA POSITIVE RESULT Performed By: #### L8200.1000 #### [facility] [address] [place], [address] CHEST 1 VIEW Observed: 02/05/2018 Status: F Source: JEFRY (PORTABLE) 8:21 PM [facility] REPOSITORY [facility] [place] [address] Chest 1 View (Portable) MR#: [id number] Acct: [id number] Name: VENITA SMITH Rep #: [id number] : 1950 F 67 From: Faye Rojas MD PCP: Baron Pike MD, Chi Status: ADM IN Study: Chest 1 View (Portable) Date of Exam: 02/05/18 Exam# [id number] Ordering Dr: Ryan Roman MD STUDY: X-RAY CHEST REASON FOR EXAM: Female, 67 years old. Respiratory distress TECHNIQUE: Single AP portable view of the chest. COMPARISON: January 18, 2017 chest x-ray FINDINGS: Since prior study there is been interval development of patchy interstitial densities within the right upper lobe predominance in the lung bases. There is no demonstrated pleural abnormality. Normal size heart. Normal mediastinum and cristofer. Normal visualized pulmonary arteries. There is atherosclerotic calcification of the aortic arch with tortuosity. Normal visualized thoracic spine. Normal visualized ribs, clavicles, and shoulders. There is no demonstrated abnormality of the visualized soft tissue structures of the upper abdomen. RAD/Chest 1 View (Portable) IMPRESSION: Interval development of patchy interstitial densities consider asymmetric edema and/or atypical infiltrates. Electronically Signed: Faye Rojas MD at 21:34 EDT Tel , Service support , CC: Ryan Roman MD; Baron Pike MD Broadband Installer: Signed BLOOD GASES BY CPS Collected: 02/05/2018 Status: F Source: SNYDER 7:54 PM [facility] REPOSITORY TYPE CODE TESTS RESULT OUT OF RANGE REFERENCE UNITS LAB L9000.9990 Normal BLD GAS TYPE ART LAB L9001.1000 Normal SITE L Radial LAB L9001.1010 Normal ADONAY TEST POS LAB L9001.1050 O2 Normal Delivery Dev Bi / C PAP LAB L9001.1070 RR Normal 22 LAB L9001.1074 Normal FI02 100 LAB L9001.1088 Normal IPAP 14 LAB L9001.1090 Normal EPAP 8 LAB L9001.1104 Normal Results To HOSP MD LAB L9001.1105 Normal Time Given 1954 LAB L9001.1110 7.35-7.45 Low pH alert - I-STAT 7.12 LAB L9001.1210 35-45 mmHg High alert pCO2 - ISTAT 80.0 LAB L9001.1310 75-100 mmHG High PO2 I-STAT 116 LAB L9001.2300 22-26 mmol/L High HCO3 ISTAT 26.1 LAB L9001.2400 -2 to +2 mmol/L Low BE ISTAT -3 LAB L9001.2415 mmol/L Normal TOTAL CO2 28 ISTAT LAB L9001.2425 95-99 % Normal SO2 ISTAT 96 Performed By: #### L9000.0800 #### [facility] Point of Care [address] [place] [address] BEDSIDE GLUCOSE Collected: 02/05/2018 Status: F Source: JEFRY 7:39 PM [facility] REPOSITORY TYPE CODE TESTS RESULT OUT OF REFERENCE UNITS RANGE LAB L501.080 70-110 mg/dL High BEDSIDE GLU 408 Result Comment: MANAGEMENT OF PATIENT CARE PER NURSING PROTOCOL Performed By: #### L501.080 #### [facility] Point of Care [address] [place] [address] BEDSIDE GLUCOSE Collected: 02/05/2018 Status: F Source: JEFRY 4:47 PM [facility] REPOSITORY TYPE CODE TESTS RESULT OUT OF REFERENCE UNITS RANGE LAB L501.080 70-110 mg/dL High BEDSIDE GLU 257 Result Comment: MANAGEMENT OF PATIENT CARE PER NURSING PROTOCOL Performed By: #### L501.080 #### [facility] Point of Care [address] [place] [address] BEDSIDE GLUCOSE Collected: 02/05/2018 Status: F Source: JEFRY 2:25 PM [facility] REPOSITORY TYPE CODE TESTS RESULT OUT OF REFERENCE UNITS RANGE LAB L501.080 70-110 mg/dL High BEDSIDE GLU 239 Result Comment: MANAGEMENT OF PATIENT CARE PER NURSING PROTOCOL Performed By: #### L501.080 #### [facility] Point of Care [address] [place] [address] CONSULTATION Observed: 02/05/2018 Status: F Source: SNYDER 11:25 AM [facility] REPOSITORY [facility] Medical Records Department [address] [place] [address] Consultation 02/05/18 1119 MR#: [id number] Acct: [id number] Name: VENITA SMITH Rep #: [id number] : 1950 67 From: Syeda Palmer MD PCP: Shahzad HOYOS,Baron Bryant Status: ADM IN Y Location: [place] [address] Problem List (1) Abscess of toe of right foot Status: Acute Reason for Consult: toe infection Consulted by: Dr. Nielson History of Present Illness: The patient is a 67 year old F with h/o DM and presumed gout in hand in past who presented 02/04 with 2 days of progressive R 1st toe redness, pain, swelling, warmth. No inciting trauma. Pain was severe. No drainage. No h/o MRSA infection. No recent abx. Came to ED, podiatry consulted. Aspiration done and purulent abscess was debrided. No fever, some chills prior to admit. Not feeling too much better this AM. On vanc/zosyn. Full ROS performed and neg except as noted above. - Medical History Past Medical History (Chronic Problems): Chronic Problems (Last Reviewed 11/22/17 @ 13:19 by Sherie Alves) Obesity (BMI 30.0-34.9) (Chronic) HERNANDEZ (dyspnea on exertion) (Chronic) ELDER (obstructive sleep apnea) (Chronic) COPD (chronic obstructive pulmonary disease) (Chronic) Neuropathic pain (Chronic) Allergic rhinitis (Chronic) Asthma (Chronic) Mild asthma (Chronic) Osteoarthritis (Chronic) Hyperlipidemia (Chronic) Hypertension (Chronic) Type 2 diabetes mellitus (Chronic) Allergies/Adverse Reactions: Allergies No Known Allergies Allergy (Verified 02/04/18 14:51) Home Medications: Ambulatory Orders Medication Instructions Recorded Atorvastatin Calcium [Lipitor] 80 mg PO QHS 01/18/17 - Social History SMOKING STATUS:: Former smoker Vital Signs Temp Pulse Resp BP Pulse Ox 98.6 F 110 H 18 149/71 H 98 02/05/18 08:30 02/05/18 08:30 02/05/18 08:30 02/05/18 08:30 02/05/18 08:30 Oxygen Flow Rate (L/min) 2 Oxygen Delivery Method Nasal Cannula Weight: 74.8 kg Body Mass Index (BMI) 30.1 Microbiology Past 72 Hours 02/04/18 18:08 Gram Stain - Final Laboratory Tests Past 24 Hrs WBC 10.6 RBC 4.08 L Hgb 10.2 L - Other Studies Radiology: [] reviewed Other Studies: [] Route of nutrition/ use of supplements: [] Nutritional Intake: [] IV Site: [] Allen Catheter: [] - Physical Exam General: Alert, Oriented x3, Cooperative, No apparent distress HEENT: Atraumatic, PERRLA, EOMI Neck: Supple, No Nodes Lungs: Clear to auscultation, Normal air movement Cardiovascular: Regular rate, Regular Rhythm Abdomen: Soft, Non Tender, Non-Distended Extremities: Edema - mild Skin: - - R 1st MTP with redness, swelling. Reviewed photo. IV Site: Peripheral, without redness Neurological: Cranial nerves II-XII grossly intact - Assessment/Plan Antibiotics: [] Assessment/Plan: [] Active and Suspected Problems (Last Reviewed 11/22/17 @ 13:19 by Sherie Alves) Pain in right toe(s) (Acute) Cellulitis of right foot (Acute) Abscess of toe of right foot (Acute) Type 2 diabetes mellitus (Acute) Aspiration and I AND D done by Dr. Hammond 02/04 of R 1st toe. Some crystals seen. Gram stain neg for bacteria. Staph aureus pcr neg. On vanc/zosyn. Will continue abx for now while cxs pending. 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 Uric acid was normal. ESR elevated at 42. Will follow, thank you. 02/05/18 1125 <Electronically signed by Syeda Palmer MD> Date Syeda Palmer MD Cosigner Signature (if applicable): Date CC: VERONIKA Hammond; Syeda Palmer MD; Baron Pike MD Signed BEDSIDE GLUCOSE Collected: 02/05/2018 Status: F Source: SNYDER 10:40 AM [facility] REPOSITORY TYPE CODE TESTS RESULT OUT OF REFERENCE UNITS RANGE LAB L501.080 70-110 mg/dL High BEDSIDE GLU 284 Result Comment: MANAGEMENT OF PATIENT CARE PER NURSING PROTOCOL Performed By: #### L501.080 #### [facility] [place] [address] CBC W/DIFF, AUTOMATED Collected: 02/05/2018 Status: F Source: SNYDER 9:30 AM [facility] REPOSITORY TYPE CODE TESTS RESULT OUT OF RANGE REFERENCE UNITS LAB L100.1000 4.4-11.0 K/mm3 Normal WBC 10.6 LAB L100.1200 4.2-5.4 M/mm3 Low RBC 4.08 LAB L100.1300 12.0-15.0 g/dl Low HGB 10.2 LAB L100.1400 37-47 % Low HCT 33.7 LAB L100.1500 81-99 fL Normal MCV 82.6 LAB L100.1600 27.0-32.0 pg Low MCH 25.0 LAB L100.1700 32-36 g/gl Low MCHC 30.3 LAB L100.1810 11.6-14.6 % High RDW CV 15.7 LAB L100.1820 35.1-43.9 fl High RDW SD 46.7 LAB L100.1900 150-450 K/mm3 Normal PLT 302 LAB L100.2000 6.2-12.0 fl Normal MPV 8.3 LAB L100.2100 47-70 % High NEUT% 83.2 LAB L100.2200 19-41 % Low LY% 5.7 LAB L100.2300 0-10 % Normal MONO% 9.7 LAB L100.2400 0-5 % Normal EO% 0.9 LAB L100.2500 0-1 % Normal BASO% 0.2 LAB L100.2550 0.0-0.9 % Normal IM GRAN % 0.300 Result Comment: IG% - Immature Granulocytes (promyelocytes, myelocytes and metamyelocytes) > 1% indicates that a LEFT SHIFT is Present. LAB L100.2620 2.0-7.7 X10 3/uL High Absolute Neut 8.8 LAB L100.2720 0.83-4.51 X10 3/ul Low Absolute Lymph 0.60 LAB L100.4500 Normal SMEAR COMMENT COMMENT Result Comment: SLIDE SCANNED - LYMPHOPENIA NOTED. Performed By: #### L100.0100 #### [facility] [address] [place], [address] IRON+IRON BINDING Collected: 02/05/2018 Status: F Source: [facility] 9:30 AM [facility] REPOSITORY TYPE CODE TESTS RESULT OUT OF RANGE REFERENCE UNITS LAB L503.6075 250-450 ug/dL TIBC Normal 323 LAB L503.6150 50-170 ug/dL Low IRON 20 LAB L503.6250 15.0-55.0 % Low IRON SATURATION 6.2 Performed By: #### L503.6030, L503.6550 #### [facility] [address] [place], [address] FERRITIN Collected: 02/05/2018 Status: F Source: SNYDER 9:30 AM [facility] REPOSITORY TYPE CODE TESTS RESULT OUT OF RANGE REFERENCE UNITS LAB L503.6550 8-252 ng/mL Normal FERRITIN 63 Performed By: #### L503.6030, L503.6550 #### [facility] [address] [place], [address] BEDSIDE GLUCOSE Collected: 02/05/2018 Status: F Source: SNYDER 6:38 AM [facility] REPOSITORY TYPE CODE TESTS RESULT OUT OF REFERENCE UNITS RANGE LAB L501.080 70-110 mg/dL High BEDSIDE GLU 209 Result Comment: MANAGEMENT OF PATIENT CARE PER NURSING PROTOCOL Performed By: #### L501.080 #### [facility] Point of Care [address] [place], [place] [address] BEDSIDE GLUCOSE Collected: 02/05/2018 Status: F Source: JEFRY 2:13 AM [facility] REPOSITORY TYPE CODE TESTS RESULT OUT OF RANGE REFERENCE UNITS LAB L501.080 70-110 mg/dL Normal BEDSIDE GLU 109 Result Comment: MANAGEMENT OF PATIENT CARE PER NURSING PROTOCOL Performed By: #### L501.080 #### [facility] Point [facility] Care [address] [place] [address] BEDSIDE GLUCOSE Collected: 02/04/2018 Status: F Source: JEFRY 10:58 PM [facility] REPOSITORY TYPE CODE TESTS RESULT OUT OF RANGE REFERENCE UNITS LAB L501.080 70-110 mg/dL Normal BEDSIDE GLU 89 Result Comment: MANAGEMENT OF PATIENT CARE PER NURSING PROTOCOL Performed By: #### L501.080 #### [facility] Point of Care [address] [place] [address] BEDSIDE GLUCOSE Collected: 02/04/2018 Status: F Source: JEFRY 10:20 PM [facility] REPOSITORY TYPE CODE TESTS RESULT OUT OF REFERENCE UNITS RANGE LAB L501.080 70-110 mg/dL Low BEDSIDE GLU 64 Result Comment: MANAGEMENT OF PATIENT CARE PER NURSING PROTOCOL Performed By: #### L501.080 #### [facility] Point of Care [address] [place] [address] BEDSIDE GLUCOSE Collected: 02/04/2018 Status: F Source: JEFRY 6:58 PM [facility] REPOSITORY TYPE CODE TESTS RESULT OUT OF REFERENCE UNITS RANGE LAB L501.080 70-110 mg/dL High BEDSIDE GLU 119 Result Comment: MANAGEMENT OF PATIENT CARE PER NURSING PROTOCOL Performed By: #### L501.080 #### [facility] Point of Care [address] [place] [address] CRYSTALS, BODY FLUID Collected: 02/04/2018 Status: C Source: JEFRY 6:08 PM [facility] REPOSITORY Order Comment: Order Date: 02/04/18 Comments: Right 1st MTP TYPE CODE TESTS RESULT OUT OF RANGE REFERENCE UNITS LAB L200.4200 Normal SEE PATH REV CRYSTALS/BF LAB L200.4225 Normal SYNOVIAL SOURCE/BF Result Comment: RIGHT 1ST MTP LAB L200.6020 Normal Reviewed PATH REV Result Comment: A few nondescript crystals are noted. (Monosodium urate crystals are not seen). Felipe Olguin M.D. 02/05/18 AMENDED REPORT 02/05/18 1027 PATH REV previously reported as: Will follow Performed By: #### L200.4175 #### [facility] [address] [place], [address] MRSA WOUND DNA BY Collected: 02/04/2018 Status: F Source: JEFRY PCR 6:08 PM [facility] REPOSITORY Order Comment: Order Date: 02/04/18 RIGHT HALLUX ABSCESS TYPE CODE TESTS RESULT OUT OF RANGE REFERENCE UNITS LAB L8200.1100 Negative Normal MRSA Negative RESULT LAB L8200.1150 Negative Normal SA RESULT NEGATIVE Performed By: #### L8200.1075 #### [facility] [address] [place], [address] Observed: 02/04/2018 Status: F Source: JEFRY CULTURE, BODY FLUID 6:08 PM [facility] REPOSITORY Order Date: 02/04/18 Comments: right 1st MTP Gram Stain GRAM STAIN: NO ORGANISMS SEEN CALLED TO Mona FINLEY 02/04/182033 BY [facility] Gram Stain No organisms seen No cells seen Body Fluid Cult Culture exhibits no growth. Cult, Anaerobic No growth in 5 days. Performed By: #### M100.1300 #### [facility] [address] [place], [place], [address] Observed: 02/04/2018 Status: F Source: JEFRY CULTURE, DEEP WOUND 6:08 PM [facility] REPOSITORY RIGHT HALLUX ABSCESS Comments: DONE IN er Gram Stain Gram Stain 3+ Red Cell Stroma No organisms seen Wound Culture No growth aerobically. Cult, Anaerobic No growth in 5 days. Performed By: #### M100.1500 #### [facility] [address] [place], [address] HISTORY AND PHYSICAL Observed: 02/04/2018 Status: F Source: JEFRY EXAM 5:16 PM [facility] REPOSITORY [facility] Medical Records Department [facility] [place] [address] History and Physical 02/04/188 MR#: [id number] Acct: [id number] Name: VENITA SMITH Rep #: [id number] : 1950 67 From: Milena Nielosn PCP: Shahzad HOYOS,Baron Chi Status: ADM IN Y Location: [place] [address] Problem List (1) Infectious arthritis Status: Acute (2) Obesity (BMI 30.0-34.9) Status: Chronic (3) ELDER (obstructive sleep apnea) Status: Chronic (4) COPD (chronic obstructive pulmonary disease) Status: Chronic Qualifiers: COPD type: unspecified COPD Qualified Code(s): J44.9 - Chronic obstructive pulmonary disease, unspecified (5) Neuropathic pain Status: Chronic (6) Allergic rhinitis Status: Chronic Qualifiers: Allergic rhinitis trigger: unspecified Allergic rhinitis seasonality: unspecified seasonality Qualified Code(s): J30.9 - Allergic rhinitis, unspecified (7) Asthma Status: Chronic Qualifiers: Asthma severity: unspecified severity Asthma persistence: unspecified Asthma complication type: unspecified Qualified Code(s): J45.909 - Unspecified asthma, uncomplicated (8) Osteoarthritis Status: Chronic Qualifiers: Osteoarthritis location: unspecified site Osteoarthritis type: unspecified Qualified Code(s): M19.90 - Unspecified osteoarthritis, unspecified site (9) Hyperlipidemia Status: Chronic Qualifiers: Hyperlipidemia type: unspecified Qualified Code(s): E78.5 - Hyperlipidemia, unspecified (10) Hypertension Status: Chronic Qualifiers: Hypertension type: essential hypertension Qualified Code(s): I10 - Essential (primary) hypertension (11) Type 2 diabetes mellitus Status: Chronic Qualifiers: 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: with detention use Diabetes mellitus complication status: with unspecified complications Qualified Code(s): E11.8 - Type 2 diabetes mellitus with unspecified complications; Z79.4 - group home (current) use of insulin History of Present Illness Date of Admission: 02/04/18 Chief Complaint: BL 1st MTP redness, pain, edema, L elbow pain The patient is a 67 y/o F w/ PMHx: Obesity, Chronic COPD/Asthma, HTN, HLD, Allergic Rhinitis, ELDER, GERD, Tobacco use who presents to the [facility] ED on 02/04/18 with history of onset over the last 48 hours of initially R 1st MTP edema, pain, redness and mildly fluctuant region followed by onset L 1st MTP redness, pain, edema in addition to L elbow pain although no associated redness or marked edema without fever or chills. In the ED work-up included T 98.3, heart rate 98, BP 133/80, respiratory rate 16, 98% on room air, CBC with WBC 10.5, hemoglobin 11, platelet 312 with left shift, ESR 42, BMP with glucose 198, CRP 65.8, blood culture 2 pending per ED, Plain film of the foot with soft tissue edema overlying the medial aspect of the proximal phalanx of the great toe and dorsal aspect of the foot. In the ED patient administered Zosyn therapy. In the ED podiatry consulted and planned in ED aspiration of R 1st MTP and I+D of fluctuant region. Past Medical History Past Medical History (Chronic Problems): Chronic Problems (Last Reviewed 11/22/17 @ 13:19 by Sherie Alves) Obesity (BMI 30.0-34.9) (Chronic) HERNANDEZ (dyspnea on exertion) (Chronic) ELDER (obstructive sleep apnea) (Chronic) COPD (chronic obstructive pulmonary disease) (Chronic) Neuropathic pain (Chronic) Allergic rhinitis (Chronic) Asthma (Chronic) Mild asthma (Chronic) Osteoarthritis (Chronic) Hyperlipidemia (Chronic) Hypertension (Chronic) Type 2 diabetes mellitus (Chronic) Allergies No Known Allergies Allergy (Verified 02/04/18 14:51) Home Medications: Ambulatory Orders Medication Instructions Recorded Atorvastatin Calcium [Lipitor] 80 mg PO QHS 01/18/17 Surgical History: - - Hysterectomy, tonsillectomy, appendectomy, BLTL. 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 Tobacco Use: Non-smoker Alcohol: None Drugs: None - *Family History Maternal History Items: Diabetes, Pulmonary Disease Paternal History Items: - - Patient notes father with possible history of Crohn's disease. Sibling History Items: Diabetes, Heart Disease, - - ELDER Review of Systems Constitutional: Reports: Malaise, Weakness, Fatigue. Denies: Chills, Fever, Weight Change HEENT: Denies: Head Aches, Sinus Congestion, Sinus Drainage Cardiovascular: Denies: Chest Pain, Palpitations Respiratory: Denies: Cough, Shortness of breath at rest, Sputum production Gastrointestinal: Denies: Abdominal Pain, Nausea, Vomiting Genitourinary: Denies: Dysuria Musculoskeletal: Reports: Arm Pain, Foot Pain, Joint stiffness, Joint swelling, Joint Tenderness. Denies: Joint Pain Skin: Reports: Skin Changes. Denies: Rash, Wounds Neurological: Denies: Numbness, Tingling, Focal weakness Psychiatric: Denies: Anxiety, Depression, Homicidal Ideations, Suicidal Ideations Hematologic/ Lymphatic: Denies: Easy Bruising, Easy Bleeding VTE Information - Inpt Only VTE Present on Admission: No VTE Mechan Device Prophylaxis: SCD's VTE Pharm Prophylaxis ordered?: Yes Patient Problems: Active and Suspected Problems (Last Reviewed 11/22/17 @ 13:19 by Sherie Alves) Infectious arthritis (Acute) Subjective: Seated upright in the ED bed, ongoing pain to the extremities. Objective: Physical Examination: General: awake, alert, oriented x 3 and cooperative, seated upright in the ED bed in no apparent distress. Skin: normal color, turgor, no icterus, cyanosis except BL, 1st MTP redness, edema, TTP, R>L, fluctuant region over the R 1st MTP, extremity primarily upper diffuse various staged ecchymoses. HEENT: AT/NC, EOMI, PERRLA, MMM, no carotid bruits or JVD noted. Lungs: CTA bilaterally, moderate effort, mild decrease BL bases, no rales, ronchi or wheezing. Heart: Regular rate and rhythm; no gallop, rub audible. Abdomen: soft, obese, NTTP, ND, normal BS, no HSM. Extremities: no cyanosis, clubbing, see skin, 2+ edema, BL LE ankle to distal barboza, R>L, L elbow TTP and movement, no redness or edema or fluctuance. Neurological: patient awake, alert, oriented x 3; cognitive function intact; pupils equally reactive to light and accomodation; cranial nerves II-XII grossly normal, moving all 4 extremities, no focal deficits, strength moderately globally decreased to severely globally decreased secondary to acute presentation. Psychiatric: affect appears normal, no acute evidence of depressive or anxiety feelings. - Physical Exam Vital Signs Temp Pulse Resp BP Pulse Ox 98.3 F 98 16 133/80 H 98 02/04/18 14:49 02/04/18 14:49 02/04/18 14:49 02/04/18 14:49 02/04/18 14:49 Oxygen Delivery Method Room Air Weight: 170 lb Body Mass Index (BMI) 31.1 Laboratory Tests Past 24 Hrs WBC 10.5 RBC 4.48 Hgb 11.0 L Hct 36.9 L MCV 82.4 MCH 24.6 L MCHC 29.8 L RDW 15.8 H RDW Differential 47.7 H Plt Count 312 Assessment/Plan Active and Suspected Problems (Last Reviewed 11/22/17 @ 13:19 by Sherie Alves) Infectious arthritis (Acute) The patient is a 67 y/o F w/ PMHx: Obesity, Chronic COPD/Asthma, HTN, HLD, Allergic Rhinitis, ELDER, GERD, Tobacco use who presents to the [facility] ED on 02/04/18 with history of onset over the last 48 hours of initially R 1st MTP edema, pain, redness and mildly fluctuant region followed by onset L 1st MTP redness, pain, edema in addition to L elbow pain although no associated redness or marked edema without fever or chills. (1) Infectious Arthritis, RLE R 1st MTP, L 1st MTP, L Elbow Edema, Redness, Pain complicated by Diabetes mellitus type II, Possible Osteomyelitis: Elevated ESR, CRP, plain film with edema. Pending podiatry aspiration and I+D fluctuant region. Will admit to [facility], maintain on IV vanc and zosyn, requested podiatry to also obtain Wound Cx/MRSA, plan repeat CBC in AM, continue affected extremity elevation above heart when seated and in bed, monitor erythema outline with VS checks, obtain Wound RN consultation, obtain Dr. Hammond consultation, obtain ID consultation, obtain DVT US BL LE. Uric acid pending. (2) Hypertension: Continue home regimen including lisinopril, triamterene, hydrochlorothiazide, verapamil, PRN hydralazine. (3) Hyperlipidemia: Continue home statin regimen. (4) Diabetes mellitus type II w/ neuropathy: Hold oral home regimen, continue home insulin regimen, ADA diet, accu checks w/ ISS, continue home gabapentin regimen, HgbA1c pending. (5) Chronic COPD/Asthma: ATC duonebs, PRN albuterol, HOB, IS parameters, continue home Singulair regimen. (6) Hx Tobacco Abuse: Encouraged continued cessation. (7) Obesity: Weight loss and lifestyle changes encouraged. (8) ELDER: CPAP nightly. (9) DVT Prophylaxis: SCDs, lovenox. Code Visit Inpatient Gali AND M: [id number] Init Hosp L3 02/04/18 1716 <Electronically signed by Milena Nielson > Date Milena Nielson Cosigner Signature: Date (if applicable) CC: Milena Nielson; Baron Pike MD Signed EMERGENCY DEPARTMENT Observed: 02/04/2018 Status: F Source: SNYDER SUMMARY 4:29 PM [facility] REPOSITORY [facility] Medical Records Department [address] [place] [id number] Emergency Department Summary 02/04/18 1625 MR#: [id number] Acct: [id number] Name: VENITA SMITH Rep #: [id number] : 1950 67 From: Gray Lambert MD PCP: Baron Pike MD, Chi Status: REG ER - ER Visit Summary Date of Service: 02/04/18 Chief Complaint: Right foot redness and pain History of Present Illness: The patient is a 67 F diabetic female who presents with redness swelling and pain of her right foot. She first noticed it yesterday but it is significantly worse today. She has noticed redness pain and swelling over her right foot at the base of the great toe. She has also noted some mild redness overlying the left foot at the base of the great toe as well as over the left elbow. No history of prior similar symptoms. She denies any systemic symptoms such as fevers nausea vomiting diarrhea. She does not recall any injuries. No history of gout. Physical Examination: Afebrile vitals are stable Moist mucous membranes Heart regular rate and rhythm Lungs are clear Abdomen soft Patient has bilateral symmetric pedal edema she has palpable dorsalis pedis pulses there is significant erythema overlying the right first MTP joint and an area of fluctuance concerning for abscess over the medial side of the right great toe and first MTP she does have good short arc range of motion There is mild erythema over the medial left foot and first MTP as well with mild tenderness but active full range of motion brisk capillary refill Mild erythema over the left elbow active full range of motion without pain no swelling Normal right upper extremity Test Results: Laboratory studies notable for CRP of 65.8. White blood cell count normal. ESR and uric acid are pending at the time of this dictation. Right foot x-ray shows soft tissue swelling of the medial side of the proximal phalanx of the great toe and dorsum of the foot Emergency Department Course and Treatment: Patient has a polyarthritis. Given her exam findings at the right first MTP I am concerned for possible septic arthritis. The patient was empirically treated with Zosyn. Cultures were also obtained. I spoke to Dr. Hammond, podiatry pharmacy operations coordinator who will see the patient in consult and patient will be admitted to the hospitalist service. Treatment Plan: [] Disposition: Admit Impression: Polyarthritis Cellulitis right foot Possible septic arthritis of right first MTP This note was generated with [employer] dictation software. It may contain incorrect words, spelling, and punctuation that were not noted in review of the chart prior to signing ED Disposition - Plan for ED Patient: Chief Complaint: Wound Referrals: Baron Pike Chi, MD [Primary Care Provider] - What to do if you have Problems For any increased pain, shortness of breath, bleeding, nausea or vomiting, chest pain, or any unexpected problems, contact your Primary Care Provider. Call [facility] ([phone]) or report to the closest Emergency Room. Call 911 if necessary. 02/04/18 5706 <Electronically signed by Gray Lambert MD> Date Gray Lambert MD Cosigner Signature (If Indicated): Date CC: Baron Pike MD BASIC METABOLIC Collected: 02/04/2018 Status: F Source: SNYDER PROFILE (BMP) 3:20 PM [facility] REPOSITORY TYPE CODE TESTS RESULT OUT OF RANGE REFERENCE UNITS LAB L501.0100 74-106 mg/dL High GLU 198 Result Comment: Fasting Glucose result greater than or equal to 126 mg/dL suggests DIABETES MELLITUS per A.D.A. criteria. Please note revised GLUCOSE reference range effective 2017. LAB L501.1000 7-18 mg/dL Normal BUN 12 LAB L501.1100 0.55-1.02 mg/dL Normal CREAT,SERUM 0.74 Result Comment: The validity of the calculated GFR AND GFRAA in patients over 70 years has not been determined. Clinical correlation is essential. LAB L501.1110 >60 mL/min Normal EST GFR 82 Result Comment: Non- GFR Calc LAB L501.1115 >60 mL/min Normal EST GFR - AA 100 Result Comment: GFR Calc LAB L501.1255 ml/min Normal Estimated CRCL 42.59 LAB L501.1300 10-20 RATIO Normal BUN/CRE 16.1 LAB L501.2200 8.5-10 mg/dL Normal .1 CA 9.3 LAB L501.5300 136-14 mmol/L Normal 5 NA 136 LAB L501.5600 3.5-5. mmol/L Normal 1 K 4.0 LAB L501.5900 98-107 mmol/L Normal CL 98 LAB L501.6100 21.0-3 mmol/L Normal 2.0 CO2 31.0 LAB L501.6200 5-15 Normal GAP 7 Performed By: #### L500.2500, L501.6710 #### [facility] [address] [place], [place], [address] CRP Collected: 02/04/2018 Status: F Source: SNYDER 3:20 PM [facility] REPOSITORY TYPE CODE TESTS RESULT OUT OF RANGE REFERENCE UNITS LAB L501.6710 0.0-3.0 mg/L High 65.80 C-REACTIVE PROT Result Comment: C-Reactive Protein (CRP) provides useful information for the diagnosis, therapy and monitoring of inflammatory processes and associated diseases. For the evaluation of Relative Risk for Cardiovascular Disease, a High Sensitivity CRP (HSCRP) should be ordered. Performed By: #### L500.2500, L501.6710 #### [facility] [address] [place], [place], [address] CBC W/DIFF, AUTOMATED Collected: 02/04/2018 Status: F Source: SNYDER 3:20 PM [facility] REPOSITORY TYPE CODE TESTS RESULT OUT OF RANGE REFERENCE UNITS LAB L100.1000 4.4-11.0 K/mm3 Normal WBC 10.5 LAB L100.1200 4.2-5.4 M/mm3 Normal RBC 4.48 LAB L100.1300 12.0-15.0 g/dl Low HGB 11.0 LAB L100.1400 37-47 % Low HCT 36.9 LAB L100.1500 81-99 fL Normal MCV 82.4 LAB L100.1600 27.0-32.0 pg Low MCH 24.6 LAB L100.1700 32-36 g/gl Low MCHC 29.8 LAB L100.1810 11.6-14.6 % High RDW CV 15.8 LAB L100.1820 35.1-43.9 fl High RDW SD 47.7 LAB L100.1900 150-450 K/mm3 Normal PLT 312 LAB L100.2000 6.2-12.0 fl Normal MPV 8.3 LAB L100.2100 47-70 % High NEUT% 78.3 LAB L100.2200 19-41 % Low LY% 10.5 LAB L100.2300 0-10 % Normal MONO% 9.9 LAB L100.2400 0-5 % Normal EO% 1.0 LAB L100.2500 0-1 % Normal BASO% 0.1 LAB L100.2550 0.0-0.9 % Normal IM GRAN % 0.200 Result Comment: IG% - Immature Granulocytes (promyelocytes, myelocytes and metamyelocytes) > 1% indicates that a LEFT SHIFT is Present. LAB L100.2620 2.0-7.7 X10 3/uL High Absolute Neut 8.3 LAB L100.2720 0.83-4.51 X10 3/ul Normal Absolute Lymph 1.10 Performed By: #### L100.0100, L101.9900 #### [facility] [address] [place], [address] ERYTHROCYTE SED RATE Collected: 02/04/2018 Status: F Source: JEFRY 3:20 PM [facility] REPOSITORY TYPE CODE TESTS RESULT OUT OF RANGE REFERENCE UNITS LAB L102.0000 0-30 mm/hr High SED RATE 42 Performed By: #### L100.0100, L101.9900 #### [facility] [address] [place], [address] URIC ACID Collected: 02/04/2018 Status: F Source: JEFRY 3:20 PM [facility] REPOSITORY TYPE CODE TESTS RESULT OUT OF RANGE REFERENCE UNITS LAB L501.1400 2.6-6.0 mg/dL Normal URIC 3.6 Result Comment: The drugs N-Acetylcysteine and Metamizole may falsely depress this assay. Performed By: #### L501.1400 #### [facility] [address] [place], [address] MAGNESIUM Collected: 02/04/2018 Status: F Source: JEFRY 3:20 PM [facility] REPOSITORY TYPE CODE TESTS RESULT OUT OF RANGE REFERENCE UNITS LAB L501.5200 1.6-2.6 mg/dL Low MG 1.3 Performed By: #### L501.5200 #### [facility] [address] [place], [address] HEMOGLOBIN A1C Collected: 02/04/2018 Status: F Source: JEFRY 3:20 PM [facility] REPOSITORY TYPE CODE TESTS RESULT OUT OF RANGE REFERENCE UNITS LAB L501.9985 4.2-6.3 % High HGB A1C 8.9 Performed By: #### L501.9985 #### [facility] [address] [place], [address] Observed: 02/04/2018 Status: F Source: JEFRY CULTURE, BLOOD (WB) 3:20 PM [facility] REPOSITORY BC No growth in 5 days. Performed By: #### M200.1000 #### [facility] [address] [place], [address] FOOT MIN 3 VIEWS Observed: 02/04/2018 Status: F Source: JEFRY 3:11 PM [facility] REPOSITORY [facility] Imaging Services [address] [place] [address] Foot min 3 Views MR#: [id number] Acct: [id number] Name: VENITA SMITH Rep #: [id number] : 1950 F 67 From: Mack Browne MD PCP: Shahzad HOYOS,Baron Bryant Status: REG ER Study: Foot min 3 Views Date of Exam: 02/04/18 Exam# [id number] Ordering Dr: Gray Lambert MD STUDY: X-RAY - RIGHT FOOT CLINICAL: Female, 67 years old. Soft tissue wound involving the first metatarsophalangeal joint. TECHNIQUE: 3 view(s) of the foot. COMPARISON: None. FINDINGS: There is a plantar calcaneal spur. Normal visualized subtalar, talonavicular, calcaneocuboid, tarsal and tarsometatarsal articulations. Normal metatarsi. Normal metatarsophalangeal joint of the great toe. Normal tibial and fibular sesamoid bones. Normal interphalangeal joint of the great toe. Normal phalanges of the great toe. Normal second through fifth metatarsophalangeal joints. Normal interphalangeal joints and phalanges of the lesser toes. Soft tissue swelling overlying the medial aspect of the proximal phalanx of the great toe and dorsal aspect of the foot.. RAD/Foot min 3 Views IMPRESSION: Soft tissue swelling overlying the medial aspect of the proximal phalanx of the great toe and dorsal aspect of the foot. 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 [place] [address] OFFICE VISIT Date of Service: 11/22/17 MR#: [id number] Acct: [id number] Name: VENITA SMITH Rep #: [id number] : 1950 Provider: Al Barnes D.O. Age/Sex: 67/F [facility] Status: Signed Assessment AND Plan 1. ELDER (obstructive sleep apnea) G47.33 Plan The patient's sleep symptoms are currently well controlled on her current BiPAP settings of 13/9 cm of water with humidification. The patient has been compliant with its use. She was advised that a portable concentrator can be rendered from [employer] or her upcoming trip in February, as she does have a 2 L/min supplemental oxygen bleed in on her BiPAP machine. 2. COPD (chronic obstructive pulmonary disease) J44.9 Plan The patient has only a mild obstructive impairment noted on her last PFTs. She is rather asymptomatic from a respiratory standpoint. Continue the use of albuterol on an as-needed basis. To date, the patient has not had to routinely utilize her albuterol metered-dose inhaler. Plan Detail Follow Up 6 Months (CSM) HPI HPI Comments Details: The patient is a 67-year-old female who presents to the clinic today for a routine scheduled follow-up office visit due to underlying obstructive sleep apnea. If you recall, pulmonary function testing completed in March 2017 revealed the presence of a mild large airways obstructive ventilatory defect with an associated significant response to aerosolized bronchodilators, hyperinflation, air trapping and a mild reduction in diffuse opacity. The patient was reportedly seen previously by an assistant site manager and diagnosed with asthma. 6 minute walk test did reveal evidence of significant exertional oxygen desaturation, but did not meet inclusion criteria with use of supplemental oxygen. Patient does have a limited smoking history, having quit completely 24 years ago. She also underwent evaluation with a polysomnogram, which revealed evidence of obstructive sleep apnea, for which was recommended that she be placed on BiPAP therapy at a pressure setting of 17/11 cm of water. The patient's compliance report was personally reviewed at today's office visit. Over the last 30 days, she has demonstrated 100% compliance. She is currently utilizing her BiPAP on average just under 8 hours per night. She has a current pressure setting of 13/9 cm water with medication. She has a residual AHI noted to be 2.1. No significant air leaks were noted. The patient reports feeling rested upon awakening in the morning. She denies the presence of excessive daytime sleepiness. She does report occasional afternoon napping, although infrequent. She is currently utilizing a full facemask and receives her equipment and supplies through [facility]. Denies any significant shortness of breath. She is not currently utilizing any inhalers at her baseline. However, she does have access to an albuterol metered-dose inhaler, which she reports she has not needed to utilize. The patient has an upcoming trip planned in February to go to [place] with her family. She denies the presence of fevers, chills or night sweats. Her weight has been stable. She denies chest pain, dizziness or lightheadedness. Intake Vital Signs11/22/17 Height 5 ft 3 in 11/22/17 Weight: 164 lb Intake Visit Reasons: 3 M FU [facility] [place]: [facility] Allergies No Known Allergies Allergy (Verified 09/18/17 14:57) Medications Atorvastatin Calcium [Lipitor] 80 mg PO QHS 01/18/17 [History Confirmed 09/18/17] Cetirizine HCl [Zyrtec] 10 mg PO DAILY 01/18/17 [History Confirmed 09/18/17] Cyanocobalamin [Vitamin B12] 1,000 mcg PO DAILY@0800 01/18/17 [History Confirmed 09/18/17] Estropipate [Ogen (G)] 0.75 mg PO DAILY 01/18/17 [History Confirmed 09/18/17] Lisinopril [Prinivil] 10 mg PO DAILY 01/18/17 [History Confirmed 09/18/17] Montelukast [Singulair] 10 mg PO DAILY 01/18/17 [History Confirmed 09/18/17] Triamterene 37.5MG/Hctz 25MG [Dyazide (G)] 1 cap PO DAILY 01/18/17 [History Confirmed 09/18/17] Verapamil HCl [Verapamil ER] 240 mg PO DAILY 01/18/17 [History Confirmed 09/18/17] gabapentin 300 mg capsule 600 mg PO TID cap 08/23/17 [History Confirmed 09/18/17] metformin 1,000 mg tablet 1,000 mg PO BIDCM tab 08/23/17 [History Confirmed 09/18/17] multivitamin tablet 1 tab PO QAM 08/23/17 [History Confirmed 09/18/17] omeprazole 40 mg capsule,delayed release 40 mg PO DAILY 08/23/17 [History Confirmed 09/18/17] Diclofenac Sodium 25 mg PO DAILY 09/18/17 [History Confirmed 09/18/17] Glimepiride [Amaryl] 4 mg PO DAILY 09/18/17 [History Confirmed 09/18/17] Hydrocodone/Acetaminophen [[place] 5-325 Tablet] 1 ea PO BID 09/18/17 [History Confirmed 09/18/17] Insulin NPH Human Isophane [Novolin N] 40 unit SQ BID 09/18/17 [History Confirmed 09/18/17] Liraglutide [Victoza] 1.2 mg SQ DAILY 09/18/17 [History Confirmed 09/18/17] Loratadine 10 mg PO DAILY 09/18/17 [History Confirmed 09/18/17] Prednisone 10 mg PO DAILY 09/18/17 [History Confirmed 09/18/17] [facility] Medical History Suspected sleep apnea (Acute) Fall (Acute) COPD (chronic obstructive pulmonary disease) (Chronic) Neuropathic pain (Chronic) Allergic rhinitis (Chronic) Asthma (Chronic) Community acquired pneumonia (Acute) Rhabdomyolysis (Acute) Acute kidney injury (Acute) Mild asthma (Chronic) Osteoarthritis (Chronic) Hyperlipidemia (Chronic) Hypertension (Chronic) Type 2 diabetes mellitus (Chronic) Abnormal echocardiogram (Chronic) Cardiomegaly (Chronic) GERD (gastroesophageal reflux disease) (Chronic) Hypertriglyceridemia (Chronic) Hypoxia (Chronic) ELDER (obstructive sleep apnea) (Chronic) Tobacco use (Chronic) Vitamin D deficiency (Chronic) Surgical History H/O adenoidectomy (Resolved) History of appendectomy (Resolved) History of carpal tunnel release (Resolved) History of hysterectomy (Resolved) History of tonsillectomy (Resolved) Family History Mother Colon cancer Social History Smoking Status: Former smoker quit date: 09/17/90 pack-years: 52 how long ago did patient quit smokin second hand exposure: No alcohol intake: never substance use type: does not use Review of Systems Const CONSTITUTIONAL: Positive fatigue; negative anorexia, body ache, chills, daytime sleepiness, fever(s), night sweats, oral thrush, stops breathing during sleep, weight loss, sleeping in chair, weight loss, weight gain, frequent colds, seasonal allergies, other, headache(s) or orthopnea EETM Ear Nose Throat Mouth: Positive hearing normal; negative hard of hearing, hoarseness, dry mouth in morning, change in vision, itchy eyes, eye pain, swallowing Difficulty, ear pain, nose bleed, headache(s), mouth pain, nasal congestion, nasal discharge, post nasal drip, sinus pain, sinus pressure, sore throat or other Cardio Cardiovascular: Negative chest pain, chest pain at rest, chest pain with activity, irregular heart rhythm, edema, shortness of breath when lying down, palpitations, murmur or other Resp Respiratory: Positive as per HPI; negative shortness of breath, pain with cough, wheezing, chest congestion, cough, chest tightness, pain on inspiration, inhalers, increase use of rescue inhalers, snoring, apnea or other Gastro Gastrointestional: Negative bloody stools, change in appetite, difficulty swallowing, reflux, hematemesis, melena stool, loose stool, constipation or other Genitourinary: Negative blood in urine, nocturia, pain with urination or other Musc Musculoskeletal: Negative body pain, back pain, neck pain or other Lymph Lymphatic: Negative swollen lymph nodes Exam Const Constitutional: Positive conversant, cooperative, in no acute respiratory distress, well developed, well nourished and good hygiene Head Head: Positive normocephalic and atraumatic; negative cyanosis of lips/distal nose Eyes Eye: Positive clear conjunctiva; negative nystagmus or scleral abnormality Ears Ear: Positive hearing normal and external ears normal; negative hard of hearing Nose Nose: Positive external nose normal; negative epistaxis Mouth Mouth: Positive oral mucosae normal and posterior oropharynx is adequate; negative no lesions or post nasal drip Mallampati Score: II: Mallampati Score Neck Neck: Positive normal visual inspection and trachea midline; negative lymphadenopathy Chest Wall Chest: Positive symmetric chest movement Normal AP diameter. Resp lung sounds: Positive clear to auscultation and good air exchange; negative wheezes, rhonchi or rales Cardio Cardiac: Positive regular rate, regular rhythm, S1 normal and S2 normal; negative rub, gallop or murmur GI GI: Positive normal bowel sounds Soft without distention Genitourinary: Positive deferred Musc Musculoskeletal: Positive steady gait Skin Pulmonary Skin Exam: Positive intact; negative lesion, ulcers or dermal atrophy Pulses Pulse: Yes Pedal pulses present: Extremities Extremities: No clubbing, No cyanosis, No edema Neuro Neurologic: Yes conversant, Yes no focal neuro deficits, Yes cooperative Lymph Lymphatic: No lymphadenopathy Psych Appearance: Positive grossly normal Mental Status: Positive mental status grossly normal Mood: Positive congruent mood Affect: Positive normal affect Coding Level of Care Code Off vis,est,level 3 Diagnoses ELDER (obstructive sleep apnea) G47.33 COPD (chronic obstructive pulmonary disease) J44.9 11/23/17 0744 <Electronically signed by Al Barnes DO> Date Al Barnes DO Cosigner Signature: Date (if applicable) CC: Baron Pike MD ALLERGIES ALLERGIES DATE TYPE / CODE NAME / CODE REACTION SEVERITY SOURCE 10/04/2018 Drug lisinopril/F0060 Other Unknown [place] [facility] Allergy/416 15201(RXNORM) Hospital 364630(SNOM Repository ED CT) 10/04/2018 Drug metronidazole/F0 Other Unknown [place] [facility] Allergy/416 45799759(RXNORM) Hospital 766586(SNOM Repository ED CT) 02/04/2018 Drug No Known Unknown [place] [facility] Allergy/416 Allergies/B98638 Hospital 653528(SNOM 0388(RXNORM) Repository ED CT) /[id number] NO KNOWN [facility] 6(SNCellNovo ALLERGIES [facility]) Repository ENCOUNTERS ENCOUNTERS ADMIT/DISCHARGE ACCOUNT NUMBER ADMITTING ENCOUNTER LOCATION SOURCE CLASS 10/10/2018 [id number] Ambulatory [facility] ding:OLS.AVE Repository D 10/09/2018 [id number] Ambulatory [facility] ding:OLS.AVE Repository D 10/04/2018/10/08/19 [id number] Johnny Landrum Inpatient [place] ding:PCURoom Repository : VBI754Zbe: 1 10/04/2018 [id number] Johnny Landrum Ambulatory [facility]MS[facility] [place] [facility] [place] 10/04/2018 [id number] Johnny Landrum Ambulatory BMSBuilding: [place] BMS.[facility] Repository 10/04/2018 [id number] Johnny Landrum Ambulatory B[place]Building: [place] [facility] [place] 10/04/2018 [id number] Johnny Landrum Ambulatory BMSBuilding: [place] BMS.[facility] Repository 10/04/2018 [id number] Johnny Landrum Ambulatory BMSBuilding: [place] [facility] [place] 10/04/2018 [id number] Johnny Landrum Ambulatory BMSBuilding: [place] BMS.[facility] Repository 10/04/2018 [id number] Johnny Landrum Ambulatory BMSBuilding: [place] BMS.[facility] Repository 10/04/2018 [id number] Johnny Landrum Ambulatory BMSBuilding: [place] BMS.CF.[facility] Repository 10/04/2018 [id number] Johnny Landrum Ambulatory BMSBuilding: [place] BMS.[facility] Repository 10/04/2018 [id number] Johnny Landrum [facility] [place] [facility] 09/27/2018 [id number] Ambulatory [facility] ding:OLS.AVE Repository C 09/20/2018 [id number] Ambulatory [facility] ding:OLS.AVE Repository C 09/13/2018 [id number] Ambulatory [facility] ding:OLS.AVE Repository C 09/11/2018 [id number] Ambulatory [facility] ding:OLS.AVE Repository C 08/02/2018 [id number] Inpatient [facility] Repository ng:H.SD 06/25/2018/09/09/20 [id number] Ambulatory [address] Repository ng:H.LTAC(6M )Room: 6M696 06/24/2018/06/25/20 [id number] sc Miranda, Inpatient [address] Repository ng:H.2MRoom: [id number]: 06/17/2018 [id number] Inpatient [facility] Repository ng:H.SD 05/31/2018 [id number] Inpatient [facility] Repository ng:H.SD 05/23/2018 [id number] Ambulatory [facility]: [place] [facility] [place] 05/09/2018/06/24/20 [id number] Ambulatory [address] Repository ng:H.LTAC(6M )Room: 6M696 05/06/2018/05/09/20 [id number] Frankie Snell [address] Repository ng:H.10MRoom : VX97Pyf: 05/03/2018/05/06/20 [id number] [facility] Inpatient [address] ding:PCURoom Repository : BCF270Jbi: 05/03/2018 [id number] [facility] Ambulatory BMSBuilding: [place] BMS.[facility] Repository 05/03/2018 [id number] [facility] Ambulatory BMSBuilding: [place] BMS.[facility] Repository 05/03/2018 [id number] [facility] Ambulatory BMSBuilding: [place] BMS.[facility] Repository 05/03/2018 [id number] GloryLorne mcconnell Ambulatory BMSBuilding: [place] BMS.[facility] Repository 05/03/2018 [id number] Ambulatory [facility] ding:OLS.AVE Repository B 05/02/2018 [id number] Ambulatory [facility] ding:OLS.AVE Repository B 05/01/2018 [id number] Ambulatory [facility] ding:OLS.AVE Repository B 04/30/2018 [id number] Ambulatory [facility] ding:OLS.AVE Repository B 04/30/2018 [id number] Ambulatory [facility] ding:OLS.AVE Repository B 04/29/2018 [id number] Ambulatory [facility] ding:OLS.AVE Repository B 04/28/2018 [id number] [facility] ding:OLS.AVE Repository B 04/26/2018 [id number] Ambulatory [facility] ding:OLS.AVE Repository B 04/05/2018 [id number] Inpatient [facility] Repository ng:JONATHAN 03/19/2018 [id number] Ambulatory BMSBuilding: [place] BMS.[facility] Repository 03/11/2018 [id number] Ambulatory [facility]:AGVASACC 03/08/2018/04/24/20 [id number] Ambulatory [address] Repository ng:HCieraLTAC(6M )Room: 6M689 03/03/2018/03/08/20 [id number] [place] [place] Inpatient [address] ding:US6Umsq Repository : AL164Ksq: 1 03/03/2018 [id number] [place] [place] Ambulatory BMSBuilding: [place] BMS.[facility] Repository 03/03/2018 [id number] [place] [place] Ambulatory BMSBuilding: [place] BMS.[facility] Repository 03/03/2018 [id number] [place] [place] Ambulatory BMSBuilding: [place] BMS.[facility] Repository 03/03/2018 [id number] [place] [place] Ambulatory BMSBuilding: [place] BMS.[facility] Repository 03/03/2018 [id number] [place] [place] Ambulatory BMSBuilding: [place] BMS..[facility] Repository 03/03/2018 [id number] [place] [place] Ambulatory BMSBuilding: [place] BMS.[facility] Repository 03/03/2018 [id number] [place] [place] Ambulatory BMSBuilding: [place] BMS.[facility] Repository 03/03/2018 [id number] [place] [place] Ambulatory BMSBuilding: [place] BMS.[facility] Repository 02/26/2018/02/27/20 [id number] Ambulatory [address] ding:[id number] Repository oom: MS325 02/25/2018/03/03/20 [id number] Baron Pike Chi Inpatient [address] ding:TCURoom Repository : ZNQ09Hdh: 02/06/2018/02/26/20 [id number] Shilpa DOSS Inpatient [address] MEDICAL Repository CENTERBuildi nRoom: 4224Bed: 02/04/2018/02/07/20 [id number] [facility], [place]patient [place] [facility] ding:ICURoom Repository : HWA44Gul: 1 02/04/2018 [id number] Milena Nielson Ambulatory BMSBuilding: [place] BMS.[facility] Repository 02/04/2018 [id number] Milena Nielson Ambulatory BMSBuilding: [place] BMS.[facility] Repository 02/04/2018 [id number] Abel, Ambulatory BMSBuilding: [place] BMS.[facility] Repository 02/04/2018 [id number] Abel, Ambulatory BMSBuilding: [place] BMS.[facility] Repository 02/04/2018 [id number] Abel, Ambulatory BMSBuilding: [place] [facility] [place] [place] 02/04/2018/02/07/20 [id number] Ambulatory BMSBuilding: [place] 18 BMS.CF.[facility] Repository 02/04/2018/02/07/20 [id number] Ambulatory BMSBuilding: [place] 18 [facility] Repository 11/22/2017/11/23/19 [id number] Ambulatory BMSBuilding: [place] [facility] [place] 10/25/2017/10/25/19 [id number] Ambulatory BMSBuilding: [place] 18 BMS.[facility] Repository PAYERS PAYERS ENCOUNTER GUARANTOR PAYER SUBSCRIBER SOURCE 10/10/2018 VENITA Cordero Primary Insurance:SELF NOT GIVENUNK [facility] [id number] E Number: Effective [facility] Date:2018-10-10 Repository [place], [place] [address]Yea: () 10/09/2018 VENITA Cordero Primary Insurance:SELF NOT GIVENUNK [facility] AT [place] [address] E Number: Effective [facility] Date:2018-10-09 Repository [place], [place] [address]Jtc: () 10/04/2018 VENITA Cordero Primary VENITA Cordero [facility] Insurance:MEDICARE STREETDOB: Community AT [place] [id number] E PART A BPolicy Number: [id number] [facility] [id number] Repository [place] Date:2018-10-04 [place], [place] [address]Rhr: () 10/04/2018 Secondary VENITA Cordero [place] Insurance:AARPPolicy STREETDOB: Community Number: [id number] Hospital [id number] Repository Date:4907-84-53QA [address], [place] [address]XR: 10/04/2018 Tertiary NOT GIVENUNK [place] Insurance:SELF PAY [facility] Number: Effective Repository Date:2018-10-04 10/04/2018 VENITA Cordero Primary VENITA Cordero [facility] Insurance:MEDICARE STREETDOB: Community AT [id number] E PART A BPolicy Number: [id number] Neosho Hospital [id number] Repository [place] Date:2018-10-04 [place], [place] [address]Upi: () 10/04/2018 Secondary VENITA Cordero [place] Insurance:AARPPolicy STREETDOB: Community Number: [id number] Hospital [id number] Repository Date:1225-25-80QD [address], [place] [address]CG: 10/04/2018 Tertiary NOT GIVENUNK [place] Insurance:SELF [facility]Y [facility] Number: Effective Repository Date:2018-10-04 10/04/2018 VENITA Cordero Primary VENITA Capps [facility] Insurance:MEDICARE STREETDOB: Community AT [id number] E PART A BPolicy Number: [id number] Neosho Hospital [id number] Repository [place] Date:2018-10-04 [place], [place] [address]Yfi: () 10/04/2018 Secondary VENITA Capps Insurance:AARPPolicy STREETDOB: Community Number: [id number] Hospital [id number] Repository Date:5499-87-81AZ [address], [place] [address]FG: 10/04/2018 Tertiary NOT GIVENUNK [place] Insurance:SELF PAY [facility] Number: Effective Repository Date:2018-10-04 10/04/2018 VENITA Cordero Primary VENITA Capps [facility] Insurance:MEDICARE STREETDOB: Community AT [id number] E PART A BPolicy Number: [id number] Neosho Hospital [id number] Repository [place] Date:2018-10-04 [place], [place] [address]Pap: () 10/04/2018 Secondary VENITA Capps Insurance:AARPPolicy STREETDOB: Community Number: [id number] Hospital [id number] Repository Date:1473-43-78LE [facility] [address], [place] [address]TO: 10/04/2018 Tertiary NOT GIVENUNK [place] Insurance:SELF PAY [facility] Number: Effective Repository Date:2018-10-04 10/04/2018 VENITA Cordero Primary VENITA Cordero [facility] Insurance:MEDICARE STREETDOB: Community AT [id number] E PART A BPolicy Number: [id number] Neosho Hospital [id number] Repository [place] Date:2018-10-04 [place], [place] [address]Rct: () 10/04/2018 Secondary VENITA Cordero [place] Insurance:AARPPolicy STREETDOB: Community Number: [id number] Hospital [id number] Repository Date:7573-47-11FN [address], [place] [address]LE: 10/04/2018 Tertiary NOT GIVENUNK [place] Insurance:SELF PAY [facility] Number: Effective Repository Date:2018-10-04 10/04/2018 VENITA Cordero [facility]ARE STREETDOB: Community AT [id number] E PART A BPolicy Number: [id number] Neosho Hospital [id number] Repository [place] Date:2018-10-04 [place], [place] [address]Khm: () 10/04/2018 Secondary VENITA Cordero [place] Insurance:AARPPolicy STREETDOB: Community Number: [id number] Hospital [id number] Repository Date:5922-60-55ME [address]YIMQJQ, [place] [address]GX: 10/04/2018 Tertiary NOT GIVENUNK [place] Insurance:SELF PAY [facility] Number: Effective Repository Date:2018-10-04 10/04/2018 VENITA Cordero [facility] Insurance:MEDICARE STREETDOB: Community AT [id number] E PART A BPolicy Number: [id number] Neosho Hospital [id number] Repository [place] Date:2018-10-04 [place], [place] [address]Cmr: () 10/04/2018 Secondary VENITA Cordero [place] Insurance:AARPPolicy STREETDOB: Community Number: [id number] Hospital [id number] Repository Date:1116-61-24VM [address], [place] [address]PM: 10/04/2018 Tertiary NOT GIVENUNK [place] Insurance:SELF PAY [facility] Number: Effective Repository Date:2018-10-04 10/04/2018 VENITA Cordero Primary VENITA Capps [facility] Insurance:MEDICARE STREETDOB: Community AT [id number] E PART A BPolicy Number: [id number] Neosho Hospital [id number] Repository [place] Date:2018-10-04 [place], [place] [address]Snc: () 10/04/2018 Secondary VENITA Cordero [place] Insurance:AARPPolicy STREETDOB: Community Number: [id number] Hospital [id number] Repository Date:8432-64-02JN [address], [place] [address]FS: 10/04/2018 Tertiary NOT GIVENUNK [place] Insurance:SELF PAY [facility] Number: Effective Repository Date:2018-10-04 10/04/2018 VENITA Cordero [facility] Insurance:MEDICARE STREETDOB: Community AT [id number] E PART A BPolicy Number: [id number] Neosho Hospital [id number] Repository [place] Date:2018-10-04 [place], [place] [address]Dex: () 10/04/2018 Secondary VENITA Cordero [place] Insurance:AARPPolicy STREETDOB: Community Number: [id number] Hospital [id number] Repository Date:8284-57-03AM [address], [place] [address]UJ: 10/04/2018 Tertiary NOT GIVENUNK [place] Insurance:SELF PAY [facility] Number: Effective Repository Date:2018-10-04 10/04/2018 VENITA Cordero Primary VENITA Cordero [facility] Insurance:MEDICARE STREETDOB: Community AT [id number] E PART A BPolicy Number: [id number] Neosho Hospital [id number] Repository [place] Date:2018-10-04 [place], [place] [address]Noy: () 10/04/2018 Secondary VENITA Cordero [place] Insurance:AARPPolicy STREETDOB: Community Number: [id number] Hospital [id number] Repository Date:6984-30-13SX [address], [place] [address]HI: 10/04/2018 Tertiary NOT GIVENUNK [place] Insurance:SELF PAY [facility] Number: Effective Repository Date:2018-10-04 10/04/2018 VENITA Cordero Primary VENITA Cordero [facility] Insurance:MEDICARE STREETDOB: Community AT [id number] E PART A BPolicy Number: [id number] Neosho Hospital [id number] Repository [place] Date:2018-10-04 [place], [place] [address]Uwb: () 10/04/2018 Secondary VENITA Cordero [place] Insurance:AARPPolicy STREETDOB: Community Number: [id number] Hospital [id number] Repository Date:1838-64-92AG [address]QFFVTIJ, [place] [address]OF: 10/04/2018 Tertiary NOT GIVENUNK [place] Insurance:SELF PAY [facility] Number: Effective Repository Date:2018-10-04 09/27/2018 VENITA Cordero Primary Insurance:SELF NOT GIVENUNK [place] [address] PAY [facility] Community AT [id number] E Number: Effective [facility] Date:2018-09-27 Rep[place] [address]Kcn: () 09/20/2018 VENITA Cordero Primary Insurance:SELF NOT GIVENUNK [place] [address] PAY INSURANCEPolicy Community AT [id number] E Number: Effective [facility] [place] Date:2018-09-20 Repository [place], [place] [address]Zge: (HP) 09/13/2018 VENITA Cordero Primary Insurance:SELF NOT GIVENUNK [facility] INSURANCEPolicy Community AT [id number] E Number: Effective [facility] [place] Date:2018-09-13 Repository [place], [place] [address]Eex: (HP) 09/11/2018 VENITA Cordero Primary Insurance:SELF NOT GIVENUNK [facility] PAY INSURANCEPolicy Community AT [id number] E Number: Effective [facility] [place] Date:2018-09-11 Repository [place], [place] [address]Wsz: (HP) 08/02/2018 SPECIALTY Primary [facility] Insurance:[address] [address] [place] HOSPITALPolicy Number: [id number]: ([phone] [id number] [phone] (HP) Date:[address] [place], [place] [address]ES: 08/02/2018 Secondary [facility] Number: Repository [id number] Date:2014-08-17[address] CODE [id number][place] [address]KM: 08/02/2018 Tertiary [facility] Medical Insurance:AARP-2ND TO [facility] MEDICAREPolicy Number: Repository [id number] Date:6501-85-96BI [address]YY[place], [place] [address]WV: 06/25/2018 SPECIALTY Primary [facility] Insurance:[address] Repository [address] MARIE [place] HOSPITALPolicy Number: [id number]: ([phone] [id number] [phone] (HP) Date:1320 [place], [place] [address]VR: 06/25/2018 Secondary [facility] Medical Insurance[facility] cy Number: Repository [id number] Date:2014-08-17[address]XSCF CODE LO463ZGOLCEUQ, [place] [address]ND: 06/25/2018 Tertiary [facility] Medical Insurance:AARP-2ND TO [facility] MEDICAREPolicy Number: Repository [id number] Date:3179-77-30PS [address]FUPRMBZ, [place] [address]BO: 06/24/2018 SPECIALTY Primary [facility] Insurance:[address] SPECIAL[address] Repository [address] MARIE ma HOSPITALPolicy Number: [id number]: (040) [id number] [phone] (HP) Date:1319 [place], [place] [address]NK: 06/24/2018 Secondary [facility] Number: Repository [id number] Date:2014-08-17P [address]CTUQ CODE HF219YEWMOKNR, [place] [address]WN: 06/24/2018 Tertiary [facility] Medical Insurance:AARP-2ND TO [facility] MEDICAREPolicy Number: Repository [id number] Date:7330-06-44FL [address]KDEGSXP, [place] [address]LD: 06/17/2018 SPECIALTY Primary [facility] Insurance:[facility] [id number] [facility] SPECIALTY Repository DR MARIE ma HOSPITALPolicy Number: [id number]: (259) [id number] [phone] (HP) Date:[facility] [place], [place] [address]DO: 06/17/2018 Secondary [facility] Medical [facility] [place] [facility] Number: Repository [id number] Date:2014-08-17P [address]OAGB CODE AZ856GWKVETKXKARTHAUS, [place] [address]RQ: 06/17/2018 Tertiary VENITA Ariza Medical Insurance:AARP-2ND TO [facility] MEDICAREPolicy Number: Repository [id number] Date:7249-87-47MC [address]MRHWHII, [place] [address]UB: 05/31/2018 SPECIALTY Primary VENITA M [facility] Insurance:[facility] [id number] [facility] SPECIALTY Rep[place] [address] [place] HOSPITALPolicy Number: [id number]: (595) [id number] [phone] (HP) Date:1319 [place], [place] [address]DE: 05/31/2018 Secondary [facility] Insurance:MEDICAREPoli [facility] cy Number: Repository [id number] Date:2014-08-17P [address]MDAB CODE UF709TYJLXRAIKARTHAUS, [place] [address]HT: 05/31/2018 Tertiary VENITA Ariza Medical Insurance:AARP-2ND TO [facility] MEDICAREPolicy Number: Repository [id number] Date:3729-11-76LN [address]ROPFOGU, [place] [address]CR: 05/23/2018 VENITA Primary VENITA Capps [facility] Insurance:MEDICARE STREETDOB: Community AT [place] [address] [address] PART A BPolicy Number: [id number] [facility] [id number] Repository WESTERN Date:2017-11-22 [place], [place] [address]Boh: () 05/23/2018 Secondary VENITA Capps Insurance:AARPPolicy STREETDOB: Community Number: [id number] Hospital [id number] Repository Date:5262-94-45QW [address]EGBZBIK, [place] [address]MS: 05/23/[address] [facility] Insurance:SELF PAY [facility] Number: Effective Repository Date:2018-05-16 05/09/2018 SPECIALTY Primary VENITA Consuelo [facility] Insurance:[facility] [id number] [facility] SPECIALTY Repository DR MARIE ma HOSPITALPolicy Number: [id number]: (865) [id number] [phone] (HP) Date:[address] [place], [place] [address]KR: 05/09/2018 Secondary [facility] Medical [facility] [place] cy Number: Repository [id number] Date:2014-08-17P [address]ASTB CODE LT704QQSBXICO, [place] [address]JD: 05/09/2018 Tertiary [facility] Medical Insurance:AARP-2ND TO [facility] MEDICAREPolicy Number: Repository [id number] Date:2552-76-77NA[address] [address]TA: 05/06/2018 VENITA Primary VENITA [facility] AT [id number] E cy Number: [facility] [id number] WESTERN Date:2014-08-17 [address] [place], [place] [address]XVLC CODE [address]Rdf: 330 SX223MLAHXXMNKARTHAUS, [place] 079-[address]265 () [address]JN: 05/06/2018 Secondary [facility] Insurance:AARP-2ND TO [facility] MEDICAREPolicy Number: Repository [id number] Date:1984-70-41JK[address] [address]UW: 05/03/2018 VENITA M Primary VENITA Cordero [facility] Insurance:MEDICARE STREETDOB: Community AT [id number] E PART A BPolicy Number: [id number] Neosho Hospital [id number] Repository WESTERN Date:2018-05-03 [place], [place] [address]Gth: () 05/03/2018 Secondary VENITA Cordero [place] Insurance:AARPPolicy STREETDOB: Community Number: [id number] Hospital [id number] Repository Date:7642-92-77EZ [address]LPYWYPX, [place] [address]YY: 05/03/2018 Tertiary NOT GIVENUNK [place] Insurance:SELF PAY [facility] Number: Effective Repository Date:2018-05-03 05/03/2018 VENITA [facility]ordero [facility] Insurance:MEDICARE STREETDOB: Community AT [id number] E PART A BPolicy Number: [id number] Neosho Hospital [id number] Repository WESTERN Date:2018-05-03 [place], [place] [address]Zgb: () 05/03/2018 Secondary VENITA Cordero [place] Insurance:AARPPolicy STREETDOB: Community Number: [id number] Hospital [id number] Repository Date:3620-43-24ZF [address]JKCTRZS, [place] [address]QW: 05/03/2018 Tertiary NOT GIVENUNK [place] Insurance:SELF PAY [facility] Number: Effective Repository Date:2018-05-03 05/03/2018 VENITA Cordero Primary VENITA Cordero [facility] Insurance:MEDICARE STREETDOB: Community AT [id number] E PART A BPolicy Number: [id number] Neosho Hospital [id number] Repository WESTERN Date:2018-05-03 [place], [place] [address]Ymz: () 05/03/2018 Secondary VENITA Cordero [place] Insurance:AARPPolicy STREETDOB: Community Number: [id number] Hospital [id number] Repository Date:4846-05-59MJ [address]KDIOQVR, [place] [address]WP: 05/03/2018 Tertiary NOT GIVENUNK [place] Insurance:SELF PAY Community [facility] Hospital Number: Effective Repository Date:2018-05-03 05/03/2018 VENITA Cordero Primary VENITA Cordero [place] [facility] [place] Insurance:MEDICARE STREETDOB: Community AT [id number] E PART A BPolicy Number: [id number] [facility]osho Hospital [id number] Repository WESTERN Date:2018-05-03 [place], [place] [address]Boo: () 05/03/2018 Secondary VENITA Cordero [place] Insurance:AARPPolicy STREETDOB: Community Number: [id number] Hospital [id number] Repository Date:1938-42-32DU [address]NOITANQ, [place] [address]EI: 05/03/2018 Tertiary NOT GIVENUNK [place] Insurance:SELF PAY [facility] Number: Effective Repository Date:2018-05-03 05/03/2018 VENITA Cordero [facility] Insurance:MEDICARE STREETDOB: Community AT [id number] E PART A BPolicy Number: [id number] [facility] Hospital [id number] Repository WESTERN Date:2018-05-03 [place], [place] [address]Dgs: () 05/03/2018 Secondary VENITA Cordero [place] Insurance:AARPPolicy STREETDOB: Community Number: [id number] Hospital [id number] Repository Date:3521-24-39VX [address]WVBAWIN, [place] [address]CB: 05/03/2018 Tertiary NOT GIVENUNK [place] Insurance:SELF PAY [facility] Number: Effective Repository Date:2018-05-03 05/03/2018 VENITA Cordero Primary Insurance:SELF NOT GIVENUNK [address] PAY [facility] AT [id number] E Number: Effective [facility] Date:2018-05-03 Repository [place], [place] [address]Emu: () 05/02/2018 VENITA Cordero Primary Insurance:SELF NOT GIVENUNK [facility] AT [id number] E Number: Effective [facility] Date:2018-05-02 Repository [place], [place] [address]Beo: (HP) 05/01/2018 VENITA Cordero Primary Insurance:SELF NOT GIVENUNK [address] PAY INSURANCEPolicy Community AT [id number] E Number: Effective [facility] Date:2018-05-01 Repository [place], [place] [address]Iyk: (HP) 04/30/2018 VENITA Cordero Primary Insurance:SELF NOT GIVENUNK [place] [id number] PAY INSURANCEPolicy Community [address] Number: Effective [address] Date:2018-04-30 Repository [address]Wjv: (HP) 04/30/2018 VENITA Cordero Primary Insurance:SELF NOT GIVENUNK [place] [address] PAY INSURANCEPolicy Community AT [id number] E Number: Effective [facility] Date:2018-04-30 Repository [place], [place] [address]Hvz: (HP) 04/29/2018 VENITA Cordero Primary Insurance:SELF NOT GIVENUNK [place] [address] PAY INSURANCEPolicy Community AT [id number] E Number: Effective [facility] Date:2018-04-29 Repository [place], [place] [address]Cvd: (HP) 04/28/2018 VENITA Cordero Primary Insurance:SELF NOT GIVENUNK [address] PAY INSURANCEPolicy Community AT [id number] E Number: Effective [facility] Date:2018-04-28 Repository [place], [place] [address]Qsy: (HP) 04/26/2018 VENITA Cordero Primary Insurance:SELF NOT GIVENUNK [place] [id number] PAY INSURANCEPolicy Community [address] Number: Effective [address] Date:2018-04-26 Repository [address]Vov: (HP) 04/05/2018 SPECIALTY Primary [facility] Insurance:[facility] [id number] [facility] SPECIALTY Repository DR MARIE ma HOSPITALPolicy Number: [id number]: (516) [id number] [phone] (HP) Date: [place], [place] [address]TA: 04/05/2018 Secondary VENITA Ariza Medical Insurance:[facility]Pol[facility] cy Number: Repository [id number] Date:2014-08-17 [address]YZTZ CODE HB467IEEZLNBKKARTHAUS, [place] [address]LE: 04/05/2018 Tertiary VENITA Ariza Medical Insurance:A[facility]-2ND [place] [facility] [place] MEDICAREPolicy Number: Repository [id number] Date:3806-30-23RT [address]NEBOLCD, [place] [address]XY: 03/19/2018 VENITA Cordero Primary VENITA M Ejfry [id number] Insurance:MEDICARE STREETDOB: [facility] [address] PART A BPolicy Number: [id number] [id number] Repository [address]Qzw: (506) Date:2018-03-19 [phone] () 03/19/2018 Secondary VENITA Cordero [place] Insurance:AARolicy STREETDOB: [facility] Number: [id number] Hospital [id number] Repository Date:6370-72-96EK [address]VYELGYC, [place] [address]EB: 03/19/2018 [facility]ertiary [facility] Insurance:SELF PAY [facility] Number: Effective Repository Date:2018-03-19 03/11/2018 VENITA M Primary VENITA M [facility] STREETDOB: Insurance:MEDICARE A STREETDOB: Health System AND BPolicy Number: [id number] Repository [address] [id number] [address] [place] [address] Date: [address]Qmg: (HP) 03/11/2018 Secondary VENITA M [facility] Insurance:[facility] AARP STREETDOB: Health System SU[facility] [id number] Repository Number: [id number] Date: 03/08/2018 SPECIALTY Primary VENITA LEÓN [facility] Insurance:SELECT [facility] [id number] [facility] SPECIALTY Rep[place] [address] [place] HOSPITALPolicy Number: [id number]: (519) [id number] [phone] (HP) Date:[address] [place], [place] [address]PO: 03/08/2018 Secondary VENITA LEÓN [facility] Medical Insurance:MEDICAREPoli [facility] cy Number: Repository [id number] Date:2014-08-17P O [address]XDRN CODE HG208CYBKNTEOKARTHAUS, [place] [address]EX: 03/08/2018 Tertiary VENITA LEÓN [facility] Insurance:AARP-2ND TO [facility] MEDICAREPolicy Number: Repository [id number] Date:9848-61-62AP [address]GHOLCNV, [place] [address]CC: 03/03/2018 VENITA Cordero Primary VENITA Capps [id number] Insurance:MEDICARE STREETDOB: Community [address] PART A BPolicy Number: [id number] [id number] Repository [address]Dtk: 330) Date:2018-03-03 [phone] () 03/03/2018 Secondary VENITA Capps Insurance:AARPPolicy STREETDOB: Community Number: [id number] Hospital [id number] Repository Date:1550-44-52KP [address]JUNXXIB, [place] [address]KB: 03/03/2018 Tertiary MELINDA Capps Insurance:SELF PAY Community [facility] Number: Effective Repository Date:2018-03-03 03/03/2018 VENITA M Primary VENITA Capps [id number] Insurance:MEDICARE STREETDOB: Community [address] PART A BPolicy Number: [id number] [id number] Repository [address]Zrw: 330) Date:2018-03-03 [phone] () 03/03/2018 Secondary VENITA Cordero [place] Insurance:AARPPolicy STREETDOB: Community Number: [id number] Hospital [id number] Repository Date:4174-76-79MT [address]URENAUJ, [place] [address]ON: 03/03/2018 Tertiary NOT GIVENUNK [place] Insurance:SELF PAY [facility] Number: Effective Repository Date:2018-03-03 03/03/2018 VENITA Cordero Primary VENITA Cordero [place] [id number] Insurance:MEDICARE STREETDOB: Community [address] PART A BPolicy Number: [id number] [id number] Repository [address]Izy: (204) Date:2018-03-03 [phone] () 03/03/2018 Secondary VENITA Cordero [place] Insurance:AARPPolicy STREETDOB: Community Number: [id number] Hospital [id number] Repository Date:8108-62-69HJ [address]JWXIKSN, [place] [address]XP: 03/03/2018 Tertiary NOT GIVENUNK [place] Insurance:SELF PAY [facility] Number: Effective Repository Date:2018-03-03 03/03/2018 VENITA Cordero Primary VENITA Michaelsoster [id number] Insurance:MEDICARE STREETDOB: Community [address] PART A BPolicy Number: [id number] [id number] Repository [address]Ngy: (396) Date:2018-03-03 [phone] () 03/03/2018 Secondary VENITA Cordero [place] Insurance:AARPPolicy STREETDOB: Community Number: [id number] Hospital [id number] Repository Date:5836-16-35BY [address]XYFHLQJ, [place] [address]CB: 03/03/2018 Tertiary NOT GIVENUNK [place] Insurance:SELF PAY Community [facility] Number: Effective Repository Date:2018-03-03 03/03/2018 VENITA Cordero Primary VENITA Cordero [place] [id number] Insurance:MEDICARE STREETDOB: Community [address] PART A BPolicy Number: [id number] [id number] Repository [address]Wqw: (515) Date:2018-03-03 [phone] () 03/03/2018 Secondary VENITA Cordero [place] Insurance:AARPPolicy STREETDOB: Community Number: [id number] Hospital [id number] Repository Date:5243-27-76KX [address]BVHUZNJ, [place] [address]WT: 03/03/2018 Tertiary NOT GIVENUNK [place] Insurance:SELF PAY [facility] Number: Effective Repository Date:2018-03-03 03/03/2018 VENITA Cordero Primary VENITA Cordero [place] [id number] Insurance:MEDICARE STREETDOB: Community [address] PART A BPolicy Number: [id number] [id number] Repository [address]Bvi: (067) Date:2018-03-03 [phone] () 03/03/2018 Secondary VENITA Consuelo [place] Insurance:AARPPolicy STREETDOB: Community Number: [id number] Hospital [id number] Repository Date:5193-64-90DB [address]CJANVWI, [place] [address]XA: 03/03/2018 Tertiary NOT GIVENUNK [place] Insurance:SELF PAY [facility] Number: Effective Repository Date:2018-03-03 03/03/2018 VENITA Cordero Primary VENITA Cordero [place] [id number] Insurance:MEDICARE STREETDOB: Community [address] PART A BPolicy Number: [id number] [id number] Repository [address]Qbr: (095) Date:2018-03-03 [phone] () 03/03/2018 Secondary VENITA M [place] Insurance:AARPPolicy STREETDOB: Community Number: [id number] Hospital [id number] Repository Date:2646-63-58AB [address]CZNMYHM, [place] [address]DN: 03/03/2018 Tertiary NOT GIVENUNK [place] Insurance:SELF PAY [facility] Number: Effective Repository Date:2018-03-03 03/03/2018 VENITA Cordero Primary VENITA Capps [id number] Insurance:MEDICARE STREETDOB: Community [address] PART A BPolicy Number: [id number] [id number] Repository [address]Gvs: (227) Date:2018-03-03 [phone] () 03/03/2018 Secondary VENITA Cordero [place] Insurance:AARPPolicy STREETDOB: Community Number: [id number] Hospital [id number] Repository Date:9465-75-20UW [address]QLRPNGU, [place] [address]NX: 03/03/2018 Tertiary NOT GIVENUNK [place] Insurance:SELF PAY [facility] Number: Effective Repository Date:2018-03-03 03/03/2018 VENITA Cordero Primary VENITA Capps [id number] Insurance:MEDICARE STREETDOB: Community [address] PART A BPolicy Number: [id number] [id number] Repository [address]Gsc: (012) Date:2018-03-03 [phone] () 03/03/2018 Secondary VENITA Cordero [place] Insurance:AARPPolicy STREETDOB: Community Number: [id number] Hospital [id number] Repository Date:7790-30-46PF [address]CAXQCRP, [place] [address]ZO: 03/03/2018 Tertiary NOT GIVENUNK [place] Insurance:SELF PAY [facility] Number: Effective Repository Date:2018-03-03 02/26/2018 VENITA Cordero Primary EVNITA Michaelsoster [id number] Insurance:MEDICARE STREETDOB: Community [address] PART A BPolicy Number: [id number] [id number] Repository [address]Agy: (379) Date:2018-02-26 [phone] () 02/26/2018 Secondary VENITA Cordero [place] Insurance:AARPPolicy STREETDOB: Community Number: [id number] Hospital [id number] Repository Date:0303-89-39NC [address]UOXXLXQ, [place] [address]CQ: 02/26/2018 Tertiary NOT GIVENUNK [place] Insurance:SELF PAY Community [facility] Number: Effective Repository Date:2018-02-26 02/25/2018 VENITA Cordero Primary VENITA Cordero [place] [id number] Insurance:MEDICARE STREETDOB: Community [address] PART A BPolicy Number: [id number] [address] [id number] Repository [address]Xpi: (701) Date:2018-02-25 [phone] () 02/25/2018 Secondary VENITA Cordero [place] Insurance:AARPPolicy STREETDOB: Community Number: [id number] [facility] [id number] Repository Date:2502-90-85ZK [address]FDKYWZT, [place] [address]UJ: 02/25/2018 Tertiary NOT GIVENUNK [place] Insurance:SELF PAY [facility] Number: Effective Repository Date:2018-02-25 02/06/2018 VENITA Cordero Primary VENITA Cordero [facility] STREETDOB: Insurance:MEDICARE A STREETDOB: Health System AND BPolicy Number: [id number] Repository [address] [id number] [address] [place] [address] Date: 268[address]Viy: (HP) 02/06/2018 Secondary VENITA Cordero [facility] Insurance:[facility] AARP STREETDOB: Health System SUPPLEMENTPolicy [id number] Repository Number: [id number] Date: 02/04/2018 VENITA Cordero Primary VENITA Cordero [place] [id number] Insurance:MEDICARE STREETDOB: Community [address] PART A BPolicy Number: [id number] [address] [id number] Repository [address]Dsq: (330) Date:2018-02-04 [phone] () 02/04/2018 Secondary VENITA Cordero [place] Insurance:AARPPolicy STREETDOB: Community Number: [id number] Hospital [id number] Repository Date:9244-76-64YZ [address]AZYFUWS, [place] [address]ZG: 02/04/2018 Tertiary NOT GIVENUNK [place] Insurance:SELF PAY [facility] Number: Effective Repository Date:2018-02-04 02/04/2018 VENITA Cordero Primary VENITA Cordero [place] [id number] Insurance:MEDICARE STREETDOB: Community [address] PART A BPolicy Number: [id number] [id number] Repository [address]Ydl: (106) Date:2018-02-04 [phone] () 02/04/2018 Secondary VENITA Cordero [place] Insurance:AARPPolicy STREETDOB: Community Number: [id number] Hospital [id number] Repository Date:1254-71-64MS [address]YESSMGD, [place] [address]XC: 02/04/2018 Tertiary NOT GIVENUNK [place] Insurance:SELF PAY [facility] Number: Effective Repository Date:2018-02-04 02/04/2018 VENITA Cordero Primary VENITA Cordero [place] [id number] Insurance:MEDICARE STREETDOB: Community [address] PART A BPolicy Number: [id number] [id number] Repository [address]Kyw: (330) Date:2018-02-04 [phone] () 02/04/2018 Secondary VENITA Cordero [place] Insurance:AARPPolicy STREETDOB: Community Number: [id number] Hospital [id number] Repository Date:0938-85-98HO [address]OJPVQTZ, [place] [address]TV: 02/04/2018 Tertiary NOT GIVENUNK [place] Insurance:SELF PAY [facility] Number: Effective Repository Date:2018-02-04 02/04/2018 VENITA Cordero Primary VENITA Cordero [place] [id number] Insurance:MEDICARE STREETDOB: Community [address] PART A BPolicy Number: [id number] [id number] Repository 3[address]Ehz: (330) Date:2018-02-04 [phone] () 02/04/2018 Secondary VENITA Cordero [place] Insurance:AARPPolicy STREETDOB: Community Number: [id number] Hospital [id number] Repository Date:0967-92-84PL [address]MGSPWUQ, [place] [address]LU: 02/04/2018 Tertiary NOT GIVENUNK [place] Insurance:SELF PAY [facility] Number: Effective Repository Date:2018-02-04 02/04/2018 VENITA Cordero Primary VENITA Cordero [place] [id number] Insurance:MEDICARE STREETDOB: Community [address] PART A BPolicy Number: [id number] [id number] Repository [address]Usg: (330) Date:2018-02-04 [phone] () 02/04/2018 Secondary VENITA Cordero [place] Insurance:AARPPolicy STREETDOB: Community Number: [id number] Hospital [id number] Repository Date:6508-33-81PD [address]SHYGNNK, [place] [address]OH: 02/04/2018 Tertiary NOT GIVENUNK [place] Insurance:SELF PAY [facility] Number: Effective Repository Date:2018-02-04 02/04/2018 VENITA Cordero Primary VENITA Cordero [place] [id number] Insurance:MEDICARE STREETDOB: Community [address] PART A BPolicy Number: [id number] [id number] Repository [address]Nbd: (330) Date:2018-02-04 [phone] () 02/04/2018 Secondary VENITA Cordero [place] Insurance:AARPPolicy STREETDOB: Community Number: [id number] Hospital [id number] Repository Date:5972-28-28OB [address]PNQGMEG, [place] [address]EV: 02/04/2018 Tertiary NOT GIVENUNK [place] Insurance:SELF PAY [facility] Number: Effective Repository Date:2018-02-04 02/04/2018 VENITA Cordero Primary VENITA Michaelsoster [id number] Insurance:MEDICARE STREETDOB: Community [address] PART A BPolicy Number: [id number] [id number] Repository [address]Uva: (542) Date:2018-02-04 [phone] () 02/04/2018 Secondary VENITA Cordero [place] Insurance:AARPPolicy STREETDOB: Community Number: [id number] [id number] Repository Date:[id number] [facility] [id number], [place] [address]YV: 02/04/2018 Tertiary NOT GIVENUNK [place] Insurance:SELF PAY [facility] Effective Repository Date:2018-02-04 02/04/2018 VENITA Cordero Primary VENITA Capps [id number] Insurance:MEDICARE STREETDOB: Community [address] PART A BPolicy Number: [id number] [id number] Repository [id number]: ([phone]) Date:2018-02-04 [phone] () 02/04/2018 Secondary VENITA Cordero Jefry Insurance:AARPPolicy STREETDOB: Community Number: [id number] [id number] Repository Date:[id number] [address], [place] [address]HO: 02/04/2018 Tertiary NOT GIVENUNK [place] Insurance:SELF PAY [facility] Number: Effective Repository Date:2018-02-04 11/22/2017 VENITA Cordero Primary VENITA Michaelsoster [id number] Insurance:MEDICARE STREETDOB: Community [address] PART [address] BPolicy Number: [id number] [id number] Repository [address]Rss: [phone] Date:2017-08-30 [phone] () 11/22/2017 Secondary VENITA Capps Insurance:AARPPolicy STREETDOB: Community Number: [id number] [id number] Repository Date:[id number], [place] [address]BO: 11/22/2017 Tertiary NOT GIVENUNK [place] Insurance:SELF PAY [facility] Effective Repository Date:2017-08-30 10/25/2017 VENITA Cordero Primary VENITA Capps [id number] Insurance:MEDICARE STREETDOB: Community [address] PART A BPolicy Number: [id number] [address] [id number] Repository [address]Ctj: [phone] Date:2017-10-25 [phone] () 10/25/2017 Secondary VENITA Capps Insurance:AARPPolicy STREETDOB: Community Number: [id number] [id number] Repository Date:[id number], [place] [address]UI: 10/25/2017 Tertiary NOT GIVENUNK [place] Insurance:SELF PAY [facility] Number: Effective Repository Date:2017-10-25
== END 2018-10-08 14:59 | disposition skilled nursing facility (03) | DRG 314 ==
LOC: ED 08:36 → PCU 08:42
PROVIDERS: Nurse Practitioner Family; Admitting Provider Internal Medicine; Emergency Provider Emergency Medicine; Family Provider Family Medicine; PCP Family Medicine; Visit Provider Family Medicine
DX: T80.211A Bloodstream infection due to central venous catheter, initial encounter (principal); L89.153 Pressure ulcer of sacral region, stage 3; G93.41 Metabolic encephalopathy; A41.81 Sepsis due to Enterococcus; J96.22 Acute and chronic respiratory failure with hypercapnia; J96.21 Acute and chronic respiratory failure with hypoxia; E66.2 Morbid (severe) obesity with alveolar hypoventilation; M46.28 Osteomyelitis of vertebra, sacral and sacrococcygeal region; L97.929 Non-pressure chronic ulcer of unspecified part of left lower leg with unspecified severity; L97.919 Non-pressure chronic ulcer of unspecified part of right lower leg with unspecified severity; N39.0 Urinary tract infection, site not specified; I25.10 Atherosclerotic heart disease of native coronary artery without angina pectoris; Z16.21 Resistance to vancomycin; Z99.81 Dependence on supplemental oxygen; B96.1 Klebsiella pneumoniae [K. pneumoniae] as the cause of diseases classified elsewhere; B96.20 Unspecified Escherichia coli [E. coli] as the cause of diseases classified elsewhere; B95.7 Other staphylococcus as the cause of diseases classified elsewhere; B96.89 Other specified bacterial agents as the cause of diseases classified elsewhere; D50.9 Iron deficiency anemia, unspecified; E78.5 Hyperlipidemia, unspecified; E11.40 Type 2 diabetes mellitus with diabetic neuropathy, unspecified; J44.9 Chronic obstructive pulmonary disease, unspecified; K21.9 Gastro-esophageal reflux disease without esophagitis; Z68.32 Body mass index [BMI] 32.0-32.9, adult; Z86.718 Personal history of other venous thrombosis and embolism; Z79.899 Other long term (current) drug therapy; Z95.1 Presence of aortocoronary bypass graft; Z79.01 Long term (current) use of anticoagulants; Z87.891 Personal history of nicotine dependence; Z79.4 Long term (current) use of insulin; Z66 Do not resuscitate; I10 Essential (primary) hypertension; T81.89XA Other complications of procedures, not elsewhere classified, initial encounter; L98.499 Non-pressure chronic ulcer of skin of other sites with unspecified severity
CPT/HCPCS: 36415; 36569; 36592; 36600; 51702; 71045; 74178; 80048; 80053; 80200; 81001; 82550; 82803; 82962; 83605; 83735; 84484; 85025; 85027; 85610; 85730; 87040; 87070; 87075; 87077; 87086; 87088; 87149; 87186; 87205; 87449; 87633; 87804; 93005; 93308; 94002; 94003; 94640; 94668; 94760; 97162; 97166; 97530; 97802; 99285; J0878; J7030; J7040; Q9967; A4216; J3490